=== PATIENT | male | born 1955 | race Two or more races ===

== ENCOUNTER 2023-03-26 04:24 | Emergency (ER) | payer MEDICARE, OTHER, BC, SELFPAY ==
[2023-03-26] VITALS (10 sets, daily range): BP systolic 120–180; BP diastolic 68–100; PULSE 63–99; RESP 18–20; TEMP 36.7; O2SAT 97–100; BMI 29.1
--- NOTE | 2023-03-26 04:52 | ED_ITS ---
HPI - Epistaxis General Chief Complaint: Epistaxis Stated Complaint: nose bleed Time Seen by Provider: 03/26/23 04:51 Source: patient Mode of arrival: walk-in Limitations: no limitations History of Present Illness HPI Narrative: states bleeding right nostril since yesterday. Denies injury. No associated headache. Not short of breath. Did not tolerate nasal pincher. States it made the blood run down the back of his throat Location: Yes right nares Related Data Home Medications Medication Instructions Recorded Confirmed amlodipine 10 mg tablet 10 mg PO DAILY 03/26/23 03/26/23 hydralazine 100 mg tablet 100 mg PO TID 03/26/23 03/26/23 labetalol 200 mg tablet 200 mg PO Q12H 03/26/23 03/26/23 Previous Rx's Medication Instructions Recorded amoxicillin 500 mg capsule 500 mg PO TID #12 caps 03/26/23 Allergies Allergy/AdvReac Type Severity Reaction Status Date / Time No Known Drug Allergies Allergy Verified 03/26/23 04:32 Review of Systems ROS Status of ROS 10 or more systems reviewed and unremarkable except as noted in history and below PFSH PFS Social History Smoking status: Never smoker Exam Constitutional Vital Signs, click to edit/add: Last Vital Signs Temp 98.0 F 03/26/23 04:27 Pulse 63 03/26/23 12:54 Resp 18 03/26/23 12:54 BP 140/86 03/26/23 12:54 Pulse Ox 99 03/26/23 12:54 O2 Del Method Room Air 03/26/23 04:27 Common normals: no apparent distress, average body habitus, oriented x3, no limitations, healthy appearing, alert and well nourished [facility] [place] Common normals: normocephalic and head/scalp atraumatic Other: bleeding right nostril Eye Common normals: EOMs intact bilaterally and conjunctivae normal Respiratory Common normals: normal respiratory effort, no retractions and no use of accessory muscles Cardio Common normals: regular rate, regular rhythm, S1 normal heart sound and S2 normal heart sound Extremity Common normals: normal to inspection and full ROM Neuro Common normals: CN's II-XII intact bilaterally, moves all extremities, no focal motor deficits and no sensory deficits noted Psych Appearance: grossly normal Course Vital Signs Vital signs: Vital Signs Temperature 98.0 F 03/26/23 04:27 Pulse Rate 99 H 03/26/23 04:27 Respiratory Rate 18 03/26/23 04:27 Blood Pressure 180/98 H 03/26/23 04:27 Pulse Oximetry 100 03/26/23 04:27 Oxygen Delivery Method Room Air 03/26/23 04:27 Temperature 98.0 F 03/26/23 04:27 Pulse Rate 63 03/26/23 12:54 Respiratory Rate 18 03/26/23 12:54 Blood Pressure 140/86 03/26/23 12:54 Pulse Oximetry 99 03/26/23 12:54 Oxygen Delivery Method Room Air 03/26/23 04:27 MDM - Epistaxis MDM Narrative Medical decision making narrative: presents bleeding right nostril that started yesterday. No injury. Hgb acceptalbe and Plt. count WNL. Bleeding controlled with rhino rocket. Patient observed in the department and started bleeding again. He had sneezed and the packing extruded some. I then deflated the packing and then re seated it. The bleeding was slowing down and his care was transferred to Dr Jules at change of shift Lab Data Labs: Lab Results 03/26/23 Range/Units 05:05 WBC 9.8 (4.0-11.0) 10^3/uL RBC 3.63 L (4.70-6.10) 10^6/uL Hgb 11.4 L (14.0-18.0) g/dL Hct 34.7 L (42.0-54.0) % MCV 95.6 H (80.0-94.0) fL MCH 31.4 (25.9-34.0) pg MCHC 32.9 (29.9-35.2) g/dL RDW 14.3 (11.0-15.0) % Plt Count 231 (150-450) 10^3/uL MPV 10.7 (9.5-13.5) fL Neut % (Auto) 77.6 H (43.0-75.0) % Lymph % (Auto) 13.7 L (20.5-60.0) % [place] % (Auto) 4.7 (1.7-12.0) % Eos % (Auto) 2.5 (0.9-7.0) % Baso % (Auto) 1.1 (0.2-2.0) % Neut # (Auto) 7.6 H (1.4-6.5) 10^3/uL Lymph # (Auto) 1.4 (1.2-3.8) 10^3/uL [place] # (Auto) 0.5 (0.3-0.8) 10^3/uL Eos # (Auto) 0.3 (0.0-0.7) 10^3/uL Baso # (Auto) 0.1 (0.0-0.1) 10^3/uL Abs Immat Gran (auto) 0.04 H (0.00-0.03) 10^3/uL Imm/Tot Granulo (auto) 0.4 (0.0-0.5) % Sodium 138 (136-145) mmol/L Potassium 4.2 (3.5-5.1) mmol/L Chloride 104 (98-107) mmol/L Carbon Dioxide 24.4 (21.0-32.0) mmol/L Anion Gap 13.8 BUN 30.0 H (7.0-18.0) mg/dL Creatinine 1.48 H (0.70-1.30) mg/dL Est GFR ( Amer) 57 L (>=60) Est GFR (Non-Af Amer) 47 L (>=60) BUN/Creatinine Ratio 20.3 Glucose 133 H (74-106) mg/dL Calcium 9.2 (8.5-10.1) mg/dL Discharge Plan Discharge Chief Complaint: Epistaxis Clinical Impression: Epistaxis Patient Disposition: Home, Self-Care Time of Disposition Decision: 13:15 Condition: Good Mode of Transportation: Private Vehicle Prescriptions / Home Meds: New amoxicillin 500 mg capsule 500 mg PO TID Qty: 12 0RF No Action labetalol 200 mg tablet 200 mg PO Q12H hydralazine 100 mg tablet 100 mg PO TID amlodipine 10 mg tablet 10 mg PO DAILY Instructions: Nosebleed (ED) Additional Instructions: packing to be removed in three days. Follow-up with Dr. Rodriguez Stand Alone Forms: Portal Instructions Referrals: Physician,Non-Staff, MD [Primary Care Provider] - 1 week Discharge Date/Time: 03/26/23 13:34 Procedures ED Procedure Instructions Procedures Procedures: right nostril bleed. rhino rocket placed without incident. Tolerated well and bleeding controlled. Oral pharynx clear. Patient observed in the department
[2023-03-26 05:11] LABS: Basophils Absolute Auto 0.1 10^3/uL (0.0-0.1); Basophils Percent Auto 1.1 % (0.2-2.0); Eosinophils Absolute Auto 0.3 10^3/uL (0.0-0.7); Eosinophils Percent Auto 2.5 % (0.9-7.0); Hematocrit 34.7 % (42.0-54.0); Hemoglobin 11.4 g/dL (14.0-18.0); Immature Granulocytes Abs Auto 0.04 10^3/uL (0.00-0.03); Immature Granulocytes Pct Auto 0.4 % (0.0-0.5); Lymphocytes Absolute Auto 1.4 10^3/uL (1.2-3.8); Lymphocytes Percent Auto 13.7 % (20.5-60.0); Mean Corpuscular HGB Conc 32.9 g/dL (29.9-35.2); Mean Corpuscular Hemoglobin 31.4 pg (25.9-34.0); Mean Corpuscular Volume 95.6 fL (80.0-94.0); Mean Platelet Volume 10.7 fL (9.5-13.5); Monocytes Absolute Auto 0.5 10^3/uL (0.3-0.8); Monocytes Percent Auto 4.7 % (1.7-12.0); Neutrophils Absolute Auto 7.6 10^3/uL (1.4-6.5); Neutrophils Percent Auto 77.6 % (43.0-75.0); Platelet Count 231 10^3/uL (150-450); Red Blood Count 3.63 10^6/uL (4.70-6.10); Red Cell Distribution Width 14.3 % (11.0-15.0); White Blood Count 9.8 10^3/uL (4.0-11.0)
[2023-03-26 05:19] LABS: Anion Gap 13.8; BUN Creatinine Ratio 20.3; Calcium 9.2 mg/dL (8.5-10.1); Carbon Dioxide 24.4 mmol/L (21.0-32.0); Chloride 104 mmol/L (98-107); Estimated GFR (African America 57 (>=60); Estimated GFR (Non-African Ame 47 (>=60); Glucose 133 mg/dL (74-106); Potassium 4.2 mmol/L (3.5-5.1); Sodium 138 mmol/L (136-145)
[2023-03-26] MEDS: AMOXICILLIN 500 MG CAPSULE 1000 MG PO (06:30)
[2023-03-26] MEDS: LORAZEPAM 2 MG/ML 1 ML VIAL 1 MG IV (09:26)
--- NOTE | 2023-03-26 13:17 | ED_ITS ---
HPI - Epistaxis General Chief Complaint: Epistaxis Stated Complaint: nose bleed Time Seen by Provider: 03/26/23 04:51 Source: patient Mode of arrival: walk-in Limitations: no limitations History of Present Illness HPI Narrative: the patient was initially seen by Dr. Rapp and signed out to me after discussing the case with him thoroughly. Please see his full history and physical exam. Related Data Home Medications Medication Instructions Recorded Confirmed amlodipine 10 mg tablet 10 mg PO DAILY 03/26/23 03/26/23 hydralazine 100 mg tablet 100 mg PO TID 03/26/23 03/26/23 labetalol 200 mg tablet 200 mg PO Q12H 03/26/23 03/26/23 Previous Rx's Medication Instructions Recorded amoxicillin 500 mg capsule 500 mg PO TID #12 caps 03/26/23 Allergies Allergy/AdvReac Type Severity Reaction Status Date / Time No Known Drug Allergies Allergy Verified 03/26/23 04:32 PFSH PFSH Social History Smoking status: Never smoker Exam Constitutional Vital Signs, click to edit/add: Last Vital Signs Temp 98.0 F 03/26/23 04:27 Pulse 63 03/26/23 12:54 Resp 18 03/26/23 12:54 BP 140/86 03/26/23 12:54 Pulse Ox 99 03/26/23 12:54 O2 Del Method Room Air 03/26/23 04:27 Course Vital Signs Vital signs: Vital Signs Temperature 98.0 F 03/26/23 04:27 Pulse Rate 99 H 03/26/23 04:27 Respiratory Rate 18 03/26/23 04:27 Blood Pressure 180/98 H 03/26/23 04:27 Pulse Oximetry 100 03/26/23 04:27 Oxygen Delivery Method Room Air 03/26/23 04:27 Temperature 98.0 F 03/26/23 04:27 Pulse Rate 63 03/26/23 12:54 Respiratory Rate 18 03/26/23 12:54 Blood Pressure 140/86 03/26/23 12:54 Pulse Oximetry 99 03/26/23 12:54 Oxygen Delivery Method Room Air 03/26/23 04:27 MDM - Epistaxis MDM Narrative Medical decision making narrative: the patient had already been packed in the right [place]. He had some subsequent bleeding and that packing self extruded. A new 5.5 cm anterior packing was applied by me and inflated with no further bleeding but this one also had self extruded partially so it was removed. A 7 cm anterior posterior packing was then applied and this one remained in place and he didn't have any subsequent significant bleeding. He was observed here and seemed to be anxious. He was given IV Ativan and then was able to rest and ultimately was discharged home. He'll have the packing removed in three days and was prescribed prophylactic amoxicillin. Findings are discussed with the patient and his family. Differential Diagnosis Differential diagnosis: Likely anterior epistaxis and posterior epistaxis Lab Data Attestation: I reviewed the patient's lab results. Labs: Lab Results 03/26/23 Range/Units 05:05 WBC 9.8 (4.0-11.0) 10^3/uL RBC 3.63 L (4.70-6.10) 10^6/uL Hgb 11.4 L (14.0-18.0) g/dL Hct 34.7 L (42.0-54.0) % MCV 95.6 H (80.0-94.0) fL MCH 31.4 (25.9-34.0) pg MCHC 32.9 (29.9-35.2) g/dL RDW 14.3 (11.0-15.0) % Plt Count 231 (150-450) 10^3/uL MPV 10.7 (9.5-13.5) fL Neut % (Auto) 77.6 H (43.0-75.0) % Lymph % (Auto) 13.7 L (20.5-60.0) % [place] % (Auto) 4.7 (1.7-12.0) % Eos % (Auto) 2.5 (0.9-7.0) % Baso % (Auto) 1.1 (0.2-2.0) % Neut # (Auto) 7.6 H (1.4-6.5) 10^3/uL Lymph # (Auto) 1.4 (1.2-3.8) 10^3/uL [place] # (Auto) 0.5 (0.3-0.8) 10^3/uL Eos # (Auto) 0.3 (0.0-0.7) 10^3/uL Baso # (Auto) 0.1 (0.0-0.1) 10^3/uL Abs Immat Gran (auto) 0.04 H (0.00-0.03) 10^3/uL Imm/Tot Granulo (auto) 0.4 (0.0-0.5) % Sodium 138 (136-145) mmol/L Potassium 4.2 (3.5-5.1) mmol/L Chloride 104 (98-107) mmol/L Carbon Dioxide 24.4 (21.0-32.0) mmol/L Anion Gap 13.8 BUN 30.0 H (7.0-18.0) mg/dL Creatinine 1.48 H (0.70-1.30) mg/dL Est GFR ( Amer) 57 L (>=60) Est GFR (Non-Af Amer) 47 L (>=60) BUN/Creatinine Ratio 20.3 Glucose 133 H (74-106) mg/dL Calcium 9.2 (8.5-10.1) mg/dL Discharge Plan Discharge Chief Complaint: Epistaxis Clinical Impression: Epistaxis Patient Disposition: Home, Self-Care Time of Disposition Decision: 13:15 Condition: Good Mode of Transportation: Private Vehicle Prescriptions / Home Meds: New amoxicillin 500 mg capsule 500 mg PO TID Qty: 12 0RF No Action labetalol 200 mg tablet 200 mg PO Q12H hydralazine 100 mg tablet 100 mg PO TID amlodipine 10 mg tablet 10 mg PO DAILY Instructions: Nosebleed (ED) Additional Instructions: packing to be removed in three days. Follow-up with Dr. Rodriguez Stand Alone Forms: Portal Instructions Referrals: Physician,Non-Staff, MD [Primary Care Provider] - 1 week
== END 2023-03-26 13:34 | disposition home or self-care (01) ==
PROVIDERS: Internal Medicine; Emergency Provider Emergency Medicine
DX: R04.0 Epistaxis (principal); Z79.899 Other long term (current) drug therapy
CPT/HCPCS: 30901; 36415; 80048; 85025; 96374; 99284

== ENCOUNTER 2023-03-29 12:48 | Emergency (ER) | payer MEDICARE, BC, OTHER, SELFPAY ==
[2023-03-29 13:12] VITALS: BP 160/125; PULSE 58; RESP 18; TEMP 36.8; O2SAT 100; BMI 29.1
--- NOTE | 2023-03-29 14:02 | ED.GENADUL1 ---
HPI - General Adult General Chief complaint: Recheck/Abnormal Lab/Rx Stated complaint: [employer] REMOVAL Time Seen by Provider: 03/29/23 13:16 Source: patient Mode of arrival: walk-in Limitations: no limitations History of Present Illness HPI narrative: 67-year-old male presented as instructed to have packing removed from his nose. He had his packing placed three days ago and hasn't had any troubles. Related Data Home Medications Medication Instructions Recorded Confirmed amlodipine 10 mg tablet 10 mg PO DAILY 03/26/23 03/26/23 hydralazine 100 mg tablet 100 mg PO TID 03/26/23 03/26/23 labetalol 200 mg tablet 200 mg PO Q12H 03/26/23 03/26/23 Previous Rx's Medication Instructions Recorded amoxicillin 500 mg capsule 500 mg PO TID #12 caps 03/26/23 Allergies Allergy/AdvReac Type Severity Reaction Status Date / Time No Known Drug Allergies Allergy Verified 03/26/23 04:32 Review of Systems ROS Narrative A ten point review of systems is negative except as noted above. PFSH PFSH Social History Smoking status: Never smoker Exam Narrative Exam Narrative: Nurses note and vital signs reviewed and patient is not hypoxic. General: The patient appears well and in no apparent distress. Patient is resting comfortably on cart. Skin: Warm, dry, no pallor noted. There is no rash noted. Head: Normocephalic, atraumatic Eye: Normal conjunctiva, no drainage, Ears, Nose, Mouth, and Throat: oral mucosa is moist. packing in place in the right nare Cardiovascular: not tachycardic Respiratory: Patient is in no distress, no accessory muscle use, lungs are clear to auscultation, no wheezing, rales or rhonchi Back: non-tender GI: nontender Musculoskeletal: The patient has no evidence of calf tenderness, no pitting edema, symmetrical pulses noted bilaterally Neurological: A&O, normal speech Psychiatric: Cooperative Constitutional Vital Signs, click to edit/add: Last Vital Signs Temp 98.3 F 03/29/23 13:12 Pulse 58 L 03/29/23 13:12 Resp 18 03/29/23 13:12 BP 160/125 H 03/29/23 13:12 Pulse Ox 100 03/29/23 13:12 O2 Del Method Room Air 03/29/23 13:12 Course Vital Signs Vital signs: Vital Signs Temperature 98.3 F 03/29/23 13:12 Pulse Rate 58 L 03/29/23 13:12 Respiratory Rate 18 03/29/23 13:12 Blood Pressure 160/125 H 03/29/23 13:12 Pulse Oximetry 100 03/29/23 13:12 Oxygen Delivery Method Room Air 03/29/23 13:12 Temperature 98.3 F 03/29/23 13:12 Pulse Rate 58 L 03/29/23 13:12 Respiratory Rate 18 03/29/23 13:12 Blood Pressure 160/125 H 03/29/23 13:12 Pulse Oximetry 100 03/29/23 13:12 Oxygen Delivery Method Room Air 03/29/23 13:12 Medical Decision Making MDM Narrative Medical decision making narrative: I have removed his packing. He was observed for and adequate amount of time and he had no further bleeding and he is able to be discharged. Discharge Plan Discharge Chief Complaint: Recheck/Abnormal Lab/Rx Clinical Impression: Encounter for removal of nasal packing Patient Disposition: Home, Self-Care Time of Disposition Decision: 14:01 Condition: Good Mode of Transportation: Private Vehicle Prescriptions / Home Meds: No Action labetalol 200 mg tablet 200 mg PO Q12H hydralazine 100 mg tablet 100 mg PO TID amlodipine 10 mg tablet 10 mg PO DAILY amoxicillin 500 mg capsule 500 mg PO TID Qty: 12 0RF Instructions: Nosebleed (ED) Additional Instructions: Follow-up with Dr. Rodriguez Stand Alone Forms: Portal Instructions Referrals: Physician,Non-Staff, MD [Primary Care Provider] - 1 week
== END 2023-03-29 14:13 | disposition home or self-care (01) ==
PROVIDERS: Emergency Provider Emergency Medicine
DX: Z48.00 Encounter for change or removal of nonsurgical wound dressing (principal)
CPT/HCPCS: 99281

== ENCOUNTER 2023-05-16 13:50 | Observation (INO) | payer MEDICARE, OTHER, BC, SELFPAY ==
[2023-05-16] VITALS (67 sets, daily range): BP systolic 127–194; BP diastolic 83–152; PULSE 69–147; RESP 3–24; TEMP 36.8–37; O2SAT 71–100; BMI 23.0; BMI 26.3
--- NOTE | 2023-05-16 14:23 | XR_ITS ---
The [address] [address] Patient Name: OXANA JOYA MRN: [id number] date: 1955 Sex: M Assigned Patient Location: ER Current Patient Location: ER Accession/Order Number: [id number] Exam Date: 05/16/2023 14:41 Report Date: 05/16/2023 14:58 At the request of: MEETA ALVARADO Procedure: XR chest 1V EXAM: XR chest 1V HISTORY: CHF COMPARISON: Chest study dated 09/16/2015 TECHNIQUE: AP view of the chest was obtained with portable technique at 2:38 PM. FINDINGS: Heart is mildly enlarged. No evidence of consolidated infiltrate. Mild blunting of the right costophrenic angle suggesting small pleural effusion. Slight prominence of interstitial markings may represent edema related to minimal congestive changes. Findings compatible with small scattered calcified granulomas. No obvious pneumothorax. Mild degenerative changes in the dorsal spine. XR/XR chest 1V IMPRESSION: Mild cardiomegaly. Consider possible minimal congestive changes. Likely small scattered calcified granulomas as noted. Electronically authenticated by: EVAN BROWNLEE Date: 05/16/2023 14:58
--- NOTE | 2023-05-16 14:23 | ECG_ITS ---
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
--- NOTE | 2023-05-16 14:23 | US_ITS ---
The [place] [id number] Patient Name: OXANA JOYA MRN: [id number] date: 1955 Sex: M Assigned Patient Location: ER Current Patient Location: ER Accession/Order Number: [id number] Exam Date: 05/16/2023 15:30 Report Date: 05/16/2023 16:30 At the request of: MEETA ALVARADO Procedure: US venous doppler LE BI EXAMINATION: US venous doppler LE BI HISTORY: DVT COMPARISON: None. TECHNIQUE: Venous duplex examination performed using B-mode, color flow and spectral analysis. FINDINGS: Bilateral external iliac, common femoral, femoral and popliteal veins are patent by color flow evaluation and lanier scale imaging with compressibility. Visualized portions of the bilateral posterior tibial and peroneal veins are compressible with color flow. Bilateral subcutaneous edema. US/US venous doppler LE BI IMPRESSION: Negative for bilateral lower extremity DVT. Electronically authenticated by: MATTHEW CARDOSO Date: 05/16/2023 16:30
--- NOTE | 2023-05-16 14:31 | ED_ITS ---
HPI - General Adult General Chief complaint: Arrhythmia/Palpitations Stated complaint: bilateral leg swelling Time Seen by Provider: 05/16/23 14:00 Source: patient Mode of arrival: walk-in History of Present Illness HPI narrative: Patient is a 67-year-old male with a history of A-fib and previous CVA who presents to the emergency department with his Family member for the evaluation of bilateral lower extremity swelling over the last several days. He reports significant fluid drainage from the legs. He reports shortness of breath on exertion. He denies fevers, chest pain, nausea, vomiting. He takes a baby aspirin daily, he is noted to be in rapid A-fib on arrival to the ER. His family member states that he had a cardioversion for A-fib approximately 3 years ago, he was on anticoagulation but can no longer afford it so he stopped taking it approximately 2 years ago. Related Data Home Medications Medication Instructions Recorded Confirmed amlodipine 10 mg tablet 10 mg PO DAILY 03/26/23 05/16/23 hydralazine 100 mg tablet 100 mg PO TID 03/26/23 05/16/23 labetalol 200 mg tablet 200 mg PO Q12H 03/26/23 05/16/23 aspirin 81 mg tablet,delayed 81 mg PO DAILY 05/16/23 05/16/23 release (Adult Low Dose Aspirin) Allergies Allergy/AdvReac Type Severity Reaction Status Date / Time No Known Drug Allergies Allergy Verified 03/26/23 04:32 Review of Systems ROS Constitutional Denies: fever or chills Ears, nose, mouth, and throat Denies: throat pain or nasal congestion Cardiovascular Denies: chest pain Respiratory Reports: shortness of breath; Denies: cough Gastrointestinal Denies: nausea or vomiting Genitourinary Denies: painful urination Musculoskeletal Reports: extremity swelling; Denies: back pain or neck pain Integumentary/Breast Denies: rash Neurological Denies: headache Endocrine Denies: excessive urination [facility] Medical History (Updated 05/16/23 @ 15:41 by KRYSTYNA Espinoza) Atrial fibrillation ?I48.91 - Unspecified atrial fibrillation (ICD-10) Hypertension ?I10 - Essential (primary) hypertension (ICD-10) Social History Smoking status: Never smoker Exam Narrative Exam Narrative: Gen.: Awake, alert, in no distress Head: Normocephalic, atraumatic ENT: Moist mucous membranes Respiratory: No respiratory distress, lungs clear bilaterally Cardio: Irregular, tachycardia Extremities: Moves extremities equally, Bilateral lower extremities are edematous, pitting edema noted with multiple small open wounds, no surrounding erythema or blanching erythema of the extremities. Psych: Normal mood and affect Neuro: No focal neuro deficit Skin: Warm, dry, intact Constitutional Vital Signs, click to edit/add: Last Vital Signs Temp 98.6 F 05/16/23 14:00 Pulse 84 05/16/23 15:30 Resp 14 05/16/23 15:30 BP 150/100 H 05/16/23 14:58 Pulse Ox 98 05/16/23 15:10 O2 Del Method Room Air 05/16/23 14:00 Course Vital Signs Vital signs: Vital Signs Temperature 98.6 F 05/16/23 14:00 Pulse Rate 70 05/16/23 14:00 Respiratory Rate 18 05/16/23 14:00 Blood Pressure 149/128 H 05/16/23 14:00 Pulse Oximetry 98 05/16/23 14:00 Oxygen Delivery Method Room Air 05/16/23 14:00 Temperature 98.6 F 05/16/23 14:00 Pulse Rate 84 05/16/23 15:30 Respiratory Rate 14 05/16/23 15:30 Blood Pressure 150/100 H 05/16/23 14:58 Pulse Oximetry 98 05/16/23 15:10 Oxygen Delivery Method Room Air 05/16/23 14:00 Medical Decision Making MDM Narrative Medical decision making narrative: Studies reviewed and noted showing the patient has significantly elevated BNP but normal troponin and stable chronic kidney disease. He was given IV Cardizem with significant improvement of his heart rate and some improvement of his blood pressure. He was given a shot of Lovenox with the Cardizem. Ultrasound performed for the lower extremities to rule out DVT and chest x-ray shows cardiomegaly with mild pulmonary vascular congestion. Patient will be admitted for diuresis, Areans catheter placed and he is admitted to the hospitalist. Bumex to be initiated by Dr. Nam. Medical Records Medical records reviewed: Yes I reviewed the patient's medical records Lab Data Lab results reviewed: Yes I reviewed the patient's lab results Labs: Lab Results 05/16/23 Range/Units 14:20 WBC 10.7 (4.0-11.0) 10^3/uL RBC 3.78 L (4.70-6.10) 10^6/uL Hgb 9.6 L (14.0-18.0) g/dL Hct 31.9 L (42.0-54.0) % MCV 84.4 (80.0-94.0) fL MCH 25.4 L (25.9-34.0) pg MCHC 30.1 (29.9-35.2) g/dL RDW 17.9 H (11.0-15.0) % Plt Count 293 (150-450) 10^3/uL MPV 10.4 (9.5-13.5) fL Neut % (Auto) 81.5 H (43.0-75.0) % Lymph % (Auto) 9.6 L (20.5-60.0) % [place] % (Auto) 7.1 (1.7-12.0) % Eos % (Auto) 0.6 L (0.9-7.0) % Baso % (Auto) 0.8 (0.2-2.0) % Neut # (Auto) 8.8 H (1.4-6.5) 10^3/uL Lymph # (Auto) 1.0 L (1.2-3.8) 10^3/uL [place] # (Auto) 0.8 (0.3-0.8) 10^3/uL Eos # (Auto) 0.1 (0.0-0.7) 10^3/uL Baso # (Auto) 0.1 (0.0-0.1) 10^3/uL Abs Immat Gran (auto) 0.04 H (0.00-0.03) 10^3/uL Imm/Tot Granulo (auto) 0.4 (0.0-0.5) % PT 11.3 (9.0-11.6) sec INR 1.07 Sodium 137 (136-145) mmol/L Potassium 3.7 (3.5-5.1) mmol/L Chloride 105 (98-107) mmol/L Carbon Dioxide 24.4 (21.0-32.0) mmol/L Anion Gap 11.3 BUN 23.0 H (7.0-18.0) mg/dL Creatinine 1.46 H (0.70-1.30) mg/dL Est GFR ( Amer) 58 L (>=60) Est GFR (Non-Af Amer) 48 L (>=60) BUN/Creatinine Ratio 15.8 Glucose 115 H (74-106) mg/dL Lactate 1.7 (0.4-2.0) mmol/L Calcium 8.2 L (8.5-10.1) mg/dL Total Bilirubin 0.5 (0.2-1.0) mg/dL AST 22 (15-37) U/L ALT 41 (16-63) U/L Alkaline Phosphatase 84 (46-116) U/L Troponin I High Sens 31.4 (4.0-76.1) pg/mL NT-Pro-B Natriuret Pep 9141.0 H* (<=900.0) pg/mL Total Protein 6.5 (6.4-8.2) g/dL Albumin 2.7 L (3.4-5.0) g/dL Globulin 3.8 g/dL Albumin/Globulin Ratio 0.7 Imaging Data Chest x-ray: Attestation: I have reviewed the pertinent imaging results. Radiologist's impression: ITS Impressions Chest X-Ray 05/16/23 14:23 IMPRESSION: Mild cardiomegaly. Consider possible minimal congestive changes. Likely small scattered calcified granulomas as noted. Electronically authenticated by: EVAN BROWNLEE Date: 05/16/2023 14:58 ECG Data Attestation: I personally reviewed and interpreted this ECG as follows: (Atrial fibrillation with rapid ventricular response at a rate of [address] depression and no acute ST elevation or ectopy. EKG reviewed by attending physician) Discharge Plan Discharge Chief Complaint: Arrhythmia/Palpitations Clinical Impression: CHF (congestive heart failure), Edema, peripheral, Atrial fibrillation with rapid ventricular response Patient Disposition: Admitted as Observation Time of Disposition Decision: 15:41
[2023-05-16 14:40] LABS: Basophils Absolute Auto 0.1 10^3/uL (0.0-0.1); Basophils Percent Auto 0.8 % (0.2-2.0); Eosinophils Absolute Auto 0.1 10^3/uL (0.0-0.7); Eosinophils Percent Auto 0.6 % (0.9-7.0); Hematocrit 31.9 % (42.0-54.0); Hemoglobin 9.6 g/dL (14.0-18.0); Immature Granulocytes Abs Auto 0.04 10^3/uL (0.00-0.03); Immature Granulocytes Pct Auto 0.4 % (0.0-0.5); Lymphocytes Percent Auto 9.6 % (20.5-60.0); Mean Corpuscular HGB Conc 30.1 g/dL (29.9-35.2); Mean Corpuscular Hemoglobin 25.4 pg (25.9-34.0); Mean Corpuscular Volume 84.4 fL (80.0-94.0); Mean Platelet Volume 10.4 fL (9.5-13.5); Monocytes Absolute Auto 0.8 10^3/uL (0.3-0.8); Monocytes Percent Auto 7.1 % (1.7-12.0); Neutrophils Absolute Auto 8.8 10^3/uL (1.4-6.5); Neutrophils Percent Auto 81.5 % (43.0-75.0); Platelet Count 293 10^3/uL (150-450); Red Blood Count 3.78 10^6/uL (4.70-6.10); Red Cell Distribution Width 17.9 % (11.0-15.0); White Blood Count 10.7 10^3/uL (4.0-11.0)
[2023-05-16] MEDS: DILTIAZEM HCL 25 MG/5 ML VIAL 10 MG IV ×2 (14:43→18:41)
[2023-05-16] MEDS: ENOXAPARIN SODIUM 80 MG/0.8 ML SYRINGE SUBQ (14:44)
[2023-05-16 14:54] LABS: INR 1.07; Prothrombin Time 11.3 sec (9.0-11.6)
[2023-05-16 14:56] LABS: Alanine Aminotransferase 41 U/L (16-63); Albumin Globulin Ratio 0.7; Albumin Level 2.7 g/dL (3.4-5.0); Alkaline Phosphatase 84 U/L (46-116); Anion Gap 11.3; Aspartate Amino Transferase 22 U/L (15-37); BUN Creatinine Ratio 15.8; Bilirubin Total 0.5 mg/dL (0.2-1.0); Calcium 8.2 mg/dL (8.5-10.1); Carbon Dioxide 24.4 mmol/L (21.0-32.0); Chloride 105 mmol/L (98-107); Estimated GFR (African America 58 (>=60); Estimated GFR (Non-African Ame 48 (>=60); Globulin 3.8 g/dL; Glucose 115 mg/dL (74-106); Potassium 3.7 mmol/L (3.5-5.1); Sodium 137 mmol/L (136-145); Total Protein 6.5 g/dL (6.4-8.2)
[2023-05-16 14:58] LABS: Lactate/Lactic Acid 1.7 mmol/L (0.4-2.0)
[2023-05-16 14:59] LABS: Troponin I High Sensitivity 31.4 pg/mL (4.0-76.1)
--- NOTE | 2023-05-16 16:38 | CA_ITS ---
Patient Name: OXANA JOYA MR#: [id number] : 1955 Exam Date: 05/17/2023 Ordering Doctor: DR RAMON SUTHERLAND . ECHOCARDIOGRAM REPORT PROCEDURE: CA ECHO DOPPLER COMPLETE INDICATIONS: Dyspnea, atrial fibrillation, congestive heart failure, hypertension, chronic kidney disease COMPARISON: None. DESCRIPTION: COMPLETE ECHOCARDIOGRAM Real-time transthoracic echocardiography with 2D, M-mode, spectral and color flow Doppler performed. QUALITY: Technical quality was good. 72 , 169#, BSA 1.98 m2 LEFT VENTRICLE: Normal chamber size. Moderate concentric left ventricular hypertrophy. LV EF: Global left ventricular systolic function is mildly reduced; visually estimated ejection fraction is 40-45%. Diffuse hypokinesis. DIASTOLIC: Not adequately assessed due to heart rhythm. ATRIAL SEPTUM: Visually appears intact. LEFT ATRIUM: Severe dilatation. RIGHT ATRIUM: Severe dilatation. RIGHT VENTRICLE: Moderate dilatation. Systolic function appears reduced. TRICUSPID VALVE: Normal mobility and thickness. Mild regurgitation. Doppler studies reveal mildly (35-45) elevated right sided pressures. RVSP 36 mmHg MITRAL VALVE: Normal mobility and thickness. Mild mitral annular calcification. Trivial mitral regurgitation. AORTIC VALVE: Normal trileaflet appearance. Thickened aortic valve. Normal leaflet mobility. No evidence of aortic valve stenosis. Trivial aortic regurgitation. AORTIC ROOT: Poorly seen; appears mildly enlarged. PULMONIC VALVE: Normal thickness and mobility. No stenosis. No regurgitation. PERICARDIUM: No evidence of pericardial effusion. IVC: IVC is normal in size with no collapse. CONCLUSION: 1. Global left ventricular systolic function is mildly reduced; visually estimated ejection fraction is 40 to 45% 2. The right ventricle is moderately dilated with reduced systolic function 3. Severe biatrial enlargement 4. Moderately increased left ventricular wall thickness 5. Mild tricuspid regurgitation 6. Mild elevated right ventricular systolic pressure; RVSP 36 mmHg Adult Echocardiography Procedure Report Left Ventricle LVEDD (3.7 - 5.6 cm): 4.65 cm LVESD (2.2 - 4.0 cm): 3.36 cm LVIVS thickness (0.6 - 1.2 cm): 1.28 cm LVPW thickness (0.5 - 1.0 cm): 1.46 cm LVOT Max Gradient: 2.02 mm[Hg], 2.75 mm[Hg] LVOT Area (cm2): 0.77 m/s Peak Velocity (LVOT): 0.71 m/s, 0.83 m/s LVOT Diameter 2.43 cm Left Ventricular Ejection Fraction: 38.61 % Left Atrium LA Volume Index (2D A2C): 74.83 ml/m2 Left Atrium Systolic Dimension: 4.10 cm Mitral Valve Mitral Valve E-Wave Peak Velocity: 0.71 m/s Right Ventricle Aorta AO Root Diam: 4.08 cm Aortic Valve AoV Area (Peak [place]in): 2.89 cm2, 3.00 cm2, 2.80 cm2 Peak Velocity(Antegrade Flow): 1.09 m/s, 1.37 m/s Peak Gradient(Antegrade Flow): 4.79 mm[Hg], 7.49 mm[Hg] Tricuspid Valve Peak Velocity (Regurgitant Flow): 2.62 m/s Pulmonic Valve Mean Gradient: 1.47 mm[Hg], 1.60 mm[Hg] Mean Velocity: 0.59 m/s, 0.61 m/s Peak Velocity: 0.77 m/s, 0.83 m/s Peak Gradient: 2.78 mm[Hg], 2.16 mm[Hg], 2.66 mm[Hg] Right Atrium Right Atrium Systolic Pressure: 85.03 ml, 85.03 ml Dictated by: Tameka Contreras M.D. on 05/18/2023 at 08:56 Approved by: Tameka Contreras M.D. on 05/18/2023 at 09:00
--- NOTE | 2023-05-16 16:44 | P.HP_ITS ---
H&P: HPI History of Present Illness Chief complaint: bilateral leg swelling CHF Peripheral Edema A Fib Narrative: Asked to see patient in ER secondary to increasing shortness of breath and patient found to have acute combined congestive heart failure. Patient denies chest pain, just the shortness of breath. So far troponins in ER negative. Patient will be admitted for workup and treatment of same Review of Systems ROS Status of ROS 10 or more systems reviewed and unremark able except as noted in history and below [facility] Medical History (Updated 05/16/23 @ 15:41 by KRYSTYNA Espinoza) Atrial fibrillation ?I48.91 - Unspecified atrial fibrillation (ICD-10) Hypertension ?I10 - Essential (primary) hypertension (ICD-10) Social History Smoking status: Never smoker Meds Home Medications and Allergies Home Medications Medication Instructions Recorded Confirmed Type amlodipine 10 mg tablet 10 mg PO DAILY 03/26/23 05/16/23 History hydralazine 100 mg tablet 100 mg PO TID 03/26/23 05/16/23 History labetalol 200 mg tablet 200 mg PO Q12H 03/26/23 05/16/23 History aspirin 81 mg tablet,delayed 81 mg PO DAILY 05/16/23 05/16/23 History release (Adult Low Dose Aspirin) Allergies Allergy/AdvReac Type Severity Reaction Status Date / Time No Known Drug Allergies Allergy Verified 03/26/23 04:32 Exam Constitutional Vital Signs, click to edit/add: Last Vital Signs Temp 98.6 F 05/16/23 14:00 Pulse 84 05/16/23 15:30 Resp 14 05/16/23 15:30 BP 150/100 H 05/16/23 14:58 Pulse Ox 98 05/16/23 15:10 O2 Del Method Room Air 05/16/23 14:00 Documenting provider has reviewed patient's vital signs: yes Common normals: no apparent distress Chest Common normals: inspection of chest normal Respiratory Common normals: normal respiratory effort Effort & inspection: able to speak in complete sentences Auscultation: rales (lower 1/3) Cardio Common normals: irregular rate and irregular rhythm Rate: tachycardic Rhythm: abnormal rhythm GI Common normals: Normal to inspection, nondistended, normoactive bowel sounds present Extremity Other: 3+ edema with possible early cellulitis open wound Left leg Results Labs Labs: Short CBC 05/16/23 Range/Units 14:20 WBC 10.7 (4.0-11.0) 10^3/uL Hgb 9.6 L (14.0-18.0) g/dL Hct 31.9 L (42.0-54.0) % Plt Count 293 (150-450) 10^3/uL BMP 05/16/23 14:20 Sodium 137 Potassium 3.7 Chloride 105 Carbon Dioxide 24.4 BUN 23.0 H Creatinine 1.46 H Glucose 115 H Calcium 8.2 L Liver Function 05/16/23 Range/Units 14:20 Total Bilirubin 0.5 (0.2-1.0) mg/dL AST 22 (15-37) U/L ALT 41 (16-63) U/L Alkaline Phosphatase 84 (46-116) U/L Albumin 2.7 L (3.4-5.0) g/dL Assessment and Plan Assessment and Plan (1) Atrial fibrillation with rapid ventricular response: (2) Edema, peripheral: (3) CHF (congestive heart failure): Plan Tachycardia with atrial fibrillation with rapid ventricular response with uncontrolled hypertension resulting in acute combined congestive heart failure with significantly elevated BNP. So far troponins are negative, will trend troponins, check echocardiogram, Bumex drip for diuresis. If patient improves quickly possible discharge as quickly as tomorrow. Start patient on Eliquis. Need to see about getting him a prescription for this as an outpatient if getting it covered through his insurance Uncontrolled hypertension-start with home medications, not sure he has been taking them consistently Cellulitis possibly left lower extremity. Will start IV antibiotics and consult to wound therapy Chronic kidney disease stage II-monitor daily, likely complicated with the above treatment for his atrial fibrillation and acute combined congestive heart failure Will start patient off as observation, 50-50 chance of being discharged tomorrow.
--- OUTSIDE RECORDS SUMMARY | 2023-05-16 16:59 | XMS_ITS | CCD ---
Author Name Unknown Address [address] [place] [address] Organization [facility] Care Team Providers Care Brand Marketing Coordinator Name Role Phone MARIBEL, DOCTOR Primary Care Unavailable PAY, PETR Admitting Unavailable PAY, PETR Attending Unavailable PAY, PETR Consulting Unavailable Problems Problem Classification Problem Date Documented Date Episodic/Chronic Cardiac dysrhythmias (1 source) Unspecified atrial fibrillation; Translations: [UNSPECIFIED ATRIAL FIBRILLATION] Onset: 9 Chronic Disorders of lipid metabolism (1 source) Pure hypercholesterolemia, unspecified; Translations: [PURE HYPERCHOLESTEROLEMIA UNSPEC] Onset: 9 Essential hypertension (1 source) Essential (primary) hypertension; Translations: [ESSENTIAL PRIMARY HYPERTENSION] Onset: 9 Chronic Fluid and electrolyte disorders (2 sources) Dehydration; Translations: [Hypokalemia] Onset: Episodic Genitourinary symptoms and ill-defined conditions (3 sources) Hematuria, unspecified; Translations: [HEMATURIA UNSPECIFIED] Onset: 9 Episodic Malaise and fatigue (1 source) Other fatigue; Translations: [OTHER FATIGUE] Onset: 9 Episodic Other aftercare (1 source) 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; Translations: [ASSISTED CURRNT USE ANTICOAGULANTS] Onset: 9 Episodic Other aftercare (1 source) detention (current) use of aspirin; Translations: [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 CURRENT USE OF ASPIRIN] Onset: 9 Episodic Other aftercare (1 source) Other longterm (current) drug therapy; Translations: [OTH ASSISTED CURRENT DRUG THERAPY] Onset: 9 Episodic Urinary tract infections (1 source) Acute cystitis with hematuria; Translations: [ACUTE CYSTITIS WITH HEMATURIA] Onset: 9 Episodic Results Test Name Value Interpretation Reference Range Facil ity CULTURE URINEon 12-16-2018 CULTURE URINE Isolate 1 Escherichia coli >100,000 cfu/ml of ORGANISM 1 Escherichia coli ANTIBIOTIC M.I.C RX STATUS Ampicillin 8 S F Ampicillin/Sulbactam 4 S F Piperacillin/Tazobac bedolla <=4 S F Cefazolin <=4 S F Ceftazidime <=1 S F Ceftriaxone <=1 S F Ertapenem <=0.5 S F Imipenem <=0.25 S F Amikacin <=2 S F Gentamicin <=1 S F Tobramycin <=1 S F Ciprofloxacin <=0.25 S F Levofloxacin <=0.12 S F Nitrofurantoin <=16 S F Trimethoprim/Sulfame thoxazole <=20 S F Normal [facility] Comment on above: Performed By: #### U RCX #### [facility] [address] [place] [address] Rahul Nolan CARDIAC LEONOR ADMITon 019 CK [Catalytic activity/Vol] 116 U/L Normal 55-170 [facility] Comment on above: Performed By: #### L IVER, BMP, CMADM, LIPA #### [facility] [address] [place], [place] [address] Rahul Nolan CK.MB [Mass/Vol] 1.36 ng/mL Normal <=2.37 [facility] Comment on above: Performed By: #### L IVER, BMP, CMADM, LIPA #### [facility] [address] [place], [place] [address] Rahulkeya Doveen INR Coag (Bld) [Relative time] SEE BELOW Normal [facility] Comment on above: Result Comment: <0.0 34 ng/ml NEGATIVE 0.034-0.119 INDETERMINATE 0.120 AMI CUT OFF Performed By: #### L IVER, BMP, CMADM, LIPA #### [facility] [address] [place] [address] Rahul An PHAM 112.0 ng/mL Normal <=121.0 [facility] Comment on above: Performed By: #### L IVER, BMP, CMADM, LIPA #### [facility] [address] [place], [place] [address] Rahul An TROP <0.017 Normal <=0.034 [facility] Comment on above: Performed By: #### L IVER, BMP, CMADM, LIPA #### [facility] [address] [place], [place] [address] Rahul An CBC AUTO DIFFon 12-14-2018 Basophils (Bld) [#/Vol] 0.1 103/ul Normal 0.0-0.1 [facility] Comment on above: Performed By: #### C BC #### [facility] [address] [place] [address] Rahul An Basophils/100 WBC (Bld) 0.7 % Normal 0.2-2.0 [facility] Comment on above: Performed By: #### C BC #### [facility] [address] [place] [address] Rahul An Eosinophils (Bld) [#/Vol] 0.0 103/ul Normal 0.0-0.7 [facility] Comment on above: Performed By: #### C BC #### [facility] [address] [place] [address] Rahul An Eosinophils/100 WBC (Bld) 0.2 % Critically low 0.9-7.0 [facility] Comment on above: Performed By: #### C BC #### [facility] [address] [place] [address] Rahul An Erythrocyte distribution width (RBC) [Ratio] 14.8 % Normal 11.0-15.0 [facility] Comment on above: Performed By: #### C BC #### [facility] [address] [place] [address] Rahul An Hematocrit (Bld) [Volume fraction] 52.1 % Normal 42.0-54.0 [facility] Comment on above: Performed By: #### C BC #### [facility] [address] [place], [place] [address] Rahul An Hemoglobin (Bld) [Mass/Vol] 17.3 g/dL Normal 14.0-18.0 [facility] Comment on above: Performed By: #### C BC #### [facility] [address] [address] Rahul An IG # 0.10 10e3/ul Critically high 0.00-0.03 [facility] Comment on above: Performed By: #### C BC #### [facility] [address] [place], [place] [address] Rahul An IG % 0.6 % Critically high 0.0-0.5 [facility] Comment on above: Performed By: #### C BC #### [facility] [address] [place], [place] [address] Rahul An Lymphocytes (Bld) [#/Vol] 1.9 103/ul Normal 1.2-3.8 [facility] Comment on above: Performed By: #### C BC #### [facility] [address] [place], [place] [address] Rahul An Lymphocytes/100 WBC (Bld) 11.5 % Critically low 20.5-60.0 [facility] Comment on above: Performed By: #### C BC #### [facility] [address] [place], [place] [address] Rahul An MANUAL DIFF REQ NO Normal [facility] Comment on above: Performed By: #### C BC #### [facility] [address] [place], [place] [address] Rahul An MCH (RBC) [Entitic mass] 30.0 pg Normal 25.9-34.0 [facility] Comment on above: Performed By: #### C BC #### [facility] [address] [place], [place] [address] Rahul An MCHC (RBC) [Mass/Vol] 33.2 g/dL Normal 29.9-35.2 [facility] Comment on above: Performed By: #### C BC #### [facility] [address] [place], [place] [address] Rahul An MCV (RBC) [Entitic vol] 90.5 fL Normal 80.0-94.0 [facility] Comment on above: Performed By: #### C BC #### [facility] [address] [place], [place] [address] Rahul Na Monocytes (Bld) [#/Vol] 1.2 103/ul Critically high 0.3-0.8 [facility] Comment on above: Performed By: #### C BC #### [facility] [address] [place], [place] [address] Rahul An Monocytes/100 WBC (Bld) 7.0 % Normal 1.7-12.0 [facility] Comment on above: Performed By: #### C BC #### [facility] [address] [place], [place] [address] Rahul An Neutrophils (Bld) [#/Vol] 13.3 103/ul Critically high 1.4-6.5 [facility] Comment on above: Performed By: #### C BC #### [facility] [address] [place], [place] [address] Rahul An Neutrophils/100 WBC (Bld) 80.0 % Critically high 43.0-75.0 [facility] Comment on above: Performed By: #### C BC #### [facility] [address] [place], [place] [address] Rahul An Platelet mean volume (Bld) [Entitic vol] 9.9 fL Normal 9.5-13.5 [facility] Comment on above: Performed By: #### C BC #### [facility] [address] [place] [address] Rahul An Platelets (Bld) [#/Vol] 366 103/ul Normal 150-450 [facility] Comment on above: Performed By: #### C BC #### [facility] [address] [place] [address] Rahul An RBC (Bld) [#/Vol] 5.76 106/ul Normal 4.70-6.[address] [facility] Comment on above: Performed By: #### C BC #### [facility] [address] [place], [place] [address] Rahul An WBC (Bld) [#/Vol] 16.6 103/ul Critically high 4.0-11.0 [facility] Comment on above: Performed By: #### C BC #### [facility] [address] [place], [place] [address] Rahul An ER URINE PROFILEon 9 Bilirubin [Mass/Vol] MODERATE Normal NEGATIVE [facility] Comment on above: Performed By: #### JANNY CLOUD #### [facility] [address] [place] [address] Rahul An BLOOD LARGE Normal NEGATIVE [facility] Comment on above: Performed By: #### JANNY CLOUD #### [facility] [address] [place] [address] Rahul An Clarity (U) CLEAR Normal [facility] Comment on above: Performed By: #### JANNY CLOUD #### [facility] [address] [place] [address] Rahul An Color (U) DK. ORANGE Normal YELLOW [facility] Comment on above: Performed By: #### JANNY CLOUD #### [facility] [address] [place] [address] Rahul An ERUAHD A micrscopic examination will be performed if indicated. Normal [facility] Comment on above: Performed By: #### JANNY CLOUD #### [facility] [address] [place] [address] Rahul An Glucose [Mass/Vol] Negative Normal NEGATIVE [facility] Comment on above: Performed By: #### JANNY CLOUD #### [facility] [address] [place] [address] Rahul An Ketones Ql (U) TRACE Normal NEGATIVE [facility] [place] Comment on above: Performed By: #### JANNY CLOUD #### [facility] [address] [place] [address] Rahul An Nitrite Ql (U) Positive Normal NEGATIVE [facility] [place] Comment on above: Performed By: #### JANNY CLOUD #### [facility] [address] [place] [address] Rahul An pH (Bld) 6.0 Normal 5-9 [facility] Comment on above: Performed By: #### JANNY CLOUD #### [facility] [address] [place], [place] [address] Rahul An Protein (U) [Mass/Vol] mg/dL Normal [facility] Comment on above: Performed By: #### JANNY CLOUD #### [facility] [address] [place], [place] [address] Rahul An SPEC GRAVITY 1.025 Normal 1.005-<=1.025 [facility] Comment on above: Performed By: #### JANNY CLOUD #### [facility] [address] [place], [place] [address] Rahul An UR MICRO IND INDICATED Normal [facility] Comment on above: Performed By: #### JANNY CLOUD #### [facility] [address] [place], [place] [address] Rahulkeya Nolan Urobilinogen Qn (U) 2.0 EU/dl Normal [facility] Comment on above: Performed By: #### JANNY CLOUD #### [facility] [address] [place], [place] [address] Rahul An WBC (Bld) [#/Vol] SMALL Normal NEGATIVE [facility] Comment on above: Performed By: #### JANNY CLOUD #### [facility] [address] [place], [place] [address] Rahul An LIPASEon 12-14-2018 Lipase [Catalytic activity/Vol] 160.0 U/L Normal 23.0-300.0 [facility] Comment on above: Performed By: #### L IVER, BMP, CMADM, LIPA #### [facility] [address] [place] [address] Rahul An LIVER PROFILEon 12-14-2018 Albumin [Mass/Vol] 3.8 g/dL Normal 3.5-5.0 [facility] Comment on above: Performed By: #### L IVER, BMP, CMADM, LIPA #### [facility] [address] [place], [place] [address] Rahul An Albumin/Globulin [Mass ratio] 0.7 {ratio} Normal [facility] Comment on above: Performed By: #### L IVER, BMP, CMADM, LIPA #### [facility] [address] [place] [address] Rahul An ALP [Catalytic activity/Vol] 84 U/L Normal 38-126 [facility] Comment on above: Performed By: #### L IVER, BMP, CMADM, LIPA #### [facility] [address] [place] [address] Rahul An ALT [Catalytic activity/Vol] 51 U/L Normal 21-72 [facility] Comment on above: Performed By: #### L IVRISA, BMP, CMADM, LIPA #### [facility] [address] [place] [address] Rahul An AST [Catalytic activity/Vol] 22 U/L Normal 17-59 [facility] Comment on above: Performed By: #### L IVER, BMP, CMADM, LIPA #### [facility] [address] [place] [address] Rahul An BILI, CONJUGATED 0.3 mg/dL Normal 0.0-0.3 [facility] Comment on above: Performed By: #### L IVER, BMP, CMADM, LIPA #### [facility] [address] [place] [address] Rahul An Bilirubin Ql (U) 1.2 mg/dL Normal 0.2-1.3 [facility] Comment on above: Performed By: #### L IVER, BMP, CMADM, LIPA #### [facility] [address] [place] [address] Rahul An Globulin (S) [Mass/Vol] 5.3 g/dL Normal [facility] Comment on above: Performed By: #### L IVER, BMP, CMADM, LIPA #### [facility] [address] [place] [address] Rahul An Protein [Mass/Vol] 9.1 g/dL Critically high 6.1-8.2 T [facility] Comment on above: Performed By: #### L IVER, BMP, CMADM, LIPA #### [facility] [address] [place] [address] Rahul An PROF CHEM 8 (BAS METB)on Anion gap [Moles/Vol] 13.0 mmol/L Normal [facility] Comment on above: Performed By: #### L IVER, BMP, CMADM, LIPA #### [facility] [address] [place] [address] Rahul An Calcium [Mass/Vol] 8.5 mg/dL Normal 8.4-10.2 [facility] Comment on above: Performed By: #### L IVER, BMP, CMADM, LIPA #### [facility] [address] [place] [address] Rahul An Chloride [Moles/Vol] 96 mmol/L Critically low 98-107 [facility] Comment on above: Performed By: #### L IVER, BMP, CMADM, LIPA #### [facility] [address] [place] [address] Rahul An CO2 [Moles/Vol] 31.0 mmol/L Critically high 22.0-30.0 [facility] Comment on above: Performed By: #### L IVER, BMP, CMADM, LIPA #### [facility] [address] [place] [address] Rahul An Creatinine [Mass/Vol] 1.53 mg/dL Critically high 0.66-1.25 [facility] Comment on above: Performed By: #### L IVER, BMP, CMADM, LIPA #### [facility] [address] [place] [address] Rahul An EGFR-AF [place] 56 mL/min/1.73m2 Critically low >=60 [facility] Comment on above: Performed By: #### L IVER, BMP, CMADM, LIPA #### [facility] [address] [place] [address] Rahul An EGFR-NON AF [place] 46 mL/min/1.73m2 Critically low >=60 [facility] Comment on above: Performed By: #### L IVER, BMP, CMADM, LIPA #### [facility] [address] [place] [address] Rahul An Glucose [Mass/Vol] 135 mg/dL Critically high 74-106 T [facility] Comment on above: Performed By: #### L IVER, BMP, CMADM, LIPA #### [facility] [address] [place] [address] Rahul An Potassium [Moles/Vol] 3.0 mmol/L Critically low 3.4-5.0 [facility] Comment on above: Performed By: #### L IVER, BMP, CMADM, LIPA #### [facility] [address] [place] [address] Rahul An Sodium [Moles/Vol] 137 mmol/L Normal 137-145 [facility] Comment on above: Performed By: #### L IVER, BMP, CMADM, LIPA #### [facility] [address] [place] [address] Rahul An Urea nitrogen [Mass/Vol] 14.0 mg/dL Normal 9.0-20.0 [facility] Comment on above: Performed By: #### L IVER, BMP, CMADM, LIPA #### [facility] [address] [place] [address] Rahul An Urea nitrogen/Creatinine [Mass ratio] 9.2 mg/mg Normal [facility] Comment on above: Performed By: #### L IVER, BMP, CMADM, LIPA #### [facility] [address] [place] [address] Rahul An PROTIMEon 12-14-2018 INR Coag (PPP) [Relative time] 1.14 {INR} Normal [facility] Comment on above: Performed By: #### P T, PTT #### [facility] [address] [place] [address] Rahul An PT Coag (PPP) [Time] PLEASE NOTE: NORMAL RANGE CHANGE 01-23-2014 DUE TO REAGENT LOT CHANGE Normal [facility] Comment on above: Performed By: #### P T, PTT #### [facility] [address] [place], [place] [address] Rahul An PT Coag (PPP) [Time] 11.8 s Critically high 9.0-11.6 [facility] Comment on above: Performed By: #### P T, PTT #### [facility] [address] [place], [place] [address] Rahul An PT Coag (PPP) [Time] SEE BELOW Normal [facility] Comment on above: Result Comment: FRANK RED INR: 2.0 - 3.0 CONDITIONS NOT LISTED BELOW 2.5 - 3.5 FOR PROSTHETIC HEART VALVE REPLACEMENT 2.5 - 3.5 RECURRENT THROMBOSIS Performed By: #### P T, PTT #### [facility] [address] [place], [place] [address] Rahul An PTTon 12-14-2018 aPTT Coag (Bld) [Time] 35.0 s Normal 22.3-36.2 [facility] Comment on above: Performed By: #### P T, PTT #### [facility] [address] [place] [address] Rahul An aPTT Coag (Bld) [Time] PLEASE NOTE: NORMAL RANGE CHANGE 04-01-2015 DUE TO REAGENT LOT CHANGE Normal [facility] Comment on above: Performed By: #### P T, PTT #### [facility] [address] [place], [place] [address] Rahul An URINE MICROSCOPIC ONLYon Bacteria LM.HPF (Urine sed) [#/Area] MODERATE Normal NONE SEEN [facility] Comment on above: Performed By: #### JANNY CLOUD #### [facility] [address] [place], [place] [address] Rahul An CAST NONE SEEN Normal NONE SEEN [facility] Comment on above: Performed By: #### JANNY CLOUD #### [facility] [address] [place], [place] [address] Rahul An Crystals LM Nom (Urine sed) NONE SEEN Normal NONE SEEN [facility] Comment on above: Performed By: #### JANNY CLOUD #### [facility] [address] [address] Rahulkeya Nolan CULTURE INDICATED Normal [facility] Comment on above: Performed By: #### JANNY CLOUD #### [facility] [address] [place], [place] [address] Rahulkeya Nolan Epithelial cells LM.HPF (Urine sed) [#/Area] RARE Normal [facility] Comment on above: Performed By: #### JANNY CLOUD #### [facility] [address] [place], [place] [address] Rahul An MUCOUS NONE SEEN Normal NONE SEEN [facility] Comment on above: Performed By: #### JANNY CLOUD #### [facility] [address] [address] Rahulkeya Nolan RBC (U) [#/Vol] 20-50 Normal 0-2 [facility] Comment on above: Performed By: #### JANNY CLOUD #### [facility] [address] [place], [place] [address] Rahul Nolan WBC (Bld) [#/Vol] >100 Normal NONE SEEN [facility] Comment on above: Performed By: #### JANNY CLOUD #### [facility] [address] [place], [place] [address] Rahulkeya Nolan Encounters Encounter Date Encounter Type Care Provider Facility Start: 12-14-2018 End: 12-14-2018 Patient encounter procedure DOCTOR MISC Facility: Payers Date Payer Category Payer Unknown [id number] 1955 Unknown [id number] Summary Purpose Family History No Family History Records Found Advance Directives No Advanced Directives Records Found Additional Source Comments (unrecognized sect ion and content) No Status Records Found INFORMATION SOURCE (unrecogn ized section and content) DATE CREATED AUTHOR 12/19/2018 [facility] FOR RECORDS PERTAINING TO PATIENTS WHO ARE OR HAVE BEEN ENROLLED IN A CHEMICAL DEPENDENCY/SUBSTANCEABUSE PROGRAM, SOME INFORMATION MAY BE OMITTED. This clinical summary was aggregated from multiple sources. Caution should be exercised in using it in the provision of clinical care. This summary normalizes information from multiple sources, and as a consequence, information in this document may materially change the coding, format and clinical context of patient data. In addition, data may be omitted in some cases. CLINICAL DECISIONS SHOULD BE BASED ON THE PRIMARY CLINICAL RECORDS. [facility]. provides no warranty or guarantee of the accuracy or completeness of information in this document.
[2023-05-16] MEDS: HYDRALAZINE HCL 20 MG/ML VIAL 10 MG IVP (17:11)
[2023-05-16 17:18] LABS: Troponin I High Sensitivity 34.5 pg/mL (4.0-76.1)
[2023-05-16 17:20] LABS: Bilirubin Urine NEGATIVE (NEGATIVE); Blood Urine NEGATIVE (NEGATIVE); Clarity Urine CLEAR (CLEAR); Color Urine LT. YELLOW (YELLOW); Glucose Urine UA NEGATIVE (NEGATIVE); Ketones Urine NEGATIVE (NEGATIVE); Leukocyte Esterase Urine NEGATIVE (NEGATIVE); Nitrite Urine NEGATIVE (NEGATIVE); Protein Urine NEGATIVE (NEG/TRACE); Urobilinogen Urine 0.2 EU/dL (0.2-1.0)
[2023-05-16 17:22] LABS: Urine Microscopic Indicated NO
[2023-05-16 17:23] LABS: Thyroid Stimulating Hormone 2.691 uIU/mL (0.358-3.740)
[2023-05-16] MEDS: LABETALOL HCL 200 MG TABLET PO (18:04)
[2023-05-16] MEDS: CEFTRIAXONE 1,000 MG in 0.9 % SODIUM CHLORIDE 50 ML 100 MG IV (18:41)
[2023-05-16] MEDS: BUMETANIDE 10 MG in 0.9 % SODIUM CHLORIDE 160 ML 20 MG IV (18:42)
[2023-05-16] MEDS: dilTIAZem HCL 125 MG in 0.9 % SODIUM CHLORIDE 100 ML 10 MG IV (18:54)
[2023-05-16 20:20] LABS: Troponin I High Sensitivity 31.8 pg/mL (4.0-76.1)
[2023-05-16] MEDS: POTASSIUM CHLORIDE 10 MEQ ER TABLET 20 MEQ PO (21:28)
[2023-05-16] MEDS: APIXABAN 5 MG TABLET PO (21:28)
[2023-05-16] MEDS: CLONIDINE HCL 0.1 MG TABLET PO (21:28)
[2023-05-16] MEDS: HYDRALAZINE HCL 50 MG TABLET 100 MG PO (22:41)
[2023-05-17] VITALS (61 sets, daily range): BP systolic 96–153; BP diastolic 68–100; PULSE 69–102; RESP 11–32; TEMP 36.4; O2SAT 97; BMI 26.3
[2023-05-17] MEDS: LABETALOL HCL 200 MG TABLET PO (05:06)
[2023-05-17] MEDS: HYDRALAZINE HCL 50 MG TABLET 100 MG PO ×2 (05:06→14:43)
[2023-05-17] MEDS: CLONIDINE HCL 0.1 MG TABLET PO ×2 (05:06→14:43)
[2023-05-17] MEDS: dilTIAZem HCL 125 MG in 0.9 % SODIUM CHLORIDE 100 ML 10 MG IV (05:24)
[2023-05-17 05:27] LABS: Basophils Absolute Auto 0.1 10^3/uL (0.0-0.1); Basophils Percent Auto 0.7 % (0.2-2.0); Eosinophils Absolute Auto 0.1 10^3/uL (0.0-0.7); Eosinophils Percent Auto 0.7 % (0.9-7.0); Hematocrit 33.6 % (42.0-54.0); Hemoglobin 10.2 g/dL (14.0-18.0); Immature Granulocytes Abs Auto 0.05 10^3/uL (0.00-0.03); Immature Granulocytes Pct Auto 0.4 % (0.0-0.5); Lymphocytes Absolute Auto 0.9 10^3/uL (1.2-3.8); Lymphocytes Percent Auto 7.7 % (20.5-60.0); Mean Corpuscular HGB Conc 30.4 g/dL (29.9-35.2); Mean Corpuscular Volume 82.4 fL (80.0-94.0); Mean Platelet Volume 9.7 fL (9.5-13.5); Monocytes Percent Auto 8.7 % (1.7-12.0); Neutrophils Absolute Auto 9.5 10^3/uL (1.4-6.5); Neutrophils Percent Auto 81.8 % (43.0-75.0); Platelet Count 296 10^3/uL (150-450); Red Blood Count 4.08 10^6/uL (4.70-6.10); White Blood Count 11.6 10^3/uL (4.0-11.0)
[2023-05-17 05:54] LABS: Alanine Aminotransferase 44 U/L (16-63); Albumin Globulin Ratio 0.7; Albumin Level 2.9 g/dL (3.4-5.0); Alkaline Phosphatase 76 U/L (46-116); Aspartate Amino Transferase 22 U/L (15-37); Bilirubin Total 0.7 mg/dL (0.2-1.0); Calcium 8.8 mg/dL (8.5-10.1); Chloride 104 mmol/L (98-107); Estimated GFR (African America 54 (>=60); Estimated GFR (Non-African Ame 44 (>=60); Glucose 122 mg/dL (74-106); Magnesium 1.8 mg/dL (1.8-2.4); Sodium 144 mmol/L (136-145); Total Protein 6.9 g/dL (6.4-8.2)
--- NOTE | 2023-05-17 08:04 | CM.NOTE ---
Rounds made with Dr. Nam, wean off cardizem drip and start P.O medications for rate control. Possible D/C this afternoon.
--- NOTE | 2023-05-17 08:20 | P.DS_ITS ---
DS: Providers Provider Date of admission: 05/16/23 16:39 Primary care physician: Non-Staff Physician, Consults: 05/16/23 16:40 Consult to Wound Care Routine Consulting Provider: Job Kenny Reason for consultation: cellulitis Has provider been notified: No DS: Diagnosis Discharge Diagnosis (1) Atrial fibrillation with rapid ventricular response: (2) Edema, peripheral: (3) CHF (congestive heart failure): Plan Tachycardia with atrial fibrillation with rapid ventricular response with uncontrolled hypertension resulting in acute combined congestive heart failure with significantly elevated BNP. Uncontrolled hypertension Cellulitis possibly left lower extremity. Chronic kidney disease stage II ? DS: Summary Hospital Course Hospital Course: Patient was seen and evaluated in the emergency room with increasing shortness of breath. Palpitations. Found to have atrial fibrillation with rapid ventricular response with acute combined congestive heart failure. He was placed on Cardizem drip and that was weaned off to oral medications. Given Bumex drip which she had diuresis of 10 L. 1 dose of Lasix orally was given this morning. His echocardiogram was unremarkable. At this point he will be discharged home in improving condition. Medications see list. Follow-up with PCP within the next week. He is atrial fibrillation is persisting and he must take anticoagulation Time Spent with Patient Time attestation: Total time spent providing and/or coordinating discharge services: Exam Constitutional Vital Signs, click to edit/add: Last Vital Signs Temp 97.6 F 05/17/23 06:02 Pulse 81 05/17/23 06:02 Resp 18 05/17/23 06:02 BP 138/94 H 05/17/23 06:02 Pulse Ox 97 05/17/23 06:02 O2 Del Method Room Air 05/17/23 06:02 Documenting provider has reviewed patient's vital signs: yes Common normals: no apparent distress Chest Common normals: inspection of chest normal Respiratory Common normals: normal respiratory effort Effort & inspection: able to speak in complete sentences Auscultation: rales (lower 1/3) Cardio Common normals: irregular rate and irregular rhythm Rate: tachycardic Rhythm: abnormal rhythm GI Common normals: Normal to inspection, nondistended, normoactive bowel sounds present Extremity Other: 3+ edema with possible early cellulitis open wound Left leg DS: Data Data Completed and Pending Labs on day of discharge: Labs from last 24 hours 05/17/23 05/16/23 05/16/23 04:54 19:55 16:55 WBC 11.6 H RBC 4.08 L Hgb 10.2 L Hct 33.6 L MCV 82.4 MCH 25.0 L MCHC 30.4 RDW 18.0 H Plt Count 296 MPV 9.7 Neut % (Auto) 81.8 H Lymph % (Auto) 7.7 L [place] % (Auto) 8.7 Eos % (Auto) 0.7 L Baso % (Auto) 0.7 Neut # (Auto) 9.5 H Lymph # (Auto) 0.9 L [place] # (Auto) 1.0 H Eos # (Auto) 0.1 Baso # (Auto) 0.1 Abs Immat Gran (auto) 0.05 H Imm/Tot Granulo (auto) 0.4 PT INR Sodium 144 Potassium 3.0 L Chloride 104 Carbon Dioxide 31.0 Anion Gap 12.0 BUN 22.0 H Creatinine 1.57 H Est GFR ( Amer) 54 L Est GFR (Non-Af Amer) 44 L BUN/Creatinine Ratio 14.0 Glucose 122 H Lactate Calcium 8.8 Magnesium 1.8 Total Bilirubin 0.7 AST 22 ALT 44 Alkaline Phosphatase 76 Troponin I High Sens 31.8 NT-Pro-B Natriuret Pep 8704.0 H* Total Protein 6.9 Albumin 2.9 L Globulin 4.0 Albumin/Globulin Ratio 0.7 TSH Thyroxine (T4) Urine Color Lt. yellow Urine Clarity Clear Urine pH 6.0 Ur Specific [place] 1.010 Urine Protein Negative Urine Glucose (UA) Negative Urine Ketones Negative Urine Occult Blood Negative Urine Nitrite Negative Urine Bilirubin Negative Urine Urobilinogen 0.2 Ur Leukocyte Esterase Negative 05/16/23 05/16/23 16:53 14:20 WBC 10.7 RBC 3.78 L Hgb 9.6 L Hct 31.9 L MCV 84.4 MCH 25.4 L MCHC 30.1 RDW 17.9 H Plt Count 293 MPV 10.4 Neut % (Auto) 81.5 H Lymph % (Auto) 9.6 L [place] % (Auto) 7.1 Eos % (Auto) 0.6 L Baso % (Auto) 0.8 Neut # (Auto) 8.8 H Lymph # (Auto) 1.0 L [place] # (Auto) 0.8 Eos # (Auto) 0.1 Baso # (Auto) 0.1 Abs Immat Gran (auto) 0.04 H Imm/Tot Granulo (auto) 0.4 PT 11.3 INR 1.07 Sodium 137 Potassium 3.7 Chloride 105 Carbon Dioxide 24.4 Anion Gap 11.3 BUN 23.0 H Creatinine 1.46 H Est GFR ( Amer) 58 L Est GFR (Non-Af Amer) 48 L BUN/Creatinine Ratio 15.8 Glucose 115 H Lactate 1.7 Calcium 8.2 L Magnesium Total Bilirubin 0.5 AST 22 ALT 41 Alkaline Phosphatase 84 Troponin I High Sens 34.5 31.4 NT-Pro-B Natriuret Pep 9141.0 H* Total Protein 6.5 Albumin 2.7 L Globulin 3.8 Albumin/Globulin Ratio 0.7 TSH 2.691 Thyroxine (T4) 4.30 L Urine Color Urine Clarity Urine pH Ur Specific [place] Urine Protein Urine Glucose (UA) Urine Ketones Urine Occult Blood Urine Nitrite Urine Bilirubin Urine Urobilinogen Ur Leukocyte Esterase Discharge Plan Discharge Disposition: Home, Self-Care Condition: Good Discharge Medications: New Eliquis 5 mg Tablet 5 mg PO BID Qty: 60 11RF furosemide 40 mg Tablet 40 mg PO QD Qty: 30 11RF diltiazem HCl 180 mg Capsule,Extended Release 24hr 180 mg PO QD Qty: 30 11RF potassium chloride 10 mEq Tablet,Er Particles/Crystals 20 meq PO AC Qty: 90 11RF Continued labetalol 200 mg tablet 200 mg PO Q12H hydralazine 100 mg tablet 100 mg PO TID Discontinued amlodipine 10 mg tablet 10 mg PO DAILY aspirin [Adult Low Dose Aspirin] 81 mg tablet,delayed release (DR/EC) 81 mg PO DAILY Activity: increase activity as tolerated Diet: advance to your usual diet Patient Instructions: A-fib (Atrial Fibrillation) (DC), Heart Healthy Diet (DC), Blood Thinners (DC) Forms: Portal Instructions Follow Up Appointments: Dr Juarez May @ [id number] Discharge Date/Time: 05/17/23 17:15
[2023-05-17] MEDS: DILTIAZEM HCL 180 MG CAP.ER.24H PO (08:36)
[2023-05-17] MEDS: POTASSIUM CHLORIDE 10 MEQ ER TABLET 20 MEQ PO (08:36)
[2023-05-17] MEDS: FUROSEMIDE 40 MG TABLET PO (08:37)
[2023-05-17] MEDS: AMLODIPINE BESYLATE 5 MG TABLET 10 MG PO (08:37)
[2023-05-17] MEDS: APIXABAN 5 MG TABLET PO (08:37)
[2023-05-17] MEDS: POTASSIUM CHLORIDE 40 MEQ in 0.9 % SODIUM CHLORIDE 250 ML 67.5 MEQ IV (09:50)
--- NOTE | 2023-05-17 10:09 | CM.NOTE ---
Medicare Outpatient Observation Notice discussed with pt, pt verbalizes understanding and signs paper. Original given to pt and copy placed on pt's chart.
[2023-05-17 12:07] LABS: Glucometer 442 mg/dL (74-106)
--- NOTE | 2023-05-18 10:21 | CM.DCFOLLOWU ---
1st attempt discharge follow up call made by Yasmeen King on 05/18/23, no answer, number was disconnected. No other number listed in chart.
--- NOTE | 2023-05-19 13:40 | CM.DCFOLLOWU ---
2nd attempt discharge follow up call made by Yasmeen King on 05/19/23, no answer, phone number was disconnected. No other attempts will be made due to phone line being disconnected.
== END 2023-05-17 17:15 | disposition home or self-care (01) ==
LOC: ER 15:41 → MS 16:50 → ICU 18:31
PROVIDERS: Physician Assistant; Admitting Provider Family Medicine; Emergency Provider Emergency Medicine; Visit Provider Family Medicine
DX: I13.0 Hypertensive heart and chronic kidney disease with heart failure and stage 1 through stage 4 chronic kidney disease, or unspecified chronic kidney disease (principal); I50.41 Acute combined systolic (congestive) and diastolic (congestive) heart failure; N18.2 Chronic kidney disease, stage 2 (mild); I48.91 Unspecified atrial fibrillation; R00.0 Tachycardia, unspecified; S81.802A Unspecified open wound, left lower leg, initial encounter; R60.9 Edema, unspecified; Z86.73 Personal history of transient ischemic attack (TIA), and cerebral infarction without residual deficits; Z79.82 Long term (current) use of aspirin; Z79.899 Other long term (current) drug therapy; Z23 Encounter for immunization
CPT/HCPCS: 36415; 71045; 80053; 81003; 83605; 83735; 83880; 84436; 84443; 84484; 85025; 85610; 87040; 87070; 87086; 90662; 93005; 93306; 93970; 94761; 96365; 96366; 96367; 96368; 96372; 96375; 96376; 99285; G0008; G0378; J0360; J0696; J1650; J3480

== ENCOUNTER 2023-06-12 15:30 | Outpatient (OUT) | payer MEDICARE, OTHER, BC, SELFPAY ==
--- OUTSIDE RECORDS SUMMARY | 2023-06-12 15:41 | XMS_ITS | CCD ---
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 Name Role Phone MARIBEL, DOCTOR Primary Care Unavailable PAY, PETR Admitting Unavailable PAY, PETR Attending Unavailable PAY, PETR Consulting Unavailable SHAIKH LEVIN Attending Unavailable Problems Problem Classification Problem Date Documented Date Episodic/Chronic Cardiac dysrhythmias (1 source) Unspecified atrial fibrillation; Translations: [UNSPECIFIED ATRIAL FIBRILLATION] Onset: 9 Chronic Disorders of lipid metabolism (1 source) Pure hypercholesterolemia, unspecified; Translations: [PURE HYPERCHOLESTEROLEMIA UNSPEC] Onset: 9 Essential hypertension (1 source) Essential (primary) hypertension; Translations: [ESSENTIAL PRIMARY HYPERTENSION] Onset: 9 Chronic Fluid and electrolyte disorders (2 sources) Dehydration; Translations: [Hypokalemia] Onset: 9 Episodic Genitourinary symptoms and ill-defined conditions (3 sources) Hematuria, unspecified; Translations: [HEMATURIA UNSPECIFIED] Onset: 9 Episodic Malaise and fatigue (1 source) Other fatigue; Translations: [OTHER FATIGUE] Onset: 9 Episodic Other aftercare (1 source) terminal clerk (current) use of anticoagulants; Translations: [RETIREMENT CURRNT USE ANTICOAGULANTS] Onset: 9 Episodic Other aftercare (1 source) terminal clerk (current) use of aspirin; Translations: [SEALER OPERATOR CURRENT USE OF ASPIRIN] Onset: 9 Episodic Other aftercare (1 source) Other custodial (current) drug therapy; Translations: [OTH SEALER OPERATOR CURRENT DRUG THERAPY] Onset: 9 Episodic Urinary [...] F Trimethoprim/Sulfame thoxazole <=20 S F Normal [facility] Comment on above: Performed By: #### U RCX #### [facility] [address] [place] [address] Rahul Nolan CARDIAC LEONOR ADMITon 019 CK [Catalytic activity/Vol] 116 U/L Normal 55-170 [facility] Comment on above: Performed By: #### L IVER, BMP, CMADM, LIPA #### [facility] [address] [place], [place] [address] Rahul Nolan CK.MB [Mass/Vol] 1.36 ng/mL Normal <=2.37 [facility] Comment on above: Performed By: #### L IVER, BMP, CMADM, LIPA #### [facility] [address] [place], [place] [id number] Rahul Nolan INR Coag (Bld) [Relative time] SEE BELOW Normal [facility] Comment on above: Result Comment: <0.0 34 ng/ml NEGATIVE 0.034-0.119 INDETERMINATE 0.120 AMI CUT OFF Performed By: #### L IVER, BMP, CMADM, LIPA #### [facility] [address] [place], [place] [address] Rahul Nolan PHAM 112.0 ng/mL Normal <=121.0 [facility] Comment on above: Performed By: #### L IVER, BMP, CMADM, LIPA #### [facility] [address] [place] [address] Rahul An TROP <0.017 Normal <=0.034 [facility] Comment on above: Performed By: #### L FAUSTO, MAURISIO, CMADM, LIPA #### [facility] [address] [place], [place] [address] Rahul An CBC AUTO DIFFon 12-14-2018 Basophils (Bld) [#/Vol] 0.1 103/ul Normal 0.0-0.1 [facility] Comment on above: Performed By: #### C BC #### [facility] [address] [place], [place] [address] Rahul An Basophils/100 WBC (Bld) 0.7 % Normal 0.2-2.0 [facility] Comment on above: Performed By: #### C BC #### [facility] [address] [place] [address] Rahul An Eosinophils (Bld) [#/Vol] 0.0 103/ul Normal 0.0-0.7 [facility] Comment on above: Performed By: #### C BC #### [facility] [address] [place], [place] [address] Rahul An Eosinophils/100 WBC (Bld) 0.2 % Critically low 0.9-7.0 [facility] Comment on above: Performed By: #### C BC #### [facility] [address] [place], [place] [address] Rahul An Erythrocyte distribution width (RBC) [Ratio] 14.8 % Normal 11.0-15.0 [facility] Comment on above: Performed By: #### C BC #### [facility] [address] [place], [place] [address] Rahul An Hematocrit (Bld) [Volume fraction] 52.1 % Normal 42.0-54.0 [facility] Comment on above: Performed By: #### C BC #### [facility] [address] [place], [place] [address] Rahul An Hemoglobin (Bld) [Mass/Vol] 17.3 g/dL Normal 14.0-18.0 [facility] Comment on above: Performed By: #### C BC #### [facility] [address] [id number] Rahul An IG # 0.10 10e3/ul Critically high 0.00-0.03 [facility] Comment on above: Performed By: #### C BC #### [facility] [address] [id number] Rahul An IG % 0.6 % Critically high 0.0-0.5 [facility] Comment on above: Performed By: #### C BC #### [facility] [address] [place], [place] [address] Rahul An Lymphocytes (Bld) [#/Vol] 1.9 103/ul Normal 1.2-3.8 [facility] Comment on above: Performed By: #### C BC #### [facility] [address] [place], [place] [address] Rahul An Lymphocytes/100 WBC (Bld) 11.5 % Critically low 20.5-60.0 [facility] Comment on above: Performed By: #### C BC #### [facility] [address] [place], [place] [address] Rahul An MANUAL DIFF REQ NO Normal [facility] Comment on above: Performed By: #### C BC #### [facility] [address] [place], [place] [address] Rahul An MCH (RBC) [Entitic mass] 30.0 pg Normal 25.9-34.0 [facility] Comment on above: Performed By: #### C BC #### [facility] [address] [place], [place] [address] Rahul An MCHC (RBC) [Mass/Vol] 33.2 g/dL Normal 29.9-35.2 [facility] Comment on above: Performed By: #### C BC #### [facility] [address] [place], [place] [address] Rahul An MCV (RBC) [Entitic vol] 90.5 fL Normal 80.0-94.0 [facility] Comment on above: Performed By: #### C BC #### [facility] [address] [place], [place] [address] Rahul An Monocytes (Bld) [#/Vol] 1.2 103/ul Critically high 0.3-0.8 [facility] Comment on above: Performed By: #### C BC #### [facility] [address] [place], [place] [address] Rahul An Monocytes/100 WBC (Bld) 7.0 % Normal 1.7-12.0 [facility] Comment on above: Performed By: #### C BC #### [facility] [address] [place] [address] Rahul An Neutrophils (Bld) [#/Vol] 13.3 103/ul Critically high 1.4-6.5 [facility] Comment on above: Performed By: #### C BC #### [facility] [address] [place], [place] [address] Rahul An Neutrophils/100 WBC (Bld) 80.0 % Critically high 43.0-75.0 [facility] Comment on above: Performed By: #### C BC #### [facility] [address] [place] [address] Rahul An Platelet mean volume (Bld) [Entitic vol] 9.9 fL Normal 9.5-13.5 [facility] Comment on above: Performed By: #### C BC #### [facility] [address] [place] [address] Rahul An Platelets (Bld) [#/Vol] 366 103/ul Normal 150-450 [facility] Comment on above: Performed By: #### C BC #### [facility] [address] [place] [address] Rahul An RBC (Bld) [#/Vol] 5.76 106/ul Normal 4.70-6.10 [facility] Comment on above: Performed By: #### C BC #### [facility] [address] [place] [address] Rahul An WBC (Bld) [#/Vol] 16.6 103/ul Critically high 4.0-11.0 [facility] Comment on above: Performed By: #### C BC #### [facility] [address] [place], [place] [address] Rahul An ER URINE PROFILEon 9 Bilirubin [Mass/Vol] MODERATE Normal NEGATIVE [facility] Comment on above: Performed By: #### JAMES CLOUDRO #### [facility] [address] [place] [address] Rahul An BLOOD LARGE Normal NEGATIVE [facility] Comment on above: Performed By: #### JAMES CLOUDRO #### [facility] [address] [place] [address] Rahul An Clarity (U) CLEAR Normal [facility] Comment on above: Performed By: #### JAMES CLOUDRO #### [facility] [address] [place] [address] Rahul An Color (U) DK. ORANGE Normal YELLOW [facility] Comment on above: Performed By: #### JAMES CLOUDRO #### [facility] [address] [place] [address] Rahul An ERUAHD A micrscopic examination will be performed if indicated. Normal [facility] Comment on above: Performed By: #### JANNY CLOUD #### [facility] [address] [place] [address] Rahul An Glucose [Mass/Vol] Negative Normal NEGATIVE [facility] Comment on above: Performed By: #### JANNY CLOUD #### [facility] [address] [place] [address] Rahul An Ketones Ql (U) TRACE Normal NEGATIVE [facility] Comment on above: Performed By: #### JANNY CLOUD #### [facility] [address] [place] [address] Rahul An Nitrite Ql (U) Positive Normal NEGATIVE [facility] Comment on above: Performed By: #### JANNY CLOUD #### [facility] [address] [place] [address] Rahul An pH (Bld) 6.0 Normal 5-9 [facility] Comment on above: Performed By: #### JAMES CLOUDRO #### [facility] [address] [place] [address] Rahul Nolan Protein (U) [Mass/Vol] mg/dL Normal [facility] Comment on above: Performed By: #### JAMES CLOUDRO #### [facility] [address] [place] [address] Rahul Nolan SPEC GRAVITY 1.025 Normal 1.005-<=1.025 [facility] Comment on above: Performed By: #### JAMES CLOUDRO #### [facility] [address] [place] [address] Rahul Nolan UR MICRO IND INDICATED Normal [facility] Comment on above: Performed By: #### JAMES CLOUDRO #### [facility] [address] [place] [address] Rahul Nolan Urobilinogen Qn (U) 2.0 EU/dl Normal [facility] Comment on above: Performed By: #### JAMES CLOUDRO #### [facility] [address] [place] [address] Rahul Nolan WBC (Bld) [#/Vol] SMALL Normal NEGATIVE [facility] Comment on above: Performed By: #### JAMES CLOUDRO #### [facility] [address] [place], [place] [address] Rahul Nolan LIPASEon 12-14-2018 Lipase [Catalytic activity/Vol] 160.0 U/L Normal 23.0-300.0 [facility] Comment on above: Performed By: #### L IVMAURISIO LORD, CMADM, LIPA #### [facility] [address] [place], [place] [address] Rahul Nolan LIVER PROFILEon 12-14-2018 Albumin [Mass/Vol] 3.8 g/dL Normal 3.5-5.0 [facility] Comment on above: Performed By: #### L IVER, BMP, CMADM, LIPA #### [facility] [address] [address] Rahul An Albumin/Globulin [Mass ratio] 0.7 {ratio} Normal [facility] Comment on above: Performed By: #### L IVER, BMP, CMADM, LIPA #### [facility] [address] [address] Rahul An ALP [Catalytic activity/Vol] 84 U/L Normal 38-126 [facility] Comment on above: Performed By: #### L IVER, BMP, CMADM, LIPA #### [facility] [address] [address] Rahul An ALT [Catalytic activity/Vol] 51 U/L Normal 21-72 [facility] Comment on above: Performed By: #### L IVER, BMP, CMADM, LIPA #### [facility] [address] [place] [address] Rahul An AST [Catalytic activity/Vol] 22 U/L Normal 17-59 [facility] Comment on above: Performed By: #### L IVER, BMP, CMADM, LIPA #### [facility] [address] [address] Rahul An BILI, CONJUGATED 0.3 mg/dL Normal 0.0-0.3 [facility] [place] Comment on above: Performed By: #### L IVER, BMP, CMADM, LIPA #### [facility] [address] [id number] Rahul An Bilirubin Ql (U) 1.2 mg/dL Normal 0.2-1.3 [facility] [place] Comment on above: Performed By: #### L IVER, BMP, CMADM, LIPA #### [facility] [address] [phone] Rahul An Globulin (S) [Mass/Vol] 5.3 g/dL Normal [facility] Comment on above: Performed By: #### L IVER, BMP, CMADM, LIPA #### [facility] [address] [phone] Rahul An Protein [Mass/Vol] 9.1 g/dL Critically high 6.1-8.2 [facility] Comment on above: Performed By: #### L IVER, BMP, CMADM, LIPA #### [facility] [address] [place] [address] Rahul An PROF CHEM 8 (BAS METB)on Anion gap [Moles/Vol] 13.0 mmol/L Normal [facility] Comment on above: Performed By: #### L IVER, BMP, CMADM, LIPA #### [facility] [address] [place] [address] Rahul An Calcium [Mass/Vol] 8.5 mg/dL Normal 8.4-10.2 [facility] Comment on above: Performed By: #### L IVER, BMP, CMADM, LIPA #### [facility] [address] [place] [address] Rahul An Chloride [Moles/Vol] 96 mmol/L Critically low 98-107 [facility] Comment on above: Performed By: #### L IVER, BMP, CMADM, LIPA #### [facility] [address] [place] [address] Rahul An CO2 [Moles/Vol] 31.0 mmol/L Critically high 22.0-30.0 [facility] Comment on above: Performed By: #### L IVER, BMP, CMADM, LIPA #### [facility] [address] [place] [address] Rahul An Creatinine [Mass/Vol] 1.53 mg/dL Critically high 0.66-1.25 [facility] Comment on above: Performed By: #### L IVER, BMP, CMADM, LIPA #### [facility] [address] [address] Rahul An EGFR-AF NIUEAN 56 mL/min/1.73m2 Critically low >=60 [facility] Comment on above: Performed By: #### L IVER, BMP, CMADM, LIPA #### [facility] [address] [place] [address] Rahul An EGFR-NON AF NIUEAN 46 mL/min/1.73m2 Critically low >=60 [facility] Comment on above: Performed By: #### L IVER, BMP, CMADM, LIPA #### [facility] [address] [place] [address] Rahul An Glucose [Mass/Vol] 135 mg/dL Critically high 74-106 [facility] Comment on above: Performed By: #### L IVER, BMP, CMADM, LIPA #### [facility] [address] [place] [address] Rahul An Potassium [Moles/Vol] 3.0 mmol/L Critically low 3.4-5.0 [facility] Comment on above: Performed By: #### L IVER, BMP, CMADM, LIPA #### [facility] [address] [place] [address] Rahul An Sodium [Moles/Vol] 137 mmol/L Normal 137-[address] [facility] Comment on above: Performed By: #### L IVER, BMP, CMADM, LIPA #### [facility] [address] [place] [address] Rahul An Urea nitrogen [Mass/Vol] 14.0 mg/dL Normal 9.0-20.0 [facility] Comment on above: Performed By: #### L IVER, BMP, CMADM, LIPA #### [facility] [address] [place] [address] Rahul An Urea nitrogen/Creatinine [Mass ratio] 9.2 mg/mg Normal [facility] Comment on above: Performed By: #### L IVER, BMP, CMADM, LIPA #### [facility] [address] [place] [address] Rahul An PROTIMEon 12-14-2018 INR Coag (PPP) [Relative time] 1.14 {INR} Normal [facility] Comment on above: Performed By: #### P T, PTT #### [facility] [address] [place] [address] Rahul An PT Coag (PPP) [Time] PLEASE NOTE: NORMAL RANGE CHANGE 01-23-2014 DUE TO REAGENT LOT CHANGE Normal [facility] Comment on above: Performed By: #### P T, PTT #### [facility] [address] [place] [address] Rahul An PT Coag (PPP) [Time] 11.8 s Critically high 9.0-11.6 [facility] Comment on above: Performed By: #### P T, PTT #### [facility] [address] [place] [address] Rahul An PT Coag (PPP) [Time] SEE BELOW Normal [facility] Comment on above: Result Comment: FRANK RED INR: 2.0 - 3.0 CONDITIONS NOT LISTED BELOW 2.5 - 3.5 FOR PROSTHETIC HEART VALVE REPLACEMENT 2.5 - 3.5 RECURRENT THROMBOSIS Performed By: #### P T, PTT #### [facility] [address] [place] [address] Rahul An PTTon 12-14-2018 aPTT Coag (Bld) [Time] 35.0 s Normal 22.3-36.2 [facility] Comment on above: Performed By: #### P T, PTT #### [facility] [address] [place] [address] Rahul An aPTT Coag (Bld) [Time] PLEASE NOTE: NORMAL RANGE CHANGE 04-01-2015 DUE TO REAGENT LOT CHANGE Normal [facility] Comment on above: Performed By: #### P T, PTT #### [facility] [address] [place], [place] [address] Rahul An URINE MICROSCOPIC ONLYon Bacteria LM.HPF (Urine sed) [#/Area] MODERATE Normal NONE SEEN [facility] Comment on above: Performed By: #### JANNY CLOUD #### [facility] [address] [place] [address] Rahul An CAST NONE SEEN Normal NONE SEEN [facility] Comment on above: Performed By: #### JANNY CLOUD #### [facility] [address] [place] [address] Rahul An Crystals LM Nom (Urine sed) NONE SEEN Normal NONE SEEN [facility] Comment on above: Performed By: #### JANNY CLOUD #### [facility] [address] [place], [place] [address] Rahul An CULTURE INDICATED Normal [facility] Comment on above: Performed By: #### Bigg KATZ, JAMESRO #### [facility] [address] [place], [place] [address] Rahul An Epithelial cells LM.HPF (Urine sed) [#/Area] RARE Normal [facility] Comment on above: Performed By: #### JAMES CLOUDRO #### [facility] [address] [place], [place] [address] Rahul An MUCOUS NONE SEEN Normal NONE SEEN [facility] Comment on above: Performed By: #### JANNY CLOUD #### [facility] [address] [place], [place] [address] Rahul An RBC (U) [#/Vol] 20-50 Normal 0-2 [facility] Comment on above: Performed By: #### JANNY CLOUD #### [facility] [address] [place], [place] [address] Rahul An WBC (Bld) [#/Vol] >100 Normal NONE SEEN [facility] Comment on above: Performed By: #### Bigg KATZ, JANNY #### [facility] [address] [place], [place] [address] Rahul An Encounters Encounter Date Encounter Type Care Provider Facility Start: 05-24-2023 End: 05-24-2023 ambulatory SHAIKH POONAM Not Available Start: 12-14-2018 End: 12-14-2018 Patient encounter procedure DOCTOR MISC Facility:[facility] Payers Date Payer Category Payer Medicare [id number] 2019 Unknown [id number] 1960 Unknown [id number] 1955 Unknown [id number] 1955 Unknown [id number] Summary Purpose Family History No Family History Records FoundNo Family History Records Found Advance Directives No Advanced Directives Records FoundNo Advanced Directives Records Found Additional Source Comments (unrecognized sect ion and content) No Status Records FoundNo Status Records Found INFORMATION SOURCE (unrecogn ized section and content) DATE CREATED AUTHOR 12/19/2018 [facility] DATE CREATED AUTHOR AUTHOR'S ARACELI ATNIK 05/25/2023 [facility] [place] [facility] FOR RECORDS PERTAINING TO PATIENTS WHO ARE [...] BE BASED ON THE PRIMARY CLINICAL RECORDS. [facility] [employer] [facility]. provides no warranty or guarantee of the accuracy or completeness of information in this document.
== END 2023-06-12 15:31 | disposition home or self-care (01) ==
LOC: WC 15:30
PROVIDERS: Visit Provider Physician Assistant
DX: R60.1 Generalized edema (principal)
CPT/HCPCS: G0463

== ENCOUNTER 2023-06-22 13:13 | Outpatient (OUT) | payer MEDICARE, OTHER, BC, SELFPAY ==
[2023-06-22 13:40] LABS: Basophils Absolute Auto 0.1 10^3/uL (0.0-0.1); Basophils Percent Auto 1.4 % (0.2-2.0); Eosinophils Absolute Auto 0.1 10^3/uL (0.0-0.7); Eosinophils Percent Auto 1.6 % (0.9-7.0); Hematocrit 39.1 % (42.0-54.0); Hemoglobin 11.6 g/dL (14.0-18.0); Immature Granulocytes Abs Auto 0.02 10^3/uL (0.00-0.03); Immature Granulocytes Pct Auto 0.2 % (0.0-0.5); Lymphocytes Absolute Auto 1.5 10^3/uL (1.2-3.8); Lymphocytes Percent Auto 16.6 % (20.5-60.0); Mean Corpuscular HGB Conc 29.7 g/dL (29.9-35.2); Mean Corpuscular Hemoglobin 23.7 pg (25.9-34.0); Mean Corpuscular Volume 79.8 fL (80.0-94.0); Mean Platelet Volume 9.2 fL (9.5-13.5); Monocytes Absolute Auto 0.6 10^3/uL (0.3-0.8); Monocytes Percent Auto 6.6 % (1.7-12.0); Neutrophils Absolute Auto 6.5 10^3/uL (1.4-6.5); Neutrophils Percent Auto 73.6 % (43.0-75.0); Platelet Count 360 10^3/uL (150-450); Red Cell Distribution Width 19.9 % (11.0-15.0); White Blood Count 8.8 10^3/uL (4.0-11.0)
[2023-06-22 14:01] LABS: Creatinine Urine Random 26.07 mg/dL (20.00-300.00); Total Protein Urine Random <6.0 mg/dL (<=11.9)
[2023-06-22 14:10] LABS: Alanine Aminotransferase 18 U/L (16-63); Albumin Globulin Ratio 0.8; Albumin Level 3.4 g/dL (3.4-5.0); Alkaline Phosphatase 70 U/L (46-116); Anion Gap 13.3; Aspartate Amino Transferase 14 U/L (15-37); BUN Creatinine Ratio 17.1; Bilirubin Total 0.8 mg/dL (0.2-1.0); Calcium 8.9 mg/dL (8.5-10.1); Carbon Dioxide 29.1 mmol/L (21.0-32.0); Chloride 104 mmol/L (98-107); Estimated GFR (African America 47 (>=60); Estimated GFR (Non-African Ame 39 (>=60); Globulin 4.2 g/dL; Glucose 136 mg/dL (74-106); Potassium 3.4 mmol/L (3.5-5.1); Sodium 143 mmol/L (136-145); Total Protein 7.6 g/dL (6.4-8.2)
[2023-06-22 14:33] LABS: Percent Iron Saturation 14.5 %
[2023-06-23 05:07] LABS: Transferrin 368 mg/dL (177-329)
== END 2023-06-22 13:14 | disposition home or self-care (01) ==
LOC: LAB 13:14
PROVIDERS: Visit Provider Internal Medicine
DX: I50.22 Chronic systolic (congestive) heart failure (principal); N18.31 Chronic kidney disease, stage 3a; D64.9 Anemia, unspecified
CPT/HCPCS: 36415; 80053; 82570; 82607; 82728; 83540; 83550; 84156; 84466; 85025

== ENCOUNTER 2023-07-13 13:20 | Outpatient (OUT) | payer MEDICARE, OTHER, BC, SELFPAY ==
--- NOTE | 2023-07-13 13:21 | VEIN_ITS ---
Patient Name: OXANA JOYA MR#: [id number] : 1955 Exam Date: 07/13/2023 Ordering Doctor: SHAIKH Ember LEVIN . RADIOLOGY REPORT PROCEDURE: [facility] - OFFICE VISIT INITIAL COMPARISON: None. PROGRESS NOTES: [age] year old male who presents with a 1 year history of leg swelling and pain, cramping, and slow healing wounds. The patient's leg symptoms are symmetric bilaterally. There has been a progression of symptoms over time. This increased with prolonged leg dependency. The patient describes an improvement with compression stockings, leg elevation, and diuretics. The patient denies any signs and symptoms to suggest arterial ischemia. The patient describes a family history of varicose veins on maternal side. The patient has drinking and smoking history of occasional alcohol consumption; no tobacco use. Patient has a past medical history significant for lower extremity edema, congestive heart failure, atrial fibrillation, stage 3 kidney disease. The patient denies a history of deep venous thrombus or pulmonary embolus. See separate history and physical for medication list. No prior treatment for varicose or spider veins. Current use of compression stockings. After review of nurse notes, history and physical exam I discussed at length the pathophysiology of venous hypertension and possible treatments, therapies and strategies available. We discussed at length the importance of elevating the lower extremities above the level of the heart, increased physical activity and compression stocking use. Ultrasound venous reflux study performed today was discussed at length with the patient. The report demonstrates no abnormal vein dilation or reflux within the lower extremities. PHYSICAL EXAM: The right leg demonstrates no visible varicosities, no significant spider veins, healed ulceration, no edema at this time, mild skin discoloration. The left leg demonstrates no visible varicosities, no significant spider veins, healed ulceration, no edema at this time, mild skin discoloration. Both thighs, legs and feet were symmetrically warm to the touch. Good posterior tibial and dorsalis pedis pulses were present bilaterally. VEIN/VC Facility EST Comprehensive IMPRESSION: 1. No venous insufficiency 2. No significant lower extremity varicose veins 3. No lower extremity subcutaneous edema at this time 4. Atherosclerotic plaque noted within lower extremity arteries. 5. CEAP: C0, AP, AN, PN PLAN: 1. Continued use of compression stockings 2. Elevated legs and increased physical activity symptomatic relief 3. No abnormally dilated veins or venous reflux within the lower extremities in need of treatment. Nurse notes, history and physical were reviewed and confirmed, see attached forms. The nurse was present throughout the physical exam and consultation Dictated by: Brett Grier M.D. on 07/13/2023 at 14:29 Approved by: Brett Grier M.D. on 07/13/2023 at 14:36
--- NOTE | 2023-07-13 13:21 | VEIN_ITS ---
Patient Name: OXANA JOYA MR#: [id number] : 1955 Exam Date: 07/13/2023 Ordering Doctor: SHAIKH Ember LEVIN . RADIOLOGY REPORT PROCEDURE: VC EXT VENOUS REFLUX MAUDE LMTD COMPARISON: None. INDICATIONS: I87.2 Chronic insufficiency of lower extremity TECHNIQUE: Duplex imaging of the lower extremity to assess the deep and superficial venous system for the presence of deep or superficial venous incompetence and to document the location and severity of disease. The study includes evaluation of the great saphenous vein (GSV), anterior accessory saphenous vein (AASV) and small saphenous vein (SSV). Patient scanned in reverse Trendelenburg and standing. FINDINGS: RIGHT LOWER EXTREMITY: Saphenofemoral Junction Reflux: Yes 7.3mm 0.5 sec GSV: Diam (mm) Reflux/ Time (sec) Proximal Thigh 2.9 No Mid Thigh 1.7 No Distal Thigh 1.7 No Prox Calf 1.9 No Mid Calf 1.1 No Saphenopopliteal Junction Reflux: 1.6mm No SSV: Proximal Calf 1.5 No Mid Calf 1.2 No AASV: Not present Proximal Thigh Mid Thigh Distal Thigh Thrombi: No acute or chronic thrombus Compressibility: Normal Flow: Normal Preforator: Mid/med calf 2.1mm with 0.4s reflux. Tech Note: Significant plaque visualized in PTV. No varicose veins visualized. LEFT LOWER EXTREMITY: Saphenofemoral Junction Reflux: No 3.7 mm sec GSV: Diam (mm) Reflux/Time (sec) Proximal Thigh 1.9 No Mid Thigh 1.7 No Distal Thigh 2.0 No Prox Calf 2.0 No Mid Calf 1.6 No Saphenopopliteal Junction Relux: 2.1 mm No SSV: Proximal Calf N/A Mid Calf N/A AASV: Not present Proximal Thigh Mid Thigh Distal Thigh Thrombi: Thrombus visualized throughout SSV. Compressibility: Normal Flow: Normal Stevedoring Superintendent: No perforators visualized. Tech Note: Thrombus visualized in SSV. No patent varicose veins visualized. CONCLUSION: 1. No appreciable abnormal vein dilation or reflux within the lower extremities. Dictated by: Brett Grier M.D. on 07/13/2023 at 14:12 Approved by: Brett Grier M.D. on 07/13/2023 at 14:28
--- OUTSIDE RECORDS SUMMARY | 2023-07-13 13:31 | XMS_ITS | CCD ---
Author Name Unknown Address [address] [place] [address] Organization [facility] Care Team Providers Care Community Development Aide Name Role Phone SHALOMC, DOCTOR Primary Care Unavailable PAY, PETR Admitting Unavailable PAY, PETR Attending Unavailable PAY, PETR Consulting Unavailable Shaikh Levin MD Primary Care Provider [phone] SHAIKH LEVIN Attending Unavailable SHAIKH LEVIN Attending Unavailable Medications Current Medications Medication Drug Class(es) Dates Sig (Normalized) Sig (Original) apixaban 5 mg oral tablet (1 source) Factor Xa Inhibitor Start: 05-17-2023 take 1 tablet by mouth in the morning Eliquis 5 MG tablet Take 5 mg by mouth in the morning and 5 mg before bedtime. 0 05/17/2023 Active furosemide 40 mg oral tablet (1 source) Loop Diuretic Start: 05-24-2023 End: 07-23-2023 take 1 tablet by mouth in the morning furosemide (Lasix) 40 MG tablet Indications: Chronic systolic heart failure (CMS/HCC) Take 1 tablet (40 mg) by mouth in the morning and 1 tablet (40 mg) before bedtime. 60 tablet 1 05/24/2023 07/23/2023 Active losartan potassium 100 mg oral tablet (1 source) Angiotensin 2 Receptor Manisha Start: 05-25-2023 End: 07-24-2023 take 1 tablet by mouth in the morning losartan (Cozaar) 100 MG tablet Indications: Chronic systolic heart failure (CMS/HCC) , Primary hypertension (CMS/HCC) Take 1 tablet (100 mg) by mouth in the morning. 30 tablet 1 05/25/2023 07/24/2023 Active 24 hr metoprolol succinate 100 mg extended release oral tablet (1 source) beta-Adrenergic Manisha Start: 05-24-2023 End: 07-23-2023 take 1 tablet by mouth every twenty-four hours in the morning metoprolol succinate XL (Toprol XL) 100 MG 24 hr tablet Indications: Chronic systolic heart failure (CMS/HCC) Take 1 tablet (100 mg) by mouth in the morning. Do not crush or chew.. 30 tablet 1 05/24/2023 07/23/2023 Active spironolactone 50 mg oral tablet (1 source) Aldosterone Antagonist Start: 05-24-2023 End: 07-23-2023 take 1 tablet by mouth in the morning spironolactone (Aldactone) 50 MG tablet Indications: Chronic systolic heart failure (CMS/HCC) Take 1 tablet (50 mg) by mouth in the morning. 30 tablet 1 05/24/2023 07/23/2023 Active Problems Problem Classification Problem Date Documented Date Episodic/Chronic Administrative/socia l admission (1 source) Patient encounter status; Translations: [Persons encountering health services in other specified circumstances] Onset: 4 05-24-2023 Episodic Cardiac dysrhythmias (2 sources) Unspecified atrial fibrillation; Translations: [Paroxysmal atrial fibrillation] Onset: 9 05-24-2023 Chronic Chronic kidney disease (1 source) Chronic kidney disease stage 3A ; Translations: [Stage 3a chronic kidney disease (HCC)] Onset: 4 05-24-2023 Chronic Congestive heart failure; nonhypertensive (1 source) Chronic systolic heart failure; Translations: [Chronic systolic (congestive) heart failure] Onset: 4 05-24-2023 Chronic Deficiency and other anemia (1 source) Normocytic anemia; Translations: [Anemia, unspecified] Onset: 4 05-24-2023 Episodic Disorders of lipid metabolism (1 source) Pure hypercholesterolemia, unspecified; Translations: [PURE HYPERCHOLESTEROLEMIA UNSPEC] Onset: Essential hypertension (2 sources) Essential (primary) hypertension; Translations: [Essential hypertension] Onset: 9 05-24-2023 Chronic Fluid and electrolyte disorders (2 sources) Dehydration; Translations: [Hypokalemia] Onset: 9 Episodic Genitourinary symptoms and ill-defined conditions (3 sources) Hematuria, unspecified; Translations: [HEMATURIA UNSPECIFIED] Onset: 9 Episodic Malaise and fatigue (1 source) Other fatigue; Translations: [OTHER FATIGUE] Onset: 9 Episodic Other aftercare (1 source) intermediate (current) use of anticoagulants; Translations: [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 CURRNT USE ANTICOAGULANTS] Onset: 9 Episodic Other aftercare (1 source) intermediate (current) use of aspirin; Translations: [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 CURRENT USE OF ASPIRIN] Onset: 9 Episodic Other aftercare (1 source) Other assisted (current) drug therapy; Translations: [OTH DETENTION CURRENT DRUG THERAPY] Onset: 9 Episodic Other diseases of veins and lymphatics (1 source) Venous insufficiency of leg; Translations: [Venous insufficiency (chronic) (peripheral)] Onset: 4 05-24-2023 Episodic Urinary tract infections (1 source) Acute cystitis with hematuria; Translations: [ACUTE CYSTITIS WITH HEMATURIA] Onset: 9 Episodic Results Test Name Value Interpretation Reference Range Facil ity ALL CBC WITH AUTO DIFFon BASOPHILS ABSOLUTE AUTO 0.1 [facility] Basophils/100 WBC (Bld) 1.4 % 0.2 - 2.0 % [facility] Eosinophils/100 WBC (Bld) 1.6 % 0.9 - 7.0 % [facility] Erythrocyte distribution width (RBC) [Ratio] 19.9 % High 11.0 - 15.0 % [facility] Hematocrit (Bld) [Volume fraction] 39.1 % Low 42.0 - 54.0 % [facility] [Mass/Vol] 11.6 g/dL Low 14.0 - 18.0 g/dL [facility] IMMATURE GRANULOCYTES ABS AUTO 0.02 [facility] Immature granulocytes/100 WBC (Bld) 0.2 % 0.0 - 0.5 % [facility] Interpretation and review of laboratory results Abnormal [facility] LYMPHOCYTES ABSOLUTE AUTO 1.5 [facility] Lymphocytes/100 WBC (Bld) 16.6 % Low 20.5 - 60.0 % [facility] MCH (RBC) [Entitic mass] 23.7 pg Low 25.9 - 34.0 pg [facility] MCHC (RBC) [Mass/Vol] 29.7 g/dL Low 29.9 - 35.2 g/dL [facility] MCV (RBC) [Entitic vol] 79.8 fL Low 80.0 - 94.0 fL [facility] MONOCYTES ABSOLUTE AUTO 0.6 [facility] Monocytes/100 WBC (Bld) 6.6 % 1.7 - 12.0 % [facility] NEUTROPHILS ABSOLUTE [facility]O 6.5 [facility] Neutrophils/100 WBC (Bld) 73.6 % 43.0 - 75.0 % [facility] Platelet mean volume (Bld) [Entitic vol] 9.2 fL Low 9.5 - 13.5 fL [facility] # 0.1 [facility] PLT 360 [facility] RBC 4.90 [facility] WBC 8.8 [facility] CULTURE URINEon 12-16-2018 CULTURE URINE Isolate 1 Escherichia coli >100,000 cfu/ml of ORGANISM 1 Escherichia coli ANTIBIOTIC M.I.C RX STATUS Ampicillin 8 S F Ampicillin/Sulbacta m 4 S F Piperacillin/Tazoba ctam <=4 S F Cefazolin <=4 S F Ceftazidime <=1 S F Ceftriaxone <=1 S F Ertapenem <=0.5 S F Imipenem <=0.25 S F Amikacin <=2 S F Gentamicin <=1 S F Tobramycin <=1 S F Ciprofloxacin <=0.25 S F Levofloxacin <=0.12 S F Nitrofurantoin <=16 S F Trimethoprim/Sulfam ethoxazole <=20 S F Normal [facility] Comment on above: Performed By: #### U RCX #### [facility] [address] [place] [address] Rahul Nolan CARDIAC LEONOR ADMITon 019 CK [Catalytic activity/Vol] 116 U/L Normal 55-170 [facility] Comment on above: Performed By: #### L IVER, BMP, CMADM, LIPA #### [facility] [address] [place], [place] [address] Rahul Nolan CK.MB [Mass/Vol] 1.36 ng/mL Normal <=2.37 [facility] Comment on above: Performed By: #### L IVER, BMP, CMADM, LIPA #### [facility] [address] [place] [address] Rahul An INR Coag (Bld) [Relative time] SEE BELOW Normal [facility] Comment on above: Result Comment: <0.0 34 ng/ml NEGATIVE 0.034-0.119 INDETERMINATE 0.120 AMI CUT OFF Performed By: #### L IVER, BMP, CMADM, LIPA #### [facility] [address] [place] [address] Rahul An PHAM 112.0 ng/mL Normal <=121.0 [facility] Comment on above: Performed By: #### L IVER, BMP, CMADM, LIPA #### [facility] [address] [place] [address] Rahul An TROP <0.017 Normal <=0.034 [facility] Comment on above: Performed By: #### L IVER, BMP, CMADM, LIPA #### [facility] [address] [place] [address] Rahul An CBC AUTO DIFFon 12-14-2018 Basophils (Bld) [#/Vol] 0.1 103/ul Normal 0.0-0.1 [facility] Comment on above: Performed By: #### C BC #### [facility] [address] [place] [address] Rahul An Basophils/100 WBC (Bld) 0.7 % Normal 0.2-2.0 [facility] Comment on above: Performed By: #### C BC #### [facility] [address] [place] [address] Rahul An Eosinophils (Bld) [#/Vol] 0.0 103/ul Normal 0.0-0.7 [facility] Comment on above: Performed By: #### C BC #### [facility] [address] [place] [address] Rahul An Eosinophils/100 WBC (Bld) 0.2 % Critically low 0.9-7.0 [facility] Comment on above: Performed By: #### C BC #### [facility] [address] [place] [id number] Rahul An Erythrocyte distribution width (RBC) [Ratio] 14.8 % Normal 11.0-15.0 [facility] Comment on above: Performed By: #### C BC #### [facility] [address] [place] [id number] Rahul An Hematocrit (Bld) [Volume fraction] 52.1 % Normal 42.0-54.0 [facility] Comment on above: Performed By: #### C BC #### [facility] [address] [place] [phone] Rahul An Hemoglobin (Bld) [Mass/Vol] 17.3 g/dL Normal 14.0-18.0 [facility] Comment on above: Performed By: #### C BC #### [facility] [address] [place] [address] Rahul An IG # 0.10 10e3/ul Critically high 0.00-0.03 [facility] Comment on above: Performed By: #### C BC #### [facility] [address] [place] [phone] Rahul An IG % 0.6 % Critically high 0.0-0.5 [facility] Comment on above: Performed By: #### C BC #### [facility] [address] [place] [phone] Rahul An Lymphocytes (Bld) [#/Vol] 1.9 103/ul Normal 1.2-3.8 [facility] Comment on above: Performed By: #### C BC #### [facility] [address] [place] [phone] Rahul An Lymphocytes/100 WBC (Bld) 11.5 % Critically low 20.5-60.0 [facility] Comment on above: Performed By: #### C BC #### [facility] [address] [place] [phone] Rahul An MANUAL DIFF REQ NO Normal [facility] Comment on above: Performed By: #### C BC #### [facility] [address] [place], [place] [address] Rahulkeya Doveen MCH (RBC) [Entitic mass] 30.0 pg Normal 25.9-34.0 [facility] Comment on above: Performed By: #### C BC #### [facility] [address] [place] [address] Rahulkeya Nolan MCHC (RBC) [Mass/Vol] 33.2 g/dL Normal 29.9-35.2 [facility] Comment on above: Performed By: #### C BC #### [facility] [address] [place] [address] Rahul An MCV (RBC) [Entitic vol] 90.5 fL Normal 80.0-94.0 [facility] Comment on above: Performed By: #### C BC #### [facility] [address] [place] [address] Rahul An Monocytes (Bld) [#/Vol] 1.2 103/ul Critically high 0.3-0.8 [facility] Comment on above: Performed By: #### C BC #### [facility] [address] [place] [address] Rahul An Monocytes/100 WBC (Bld) 7.0 % Normal 1.7-12.0 [facility] Comment on above: Performed By: #### C BC #### [facility] [address] [place] [address] Rahul An Neutrophils (Bld) [#/Vol] 13.3 103/ul Critically high 1.4-6.5 [facility] Comment on above: Performed By: #### C BC #### [facility] [address] [place] [address] Rahul An Neutrophils/100 WBC (Bld) 80.0 % Critically high 43.0-75.0 [facility] Comment on above: Performed By: #### C BC #### [facility] [address] [place] [address] Rahul An Platelet mean volume (Bld) [Entitic vol] 9.9 fL Normal 9.5-13.5 [facility] Comment on above: Performed By: #### C BC #### [facility] [address] [place] [address] Rahul An Platelets (Bld) [#/Vol] 366 103/ul Normal 150-450 [facility] Comment on above: Performed By: #### C BC #### [facility] [address] [place], [place] [phone] Rahul An RBC (Bld) [#/Vol] 5.76 106/ul Normal 4.70-6.10 [facility] Comment on above: Performed By: #### C BC #### [facility] [address] [place], [place] [phone] Rahul An WBC (Bld) [#/Vol] 16.6 103/ul Critically high 4.0-11.0 [facility] Comment on above: Performed By: #### C BC #### [facility] [address] [place], [place] [phone] Rahul An ER URINE PROFILEon 9 Bilirubin [Mass/Vol] MODERATE Normal NEGATIVE [facility] Comment on above: Performed By: #### JANNY CLOUD #### [facility] [address] [place], [place] [phone] Rahul An BLOOD LARGE Normal NEGATIVE [facility] Comment on above: Performed By: #### JANNY CLOUD #### [facility] [address] [place], [place] [phone] Rahul An Clarity (U) CLEAR Normal [facility] Comment on above: Performed By: #### JANNY CLOUD #### [facility] [address] [place], [place] [phone] Rahul An Color (U) DK. ORANGE Normal YELLOW [facility] Comment on above: Performed By: #### JANNY CLOUD #### [facility] [address] [place], [place] [phone] Rahul An ERUAHD A micrscopic examination will be performed if indicated. Normal [facility] Comment on above: Performed By: #### JANNY CLOUD #### [facility] [address] [place] [address] Rahul An Glucose [Mass/Vol] Negative Normal NEGATIVE [facility] Comment on above: Performed By: #### JANNY CLOUD #### [facility] [address] [place] [address] Rahul An Ketones Ql (U) TRACE Normal NEGATIVE [facility] Comment on above: Performed By: #### JAMES CLOUDRO #### [facility] [address] [place] [address] Rahul An Nitrite Ql (U) Positive Normal NEGATIVE [facility] Comment on above: Performed By: #### JAMES CLOUDRO #### [facility] [address] [place] [address] Rahul An pH (Bld) 6.0 Normal 5-9 [facility] Comment on above: Performed By: #### JANNY CLOUD #### [facility] [address] [place] [address] Rahul An Protein (U) [Mass/Vol] mg/dL Normal [facility] Comment on above: Performed By: #### JAMES CLOUDRO #### [facility] [address] [place] [address] Rahul An SPEC GRAVITY 1.025 Normal 1.005-<=1.025 [facility] Comment on above: Performed By: #### JAMES CLOUDRO #### [facility] [address] [place], [place] [phone] Rahul An UR MICRO IND INDICATED Normal [facility] Comment on above: Performed By: #### JAMES CLOUDRO #### [facility] [address] [place], [place] [phone] Rahul An Urobilinogen Qn (U) 2.0 EU/dl Normal [facility] Comment on above: Performed By: #### JAMES CLOUDRO #### [facility] [address] [place], [place] [phone] Rahul An WBC (Bld) [#/Vol] SMALL Normal NEGATIVE [facility] Comment on above: Performed By: #### JANNY CLOUD #### [facility] [address] [place], [place] [address] Rahul An LIPASEon 12-14-2018 Lipase [Catalytic activity/Vol] 160.0 U/L Normal 23.0-300.0 [facility] Comment on above: Performed By: #### L IVER, BMP, CMADM, LIPA #### [facility] [address] [place], [place] [phone] Rahul An LIVER PROFILEon 12-14-2018 Albumin [Mass/Vol] 3.8 g/dL Normal 3.5-5.0 [facility] Comment on above: Performed By: #### L IVER, BMP, CMADM, LIPA #### [facility] [address] [place] [address] Rahul An Albumin/Globulin [Mass ratio] 0.7 {ratio} Normal [facility] Comment on above: Performed By: #### L IVER, BMP, CMADM, LIPA #### [facility] [address] [place] [address] Rahul An ALP [Catalytic activity/Vol] 84 U/L Normal 38-126 [facility] Comment on above: Performed By: #### L IVER, BMP, CMADM, LIPA #### [facility] [address] [place] [address] Rahul An ALT [Catalytic activity/Vol] 51 U/L Normal 21-72 [facility] Comment on above: Performed By: #### L IVER, BMP, CMADM, LIPA #### [facility] [address] [place] [address] Rahul An AST [Catalytic activity/Vol] 22 U/L Normal 17-59 [facility] Comment on above: Performed By: #### L IVER, BMP, CMADM, LIPA #### [facility] [address] [place], [place] [phone] Rahul An BILI, CONJUGATED 0.3 mg/dL Normal 0.0-0.3 [facility] Comment on above: Performed By: #### L IVER, BMP, CMADM, LIPA #### [facility] [address] [place] [address] Rahul An Bilirubin Ql (U) 1.2 mg/dL Normal 0.2-1.3 [facility] Comment on above: Performed By: #### L IVER, BMP, CMADM, LIPA #### [facility] [address] [place] [address] Rahul An Globulin (S) [Mass/Vol] 5.3 g/dL Normal [facility] Comment on above: Performed By: #### L IVER, BMP, CMADM, LIPA #### [facility] [address] [place] [address] Rahul An Protein [Mass/Vol] 9.1 g/dL Critically high 6.1-8.2 [facility] Comment on above: Performed By: #### L IVER, BMP, CMADM, LIPA #### [facility] [address] [place] [address] Rahul An PROF CHEM 8 (BAS METB)on Anion gap [Moles/Vol] 13.0 mmol/L Normal [facility] Comment on above: Performed By: #### L IVER, BMP, CMADM, LIPA #### [facility] [address] [place] [address] Rahul An Calcium [Mass/Vol] 8.5 mg/dL Normal 8.4-10.2 [facility] Comment on above: Performed By: #### L IVER, BMP, CMADM, LIPA #### [facility] [address] [place] [address] Rahul An Chloride [Moles/Vol] 96 mmol/L Critically low 98-107 [facility] Comment on above: Performed By: #### L IVER, BMP, CMADM, LIPA #### [facility] [address] [place] [address] Rahul An CO2 [Moles/Vol] 31.0 mmol/L Critically high 22.0-30.0 [facility] Comment on above: Performed By: #### L IVER, BMP, CMADM, LIPA #### [facility] [address] [place] [address] Rahul An Creatinine [Mass/Vol] 1.53 mg/dL Critically high 0.66-1.25 [facility] Comment on above: Performed By: #### L IVER, BMP, CMADM, LIPA #### [facility] [address] [place] [address] Rahul An EGFR-AF [place] 56 mL/min/1.73m2 Critically low >=60 [facility] Comment on above: Performed By: #### L IVER, BMP, CMADM, LIPA #### [facility] [address] [place] [address] Rahul An EGFR-NON AF [place]ESE 46 mL/min/1.73m2 Critically low >=60 [facility] Comment on above: Performed By: #### L IVER, BMP, CMADM, LIPA #### [facility] [address] [place] [address] Rahul An Glucose [Mass/Vol] 135 mg/dL Critically high 74-106 [facility] Comment on above: Performed By: #### L IVER, BMP, CMADM, LIPA #### [facility] [address] [place] [address] Rahul An Potassium [Moles/Vol] 3.0 mmol/L Critically low 3.4-5.0 [facility] Comment on above: Performed By: #### L IVER, BMP, CMADM, LIPA #### [facility] [address] [place] [address] Rahul An Sodium [Moles/Vol] 137 mmol/L Normal 137-145 [facility] Comment on above: Performed By: #### L IVER, BMP, CMADM, LIPA #### [facility] [address] [place] [address] Rahul An Urea nitrogen [Mass/Vol] 14.0 mg/dL Normal 9.0-20.0 [facility] Comment on above: Performed By: #### L IVER, BMP, CMADM, LIPA #### [facility] [address] [place], [place] [phone] Rahul An Urea nitrogen/Creatinine [Mass ratio] 9.2 mg/mg Normal [facility] Comment on above: Performed By: #### L FAUSTO, MAURISIO, CMADM, LIPA #### [facility] [address] [place] [address] Rahul An PROTIMEon 12-14-2018 INR Coag (PPP) [Relative time] 1.14 {INR} Normal [facility] Comment on above: Performed By: #### P T, PTT #### [facility] [address] [place], [place] [phone] Rahul An PT Coag (PPP) [Time] PLEASE NOTE: NORMAL RANGE CHANGE 01-23-2014 DUE TO REAGENT LOT CHANGE [facility] Comment on above: Performed By: #### P T, PTT #### [facility] [address] [place] [address] Rahul An PT Coag (PPP) [Time] 11.8 s Critically high 9.0-11.6 [facility] Comment on above: Performed By: #### P T, PTT #### [facility] [address] [place], [place] [phone] Rahul An PT Coag (PPP) [Time] SEE BELOW Normal [facility] Comment on above: Result Comment: FRANK RED INR: 2.0 - 3.0 CONDITIONS NOT LISTED BELOW 2.5 - 3.5 FOR PROSTHETIC HEART VALVE REPLACEMENT 2.5 - 3.5 RECURRENT THROMBOSIS Performed By: #### P T, PTT #### [facility] [address] [place], [place] [phone] Rahul An PTTon 12-14-2018 aPTT Coag (Bld) [Time] 35.0 s Normal 22.3-36.2 [facility] Comment on above: Performed By: #### P T, PTT #### [facility] [address] [place], [place] [phone] Rahul An aPTT Coag (Bld) [Time] PLEASE NOTE: NORMAL RANGE CHANGE 04-01-2015 DUE TO REAGENT LOT CHANGE Normal [facility] Comment on above: Performed By: #### P T, PTT #### [facility] [address] [place], [place] [phone] Rahul An URINE MICROSCOPIC ONLYon Bacteria LM.HPF (Urine sed) [#/Area] MODERATE Normal NONE SEEN [facility] Comment on above: Performed By: #### E STERLING, UMICRO #### [facility] [address] [place] [address] Rahul An CAST NONE SEEN Normal NONE SEEN The [facility] Comment on above: Performed By: #### Bigg KATZ UMICRO #### [facility] [address] [place], [place] [id number] Rahul An Crystals LM Nom (Urine sed) NONE SEEN Normal NONE SEEN [facility] Comment on above: Performed By: #### Bigg KATZ UMICRO #### [facility] [address] [place] [address] Rahul An CULTURE INDICATED Normal [facility] Comment on above: Performed By: #### Bigg KATZ UMICRO #### [facility] [address] [place] [address] Rahul An Epithelial cells LM.HPF (Urine sed) [#/Area] RARE Normal [facility] Comment on above: Performed By: #### Bigg KATZ UMICRO #### [facility] [address] [place] [address] Rahul An MUCOUS NONE SEEN Normal NONE SEEN [facility] Comment on above: Performed By: #### Bigg KATZ UMICRO #### [facility] [address] [place] [address] Rahul An RBC (U) [#/Vol] 20-50 Normal 0-2 [facility] Comment on above: Performed By: #### Bigg KATZ UMICRO #### [facility] [address] [place] [address] Rhaul An WBC (Bld) [#/Vol] >100 Normal NONE SEEN [facility] Comment on above: Performed By: #### Bigg KATZ UMICRO #### [facility] [address], [place] [address] Rahul Nolan Encounters Encounter Date Encounter Type Care Provider Facility Start: 06-28-2023 End: 06-28-2023 ambulatory SHAIKH LARRY Not Available Start: 06-22-2023 Clinisync Result Encounter Shaikh Larry MCCALL Work Phone: [facility] Unsolicited Start: 06-22-2023 Clinisync Result Encounter Shaikh Larry MCCALL Work Phone: [facility] Unsolicited Start: 05-24-2023 End: 05-24-2023 ambulatory SHAIKH LARRY Not Available Start: 12-14-2018 End: 12-14-2018 Patient encounter procedure DOCTOR MISC Facility: Procedures Date Procedure Procedure Detail Performing Clinician Start: 06-22-2023 ALL CBC WITH AUTO DIFF Shaikh Larry MCCALL Work Phone: Plan of Treatment Date Care Activity Detail Author Start: 06-28-2023 End: 06-28-2023 Patient encounter procedure 06/28/2023 1:30 PM EST Office Visit [facility] [address] [place] [id number] Shaikh Levin MD [address] [place] [address] [facility] Start: 01-06-2023 Influenza vaccination Influenza Vacc ine (#1) [facility] Start: 1961 Pneumococcal Vaccine : 65+ Years (1 - PCV) Pneumococcal Vaccine: 65+ Years (1 - PCV) [facility] Start: 1955 Screening for malign ant neoplasm of colon [facility] Immunizations Immunization Date Immunization Notes Care Provider Fa cility 04-21-2021 influenza virus vacc ine, unspecified formulation Shaikh Larry MCCALL Work Phone: [facility] Payers Date Payer Category Payer Medicare MEDICARE MEDICAR E PART B [id number] 2019-[place] [address] [place] [address] Medicare [id number] 2019 Medicare [id number] 2019 Unknown BCBS BCBS xxxxxx [id number] 2019-Present [phone] [address] [place] [address] [id number] 2019 Unknown [id number] 1959 Unknown [id number] 1954 Unknown [id number] 1954 Unknown [id number] 1954 Unknown [id number] Social History Date Type Detail Facility Start: 05-24-2023 Tobacco smoking stat [facility] Never smoked tobacco [facility] Start: 05-24-2023 Tobacco use and exposure Smokeless t obacco non-user [facility] Start: 05-24-2023 Alcohol intake Lifetime non-d xochitl (finding) [facility] Start: 05-24-2023 History of Social function [facility] Start: 05-24-2023 Tobacco use panel [facility] Start: 1955 Sex Assigned At Not on file [facility] Summary Purpose Family History No Family History Records FoundNo Family History Records Found Advance Directives No Advanced Directives Records FoundNo Advanced Directives Records Found Additional Source Comments (unrecognized sect ion and content) No Status Records FoundNo Status Records Found INFORMATION SOURCE (unrecogn ized section and content) DATE CREATED AUTHOR 12/19/2018 [facility] DATE CREATED AUTHOR AUTHOR'S ORGANIZ ATION 07/06/2023 [facility] [employer] Care Teams (unrecognized sec tion and content) Community Development Aide Relationship Specialty Start Date End Date Shaikh Levin MD PCP - General Internal Medicine 05/24/23 FOR RECORDS PERTAINING TO PATIENTS WHO ARE [...] BE BASED ON THE PRIMARY CLINICAL RECORDS. [facility]. provides no warranty or guarantee of the accuracy or completeness of information in this document.
== END 2023-07-13 13:21 | disposition home or self-care (01) ==
PROVIDERS: PCP Internal Medicine; Visit Provider Internal Medicine
DX: I87.2 Venous insufficiency (chronic) (peripheral) (principal); R60.0 Localized edema
CPT/HCPCS: 93970; G0463

== ENCOUNTER 2024-06-05 16:39 | Inpatient (IN) | payer MEDICARE, OTHER, BC, SELFPAY ==
[2024-06-05] VITALS (52 sets, daily range): BP systolic 132–184; BP diastolic 93–143; PULSE 71–150; TEMP 36.6; O2SAT 95–100; BMI 22.2
--- OUTSIDE RECORDS SUMMARY | 2024-06-05 16:46 | XMS_ITS | CCD ---
Author Organization [facility] Care Team Providers Care Salesforce Specialist Name Role Phone MARIBEL, DOCTOR Primary Care Unavailable PAY, PETR Admitting Unavailable PAY, PETR Attending Unavailable PAY, PETR Consulting Unavailable Shaikh Levin MD Primary Care Provider SHAIKH LEVIN Attending Unavailable SHAIKH LEVIN Attending Unavailable SHAIKH LEVIN Attending [...] sources) Hematuria, unspecified; Translations: [HEMATURIA UNSPECIFIED] Onset: 08-09-201 9 Episodic Malaise and fatigue (1 source) Other fatigue; Translations: [OTHER FATIGUE] Onset: 9 Episodic Other aftercare (1 source) alf (current) use of anticoagulants; Translations: [LONGTERM CURRNT USE ANTICOAGULANTS] Onset: 9 Episodic Other aftercare (1 source) alf (current) use of aspirin; Translations: [LONGTERM CURRENT USE OF ASPIRIN] Onset: 9 Episodic Other aftercare (1 source) 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; Translations: [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] Onset: 9 Episodic Other diseases of veins and lymphatics (1 source) Venous insufficiency of leg; Translations: [Venous insufficiency (chronic) (peripheral)] Onset: 4 05-24-2023 Episodic Urinary tract infections (1 source) Acute cystitis with hematuria; Translations: [ACUTE CYSTITIS WITH HEMATURIA] Onset: 9 Episodic Results Test Name Value Interpretation Reference Range Facil ity ALL CBC WITH AUTO DIFFon BASOPHILS ABSOLUTE AUTO 0.1 [facility] Basophils/100 WBC (Bld) 1.4 % 0.2 - 2.0 % [facility] Eosinophils/100 WBC (Bld) 1.6 % 0.9 - 7.0 % [facility] Erythrocyte distribution width (RBC) [Ratio] 19.9 % High 11.0 - 15.0 % [facility] Hematocrit (Bld) [Volume fraction] 39.1 % Low 42.0 - 54.0 % [facility] [Mass/Vol] 11.6 g/dL Low 14.0 - 18.0 g/dL [facility] IMMATURE GRANULOCYTES ABS AUTO 0.02 [facility] Immature granulocytes/100 WBC (Bld) 0.2 % 0.0 - 0.5 % [facility] Interpretation and review of laboratory results Abnormal [facility] LYMPHOCYTES ABSOLUTE AUTO 1.5 [facility] Lymphocytes/100 WBC (Bld) 16.6 % Low 20.5 - 60.0 % [facility] MCH (RBC) [Entitic mass] 23.7 pg Low 25.9 - 34.0 pg [facility] MCHC (RBC) [Mass/Vol] 29.7 g/dL Low 29.9 - 35.2 g/dL [facility] MCV (RBC) [Entitic vol] 79.8 fL Low 80.0 - 94.0 fL [facility] MONOCYTES ABSOLUTE AUTO 0.6 [facility] Monocytes/100 WBC (Bld) 6.6 % 1.7 - 12.0 % [facility] NEUTROPHILS ABSOLUTE AUTO 6.5 [facility] Neutrophils/100 WBC (Bld) 73.6 % 43.0 - 75.0 % [facility] Platelet mean volume (Bld) [Entitic vol] 9.2 fL Low 9.5 - 13.5 fL [facility] EO # 0.1 [facility] PLT 360 [facility] RBC 4.90 [facility] WBC 8.8 [facility] CULTURE URINEon 12-16-2018 CULTURE URINE [...] Trimethoprim/Sulfam ethoxazole <=20 S F Normal The [facility] Comment on above: Performed By: #### U RCX #### [facility] [address] [place] [address] Rahul Nolan CARDIAC LEONOR ADMITon 019 CK [Catalytic activity/Vol] 116 U/L Normal 55-170 [facility] Comment on above: Performed By: #### L MAURISIO LAMBERT CMADM, LIPA #### [facility] [address] [place] [address] Rahul Nolan CK.MB [Mass/Vol] 1.36 ng/mL Normal <=2.37 The [facility] Comment on above: Performed By: #### L MAURISIO LAMBERT, SILVIA, LIPA #### [facility] [address] [place] [address] Rahul Na INR Coag (Bld) [Relative time] SEE BELOW Normal The [facility] Comment on above: Result Comment: <0.0 34 ng/ml NEGATIVE 0.034-0.119 INDETERMINATE 0.120 AMI CUT OFF Performed By: #### L IVER, BMP, CMADM, LIPA #### [facility] [address] [place] [address] Rahul An PHAM 112.0 ng/mL Normal <=121.0 The [facility] Comment on above: Performed By: #### L IVER, BMP, CMADM, LIPA #### [facility] [address] [place] [address] Rahul An TROP <0.017 Normal <=0.034 [facility] Comment on above: Performed By: #### L IVER, BMP, CMADM, LIPA #### [facility] [address] [place] [address] Rahul An CBC AUTO DIFFon 12-14-2018 Basophils (Bld) [#/Vol] 0.1 103/ul Normal 0.0-0.1 [facility] Comment on above: Performed By: #### C BC #### [facility] [address] [place] [address] Rahul An Basophils/100 WBC (Bld) 0.7 % Normal 0.2-2.0 [facility] Comment on above: Performed By: #### C BC #### [facility] [address] [place] [address] Rahul An Eosinophils (Bld) [#/Vol] 0.0 103/ul Normal 0.0-0.7 [facility] Comment on above: Performed By: #### C BC #### [facility] [address] [place] [address] Rahul An Eosinophils/100 WBC (Bld) 0.2 % Critically low 0.9-7.0 [facility] Comment on above: Performed By: #### C BC #### [facility] [address] [place] [address] Rahul An Erythrocyte distribution width (RBC) [Ratio] 14.8 % Normal 11.0-15.0 [facility] Comment on above: Performed By: #### C BC #### [facility] [address] [place] [address] Rahul Nolan Hematocrit (Bld) [Volume fraction] 52.1 % Normal 42.0-54.0 [facility] Comment on above: Performed By: #### C BC #### [facility] [address] [place] [address] Rahul Nolan Hemoglobin (Bld) [Mass/Vol] 17.3 g/dL Normal 14.0-18.0 [facility] Comment on above: Performed By: #### C BC #### [facility] [address] [place] [address] Rahulkeya Nolan IG # 0.10 10e3/ul Critically high 0.00-0.[address] [facility] Comment on above: Performed By: #### C BC #### [facility] [address] [place] [address] Rahul Nolan IG % 0.6 % Critically high 0.0-0.5 The [facility] Comment on above: Performed By: #### C BC #### [facility] [address] [place] [address] Rahul Nolan Lymphocytes (Bld) [#/Vol] 1.9 103/ul Normal 1.2-3.8 [facility] Comment on above: Performed By: #### C BC #### [facility] [address] [place] [address] Rahul Nolan Lymphocytes/100 WBC (Bld) 11.5 % Critically low 20.5-60.0 [facility] Comment on above: Performed By: #### C BC #### [facility] [address] [place], [place] [id number] Rahul Nolan MANUAL DIFF REQ NO Normal The [facility] Comment on above: Performed By: #### C BC #### [facility] [address] [place], [place] [id number] Rahul Nolan MCH (RBC) [Entitic mass] 30.0 pg Normal 25.9-34.0 [facility] Comment on above: Performed By: #### C BC #### [facility] [address] [place], [place] [id number] Rahulkeya Nolan MCHC (RBC) [Mass/Vol] 33.2 g/dL Normal 29.9-35.2 [facility] Comment on above: Performed By: #### C BC #### [facility] [address] [place], [place] [id number] Rahulkeya Doveen MCV (RBC) [Entitic vol] 90.5 fL Normal 80.0-94.0 [facility] Comment on above: Performed By: #### C BC #### [facility] [address] [place] [address] Rahul An Monocytes (Bld) [#/Vol] 1.2 103/ul Critically high 0.3-0.8 [facility] Comment on above: Performed By: #### C BC #### [facility] [address] [place] [address] Rahul An Monocytes/100 WBC (Bld) 7.0 % Normal 1.7-12.0 [facility] Comment on above: Performed By: #### C BC #### [facility] [address] [place] [address] Rahul An Neutrophils (Bld) [#/Vol] 13.3 103/ul Critically high 1.4-6.5 The [facility] Comment on above: Performed By: #### C BC #### [facility] [address] [place] [address] Rahul An Neutrophils/100 WBC (Bld) 80.0 % Critically high 43.0-75.0 [facility] Comment on above: Performed By: #### C BC #### [facility] [address] [place], [place] [phone] Rahul An Platelet mean volume (Bld) [Entitic vol] 9.9 fL Normal 9.5-13.5 The [facility] Comment on above: Performed By: #### C BC #### [facility] [address] [place], [place] [phone] Rahul An Platelets (Bld) [#/Vol] 366 103/ul Normal 150-450 [facility] Comment on above: Performed By: #### C BC #### [facility] [address] [place], [place] [phone] Rahul An RBC (Bld) [#/Vol] 5.76 106/ul Normal 4.70-6.10 The [facility] Comment on above: Performed By: #### C BC #### [facility] [address] [place], [place] [phone] Rahul An WBC (Bld) [#/Vol] 16.6 103/ul Critically high 4.0-11.0 [facility] Comment on above: Performed By: #### C BC #### [facility] [address] [place], [place] [phone] Rahul An ER URINE PROFILEon 9 Bilirubin [Mass/Vol] MODERATE Normal NEGATIVE [facility] Comment on above: Performed By: #### JANNY CLOUD #### [facility] [address] [place], [place] [phone] Rahul An BLOOD LARGE Normal NEGATIVE [facility] Comment on above: Performed By: #### JANNY CLOUD #### [facility] [address] [place], [place] [phone] Rahul An Clarity (U) CLEAR Normal [facility] Comment on above: Performed By: #### JANNY CLOUD #### [facility] [address] [place], [place] [phone] Rahul An Color (U) DK. ORANGE Normal YELLOW The [facility] Comment on above: Performed By: #### JANNY CLOUD #### [facility] [address] [place], [place] [phone] Rahul An ERUAHD A micrscopic examination will be performed if indicated. Normal The [facility] Comment on above: Performed By: #### JANNY CLOUD #### [facility] [address] [place], [place] [phone] Rahul An Glucose [Mass/Vol] Negative Normal NEGATIVE The [facility] Comment on above: Performed By: #### Bigg KATZ UMICRO #### [facility] [address] [place], [place] [phone] Rahul An Ketones Ql (U) TRACE Normal NEGATIVE [facility] Comment on above: Performed By: #### Bigg KATZ UMICRO #### [facility] [address] [place], [place] [phone] Rahul An Nitrite Ql (U) Positive Normal NEGATIVE [facility] Comment on above: Performed By: #### Bigg KATZ UMICRO #### [facility] [address] [place], [place] [phone] Rahul An pH (Bld) 6.0 Normal 5-9 [facility] Comment on above: Performed By: #### Bigg KATZ UMICRO #### [facility] [address] [place], [place] [phone] Rahul An Protein (U) [Mass/Vol] mg/dL Normal [facility] Comment on above: Performed By: #### Bigg KATZ UMICRO #### [facility] [address] [place], [place] [phone] Rahul An SPEC GRAVITY 1.025 Normal 1.005-<=1.025 [facility] Comment on above: Performed By: #### Bigg KATZ UMICRO #### [facility] [address] [place], [place] [phone] Rahul An UR MICRO IND INDICATED Normal [facility] Comment on above: Performed By: #### Bigg KATZ UMICRO #### [facility] [address] [place], [place] [phone] Rahul An Urobilinogen Qn (U) 2.0 EU/dl Normal [facility] Comment on above: Performed By: #### JAMES CLOUDRO #### [facility] [address] [place], [place] [phone] Rahul An WBC (Bld) [#/Vol] SMALL Normal NEGATIVE [facility] Comment on above: Performed By: #### JAMES CLOUDRO #### [facility] [address] [place], [place] [phone] Rahul An LIPASEon 12-14-2018 Lipase [Catalytic activity/Vol] 160.0 U/L Normal 23.0-300.0 [facility] Comment on above: Performed By: #### L IVER, BMP, CMADM, LIPA #### [facility] [address] [place] [address] Rahul An LIVER PROFILEon 12-14-2018 Albumin [Mass/Vol] 3.8 g/dL Normal 3.5-5.0 [facility] Comment on above: Performed By: #### L IVER, BMP, CMADM, LIPA #### [facility] [address] [place] [address] Rahul An Albumin/Globulin [Mass ratio] 0.7 {ratio} Normal [facility] Comment on above: Performed By: #### L IVER, BMP, CMADM, LIPA #### [facility] [address] [place] [address] Rahul An ALP [Catalytic activity/Vol] 84 U/L Normal 38-126 The [facility] Comment on above: Performed By: #### L IVER, BMP, CMADM, LIPA #### [facility] [address] [place] [address] Rahul An ALT [Catalytic activity/Vol] 51 U/L Normal 21-72 [facility] Comment on above: Performed By: #### L IVER, BMP, CMADM, LIPA #### [facility] [address] [place] [address] Rahul An AST [Catalytic activity/Vol] 22 U/L Normal 17-59 The [facility] Comment on above: Performed By: #### L IVER, BMP, CMADM, LIPA #### [facility] [address] [place] [address] Rahul An BILI, CONJUGATED 0.3 mg/dL Normal 0.0-0.3 [facility] Comment on above: Performed By: #### L IVER, BMP, CMADM, LIPA #### [facility] [address] [place] [address] Rahul An Bilirubin Ql (U) 1.2 mg/dL Normal 0.2-1.3 [facility] Comment on above: Performed By: #### L IVER, BMP, CMADM, LIPA #### [facility] [address] [place] [address] Rahul An Globulin (S) [Mass/Vol] 5.3 g/dL Normal [facility] Comment on above: Performed By: #### L IVER, BMP, CMADM, LIPA #### [facility] [address] [place] [address] Rahul An Protein [Mass/Vol] 9.1 g/dL Critically high 6.1-8.2 [facility] Comment on above: Performed By: #### L IVER, BMP, CMADM, LIPA #### [facility] [address] [place] [address] Rahul An PROF CHEM 8 (BAS METB)on Anion gap [Moles/Vol] 13.0 mmol/L Normal [facility] Comment on above: Performed By: #### L IVER, BMP, CMADM, LIPA #### [facility] [address] [place] [address] Rahul An Calcium [Mass/Vol] 8.5 mg/dL Normal 8.4-10.2 [facility] Comment on above: Performed By: #### L IVER, BMP, CMADM, LIPA #### [facility] [address] [place] [address] Rahul An Chloride [Moles/Vol] 96 mmol/L Critically low 98-107 The [facility] Comment on above: Performed By: #### L IVER, BMP, CMADM, LIPA #### [facility] [address] [place] [address] Rahul An CO2 [Moles/Vol] 31.0 mmol/L Critically high 22.0-30.0 [facility] Comment on above: Performed By: #### L IVER, BMP, CMADM, LIPA #### [facility] [address] [address] Rahul An Creatinine [Mass/Vol] 1.53 mg/dL Critically high 0.66-1.25 [facility] Comment on above: Performed By: #### L IVER, BMP, CMADM, LIPA #### [facility] [address] [place] [address] Rahul An EGFR-AF GUYANESE 56 mL/min/1.73m2 Critically low >=60 The [facility] Comment on above: Performed By: #### L IVER, BMP, CMADM, LIPA #### [facility] [address] [place] [address] Rahul An EGFR-NON AF GUYANESE 46 mL/min/1.73m2 Critically low >=60 [facility] Comment on above: Performed By: #### L IVER, BMP, CMADM, LIPA #### [facility] [address] [place] [address] Rahul An Glucose [Mass/Vol] 135 mg/dL Critically high 74-106 [facility] Comment on above: Performed By: #### L IVER, BMP, CMADM, LIPA #### [facility] [address] [place] [address] Rauhl An Potassium [Moles/Vol] 3.0 mmol/L Critically low 3.4-5.0 [facility] Comment on above: Performed By: #### L IVER, BMP, CMADM, LIPA #### [facility] [address] [place] [address] Rahul An Sodium [Moles/Vol] 137 mmol/L Normal 137-145 [facility] Comment on above: Performed By: #### L IVER, BMP, CMADM, LIPA #### [facility] [address] [place] [address] Rahul An Urea nitrogen [Mass/Vol] 14.0 mg/dL Normal 9.0-20.0 [facility] Comment on above: Performed By: #### L IVER, BMP, CMADM, LIPA #### [facility] [address] [place] [address] Rahul An Urea nitrogen/Creatinine [Mass ratio] 9.2 mg/mg Normal The [facility] Comment on above: Performed By: #### L FAUSTO, MAURISIO, CMADM, LIPA #### [facility] [address] [place], [place] [phone] Rahul An PROTIMEon 12-14-2018 INR Coag (PPP) [Relative time] 1.14 {INR} Normal The [facility] Comment on above: Performed By: #### P T, PTT #### [facility] [address] [place] [address] Rahul An PT Coag (PPP) [Time] PLEASE NOTE: NORMAL RANGE CHANGE 01-23-2014 DUE TO REAGENT LOT CHANGE Normal The [facility] Comment on above: Performed By: #### P T, PTT #### [facility] [address] [place] [address] Rahul An PT Coag (PPP) [Time] 11.8 s Critically high 9.0-11.6 The [facility] Comment on above: Performed By: #### P T, PTT #### [facility] [address] [place] [address] Rahul An PT Coag (PPP) [Time] SEE BELOW Normal The [facility] Comment on above: Result Comment: FRANK RED INR: 2.0 - 3.0 CONDITIONS NOT LISTED BELOW 2.5 - 3.5 FOR PROSTHETIC HEART VALVE REPLACEMENT 2.5 - 3.5 RECURRENT THROMBOSIS Performed By: #### P T, PTT #### [facility] [address] [place] [address] Rahul An PTTon 12-14-2018 aPTT Coag (Bld) [Time] 35.0 s Normal 22.3-36.2 The [facility] Comment on above: Performed By: #### P T, PTT #### [facility] [address] [place] [address] Rahul An aPTT Coag (Bld) [Time] PLEASE NOTE: NORMAL RANGE CHANGE 04-01-2015 DUE TO REAGENT LOT CHANGE Normal The [facility] Comment on above: Performed By: #### P T, PTT #### [facility] [address] [place], [place] [phone] Rahul An URINE MICROSCOPIC ONLYon Bacteria LM.HPF (Urine sed) [#/Area] MODERATE Normal NONE SEEN The [facility] Comment on above: Performed By: #### JAMES CLOUDRO #### [facility] [address] [place], [place] [phone] Rahul An CAST NONE SEEN Normal NONE SEEN The [facility] Comment on above: Performed By: #### JAMES CLOUDRO #### [facility] [address] [place] [address] Rahul An Crystals LM Nom (Urine sed) NONE SEEN Normal NONE SEEN The [facility] Comment on above: Performed By: #### JANNY CLOUD #### [facility] [address] [place] [address] Rahul An CULTURE INDICATED Normal The [facility] Comment on above: Performed By: #### JAMES CLOUDRO #### [facility] [address] [place] [address] Rahul An Epithelial cells LM.HPF (Urine sed) [#/Area] RARE Normal The [facility] Comment on above: Performed By: #### JANNY CLOUD #### [facility] [address] [place] [address] Rahul An MUCOUS NONE SEEN Normal NONE SEEN The [facility] Comment on above: Performed By: #### JAMES CLOUDRO #### [facility] [address] [place], [place] [phone] Rahul An RBC (U) [#/Vol] 20-50 Normal 0-2 [facility] Comment on above: Performed By: #### JAMES CLOUDRO #### [facility] [address] [place], [place] [phone] Rahul An WBC (Bld) [#/Vol] >100 Normal NONE SEEN The [facility] Comment on above: Performed By: #### JAMES CLOUDRO #### [facility] [address] [place], [place] [id number] Rahul An Encounters Encounter Date Encounter Type Care Provider Facility Start: 12-05-2023 End: 12-05-2023 ambulatory SHAIKH LARRY Not Available Start: 06-28-2023 End: 06-28-2023 ambulatory SHAIKH LARRY Not Available Start: 06-22-2023 Clinisync Result Encounter Shaikh Larry MCCALL Work Phone: [facility] Unsolicited Start: 06-22-2023 Clinisync Result Encounter Shaikh Larry MCCALL Work Phone: [facility] Unsolicited Start: 05-24-2023 End: 05-24-2023 ambulatory SHAIKH LARRY Not Available Start: 12-14-2018 End: 12-14-2018 Patient encounter procedure DOCTOR MIS Facility: Procedures Date Procedure Procedure Detail Performing Clinician Start: 06-22-2023 ALL CBC WITH AUTO DIFF Shaikh Larry MCCALL Work Phone: Plan of Treatment Date Care Activity Detail Author Start: 06-28-2023 End: 06-28-2023 Patient encounter procedure 06/28/2023 1:30 PM EST Office Visit [facility] [address] [place] [id number] Shaikh Levin MD [address] [place] [address] [facility] Start: 01-06-2023 Influenza vaccination [...] Payer Medicare MEDICARE MEDICAR E PART B [id number] 2019-[place] [address] [place] [address] Medicare [id number] 2019 Unknown BCBS BCBS xxxxxx [id number] 2019-Present [phone] [address] [place] [address] [id number] 2019 Medicare [id number] 2019 Unknown [id number] 1959 Unknown [id number] 1955 Unknown [id number] 1955 Unknown [id number] 1955 Unknown [id number] 1955 Unknown [id number] Social History Date Type Detail Facility Start: 05-24-2023 Tobacco smoking stat [facility] Never smoked tobacco [facility] Start: 05-24-2023 [...] content) DATE CREATED AUTHOR 12/19/2018 [facility] DATE CREATED AUTHOR AUTHOR'S ORGANIZ ATION 12/07/2023 [facility] Care Teams (unrecognized sec tion and content) [employer] Specialist Relationship Specialty Start Date End Date Shaikh [...] BE BASED ON THE PRIMARY CLINICAL RECORDS. [employer] [facility]. provides no warranty or guarantee of the accuracy or completeness of information in this document.
--- NOTE | 2024-06-05 17:03 | ECG_ITS ---
[facility] Test Date: 2024-06-05 Pat Name: OXANA JOYA Department: Room: - Gender: Male Manager Packaging: : 1955 Requested By: Order Number: [id number] Reading MD: ESTELA MOORE Measurements Intervals [place] Rate: 122 P: -26572 [place]: -49072 QRS: -26 QRSD: 98 T: 229 QT: 336 QTc: 409 Interpretive Statements 20201 Atrial fibrillation with rapid ventricular response [address] depression, probably digitalis effect 48673 Twave abnormality, possible inferolateral ischemia or digitalis effect 7202 Moderate left axis deviation 9150 abnormal ECG Electronically Signed On 06-10-2024 20:37:08 EST by ESTELA MOORE
--- NOTE | 2024-06-05 17:03 | XR_ITS ---
[address] [address] Patient Name: OXANA JOYA MRN: [id number] date: 1955 Sex: M Assigned Patient Location: ER Current Patient Location: ER Accession/Order Number: [id number] Exam Date: 06/05/2024 17:10 Report Date: 06/05/2024 18:13 At the request of: OBED REY Procedure: XR chest 1V EXAMINATION: XR chest 1V, , 06/05/2024 2:10 PM PST INDICATION: sob HISTORY: Ordering Provider Reason for Exam: sob Technologist Note: Additional: COMPARISON: XR chest 1V Study Date: 05/16/2023 TECHNIQUE: Chest x-ray: One view. FINDINGS: No pneumothorax, pleural effusion or focal airspace consolidation. Stable enlarged cardiomediastinal silhouette. Bony thorax is unremarkable. XR/XR chest 1V IMPRESSION: Stable enlarged cardiomediastinal silhouette. Electronically authenticated by: JULIANNA CARNEY Date: 06/05/2024 18:13
--- NOTE | 2024-06-05 17:08 | ED_ITS ---
HPI HPI - General Adult General Chief complaint: Shortness of Breath/Dyspnea Stated complaint: Shortness of Breath Time Seen by Provider: 06/05/24 16:40 Mode of arrival: walk-in History of Present Illness HPI narrative: Patient presents to ED for confusion and not feeling well. Patient's dates that he is feeling cold and weak and not well. Daughter who is with him said that he has been very confused and more confused than normal. She said ever since his for 5 years ago he kind of fell apart. He has not been taking care of himself and he does not really take his medications as he should. He was living with the daughter about a month ago and she made sure he took his medication for about a week but then he went back to his own house and she is not sure if he takes any of his medication. He has a history of A-fib and he is on Eliquis but she is not sure if he is taking it. He does also have a history of hypertension and he supposed to be on labetalol. She states his potassium has been low in the past asked and she is not not sure if that is what is going on. She is also concerned about possible drug use. She said he was hallucinating and seeing people in the living room and in the yard he was talking about his as if she made him come into the emergency room today but she has been for 4 to 5 years. The patient just complains of his feet feeling cold some mild abdominal pain but no chest pain. His heart rate is in the 150s and he is hypertensive on arrival. He is not hypoxic. Patient also states his stool is changing colors but he was unable to elaborate much on that. Related Data Home Medications ?Medication ?Instructions ?Recorded ?Confirmed hydralazine 100 mg tablet 100 mg PO TID 03/26/23 06/05/24 labetalol 200 mg tablet 200 mg PO Q12H 03/26/23 06/05/24 Allergies Allergy/AdvReac Type Severity Reaction Status Date / Time No Known Drug Allergies Allergy Verified 03/26/23 04:32 Opioid HPI Opioid Management Most Recent Opioid Data: Last Pain Assessment 06/07/24 03:16 Last ORT Total Score 7 06/06/24 02:08 06/06/24 Last ORT Risk Category Moderate Risk 06/06/24 02:08 06/06/24 Ur Phencyclidine Scrn Negative (NEGATIVE) 06/05/24 17:40 05/09 01/30 Review of Systems ROS Status of ROS unobtainable due to mental status PFSH [facility] Medical History (Updated 06/05/24 @ 20:29 by Ashish Jules MD) Atrial fibrillation with rapid ventricular response ?I48.91 - Unspecified atrial fibrillation (ICD-10) Edema, peripheral ?R60.0 - Localized edema (ICD-10) CHF (congestive heart failure) ?I50.9 - Heart failure, unspecified (ICD-10) Atrial fibrillation ?I48.91 - Unspecified atrial fibrillation (ICD-10) Hypertension ?I10 - Essential (primary) hypertension (ICD-10) Family History (Updated 05/16/23 @ 17:14 by Yoana Rapp) Father Family history of stroke Social History Smoking status: Never smoker Highest level of school completed/degree received: 9th grade Do you think of yourself as: straight/heterosexual Gender Identity: male Exam Narrative Exam Narrative: Time Seen: [] Vital Signs: [Per nurse's notes.] General: [Alert] Skin: [Warm, dry, no rash.] Pale Head: [Normocephalic, atraumatic.] Neck: [Supple, trachea midline.] Eye: [Pupils are equal, round and reactive to light, extraocular movements are intact, normal conjunctiva.] Ears, nose, mouth and throat: oral mucosa dry Cardiovascular: [Irregularly irregular tachycardia Respiratory: [Diminished breath sounds bilateral bases, respirations are non- labored, breath sounds are equal.] Gastrointestinal: [Soft, nontender, non distended, normal bowel sounds.] MSK: 4 out of 5 muscle strength x 4 extremities no calf pain patient has 3+ pitting edema bilateral lower extremities. We were able to Doppler pulses on both lower extremities Psychiatric: [Cooperative, appropriate mood & affect.] Neurological: [Alert and oriented to person, but not really situation time or place., no acute focal neurological deficit observed on physical exam.] Constitutional Vital Signs, click to edit/add: Last Vital Signs Temp 98.1 F 06/06/24 19:00 Pulse 107 H 06/07/24 02:35 Resp 19 06/07/24 00:31 BP 139/81 01/31/25 02:33 Pulse Ox 99 06/07/24 02:33 O2 Del Method Room Air 06/07/24 02:33 Course Vital Signs Vital signs: Vital Signs Temperature 97.9 F 06/05/24 16:43 Pulse Rate 150 H 06/05/24 16:43 Respiratory Rate 18 06/05/24 16:43 Blood Pressure 153/120 H 06/05/24 16:43 Pulse Oximetry 96 06/05/24 16:43 Oxygen Delivery Method Room Air 06/05/24 16:43 Temperature 98.1 F 06/06/24 19:00 Pulse Rate 107 H 06/07/24 02:35 Respiratory Rate 19 06/07/24 00:31 Blood Pressure 139/81 06/07/24 02:33 Pulse Oximetry 99 06/07/24 02:33 Oxygen Delivery Method Room Air 06/07/24 02:33 Medical Decision Making MDM Narrative Medical decision making narrative: Patient will be signed out to Dr. Caryl Miller pending final results and final disposition planning Lab Data Labs: Lab Results 06/05/24 06/05/24 06/05/24 Range/Units 17:00 17:20 17:40 WBC 6.6 (4.0-11.0) 10^3/uL RBC 5.14 (4.70-6.10) 10^6/uL Hgb 11.7 L (14.0-18.0) g/dL Hct 39.3 L (42.0-54.0) % MCV 76.5 L (80.0-94.0) fL MCH 22.8 L (25.9-34.0) pg MCHC 29.8 L (29.9-35.2) g/dL RDW 23.5 H (11.0-15.0) % Plt Count 298 (150-450) 10^3/uL MPV 10.3 (9.5-13.5) fL Seg Neuts % (Manual) 84.0 H (43.0-75.0) Lymphocytes % (Manual) 12.0 L (20.5-60.0) % Monocytes % (Manual) 2.0 (1.7-12.0) % Eosinophils % (Manual) 0.0 L (0.9-7.0) % Basophils % (Manual) 2.0 (0.2-2.0) % Neutrophils # (Manual) 5.54 (1.4-6.5) 10^3/uL Lymphocytes # (Manual) 0.79 L (1.20-3.80) 10^3/uL Monocytes # (Manual) 0.13 L (0.30-0.80) 10^3/uL Eosinophils # (Manual) 0.00 (0.00-0.70) 10^3/uL Basophils # (Manual) 0.13 H (0.00-0.10) 10^3/uL Anisocytosis 2+ Ovalocytes 3+ PT 16.0 H (9.0-11.6) sec INR 1.58 Sodium 138 (136-145) mmol/L Potassium 3.8 (3.5-5.1) mmol/L Chloride 104 (98-107) mmol/L Carbon Dioxide 21.5 (21.0-32.0) mmol/L Anion Gap 16.3 BUN 48.0 H (7.0-18.0) mg/dL Creatinine 2.11 H (0.70-1.30) mg/dL Est GFR ( Amer) 38 L (>=60 mL/min/1.73m^2) Est GFR (Non-Af Amer) 31 L (>=60 mL/min/1.73m^2) BUN/Creatinine Ratio 22.7 Glucose 97 (74-106) mg/dL Lactate 3.0 H* (0.4-2.0) mmol/L Calcium 9.2 (8.5-10.1) mg/dL Total Bilirubin 2.8 H (0.2-1.0) mg/dL AST 44 H (15-37) U/L ALT 36 (16-63) U/L Alkaline Phosphatase 87 (46-116) U/L Troponin I High Sens 65.0 (4.0-76.1) pg/mL Total Protein 7.2 (6.4-8.2) g/dL Albumin 3.2 L (3.4-5.0) g/dL Globulin 4.0 g/dL Albumin/Globulin Ratio 0.8 Urine Color Yellow (YELLOW) Urine Clarity Clear (CLEAR) Urine pH 5.5 (5.0-9.0) Ur Specific [place] 1.025 (1.005-1.025) Urine Protein Trace (NEG/TRACE) mg/dL Urine Glucose (UA) Negative (NEGATIVE) mg/dL Urine Ketones Trace A (NEGATIVE) mg/dL Urine Occult Blood Trace-i (NEGATIVE) Urine Nitrite Negative (NEGATIVE) Urine Bilirubin Negative (NEGATIVE) Urine Urobilinogen 1.0 (0.2-1.0) EU/dL Ur Leukocyte Esterase Negative (NEGATIVE) Urine RBC 0-2 (0-2) #/HPF Urine WBC 0-2 A (NONE SEEN) #/HPF Ur Squamous Epith Cells Few A (NONE/RARE) #/LPF Ur Transition Epith Cell Rare A (NONE SEEN) #/LPF Urine Crystals Seen A (None Seen) #/HPF Amorphous Sediment Few Urine Bacteria Trace A (NONE SEEN) #/HPF Urine Casts Seen A (NONE SEEN) #/LPF Hyaline Casts Rare Urine Mucus Small A (NONE SEEN) Ur Culture Indicated? No Urine Opiates Screen Negative (NEGATIVE) Ur Buprenorphine Scrn Negative (NEGATIVE) Ur Oxycodone Screen Negative (NEGATIVE) Urine Methadone Screen Negative (NEGATIVE) Ur Barbiturates Screen Negative (NEGATIVE) U Tricyclic Antidepress Negative (NEGATIVE) Ur Phencyclidine Scrn Negative (NEGATIVE) Ur Amphetamines Screen Negative (NEGATIVE) U Methamphetamines Scrn Negative (NEGATIVE) U Benzodiazepines Scrn Negative (NEGATIVE) Urine Cocaine Screen Negative (NEGATIVE) U Cannabinoids Screen Positive A (NEGATIVE) Ethanol Quant <3 mg/dL Influenza Type A Ag Negative Influenza Type B Ag Negative SARS-CoV-2 Ag (CV2AG) Negative (NEGATIVE) 06/05/24 Range/Units 22:10 WBC (4.0-11.0) 10^3/uL RBC (4.70-6.10) 10^6/uL Hgb (14.0-18.0) g/dL Hct (42.0-54.0) % MCV (80.0-94.0) fL MCH (25.9-34.0) pg MCHC (29.9-35.2) g/dL RDW (11.0-15.0) % Plt Count (150-450) 10^3/uL MPV (9.5-13.5) fL Seg Neuts % (Manual) (43.0-75.0) Lymphocytes % (Manual) (20.5-60.0) % Monocytes % (Manual) (1.7-12.0) % Eosinophils % (Manual) (0.9-7.0) % Basophils % (Manual) (0.2-2.0) % Neutrophils # (Manual) (1.4-6.5) 10^3/uL Lymphocytes # (Manual) (1.20-3.80) 10^3/uL Monocytes # (Manual) (0.30-0.80) 10^3/uL Eosinophils # (Manual) (0.00-0.70) 10^3/uL Basophils # (Manual) (0.00-0.10) 10^3/uL Anisocytosis Ovalocytes PT (9.0-11.6) sec INR Sodium (136-145) mmol/L Potassium (3.5-5.1) mmol/L Chloride (98-107) mmol/L Carbon Dioxide (21.0-32.0) mmol/L Anion Gap BUN (7.0-18.0) mg/dL Creatinine (0.70-1.30) mg/dL Est GFR ( Amer) (>=60 mL/min/1.73m^2) Est GFR (Non-Af Amer) (>=60 mL/min/1.73m^2) BUN/Creatinine Ratio Glucose (74-106) mg/dL Lactate 1.5 (0.4-2.0) mmol/L Calcium (8.5-10.1) mg/dL Total Bilirubin (0.2-1.0) mg/dL AST (15-37) U/L ALT (16-63) U/L Alkaline Phosphatase (46-116) U/L Troponin I High Sens (4.0-76.1) pg/mL Total Protein (6.4-8.2) g/dL Albumin (3.4-5.0) g/dL Globulin g/dL Albumin/Globulin Ratio Urine Color (YELLOW) Urine Clarity (CLEAR) Urine pH (5.0-9.0) Ur Specific [place] (1.005-1.025) Urine Protein (NEG/TRACE) mg/dL Urine Glucose (UA) (NEGATIVE) mg/dL Urine Ketones (NEGATIVE) mg/dL Urine Occult Blood (NEGATIVE) Urine Nitrite (NEGATIVE) Urine Bilirubin (NEGATIVE) Urine Urobilinogen (0.2-1.0) EU/dL Ur Leukocyte Esterase (NEGATIVE) Urine RBC (0-2) #/HPF Urine WBC (NONE SEEN) #/HPF Ur Squamous Epith Cells (NONE/RARE) #/LPF Ur Transition Epith Cell (NONE SEEN) #/LPF Urine Crystals (None Seen) #/HPF Amorphous Sediment Urine Bacteria (NONE SEEN) #/HPF Urine Casts (NONE SEEN) #/LPF Hyaline Casts Urine Mucus (NONE SEEN) Ur Culture Indicated? Urine Opiates Screen (NEGATIVE) Ur Buprenorphine Scrn (NEGATIVE) Ur Oxycodone Screen (NEGATIVE) Urine Methadone Screen (NEGATIVE) Ur Barbiturates Screen (NEGATIVE) U Tricyclic Antidepress (NEGATIVE) Ur Phencyclidine Scrn (NEGATIVE) Ur Amphetamines Screen (NEGATIVE) U Methamphetamines Scrn (NEGATIVE) U Benzodiazepines Scrn (NEGATIVE) Urine Cocaine Screen (NEGATIVE) U Cannabinoids Screen (NEGATIVE) Ethanol Quant mg/dL Influenza Type A Ag Influenza Type B Ag SARS-CoV-2 Ag (CV2AG) (NEGATIVE) ECG Data Attestation: I personally reviewed and interpreted this ECG as follows: Interpretation: EKG INTERPRETATION Time: [] 171 Rate: [] 122 Rhythm: _ [] A-fib RVR ST segments: _ [] Mild ST depression 2 3 aVF V5 V6 with T wave inversion T waves: _ [] Ectopy: _ [] P wave/CO interval: _ [] QRS interval: _ [] QT interval: _ [] Comparison: _ [] Comparison EKG date: [] Performed by: [self] Discharge Plan Discharge Chief Complaint: Shortness of Breath/Dyspnea Clinical Impression: Atrial fibrillation with RVR, Confusion Patient Disposition: Admitted As Inpatient Time of Disposition Decision: 20:29 Condition: Fair Discharge Date/Time: 06/06/24 02:00
[2024-06-05] MEDS: 0.9 % SODIUM CHLORIDE 1,000 ML 1000 ML IV (17:19)
[2024-06-05] MEDS: DILTIAZEM HCL 25 MG/5 ML VIAL 20 MG IV (17:20)
[2024-06-05] MEDS: dilTIAZem HCL 125 MG in 0.9 % SODIUM CHLORIDE 100 ML 10 MG IV (17:24)
[2024-06-05 17:45] LABS: Hematocrit 39.3 % (42.0-54.0); Hemoglobin 11.7 g/dL (14.0-18.0); Mean Corpuscular HGB Conc 29.8 g/dL (29.9-35.2); Mean Corpuscular Hemoglobin 22.8 pg (25.9-34.0); Mean Corpuscular Volume 76.5 fL (80.0-94.0); Mean Platelet Volume 10.3 fL (9.5-13.5); Platelet Count 298 10^3/uL (150-450); Red Blood Count 5.14 10^6/uL (4.70-6.10); Red Cell Distribution Width 23.5 % (11.0-15.0); White Blood Count 6.6 10^3/uL (4.0-11.0)
--- NOTE | 2024-06-05 18:02 | CT_ITS ---
[address] [address] Patient Name: OXANA JOYA MRN: [id number] date: 1955 Sex: M Assigned Patient Location: ER Current Patient Location: ED.MAIN Accession/Order Number: [id number] Exam Date: 06/05/2024 17:55 Report Date: 06/05/2024 19:15 At the request of: OBED REY Procedure: CT head/brain wo con EXAMINATION: CT head/brain wo con HISTORY: confusion COMPARISON: None. TECHNIQUE: CT head without intravenous contrast. Dose reduction techniques were achieved by using: automated exposure control and/or adjustment of mA and /or kV according to patient size and/or use of iterative reconstruction technique. FINDINGS: Old infarct right occipital lobe and posterior right frontal lobe. Negative for acute hemorrhage. No hydrocephalus, midline shift, mass effect, pathologic extra-axial fluid collections. CT/CT head/brain wo con IMPRESSION: Negative for acute intracranial hemorrhage or acute intracranial process. 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 Electronically authenticated by: SOCORRO MANLEY Date: 06/05/2024 19:15
[2024-06-05 18:03] LABS: Influenza Virus A Antigen Negative; Influenza Virus B Antigen Negative; Internal Control Within Normal Limits; SARS-CoV-2 Ag NEGATIVE (NEGATIVE)
[2024-06-05 18:03] LABS: INR 1.58
[2024-06-05 18:16] LABS: Alanine Aminotransferase 36 U/L (16-63); Albumin Globulin Ratio 0.8; Albumin Level 3.2 g/dL (3.4-5.0); Alkaline Phosphatase 87 U/L (46-116); Anion Gap 16.3; Aspartate Amino Transferase 44 U/L (15-37); BUN Creatinine Ratio 22.7; Bilirubin Total 2.8 mg/dL (0.2-1.0); Calcium 9.2 mg/dL (8.5-10.1); Carbon Dioxide 21.5 mmol/L (21.0-32.0); Chloride 104 mmol/L (98-107); Estimated GFR (African America 38 (>=60 mL/min/1.73m^2); Estimated GFR (Non-African Ame 31 (>=60 mL/min/1.73m^2); Glucose 97 mg/dL (74-106); Potassium 3.8 mmol/L (3.5-5.1); Sodium 138 mmol/L (136-145); Total Protein 7.2 g/dL (6.4-8.2)
[2024-06-05 18:46] LABS: Lymphocytes Absolute Manual 0.79 10^3/uL (1.20-3.80); Monocytes Absolute Manual 0.13 10^3/uL (0.30-0.80); Segmented Neut Absolute Manual 5.54 10^3/uL (1.4-6.5)
[2024-06-05 18:47] LABS: Basophils Abs Manual 0.13 10^3/uL (0.00-0.10); Ovalocytes 3+
[2024-06-05 18:48] LABS: Anisocytosis 2+
[2024-06-05 18:54] LABS: Bilirubin Urine NEGATIVE (NEGATIVE); Blood Urine TRACE-I (NEGATIVE); Clarity Urine CLEAR (CLEAR); Color Urine YELLOW (YELLOW); Glucose Urine UA NEGATIVE (NEGATIVE); Ketones Urine TRACE mg/dL (NEGATIVE); Leukocyte Esterase Urine NEGATIVE (NEGATIVE); Nitrite Urine NEGATIVE (NEGATIVE); Protein Urine TRACE mg/dL (NEG/TRACE); Specific Gravity Urine 1.025 (1.005-1.025); pH Urine 5.5 (5.0-9.0)
--- NOTE | 2024-06-05 19:00 | ECG_ITS ---
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
[2024-06-05 19:01] LABS: Urine Microscopic Indicated YES
[2024-06-05 19:04] LABS: Mucus Urine SMALL (NONE SEEN); RBC Urine 0-2 #/HPF (0-2); Squamous Epithelial Cell Urine FEW #/LPF (NONE/RARE); Transitional Epi Cells Urine RARE #/LPF (NONE SEEN); Urine Culture Indicated NO; WBC Urine 0-2 #/HPF (NONE SEEN)
[2024-06-05 19:05] LABS: Amorphous Sediment Urine FEW; Bacteria Urine TRACE #/HPF (NONE SEEN); Cast Seen? SEEN #/LPF (NONE SEEN); Crystals Seen? Seen #/HPF (None Seen); Hyaline Casts Urine RARE
[2024-06-05 19:09] LABS: Cannabinoid Screen Urine POSITIVE (NEGATIVE); Cocaine Screen Urine NEGATIVE (NEGATIVE); Methamphetamines Screen Urine NEGATIVE (NEGATIVE); Opiate Screen Urine NEGATIVE (NEGATIVE); Phencyclidine Screen Urine NEGATIVE (NEGATIVE)
[2024-06-05 19:10] LABS: Amphetamine Screen Urine NEGATIVE (NEGATIVE); Barbiturates Screen Urine NEGATIVE (NEGATIVE); Benzodiazepines Screen Urine NEGATIVE (NEGATIVE); Buprenorphine Screen Urine NEGATIVE (NEGATIVE); Methadone Screen Urine NEGATIVE (NEGATIVE); Oxycodone Screen Urine NEGATIVE (NEGATIVE); Tricyclic Antidepressant Urine NEGATIVE (NEGATIVE)
[2024-06-05 19:10] LABS: Ethanol <3 mg/dL
--- NOTE | 2024-06-05 20:51 | ED_ITS ---
HPI HPI - General Adult General Chief complaint: Shortness of Breath/Dyspnea Stated complaint: Shortness of Breath Time Seen by Provider: 06/05/24 16:40 Mode of arrival: walk-in History of Present Illness HPI narrative: 68-year-old male presented to the emergency department and was initially seen by Dr. Shaw and signed out to me after discussing the case with her thoroughly. Please see her full history and physical exam Related Data Home Medications ?Medication ?Instructions ?Recorded ?Confirmed hydralazine 100 mg tablet 100 mg PO TID 03/26/23 06/05/24 labetalol 200 mg tablet 200 mg PO Q12H 03/26/23 06/05/24 Allergies Allergy/AdvReac Type Severity Reaction Status Date / Time No Known Drug Allergies Allergy Verified 03/26/23 04:32 Opioid HPI Opioid Management Most Recent Opioid Data: Ur Phencyclidine Scrn Negative (NEGATIVE) 06/05/24 17:40 05/09 01/30 [facility] Medical History (Updated 06/05/24 @ 20:29 by Ashish Jules MD) Atrial fibrillation with rapid ventricular response ?I48.91 - Unspecified atrial fibrillation (ICD-10) Edema, peripheral ?R60.0 - Localized edema (ICD-10) CHF (congestive heart failure) ?I50.9 - Heart failure, unspecified (ICD-10) Atrial fibrillation ?I48.91 - Unspecified atrial fibrillation (ICD-10) Hypertension ?I10 - Essential (primary) hypertension (ICD-10) Family History (Updated 05/16/23 @ 17:14 by Yoana Rapp) Father Family history of stroke Social History Smoking status: Never smoker Highest level of school completed/degree received: 9th grade Do you think of yourself as: straight/heterosexual Gender Identity: male Exam Constitutional Vital Signs, click to edit/add: Last Vital Signs Temp 97.9 F 06/05/24 16:43 Pulse 89 06/05/24 19:00 Resp 19 06/05/24 19:00 BP 155/110 H 06/05/24 18:59 Pulse Ox 95 06/05/24 19:00 O2 Del Method Room Air 06/05/24 16:43 Course Vital Signs Vital signs: Vital Signs Temperature 97.9 F 06/05/24 16:43 Pulse Rate 150 H 06/05/24 16:43 Respiratory Rate 18 06/05/24 16:43 Blood Pressure 153/120 H 06/05/24 16:43 Pulse Oximetry 96 06/05/24 16:43 Oxygen Delivery Method Room Air 06/05/24 16:43 Temperature 97.9 F 06/05/24 16:43 Pulse Rate 89 06/05/24 19:00 Respiratory Rate 19 06/05/24 19:00 Blood Pressure 155/110 H 06/05/24 18:59 Pulse Oximetry 95 06/05/24 19:00 Oxygen Delivery Method Room Air 06/05/24 16:43 Medical Decision Making MDM Narrative Medical decision making narrative: The patient presented with atrial fibrillation and RVR. He was given a Cardizem bolus and placed on drip. His workup is otherwise negative. Drug screen is positive for cannabinoids and alcohol level is negative. No evidence of pneumonia or UTI and his COVID and influenza test are negative. His daughter is concerned about this confusion and the source of it not certain. Blood cultures are pending. Treatment diagnosis and disposition were discussed with the patient and his daughter. Differential Diagnosis Differential Diagnosis: Atrial fibrillation with RVR, pneumonia, UTI, influenza, COVID Lab Data Lab results reviewed: Yes I reviewed the patient's lab results Labs: Lab Results 06/05/24 06/05/24 06/05/24 Range/Units 17:00 17:20 17:40 WBC 6.6 (4.0-11.0) 10^3/uL RBC 5.14 (4.70-6.10) 10^6/uL Hgb 11.7 L (14.0-18.0) g/dL Hct 39.3 L (42.0-54.0) % MCV 76.5 L (80.0-94.0) fL MCH 22.8 L (25.9-34.0) pg MCHC 29.8 L (29.9-35.2) g/dL RDW 23.5 H (11.0-15.0) % Plt Count 298 (150-450) 10^3/uL MPV 10.3 (9.5-13.5) fL Seg Neuts % (Manual) 84.0 H (43.0-75.0) Lymphocytes % (Manual) 12.0 L (20.5-60.0) % Monocytes % (Manual) 2.0 (1.7-12.0) % Eosinophils % (Manual) 0.0 L (0.9-7.0) % Basophils % (Manual) 2.0 (0.2-2.0) % Neutrophils # (Manual) 5.54 (1.4-6.5) 10^3/uL Lymphocytes # (Manual) 0.79 L (1.20-3.80) 10^3/uL Monocytes # (Manual) 0.13 L (0.30-0.80) 10^3/uL Eosinophils # (Manual) 0.00 (0.00-0.70) 10^3/uL Basophils # (Manual) 0.13 H (0.00-0.10) 10^3/uL Anisocytosis 2+ Ovalocytes 3+ PT 16.0 H (9.0-11.6) sec INR 1.58 Sodium 138 (136-145) mmol/L Potassium 3.8 (3.5-5.1) mmol/L Chloride 104 (98-107) mmol/L Carbon Dioxide 21.5 (21.0-32.0) mmol/L Anion Gap 16.3 BUN 48.0 H (7.0-18.0) mg/dL Creatinine 2.11 H (0.70-1.30) mg/dL Est GFR ( Amer) 38 L (>=60 mL/min/1.73m^2) Est GFR (Non-Af Amer) 31 L (>=60 mL/min/1.73m^2) BUN/Creatinine Ratio 22.7 Glucose 97 (74-106) mg/dL Lactate 3.0 H* (0.4-2.0) mmol/L Calcium 9.2 (8.5-10.1) mg/dL Total Bilirubin 2.8 H (0.2-1.0) mg/dL AST 44 H (15-37) U/L ALT 36 (16-63) U/L Alkaline Phosphatase 87 (46-116) U/L Troponin I High Sens 65.0 (4.0-76.1) pg/mL Total Protein 7.2 (6.4-8.2) g/dL Albumin 3.2 L (3.4-5.0) g/dL Globulin 4.0 g/dL Albumin/Globulin Ratio 0.8 Urine Color Yellow (YELLOW) Urine Clarity Clear (CLEAR) Urine pH 5.5 (5.0-9.0) Ur Specific [place] 1.025 (1.005-1.025) Urine Protein Trace (NEG/TRACE) mg/dL Urine Glucose (UA) Negative (NEGATIVE) mg/dL Urine Ketones Trace A (NEGATIVE) mg/dL Urine Occult Blood Trace-i (NEGATIVE) Urine Nitrite Negative (NEGATIVE) Urine Bilirubin Negative (NEGATIVE) Urine Urobilinogen 1.0 (0.2-1.0) EU/dL Ur Leukocyte Esterase Negative (NEGATIVE) Urine RBC 0-2 (0-2) #/HPF Urine WBC 0-2 A (NONE SEEN) #/HPF Ur Squamous Epith Cells Few A (NONE/RARE) #/LPF Ur Transition Epith Cell Rare A (NONE SEEN) #/LPF Urine Crystals Seen A (None Seen) #/HPF Amorphous Sediment Few Urine Bacteria Trace A (NONE SEEN) #/HPF Urine Casts Seen A (NONE SEEN) #/LPF Hyaline Casts Rare Urine Mucus Small A (NONE SEEN) Ur Culture Indicated? No Urine Opiates Screen Negative (NEGATIVE) Ur Buprenorphine Scrn Negative (NEGATIVE) Ur Oxycodone Screen Negative (NEGATIVE) Urine Methadone Screen Negative (NEGATIVE) Ur Barbiturates Screen Negative (NEGATIVE) U Tricyclic Antidepress Negative (NEGATIVE) Ur Phencyclidine Scrn Negative (NEGATIVE) Ur Amphetamines Screen Negative (NEGATIVE) U Methamphetamines Scrn Negative (NEGATIVE) U Benzodiazepines Scrn Negative (NEGATIVE) Urine Cocaine Screen Negative (NEGATIVE) U Cannabinoids Screen Positive A (NEGATIVE) Ethanol Quant <3 mg/dL Influenza Type A Ag Negative Influenza Type B Ag Negative SARS-CoV-2 Ag (CV2AG) Negative (NEGATIVE) Imaging Data Chest x-ray: Radiologist's impression: ITS Impressions Chest X-Ray 06/05/24 17:03 IMPRESSION: Stable enlarged cardiomediastinal silhouette. Electronically authenticated by: JULIANNA CARNEY Date: 06/05/2024 18:[address] 06/05/24 18:02 IMPRESSION: Negative for acute intracranial hemorrhage or acute intracranial process. 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 Electronically authenticated by: SOCORRO MANLEY Date: 06/05/2024 19:15 Critical Care Time Critical Care Time Critical Care Time: Yes Total Critical Care Time: 35 Attestation: Due to the high probability of sudden and clinically significant deterioration in the patient's condition he/she required the highest level of my preparedness to intervene urgently I provided critical care time including documentation time, medication orders and management, reevaluation, vital sign assessment, ordering and reviewing of lab tests, ordering and reviewing of x-ray studies, and admission orders. Aggregate critical care time is 35 minutes including only time during which I was engaged in work directly related to his/her care and did not include time spent treating other patients simultaneously. Discharge Plan Discharge Chief Complaint: Shortness of Breath/Dyspnea Clinical Impression: Atrial fibrillation with RVR, Confusion Patient Disposition: Admitted As Inpatient Time of Disposition Decision: 20:29 Condition: Fair
[2024-06-05] MEDS: HYDRALAZINE HCL 25 MG TABLET 100 MG PO (21:20)
[2024-06-05] MEDS: FAMOTIDINE/PF 20 MG/2 ML VIAL IV (21:42)
[2024-06-05 22:36] LABS: Lactate/Lactic Acid 1.5 mmol/L (0.4-2.0)
[2024-06-05] MEDS: LORAZEPAM 2 MG/ML VIAL 1 MG IV (23:01)
[2024-06-06] VITALS (49 sets, daily range): BP systolic 121–193; BP diastolic 78–133; PULSE 61–99; TEMP 36.1–36.7; O2SAT 85–100; BMI 24.5
[2024-06-06] MEDS: LORAZEPAM 2 MG/ML VIAL 1 MG IV (01:30)
--- OUTSIDE RECORDS SUMMARY | 2024-06-06 02:02 | XMS_ITS | CCD ---
Author Organization [facility] Care Team Providers Care Assistant Case Manager Name Role Phone MARIBEL, DOCTOR Primary Care Unavailable PAY, PETR Admitting Unavailable PAY, PETR Attending Unavailable PAY, PETR Consulting Unavailable Shaikh Levin MD Primary Care Provider [phone] SHAIKH LEVIN Attending Unavailable SHAIKH LEVIN Attending [...] Onset: 9 Episodic Other aftercare (1 source) skilled nursing (current) use of anticoagulants; Translations: [PRISON CURRNT USE ANTICOAGULANTS] Onset: 9 Episodic Other aftercare (1 source) skilled nursing (current) use of aspirin; Translations: [PRISON CURRENT USE OF ASPIRIN] Onset: 9 Episodic Other aftercare (1 source) Other terminal operator (current) drug therapy; Translations: [OTH DIRECTOR COST CURRENT DRUG THERAPY] Onset: 9 Episodic Other diseases of veins and lymphatics (1 source) Venous insufficiency of leg; Translations: [Venous insufficiency (chronic) (peripheral)] Onset: 4 05-24-2023 Episodic Urinary tract infections (1 source) Acute cystitis with hematuria; Translations: [ACUTE CYSTITIS WITH HEMATURIA] Onset: 9 Episodic Results Test Name Value Interpretation Reference Range Facil ity ALL CBC WITH AUTO DIFFon BASOPHILS ABSOLUTE AUTO 0.1 [facility] Basophils/100 WBC (Bld) 1.4 % 0.2 - 2.0 % [facility] Eosinophils/100 WBC (Bld) 1.6 % 0.9 - 7.0 % [facility] Erythrocyte distribution width (RBC) [Ratio] 19.9 % High 11.0 - 15.0 % [facility] Hematocrit (Bld) [Volume fraction] 39.1 % Low 42.0 - 54.0 % [facility] Hem[facility] (Bld) [Mass/Vol] 11.6 g/dL Low 14.0 - 18.0 g/dL [facility] IMMATURE GRANULOCYTES ABS AUTO 0.02 [facility] Immature granulocytes/100 WBC (Bld) 0.2 % 0.0 - 0.5 % [facility] Interpretation and review of laboratory results Abnormal [facility] LYMPHOCYTES ABSOLUTE AUTO 1.5 [facility] Lymphocytes/100 WBC (Bld) 16.6 % Low 20.5 - 60.0 % [facility] MCH (RBC) [Entitic mass] 23.7 pg Low 25.9 - 34.[address] [facility] MCHC (RBC) [Mass/Vol] 29.7 g/dL Low 29.9 - 35.2 g/dL [facility] MCV (RBC) [Entitic vol] 79.8 fL Low 80.0 - 94.0 fL [facility] MONOC[facility] ABSOLUTE [facility]O 0.6 [facility] Monocytes/100 WBC (Bld) 6.6 % 1.7 - 12.0 % [facility] NEUTROPHILS ABSOLUTE AUTO 6.5 [facility] Neutrophils/100 WBC (Bld) 73.6 % 43.0 - 75.0 % [facility] Platelet mean volume (Bld) [Entitic vol] 9.2 fL Low 9.5 - 13.5 fL [facility] EO # 0.1 [facility] PLT 360 [facility] RBC 4.90 [facility] WBC 8.8 [facility] CULTURE URINEon 12-16-2018 CULTURE URINE [...] Trimethoprim/Sulfam ethoxazole <=20 S F Normal [facility] Comment on above: Performed By: #### U RCX #### [facility] [address] [place] [address] Rahul Nolan CARDIAC LEONOR ADMITon 019 CK [Catalytic activity/Vol] 116 U/L Normal 55-170 [facility] Comment on above: Performed By: #### L MAURISIO LAMBERT CMADM, LIPA #### [facility] [address] [place] [address] Rahul Nolan CK.MB [Mass/Vol] 1.36 ng/mL Normal <=2.37 [facility] Comment on above: Performed By: #### L MAURISIO LAMBERT, SILVIA, LIPA #### [facility] [address] [place] [address] Rahul An INR Coag (Bld) [Relative time] SEE BELOW Normal [facility] Comment on above: Result Comment: <0.0 34 ng/ml NEGATIVE 0.034-0.119 INDETERMINATE 0.120 AMI CUT OFF Performed By: #### L IVER, BMP, CMADM, LIPA #### [facility] [address] [place] [address] Rahul An PHAM 112.0 ng/mL Normal <=121.0 [facility] Comment on above: Performed By: #### L IVER, BMP, CMADM, LIPA #### [facility] [address] [place] [address] Rahul An TROP <0.017 Normal <=0.034 [facility] Comment on above: Performed By: #### L IVER, BMP, CMADM, LIPA #### [facility] [address] [place] [address] Rahul An CBC AUTO DIFFon 12-14-2018 Basophils (Bld) [#/Vol] 0.1 103/ul Normal 0.0-0.1 [facility] Comment on above: Performed By: #### C BC #### [facility] [address] [place] [address] Rahul An Basophils/100 WBC (Bld) 0.7 % Normal 0.2-2.0 [facility] Comment on above: Performed By: #### C BC #### [facility] [address] [place] [address] Rahul An Eosinophils (Bld) [#/Vol] 0.0 103/ul Normal 0.0-0.7 [facility] Comment on above: Performed By: #### C BC #### [facility] [address] [place] [address] Rahul An Eosinophils/100 WBC (Bld) 0.2 % Critically low 0.9-7.0 [facility] Comment on above: Performed By: #### C BC #### [facility] [address] [place] [address] Rahul An Erythrocyte distribution width (RBC) [Ratio] 14.8 % Normal 11.0-15.0 [facility] Comment on above: Performed By: #### C BC #### [facility] [address] [place] [address] Rahul Nolan Hematocrit (Bld) [Volume fraction] 52.1 % Normal 42.0-54.0 [facility] Comment on above: Performed By: #### C BC #### [facility] [address] [place] [address] Rahul Nolan Hemoglobin (Bld) [Mass/Vol] 17.3 g/dL Normal 14.0-18.0 [facility] Comment on above: Performed By: #### C BC #### [facility] [address] [place] [address] Rahulkeya Nolan IG # 0.10 10e3/ul Critically high 0.00-0.03 [facility] Comment on above: Performed By: #### C BC #### [facility] [address] [place] [address] Rahul Nolan IG % 0.6 % Critically high 0.0-0.5 [facility] Comment on above: Performed By: #### C BC #### [facility] [address] [place] [address] Rahul Nolan Lymphocytes (Bld) [#/Vol] 1.9 103/ul Normal 1.2-3.8 [facility] Comment on above: Performed By: #### C BC #### [facility] [address] [place] [address] Rahul Nolan Lymphocytes/100 WBC (Bld) 11.5 % Critically low 20.5-60.0 [facility] Comment on above: Performed By: #### C BC #### [facility] [address] [place], [place] [id number] Rahul Nolan MANUAL DIFF REQ NO Normal [facility] Comment on above: Performed By: #### C BC #### [facility] [address] [place], [place] [phone] Rahul Nolan MCH (RBC) [Entitic mass] 30.0 pg Normal 25.9-34.0 [facility] Comment on above: Performed By: #### C BC #### [facility] [address] [place], [place] [phone] Rahulkeya Nolan MCHC (RBC) [Mass/Vol] 33.2 g/dL Normal 29.9-35.2 [facility] Comment on above: Performed By: #### C BC #### [facility] [address] [place], [place] [id number] Rahulkeya Doveen MCV (RBC) [Entitic vol] 90.5 fL Normal 80.0-94.0 [facility] Comment on above: Performed By: #### C BC #### [facility] [address] [place] [address] Rahul An Monocytes (Bld) [#/Vol] 1.2 103/ul Critically high 0.3-0.8 [facility] Comment on above: Performed By: #### C BC #### [facility] [address] [place] [address] Rahul An Monocytes/100 WBC (Bld) 7.0 % Normal 1.7-12.0 [facility] Comment on above: Performed By: #### C BC #### [facility] [address] [place] [address] Rahul An Neutrophils (Bld) [#/Vol] 13.3 103/ul Critically high 1.4-6.5 [facility] Comment on above: Performed By: #### C BC #### [facility] [address] [place] [address] Rahul An Neutrophils/100 WBC (Bld) 80.0 % Critically high 43.0-75.0 [facility] Comment on above: Performed By: #### C BC #### [facility] [address] [place], [place] [phone] Rahul An Platelet mean volume (Bld) [Entitic vol] 9.9 fL Normal 9.5-13.5 [facility] Comment on above: Performed By: #### C BC #### [facility] [address] [place], [place] [phone] Rahul An Platelets (Bld) [#/Vol] 366 103/ul Normal 150-450 [facility] Comment on above: Performed By: #### C BC #### [facility] [address] [place], [place] [phone] Rahul An RBC (Bld) [#/Vol] 5.76 106/ul Normal 4.70-6.10 [facility] [place] Comment on above: Performed By: #### C BC #### [facility] [address] [place], [place] [phone] Rahul An WBC (Bld) [#/Vol] 16.6 103/ul Critically high 4.0-11.0 [facility] Comment on above: Performed By: #### C BC #### [facility] [address] [place], [place] [phone] Rahul An ER URINE PROFILEon 9 Bilirubin [Mass/Vol] MODERATE Normal NEGATIVE [facility] Comment on above: Performed By: #### JANNY CLOUD #### [facility] [address] [place], [place] [phone] Rahul An BLOOD LARGE Normal NEGATIVE [facility] Comment on above: Performed By: #### JANNY CLOUD #### [facility] [address] [place], [place] [phone] Rahul An Clarity (U) CLEAR Normal [facility] Comment on above: Performed By: #### JANNY CLOUD #### [facility] [address] [place], [place] [phone] Rahul An Color (U) DK. ORANGE Normal YELLOW [facility] Comment on above: Performed By: #### JANNY CLOUD #### [facility] [address] [place], [place] [phone] Rahul An ERUAHD A micrscopic examination will be performed if indicated. Normal [facility] Comment on above: Performed By: #### JANNY CLOUD #### [facility] [address] [place], [place] [phone] Rahul An Glucose [Mass/Vol] Negative Normal NEGATIVE [facility] [place] Comment on above: Performed By: #### Bigg KATZ UMICRO #### [facility] [address] [place], [place] [phone] Rahul An Ketones Ql (U) TRACE Normal NEGATIVE [facility] Comment on above: Performed By: #### Bigg KATZ UMICRO #### [facility] [address] [place], [place] [phone] Rahul An Nitrite Ql (U) Positive Normal NEGATIVE [facility] Comment on above: Performed By: #### Bigg KATZ UMICRO #### [facility] [address] [place], [place] [phone] Rahul An pH (Bld) 6.0 Normal 5-9 [facility] Comment on above: Performed By: #### Bigg KATZ UMICRO #### [facility] [address] [place], [place] [phone] Rahul An Protein (U) [Mass/Vol] mg/dL Normal [facility] Comment on above: Performed By: #### Bigg KATZ UMICRO #### [facility] [address] [place], [place] [phone] Rahul An SPEC GRAVITY 1.025 Normal 1.005-<=1.025 [facility] Comment on above: Performed By: #### Bigg KATZ UMICRO #### [facility] [address] [place], [place] [phone] Rahul An UR MICRO IND INDICATED Normal [facility] Comment on above: Performed By: #### Bigg KATZ UMICRO #### [facility] [address] [place], [place] [phone] Rahul An Urobilinogen Qn (U) 2.0 EU/dl Normal [facility] Comment on above: Performed By: #### JAMES CLOUDRO #### [facility] [address] [place], [place] [phone] Rahul An WBC (Bld) [#/Vol] SMALL Normal NEGATIVE [facility] Comment on above: Performed By: #### JAMES CLOUDRO #### [facility] [address] [place], [place] [phone] Rahul An LIPASEon 12-14-2018 Lipase [Catalytic activity/Vol] 160.0 U/L Normal 23.0-300.0 [facility] Comment on above: Performed By: #### L IVER, BMP, CMADM, LIPA #### [facility] [address] [place] [address] Rahul An LIVER PROFILEon 12-14-2018 Albumin [Mass/Vol] 3.8 g/dL Normal 3.5-5.0 [facility] Comment on above: Performed By: #### L IVER, BMP, CMADM, LIPA #### [facility] [address] [place] [address] Rahul An Albumin/Globulin [Mass ratio] 0.7 {ratio} Normal [facility] Comment on above: Performed By: #### L IVER, BMP, CMADM, LIPA #### [facility] [address] [place] [address] Rahul An ALP [Catalytic activity/Vol] 84 U/L Normal 38-126 [facility] Comment on above: Performed By: #### L IVER, BMP, CMADM, LIPA #### [facility] [address] [place] [address] Rahul An ALT [Catalytic activity/Vol] 51 U/L Normal 21-72 [facility] Comment on above: Performed By: #### L IVER, BMP, CMADM, LIPA #### [facility] [address] [place] [address] Rahul An AST [Catalytic activity/Vol] 22 U/L Normal 17-59 [facility] Comment on above: Performed By: #### L IVER, BMP, CMADM, LIPA #### [facility] [address] [place] [address] Rahul An BILI, CONJUGATED 0.3 mg/dL Normal 0.0-0.[address] [facility] Comment on above: Performed By: #### L IVER, BMP, CMADM, LIPA #### [facility] [address] [place] [address] Rahul An Bilirubin Ql (U) 1.2 mg/dL Normal 0.2-1.[address] [facility] Comment on above: Performed By: #### L IVER, BMP, CMADM, LIPA #### [facility] [address] [place] [address] Rahul An Globulin (S) [Mass/Vol] 5.3 g/dL Normal [facility] Comment on above: Performed By: #### L IVER, BMP, CMADM, LIPA #### [facility] [address] [place] [address] Rahul An Protein [Mass/Vol] 9.1 g/dL Critically high 6.1-8.2 [facility] Comment on above: Performed By: #### L IVER, BMP, CMADM, LIPA #### [facility] [address] [place] [address] Rahul An PROF CHEM 8 (BAS METB)on Anion gap [Moles/Vol] 13.0 mmol/L Normal [facility] Comment on above: Performed By: #### L IVER, BMP, CMADM, LIPA #### [facility] [address] [place] [address] Rahul An Calcium [Mass/Vol] 8.5 mg/dL Normal 8.4-10.2 [facility] Comment on above: Performed By: #### L IVER, BMP, CMADM, LIPA #### [facility] [address] [place] [address] Rahul An Chloride [Moles/Vol] 96 mmol/L Critically low 98-107 [facility] Comment on above: Performed By: #### L IVER, BMP, CMADM, LIPA #### [facility] [address] [place] [address] Rahul An CO2 [Moles/Vol] 31.0 mmol/L Critically high 22.0-30.0 [facility] Comment on above: Performed By: #### L IVER, BMP, CMADM, LIPA #### [facility] [address] [address] Rahul An Creatinine [Mass/Vol] 1.53 mg/dL Critically high 0.66-1.25 [facility] Comment on above: Performed By: #### L IVER, BMP, CMADM, LIPA #### [facility] [address] [place] [address] Rahul An EGFR-AF TURKMEN 56 mL/min/1.73m2 Critically low >=60 [facility] Comment on above: Performed By: #### L IVER, BMP, CMADM, LIPA #### [facility] [address] [place] [address] Rahul An EGFR-NON AF TURKMEN 46 mL/min/1.73m2 Critically low >=60 [facility] Comment on above: Performed By: #### L IVER, BMP, CMADM, LIPA #### [facility] [address] [place] [address] Rahul An Glucose [Mass/Vol] 135 mg/dL Critically high 74-106 [facility] Comment on above: Performed By: #### L IVER, BMP, CMADM, LIPA #### [facility] [address] [place] [address] Rahul An Potassium [Moles/Vol] 3.0 mmol/L Critically low 3.4-5.0 [facility] Comment on above: Performed By: #### L IVER, BMP, CMADM, LIPA #### [facility] [address] [place] [address] Rahul An Sodium [Moles/Vol] 137 mmol/L Normal 137-145 [facility] Comment on above: Performed By: #### L IVER, BMP, CMADM, LIPA #### [facility] [address] [place] [address] Rahul An Urea nitrogen [Mass/Vol] 14.0 mg/dL Normal 9.0-20.0 [facility] Comment on above: Performed By: #### L IVER, BMP, CMADM, LIPA #### [facility] [address] [place] [address] Rahul An Urea nitrogen/Creatinine [Mass ratio] 9.2 mg/mg Normal [facility] Comment on above: Performed By: #### L FAUSTO, MAURISIO, CMADM, LIPA #### [facility] [address] [place], [place] [phone] Rahul An PROTIMEon 12-14-2018 INR Coag (PPP) [Relative time] 1.14 {INR} Normal [facility] Comment on above: Performed By: #### P T, PTT #### [facility] [address] [place] [address] Rahul An PT Coag (PPP) [Time] PLEASE NOTE: NORMAL RANGE CHANGE 01-23-2014 DUE TO REAGENT LOT CHANGE Normal [facility] Comment on above: Performed By: #### P T, PTT #### [facility] [address] [place] [address] Rahul An PT Coag (PPP) [Time] 11.8 s Critically high 9.0-11.6 [facility] Comment on above: Performed By: #### P T, PTT #### [facility] [address] [place] [address] Rahul An PT Coag (PPP) [Time] SEE BELOW Normal [facility] Comment on above: Result Comment: FRANK RED INR: 2.0 - 3.0 CONDITIONS NOT LISTED BELOW 2.5 - 3.5 FOR PROSTHETIC HEART VALVE REPLACEMENT 2.5 - 3.5 RECURRENT THROMBOSIS Performed By: #### P T, PTT #### [facility] [address] [place] [address] Rahul An PTTon 12-14-2018 aPTT Coag (Bld) [Time] 35.0 s Normal 22.3-36.2 [facility] Comment on above: Performed By: #### P T, PTT #### [facility] [address] [place] [address] Rahul An aPTT Coag (Bld) [Time] PLEASE NOTE: NORMAL RANGE CHANGE 04-01-2015 DUE TO REAGENT LOT CHANGE Normal [facility] Comment on above: Performed By: #### P T, PTT #### [facility] [address] [place], [place] [phone] Rahul An URINE MICROSCOPIC ONLYon Bacteria LM.HPF (Urine sed) [#/Area] MODERATE Normal NONE SEEN The [facility] Comment on above: Performed By: #### JAMES CLOUDRO #### [facility] [address] [place], [place] [phone] Rahul An CAST NONE SEEN Normal NONE SEEN [facility] Comment on above: Performed By: #### JAMES CLOUDRO #### [facility] [address] [place] [address] Rahul An Crystals LM Nom (Urine sed) NONE SEEN Normal NONE SEEN [facility] Comment on above: Performed By: #### JANNY CLOUD #### [facility] [address] [place] [address] Rahul An CULTURE INDICATED Normal [facility] Comment on above: Performed By: #### JAMES CLOUDRO #### [facility] [address] [place] [address] Rahul An Epithelial cells LM.HPF (Urine sed) [#/Area] RARE Normal [facility] Comment on above: Performed By: #### JANNY CLOUD #### [facility] [address] [place] [address] Rahul An MUCOUS NONE SEEN Normal NONE SEEN [facility] Comment on above: Performed By: #### JAMES CLOUDRO #### [facility] [address] [place], [place] [address] Rahul An RBC (U) [#/Vol] 20-50 Normal 0-2 [facility] Comment on above: Performed By: #### JAMES CLOUDRO #### [facility] [address] [place], [place] [address] Rahul An WBC (Bld) [#/Vol] >100 Normal NONE SEEN The [facility] Comment on above: Performed By: #### JAMES CLOUDRO #### [facility] [address] [place], [place] [phone] Rahul An Encounters Encounter Date Encounter Type [...] Visit [facility] [address] [place] [id number] Shaikh Levin MD [address] [place] [address] [facility] Start: 01-06-2023 Influenza vaccination [...] Payer Medicare MEDICARE MEDICAR E PART B [id number] 2019-[place] [address] Medicare [id number] 2019 Unknown BCBS BCBS xxxxxx [id number] 2019-Present [phone] [address] [place] [address] [id number] 2019 Medicare [id number] 2019 Unknown [id number] 1959 Unknown [id number] 1954 Unknown [id number] 1954 Unknown [id number] 9 1954 Unknown [id number] 1954 Unknown [id number] 9 Social History Date Type Detail Facility Start: 05-24-2023 Tobacco smoking stat [facility] Never smoked tobacco [facility] Start: [...] DATE CREATED AUTHOR AUTHOR'S ORGANIZ ATION 12/07/2023 [facility] Care Teams (unrecognized sec tion and content) Assistant Case Manager Relationship Specialty Start Date End Date Shaikh [...] BE BASED ON THE PRIMARY CLINICAL RECORDS. [employer] [facility]. provides no warranty or guarantee of the accuracy or completeness of information in this document.
[2024-06-06] MEDS: dilTIAZem HCL 125 MG in 0.9 % SODIUM CHLORIDE 100 ML 10 MG IV (04:00)
[2024-06-06] MEDS: FUROSEMIDE 40 MG/4 ML VIAL IVP (05:16)
[2024-06-06 05:50] LABS: Hematocrit 39.2 % (42.0-54.0); Hemoglobin 11.6 g/dL (14.0-18.0); Mean Corpuscular HGB Conc 29.6 g/dL (29.9-35.2); Mean Corpuscular Hemoglobin 22.1 pg (25.9-34.0); Mean Corpuscular Volume 74.8 fL (80.0-94.0); Mean Platelet Volume 10.6 fL (9.5-13.5); Platelet Count 302 10^3/uL (150-450); Red Blood Count 5.24 10^6/uL (4.70-6.10); Red Cell Distribution Width 23.5 % (11.0-15.0); White Blood Count 6.2 10^3/uL (4.0-11.0)
--- NOTE | 2024-06-06 05:52 | P.HP_ITS ---
HPI H&P: HPI History of Present Illness Chief complaint: CONFUSION, AFIB WITH RVR Narrative: Patient presented to emergency room with alteration in mental status, found to have atrial fibrillation with rapid ventricular response, placed on Cardizem drip and he converted into normal sinus rhythm while up in the ICU and the Cardizem was discontinued, discussion with family actually presented to the emergency room due to altered mental status, just hard to keep awake, no focal neurological deficits from the family's perspective either, when I saw patient up in the intensive care unit noted the same Opioid HPI Opioid Management Most Recent Pain and Opioid Data: Last Pain Assessment 06/06/24 20:16 Last ORT Total Score 7 06/06/24 02:08 06/06/24 Last ORT Risk Category Moderate Risk 06/06/24 02:08 06/06/24 Ur Phencyclidine Scrn Negative (NEGATIVE) 06/05/24 17:40 05/09 01/30 Review of Systems ROS Status of ROS 10 or more systems reviewed and unremark able except as noted in history and below PFSH PFSH Medical History (Updated 06/05/24 @ 20:29 by Ashish Jules MD) Atrial fibrillation with rapid ventricular response ?I48.91 - Unspecified atrial fibrillation (ICD-10) Edema, peripheral ?R60.0 - Localized edema (ICD-10) CHF (congestive heart failure) ?I50.9 - Heart failure, unspecified (ICD-10) Atrial fibrillation ?I48.91 - Unspecified atrial fibrillation (ICD-10) Hypertension ?I10 - Essential (primary) hypertension (ICD-10) Family History (Updated 05/16/23 @ 17:14 by Yoana Rapp) Father Family history of stroke Social History Smoking status: Never smoker Highest level of school completed/degree received: 9th grade Do you think of yourself as: straight/heterosexual Gender Identity: male Meds Home Medications and Allergies Home Medications ?Medication ?Instructions ?Recorded ?Confirmed ?Type hydralazine 100 mg tablet 100 mg PO TID 03/26/23 06/05/24 History labetalol 200 mg tablet 200 mg PO Q12H 03/26/23 06/05/24 History Allergies Allergy/AdvReac Type Severity Reaction Status Date / Time No Known Drug Allergies Allergy Verified 03/26/23 04:32 Exam Narrative Exam Narrative: Jaundiced Constitutional Vital Signs, click to edit/add: Last Vital Signs Temp 97.0 F L 06/06/24 02:00 Pulse 88 06/06/24 03:30 Resp 15 06/06/24 03:30 BP 193/133 H 06/06/24 05:16 Pulse Ox 96 06/06/24 05:12 O2 Del Method Room Air 06/06/24 05:12 Documenting provider has reviewed patient's vital signs: yes Common normals: apparent distress (Restless) Chest Common normals: inspection of chest normal Respiratory Common normals: normal respiratory effort and no retractions Cardio Common normals: regular rate and regular rhythm GI Common normals: Normal to inspection, nondistended, normoactive bowel sounds present, soft to palpation and non-tender Neuro Common normals: CN's II-XII intact bilaterally and moves all extremities Results Labs Labs: Short CBC 06/05/24 Range/Units 17:00 WBC 6.6 (4.0-11.0) 10^3/uL Hgb 11.7 L (14.0-18.0) g/dL Hct 39.3 L (42.0-54.0) % Plt Count 298 (150-450) 10^3/uL BMP 06/05/24 17:00 Sodium 138 Potassium 3.8 Chloride 104 Carbon Dioxide 21.5 BUN 48.0 H Creatinine 2.11 H Glucose 97 Calcium 9.2 Liver Function 06/05/24 Range/Units 17:00 Total Bilirubin 2.8 H (0.2-1.0) mg/dL AST 44 H (15-37) U/L ALT 36 (16-63) U/L Alkaline Phosphatase 87 (46-116) U/L Albumin 3.2 L (3.4-5.0) g/dL Urine 06/05/24 Range/Units 17:40 Urine Color Yellow (YELLOW) Urine Clarity Clear (CLEAR) Urine pH 5.5 (5.0-9.0) Ur Specific [place] 1.025 (1.005-1.025) Urine Protein Trace (NEG/TRACE) mg/dL Urine Glucose (UA) Negative (NEGATIVE) mg/dL Assessment and Plan Assessment and Plan (1) Confusion: (2) Atrial fibrillation with RVR: (3) Hypertension: Plan Admission findings: Sinus tachycardia, respiratory distress, elevated blood pressure, altered mental status, hyperbilirubinemia, lactic acidosis resulting in atrial fibrillation with rapid ventricular response Atrial fibrillation with rapid ventricular spots-rate controlled, holding off on anticoagulation until dealing with the above altered mental status Hypertension -so far stable Jaundice-check ultrasound of abdomen, check direct bili, ammonia levels negative Altered mental status-this is is a bigger issue, consult teleneurology Elevated BUN/creatinine likely related to dehydration-monitor daily, patient looks dry Elevated BNP-check echocardiogram no significant peripheral edema Hypokalemia-supplement Admission status: Significant altered mental status, patient not responding to initial therapy would be from dehydration, medically necessary treatment will span 2 midnights Treating his altered mental status is atrial fibrillation with rapid ventricular response and his hyperbilirubinemia Urinary Catheter Management Urinary Catheter Management Straight: Cath placed during this visit: yes Urethral indwelling: Yes Reason for continuing: acute urinary retention Insertion date: 06/05/24
--- NOTE | 2024-06-06 05:55 | CA_ITS ---
Patient Name: OXANA JOYA MR#: [id number] : 1955 Exam Date: 06/06/2024 Ordering Doctor: DR Rajesh Nam . ECHOCARDIOGRAM REPORT PROCEDURE: CA ECHO DOPPLER COMPLETE INDICATIONS: Dyspnea COMPARISON: None. DESCRIPTION: COMPLETE ECHOCARDIOGRAM Real-time transthoracic echocardiography with 2D, M-mode, spectral and color flow Doppler performed. QUALITY: Technical quality was good. LEFT VENTRICLE: Normal chamber size. Moderate to severe concentric left ventricular hypertrophy. Systolic function appears to be at the lower limits of normal. LV EF: Visual estimation of left ventricular ejection fraction is at the lower limits of normal at 50%. DIASTOLIC: Not adequately assessed due to heart rhythm. ATRIAL SEPTUM: LEFT ATRIUM: Severe dilatation. RIGHT ATRIUM: Severe dilatation. RIGHT VENTRICLE: Mild dilatation. Normal right ventricular systolic function. TRICUSPID VALVE: Normal mobility and thickness. No stenosis with mild to moderate regurgitation. Moderate pulmonary hypertension. RVSP 51 mmHg MITRAL VALVE: Normal mobility and thickness. No evidence of mitral valve stenosis. Mild mitral annular calcification. Mild mitral regurgitation. AORTIC VALVE: Normal trileaflet appearance. Mildly calcified aortic valve. Normal leaflet mobility. No evidence of aortic valve stenosis. Mild aortic regurgitation. AORTIC ROOT: Mildly, measuring 3.8 cm. Mild dilatation of the ascending aorta measuring 3.8 cm. PULMONIC VALVE: Normal thickness and mobility. No stenosis. Trivial regurgitation. PERICARDIUM: No evidence of pericardial effusion. IVC: Normal size with partial collapse. PLEURA: CONCLUSION: 1. Moderate to severe concentric left ventricular hypertrophy with low normal systolic function. Estimated LVEF is 50%. 2. Mildly dilated right ventricle with normal systolic function. 3. Severe biatrial dilatation. 4. Mild mitral and aortic regurgitation. 5. Mild to moderate tricuspid regurgitation. 6. Moderately elevated right-sided pressures. RVSP is estimated at 51 mmHg. 7. Mildly dilated ascending aorta. Adult Echocardiography Procedure Report Left Ventricle LVEDD (3.7 - 5.6 cm): 4.69 cm LVESD (2.2 - 4.0 cm): 3.76 cm LVIVS thickness (0.6 - 1.2 cm): 1.51 cm LVPW thickness (0.5 - 1.0 cm): 1.71 cm e': 0.11 m/s E - e': 7.57 LVOT Max Gradient: 3.50 mm[Hg] LVOT Area (cm2): 0.94 m/s Peak Velocity (LVOT): 0.94 m/s Mean Velocity (LVOT): 0.57 m/s LVOT Diameter 2.02 cm Left Ventricular Ejection Fraction: 50 % Left Atrium LA Volume Index (2D A2C): 105.29 ml/m2 Left Atrium Systolic Dimension: 4.57 cm Mitral Valve MV E to A Ratio: 139.47 Mitral Valve A-Wave Peak Velocity: 0.01 m/s Mitral Valve E-Wave Peak Velocity: 0.82 m/s Right Ventricle RV Internal Diastolic Dimension: 4.41 cm Aorta AO Root Diam: 3.80 cm Ascending Ao Diam: 3.77 cm Aortic Valve AoV Area ([place]): 2.18 cm2, 2.18 cm2 AoV Area (VTI): 2.00 cm2, 2.00 cm2 Deceleration [place]: 1.36 m/s2 Pressure Half-Time: 802.80 ms Peak Velocity(Antegrade Flow): 1.37 m/s Peak Gradient(Antegrade Flow): 7.50 mm[Hg] Mean Velocity(Antegrade Flow): 0.94 m/s Mean Gradient(Antegrade Flow): 4.06 mm[Hg] Velocity Time Integral: 25.27 cm Tricuspid Valve Peak Velocity (Regurgitant Flow): 2.58 m/s, 2.60 m/s, 3.27 m/s Pulmonic Valve Mean Gradient: 3.35 mm[Hg], 2.28 mm[Hg] Mean Velocity: 0.82 m/s, 0.68 m/s Peak Velocity: 1.37 m/s, 0.99 m/s Peak Gradient: 3.95 mm[Hg], 8.73 mm[Hg], 6.29 mm[Hg] Right Atrium Right Atrium Systolic Pressure: 165.71 ml, 165.71 ml Dictated by: Mikel Camarillo M.D. on 06/06/2024 at 16:56 Approved by: Mikel Camarillo M.D. on 06/06/2024 at 17:00
[2024-06-06 06:15] LABS: Alanine Aminotransferase 33 U/L (16-63); Albumin Globulin Ratio 0.8; Albumin Level 3.1 g/dL (3.4-5.0); Alkaline Phosphatase 78 U/L (46-116); Anion Gap 14.4; Aspartate Amino Transferase 45 U/L (15-37); BUN Creatinine Ratio 24.7; Bilirubin Total 2.9 mg/dL (0.2-1.0); Calcium 8.7 mg/dL (8.5-10.1); Chloride 105 mmol/L (98-107); Estimated GFR (African America 52 (>=60 mL/min/1.73m^2); Estimated GFR (Non-African Ame 42 (>=60 mL/min/1.73m^2); Globulin 3.7 g/dL; Glucose 74 mg/dL (74-106); Magnesium 1.9 mg/dL (1.8-2.4); Potassium 3.4 mmol/L (3.5-5.1); Sodium 140 mmol/L (136-145); Total Protein 6.8 g/dL (6.4-8.2); Troponin I High Sensitivity 62.6 pg/mL (4.0-76.1)
[2024-06-06] MEDS: 0.9 % SODIUM CHLORIDE 500 ML IV (06:28)
[2024-06-06 06:32] LABS: Segmented Neut Absolute Manual 5.27 10^3/uL (1.4-6.5)
[2024-06-06 06:33] LABS: Anisocytosis 1+; Basophils Abs Manual 0.06 10^3/uL (0.00-0.10); Eosinophils Absolute Manual 0.06 10^3/uL (0.00-0.70); Lymphocytes Absolute Manual 0.43 10^3/uL (1.20-3.80); Monocytes Absolute Manual 0.37 10^3/uL (0.30-0.80)
[2024-06-06 06:34] LABS: Schistocytes 1+; Target Cells 1+
[2024-06-06] MEDS: HYDRALAZINE HCL 20 MG/ML VIAL 10 MG IVP (06:39)
[2024-06-06 07:05] LABS: Thyroid Stimulating Hormone 3.355 uIU/mL (0.358-3.740)
[2024-06-06] MEDS: NITROGLYCERIN 2% 1 GRAM PACKET 1 GM TD ×2 (07:13→15:15)
[2024-06-06] MEDS: 0.9 % SODIUM CHLORIDE 1,000 ML 100 ML IV ×2 (07:51→20:51)
--- NOTE | 2024-06-06 09:17 | CM.NOTE ---
Rounds made with Dr. Nam, pt very lethargic and does not respond to questions or follow commands at this time. Dr. Nam will have teleneuro consult with pt.
[2024-06-06] MEDS: FAMOTIDINE/PF 20 MG/2 ML VIAL IV ×2 (09:33→20:51)
[2024-06-06 09:37] LABS: Basophils Percent Auto 0.6 % (0.2-2.0); Eosinophils Percent Auto 0.6 % (0.9-7.0); Hematocrit 37.3 % (42.0-54.0); Hemoglobin 11.2 g/dL (14.0-18.0); Immature Granulocytes Abs Auto 0.02 10^3/uL (0.00-0.03); Immature Granulocytes Pct Auto 0.3 % (0.0-0.5); Lymphocytes Absolute Auto 0.4 10^3/uL (1.2-3.8); Lymphocytes Percent Auto 5.6 % (20.5-60.0); Mean Corpuscular Hemoglobin 22.4 pg (25.9-34.0); Mean Corpuscular Volume 74.7 fL (80.0-94.0); Monocytes Absolute Auto 0.4 10^3/uL (0.3-0.8); Monocytes Percent Auto 6.2 % (1.7-12.0); Neutrophils Absolute Auto 6.2 10^3/uL (1.4-6.5); Neutrophils Percent Auto 86.7 % (43.0-75.0); Platelet Count 298 10^3/uL (150-450); Red Blood Count 4.99 10^6/uL (4.70-6.10); Red Cell Distribution Width 23.2 % (11.0-15.0); White Blood Count 7.1 10^3/uL (4.0-11.0)
[2024-06-06 10:03] LABS: Lactate/Lactic Acid 1.1 mmol/L (0.4-2.0)
[2024-06-06 10:05] LABS: Alanine Aminotransferase 31 U/L (16-63); Albumin Globulin Ratio 0.9; Albumin Level 3.1 g/dL (3.4-5.0); Alkaline Phosphatase 80 U/L (46-116); Anion Gap 17.8; Aspartate Amino Transferase 46 U/L (15-37); BUN Creatinine Ratio 23.4; Bilirubin Total 2.8 mg/dL (0.2-1.0); Calcium 8.7 mg/dL (8.5-10.1); Carbon Dioxide 20.4 mmol/L (21.0-32.0); Chloride 107 mmol/L (98-107); Estimated GFR (African America 50 (>=60 mL/min/1.73m^2); Estimated GFR (Non-African Ame 41 (>=60 mL/min/1.73m^2); Globulin 3.5 g/dL; Glucose 81 mg/dL (74-106); Potassium 3.2 mmol/L (3.5-5.1); Sodium 142 mmol/L (136-145); Total Protein 6.6 g/dL (6.4-8.2)
[2024-06-06 10:08] LABS: Troponin I High Sensitivity 73.5 pg/mL (4.0-76.1)
[2024-06-06 10:09] LABS: Ammonia 29 umol/L (11-32)
[2024-06-06 12:31] LABS: Glucometer 73 mg/dL (74-106)
--- NOTE | 2024-06-06 13:18 | SWNOTE1 ---
Medicare Outpatient Observation Notice reviewed and discussed with patient's daughter, Maame, on the phone. Maame verbalized understanding and SW signed the form that it was reviewed. Original placed on pt's room and copy placed in patient?s chart.
--- NOTE | 2024-06-06 13:20 | SWNOTE1 ---
Correction from previous note, patient is not in observation, he is an inpatient. Important Message from Medicare reviewed and discussed with patient's daughter, Maame, on the phone. Maame verbalized understanding and signed the form that it was reviewed. Original placed in patient's room and copy placed in patient?s chart.
--- NOTE | 2024-06-06 13:21 | SWNOTE1 ---
SW spoke with pt's daughter on the phone. She voiced he was independent at home and he has declined since losing his . She stated they were for a long time so hard for him to function since losing her. She stated her and her brother live about 15-20 mins away. Daughter did ask about completing HCPOA without going to a filing clerk. JEN advised that at this time pt has the confusion and SW is not able to complete. SW let her know we can re-evuate tomorrow. She voiced understanding. SW to follow as needed.
--- NOTE | 2024-06-06 14:01 | US_ITS ---
The [address] [address] Patient Name: OXANA JOYA MRN: [id number] date: 1955 Sex: M Assigned Patient Location: ICU Current Patient Location: ICU Accession/Order Number: [id number] Exam Date: 06/06/2024 14:02 Report Date: 06/06/2024 15:05 At the request of: RAMON SUTHERLAND Procedure: US abdomen complete EXAMINATION: US abdomen complete HISTORY: Jaundice COMPARISON: No relevant comparison available. TECHNIQUE: High resolution sonographic examination of the abdomen was performed. FINDINGS: LIVER: Normal size and echotexture. No significant masses. PORTAL VEIN: Duplex Doppler demonstrates normal hepatopetal flow pattern with flow velocity averaging 35 cm/s. BILIARY: Abnormal wall thickening of gallbladder, 5 mm. Trace amount of free fluid. No stones or abnormal duct dilation. PANCREAS: Not well seen. No visible mass, abnormal atrophy, or ductal dilatation. SPLEEN: Normal size and echotexture. KIDNEYS: Dilated right renal pelvis and calyces. Unremarkable left kidney. AORTA/VASCULAR: No aneurysm. OTHER: Small amount free fluid within left lung base. US/US abdomen complete IMPRESSION: 1. Acute versus chronic cholecystitis. 2. Dilated right renal pelvis representing hydronephrosis and possible ureteral obstruction versus prominent parapelvic cyst. No prior studies for comparison. 3. Small left pleural effusion. Electronically authenticated by: TASHIA ROSE Date: 06/06/2024 15:05
[2024-06-06 14:39] LABS: Ammonia 18 umol/L (11-32)
[2024-06-06 14:59] LABS: Bilirubin Direct 1.1 mg/dL (0.0-0.2)
--- NOTE | 2024-06-06 15:01 | MR_ITS ---
The [address] [address] Patient Name: OXANA JOYA MRN: [id number] date: 1955 Sex: M Assigned Patient Location: ICU Current Patient Location: ICU Accession/Order Number: [id number] Exam Date: 06/06/2024 17:15 Report Date: 06/06/2024 18:11 At the request of: RAMON SUTHERLAND Procedure: MR head/brain wo con EXAM: MRI of the brain without IV contrast. REASON FOR EXAM: Altered mental status COMPARISON: CT scan from yesterday FINDINGS: Motion artifact substantially degrades image quality and severely impairs sensitivity of the exam. No abnormal restricted diffusion or evidence of evolving infarct. No hydrocephalus. No mass effect or midline shift. Mild generalized cerebral and cerebellar volume loss. Remainder unremarkable. MR/MR head/brain wo con IMPRESSION: No evidence of acute ischemic infarct. Exam is otherwise limited by the motion artifact. Electronically authenticated by: MATTHEW CARDOSO Date: 06/06/2024 18:11
[2024-06-06 15:08] LABS: Alanine Aminotransferase 36 U/L (16-63); Albumin Globulin Ratio 0.8; Albumin Level 3.1 g/dL (3.4-5.0); Alkaline Phosphatase 81 U/L (46-116); Anion Gap 21.4; Aspartate Amino Transferase 54 U/L (15-37); BUN Creatinine Ratio 23.4; Bilirubin Total 2.8 mg/dL (0.2-1.0); Calcium 8.9 mg/dL (8.5-10.1); Carbon Dioxide 18.3 mmol/L (21.0-32.0); Chloride 106 mmol/L (98-107); Estimated GFR (African America 50 (>=60 mL/min/1.73m^2); Estimated GFR (Non-African Ame 41 (>=60 mL/min/1.73m^2); Globulin 3.8 g/dL; Glucose 74 mg/dL (74-106); Potassium 3.7 mmol/L (3.5-5.1); Sodium 142 mmol/L (136-145); Total Protein 6.9 g/dL (6.4-8.2)
[2024-06-06] MEDS: HYDRALAZINE HCL 25 MG TABLET 100 MG PO (15:15)
[2024-06-06 18:40] LABS: Glucometer 70 mg/dL (74-106)
[2024-06-06] MEDS: LABETALOL HCL 100 MG TABLET 200 MG PO (20:51)
--- NOTE | 2024-06-06 21:03 | RESP.RT ---
Patient unable to do PEP at this time
[2024-06-06] MEDS: CEFTRIAXONE 2,000 MG in 0.9 % SODIUM CHLORIDE 100 ML 200 MG IV (21:45)
[2024-06-06] MEDS: METRONIDAZOLE/SODIUM CHLORIDE 500 MG/100 ML PREMIX 100 MG IV (22:22)
[2024-06-06 22:29] LABS: Glucometer 86 mg/dL (74-106)
[2024-06-07 00:30] VITALS: PULSE 86
[2024-06-07 02:33] VITALS: BP 139/81; PULSE 113; O2SAT 99
[2024-06-07 02:35] VITALS: PULSE 107
[2024-06-07 04:07] LABS: Vitamin B12 >2000 pg/mL (232-1245)
[2024-06-07 05:08] LABS: HBsAg Screen Negative (Negative); HCV Ab Non Reactive (Non Reactive); Hep A Ab, IgM Negative (Negative); Hep B Core Ab, IgM Negative (Negative)
--- NOTE | 2024-06-07 07:57 | P.DS_ITS ---
DS: Providers Provider Date of admission: 06/06/24 01:48 Primary care physician: Non-Staff Physician, Consults: 06/06/24 Consult to Dietitian Routine Reason for consultation: weight loss Has provider been notified: No 06/06/24 05:53 Occupational Therapy Eval and Treat Routine Reason for consultation: Only if needed for Rehab Has provider been notified: No Physical Therapy Eval and Treat Routine Reason for consultation: Eval and Treat Has provider been notified: No 06/06/24 08:56 Consult to TeleNeurology Routine Reason for consultation: AMS Has provider been notified: No 06/06/24 09:16 Speech Therapy Eval and Treat Routine Reason for consultation: dysarthria Has provider been notified: No DS: Diagnosis Discharge Diagnosis (1) Confusion: (2) Atrial fibrillation with RVR: (3) Hypertension: Plan Admission findings: Sinus tachycardia, respiratory distress, elevated blood pressure, altered mental status, hyperbilirubinemia, lactic acidosis resulting in atrial fibrillation with rapid ventricular response Atrial fibrillation with rapid ventricular spots-rate controlled, holding off on anticoagulation until dealing with the above altered mental status Hypertension -so far stable Jaundice-check ultrasound of abdomen, check direct bili, ammonia levels negative Altered mental status-this is is a bigger issue, consult teleneurology Elevated BUN/creatinine likely related to dehydration-monitor daily, patient looks dry Elevated BNP-check echocardiogram no significant peripheral edema Hypokalemia-supplement Admission status: Significant altered mental status, patient not responding to initial therapy would be from dehydration, medically necessary treatment will span 2 midnights Treating his altered mental status is atrial fibrillation with rapid ventricular response and his hyperbilirubinemia DS: Summary Hospital Course Hospital Course: Admitted with Sinus tachycardia, respiratory distress, elevated blood pressure, altered mental status, hyperbilirubinemia, lactic acidosis resulting in atrial fibrillation with rapid ventricular response. Labs were overall improving but patient's altered mental status was persisting, consultation with teleneurologist recommended transfer to tertiary care facility, patient was transferred for continued care. Follow-up with his PCP postdischarge Time Spent with Patient Time attestation: Total time spent providing and/or coordinating discharge services: Exam Narrative Exam Narrative: Jaundiced Constitutional Vital Signs, click to edit/add: Last Vital Signs Temp 98.1 F 06/06/24 19:00 Pulse 107 H 06/07/24 02:35 Resp 19 06/07/24 00:31 BP 139/81 06/07/24 02:33 Pulse Ox 99 06/07/24 02:33 O2 Del Method Room Air 06/07/24 02:33 Documenting provider has reviewed patient's vital signs: yes Common normals: apparent distress (Restless) Chest Common normals: inspection of chest normal Respiratory Common normals: normal respiratory effort and no retractions Cardio Common normals: regular rate and regular rhythm GI Common normals: Normal to inspection, nondistended, normoactive bowel sounds present, soft to palpation and non-tender Neuro Common normals: CN's II-XII intact bilaterally and moves all extremities Discharge Plan Discharge Disposition: [facility] Condition: Fair Discharge Date/Time: 06/07/24 03:55 Discharge Location: [facility] Discharge location: Bed A-919
== END 2024-06-07 03:55 | disposition short-term general hospital (02) | DRG 309 ==
LOC: ER 20:29 → ICU 06-06 01:58
PROVIDERS: Emergency Medicine; Registered Nurse; Admitting Provider Family Medicine; Emergency Provider Emergency Medicine; Visit Provider Family Medicine
DX: I48.91 Unspecified atrial fibrillation (principal); E87.20 Acidosis, unspecified; N17.9 Acute kidney failure, unspecified; Z79.01 Long term (current) use of anticoagulants; Z79.899 Other long term (current) drug therapy; I11.0 Hypertensive heart disease with heart failure; I50.9 Heart failure, unspecified; R06.03 Acute respiratory distress; E80.6 Other disorders of bilirubin metabolism; R79.89 Other specified abnormal findings of blood chemistry; E87.6 Hypokalemia; E86.0 Dehydration; F10.11 Alcohol abuse, in remission; R44.1 Visual hallucinations; F32.A Depression, unspecified; E78.00 Pure hypercholesterolemia, unspecified; Z87.440 Personal history of urinary (tract) infections; Z87.891 Personal history of nicotine dependence; T50.906A Underdosing of unspecified drugs, medicaments and biological substances, initial encounter; Z91.148 Patient's other noncompliance with medication regimen for other reason; R41.82 Altered mental status, unspecified
CPT/HCPCS: 36415; 51702; 51798; 70450; 70551; 71045; 76700; 80053; 80074; 80307; 80320; 81001; 82140; 82248; 82607; 82746; 82948; 83605; 83735; 83880; 84436; 84443; 84484; 85007; 85025; 85027; 85610; 87040; 87804; 87811; 93005; 93306; 94761; 96365; 96366; 96375; 96376; 99285; J0360; J0696; J1836; J1940; J2060; J3490

== ENCOUNTER 2024-07-27 09:15 | Outpatient (OUT) | payer MEDICARE, OTHER, BC, SELFPAY ==
--- OUTSIDE RECORDS SUMMARY | 2024-07-27 09:18 | XMS_ITS | CCD ---
Author Organization [facility] Care Team Providers Care Registered Midwife Name Role Phone MISC, DOCTOR Primary Care Unavailable PAY, PETR Admitting Unavailable PAY, PETR Attending Unavailable PAY, PETR Consulting Unavailable Shaikh Juarez MD Primary Care Provider SHAIKH JUAREZ Attending Unavailable LARRY, Attending Unavailable SHAIKH JUAREZ Attending Unavailable Services, [facility] Primary Care Provider SERVICES, [facility] Primary Care Unava ilable ANTIONE OZUNA Consulting Unavailable SERVICES, [facility] Primary Care Unava ilable SERVICES, [facility] Unava ilable SERVICES, [facility] Unava ilable SERVICES, [facility] Unava ilable SERVICES, [facility] Primary Care Unava ilable MATTHEW PHILIPPE Admitting Unavailable RAMON SUTHERLAND Referring Unavailable SERVICES, [facility] Unava ilable CATRINA MARIE Consulting Unavailable TABATHA LEÓN Attending Unavailable LIZBETH SWANSON Consulting Unavailable NICOLAS WELLS Consulting Unavailable RICHARDSON BRANDT Consulting Unavailable FREDERICK LUONG Consulting Unavailable [facility] Primary Care Physician DONAL MCGARRY Attending Unavail able DONAL MCGARRY Attending Unavail able KIKI OLIVIER Attending Unavailable Allergies Allergy Classification Reported Allergen(s) Allergy Type Date of Onset Reaction(s) Facility (1 source) No Known Medication Allergies; Translations: [No Known Medication Allergies] Propensity to adverse reactions (disorder) [facility] Medications Current Medications Medication Drug Class(es) Dates Sig (Normalized) Sig (Original) acetaminophen 325 mg oral tablet (2 sources) Start: 06-25-2024 take 1 mg by mouth every four hours acetaminophen 325 mg Tab mg tab(s), Oral, q4hr, Refills(s) 0 Start Date: 06/25/24 Status: Ordered Start: 06-07-2024 take 1 tablet by robby th every four hours as needed 650 mg, oral, Every 4 hours PRN, Temperature greater than 38.3 C, Starting on Mon06/07/24 at 0531, [Warning: Total Acetaminophen not to exceed more than 4 grams (4000 mg) in 24 hours] apixaban 5 mg oral tablet (6 sources) Factor Xa Inhibitor Start: 06-25-2024 take 1 mg by mouth twice daily apixaban 5 mg oral tablet mg tab(s), Oral, BID, Refills(s) 0 Start Date: 06/25/24 Status: Ordered Start: 06-11-2024 take 5 mg by mouth twice daily 5 mg, oral, 2 times daily, First dose on Mon06/11/24 at 2100, Indication: Nonvalvular Atrial Fibrillation (NVAF) Start: 05-17-2023 take 1 tablet by robby th in the morning Eliquis 5 MG tablet Take 5 mg by mouth in the morning and 5 mg before bedtime. 0 05/17/2023 Active Start: 01-04-2021 take 1 tablet by robby th every twelve hours apixaban (ELIQUIS) 5 mg tablet Take 1 tablet (5 mg total) by mouth every 12 (twelve) hours. 180 tablet 3 01/04/2021 Active atorvastatin 40 mg oral tablet (4 sources) HMG-CoA Reductase Inhibitor Start: 06-25-2024 atorvastatin 40 mg T ab 40 mg = 1 tab(s), Refills(s) 0 Start Date: 06/25/24 Status: Ordered Start: 06-07-2024 take 1 tablet by robby th once daily atorvastatin (LIPITOR) 40 mg tablet Take 1 tablet (40 mg total) by mouth nightly. 30 tablet 06/12/2024 Active carvedilol 12.5 mg oral tablet (4 sources) alpha-Adrenergic Manisha, beta-Adrenergic Manisha Start: 06-25-2024 carvedilol 12.5 mg Tab 12.5 mg = 1 tab(s), Refills(s) 0 Start Date: 06/25/24 Status: Ordered Start: 06-08-2024 take 1 tablet by robby th in the morning, then take 1 tablet by mouth at bedtime carvediloL (COREG) 12.5 mg tablet Take 1 tablet (12.5 mg total) by mouth in the morning and 1 tablet (12.5 mg total) before bedtime. 60 tablet 06/12/2024 Active cefTRIAXone 1000 mg injection (2 sources) Cephalosporin Antibacterial Start: 06-07-2024 End: 06-13-2024 take 1000 mg intravenously every twenty-four hours 1,000 mg, intravenous, at 100 mL/hr, Administer over 30 Minutes, Every 24 hours, First dose (after last modification) on Mon06/12/24 at 1030, For 1 day, Look-alike/sound-alike medication - verify indication for use. Do not co-administer with calcium-containing solutions such as Lactated Ringers., Indication: Intra-abdominal docusate sodium 50 mg / sennosides, mcfp 8.6 mg oral tablet (1 source) Start: 06-11-2024 take 2 tablets by mouth once daily 2 tablet, oral, Nightly, First dose on Mon06/11/24 at 2200 folic acid 1 mg oral tablet (4 sources) Start: 06-25-2024 folic acid 1 mg Tab 1 mg = 1 tab(s), Refills(s) 0 Start Date: 06/25/24 Status: Ordered Start: 06-13-2024 take 1 tablet by robby th in the morning folic acid (FOLVITE) 1 mg tablet Take 1 tablet (1 mg total) by mouth in the morning. 30 tablet 06/13/2024 Active Start: 06-13-2024 take 1 tablet by robby th in the morning folic acid (FOLVITE) 1 mg tablet Take 1 tablet (1 mg total) by mouth in the morning. 30 tablet 06/13/2024 Start: 06-07-2024 take 1 mg by mouth once daily 1 mg, oral, Daily, First dose on Mon06/07/24 at 0900, Look-alike/sound-alike medication - verify indication for use. furosemide 40 mg oral tablet (6 sources) Loop Diuretic Start: 06-25-2024 furosemide 40 mg Tab 40 mg = 1 tab(s), Refills(s) 0 Start Date: 06/25/24 Status: Ordered Start: 02-06-2025 take 1 tablet by mouth once da brandie furosemide (LASIX) 40 mg tablet Take 1 tablet (40 mg total) by mouth daily. 30 tablet 06/13/2024 Active Start: 06-13-2024 take 1 tablet by mouth once da brandie furosemide (LASIX) 40 mg tablet Take 1 tablet (40 mg total) by mouth daily. 30 tablet 06/13/2024 Start: 06-11-2024 40 mg, oral, D aily, First dose on Mon06/11/24 at 0900, HOLD FOR BLOOD PRESSURE LESS THAN 100 MMHG Look-alike/sound-alike medication - verify indication for use. Start: 06-08-2024 End: 06-10-2024 take 40 mg intravenously every twelve hours 40 mg, intravenous, Every 12 hours, First dose on Mon06/08/24 at 1100, For 6 doses, Look-alike/sound-alike medication - verify indication for use. IVP rate = 20 mg/min Start: 05-24-2023 End: 07-23-2023 take 1 tablet by mouth in the morning furosemide (Lasix) 40 MG tablet Indications: Chronic systolic heart failure (CMS/HCC) Take 1 tablet (40 mg) by mouth in the morning and 1 tablet (40 mg) before bedtime. 60 tablet 1 05/24/2023 07/23/2023 Active glucagon (rdna) 1 mg injection (1 source) Antihypoglycemic Agent Start: 06-07-2024 1 mg, intramuscular, As needed, low blood sugar, blood glucose less than 70 mg/dL and unconscious or NPO without IV access., Starting on Mon06/07/24 at 0530, If conscious and not NPO, immediately follow with meal tray or high protein (7Grams) snack if tray not available. If NPO, initiate IV 5% Dextrose/Water at 100 mL/hr and contact prescriber for additional orders. If blood glucose is not greater than 70 mg/dL after initial treatment, repeat treatment. 150 ml glucose 50 mg/ml injection (3 sources) Start: 06-07-2024 take 70 mg intravenously every hour 100 mL/hr, intravenous, Continuous PRN, blood glucose less than 70 mg/dL, Starting on Mon06/07/24 at 0530, Use immediately following dextrose 50% or glucagon treatment for patients who are unconscious or NPO. Contact prescriber for additional orders. If blood glucose is not greater than 70 mg/dL after initial treatment, repeat treatment. Start: 06-07-2024 15 g, oral, As needed, low blood sugar, blood glucose less than 70 mg/dL, Starting on Mon06/07/24 at 0530, If patient conscious and taking PO. If blood glucose is not greater than 70 mg/dL after initial treatment, repeat treatment. Start: 06-07-2024 25 mL, intrave nous, As needed, low blood sugar, blood glucose less than 70 mg/dL and unconscious or NPO with IV access, Starting on Mon06/07/24 at 0530, Push over 1-3 minutes STAT. If conscious and not NPO, immediately follow with meal tray or high protein (7 grams) snack if tray not available. If NPO, initiate 5% dextrose in water at 100 mL/hr and contact prescriber for additional orders. If blood glucose is not greater than 70 mg/dL after initial treatment, repeat treatment. VESICANT (RED) Warning: HYPERTONIC solution. LORazepam (3 sources) Benzodiazepine Start: 06-08-2024 take 1 tablet by mouth every four hours as needed LORazepam (ATIVAN) tablet 2 mg Start: 06-08-2024 take 1 tablet by robby th every four hours as needed LORazepam (ATIVAN) tablet 3 mg Start: 06-08-2024 take 1 tablet by robby th every four hours as needed LORazepam (ATIVAN) tablet 1 mg losartan potassium 100 mg oral tablet (1 source) Angiotensin 2 Receptor Manisha Start: 05-25-2023 End: 07-24-2023 take 1 tablet by mouth in the morning losartan (Cozaar) 100 MG tablet Indications: Chronic systolic heart failure (CMS/HCC) , Primary hypertension (CMS/HCC) Take 1 tablet (100 mg) by mouth in the morning. 30 tablet 1 05/25/2023 07/24/2023 Active 50 ml magnesium sulfate 40 mg/ml injection (2 sources) Start: 06-07-2024 2,000 mg, intravenous, at 25 mL/hr, Administer over 120 Minutes, As needed, Magnesium level 1.7 to 1.9 mg/dL, or Ionized Magnesium level 0.45 to 0.5 mmol/L., Starting on Mon06/07/24 at 0612, Recheck magnesium level 4 hours after infusion complete. With each magnesium result continue the replacement orders as needed. Start: 06-07-2024 4,000 mg, intr avenous, at 25 mL/hr, Administer over 240 Minutes, As needed, Magnesium level 1.6 mg/dL or less, or Ionized Magnesium level 0.44 mmol/L or less, Starting on Mon06/07/24 at 0612, Recheck magnesium level 4 hours after infusion complete. With each magnesium result continue the replacement orders as needed. melatonin 5 mg oral tablet (1 source) Start: 06-07-2024 take 5 mg by mouth once daily 5 mg, oral, Nightly, First dose on Mon06/07/24 at 2200 5 ml metoprolol tartrate 1 mg/ml injection (2 sources) beta-Adrenergi c Manisha Start: 06-08-2024 take 5 mg intravenously every six hours as needed 5 mg, intravenous, Every 6 hours PRN, For heart rate greater than 120, Starting on 06/08/24 at 1711, Look-alike/sound- alike medication - verify indication for use. Start: 05-24-2023 End: 07-23-2023 take 1 tablet by mouth every twenty-four hours in the morning metoprolol succinate XL (Toprol XL) 100 MG 24 hr tablet Indications: Chronic systolic heart failure (CMS/HCC) Take 1 tablet (100 mg) by mouth in the morning. Do not crush or chew.. 30 tablet 1 05/24/2023 07/23/2023 Active midodrine hydrochloride 5 mg oral tablet (2 sources) alpha-Adrenergic Agonist Start: 06-09-2024 take 5 mg by mouth three times daily 5 mg, oral, 3 times daily, First dose on 06/09/24 at 1400, Hold if blood pressure is greater than 100 mmHg Look-alike/sound-alike medication - verify indication for use. Start: 06-09-2024 End: 06-09-2024 take 5 mg by mouth once 5 mg, oral, Once, On Sun 06/09 at 1330, For 1 dose, Look-alike/sound-alike medication - verify indication for use. [id number]-[id number]-XV-calcium &mi ns (THERAGRAN-M) 9 mg iron-400 mcg tablet 1 tablet (1 source) Start: 06-07-2024 take 1 tablet by mouth once daily as needed 1 tablet, oral, Daily PRN, administer instead of IV MVI when patient tolerating oral diet, Starting on Mon06/07/24 at 0620 polyethylene glycol 3350 170 00 mg powder for oral solution (1 source) Osmotic Laxative Start: 06-11-2024 17 g, oral, Daily PRN, constipation, Starting on Mon06/11/24 at 0753, Look-alike/soun d-alike medication - verify indication for use. Dissolve 1 packet (17 gm) in 8 ounces of water, juice, soda, coffee or tea. Potassium Chloride (5 sources) Start: 06-25-2024 Potassium Chloride (Zpk-Bxer-Gwk 10) mEq, Oral, BID, Refills(s) 0 Start Date: 06/25/24 Status: Ordered Start: 06-07-2024 potassium chlo ride (K-TAB,KLOR-CON) CR tablet 20-40 mEq Start: 09-16-2021 potassium chlo ride (K-TAB,KLOR-CON) 10 MEQ CR tablet TAKE 2 TABLETS BY MOUTH EVERY DAY 180 tablet 1 09/16/2021 Active QUEtiapine 25 mg oral tablet (3 sources) Atypical Antipsychotic Start: 06-07-2024 take 1 tablet by mouth once daily QUEtiapine (SEROquel) 25 mg tablet Take 1 tablet (25 mg total) by mouth nightly. 30 tablet 06/12/2024 Active spironolactone 50 mg oral tablet (1 source) Aldosterone Antagonist Start: 05-24-2023 End: 07-23-2023 take 1 tablet by mouth in the morning spironolactone (Aldactone) 50 MG tablet Indications: Chronic systolic heart failure (CMS/HCC) Take 1 tablet (50 mg) by mouth in the morning. 30 tablet 1 05/24/2023 07/23/2023 Active tamsulosin hydrochloride 0.4 mg oral capsule (4 sources) alpha-Adrenergic Manisha Start: 06-25-2024 tamsulosin 0.4 mg Cap 0.4 mg = 1 cap(s), Refills(s) 0 Start Date: 06/25/24 Status: Ordered Start: 06-08-2024 take 1 capsule by mo uth once daily tamsulosin (FLOMAX) 0.4 mg capsule Take 1 capsule (0.4 mg total) by mouth nightly. 30 capsule 06/12/2024 Active thiamine 100 mg oral tablet (4 sources) Start: 06-25-2024 take 1 mg by mouth once daily thiamine 100 mg Tab mg tab(s), Oral, Daily, Refills(s) 0 Start Date: 06/25/24 Status: Ordered Start: 06-13-2024 take 1 tablet by robby th in the morning thiamine HCl (VITAMIN B-1) 100 mg tablet Take 1 tablet (100 mg total) by mouth in the morning. 30 tablet 06/13/2024 Active Start: 06-13-2024 take 1 tablet by robby th in the morning thiamine HCl (VITAMIN B-1) 100 mg tablet Take 1 tablet (100 mg total) by mouth in the morning. 30 tablet 06/13/2024 Start: 06-07-2024 take 100 mg by mouth once ray y 100 mg, oral, Daily, First dose on Mon06/07/24 at 0630, Look-alike/sound-alike medication - verify indication for use. Completed/Discontinued Medications Medication Drug Class(es) Dates Sig (Normalized) Sig (Original) 20 ml albumin human, mcfp 250 mg/ml injection (2 sources) Human Serum Albumin Start: 06-09-2024 End: 06-10-2024 25 g, intravenous, Once, On 06/10/24 at 0615, For 1 dose, Do not exceed 1 mL/minute in patients with normal plasma volume; 2 to 3 mL/minute in patients with hypoproteinemia For BUMINATE, administer using a 15 micron or smaller filter. A filter is NOT required for administration by other brands., Indication: Other, Indication: Hypotension, volume overload amLODIPine 10 mg oral tablet (3 sources) Dihydropyridine Calcium Channel Manisha Start: 12-30-2021 End: 06-12-2024 take 10 mg by mouth once daily 10 mg, oral, Daily, First dose on Mon06/08/24 at 1100, HOLD FOR SYSTOLIC BLOOD PRESSURE LESS THAN 100 MMHG Look-alike/sound-ali ke medication - verify indication for use. Avoid grapefruit juice. aspirin 81 mg delayed release oral tablet (2 sources) Platelet Aggregation Inhibitor, Nonsteroidal Anti-inflammatory Drug End: 06-12-2024 take 1 tablet by mouth in the morning aspirin 81 mg Take 1 tablet (81 mg total) by mouth in the morning. 06/12/2024 Discontinued (Stop Taking at Discharge) 0.4 ml enoxaparin sodium 100 mg/ml prefilled syringe (1 source) Low Molecular Weight Heparin Start: 06-10-2024 End: 06-11-2024 inject 40 mg by subcutaneous injection once daily 40 mg, subcutaneous, Daily, First dose on Mon06/10/24 at 0900, Look-alike/sound-ali ke medication - verify indication for use. gadoteridoL (PROHANCE) injection 6.22 mmol 12.44 mL (1 source) Start: 06-10-2024 End: 06-10-2024 6.22 mmol (0.1 mmol/kg 62.2 kg), intravenous, Once in imaging, contrast, MRI, Starting on Mon06/10/24 at 0211, For 1 dose, VESICANT (RED), Indications: magnetic resonance imaging 500 ml heparin sodium, porcine 50 unt/ml injection (1 source) Unfractionated Heparin, Anti-coagulant Start: 06-07-2024 End: 06-08-2024 300-3,500 Units/hr (6-70 mL/hr), intravenous, Continuous, Starting on Mon06/07/24 at 1030, Maximum initial infusion: 1000 units/hr Heparin Low Intensity Infusion (Cardiology) Heparin Adjustment Table: aPTT Therapeutic Goal: 50-70 Seconds If aPTT results: -less than 40 seconds: bolus with 2000 units, increase rate by 150 units/hr (3 mL/hr), next aPTT in 6 hrs. -40 - 49 seconds: increase rate by 100 units/hr (2 mL/hr), next aPTT in 6 hours. -50 - 70 seconds: next aPTT in 6 hours then every AM. -71 - 90 seconds: decrease rate by 50 units/hr (1 mL/hr), next aPTT in 6 hours. -91 - 120 seconds: stop infusion for 30 minutes, decrease rate by 100 units/hr (2 mL/hr), next aPTT in 6 hours. -121 - 150 seconds: stop infusion for 60 minutes, decrease rate by 150 units/hr (3 mL/hr), next aPTT in 6 hours. - Greater than 150 seconds: stop infusion for 60 minutes, decrease rate by 250 units/hr (5 mL/hr), next aPTT in 6 hours. Monitor for signs of bleeding. Look-alike/sound-ali ke medication - verify indication for use., Indication: Afib or Mechanical Valve, INITIAL Infusion Dose (Units/hr): 750 units/h hydrALAZINE hydrochloride 100 mg oral tablet (3 sources) Arteriolar Vasodilator Start: 02-04-2021 End: 06-12-2024 100 mg, oral, 3 times daily, First dose on Mon06/08/24 at 1400, HOLD IF SYSTOLIC BLOOD PRESSURE IS LESS THAN 100 MMHG OR HEART RATE GREATER THAN 90 Look-alike/sound-ali ke medication - verify indication for use. 4 ml labetalol hydrochloride 5 mg/ml cartridge (3 sources) beta-Adrenergic Manisha Start: 06-07-2024 End: 06-07-2024 20 mg, intravenous, Once, On Mon06/07/24 at 2315, For 1 dose, Look-alike/sound-ali ke medication - verify indication for use. Start: 02-23-2022 End: 06-12-2024 take 2 tablets by mouth in the morning, then take 2 tablets by mouth at bedtime labetaloL (NORMODYNE) 200 mg tablet Take 2 tablets (400 mg total) by mouth in the morning and 2 tablets (400 mg total) before bedtime. 120 tablet 5 02/23/2022 06/12/2024 Discontinued (Stop Taking at Discharge) lactulose 667 mg/ml oral solution (1 source) Osmotic Laxative Start: 06-07-2024 End: 06-09-2024 20 g, oral, 2 times daily, First dose on Mon06/07/24 at 1300, HOLD IF PATIENT HAS HAD 2 BOWEL MOVEMENTS IN A DAY Titrate for 2-3 BM per day 100 ml metroNIDAZOLE 5 mg/ml injection (2 sources) Nitroimidazole Antimicrobial Start: 06-07-2024 End: 06-12-2024 take 500 mg intravenously every twelve hours 500 mg, intravenous, at 100 mL/hr, Administer over 60 Minutes, Every 12 hours, First dose (after last modification) on Mon06/11/24 at 2100, For 1 day, Look-alike/sound -alike medication - verify indication for use., Indication: Intra-abdominal olmesartan medoxomil 40 mg oral tablet (2 sources) Angiotensin 2 Receptor Manisha Start: 08-18-2020 End: 06-12-2024 take 1 tablet by mouth once daily olmesartan (BENICAR) 40 mg tablet Take 1 tablet (40 mg total) by mouth daily. 30 tablet 5 08/18/2020 06/12/2024 Discontinued (Stop Taking at Discharge) 1000 ml sodium chloride 9 mg/ml injection (6 sources) Start: 06-10-2024 End: 06-10-2024 50 mL, intravenous, Once in imaging, pre/post contrast, MRI, Starting on Mon06/10/24 at 0211, For 1 dose Start: 06-10-2024 End: 06-10-2024 10 mL, intravenous, Once in imaging, line care, MRI, Starting on Mon06/10/24 at 0211, For 1 dose Start: 06-07-2024 3 mL, intraven ous, Every 12 hours scheduled, First dose on Mon06/07/24 at 0900 Start: 06-07-2024 3 mL, intraven ous, As needed, line care, before and after each intermittent use, Starting on Mon06/07/24 at 0530 Start: 06-07-2024 take 20 mL intraveno usly every hour as needed 20 mL/hr, intravenous, Continuous PRN, to maintain patency of lines, Starting on Mon06/07/24 at 0530 Start: 06-07-2024 take 25 mL intraveno usly every hour as needed 25 mL, intravenous, at 100 mL/hr, Administer over 15 Minutes, As needed, line care, line care after IVPB administration, Starting on Mon06/07/24 at 0530 Problems Active Problems Problem Classification Problem Date Documented Date Episodic/Chronic Acute cerebrovascular disease (1 source) Cerebrovascular accident 06-25-2024 Chronic Administrative/socia l admission (1 source) Patient encounter status; Translations: [Persons encountering health services in other specified circumstances] Onset: 4 05-24-2023 Episodic Cardiac dysrhythmias (5 sources) Unspecified atrial fibrillation; Translations: [Paroxysmal atrial fibrillation] Onset: 9 05-24-2023 Chronic Cardiac dysrhythmias (3 sources) Bradycardia; Translations: [Bradycardia, unspecified] Onset: 5 09-14-2017 Episodic Chronic kidney disease (1 source) Chronic kidney disease stage 3A ; Translations: [Stage 3a chronic kidney disease (HCC)] Onset: 4 05-24-2023 Chronic Congestive heart failure; nonhypertensive (1 source) Chronic systolic heart failure; Translations: [Chronic systolic (congestive) heart failure] Onset: 4 05-24-2023 Chronic Deficiency and other anemia (1 source) Normocytic anemia; Translations: [Anemia, unspecified] Onset: 4 05-24-2023 Episodic Disorders of lipid metabolism (2 sources) Pure hypercholesterolemia; Translations: [Pure hypercholesterolemia, unspecified] 09-14-2017 Chronic Disorders of lipid metabolism (1 source) Pure hypercholesterolemia, unspecified; Translations: [PURE HYPERCHOLESTEROLEMIA UNSPEC] Onset: 9 Essential hypertension (5 sources) Essential (primary) hypertension; Translations: [Essential hypertension] Onset: 9 Resolved: 1 05-24-2023 Chronic Fluid and electrolyte disorders (4 sources) Dehydration; Translations: [Hypokalemia] Onset: 9 09-14-2017 Episodic Genitourinary symptoms and ill-defined conditions (3 sources) Hematuria, unspecified; Translations: [HEMATURIA UNSPECIFIED] Onset: 9 Episodic Hypertension with complications and secondary hypertension (2 sources) Hypertensive heart disease; Translations: [Hypertensive heart disease without heart failure] 09-14-2017 Chronic Malaise and fatigue (1 source) Other fatigue; Translations: [OTHER FATIGUE] Onset: 9 Episodic Mood disorders (1 source) Depressive disorder 06-25-2024 Chronic Osteoarthritis (1 source) Arthritis 06-25-2024 Chronic Other aftercare (1 source) [facility] (current) use of anticoagulants; Translations: [ALF CURRNT USE ANTICOAGULANTS] Onset: 9 Episodic Other aftercare (1 source) [facility] (current) use of aspirin; Translations: [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 ASPIRIN] Onset: 9 Episodic Other aftercare (1 source) Other detention (current) drug therapy; Translations: [OTH ALF CURRENT DRUG THERAPY] Onset: 9 Episodic Other and ill-defined heart disease (1 source) Heart disease 06-25-2024 Chronic Other diseases of veins and lymphatics (1 source) Venous insufficiency of leg; Translations: [Venous insufficiency (chronic) (peripheral)] Onset: 4 05-24-2023 Episodic Other liver diseases (1 source) Disease of liver 06-25-2024 Chronic Other nervous system disorders (3 sources) Disorder of brain; Translations: [Encephalopathy, unspecified] Onset: 5 06-07-2024 Chronic Other nervous system disorders (1 source) Encephalopathy, unspecified; Translations: [Encephalopathy, unspecified] Onset: 5 Chronic Other screening for suspected conditions (not mental disorders or infectious disease) (2 sources) Electrocardiogram abnormal; Translations: [Abnormal electrocardiogram [ECG] [EKG]] 09-14-2017 Episodic Residual codes; unclassified (1 source) Pain, unspecified; Translations: [Pain, unspecified] Onset: 5 Episodic Unclassified (1 source) Nadia AMS Onset: 5 Unclassified (1 source) Acute Encephalopathy Onset: 5 Urinary tract infections (1 source) Acute cystitis with hematuria; Translations: [ACUTE CYSTITIS WITH HEMATURIA] Onset: 9 Episodic Past or Other Problems Problem Classification Problem Date Documented Da te Episodic/Chronic Syncope (2 sources) Syncope; Translations: [Syncope and collapse] Onset: 09-15-2017 09-15-2017 Episodic Results Test Name Value Interpretation Reference Range Facility Urology Office/Clinic Noteon 07-19-2024 Urology Office/Clinic Note Urology Office/Clinic Note Chief Complaint f/u HPI Staff 68 year old male patient here to discuss his BPH with obstruction/lower urinary tract symptoms. 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 Previous Dx: urinary retention, Other obstructive and reflux uropathy *flomax 0.4 mg qd IPSS: `16 based on symptoms before cath Pt has catheter would like the bag changed today History of Present Illness Tests reviewed: UA I have reviewed the previous health record information and history for this patient from Dr. Donal Mcgarry. I have reviewed and verified the staff HPI to be accurate for this encounter. Review of Systems PHQ Score Initial Depression Screen Score: 0 SCORE ROS - Provider Constitutional: denies weight loss, denies hot flashes. Eyes: denies eye problems. Gastrointestinal: denies nausea, denies vomiting. Cardiovascular: denies chest pain or angina. Integumentary: no dryness Musculoskeletal: denies musculoskeletal symptoms. ENMT: denies otolaryngeal symptoms. Respiratory: no shortness of breath. Heme/Lymph: denies easy bleeding tendency, denies easy bruising tendency. Psychiatric: no confusion, no anxiety. Genitourinary: See HPI. Physical Exam Vitals & Measurements HR: 80(Peripheral) BP: 133/91 HT: 71 in HT: 180 cm WT: 80 kg WT: 176.37 lb BMI: 24.69 General Appearance: alert, no distress, well nourished, well developed male. Assessment/Plan Johnathan 68 year old male patient here to discuss his BPH with obstruction/lower urinary tract symptoms. 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 Patient is accompanied by daughter today. 1. Urinary retention (R33.9: Retention of urine, unspecified) Patient has had Arenas in since he has been int the hospital. Maintain Arenas until scope (see #2). 2. BPH with obstruction/lower urinary tract symptoms (N40.1: Benign prostatic hyperplasia with lower urinary tract symptoms) IPSS 35 - pt has arenas. No UA provided today. Denies any gross hematuria or dysuria at this time. Currently taking Flomax 0.4mg. Denies any bothersome SEs. We discussed UroLift vs TURP, the risks and benefits associated with both procedures. SEs were also discussed. Patient states he did not want to have a procedure done at this time, informed the patient that if he did not have the procedure he would have the arenas in lifetime. At this time patient understands and would like to move forward with Cysto. Then revisit Urolift after finding of the cysto. The risks and benefits for cystoscopy have been discussed. The risks include bleeding, infection, and irritation of the bladder and urinary channel, among others. The patient, after being informed of procedural details and after questions have been answered, wishes to proceed. Full informed consent has been obtained. Will order Local anesthesia. Daughter and patient wishes to have cath changed. Patient had cath changed today IO without complications. Follow up Schedule Cysto or sooner if needed. Pt understands and agrees with plan. 3. Prostate cancer screening (Z12.5: Encounter for screening for malignant neoplasm of prostate) None on Clinisync. Will check w PCP office. If they don't have any, will need to update (perhaps after arenas removed?) Patient is a 68-year-old male who has had multiple failed voiding trials and currently has a Arenas catheter in. Arenas catheter was exchanged today. I discussed with the patient that with the multiple failed voiding trial we will proceed with a cystoscopy, transrectal ultrasound for prostate sizing and based on findings determine if he would benefit from bladder outlet reduction procedure. Risk, benefits, alternatives were discussed in extensive detail with him and he will follow-up with such for the procedure. Follow-up With When Contact Information RUSTY MCCALL, DONAL, LANNY Additional Instructions: Follow up Schedule Cysto or sooner if needed Patient Education Acute Urinary Retention, Male I, Brennan Fish, personally scribed for Dr. Donal Mcgarry on 07/19/2024 13:57:33. . Portions of this record may have been created with voice recognition artificial intelligence software, specifically [employer], [employer] and or [employer]. Substitutions may have occurred due to the inherent limitations of voice recognition and artificial intelligence software. Documentation recorded by the nedraibBrennan fernandez, accurately reflects the services(s) I performed and decisions made by me. Authenticated by Dr. Mcgarry on 07/19/2024 14:24:47. Problem List/Past Medical History Ongoing Afib Arthritis BPH with obstruction/lower urinary tract symptoms Depression Heart disease Hypertension Liver disease Prostate cancer screening Stroke Urinary retention Historical No qualifying data Procedure/Surgical History None. Medications acetaminophen 325 mg Tab, Oral, q4hr apixaban 5 mg oral tablet, O (more content not included)... [facility] Comment on above: Result Comment: Elec tronically Signed By: DONAL MCGARRY MD\.br\Date and Time Signed: 07/19/24 14:25 EDT\.br\Electronically Co-Signed By: Brennan Fish\.br\Date and Time Co-Signed: 07/19/24 13:57 EDT Urology Office/Clinic Noteon 06-26-2024 Urology Office/Clinic Note Urology Office/Clinic Note Chief Complaint F/u to [facility] and [facility] HPI Staff New pt here for hospital f/u due to urinary retention. Never seen in our office before (verified on [employer]). [facility] ER 06/05/24 due to confusion/AMS and not feeling well. No evidence of UTI. Drug screen was positive for cannabinoids. 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 Found to have lactic acidosis causing a-fib and RVR. Was admitted to ICU. Then transferred to [facility]. -Catheter was placed 06/05/24 but I cannot find documentation of PVR prior or output when they put the cath in. -Cardiology Physician on admission 2.11 (typical looks in the mid 1s). Improved during hospital stay. -Abd US 06/05/24 showed dilated right renal pelvis and calyces. L side nl. -CT 06/07/24 showed simple 1.6cm LIP cyst. Extensive bilat perinephric edema. No collecting system dilation or evidence of ureteral calc. -Urine cx 06/07/24 neg. Blood cx neg x 2. Currently at [facility] but plan is for dc this Monday. Will be going home with his daughter. Pt on Flomax per ECF med list. Daughter not sure if this is a new med or he's been on it. Pt reports longstanding BPH sx including frequency, weak stream, nocturia (upwards of q1h at night), post-void dribbling. Daughter reports this is his second time having retention in the past year. Review of Systems PHQ Score Initial Depression Screen Score: 1 SCORE no fever, chills, malaise, myalgia. no rash/lesions. no chest pain, palpitations, or SOB. no abdominal pain, nausea, vomiting. Physical Exam Vitals & Measurements T: 37 ???C(Temporal Artery) HR: 70(Peripheral) RR: 16 BP: 131/90 HT: 71 in HT: 180 cm WT: 80 kg WT: 176.37 lb BMI: 24.69 General: nontoxic, NAD Mouth: moist mucosa Lungs: normal respiratory effort Cardio: regular rate, good distal perfusion Abdomen: nondistended, no suprapubic distention or tenderness, no CVA tenderness. Arenas draining clear yellow urine. No tension. Neurologic: Grossly normal Skin: No rashes or suspicious lesions Assessment/Plan 1. Urinary retention (R33.9: Retention of urine, unspecified) Second time in 1 yr. Discussed options: Void trial today. Maintain Arenas until scope (see #2). Risks/benefits of each option discussed at length. Since pt is being dc'd from ECF in a couple days, pt and daughter prefer safer option as they don't want him going back into retention. He would like to keep Arenas for now. Ordered: E&M of New Patient Moderate 45-59 Min 16790 2. BPH with obstruction/lower urinary tract symptoms (N40.1: Benign prostatic hyperplasia with lower urinary tract symptoms) Chronic. Unclear if has been on Flomax for a while or it's new. I would not increase his Flomax to 2 caps daily since he already has some unsteady gait/weakness. Discussed tx options for BPH. Will proceed w cysto to assess degree of obstruction. If significant, pt may require WARD procedure such as Rezum, Urolift, or TURP. Brochures provided. If no significant obstruction noted could proceed w void trial +/- Uros. The risks and benefits for cystoscopy have been discussed. The risks include bleeding, infection, and irritation of the bladder and urinary channel, among others. The patient, after being informed of procedural details and after questions have been answered, wishes to proceed. Full informed consent has been obtained. Will order Local anesthesia. Ordered: E&M of New Patient Moderate 45-59 Min 38804 3. Prostate cancer screening (Z12.5: Encounter for screening for malignant neoplasm of prostate) None on Clinisync. Will check w PCP office. If they don't have any, will need to update (perhaps after arenas removed?) Ordered: E&M of New Patient Moderate 45-59 Min 45748 Other obstructive and reflux uropathy (N13.8: Other obstructive and reflux uropathy) Follow-up With When Contact Information [facility] [place] [address] Business (1) Additional Instructions: our personnel scheduler will be contacting you for follow-up Patient Education Benign Prostatic Hyperplasia Problem List/Past Medical History Ongoing Afib Arthritis BPH with obstruction/lower urinary tract symptoms Depression Heart disease Hypertension Liver disease Prostate cancer screening Stroke Urinary retention Historical No qualifying data Procedure/Surgical History None. Medications acetaminophen 325 mg Tab, Oral, q4hr apixaban 5 mg oral tablet, Oral, BID atorvastatin 40 mg Tab, 40 mg= 1 tab(s) carvedilol 12.5 mg Tab, 12.5 mg= 1 tab(s) folic acid 1 mg Tab, 1 mg= 1 tab(s) furosemide 40 mg Tab, 40 mg= 1 tab(s) Potassium Chloride (Hrr-Cfeg-Ayz 10), Oral, BID tamsulosin 0.4 mg Cap, 0.4 mg= 1 cap(s) thiamine 100 mg Tab, Oral, Daily Allergies No Known Medication Allergies Social History Tobacco Never (less than 100 in lifetime) Tobacco Use:. Never Smokeless Tobacco Use:. Household to (more content not included)... [facility] Comment on above: Result Comment: Elec tronically Signed By: KIKI OLIVIER PA-C\.br\Date and Time Signed: 06/26/24 12:05 EST Ambulatory Visit Summaryon 0 06-25-2024 Ambulatory Visit Summary Ambulatory Visi t Summary JOHNATHAN RODNEY :1955 Visit Date:06/25/2024 Ambulatory Visit Instructions Your Care Team Attending Physician - KIKI OLIVIER PA-C Primary Care Physician - Ramon Sutherland MD This Is Your Medications List acetaminophen (acetaminophen 325 mg Tab) apixaban (apixaban 5 mg oral tablet) atorvastatin (atorvastatin 40 mg Tab) carvedilol (carvedilol 12.5 mg Tab) folic acid (folic acid 1 mg Tab) furosemide (furosemide 40 mg Tab) potassium chloride (Potassium Chloride (Llt-Ejyl-Mbx 10)) tamsulosin (tamsulosin 0.4 mg Cap) thiamine (thiamine 100 mg Tab) Procedures Performed None. Discharge Vitals Temperature (Temporal Artery) 37 ???C Heart Rate (Peripheral) 70 Respiratory Rate 16 Blood Pressure 131/90 Height 180 cm Height 71 in Weight 80 kg Weight 176.37 lb BMI 24.69 Medications What How Much When Instructions Unchanged acetaminophen (acetaminophen 325 mg Tab) By Mouth Every 4 hours Unchanged apixaban (apixaban 5 mg oral tablet) By Mouth 2 times a day Unchanged atorvastatin (atorvastatin 40 mg Tab) 1 Tablets Unchanged carvedilol (carvedilol 12.5 mg Tab) 1 Tablets Unchanged folic acid (folic acid 1 mg Tab) 1 Tablets Unchanged furosemide (furosemide 40 mg Tab) 1 Tablets Unchanged potassium chloride (Potassium Chloride (Jzp-Mhyk-Wei 10)) By Mouth 2 times a day Unchanged tamsulosin (tamsulosin 0.4 mg Cap) 1 Capsules Unchanged thiamine (thiamine 100 mg Tab) By Mouth Every day Allergies No Known Medication Allergies Problems Ongoing - Any problem that you are currently receiving treatment for. Afib Arthritis Depression Heart disease Hypertension Liver disease Stroke Patient Survey You may receive a survey via text or e-mail asking about your office visit. Please share your experience with us by completing your survey. We appreciate your feedback and thank you for choosing us for your care. [facility] CBC AND AUTO DIFFon 06-12-19 25 ABSOLUTE BASOPHIL 0.1 X10E9/L Normal 0.0-0.2 [facility] Comment on above: Performed By: #### 7 5241-0, 2-9, PINR, 36424-1, AHP, CMP, THYR, FEPR, CBCA, 63388-1, 78322-7, 1967-, 2283-8, 2275- #### [facility] ([id number]) [address], [address] [place] [address] ABSOLUTE NEUTROPHIL 3.4 X10E9/L Normal 1.5-6.6 [facility] Comment on above: Performed By: #### 7 5241-0, 2-9, PINR, 05619-5, AHP, CMP, THYR, FEPR, CBCA, 79273-1, 05909-2, 1967-, 2283-8, 2275- #### [facility] ([id number]) [address], [address] [place] [address] Basophils/100 WBC (Bld) 2.5 % Normal P [facility] Comment on above: Performed By: #### 7 5241-0, 2131-9, PINR, 76329-7, AHP, CMP, THYR, FEPR, CBCA, 34910-0, 23593-9, 1967-11, 2283-12, 2275-4 #### [facility] ([id number]) [address], [address] [place] [address] Eosinophils (Bld) [#/Vol] 0.2 10*3/uL Normal 0.0-0.4 [facility] Comment on above: Performed By: #### 7 5241-0, 9, PINR, 51842-5, AHP, CMP, THYR, FEPR, CBCA, , 91414-1, 1967-11, 2283-12, 2275- #### [facility] ([id number]) [address], [address] [place] [address] Eosinophils/100 WBC (Bld) 4.1 % Normal [facility] Comment on above: Performed By: #### 7 5241-0, 9, PINR, 03212-7, AHP, CMP, THYR, FEPR, CBCA, , 48646-7, 1967-11, 2283-12, 2275-4 #### [facility] ([id number]) [address], [address] [place] [address] Erythrocyte distribution width (RBC) [Ratio] 22.9 % High 11.5-15.0 [facility] Comment on above: Performed By: #### 7 5241-0, 2131-9, PINR, 46593-8, AHP, CMP, THYR, FEPR, CBCA, , 41240-2, 1967-11, 2283-12, 2275-4 #### [facility] ([id number]) [address], [address] [place] [address] FRAGMENT 1+ Abnormal NONE [facility] Comment on above: Performed By: #### 7 5241-0, 2131-9, PINR, 61207-2, AHP, CMP, THYR, FEPR, CBCA, 83653-9, 05995-4, 1967-11, 2283-12, 2275- #### [facility] ([id number]) [address], [address] [place] [address] Hematocrit (Bld) [Volume fraction] 31.1 % Low 39-49 [facility] Comment on above: Performed By: #### 7 5241-0, 9, PINR, 40515-2, AHP, CMP, THYR, FEPR, CBCA, 41370-3, 43646-3, 1967-11, 2283-12, 2275- #### [facility] ([id number]) [address], [address] [place] [address] Hemoglobin (Bld) [Mass/Vol] 9.9 g/dL Low 13.0-17. 0 [facility] Comment on above: Performed By: #### 7 5241-0, 9, PINR, 40219-8, AHP, CMP, THYR, FEPR, CBCA, 70412-2, 18527-8, 1967-11, 2283-12, 2275- #### [facility] ([id number]) [address], [address] [place] [address] Lymphocytes (Bld) [#/Vol] 0.6 10*3/uL Low 1.0-3.5 [facility] Comment on above: Performed By: #### 7 5241-0, 2131-9, PINR, 11624-3, AHP, CMP, THYR, FEPR, CBCA, 52819-8, 05568-7, 1967-11, 2283-12, 2275- #### [facility] ([id number]) [address], [address] [place] [address] Lymphocytes/100 WBC (Bld) 13.2 % Normal [facility] Comment on above: Performed By: #### 7 5241-0, 2131-9, PINR, 56572-8, AHP, CMP, THYR, FEPR, CBCA, 30600-7, 85793-8, 1967-11, 2283-12, 2275-08 #### [facility] ([id number]) [address], [address] [place] [address] MCH (RBC) [Entitic mass] 23.1 pg Low 27-34 [facility] Comment on above: Performed By: #### 7 5241-0, 9, PINR, 18319-2, AHP, CMP, THYR, FEPR, CBCA, 13137-4, 77328-0, 1967-11, 2283-12, 2275-08 #### [facility] ([id number]) [address], [address] [place] [address] MCHC (RBC) [Mass/Vol] 31.8 g/dL Low 32-36 [facility] Comment on above: Performed By: #### 7 5241-0, 9, PINR, 80572-5, AHP, CMP, THYR, FEPR, CBCA, , 77465-7, 1967-11, 2283-12, 2275-08 #### [facility] ([id number]) [address], [address] [place] [address] MCV (RBC) [Entitic vol] 73 fL Low 80-100 P [facility] Comment on above: Performed By: #### 7 5241-0, 9, PINR, 75195-8, AHP, CMP, THYR, FEPR, CBCA, 24671-0, 68467-5, 1967-11, 2283-12, 2275-08 #### [facility] ([id number]) [address], [address] [place] [address] Monocytes (Bld) [#/Vol] 0.4 10*3/uL Normal 0-0.9 [facility] Comment on above: Performed By: #### 7 5241-0, 2131-9, PINR, 13701-4, AHP, CMP, THYR, FEPR, CBCA, 08168-9, 61085-4, 1967-11, 2283-12, 2275-4 #### [facility] ([id number]) [address], [address] [place] [address] Monocytes/100 WBC (Bld) 8.5 % Normal [facility] Comment on above: Performed By: #### 7 5241-0, 2131-9, PINR, 33516-4, AHP, CMP, THYR, FEPR, CBCA, 40241-3, 67997-5, 1967-11, 2283-12, 2275- #### [facility] ([id number]) [address], [address] [place] [address] Neutrophils/100 WBC (Bld) 71.7 % Normal [facility] Comment on above: Performed By: #### 7 5241-0, 2131-9, PINR, 03108-8, AHP, CMP, THYR, FEPR, CBCA, 79657-9, 51300-4, 1967-11, 2283-12, 2275- #### [facility] ([id number]) [address], [address] [place] [address] OVALOCYTE 1+ Abnormal NONE [facility] Comment on above: Performed By: #### 7 5241-0, 2131-9, PINR, 17722-3, AHP, CMP, THYR, FEPR, CBCA, 38844-0, 65912-5, 1967-11, 2283-12, 2275- #### [facility] ([id number]) [address], [address] [place] [address] Platelet mean volume (Bld) [Entitic vol] 8.0 fL Normal 7-12 [facility] Comment on above: Performed By: #### 7 5241-0, 2131-9, PINR, 45857-1, AHP, CMP, THYR, FEPR, CBCA, 91574-4, 71277-7, 1967-11, 2283-12, 2275- #### [facility] ([id number]) [address], [address] [place] [address] Platelets (Bld) [#/Vol] 226 10*3/uL Normal 150-450 [facility] Comment on above: Performed By: #### 7 5241-0, 2131-9, PINR, 78043-7, AHP, CMP, THYR, FEPR, CBCA, 65403-0, 95380-6, 1967-11, 2283-12, 2275- #### [facility] ([id number]) [address], [address] [place] [address] POLYCHROMASIA 1+ Abnormal NONE [facility] Comment on above: Performed By: #### 7 5241-0, 2131-9, PINR, 14014-8, AHP, CMP, THYR, FEPR, CBCA, 48933-0, 09033-2, 1967-11, 2283-12, 2275- #### [facility] ([id number]) [address], [address] [place] [address] RBC COUNT 4.27 X10E12/L Normal 4.10-5.70 [facility] Comment on above: Performed By: #### 7 5241-0, 2131-9, PINR, 81980-4, AHP, CMP, THYR, FEPR, CBCA, 16387-7, 09078-5, 1967-11, 2283-12, 2275- #### [facility] ([id number]) [address], [address] [place] [address] TEARDROP 1+ Abnormal NONE [facility] Comment on above: Performed By: #### 7 5241-0, 9, PINR, 00592-5, AHP, CMP, THYR, FEPR, CBCA, 14233-0, 63948-3, 1967-11, 2283-12, 2275- #### [facility] ([id number]) [address], [address] [place] [address] WBC (Bld) [#/Vol] 4.7 10*3/uL Normal 4.0-11.0 [facility] Comment on above: Performed By: #### 7 5241-0, 9, PINR, 99625-7, AHP, CMP, THYR, FEPR, CBCA, , 15132-0, 1967-11, 2283-12, 2275-08 #### [facility] ([id number]) [address], [address] [place] [address] CBC auto differentialon Basophils (Bld) [#/Vol] 0.1 10*3/uL [facility] Basophils/100 WBC (Bld) 2.5 % [facility] Dacrocytes LM Ql (Bld) 1+ Abnormal NONE^NONE [facility] Eosinophils (Bld) [#/Vol] 0.2 10*3/uL [facility] Eosinophils/100 WBC (Bld) 4.1 % [facility] Erythrocyte distribution width (RBC) [Ratio] 22.9 % High 11.5 - 15.0 % [facility] Fragments LM Ql (Bld) 1+ Abnormal NONE^NONE [facility] Hematocrit (Bld) [Volume fraction] 31.1 % Low 39 - 49 % [facility] Hemoglobin (Bld) [Mass/Vol] 9.9 g/dL Low 13.0 - 17.0 g/dL [facility] Interpretation and review of laboratory results Abnormal [facility] Lymphocytes (Bld) [#/Vol] 0.6 10*3/uL Low [facility] Lymphocytes/100 WBC (Bld) 13.2 % [facility] MCH (RBC) [Entitic mass] 23.1 pg Low 27 - 34 pg [facility] MCHC (RBC) [Mass/Vol] 31.8 g/dL Low 32 - 3 6 g/dL [facility] MCV (RBC) [Entitic vol] 73 fL Low 80 - 100 fL [facility] Monocytes (Bld) [#/Vol] 0.4 10*3/uL [facility] Monocytes/100 WBC (Bld) 8.5 % P [facility] Neutrophils (Bld) [#/Vol] 3.4 10*3/uL [facility] Neutrophils/100 WBC (Bld) 71.7 % [facility] Ovalocytes LM Ql (Bld) 1+ Abnormal NONE^NONE [facility] Platelet mean volume (Bld) [Entitic vol] 8 fL 7 - 12 fL [facility] Platelets (Bld) [#/Vol] 226 10*3/uL [facility] Polychromasia LM Ql (Bld) 1+ Abnormal NONE^NONE [facility] RBC (Bld) [#/Vol] 4.27 10*6/uL [facility] WBC corrected for nucl RBC Auto (Bld) [#/Vol] 4.7 [facility] CBC AND AUTO DIFFon 06-11-19 25 ABSOLUTE BASOPHIL 0.1 X10E9/L Normal 0.0-0.2 [facility] Comment on above: Performed By: #### 7 5241-0, 2132-01, PINR, 88587-0, AHP, CMP, THYR, FEPR, CBCA, 09474-7, 10228-8, 1967-11, 2283-12, 2275- #### [facility] ([id number]) [address], [address] [place] [address] Basophils/100 WBC (Bld) 1.0 % Normal [facility] Comment on above: Performed By: #### 7 5241-0, 9, PINR, 89835-7, AHP, CMP, THYR, FEPR, CBCA, , 01309-8, 1967-11, 2283-12, 2275-08 #### [facility] ([id number]) [address], [address] [place] [address] Eosinophils (Bld) [#/Vol] 0.3 10*3/uL Normal 0.0-0.4 [facility] Comment on above: Performed By: #### 7 5241-0, 9, PINR, 79036-3, AHP, CMP, THYR, FEPR, CBCA, 91147-8, 20211-7, 1967-11, 2283-12, 2275-08 #### [facility] ([id number]) [address], [address] [place] [address] Eosinophils/100 WBC (Bld) 4.9 % Normal [facility] Comment on above: Performed By: #### 7 5241-0, 9, PINR, 69866-4, AHP, CMP, THYR, FEPR, CBCA, 91579-2, 66898-3, 1967-11, 2283-12, 2275-08 #### [facility] ([id number]) [address], [address] [place] [address] Erythrocyte distribution width (RBC) [Ratio] 23.5 % High 11.5-15.0 [facility] Comment on above: Performed By: #### 7 5241-0, 9, PINR, 75728-4, AHP, CMP, THYR, FEPR, CBCA, 37533-5, 11408-5, 1967-11, 2283-12, 2275-08 #### [facility] ([id number]) [address], [address] [place] [address] FRAGMENT 1+ Abnormal NONE [facility] Comment on above: Performed By: #### 7 5241-0, 9, PINR, 00819-9, AHP, CMP, THYR, FEPR, CBCA, 27807-7, 96889-7, 1967-11, 2283-12, 2275-08 #### [facility] ([id number]) [address], [address] [place] [address] Hematocrit (Bld) [Volume fraction] 32.3 % Low 39-49 [facility] Comment on above: Performed By: #### 7 5241-0, 2-9, PINR, 52553-4, AHP, CMP, THYR, FEPR, CBCA, 60067-7, 74716-7, 1967-11, 2283-12, 2275-08 #### [facility] ([id number]) [address], [address] [place] [address] Hemoglobin (Bld) [Mass/Vol] 10.0 g/dL Low 13.0-17. 0 [facility] Comment on above: Performed By: #### 7 5241-0, 2131-9, PINR, 68760-8, AHP, CMP, THYR, FEPR, CBCA, 01499-3, 41136-4, 1967-11, 2283-12, 2275-08 #### [facility] ([id number]) [address], [address] [place] [address] HYPOCHROMIA 1+ Abnormal NONE [facility] Comment on above: Performed By: #### 7 5241-0, 2-9, PINR, 43458-2, AHP, CMP, THYR, FEPR, CBCA, 68269-3, 32659-5, 1967-11, 2283-12, 2275-08 #### [facility] ([id number]) [address], [address] [place] [address] Lymphocytes (Bld) [#/Vol] 0.4 10*3/uL Low 1.0-3.5 [facility] Comment on above: Performed By: #### 7 5241-0, 2-9, PINR, 42725-3, AHP, CMP, THYR, FEPR, CBCA, 29029-0, 73502-3, 1967-11, 2283-12, 2275-08 #### [facility] ([id number]) [address] [facility], [address] [place] [address] Lymphocytes/100 WBC (Bld) 6.9 % Normal [facility] Comment on above: Performed By: #### 7 5241-0, 2131-9, PINR, 50855-6, AHP, CMP, THYR, FEPR, CBCA, 77642-3, 09661-3, 1967-11, 2283-12, 2275-08 #### [facility] ([id number]) [address] [facility], [address] [place] [address] MCH (RBC) [Entitic mass] 22.7 pg Low 27-34 [facility] Comment on above: Performed By: #### 7 5241-0, 9, PINR, 05488-3, AHP, CMP, THYR, FEPR, CBCA, 61377-4, 88421-9, 1967-11, 2283-12, 2275-08 #### [facility] ([id number]) [address] [facility], [address] [place] [address] MCHC (RBC) [Mass/Vol] 31.1 g/dL Low 32-36 [facility] Comment on above: Performed By: #### 7 5241-0, 9, PINR, 09144-7, AHP, CMP, THYR, FEPR, CBCA, 26078-4, 49497-3, 1967-11, 2283-12, 2275-08 #### [facility] ([id number]) [address] [facility], [address] [place] [address] MCV (RBC) [Entitic vol] 73 fL Low 80-100 P [facility] Comment on above: Performed By: #### 7 5241-0, 9, PINR, 19945-8, AHP, CMP, THYR, FEPR, CBCA, 32154-6, 39575-2, 1967-11, 2283-12, 2275-08 #### [facility] ([id number]) [address] [facility], [address] [place] [address] Monocytes (Bld) [#/Vol] 0.4 10*3/uL Normal 0-0.9 [facility] Comment on above: Performed By: #### 7 5241-0, 9, PINR, 28812-3, AHP, CMP, THYR, FEPR, CBCA, 51726-3, 22817-3, 1967-11, 2283-12, 2275-08 #### [facility] ([id number]) [address] [facility], [address] [place] [address] Monocytes/100 WBC (Bld) 7.8 % Normal P [facility] Comment on above: Performed By: #### 7 5241-0, 9, PINR, 39713-2, AHP, CMP, THYR, FEPR, CBCA, 74780-0, 07061-9, 1967-11, 2283-12, 2275-08 #### [facility] ([id number]) [address] [facility], [address] [place] [address] Neutrophils (Bld) [#/Vol] 4.5 10*3/uL Normal 1.5-6.6 [facility] Comment on above: Performed By: #### 7 5241-0, 9, PINR, 91977-4, AHP, CMP, THYR, FEPR, CBCA, 19611-5, 82114-6, 1967-11, 2283-12, 2275-08 #### [facility] ([id number]) [address] [facility], [address] [place] [address] OVALOCYTE 2+ Abnormal NONE [facility] Comment on above: Performed By: #### 7 5241-0, 2131-9, PINR, 87222-1, AHP, CMP, THYR, FEPR, CBCA, 28229-2, 45932-9, 1967-11, 2283-12, 2275-08 #### [facility] ([id number]) [address], [address] [place] [address] Platelet mean volume (Bld) [Entitic vol] 8.7 fL Normal 7-12 [facility] Comment on above: Performed By: #### 7 5241-0, 2131-9, PINR, 13015-5, AHP, CMP, THYR, FEPR, CBCA, 60986-6, 72056-0, 1967-11, 2283-12, 2275- #### [facility] ([id number]) [address], [address] [place] [address] Platelets (Bld) [#/Vol] 226 10*3/uL Normal 150-450 [facility] Comment on above: Performed By: #### 7 5241-0, 9, PINR, 37824-0, AHP, CMP, THYR, FEPR, CBCA, 25464-2, , 1967-11, 2283-12, 2275-08 #### [facility] ([id number]) [address], [address] [place] [address] POLYCHROMASIA 1+ Abnormal NONE [facility] Comment on above: Performed By: #### 7 5241-0, 9, PINR, 03396-1, AHP, CMP, THYR, FEPR, CBCA, 52885-6, 84975-1, 1967-11, 2283-12, 2275- #### [facility] ([id number]) [address], [address] [place] [address] RBC COUNT 4.42 X10E12/L Normal 4.10-5.70 [facility] Comment on above: Performed By: #### 7 5241-0, 9, PINR, 29400-1, AHP, CMP, THYR, FEPR, CBCA, 55288-7, 68402-5, 1967-11, 2283-12, 2275-08 #### [facility] ([id number]) [address] [facility], [address] [place] [address] SEG NEUTROPHIL 79.4 % Normal [facility] Comment on above: Performed By: #### 7 5241-0, 9, PINR, 08042-2, AHP, CMP, THYR, FEPR, CBCA, 41239-0, 23544-6, 1967-11, 2283-12, 2275-08 #### [facility] ([id number]) [address], [address] [place] [address] WBC (Bld) [#/Vol] 5.7 10*3/uL Normal 4.0-11.0 [facility] Comment on above: Performed By: #### 7 5241-0, 9, PINR, 01863-9, AHP, CMP, THYR, FEPR, CBCA, 44149-1, 78013-1, 1967-11, 2283-12, 2275-08 #### [facility] ([id number]) [address] [facility], [address] [place] [address] CBC auto differentialon Basophils (Bld) [#/Vol] 0.1 10*3/uL [facility] Basophils/100 WBC (Bld) 1 % [facility] Eosinophils (Bld) [#/Vol] 0.3 10*3/uL [facility] Eosinophils/100 WBC (Bld) 4.9 % [facility] Erythrocyte distribution width (RBC) [Ratio] 23.5 % High 11.5 - 15.0 % [facility] Fragments LM Ql (Bld) 1+ Abnormal NONE^NONE [facility] Hematocrit (Bld) [Volume fraction] 32.3 % Low 39 - 49 % [facility] Hemoglobin (Bld) [Mass/Vol] 10 g/dL Low 13.0 - 17.0 g/dL [facility] Hypochromia Ql (Bld) 1+ Abnormal NONE^NONE [facility] Interpretation and review of laboratory results Abnormal [facility] Lymphocytes (Bld) [#/Vol] 0.4 10*3/uL Low [facility] Lymphocytes/100 WBC (Bld) 6.9 % [facility] MCH (RBC) [Entitic mass] 22.7 pg Low 27 - 34 pg [facility] MCHC (RBC) [Mass/Vol] 31.1 g/dL Low 32 - 3 6 g/dL [facility] MCV (RBC) [Entitic vol] 73 fL Low 80 - 100 fL [facility] Monocytes (Bld) [#/Vol] 0.4 10*3/uL [facility] Monocytes/100 WBC (Bld) 7.8 % [facility] Neutrophils (Bld) [#/Vol] 4.5 10*3/uL [facility] Ovalocytes LM Ql (Bld) 2+ Abnormal NONE^NONE [facility] Platelet mean volume (Bld) [Entitic vol] 8.7 fL 7 - 12 fL [facility] Platelets (Bld) [#/Vol] 226 10*3/uL [facility] Polychromasia LM Ql (Bld) 1+ Abnormal NONE^NONE [facility] RBC (Bld) [#/Vol] 4.42 10*6/uL [facility] Segmented neutrophils/100 WBC (Bld) 79.4 % [facility] WBC corrected for nucl RBC Auto (Bld) [#/Vol] 5.7 [facility] COMPREHENSIVE METABOLIC PANE Erwin 06-11-2024 Albumin [Mass/Vol] 3.4 g/dL Normal 3.2-5.3 [facility] Comment on above: Performed By: #### 7 5241-0, 2132-9, PINR, 90104-2, AHP, CMP, THYR, FEPR, CBCA, 29004-3, 09654-0, 1968-7, 2284-8, 2276-4 #### [facility] ([id number]) [address] [facility], [address] [place] [address] ALP [Catalytic activity/Vol] 67 U/L Normal 39-130 [facility] Comment on above: Performed By: #### 7 5241-0, 2132-9, PINR, 97953-5, AHP, CMP, THYR, FEPR, CBCA, 86006-3, 74096-2, 1967-11, 2283-12, 2275- #### [facility] ([id number]) [address] [facility], [address] [place] [address] ALT [Catalytic activity/Vol] 21 U/L Normal 0-40 [facility] Comment on above: Performed By: #### 7 5241-0, 2-9, PINR, 81187-1, AHP, CMP, THYR, FEPR, CBCA, 33941-8, 10034-6, 1967-11, 2283-12, 2275- #### [facility] ([id number]) [address] [facility], [address] [place] [address] Anion gap [Moles/Vol] 10 mmol/L Normal 5-15 [facility] Comment on above: Performed By: #### 7 5241-0, 2131-9, PINR, 20531-0, AHP, CMP, THYR, FEPR, CBCA, 33786-2, 76924-6, 1967-11, 2283-12, 2275- #### [facility] ([id number]) [address] [facility], [address] [place] [address] AST [Catalytic activity/Vol] 28 U/L Normal 0-41 [facility] Comment on above: Performed By: #### 7 5241-0, 2131-9, PINR, 16095-8, AHP, CMP, THYR, FEPR, CBCA, 12008-6, 84465-3, 1967-11, 2283-12, 2275- #### [facility] ([id number]) [address], [address] [place] [address] Bilirubin [Mass/Vol] 0.7 mg/dL Normal 0.3-1.2 [facility] Comment on above: Performed By: #### 7 5241-0, 2131-9, PINR, 00073-3, AHP, CMP, THYR, FEPR, CBCA, 89013-1, 40702-7, 1967-11, 2283-12, 2275- #### [facility] ([id number]) [address], [address] [place] [address] Calcium [Mass/Vol] 8.3 mg/dL Low 8.5-10.5 [facility] Comment on above: Performed By: #### 7 5241-0, 2131-9, PINR, 56225-0, AHP, CMP, THYR, FEPR, CBCA, , 99647-0, 1967-11, 2283-12, 2275-08 #### [facility] ([id number]) [address], [address] [place] [address] Chloride [Moles/Vol] 105 mmol/L Normal 98-109 [facility] Comment on above: Performed By: #### 7 5241-0, 2131-9, PINR, 57228-2, AHP, CMP, THYR, FEPR, CBCA, 34515-6, 93541-8, 1967-11, 2283-12, 2275- #### [facility] ([id number]) [address], [address] [place] [address] CO2 [Moles/Vol] 26 mmol/L Normal 22-32 [facility] Comment on above: Performed By: #### 7 5241-0, 2131-9, PINR, 75973-4, AHP, CMP, THYR, FEPR, CBCA, 85087-7, 99237-4, 1967-11, 2283-12, 2275- #### [facility] ([id number]) [address], [address] [place] [address] Creatinine [Mass/Vol] 1.23 mg/dL Normal 0.60-1.30 [facility] Comment on above: Result Comment: METH OD TRACEABLE TO IDMS STANDARD Performed By: #### 7 5241-0, 2131-9, PINR, 85183-0, AHP, CMP, THYR, FEPR, CBCA, 40384-2, 27528-0, 1967-11, 2283-12, 2275- #### [facility] ([id number]) [address], [address] [place] [address] GFR/1.73 sq M.predicted among non-blacks MDRD (S/P/Bld) [Vol rate/Area] 64 mL/min/{1.73_m2} Normal >59 [facility] Comment on above: Result Comment: Reported eGFR is based on the CKD-EPI 2020 equation that does not use a race coefficient. Performed By: #### 7 5241-0, 9, PINR, 10824-3, AHP, CMP, THYR, FEPR, CBCA, 57571-0, 72829-0, 1967-11, 2283-12, 2275-08 #### [facility] ([id number]) [address], [address] [place] [address] Glucose [Mass/Vol] 100 mg/dL High 65-99 [facility] Comment on above: Performed By: #### 7 5241-0, 9, PINR, 98346-6, AHP, CMP, THYR, FEPR, CBCA, 69632-5, 10947-4, 1967-11, 2283-12, 2275- #### [facility] ([id number]) [address], [address] [place] [address] Potassium [Moles/Vol] 3.7 mmol/L Normal 3.5-5.0 [facility] Comment on above: Performed By: #### 7 5241-0, 2131-9, PINR, 62354-8, AHP, CMP, THYR, FEPR, CBCA, 58952-7, , 1967-11, 2283-12, 2275-4 #### [facility] ([id number]) [address] [place] [address], [address] [place] [address] Protein [Mass/Vol] 6.0 g/dL Normal 6.0-8.0 [facility] Comment on above: Performed By: #### 7 5241-0, 2131-9, PINR, 06441-1, AHP, CMP, THYR, FEPR, CBCA, 89489-1, 27192-3, 1967-11, 2283-12, 2275- #### [facility] ([id number]) [address] [place] [address], [address] [place] [address] Sodium [Moles/Vol] 141 mmol/L Normal 134-146 [facility] Comment on above: Performed By: #### 7 5241-0, 2131-9, PINR, 43752-0, AHP, CMP, THYR, FEPR, CBCA, 17889-2, 23443-5, 1967-11, 2283-12, 2275- #### [facility] ([id number]) [address] [place] [address], [address] [place] [address] Urea nitrogen [Mass/Vol] 27 mg/dL Normal 5-27 [facility] Comment on above: Performed By: #### 7 5241-0, 2131-9, PINR, 56778-8, AHP, CMP, THYR, FEPR, CBCA, 71914-0, 18880-1, 1967-11, 2283-12, 2275- #### [facility] ([id number]) [address] [place] [address], [address] [place] [address] Comprehensive metabolic pane erwin 06-11-2024 Albumin [Mass/Vol] 3.4 g/dL 3.2 - 5.3 g/dL [facility] ALP [Catalytic activity/Vol] 67 U/L 39 - 130 U/L [facility] ALT No additional P-5'-P [Catalytic activity/Vol] 21 U/L 0 - 40 U/L [facility] Anion gap [Moles/Vol] 10 mmol/L 5 - 15 mmol/L [facility] AST [Catalytic activity/Vol] 28 U/L 0 - 41 U/L [facility] Bilirubin [Mass/Vol] 0.7 mg/dL 0.3 - 1 .2 mg/dL [facility] Calcium [Mass/Vol] 8.3 mg/dL Low 8.5 - 10. 5 mg/dL [facility] Chloride [Moles/Vol] 105 mmol/L 98 - 10 9 mmol/L [facility] CO2 [Moles/Vol] 26 mmol/L 22 - 32 mmol/L [facility] Creatinine [Mass/Vol] 1.23 mg/dL 0.60 - 1.30 mg/dL [facility] Comment on above: METHOD TRACEABLE TO [facility] STANDARD eGFR (CKD-EPI)non-race dependent 64 - PINF [facility] Comment on above: Reported eGFR is based on the CKD-EPI 2020 equation that does not use a race coefficient. Glucose [Mass/Vol] 100 mg/dL High 65 - 99 mg/dL [facility] Interpretation and review of laboratory results Abnormal [facility] Potassium [Moles/Vol] 3.7 mmol/L 3.5 - 5.0 mmol/L [facility] Protein [Mass/Vol] 6 g/dL 6.0 - 8.0 g/dL [facility] Sodium [Moles/Vol] 141 mmol/L 134 - 146 mmol/L [facility] Urea nitrogen [Mass/Vol] 27 mg/dL 5 - 27 mg/dL [facility] HEMOGLOBINon 06-11-2024 Hemoglobin (Bld) [Mass/Vol] 10.4 g/dL Low 13.0-17. 0 [facility] Comment on above: Performed By: #### 7 5241-0, 6962-9, PINR, 03843-2, AHP, CMP, THYR, FEPR, CBCA, 81134-1, 25602-8, 1967-7, 2284-8, 2276-4 #### [facility] ([id number]) [address], [address] [place] [address] Hemoglobinon 06-11-2024 Hemoglobin (Bld) [Mass/Vol] 10.4 g/dL Low 13.0 - 17.0 g/dL [facility] Hemoglobin (Bld) [Mass/Vol]o n 06-11-2024 Interpretation and review of laboratory results Abnormal [facility] POTASSIUMon 06-11-2024 Potassium [Moles/Vol] 4.0 mmol/L Normal 3.5-5.0 [facility] Comment on above: Performed By: #### 7 5241-0, 9, PINR, 46581-8, AHP, CMP, THYR, FEPR, CBCA, 84839-5, 04530-1, 1967-, 2283-, 2275- #### [facility] ([id number]) [address], [address] [place] [address] Potassiumon 06-11-2024 Potassium [Moles/Vol] 4 mmol/L 3.5 - 5.0 mmol/L [facility] Potassium [Moles/Vol]on [facility] BASIC METABOLIC PANLon 06-10 Anion gap [Moles/Vol] 9 mmol/L Normal 5-15 [facility] Comment on above: Performed By: #### 7 5241-0, 9, PINR, 76327-3, AHP, CMP, THYR, FEPR, CBCA, 23180-5, 81035-7, 1967-11, 2283-, 2275-4 #### [facility] ([id number]) [address] [facility], [address] [place] [address] Calcium [Mass/Vol] 8.3 mg/dL Low 8.5-10.5 [facility] Comment on above: Performed By: #### 7 5241-0, 9, PINR, 39262-1, AHP, CMP, THYR, FEPR, CBCA, 41022-0, 49359-3, 1967-11, 2283-12, 2275-08 #### [facility] ([id number]) [address] [facility], [address] [place] [address] Chloride [Moles/Vol] 103 mmol/L Normal 98-109 [facility] Comment on above: Performed By: #### 7 5241-0, 2131-9, PINR, 28624-3, AHP, CMP, THYR, FEPR, CBCA, 68517-9, 15001-5, 1967-11, 2283-12, 2275-08 #### [facility] ([id number]) [address] [facility], [address] [place] [address] CO2 [Moles/Vol] 28 mmol/L Normal 22-32 [facility] Comment on above: Performed By: #### 7 5241-0, 2131-9, PINR, 04190-8, AHP, CMP, THYR, FEPR, CBCA, 96654-5, 11158-7, 1967-11, 2283-12, 2275-08 #### [facility] ([id number]) [address] [facility], [address] [place] [address] Creatinine [Mass/Vol] 1.28 mg/dL Normal 0.60-1.30 [facility] Comment on above: Result Comment: METH OD TRACEABLE TO IDMS STANDARD Performed By: #### 7 5241-0, 9, PINR, 06319-5, AHP, CMP, THYR, FEPR, CBCA, 52310-6, , 1967-11, 2283-12, 2275-08 #### [facility] ([id number]) [address] [facility], [address] [place] [address] GFR/1.73 sq M.predicted among non-blacks MDRD (S/P/Bld) [Vol rate/Area] 61 mL/min/{1.73_m2} Normal >59 [facility] Comment on above: Result Comment: Reported eGFR is based on the CKD-EPI 2020 equation that does not use a race coefficient. Performed By: #### 7 5241-0, 2131-9, PINR, 34250-4, AHP, CMP, THYR, FEPR, CBCA, 10106-1, 49439-5, 1967-11, 2283-12, 2275-08 #### [facility] ([id number]) [address], [address] [place] [address] Glucose [Mass/Vol] 103 mg/dL High 65-99 [facility] Comment on above: Performed By: #### 7 5241-0, 2131-9, PINR, 12537-3, AHP, CMP, THYR, FEPR, CBCA, 29050-5, 74551-2, 1967-11, 2283-12, 2275-08 #### [facility] ([id number]) [address], [address] [place] [address] Potassium [Moles/Vol] 3.4 mmol/L Low 3.5-5.0 [facility] Comment on above: Performed By: #### 7 5241-0, 2131-9, PINR, 61573-8, AHP, CMP, THYR, FEPR, CBCA, 82478-3, 11078-1, 1967-11, 2283-12, 2275-08 #### [facility] ([id number]) [address], [address] [place] [address] Sodium [Moles/Vol] 140 mmol/L Normal 134-146 [facility] Comment on above: Performed By: #### 7 5241-0, 2131-9, PINR, 84352-3, AHP, CMP, THYR, FEPR, CBCA, 40357-9, 84195-5, 1967-11, 2283-12, 2275-08 #### [facility] ([id number]) [address], [address] [place] [address] Urea nitrogen [Mass/Vol] 22 mg/dL Normal 5-27 [facility] Comment on above: Performed By: #### 7 5241-0, 9, PINR, 65601-2, AHP, CMP, THYR, FEPR, CBCA, 50821-1, 85610-3, 1967-11, 2283-12, 2275- #### [facility] ([id number]) [address] [facility], [address] [place] [address] Basic Metabolic Panelon Anion gap [Moles/Vol] 9 mmol/L 5 - 15 mmol/L [facility] Calcium [Mass/Vol] 8.3 mg/dL Low 8.5 - 10. 5 mg/dL [facility] Chloride [Moles/Vol] 103 mmol/L 98 - 10 9 mmol/L [facility] CO2 [Moles/Vol] 28 mmol/L 22 - 32 mmol/L [facility] Creatinine [Mass/Vol] 1.28 mg/dL 0.60 - 1.30 mg/dL [facility] Comment on above: METHOD TRACEABLE TO [employer] STANDARD eGFR (CKD-EPI)non-race dependent 61 - PINF [facility] Comment on above: Reported eGFR is based on the CKD-EPI 2020 equation that does not use a race coefficient. Glucose [Mass/Vol] 103 mg/dL High 65 - 99 mg/dL [facility] Interpretation and review of laboratory results Abnormal [facility] Potassium [Moles/Vol] 3.4 mmol/L Low 3.5 - 5.0 mmol/L [facility] Sodium [Moles/Vol] 140 mmol/L 134 - 146 mmol/L [facility] Urea nitrogen [Mass/Vol] 22 mg/dL 5 - 27 mg/dL [facility] CBC AND AUTO DIFFon 06-10-19 25 ACANTHOCYTE 2+ Abnormal NONE [facility] Comment on above: Performed By: #### 7 5241-0, 9, PINR, 03545-3, AHP, CMP, THYR, FEPR, CBCA, 63657-2, 68377-2, 1967-11, 2283-12, 2275-08 #### [facility] ([id number]) [address], [address] [place] [address] Anisocytosis Ql (Bld) 2+ Abnormal NONE [facility] Comment on above: Performed By: #### 7 5241-0, 9, PINR, 06570-7, AHP, CMP, THYR, FEPR, CBCA, 48619-3, 93021-2, 1967-11, 2283-12, 2275- #### [facility] ([id number]) [address] [facility], [address] [place] [address] [place] 1+ Abnormal NONE [facility] Comment on above: Performed By: #### 7 5241-0, 9, PINR, 52593-4, AHP, CMP, THYR, FEPR, CBCA, 98606-5, 98189-6, 1967-11, 2283-12, 2275- #### [facility] ([id number]) [address], [address] [place] [address] Eosinophils (Bld) [#/Vol] 0.2 10*3/uL Normal 0.0-0.4 [facility] Comment on above: Performed By: #### 7 5241-0, 9, PINR, 95289-8, AHP, CMP, THYR, FEPR, CBCA, 91828-3, 69848-4, 1967-11, 2283-12, 2275- #### [facility] ([id number]) [address], [address] [place] [address] Eosinophils/100 WBC (Bld) 3.0 % Normal [facility] Comment on above: Performed By: #### 7 5241-0, 9, PINR, 06207-5, AHP, CMP, THYR, FEPR, CBCA, 62762-0, 05874-6, 1967-11, 2283-12, 2275-4 #### [facility] ([id number]) [address], [address] [place] [address] Erythrocyte distribution width (RBC) [Ratio] 23.3 % High 11.5-15.0 [facility] Comment on above: Performed By: #### 7 5241-0, 9, PINR, 92226-2, AHP, CMP, THYR, FEPR, CBCA, 48020-2, 95231-3, 1967-11, 2283-12, 2275- #### [facility] ([id number]) [address], [address] [place] [address] FRAGMENT 1+ Abnormal NONE [facility] Comment on above: Performed By: #### 7 5241-0, 9, PINR, 36006-8, AHP, CMP, THYR, FEPR, CBCA, 55667-8, 78653-6, 1967-11, 2283-12, 2275- #### [facility] ([id number]) [address], [address] [place] [address] Hematocrit (Bld) [Volume fraction] 31.8 % Low 39-49 [facility] Comment on above: Performed By: #### 7 5241-0, 9, PINR, 63054-9, AHP, CMP, THYR, FEPR, CBCA, 12230-1, 63702-0, 1967-11, 2283-12, 2275- #### [facility] ([id number]) [address], [address] [place] [address] Hemoglobin (Bld) [Mass/Vol] 9.9 g/dL Low 13.0-17. 0 [facility] Comment on above: Performed By: #### 7 5241-0, 9, PINR, 74185-8, AHP, CMP, THYR, FEPR, CBCA, 52197-1, 61054-1, 1967-11, 2283-12, 2275- #### [facility] ([id number]) [address], [address] [place] [address] HYPOCHROMIA 1+ Abnormal NONE [facility] Comment on above: Performed By: #### 7 5241-0, 9, PINR, 82159-2, AHP, CMP, THYR, FEPR, CBCA, 52888-8, 09922-0, 1967-11, 2283-12, 2275- #### [facility] ([id number]) [address], [address] [place] [address] Lymphocytes (Bld) [#/Vol] 0.6 10*3/uL Low 1.0-3.5 [facility] Comment on above: Performed By: #### 7 5241-0, 2132-01, PINR, 74934-0, AHP, CMP, THYR, FEPR, CBCA, 55952-9, 60439-6, 1967-11, 2283-12, 2275- #### [facility] ([id number]) [address], [address] [place] [address] Lymphocytes/100 WBC (Bld) 9.0 % Normal [facility] Comment on above: Performed By: #### 7 5241-0, 2132-01, PINR, 04133-3, AHP, CMP, THYR, FEPR, CBCA, 52174-2, 65161-2, 1967-11, 2283-12, 2275- #### [facility] ([id number]) [address], [address] [place] [address] MCH (RBC) [Entitic mass] 22.6 pg Low 27-34 [facility] Comment on above: Performed By: #### 7 5241-0, 9, PINR, 13986-1, AHP, CMP, THYR, FEPR, CBCA, 15898-4, 18590-2, 1967-11, 2283-12, 2275- #### [facility] ([id number]) [address], [address] [place] [address] MCHC (RBC) [Mass/Vol] 31.1 g/dL Low 32-36 Pro [facility] Comment on above: Performed By: #### 7 5241-0, 2131-9, PINR, 49400-4, AHP, CMP, THYR, FEPR, CBCA, 59209-6, 34232-7, 1967-11, 2283-12, 2275- #### [facility] ([id number]) [address], [address] [place] [address] MCV (RBC) [Entitic vol] 73 fL Low 80-100 P [facility] Comment on above: Performed By: #### 7 5241-0, 9, PINR, 50823-6, AHP, CMP, THYR, FEPR, CBCA, 15830-2, 35283-6, 1967-11, 2283-12, 2275- #### [facility] ([id number]) [address], [address] [place] [address] Monocytes (Bld) [#/Vol] 0.5 10*3/uL Normal 0-0.9 [facility] Comment on above: Performed By: #### 7 5241-0, 9, PINR, 28568-6, AHP, CMP, THYR, FEPR, CBCA, 15263-2, 68294-3, 1967-11, 2283-12, 2275- #### [facility] ([id number]) [address], [address] [place] [address] Monocytes/100 WBC (Bld) 8.0 % Normal P [facility] Comment on above: Performed By: #### 7 5241-0, 9, PINR, 92885-5, AHP, CMP, THYR, FEPR, CBCA, 97050-5, 18745-9, 1967-11, 2283-12, 2275- #### [facility] ([id number]) [address] [facility], [address] [place] [address] Neutrophils (Bld) [#/Vol] 5.4 10*3/uL Normal 1.5-6.6 [facility] Comment on above: Performed By: #### 7 5241-0, 9, PINR, 43499-2, AHP, CMP, THYR, FEPR, CBCA, 78993-1, 54122-0, 1967-11, 2283-12, 2275- #### [facility] ([id number]) [address] [facility], [address] [place] [address] OVALOCYTE 2+ Abnormal NONE [facility] Comment on above: Performed By: #### 7 5241-0, 9, PINR, 01905-9, AHP, CMP, THYR, FEPR, CBCA, 79812-4, 41633-8, 1967-11, 2283-12, 2275- #### [facility] ([id number]) [address] [facility], [address] [place] [address] Platelet mean volume (Bld) [Entitic vol] 8.7 fL Normal 7-12 [facility] Comment on above: Performed By: #### 7 5241-0, 9, PINR, 55683-2, AHP, CMP, THYR, FEPR, CBCA, 05152-7, 70478-6, 1967-11, 2283-12, 2275- #### [facility] ([id number]) [address] [facility], [address] [place] [address] Platelets (Bld) [#/Vol] 243 10*3/uL Normal 150-450 [facility] Comment on above: Performed By: #### 7 5241-0, 9, PINR, 10671-0, AHP, CMP, THYR, FEPR, CBCA, 44270-3, 06155-6, 1967-11, 2283-12, 2275- #### [facility] ([id number]) [address] [facility], [address] [place] [address] RBC COUNT 4.37 X10E12/L Normal 4.10-5.70 [facility] Comment on above: Performed By: #### 7 5241-0, 9, PINR, 83908-6, AHP, CMP, THYR, FEPR, CBCA, 94914-2, 72907-4, 1967-11, 2283-12, 2275-4 #### [facility] ([id number]) [address] [place] [address], [address] [place] [address] SEG NEUTROPHIL 80.0 % Normal [facility] Comment on above: Performed By: #### 7 5241-0, 9, PINR, 84128-0, AHP, CMP, THYR, FEPR, CBCA, 09619-4, 23635-6, 1967-11, 2283-12, 2275-4 #### [facility] ([id number]) [address] [place] [address], [address] [place] [address] WBC (Bld) [#/Vol] 6.7 10*3/uL Normal 4.0-11.0 [facility] Comment on above: Performed By: #### 7 5241-0, 9, PINR, 42755-3, AHP, CMP, THYR, FEPR, CBCA, 69458-1, 06615-8, 1967-11, 2283-12, 2275-4 #### [facility] ([id number]) [address] [facility], [address] [place] [address] CBC auto differentialon 02-0 Acanthocytes LM Ql (Bld) 2+ Abnormal NONE^NONE [facility] Anisocytosis Ql (Bld) 2+ Abnormal NONE^NONE [facility] Saleem cells LM Ql (Bld) 1+ Abnormal NONE^NONE [facility] Eosinophils (Bld) [#/Vol] 0.2 10*3/uL [facility] Eosinophils/100 WBC (Bld) 3 % [facility] Erythrocyte distribution width (RBC) [Ratio] 23.3 % High 11.5 - 15.0 % [facility] Fragments LM Ql (Bld) 1+ Abnormal NONE^NONE [facility] Hematocrit (Bld) [Volume fraction] 31.8 % Low 39 - 49 % [facility] Hemoglobin (Bld) [Mass/Vol] 9.9 g/dL Low 13.0 - 17.0 g/dL [facility] Hypochromia Ql (Bld) 1+ Abnormal NONE^NONE [facility] Interpretation and review of laboratory results Abnormal [facility] Lymphocytes (Bld) [#/Vol] 0.6 10*3/uL Low [facility] Lymphocytes/100 WBC (Bld) 9 % [facility] MCH (RBC) [Entitic mass] 22.6 pg Low 27 - 34 pg [facility] MCHC (RBC) [Mass/Vol] 31.1 g/dL Low 32 - 3 6 g/dL [facility] MCV (RBC) [Entitic vol] 73 fL Low 80 - 100 fL [facility] Monocytes (Bld) [#/Vol] 0.5 10*3/uL [facility] Monocytes/100 WBC (Bld) 8 % [facility] Neutrophils (Bld) [#/Vol] 5.4 10*3/uL [facility] Ovalocytes LM Ql (Bld) 2+ Abnormal NONE^NONE [facility] Platelet mean volume (Bld) [Entitic vol] 8.7 fL 7 - 12 fL [facility] Platelets (Bld) [#/Vol] 243 10*3/uL [facility] RBC (Bld) [#/Vol] 4.37 10*6/uL [facility] Segmented neutrophils/100 WBC (Bld) 80 % [facility] WBC corrected for nucl RBC Auto (Bld) [#/Vol] 6.7 [facility] LIVER PANELon 06-10-2024 Albumin [Mass/Vol] 3.5 g/dL Normal 3.2-5.3 [facility] Comment on above: Performed By: #### 7 5241-0, 2132-9, PINR, 21112-7, AHP, CMP, THYR, FEPR, CBCA, 37110-1, 89723-3, 1967-11, 2283-12, 2275- #### [facility] ([id number]) [facility] [facility], [address] [place] [address] ALP [Catalytic activity/Vol] 64 U/L Normal 39-130 [facility] Comment on above: Performed By: #### 7 5241-0, 9, PINR, 62636-8, AHP, CMP, THYR, FEPR, CBCA, 72396-2, 07693-1, 1967-11, 2283-12, 2275- #### [facility] ([id number]) [address] [place] [address], [address] [place] [address] ALT [Catalytic activity/Vol] 19 U/L Normal 0-40 [facility] Comment on above: Performed By: #### 7 5241-0, 9, PINR, 98313-7, AHP, CMP, THYR, FEPR, CBCA, 32109-5, 41639-9, 1967-11, 2283-12, 2275- #### [facility] ([id number]) [address] [place] [address], [address] [place] [address] AST [Catalytic activity/Vol] 25 U/L Normal 0-41 [facility] Comment on above: Performed By: #### 7 5241-0, 9, PINR, 94922-8, AHP, CMP, THYR, FEPR, CBCA, 48376-3, 98660-6, 1967-11, 2283-12, 2275- #### [facility] ([id number]) [address] [place] [address], [address] [place] [address] Bilirubin [Mass/Vol] 0.8 mg/dL Normal 0.3-1.2 [facility] Comment on above: Performed By: #### 7 5241-0, 2132-9, PINR, 93517-2, AHP, CMP, THYR, FEPR, CBCA, 76357-8, 52736-8, 1967-11, 2283-12, 2275- #### [facility] ([id number]) [address] [place] [address], [address] [place] [address] Bilirubin.direct [Mass/Vol] 0.4 mg/dL Normal 0.0-0.4 [facility] Comment on above: Performed By: #### 7 5241-0, 2131-9, PINR, 27761-2, AHP, CMP, THYR, FEPR, CBCA, 30801-8, 12612-7, 1967-11, 2283-12, 2275- #### [facility] ([id number]) [facility], [address] [place] [address] Protein [Mass/Vol] 5.8 g/dL Low 6.0-8.0 [facility] Comment on above: Performed By: #### 7 5241-0, 9, PINR, 15991-3, AHP, CMP, THYR, FEPR, CBCA, 19205-4, 54990-6, 1967-11, 2283-12, 2275- #### [facility] ([id number]) [facility], [address] [place] [address] Liver panelon 06-10-2024 Albumin [Mass/Vol] 3.5 g/dL 3.2 - 5.3 g/dL [facility] ALP [Catalytic activity/Vol] 64 U/L 39 - 130 U/L [facility] ALT No additional P-5'-P [Catalytic activity/Vol] 19 U/L 0 - 40 U/L [facility] AST [Catalytic activity/Vol] 25 U/L 0 - 41 U/L [facility] Bilirubin [Mass/Vol] 0.8 mg/dL 0.3 - 1 .2 mg/dL [facility] Bilirubin.direct [Mass/Vol] 0.4 mg/dL 0.0 - 0.4 mg/dL [facility] Interpretation and review of laboratory results Abnormal [facility] Protein [Mass/Vol] 5.8 g/dL Low 6.0 - 8.0 g/dL [facility] MR BRAIN W WO CONTon 025 MR BRAIN W WO CONT MR BRAIN W WO CONT EXAM:MR BRAIN W WO CONT INDICATION: Mental status change, unknown cause COMPARISON: None TECHNIQUE: Multiplanar multisequence pre and post contrast MR sequences through the head/brain. 12.5 mL ProHance BRAIN FINDINGS: Motion degraded study, most notably postcontrast T1 sequences Brain Parenchyma: Questionable punctate focus of diffusion hyperintense signal within the ventral dexter best appreciated on 8:37, this is favored to be artifactual as a correlate is not identified on additional sequences. No acute hemorrhage, cerebral edema, or acute infarction. No mass, mass effect, or midline shift. Encephalomalacia right medial occipital lobe. Small volume encephalomalacia right medial perirolandic region. Periventricular subcortical T2/FLAIR signal hyperintensities likely related to chronic microangiopathic change. Ventricles and Sulci: Generalized parenchymal atrophy. Extra-Axial Spaces: No extra-axial fluid collection. Intracranial Flow-Voids: Arterial and venous sinus flow voids appear normal. Orbits: Normal Paranasal Sinuses: Mild mucosal thickening Mastoid Air Cells: Clear Cranium: Normal Extracranial Soft Tissues: Normal IMPRESSION: No definite evidence of acute or subacute intracranial abnormalities within the resolution of the motion degraded study. There is a questionable punctate focus of diffusion signal within the ventral dexter which is favored to be artifactual as a correlate is not identified on additional sequences. 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 Correlate with symptoms. Sequelae of prior right DRYWALL TAPER territory ischemia 27 Finalized by Zac Lucia on 06/10/2024 7:38 AM Normal [facility] MR Brain WO and W contrast I Von 06-10-2024 EXAM:MR BRAIN W WO CONT INDICATION: Mental status change, unknown cause COMPARISON: None TECHNIQUE: Multiplanar multisequence pre and post contrast MR sequences through the head/brain. 12.5 mL ProHance BRAIN FINDINGS: Motion degraded study, most notably postcontrast T1 sequences Brain Parenchyma: Questionable punctate focus of diffusion hyperintense signal within the ventral dexter best appreciated on 8:37, this is favored to be artifactual as a correlate is not identified on additional sequences. No acute hemorrhage, cerebral edema, or acute infarction. No mass, mass effect, or midline shift. Encephalomalacia right medial occipital lobe. Small volume encephalomalacia right medial perirolandic region. Periventricular subcortical T2/FLAIR signal hyperintensities likely related to chronic microangiopathic change. Ventricles and Sulci: Generalized parenchymal atrophy. Extra-Axial Spaces: No extra-axial fluid collection. Intracranial Flow-Voids: Arterial and venous sinus flow voids appear normal. Orbits: Normal Paranasal Sinuses: Mild mucosal thickening Mastoid Air Cells: Clear Cranium: Normal Extracranial Soft Tissues: Normal IMPRESSION: No definite evidence of acute or subacute intracranial abnormalities within the resolution of the motion degraded study. There is a questionable punctate focus of diffusion signal within the ventral dexter which is favored to be artifactual as a correlate is not identified on additional sequences. 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 Correlate with symptoms. Sequelae of prior right DRYWALL TAPER territory ischemia 27 Finalized by Zac Lucia on 06/10/2024 7:38 AM [facility] Zac Lucia MD - 06/10/2024 EXAM:MR BRAIN W WO CONT INDICATION: Mental status change, unknown cause COMPARISON: None TECHNIQUE: Multiplanar multisequence pre and post contrast MR sequences through the head/brain. 12.5 mL ProHance BRAIN FINDINGS: Motion degraded study, most notably postcontrast T1 sequences Brain Parenchyma: Questionable punctate focus of diffusion hyperintense signal within the ventral dexter best appreciated on 8:37, this is favored to be artifactual as a correlate is not identified on additional sequences. No acute hemorrhage, cerebral edema, or acute infarction. No mass, mass effect, or midline shift. Encephalomalacia right medial occipital lobe. Small volume encephalomalacia right medial perirolandic region. Periventricular subcortical T2/FLAIR signal hyperintensities likely related to chronic microangiopathic change. Ventricles and Sulci: Generalized parenchymal atrophy. Extra-Axial Spaces: No extra-axial fluid collection. Intracranial Flow-Voids: Arterial and venous sinus flow voids appear normal. Orbits: Normal Paranasal Sinuses: Mild mucosal thickening Mastoid Air Cells: Clear Cranium: Normal Extracranial Soft Tissues: Normal IMPRESSION: No definite evidence of acute or subacute intracranial abnormalities within the resolution of the motion degraded study. There is a questionable punctate focus of diffusion signal within the ventral dexter which is favored to be artifactual as a correlate is not identified on additional sequences. 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 Correlate with symptoms. 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 3D reconstructions were performed to evaluate vascular anatomy. FINDINGS: VASCULATURE FINDINGS: Intracranial Intracranial ICAs: Mild atherosclerosis of the bilateral carotids. No significant stenosis. Mild asymmetric caliber of the carotids in which the right is mildly larger than the left. MCAs: Mild stenosis proximal to mid right M1 segment. Symmetric distal arborization of the bilateral MCA distributions ACAs: Normal bilaterally. AComm: Normal P-Comms: Visualized bilaterally. Vertebral arteries: Left side dominant. Diminutive right vertebral artery. No appreciable flow related enhancement within the proximal V4 segment possibly due to flow dynamics and dldb-sg-bujfuk technique as there appears to be normal contrast enhancement within the V4 segment on the MRA of the neck Basilar artery: Normal. senior adults director: The left DRYWALL TAPER is normal. Diminished flow related enhancement within the distal right DRYWALL TAPER distribution likely sequelae of prior right DRYWALL TAPER infarct. IMPRESSION: 1. Diminished flow related signal within the right DRYWALL TAPER is likely chronic and related to known right chronic occipital infarct/encephalom alacia. 2. Diminished flow related enhancement within the proximal right vertebral artery is likely due to flow dynamics and xrxt-eg-gumdhd technique is there is normal-appearing enhancement on the postcontrast MRA of the neck. 3. Otherwise, no high-grade stenosis, occlusion, or evidence of sizable aneurysm. 27 Finalized by Zac Lucia on 06/10/2024 9:32 AM Normal [facility] MR MRA NECK W WO CONTon MR MRA NECK W WO CONT MR MRA NECK W WO CONT EXAM: MR MRA NECK W WO CONT INDICATION: Stroke, follow up COMPARISONS: None TECHNIQUE/PROTOCOL : Dynamic contrast enhanced neck MRA performed. 3D reconstructions were performed to evaluate vascular anatomy. All internal carotid measurements were made according to the NASCET criteria. CONTRAST: 12.5mL ProHance IV. FINDINGS: Normal triple vessel takeoff of the aorta. No significant narrowing of the origins of the great vessels. Common carotids are patent bilaterally. Moderate irregularity of the bilateral carotid bulbs contributes to approximately 25% stenosis of the proximal bilateral ICAs. The remainder of the ICAs are patent bilaterally. Left side dominant vertebral artery. Diminutive right vertebral artery. No high-grade stenosis. No significant soft tissue abnormalities of the neck IMPRESSION: Mild atherosclerosis of the bilateral carotid bulbs 2 views to no more than mild stenosis of the origins of the ICAs. Otherwise, no high-grade stenosis, occlusion, or evidence of acute vascular injury. 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 3D reconstructions were performed to evaluate vascular anatomy. FINDINGS: VASCULATURE FINDINGS: Intracranial Intracranial ICAs: Mild atherosclerosis of the bilateral carotids. No significant stenosis. Mild asymmetric caliber of the carotids in which the right is mildly larger than the left. MCAs: Mild stenosis proximal to mid right M1 segment. Symmetric distal arborization of the bilateral MCA distributions ACAs: Normal bilaterally. AComm: Normal P-Comms: Visualized bilaterally. Vertebral arteries: Left side dominant. Diminutive right vertebral artery. No appreciable flow related enhancement within the proximal V4 segment possibly due to flow dynamics and pscv-uz-xztzhv technique as there appears to be normal contrast enhancement within the V4 segment on the MRA of the neck Basilar artery: Normal. senior adults director: The left DRYWALL TAPER is normal. Diminished flow related enhancement within the distal right DRYWALL TAPER distribution likely sequelae of prior right DRYWALL TAPER infarct. IMPRESSION: 1. Diminished flow related signal within the right DRYWALL TAPER is likely chronic and related to known right chronic occipital infarct/encephalom alacia. 2. Diminished flow related enhancement within the proximal right vertebral artery is likely due to flow dynamics and xmnp-is-wfzlba technique is there is normal-appearing enhancement on the postcontrast MRA of the neck. 3. Otherwise, no high-grade stenosis, occlusion, or evidence of sizable aneurysm. 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 3D reconstructions were performed to evaluate vascular anatomy. FINDINGS: VASCULATURE FINDINGS: Intracranial Intracranial ICAs: Mild atherosclerosis of the bilateral carotids. No significant stenosis. Mild asymmetric caliber of the carotids in which the right is mildly larger than the left. MCAs: Mild stenosis proximal to mid right M1 segment. Symmetric distal arborization of the bilateral MCA distributions ACAs: Normal bilaterally. AComm: Normal P-Comms: Visualized bilaterally. Vertebral arteries: Left side dominant. Diminutive right vertebral artery. No appreciable flow related enhancement within the proximal V4 segment possibly due to flow dynamics and gkgr-jh-zidbnu technique as there appears to be normal contrast enhancement within the V4 segment on the MRA of the neck Basilar artery: Normal. senior adults director: The left DRYWALL TAPER is normal. Diminished flow related enhancement within the distal right DRYWALL TAPER distribution likely sequelae of prior right DRYWALL TAPER infarct. IMPRESSION: 1. Diminished flow related signal within the right DRYWALL TAPER is likely chronic and related to known right chronic occipital infarct/encephalom alacia. 2. Diminished flow related enhancement within the proximal right vertebral artery is likely due to flow dynamics and saog-vh-eircgi technique is there is normal-appearing enhancement on the postcontrast MRA of the neck. 3. Otherwise, no high-grade stenosis, occlusion, or evidence of sizable aneurysm. 27 Finalized by Zac Lucia on 06/10/2024 9:[address] [email or web address] [employer] [facility] Radiology Study observation (narrative) [facility] MRA Neck vessels WO and W co ntrast Dionisio 06-10-2024 EXAM: MR MRA NECK W WO CONT INDICATION: Stroke, follow up COMPARISONS: None TECHNIQUE/PROTOCOL : Dynamic contrast enhanced neck MRA performed. 3D reconstructions were performed to evaluate vascular anatomy. All internal carotid measurements were made according to the NASCET criteria. CONTRAST: 12.5mL ProHance IV. FINDINGS: Normal triple vessel takeoff of the aorta. No significant narrowing of the origins of the great vessels. Common carotids are patent bilaterally. Moderate irregularity of the bilateral carotid bulbs contributes to approximately 25% stenosis of the proximal bilateral ICAs. The remainder of the ICAs are patent bilaterally. Left side dominant vertebral artery. Diminutive right vertebral artery. No high-grade stenosis. No significant soft tissue abnormalities of the neck IMPRESSION: Mild atherosclerosis of the bilateral carotid bulbs 2 views to no more than mild stenosis of the origins of the ICAs. Otherwise, no high-grade stenosis, occlusion, or evidence of acute vascular injury. 27 Finalized by Zac Lucia on 06/10/2024 10:36 AM [facility] Zac Lucia MD - 06/10/2024 EXAM: MR MRA NECK W WO CONT INDICATION: Stroke, follow up COMPARISONS: None TECHNIQUE/PROTOCOL : Dynamic contrast enhanced neck MRA performed. 3D reconstructions were performed to evaluate vascular anatomy. All internal carotid measurements were made according to the NASCET criteria. CONTRAST: 12.5mL ProHance IV. FINDINGS: Normal triple vessel takeoff of the aorta. No significant narrowing of the origins of the great vessels. Common carotids are patent bilaterally. Moderate irregularity of the bilateral carotid bulbs contributes to approximately 25% stenosis of the proximal bilateral ICAs. The remainder of the ICAs are patent bilaterally. Left side dominant vertebral artery. Diminutive right vertebral artery. No high-grade stenosis. No significant soft tissue abnormalities of the neck IMPRESSION: Mild atherosclerosis of the bilateral carotid bulbs 2 views to no more than mild stenosis of the origins of the ICAs. Otherwise, no high-grade stenosis, occlusion, or evidence of acute vascular injury. 27 Finalized by Zac Lucia on 06/10/2024 10:[address] [email or web address] [employer] [facility] No Panel Informationon 06-10 Radiology Study observation (narrative) [facility] BASIC METABOLIC PANLon 06-09 Anion gap [Moles/Vol] 12 mmol/L Normal 5-15 [facility] Comment on above: Performed By: #### 7 5241-0, 2131-9, PINR, 03965-5, AHP, CMP, THYR, FEPR, CBCA, 41782-6, 17661-4, 1967-11, 2283-12, 2275-4 #### [facility] ([id number]) [address], [address] [place] [address] Calcium [Mass/Vol] 8.7 mg/dL Normal 8.5-10.5 [facility] Comment on above: Performed By: #### 7 5241-0, 9, PINR, 68213-1, AHP, CMP, THYR, FEPR, CBCA, 23239-0, 05977-5, 1967-11, 2283-12, 2275- #### [facility] ([id number]) [address], [address] [place] [address] Chloride [Moles/Vol] 102 mmol/L Normal 98-109 [facility] Comment on above: Performed By: #### 7 5241-0, 9, PINR, 56914-4, AHP, CMP, THYR, FEPR, CBCA, 03690-6, 07613-6, 1967-11, 2283-12, 2275-4 #### [facility] ([id number]) [address], [address] [place] [address] CO2 [Moles/Vol] 30 mmol/L Normal 22-32 [facility] Comment on above: Performed By: #### 7 5241-0, 9, PINR, 36260-5, AHP, CMP, THYR, FEPR, CBCA, 70986-3, 29520-6, 1967-11, 2283-12, 2275-4 #### [facility] ([id number]) [address], [address] [place] [address] Creatinine [Mass/Vol] 1.32 mg/dL High 0.60-1.30 [facility] Comment on above: Result Comment: METH OD TRACEABLE TO IDMS STANDARD Performed By: #### 7 5241-0, 9, PINR, 38321-8, AHP, CMP, THYR, FEPR, CBCA, 81065-5, 34704-0, 1967-7, 2283-8, 6-4 #### [facility] ([id number]) [address], [address] [place] [address] GFR/1.73 sq M.predicted among non-blacks MDRD (S/P/Bld) [Vol rate/Area] 58 mL/min/{1.73_m2} Low >59 [facility] Comment on above: Result Comment: Reported eGFR is based on the CKD-EPI 2020 equation that does not use a race coefficient. Performed By: #### 7 5241-0, 9, PINR, 23126-0, AHP, CMP, THYR, FEPR, CBCA, 29385-5, 63477-5, 1967-, 2283-8, 2275-4 #### [facility] ([id number]) [address], [address] [place] [address] Glucose [Mass/Vol] 99 mg/dL Normal 65-99 [facility] Comment on above: Performed By: #### 7 5241-0, 9, PINR, 38873-4, AHP, CMP, THYR, FEPR, CBCA, 00134-1, 64945-3, 1967-, 2283-, 2275-4 #### [facility] ([id number]) [address], [address] [place] [address] Potassium [Moles/Vol] 3.5 mmol/L Normal 3.5-5.0 [facility] Comment on above: Performed By: #### 7 5241-0, 9, PINR, 19376-2, AHP, CMP, THYR, FEPR, CBCA, 01035-3, 14575-2, 1967-, 2283-8, 6-4 #### [facility] ([id number]) [address], [address] [place] [address] Sodium [Moles/Vol] 144 mmol/L Normal 134-146 [facility] Comment on above: Performed By: #### 7 5241-0, 2131-9, PINR, 85474-0, AHP, CMP, THYR, FEPR, CBCA, 92736-6, 61036-5, 1967-, 2283-8, 6-4 #### [facility] ([id number]) [address], [address] [place] [address] Urea nitrogen [Mass/Vol] 18 mg/dL Normal 5-27 [facility] Comment on above: Performed By: #### 7 5241-0, 9, PINR, 58449-6, AHP, CMP, THYR, FEPR, CBCA, 42930-2, 80816-1, 1967-, 2283-8, 2275-4 #### [facility] ([id number]) [address], [address] [place] [address] Basic Metabolic Panelon - Anion gap [Moles/Vol] 12 mmol/L 5 - 15 mmol/L [facility] Calcium [Mass/Vol] 8.7 mg/dL 8.5 - 10. 5 mg/dL [facility] Chloride [Moles/Vol] 102 mmol/L 98 - 10 9 mmol/L [facility] CO2 [Moles/Vol] 30 mmol/L 22 - 32 mmol/L [facility] Creatinine [Mass/Vol] 1.32 mg/dL High 0.60 - 1.30 mg/dL [facility] Comment on above: METHOD TRACEABLE TO IDMS STANDARD eGFR (CKD-EPI)non-race dependent 58 Low - PINF [facility] Comment on above: Reported eGFR is based on the CKD-EPI 2020 equation that does not use a race coefficient. Glucose [Mass/Vol] 99 mg/dL 65 - 99 mg/dL [facility] Interpretation and review of laboratory results Abnormal [facility] Potassium [Moles/Vol] 3.5 mmol/L 3.5 - 5.0 mmol/L [facility] Sodium [Moles/Vol] 144 mmol/L 134 - 146 mmol/L [facility] Urea nitrogen [Mass/Vol] 18 mg/dL 5 - 27 mg/dL [facility] CBC AND AUTO DIFFon 06-09-19 25 ABSOLUTE BASOPHIL 0.1 X10E9/L Normal 0.0-0.2 [facility] Comment on above: Performed By: #### 7 5241-0, 2131-9, PINR, 09172-0, AHP, CMP, THYR, FEPR, CBCA, 43763-8, 59118-9, 1967-11, 2283-12, 2275- #### [facility] ([id number]) [address], [address] [place] [address] ABSOLUTE NEUTROPHIL 5.0 X10E9/L Normal 1.5-6.6 [facility] Comment on above: Performed By: #### 7 5241-0, 9, PINR, 49527-3, AHP, CMP, THYR, FEPR, CBCA, 26626-9, 24921-4, 1967-11, 2283-12, 2275- #### [facility] ([id number]) [address], [address] [place] [address] Anisocytosis Ql (Bld) 2+ Abnormal NONE [facility] Comment on above: Performed By: #### 7 5241-0, 2131-9, PINR, 24048-7, AHP, CMP, THYR, FEPR, CBCA, 44050-6, 17568-2, 1967-11, 2283-12, 2275-4 #### [facility] ([id number]) [address], [address] [place] [address] Basophils/100 WBC (Bld) 0.9 % Normal [facility] Comment on above: Performed By: #### 7 5241-0, 2131-9, PINR, 32454-1, AHP, CMP, THYR, FEPR, CBCA, 33521-8, 69630-1, 1967-11, 2283-8, 6-4 #### [facility] ([id number]) [address], [address] [place] [address] Eosinophils (Bld) [#/Vol] 0.1 10*3/uL Normal 0.0-0.4 [facility] Comment on above: Performed By: #### 7 5241-0, 9, PINR, 22357-2, AHP, CMP, THYR, FEPR, CBCA, , 64403-3, 1967-11, 2283-12, 2275- #### [facility] ([id number]) [address], [address] [place] [address] Eosinophils/100 WBC (Bld) 1.3 % Normal [facility] Comment on above: Performed By: #### 7 5241-0, 2131-9, PINR, 15792-3, AHP, CMP, THYR, FEPR, CBCA, 14086-0, 69819-1, 1967-11, 2283-12, 2275-4 #### [facility] ([id number]) [address], [address] [place] [address] Erythrocyte distribution width (RBC) [Ratio] 24.1 % High 11.5-15.0 [facility] Comment on above: Performed By: #### 7 5241-0, 2131-9, PINR, 01629-3, AHP, CMP, THYR, FEPR, CBCA, 63313-9, 30592-2, 1967-11, 2283-12, 2275-4 #### [facility] ([id number]) [address], [address] [place] [address] FRAGMENT 1+ Abnormal NONE [facility] Comment on above: Performed By: #### 7 5241-0, 2131-9, PINR, 14376-8, AHP, CMP, THYR, FEPR, CBCA, 98320-9, 60822-0, 1967-11, 2283-12, 2275-08 #### [facility] ([id number]) [address], [address] [place] [address] Hematocrit (Bld) [Volume fraction] 40.9 % Normal 39-49 [facility] Comment on above: Performed By: #### 7 5241-0, 2131-9, PINR, 67781-7, AHP, CMP, THYR, FEPR, CBCA, 37556-8, 95290-0, 1967-11, 2283-12, 2275-08 #### [facility] ([id number]) [address], [address] [place] [address] Hemoglobin (Bld) [Mass/Vol] 12.6 g/dL Low 13.0-17. 0 [facility] Comment on above: Performed By: #### 7 5241-0, 9, PINR, 41453-1, AHP, CMP, THYR, FEPR, CBCA, , 05258-6, 1967-11, 2283-12, 2275-08 #### [facility] ([id number]) [address], [address] [place] [address] HYPOCHROMIA 2+ Abnormal NONE [facility] Comment on above: Performed By: #### 7 5241-0, 2131-9, PINR, 74094-4, AHP, CMP, THYR, FEPR, CBCA, 34477-8, 40219-4, 1967-11, 2283-12, 2275-08 #### [facility] ([id number]) [address], [address] [place] [address] Lymphocytes (Bld) [#/Vol] 0.5 10*3/uL Low 1.0-3.5 [facility] Comment on above: Performed By: #### 7 5241-0, 2131-9, PINR, 63871-0, AHP, CMP, THYR, FEPR, CBCA, 94337-6, 86547-1, 1967-11, 2283-12, 2275-08 #### [facility] ([id number]) [address], [address] [place] [address] Lymphocytes/100 WBC (Bld) 8.4 % Normal [facility] Comment on above: Performed By: #### 7 5241-0, 2131-9, PINR, 00688-0, AHP, CMP, THYR, FEPR, CBCA, 30633-1, 06747-7, 1967-11, 2283-12, 2275- #### [facility] ([id number]) [address], [address] [place] [address] MCH (RBC) [Entitic mass] 22.5 pg Low 27-34 [facility] Comment on above: Performed By: #### 7 5241-0, 9, PINR, 38366-9, AHP, CMP, THYR, FEPR, CBCA, , 49038-3, 1967-11, 2283-12, 2275-08 #### [facility] ([id number]) [address], [address] [place] [address] MCHC (RBC) [Mass/Vol] 30.7 g/dL Low 32-36 [facility] Comment on above: Performed By: #### 7 5241-0, 2131-9, PINR, 96414-6, AHP, CMP, THYR, FEPR, CBCA, 73506-6, 51843-6, 1967-11, 2283-12, 2275- #### [facility] ([id number]) [address], [address] [place] [address] MCV (RBC) [Entitic vol] 73 fL Low 80-100 [facility] Comment on above: Performed By: #### 7 5241-0, 2131-9, PINR, 60040-5, AHP, CMP, THYR, FEPR, CBCA, 16420-0, 21771-3, 1967-11, 2283-12, 2275-4 #### [facility] ([id number]) [address], [address] [place] [address] Monocytes (Bld) [#/Vol] 0.4 10*3/uL Normal 0-0.9 [facility] Comment on above: Performed By: #### 7 5241-0, 9, PINR, 07250-1, AHP, CMP, THYR, FEPR, CBCA, 56664-0, 59930-4, 1967-11, 2283-12, 2275-08 #### [facility] ([id number]) [address], [address] [place] [address] Monocytes/100 WBC (Bld) 6.3 % Normal [facility] Comment on above: Performed By: #### 7 5241-0, 9, PINR, 61071-3, AHP, CMP, THYR, FEPR, CBCA, 64969-4, 10509-4, 1967-11, 2283-12, 2275- #### [facility] ([id number]) [address], [address] [place] [address] Neutrophils/100 WBC (Bld) 83.1 % Normal [facility] Comment on above: Performed By: #### 7 5241-0, 9, PINR, 68555-3, AHP, CMP, THYR, FEPR, CBCA, 20309-4, 00295-5, 1967-11, 2283-12, 2275-4 #### [facility] ([id number]) [address], [address] [place] [address] OVALOCYTE 2+ Abnormal NONE [facility] Comment on above: Performed By: #### 7 5241-0, 2131-9, PINR, 85495-3, AHP, CMP, THYR, FEPR, CBCA, 61732-5, 51099-1, 1967-11, 2283-12, 2275- #### [facility] ([id number]) [address], [address] [place] [address] Platelet mean volume (Bld) [Entitic vol] 8.8 fL Normal 7-12 [facility] Comment on above: Performed By: #### 7 5241-0, 2131-9, PINR, 77443-2, AHP, CMP, THYR, FEPR, CBCA, , 40614-6, 1967-11, 2283-12, 2275- #### [facility] ([id number]) [address], [address] [place] [address] Platelets (Bld) [#/Vol] 271 10*3/uL Normal 150-450 [facility] Comment on above: Performed By: #### 7 5241-0, 9, PINR, 60548-4, AHP, CMP, THYR, FEPR, CBCA, , 04322-4, 1967-11, 2283-12, 2275- #### [facility] ([id number]) [address], [address] [place] [address] RBC COUNT 5.59 X10E12/L Normal 4.10-5.70 [facility] Comment on above: Performed By: #### 7 5241-0, 2131-9, PINR, 76306-0, AHP, CMP, THYR, FEPR, CBCA, 90004-9, 11456-0, 1967-11, 2283-12, 2275- #### [facility] ([id number]) [address], [address] [place] [address] WBC (Bld) [#/Vol] 6.0 10*3/uL Normal 4.0-11.0 [facility] Comment on above: Performed By: #### 7 5241-0, 2132-9, PINR, 51797-4, AHP, CMP, THYR, FEPR, CBCA, 29519-9, 17207-3, 1968-7, 2284-8, 2276-4 #### [facility] ([id number]) [address], [address] [place] [address] CBC auto differentialon Anisocytosis Ql (Bld) 2+ Abnormal NONE^NONE [facility] Basophils (Bld) [#/Vol] 0.1 10*3/uL [facility] Basophils/100 WBC (Bld) 0.9 % [facility] Eosinophils (Bld) [#/Vol] 0.1 10*3/uL [facility] Eosinophils/100 WBC (Bld) 1.3 % [facility] Erythrocyte distribution width (RBC) [Ratio] 24.1 % High 11.5 - 15.0 % [facility] Fragments LM Ql (Bld) 1+ Abnormal NONE^NONE [facility] Hematocrit (Bld) [Volume fraction] 40.9 % 39 - 49 % [facility] Hemoglobin (Bld) [Mass/Vol] 12.6 g/dL Low 13.0 - 17.0 g/dL [facility] Hypochromia Ql (Bld) 2+ Abnormal NONE^NONE [facility] Interpretation and review of laboratory results Abnormal [facility] Lymphocytes (Bld) [#/Vol] 0.5 10*3/uL Low [facility] Lymphocytes/100 WBC (Bld) 8.4 % [facility] MCH (RBC) [Entitic mass] 22.5 pg Low 27 - 34 pg [facility] MCHC (RBC) [Mass/Vol] 30.7 g/dL Low 32 - 3 6 g/dL [facility] MCV (RBC) [Entitic vol] 73 fL Low 80 - 100 fL [facility] Monocytes (Bld) [#/Vol] 0.4 10*3/uL [facility] Monocytes/100 WBC (Bld) 6.3 % [facility] Neutrophils (Bld) [#/Vol] 5 10*3/uL [facility] Neutrophils/100 WBC (Bld) 83.1 % [facility] Ovalocytes LM Ql (Bld) 2+ Abnormal NONE^NONE [facility] Platelet mean volume (Bld) [Entitic vol] 8.8 fL 7 - 12 fL [facility] Platelets (Bld) [#/Vol] 271 10*3/uL [facility] RBC (Bld) [#/Vol] 5.59 10*6/uL [facility] WBC corrected for nucl RBC Auto (Bld) [#/Vol] 6 [facility] ECG 12 leadon 06-09-2024 TRACEMASTERVUE [facility] POTASSIUMon 06-09-2024 Potassium [Moles/Vol] 3.8 mmol/L Normal 3.5-5.0 [facility] Comment on above: Performed By: #### 7 5241-0, 2132-01, PINR, 96409-0, AHP, CMP, THYR, FEPR, CBCA, 38420-1, 32891-0, 1968-7, 2284-8, 2276-4 #### [facility] ([id number]) [address], [address] [place] [address] Potassiumon 06-09-2024 Potassium [Moles/Vol] 3.8 mmol/L 3.5 - 5.0 mmol/L [facility] Potassium [Moles/Vol]on [facility] APTTon 06-08-2024 aPTT Coag (PPP) [Time] 38 s High [facility] aPTT Coag (PPP) [Time] 80 s High [facility] BASIC METABOLIC PANLon 06-08 Anion gap [Moles/Vol] 13 mmol/L Normal 5-15 [facility] Comment on above: Performed By: #### 7 5241-0, 9, PINR, 76024-6, AHP, CMP, THYR, FEPR, CBCA, 04182-9, 71273-5, 1967-, 2283-8, 6-4 #### [facility] ([id number]) [address], [address] [place] [address] Calcium [Mass/Vol] 8.3 mg/dL Low 8.5-10.5 [facility] Comment on above: Performed By: #### 7 5241-0, 9, PINR, 44484-9, AHP, CMP, THYR, FEPR, CBCA, 64590-4, 41059-9, 1967-, 2283-12, 2275-4 #### [facility] ([id number]) [address], [address] [place] [address] Chloride [Moles/Vol] 107 mmol/L Normal 98-109 [facility] Comment on above: Performed By: #### 7 5241-0, 2132-01, PINR, 00159-8, AHP, CMP, THYR, FEPR, CBCA, 32942-5, 40504-3, 1967-11, 2283-12, 2275-4 #### [facility] ([id number]) [address] [address], [address] [place] [address] CO2 [Moles/Vol] 26 mmol/L Normal 22-32 [facility] Comment on above: Performed By: #### 7 5241-0, 9, PINR, 27072-8, AHP, CMP, THYR, FEPR, CBCA, 12473-3, 40831-0, 1967-11, 2283-12, 2275-4 #### [facility] ([id number]) [address] [address], [address] [place] [address] Creatinine [Mass/Vol] 1.58 mg/dL High 0.60-1.30 [facility] Comment on above: Result Comment: METH OD TRACEABLE TO IDMS STANDARD Performed By: #### 7 5241-0, 2132-9, PINR, 06180-0, AHP, CMP, THYR, FEPR, CBCA, 65204-6, 51601-6, 1967-11, 2283-12, 2275- #### [facility] ([id number]) [address], [address] [place] [address] GFR/1.73 sq M.predicted among non-blacks MDRD (S/P/Bld) [Vol rate/Area] 47 mL/min/{1.73_m2} Low >59 [facility] Comment on above: Result Comment: Reported eGFR is based on the CKD-EPI 2020 equation that does not use a race coefficient. Performed By: #### 7 5241-0, 2132-01, PINR, 01343-8, AHP, CMP, THYR, FEPR, CBCA, 44308-6, 99892-3, 1967-11, 2283-12, 2275-08 #### [facility] ([id number]) [address] [address], [address] [place] [address] Glucose [Mass/Vol] 117 mg/dL High 65-99 [facility] Comment on above: Performed By: #### 7 5241-0, 9, PINR, 52421-1, AHP, CMP, THYR, FEPR, CBCA, 95119-6, 12753-9, 1967-11, 2283-12, 2275- #### [facility] ([id number]) [address] [address], [address] [place] [address] Potassium [Moles/Vol] 3.4 mmol/L Low 3.5-5.0 [facility] Comment on above: Performed By: #### 7 5241-0, 9, PINR, 79883-4, AHP, CMP, THYR, FEPR, CBCA, 59167-6, 46469-9, 1967-11, 2283-12, 2275- #### [facility] ([id number]) [address] [address], [address] [place] [address] Sodium [Moles/Vol] 146 mmol/L Normal 134-146 [facility] Comment on above: Performed By: #### 7 5241-0, 2-9, PINR, 75769-1, AHP, CMP, THYR, FEPR, CBCA, 63123-7, 05094-8, 1967-7, 2283-8, 6-4 #### [facility] ([id number]) [address] [address], [address] [place] [address] Urea nitrogen [Mass/Vol] 24 mg/dL Normal 5-27 [facility] Comment on above: Performed By: #### 7 5241-0, 2131-9, PINR, 31237-6, AHP, CMP, THYR, FEPR, CBCA, 48000-8, 95976-7, 1967-, 2283-8, 2275-4 #### [facility] ([id number]) [address] [address], [address] [place] [address] Bacteria identified Cx Nom ( U)on 06-08-2024 Service comment (Unsp spec) [Interp] NO GROWTH AT <1000 CFU/mL [facility] Basic Metabolic Panelon Anion gap [Moles/Vol] 13 mmol/L 5 - 15 mmol/L [facility] Calcium [Mass/Vol] 8.3 mg/dL Low 8.5 - 10. 5 mg/dL [facility] Chloride [Moles/Vol] 107 mmol/L 98 - 10 9 mmol/L [facility] CO2 [Moles/Vol] 26 mmol/L 22 - 32 mmol/L [facility] Creatinine [Mass/Vol] 1.58 mg/dL High 0.60 - 1.30 mg/dL [facility] Comment on above: METHOD TRACEABLE TO IDMS STANDARD eGFR (CKD-EPI)non-race dependent 47 Low - PINF [facility] Comment on above: Reported eGFR is based on the CKD-EPI 2020 equation that does not use a race coefficient. Glucose [Mass/Vol] 117 mg/dL High 65 - 99 mg/dL [facility] Interpretation and review of laboratory results Abnormal [facility] Potassium [Moles/Vol] 3.4 mmol/L Low 3.5 - 5.0 mmol/L [facility] Sodium [Moles/Vol] 146 mmol/L 134 - 146 mmol/L [facility] Urea nitrogen [Mass/Vol] 24 mg/dL 5 - 27 mg/dL [facility] CT BRAIN WO CONTon CT BRAIN WO CONT CT BRAIN WO CONT Nonenhanced CT of the brain dated dated 06/08/2024 at 7:56 PM INDICATION: Bilateral subdural fluid collections PROCEDURE: Automatic radiation exposure lowering techniques were utilized. All CT scans at this facility use dose modulation, iterative reconstruction, and/or weight based dosing when appropriate to reduce radiation dose to as low as reasonably achievable.. A nonenhanced CT of the brain and sagittal and coronal reformats obtained. FINDINGS: Comparison is to 2024 and 06/07/2024. Redemonstration of calcifications in the basal ganglia, and encephalomalacia in the right frontal and occipital lobes not significantly changed. No intracranial bleed. No mass, mass effect, or midline shift shift. No significant change from the comparison examination. Tiny subdural hygromas of unknown clinical significance. IMPRESSION: 1. No intracranial bleed. 2. No significant change from the comparison examination. 27 Finalized by Uriel Smith MD on 06/08/2024 8:36 PM Normal [facility] CT BRAIN WO CONT CT BRAIN WO CONT CT OF THE HEAD WITHOUT CONTRAST INDICATION: Pain. Head trauma, moderate-severe COMPARISON: 06/07/2024 TECHNIQUE: CT was obtained of the head without contrast. FINDINGS: INTRACRANIAL: Stable configuration of the ventricles and sulci with mild to moderate volume loss. No mass effect or midline shift. Right occipital encephalomalacia/g liosis. Basal ganglial mineralization. Maintained lanier-white differentiation. Potential small lentiform fluid collections over the bifrontal regions somewhat less conspicuous than on prior; consider MRI follow-up. No convincing intracranial hemorrhage.. SOFT TISSUES and ORBITS: Orbits are unremarkable. Soft tissues within normal limits. CALVARIUM: No depressed calvarial fracture or suspicious lesion. SINUSES AND MASTOID AIR CELLS: Well aerated. IMPRESSION: No significant change from 06/07/2024.. See above. Consider MRI follow-up . All CT scans at this facility use dose modulation, iterative reconstruction, and/or weight based dosing when appropriate to reduce radiation dose to as low as reasonably achievable. 27 Finalized by Zac Lewis MD on 06/08/2024 11:06 AM [facility] CT Head WO contraston [address] of the brain dated dated 06/08/2024 at 7:56 PM INDICATION: Bilateral subdural fluid collections PROCEDURE: Automatic radiation exposure lowering techniques were utilized. All CT scans at this facility use dose modulation, iterative reconstruction, and/or weight based dosing when appropriate to reduce radiation dose to as low as reasonably achievable.. A nonenhanced CT of the brain and sagittal and coronal reformats obtained. FINDINGS: Comparison is to 2024 and 06/07/2024. Redemonstration of calcifications in the basal ganglia, and encephalomalacia in the right frontal and occipital lobes not significantly changed. No intracranial bleed. No mass, mass effect, or midline shift shift. No significant change from the comparison examination. Tiny subdural hygromas of unknown clinical significance. IMPRESSION: 1. No intracranial bleed. 2. No significant change from the comparison examination. 27 Finalized by Uriel Smith MD on 06/08/2024 8:36 PM [facility] Uriel Smith MD - 06/08/[address] of the brain dated dated 06/08/2024 at 7:56 PM INDICATION: Bilateral subdural fluid collections PROCEDURE: Automatic radiation exposure lowering techniques were utilized. All CT scans at this facility use dose modulation, iterative reconstruction, and/or weight based dosing when appropriate to reduce radiation dose to as low as reasonably achievable.. A nonenhanced CT of the brain and sagittal and coronal reformats obtained. FINDINGS: Comparison is to 2024 and 06/07/2024. Redemonstration of calcifications in the basal ganglia, and encephalomalacia in the right frontal and occipital lobes not significantly changed. No intracranial bleed. No mass, mass effect, or midline shift shift. No significant change from the comparison examination. Tiny subdural hygromas of unknown clinical significance. IMPRESSION: 1. No intracranial bleed. 2. No significant change from the comparison examination. 27 Finalized by Uriel Smith MD on 06/08/2024 8:36 PM [facility] Radiology Study observation (narrative) [facility] CT OF THE HEAD WITHOUT CONTRAST INDICATION: Pain. Head trauma, moderate-severe COMPARISON: 06/07/2024 TECHNIQUE: CT was obtained of the head without contrast. FINDINGS: INTRACRANIAL: Stable configuration of the ventricles and sulci with mild to moderate volume loss. No mass effect or midline shift. Right occipital encephalomalacia/g liosis. Basal ganglial mineralization. Maintained lanier-white differentiation. Potential small lentiform fluid collections over the bifrontal regions somewhat less conspicuous than on prior; consider MRI follow-up. No convincing intracranial hemorrhage.. SOFT TISSUES and ORBITS: Orbits are unremarkable. Soft tissues within normal limits. CALVARIUM: No depressed calvarial fracture or suspicious lesion. SINUSES AND MASTOID AIR CELLS: Well aerated. IMPRESSION: No significant change from 06/07/2024.. See above. Consider MRI follow-up . All CT scans at this facility use dose modulation, iterative reconstruction, and/or weight based dosing when appropriate to reduce radiation dose to as low as reasonably achievable. 27 Finalized by Zac Lewis MD on 06/08/2024 11:06 AM [facility] Zac Lewis MD - 06/08/2024 CT OF THE HEAD WITHOUT CONTRAST INDICATION: Pain. Head trauma, moderate-severe COMPARISON: 06/07/2024 TECHNIQUE: CT was obtained of the head without contrast. FINDINGS: INTRACRANIAL: Stable configuration of the ventricles and sulci with mild to moderate volume loss. No mass effect or midline shift. Right occipital encephalomalacia/g liosis. Basal ganglial mineralization. Maintained lanier-white differentiation. Potential small lentiform fluid collections over the bifrontal regions somewhat less conspicuous than on prior; consider MRI follow-up. No convincing intracranial hemorrhage.. SOFT TISSUES and ORBITS: Orbits are unremarkable. Soft tissues within normal limits. CALVARIUM: No depressed calvarial fracture or suspicious lesion. SINUSES AND MASTOID AIR CELLS: Well aerated. IMPRESSION: No significant change from 06/07/2024.. See above. Consider MRI follow-up . All CT scans at this facility use dose modulation, iterative reconstruction, and/or weight based dosing when appropriate to reduce radiation dose to as low as reasonably achievable. 27 Finalized by Zac Lewis MD on 06/08/2024 11:06 AM [facility] Radiology Study observation (narrative) [facility] CT Head WO contrastOrdered B y: Uriel Smith on 06-08-2024 [facility] Work Phone: CT Head WO contrastOrdered B y: Zac Lewis on 06-08-2024 [facility] Work Phone: HEMOGLOBINon 06-08-2024 Hemoglobin (Bld) [Mass/Vol] 11.3 g/dL Low 13.0-17. 0 [facility] Comment on above: Performed By: #### 7 5241-0, 2131-9, PINR, 93806-0, AHP, CMP, THYR, FEPR, CBCA, 50643-0, 22035-6, 1967-7, 4-8, 2276-4 #### [facility] ([id number]) [address], [address] [place] [address] HGB A1C (GLYCO-HGB)on 2024 Glucose [Mass/Vol] 123 mg/dL Normal [facility] Comment on above: Performed By: #### 7 5241-0, 2131-9, PINR, 69146-5, AHP, CMP, THYR, FEPR, CBCA, 96202-1, 84463-7, 1967-7, 4-8, 2276-4 #### [facility] ([id number]) [address] [place] [address], [address] [place] [address] HbA1c (Bld) [Mass fraction] 5.9 % High 4.4-5.6 [facility] Comment on above: Result Comment: NOTE ADA Guidelines Result HgbA1c Normal : less than 5.7 % Prediabetes : 5.7 % to 6.4 % Diabetes : > 6.4 % Use with caution in patients with abnormal hemoglobin variants as the half-life of red blood cells and in vivo glycation rates are affected. Performed By: #### 7 5241-0, 2131-9, PINR, 60806-7, AHP, CMP, THYR, FEPR, CBCA, 24309-5, 39962-8, 1967-11, 2283-12, 2275- #### [facility] ([id number]) [address], [address] [place] [address] Hemoglobinon 06-08-2024 Hemoglobin (Bld) [Mass/Vol] 11.3 g/dL Low 13.0 - 17.0 g/dL [facility] Hemoglobin (Bld) [Mass/Vol]o n 06-08-2024 Interpretation and review of laboratory results Abnormal [facility] Hemoglobin A1con 06-08-2024 Average glucose Estimated from glycated hemoglobin (Bld) [Mass/Vol] 123 mg/dL [facility] HbA1c (Bld) [Mass fraction] 5.9 % High 4.4 - 5.6 % [facility] Comment on above: NOTE ADA Guidelines Result HgbA1c Normal : less than 5.7 % Prediabetes : 5.7 % to 6.4 % Diabetes : > 6.4 % Use with caution in patients with abnormal hemoglobin variants as the half-life of red blood cells and in vivo glycation rates are affected. Interpretation and review of laboratory results Abnormal [facility] LIVER PANELon 06-08-2024 Albumin [Mass/Vol] 2.9 g/dL Low 3.2-5.3 [facility] Comment on above: Performed By: #### 7 5241-0, 9, PINR, 53372-1, AHP, CMP, THYR, FEPR, CBCA, 76543-1, 16301-7, 1967-11, 2283-12, 2275- #### [facility] ([id number]) [address], [address] [place] [address] ALP [Catalytic activity/Vol] 65 U/L Normal 39-130 [facility] Comment on above: Performed By: #### 7 5241-0, 2131-9, PINR, 31490-0, AHP, CMP, THYR, FEPR, CBCA, 16701-7, 62997-5, 1967-11, 2283-12, 2275-08 #### [facility] ([id number]) [address], [address] [place] [address] ALT [Catalytic activity/Vol] 20 U/L Normal 0-40 [facility] Comment on above: Performed By: #### 7 5241-0, 2131-9, PINR, 95793-1, AHP, CMP, THYR, FEPR, CBCA, 29490-4, 09356-1, 1967-11, 2283-12, 2275-08 #### [facility] ([id number]) [address], [address] [place] [address] AST [Catalytic activity/Vol] 31 U/L Normal 0-41 [facility] Comment on above: Performed By: #### 7 5241-0, 2131-9, PINR, 89356-0, AHP, CMP, THYR, FEPR, CBCA, 62221-9, 77075-7, 1967-11, 2283-12, 2275- #### [facility] ([id number]) [address], [address] [place] [address] Bilirubin [Mass/Vol] 1.3 mg/dL High 0.3-1.2 [facility] Comment on above: Performed By: #### 7 5241-0, 2131-9, PINR, 27902-3, AHP, CMP, THYR, FEPR, CBCA, 05222-5, 21920-3, 1967-11, 2283-12, 2275- #### [facility] ([id number]) [address], [address] [place] [address] Bilirubin.direct [Mass/Vol] 0.5 mg/dL High 0.0-0.4 [facility] Comment on above: Performed By: #### 7 5241-0, 2-9, PINR, 97663-6, AHP, CMP, THYR, FEPR, CBCA, 66759-1, 24721-4, 1967-11, 2283-12, 2275-4 #### [facility] ([id number]) [address], [address] [place] [address] Protein [Mass/Vol] 5.7 g/dL Low 6.0-8.0 [facility] Comment on above: Performed By: #### 7 5241-0, 2131-9, PINR, 65312-2, AHP, CMP, THYR, FEPR, CBCA, 14532-5, 87308-7, 1967-11, 2283-12, 2275-08 #### [facility] ([id number]) [address], [address] [place] [address] Lipid 1996 panelon 5 Cholesterol [Mass/Vol] 135 mg/dL Low 150 - 200 mg/dL [facility] Cholesterol in HDL [Mass/Vol] 25 mg/dL Low 39 - PINF mg/dL [facility] Comment on above: HDL <40 mg/dL - High Risk HDL > or = 40mg/dL- Desirable HDL >60 mg/dL - Negative Risk Cholesterol in LDL [Mass/Vol] 96 mg/dL NINF - 130 mg/dL [facility] Comment on above: LDL <100 mg/dL - Desirable LDL >160 mg/dL - High Risk Cholesterol in VLDL [Mass/Vol] 14 mg/dL 0 - 30 mg/dL [facility] Cholesterol.total/Cholester ol in HDL [Mass ratio] 5.4 {ratio} High 1.0 - 5.0 [facility] Interpretation and review of laboratory results Abnormal [facility] Triglyceride [Mass/Vol] 70 mg/dL 27 - 150 mg/dL [facility] Cholesterol [Mass/Vol] 135 mg/dL Low 150-200 Pr [facility] Comment on above: Performed By: #### 7 5241-0, 2-9, PINR, 10550-3, AHP, CMP, THYR, FEPR, CBCA, 70551-1, 91447-6, 1967-11, 2283-12, 2275-08 #### [facility] ([id number]) [address], [address] [place] [address] Cholesterol in HDL [Mass/Vol] 25 mg/dL Low >39 [facility] Comment on above: Result Comment: HDL <40 mg/dL - High Risk HDL > or = 40mg/dL- Desirable HDL >60 mg/dL - Negative Risk Performed By: #### 7 5241-0, 2-9, PINR, 50415-9, AHP, CMP, THYR, FEPR, CBCA, 67930-9, 95411-4, 1967-11, 2283-12, 2275-08 #### [facility] ([id number]) [address], [address] [place] [address] Cholesterol in LDL [Mass/Vol] 96 mg/dL Normal <130 [facility] Comment on above: Result Comment: LDL <100 mg/dL - Desirable LDL >160 mg/dL - High Risk Performed By: #### 7 5241-0, 2-9, PINR, 59922-0, AHP, CMP, THYR, FEPR, CBCA, 62234-2, 99115-2, 1967-11, 2283-12, 2275-08 #### [facility] ([id number]) [address], [address] [place] [address] Cholesterol in VLDL [Mass/Vol] 14 mg/dL Normal 0-30 [facility] Comment on above: Performed By: #### 7 5241-0, 2131-9, PINR, 38538-0, AHP, CMP, THYR, FEPR, CBCA, 03345-1, 78243-9, 1967-11, 2283-12, 2275- #### [facility] ([id number]) [address], [address] [place] [address] CHOLESTEROL:HDL 5.4 High 1.0-5.0 [facility] Comment on above: Performed By: #### 7 5241-0, 2131-9, PINR, 10014-9, AHP, CMP, THYR, FEPR, CBCA, 83043-9, 43882-4, 1967-11, 2283-12, 2275- #### [facility] ([id number]) [address], [address] [place] [address] Triglyceride [Mass/Vol] 70 mg/dL Normal 27-150 [facility] Comment on above: Performed By: #### 7 5241-0, 2131-9, PINR, 78579-9, AHP, CMP, THYR, FEPR, CBCA, 28723-0, 84761-5, 1967-11, 2283-12, 2275- #### [facility] ([id number]) [address], [address] [place] [address] Liver panelon 06-08-2024 Albumin [Mass/Vol] 2.9 g/dL Low 3.2 - 5.3 g/dL [facility] ALP [Catalytic activity/Vol] 65 U/L 39 - 130 U/L [facility] ALT No additional P-5'-P [Catalytic activity/Vol] 20 U/L 0 - 40 U/L [facility] AST [Catalytic activity/Vol] 31 U/L 0 - 41 U/L [facility] Bilirubin [Mass/Vol] 1.3 mg/dL High 0.3 - 1 .2 mg/dL [facility] Bilirubin.direct [Mass/Vol] 0.5 mg/dL High 0.0 - 0.4 mg/dL [facility] Interpretation and review of laboratory results Abnormal [facility] Protein [Mass/Vol] 5.7 g/dL Low 6.0 - 8.0 g/dL [facility] MAGNESIUMon 06-08-2024 Magnesium [Mass/Vol] 2.5 mg/dL Normal 1.8-2.6 [facility] Comment on above: Performed By: #### 7 5241-0, 2132-01, PINR, 16112-1, AHP, CMP, THYR, FEPR, CBCA, 06589-6, 24124-8, 1967-11, 2283-12, 2275- #### [facility] ([id number]) [address] [place] [address], [address] [place] [address] Magnesiumon 06-08-2024 Magnesium [Mass/Vol] 2.5 mg/dL 1.8 - 2 .6 mg/dL [facility] No Panel Informationon 06-08 [facility] PLATELET COUNT AND MPVon Platelet mean volume (Bld) [Entitic vol] 8.7 fL Normal 7-12 [facility] Comment on above: Performed By: #### 7 5241-0, 9, PINR, 97644-0, AHP, CMP, THYR, FEPR, CBCA, 49953-7, 50803-8, 1967-11, 2283-12, 2275- #### [facility] ([id number]) [address], [address] [place] [address] Platelets (Bld) [#/Vol] 277 10*3/uL Normal 150-450 [facility] Comment on above: Performed By: #### 7 5241-0, 9, PINR, 40431-8, AHP, CMP, THYR, FEPR, CBCA, 95497-0, 43768-8, 1967-11, 2283-12, 2275-08 #### [facility] ([id number]) [address], [address] [place] [address] POTASSIUMon 06-08-2024 Potassium [Moles/Vol] 3.3 mmol/L Low 3.5-5.0 [facility] Comment on above: Performed By: #### 7 5241-0, 9, PINR, 08324-6, AHP, CMP, THYR, FEPR, CBCA, , 57387-4, 1967-11, 2283-12, 2275-08 #### [facility] ([id number]) [address], [address] [place] [address] PROTIME AND INRon 06-08-2024 INR Coag (PPP) [Relative time] 1.2 {INR} High 0.8-1.1 [facility] Comment on above: Performed By: #### 7 5241-0, 9, PINR, 06312-8, AHP, CMP, THYR, FEPR, CBCA, 41407-2, 23240-3, 1967-11, 2283-12, 2275-08 #### [facility] ([id number]) [address], [address] [place] [address] PT Coag (PPP) [Time] 13.9 s High 9.8-13.2 [facility] Comment on above: Performed By: #### 7 5241-0, 9, PINR, 83554-6, AHP, CMP, THYR, FEPR, CBCA, 59209-6, 49922-4, 1967-, 2283-8, 2275-4 #### [facility] ([id number]) [address], [address] [place] [address] Platelet counton 06-08-2024 Platelet mean volume (Bld) [Entitic vol] 8.7 fL 7 - 12 fL [facility] Platelets (Bld) [#/Vol] 277 10*3/uL [facility] Potassiumon 06-08-2024 Potassium [Moles/Vol] 3.3 mmol/L Low 3.5 - 5.0 mmol/L [facility] Potassium [Moles/Vol]on Interpretation and review of laboratory results Abnormal [facility] Protime & INRon 06-08-2024 INR Coag (PPP) [Relative time] 1.2 {INR} High [facility] Interpretation and review of laboratory results Abnormal [facility] PT Coag (PPP) [Time] 13.9 s High [facility] aPTT Coag (PPP) [Time]on Interpretation and review of laboratory results Abnormal [facility] aPTT Coag (Bld) [Time] 38 s High 26-37 Pr [facility] Comment on above: Performed By: #### 7 5241-0, 2132-01, PINR, 47345-2, AHP, CMP, THYR, FEPR, CBCA, 21231-9, 71272-6, 1967-, 2283-8, 2275-4 #### [facility] ([id number]) [address], [address] [place] [address] Interpretation and review of laboratory results Abnormal [facility] aPTT Coag (Bld) [Time] 80 s High 26-37 Pr [facility] Comment on above: Performed By: #### 7 5241-0, 9, PINR, 68719-2, AHP, CMP, THYR, FEPR, CBCA, 15370-5, 85139-5, 1967-11, 2283-12, 2275- #### [facility] ([id number]) [address], [address] [place] [address] ACUTE HEPATITIS PANELon - ANTI HCV W/PCR REFLX Non-Reactive Normal NRCT Pr [facility] Comment on above: Result Comment: NEW TEST METHOD NOTE If recent infection suspected, recommend repeat testing (>2 months). Jqeksm-le-xtwrzb ratio is <1.00. Performed By: #### 7 5241-0, 2131-9, PINR, 05010-9, AHP, CMP, THYR, FEPR, CBCA, 37588-1, 14256-2, 1967-11, 2283-12, 2275- #### [facility] ([id number]) [address], [address] [place] [address] HEPATITIS A IGM Non-Reactive Normal [facility] Comment on above: Result Comment: NEW TEST METHOD Performed By: #### 7 5241-0, 2131-9, PINR, 74501-8, AHP, CMP, THYR, FEPR, CBCA, 68650-5, 38787-9, 1967-11, 2283-12, 2275- #### [facility] ([id number]) [address], [address] [place] [address] HEPATITIS B CORE IGM Non-Reactive Normal NRCT Pr [facility] Comment on above: Result Comment: NEW TEST METHOD Performed By: #### 7 5241-0, 9, PINR, 24029-7, AHP, CMP, THYR, FEPR, CBCA, 18339-3, 55272-5, 1967-11, 2283-12, 2275- #### [facility] ([id number]) [address], [address] [place] [address] HEPATITIS B SURF AG Non-Reactive Normal NRCT [facility] Comment on above: Result Comment: NEW TEST METHOD Performed By: #### 7 5241-0, 2131-9, PINR, 99783-1, AHP, CMP, THYR, FEPR, CBCA, 54505-9, 74079-3, 1967-11, 8, 2275- #### [facility] ([id number]) [address], [address] [place] [address] AMMONIAon 06-07-2024 Ammonia (P) [Moles/Vol] 32 umol/L Normal 18-72 P [facility] Comment on above: Result Comment: NEW REFERENCE RANGE Performed By: #### 7 5241-0, 9, PINR, 41791-8, AHP, CMP, THYR, FEPR, CBCA, , 13053-1, 1967-11, 2283-12, 2275-08 #### [facility] ([id number]) [address] [place] [address] APTTon 06-07-2024 aPTT Coag (PPP) [Time] 52 s High Pr [facility] aPTT Coag (PPP) [Time] 37 s Pr [facility] Ammoniaon 06-07-2024 Ammonia (P) [Moles/Vol] 32 umol/L 18 - 72 umol/L [facility] Comment on above: NEW REFERENCE RANGE Ammonia (P) [Moles/Vol]on [facility] Anti XA unfractionated hepar inon 06-07-2024 Heparin unfractionated Chromogenic method Qn (PPP) 0.14 Low [facility] Comment on above: Optimal time for macarena ting is 6 hrs post dosage This test is specific for monitoring patients on UFH, and is not recommended for use with other Anti-Xa medications. BILIRUBIN,DIRECTon Bilirubin.direct [Mass/Vol] 0.6 mg/dL High 0.0-0.4 [facility] Comment on above: Performed By: #### 7 5241-0, 2131-9, PINR, 15199-3, AHP, CMP, THYR, FEPR, CBCA, 12611-9, 99504-4, 1967-11, 2283-8, 6-4 #### [facility] ([id number]) [address], [address] [place] [address] Bilirubin, directon 06-07-19 25 Bilirubin.direct [Mass/Vol] 0.6 mg/dL High 0.0 - 0.4 mg/dL [facility] Bilirubin.direct [Mass/Vol]o n 06-07-2024 Interpretation and review of laboratory results Abnormal [facility] CBC AND AUTO DIFFon 06-07-19 25 ABSOLUTE BASOPHIL 0.1 X10E9/L Normal 0.0-0.2 [facility] Comment on above: Performed By: #### 7 5241-0, 9, PINR, 79128-4, AHP, CMP, THYR, FEPR, CBCA, 77696-1, 04192-7, 1967-11, 2283-12, 2275-4 #### [facility] ([id number]) [address], [address] [place] [address] ABSOLUTE NEUTROPHIL 5.7 X10E9/L Normal 1.5-6.6 [facility] Comment on above: Performed By: #### 7 5241-0, 9, PINR, 96333-2, AHP, CMP, THYR, FEPR, CBCA, 02416-6, 58806-4, 1967-11, 2283-12, 2275-4 #### [facility] ([id number]) [address], [address] [place] [address] Anisocytosis Ql (Bld) 2+ Abnormal [facility] Comment on above: Performed By: #### 7 5241-0, 9, PINR, 92469-0, AHP, CMP, THYR, FEPR, CBCA, 23257-9, 59121-0, 1967-11, 2283-12, 6-4 #### [facility] ([id number]) [address], [address] [place] [address] Basophils/100 WBC (Bld) 1.8 % Normal [facility] Comment on above: Performed By: #### 7 5241-0, 2131-9, PINR, 08333-9, AHP, CMP, THYR, FEPR, CBCA, 83284-6, 83722-4, 1967-11, 2283-12, 2275-4 #### [facility] ([id number]) [address], [address] [place] [address] Eosinophils (Bld) [#/Vol] 0.1 10*3/uL Normal 0.0-0.4 [facility] Comment on above: Performed By: #### 7 5241-0, 9, PINR, 66417-4, AHP, CMP, THYR, FEPR, CBCA, 75218-3, 21574-2, 1967-11, 2283-12, 2275- #### [facility] ([id number]) [address], [address] [place] [address] Eosinophils/100 WBC (Bld) 1.0 % Normal [facility] Comment on above: Performed By: #### 7 5241-0, 9, PINR, 45426-1, AHP, CMP, THYR, FEPR, CBCA, 55995-3, 60003-3, 1967-11, 2283-12, 2275- #### [facility] ([id number]) [address], [address] [place] [address] Erythrocyte distribution width (RBC) [Ratio] 23.8 % High 11.5-15.0 [facility] Comment on above: Performed By: #### 7 5241-0, 9, PINR, 21102-5, AHP, CMP, THYR, FEPR, CBCA, 88943-3, 81835-1, 1967-11, 2283-12, 2275- #### [facility] ([id number]) [address], [address] [place] [address] Hematocrit (Bld) [Volume fraction] 35.2 % Low 39-49 [facility] Comment on above: Performed By: #### 7 5241-0, 2131-9, PINR, 01967-0, AHP, CMP, THYR, FEPR, CBCA, 98471-8, 92286-4, 1967-11, 2283-12, 2275- #### [facility] ([id number]) [address], [address] [place] [address] Hemoglobin (Bld) [Mass/Vol] 10.9 g/dL Low 13.0-17. 0 [facility] Comment on above: Performed By: #### 7 5241-0, 9, PINR, 26881-5, AHP, CMP, THYR, FEPR, CBCA, 74801-4, 47325-7, 1967-11, 2283-12, 2275-08 #### [facility] ([id number]) [address], [address] [place] [address] HYPOCHROMIA 1+ Abnormal NONE [facility] Comment on above: Performed By: #### 7 5241-0, 9, PINR, 49624-9, AHP, CMP, THYR, FEPR, CBCA, 06817-2, 60480-4, 1967-11, 2283-12, 2275- #### [facility] ([id number]) [address], [address] [place] [address] Lymphocytes (Bld) [#/Vol] 0.2 10*3/uL Low 1.0-3.5 [facility] Comment on above: Performed By: #### 7 5241-0, 2131-9, PINR, 12222-3, AHP, CMP, THYR, FEPR, CBCA, 33277-3, 58701-2, 1967-11, 2283-12, 2275- #### [facility] ([id number]) [address], [address] [place] [address] Lymphocytes/100 WBC (Bld) 3.0 % Normal [facility] Comment on above: Performed By: #### 7 5241-0, 2131-9, PINR, 57858-1, AHP, CMP, THYR, FEPR, CBCA, 83282-2, 52969-1, 1967-11, 2283-12, 2275-08 #### [facility] ([id number]) [address], [address] [place] [address] MCH (RBC) [Entitic mass] 22.6 pg Low 27-34 [facility] Comment on above: Performed By: #### 7 5241-0, 9, PINR, 94656-7, AHP, CMP, THYR, FEPR, CBCA, 95437-8, 18462-0, 1967-11, 2283-12, 2275-08 #### [facility] ([id number]) [address], [address] [place] [address] MCHC (RBC) [Mass/Vol] 31.1 g/dL Low 32-36 Pro [facility] Comment on above: Performed By: #### 7 5241-0, 9, PINR, 56379-2, AHP, CMP, THYR, FEPR, CBCA, 94943-8, 74132-6, 1967-11, 2283-12, 2275- #### [facility] ([id number]) [address], [address] [place] [address] MCV (RBC) [Entitic vol] 73 fL Low 80-100 P [facility] Comment on above: Performed By: #### 7 5241-0, 9, PINR, 95100-9, AHP, CMP, THYR, FEPR, CBCA, 77469-1, 06034-1, 1967-11, 2283-12, 2275-08 #### [facility] ([id number]) [address], [address] [place] [address] Monocytes (Bld) [#/Vol] 0.3 10*3/uL Normal 0-0.9 [facility] Comment on above: Performed By: #### 7 5241-0, 2131-9, PINR, 97253-3, AHP, CMP, THYR, FEPR, CBCA, 96461-5, 90467-3, 1967-11, 2283-12, 2275- #### [facility] ([id number]) [address], [address] [place] [address] Monocytes/100 WBC (Bld) 5.2 % Normal P [facility] Comment on above: Performed By: #### 7 5241-0, 2131-9, PINR, 19568-8, AHP, CMP, THYR, FEPR, CBCA, 06389-2, 85860-0, 1967-11, 2283-12, 2275- #### [facility] ([id number]) [address], [address] [place] [address] Neutrophils/100 WBC (Bld) 89.0 % Normal [facility] Comment on above: Performed By: #### 7 5241-0, 2131-9, PINR, 55949-2, AHP, CMP, THYR, FEPR, CBCA, 20710-4, 02932-7, 1967-11, 2283-12, 2275- #### [facility] ([id number]) [address], [address] [place] [address] OVALOCYTE 2+ Abnormal NONE [facility] Comment on above: Performed By: #### 7 5241-0, 2131-9, PINR, 54937-9, AHP, CMP, THYR, FEPR, CBCA, 86660-6, 07040-1, 1967-11, 2283-12, 2275- #### [facility] ([id number]) [address], [address] [place] [address] Platelet mean volume (Bld) [Entitic vol] 8.7 fL Normal 7-12 [facility] Comment on above: Performed By: #### 7 5241-0, 2131-9, PINR, 36815-2, AHP, CMP, THYR, FEPR, CBCA, 28029-5, 81921-0, 1967-11, 2283-12, 2275- #### [facility] ([id number]) [address] [facility], [address] [place] [address] Platelets (Bld) [#/Vol] 259 10*3/uL Normal 150-450 [facility] Comment on above: Performed By: #### 7 5241-0, 9, PINR, 95202-1, AHP, CMP, THYR, FEPR, CBCA, 89233-7, 44197-7, 1967-11, 2283-12, 2275- #### [facility] ([id number]) [address] [facility], [address] [place] [address] RBC COUNT 4.84 X10E12/L Normal 4.10-5.70 [facility] Comment on above: Performed By: #### 7 5241-0, 9, PINR, 89047-5, AHP, CMP, THYR, FEPR, CBCA, 17734-2, 88493-4, 1967-11, 2283-12, 2275- #### [facility] ([id number]) [address], [address] [place] [address] WBC (Bld) [#/Vol] 6.4 10*3/uL Normal 4.0-11.0 [facility] Comment on above: Performed By: #### 7 5241-0, 9, PINR, 85605-6, AHP, CMP, THYR, FEPR, CBCA, 80668-9, 97897-3, 1967-11, 2283-12, 2275- #### [facility] ([id number]) [address] [facility], [address] [place] [address] CBC auto differentialon 05-10 Anisocytosis Ql (Bld) 2+ Abnormal NONE^NONE [facility] Basophils (Bld) [#/Vol] 0.1 10*3/uL [facility] Basophils/100 WBC (Bld) 1.8 % [facility] Eosinophils (Bld) [#/Vol] 0.1 10*3/uL [facility] Eosinophils/100 WBC (Bld) 1 % [facility] Erythrocyte distribution width (RBC) [Ratio] 23.8 % High 11.5 - 15.0 % [facility] Hematocrit (Bld) [Volume fraction] 35.2 % Low 39 - 49 % [facility] Hemoglobin (Bld) [Mass/Vol] 10.9 g/dL Low 13.0 - 17.0 g/dL [facility] Hypochromia Ql (Bld) 1+ Abnormal NONE^NONE [facility] Interpretation and review of laboratory results Abnormal [facility] Lymphocytes (Bld) [#/Vol] 0.2 10*3/uL Low [facility] Lymphocytes/100 WBC (Bld) 3 % [facility] MCH (RBC) [Entitic mass] 22.6 pg Low 27 - 34 pg [facility] MCHC (RBC) [Mass/Vol] 31.1 g/dL Low 32 - 3 6 g/dL [facility] MCV (RBC) [Entitic vol] 73 fL Low 80 - 100 fL [facility] Monocytes (Bld) [#/Vol] 0.3 10*3/uL [facility] Monocytes/100 WBC (Bld) 5.2 % [facility] Neutrophils (Bld) [#/Vol] 5.7 10*3/uL [facility] Neutrophils/100 WBC (Bld) 89 % [facility] Ovalocytes LM Ql (Bld) 2+ Abnormal NONE^NONE [facility] Platelet mean volume (Bld) [Entitic vol] 8.7 fL 7 - 12 fL [facility] Platelets (Bld) [#/Vol] 259 10*3/uL [facility] RBC (Bld) [#/Vol] 4.84 10*6/uL [facility] WBC corrected for nucl RBC Auto (Bld) [#/Vol] 6.4 [facility] COMPREHENSIVE METABOLIC PANE Erwin 06-07-2024 Albumin [Mass/Vol] 2.9 g/dL Low 3.2-5.3 [facility] Comment on above: Performed By: #### 7 5241-0, 2131-9, PINR, 46863-1, AHP, CMP, THYR, FEPR, CBCA, 81779-2, 77305-4, 1967-, 2283-, 2275- #### [facility] ([id number]) [address] [facility], [address] [place] [address] ALP [Catalytic activity/Vol] 60 U/L Normal 39-130 [facility] Comment on above: Performed By: #### 7 5241-0, 9, PINR, 67407-0, AHP, CMP, THYR, FEPR, CBCA, 05586-6, 89289-3, 1967-, 2283-12, 2275- #### [facility] ([id number]) [address] [facility], [address] [place] [address] ALT [Catalytic activity/Vol] 21 U/L Normal 0-40 [facility] Comment on above: Performed By: #### 7 5241-0, 9, PINR, 48550-2, AHP, CMP, THYR, FEPR, CBCA, 36210-7, 45163-6, 1967-, 2283-12, 2275-4 #### [facility] ([id number]) [address], [address] [place] [address] Anion gap [Moles/Vol] 11 mmol/L Normal 5-15 [facility] Comment on above: Performed By: #### 7 5241-0, 9, PINR, 24704-3, AHP, CMP, THYR, FEPR, CBCA, 91103-0, 10297-3, 1967-11, 8, 6-4 #### [facility] ([id number]) [facility] [facility], [address] [place] [address] AST [Catalytic activity/Vol] 29 U/L Normal 0-41 [facility] Comment on above: Performed By: #### 7 5241-0, 9, PINR, 35867-3, AHP, CMP, THYR, FEPR, CBCA, 51373-0, 34661-7, 1967-, 2283-12, 2275- #### [facility] ([id number]) [address] [place] [address], [address] [place] [address] Bilirubin [Mass/Vol] 1.6 mg/dL High 0.3-1.2 [facility] Comment on above: Performed By: #### 7 5241-0, 9, PINR, 60398-8, AHP, CMP, THYR, FEPR, CBCA, 96544-0, 95409-4, 1967-11, 2283-12, 2275- #### [facility] ([id number]) [address] [place] [address], [address] [place] [address] Calcium [Mass/Vol] 8.6 mg/dL Normal 8.5-10.5 [facility] Comment on above: Performed By: #### 7 5241-0, 9, PINR, 28268-2, AHP, CMP, THYR, FEPR, CBCA, 18252-5, 42183-4, 1967-11, 2283-12, 2275- #### [facility] ([id number]) [address] [facility], [address] [place] [address] Chloride [Moles/Vol] 106 mmol/L Normal 98-109 [facility] Comment on above: Performed By: #### 7 5241-0, 9, PINR, 61473-2, AHP, CMP, THYR, FEPR, CBCA, 72478-9, 11069-9, 1967-11, 2283-12, 2275- #### [facility] ([id number]) [address] [facility], [address] [place] [address] CO2 [Moles/Vol] 27 mmol/L Normal 22-32 [facility] Comment on above: Performed By: #### 7 5241-0, 9, PINR, 30426-5, AHP, CMP, THYR, FEPR, CBCA, 70365-6, 16797-3, 1967-11, 2283-12, 2275- #### [facility] ([id number]) [address] [facility], [address] [address] Creatinine [Mass/Vol] 1.44 mg/dL High 0.60-1.30 [facility] Comment on above: Result Comment: METH OD TRACEABLE TO IDMS STANDARD Performed By: #### 7 5241-0, 9, PINR, 28656-9, AHP, CMP, THYR, FEPR, CBCA, 13507-4, 64077-5, 1967-11, 2283-12, 2275-08 #### [facility] ([id number]) [address] [facility], [address] [address] GFR/1.73 sq M.predicted among non-blacks MDRD (S/P/Bld) [Vol rate/Area] 53 mL/min/{1.73_m2} Low >59 [facility] Comment on above: Result Comment: Reported eGFR is based on the CKD-EPI 2020 equation that does not use a race coefficient. Performed By: #### 7 5241-0, 2131-9, PINR, 17718-1, AHP, CMP, THYR, FEPR, CBCA, 74793-9, 47082-5, 1967-11, 2283-12, 2275- #### [facility] ([id number]) [address] [facility] [address] [place] [address] Glucose [Mass/Vol] 91 mg/dL Normal 65-99 [facility] Comment on above: Performed By: #### 7 5241-0, 9, PINR, 29800-9, AHP, CMP, THYR, FEPR, CBCA, 08619-0, 04094-1, 1967-11, 2283-12, 2275-4 #### [facility] ([id number]) [address] [facility], [address] [place] [address] Potassium [Moles/Vol] 3.3 mmol/L Low 3.5-5.0 [facility] Comment on above: Performed By: #### 7 5241-0, 9, PINR, 06719-3, AHP, CMP, THYR, FEPR, CBCA, 56096-9, 98897-0, 1967-11, 2283-12, 2275- #### [facility] ([id number]) [address] [facility], [address] [place] [address] Protein [Mass/Vol] 5.4 g/dL Low 6.0-8.0 [facility] Comment on above: Performed By: #### 7 5241-0, 9, PINR, 38001-0, AHP, CMP, THYR, FEPR, CBCA, 46953-8, 84933-1, 1967-11, 2283-12, 2275-4 #### [facility] ([id number]) [address] [facility], [address] [place] [address] Sodium [Moles/Vol] 144 mmol/L Normal 134-146 [facility] Comment on above: Performed By: #### 7 5241-0, 9, PINR, 11718-8, AHP, CMP, THYR, FEPR, CBCA, 30710-7, 20931-3, 1967-11, 2283-12, 2275-4 #### [facility] ([id number]) [address], [address] [place] [address] Urea nitrogen [Mass/Vol] 30 mg/dL High 5-[address] [facility] Comment on above: Performed By: #### 7 5241-0, 2132-9, PINR, 17069-4, AHP, CMP, THYR, FEPR, CBCA, 71313-2, 84257-1, 1968-7, 2284-8, 2276-4 #### [facility] ([id number]) [address], [address] [place] [address] CT ABDOMEN AND PELVIS WO CON Ton 06-07-2024 CT ABDOMEN AND PELVIS WO CONT CT ABDOMEN AND PELVIS WO CONT CLINICAL INFORMATION: Abdominal pain radiating to the back, kidney stone suspected. TECHNIQUE: Abdominopelvic CT without contrast. All CT scans at this facility use dose modulation, iterative reconstruction, and/or weight based dosing when appropriate to reduce radiation dose to as low as reasonably achievable. COMPARISON: 07/19/2015. FINDINGS LOWER CHEST: Moderate bilateral pleural effusions with compressive atelectasis. Minor interstitial edema in the lung bases. Coronary artery calcifications. Cardiomegaly. HEPATOBILIARY: Unenhanced liver and gallbladder unremarkable. No biliary dilation. PANCREAS: Unenhanced pancreas unremarkable. No pancreatic ductal dilation. SPLEEN: The unenhanced spleen is within normal limits. ADRENAL GLANDS: The unenhanced adrenal glands are within normal limits. KIDNEYS, URETERS, AND BLADDER: Simple right interpolar renal cyst requires no follow-up. Hyperattenuating 1.6 cm left inferior pole renal cyst appears unchanged from prior. Extensive bilateral perinephric edema. No collecting system dilation or evidence of ureteral calculus. Urinary bladder decompressed by Arenas catheter. GI TRACT AND PERITONEUM: Small and large bowel are normal in caliber. Normal appendix. VASCULATURE: Abdominal aorta is nonaneurysmal. Aortoiliac calcifications are present. LYMPH NODES: Not enlarged. REPRODUCTIVE ORGANS: Prostate calcifications present. MSK: Degenerative changes throughout the spine. Partial osseous fusion across the sacroiliac joints. Mild diffuse edema in the body wall. IMPRESSION: * Moderate bilateral pleural effusions and mild interstitial edema in the lung bases. Additional findings of volume overload including mild body wall edema, retroperitoneal and presacral edema along with trace ascites. Approved by Resident Frederick Crump DO on 06/07/2024 9:47 AM Baldev Christina MD have personally reviewed the image(s) and agree with and/or edited the report 63 Finalized by Baldev Hyde MD on 06/07/2024 10:07 AM [facility] CT Abdomen and Pelvis WO con traston 06-07-2024 CLINICAL INFORMATION: Abdominal pain radiating to the back, kidney stone suspected. TECHNIQUE: Abdominopelvic CT without contrast. All CT scans at this facility use dose modulation, iterative reconstruction, and/or weight based dosing when appropriate to reduce radiation dose to as low as reasonably achievable. COMPARISON: 07/19/2015. FINDINGS LOWER CHEST: Moderate bilateral pleural effusions with compressive atelectasis. Minor interstitial edema in the lung bases. Coronary artery calcifications. Cardiomegaly. HEPATOBILIARY: Unenhanced liver and gallbladder unremarkable. No biliary dilation. PANCREAS: Unenhanced pancreas unremarkable. No pancreatic ductal dilation. SPLEEN: The unenhanced spleen is within normal limits. ADRENAL GLANDS: The unenhanced adrenal glands are within normal limits. KIDNEYS, URETERS, AND BLADDER: Simple right interpolar renal cyst requires no follow-up. Hyperattenuating 1.6 cm left inferior pole renal cyst appears unchanged from prior. Extensive bilateral perinephric edema. No collecting system dilation or evidence of ureteral calculus. Urinary bladder decompressed by Arenas catheter. GI TRACT AND PERITONEUM: Small and large bowel are normal in caliber. Normal appendix. VASCULATURE: Abdominal aorta is nonaneurysmal. Aortoiliac calcifications are present. LYMPH NODES: Not enlarged. REPRODUCTIVE ORGANS: Prostate calcifications present. MSK: Degenerative changes throughout the spine. Partial osseous fusion across the sacroiliac joints. Mild diffuse edema in the body wall. IMPRESSION: * Moderate bilateral pleural effusions and mild interstitial edema in the lung bases. Additional findings of volume overload including mild body wall edema, retroperitoneal and presacral edema along with trace ascites. Approved by Resident Frederick Crump DO on 06/07/2024 9:47 AM Baldev Christina MD have personally reviewed the image(s) and agree with and/or edited the report 63 Finalized by Baldev Hyde MD on 06/07/2024 10:07 AM [facility] Baldev Hyde MD - 06/07/2024 CLINICAL INFORMATION: Abdominal pain radiating to the back, kidney stone suspected. TECHNIQUE: Abdominopelvic CT without contrast. All CT scans at this facility use dose modulation, iterative reconstruction, and/or weight based dosing when appropriate to reduce radiation dose to as low as reasonably achievable. COMPARISON: 07/19/2015. FINDINGS LOWER CHEST: Moderate bilateral pleural effusions with compressive atelectasis. Minor interstitial edema in the lung bases. Coronary artery calcifications. Cardiomegaly. HEPATOBILIARY: Unenhanced liver and gallbladder unremarkable. No biliary dilation. PANCREAS: Unenhanced pancreas unremarkable. No pancreatic ductal dilation. SPLEEN: The unenhanced spleen is within normal limits. ADRENAL GLANDS: The unenhanced adrenal glands are within normal limits. KIDNEYS, URETERS, AND BLADDER: Simple right interpolar renal cyst requires no follow-up. Hyperattenuating 1.6 cm left inferior pole renal cyst appears unchanged from prior. Extensive bilateral perinephric edema. No collecting system dilation or evidence of ureteral calculus. Urinary bladder decompressed by Arenas catheter. GI TRACT AND PERITONEUM: Small and large bowel are normal in caliber. Normal appendix. VASCULATURE: Abdominal aorta is nonaneurysmal. Aortoiliac calcifications are present. LYMPH NODES: Not enlarged. REPRODUCTIVE ORGANS: Prostate calcifications present. MSK: Degenerative changes throughout the spine. Partial osseous fusion across the sacroiliac joints. Mild diffuse edema in the body wall. IMPRESSION: * Moderate bilateral pleural effusions and mild interstitial edema in the lung bases. Additional findings of volume overload including mild body wall edema, retroperitoneal and presacral edema along with trace ascites. Approved by Resident Frederick Crump DO on 06/07/2024 9:47 AM Baldev Christina MD have personally reviewed the image(s) and agree with and/or edited the report 63 Finalized by Baldev Hyde MD on 06/07/2024 10:07 AM [facility] Study observation (narrative) [facility] CT Abdomen and Pelvis WO con trastOrdered By: Baldev Hyde on 06-07-2024 [facility] Work Phone: CT BRAIN WO CONTon CT BRAIN WO CONT CT BRAIN WO CONT CT HEAD WITHOUT IV CONTRAST CLINICAL STATEMENT:Patient demonstrates some possible altered consciousness. Head trauma, minor (Age >= 65y); Fall in hospital, on heparin infusion Comparison study: 06/05/2024 TECHNIQUE: Axial views were obtained at 2.5 mm interval through the head without IV contrast. Automatic dose exposure reduction technique utilized. FINDINGS: The midline structures are not deviated. The ventricular system is prominent.. The lanier and white matter show periventricular white matter disease of a chronic nature with basal ganglia calcification noted. There is gliosis in the right posterior temporal region consistent with an old infarct. This extends to the occipital region. There are extra-axial fluid collections overlying the cerebral hemispheres that was not seen on the study from 2 days previous. These measure approximately 4 to 5 mm in maximum width without significant mass effect. The posterior fossa is unremarkable. No features of raised intracranial pressure.No acute intracranial bleed. The IACs are unremarkable. The cerebellopontine angles are unremarkable. The temporomandibular joints show no abnormality. The osseous structures in the skull base and in the calvarium show no definite abnormality. The orbits are normal. The paranasal sinuses are clear. The mastoid air cells are clear. IMPRESSION: Chronic small vessel white matter disease. 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 Bilateral subdural fluid collections/hygrom as without significant mass effect. These could be part of idiopathic intracranial hypotension. All CT scans at this facility use dose modulation, iterative reconstruction, and/or weight based dosing when appropriate to reduce radiation dose to as low as reasonably achievable. 67 Finalized by Gab Clay MD on 06/07/2024 10:01 PM Normal [facility] CT Head WO contraston 2024 CT HEAD WITHOUT IV CONTRAST CLINICAL STATEMENT:Patient demonstrates some possible altered consciousness. Head trauma, minor (Age >= 65y); Fall in hospital, on heparin infusion Comparison study: 06/05/2024 TECHNIQUE: Axial views were obtained at 2.5 mm interval through the head without IV contrast. Automatic dose exposure reduction technique utilized. FINDINGS: The midline structures are not deviated. The ventricular system is prominent.. The lanier and white matter show periventricular white matter disease of a chronic nature with basal ganglia calcification noted. There is gliosis in the right posterior temporal region consistent with an old infarct. This extends to the occipital region. There are extra-axial fluid collections overlying the cerebral hemispheres that was not seen on the study from 2 days previous. These measure approximately 4 to 5 mm in maximum width without significant mass effect. The posterior fossa is unremarkable. No features of raised intracranial pressure.No acute intracranial bleed. The IACs are unremarkable. The cerebellopontine angles are unremarkable. The temporomandibular joints show no abnormality. The osseous structures in the skull base and in the calvarium show no definite abnormality. The orbits are normal. The paranasal sinuses are clear. The mastoid air cells are clear. IMPRESSION: Chronic small vessel white matter disease. 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 Bilateral subdural fluid collections/hygrom as without significant mass effect. These could be part of idiopathic intracranial hypotension. All CT scans at this facility use dose modulation, iterative reconstruction, and/or weight based dosing when appropriate to reduce radiation dose to as low as reasonably achievable. 67 Finalized by Gab Clay MD on 06/07/2024 10:01 PM [facility] Gab Clay MD - 06/07/2024 CT HEAD WITHOUT IV CONTRAST CLINICAL STATEMENT:Patient demonstrates some possible altered consciousness. Head trauma, minor (Age >= 65y); Fall in hospital, on heparin infusion Comparison study: 06/05/2024 TECHNIQUE: Axial views were obtained at 2.5 mm interval through the head without IV contrast. Automatic dose exposure reduction technique utilized. FINDINGS: The midline structures are not deviated. The ventricular system is prominent.. The lanier and white matter show periventricular white matter disease of a chronic nature with basal ganglia calcification noted. There is gliosis in the right posterior temporal region consistent with an old infarct. This extends to the occipital region. There are extra-axial fluid collections overlying the cerebral hemispheres that was not seen on the study from 2 days previous. These measure approximately 4 to 5 mm in maximum width without significant mass effect. The posterior fossa is unremarkable. No features of raised intracranial pressure.No acute intracranial bleed. The IACs are unremarkable. The cerebellopontine angles are unremarkable. The temporomandibular joints show no abnormality. The osseous structures in the skull base and in the calvarium show no definite abnormality. The orbits are normal. The paranasal sinuses are clear. The mastoid air cells are clear. IMPRESSION: Chronic small vessel white matter disease. 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 Bilateral subdural fluid collections/hygrom as without significant mass effect. These could be part of idiopathic intracranial hypotension. All CT scans at this facility use dose modulation, iterative reconstruction, and/or weight based dosing when appropriate to reduce radiation dose to as low as reasonably achievable. 67 Finalized by Gab Clay MD on 06/07/2024 10:01 PM [facility] Radiology Study observation (narrative) [facility] Cobalamin (Vitamin B12) [Mas s/Vol]on 06-07-2024 Interpretation and review of laboratory results Abnormal [facility] Comprehensive metabolic pane erwin 06-07-2024 Albumin [Mass/Vol] 2.9 g/dL Low 3.2 - 5.3 g/dL [facility] ALP [Catalytic activity/Vol] 60 U/L 39 - 130 U/L [facility] ALT No additional P-5'-P [Catalytic activity/Vol] 21 U/L 0 - 40 U/L [facility] Anion gap [Moles/Vol] 11 mmol/L 5 - 15 mmol/L [facility] AST [Catalytic activity/Vol] 29 U/L 0 - 41 U/L [facility] Bilirubin [Mass/Vol] 1.6 mg/dL High 0.3 - 1 .2 mg/dL [facility] Calcium [Mass/Vol] 8.6 mg/dL 8.5 - 10. 5 mg/dL [facility] Chloride [Moles/Vol] 106 mmol/L 98 - 10 9 mmol/L [facility] CO2 [Moles/Vol] 27 mmol/L 22 - 32 mmol/L [facility] Creatinine [Mass/Vol] 1.44 mg/dL High 0.60 - 1.30 mg/dL [facility] Comment on above: METHOD TRACEABLE TO IDDC STANDARD eGFR (CKD-EPI)non-race dependent 53 Low - PINF [facility] Comment on above: Reported eGFR is based on the CKD-EPI 2020 equation that does not use a race coefficient. Glucose [Mass/Vol] 91 mg/dL 65 - 99 mg/dL [facility] Potassium [Moles/Vol] 3.3 mmol/L Low 3.5 - 5.0 mmol/L [facility] Protein [Mass/Vol] 5.4 g/dL Low 6.0 - 8.0 g/dL [facility] Sodium [Moles/Vol] 144 mmol/L 134 - 146 mmol/L [facility] Urea nitrogen [Mass/Vol] 30 mg/dL High 5 - 27 mg/dL [facility] DRUG SCREEN, URINEon 025 AMPHETAMINE/METHAMP Negative Normal NEG [facility] Comment on above: Result Comment: AMPH /METH screening cut off = 1000 ng/mL Performed By: #### 7 5241-0, 2131-9, PINR, 04344-5, AHP, CMP, THYR, FEPR, CBCA, 78599-7, 33279-7, 1967-11, 2283-12, 2275-08 #### [facility] ([id number]) [address] [facility], [address] [place] [address] BARBITURATES Negative Normal NEG [facility] Comment on above: Result Comment: Mimi iturates screening cut off value = 200 ng/mL Performed By: #### 7 5241-0, 2131-9, PINR, 68204-3, AHP, CMP, THYR, FEPR, CBCA, 13776-4, 04613-7, 1967-11, 2283-12, 2275-08 #### [facility] ([id number]) [address] [facility], [address] [place] [address] BENZODIAZEPINES Negative Normal NEG [facility] Comment on above: Result Comment: Emmanuel odiazepines screening cut off value = 200 ng/mL Performed By: #### 7 5241-0, 2131-9, PINR, 41557-9, AHP, CMP, THYR, FEPR, CBCA, 42991-2, 56065-5, 1967-11, 2283-12, 2275-08 #### [facility] ([id number]) [address], [address] [place] [address] CANNABINOIDS Positive Abnormal NEG [facility] Comment on above: Result Comment: Conf irmation available upon request. Cannabinoids/THC screening cut off value = 50 ng/mL Performed By: #### 7 5241-0, 9, PINR, 39937-4, AHP, CMP, THYR, FEPR, CBCA, 56151-6, 82035-3, 1967-11, 2283-12, 2275-08 #### [facility] ([id number]) [address] [facility], [address] [place] [address] COCAINE METABOLITE Negative Normal NEG [facility] Comment on above: Result Comment: Coca ine screening cut off value = 300 ng/mL Performed By: #### 7 5241-0, 9, PINR, 23058-3, AHP, CMP, THYR, FEPR, CBCA, 75995-2, 09598-3, 1967-11, 2283-12, 2275-08 #### [facility] ([id number]) [address] [facility], [address] [place] [address] ECSTASY Negative Normal NEG [facility] Comment on above: Result Comment: Ecst asy screening cut off value = 500 ng/mL This report is intended for use in clinical monitoring or management of patients. Performed By: #### 7 5241-0, 9, PINR, 68980-5, AHP, CMP, THYR, FEPR, CBCA, 06767-4, 01358-1, 1967-11, 2283-12, 2275-08 #### [facility] ([id number]) [address], [address] [place] [address] METHADONE Negative Normal NEG [facility] Comment on above: Result Comment: Meth adone screening cut off value = 300 ng/mL. Performed By: #### 7 5241-0, 2132-9, PINR, 01323-4, AHP, CMP, THYR, FEPR, CBCA, 39670-6, 22248-1, 1967-11, 2283-12, 2275- #### [facility] ([id number]) [address] [facility], [address] [place] [address] OPIATES Negative Normal NEG [facility] Comment on above: Result Comment: Opia macarena screening cut off value = 300 ng/mL NOTE: This test is used for the detection of codeine, hydrocodone (>1000 ng/mL), morphine and hydromorphone (>900 ng/mL) in urine. Performed By: #### 7 5241-0, 2131-9, PINR, 37449-1, AHP, CMP, THYR, FEPR, CBCA, 06319-5, 71636-1, 1967-11, 2283-12, 2275-08 #### [facility] ([id number]) [facility], [address] [place] [address] OXYCODONE Negative Normal NEG [facility] Comment on above: Result Comment: Oxyc odone screening cut off value = 300 ng/mL NOTE: This test is used for the detection of oxycodone and oxymorphone in urine. Performed By: #### 7 5241-0, 2131-9, PINR, 92460-6, AHP, CMP, THYR, FEPR, CBCA, 14428-4, 69061-5, 1967-11, 2283-12, 2275- #### [facility] ([id number]) [address] [facility], [address] [place] [address] PHENCYCLIDINE Negative Normal NEG [facility] Comment on above: Result Comment: Phen cyclidine screening cut off value = 25 ng/mL Performed By: #### 7 5241-0, 2131-9, PINR, 26149-6, AHP, CMP, THYR, FEPR, CBCA, 68748-5, 26893-5, 1967-11, 2283-12, 2275- #### [facility] ([id number]) [address] [facility], [address] [place] [address] Drug Screen, Urineon 025 Amphetamines Screen method >1000 ng/mL Ql (U) Negative Negative^N [facility] Comment on above: AMPH/METH screening cut off = 1000 ng/mL Barbiturates Screen Ql (U) Negative N egative^N [facility] Comment on above: Barbiturates screeni ng cut off value = 200 ng/mL Benzodiazepines Ql (U) Negative Negat sole^N [facility] Comment on above: Benzodiazepines scre ening cut off value = 200 ng/mL Cocaine Ql (U) Negative Negative^N [facility] Comment on above: Cocaine screening cu t off value = 300 ng/mL Interpretation and review of laboratory results Abnormal [facility] Methadone Screen Ql (U) Negative Nega tive^N [facility] Comment on above: Methadone screening cut off value = 300 ng/mL. Methylenedioxymethamphetami ne Screen Ql (U) Negative Negative^N [facility] Comment on above: Ecstasy screening cu t off value = 500 ng/mL This report is intended for use in clinical monitoring or management of patients. Opiates Screen Ql (U) Negative Negati ve^N [facility] Comment on above: Opiates screening cu t off value = 300 ng/mL NOTE: This test is used for the detection of codeine, hydrocodone (>1000 ng/mL), morphine and hydromorphone (>900 ng/mL) in urine. oxyCODONE Ql (U) Negative Negative^N [facility] Comment on above: Oxycodone screening cut off value = 300 ng/mL NOTE: This test is used for the detection of oxycodone and oxymorphone in urine. Phencyclidine Screen method >25 ng/mL Ql (U) Negative Negative^N [facility] Comment on above: Phencyclidine screen ing cut off value = 25 ng/mL Tetrahydrocannabinol Screen method >50 ng/mL Ql (U) Positive Abnormal Negative^N [facility] Comment on above: Confirmation availab le upon request. Cannabinoids/THC screening cut off value = 50 ng/mL [facility] EEGon 06-07-2024 Images from the original result were not included. History This is a routine EEG in a patient with altered mental status. Procedure This is a standard digital EEG performed in the 10-20 International system and was reviewed with multiple reformattable montages Technical Description There is no well defined posterior dominant rhythm noted. The background is primarily composed of semirhythmical 20-40 uv delta and theta range frequencies. Semi rhythmical theta and delta range activity is intermixed with occasional beta activity noted over the frontal and central region. There is intermittent attenuation of the background frequencies but no clear state related changes are noted. Hyperventilation is deferred. Photic stimulation fails to elicit a sustained driving response. There is no evidence of definite epileptiform activity during this study Clinical Interpretation This EEG in the awake state is abnormal due to the presence of moderate to severe generalized background slowing suggestive of moderate to severe bi-hemispheric cerebral dysfunction that can be seen in post ictal states, metabolic, hypoxic or toxic encephalopathies, sedative medication use or primary neurological disorders. Bertha Oakley MD Educational Consultant Neurology/Neurophy siology [facility] MANUALLY TRANSCRIBED RESULTS EEGOrdered By: Bertha Oakley on 06-07-2024 [facility] Work Phone: FERRITINon 06-07-2024 Ferritin [Mass/Vol] 41 ng/mL Normal 24-336 [facility] Comment on above: Performed By: #### 7 5241-0, 2132-9, PINR, 09107-4, AHP, CMP, THYR, FEPR, CBCA, 53085-2, 19649-6, 1968-7, 2284-8, 2276-4 #### [facility] ([id number]) [address] [facility], [address] [place] [address] Ferritinon 06-07-2024 Ferritin [Mass/Vol] 41 ng/mL 24 - 336 ng/mL [facility] Ferritin [Mass/Vol]on 2024 [facility] Folateon 06-07-2024 Folate [Mass/Vol] 22.7 ng/mL 5.8 - PINF ng/mL [facility] Comment on above: NEW REFERENCE RANGE Folate [Mass/Vol]on 06-07-19 25 [facility] FOLIC ACID 22.7 ng/mL Normal >5.8 [facility] Comment on above: Result Comment: NEW REFERENCE RANGE Performed By: #### 7 5241-0, 2-9, PINR, 64412-5, AHP, CMP, THYR, FEPR, CBCA, 80275-5, 19788-1, 1967-11, 2283-12, 2275-08 #### [facility] ([id number]) [address] [facility], [address] [place] [address] Glucose Glucometer (BldC) [M ass/Vol]on 06-07-2024 Glucose [Mass/Vol] 86 mg/dL 65 - 99 mg/dL [facility] Glucose [Mass/Vol] 86 mg/dL Normal 65-99 [facility] Heparin unfractionated Chrom ogenic method Qn (PPP)on 06-07-2024 Interpretation and review of laboratory results Abnormal [facility] ANTI XA UFH 0.14 IU/mL Low 0.30-0.70 [facility] Comment on above: Result Comment: Opti mal time for testing is 6 hrs post dosage This test is specific for monitoring patients on UFH, and is not recommended for use with other Anti-Xa medications. Performed By: #### 7 5241-0, 2131-9, PINR, 09688-0, AHP, CMP, THYR, FEPR, CBCA, 43196-8, 99527-1, 1967-11, 2283-12, 2275- #### [facility] ([id number]) [address] [facility], [address] [place] [address] Hepatitis panel, acuteon HAV IgM IA Ql Non-Reactive Non-Reacti ve^Non-Maxwell ctive [facility] Comment on above: NEW TEST METHOD HBV core IgM IA Ql Non-Reactive Non-React i ve^Non-Maxwell ctive [facility] Comment on above: NEW TEST METHOD HBV surface Ag IA Ql Non-Reactive Non-Maxwell cti ve^Non-Umm ctive [facility] Comment on above: NEW TEST METHOD HCV Ab IA Ql Non-Reactive Non-Reacti ve^Non-Maxwell ctive [facility] Comment on above: NEW TEST METHOD NOTE If recent infection suspected, recommend repeat testing (>2 months). Rptmaf-kj-jrqqhr ratio is <1.00. [facility] IRON PROFILEon 06-07-2024 Iron [Mass/Vol] 16 ug/dL Low 50-212 [facility] Comment on above: Performed By: #### 7 5241-0, 2131-9, PINR, 85794-7, AHP, CMP, THYR, FEPR, CBCA, 98316-6, 08454-4, 1967-, 2283-8, 2275- #### [facility] ([id number]) [address], [address] [place] [address] IRON BINDING 336 ug/dL Normal 250-425 [facility] Comment on above: Performed By: #### 7 5241-0, 2131-9, PINR, 72633-9, AHP, CMP, THYR, FEPR, CBCA, 88468-3, 70936-2, 1967-, 2283-, 2275- #### [facility] ([id number]) [address], [address] [place] [address] IRON SATURATION 5 % SATURATION Low 20-50 [facility] Comment on above: Performed By: #### 7 5241-0, 2131-9, PINR, 60429-8, AHP, CMP, THYR, FEPR, CBCA, 45175-6, 11586-4, 1967-, 2283-, 2275- #### [facility] ([id number]) [address], [address] [place] [address] Iron and TIBCon 06-07-2024 Interpretation and review of laboratory results Abnormal [facility] Iron [Mass/Vol] 16 ug/dL Low 50 - 212 ug/dL [facility] Iron binding capacity [Mass/Vol] 336 ug/dL 250 - 425 ug/dL [facility] Iron saturation [Mass fraction] 5 Low [facility] MAGNESIUMon 06-07-2024 Magnesium [Mass/Vol] 2.7 mg/dL High 1.8-2.6 [facility] Comment on above: Performed By: #### 7 5241-0, 2131-9, PINR, 08089-5, AHP, CMP, THYR, FEPR, CBCA, 82996-3, 09411-7, 1968-7, 2284-8, 2276-4 #### [facility] ([id number]) [address] [facility], [address] [place] [address] Magnesium [Mass/Vol] 1.5 mg/dL Low 1.8-2.6 [facility] Comment on above: Performed By: #### 7 5241-0, 2131-9, PINR, 00258-3, AHP, CMP, THYR, FEPR, CBCA, 17436-4, 92771-2, 1967-, 2283-8, 2276-4 #### [facility] ([id number]) [address] [facility], [address] [place] [address] MR MRCP WITH MRI ABD WO CONT on 06-07-2024 MR MRCP WITH MRI ABD WO CONT MR MRCP WITH MRI ABD WO CONT History: Recent with history of jaundice. Exam/Technique: Multiplanar, multisequence MR imaging is obtained of the MRCP and MRI abdomen without intravenous contrast. Routine multiplanar multisequence MR imaging of the abdomen was performed prior to and following uneventful administration of intravenous gadolinium contrast. M.R.C.P. was performed with 3-D volume rendered reformatted and maximum intesntiy projection rotational images for the evaluation of the pancreatic and biliary ductal system at the MR console. Comparison: CT abdomen pelvis dated 06/07/2024. Ultrasound abdomen dated 06/06/2024. Findings: Lack of IV contrast compromises detail. Motion artifact compromises detail. No evidence of fatty infiltration of the liver. No focal liver lesions. CBD not dilated and measures Bibasal pleural effusions. Body wall edema. Mesenteric edema noted. Generalized bone marrow signal is appropriate with degenerative changes. The gallbladder is distended and demonstrates a fluid sludge level. There is no clear evidence of biliary dilatation. There is no evidence of dilatation of the pancreatic duct. No obvious pancreatic mass. Cyst formation in the right kidneys. IMPRESSION: The examination is limited due to motion artifact and lack of contrast. There is significant edema of the mesenteric fat planes as well as significant pleural effusions. There is a no biliary duct dilatation but there is sludge in the gallbladder. No biliary duct dilatation. 67 Finalized by Gab Clay MD on 06/07/2024 8:32 PM [facility] MRCP Abdomen WO contraston 0 06-07-2024 History: Recent with history of jaundice. Exam/Technique: Multiplanar, multisequence MR imaging is obtained of the MRCP and MRI abdomen without intravenous contrast. Routine multiplanar multisequence MR imaging of the abdomen was performed prior to and following uneventful administration of intravenous gadolinium contrast. M.R.C.P. was performed with 3-D volume rendered reformatted and maximum intesntiy projection rotational images for the evaluation of the pancreatic and biliary ductal system at the MR console. Comparison: CT abdomen pelvis dated 06/07/2024. Ultrasound abdomen dated 06/06/2024. Findings: Lack of IV contrast compromises detail. Motion artifact compromises detail. No evidence of fatty infiltration of the liver. No focal liver lesions. CBD not dilated and measures Bibasal pleural effusions. Body wall edema. Mesenteric edema noted. Generalized bone marrow signal is appropriate with degenerative changes. The gallbladder is distended and demonstrates a fluid sludge level. There is no clear evidence of biliary dilatation. There is no evidence of dilatation of the pancreatic duct. No obvious pancreatic mass. Cyst formation in the right kidneys. IMPRESSION: The examination is limited due to motion artifact and lack of contrast. There is significant edema of the mesenteric fat planes as well as significant pleural effusions. There is a no biliary duct dilatation but there is sludge in the gallbladder. No biliary duct dilatation. 67 Finalized by Gab Caly MD on 06/07/2024 8:32 PM SECTRAGab Pérez MD - 06/07/2024 History: Recent with history of jaundice. Exam/Technique: Multiplanar, multisequence MR imaging is obtained of the MRCP and MRI abdomen without intravenous contrast. Routine multiplanar multisequence MR imaging of the abdomen was performed prior to and following uneventful administration of intravenous gadolinium contrast. M.R.C.P. was performed with 3-D volume rendered reformatted and maximum intesntiy projection rotational images for the evaluation of the pancreatic and biliary ductal system at the MR console. Comparison: CT abdomen pelvis dated 06/07/2024. Ultrasound abdomen dated 06/06/2024. Findings: Lack of IV contrast compromises detail. Motion artifact compromises detail. No evidence of fatty infiltration of the liver. No focal liver lesions. CBD not dilated and measures Bibasal pleural effusions. Body wall edema. Mesenteric edema noted. Generalized bone marrow signal is appropriate with degenerative changes. The gallbladder is distended and demonstrates a fluid sludge level. There is no clear evidence of biliary dilatation. There is no evidence of dilatation of the pancreatic duct. No obvious pancreatic mass. Cyst formation in the right kidneys. IMPRESSION: The examination is limited due to motion artifact and lack of contrast. There is significant edema of the mesenteric fat planes as well as significant pleural effusions. There is a no biliary duct dilatation but there is sludge in the gallbladder. No biliary duct dilatation. 67 Finalized by Gab Clay MD on 06/07/2024 8:32 PM [facility] Radiology Study observation (narrative) [facility] MRCP Abdomen WO contrastOrde red By: Gab Clay on 06-07-2024 [facility] Work Phone: Magnesiumon 06-07-2024 Magnesium [Mass/Vol] 2.7 mg/dL High 1.8 - 2 .6 mg/dL [facility] Magnesium [Mass/Vol] 1.5 mg/dL Low 1.8 - 2 .6 mg/dL [facility] No Panel Informationon 06-07 Interpretation and review of laboratory results Abnormal [facility] Interpretation and review of laboratory results Abnormal [facility] POTASSIUMon 06-07-2024 Potassium [Moles/Vol] 3.2 mmol/L Low 3.5-5.0 [facility] Comment on above: Performed By: #### 7 5241-0, 2131-9, PINR, 39564-5, AHP, CMP, THYR, FEPR, CBCA, 29558-0, 95143-0, 1967-11, 2283-12, 2275- #### [facility] ([id number]) [address] [facility], [address] [place] [address] PROTIME AND INRon 06-07-2024 INR Coag (PPP) [Relative time] 1.3 {INR} High 0.8-1.1 [facility] Comment on above: Performed By: #### 7 5241-0, 9, PINR, 84078-2, AHP, CMP, THYR, FEPR, CBCA, 09639-8, 25721-8, 1967-11, 2283-12, 2275-08 #### [facility] ([id number]) [address] [facility], [address] [place] [address] PT Coag (PPP) [Time] 15.5 s High 9.8-13.2 [facility] Comment on above: Performed By: #### 7 5241-0, 9, PINR, 71545-1, AHP, CMP, THYR, FEPR, CBCA, 22905-2, 59280-9, 1967-11, 2283-12, 2275- #### [facility] ([id number]) [address] [facility], [address] [place] [address] Potassiumon 06-07-2024 Potassium [Moles/Vol] 3.2 mmol/L Low 3.5 - 5.0 mmol/L [facility] Procalcitoninon 06-07-2024 Procalcitonin IA [Mass/Vol] 0.27 ng/mL High NINF - 0.05 ng/mL [facility] Comment on above: NOTE <0.50 ng/mL - Low risk of severe sepsis and/or septic shock. <2.00 ng/mL - Recommend retesting within 6-24 hours. >2.00 ng/mL - High risk of sepsis and/or septic shock. Procalcitonin IA [Mass/Vol]o n 06-07-2024 Interpretation and review of laboratory results Abnormal [facility] PROCALCITONIN 0.27 ng/mL High <0.05 [facility] Comment on above: Result Comment: NOTE <0.50 ng/mL - Low risk of severe sepsis and/or septic shock. <2.00 ng/mL - Recommend retesting within 6-24 hours. >2.00 ng/mL - High risk of sepsis and/or septic shock. Performed By: #### 7 5241-0, 2131-9, PINR, 80826-7, AHP, CMP, THYR, FEPR, CBCA, 04031-2, 16706-4, 1967-, 2283-, 2275-08 #### [facility] ([id number]) [address] [facility], [address] [place] [address] Protime & INRon 06-07-2024 INR Coag (PPP) [Relative time] 1.3 {INR} High [facility] Interpretation and review of laboratory results Abnormal [facility] PT Coag (PPP) [Time] 15.5 s High [facility] THYROID PROFILEon 06-07-2024 Free T4 [Mass/Vol] 1.08 ng/dL Normal 0.61-1.60 [facility] Comment on above: Performed By: #### 7 5241-0, 2-9, PINR, 67571-6, AHP, CMP, THYR, FEPR, CBCA, 90365-4, 20763-6, 1967-11, 2283-12, 2275- #### [facility] ([id number]) [address], [address] [place] [address] TSH 2.40 uIU/mL Normal 0.49-4.67 [facility] Comment on above: Performed By: #### 7 5241-0, 2131-9, PINR, 25727-9, AHP, CMP, THYR, FEPR, CBCA, 21045-1, 41574-1, 1967-, 2283-, 6-4 #### [facility] ([id number]) [address], [address] [place] [address] Thyroid profile includes TSH FT4on 06-07-2024 Free T4 [Mass/Vol] 1.08 ng/dL 0.61 - 1.60 ng/dL [facility] TSH Qn 2.4 m[IU]/L [facility] URINALYSISon 06-07-2024 Bilirubin Ql (U) Negative Normal NEG [facility] Comment on above: Performed By: #### 7 5241-0, 9, PINR, 55960-5, AHP, CMP, THYR, FEPR, CBCA, 12667-2, 43299-8, 1967-11, 2283-12, 2275- #### [facility] ([id number]) [address], [address] [place] [address] BLOOD/HGB Large Abnormal NEG [facility] Comment on above: Performed By: #### 7 5241-0, 9, PINR, 13949-5, AHP, CMP, THYR, FEPR, CBCA, 13532-7, 49364-1, 1967-11, 2283-12, 2275-4 #### [facility] ([id number]) [address], [address] [place] [address] Color (U) YELLOW Normal YELLOW [facility] Comment on above: Performed By: #### 7 5241-0, 2131-9, PINR, 35876-8, AHP, CMP, THYR, FEPR, CBCA, 91739-9, 23479-1, 1967-11, 2283-12, 6-4 #### [facility] ([id number]) [address], [address] [place] [address] Glucose Ql (U) Negative Normal NEG [facility] Comment on above: Performed By: #### 7 5241-0, 2131-9, PINR, 13953-7, AHP, CMP, THYR, FEPR, CBCA, 54079-5, 19222-3, 1967-7, 2283-8, 6-4 #### [facility] ([id number]) [address], [address] [place] [address] Ketones Ql (U) Trace Abnormal NEG [facility] Comment on above: Performed By: #### 7 5241-0, 2131-9, PINR, 52548-7, AHP, CMP, THYR, FEPR, CBCA, 14487-7, 95587-7, 1967-, 2283-8, 6-4 #### [facility] ([id number]) [address], [address] [place] [address] Leukocyte esterase Test strip Ql (U) Negative Normal NEG [facility] Comment on above: Performed By: #### 7 5241-0, 2131-9, PINR, 72941-7, AHP, CMP, THYR, FEPR, CBCA, 09281-1, 51327-5, 1967-, 2283-8, 6-4 #### [facility] ([id number]) [address], [address] [place] [address] MUCOUS PRESENT Abnormal NONE [facility] Comment on above: Performed By: #### 7 5241-0, 2131-9, PINR, 12969-4, AHP, CMP, THYR, FEPR, CBCA, 85940-9, 79518-4, 1967-, 2283-, 6-4 #### [facility] ([id number]) [address], [address] [place] [address] Nitrite Ql (U) Negative Normal NEG [facility] Comment on above: Performed By: #### 7 5241-0, 2132-9, PINR, 27417-1, AHP, CMP, THYR, FEPR, CBCA, 77507-1, 10430-9, 1967-11, 2283-12, 2275- #### [facility] ([id number]) [address], [address] [place] [address] pH (U) 6.5 [pH] Normal 5.0-8.5 [facility] Comment on above: Performed By: #### 7 5241-0, 9, PINR, 68868-1, AHP, CMP, THYR, FEPR, CBCA, 71007-3, 68853-2, 1967-11, 2283-12, 2275- #### [facility] ([id number]) [address] [facility], [address] [place] [address] Protein Ql (U) 30 mg/dL Abnormal NEG [facility] Comment on above: Performed By: #### 7 5241-0, 9, PINR, 01044-0, AHP, CMP, THYR, FEPR, CBCA, 71230-0, 89787-3, 1967-11, 2283-12, 2275- #### [facility] ([id number]) [address] [facility], [address] [place] [address] R.B.CELLS 158 /hpf High 0-5 [facility] Comment on above: Performed By: #### 7 5241-0, 9, PINR, 47555-9, AHP, CMP, THYR, FEPR, CBCA, 57534-2, 38408-0, 1967-11, 2283-12, 2275- #### [facility] ([id number]) [address], [address] [place] [address] Specific gravity (U) [Rel density] 1.011 Normal 1.003-1.03 5 [facility] Comment on above: Performed By: #### 7 5241-0, 9, PINR, 97992-5, AHP, CMP, THYR, FEPR, CBCA, 89353-7, 91612-1, 1967-, 2283-12, 2275- #### [facility] ([id number]) [address], [address] [place] [address] TURBIDITY CLEAR Normal CLEAR [facility] Comment on above: Performed By: #### 7 5241-0, 9, PINR, 80286-7, AHP, CMP, THYR, FEPR, CBCA, 80708-6, 36144-3, 1967-, 2283-, 2275- #### [facility] ([id number]) [address] [facility], [address] [place] [address] Urobilinogen (U) [Mass/Vol] mg/dL Normal <1.1 [facility] Comment on above: Performed By: #### 7 5241-0, 2132-01, PINR, 14939-4, AHP, CMP, THYR, FEPR, CBCA, 75320-2, 91407-9, 1967-11, 2283-12, 2275- #### [facility] ([id number]) [address] [facility], [address] [place] [address] W.B.CELLS 2 /hpf Normal 0-5 [facility] Comment on above: Performed By: #### 7 5241-0, 9, PINR, 86498-1, AHP, CMP, THYR, FEPR, CBCA, 15546-0, 29801-6, 1967-11, 2283-12, 2275- #### [facility] ([id number]) [address], [address] [place] [address] URINE CULTUREon 06-07-2024 Bacteria identified Cx Nom (U) CULTURE RESULTS NO GROWTH AT <1000 CFU/mL Normal [facility] Comment on above: Performed By: #### 7 5241-0, 2132-9, PINR, 92579-7, AHP, CMP, THYR, FEPR, CBCA, 23493-0, 31839-9, 1967-11, 2283-12, 2275- #### [facility] ([id number]) [address] [facility], [address] [place] [address] Urinalysison 06-07-2024 Bilirubin Ql (U) Negative Negative^N egative [facility] [facility] Color (U) YELLOW YELLOW^YEL LOW [facility] Glucose (U) [Mass/Vol] Negative Negat sole^N egative mg/dL [facility] Hemoglobin Auto test strip Ql (U) Large Abnormal Negative^N egative [facility] Interpretation and review of laboratory results Abnormal [facility] Ketones (U) [Mass/Vol] Trace Abnormal Negat sole^N egative mg/dL [facility] Leukocyte esterase Auto test strip Ql (U) Negative Negative^N egative [facility] Mucus Ql (Urine sed) PRESENT Abnormal NONE^NONE [facility] Nitrite Auto test strip Ql (U) Negative Negative^N egative [facility] pH (U) 6.5 [pH] 5.0 - 8.5 [facility] Protein (U) [Mass/Vol] 30 mg/dL Abnormal Negat sole^N egative [facility] RBC Auto (Urine sed) [#/Area] 158 High [facility] Specific gravity Refractometry automated (U) [Rel density] 1.011 1.003 - 1.035 [facility] Turbidity Ql (U) CLEAR CLEAR^HERLINDA R [facility] Urobilinogen Qn (U) NINF [facility] WBC Auto (Urine sed) [#/Area] 2 [facility] VITAMIN B12on 06-07-2024 Cobalamin (Vitamin B12) [Mass/Vol] pg/mL High 180-914 [facility] Comment on above: Performed By: #### 7 5241-0, 9, PINR, 42361-2, AHP, CMP, THYR, FEPR, CBCA, , 61669-7, 1967-11, 2283-12, 2275-08 #### [facility] ([id number]) [address], [address] [place] [address] Vitamin B12on 06-07-2024 Cobalamin (Vitamin B12) [Mass/Vol] pg/mL High 180 - 914 pg/mL [facility] aPTT Coag (PPP) [Time]on Interpretation and review of laboratory results Abnormal [facility] aPTT Coag (Bld) [Time] 52 s High 26-37 Pr [facility] Comment on above: Performed By: #### 7 5241-0, 9, PINR, 51946-6, AHP, CMP, THYR, FEPR, CBCA, 62564-9, 80151-0, 1967-11, 2283-12, 2275- #### [facility] ([id number]) [address], [address] [place] [address] aPTT Coag (Bld) [Time] 37 s Normal 26-37 Pr [facility] Comment on above: Performed By: #### 7 5241-0, 9, PINR, 24078-0, AHP, CMP, THYR, FEPR, CBCA, 93670-2, 71786-0, 1967-11, 2283-12, 2275- #### [facility] ([id number]) [address], [address] [place] [address] ALL CBC WITH AUTO DIFFon BASOPHILS ABSOLUTE AUTO 0.1 N [facility] Basophils/100 WBC (Bld) 1.4 % 0.2 - 2.0 % [facility] Eosinophils/100 WBC (Bld) 1.6 % 0. 9 - 7.0 % [facility] Erythrocyte distribution width (RBC) [Ratio] 19.9 % High 11.0 - 15.0 % [facility] Hematocrit (Bld) [Volume fraction] 39.1 % Low 42.0 - 54.0 % [facility] Hemoglobin (Bld) [Mass/Vol] 11.6 g/dL Low 14.0 - 18.0 g/dL [facility] IMMATURE GRANULOCYTES ABS AUTO 0.02 [facility] Immature granulocytes/100 WBC (Bld) 0.2 % 0.0 - 0.5 % [facility] Interpretation and review of laboratory results Abnormal [facility] LYMPHOCYTES ABSOLUTE AUTO 1.5 [facility] Lymphocytes/100 WBC (Bld) 16.6 % Low 20 .5 - 60.0 % [facility] MCH (RBC) [Entitic mass] 23.7 pg Low 25. 9 - 34.0 pg [facility] MCHC (RBC) [Mass/Vol] 29.7 g/dL Low 29.9 - 35.2 g/dL [facility] MCV (RBC) [Entitic vol] 79.8 fL Low 80.0 - 94.0 fL [facility] MONOCYTES ABSOLUTE AUTO 0.6 N [facility] Monocytes/100 WBC (Bld) 6.6 % 1.7 - 12.0 % [facility] NEUTROPHILS ABSOLUTE AUTO 6.5 [facility] Neutrophils/100 WBC (Bld) 73.6 % 43 .0 - 75.0 % [facility] Platelet mean volume (Bld) [Entitic vol] 9.2 fL Low 9.5 - 13.5 fL [facility] TBH EO # 0.1 [facility] TB PLT 360 [facility] TB RBC 4.90 [facility] TBH WBC 8.8 [facility] CULTURE URINEon 12-16-2018 CULTURE URINE Isolate 1 Escherichia coli >100,000 cfu/ml of ORGANISM 1 Escherichia coli ANTIBIOTIC M.I.C RX STATUS Ampicillin 8 S F Ampicillin/Sulbact am 4 S F Piperacillin/Tazob actam <=4 S F Cefazolin <=4 S F Ceftazidime <=1 S F Ceftriaxone <=1 S F Ertapenem <=0.5 S F Imipenem <=0.25 S F Amikacin <=2 S F Gentamicin <=1 S F Tobramycin <=1 S F Ciprofloxacin <=0.25 S F Levofloxacin <=0.12 S F Nitrofurantoin <=16 S F Trimethoprim/Sulfa methoxazole <=20 S F Normal [facility] Comment on above: Performed By: #### U RCX #### [facility] [address] [place], [place] [id number] Rahul Nolan CARDIAC LEONOR ADMITon 019 CK [Catalytic activity/Vol] 116 U/L Normal 55-170 [facility] Comment on above: Performed By: #### L IVER, BMP, CMADM, LIPA #### [facility] [address] [place] [address] Rahul Nolan CK.MB [Mass/Vol] 1.36 ng/mL Normal <=2.37 [facility] Comment on above: Performed By: #### L IVER, BMP, CMADM, LIPA #### [facility] [address] [place] [address] Rahul Nolan INR Coag (Bld) [Relative time] SEE BELOW Normal [facility] Comment on above: Result Comment: <0.0 34 ng/ml NEGATIVE 0.034-0.119 INDETERMINATE 0.120 AMI CUT OFF Performed By: #### L IVER, BMP, CMADM, LIPA #### [facility] [address] [place] [address] Rahul Nolan PHAM 112.0 ng/mL Normal <=121.0 [facility] Comment on above: Performed By: #### L IVER, BMP, CMADM, LIPA #### [facility] [address] [place] [address] Rahul An TROP <0.017 Normal <=0.034 [facility] Comment on above: Performed By: #### L IVER, BMP, CMADM, LIPA #### [facility] [address] [place] [address] Rahul An CBC AUTO DIFFon 12-14-2018 Basophils (Bld) [#/Vol] 0.1 103/ul Normal 0.0-0.1 [facility] Comment on above: Performed By: #### C BC #### [facility] [address] [place] [address] Rahul Nolan Basophils/100 WBC (Bld) 0.7 % Normal 0.2-2.0 [facility] Comment on above: Performed By: #### C BC #### [facility] [address] [id number] Rahul An Eosinophils (Bld) [#/Vol] 0.0 103/ul Normal 0.0-0.7 [facility] Comment on above: Performed By: #### C BC #### [facility] [address] [id number] Rahul An Eosinophils/100 WBC (Bld) 0.2 % Critically low 0.9-7. 0 [facility] Comment on above: Performed By: #### C BC #### [facility] [address] [place], [place] [address] Rahul An Erythrocyte distribution width (RBC) [Ratio] 14.8 % Normal 11.0-15.0 [facility] Comment on above: Performed By: #### C BC #### [facility] [address] [place] [address] Rahul An Hematocrit (Bld) [Volume fraction] 52.1 % Normal 42.0-54.0 [facility] Comment on above: Performed By: #### C BC #### [facility] [address] [place], [place] [address] Rahul An Hemoglobin (Bld) [Mass/Vol] 17.3 g/dL Normal 14.0-18. 0 [facility] Comment on above: Performed By: #### C BC #### [facility] [address] [place], [place] [address] Rahul An IG # 0.10 10e3/ul Critically high 0.00-0.03 [facility] Comment on above: Performed By: #### C BC #### [facility] [address] [place], [place] [address] Rahul An IG % 0.6 % Critically high 0.0-0.5 [facility] Comment on above: Performed By: #### C BC #### [facility] [address] [place], [place] [address] Rahul An Lymphocytes (Bld) [#/Vol] 1.9 103/ul Normal 1.2-3.8 [facility] Comment on above: Performed By: #### C BC #### [facility] [address] [place], [place] [address] Rahul An Lymphocytes/100 WBC (Bld) 11.5 % Critically low 20.5-6 0.0 [facility] Comment on above: Performed By: #### C BC #### [facility] [address] [place], [place] [address] Rahul An MANUAL DIFF REQ NO Normal [facility] Comment on above: Performed By: #### C BC #### [facility] [address] [place], [place] [address] Rahul An MCH (RBC) [Entitic mass] 30.0 pg Normal 25.9-34.0 [facility] Comment on above: Performed By: #### C BC #### [facility] [address] [place] [address] Rahul An MCHC (RBC) [Mass/Vol] 33.2 g/dL Normal 29.9-35.2 [facility] Comment on above: Performed By: #### C BC #### [facility] [address] [place] [address] Rahul An MCV (RBC) [Entitic vol] 90.5 fL Normal 80.0-94.0 [facility] Comment on above: Performed By: #### C BC #### [facility] [address] [place] [address] Rahul An Monocytes (Bld) [#/Vol] 1.2 103/ul Critically high 0.3-0.8 [facility] Comment on above: Performed By: #### C BC #### [facility] [address] [place] [address] Rahul An Monocytes/100 WBC (Bld) 7.0 % Normal 1.7-12.0 [facility] Comment on above: Performed By: #### C BC #### [facility] [address] [place], [place] [address] Rahul An Neutrophils (Bld) [#/Vol] 13.3 103/ul Critically high 1.4- 6.5 [facility] Comment on above: Performed By: #### C BC #### [facility] [address] [place] [address] Rahul An Neutrophils/100 WBC (Bld) 80.0 % Critically high 43.0- 75.0 [facility] Comment on above: Performed By: #### C BC #### [facility] [address] [place] [phone] Rahul An Platelet mean volume (Bld) [Entitic vol] 9.9 fL Normal 9.5-13.5 [facility] Comment on above: Performed By: #### C BC #### [facility] [address] [place] [address] Rahul An Platelets (Bld) [#/Vol] 366 103/ul Normal 150-450 [facility] Comment on above: Performed By: #### C BC #### [facility] [address] [place], [place] [address] Rahul An RBC (Bld) [#/Vol] 5.76 106/ul Normal 4.70-6.10 [facility] Comment on above: Performed By: #### C BC #### [facility] [address] [place] [id number] Rahul An WBC (Bld) [#/Vol] 16.6 103/ul Critically high 4.0-11.0 [facility] Comment on above: Performed By: #### C BC #### [facility] [address] [place] [phone] Rahul An ER URINE PROFILEon 9 Bilirubin [Mass/Vol] MODERATE Normal NEGATIVE [facility] Comment on above: Performed By: #### JANNY CLOUD #### [facility] [address] [place] [id number] Rahul An BLOOD LARGE Normal NEGATIVE [facility] Comment on above: Performed By: #### JANNY CLOUD #### [facility] [address] [place] [phone] Rahul An Clarity (U) CLEAR Normal [facility] Comment on above: Performed By: #### JANNY CLOUD #### [facility] [address] [place] [address] Rahul An Color (U) DK. ORANGE Normal YELLOW [facility] Comment on above: Performed By: #### JANNY CLOUD #### [facility] [address] [place], [place] [phone] Rahul An ERUAHD A micrscopic examination will be performed if indicated. Normal [facility] Comment on above: Performed By: #### JANNY CLOUD #### [facility] [address] [place] [address] Rahul An Glucose [Mass/Vol] Negative Normal NEGATIVE [facility] Comment on above: Performed By: #### JANNY CLOUD #### [facility] [address] [place] [address] Rahul An Ketones Ql (U) TRACE Normal NEGATIVE [facility] Comment on above: Performed By: #### JANNY CLOUD #### [facility] [address] [place] [address] Rahul An Nitrite Ql (U) Positive Normal NEGATIVE [facility] Comment on above: Performed By: #### JANNY CLOUD #### [facility] [address] [place] [address] Rahul An pH (Bld) 6.0 Normal 5-9 [facility] Comment on above: Performed By: #### JANNY CLOUD #### [facility] [address] [place] [address] Rahul An Protein (U) [Mass/Vol] mg/dL Normal Th [facility] Comment on above: Performed By: #### JANNY CLOUD #### [facility] [address] [place] [address] Rahul An SPEC GRAVITY 1.025 Normal 1.005-<=1. 025 [facility] Comment on above: Performed By: #### JANNY CLOUD #### [facility] [address] [place] [address] Rahul An UR MICRO IND INDICATED Normal [facility] Comment on above: Performed By: #### Bigg KATZ, JAMESRO #### [facility] [address] [phone] Rahul Nolan Urobilinogen Qn (U) 2.0 EU/dl Normal [facility] Comment on above: Performed By: #### Bigg KATZ, JAMESRO #### [facility] [address] [place], [place] [address] Rahul Nolan WBC (Bld) [#/Vol] SMALL Normal NEGATIVE [facility] Comment on above: Performed By: #### JAMES CLOUDRO #### [facility] [address] [place], [place] [address] Rahul Nolan LIPASEon 12-14-2018 Lipase [Catalytic activity/Vol] 160.0 U/L Normal 23.0-300.0 [facility] Comment on above: Performed By: #### L IVER, BMP, CMADM, LIPA #### [facility] [address] [place] [address] Rahul Nolan LIVER PROFILEon 12-14-2018 Albumin [Mass/Vol] 3.8 g/dL Normal 3.5-5.0 [facility] Comment on above: Performed By: #### L IVER, BMP, CMADM, LIPA #### [facility] [address] [place], [place] [address] Rahul Nolan Albumin/Globulin [Mass ratio] 0.7 {ratio} Normal [facility] Comment on above: Performed By: #### L IVER, BMP, CMADM, LIPA #### [facility] [address] [place] [address] Rahul Nolan ALP [Catalytic activity/Vol] 84 U/L Normal 38-126 [facility] Comment on above: Performed By: #### L IVER, BMP, CMADM, LIPA #### [facility] [address] [place] [address] Rahul Nolan ALT [Catalytic activity/Vol] 51 U/L Normal 21-72 [facility] Comment on above: Performed By: #### L IVER, BMP, CMADM, LIPA #### [facility] [address] [place] [address] Rahul An AST [Catalytic activity/Vol] 22 U/L Normal 17-59 [facility] Comment on above: Performed By: #### L IVER, BMP, CMADM, LIPA #### [facility] [address] [place] [address] Rahul An BILI, CONJUGATED 0.3 mg/dL Normal 0.0-0.3 [facility] Comment on above: Performed By: #### L IVER, BMP, CMADM, LIPA #### [facility] [address] [place] [address] Rahul An Bilirubin Ql (U) 1.2 mg/dL Normal 0.2-1.3 [facility] Comment on above: Performed By: #### L IVER, BMP, CMADM, LIPA #### [facility] [address] [place] [address] Rahul An Globulin (S) [Mass/Vol] 5.3 g/dL Normal [facility] Comment on above: Performed By: #### L IVER, BMP, CMADM, LIPA #### [facility] [address] [place] [address] Rahul An Protein [Mass/Vol] 9.1 g/dL Critically high 6.1-8.2 [facility] Comment on above: Performed By: #### L IVER, BMP, CMADM, LIPA #### [facility] [address] [place] [address] Rahul An PROF CHEM 8 (BAS METB)on Anion gap [Moles/Vol] 13.0 mmol/L Normal [facility] Comment on above: Performed By: #### L IVER, BMP, CMADM, LIPA #### [facility] [address] [place] [address] Rahul An Calcium [Mass/Vol] 8.5 mg/dL Normal 8.4-10.2 [facility] Comment on above: Performed By: #### L IVER, BMP, CMADM, LIPA #### [facility] [address] [address] Rahul An Chloride [Moles/Vol] 96 mmol/L Critically low 98-107 [facility] Comment on above: Performed By: #### L IVER, BMP, CMADM, LIPA #### [facility] [address] [address] Rahul An CO2 [Moles/Vol] 31.0 mmol/L Critically high 22.0-30.0 [facility] Comment on above: Performed By: #### L IVER, BMP, CMADM, LIPA #### [facility] [address] [place] [address] Rahul An Creatinine [Mass/Vol] 1.53 mg/dL Critically high 0.66-1.25 [facility] Comment on above: Performed By: #### L IVER, BMP, CMADM, LIPA #### [facility] [address] [place] [address] Rahul An EGFR-AF [place]ORE[place] 56 mL/min/1.73m2 Critically low >=60 [facility] Comment on above: Performed By: #### L IVER, BMP, CMADM, LIPA #### [facility] [address] [place] [address] Rahul An EGFR-NON AF [place] 46 mL/min/1.73m2 Critically low >=60 [facility] Comment on above: Performed By: #### L IVER, BMP, CMADM, LIPA #### [facility] [address] [address] Rahul An Glucose [Mass/Vol] 135 mg/dL Critically high 74-106 T [facility] Comment on above: Performed By: #### L IVER, BMP, CMADM, LIPA #### [facility] [address] [place] [address] Rahul An Potassium [Moles/Vol] 3.0 mmol/L Critically low 3.4-5.0 [facility] Comment on above: Performed By: #### L IVER, BMP, CMADM, LIPA #### [facility] [address] [address] Rahul An Sodium [Moles/Vol] 137 mmol/L Normal 137-145 [facility] Comment on above: Performed By: #### L IVRISA, MAURISIO, CMADM, LIPA #### [facility] [address] [place] [address] Rahul An Urea nitrogen [Mass/Vol] 14.0 mg/dL Normal 9.0-20.0 [facility] Comment on above: Performed By: #### L IVRISA, MAURISIO, CMADM, LIPA #### [facility] [address] [place] [address] Rahul An Urea nitrogen/Creatinine [Mass ratio] 9.2 mg/mg Normal [facility] Comment on above: Performed By: #### L MAURISIO LAMBERT, CMADM, LIPA #### [facility] [address] [place], [place] [phone] Rahul An PROTIMEon 12-14-2018 INR Coag (PPP) [Relative time] 1.14 {INR} Normal [facility] Comment on above: Performed By: #### P T, PTT #### [facility] [address] [place] [address] Rahul An PT Coag (PPP) [Time] PLEASE NOTE: NORMAL RANGE CHANGE 01-23-2014 DUE TO REAGENT LOT CHANGE Normal [facility] Comment on above: Performed By: #### P T, PTT #### [facility] [address] [place] [address] Rahul An PT Coag (PPP) [Time] 11.8 s Critically high 9.0-11.6 [facility] Comment on above: Performed By: #### P T, PTT #### [facility] [address] [place] [address] Rahul An PT Coag (PPP) [Time] SEE BELOW Normal [facility] Comment on above: Result Comment: FRANK RED INR: 2.0 - 3.0 CONDITIONS NOT LISTED BELOW 2.5 - 3.5 FOR PROSTHETIC HEART VALVE REPLACEMENT 2.5 - 3.5 RECURRENT THROMBOSIS Performed By: #### P T, PTT #### [facility] [address] [place], [place] [phone] Rahul An PTTon 12-14-2018 aPTT Coag (Bld) [Time] 35.0 s Normal 22.3-36.2 Th [facility] Comment on above: Performed By: #### P T, PTT #### [facility] [address] [place] [address] Rahul An aPTT Coag (Bld) [Time] PLEASE NOTE: NORMAL RANGE CHANGE 04-01-2015 DUE TO REAGENT LOT CHANGE Normal [facility] Comment on above: Performed By: #### P T, PTT #### [facility] [address] [place] [address] Rahul An URINE MICROSCOPIC ONLYon Bacteria LM.HPF (Urine sed) [#/Area] MODERATE Normal NONE SEEN [facility] Comment on above: Performed By: #### Bigg KATZ UMICRO #### [facility] [address] [place] [address] Rahul An CAST NONE SEEN Normal NONE SEEN [facility] Comment on above: Performed By: #### Bigg KATZ UMICRO #### [facility] [address] [place] [address] Rahul An Crystals LM Nom (Urine sed) NONE SEEN Normal NONE SEE N [facility] Comment on above: Performed By: #### Bigg KATZ UMICRO #### [facility] [address] [place] [address] Rahul An CULTURE INDICATED Normal [facility] Comment on above: Performed By: #### E RUR UMICRO #### [facility] [address] [place] [address] Rahul An Epithelial cells LM.HPF (Urine sed) [#/Area] RARE Normal [facility] Comment on above: Performed By: #### E RUR UMICRO #### [facility] [address] [place] [address] Rahul An MUCOUS NONE SEEN Normal NONE SEEN [facility] Comment on above: Performed By: #### Bigg JANNY KATZ #### [facility] [address], [place] [address] Rahulkeya Nolan RBC (U) [#/Vol] 20-50 Normal 0-2 [facility] Comment on above: Performed By: #### JANNY CLOUD #### [facility] [address], [place] [address] Rahul An WBC (Bld) [#/Vol] >100 Normal NONE SEEN [facility] Comment on above: Performed By: #### JANNY CLOUD #### [facility] [address], [place] [address] Rahul An Vital Signs Date Time Vital Sign Value Performing Clinician Facility 06-25-2024 09:15-0500 Blood Pressure Location KIKI OLIVIER [facility] 06-25-2024 09:15-0500 Body temperature 98.6 [degF] KIKI OLIVIER [facility] 06-25-2024 09:15-0500 Diastolic blood pressure 90 mm[Hg] KIKI OLIVIER [facility] 06-25-2024 09:15-0500 Heart rate 70 /min KIKI OLIVIER [facility] 06-25-2024 09:15-0500 Respiratory rate 16 /min KIKI OLIVIER [facility] 06-25-2024 09:15-0500 Systolic blood pressure 131 mm[Hg] KIKI CHARLINE [facility] 06-12-2024 11:46-0500 Body temperature 98.49 [degF] Tabatha León MD Work Phone: [facility] 06-12-2024 11:46-0500 Diastolic blood pressure 97 mm[Hg] Tabatha León MD Work Phone: [facility] 06-12-2024 11:46-0500 Heart rate 82 /min Tabatha León MD Work Phone: [facility] 06-12-2024 11:46-0500 Respiratory rate 16 /min Tabatha León MD Work Phone: [facility] 06-12-2024 11:46-0500 SaO2% (BldA) [Mass fraction] 100 % Tabatha León MD Work Phone: [facility] 06-12-2024 11:46-0500 Systolic blood pressure 122 mm[Hg] Tabatha León MD Work Phone: [facility] 06-10-2024 04:40-0500 Body mass index (BMI) [Ratio] 18.81 kg/m2 Tabatha León MD Work Phone: [facility] 06-10-2024 04:40-0500 Body weight 62.9 kg Tabatha León MD Work Phone: [facility] 06-07-2024 09:25-0500 Body height 182.9 cm Tabatha León MD Work Phone: [facility] Encounters Encounter Date Encounter Type Care Provider Facility Start: 09-06-2024 ambulatory DONAL URIARTE-AMCLOVISRA Facility:[facility] Start: 07-19-2024 End: 07-19-2024 ambulatory DONAL NKANSAH-AMANKRA Facility:[facility] Start: 06-25-2024 End: 06-25-2024 ambulatory KIKI OLIVIER Facility:[facility] Start: 06-25-2024 End: 06-25-2024 Patient encounter procedure KIKI OLIVIER [facility] Start: 06-08-2024 End: 06-10-2024 Telephone encounter Essence Shelton MOLDER SETTER-INFORMATION SYSTEMS SPECIALIST Work Phone: [facility] Start: 06-07-2024 End: 06-12-2024 Evaluation and management of inpatient Matthew Philippe MD Work Phone: [facility] 9 Acute Start: 06-07-2024 ambulatory [facility] Start: 06-06-2024 End: 06-07-2024 Emergency department patient visit [facility] Start: 12-05-2023 End: 12-05-2023 ambulatory SHAIKH LARRY Not Available Start: 06-28-2023 End: 06-28-2023 ambulatory SHAIKH LARRY Not Available Start: 06-22-2023 Clinisync Result Encounter Shaikh Larry MCCALL Work Phone: [facility] Unsolicited Start: 06-22-2023 Clinisync Result Encounter Shaikh Larry MCCALL Work Phone: [facility] Unsolicited Start: 05-24-2023 End: 05-24-2023 ambulatory SHAIKH LARRY Not Available Start: 12-14-2018 End: 12-14-[address] [facility] Facility: Procedures Date Procedure Procedure Detail Performing Clinician Start: 06-12-2024 Blood count complete auto&auto difrntl wbc Demetria Domingow DO Work Phone: Start: 06-11-2024 Potassium serum plasma/whole blood Tabatha León MD Work Phone: Start: 06-11-2024 RESPIRATORY CARE CONSULT Aureliano Garduno DO Work Phone: Start: 06-11-2024 Comprehensive metabo lic panel Roseline Reyez MD Work Phone: Start: 06-10-2024 Basic metabolic pane l calcium total Demetria Cuevasmew DO Work Phone: Start: 06-10-2024 Hepatic function panel Demetria Keller DO Work Phone: Start: 06-10-2024 Mri brain brain stem w/o w/contrast material Rochelle Llamas MD Work Phone: Start: 06-09-2024 Potassium serum plasma/whole blood Roseline Reyez MD Work Phone: Start: 06-09-2024 Ecg routine ecg w/le ast 12 lds trcg only w/o i&r Roseline Reyez MD Work Phone: Start: 06-09-2024 Basic metabolic pane l calcium total Roseline Reyez MD Work Phone: Start: 06-08-2024 Potassium serum plasma/whole blood Roseline Reyez MD Work Phone: Start: 06-08-2024 RESPIRATORY CARE CONSULT Aureliano Garduno DO Work Phone: Start: 06-08-2024 Ct head/brain w/o co ntrast material Will Renee MOLDER SETTER-INFORMATION SYSTEMS SPECIALIST Work Phone: Start: 06-08-2024 3d rendering w/inter p & postprocess supervision Roseline Reyez MD Work Phone: Start: 06-08-2024 Thromboplastin time partial plasma/whole blood Roseline Reyez MD Work Phone: Start: 06-08-2024 Basic metabolic pane l calcium total Roseline Reyez MD Work Phone: Start: 06-08-2024 Lipid panel Roseline Reyez MD Work Phone: Start: 06-07-2024 3d rendering w/inter p & postprocess supervision Vito Kurtz PA-C Work Phone: Start: 06-07-2024 Assay of magnesium Robbin Reyez MD Work Phone: Start: 06-07-2024 Gluc bld gluc mntr d ev cleared fda spec home use Matthew Philippe MD Work Phone: Start: 06-07-2024 Mri abdomen w/o cont rast material Demetria Cuevasmew DO Work Phone: Start: 06-07-2024 Ct abdomen & pelvis w/o contrast material Magalis A Duarte KRYSTYNA Work Phone: Start: 06-07-2024 EEG Marii west MD Work Phone: Start: 06-07-2024 Culture bacterial quanttative colony count urine Aureliano Garduno DO Work Phone: Start: 06-07-2024 Drug tst prsmv instr mnt chem analyzers pr date Aureliano Garduno DO Work Phone: Start: 06-07-2024 Urnls dip stick/tabl et rgnt auto w/o microscopy Aureliano Garduno DO Work Phone: Start: 06-07-2024 Acute hepatitis panel Bigg Salazar DO Work Phone: Start: 06-07-2024 Comprehensive metabo lic panel Aureliano Garduno DO Work Phone: Start: 06-07-2024 RESPIRATORY CARE CONSULT Aureliano Garduno DO Work Phone: Start: 06-22-2023 ALL CBC WITH AUTO DIFF Shaikh Larry MCCALL Work Phone: None (qualifier value) GT OLIVIER Plan of Treatment Date Care Activity Detail Author Start: 06-09-2025 Adult BMI Screening [facility] Start: 01-07-2024 Influenza vaccination Influenza Vacc ine [facility] Start: 06-28-2023 End: 06-28-2023 Patient encounter procedure 06/28/2023 1:30 PM EST Office Visit [facility] [address] [place] [id number] Shaikh Juarez MD [address] [place] [id number] [facility] Start: 01-06-2023 Influenza vaccination Influenza Vacc ine (#1) [facility] Start: 08-01-2019 Abdominal aortic ane urysm screening Abdominal Aortic Aneurysm (AAA) Screen [facility] Start: 08-01-2019 Fall Risk Screening Fall Risk Screen ing [facility] Start: 2004 Administration of varicella zoster vaccine Zoster (Shingles) Vaccine (1 of 2) [facility] Start: 1973 DTaP,Tdap and Td Vac cines (1 - Tdap) DTaP,Tdap and Td Vaccines (1 - Tdap) [facility] Start: 1966 Depression Screening Depression Scre ening [facility] Start: 1966 Tobacco Screening Tobacco Screening [facility] Start: 1960 Pneumococcal Vaccine : 65+ Years (1 - PCV) Pneumococcal Vaccine: 65+ Years (1 - PCV) [facility] Start: 1954 Screening for malign ant neoplasm of colon [facility] End: 06-14-2024 Blood count hemoglobin Hemoglobin Lab Routine Every Other Day for 3 Days starting 06/12/2024 until 06/14/2024, 1 completed [email or web address] Work Phone: Comment on above: Every Other Day for 3 Days starting 06/12/2024 until 06/14/2024, 1 completed CBC W Auto Different ial panel - Blood CBC auto differential Lab Routine Lab max of 3 days, Daily, for lab use only until discontinued starting 06/10/2024, 3 completed [email or web address] Work Phone: Comment on above: Lab max of 3 days, D aily, for lab use only until discontinued starting 06/10/2024, 3 completed Oxygen Therapy - Alayna ntain SpO2: 90%; *CAN CARRIER Guidelines for O2: Yes; Document: \[employer]Science\epic \EPIC_Reference\Orders\Re spiratory Care Guidelines\CPG Oxygen 2022.pdf Oxygen Therapy - Maintain SpO2: 90%; *CAN CARRIER Guidelines for O2: Yes; Document: \[employer] Group\e pic\EPIC_Reference\Ord ers\Respiratory Care Guidelines\CPG Oxygen 2022.pdf Respiratory Care Routine As Needed until discontinued starting 06/07/2024 [employer] Comment on above: As Needed until disc ontinued starting 06/07/2024 End: 06-13-2024 Platelets [#/volume] in Blood Platelet count Lab Routine Every Third Day for 3 Days starting 06/13/2024 until 06/13/[address] [facility] Comment on above: Every Third Day for 3 Days starting 06/13/2024 until 06/13/2024 End: 06-07-2024 Pulse oximetry, spot On current oxygen flow Pulse oximetry, spot On current oxygen flow Respiratory Care Routine Once for 1 Occurrences starting 06/07/2024 until 06/07/2024 [email or web address] Work Phone: Comment on above: Once for 1 Occurrenc es starting 06/07/2024 until 06/07/2024 Respiratory Care con sult *CAN CARRIER Guidelines for Resp Care Consult: Yes; Document: \[employer].org\epic \EPIC_Reference\Orders\Re spiratory Care Guidelines\CPG Consult 2020.pdf Respiratory Care consult *CAN CARRIER Guidelines for Resp Care Consult: Yes; Document: \[employer].org\e pic\EPIC_Reference\Ord ers\Respiratory Care Guidelines\CPG Consult 2020.pdf Respiratory Care Routine Every 12 hour check until discontinued starting 06/07/2024, [address] [facility] Comment on above: Every 12 hour check until discontinued starting 06/07/2024, 4 completed Immunizations Immunization Date Immunization Notes Care Provider [facility] 04-21-2021 Influenza Vaccine, Quadrivalent, Adjuvanted Essence Shelton APRN-INFORMATION SYSTEMS SPECIALIST [facility] 04-21-2021 influenza virus vaccine, unspecified formulation Shaikh Larry MCCALL Work Phone: [facility] Payers Date Payer Category Payer Managed Care Other (unspecified) [employer] BERYL SHABAZZ [id number] 2019 Unknown [id number] 2019 Blue Cross Blue Shie ld Managed Care - Other ANTHEM Member Subscriber Plan / Payer (Effective 2019-Present) Name: TOANKARMEN IBARRA Relation to Subscriber: Spouse Name: TOANPB Date of : 1952 (Home) Address: [address] [place] [address] Payer ID: [id number] (NAIC) Type: Not on file Address: [address] [place] [id number] 2019 Medicare [id number] 2019 Unknown BCBS BCBS xxxxxx [id number] 2019-Present [phone] [address] [place] [id number] 2019 Medicare [id number] 2019 Unknown [id number] 1959 Unknown [id number] 1954 Unknown [id number] [id number]. 2.593 1954 Unknown [id number] 2.16.840.1.076682.3.579. 2.1259 1954 Unknown [id number] 2.16.840.1.933513.3.579. 2.1259 1954 Unknown [id number] 2.16.840.1.512490.3.579. 2.1259 1954 Unknown [id number] 2.16.840.1.211314.3.579. 2.1286 1954 Unknown [id number] 2.16.840.1.493297.3.579. 2.1286 1954 Unknown [id number] 2.16.840.1.976954.3.579. 2.1286 1954 Unknown [id number] 2.16.840.1.540148.3.579. 2.1286 1954 Unknown [id number] 2.16.840.1.386821.3.579. 2.1286 1954 Unknown [id number] 2.16.840.1.211172.3.579. 2.1286 1954 Unknown [id number] 2.16.840.1.595991.3.579. 2.1286 1954 Unknown [id number] 2.16.840.1.098293.3.579. 2.727 1954 Unknown [id number] 2.16.840.1.639347.3.579. 2.727 1954 Unknown [id number] [id number]. 2.727 Social History Date Type Detail Facility Start: 05-24-2023 End: 06-25-2024 Tobacco smoking status NEIS Never smoked tobacco [facility] Start: 02-23-2022 End: 05-24-2023 Tobacco use and exposure Smokeless tobacco non-user [facility] Start: 05-24-2023 Alcohol intake Lifetime non-d xochitl (finding) [facility] Start: 05-22-2020 End: 05-24-2023 History of Social function [facility] Start: 05-22-2020 End: 05-24-2023 Tobacco use panel [facility] Start: 1955 Sex Assigned At Not on file [facility] Start: 02-23-2022 Tobacco smoking stat us NHIS Ex-smoker [facility] History of tobacco use Current smoker [employer] [facility] Start: 06-07-2024 Alcoholic beverage intake Current drinker of alcohol (finding) [facility] [employer] [facility] Has the [employer], [employer], oil, or water company threatened to shut off services in your home in past 12Mo Patient unable to answer [facility] Start: 12-11-2014 Sex Male (finding) [facility] Goals Date Patient Goal Desired Activity /State Personal health goal Comment on above: Formatting of this n ote might be different from the original. Evaluation of progress towards goal: Functional Status Date Assessment Result Facility 06-25-2024 Functional Status N/A [facility] [employer] [facility] Mental Status Date Assessment Result Facility [facility] Clinical Notes 06-07-2024 to 07-19-2024 Shazia Haynes RN - 06/12/2024 1:50 PM Robert Haynes RN - 06/12/2024 1:50 PM Robert Haynes RN - 06/11/2024 2:31 PM Jasmin Burrell RN - 06/10/2024 6:34 AM EST Note Date & Type Note Facility 07-19-2024 Note Patient Education Urology Acute Urinary Retention, Male Acute urinary retention is a condition in which a person is unable to pass urine or can only pass a little urine. This condition can happen suddenly and last for a short time. If left untreated, it can become long-term (chronic) and result in kidney damage or other serious complications. What are the causes? This condition may be caused by: ??? Obstruction or narrowing of the tube that drains the bladder (urethra). This may be caused by surgery, problems with nearby organs, or injury to the bladder or urethra. ??? Problems with the nerves in the bladder. ??? Tumors in the area of the pelvis, bladder, or urethra. ??? Certain medicines. ??? Bladder or urinary tract infection. ??? Constipation. What increases the risk? This condition is more likely to develop in older men. As men age, their prostate may become larger and may start to press or squeeze on the bladder or the urethra. Other chronic health conditions can increase the risk of acute urinary retention. These include: ??? Diseases such as multiple sclerosis. ??? Spinal cord injuries. ??? Diabetes. ??? Degenerative cognitive conditions, such as delirium or dementia. ??? Psychological conditions. A man may hold his urine due to trauma or because he does not want to use the bathroom. What are the signs or symptoms? Symptoms of this condition include: ??? Trouble urinating. ??? Pain in the lower abdomen. How is this diagnosed? This condition is diagnosed based on a physical exam and your medical history. You may also have other tests, including: ??? An ultrasound of the bladder or kidneys or both. ??? Blood tests. ??? A urine analysis. ??? Additional tests may be needed, such as a CT scan, MRI, and kidney or bladder function tests. How is this treated? Treatment for this condition may include: ??? Medicines. ??? Placing a thin, sterile tube (catheter) into the bladder to drain urine out of the body. This is called an indwelling urinary catheter. After it is inserted, the catheter is held in place with a small balloon that is filled with sterile water. Urine drains from the catheter into a collection bag outside of the body. ??? Behavioral therapy. ??? Treatment for other conditions. If needed, you may be treated in the hospital for kidney function problems or to manage other complications. Follow these instructions at home: Medicines ??? Take gpgq-uwo-vywjvnr and prescription medicines only as told by your health care provider. Avoid certain medicines, such as decongestants, antihistamines, and some prescription medicines. Do not take any medicine unless your health care provider approves. ??? If you were prescribed an antibiotic medicine, take it as told by your health care provider. Do not stop using the antibiotic even if you start to feel better. General instructions ??? Do not use any products that contain nicotine or tobacco. These products include cigarettes, chewing tobacco, and vaping devices, such as e-cigarettes. If you need help quitting, ask your health care provider. ??? Drink enough fluid to keep your urine pale yellow. ??? If you have an indwelling urinary catheter, follow the instructions from your health care provider. ??? Monitor any changes in your symptoms. Tell your health care provider about any changes. ??? If instructed, monitor your blood pressure at home. Report changes as told by your health care provider. ??? Keep all follow-up visits. This is important. Contact a health care provider if: ??? You have uncomfortable bladder contractions that you cannot control (spasms). ??? You leak urine with the spasms. Get help right away if: ??? You have chills or a fever. ??? You have blood in your urine. ??? You have a catheter and the following happens: ? Your catheter stops draining urine. ? Your catheter falls out. Summary ??? Acute urinary retention is a condition in which a person is unable to pass urine or can only pass a little urine. If left untreated, this condition can result in kidney damage or other serious complications. ??? An enlarged prostate may cause this condition. As men age, their prostate gland may become larger and may press or squeeze on the bladder or the urethra. ??? Treatment for this condition may include medicines and placement of an indwelling urinary catheter. ??? Monitor any changes in your symptoms. Tell your health care provider about any changes. This information is not intended to replace advice given to you by your health care provider. Make sure you discuss any questions you have with your health care provider. Document Revised: 01/13/2021 Document Reviewed: 01/13/2021 [employer] Patient Education ? 2023 [employer]. [facility] 06-26-2024 Note Patient Education Urology Benign Prostatic Hyperplasia Benign prostatic hyperplasia (BPH) is an enlarged prostate gland that is caused by the normal aging process. The prostate may get bigger as a man gets older. The condition is not caused by cancer. The prostate is a walnut-sized gland that is involved in the production of semen. It is located in front of the rectum and below the bladder. The bladder stores urine. The urethra carries stored urine out of the body. An enlarged prostate can press on the urethra. This can make it harder to pass urine. The buildup of urine in the bladder can cause infection. Back pressure and infection may progress to bladder damage and kidney (renal) failure. What are the causes? This condition is part of the normal aging process. However, not all men develop problems from this condition. If the prostate enlarges away from the urethra, urine flow will not be blocked. If it enlarges toward the urethra and compresses it, there will be problems passing urine. What increases the risk? This condition is more likely to develop in men older than 50 years. What are the signs or symptoms? Symptoms of this condition include: ??? Getting up often during the night to urinate. ??? Needing to urinate frequently during the day. ??? Difficulty starting urine flow. ??? Decrease in size and strength of your urine stream. ??? Leaking (dribbling) after urinating. ??? Inability to pass urine. This needs immediate treatment. ??? Inability to completely empty your bladder. ??? Pain when you pass urine. This is more common if there is also an infection. ??? Urinary tract infection (UTI). How is this diagnosed? This condition is diagnosed based on your medical history, a physical exam, and your symptoms. Tests will also be done, such as: ??? A post-void bladder scan. This measures any amount of urine that may remain in your bladder after you finish urinating. ??? A digital rectal exam. In a rectal exam, your health care provider checks your prostate by putting a lubricated, gloved finger into your rectum to feel the back of your prostate gland. This exam detects the size of your gland and any abnormal lumps or growths. ??? An exam of your urine (urinalysis). ??? A prostate specific antigen (PSA) screening. This is a blood test used to screen for prostate cancer. ??? An ultrasound. This test uses sound waves to electronically produce a picture of your prostate gland. Your health care provider may refer you to a specialist in kidney and prostate diseases (urologist). How is this treated? Once symptoms begin, your health care provider will monitor your condition (active surveillance or watchful waiting). Treatment for this condition will depend on the severity of your condition. Treatment may include: ??? Observation and yearly exams. This may be the only treatment needed if your condition and symptoms are mild. ??? Medicines to relieve your symptoms, including: ? Medicines to shrink the prostate. ? Medicines to relax the muscle of the prostate. ??? Surgery in severe cases. Surgery may include: ? Prostatectomy. In this procedure, the prostate tissue is removed completely through an open incision or with a laparoscope or robotics. ? Transurethral resection of the prostate (TURP). In this procedure, a tool is inserted through the opening at the tip of the penis (urethra). It is used to cut away tissue of the inner core of the prostate. The pieces are removed through the same opening of the penis. This removes the blockage. ? Transurethral incision (TUIP). In this procedure, small cuts are made in the prostate. This lessens the prostate's pressure on the urethra. ? Transurethral microwave thermotherapy (TUMT). This procedure uses microwaves to create heat. The heat destroys and removes a small amount of prostate tissue. ? Transurethral needle ablation (TUNA). This procedure uses radio frequencies to destroy and remove a small amount of prostate tissue. ? Interstitial laser coagulation (ILC). This procedure uses a laser to destroy and remove a small amount of prostate tissue. ? Transurethral electrovaporization (TUVP). This procedure uses electrodes to destroy and remove a small amount of prostate tissue. ? Prostatic urethral lift. This procedure inserts an implant to push the lobes of the prostate away from the urethra. Follow these instructions at home: ??? Take wfcl-tdv-auqajdz and prescription medicines only as told by your health care provider. ??? Monitor your symptoms for any changes. Contact your health care provider with any changes. ??? Avoid drinking large amounts of liquid before going to bed or out in public. ??? Avoid or reduce how much caffeine or alcohol you drink. ??? Give yourself time when you urinate. ??? Keep all follow-up visits. This is important. Contact a health care provider if: ??? You have unexplained back pain. ??? Your symptoms do not get (more content not included)... [facility] 06-12-2024 Nurse Note Summary: discharge Patient transported to facility by daughter, patient VSS. IV and tele removed. Pt wheeled down to daughters car. [facility] 06-12-2024 Nurse Note Summary: discharge Patient transported to facility by daughter, patient VSS. IV and tele removed. Pt wheeled down to daughters car. Summary: patient behavior Patient declined walking with RN and NA multiple times. Patient declined having food warmed up, RN provided box lunch for patient. Patient continues to talk down to staff. Summary: [facility] Patients arenas was pulled on 06/09/24 at 1600. Voided a small amount but was still retaining 212 @2330. Orders from primary team (Maria Guadalupe Graham) to see if he would be able to void again and re bladder scan at 0300. Patient felt no urges to pee and was retaining 363. Orders from primary to put arenas catheter back in. However, myself and another nurse tried to place/advance the catheter, was meeting resistance and it kept coiling and would not advance. [employer] messaged person precision inspector for urology at 0521. Was not read, no response. Then paged urology at 0630. Waiting for response - Rola Burrell RN 06/10/24 6:37 AM At 2114 patient bed alarm went off. RN ran toward patient room. RN saw PCT Monalisa at arms length away from patient holding onto patient hands while patient was standing. RN entered room to find patient on floor. RN asked patient if he hit his head. Patient and PCT replied with yes . Patient was laying on right side of body with head near the wheel cover of the top of the bed. PCT stated he hit that thing pointing to the wheel cover. Patient was able to get on hands and knees and raise self to bed with RN and Rola MANCUSO assistance. At 2119 RN called Vito Kurtz APPRN with [facility] Team G as primary care team. Stat head CT ordered. Neuro assessment and vitals completed per RN. No neuro changes. Patient still A&O X 4, just slow to say the complete year correctly. Primary updated on assessment and Kiki RN took patient to CT. - Meaghan Lam RN 06/07/24 9:49 PM documented in this encounter [facility] [employer] 06-12-2024 Plan of care note Problem: Safety Goal: Patient will be injury free during hospitalization Description: INTERVENTIONS: 1. Assess patient's risk for falls and implement fall prevention plan of care per policy 2. Provide and maintain a safe environment 3. Proper use of double Identifiers 4. Medication administration using the 5 rights 5. Hand hygiene 6. Specimens are labeled at the bedside 7. Instruct patient/ patient arborist representative about use of safety devices 8. Include patient/ patient arborist representative in decisions related to safety Outcome: Progressing Note: Evaluation of progress towards goal: Patient free from injury, will continue to provide a clean environment, personal objects in reach, and a well light room Problem: Knowledge Deficit Goal: Patient/patient arborist representative demonstrates understanding of disease process, treatment plan, medications, and discharge instructions Description: INTERVENTIONS 1. Complete learning assessment and assess knowledge base 2. Provide teaching at level of understanding 3. Provide teaching via preferred learning method(s) Outcome: Progressing Note: Evaluation of progress towards goal: Patient kept updated on plan of care, will continue to keep updated as new information arises Problem: Moderate - High Risk Fall Score Description: Bustamante Fall Score of =/> 25 or indicated by [facility] Assessment Goal: Patient should be free from fall Description: Interventions: 1. [place] to environment 2. Hourly rounds addressing the 4 P's (Pain, Positioning, Possessions, Potty) 3. Clear area of hazards (spills, clutter, electrical cords, unnecessary equipment) 4. Place equipment (bed & TV controls, call light, phone, urinal) within reach 5. Encourage patient to wear glasses and hearing aides as appropriate 6. Maintain bed in lowest position 7. Lock wheels on bed/wheelchair 8. Provide adequate lighting, including night light 9. Assess need for additional bedding, food/fluids, pain med's prior to sleep/routinely 10. Provide gripper slippers or personal non-skid footwear 11. Teach patient and patient arborist representative to maintain environment for safety and engage in all aspects of fall prevention program 12. Remind patient to call for help before getting out of bed 13. Initiate bed/chair/exit alarms supportive devices as appropriate, (chair wedge, no-skid floor mat, raised edge mattress, hip protectors) 14. Locate patient bed assignment for optimal visualization 15. Evaluate and identify Safe Patient Handling Equipment needs 16. Provide supervision when out of bed or chair 17. Utilize gait belt as needed to assist with ambulation 18. Place adaptive equipment (cane, walker) within reach 19. Request patient arborist representative bring adaptive equipment/mobility aids from home or obtain and provide as needed 20. Consult pharmacy regarding effects of med's affecting mobility, cognition, and alternatives 21. Obtain physician order for PT if risk factors associated with mobility are present 22. Obtain physician order for OT as appropriate 23. Utilize diversional activities 24. Educate patient and patient arborist representative how to maintain a safe environment during visitation times (notify nurse prior to leaving bedside) 25. Consider appropriateness of medical or non-medical front desk specialist 26. Set up voiding schedule as appropriate (every 2 hours) Outcome: Progressing Note: Evaluation of progress towards goal: Patient free from injury, will continue to provide a clean environment, personal objects in reach, and a well light room [facility] Suja Juice [facility] 06-12-2024 Miscellaneous Notes Problem: Safety Goal: Patient will be injury free during hospitalization Description: INTERVENTIONS: 1. Assess patient's risk for falls and implement fall prevention plan of care per policy 2. Provide and maintain a safe environment 3. Proper use of double Identifiers 4. Medication administration using the 5 rights 5. Hand hygiene 6. Specimens are labeled at the bedside 7. Instruct patient/ patient arborist representative about use of safety devices 8. Include patient/ patient arborist representative in decisions related to safety Outcome: Progressing Note: Evaluation of progress towards goal: Patient free from injury, will continue to provide a clean environment, personal objects in reach, and a well light room Problem: Knowledge Deficit Goal: Patient/patient arborist representative demonstrates understanding of disease process, treatment plan, medications, and discharge instructions Description: INTERVENTIONS 1. Complete learning assessment and assess knowledge base 2. Provide teaching at level of understanding 3. Provide teaching via preferred learning method(s) Outcome: Progressing Note: Evaluation of progress towards goal: Patient kept updated on plan of care, will continue to keep updated as new information arises Problem: Moderate - High Risk Fall Score Description: Bustamante Fall Score of =/> 25 or indicated by [facility] Assessment Goal: Patient should be free from fall Description: Interventions: 1. [place] to environment 2. Hourly rounds addressing the 4 P's (Pain, Positioning, Possessions, Potty) 3. Clear area of hazards (spills, clutter, electrical cords, unnecessary equipment) 4. Place equipment (bed & TV controls, call light, phone, urinal) within reach 5. Encourage patient to wear glasses and hearing aides as appropriate 6. Maintain bed in lowest position 7. Lock wheels on bed/wheelchair 8. Provide adequate lighting, including night light 9. Assess need for additional bedding, food/fluids, pain med's prior to sleep/routinely 10. Provide gripper slippers or personal non-skid footwear 11. Teach patient and patient arborist representative to maintain environment for safety and engage in all aspects of fall prevention program 12. Remind patient to call for help before getting out of bed 13. Initiate bed/chair/exit alarms supportive devices as appropriate, (chair wedge, no-skid floor mat, raised edge mattress, hip protectors) 14. Locate patient bed assignment for optimal visualization 15. Evaluate and identify Safe Patient Handling Equipment needs 16. Provide supervision when out of bed or chair 17. Utilize gait belt as needed to assist with ambulation 18. Place adaptive equipment (cane, walker) within reach 19. Request patient arborist representative bring adaptive equipment/mobility aids from home or obtain and provide as needed 20. Consult pharmacy regarding effects of med's affecting mobility, cognition, and alternatives 21. Obtain physician order for PT if risk factors associated with mobility are present 22. Obtain physician order for OT as appropriate 23. Utilize diversional activities 24. Educate patient and patient arborist representative how to maintain a safe environment during visitation times (notify nurse prior to leaving bedside) 25. Consider appropriateness of medical or non-medical front desk specialist 26. Set up voiding schedule as appropriate (every 2 hours) Outcome: Progressing Note: Evaluation of progress towards goal: Patient free from injury, will continue to provide a clean environment, personal objects in reach, and a well light room DISCHARGE PLANNING NOTE [facility] accepted referral and [facility] will not have a bed available. Social work contacted daughter to inform of above and daughter requested referral to [facility] and [facility]. Social work sent referral and [facility] is accepting referral. Social work contacted daughter to inquire about NSF preference and she is interested in [place]. Discharge written, CRF complete. [facility] notified of discharge and CRF sent. Daughter will transport patient this afternoon to SNF. RN updated. HENS submitted. - MILLIE CALL 06/12/24 11:23 AM Problem: Pain Goal: Patient goal is pain score less than 4, able to rest, and participant in treatment plan as appropriate Description: INTERVENTIONS: 1. Encourage patient or legal arborist representative to report early pain and ask for pain medicine when needed 2. Assess pain using appropriate pain scale and include the scale used when documenting 3. Administer analgesics based on type and severity of pain and evaluate response within appropriate time frame 4. Implement non-pharmacological measures as appropriate and evaluate response 5. Consider cultural and social influences on pain and pain management 6. Notify LIP if interventions ineffective or patient reports new pain 7. Monitor vital signs including pulse ox, end-tidal CO2 based on pain intervention 8. Reassess pain per policy 9. Teach patient or legal arborist representative interventions for comforting Outcome: Progressing Note: Evaluation of progress towards goal: Patient encouraged to report pain on a scale from 1-10. PRN pain medications available Problem: Safety Goal: Patient will be injury free during hospitalization Description: INTERVENTIONS: 1. Assess patient's risk for falls and implement fall prevention plan of care per policy 2. Provide and maintain a safe environment 3. Proper use of double Identifiers 4. Medication administration using the 5 rights 5. Hand hygiene 6. Specimens are labeled at the bedside 7. Instruct patient/ patient arborist representative about use of safety devices 8. Include patient/ patient arborist representative in decisions related to safety Outcome: Progressing Note: Evaluation of progress towards goal: Pt. Safety precautions maintained. Call light within reach, side rails up x2, bed alarm on Problem: Infection Goal: Absence of infection during hospitalization Description: INTERVENTIONS 1. Assess and monitor for signs and symptoms of infection. 2. Monitor lab/diagnostic results. 3. Monitor all insertion sites i.e., indwelling lines, tubes and drains. 4. Monitor endotracheal (as able) and nasal secretions for changes in amount and color. 5. Administer medications as ordered. 6. Instruct and encourage patient and family to use good hand hygiene technique. 7. Identify and instruct patient/patient arborist representative in use of appropriate isolation precautions for identified infection/symptoms. 8. Provide and discuss with patient/patient arborist representative on educational MDRO sheet. 9. Encourage and monitor nutritional status daily and consult senior oracle dba if indicated. 10. Implement neutropenic guidelines as needed. Outcome: Progressing Note: Evaluation of progress towards goal: Patient currently on IV antibiotics Problem: Knowledge Deficit Goal: Patient/patient arborist representative demonstrates understanding of disease process, treatment plan, medications, and discharge instructions Description: INTERVENTIONS 1. Complete learning assessment and assess knowledge base 2. Provide teaching at level of understanding 3. Provide teaching via preferred learning method(s) Outcome: Progressing Note: Evaluation of progress towards goal: Pt. Education on disease process, plan of care and medications. Pt. Verbalized understanding and all questions were answered. Problem: Discharge Planning Goal: Discharge to post-acute care, other facility, or home with appropriate resources Description: Patient's goal is: INTERVENTIONS 1. Conduct assessment to determine patient/family and health care team treatment goals, and need for post-acute services based on payer coverage, community resources, and patient preferences, and barriers to discharge 2. Coordinate with Social work, Care Navigation, and Utilization Review to arrange appropriate level of services according to patient's needs based on patient preference and payer coverage in collaboration with the physician and health care team 3. Address psychosocial, clinical, and financial barriers to discharge as identified in assessment in conjunction with the patient/family and health care team 4. Consult appropriate ancillary services (i.e.. PT/OT/ST, etc) as needed 5. Communicate with and update the patient/family, physician, and health care team regarding progress on the discharge plan 6. Identify discharge learning needs (meds, wound care, etc). 7. Arrange for needed discharge transportation as appropriate Outcome: Progressing Note: Evaluation of progress towards goal: Discharge plan progressing. PT/OT recommend SNF Problem: Potential for Compromised Skin Integrity Goal: Skin integrity is maintained or improved Description: Patient's goal is: INTERVENTIONS 1. Perform initial skin assessment on admission and as needed 2. Turn patient every 2 hours and PRN 3. Relieve pressure to bony prominences 4. Avoid shearing 5. Keep skin clean and dry 6. Alternate a full bath with partial baths for elderly 7. Apply lotion/moisturizer on skin 8. Monitor patient's hygiene practices 9. Float heels 10. Collaborate with interdisciplinary team and initiate plans and interventions as needed Outcome: Progressing Note: Evaluation of progress towards goal: Patient educated on repositioning to help prevent breakdown. Problem: Urinary Incontinence Goal: Perineal skin integrity is maintained or improved Description: INTERVENTIONS 1. Assess genitourinary system, perineal skin, labs (urinalysis), and history of incontinence to include past management, aggravating, and alleviating factors 2. Keep skin clean and dry 3. Apply skin protectant 4. Develop skin care regimen 5. Provide privacy when changing patients incontinence device to maintain their dignity 6. Consider placing an indwelling catheter 7. Collaborate with interdisciplinary team and initiate plans and interventions as needed Outcome: Progressing Note: Evaluation of progress towards goal: Perineal skin integrity is being maintained. Arenas catheter in place Problem: Moderate - High Risk Fall Score Description: Bustamante Fall Score of =/> 25 or indicated by [facility] Assessment Goal: Patient should be free from fall Description: Interventions: 1. [place] to environment 2. Hourly rounds addressing the 4 P's (Pain, Positioning, Possessions, Potty) 3. Clear area of hazards (spills, clutter, electrical cords, unnecessary equipment) 4. Place equipment (bed & TV controls, call light, phone, urinal) within reach 5. Encourage patient to wear glasses and hearing aides as appropriate 6. Maintain bed in lowest position 7. Lock wheels on bed/wheelchair 8. Provide adequate lighting, including night light 9. Assess need for additional bedding, food/fluids, pain med's prior to sleep/routinely 10. Provide gripper slippers or personal non-skid footwear 11. Teach patient and patient arborist representative to maintain environment for safety and engage in all aspects of fall prevention program 12. Remind patient to call for help before getting out of bed 13. Initiate bed/chair/exit alarms supportive devices as appropriate, (chair wedge, no-skid floor mat, raised edge mattress, hip protectors) 14. Locate patient bed assignment for optimal visualization 15. Evaluate and identify Safe Patient Handling Equipment needs 16. Provide supervision when out of bed or chair 17. Utilize gait belt as needed to assist with ambulation 18. Place adaptive equipment (cane, walker) within reach 19. Request patient arborist representative bring adaptive equipment/mobility aids from home or obtain and provide as needed 20. Consult pharmacy regarding effects of med's affecting mobility, cognition, and alternatives 21. Obtain physician order for PT if risk factors associated with mobility are present 22. Obtain physician order for OT as appropriate 23. Utilize diversional activities 24. Educate patient and patient arborist representative how to maintain a safe environment during visitation times (notify nurse prior to leaving bedside) 25. Consider appropriateness of medical or non-medical front desk specialist 26. Set up voiding schedule as appropriate (every 2 hours) Outcome: Progressing Note: Evaluation of progress towards goal: Pt. Safety precautions maintained. Call light within reach, side rails up x2, bed alarm on Problem: Neurological Deficit Goal: Neurological status is stable or improving Description: Patient's goal is: INTERVENTIONS 1. Complete Neurological assessment as indicated/ordered 2. Initiate measures to prevent increased intracranial pressure 3. Monitor and assess patient's level of consciousness, motor function, sensory function, and level of assistance needed for ADLs 4. Monitor and report changes from baseline 5. Maintain blood pressure and fluid volume within ordered parameters to optimize cerebral perfusion and minimize risk of hemorrhage 6. Monitor labs and diagnostic tests 7. Administer anti-seizure medications as ordered 8. Maintain airway, patient safety and administer oxygen as ordered 9. Monitor patient for seizure activity, document and report duration and description of seizure to LIP 10. If seizure occurs, turn patient to side and suction secretions as needed 11. Reorient patient post seizure 12. Seizure pads on all 4 side rails 13. Instruct patient/family to notify RN of any seizure activity 14. Instruct patient/family to call for assistance with activity based on assessment 15. Utilize bleeding precautions if thrombolytic given Outcome: Progressing Note: Evaluation of progress towards goal: Neuro status improving. Problem: Safety Goal: Patient will be injury free during hospitalization Description: INTERVENTIONS: 1. Assess patient's risk for falls and implement fall prevention plan of care per policy 2. Provide and maintain a safe environment 3. Proper use of double Identifiers 4. Medication administration using the 5 rights 5. Hand hygiene 6. Specimens are labeled at the bedside 7. Instruct patient/ patient arborist representative about use of safety devices 8. Include patient/ patient arborist representative in decisions related to safety Outcome: Progressing Note: Evaluation of progress towards goal: Patient free from injury, will continue to provide a clean environment, personal objects in reach, and a well light room Problem: Infection Goal: Absence of infection during hospitalization Description: INTERVENTIONS 1. Assess and monitor for signs and symptoms of infection. 2. Monitor lab/diagnostic results. 3. Monitor all insertion sites i.e., indwelling lines, tubes and drains. 4. Monitor endotracheal (as able) and nasal secretions for changes in amount and color. 5. Administer medications as ordered. 6. Instruct and encourage patient and family to use good hand hygiene technique. 7. Identify and instruct patient/patient arborist representative in use of appropriate isolation precautions for identified infection/symptoms. 8. Provide and discuss with patient/patient arborist representative on educational MDRO sheet. 9. Encourage and monitor nutritional status daily and consult senior oracle dba if indicated. 10. Implement neutropenic guidelines as needed. Outcome: Progressing Note: Evaluation of progress towards goal: patient is being treated with IV ATB. Problem: Knowledge Deficit Goal: Patient/patient arborist representative demonstrates understanding of disease process, treatment plan, medications, and discharge instructions Description: INTERVENTIONS 1. Complete learning assessment and assess knowledge base 2. Provide teaching at level of understanding 3. Provide teaching via preferred learning method(s) Outcome: Progressing Note: Evaluation of progress towards goal: Patient kept updated on plan of care, will continue to keep updated as new information arises Problem: Moderate - High Risk Fall Score Description: Bustamante Fall Score of =/> 25 or indicated by [facility] Assessment Goal: Patient should be free from fall Description: Interventions: 1. [place] to environment 2. Hourly rounds addressing the 4 P's (Pain, Positioning, Possessions, Potty) 3. Clear area of hazards (spills, clutter, electrical cords, unnecessary equipment) 4. Place equipment (bed & TV controls, call light, phone, urinal) within reach 5. Encourage patient to wear glasses and hearing aides as appropriate 6. Maintain bed in lowest position 7. Lock wheels on bed/wheelchair 8. Provide adequate lighting, including night light 9. Assess need for additional bedding, food/fluids, pain med's prior to sleep/routinely 10. Provide gripper slippers or personal non-skid footwear 11. Teach patient and patient arborist representative to maintain environment for safety and engage in all aspects of fall prevention program 12. Remind patient to call for help before getting out of bed 13. Initiate bed/chair/exit alarms supportive devices as appropriate, (chair wedge, no-skid floor mat, raised edge mattress, hip protectors) 14. Locate patient bed assignment for optimal visualization 15. Evaluate and identify Safe Patient Handling Equipment needs 16. Provide supervision when out of bed or chair 17. Utilize gait belt as needed to assist with ambulation 18. Place adaptive equipment (cane, walker) within reach 19. Request patient arborist representative bring adaptive equipment/mobility aids from home or obtain and provide as needed 20. Consult pharmacy regarding effects of med's affecting mobility, cognition, and alternatives 21. Obtain physician order for PT if risk factors associated with mobility are present 22. Obtain physician order for OT as appropriate 23. Utilize diversional activities 24. Educate patient and patient arborist representative how to maintain a safe environment during visitation times (notify nurse prior to leaving bedside) 25. Consider appropriateness of medical or non-medical front desk specialist 26. Set up voiding schedule as appropriate (every 2 hours) Outcome: Progressing Note: Evaluation of progress towards goal: Patient free from injury, will continue to provide a clean environment, personal objects in reach, and a well light room Problem: Neurological Deficit Goal: Neurological status is stable or improving Description: Patient's goal is: INTERVENTIONS 1. Complete Neurological assessment as indicated/ordered 2. Initiate measures to prevent increased intracranial pressure 3. Monitor and assess patient's level of consciousness, motor function, sensory function, and level of assistance needed for ADLs 4. Monitor and report changes from baseline 5. Maintain blood pressure and fluid volume within ordered parameters to optimize cerebral perfusion and minimize risk of hemorrhage 6. Monitor labs and diagnostic tests 7. Administer anti-seizure medications as ordered 8. Maintain airway, patient safety and administer oxygen as ordered 9. Monitor patient for seizure activity, document and report duration and description of seizure to LIP 10. If seizure occurs, turn patient to side and suction secretions as needed 11. Reorient patient post seizure 12. Seizure pads on all 4 side rails 13. Instruct patient/family to notify RN of any seizure activity 14. Instruct patient/family to call for assistance with activity based on assessment 15. Utilize bleeding precautions if thrombolytic given Outcome: Progressing Note: Evaluation of progress towards goal: patients neurological status is improving- patient is alert and oriented DISCHARGE PLANNING NOTE Referrals sent to [facility]/ [place], [place] (P# ; F# ) and to [facility] in [employer] (P#: [phone]; F#: ) DISCHARGE PLANNING NOTE Case discussed in daily transition rounds and chart reviewed by CN. Barriers to discharge include SNF arrangements, arenas Discharge Plan remains: SNF. Social work met with patient and daughter to finalize transition arrangements. Patient is now agreeable to SNF placement and patient and daughter are requesting referral to [facility] and [facility]. Social work task [facility] to send referral to above facilities- wait acceptance. Patient will not require precert for placement. CN will continue to follow and is available should any further needs arise. - MILLIE CALL 06/11/24 4:11 PM Physical Therapy Treatment Discharge Recommendations PT Recommendations: [facility] SNF[facility]ECF Comments: due to decreased functional independence from prior to hospitalization, inability to care for self, high fall risk 6 Clicks: Basic Mobility Turning from your back to your side while in a flat bed without using bed rails?: A little Moving from lying on your back to sitting on side of flat bed without using bed rails?: A little Moving to and from bed to a chair (including w/c)?: A little Standing up from a chair using your arms (e.g. w/c or bedside chair)?: A little To walk in hospital room?: A little Climbing 3-5 steps with a railing?: A little Scoring 6 Clicks: Basic Mobility Raw Score: 18 CMS G Code Modifier: CK Therapy Plan Need for skilled Physical Therapy to address deficits in functional mobility due to a status decline resulting from deconditioning and acute encephalopathy PT Treatment/Interventions: Functional transfer training, Endurance training, Patient/family training, Balance, Bed mobility, Stair training, Gait training, Functional activities, Neuromuscular reeducation PT Frequency: 2-3days/week PT Duration: LOS Patient Response to Treatment: Progressing toward goals Assessment Patient Assessment Therapy Problem List: Decreased balance, Decreased endurance, Decreased mobility, Decreased self-care trans, Decreased LE strength Patient Response to Treatment: Progressing toward goals Mood/Affect: Labile Rehab Prognosis: Fair, With continued PT status post acute discharge Visit RN Communication: Yes Medical Record Reviewed: Yes PT Type of Visit: Treatment Precautions Activity: early mobility, pass Equipment: gait belt, RW, arenas Telemetry/Furnace Keeper: Yes Oxygen Used: room air Other: High fall risk, impulsive, h/o ETOH abuse, non-receptive to education on safety, bed/chair alarm Pain Assessment Pain Assessment: No/denies pain Hearing / Speech / Vision Hearing: Within Functional Limits Speech: Within Functional Limits Current Vision: Wears glasses all the time Cognition Overall Cognitive Status: Exceptions to Within Functional Limits Arousal/Alertness: Appropriate responses to stimuli Attention Span: Difficulty attending to directions, Difficulty dividing attention Orientation Level: Oriented to person, Oriented to situation Following Commands: Follows one step commands with increased time, Follows one step commands with repetition Safety Judgment: Decreased awareness of need for assistance, Decreased awareness of need for safety Awareness of Errors: Decreased awareness of errors Insight of Deficits: Decreased awareness of deficits Problem Solving: Reduced Other: pt irritable and frustrated with not getting care he needs. pt requires max encouragement to partitipcate. daughter present and able to convince pt to amb with therapy. pt states he is weak but then refuses to amb Bed Mobility Other: not tested, pt up in chair with call light in reach before and after treatment Transfers Sit to Stand: Standby assist Stand to Sit: Standby assist Other: verbal cues to keep from aborting walker as arenas attatched to it Gait Base of Support: Narrow Pattern: Decreased nj, Forward trunk Gait Assistance: Contact guard assist Assistive Device: Rolling walker Gait Distance: 60' x 4 2 Turns: Yes Other: standing rest breaks due to fatigue as pt states i'm not tired, i'm fatigued Balance Balance Evaluation: Exceptions to Functional Limits Sitting Balance: Static: Good Sitting Balance: Dynamic: Good Standing Balance: Static: Good Standing Balance: Dynamic: Fair Other: with UE support Activity Tolerance Endurance: Tolerates <30 minutes activity WITHOUT vital sign changes Other: pt able to stand x 6 minutes at sink for ADL with good tolerance and balance Plan Physical Therapy Care Plan Physical Therapy Care Plan (Active) Template: PT - Physical Therapy Problem: Activity Tolerance Dates: Start: 06/09/24 Disciplines: PT Goal: Tolerate > 30 minutes of activity WITH rest breaks Dates: Start: 06/09/24 Expected End: 06/23/24 Description: Goal Description: Disciplines: PT Outcomes Date/Time User Outcome 06/11/241511 Horacio Erickson, PT Progressing Goal Note filed on 06/11/241511 by Horacio Erickson, PT Evaluation of progress towards goal: Problem: Bed Mobility Dates: Start: 06/09/24 Disciplines: PT Goal: Patient will perform bed mobility with Modified [place] Dates: Start: 06/09/24 Expected End: 06/23/24 Description: Goal Description: Disciplines: PT Problem: Gait Dates: Start: 06/09/24 Disciplines: PT Goal: Patient will perform gait with Modified [place] Dates: Start: 06/09/24 Expected End: 06/23/24 Description: With__RW__,__150__feet Goal Description: Disciplines: PT Outcomes Date/Time User Outcome 06/11/241511 Horacio Erickson PT Progressing Goal Note filed on 06/11/241511 by Horacio Erickson PT Evaluation of progress towards goal: Problem: Stairs/Curb Dates: Start: 06/09/24 Disciplines: PT Goal: Patient will perform stairs/curb with Stand By Assist Dates: Start: 06/09/24 Expected End: 06/23/24 Description: __4___steps,___SBA Goal Description: Disciplines: PT Problem: Standing Balance Dates: Start: 06/09/24 Disciplines: PT Goal: Improve balance to good Dates: Start: 06/09/24 Expected End: 06/23/24 Description: Static Dynamic Disciplines: PT Outcomes Date/Time User Outcome 06/11/241511 Horacio Erickson PT Progressing Goal Note filed on 06/11/241511 by Horacio Erickson PT Evaluation of progress towards goal: Problem: Transfers Dates: Start: 06/09/24 Disciplines: PT Goal: Patient will perform transfers with Modified [place] Dates: Start: 06/09/24 Expected End: 06/23/24 Description: Goal Description: Disciplines: PT Outcomes Date/Time User Outcome 06/11/24 151 Horacio Erickson PT Progressing Goal Note filed on 06/11/241511 by Horacio Erickson PT Evaluation of progress towards goal: Physical Therapy Care Plan (Resolved) There are no resolved problems. Principal Problem: Acute encephalopathy Occupational Therapy Treatment Discharge Recommendations OT Recommendations : [facility] SNF[facility]ECF Comments: Recommend SNF for continued therapy to reach PLOF. Pt at a high risk of falls and unsafe to return home alone. 6 Clicks: Daily Activity Putting on and taking off regular lower body clothing?: A lot Bathing (including washing, rinsing, drying)?: A little Toileting, which includes using toilet, bedpan or urinal?: A little Putting on and taking off regular upper body clothing?: A little Taking care of personal grooming such as brushing teeth?: A little Eating meals?: None Scoring Daily Activity Raw Score: 18 CMS G Code Modifier: CK Assessment Patient Assessment Patient Response to Treatment: Progressing toward goals Mood/Affect: Impulsive Visit RN Communication: Yes Medical Record Reviewed: Yes OT Type of Visit: Treatment Precautions Activity: Early mobility-pass, okay per JAMEE Mccray Equipment: Gait belt, RW, arenas Telemetry/Furnace Keeper: Yes Oxygen Used: Room air Other: High fall risk, impulsive, h/o ETOH abuse, non-receptive to education on safety, bed/chair alarm Pain Assessment Pain Assessment: No/denies pain ADL / IADL Where Assessed: Standing at sink, Chair Grooming Assistance: Contact guard assist LE Dressing Assistance: Mod assist Other: Pt required mod A to don pants at chair with increased time/cues and assist to thread arenas. Pt able to complete fastener on pants with increased time to complete. Pt stood at sink to brush teeth and wash face with CGA and verbal cues for safety. Home Management - IADL Other: Pt required mod A to don pants at chair with increased time/cues and assist to thread arenas. Pt able to complete fastener on pants with increased time to complete. Pt stood at sink to brush teeth and wash face with CGA and verbal cues for safety. Cognition Overall Cognitive Status: Exceptions to Within Functional Limits Attention Span: Difficulty attending to directions, Difficulty dividing attention Following Commands: Follows one step commands with increased time, Follows one step commands with repetition Safety Judgment: Decreased awareness of need for assistance, Decreased awareness of need for safety Awareness of Errors: Decreased awareness of errors Insight of Deficits: Decreased awareness of deficits Problem Solving: Reduced Bed Mobility Other: Pt in chair upon entrance and exit, chair alarm on, call light within reach, and all needs met. Transfers Sit to Stand: Standby assist Stand to Sit: Standby assist Other: Cues for safety Gait Gait Assistance: Contact guard assist Assistive Device: Rolling walker Gait Distance: 60' x4 Limiting Factors to Gait: Fatigue, Weakness, Decreased safety, Cognition/difficulty following directions Other: Standing rest breaks throughout, pt reports I'm not tired, I'm fatigued. Balance Sitting Balance: Static: Good Sitting Balance: Dynamic: Good Standing Balance: Static: Good Standing Balance: Dynamic: Fair Other: Pt sat unsupported in chair during LB dressing task without LOB. Pt completed static stand at sink with unilateral UE support and CGA. Activity Tolerance Endurance: Tolerates <30 minutes activity WITHOUT vital sign changes Other: Limited by fatigue, weakness, and cognition. Pt is impulsive and demo poor safety awareness throughout, required max cues. Plan Occupational Therapy Care Plan Occupational Therapy Care Plan (Active) Template: OT - Occupational Therapy Problem: Activity Tolerance Dates: Start: 06/09/24 Disciplines: OT Goal: Tolerate > 30 minutes of activity WITH rest breaks Dates: Start: 06/09/24 Expected End: 07/07/24 Description: Goal Description: Disciplines: OT Outcomes Date/Time User Outcome 06/11/24 1518 JERMAN Orr/Bartolome Progressing Goal Note filed on 06/11/24 1518 by JERMAN Orr/Bartolome Evaluation of progress towards goal: Problem: Bed Mobility Dates: Start: 06/09/24 Disciplines: OT Goal: Patient will perform bed mobility with Modified [place] Dates: Start: 06/09/24 Expected End: 07/07/24 Description: Goal Description: Disciplines: OT Problem: Cognition Dates: Start: 06/09/24 Disciplines: OT Goal: Patient's goal is: (specify details) Dates: Start: 06/09/24 Expected End: 07/07/24 Description: Pt will demonstrate good safety awareness 100% of the time Disciplines: OT Problem: Functional Mobility Dates: Start: 06/09/24 Disciplines: OT Goal: Patient will perform functional mobility with Modified [place] Dates: Start: 06/09/24 Expected End: 07/07/24 Description: Functional household distances Disciplines: OT Outcomes Date/Time User Outcome 06/11/24 1518 JERMAN Orr/Bartolome Progressing Goal Note filed on 06/11/241517 by JERMAN Orr/Bartolome Evaluation of progress towards goal: Problem: Other (Customize) Dates: Start: 06/09/24 Disciplines: OT Goal: Improve Dates: Start: 06/09/24 Expected End: 07/07/24 Description: Perform ADL's with mod I Disciplines: OT Outcomes Date/Time User Outcome 06/11/24 151 JERMAN Orr/Bartolome Progressing Goal Note filed on 06/11/24 151 by CY Orr Evaluation of progress towards goal: Problem: Standing Balance Dates: Start: 06/09/24 Disciplines: OT Goal: Improve balance to good Dates: Start: 06/09/24 Expected End: 07/07/24 Description: 10 mins standing activity to increase tolerance for grooming at the sink Disciplines: OT Outcomes Date/Time User Outcome 06/11/241517 JERMAN Orr/Bartolome Progressing Goal Note filed on 06/11/24 151 by JERMAN Orr/Bartolome Evaluation of progress towards goal: Problem: Strength Dates: Start: 06/09/24 Disciplines: OT Goal: Improve strength Dates: Start: 06/09/24 Expected End: 07/07/24 Description: Tolerate BUE HEP to increase strength to 5/5 Disciplines: OT Problem: Transfers Dates: Start: 06/09/24 Disciplines: OT Goal: Patient will perform transfers with Modified [place] Dates: Start: 06/09/24 Expected End: 07/07/24 Description: Goal Description: Disciplines: OT Outcomes Date/Time User Outcome 06/11/24 1518 JERMAN Orr/Bartolome Progressing Goal Note filed on 06/11/24 151 by CY Orr Evaluation of progress towards goal: Occupational Therapy Care Plan (Resolved) There are no resolved problems. Principal Problem: Acute encephalopathy Problem: Pain Goal: Patient goal is pain score less than 4, able to rest, and participant in treatment plan as appropriate Description: INTERVENTIONS: 1. Encourage patient or legal arborist representative to report early pain and ask for pain medicine when needed 2. Assess pain using appropriate pain scale and include the scale used when documenting 3. Administer analgesics based on type and severity of pain and evaluate response within appropriate time frame 4. Implement non-pharmacological measures as appropriate and evaluate response 5. Consider cultural and social influences on pain and pain management 6. Notify LIP if interventions ineffective or patient reports new pain 7. Monitor vital signs including pulse ox, end-tidal CO2 based on pain intervention 8. Reassess pain per policy 9. Teach patient or legal arborist representative interventions for comforting Outcome: Progressing Note: Evaluation of progress towards goal: Patient encouraged to report pain on a scale from 1-10. PRN pain medications available Problem: Safety Goal: Patient will be injury free during hospitalization Description: INTERVENTIONS: 1. Assess patient's risk for falls and implement fall prevention plan of care per policy 2. Provide and maintain a safe environment 3. Proper use of double Identifiers 4. Medication administration using the 5 rights 5. Hand hygiene 6. Specimens are labeled at the bedside 7. Instruct patient/ patient arborist representative about use of safety devices 8. Include patient/ patient arborist representative in decisions related to safety Outcome: Progressing Note: Evaluation of progress towards goal: Safety precautions maintained. Bed alarm on, side rails up x2, call light within reach. Problem: Infection Goal: Absence of infection during hospitalization Description: INTERVENTIONS 1. Assess and monitor for signs and symptoms of infection. 2. Monitor lab/diagnostic results. 3. Monitor all insertion sites i.e., indwelling lines, tubes and drains. 4. Monitor endotracheal (as able) and nasal secretions for changes in amount and color. 5. Administer medications as ordered. 6. Instruct and encourage patient and family to use good hand hygiene technique. 7. Identify and instruct patient/patient arborist representative in use of appropriate isolation precautions for identified infection/symptoms. 8. Provide and discuss with patient/patient arborist representative on educational MDRO sheet. 9. Encourage and monitor nutritional status daily and consult senior oracle dba if indicated. 10. Implement neutropenic guidelines as needed. Outcome: Progressing Note: Evaluation of progress towards goal: Patient currently on IV antibiotics Problem: Knowledge Deficit Goal: Patient/patient arborist representative demonstrates understanding of disease process, treatment plan, medications, and discharge instructions Description: INTERVENTIONS 1. Complete learning assessment and assess knowledge base 2. Provide teaching at level of understanding 3. Provide teaching via preferred learning method(s) Outcome: Progressing Note: Evaluation of progress towards goal: Patient and daughter (Maame) educated on medications and plan of care. All question answered Problem: Discharge Planning Goal: Discharge to post-acute care, other facility, or home with appropriate resources Description: Patient's goal is: INTERVENTIONS 1. Conduct assessment to determine patient/family and health care team treatment goals, and need for post-acute services based on payer coverage, community resources, and patient preferences, and barriers to discharge 2. Coordinate with Social work, Care Navigation, and Utilization Review to arrange appropriate level of services according to patient's needs based on patient preference and payer coverage in collaboration with the physician and health care team 3. Address psychosocial, clinical, and financial barriers to discharge as identified in assessment in conjunction with the patient/family and health care team 4. Consult appropriate ancillary services (i.e.. PT/OT/ST, etc) as needed 5. Communicate with and update the patient/family, physician, and health care team regarding progress on the discharge plan 6. Identify discharge learning needs (meds, wound care, etc). 7. Arrange for needed discharge transportation as appropriate Outcome: Progressing Note: Evaluation of progress towards goal: Discharge plan is progressing. PT/OT recommend SNF. Problem: Potential for Compromised Skin Integrity Goal: Skin integrity is maintained or improved Description: Patient's goal is: INTERVENTIONS 1. Perform initial skin assessment on admission and as needed 2. Turn patient every 2 hours and PRN 3. Relieve pressure to bony prominences 4. Avoid shearing 5. Keep skin clean and dry 6. Alternate a full bath with partial baths for elderly 7. Apply lotion/moisturizer on skin 8. Monitor patient's hygiene practices 9. Float heels 10. Collaborate with interdisciplinary team and initiate plans and interventions as needed Outcome: Progressing Note: Evaluation of progress towards goal: Skin integrity is being maintained. Patient able to turn self Problem: Urinary Incontinence Goal: Perineal skin integrity is maintained or improved Description: INTERVENTIONS 1. Assess genitourinary system, perineal skin, labs (urinalysis), and history of incontinence to include past management, aggravating, and alleviating factors 2. Keep skin clean and dry 3. Apply skin protectant 4. Develop skin care regimen 5. Provide privacy when changing patients incontinence device to maintain their dignity 6. Consider placing an indwelling catheter 7. Collaborate with interdisciplinary team and initiate plans and interventions as needed Outcome: Progressing Note: Evaluation of progress towards goal: Patient perineal skin integrity is being maintained. Arenas in place. Problem: Moderate - High Risk Fall Score Description: Bustamante Fall Score of =/> 25 or indicated by [facility] Assessment Goal: Patient should be free from fall Description: Interventions: 1. [place] to environment 2. Hourly rounds addressing the 4 P's (Pain, Positioning, Possessions, Potty) 3. Clear area of hazards (spills, clutter, electrical cords, unnecessary equipment) 4. Place equipment (bed & TV controls, call light, phone, urinal) within reach 5. Encourage patient to wear glasses and hearing aides as appropriate 6. Maintain bed in lowest position 7. Lock wheels on bed/wheelchair 8. Provide adequate lighting, including night light 9. Assess need for additional bedding, food/fluids, pain med's prior to sleep/routinely 10. Provide gripper slippers or personal non-skid footwear 11. Teach patient and patient arborist representative to maintain environment for safety and engage in all aspects of fall prevention program 12. Remind patient to call for help before getting out of bed 13. Initiate bed/chair/exit alarms supportive devices as appropriate, (chair wedge, no-skid floor mat, raised edge mattress, hip protectors) 14. Locate patient bed assignment for optimal visualization 15. Evaluate and identify Safe Patient Handling Equipment needs 16. Provide supervision when out of bed or chair 17. Utilize gait belt as needed to assist with ambulation 18. Place adaptive equipment (cane, walker) within reach 19. Request patient arborist representative bring adaptive equipment/mobility aids from home or obtain and provide as needed 20. Consult pharmacy regarding effects of med's affecting mobility, cognition, and alternatives 21. Obtain physician order for PT if risk factors associated with mobility are present 22. Obtain physician order for OT as appropriate 23. Utilize diversional activities 24. Educate patient and patient arborist representative how to maintain a safe environment during visitation times (notify nurse prior to leaving bedside) 25. Consider appropriateness of medical or non-medical front desk specialist 26. Set up voiding schedule as appropriate (every 2 hours) Outcome: Progressing Note: Evaluation of progress towards goal: Safety precautions in place. Bed alarm on, side rails up x2, call light within reach Problem: Neurological Deficit Goal: Neurological status is stable or improving Description: Patient's goal is: INTERVENTIONS 1. Complete Neurological assessment as indicated/ordered 2. Initiate measures to prevent increased intracranial pressure 3. Monitor and assess patient's level of consciousness, motor function, sensory function, and level of assistance needed for ADLs 4. Monitor and report changes from baseline 5. Maintain blood pressure and fluid volume within ordered parameters to optimize cerebral perfusion and minimize risk of hemorrhage 6. Monitor labs and diagnostic tests 7. Administer anti-seizure medications as ordered 8. Maintain airway, patient safety and administer oxygen as ordered 9. Monitor patient for seizure activity, document and report duration and description of seizure to LIP 10. If seizure occurs, turn patient to side and suction secretions as needed 11. Reorient patient post seizure 12. Seizure pads on all 4 side rails 13. Instruct patient/family to notify RN of any seizure activity 14. Instruct patient/family to call for assistance with activity based on assessment 15. Utilize bleeding precautions if thrombolytic given Outcome: Progressing Note: Evaluation of progress towards goal: neurological status is progressing. Neuro checks q4 Problem: Potential for Compromised Skin Integrity Goal: Patient's nutritional intake is adequate Description: Patient's goal is: INTERVENTIONS 1. Assess and monitor food intake and supplements, patient food preferences, nausea, vomiting, labs, oral cavity (gums, teeth, tongue, mucosa), proper denture fit, and cultural beliefs 2. Monitor for signs of hypoglycemia and hyperglycemia 3. Collaborate with interdisciplinary team and initiate plan and interventions as ordered 4. Monitor patient's weight 5. Assist patient with meals/food selection 6. Assist patient with eating 7. Allow adequate time for meals 8. Provide pleasant environment during mealtime 9. Increase social contact during mealtimes 10. Plan activities to conserve energy 11. Encourage/perform oral hygiene as appropriate 12. Encourage patient to take dietary supplement as ordered 13. Collaborate with clinical senior oracle dba 14. Include patient/ patient's arborist representative in decisions related to nutrition Outcome: Completed Note: Evaluation of progress towards goal: Nutritional intake is adequate DISCHARGE PLANNING NOTE Case discussed in daily transition rounds and chart reviewed by CN. Barriers to discharge include urinary retention Discharge Plan remains: TBD. PT./OT recommending SNF. Social work met with patient to inform of therapy recommendations and SNF list provided. Patient stating that he will need to discuss this with his daughter but does not see why he cannot return home at discharge. Social work offering to contact daughter to inform of therapy recommendations but patient would not give permission. Wait patient decision regarding transition plan. Patient will not require precert for placement. CN will continue to follow and is available should any further needs arise. - MILLIE CALL 06/10/24 11:43 AM Problem: Pain Goal: Patient goal is pain score less than 4, able to rest, and participant in treatment plan as appropriate Description: INTERVENTIONS: 1. Encourage patient or legal arborist representative to report early pain and ask for pain medicine when needed 2. Assess pain using appropriate pain scale and include the scale used when documenting 3. Administer analgesics based on type and severity of pain and evaluate response within appropriate time frame 4. Implement non-pharmacological measures as appropriate and evaluate response 5. Consider cultural and social influences on pain and pain management 6. Notify LIP if interventions ineffective or patient reports new pain 7. Monitor vital signs including pulse ox, end-tidal CO2 based on pain intervention 8. Reassess pain per policy 9. Teach patient or legal arborist representative interventions for comforting Outcome: Progressing Note: Evaluation of progress towards goal: Patient denies pain when prompted. Will continue to monitor. Problem: Safety Goal: Patient will be injury free during hospitalization Description: INTERVENTIONS: 1. Assess patient's risk for falls and implement fall prevention plan of care per policy 2. Provide and maintain a safe environment 3. Proper use of double Identifiers 4. Medication administration using the 5 rights 5. Hand hygiene 6. Specimens are labeled at the bedside 7. Instruct patient/ patient arborist representative about use of safety devices 8. Include patient/ patient arborist representative in decisions related to safety Outcome: Progressing Note: Evaluation of progress towards goal: Patient has remained free from injury during their hospital stay. Skin integrity remains intact. Fall precautions are in place. Will continue to monitor. Problem: Infection Goal: Absence of infection during hospitalization Description: INTERVENTIONS 1. Assess and monitor for signs and symptoms of infection. 2. Monitor lab/diagnostic results. 3. Monitor all insertion sites i.e., indwelling lines, tubes and drains. 4. Monitor endotracheal (as able) and nasal secretions for changes in amount and color. 5. Administer medications as ordered. 6. Instruct and encourage patient and family to use good hand hygiene technique. 7. Identify and instruct patient/patient arborist representative in use of appropriate isolation precautions for identified infection/symptoms. 8. Provide and discuss with patient/patient arborist representative on educational MDRO sheet. 9. Encourage and monitor nutritional status daily and consult senior oracle dba if indicated. 10. Implement neutropenic guidelines as needed. Outcome: Progressing Note: Evaluation of progress towards goal: Patient has remained free from infection during hospital stay. Patient is afebrile and last WBC was 6.7. Will continue using standard precautions and monitoring for signs and symptoms of infection. Problem: Knowledge Deficit Goal: Patient/patient arborist representative demonstrates understanding of disease process, treatment plan, medications, and discharge instructions Description: INTERVENTIONS 1. Complete learning assessment and assess knowledge base 2. Provide teaching at level of understanding 3. Provide teaching via preferred learning method(s) Outcome: Progressing Note: Evaluation of progress towards goal: Patient and/or family has demonstrated appropriate knowledge regarding care plan, disease process, medications, and discharge planning. Will continue to engage and encourage questions. Problem: Discharge Planning Goal: Discharge to post-acute care, other facility, or home with appropriate resources Description: Patient's goal is: INTERVENTIONS 1. Conduct assessment to determine patient/family and health care team treatment goals, and need for post-acute services based on payer coverage, community resources, and patient preferences, and barriers to discharge 2. Coordinate with Social work, Care Navigation, and Utilization Review to arrange appropriate level of services according to patient's needs based on patient preference and payer coverage in collaboration with the physician and health care team 3. Address psychosocial, clinical, and financial barriers to discharge as identified in assessment in conjunction with the patient/family and health care team 4. Consult appropriate ancillary services (i.e.. PT/OT/ST, etc) as needed 5. Communicate with and update the patient/family, physician, and health care team regarding progress on the discharge plan 6. Identify discharge learning needs (meds, wound care, etc). 7. Arrange for needed discharge transportation as appropriate Outcome: Progressing Note: Evaluation of progress towards goal: Appropriate coordination with ancillary departments in place for acute care transition according to patient preference. Problem: Potential for Compromised Skin Integrity Goal: Skin integrity is maintained or improved Description: Patient's goal is: INTERVENTIONS 1. Perform initial skin assessment on admission and as needed 2. Turn patient every 2 hours and PRN 3. Relieve pressure to bony prominences 4. Avoid shearing 5. Keep skin clean and dry 6. Alternate a full bath with partial baths for elderly 7. Apply lotion/moisturizer on skin 8. Monitor patient's hygiene practices 9. Float heels 10. Collaborate with interdisciplinary team and initiate plans and interventions as needed Outcome: Progressing Note: Evaluation of progress towards goal: Patient's skin integrity has remained the same throughout this hospital stay. No new abnormalities have been reported. Will continue to assess bony prominences as well as other skin surfaces for potential shearing issues. Goal: Patient's nutritional intake is adequate Description: Patient's goal is: INTERVENTIONS 1. Assess and monitor food intake and supplements, patient food preferences, nausea, vomiting, labs, oral cavity (gums, teeth, tongue, mucosa), proper denture fit, and cultural beliefs 2. Monitor for signs of hypoglycemia and hyperglycemia 3. Collaborate with interdisciplinary team and initiate plan and interventions as ordered 4. Monitor patient's weight 5. Assist patient with meals/food selection 6. Assist patient with eating 7. Allow adequate time for meals 8. Provide pleasant environment during mealtime 9. Increase social contact during mealtimes 10. Plan activities to conserve energy 11. Encourage/perform oral hygiene as appropriate 12. Encourage patient to take dietary supplement as ordered 13. Collaborate with clinical senior oracle dba 14. Include patient/ patient's arborist representative in decisions related to nutrition Outcome: Progressing Note: Evaluation of progress towards goal: Patient appears to have adequate nutritional intake. Problem: Moderate - High Risk Fall Score Description: Bustamante Fall Score of =/> 25 or indicated by [facility] Assessment Goal: Patient should be free from fall Description: Interventions: 1. [place] to environment 2. Hourly rounds addressing the 4 P's (Pain, Positioning, Possessions, Potty) 3. Clear area of hazards (spills, clutter, electrical cords, unnecessary equipment) 4. Place equipment (bed & TV controls, call light, phone, urinal) within reach 5. Encourage patient to wear glasses and hearing aides as appropriate 6. Maintain bed in lowest position 7. Lock wheels on bed/wheelchair 8. Provide adequate lighting, including night light 9. Assess need for additional bedding, food/fluids, pain med's prior to sleep/routinely 10. Provide gripper slippers or personal non-skid footwear 11. Teach patient and patient arborist representative to maintain environment for safety and engage in all aspects of fall prevention program 12. Remind patient to call for help before getting out of bed 13. Initiate bed/chair/exit alarms supportive devices as appropriate, (chair wedge, no-skid floor mat, raised edge mattress, hip protectors) 14. Locate patient bed assignment for optimal visualization 15. Evaluate and identify Safe Patient Handling Equipment needs 16. Provide supervision when out of bed or chair 17. Utilize gait belt as needed to assist with ambulation 18. Place adaptive equipment (cane, walker) within reach 19. Request patient arborist representative bring adaptive equipment/mobility aids from home or obtain and provide as needed 20. Consult pharmacy regarding effects of med's affecting mobility, cognition, and alternatives 21. Obtain physician order for PT if risk factors associated with mobility are present 22. Obtain physician order for OT as appropriate 23. Utilize diversional activities 24. Educate patient and patient arborist representative how to maintain a safe environment during visitation times (notify nurse prior to leaving bedside) 25. Consider appropriateness of medical or non-medical front desk specialist 26. Set up voiding schedule as appropriate (every 2 hours) Outcome: Progressing Note: Evaluation of progress towards goal: Fall precautions are in place. Call light is within reach. Table and belonging are within reach at the bedside. Adequate lighting has been provided. Hourly rounding has been performed. Will continue to monitor. Problem: Neurological Deficit Goal: Neurological status is stable or improving Description: Patient's goal is: INTERVENTIONS 1. Complete Neurological assessment as indicated/ordered 2. Initiate measures to prevent increased intracranial pressure 3. Monitor and assess patient's level of consciousness, motor function, sensory function, and level of assistance needed for ADLs 4. Monitor and report changes from baseline 5. Maintain blood pressure and fluid volume within ordered parameters to optimize cerebral perfusion and minimize risk of hemorrhage 6. Monitor labs and diagnostic tests 7. Administer anti-seizure medications as ordered 8. Maintain airway, patient safety and administer oxygen as ordered 9. Monitor patient for seizure activity, document and report duration and description of seizure to LIP 10. If seizure occurs, turn patient to side and suction secretions as needed 11. Reorient patient post seizure 12. Seizure pads on all 4 side rails 13. Instruct patient/family to notify RN of any seizure activity 14. Instruct patient/family to call for assistance with activity based on assessment 15. Utilize bleeding precautions if thrombolytic given Outcome: Progressing Note: Evaluation of progress towards goal: Neurologic status remains stable. Monitoring and assessments are being performed as ordered by the prescriber. Fluid balance is being maintained to promote optimum cerebral perfusion. Cosigned by Rebecca Arredondo RN at 06/10/2024 11:38 AM EST Associated attestation - Rebecca Arredondo RN - 06/10/2024 11:38 AM EST RN agrees with care plans - Rebecca Arredondo RN 06/10/24 11:38 AM Problem: Pain Goal: Patient goal is pain score less than 4, able to rest, and participant in treatment plan as appropriate Description: INTERVENTIONS: 1. Encourage patient or legal arborist representative to report early pain and ask for pain medicine when needed 2. Assess pain using appropriate pain scale and include the scale used when documenting 3. Administer analgesics based on type and severity of pain and evaluate response within appropriate time frame 4. Implement non-pharmacological measures as appropriate and evaluate response 5. Consider cultural and social influences on pain and pain management 6. Notify LIP if interventions ineffective or patient reports new pain 7. Monitor vital signs including pulse ox, end-tidal CO2 based on pain intervention 8. Reassess pain per policy 9. Teach patient or legal arborist representative interventions for comforting Outcome: Progressing Note: Evaluation of progress towards goal: Patient encouraged to report pain occurrence. Pain to be assessed using 0-10 scale. Pain control with scheduled & PRN pain medication. Pain to be reassessed with in an hour of intervention. Problem: Safety Goal: Patient will be injury free during hospitalization Description: INTERVENTIONS: 1. Assess patient's risk for falls and implement fall prevention plan of care per policy 2. Provide and maintain a safe environment 3. Proper use of double Identifiers 4. Medication administration using the 5 rights 5. Hand hygiene 6. Specimens are labeled at the bedside 7. Instruct patient/ patient arborist representative about use of safety devices 8. Include patient/ patient arborist representative in decisions related to safety Outcome: Progressing Note: Evaluation of progress towards goal: patient remains free from injury at this time. Safety precautions in place. Problem: Infection Goal: Absence of infection during hospitalization Description: INTERVENTIONS 1. Assess and monitor for signs and symptoms of infection. 2. Monitor lab/diagnostic results. 3. Monitor all insertion sites i.e., indwelling lines, tubes and drains. 4. Monitor endotracheal (as able) and nasal secretions for changes in amount and color. 5. Administer medications as ordered. 6. Instruct and encourage patient and family to use good hand hygiene technique. 7. Identify and instruct patient/patient arborist representative in use of appropriate isolation precautions for identified infection/symptoms. 8. Provide and discuss with patient/patient arborist representative on educational MDRO sheet. 9. Encourage and monitor nutritional status daily and consult senior oracle dba if indicated. 10. Implement neutropenic guidelines as needed. Outcome: Progressing Note: Evaluation of progress towards goal: Hospice Home Care Coordinator assessed pt risk for infection in the beginning and throughout shift. Pt remains afebrile. Will continue to monitor. Problem: Knowledge Deficit Goal: Patient/patient arborist representative demonstrates understanding of disease process, treatment plan, medications, and discharge instructions Description: INTERVENTIONS 1. Complete learning assessment and assess knowledge base 2. Provide teaching at level of understanding 3. Provide teaching via preferred learning method(s) Outcome: Progressing Note: Evaluation of progress towards goal: Hospice Home Care Coordinator educated pt on admission disease, medications, treatment, and discharge planning. Will continue to monitor. Problem: Discharge Planning Goal: Discharge to post-acute care, other facility, or home with appropriate resources Description: Patient's goal is: INTERVENTIONS 1. Conduct assessment to determine patient/family and health care team treatment goals, and need for post-acute services based on payer coverage, community resources, and patient preferences, and barriers to discharge 2. Coordinate with Social work, Care Navigation, and Utilization Review to arrange appropriate level of services according to patient's needs based on patient preference and payer coverage in collaboration with the physician and health care team 3. Address psychosocial, clinical, and financial barriers to discharge as identified in assessment in conjunction with the patient/family and health care team 4. Consult appropriate ancillary services (i.e.. PT/OT/ST, etc) as needed 5. Communicate with and update the patient/family, physician, and health care team regarding progress on the discharge plan 6. Identify discharge learning needs (meds, wound care, etc). 7. Arrange for needed discharge transportation as appropriate Outcome: Progressing Note: Evaluation of progress towards goal: daughter and patient informed of care and progression of stay, included in plan of care and discharge Problem: Potential for Compromised Skin Integrity Goal: Skin integrity is maintained or improved Description: Patient's goal is: INTERVENTIONS 1. Perform initial skin assessment on admission and as needed 2. Turn patient every 2 hours and PRN 3. Relieve pressure to bony prominences 4. Avoid shearing 5. Keep skin clean and dry 6. Alternate a full bath with partial baths for elderly 7. Apply lotion/moisturizer on skin 8. Monitor patient's hygiene practices 9. Float heels 10. Collaborate with interdisciplinary team and initiate plans and interventions as needed Outcome: Progressing Note: Evaluation of progress towards goal: patient is encouraged to reposition self, pillow support is provided Goal: Patient's nutritional intake is adequate Description: Patient's goal is: INTERVENTIONS 1. Assess and monitor food intake and supplements, patient food preferences, nausea, vomiting, labs, oral cavity (gums, teeth, tongue, mucosa), proper denture fit, and cultural beliefs 2. Monitor for signs of hypoglycemia and hyperglycemia 3. Collaborate with interdisciplinary team and initiate plan and interventions as ordered 4. Monitor patient's weight 5. Assist patient with meals/food selection 6. Assist patient with eating 7. Allow adequate time for meals 8. Provide pleasant environment during mealtime 9. Increase social contact during mealtimes 10. Plan activities to conserve energy 11. Encourage/perform oral hygiene as appropriate 12. Encourage patient to take dietary supplement as ordered 13. Collaborate with clinical senior oracle dba 14. Include patient/ patient's arborist representative in decisions related to nutrition Outcome: Progressing Note: Evaluation of progress towards goal: patient has adequate nutritional intake Problem: Urinary Incontinence Goal: Perineal skin integrity is maintained or improved Description: INTERVENTIONS 1. Assess genitourinary system, perineal skin, labs (urinalysis), and history of incontinence to include past management, aggravating, and alleviating factors 2. Keep skin clean and dry 3. Apply skin protectant 4. Develop skin care regimen 5. Provide privacy when changing patients incontinence device to maintain their dignity 6. Consider placing an indwelling catheter 7. Collaborate with interdisciplinary team and initiate plans and interventions as needed Outcome: Progressing Note: Evaluation of progress towards goal: patient arenas was removed today, bladder scanned per orders Problem: Moderate - High Risk Fall Score Description: Bustamante Fall Score of =/> 25 or indicated by [facility] Assessment Goal: Patient should be free from fall Description: Interventions: 1. [place] to environment 2. Hourly rounds addressing the 4 P's (Pain, Positioning, Possessions, Potty) 3. Clear area of hazards (spills, clutter, electrical cords, unnecessary equipment) 4. Place equipment (bed & TV controls, call light, phone, urinal) within reach 5. Encourage patient to wear glasses and hearing aides as appropriate 6. Maintain bed in lowest position 7. Lock wheels on bed/wheelchair 8. Provide adequate lighting, including night light 9. Assess need for additional bedding, food/fluids, pain med's prior to sleep/routinely 10. Provide gripper slippers or personal non-skid footwear 11. Teach patient and patient arborist representative to maintain environment for safety and engage in all aspects of fall prevention program 12. Remind patient to call for help before getting out of bed 13. Initiate bed/chair/exit alarms supportive devices as appropriate, (chair wedge, no-skid floor mat, raised edge mattress, hip protectors) 14. Locate patient bed assignment for optimal visualization 15. Evaluate and identify Safe Patient Handling Equipment needs 16. Provide supervision when out of bed or chair 17. Utilize gait belt as needed to assist with ambulation 18. Place adaptive equipment (cane, walker) within reach 19. Request patient arborist representative bring adaptive equipment/mobility aids from home or obtain and provide as needed 20. Consult pharmacy regarding effects of med's affecting mobility, cognition, and alternatives 21. Obtain physician order for PT if risk factors associated with mobility are present 22. Obtain physician order for OT as appropriate 23. Utilize diversional activities 24. Educate patient and patient arborist representative how to maintain a safe environment during visitation times (notify nurse prior to leaving bedside) 25. Consider appropriateness of medical or non-medical front desk specialist 26. Set up voiding schedule as appropriate (every 2 hours) Outcome: Progressing Note: Evaluation of progress towards goal: Hospice Home Care Coordinator assessed pt fall precautions in the beginning and throughout shift. Pt room left free of clutter, pt has all belongings and call light within reach. Will continue to monitor. Problem: Neurological Deficit Goal: Neurological status is stable or improving Description: Patient's goal is: INTERVENTIONS 1. Complete Neurological assessment as indicated/ordered 2. Initiate measures to prevent increased intracranial pressure 3. Monitor and assess patient's level of consciousness, motor function, sensory function, and level of assistance needed for ADLs 4. Monitor and report changes from baseline 5. Maintain blood pressure and fluid volume within ordered parameters to optimize cerebral perfusion and minimize risk of hemorrhage 6. Monitor labs and diagnostic tests 7. Administer anti-seizure medications as ordered 8. Maintain airway, patient safety and administer oxygen as ordered 9. Monitor patient for seizure activity, document and report duration and description of seizure to LIP 10. If seizure occurs, turn patient to side and suction secretions as needed 11. Reorient patient post seizure 12. Seizure pads on all 4 side rails 13. Instruct patient/family to notify RN of any seizure activity 14. Instruct patient/family to call for assistance with activity based on assessment 15. Utilize bleeding precautions if thrombolytic given Outcome: Progressing Note: Evaluation of progress towards goal: patients mentation waxes and wanes. Neuro assessments Q4 hrs. Problem: Pain Goal: Patient goal is pain score less than 4, able to rest, and participant in treatment plan as appropriate Description: INTERVENTIONS: 1. Encourage patient or legal arborist representative to report early pain and ask for pain medicine when needed 2. Assess pain using appropriate pain scale and include the scale used when documenting 3. Administer analgesics based on type and severity of pain and evaluate response within appropriate time frame 4. Implement non-pharmacological measures as appropriate and evaluate response 5. Consider cultural and social influences on pain and pain management 6. Notify LIP if interventions ineffective or patient reports new pain 7. Monitor vital signs including pulse ox, end-tidal CO2 based on pain intervention 8. Reassess pain per policy 9. Teach patient or legal arborist representative interventions for comforting Outcome: Progressing Note: Evaluation of progress towards goal: pt denied any pain Problem: Safety Goal: Patient will be injury free during hospitalization Description: INTERVENTIONS: 1. Assess patient's risk for falls and implement fall prevention plan of care per policy 2. Provide and maintain a safe environment 3. Proper use of double Identifiers 4. Medication administration using the 5 rights 5. Hand hygiene 6. Specimens are labeled at the bedside 7. Instruct patient/ patient arborist representative about use of safety devices 8. Include patient/ patient arborist representative in decisions related to safety Outcome: Progressing Note: Evaluation of progress towards goal: pt remained free of injury Problem: Infection Goal: Absence of infection during hospitalization Description: INTERVENTIONS 1. Assess and monitor for signs and symptoms of infection. 2. Monitor lab/diagnostic results. 3. Monitor all insertion sites i.e., indwelling lines, tubes and drains. 4. Monitor endotracheal (as able) and nasal secretions for changes in amount and color. 5. Administer medications as ordered. 6. Instruct and encourage patient and family to use good hand hygiene technique. 7. Identify and instruct patient/patient arborist representative in use of appropriate isolation precautions for identified infection/symptoms. 8. Provide and discuss with patient/patient arborist representative on educational MDRO sheet. 9. Encourage and monitor nutritional status daily and consult senior oracle dba if indicated. 10. Implement neutropenic guidelines as needed. Outcome: Progressing Note: Evaluation of progress towards goal: pt afebrile. Continued IV antibx Problem: Potential for Compromised Skin Integrity Goal: Skin integrity is maintained or improved Description: Patient's goal is: INTERVENTIONS 1. Perform initial skin assessment on admission and as needed 2. Turn patient every 2 hours and PRN 3. Relieve pressure to bony prominences 4. Avoid shearing 5. Keep skin clean and dry 6. Alternate a full bath with partial baths for elderly 7. Apply lotion/moisturizer on skin 8. Monitor patient's hygiene practices 9. Float heels 10. Collaborate with interdisciplinary team and initiate plans and interventions as needed Outcome: Progressing Note: Evaluation of progress towards goal: pillow support, turned self. Problem: Moderate - High Risk Fall Score Description: Bustamante Fall Score of =/> 25 or indicated by [facility] Assessment Goal: Patient should be free from fall Description: Interventions: 1. [place] to environment 2. Hourly rounds addressing the 4 P's (Pain, Positioning, Possessions, Potty) 3. Clear area of hazards (spills, clutter, electrical cords, unnecessary equipment) 4. Place equipment (bed & TV controls, call light, phone, urinal) within reach 5. Encourage patient to wear glasses and hearing aides as appropriate 6. Maintain bed in lowest position 7. Lock wheels on bed/wheelchair 8. Provide adequate lighting, including night light 9. Assess need for additional bedding, food/fluids, pain med's prior to sleep/routinely 10. Provide gripper slippers or personal non-skid footwear 11. Teach patient and patient arborist representative to maintain environment for safety and engage in all aspects of fall prevention program 12. Remind patient to call for help before getting out of bed 13. Initiate bed/chair/exit alarms supportive devices as appropriate, (chair wedge, no-skid floor mat, raised edge mattress, hip protectors) 14. Locate patient bed assignment for optimal visualization 15. Evaluate and identify Safe Patient Handling Equipment needs 16. Provide supervision when out of bed or chair 17. Utilize gait belt as needed to assist with ambulation 18. Place adaptive equipment (cane, walker) within reach 19. Request patient arborist representative bring adaptive equipment/mobility aids from home or obtain and provide as needed 20. Consult pharmacy regarding effects of med's affecting mobility, cognition, and alternatives 21. Obtain physician order for PT if risk factors associated with mobility are present 22. Obtain physician order for OT as appropriate 23. Utilize diversional activities 24. Educate patient and patient arborist representative how to maintain a safe environment during visitation times (notify nurse prior to leaving bedside) 25. Consider appropriateness of medical or non-medical front desk specialist 26. Set up voiding schedule as appropriate (every 2 hours) Outcome: Progressing Note: Evaluation of progress towards goal: fall precautions maintaind Problem: Neurological Deficit Goal: Neurological status is stable or improving Description: Patient's goal is: INTERVENTIONS 1. Complete Neurological assessment as indicated/ordered 2. Initiate measures to prevent increased intracranial pressure 3. Monitor and assess patient's level of consciousness, motor function, sensory function, and level of assistance needed for ADLs 4. Monitor and report changes from baseline 5. Maintain blood pressure and fluid volume within ordered parameters to optimize cerebral perfusion and minimize risk of hemorrhage 6. Monitor labs and diagnostic tests 7. Administer anti-seizure medications as ordered 8. Maintain airway, patient safety and administer oxygen as ordered 9. Monitor patient for seizure activity, document and report duration and description of seizure to LIP 10. If seizure occurs, turn patient to side and suction secretions as needed 11. Reorient patient post seizure 12. Seizure pads on all 4 side rails 13. Instruct patient/family to notify RN of any seizure activity 14. Instruct patient/family to call for assistance with activity based on assessment 15. Utilize bleeding precautions if thrombolytic given Outcome: Progressing Note: Evaluation of progress towards goal: wax/wane with mentation. Q4 neuros checked Occupational Therapy Evaluation Discharge Recommendations OT Recommendations : [facility] SN[facility]ECF Comments: Recommend SNF for continued therapy to reach PLOF. Pt at a high risk of falls and unsafe to return home alone. 6 Clicks: Daily Activity Putting on and taking off regular lower body clothing?: A lot Bathing (including washing, rinsing, drying)?: A little Toileting, which includes using toilet, bedpan or urinal?: A little Putting on and taking off regular upper body clothing?: A little Taking care of personal grooming such as brushing teeth?: A little Eating meals?: None Scoring Daily Activity Raw Score: 18 [facility] G Code Modifier: CK Therapy Plan Need for skilled Occupational Therapy to address deficits in ADL independence and functional mobility due to a status decline resulting from encephalopathy. Pt is a 68 yo male admitted to an outside hospital 06/06/2024 with confusion and hallucinations. MRI brain: (-) acute infarct Abd US: concerns for acute vs chronic cholecystitis Pt experienced fall 06/07/2024. CT head showed B subdural fluid collection/hygromas without significant mass effect. Repeat MRI brain pending. Past Medical History: Diagnosis Date Abnormal EKG Atrial fibrillation ([facility]) Back pain Bradycardia Chronic atrial fibrillation ([facility]) Hypertension Hypertensive heart disease without heart failure Hypokalemia Pure hypercholesterolemia Urinary tract infection 01/2019 seen by [facility] No past surgical history on file. OT Treatment/Interventions: ADL retraining, Functional transfer training, UE strengthening/ROM, Endurance training, Cognitive reorientation, Patient/family training, Equipment eval/education, Home management, Balance, Bed mobility, Compensatory technique education, Functional activities OT Frequency: 2-3days/week (Increase frequency as patient if patient becomes more participatory) OT Duration: LOS Assessment Patient Assessment Therapy Problem List: Decreased ADL status, Decreased balance, Decreased cognition, Decreased endurance, Decreased high-level ADLs, Decreased mobility, Decreased safe judgement during ADL, Decreased self-care trans, Decreased UE strength Patient Response to Treatment: Tolerated evaluation without adverse reaction Mood/Affect: Blunted Rehab Prognosis: Fair, With continued OT status post acute discharge Visit RN Communication: Yes Medical Record Reviewed: Yes OT Type of Visit: Evaluation Precautions Activity: Activity as tolerated per early mobility guidelines Equipment: Gait belt, RW, aernas Telemetry/Furnace Keeper: Yes Oxygen Used: Room air Other: High fall risk, impulsive, h/o ETOH abuse, non-receptive to education on safety Pain Assessment Pain Assessment: No/denies pain Home Living Type of Home: Mobile home Home Layout: One level Stairs to Enter: 4 Hand Rails: None Stairs in Home: 0 Bathroom Shower/Tub: Tub/shower unit Bathroom Toilet: Standard Other : Pt not forthcoming with home information. Pt irritated with therapist's questions. Prior Function Lives With: Alone Receives Help From: Family Level of Mobility: Independent with ADLs and functional transfers or gait Homemaking Assistance: Independent ADL / IADL Hand Dominance: Right Eating Assistance: Independent Grooming Assistance: Min assist (standing) Bathing/Showering Assistance: Min assist Toilet/Commode Assistance: Mod assist UE Dressing Assistance: Min assist LE Dressing Assistance: Mod assist Footwear Assistance: Total assist Other: Pt donne gown at bedside with assistance to tie in back. Total assistance to don socks while supine. Home Management - IADL Other: Pt donne gown at bedside with assistance to tie in back. Total assistance to don socks while supine. Hearing / Speech / Vision Hearing: Within Functional Limits Speech: Within Functional Limits Current Vision: Wears glasses all the time Cognition Overall Cognitive Status: Exceptions to Within Functional Limits Attention Span: Difficulty attending to directions, Difficulty dividing attention Memory: Decreased recall of precautions Orientation Level: Oriented to person Following Commands: (Pt selectively following therapist's directions) Safety Judgment: Decreased awareness of need for safety, Decreased awareness of need for assistance Awareness of Errors: Assistance required to correct errors made, Assistance required to identify errors made Insight of Deficits: Not aware of deficits Problem Solving: Reduced Other: Pt cantankerous throughout evaluation. Frequently stating you're keeping secrets from me . Pt very irritable, not receptive to any education. Bed Mobility Supine to Sit: Stand by assist Other: Pt in chair following evaluation. Call light in reach and encouraged to call for assist. Chair alarm on. Transfers Sit to Stand: Standby assist Stand to Sit: Standby assist Other: Pt impulsively standing at bedside despite being attached to IV line, arenas, and telemetry. Gait Gait Assistance: Contact guard assist Assistive Device: Rolling walker Gait Distance: 50 ft Limiting Factors to Gait: Decreased safety, Cognition/difficulty following directions Other: Pt ambulated short distance in hallway. HR increased to 150-160 and pt unable to be redirected back to his room. RN brought chair to patient for safety. No major LOB. Balance Balance Evaluation: Exceptions to Functional Limits Sitting Balance: Static: Good Sitting Balance: Dynamic: Good Standing Balance: Static: Good Standing Balance: Dynamic: Fair RUE Assessment: (4/5 grossly) LUE Assessment: (4/5 grossly) Activity Tolerance Endurance: Tolerates <30 minutes activity WITHOUT vital sign changes Other: HR increased to 150-160 with ambulation Plan Occupational Therapy Care Plan Occupational Therapy Care Plan (Active) Template: OT - Occupational Therapy Problem: Activity Tolerance Dates: Start: 06/09/24 Disciplines: OT Goal: Tolerate > 30 minutes of activity WITH rest breaks Dates: Start: 06/09/24 Expected End: 07/07/24 Description: Goal Description: Disciplines: OT Problem: Bed Mobility Dates: Start: 06/09/24 Disciplines: OT Goal: Patient will perform bed mobility with Modified [place] Dates: Start: 06/09/24 Expected End: 07/07/24 Description: Goal Description: Disciplines: OT Problem: Cognition Dates: Start: 06/09/24 Disciplines: OT Goal: Patient's goal is: (specify details) Dates: Start: 06/09/24 Expected End: 07/07/24 Description: Pt will demonstrate good safety awareness 100% of the time Disciplines: OT Problem: Functional Mobility Dates: Start: 06/09/24 Disciplines: OT Goal: Patient will perform functional mobility with Modified [place] Dates: Start: 06/09/24 Expected End: 07/07/24 Description: Functional household distances Disciplines: OT Problem: Other (Customize) Dates: Start: 06/09/24 Disciplines: OT Goal: Improve Dates: Start: 06/09/24 Expected End: 07/07/24 Description: Perform ADL's with mod I Disciplines: OT Problem: Standing Balance Dates: Start: 06/09/24 Disciplines: OT Goal: Improve balance to good Dates: Start: 06/09/24 Expected End: 07/07/24 Description: 10 mins standing activity to increase tolerance for grooming at the sink Disciplines: OT Problem: Strength Dates: Start: 06/09/24 Disciplines: OT Goal: Improve strength Dates: Start: 06/09/24 Expected End: 07/07/24 Description: Tolerate BUE HEP to increase strength to 5/5 Disciplines: OT Problem: Transfers Dates: Start: 06/09/24 Disciplines: OT Goal: Patient will perform transfers with Modified [place] Dates: Start: 06/09/24 Expected End: 07/07/24 Description: Goal Description: Disciplines: OT Occupational Therapy Care Plan (Resolved) There are no resolved problems. Principal Problem: Acute encephalopathy Physical Therapy Evaluation Discharge Recommendations PT Recommendations: [facility] SN[facility]ECF Comments: pt will need SNF to maximize function and return pt to baseline level of independence 6 Clicks: Basic Mobility Turning from your back to your side while in a flat bed without using bed rails?: None Moving from lying on your back to sitting on side of flat bed without using bed rails?: None Moving to and from bed to a chair (including w/c)?: None Standing up from a chair using your arms (e.g. w/c or bedside chair)?: None To walk in hospital room?: A little Climbing 3-5 steps with a railing?: A little Scoring 6 Clicks: Basic Mobility Raw Score: 22 [facility] G Code Modifier: CJ Therapy Plan Need for skilled Physical Therapy to address deficits in functional mobility due to a status decline resulting from admission 06/07/24 from [place] where he went with afib with RVR and altered mental status. MRI brain without acute findings but chronic infarct post R frontal lobe. Neuro stroke consulted and recommended transfer to [facility]. Diagnosed with acute encphalopathy, afib with RVR (resolved), alcohol use disorder with CIWA protocol, hyperbilirubinemia with consult to general surgery (no surgery indicated). Consult GI for cirrhosis and to f/u as outpatient. Urology consult for urinary retention. Fell in the night, hit head; CT with B subdural fluid collection/hygromas and neurosurgery consulted with no surgery indicated. No chief complaint on file. Past Medical History: Diagnosis Date Abnormal EKG Atrial fibrillation ([facility]) Back pain Bradycardia Chronic atrial fibrillation ([facility]) Hypertension Hypertensive heart disease without heart failure Hypokalemia Pure hypercholesterolemia Urinary tract infection 01/2019 seen by [facility] No past surgical history on file. PT Treatment/Interventions: Functional transfer training, Endurance training, Patient/family training, Balance, Bed mobility, Stair training, Gait training, Functional activities PT Frequency: 2-3days/week (increase as pt becomes more able to participate) PT Duration: LOS Patient Response to Treatment: Slow progress, medical status limitations Assessment Patient Assessment Therapy Problem List: Decreased balance, Decreased cognition, Decreased endurance, Decreased mobility Patient Response to Treatment: Slow progress, medical status limitations Mood/Affect: Impulsive (resistive) Rehab Prognosis: Fair, With continued PT status post acute discharge Visit RN Communication: Yes Medical Record Reviewed: Yes PT Type of Visit: Evaluation Precautions Activity: early mobility pass, OK per RN to see Equipment: RW, gait belt, catheter Telemetry/Furnace Keeper: Yes Oxygen Used: room air Other: pt is impulsive, does not follow therapist directions Pain Assessment Pain Assessment: No/denies pain Home Living Type of Home: Mobile home Home Layout: One level Stairs to Enter: 4 Hand Rails: None Bathroom Shower/Tub: Tub/shower unit Bathroom Toilet: Standard Other : unsure of home set up as pt did not answer many questions Prior Function Lives With: Alone Receives Help From: Family (supportive daughter) Level of Mobility: Independent with ADLs and functional transfers or gait Homemaking Assistance: Independent Other: pt reports no longer driving Hearing / Speech / Vision Hearing: Within Functional Limits Speech: Within Functional Limits Current Vision: Wears glasses all the time Cognition Overall Cognitive Status: Exceptions to Within Functional Limits Following Commands: Other (Comment) (inconsistent with following commands) Safety Judgment: Decreased awareness of need for assistance, Decreased awareness of need for safety Awareness of Errors: Decreased awareness of errors Insight of Deficits: Decreased awareness of deficits Problem Solving: Assistance required to identify errors made, Assistance required to generate solutions, Assistance required to implement solutions Interfering Components: Other (comment) (alcohol and drug use) Other: impulsive, pt's responses are inconsistent as he will say opposite things Bed Mobility Supine to Sit: Stand by assist Other: remains up in recliner with seat alarm, call light and items within reach, nurse aware Transfers Sit to Stand: Standby assist Stand to Sit: Standby assist Bed to Chair: Standby assist Other: pt was resistent with most activity; while standing, he performed back stretches into flex and ext, marched and flexed knees Gait Pattern: Decreased nj Gait Assistance: Contact guard assist Assistive Device: Rolling walker Gait Distance: 50ft Limiting Factors to Gait: Other (comment) (HR in 150's with ambulation; returned to room via recliner) Balance Sitting Balance: Static: Good Sitting Balance: Dynamic: Good Standing Balance: Static: Good (minus) Standing Balance: Dynamic: Fair (plus) RUE Assessment: (per OT) LUE Assessment: (per OT) RLE Assessment: Within Functional Limits LLE Assessment: Within Functional Limits Activity Tolerance Endurance: Tolerates <30 minutes activity with vital sign changes Other: HR increased to 150's with ambulation and pt returned to room via recliner; HR decreased with rest Plan Physical Therapy Care Plan Physical Therapy Care Plan (Active) Template: PT - Physical Therapy Problem: Activity Tolerance Dates: Start: 06/09/24 Disciplines: PT Goal: Tolerate > 30 minutes of activity WITH rest breaks Dates: Start: 06/09/24 Expected End: 06/23/24 Description: Goal Description: Disciplines: PT Problem: Bed Mobility Dates: Start: 06/09/24 Disciplines: PT Goal: Patient will perform bed mobility with Modified [place] Dates: Start: 06/09/24 Expected End: 06/23/24 Description: Goal Description: Disciplines: PT Problem: Gait Dates: Start: 06/09/24 Disciplines: PT Goal: Patient will perform gait with Modified [place] Dates: Start: 06/09/24 Expected End: 06/23/24 Description: With__RW__,__150__feet Goal Description: Disciplines: PT Problem: Stairs/Curb Dates: Start: 06/09/24 Disciplines: PT Goal: Patient will perform stairs/curb with Stand By Assist Dates: Start: 06/09/24 Expected End: 06/23/24 Description: __4___steps,___SBA Goal Description: Disciplines: PT Problem: Standing Balance Dates: Start: 06/09/24 Disciplines: PT Goal: Improve balance to good Dates: Start: 06/09/24 Expected End: 06/23/24 Description: Static Dynamic Disciplines: PT Problem: Transfers Dates: Start: 06/09/24 Disciplines: PT Goal: Patient will perform transfers with Modified [place] Dates: Start: 06/09/24 Expected End: 06/23/24 Description: Goal Description: Disciplines: PT Physical Therapy Care Plan (Resolved) There are no resolved problems. Principal Problem: Acute encephalopathy Query Response Note AUTOMATED QUERY TEXT: Stage of Chronic Kidney Disease: This query seeks further clarification of documentation to reflect all conditions that you are monitoring, evaluating, treating or that extend hospitalization or utilize additional resources. Please utilize your independent clinical judgment when addressing the question(s) below. Please provide further specificity, if known. Clinical indicators include: ckd, cr, bun, creatinine Options provided: -- Chronic kidney disease stage 1 -- Chronic kidney disease stage 2 -- Chronic kidney disease stage 3 -- Chronic kidney disease stage 3a -- Chronic kidney disease stage 3b -- Chronic kidney disease stage 4 -- Chronic kidney disease stage 5 -- Chronic kidney disease stage 5, requiring dialysis -- End stage renal disease -- Other - I will add my own diagnosis -- Dismiss - Not applicable / Not valid AUTOMATED QUERY RESPONSE TEXT: Provider dismissed this query because it was not applicable to the patient or not a valid query. defer to primary, not r/t GI Electronically signed by: Vira SILVESTRE 06/09/2024 9:07 AM Problem: Safety Goal: Patient will be injury free during hospitalization Description: INTERVENTIONS: 1. Assess patient's risk for falls and implement fall prevention plan of care per policy 2. Provide and maintain a safe environment 3. Proper use of double Identifiers 4. Medication administration using the 5 rights 5. Hand hygiene 6. Specimens are labeled at the bedside 7. Instruct patient/ patient arborist representative about use of safety devices 8. Include patient/ patient arborist representative in decisions related to safety Outcome: Progressing Note: Evaluation of progress towards goal: Patient free from injury, will continue to provide a clean environment, personal objects in reach, and a well light room Problem: Knowledge Deficit Goal: Patient/patient arborist representative demonstrates understanding of disease process, treatment plan, medications, and discharge instructions Description: INTERVENTIONS 1. Complete learning assessment and assess knowledge base 2. Provide teaching at level of understanding 3. Provide teaching via preferred learning method(s) Outcome: Progressing Note: Evaluation of progress towards goal: patient kept up to date on plan of care Problem: Moderate - High Risk Fall Score Description: Bustamante Fall Score of =/> 25 or indicated by [facility] Assessment Goal: Patient should be free from fall Description: Interventions: 1. [place] to environment 2. Hourly rounds addressing the 4 P's (Pain, Positioning, Possessions, Potty) 3. Clear area of hazards (spills, clutter, electrical cords, unnecessary equipment) 4. Place equipment (bed & TV controls, call light, phone, urinal) within reach 5. Encourage patient to wear glasses and hearing aides as appropriate 6. Maintain bed in lowest position 7. Lock wheels on bed/wheelchair 8. Provide adequate lighting, including night light 9. Assess need for additional bedding, food/fluids, pain med's prior to sleep/routinely 10. Provide gripper slippers or personal non-skid footwear 11. Teach patient and patient arborist representative to maintain environment for safety and engage in all aspects of fall prevention program 12. Remind patient to call for help before getting out of bed 13. Initiate bed/chair/exit alarms supportive devices as appropriate, (chair wedge, no-skid floor mat, raised edge mattress, hip protectors) 14. Locate patient bed assignment for optimal visualization 15. Evaluate and identify Safe Patient Handling Equipment needs 16. Provide supervision when out of bed or chair 17. Utilize gait belt as needed to assist with ambulation 18. Place adaptive equipment (cane, walker) within reach 19. Request patient arborist representative bring adaptive equipment/mobility aids from home or obtain and provide as needed 20. Consult pharmacy regarding effects of med's affecting mobility, cognition, and alternatives 21. Obtain physician order for PT if risk factors associated with mobility are present 22. Obtain physician order for OT as appropriate 23. Utilize diversional activities 24. Educate patient and patient arborist representative how to maintain a safe environment during visitation times (notify nurse prior to leaving bedside) 25. Consider appropriateness of medical or non-medical front desk specialist 26. Set up voiding schedule as appropriate (every 2 hours) Outcome: Progressing Note: Evaluation of progress towards goal: Patient free from injury, will continue to provide a clean environment, personal objects in reach, and a well light room Physical Therapy PT Type of Visit: Medical deferral Reason For Medical Deferral: Medical procedure ongoing, RN deems inappropriate, Imaging results pending (pt had fall last night and is leaving for stat CT on attempt at eval. will hold at this time) Problem: Pain Goal: Patient goal is pain score less than 4, able to rest, and participant in treatment plan as appropriate Description: INTERVENTIONS: 1. Encourage patient or legal arborist representative to report early pain and ask for pain medicine when needed 2. Assess pain using appropriate pain scale and include the scale used when documenting 3. Administer analgesics based on type and severity of pain and evaluate response within appropriate time frame 4. Implement non-pharmacological measures as appropriate and evaluate response 5. Consider cultural and social influences on pain and pain management 6. Notify LIP if interventions ineffective or patient reports new pain 7. Monitor vital signs including pulse ox, end-tidal CO2 based on pain intervention 8. Reassess pain per policy 9. Teach patient or legal arborist representative interventions for comforting Outcome: Progressing Note: Evaluation of progress towards goal: Patient encouraged to report pain occurrence. Pain to be assessed using 0-10 pain scale. Pain controled with PRN pain medication, vital signs monitored, pain to be reassessed within an hour of intervention. Problem: Safety Goal: Patient will be injury free during hospitalization Description: INTERVENTIONS: 1. Assess patient's risk for falls and implement fall prevention plan of care per policy 2. Provide and maintain a safe environment 3. Proper use of double Identifiers 4. Medication administration using the 5 rights 5. Hand hygiene 6. Specimens are labeled at the bedside 7. Instruct patient/ patient arborist representative about use of safety devices 8. Include patient/ patient arborist representative in decisions related to safety Outcome: Progressing Note: Evaluation of progress towards goal: Patient has remained free of falls throughout this shift. Patient uses call light appropriately, non-slip socks are on, bed locked and in lowest position, two side rails up, and bedside table within reach. Fall risk wristband on. Bed alarm on and working. Problem: Infection Goal: Absence of infection during hospitalization Description: INTERVENTIONS 1. Assess and monitor for signs and symptoms of infection. 2. Monitor lab/diagnostic results. 3. Monitor all insertion sites i.e., indwelling lines, tubes and drains. 4. Monitor endotracheal (as able) and nasal secretions for changes in amount and color. 5. Administer medications as ordered. 6. Instruct and encourage patient and family to use good hand hygiene technique. 7. Identify and instruct patient/patient arborist representative in use of appropriate isolation precautions for identified infection/symptoms. 8. Provide and discuss with patient/patient arborist representative on educational MDRO sheet. 9. Encourage and monitor nutritional status daily and consult senior oracle dba if indicated. 10. Implement neutropenic guidelines as needed. Outcome: Progressing Note: Evaluation of progress towards goal: Patient has remained afebrile. WBC and vital signs monitored. Patient has not shown any additional signs of infection at this time. Problem: Knowledge Deficit Goal: Patient/patient arborist representative demonstrates understanding of disease process, treatment plan, medications, and discharge instructions Description: INTERVENTIONS 1. Complete learning assessment and assess knowledge base 2. Provide teaching at level of understanding 3. Provide teaching via preferred learning method(s) Outcome: Progressing Note: Evaluation of progress towards goal: Patient's family is involved and informed of the patient's care and condition. Family and patient educated about current medications and treatment plan. Problem: Potential for Compromised Skin Integrity Goal: Skin integrity is maintained or improved Description: Patient's goal is: INTERVENTIONS 1. Perform initial skin assessment on admission and as needed 2. Turn patient every 2 hours and PRN 3. Relieve pressure to bony prominences 4. Avoid shearing 5. Keep skin clean and dry 6. Alternate a full bath with partial baths for elderly 7. Apply lotion/moisturizer on skin 8. Monitor patient's hygiene practices 9. Float heels 10. Collaborate with interdisciplinary team and initiate plans and interventions as needed Outcome: Progressing Note: Evaluation of progress towards goal: Skin assessment Qshift and prn. Patient able to move around in bed. Will need to see PT/OT. Problem: Urinary Incontinence Goal: Perineal skin integrity is maintained or improved Description: INTERVENTIONS 1. Assess genitourinary system, perineal skin, labs (urinalysis), and history of incontinence to include past management, aggravating, and alleviating factors 2. Keep skin clean and dry 3. Apply skin protectant 4. Develop skin care regimen 5. Provide privacy when changing patients incontinence device to maintain their dignity 6. Consider placing an indwelling catheter 7. Collaborate with interdisciplinary team and initiate plans and interventions as needed Outcome: Progressing Note: Evaluation of progress towards goal: Arenas maintained for urinary retention. Problem: Moderate - High Risk Fall Score Description: Bustamante Fall Score of =/> 25 or indicated by [facility] Assessment Goal: Patient should be free from fall Description: Interventions: 1. [place] to environment 2. Hourly rounds addressing the 4 P's (Pain, Positioning, Possessions, Potty) 3. Clear area of hazards (spills, clutter, electrical cords, unnecessary equipment) 4. Place equipment (bed & TV controls, call light, phone, urinal) within reach 5. Encourage patient to wear glasses and hearing aides as appropriate 6. Maintain bed in lowest position 7. Lock wheels on bed/wheelchair 8. Provide adequate lighting, including night light 9. Assess need for additional bedding, food/fluids, pain med's prior to sleep/routinely 10. Provide gripper slippers or personal non-skid footwear 11. Teach patient and patient arborist representative to maintain environment for safety and engage in all aspects of fall prevention program 12. Remind patient to call for help before getting out of bed 13. Initiate bed/chair/exit alarms supportive devices as appropriate, (chair wedge, no-skid floor mat, raised edge mattress, hip protectors) 14. Locate patient bed assignment for optimal visualization 15. Evaluate and identify Safe Patient Handling Equipment needs 16. Provide supervision when out of bed or chair 17. Utilize gait belt as needed to assist with ambulation 18. Place adaptive equipment (cane, walker) within reach 19. Request patient arborist representative bring adaptive equipment/mobility aids from home or obtain and provide as needed 20. Consult pharmacy regarding effects of med's affecting mobility, cognition, and alternatives 21. Obtain physician order for PT if risk factors associated with mobility are present 22. Obtain physician order for OT as appropriate 23. Utilize diversional activities 24. Educate patient and patient arborist representative how to maintain a safe environment during visitation times (notify nurse prior to leaving bedside) 25. Consider appropriateness of medical or non-medical front desk specialist 26. Set up voiding schedule as appropriate (every 2 hours) Outcome: Progressing Note: Evaluation of progress towards goal: Patient has remained free of falls throughout this shift. Patient uses call light appropriately, non-slip socks are on, bed locked and in lowest position, two side rails up, and bedside table within reach. Fall risk wristband on. Bed alarm on and working. Problem: Neurological Deficit Goal: Neurological status is stable or improving Description: Patient's goal is: INTERVENTIONS 1. Complete Neurological assessment as indicated/ordered 2. Initiate measures to prevent increased intracranial pressure 3. Monitor and assess patient's level of consciousness, motor function, sensory function, and level of assistance needed for ADLs 4. Monitor and report changes from baseline 5. Maintain blood pressure and fluid volume within ordered parameters to optimize cerebral perfusion and minimize risk of hemorrhage 6. Monitor labs and diagnostic tests 7. Administer anti-seizure medications as ordered 8. Maintain airway, patient safety and administer oxygen as ordered 9. Monitor patient for seizure activity, document and report duration and description of seizure to LIP 10. If seizure occurs, turn patient to side and suction secretions as needed 11. Reorient patient post seizure 12. Seizure pads on all 4 side rails 13. Instruct patient/family to notify RN of any seizure activity 14. Instruct patient/family to call for assistance with activity based on assessment 15. Utilize bleeding precautions if thrombolytic given Outcome: Progressing Note: Evaluation of progress towards goal: Neuro assessment Q4 and prn. Problem: Discharge Planning Goal: Discharge to post-acute care, other facility, or home with appropriate resources Description: Patient's goal is: INTERVENTIONS 1. Conduct assessment to determine patient/family and health care team treatment goals, and need for post-acute services based on payer coverage, community resources, and patient preferences, and barriers to discharge 2. Coordinate with Social work, Care Navigation, and Utilization Review to arrange appropriate level of services according to patient's needs based on patient preference and payer coverage in collaboration with the physician and health care team 3. Address psychosocial, clinical, and financial barriers to discharge as identified in assessment in conjunction with the patient/family and health care team 4. Consult appropriate ancillary services (i.e.. PT/OT/ST, etc) as needed 5. Communicate with and update the patient/family, physician, and health care team regarding progress on the discharge plan 6. Identify discharge learning needs (meds, wound care, etc). 7. Arrange for needed discharge transportation as appropriate Note: Evaluation of progress towards goal: Patient involved and informed about disease process, medications, and treatment plan. Hospice Home Care Coordinator to update patient throughout the shift regarding plan of care. Problem: Safety Goal: Patient will be injury free during hospitalization Description: INTERVENTIONS: 1. Assess patient's risk for falls and implement fall prevention plan of care per policy 2. Provide and maintain a safe environment 3. Proper use of double Identifiers 4. Medication administration using the 5 rights 5. Hand hygiene 6. Specimens are labeled at the bedside 7. Instruct patient/ patient arborist representative about use of safety devices 8. Include patient/ patient arborist representative in decisions related to safety Outcome: Progressing Note: Evaluation of progress towards goal: Patient free from injury, will continue to provide a clean environment, personal objects in reach, and a well light room Problem: Knowledge Deficit Goal: Patient/patient arborist representative demonstrates understanding of disease process, treatment plan, medications, and discharge instructions Description: INTERVENTIONS 1. Complete learning assessment and assess knowledge base 2. Provide teaching at level of understanding 3. Provide teaching via preferred learning method(s) Outcome: Not Progressing Note: Evaluation of progress towards goal: patient and patients family kept updated on plan of care Problem: Moderate - High Risk Fall Score Description: Bustamante Fall Score of =/> 25 or indicated by [facility] Assessment Goal: Patient should be free from fall Description: Interventions: 1. [place] to environment 2. Hourly rounds addressing the 4 P's (Pain, Positioning, Possessions, Potty) 3. Clear area of hazards (spills, clutter, electrical cords, unnecessary equipment) 4. Place equipment (bed & TV controls, call light, phone, urinal) within reach 5. Encourage patient to wear glasses and hearing aides as appropriate 6. Maintain bed in lowest position 7. Lock wheels on bed/wheelchair 8. Provide adequate lighting, including night light 9. Assess need for additional bedding, food/fluids, pain med's prior to sleep/routinely 10. Provide gripper slippers or personal non-skid footwear 11. Teach patient and patient arborist representative to maintain environment for safety and engage in all aspects of fall prevention program 12. Remind patient to call for help before getting out of bed 13. Initiate bed/chair/exit alarms supportive devices as appropriate, (chair wedge, no-skid floor mat, raised edge mattress, hip protectors) 14. Locate patient bed assignment for optimal visualization 15. Evaluate and identify Safe Patient Handling Equipment needs 16. Provide supervision when out of bed or chair 17. Utilize gait belt as needed to assist with ambulation 18. Place adaptive equipment (cane, walker) within reach 19. Request patient arborist representative bring adaptive equipment/mobility aids from home or obtain and provide as needed 20. Consult pharmacy regarding effects of med's affecting mobility, cognition, and alternatives 21. Obtain physician order for PT if risk factors associated with mobility are present 22. Obtain physician order for OT as appropriate 23. Utilize diversional activities 24. Educate patient and patient arborist representative how to maintain a safe environment during visitation times (notify nurse prior to leaving bedside) 25. Consider appropriateness of medical or non-medical front desk specialist 26. Set up voiding schedule as appropriate (every 2 hours) Outcome: Progressing Note: Evaluation of progress towards goal: Patient free from injury, will continue to provide a clean environment, personal objects in reach, and a well light room Problem: Neurological Deficit Goal: Neurological status is stable or improving Description: Patient's goal is: INTERVENTIONS 1. Complete Neurological assessment as indicated/ordered 2. Initiate measures to prevent increased intracranial pressure 3. Monitor and assess patient's level of consciousness, motor function, sensory function, and level of assistance needed for ADLs 4. Monitor and report changes from baseline 5. Maintain blood pressure and fluid volume within ordered parameters to optimize cerebral perfusion and minimize risk of hemorrhage 6. Monitor labs and diagnostic tests 7. Administer anti-seizure medications as ordered 8. Maintain airway, patient safety and administer oxygen as ordered 9. Monitor patient for seizure activity, document and report duration and description of seizure to LIP 10. If seizure occurs, turn patient to side and suction secretions as needed 11. Reorient patient post seizure 12. Seizure pads on all 4 side rails 13. Instruct patient/family to notify RN of any seizure activity 14. Instruct patient/family to call for assistance with activity based on assessment 15. Utilize bleeding precautions if thrombolytic given Outcome: Progressing Note: Evaluation of progress towards goal: patient is alert to self and location. Images from the original note were not included. DISCHARGE PLANNING NOTE Attempted to meet with patient and he is leaving floor for imaging. Will check back as able. 12:19 Chart reviewed. Met with patient, explained role, verbalized understanding. Patient lives by himself he has lost his of 30 years which has caused him much sadness. 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 He is unable to quantify the amount of beer he drinks when asked, CIWA continues. He denies that ETOH is a problem for him. He states that he does goes to the food pantry sometimes. When asked which one he did not know and sounds like his friend takes him there. List of pantries in this area provided to him. Will need a food box at discharge. His daughter is involved in is life and checks on him. Denies using any assistive devices or services in the home. Therapy consults are not ordered at this time. Denies any unmet needs at home currently. Discharge plan is to home at this time. Care Navigation to follow. /Services Requested: Services Requested Patient expects to be discharged to:: Home Does the patient need discharge transportation arranged?: No DC Planning Complete Discharge Milestones: Yes Patient Goals: Patient/Caregiver Goals Patient/Caregiver Goals: Home No Needs Goals: Goals Return to home (pt-stated) Evaluation of progress towards goal: Will need food box at discharge. documented in this encounter [facility] 06-12-2024 Progress note Formatting of t his note might be different from the original. DISCHARGE PLANNING NOTE [facility] accepted referral and [facility] will not have a bed available. Social work contacted daughter to inform of above and daughter requested referral to [facility] and [facility]. Social work sent referral and [facility] is accepting referral. Social work contacted daughter to inquire about [facility] preference and she is interested in [facility]. Discharge written, CRF complete. [facility] notified of discharge and CRF sent. Daughter will transport patient this afternoon to SNF. RN updated. HENS submitted. - MILLIE CALL 06/12/24 11:23 AM [facility] 06-12-2024 Hospital course Narrative Images from the original note were not included. [facility] Hospital[facility] Discharge Summary CONFIDENTIAL INFORMATION Patient's Name: Johnathan Rodney Date of : 1955 Age: 68 yrs Gender: male Date of service: 06/12/2024 PCP: Patient Care Team: [facility] PCP - General (Family Medicine) DATE OF ADMISSION: 06/07/2024 DATE OF DISCHARGE: 06/12/2024 DISCHARGE DIAGNOSES: Principal Problem: Acute encephalopathy CONSULTANTS: Consulting Providers Provider Service Specialty Nicolas Wells MD Surgery General Surgery Catrina Marie MD -- Neurology Richardson Brandt DO -- Gastroenterology PCP: Patient Care Team: [facility] as PCP - General (Family Medicine) Hospital Course HPI Johnathan Rodney is a 68 y.o. male medical history significant for atrial fibrillation, hypertension, chronic systolic heart failure, history of alcohol use disorder, who presented to [facility] for evaluation of altered mentation. Patient history provided by chart provided on transfer as he was confused. His family brought him to the emergency room for general lethargy and confusion. He was found to be in atrial fibrillation with rapid ventricular response and was started on Cardizem infusion which he later converted to normal sinus rhythm he has been Cardizem since. He remained altered and described hallucinations. Laboratory data revealed elevated total bilirubin at 2.8 creatinine elevated at 2.11 with a BUN of 48, white blood cell count negative blood pressure was severely elevated. Patient admits to alcohol and marijuana use. Creatinine improved with IV hydration as the patient appeared clinically dehydrated. Abdominal ultrasound was obtained due to total bilirubin being elevated as well as a AST of 54 and it revealed acute versus chronic cholecystitis and a dilated right renal pelvis representing hydronephrosis and possible ureteral obstruction versus prominent per pelvic cyst. CT imaging of the brain was obtained which was negative for acute intracranial hemorrhage or acute intracranial process but did reveal chronic infarcts in the posterior right frontal lobe right occipital lobe. Due to continued confusion and MRI of the brain was obtained on 06/06/2024 which revealed no evidence of acute ischemic infarct but limited by motion artifact. Patient was treated with IV antibiotics with Rocephin and Flagyl a Arenas catheter was placed due to acute urinary retention. Neuro stroke was consulted and they recommended transfer to [facility] for evaluation with potential lumbar puncture. Per chart family was concerned about abdominal discomfort the patient was complaining about prior to hospitalization ASSESSMENT/PLAN Acute on chronic diastolic heart failure, volume overload- Moderate bilateral pleural effusion, body wall edema, presacral edema trace ascites noted on CT abdomen and pelvis on 06/07/2024 S/p IV Lasix. Continue to monitor Daily weights, intake and output. Acute abdominal pain-with elevated LFTs, hyperbilirubinemia. Currently abdominal pain is resolved. Received Rocephin and Flagyl x5days. GI and General surgery signed off. No acute intervention planned MRCP showing significant edema of the mesenteric fat planes as well as significant pleural effusion. Ductal dilatation, sludge in the gallbladder. 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 MRI brain currently negative for any acute infarcts. Maintain delirium precautions. No indication for LP. EEG showing severe background slowing S/p fall during hospital stay while the pt was on heparin drip, paroxysmal AFib. At home he was on Eliquis.- CT head showing bilateral subdural fluid collection/hygromas without significant mass effect. Heparin drip discontinued. Images reviewed by Neurosurgery. No surgical intervention planned. Ok to resume eliquis per neurosurg on 06/11/24 Acute urinary retention, right-sided hydronephrosis-s/p Arenas catheter placement. Continue Flomax. Maintain arenas for at least a week and f/u outpt for void trial per urology. Alcohol use disorder- on CIWA protocol. Thiamine and folic acid. Marijuana and tobacco use disorder Paroxysmal atrial fibrillation- Started on Coreg for rate control. Resume Eliquis 06/11/24 Echo from outlying facility showed biatrial enlargement, normal systolic function EF 50%, concentric hypertrophy, elevated RVSP 51 mmHg, Primary hypertension- stable Dispo: pt agrees to go to SNF. Await acceptance. DVT prophylaxis - eliquis Physical Exam BP 105/80 Pulse 87 Temp 37 C (98.6 F) (Oral) Resp 16 Ht 182.9 cm (6') Wt 62.9 kg (138 lb 10.7 oz) SpO2 100% BMI 18.81 kg/m General appearance: alert, in no acute distress Skin: warm, dry Lungs: Nonlabored respiration, no wheezing Heart: RRR, No ectopy Abdomen: Abdomen soft, non-tender. Extremities: No edema, no swelling or erythema. Neuro: AAOx3, non-focal Labs: Recent Results (from the past 48 hours) CBC auto differential Collection Time: 06/11/24 6:32 AM Result Value Ref Range White Blood Cells 5.7 4.0 - 11.0 X10E9/L RBC count 4.42 4.10 - 5.70 X10E12/L Hemoglobin 10.0 (L) 13.0 - 17.0 g/dL Hematocrit 32.3 (L) 39 - 49 % MCV 73 (L) 80 - 100 fL MCH 22.7 (L) 27 - 34 pg MCHC 31.1 (L) 32 - 36 g/dL RDW 23.5 (H) 11.5 - 15.0 % Platelets 226 150 - 450 X10E9/L MPV 8.7 7 - 12 fL Seg neutrophil 79.4 % Lymphocyte 6.9 % Monocytes 7.8 % Eosinophil 4.9 % Basophil 1.0 % Neutrophils Absolute (M) 4.5 1.5 - 6.6 X10E9/L Lymphocytes Absolute 0.4 (L) 1.0 - 3.5 X10E9/L Monocytes Absolute 0.4 0 - 0.9 X10E9/L Eosinophils Absolute 0.3 0.0 - 0.4 X10E9/L Basophils Absolute 0.1 0.0 - 0.2 X10E9/L Hypochromia 1+ (A) NONE^NONE Polychromasia 1+ (A) NONE^NONE Fragment 1+ (A) NONE^NONE Ovalocytes 2+ (A) NONE^NONE Comprehensive metabolic panel Collection Time: 06/11/24 6:32 AM Result Value Ref Range Sodium 141 134 - 146 mmol/L Potassium, Bld 3.7 3.5 - 5.0 mmol/L Chloride 105 98 - 109 mmol/L CO2 26 22 - 32 mmol/L Anion gap 10 5 - 15 mmol/L BUN 27 5 - 27 mg/dL Creatinine 1.23 0.60 - 1.30 mg/dL Glucose 100 (H) 65 - 99 mg/dL Calcium 8.3 (L) 8.5 - 10.5 mg/dL Total Protein 6.0 6.0 - 8.0 g/dL Albumin 3.4 3.2 - 5.3 g/dL Alkaline Phosphatase 67 39 - 130 U/L AST 28 0 - 41 U/L ALT 21 0 - 40 U/L Total bilirubin 0.7 0.3 - 1.2 mg/dL eGFR (CKD-EPI)non-race dependent 64 >59 ml/min/1.73sq.m Hemoglobin Collection Time: 06/11/24 10:43 PM Result Value Ref Range Hemoglobin 10.4 (L) 13.0 - 17.0 g/dL Potassium Collection Time: 06/11/24 10:43 PM Result Value Ref Range Potassium, Bld 4.0 3.5 - 5.0 mmol/L CBC auto differential Collection Time: 06/12/24 5:52 AM Result Value Ref Range White Blood Cells 4.7 4.0 - 11.0 X10E9/L RBC count 4.27 4.10 - 5.70 X10E12/L Hemoglobin 9.9 (L) 13.0 - 17.0 g/dL Hematocrit 31.1 (L) 39 - 49 % MCV 73 (L) 80 - 100 fL MCH 23.1 (L) 27 - 34 pg MCHC 31.8 (L) 32 - 36 g/dL RDW 22.9 (H) 11.5 - 15.0 % Platelets 226 150 - 450 X10E9/L MPV 8.0 7 - 12 fL % neutrophils 71.7 % % lymphocytes 13.2 % % monocytes 8.5 % % eosinophils 4.1 % % Basophils 2.5 % Neutrophils Absolute (A) 3.4 1.5 - 6.6 X10E9/L Lymphocytes Absolute 0.6 (L) 1.0 - 3.5 X10E9/L Monocytes Absolute 0.4 0 - 0.9 X10E9/L Eosinophils Absolute 0.2 0.0 - 0.4 X10E9/L Basophils Absolute 0.1 0.0 - 0.2 X10E9/L Polychromasia 1+ (A) NONE^NONE Fragment 1+ (A) NONE^NONE Teardrop 1+ (A) NONE^NONE Ovalocytes 1+ (A) NONE^NONE Radiology: No results found. Discharge Medications: Medication List START taking these medications Instructions Last Dose Given Next Dose Due atorvastatin 40 mg tablet Commonly known as: LIPITOR Take 1 tablet (40 mg total) by mouth nightly. carvediloL 12.5 mg tablet Commonly known as: COREG Take 1 tablet (12.5 mg total) by mouth in the morning and 1 tablet (12.5 mg total) before bedtime. folic acid 1 mg tablet Commonly known as: FOLVITE Start taking on: June 13, 2024 Take 1 tablet (1 mg total) by mouth in the morning. furosemide 40 mg tablet Commonly known as: LASIX Start taking on: June 13, 2024 Take 1 tablet (40 mg total) by mouth daily. QUEtiapine 25 mg tablet Commonly known as: SEROquel Take 1 tablet (25 mg total) by mouth nightly. tamsulosin 0.4 mg capsule Commonly known as: FLOMAX Take 1 capsule (0.4 mg total) by mouth nightly. thiamine HCl 100 mg tablet Commonly known as: VITAMIN B-1 Start taking on: June 13, 2024 Take 1 tablet (100 mg total) by mouth in the morning. CONTINUE taking these medications Instructions Last Dose Given Next Dose Due apixaban 5 mg tablet Commonly known as: ELIQUIS Take 1 tablet (5 mg total) by mouth every 12 (twelve) hours. potassium chloride 10 MEQ CR tablet Commonly known as: K-TAB,KLOR-CON TAKE 2 TABLETS BY MOUTH EVERY DAY STOP taking these medications amLODIPine 10 mg tablet Commonly known as: NORVASC aspirin 81 mg hydrALAZINE 100 mg tablet Commonly known as: APRESOLINE labetaloL 200 mg tablet Commonly known as: NORMODYNE olmesartan 40 mg tablet Commonly known as: BENICAR Where to Get Your Medications These medications were sent to [facility]/pharmacy #[id number] - [place], [place] - [address] [address] atorvastatin 40 mg tablet carvediloL 12.5 mg tablet folic acid 1 mg tablet furosemide 40 mg tablet QUEtiapine 25 mg tablet tamsulosin 0.4 mg capsule thiamine HCl 100 mg tablet For most accurate medication list, please review the discharge medication summary. Discharge Instructions Disposition: Discharge to [facility] Condition: Good Activity: activity as tolerated Diet: Adult diet Regular Texture Adult diet Information Provided to the Patient: Patient given copy of Discharge Instructions, patient hospital stay was discussed. No special instructions. Follow up: Lizbeth Horne MD [address] [place] [address] Schedule an appointment as soon as possible for a visit in 2 week(s) to discuss urinary issues [facility] [place] [phone] Greater than 35 minutes were spent on discharging this patient. Electronically SIGNED by Licensed Independent Practitioner: Tabatha León MD [facility], Department of Internal Medicine 06/12/24 11:06 AM Please call with any questions or concerns This note was partially dictated with the use of M*Modal.Please note that this dictation was completed with computer voice recognition software. Quite often unanticipated grammatical, syntax, homophones, and other interpretive errors are inadvertently transcribed by the computer software. Please disregard these errors. Please excuse any errors that have escaped final proofreading documented in this encounter [facility] 06-12-2024 Plan of care note Problem: Pain Goal: Patient goal is pain score less than 4, able to rest, and participant in treatment plan as appropriate Description: INTERVENTIONS: 1. Encourage patient or legal arborist representative to report early pain and ask for pain medicine when needed 2. Assess pain using appropriate pain scale and include the scale used when documenting 3. Administer analgesics based on type and severity of pain and evaluate response within appropriate time frame 4. Implement non-pharmacological measures as appropriate and evaluate response 5. Consider cultural and social influences on pain and pain management 6. Notify LIP if interventions ineffective or patient reports new pain 7. Monitor vital signs including pulse ox, end-tidal CO2 based on pain intervention 8. Reassess pain per policy 9. Teach patient or legal arborist representative interventions for comforting Outcome: Progressing Note: Evaluation of progress towards goal: Patient encouraged to report pain on a scale from 1-10. PRN pain medications available Problem: Safety Goal: Patient will be injury free during hospitalization Description: INTERVENTIONS: 1. Assess patient's risk for falls and implement fall prevention plan of care per policy 2. Provide and maintain a safe environment 3. Proper use of double Identifiers 4. Medication administration using the 5 rights 5. Hand hygiene 6. Specimens are labeled at the bedside 7. Instruct patient/ patient arborist representative about use of safety devices 8. Include patient/ patient arborist representative in decisions related to safety Outcome: Progressing Note: Evaluation of progress towards goal: Pt. Safety precautions maintained. Call light within reach, side rails up x2, bed alarm on Problem: Infection Goal: Absence of infection during hospitalization Description: INTERVENTIONS 1. Assess and monitor for signs and symptoms of infection. 2. Monitor lab/diagnostic results. 3. Monitor all insertion sites i.e., indwelling lines, tubes and drains. 4. Monitor endotracheal (as able) and nasal secretions for changes in amount and color. 5. Administer medications as ordered. 6. Instruct and encourage patient and family to use good hand hygiene technique. 7. Identify and instruct patient/patient arborist representative in use of appropriate isolation precautions for identified infection/symptoms. 8. Provide and discuss with patient/patient arborist representative on educational MDRO sheet. 9. Encourage and monitor nutritional status daily and consult senior oracle dba if indicated. 10. Implement neutropenic guidelines as needed. Outcome: Progressing Note: Evaluation of progress towards goal: Patient currently on IV antibiotics Problem: Knowledge Deficit Goal: Patient/patient arborist representative demonstrates understanding of disease process, treatment plan, medications, and discharge instructions Description: INTERVENTIONS 1. Complete learning assessment and assess knowledge base 2. Provide teaching at level of understanding 3. Provide teaching via preferred learning method(s) Outcome: Progressing Note: Evaluation of progress towards goal: Pt. Education on disease process, plan of care and medications. Pt. Verbalized understanding and all questions were answered. Problem: Discharge Planning Goal: Discharge to post-acute care, other facility, or home with appropriate resources Description: Patient's goal is: INTERVENTIONS 1. Conduct assessment to determine patient/family and health care team treatment goals, and need for post-acute services based on payer coverage, community resources, and patient preferences, and barriers to discharge 2. Coordinate with Social work, Care Navigation, and Utilization Review to arrange appropriate level of services according to patient's needs based on patient preference and payer coverage in collaboration with the physician and health care team 3. Address psychosocial, clinical, and financial barriers to discharge as identified in assessment in conjunction with the patient/family and health care team 4. Consult appropriate ancillary services (i.e.. PT/OT/ST, etc) as needed 5. Communicate with and update the patient/family, physician, and health care team regarding progress on the discharge plan 6. Identify discharge learning needs (meds, wound care, etc). 7. Arrange for needed discharge transportation as appropriate Outcome: Progressing Note: Evaluation of progress towards goal: Discharge plan progressing. PT/OT recommend SNF Problem: Potential for Compromised Skin Integrity Goal: Skin integrity is maintained or improved Description: Patient's goal is: INTERVENTIONS 1. Perform initial skin assessment on admission and as needed 2. Turn patient every 2 hours and PRN 3. Relieve pressure to bony prominences 4. Avoid shearing 5. Keep skin clean and dry 6. Alternate a full bath with partial baths for elderly 7. Apply lotion/moisturizer on skin 8. Monitor patient's hygiene practices 9. Float heels 10. Collaborate with interdisciplinary team and initiate plans and interventions as needed Outcome: Progressing Note: Evaluation of progress towards goal: Patient educated on repositioning to help prevent breakdown. Problem: Urinary Incontinence Goal: Perineal skin integrity is maintained or improved Description: INTERVENTIONS 1. Assess genitourinary system, perineal skin, labs (urinalysis), and history of incontinence to include past management, aggravating, and alleviating factors 2. Keep skin clean and dry 3. Apply skin protectant 4. Develop skin care regimen 5. Provide privacy when changing patients incontinence device to maintain their dignity 6. Consider placing an indwelling catheter 7. Collaborate with interdisciplinary team and initiate plans and interventions as needed Outcome: Progressing Note: Evaluation of progress towards goal: Perineal skin integrity is being maintained. Arenas catheter in place Problem: Moderate - High Risk Fall Score Description: Bustamante Fall Score of =/> 25 or indicated by [facility] Assessment Goal: Patient should be free from fall Description: Interventions: 1. [place] to environment 2. Hourly rounds addressing the 4 P's (Pain, Positioning, Possessions, Potty) 3. Clear area of hazards (spills, clutter, electrical cords, unnecessary equipment) 4. Place equipment (bed & TV controls, call light, phone, urinal) within reach 5. Encourage patient to wear glasses and hearing aides as appropriate 6. Maintain bed in lowest position 7. Lock wheels on bed/wheelchair 8. Provide adequate lighting, including night light 9. Assess need for additional bedding, food/fluids, pain med's prior to sleep/routinely 10. Provide gripper slippers or personal non-skid footwear 11. Teach patient and patient arborist representative to maintain environment for safety and engage in all aspects of fall prevention program 12. Remind patient to call for help before getting out of bed 13. Initiate bed/chair/exit alarms supportive devices as appropriate, (chair wedge, no-skid floor mat, raised edge mattress, hip protectors) 14. Locate patient bed assignment for optimal visualization 15. Evaluate and identify Safe Patient Handling Equipment needs 16. Provide supervision when out of bed or chair 17. Utilize gait belt as needed to assist with ambulation 18. Place adaptive equipment (cane, walker) within reach 19. Request patient arborist representative bring adaptive equipment/mobility aids from home or obtain and provide as needed 20. Consult pharmacy regarding effects of med's affecting mobility, cognition, and alternatives 21. Obtain physician order for PT if risk factors associated with mobility are present 22. Obtain physician order for OT as appropriate 23. Utilize diversional activities 24. Educate patient and patient arborist representative how to maintain a safe environment during visitation times (notify nurse prior to leaving bedside) 25. Consider appropriateness of medical or non-medical front desk specialist 26. Set up voiding schedule as appropriate (every 2 hours) Outcome: Progressing Note: Evaluation of progress towards goal: Pt. Safety precautions maintained. Call light within reach, side rails up x2, bed alarm on Problem: Neurological Deficit Goal: Neurological status is stable or improving Description: Patient's goal is: INTERVENTIONS 1. Complete Neurological assessment as indicated/ordered 2. Initiate measures to prevent increased intracranial pressure 3. Monitor and assess patient's level of consciousness, motor function, sensory function, and level of assistance needed for ADLs 4. Monitor and report changes from baseline 5. Maintain blood pressure and fluid volume within ordered parameters to optimize cerebral perfusion and minimize risk of hemorrhage 6. Monitor labs and diagnostic tests 7. Administer anti-seizure medications as ordered 8. Maintain airway, patient safety and administer oxygen as ordered 9. Monitor patient for seizure activity, document and report duration and description of seizure to LIP 10. If seizure occurs, turn patient to side and suction secretions as needed 11. Reorient patient post seizure 12. Seizure pads on all 4 side rails 13. Instruct patient/family to notify RN of any seizure activity 14. Instruct patient/family to call for assistance with activity based on assessment 15. Utilize bleeding precautions if thrombolytic given Outcome: Progressing Note: Evaluation of progress towards goal: Neuro status improving. [facility] 06-11-2024 Plan of care note Problem: Safety Goal: Patient will be injury free during hospitalization Description: INTERVENTIONS: 1. Assess patient's risk for falls and implement fall prevention plan of care per policy 2. Provide and maintain a safe environment 3. Proper use of double Identifiers 4. Medication administration using the 5 rights 5. Hand hygiene 6. Specimens are labeled at the bedside 7. Instruct patient/ patient arborist representative about use of safety devices 8. Include patient/ patient arborist representative in decisions related to safety Outcome: Progressing Note: Evaluation of progress towards goal: Patient free from injury, will continue to provide a clean environment, personal objects in reach, and a well light room Problem: Infection Goal: Absence of infection during hospitalization Description: INTERVENTIONS 1. Assess and monitor for signs and symptoms of infection. 2. Monitor lab/diagnostic results. 3. Monitor all insertion sites i.e., indwelling lines, tubes and drains. 4. Monitor endotracheal (as able) and nasal secretions for changes in amount and color. 5. Administer medications as ordered. 6. Instruct and encourage patient and family to use good hand hygiene technique. 7. Identify and instruct patient/patient arborist representative in use of appropriate isolation precautions for identified infection/symptoms. 8. Provide and discuss with patient/patient arborist representative on educational MDRO sheet. 9. Encourage and monitor nutritional status daily and consult senior oracle dba if indicated. 10. Implement neutropenic guidelines as needed. Outcome: Progressing Note: Evaluation of progress towards goal: patient is being treated with IV ATB. Problem: Knowledge Deficit Goal: Patient/patient arborist representative demonstrates understanding of disease process, treatment plan, medications, and discharge instructions Description: INTERVENTIONS 1. Complete learning assessment and assess knowledge base 2. Provide teaching at level of understanding 3. Provide teaching via preferred learning method(s) Outcome: Progressing Note: Evaluation of progress towards goal: Patient kept updated on plan of care, will continue to keep updated as new information arises Problem: Moderate - High Risk Fall Score Description: Bustamante Fall Score of =/> 25 or indicated by [facility] Assessment Goal: Patient should be free from fall Description: Interventions: 1. [place] to environment 2. Hourly rounds addressing the 4 P's (Pain, Positioning, Possessions, Potty) 3. Clear area of hazards (spills, clutter, electrical cords, unnecessary equipment) 4. Place equipment (bed & TV controls, call light, phone, urinal) within reach 5. Encourage patient to wear glasses and hearing aides as appropriate 6. Maintain bed in lowest position 7. Lock wheels on bed/wheelchair 8. Provide adequate lighting, including night light 9. Assess need for additional bedding, food/fluids, pain med's prior to sleep/routinely 10. Provide gripper slippers or personal non-skid footwear 11. Teach patient and patient arborist representative to maintain environment for safety and engage in all aspects of fall prevention program 12. Remind patient to call for help before getting out of bed 13. Initiate bed/chair/exit alarms supportive devices as appropriate, (chair wedge, no-skid floor mat, raised edge mattress, hip protectors) 14. Locate patient bed assignment for optimal visualization 15. Evaluate and identify Safe Patient Handling Equipment needs 16. Provide supervision when out of bed or chair 17. Utilize gait belt as needed to assist with ambulation 18. Place adaptive equipment (cane, walker) within reach 19. Request patient arborist representative bring adaptive equipment/mobility aids from home or obtain and provide as needed 20. Consult pharmacy regarding effects of med's affecting mobility, cognition, and alternatives 21. Obtain physician order for PT if risk factors associated with mobility are present 22. Obtain physician order for OT as appropriate 23. Utilize diversional activities 24. Educate patient and patient arborist representative how to maintain a safe environment during visitation times (notify nurse prior to leaving bedside) 25. Consider appropriateness of medical or non-medical front desk specialist 26. Set up voiding schedule as appropriate (every 2 hours) Outcome: Progressing Note: Evaluation of progress towards goal: Patient free from injury, will continue to provide a clean environment, personal objects in reach, and a well light room Problem: Neurological Deficit Goal: Neurological status is stable or improving Description: Patient's goal is: INTERVENTIONS 1. Complete Neurological assessment as indicated/ordered 2. Initiate measures to prevent increased intracranial pressure 3. Monitor and assess patient's level of consciousness, motor function, sensory function, and level of assistance needed for ADLs 4. Monitor and report changes from baseline 5. Maintain blood pressure and fluid volume within ordered parameters to optimize cerebral perfusion and minimize risk of hemorrhage 6. Monitor labs and diagnostic tests 7. Administer anti-seizure medications as ordered 8. Maintain airway, patient safety and administer oxygen as ordered 9. Monitor patient for seizure activity, document and report duration and description of seizure to LIP 10. If seizure occurs, turn patient to side and suction secretions as needed 11. Reorient patient post seizure 12. Seizure pads on all 4 side rails 13. Instruct patient/family to notify RN of any seizure activity 14. Instruct patient/family to call for assistance with activity based on assessment 15. Utilize bleeding precautions if thrombolytic given Outcome: Progressing Note: Evaluation of progress towards goal: patients neurological status is improving- patient is alert and oriented [employer] 06-11-2024 Progress note Formatting of t his note might be different from the original. DISCHARGE PLANNING NOTE Referrals sent to [facility]/ [facility], [place], [place] (P# ; F# ) and to [facility] in [employer] (P#: [phone]; F#: ) [facility] [employer] 06-11-2024 Progress note Formatting of t his note might be different from the original. DISCHARGE PLANNING NOTE Case discussed in daily transition rounds and chart reviewed by CN. Barriers to discharge include SNF arrangements, arenas Discharge Plan remains: SNF. Social work met with patient and daughter to finalize transition arrangements. Patient is now agreeable to SNF placement and patient and daughter are requesting referral to [facility] and [facility]. Social work task [facility] to send referral to above facilities- wait acceptance. Patient will not require precert for placement. CN will continue to follow and is available should any further needs arise. - MILLIE CALL 06/11/24 4:11 PM [facility] [employer] 06-11-2024 Progress note Formatting of t his note is different from the original. Physical Therapy Treatment Discharge Recommendations PT Recommendations: [facility]F Comments: due to decreased functional independence from prior to hospitalization, inability to care for self, high fall risk 6 Clicks: Basic Mobility Turning from your back to your side while in a flat bed without using bed rails?: A little Moving from lying on your back to sitting on side of flat bed without using bed rails?: A little Moving to and from bed to a chair (including w/c)?: A little Standing up from a chair using your arms (e.g. w/c or bedside chair)?: A little To walk in hospital room?: A little Climbing 3-5 steps with a railing?: A little Scoring 6 Clicks: Basic Mobility Raw Score: 18 CMS G Code Modifier: CK Therapy Plan Need for skilled Physical Therapy to address deficits in functional mobility due to a status decline resulting from deconditioning and acute encephalopathy PT Treatment/Interventions: Functional transfer training, Endurance training, Patient/family training, Balance, Bed mobility, Stair training, Gait training, Functional activities, Neuromuscular reeducation PT Frequency: 2-3days/week PT Duration: LOS Patient Response to Treatment: Progressing toward goals Assessment Patient Assessment Therapy Problem List: Decreased balance, Decreased endurance, Decreased mobility, Decreased self-care trans, Decreased LE strength Patient Response to Treatment: Progressing toward goals Mood/Affect: Labile Rehab Prognosis: Fair, With continued PT status post acute discharge Visit RN Communication: Yes Medical Record Reviewed: Yes PT Type of Visit: Treatment Precautions Activity: early mobility, pass Equipment: gait belt, RW, arenas Telemetry/Furnace Keeper: Yes Oxygen Used: room air Other: High fall risk, impulsive, h/o ETOH abuse, non-receptive to education on safety, bed/chair alarm Pain Assessment Pain Assessment: No/denies pain Hearing / Speech / Vision Hearing: Within Functional Limits Speech: Within Functional Limits Current Vision: Wears glasses all the time Cognition Overall Cognitive Status: Exceptions to Within Functional Limits Arousal/Alertness: Appropriate responses to stimuli Attention Span: Difficulty attending to directions, Difficulty dividing attention Orientation Level: Oriented to person, Oriented to situation Following Commands: Follows one step commands with increased time, Follows one step commands with repetition Safety Judgment: Decreased awareness of need for assistance, Decreased awareness of need for safety Awareness of Errors: Decreased awareness of errors Insight of Deficits: Decreased awareness of deficits Problem Solving: Reduced Other: pt irritable and frustrated with not getting care he needs. pt requires max encouragement to partitipcate. daughter present and able to convince pt to amb with therapy. pt states he is weak but then refuses to amb Bed Mobility Other: not tested, pt up in chair with call light in reach before and after treatment Transfers Sit to Stand: Standby assist Stand to Sit: Standby assist Other: verbal cues to keep from aborting walker as arenas attatched to it Gait Base of Support: Narrow Pattern: Decreased nj, Forward trunk Gait Assistance: Contact guard assist Assistive Device: Rolling walker Gait Distance: 60' x 4 2 Turns: Yes Other: standing rest breaks due to fatigue as pt states i'm not tired, i'm fatigued Balance Balance Evaluation: Exceptions to Functional Limits Sitting Balance: Static: Good Sitting Balance: Dynamic: Good Standing Balance: Static: Good Standing Balance: Dynamic: Fair Other: with UE support Activity Tolerance Endurance: Tolerates <30 minutes activity WITHOUT vital sign changes Other: pt able to stand x 6 minutes at sink for ADL with good tolerance and balance Plan Physical Therapy Care Plan Physical Therapy Care Plan (Active) Template: PT - Physical Therapy Problem: Activity Tolerance Dates: Start: 06/09/24 Disciplines: PT Goal: Tolerate > 30 minutes of activity WITH rest breaks Dates: Start: 06/09/24 Expected End: 06/23/24 Description: Goal Description: Disciplines: PT Outcomes Date/Time User Outcome 06/11/241511 Horacio Erickson, PT Progressing Goal Note filed on 06/11/241511 by Horacio Erickson PT Evaluation of progress towards goal: Problem: Bed Mobility Dates: Start: 06/09/24 Disciplines: PT Goal: Patient will perform bed mobility with Modified [place] Dates: Start: 06/09/24 Expected End: 06/23/24 Description: Goal Description: Disciplines: PT Problem: Gait Dates: Start: 06/09/24 Disciplines: PT Goal: Patient will perform gait with Modified [place] Dates: Start: 06/09/24 Expected End: 06/23/24 Description: With__RW__,__150__feet Goal Description: Disciplines: PT Outcomes Date/Time User Outcome 06/11/241511 Horacio Erickson PT Progressing Goal Note filed on 06/11/241511 by Horacio Erickson PT Evaluation of progress towards goal: Problem: Stairs/Curb Dates: Start: 06/09/24 Disciplines: PT Goal: Patient will perform stairs/curb with Stand By Assist Dates: Start: 06/09/24 Expected End: 06/23/24 Description: __4___steps,___SBA Goal Description: Disciplines: PT Problem: Standing Balance Dates: Start: 06/09/24 Disciplines: PT Goal: Improve balance to good Dates: Start: 06/09/24 Expected End: 06/23/24 Description: Static Dynamic Disciplines: PT Outcomes Date/Time User Outcome 06/11/241511 Horacio Erickson PT Progressing Goal Note filed on 06/11/241511 by Horacio Erickson PT Evaluation of progress towards goal: Problem: Transfers Dates: Start: 06/09/24 Disciplines: PT Goal: Patient will perform transfers with Modified [place] Dates: Start: 06/09/24 Expected End: 06/23/24 Description: Goal Description: Disciplines: PT Outcomes Date/Time User Outcome 06/11/241511 Horacio Erickson PT Progressing Goal Note filed on 06/11/241511 by Horacio Erickson PT Evaluation of progress towards goal: Physical Therapy Care Plan (Resolved) There are no resolved problems. Principal Problem: Acute encephalopathy [facility] [facility] 06-11-2024 Progress note Formatting of t his note is different from the original. Occupational Therapy Treatment Discharge Recommendations OT Recommendations : [facility]F Comments: Recommend SNF for continued therapy to reach PLOF. Pt at a high risk of falls and unsafe to return home alone. 6 Clicks: Daily Activity Putting on and taking off regular lower body clothing?: A lot Bathing (including washing, rinsing, drying)?: A little Toileting, which includes using toilet, bedpan or urinal?: A little Putting on and taking off regular upper body clothing?: A little Taking care of personal grooming such as brushing teeth?: A little Eating meals?: None Scoring Daily Activity Raw Score: 18 CMS G Code Modifier: CK Assessment Patient Assessment Patient Response to Treatment: Progressing toward goals Mood/Affect: Impulsive Visit RN Communication: Yes Medical Record Reviewed: Yes OT Type of Visit: Treatment Precautions Activity: Early mobility-pass, okay per JAMEE Mccray Equipment: Gait belt, RW, arenas Telemetry/Furnace Keeper: Yes Oxygen Used: Room air Other: High fall risk, impulsive, h/o ETOH abuse, non-receptive to education on safety, bed/chair alarm Pain Assessment Pain Assessment: No/denies pain ADL / IADL Where Assessed: Standing at sink, Chair Grooming Assistance: Contact guard assist LE Dressing Assistance: Mod assist Other: Pt required mod A to don pants at chair with increased time/cues and assist to thread arenas. Pt able to complete fastener on pants with increased time to complete. Pt stood at sink to brush teeth and wash face with CGA and verbal cues for safety. Home Management - IADL Other: Pt required mod A to don pants at chair with increased time/cues and assist to thread arenas. Pt able to complete fastener on pants with increased time to complete. Pt stood at sink to brush teeth and wash face with CGA and verbal cues for safety. Cognition Overall Cognitive Status: Exceptions to Within Functional Limits Attention Span: Difficulty attending to directions, Difficulty dividing attention Following Commands: Follows one step commands with increased time, Follows one step commands with repetition Safety Judgment: Decreased awareness of need for assistance, Decreased awareness of need for safety Awareness of Errors: Decreased awareness of errors Insight of Deficits: Decreased awareness of deficits Problem Solving: Reduced Bed Mobility Other: Pt in chair upon entrance and exit, chair alarm on, call light within reach, and all needs met. Transfers Sit to Stand: Standby assist Stand to Sit: Standby assist Other: Cues for safety Gait Gait Assistance: Contact guard assist Assistive Device: Rolling walker Gait Distance: 60' x4 Limiting Factors to Gait: Fatigue, Weakness, Decreased safety, Cognition/difficulty following directions Other: Standing rest breaks throughout, pt reports I'm not tired, I'm fatigued. Balance Sitting Balance: Static: Good Sitting Balance: Dynamic: Good Standing Balance: Static: Good Standing Balance: Dynamic: Fair Other: Pt sat unsupported in chair during LB dressing task without LOB. Pt completed static stand at sink with unilateral UE support and CGA. Activity Tolerance Endurance: Tolerates <30 minutes activity WITHOUT vital sign changes Other: Limited by fatigue, weakness, and cognition. Pt is impulsive and demo poor safety awareness throughout, required max cues. Plan Occupational Therapy Care Plan Occupational Therapy Care Plan (Active) Template: OT - Occupational Therapy Problem: Activity Tolerance Dates: Start: 06/09/24 Disciplines: OT Goal: Tolerate > 30 minutes of activity WITH rest breaks Dates: Start: 06/09/24 Expected End: 07/07/24 Description: Goal Description: Disciplines: OT Outcomes Date/Time User Outcome 06/11/241517 JERMAN Orr/Bartolome Progressing Goal Note filed on 06/11/241517 by JERMAN Orr/Bartolome Evaluation of progress towards goal: Problem: Bed Mobility Dates: Start: 06/09/24 Disciplines: OT Goal: Patient will perform bed mobility with Modified [place] Dates: Start: 06/09/24 Expected End: 07/07/24 Description: Goal Description: Disciplines: OT Problem: Cognition Dates: Start: 06/09/24 Disciplines: OT Goal: Patient's goal is: (specify details) Dates: Start: 06/09/24 Expected End: 07/07/24 Description: Pt will demonstrate good safety awareness 100% of the time Disciplines: OT Problem: Functional Mobility Dates: Start: 06/09/24 Disciplines: OT Goal: Patient will perform functional mobility with Modified [place] Dates: Start: 06/09/24 Expected End: 07/07/24 Description: Functional household distances Disciplines: OT Outcomes Date/Time User Outcome 06/11/24 151 JERMAN Orr/Bartolome Progressing Goal Note filed on 06/11/24 151 by JERMAN Orr/Bartolome Evaluation of progress towards goal: Problem: Other (Customize) Dates: Start: 06/09/24 Disciplines: OT Goal: Improve Dates: Start: 06/09/24 Expected End: 07/07/24 Description: Perform ADL's with mod I Disciplines: OT Outcomes Date/Time User Outcome 06/11/24 1518 JERMAN Orr/Bartolome Progressing Goal Note filed on 06/11/24 151 by JERMAN Orr/Bartolome Evaluation of progress towards goal: Problem: Standing Balance Dates: Start: 06/09/24 Disciplines: OT Goal: Improve balance to good Dates: Start: 06/09/24 Expected End: 07/07/24 Description: 10 mins standing activity to increase tolerance for grooming at the sink Disciplines: OT Outcomes Date/Time User Outcome 06/11/24 151 JERMAN Orr/Bartolome Progressing Goal Note filed on 06/11/241517 by CY Orr Evaluation of progress towards goal: Problem: Strength Dates: Start: 06/09/24 Disciplines: OT Goal: Improve strength Dates: Start: 06/09/24 Expected End: 07/07/24 Description: Tolerate BUE HEP to increase strength to 5/5 Disciplines: OT Problem: Transfers Dates: Start: 06/09/24 Disciplines: OT Goal: Patient will perform transfers with Modified [place] Dates: Start: 06/09/24 Expected End: 07/07/24 Description: Goal Description: Disciplines: OT Outcomes Date/Time User Outcome 06/11/241517 JERMAN Orr/Bartolome Progressing Goal Note filed on 06/11/241517 by JERMAN Orr/Bartolome Evaluation of progress towards goal: Occupational Therapy Care Plan (Resolved) There are no resolved problems. Principal Problem: Acute encephalopathy [facility] 06-11-2024 Nurse Note Summary: patient b ehavior Patient declined walking with RN and NA multiple times. Patient declined having food warmed up, RN provided box lunch for patient. Patient continues to talk down to staff. [facility] History of Present illness Narrative Daily Progress Note Principal Problem: Acute encephalopathy LOS: 4 days Subjective Pt seen and examined at bedside. Overnight issues noted. Plan of care discussed with RN. Pt wants to go home Objective Vital signs in last 24 hours: Temp: [36.6 C (97.9 F)-37.7 C (99.8 F)] 36.7 C (98.1 F) Pulse: [86-144] 144 Resp: [14-18] 18 BP: (110-152)/(70-120) 111/88 SpO2: [89 %-100 %] 96 % O2 Device: None (Room air) O2 Flow Rate (L/min): [0 L/min] 0 L/min Recent Results (from the past 24 hours) CBC auto differential Collection Time: 06/11/24 6:32 AM Result Value Ref Range White Blood Cells 5.7 4.0 - 11.0 X10E9/L RBC count 4.42 4.10 - 5.70 X10E12/L Hemoglobin 10.0 (L) 13.0 - 17.0 g/dL Hematocrit 32.3 (L) 39 - 49 % MCV 73 (L) 80 - 100 fL MCH 22.7 (L) 27 - 34 pg MCHC 31.1 (L) 32 - 36 g/dL RDW 23.5 (H) 11.5 - 15.0 % Platelets 226 150 - 450 X10E9/L MPV 8.7 7 - 12 fL Seg neutrophil 79.4 % Lymphocyte 6.9 % Monocytes 7.8 % Eosinophil 4.9 % Basophil 1.0 % Neutrophils Absolute (M) 4.5 1.5 - 6.6 X10E9/L Lymphocytes Absolute 0.4 (L) 1.0 - 3.5 X10E9/L Monocytes Absolute 0.4 0 - 0.9 X10E9/L Eosinophils Absolute 0.3 0.0 - 0.4 X10E9/L Basophils Absolute 0.1 0.0 - 0.2 X10E9/L Hypochromia 1+ (A) NONE^NONE Polychromasia 1+ (A) NONE^NONE Fragment 1+ (A) NONE^NONE Ovalocytes 2+ (A) NONE^NONE Comprehensive metabolic panel Collection Time: 06/11/24 6:32 AM Result Value Ref Range Sodium 141 134 - 146 mmol/L Potassium, Bld 3.7 3.5 - 5.0 mmol/L Chloride 105 98 - 109 mmol/L CO2 26 22 - 32 mmol/L Anion gap 10 5 - 15 mmol/L BUN 27 5 - 27 mg/dL Creatinine 1.23 0.60 - 1.30 mg/dL Glucose 100 (H) 65 - 99 mg/dL Calcium 8.3 (L) 8.5 - 10.5 mg/dL Total Protein 6.0 6.0 - 8.0 g/dL Albumin 3.4 3.2 - 5.3 g/dL Alkaline Phosphatase 67 39 - 130 U/L AST 28 0 - 41 U/L ALT 21 0 - 40 U/L Total bilirubin 0.7 0.3 - 1.2 mg/dL eGFR (CKD-EPI)non-race dependent 64 >59 ml/min/1.73sq.m Physical Exam: General Appearance: in no acute distress Neck: neck- supple, no mass, non-tender Lungs: Normal expansion. Clear to auscultation. Heart: Heart sounds are normal. Regular rate and rhythm Abdomen: Soft, non-tender, normal bowel sounds Extremities: Extremities warm to touch, pink, with no edema. Neurologic: Alert and oriented x 3, reflexes normal and symmetric, strength and sensation grossly normal Psych exam:alert,oriented, in NAD with a full range of affect, normal behavior and no psychotic features CT brain without contrast Result Date: 06/08/[address] of the brain dated dated 06/08/2024 at 7:56 PM INDICATION: Bilateral subdural fluid collections PROCEDURE: Automatic radiation exposure lowering techniques were utilized. All CT scans at this facility use dose modulation, iterative reconstruction, and/or weight based dosing when appropriate to reduce radiation dose to as low as reasonably achievable.. A nonenhanced CT of the brain and sagittal and coronal reformats obtained. FINDINGS: Comparison is to 2024 and 06/07/2024. Redemonstration of calcifications in the basal ganglia, and encephalomalacia in the right frontal and occipital lobes not significantly changed. No intracranial bleed. No mass, mass effect, or midline shift shift. No significant change from the comparison examination. Tiny subdural hygromas of unknown clinical significance. IMPRESSION: 1. No intracranial bleed. 2. No significant change from the comparison examination. Finalized by Uriel Smith MD on 06/08/2024 8:[address] brain without contrast Result Date: 06/08/2024 CT OF THE HEAD WITHOUT CONTRAST INDICATION: Pain. Head trauma, moderate-severe COMPARISON: 06/07/2024 TECHNIQUE: CT was obtained of the head without contrast. FINDINGS: INTRACRANIAL: Stable configuration of the ventricles and sulci with mild to moderate volume loss. No mass effect or midline shift. Right occipital encephalomalacia/gliosis. Basal ganglial mineralization. Maintained lanier-white differentiation. Potential small lentiform fluid collections over the bifrontal regions somewhat less conspicuous than on prior; consider MRI follow-up. No convincing intracranial hemorrhage.. SOFT TISSUES and ORBITS: Orbits are unremarkable. Soft tissues within normal limits. CALVARIUM: No depressed calvarial fracture or suspicious lesion. SINUSES AND MASTOID AIR CELLS: Well aerated. IMPRESSION: No significant change from 06/07/2024.. See above. Consider MRI follow-up . All CT scans at this facility use dose modulation, iterative reconstruction, and/or weight based dosing when appropriate to reduce radiation dose to as low as reasonably achievable. Finalized by Zac Lewis MD on 06/08/2024 11:06 AM EEG Result Date: 06/07/2024 Images from the original result were not included. History This is a routine EEG in a patient with altered mental status. Procedure This is a standard digital EEG performed in the 10-[employer] system and was reviewed with multiple reformattable montages Technical Description There is no well defined posterior dominant rhythm noted. The background is primarily composed of semirhythmical 20-40 uv delta and theta range frequencies. Semi rhythmical theta and delta range activity is intermixed with occasional beta activity noted over the frontal and central region. There is intermittent attenuation of the background frequencies but no clear state related changes are noted. Hyperventilation is deferred. Photic stimulation fails to elicit a sustained driving response. There is no evidence of definite epileptiform activity during this study Clinical Interpretation This EEG in the awake state is abnormal due to the presence of moderate to severe generalized background slowing suggestive of moderate to severe bi-hemispheric cerebral dysfunction that can be seen in post ictal states, metabolic, hypoxic or toxic encephalopathies, sedative medication use or primary neurological disorders. Bertha Oakley MD Educational Consultant Neurology/Neurophysiology [facility] CT brain without contrast Result Date: 06/07/2024 CT HEAD WITHOUT IV CONTRAST CLINICAL STATEMENT:Patient demonstrates some possible altered consciousness. Head trauma, minor (Age >= 65y); Fall in hospital, on heparin infusion Comparison study: 06/05/2024 TECHNIQUE: Axial views were obtained at 2.5 mm interval through the head without IV contrast. Automatic dose exposure reduction technique utilized. FINDINGS: The midline structures are not deviated. The ventricular system is prominent.. The lanier and white matter show periventricular white matter disease of a chronic nature with basal ganglia calcification noted. There is gliosis in the right posterior temporal region consistent with an old infarct. This extends to the occipital region. There are extra-axial fluid collections overlying the cerebral hemispheres that was not seen on the study from 2 days previous. These measure approximately 4 to 5 mm in maximum width without significant mass effect. The posterior fossa is unremarkable. No features of raised intracranial pressure.No acute intracranial bleed. The IACs are unremarkable. The cerebellopontine angles are unremarkable. The temporomandibular joints show no abnormality. The osseous structures in the skull base and in the calvarium show no definite abnormality. The orbits are normal. The paranasal sinuses are clear. The mastoid air cells are clear. IMPRESSION: Chronic small vessel white matter disease. 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 Bilateral subdural fluid collections/hygromas without significant mass effect. These could be part of idiopathic intracranial hypotension. All CT scans at this facility use dose modulation, iterative reconstruction, and/or weight based dosing when appropriate to reduce radiation dose to as low as reasonably achievable. Finalized by Gab Clay MD on 06/07/2024 10:01 PM MRCP with MRI abdomen without contrast Result Date: 06/07/2024 History: Recent with history of jaundice. Exam/Technique: Multiplanar, multisequence MR imaging is obtained of the MRCP and MRI abdomen without intravenous contrast. Routine multiplanar multisequence MR imaging of the abdomen was performed prior to and following uneventful administration of intravenous gadolinium contrast. M.R.C.P. was performed with 3-D volume rendered reformatted and maximum intesntiy projection rotational images for the evaluation of the pancreatic and biliary ductal system at the MR console. Comparison: CT abdomen pelvis dated 06/07/2024. Ultrasound abdomen dated 06/06/2024. Findings: Lack of IV contrast compromises detail. Motion artifact compromises detail. No evidence of fatty infiltration of the liver. No focal liver lesions. CBD not dilated and measures Bibasal pleural effusions. Body wall edema. Mesenteric edema noted. Generalized bone marrow signal is appropriate with degenerative changes. The gallbladder is distended and demonstrates a fluid sludge level. There is no clear evidence of biliary dilatation. There is no evidence of dilatation of the pancreatic duct. No obvious pancreatic mass. Cyst formation in the right kidneys. IMPRESSION: The examination is limited due to motion artifact and lack of contrast. There is significant edema of the mesenteric fat planes as well as significant pleural effusions. There is a no biliary duct dilatation but there is sludge in the gallbladder. No biliary duct dilatation. Finalized by Gab Clay MD on 06/07/2024 8:[address] abdomen and pelvis without contrast Result Date: 06/07/2024 CLINICAL INFORMATION: Abdominal pain radiating to the back, kidney stone suspected. TECHNIQUE: Abdominopelvic CT without contrast. All CT scans at this facility use dose modulation, iterative reconstruction, and/or weight based dosing when appropriate to reduce radiation dose to as low as reasonably achievable. COMPARISON: 07/19/2015. FINDINGS LOWER CHEST: Moderate bilateral pleural effusions with compressive atelectasis. Minor interstitial edema in the lung bases. Coronary artery calcifications. Cardiomegaly. HEPATOBILIARY: Unenhanced liver and gallbladder unremarkable. No biliary dilation. PANCREAS: Unenhanced pancreas unremarkable. No pancreatic ductal dilation. SPLEEN: The unenhanced spleen is within normal limits. ADRENAL GLANDS: The unenhanced adrenal glands are within normal limits. KIDNEYS, URETERS, AND BLADDER: Simple right interpolar renal cyst requires no follow-up. Hyperattenuating 1.6 cm left inferior pole renal cyst appears unchanged from prior. Extensive bilateral perinephric edema. No collecting system dilation or evidence of ureteral calculus. Urinary bladder decompressed by Arenas catheter. GI TRACT AND PERITONEUM: Small and large bowel are normal in caliber. Normal appendix. VASCULATURE: Abdominal aorta is nonaneurysmal. Aortoiliac calcifications are present. LYMPH NODES: Not enlarged. REPRODUCTIVE ORGANS: Prostate calcifications present. MSK: Degenerative changes throughout the spine. Partial osseous fusion across the sacroiliac joints. Mild diffuse edema in the body wall. IMPRESSION: * Moderate bilateral pleural effusions and mild interstitial edema in the lung bases. Additional findings of volume overload including mild body wall edema, retroperitoneal and presacral edema along with trace ascites. Approved by Resident Frederick Crump DO on 06/07/2024 9:47 AM Baldev Christina MD have personally reviewed the image(s) and agree with and/or edited the report Finalized by Baldev Hyde MD on 06/07/2024 10:07 AM MRA neck with and without contrast Result Date: 06/10/2024 EXAM: MR MRA NECK W WO CONT INDICATION: Stroke, follow up COMPARISONS: None TECHNIQUE/PROTOCOL: Dynamic contrast enhanced neck MRA performed. 3D reconstructions were performed to evaluate vascular anatomy. All internal carotid measurements were made according to the NASCET criteria. CONTRAST: 12.5mL ProHance IV. FINDINGS: Normal triple vessel takeoff of the aorta. No significant narrowing of the origins of the great vessels. Common carotids are patent bilaterally. Moderate irregularity of the bilateral carotid bulbs contributes to approximately 25% stenosis of the proximal bilateral ICAs. The remainder of the ICAs are patent bilaterally. Left side dominant vertebral artery. Diminutive right vertebral artery. No high-grade stenosis. No significant soft tissue abnormalities of the neck IMPRESSION: Mild atherosclerosis of the bilateral carotid bulbs 2 views to no more than mild stenosis of the origins of the ICAs. Otherwise, no high-grade stenosis, occlusion, or evidence of acute vascular injury. Finalized by Zac Lucia on 06/10/2024 10:36 AM MRA head without contrast Result Date: 06/10/2024 EXAM: MR MRA HEAD WO CONT INDICATION: Stroke suspected, sickle cell disease (Ped 0-17y) COMPARISONS: None TECHNIQUE/PROTOCOL: 3D time of flight non contrast brain MRA performed. 3D reconstructions were performed to evaluate vascular anatomy. FINDINGS: VASCULATURE FINDINGS: Intracranial Intracranial ICAs: Mild atherosclerosis of the bilateral carotids. No significant stenosis. Mild asymmetric caliber of the carotids in which the right is mildly larger than the left. MCAs: Mild stenosis proximal to mid right M1 segment. Symmetric distal arborization of the bilateral MCA distributions ACAs: Normal bilaterally. AComm: Normal P-Comms: Visualized bilaterally. Vertebral arteries: Left side dominant. Diminutive right vertebral artery. No appreciable flow related enhancement within the proximal V4 segment possibly due to flow dynamics and [id number] technique as there appears to be normal contrast enhancement within the V4 segment on the MRA of the neck Basilar artery: Normal. senior adults director: The left DRYWALL TAPER is normal. Diminished flow related enhancement within the distal right DRYWALL TAPER distribution likely sequelae of prior right DRYWALL TAPER infarct. IMPRESSION: 1. Diminished flow related signal within the right DRYWALL TAPER is likely chronic and related to known right chronic occipital infarct/encephalomalacia. 2. Diminished flow related enhancement within the proximal right vertebral artery is likely due to flow dynamics and [id number] technique is there is normal-appearing enhancement on the postcontrast MRA of the neck. 3. Otherwise, no high-grade stenosis, occlusion, or evidence of sizable aneurysm. Finalized by Zac Lucia on 06/10/2024 9:32 AM MR brain with and without contrast Result Date: 06/10/2024 EXAM:MR BRAIN W WO CONT INDICATION: Mental status change, unknown cause COMPARISON: None TECHNIQUE: Multiplanar multisequence pre and post contrast MR sequences through the head/brain. 12.5 mL ProHance BRAIN FINDINGS: Motion degraded study, most notably postcontrast T1 sequences Brain Parenchyma: Questionable punctate focus of diffusion hyperintense signal within the ventral dexter best appreciated on 8:37, this is favored to be artifactual as a correlate is not identified on additional sequences. No acute hemorrhage, cerebral edema, or acute infarction. No mass, mass effect, or midline shift. Encephalomalacia right medial occipital lobe. Small volume encephalomalacia right medial perirolandic region. Periventricular subcortical T2/FLAIR signal hyperintensities likely related to chronic microangiopathic change. Ventricles and Sulci: Generalized parenchymal atrophy. Extra-Axial Spaces: No extra-axial fluid collection. Intracranial Flow-Voids: Arterial and venous sinus flow voids appear normal. Orbits: Normal Paranasal Sinuses: Mild mucosal thickening Mastoid Air Cells: Clear Cranium: Normal Extracranial Soft Tissues: Normal IMPRESSION: No definite evidence of acute or subacute intracranial abnormalities within the resolution of the motion degraded study. There is a questionable punctate focus of diffusion signal within the ventral dexter which is favored to be artifactual as a correlate is not identified on additional sequences. 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 Correlate with symptoms. Sequelae of prior right DRYWALL TAPER territory ischemia Finalized by Zac Lucia on 06/10/2024 7:[address] brain without contrast Result Date: 06/08/[address] of the brain dated dated 06/08/2024 at 7:56 PM INDICATION: Bilateral subdural fluid collections PROCEDURE: Automatic radiation exposure lowering techniques were utilized. All CT scans at this facility use dose modulation, iterative reconstruction, and/or weight based dosing when appropriate to reduce radiation dose to as low as reasonably achievable.. A nonenhanced CT of the brain and sagittal and coronal reformats obtained. FINDINGS: Comparison is to 2024 and 06/07/2024. Redemonstration of calcifications in the basal ganglia, and encephalomalacia in the right frontal and occipital lobes not significantly changed. No intracranial bleed. No mass, mass effect, or midline shift shift. No significant change from the comparison examination. Tiny subdural hygromas of unknown clinical significance. IMPRESSION: 1. No intracranial bleed. 2. No significant change from the comparison examination. Finalized by Uriel Smith MD on 06/08/2024 8:36 PM Assessment/Plan Acute on chronic diastolic heart failure, volume overload- Moderate bilateral pleural effusion, body wall edema, presacral edema trace ascites noted on CT abdomen and pelvis on 06/07/2024 S/p IV Lasix. Continue to monitor Daily weights, intake and output. Acute abdominal pain-with elevated LFTs, hyperbilirubinemia. Currently abdominal pain is resolved. Received Rocephin and Flagyl x5days. GI and General surgery signed off. No acute intervention planned MRCP showing significant edema of the mesenteric fat planes as well as significant pleural effusion. Ductal dilatation, sludge in the gallbladder. 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 MRI brain currently negative for any acute infarcts. Maintain delirium precautions. No indication for LP. EEG showing severe background slowing S/p fall during hospital stay while the pt was on heparin drip, paroxysmal AFib. At home he was on Eliquis.- CT head showing bilateral subdural fluid collection/hygromas without significant mass effect. Heparin drip discontinued. Images reviewed by Neurosurgery. No surgical intervention planned. Ok to resume eliquis per neurosurg on 06/11/24 Acute urinary retention, right-sided hydronephrosis-s/p Arenas catheter placement. Continue Flomax. Maintain arenas for at least a week and f/u outpt for void trial per urology. Alcohol use disorder- on CIWA protocol. Thiamine and folic acid. Marijuana and tobacco use disorder Paroxysmal atrial fibrillation- Started on Coreg for rate control. Resume Eliquis 06/11/24 Echo from outlying facility showed biatrial enlargement, normal systolic function EF 50%, concentric hypertrophy, elevated RVSP 51 mmHg, Primary hypertension- stable Dispo: pt agrees to go to SNF. Await acceptance. DVT prophylaxis - azaleaquis Tabatha León MD:58 PM This note was created with the assistance of a speech-recognition program. Every effort was made to ensure accuracy; however, inadvertent computerized terminal supervisor errors may be present. Images from the original note were not included. Jr. Romero Gregor, M.D., Zac Jin M.D., Wilfred Lang M.D., Lizbeth Rader M.D., Melina Burks M.D., Tesfaye Bruno M.D., Sachin Cao M.D., Orlando Mora M.D, Florentino Ervin M.D. Hospital day: 4 Chief Complaint: Possible hydronephrosis, urinary retention Subjective: Patient presented to the hospital due to mental status changes. He was found to have elevated bilirubin. Ultrasound of the time showed possible right hydronephrosis. Urology was consulted for these findings. Patient underwent a CT scan at this hospital did not find any hydronephrosis. Arenas catheter placed on admission, removed 06/09. Patient had initially passed trial of void. However on 06/10 afternoon, patient had worsening suprapubic discomfort with elevated bladder scan volumes greater than 500 cc and inability to urinate. Urology reconsulted for Arenas catheter placement. Eighteen [place] tip catheter placed without resistance with return of greater than 1 L of urine. Weight: 62.9 kg (138 lb 10.7 oz) Patient Vitals for the past 24 hrs: BP Temp Temp src Pulse Resp SpO2 06/11/24 0446 (!) 121/92 36.8 C (98.2 F) Oral 91 14 100 % 06/11/24 0019 113/88 -- -- 97 -- 97 % 06/10/24 2250 131/80 36.6 C (97.9 F) Oral 95 18 99 % 06/10/242028 (!) 144/97 -- -- 106 -- 100 % 06/10/24 1634 124/81 36.6 C (97.8 F) Oral 109 18 97 % 06/10/24 1207 (!) 133/95 36.3 C (97.4 F) Oral 102 20 96 % 06/10/24 0841 (!) 125/98 36.6 C (97.8 F) Oral 94 -- 98 % Intake/Output Summary (Last 24 hours) at 06/11/2024 0747 Last data filed at 06/10/20242011 Gross per 24 hour Intake -- Output 700 ml Net -700 ml Results from last 7 days Lab Units 06/10/24 0706/09/24195106/09/24 0544 06/08/24210906/08/24405 POTASSIUM mmol/L 3.4* 3.8 3.5 < > 3.4* CHLORIDE mmol/L 103 -- 102 -- 107 CO2 mmol/L 28 -- 30 -- 26 BUN mg/dL 22 -- 18 -- 24 CREATININE mg/dL 1.28 -- 1.32* -- 1.58* GLUCOSE mg/dL 103* -- 99 -- 117* CALCIUM mg/dL 8.3* -- 8.7 -- 8.3* < > = values in this interval not displayed. Results from last 7 days Lab Units 06/10/24 0706/09/24 0506/08/2440506/07/24 0542 WBC X10E9/L 6.7 6.0 -- 6.4 HEMOGLOBIN g/dL 9.9* 12.6* 11.3* 10.9* HEMATOCRIT % 31.8* 40.9 -- 35.2* PLATELETS X10E9/L 243 271 277 259 Lab Results Component Value Date SPECIFICGRA 1.011 06/07/2024 LEUKOCYTE Negative 06/07/2024 GLU 103 (H) 06/10/2024 UROBILINOGEN <1.1 06/07/2024 Additional Lab/culture results: Physical Exam: General: Altered Heart: Regular rate and rythym Lungs: Symmetric chest rise, normal work of breathing Abdomen: Soft, non tender, non distended, : Arenas in place draining clear, light yellow urine Interval Imaging Findings: Impression: Patient is a 68-year-old male who presented to the hospital and altered mental status. He was found to have possible cholecystitis. Urology consulted for urinary retention 2 possible right-sided hydronephrosis. Patient's CT scan was negative for hydro. Arenas catheter in place for retention. Patient is currently altered and Arenas catheter remain in place until he was more alert and oriented. Plan: Maintain Arenas catheter, we will need to stay in place for at least a week due to high-volume retention. Patient cleared for discharge from Urology standpoint. And follow-up clinic for outpatient trial of void. Start Flomax Encourage ambulation Decrease opioids Recommend avoiding anticholinergic this can worsen urinary retention Charted frequency of bowel movements appear sporadic, added bowel regimen. Please titrate to 1-2 soft bowel movements per day. Eric Dejesus MD PGY1 Urology 7:47 AM 06/11/2024 Cosigned by Lizbeth Horne MD at 06/11/2024 6:48 PM EST Associated attestation - Lizbeth Rader MD - 06/11/2024 6:48 PM EST I saw the patient. I participated and was physically present during the critical/leonardo portions of the service. I was directly involved in the management and treatment plan of the patient. I reviewed the resident s note. Additional Notes/ Findings: Patient was started on Flomax today. Continue Arenas for one week. May have void trial as outpatient. Images from the original note were not included. [facility] Neurology General Neurology Consultation Progress Note Consult Neurology Service: [phone] Primary Team: Howie Hospitalist Chief Concern and Reason for Consultation: Altered mental status Interval History: Johnathan Rodney is a 68 y.o. year old male for whom Neurology was consulted for chief concern of altered mental status. Patient has history of paroxysmal atrial fibrillation on Eliquis, hypertension, chronic HFrEF (EF of 40% in 04/2023), alcohol use disorder, hyperlipidemia, and medication noncompliance. Patient was initially evaluated at outside hospital by tele Neurology for concerns of altered mental status and hallucinations. Per chart review, patient was brought in by family due to concerns of confusion as well as 2 week history of hallucinations. It was reported that patient lived alone and it was unclear if patient was compliant with his medications. Per patient's daughter, the patient had visual hallucinations of spiders and the hallucinations were getting more severe. Patient was becoming more paranoid as well. Additionally, it was noted that patient would use alcohol daily as well as marijuana and cigarettes. Outside hospital CT head showed remote infarcts in the right frontal and right occipital lobe. MRI brain showed no acute infarcts. Patient was noted to be in AFib with RVR at the outside hospital. Additionally, abdominal ultrasound showed concerns for acute versus chronic cholecystitis. Patient was started on IV Rocephin and Flagyl. Tele neurology recommended that the patient be further evaluated by Neurology and consider LP for occult infection. Patient was transferred to [facility] for further evaluation. Interval history: Patient seen and evaluated at the bedside, afebrile and hemodynamically stable. Patient was awake, alert, oriented x4 today, he is back to baseline. Patient was talking coherently, making jokes and was answering questions about his condition, he was asking about timing of discharge. Pertinent past Medical History/Family/Social History reviewed as per initial HPI. Pertinent Systems reviewed as per initial HPI, and negative as below except for mentioned above. Medications: None Physical Exam Vital Signs: Vitals: 06/10/24 1207 BP: (!) 133/95 Pulse: 102 Resp: 20 Temp: 36.3 C (97.4 F) SpO2: 96% General: Normotensive, in no acute distress. Cardiac Examination: Heart: RRR, no murmurs, no rubs, no gallops. Carotids: No bruit Peripheral Vascular System: Peripheral pulses intact Neurological Examination: Higher Mental Function: Patient awake, alert, oriented x4. Intact attention span and concentration, intact short-term memory. Ophthalmological Examination: Clear conjunctiva, no cataracts. Cranial Nerve Examination: II: Normal tracking, no evidence of hemianopia or other visual field defect. III, IV, & : EOM intact, no ptosis, no nystagmus seen. Pupils are equal and reactive to light. V: Facial sensation is intact. VII: no facial asymmetry, facial movement intact. VIII: hearing is normal. IX-X: Palate elevates in the midline. XI: Normal trapezius strength and/or movement. XII: Tongue movement is normal, position is midline and no fasciculations are observed. Tongue strength intact. Motor: Patient moving bilateral upper and lower limbs equally antigravity. No significant muscle atrophy, no tremors, no fasciculations. Deep Tendon Reflexes: Right, Left: Biceps 2, 2 Brachioradialis 2, 2 Patellae 2, 2 Plantar response was flexor bilaterally. No clonus or other pathological reflexes elicited. Sensory examination: Intact to light touch throughout. Cerebellar: Finger-nose testing normal without dysmetria Gait and station: Deferred. Pertinent Labs: Results from last 7 days Lab Units 06/10/2470406/09/2454306/08/2440506/07/24 0542 WBC X10E9/L 6.7 6.0 -- 6.4 HEMOGLOBIN g/dL 9.9* 12.6* 11.3* 10.9* HEMATOCRIT % 31.8* 40.9 -- 35.2* PLATELETS X10E9/L 243 271 277 259 Results from last 7 days Lab Units 06/08/24101906/08/2440506/07/24212906/07/24 0542 APTT sec 38* 80* 52* 37 INR -- 1.2* -- 1.3* Results from last 7 days Lab Units 06/10/2470406/09/24195106/09/2454306/08/24210906/08/2440506/07/24212906/07/24 0542 SODIUM mmol/L 140 -- 144 -- 146 -- 144 POTASSIUM mmol/L 3.4* 3.8 3.5 < > 3.4* 3.2* 3.3* CHLORIDE mmol/L 103 -- 102 -- 107 -- 106 CO2 mmol/L 28 -- 30 -- 26 -- 27 BUN mg/dL 22 -- 18 -- 24 -- 30* CREATININE mg/dL 1.28 -- 1.32* -- 1.58* -- 1.44* CALCIUM mg/dL 8.3* -- 8.7 -- 8.3* -- 8.6 MAGNESIUM mg/dL -- -- -- -- 2.5 2.7* 1.5* < > = values in this interval not displayed. Results from last 7 days Lab Units 06/10/2470406/08/246 06/07/24 0542 ALBUMIN g/dL 3.5 2.9* 2.9* TOTAL PROTEIN g/dL 5.8* 5.7* 5.4* ALT U/L 19 20 21 AST U/L 25 31 29 ALK PHOS U/L -- -- 60 AMMONIA umol/L -- -- 32 Results from last 7 days Lab Units 06/10/24 0705 06/09/24 0544 06/08/24 0406 GLUCOSE mg/dL 103* 99 117* Lab Results Component Value Date HGBA1C 5.9 (H) 06/08/2024 Results from last 7 days Lab Units 06/07/24 0542 VITAMIN B 12 pg/mL >1,500* FOLATE ng/mL 22.7 FERRITIN ng/mL 41 IRON ug/dL 16* TIBC-CALC ONLY DO NOT ORDER ug/dL 336 IRON SATURATION % SATURATION 5* Results from last 7 days Lab Units 06/08/24 0406 CHOLESTEROL mg/dL 135* HDL mg/dL 25* LDL (CALC) mg/dL 96 TRIGLYCERIDES mg/dL 70 Ammonia: 32 Imaging: CT brain without contrast (06/05/2024): remote infarcts in the right frontal and right occipital lobe. No acute findings. MRI brain without contrast (06/06/2024): No acute findings, however very limited study due to poor quality. Other Testing: Routine EEG: Severe background slowing. . Assessment: Johnathan Rodney is a 68 y.o. year old male who is admitted due to altered mental status and hallucinations. Patient has history of paroxysmal atrial fibrillation on Eliquis, primary hypertension, chronic HFrEF (EF of 40% in 04/2023), alcohol use disorder, hyperlipidemia, and medication noncompliance. CT head at outside hospital showed remote infarcts in the right frontal and right occipital lobe, but no acute intracranial findings. MRI brain from outside hospital showed no acute intracranial findings. Initial examination, patient was A&O x3 oriented to person, place, time but disoriented to situation as well as has some lapses and retrograde memory, patient was also somnolent and slowly responsive. Impression: Altered mental status highly likely metabolic in the setting of underlying RADHA, concern for cholecystitis. 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 Plan: Patient is significantly improving, suspicion for meningitis is extremely low. Will recommend full anticoagulation due to AFib for stroke prevention, we are okay with switching the patient to Eliquis 5 mg p.o. b.i.d.. Would recommend thiamine replacement 100 mg p.o. once daily for 30 days given his history of alcohol use. PT OT, delinquency prevention social worker. Delirium precautions. No further inpatient neurology workup needed at this time, our service will sign off Marco A Reddy MD PGY-4, Neurology Resident [facility] 06/10/24 3:05 PM Staffed with: Dr. Bethea This patient is being followed by the Neurology Resident service. Contact attending directly during these hours: Monday to 7:30-8:30 A.M. to Monday 12-1:00 p.m. Primary Neurology service: [phone] Consult neurology service: [phone] Resident Stroke Service: [phone] If the patient belongs to the Stroke JAK service please contact the Stroke JAK directly. Cosigned by Guilherme Bethea MD at 06/10/2024 3:34 PM EST Associated attestation - Guilherme Bethea MD - 06/10/2024 3:34 PM EST Attending Attestation: I saw the patient. I participated and was physically present during the critical/leonardo portions of the service. I was directly involved in the management and treatment plan of the patient. I reviewed the resident's note. Additional Notes/Findings: Exam today with LLQ VF defect; otherwise agree with resident note. Guilherme Bethea MD Educational Consultant of Neurology [facility] 06/10/24 Images from the original note were not included. [facility] 06/10/2024 Patient Name: Johnathan Rodney : 1955 Code status: Problem List: Principal Problem: Acute encephalopathy Consulting Providers Provider Service Specialty Nicolas Wells MD Surgery General Surgery MD [facility] U[facility] Catrina Marie MD -- Neurology Richardson Brandt DO -- Gastroenterology Chief complaint- altered mental status Assessment and Plan: Acute on chronic diastolic heart failure, volume overload- Moderate bilateral pleural effusion, body wall edema, presacral edema trace ascites noted on CT abdomen and pelvis on 06/07/2024 S/p IV Lasix. Continue to monitor Daily weights, intake and output. Acute abdominal pain-with elevated LFTs, hyperbilirubinemia. Currently abdominal pain is resolved. Day 3/5 of Rocephin and Flagyl. GI and General surgery signed off. No acute intervention planned MRCP showing significant edema of the mesenteric fat planes as well as significant pleural effusion. Ductal dilatation, sludge in the gallbladder. 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 MRI brain currently negative for any acute infarcts. Maintain delirium precautions. No indication for LP. EEG showing severe background slowing S/p fall during hospital stay while the pt was on heparin drip, paroxysmal AFib. At home he was on Eliquis.- CT head showing bilateral subdural fluid collection/hygromas without significant mass effect. Heparin drip discontinued. Hold all anticoagulation. Images reviewed by Neurosurgery. No surgical intervention planned. Agreeable for chemical prophylaxis. Acute urinary retention, right-sided hydronephrosis-s/p Arenas catheter placement. Continue Flomax. Reconsult Urology on the day of discharge for plans for Arenas catheter. Alcohol use disorder- on CIWA protocol. Thiamine and folic acid. Marijuana and tobacco use disorder Paroxysmal atrial fibrillation- Started on Coreg for rate control. Was on Eliquis for anticoagulation. Echo from outlying facility showed biatrial enlargement, normal systolic function EF 50%, concentric hypertrophy, elevated RVSP 51 mmHg, Primary hypertension- he became hypotensive after resuming his BP medications and IV diuresis. Needed albumin and midodrine to keep his blood pressure in acceptable range. Continue to monitor blood pressure and readjust medication accordingly. Discharge Planning: Monitor blood pressure, readjust medications, final Neurology recommendations. PT OT recommendations DVT prophylaxis - started on Lovenox after Neurosurgery clearance. Resume Eliquis upon discharge SUBJECTIVE: Review of Systems - General ROS: negative for - chills or fever Respiratory ROS: no cough, shortness of breath, or wheezing Cardiovascular ROS: no chest pain or dyspnea on exertion OBJECTIVE: Exam: BP (!) 133/95 Pulse 102 Temp 36.3 C (97.4 F) (Oral) Resp 20 Ht 182.9 cm (6') Wt 62.9 kg (138 lb 10.7 oz) SpO2 96% BMI 18.81 kg/m Intake/Output Summary (Last 24 hours) at 06/10/2024 1429 Last data filed at 06/09/2024 1830 Gross per 24 hour Intake 367.81 ml Output 300 ml Net 67.81 ml Wt Readings from Last 3 Encounters: 06/10/24 62.9 kg (138 lb 10.7 oz) 02/23/22 74.8 kg (165 lb) 01/20/21 80.6 kg (177 lb 9.6 oz) Physical Exam Constitutional: General: He is not in acute distress. Appearance: Normal appearance. He is well-developed. He is not diaphoretic. HENT: Head: Normocephalic and atraumatic. Mouth/Throat: Pharynx: No oropharyngeal exudate. Eyes: Pupils: Pupils are equal, round, and reactive to light. Neck: Thyroid: No thyromegaly. Cardiovascular: Rate and Rhythm: Normal rate and regular rhythm. Heart sounds: No murmur heard. Pulmonary: Effort: Pulmonary effort is normal. No respiratory distress. Breath sounds: Normal breath sounds. No wheezing or rales. Abdominal: General: Bowel sounds are normal. There is no distension. Palpations: Abdomen is soft. Tenderness: There is no abdominal tenderness. Musculoskeletal: General: No tenderness. Normal range of motion. Cervical back: Normal range of motion and neck supple. Skin: General: Skin is warm and dry. Findings: No erythema. Neurological: Mental Status: He is alert. He is disoriented. Cranial Nerves: No cranial nerve deficit. Medications: Scheduled Medications: atorvastatin, 40 mg, oral, Nightly carvediloL, 12.5 mg, oral, BID cefTRIAXone (ROCEPHIN) IV, 1,000 mg, intravenous, Q24H enoxaparin (LOVENOX) injection, 40 mg, subcutaneous, Daily folic acid, 1 mg, oral, Daily furosemide, 40 mg, intravenous, Q12H lidocaine, 1 Application, urethral, Once lidocaine, 1 Application, urethral, Once melatonin, 5 mg, oral, Nightly metroNIDAZOLE, 500 mg, intravenous, Q12H midodrine, 5 mg, oral, TID QUEtiapine, 25 mg, oral, Nightly sodium chloride, 3 mL, intravenous, Q12H TONY tamsulosin, 0.4 mg, oral, Nightly thiamine HCl, 100 mg, oral, Daily Infusions: dextrose 5 % in water, 100 mL/hr sodium chloride 0.9 %, 20 mL/hr PRN medications acetaminophen, 650 mg, Q4H PRN dextrose, 15 g, PRN dextrose 5 % in water, 100 mL/hr, Continuous PRN dextrose 50 % in water (D50W), 25 mL, PRN glucagon (human recombinant), 1 mg, PRN LORazepam, 1 mg, Q4H PRN Or LORazepam, 1 mg, Q4H PRN Or LORazepam, 1 mg, Q4H PRN LORazepam, 2 mg, Q4H PRN Or LORazepam, 2 mg, Q4H PRN Or LORazepam, 2 mg, Q4H PRN LORazepam, 3 mg, Q4H PRN Or LORazepam, 3 mg, Q4H PRN Or LORazepam, 3 mg, Q4H PRN magnesium sulfate, 2,000 mg, PRN magnesium sulfate, 4,000 mg, PRN metoprolol (LOPRESSOR) IV, 5 mg, Q6H PRN tnsargdd-zvji-DD-calcium &mins, 1 tablet, Daily PRN potassium chloride, 20-40 mEq, PRN Or potassium chloride, 20-40 mEq, PRN Or potassium chloride IV (Adult), 10 mEq, PRN sodium chloride, 3 mL, PRN sodium chloride, 25 mL, PRN sodium chloride 0.9 %, 20 mL/hr, Continuous PRN Recent Results (from the past 48 hours) Potassium Collection Time: 06/08/24 9:10 PM Result Value Ref Range Potassium, Bld 3.3 (L) 3.5 - 5.0 mmol/L CBC auto differential Collection Time: 06/09/24 5:44 AM Result Value Ref Range White Blood Cells 6.0 4.0 - 11.0 X10E9/L RBC count 5.59 4.10 - 5.70 X10E12/L Hemoglobin 12.6 (L) 13.0 - 17.0 g/dL Hematocrit 40.9 39 - 49 % MCV 73 (L) 80 - 100 fL MCH 22.5 (L) 27 - 34 pg MCHC 30.7 (L) 32 - 36 g/dL RDW 24.1 (H) 11.5 - 15.0 % Platelets 271 150 - 450 X10E9/L MPV 8.8 7 - 12 fL % neutrophils 83.1 % % lymphocytes 8.4 % % monocytes 6.3 % % eosinophils 1.3 % % Basophils 0.9 % Neutrophils Absolute (A) 5.0 1.5 - 6.6 X10E9/L Lymphocytes Absolute 0.5 (L) 1.0 - 3.5 X10E9/L Monocytes Absolute 0.4 0 - 0.9 X10E9/L Eosinophils Absolute 0.1 0.0 - 0.4 X10E9/L Basophils Absolute 0.1 0.0 - 0.2 X10E9/L Anisocytosis 2+ (A) NONE^NONE Hypochromia 2+ (A) NONE^NONE Fragment 1+ (A) NONE^NONE Ovalocytes 2+ (A) NONE^NONE Basic Metabolic Panel Collection Time: 06/09/24 5:44 AM Result Value Ref Range Sodium 144 134 - 146 mmol/L Potassium, Bld 3.5 3.5 - 5.0 mmol/L Chloride 102 98 - 109 mmol/L CO2 30 22 - 32 mmol/L Anion gap 12 5 - 15 mmol/L BUN 18 5 - 27 mg/dL Creatinine 1.32 (H) 0.60 - 1.30 mg/dL Glucose 99 65 - 99 mg/dL Calcium 8.7 8.5 - 10.5 mg/dL eGFR (CKD-EPI)non-race dependent 58 (L) >59 ml/min/1.73sq.m Potassium Collection Time: 06/09/24 7:52 PM Result Value Ref Range Potassium, Bld 3.8 3.5 - 5.0 mmol/L CBC auto differential Collection Time: 06/10/24 7:05 AM Result Value Ref Range White Blood Cells 6.7 4.0 - 11.0 X10E9/L RBC count 4.37 4.10 - 5.70 X10E12/L Hemoglobin 9.9 (L) 13.0 - 17.0 g/dL Hematocrit 31.8 (L) 39 - 49 % MCV 73 (L) 80 - 100 fL MCH 22.6 (L) 27 - 34 pg MCHC 31.1 (L) 32 - 36 g/dL RDW 23.3 (H) 11.5 - 15.0 % Platelets 243 150 - 450 X10E9/L MPV 8.7 7 - 12 fL Seg neutrophil 80.0 % Lymphocyte 9.0 % Monocytes 8.0 % Eosinophil 3.0 % Neutrophils Absolute (M) 5.4 1.5 - 6.6 X10E9/L Lymphocytes Absolute 0.6 (L) 1.0 - 3.5 X10E9/L Monocytes Absolute 0.5 0 - 0.9 X10E9/L Eosinophils Absolute 0.2 0.0 - 0.4 X10E9/L Anisocytosis 2+ (A) NONE^NONE Hypochromia 1+ (A) NONE^NONE Saleem Cells 1+ (A) NONE^NONE Fragment 1+ (A) NONE^NONE Ovalocytes 2+ (A) NONE^NONE Acanthocytes 2+ (A) NONE^NONE Basic Metabolic Panel Collection Time: 06/10/24 7:05 AM Result Value Ref Range Sodium 140 134 - 146 mmol/L Potassium, Bld 3.4 (L) 3.5 - 5.0 mmol/L Chloride 103 98 - 109 mmol/L CO2 28 22 - 32 mmol/L Anion gap 9 5 - 15 mmol/L BUN 22 5 - 27 mg/dL Creatinine 1.28 0.60 - 1.30 mg/dL Glucose 103 (H) 65 - 99 mg/dL Calcium 8.3 (L) 8.5 - 10.5 mg/dL eGFR (CKD-EPI)non-race dependent 61 >59 ml/min/1.73sq.m Liver panel Collection Time: 06/10/24 7:05 AM Result Value Ref Range Alkaline phosphatase 64 39 - 130 U/L AST 25 0 - 41 U/L ALT 19 0 - 40 U/L Total Bilirubin 0.8 0.3 - 1.2 mg/dL Bilirubin, direct 0.4 0.0 - 0.4 mg/dL Albumin 3.5 3.2 - 5.3 g/dL Total Protein 5.8 (L) 6.0 - 8.0 g/dL Lab Review Results from last 7 days Lab Units 06/10/24 0706/09/2454306/08/2440506/07/24 0542 WBC X10E9/L 6.7 6.0 -- 6.4 HEMOGLOBIN g/dL 9.9* 12.6* 11.3* 10.9* HEMATOCRIT % 31.8* 40.9 -- 35.2* PLATELETS X10E9/L 243 271 277 259 MCV fL 73* 73* -- 73* Results from last 7 days Lab Units 06/10/2470406/09/24195106/09/2454306/08/24210906/08/2440506/07/24212906/07/24 0542 SODIUM mmol/L 140 -- 144 -- 146 -- 144 POTASSIUM mmol/L 3.4* 3.8 3.5 3.3* 3.4* < > 3.3* CHLORIDE mmol/L 103 -- 102 -- 107 -- 106 CO2 mmol/L 28 -- 30 -- 26 -- 27 BUN mg/dL 22 -- 18 -- 24 -- 30* CREATININE mg/dL 1.28 -- 1.32* -- 1.58* -- 1.44* CALCIUM mg/dL 8.3* -- 8.7 -- 8.3* -- 8.6 ANION GAP mmol/L 9 -- 12 -- 13 -- 11 < > = values in this interval not displayed. Results from last 7 days Lab Units 06/10/24 0706/09/2454306/08/2440506/07/24194506/07/24 0542 BEDSIDE GLUCOSE mg/dL -- -- -- 86 -- GLUCOSE mg/dL 103* 99 117* -- 91 Results from last 7 days Lab Units 06/10/24 0706/09/2454306/08/2440506/07/24212906/07/24 0542 MAGNESIUM mg/dL -- -- 2.5 2.7* 1.5* CALCIUM mg/dL 8.3* 8.7 8.3* -- 8.6 Results from last 7 days Lab Units 06/07/24 0542 IRON ug/dL 16* TIBC-CALC ONLY DO NOT ORDER ug/dL 336 FERRITIN ng/mL 41 Results from last 7 days Lab Units 06/10/24 0705 06/08/24 0406 06/07/24 0542 ALK PHOS U/L -- -- 60 AST U/L 25 31 29 ALT U/L 19 20 21 ALBUMIN g/dL 3.5 2.9* 2.9* Results from last 7 days Lab Units 06/07/24 0542 AMMONIA umol/L 32 Results from last 7 days Lab Units 06/08/24 0406 06/07/24 0542 PROTIME sec 13.9* 15.5* INR 1.2* 1.3* Microbiology Results Procedure Component Value Units Date/Time Urine culture [[id number]] Collected: 06/07/24 0751 Specimen: Urine Updated: 06/08/24812 Culture NO GROWTH AT <1000 CFU/mL MRA neck with and without contrast Result Date: 06/10/2024 EXAM: MR MRA NECK W WO CONT INDICATION: Stroke, follow up COMPARISONS: None TECHNIQUE/PROTOCOL: Dynamic contrast enhanced neck MRA performed. 3D reconstructions were performed to evaluate vascular anatomy. All internal carotid measurements were made according to the NASCET criteria. CONTRAST: 12.5mL ProHance IV. FINDINGS: Normal triple vessel takeoff of the aorta. No significant narrowing of the origins of the great vessels. Common carotids are patent bilaterally. Moderate irregularity of the bilateral carotid bulbs contributes to approximately 25% stenosis of the proximal bilateral ICAs. The remainder of the ICAs are patent bilaterally. Left side dominant vertebral artery. Diminutive right vertebral artery. No high-grade stenosis. No significant soft tissue abnormalities of the neck IMPRESSION: Mild atherosclerosis of the bilateral carotid bulbs 2 views to no more than mild stenosis of the origins of the ICAs. Otherwise, no high-grade stenosis, occlusion, or evidence of acute vascular injury. Finalized by Zac Lucia on 06/10/2024 10:36 AM MRA head without contrast Result Date: 06/10/2024 EXAM: MR MRA HEAD WO CONT INDICATION: Stroke suspected, sickle cell disease (Ped 0-17y) COMPARISONS: None TECHNIQUE/PROTOCOL: 3D time of flight non contrast brain MRA performed. 3D reconstructions were performed to evaluate vascular anatomy. FINDINGS: VASCULATURE FINDINGS: Intracranial Intracranial ICAs: Mild atherosclerosis of the bilateral carotids. No significant stenosis. Mild asymmetric caliber of the carotids in which the right is mildly larger than the left. MCAs: Mild stenosis proximal to mid right M1 segment. Symmetric distal arborization of the bilateral MCA distributions ACAs: Normal bilaterally. AComm: Normal P-Comms: Visualized bilaterally. Vertebral arteries: Left side dominant. Diminutive right vertebral artery. No appreciable flow related enhancement within the proximal V4 segment possibly due to flow dynamics and gieu-ev-mfnvgs technique as there appears to be normal contrast enhancement within the V4 segment on the MRA of the neck Basilar artery: Normal. senior adults director: The left DRYWALL TAPER is normal. Diminished flow related enhancement within the distal right DRYWALL TAPER distribution likely sequelae of prior right DRYWALL TAPER infarct. IMPRESSION: 1. Diminished flow related signal within the right DRYWALL TAPER is likely chronic and related to known right chronic occipital infarct/encephalomalacia. 2. Diminished flow related enhancement within the proximal right vertebral artery is likely due to flow dynamics and vgac-qf-jvrxuy technique is there is normal-appearing enhancement on the postcontrast MRA of the neck. 3. Otherwise, no high-grade stenosis, occlusion, or evidence of sizable aneurysm. Finalized by Zac Lucia on 06/10/2024 9:32 AM MR brain with and without contrast Result Date: 06/10/2024 EXAM:MR BRAIN W WO CONT INDICATION: Mental status change, unknown cause COMPARISON: None TECHNIQUE: Multiplanar multisequence pre and post contrast MR sequences through the head/brain. 12.5 mL ProHance BRAIN FINDINGS: Motion degraded study, most notably postcontrast T1 sequences Brain Parenchyma: Questionable punctate focus of diffusion hyperintense signal within the ventral dexter best appreciated on 8:37, this is favored to be artifactual as a correlate is not identified on additional sequences. No acute hemorrhage, cerebral edema, or acute infarction. No mass, mass effect, or midline shift. Encephalomalacia right medial occipital lobe. Small volume encephalomalacia right medial perirolandic region. Periventricular subcortical T2/FLAIR signal hyperintensities likely related to chronic microangiopathic change. Ventricles and Sulci: Generalized parenchymal atrophy. Extra-Axial Spaces: No extra-axial fluid collection. Intracranial Flow-Voids: Arterial and venous sinus flow voids appear normal. Orbits: Normal Paranasal Sinuses: Mild mucosal thickening Mastoid Air Cells: Clear Cranium: Normal Extracranial Soft Tissues: Normal IMPRESSION: No definite evidence of acute or subacute intracranial abnormalities within the resolution of the motion degraded study. There is a questionable punctate focus of diffusion signal within the ventral dexter which is favored to be artifactual as a correlate is not identified on additional sequences. 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 Correlate with symptoms. Sequelae of prior right DRYWALL TAPER territory ischemia Finalized by Zac Lucia on 06/10/2024 7:[address] brain without contrast Result Date: 06/08/[address] of the brain dated dated 06/08/2024 at 7:56 PM INDICATION: Bilateral subdural fluid collections PROCEDURE: Automatic radiation exposure lowering techniques were utilized. All CT scans at this facility use dose modulation, iterative reconstruction, and/or weight based dosing when appropriate to reduce radiation dose to as low as reasonably achievable.. A nonenhanced CT of the brain and sagittal and coronal reformats obtained. FINDINGS: Comparison is to 2024 and 06/07/2024. Redemonstration of calcifications in the basal ganglia, and encephalomalacia in the right frontal and occipital lobes not significantly changed. No intracranial bleed. No mass, mass effect, or midline shift shift. No significant change from the comparison examination. Tiny subdural hygromas of unknown clinical significance. IMPRESSION: 1. No intracranial bleed. 2. No significant change from the comparison examination. Finalized by Uriel Smith MD on 06/08/2024 8:[address] brain without contrast Result Date: 06/08/2024 CT OF THE HEAD WITHOUT CONTRAST INDICATION: Pain. Head trauma, moderate-severe COMPARISON: 06/07/2024 TECHNIQUE: CT was obtained of the head without contrast. FINDINGS: INTRACRANIAL: Stable configuration of the ventricles and sulci with mild to moderate volume loss. No mass effect or midline shift. Right occipital encephalomalacia/gliosis. Basal ganglial mineralization. Maintained lanier-white differentiation. Potential small lentiform fluid collections over the bifrontal regions somewhat less conspicuous than on prior; consider MRI follow-up. No convincing intracranial hemorrhage.. SOFT TISSUES and ORBITS: Orbits are unremarkable. Soft tissues within normal limits. CALVARIUM: No depressed calvarial fracture or suspicious lesion. SINUSES AND MASTOID AIR CELLS: Well aerated. IMPRESSION: No significant change from 06/07/2024.. See above. Consider MRI follow-up . All CT scans at this facility use dose modulation, iterative reconstruction, and/or weight based dosing when appropriate to reduce radiation dose to as low as reasonably achievable. Finalized by Zac Lewis MD on 06/08/2024 11:[address] brain without contrast Result Date: 06/07/2024 CT HEAD WITHOUT IV CONTRAST CLINICAL STATEMENT:Patient demonstrates some possible altered consciousness. Head trauma, minor (Age >= 65y); Fall in hospital, on heparin infusion Comparison study: 06/05/2024 TECHNIQUE: Axial views were obtained at 2.5 mm interval through the head without IV contrast. Automatic dose exposure reduction technique utilized. FINDINGS: The midline structures are not deviated. The ventricular system is prominent.. The lanier and white matter show periventricular white matter disease of a chronic nature with basal ganglia calcification noted. There is gliosis in the right posterior temporal region consistent with an old infarct. This extends to the occipital region. There are extra-axial fluid collections overlying the cerebral hemispheres that was not seen on the study from 2 days previous. These measure approximately 4 to 5 mm in maximum width without significant mass effect. The posterior fossa is unremarkable. No features of raised intracranial pressure.No acute intracranial bleed. The IACs are unremarkable. The cerebellopontine angles are unremarkable. The temporomandibular joints show no abnormality. The osseous structures in the skull base and in the calvarium show no definite abnormality. The orbits are normal. The paranasal sinuses are clear. The mastoid air cells are clear. IMPRESSION: Chronic small vessel white matter disease. 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 Bilateral subdural fluid collections/hygromas without significant mass effect. These could be part of idiopathic intracranial hypotension. All CT scans at this facility use dose modulation, iterative reconstruction, and/or weight based dosing when appropriate to reduce radiation dose to as low as reasonably achievable. Finalized by Gab Clay MD on 06/07/2024 10:01 PM MRCP with MRI abdomen without contrast Result Date: 06/07/2024 History: Recent with history of jaundice. Exam/Technique: Multiplanar, multisequence MR imaging is obtained of the MRCP and MRI abdomen without intravenous contrast. Routine multiplanar multisequence MR imaging of the abdomen was performed prior to and following uneventful administration of intravenous gadolinium contrast. M.R.C.P. was performed with 3-D volume rendered reformatted and maximum intesntiy projection rotational images for the evaluation of the pancreatic and biliary ductal system at the MR console. Comparison: CT abdomen pelvis dated 06/07/2024. Ultrasound abdomen dated 06/06/2024. Findings: Lack of IV contrast compromises detail. Motion artifact compromises detail. No evidence of fatty infiltration of the liver. No focal liver lesions. CBD not dilated and measures Bibasal pleural effusions. Body wall edema. Mesenteric edema noted. Generalized bone marrow signal is appropriate with degenerative changes. The gallbladder is distended and demonstrates a fluid sludge level. There is no clear evidence of biliary dilatation. There is no evidence of dilatation of the pancreatic duct. No obvious pancreatic mass. Cyst formation in the right kidneys. IMPRESSION: The examination is limited due to motion artifact and lack of contrast. There is significant edema of the mesenteric fat planes as well as significant pleural effusions. There is a no biliary duct dilatation but there is sludge in the gallbladder. No biliary duct dilatation. Finalized by Gab Clay MD on 06/07/2024 8:32 PM This note was created with the assistance of a speech-recognition program. Although the intention is to generate a document that actually reflects the content of the visit, no guarantees can be provided that every mistake has been identified and corrected by editing. Electronically signed by: ROSELINE REYEZ MD, KRISTAL, FACP 06/10/2024 2:29 PM Preferred contact method: #1. Epic chat #2. [facility] team pager Available from 7 am to 7 pm Images from the original note were not included. [facility] [address] [place] [address], [address] [place] [address] * NEUROSURGERY DAILY PROGRESS NOTE DATE:06/09/2024 PATIENT'S NAME: Johnathan Rodney PATIENT'S PATIENT'S : 1955 PROCEDURE None EVENTS LAST 24 HOURS / SUBJECTIVE No acute events overnight. Reports wanting to go home. Was able to state the year, wrong month. Knew he was in the hospital. Very irritated when asked ROS questions. PHYSICAL EXAM Temp: [36.3 C (97.4 F)-36.7 C (98.1 F)] 36.7 C (98 F) Pulse: [75-144] 88 Resp: [16-20] 19 BP: (72-138)/(46-100) 90/64 SpO2: [94 %-99 %] 97 % O2 Device: None (Room air) O2 Flow Rate (L/min): [0 L/min] 0 L/min The patient is in no acute distress. The patient is alert and oriented to person, place, time. The patient exhibits unlabored breathing and normal respirations . The patient's abdomen is distended and non-tender. Sclera white , atraumatic Oral mucous membranes pink/moist; no drainage from BL ears or nares. PERRL, EOMI, face symmetric, tongue midline, hears to finger rub bilaterally, symmetric shoulder shrug, facial sensation intact to light touch (V1, V2, V3). Motor examination is notable for 5/5 strength in all extremities throughout Sensory examination is intact to light touch and intact to pinprick. Proprioception is intact No pronator drift, no facial asymmetry. LABORATORY DATA Results from last 7 days Lab Units 06/09/24 0544 06/08/24 2110 06/08/24 1020 06/08/24 0406 06/07/24 2130 06/07/24 1946 06/07/24 0542 SODIUM mmol/L 144 -- -- 146 -- -- 144 POTASSIUM mmol/L 3.5 3.3* -- 3.4* 3.2* -- 3.3* CREATININE mg/dL 1.32* -- -- 1.58* -- -- 1.44* BEDSIDE GLUCOSE mg/dL -- -- -- -- -- 86 -- GLUCOSE mg/dL 99 -- -- 117* -- -- 91 CALCIUM mg/dL 8.7 -- -- 8.3* -- -- 8.6 APTT sec -- -- 38* 80* 52* -- 37 INR -- -- -- 1.2* -- -- 1.3* WBC X10E9/L 6.0 -- -- -- -- -- 6.4 HEMATOCRIT % 40.9 -- -- -- -- -- 35.2* HEMOGLOBIN g/dL 12.6* -- -- 11.3* -- -- 10.9* PLATELETS X10E9/L 271 -- -- 277 -- -- [address] of the brain dated dated 06/08/2024 at 7:56 PM INDICATION: Bilateral subdural fluid collections PROCEDURE: Automatic radiation exposure lowering techniques were utilized. All CT scans at this facility use dose modulation, iterative reconstruction, and/or weight based dosing when appropriate to reduce radiation dose to as low as reasonably achievable.. A nonenhanced CT of the brain and sagittal and coronal reformats obtained. FINDINGS: Comparison is to 2024 and 06/07/2024. Redemonstration of calcifications in the basal ganglia, and encephalomalacia in the right frontal and occipital lobes not significantly changed. No intracranial bleed. No mass, mass effect, or midline shift shift. No significant change from the comparison examination. Tiny subdural hygromas of unknown clinical significance. IMPRESSION: 1. No intracranial bleed. 2. No significant change from the comparison examination. ASSESSMENT Small subdural fluid collections s/p fall on heparin drip, not visible on repeat CT Hx of Afib Altered mental status Right frontal and occipital infarcts PLAN - Repeat imaging independently reviewed by Dr. Luong. No neurosurgical intervention warranted. - repeat CT brain - Serial neuro checks - Maintain fall and delirium precautions - Recommend SBP goal < 140 - Recommend continued treatment of underlying metabolic conditions contributing to AMS by primary team and additional consultants - OK for chemical DVT prophylaxis - Neurosurgery will sign off. Please reach out with any additional questions. NABILA Julio- [facility] Please contact via [employer] first then can utilize Patient touch/VoceraEdge if needed 06/09/24 5:34 PM To find out which JAK is on for the day please go to [employer] and use log in [employer] and search for [facility] (JAK and Phone Number is listed) NIRMALA Beebe 06/09/24 8490 Images from the original note were not included. [facility] PROGRESS NOTE 06/09/2024 Patient Name: Johnathan Rodney : 1955 Code status: Problem List: Principal Problem: Acute encephalopathy Consulting Providers Provider Service Specialty MD [facility] General Surgery MD [facility] Catrina Marie MD -- Neurology Richardson Brandt DO -- Gastroenterology Chief complaint- altered mental status Assessment and Plan: Acute on chronic systolic heart failure with EF 40% in 04/2023- continue IV Lasix. Daily weights, intake and output. Acute abdominal pain-suspected colitis versus cholecystitis. On Rocephin and Flagyl. GI and General surgery signed off. No acute intervention planned Hyperbilirubinemia- trending down, LFTs within normal limits now. hepatitis panel within normal limits. MRCP showing significant edema of the mesenteric fat planes as well as significant pleural effusion. 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 MRI brain currently negative for any acute infarcts.-neurology consulted. Follow up EEG. Continue Lipitor. Maintain delirium precautions S/p fall yesterday- CT head showing bilateral subdural fluid collection/hygromas without significant mass effect. Continue neuro checks. Heparin drip discontinued. Hold all anticoagulation. Neurology planning for repeat MRI brain Acute urinary retention, right-sided hydronephrosis-s/p Arenas catheter placement. Continue Flomax. Reconsult Urology on the day of discharge for plans for Arenas catheter. Alcohol use disorder- on CIWA protocol. Thiamine and folic acid. Marijuana and tobacco use disorder Paroxysmal atrial fibrillation- Started on Coreg for rate control. Was on Eliquis for anticoagulation. Echo from outlying facility showed biatrial enlargement, normal systolic function EF 50%, concentric hypertrophy, elevated RVSP 51 mmHg, Primary hypertension- resumed Norvasc. Noted patient was on hydralazine at home but given history of paroxysmal AFib, and with elevated heart rate started on Coreg Discharge Planning: MRI brain, PT OT recommendations DVT prophylaxis EPC cuff SUBJECTIVE: Patient was able to tell the president, told that he was in hospital could not get the month and year right. He wants to go home, reports that he is feeling better than when he came in. Not at all happy being in the hospital Review of Systems - General ROS: negative for - chills or fever Respiratory ROS: no cough, shortness of breath, or wheezing Cardiovascular ROS: no chest pain or dyspnea on exertion OBJECTIVE: Exam: BP 117/90 Pulse 89 Temp 36.6 C (97.8 F) (Oral) Resp 20 Ht 182.9 cm (6') Wt 62.2 kg (137 lb 2 oz) SpO2 99% BMI 18.60 kg/m Intake/Output Summary (Last 24 hours) at 06/09/2024 1115 Last data filed at 06/09/2024 0732 Gross per 24 hour Intake 633.29 ml Output 5175 ml Net -4541.71 ml Wt Readings from Last 3 Encounters: 06/09/24 62.2 kg (137 lb 2 oz) 02/23/22 74.8 kg (165 lb) 01/20/21 80.6 kg (177 lb 9.6 oz) Physical Exam Constitutional: General: He is not in acute distress. Appearance: Normal appearance. He is well-developed. He is not diaphoretic. HENT: Head: Normocephalic and atraumatic. Mouth/Throat: Pharynx: No oropharyngeal exudate. Eyes: Pupils: Pupils are equal, round, and reactive to light. Neck: Thyroid: No thyromegaly. Cardiovascular: Rate and Rhythm: Normal rate and regular rhythm. Heart sounds: No murmur heard. Pulmonary: Effort: Pulmonary effort is normal. No respiratory distress. Breath sounds: Normal breath sounds. No wheezing or rales. Abdominal: General: Bowel sounds are normal. There is no distension. Palpations: Abdomen is soft. Tenderness: There is no abdominal tenderness. Musculoskeletal: General: No tenderness. Normal range of motion. Cervical back: Normal range of motion and neck supple. Skin: General: Skin is warm and dry. Findings: No erythema. Neurological: Mental Status: He is alert. He is disoriented. Cranial Nerves: No cranial nerve deficit. Medications: Scheduled Medications: amLODIPine, 10 mg, oral, Daily atorvastatin, 40 mg, oral, Nightly carvediloL, 12.5 mg, oral, BID cefTRIAXone (ROCEPHIN) IV, 1,000 mg, intravenous, Q24H folic acid, 1 mg, oral, Daily furosemide, 40 mg, intravenous, Q12H lactulose, 20 g, oral, BID melatonin, 5 mg, oral, Nightly metroNIDAZOLE, 500 mg, intravenous, Q12H QUEtiapine, 25 mg, oral, Nightly sodium chloride, 3 mL, intravenous, Q12H TONY tamsulosin, 0.4 mg, oral, Nightly thiamine HCl, 100 mg, oral, Daily Infusions: dextrose 5 % in water, 100 mL/hr sodium chloride 0.9 %, 20 mL/hr PRN medications acetaminophen, 650 mg, Q4H PRN dextrose, 15 g, PRN dextrose 5 % in water, 100 mL/hr, Continuous PRN dextrose 50 % in water (D50W), 25 mL, PRN glucagon (human recombinant), 1 mg, PRN LORazepam, 1 mg, Q4H PRN Or LORazepam, 1 mg, Q4H PRN Or LORazepam, 1 mg, Q4H PRN LORazepam, 2 mg, Q4H PRN Or LORazepam, 2 mg, Q4H PRN Or LORazepam, 2 mg, Q4H PRN LORazepam, 3 mg, Q4H PRN Or LORazepam, 3 mg, Q4H PRN Or LORazepam, 3 mg, Q4H PRN magnesium sulfate, 2,000 mg, PRN magnesium sulfate, 4,000 mg, PRN metoprolol (LOPRESSOR) IV, 5 mg, Q6H PRN odvnpzha-babd-LO-calcium &mins, 1 tablet, Daily PRN potassium chloride, 20-40 mEq, PRN Or potassium chloride, 20-40 mEq, PRN Or potassium chloride IV (Adult), 10 mEq, PRN sodium chloride, 3 mL, PRN sodium chloride, 25 mL, PRN sodium chloride 0.9 %, 20 mL/hr, Continuous PRN Recent Results (from the past 48 hours) Bedside Glucose *Place/Obtain serum glucose if >500(>600 MRH) per glucometer. Collection Time: 06/07/24 7:46 PM Result Value Ref Range Bedside glucose 86 65 - 99 mg/dL APTT Collection Time: 06/07/24 9:30 PM Result Value Ref Range aPTT 52 (H) 26 - 37 sec Magnesium Collection Time: 06/07/24 9:30 PM Result Value Ref Range Magnesium 2.7 (H) 1.8 - 2.6 mg/dL Potassium Collection Time: 06/07/24 9:30 PM Result Value Ref Range Potassium, Bld 3.2 (L) 3.5 - 5.0 mmol/L Anti XA unfractionated heparin Collection Time: 06/07/24 9:30 PM Result Value Ref Range Heparin anti-xa, unfractionated 0.14 (L) 0.30 - 0.70 IU/mL Hemoglobin Collection Time: 06/08/24 4:06 AM Result Value Ref Range Hemoglobin 11.3 (L) 13.0 - 17.0 g/dL Platelet count Collection Time: 06/08/24 4:06 AM Result Value Ref Range Platelets 277 150 - 450 X10E9/L MPV 8.7 7 - 12 fL Liver panel Collection Time: 06/08/24 4:06 AM Result Value Ref Range Alkaline phosphatase 65 39 - 130 U/L AST 31 0 - 41 U/L ALT 20 0 - 40 U/L Total Bilirubin 1.3 (H) 0.3 - 1.2 mg/dL Bilirubin, direct 0.5 (H) 0.0 - 0.4 mg/dL Albumin 2.9 (L) 3.2 - 5.3 g/dL Total Protein 5.7 (L) 6.0 - 8.0 g/dL Protime & INR Collection Time: 06/08/24 4:06 AM Result Value Ref Range Protime 13.9 (H) 9.8 - 13.2 sec Inr 1.2 (H) 0.8 - 1.1 APTT Collection Time: 06/08/24 4:06 AM Result Value Ref Range aPTT 80 (H) 26 - 37 sec Basic Metabolic Panel Collection Time: 06/08/24 4:06 AM Result Value Ref Range Sodium 146 134 - 146 mmol/L Potassium, Bld 3.4 (L) 3.5 - 5.0 mmol/L Chloride 107 98 - 109 mmol/L CO2 26 22 - 32 mmol/L Anion gap 13 5 - 15 mmol/L BUN 24 5 - 27 mg/dL Creatinine 1.58 (H) 0.60 - 1.30 mg/dL Glucose 117 (H) 65 - 99 mg/dL Calcium 8.3 (L) 8.5 - 10.5 mg/dL eGFR (CKD-EPI)non-race dependent 47 (L) >59 ml/min/1.73sq.m Magnesium Collection Time: 06/08/24 4:06 AM Result Value Ref Range Magnesium 2.5 1.8 - 2.6 mg/dL Hemoglobin A1c Collection Time: 06/08/24 4:06 AM Result Value Ref Range Hemoglobin A1C 5.9 (H) 4.4 - 5.6 % Average glucose 123 mg/dL Lipid profile Collection Time: 06/08/24 4:06 AM Result Value Ref Range Cholesterol 135 (L) 150 - 200 mg/dL Triglycerides 70 27 - 150 mg/dL HDL Cholesterol 25 (L) >39 mg/dL VLDL 14 0 - 30 mg/dL LDL (calc) 96 <130 mg/dL Cholesterol:HDL Ratio 5.4 (H) 1.0 - 5.0 APTT Collection Time: 06/08/24 10:20 AM Result Value Ref Range aPTT 38 (H) 26 - 37 sec Potassium Collection Time: 06/08/24 9:10 PM Result Value Ref Range Potassium, Bld 3.3 (L) 3.5 - 5.0 mmol/L CBC auto differential Collection Time: 06/09/24 5:44 AM Result Value Ref Range White Blood Cells 6.0 4.0 - 11.0 X10E9/L RBC count 5.59 4.10 - 5.70 X10E12/L Hemoglobin 12.6 (L) 13.0 - 17.0 g/dL Hematocrit 40.9 39 - 49 % MCV 73 (L) 80 - 100 fL MCH 22.5 (L) 27 - 34 pg MCHC 30.7 (L) 32 - 36 g/dL RDW 24.1 (H) 11.5 - 15.0 % Platelets 271 150 - 450 X10E9/L MPV 8.8 7 - 12 fL % neutrophils 83.1 % % lymphocytes 8.4 % % monocytes 6.3 % % eosinophils 1.3 % % Basophils 0.9 % Neutrophils Absolute (A) 5.0 1.5 - 6.6 X10E9/L Lymphocytes Absolute 0.5 (L) 1.0 - 3.5 X10E9/L Monocytes Absolute 0.4 0 - 0.9 X10E9/L Eosinophils Absolute 0.1 0.0 - 0.4 X10E9/L Basophils Absolute 0.1 0.0 - 0.2 X10E9/L Anisocytosis 2+ (A) NONE^NONE Hypochromia 2+ (A) NONE^NONE Fragment 1+ (A) NONE^NONE Ovalocytes 2+ (A) NONE^NONE Basic Metabolic Panel Collection Time: 06/09/24 5:44 AM Result Value Ref Range Sodium 144 134 - 146 mmol/L Potassium, Bld 3.5 3.5 - 5.0 mmol/L Chloride 102 98 - 109 mmol/L CO2 30 22 - 32 mmol/L Anion gap 12 5 - 15 mmol/L BUN 18 5 - 27 mg/dL Creatinine 1.32 (H) 0.60 - 1.30 mg/dL Glucose 99 65 - 99 mg/dL Calcium 8.7 8.5 - 10.5 mg/dL eGFR (CKD-EPI)non-race dependent 58 (L) >59 ml/min/1.73sq.m Lab Review Results from last 7 days Lab Units 06/09/2454306/08/2440506/07/24 0542 WBC X10E9/L 6.0 -- 6.4 HEMOGLOBIN g/dL 12.6* 11.3* 10.9* HEMATOCRIT % 40.9 -- 35.2* PLATELETS X10E9/L 271 277 259 MCV fL 73* -- 73* Results from last 7 days Lab Units 06/09/2454306/08/24210906/08/2440506/07/24212906/07/24 0542 SODIUM mmol/L 144 -- 146 -- 144 POTASSIUM mmol/L 3.5 3.3* 3.4* 3.2* 3.3* CHLORIDE mmol/L 102 -- 107 -- 106 CO2 mmol/L 30 -- 26 -- 27 BUN mg/dL 18 -- 24 -- 30* CREATININE mg/dL 1.32* -- 1.58* -- 1.44* CALCIUM mg/dL 8.7 -- 8.3* -- 8.6 ANION GAP mmol/L 12 -- 13 -- 11 Results from last 7 days Lab Units 06/09/2454306/08/2440506/07/24 19406/07/24 0542 BEDSIDE GLUCOSE mg/dL -- -- 86 -- GLUCOSE mg/dL 99 117* -- 91 Results from last 7 days Lab Units 06/09/24 0544 06/08/24 0406 06/07/24 2130 06/07/24 0542 MAGNESIUM mg/dL -- 2.5 2.7* 1.5* CALCIUM mg/dL 8.7 8.3* -- 8.6 Results from last 7 days Lab Units 06/07/24 0542 IRON ug/dL 16* TIBC-CALC ONLY DO NOT ORDER ug/dL 336 FERRITIN ng/mL 41 Results from last 7 days Lab Units 06/08/24 0406 06/07/24 0542 ALK PHOS U/L -- 60 AST U/L 31 29 ALT U/L 20 21 ALBUMIN g/dL 2.9* 2.9* Results from last 7 days Lab Units 06/07/24 0542 AMMONIA umol/L 32 Results from last 7 days Lab Units 06/08/24 0406 06/07/24 0542 PROTIME sec 13.9* 15.5* INR 1.2* 1.3* Microbiology Results Procedure Component Value Units Date/Time Urine culture [[id number]] Collected: 06/07/24 0751 Specimen: Urine Updated: 06/08/24 0813 Culture NO GROWTH AT <1000 CFU/mL CT brain without contrast Result Date: 06/08/[address] of the brain dated dated 06/08/2024 at 7:56 PM INDICATION: Bilateral subdural fluid collections PROCEDURE: Automatic radiation exposure lowering techniques were utilized. All CT scans at this facility use dose modulation, iterative reconstruction, and/or weight based dosing when appropriate to reduce radiation dose to as low as reasonably achievable.. A nonenhanced CT of the brain and sagittal and coronal reformats obtained. FINDINGS: Comparison is to 2024 and 06/07/2024. Redemonstration of calcifications in the basal ganglia, and encephalomalacia in the right frontal and occipital lobes not significantly changed. No intracranial bleed. No mass, mass effect, or midline shift shift. No significant change from the comparison examination. Tiny subdural hygromas of unknown clinical significance. IMPRESSION: 1. No intracranial bleed. 2. No significant change from the comparison examination. Finalized by Uriel Smith MD on 06/08/2024 8:[address] brain without contrast Result Date: 06/08/2024 CT OF THE HEAD WITHOUT CONTRAST INDICATION: Pain. Head trauma, moderate-severe COMPARISON: 06/07/2024 TECHNIQUE: CT was obtained of the head without contrast. FINDINGS: INTRACRANIAL: Stable configuration of the ventricles and sulci with mild to moderate volume loss. No mass effect or midline shift. Right occipital encephalomalacia/gliosis. Basal ganglial mineralization. Maintained lanier-white differentiation. Potential small lentiform fluid collections over the bifrontal regions somewhat less conspicuous than on prior; consider MRI follow-up. No convincing intracranial hemorrhage.. SOFT TISSUES and ORBITS: Orbits are unremarkable. Soft tissues within normal limits. CALVARIUM: No depressed calvarial fracture or suspicious lesion. SINUSES AND MASTOID AIR CELLS: Well aerated. IMPRESSION: No significant change from 06/07/2024.. See above. Consider MRI follow-up . All CT scans at this facility use dose modulation, iterative reconstruction, and/or weight based dosing when appropriate to reduce radiation dose to as low as reasonably achievable. Finalized by Zac Lewis MD on 06/08/2024 11:06 AM EEG Result Date: 06/07/2024 Images from the original result were not included. History This is a routine EEG in a patient with altered mental status. Procedure This is a standard digital EEG performed in the 10-[employer] International system and was reviewed with multiple reformattable montages Technical Description There is no well defined posterior dominant rhythm noted. The background is primarily composed of semirhythmical 20-40 uv delta and theta range frequencies. Semi rhythmical theta and delta range activity is intermixed with occasional beta activity noted over the frontal and central region. There is intermittent attenuation of the background frequencies but no clear state related changes are noted. Hyperventilation is deferred. Photic stimulation fails to elicit a sustained driving response. There is no evidence of definite epileptiform activity during this study Clinical Interpretation This EEG in the awake state is abnormal due to the presence of moderate to severe generalized background slowing suggestive of moderate to severe bi-hemispheric cerebral dysfunction that can be seen in post ictal states, metabolic, hypoxic or toxic encephalopathies, sedative medication use or primary neurological disorders. Bertha Oakley MD Educational Consultant Neurology/Neurophysiology [facility] CT brain without contrast Result Date: 06/07/2024 CT HEAD WITHOUT IV CONTRAST CLINICAL STATEMENT:Patient demonstrates some possible altered consciousness. Head trauma, minor (Age >= 65y); Fall in hospital, on heparin infusion Comparison study: 06/05/2024 TECHNIQUE: Axial views were obtained at 2.5 mm interval through the head without IV contrast. Automatic dose exposure reduction technique utilized. FINDINGS: The midline structures are not deviated. The ventricular system is prominent.. The lanier and white matter show periventricular white matter disease of a chronic nature with basal ganglia calcification noted. There is gliosis in the right posterior temporal region consistent with an old infarct. This extends to the occipital region. There are extra-axial fluid collections overlying the cerebral hemispheres that was not seen on the study from 2 days previous. These measure approximately 4 to 5 mm in maximum width without significant mass effect. The posterior fossa is unremarkable. No features of raised intracranial pressure.No acute intracranial bleed. The IACs are unremarkable. The cerebellopontine angles are unremarkable. The temporomandibular joints show no abnormality. The osseous structures in the skull base and in the calvarium show no definite abnormality. The orbits are normal. The paranasal sinuses are clear. The mastoid air cells are clear. IMPRESSION: Chronic small vessel white matter disease. 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 Bilateral subdural fluid collections/hygromas without significant mass effect. These could be part of idiopathic intracranial hypotension. All CT scans at this facility use dose modulation, iterative reconstruction, and/or weight based dosing when appropriate to reduce radiation dose to as low as reasonably achievable. Finalized by Gab Clay MD on 06/07/2024 10:01 PM MRCP with MRI abdomen without contrast Result Date: 06/07/2024 History: Recent with history of jaundice. Exam/Technique: Multiplanar, multisequence MR imaging is obtained of the MRCP and MRI abdomen without intravenous contrast. Routine multiplanar multisequence MR imaging of the abdomen was performed prior to and following uneventful administration of intravenous gadolinium contrast. M.R.C.P. was performed with 3-D volume rendered reformatted and maximum intesntiy projection rotational images for the evaluation of the pancreatic and biliary ductal system at the MR console. Comparison: CT abdomen pelvis dated 06/07/2024. Ultrasound abdomen dated 06/06/2024. Findings: Lack of IV contrast compromises detail. Motion artifact compromises detail. No evidence of fatty infiltration of the liver. No focal liver lesions. CBD not dilated and measures Bibasal pleural effusions. Body wall edema. Mesenteric edema noted. Generalized bone marrow signal is appropriate with degenerative changes. The gallbladder is distended and demonstrates a fluid sludge level. There is no clear evidence of biliary dilatation. There is no evidence of dilatation of the pancreatic duct. No obvious pancreatic mass. Cyst formation in the right kidneys. IMPRESSION: The examination is limited due to motion artifact and lack of contrast. There is significant edema of the mesenteric fat planes as well as significant pleural effusions. There is a no biliary duct dilatation but there is sludge in the gallbladder. No biliary duct dilatation. Finalized by Gab Clay MD on 06/07/2024 8:[address] abdomen and pelvis without contrast Result Date: 06/07/2024 CLINICAL INFORMATION: Abdominal pain radiating to the back, kidney stone suspected. TECHNIQUE: Abdominopelvic CT without contrast. All CT scans at this facility use dose modulation, iterative reconstruction, and/or weight based dosing when appropriate to reduce radiation dose to as low as reasonably achievable. COMPARISON: 07/19/2015. FINDINGS LOWER CHEST: Moderate bilateral pleural effusions with compressive atelectasis. Minor interstitial edema in the lung bases. Coronary artery calcifications. Cardiomegaly. HEPATOBILIARY: Unenhanced liver and gallbladder unremarkable. No biliary dilation. PANCREAS: Unenhanced pancreas unremarkable. No pancreatic ductal dilation. SPLEEN: The unenhanced spleen is within normal limits. ADRENAL GLANDS: The unenhanced adrenal glands are within normal limits. KIDNEYS, URETERS, AND BLADDER: Simple right interpolar renal cyst requires no follow-up. Hyperattenuating 1.6 cm left inferior pole renal cyst appears unchanged from prior. Extensive bilateral perinephric edema. No collecting system dilation or evidence of ureteral calculus. Urinary bladder decompressed by Arenas catheter. GI TRACT AND PERITONEUM: Small and large bowel are normal in caliber. Normal appendix. VASCULATURE: Abdominal aorta is nonaneurysmal. Aortoiliac calcifications are present. LYMPH NODES: Not enlarged. REPRODUCTIVE ORGANS: Prostate calcifications present. MSK: Degenerative changes throughout the spine. Partial osseous fusion across the sacroiliac joints. Mild diffuse edema in the body wall. IMPRESSION: * Moderate bilateral pleural effusions and mild interstitial edema in the lung bases. Additional findings of volume overload including mild body wall edema, retroperitoneal and presacral edema along with trace ascites. Approved by Resident Frederick Crump DO on 06/07/2024 9:47 AM IBaldev MD have personally reviewed the image(s) and agree with and/or edited the report Finalized by Baldev Hyde MD on 06/07/2024 10:07 AM This note was created with the assistance of a speech-recognition program. Although the intention is to generate a document that actually reflects the content of the visit, no guarantees can be provided that every mistake has been identified and corrected by editing. Electronically signed by: ROSELINE REYEZ MD, KRISTAL, [facility] 06/09/2024 11:15 AM Preferred contact method: #1. Epic chat #2. [facility] team pager Available from 7 am to 7 pm Images from the original note were not included. General Surgery C Daily Progress Note Patient Name: Johnathan Rodney Admit Date: 06/07/2024 Length of Stay: 2 Days Admitting Physician: Matthew Philippe MD Subjective: Pt met resting in bed this morning. NAEO. Continues to deny abdominal pain, nausea, vomiting, fever, or chills. No tenderness to palpation. Patient will like to go home if possible. Objective: Vitals: 06/09/24 0732 BP: 100/67 Pulse: 93 Resp: 18 Temp: 36.6 C (97.8 F) SpO2: 99% Temp: [36.4 C (97.5 F)-36.7 C (98.1 F)] 36.6 C (97.8 F) Pulse: [80-133] 93 Resp: [16-18] 18 BP: (82-176)/(67-124) 100/67 SpO2: [97 %-99 %] 99 % O2 Device: None (Room air) O2 Flow Rate (L/min): [0 L/min] 0 L/min No Known Allergies Intake/Output last 3 shifts: I/O last 3 completed shifts: In: - Out: 5925 [Urine:5925] Intake/Output this shift: I/O this shift: In: 633.3 [IV Piggyback:633.3] Out: - Dietary Orders (From admission, onward) Start Ordered 06/08/24 1524 Adult diet Regular Texture Diet effective now Question: Diet Type: Answer: Regular Texture 06/08/24 1523 Physical Exam General: Awake, alert and oriented x2, in no acute distress HENT: Head normocephalic, external ears and nose are normal. Scleral icterus present Pulmonary: Regular, non-labored respirations, without use of accessory muscles, no stridor Cardiovascular: Regular rate and rhythm, non-edematous x4 extremities Abdomen: Soft, non-tender, non-distended Musculoskeletal: Range of motion grossly normal x4 extremities, no deformity x4 extremities Neurological: Motor and sensation grossly intact Skin: Warm, dry, jaundiced Laboratory Data: Lab Results Component Value Date WBC 6.0 06/09/2024 HGB 12.6 (L) 06/09/2024 HCT 40.9 06/09/2024 MCV 73 (L) 06/09/2024 PLT 271 06/09/2024 Lab Results Component Value Date GLU 99 06/09/2024 CALCIUM 8.7 06/09/2024 K 3.5 06/09/2024 CO2 30 06/09/2024 CL 102 06/09/2024 BUN 18 06/09/2024 CREATININE 1.32 (H) 06/09/2024 No results found for: AMYLASE Lab Results Component Value Date LIPASE 76 (H) 01/01/2017 Lab Results Component Value Date ALT 20 06/08/2024 AST 31 06/08/2024 ALKPHOS 60 06/07/2024 Lab Results Component Value Date INR 1.2 (H) 06/08/2024 INR 1.3 (H) 06/07/2024 PROTIME 13.9 (H) 06/08/2024 PROTIME 15.5 (H) 06/07/2024 amLODIPine, 10 mg, oral, Daily atorvastatin, 40 mg, oral, Nightly carvediloL, 12.5 mg, oral, BID cefTRIAXone (ROCEPHIN) IV, 1,000 mg, intravenous, Q24H folic acid, 1 mg, oral, Daily furosemide, 40 mg, intravenous, Q12H lactulose, 20 g, oral, BID melatonin, 5 mg, oral, Nightly metroNIDAZOLE, 500 mg, intravenous, Q12H QUEtiapine, 25 mg, oral, Nightly sodium chloride, 3 mL, intravenous, Q12H TONY tamsulosin, 0.4 mg, oral, Nightly thiamine HCl, 100 mg, oral, Daily acetaminophen dextrose dextrose 5 % in water dextrose 50 % in water (D50W) glucagon (human recombinant) LORazepam OR LORazepam OR LORazepam LORazepam OR LORazepam OR LORazepam LORazepam OR LORazepam OR LORazepam magnesium sulfate magnesium sulfate metoprolol (LOPRESSOR) IV [id number]-calcium &mins potassium chloride OR potassium chloride OR potassium chloride IV (Adult) sodium chloride sodium chloride sodium chloride 0.9 % Imaging: CT brain without contrast Nonenhanced CT of the brain dated dated 06/08/2024 at 7:56 PM INDICATION: Bilateral subdural fluid collections PROCEDURE: Automatic radiation exposure lowering techniques were utilized. All CT scans at this facility use dose modulation, iterative reconstruction, and/or weight based dosing when appropriate to reduce radiation dose to as low as reasonably achievable.. A nonenhanced CT of the brain and sagittal and coronal reformats obtained. FINDINGS: Comparison is to 2024 and 06/07/2024. Redemonstration of calcifications in the basal ganglia, and encephalomalacia in the right frontal and occipital lobes not significantly changed. No intracranial bleed. No mass, mass effect, or midline shift shift. No significant change from the comparison examination. Tiny subdural hygromas of unknown clinical significance. IMPRESSION: 1. No intracranial bleed. 2. No significant change from the comparison examination. Finalized by Uriel Smith MD on 06/08/2024 8:[address] brain without contrast CT OF THE HEAD WITHOUT CONTRAST INDICATION: Pain. Head trauma, moderate-severe COMPARISON: 06/07/2024 TECHNIQUE: CT was obtained of the head without contrast. FINDINGS: INTRACRANIAL: Stable configuration of the ventricles and sulci with mild to moderate volume loss. No mass effect or midline shift. Right occipital encephalomalacia/gliosis. Basal ganglial mineralization. Maintained lanier-white differentiation. Potential small lentiform fluid collections over the bifrontal regions somewhat less conspicuous than on prior; consider MRI follow-up. No convincing intracranial hemorrhage.. SOFT TISSUES and ORBITS: Orbits are unremarkable. Soft tissues within normal limits. CALVARIUM: No depressed calvarial fracture or suspicious lesion. SINUSES AND MASTOID AIR CELLS: Well aerated. IMPRESSION: No significant change from 06/07/2024.. See above. Consider MRI follow-up . All CT scans at this facility use dose modulation, iterative reconstruction, and/or weight based dosing when appropriate to reduce radiation dose to as low as reasonably achievable. Finalized by Zac Lewis MD on 06/08/2024 11:06 AM Assessment: Johnathan Rodney is a 68 y.o.male with a PMH of CHF 50%, Afib on Eliquis, and daily alcohol and marijuana use who was transferred to [facility] from OSH with AMS and hyperbilirubinemia. MRCP findings without any significant biliary ductal dilation and some sludge within the gallbladder. Etiology of his LFTs is unclear, unlikely to be secondary to gallbladder. Plan: No acute surgical intervention at this time. Pain and nausea control PRN Electrolyte repletion PRN Rest of care per primary Demetria Keller DO General Surgery, PGY-1 06/09/24 9:02 AM General Surgery C 6a - 6p Pager: [phone] 6p - 6a Pager: [phone] Cosigned by Nicolas Wells MD at 06/09/2024 9:18 AM EST Associated attestation - Nicolas Wells MD - 06/09/2024 9:18 AM EST Attending Attestation: I saw the patient. I performed the critical/leonardo portions of the service. I was directly involved in the management and treatment plan of the patient. I reviewed the resident's note. Additional Notes/Findings: Doing ok. No complaints of pain. Diet as tolerated. Will sign-off. Please call if needed. Nicolas Wells MD, FACS General Surgery and Minimally Invasive Surgery [address], [address] [place] [address] Office: Images from the original note were not included. [facility] Neurology General Neurology Consultation Progress Note Consult Neurology Service: [phone] Primary Team: [facility] Hospitalist Chief Concern and Reason for Consultation: Altered mental status Interval History: Johnathan Rodney is a 68 y.o. year old male for whom Neurology was consulted for chief concern of altered mental status. Patient has history of paroxysmal atrial fibrillation on Eliquis, hypertension, chronic HFrEF (EF of 40% in 04/2023), alcohol use disorder, hyperlipidemia, and medication noncompliance. Patient was initially evaluated at outside hospital by tele Neurology for concerns of altered mental status and hallucinations. Per chart review, patient was brought in by family due to concerns of confusion as well as 2 week history of hallucinations. It was reported that patient lived alone and it was unclear if patient was compliant with his medications. Per patient's daughter, the patient had visual hallucinations of spiders and the hallucinations were getting more severe. Patient was becoming more paranoid as well. Additionally, it was noted that patient would use alcohol daily as well as marijuana and cigarettes. Outside hospital CT head showed remote infarcts in the right frontal and right occipital lobe. MRI brain showed no acute infarcts. Patient was noted to be in AFib with RVR at the outside hospital. Additionally, abdominal ultrasound showed concerns for acute versus chronic cholecystitis. Patient was started on IV Rocephin and Flagyl. Tele neurology recommended that the patient be further evaluated by Neurology and consider LP for occult infection. Patient was transferred to [facility] for further evaluation. Interval history: Patient seen and evaluated at the bedside, patient was somnolent, however arousable with repetitive stimulation, patient was oriented to self, person and time. Visual field examination intact. Patient was able to move bilateral upper and lower limbs antigravity, intact reflexes. There is no clear meningeal signs. According to nursing staff, patient is slowly improving, however family said that he has slightly worse than before, it looks like his course has been fluctuating Pertinent past Medical History/Family/Social History reviewed as per initial HPI. Pertinent Systems reviewed as per initial HPI, and negative as below except for mentioned above. Medications: None Physical Exam Vital Signs: Vitals: 06/08/24 1750 BP: Pulse: (!) 131 Resp: Temp: SpO2: General: Normotensive, in no acute distress. Cardiac Examination: Heart: RRR, no murmurs, no rubs, no gallops. Carotids: No bruit Peripheral Vascular System: Peripheral pulses intact Neurological Examination: Higher Mental Function: Somnolent, waking up with repetitive verbal stimulation, oriented x3. Patient was following commands consistently, answering some questions appropriately. Slowly responsive and evidence of psychomotor retardation. Impaired attention span and concentration Ophthalmological Examination: Clear conjunctiva, no cataracts. Cranial Nerve Examination: II: Normal tracking, no evidence of hemianopia or other visual field defect. III, IV, & : EOM intact, no ptosis, no nystagmus seen. Pupils are equal and reactive to light. V: Facial sensation is intact. VII: no facial asymmetry, facial movement intact. VIII: hearing is normal. IX-X: Palate elevates in the midline. XI: Normal trapezius strength and/or movement. XII: Tongue movement is normal, position is midline and no fasciculations are observed. Tongue strength intact. Motor: Patient moving bilateral upper and lower limbs equally antigravity. No significant muscle atrophy, no tremors, no fasciculations. Deep Tendon Reflexes: Right, Left: Biceps 2, 2 Brachioradialis 2, 2 Patellae 2, 2 Plantar response was flexor bilaterally. No clonus or other pathological reflexes elicited. Sensory examination: Intact to light touch throughout. Cerebellar: Finger-nose testing normal without dysmetria Gait and station: Deferred. Pertinent Labs: Results from last 7 days Lab Units 06/08/24 0406 06/07/24 0542 WBC X10E9/L -- 6.4 HEMOGLOBIN g/dL 11.3* 10.9* HEMATOCRIT % -- 35.2* PLATELETS X10E9/L 277 259 Results from last 7 days Lab Units 06/08/24 1020 06/08/24 0406 06/07/24212906/07/24 0542 APTT sec 38* 80* 52* 37 INR -- 1.2* -- 1.3* Results from last 7 days Lab Units 06/08/24 0406 06/07/24212906/07/24 0542 SODIUM mmol/L 146 -- 144 POTASSIUM mmol/L 3.4* 3.2* 3.3* CHLORIDE mmol/L 107 -- 106 CO2 mmol/L 26 -- 27 BUN mg/dL 24 -- 30* CREATININE mg/dL 1.58* -- 1.44* CALCIUM mg/dL 8.3* -- 8.6 MAGNESIUM mg/dL 2.5 2.7* 1.5* Results from last 7 days Lab Units 06/08/24 0406 06/07/24 0542 ALBUMIN g/dL 2.9* 2.9* TOTAL PROTEIN g/dL 5.7* 5.4* ALT U/L 20 21 AST U/L 31 29 ALK PHOS U/L -- 60 AMMONIA umol/L -- 32 Results from last 7 days Lab Units 06/08/24 04006/07/24 19406/07/24 0542 BEDSIDE GLUCOSE mg/dL -- 86 -- GLUCOSE mg/dL 117* -- 91 Lab Results Component Value Date HGBA1C 5.9 (H) 06/08/2024 Results from last 7 days Lab Units 06/07/24 0542 VITAMIN B 12 pg/mL >1,500* FOLATE ng/mL 22.7 FERRITIN ng/mL 41 IRON ug/dL 16* TIBC-CALC ONLY DO NOT ORDER ug/dL 336 IRON SATURATION % SATURATION 5* Results from last 7 days Lab Units 06/08/24 0406 CHOLESTEROL mg/dL 135* HDL mg/dL 25* LDL (CALC) mg/dL 96 TRIGLYCERIDES mg/dL 70 Ammonia: 32 Imaging: CT brain without contrast (06/05/2024): remote infarcts in the right frontal and right occipital lobe. No acute findings. MRI brain without contrast (06/06/2024): No acute findings, however very limited study due to poor quality. Other Testing: Routine EEG: Severe background slowing. . Assessment: Johnathan Rondey is a 68 y.o. year old male who is admitted due to altered mental status and hallucinations. Patient has history of paroxysmal atrial fibrillation on Eliquis, primary hypertension, chronic HFrEF (EF of 40% in 04/2023), alcohol use disorder, hyperlipidemia, and medication noncompliance. CT head at outside hospital showed remote infarcts in the right frontal and right occipital lobe, but no acute intracranial findings. MRI brain from outside hospital showed no acute intracranial findings. Initial examination, patient was A&O x3 oriented to person, place, time but disoriented to situation as well as has some lapses and retrograde memory, patient was also somnolent and slowly responsive. Impression: Altered mental status highly likely metabolic in the setting of underlying RADHA, concern for cholecystitis. 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 Plan: No indication to proceed with lumbar puncture at this time, patient is not encephalopathic, he is improving, no meningeal signs. Will repeat brain MRI with and without contrast due to poor quality previous MRI. Will reassess the patient clinically and will review MRI findings, if we continued to have suspicion for meningitis/encephalitis will proceed with LP, however no indication for LP at this time. Delirium precautions. Treatment of underlying metabolic and infectious derangements per primary team and other consulting services. Our service will continue to follow Marco A Reddy MD PGY-4, Neurology Resident [facility] 06/08/24 5:51 PM Staffed with: Dr. Bethea This patient is being followed by the Neurology Resident service. Contact attending directly during these hours: Monday to 7:30-8:30 A.M. to Monday 12-1:00 p.m. Primary Neurology service: [phone] Consult neurology service: [phone] Resident Stroke Service: [phone] If the patient belongs to the Stroke JAK service please contact the Stroke JAK directly. Cosigned by Guilherme Bethea MD at 06/08/2024 6:03 PM EST Associated attestation - Guilherme Bethea MD - 06/08/2024 6:03 PM EST Attending Attestation: I saw the patient. I participated and was physically present during the critical/leonardo portions of the service. I was directly involved in the management and treatment plan of the patient. I reviewed the resident's note. Additional Notes/Findings: None Images from the original note were not included. General Surgery C Daily Progress Note Patient Name: Johnathan Rodney Admit Date: 06/07/2024 Length of Stay: 1 Days Admitting Physician: Matthew Philippe MD Subjective: Pt met resting in bed this morning. Overnight, pt did have a fall, otherwise, NAEO. Continues to deny abdominal pain, nausea, vomiting, fever, or chills. MRCP: edema of the mesenteric fat planes as well as significant pleural effusions. There is a no biliary duct dilatation but there is sludge in the gallbladder. No biliary duct dilatation Objective: Vitals: 06/08/24 0735 BP: (!) 160/120 Pulse: 95 Resp: 15 Temp: 37.1 C (98.8 F) SpO2: Temp: [36.3 C (97.3 F)-37.1 C (98.8 F)] 37.1 C (98.8 F) Pulse: [73-105] 95 Resp: [15-18] 15 BP: (107-160)/(78-120) 160/120 SpO2: [95 %-99 %] 98 % O2 Device: None (Room air) O2 Flow Rate (L/min): [0 L/min] 0 L/min No Known Allergies Intake/Output last 3 shifts: I/O last 3 completed shifts: In: - Out: 1550 [Urine:1550] Intake/Output this shift: I/O this shift: In: - Out: 750 [Urine:750] Dietary Orders (From admission, onward) Start Ordered 06/08/24 0001 Adult diet NPO; Except medications Diet effective midnight Question Answer Comment Diet Type: NPO NPO Except: Except medications 06/07/24 1802 Physical Exam General: Awake, alert and oriented x2, in no acute distress HENT: Head normocephalic, external ears and nose are normal. Scleral icterus present Pulmonary: Regular, non-labored respirations, without use of accessory muscles, no stridor Cardiovascular: Regular rate and rhythm, non-edematous x4 extremities Abdomen: Soft, non-tender, non-distended Musculoskeletal: Range of motion grossly normal x4 extremities, no deformity x4 extremities Neurological: Motor and sensation grossly intact Skin: Warm, dry, jaundiced Laboratory Data: Lab Results Component Value Date WBC 6.4 06/07/2024 HGB 11.3 (L) 06/08/2024 HCT 35.2 (L) 06/07/2024 MCV 73 (L) 06/07/2024 PLT 277 06/08/2024 Lab Results Component Value Date GLU 86 06/07/2024 CALCIUM 8.6 06/07/2024 K 3.2 (L) 06/07/2024 CO2 27 06/07/2024 CL 106 06/07/2024 BUN 30 (H) 06/07/2024 CREATININE 1.44 (H) 06/07/2024 No results found for: AMYLASE Lab Results Component Value Date LIPASE 76 (H) 01/01/2017 Lab Results Component Value Date ALT 20 06/08/2024 AST 31 06/08/2024 ALKPHOS 60 06/07/2024 Lab Results Component Value Date INR 1.2 (H) 06/08/2024 INR 1.3 (H) 06/07/2024 PROTIME 13.9 (H) 06/08/2024 PROTIME 15.5 (H) 06/07/2024 amLODIPine, 10 mg, oral, Daily atorvastatin, 40 mg, oral, Nightly cefTRIAXone (ROCEPHIN) IV, 1,000 mg, intravenous, Q24H folic acid, 1 mg, oral, Daily furosemide, 40 mg, intravenous, Q12H hydrALAZINE, 100 mg, oral, TID lactulose, 20 g, oral, BID melatonin, 5 mg, oral, Nightly metroNIDAZOLE, 500 mg, intravenous, Q12H QUEtiapine, 25 mg, oral, Nightly sodium chloride, 3 mL, intravenous, Q12H TONY tamsulosin, 0.4 mg, oral, Nightly thiamine HCl, 100 mg, oral, Daily acetaminophen dextrose dextrose 5 % in water dextrose 50 % in water (D50W) glucagon (human recombinant) LORazepam OR LORazepam OR LORazepam LORazepam OR LORazepam OR LORazepam LORazepam OR LORazepam OR LORazepam LORazepam OR LORazepam OR LORazepam magnesium sulfate magnesium sulfate [id number]-OP-calcium &mins potassium chloride OR potassium chloride OR potassium chloride IV (Adult) sodium chloride sodium chloride sodium chloride 0.9 % Imaging: EEG Images from the original result were not included. History This is a routine EEG in a patient with altered mental status. Procedure This is a standard digital EEG performed in the 10-20 International system and was reviewed with multiple reformattable montages Technical Description There is no well defined posterior dominant rhythm noted. The background is primarily composed of semirhythmical 20-40 uv delta and theta range frequencies. Semi rhythmical theta and delta range activity is intermixed with occasional beta activity noted over the frontal and central region. There is intermittent attenuation of the background frequencies but no clear state related changes are noted. Hyperventilation is deferred. Photic stimulation fails to elicit a sustained driving response. There is no evidence of definite epileptiform activity during this study Clinical Interpretation This EEG in the awake state is abnormal due to the presence of moderate to severe generalized background slowing suggestive of moderate to severe bi-hemispheric cerebral dysfunction that can be seen in post ictal states, metabolic, hypoxic or toxic encephalopathies, sedative medication use or primary neurological disorders. Bertha Oakley MD Educational Consultant Neurology/Neurophysiology [facility] CT brain without contrast CT HEAD WITHOUT IV CONTRAST CLINICAL STATEMENT:Patient demonstrates some possible altered consciousness. Head trauma, minor (Age >= 65y); Fall in hospital, on heparin infusion Comparison study: 06/05/2024 TECHNIQUE: Axial views were obtained at 2.5 mm interval through the head without IV contrast. Automatic dose exposure reduction technique utilized. FINDINGS: The midline structures are not deviated. The ventricular system is prominent.. The lanier and white matter show periventricular white matter disease of a chronic nature with basal ganglia calcification noted. There is gliosis in the right posterior temporal region consistent with an old infarct. This extends to the occipital region. There are extra-axial fluid collections overlying the cerebral hemispheres that was not seen on the study from 2 days previous. These measure approximately 4 to 5 mm in maximum width without significant mass effect. The posterior fossa is unremarkable. No features of raised intracranial pressure.No acute intracranial bleed. The IACs are unremarkable. The cerebellopontine angles are unremarkable. The temporomandibular joints show no abnormality. The osseous structures in the skull base and in the calvarium show no definite abnormality. The orbits are normal. The paranasal sinuses are clear. The mastoid air cells are clear. IMPRESSION: Chronic small vessel white matter disease. 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 Bilateral subdural fluid collections/hygromas without significant mass effect. These could be part of idiopathic intracranial hypotension. All CT scans at this facility use dose modulation, iterative reconstruction, and/or weight based dosing when appropriate to reduce radiation dose to as low as reasonably achievable. Finalized by Gab Clay MD on 06/07/2024 10:01 PM MRCP with MRI abdomen without contrast History: Recent with history of jaundice. Exam/Technique: Multiplanar, multisequence MR imaging is obtained of the MRCP and MRI abdomen without intravenous contrast. Routine multiplanar multisequence MR imaging of the abdomen was performed prior to and following uneventful administration of intravenous gadolinium contrast. M.R.C.P. was performed with 3-D volume rendered reformatted and maximum intesntiy projection rotational images for the evaluation of the pancreatic and biliary ductal system at the MR console. Comparison: CT abdomen pelvis dated 06/07/2024. Ultrasound abdomen dated 06/06/2024. Findings: Lack of IV contrast compromises detail. Motion artifact compromises detail. No evidence of fatty infiltration of the liver. No focal liver lesions. CBD not dilated and measures Bibasal pleural effusions. Body wall edema. Mesenteric edema noted. Generalized bone marrow signal is appropriate with degenerative changes. The gallbladder is distended and demonstrates a fluid sludge level. There is no clear evidence of biliary dilatation. There is no evidence of dilatation of the pancreatic duct. No obvious pancreatic mass. Cyst formation in the right kidneys. IMPRESSION: The examination is limited due to motion artifact and lack of contrast. There is significant edema of the mesenteric fat planes as well as significant pleural effusions. There is a no biliary duct dilatation but there is sludge in the gallbladder. No biliary duct dilatation. Finalized by Gab Clay MD on 06/07/2024 8:[address] abdomen and pelvis without contrast CLINICAL INFORMATION: Abdominal pain radiating to the back, kidney stone suspected. TECHNIQUE: Abdominopelvic CT without contrast. All CT scans at this facility use dose modulation, iterative reconstruction, and/or weight based dosing when appropriate to reduce radiation dose to as low as reasonably achievable. COMPARISON: 07/19/2015. FINDINGS LOWER CHEST: Moderate bilateral pleural effusions with compressive atelectasis. Minor interstitial edema in the lung bases. Coronary artery calcifications. Cardiomegaly. HEPATOBILIARY: Unenhanced liver and gallbladder unremarkable. No biliary dilation. PANCREAS: Unenhanced pancreas unremarkable. No pancreatic ductal dilation. SPLEEN: The unenhanced spleen is within normal limits. ADRENAL GLANDS: The unenhanced adrenal glands are within normal limits. KIDNEYS, URETERS, AND BLADDER: Simple right interpolar renal cyst requires no follow-up. Hyperattenuating 1.6 cm left inferior pole renal cyst appears unchanged from prior. Extensive bilateral perinephric edema. No collecting system dilation or evidence of ureteral calculus. Urinary bladder decompressed by Arenas catheter. GI TRACT AND PERITONEUM: Small and large bowel are normal in caliber. Normal appendix. VASCULATURE: Abdominal aorta is nonaneurysmal. Aortoiliac calcifications are present. LYMPH NODES: Not enlarged. REPRODUCTIVE ORGANS: Prostate calcifications present. MSK: Degenerative changes throughout the spine. Partial osseous fusion across the sacroiliac joints. Mild diffuse edema in the body wall. IMPRESSION: * Moderate bilateral pleural effusions and mild interstitial edema in the lung bases. Additional findings of volume overload including mild body wall edema, retroperitoneal and presacral edema along with trace ascites. Approved by Resident Frederick Crump DO on 06/07/2024 9:47 AM IBaldev MD have personally reviewed the image(s) and agree with and/or edited the report Finalized by Baldev Hyde MD on 06/07/2024 10:07 AM Assessment: Johnathan Rodney is a 68 y.o.male with a PMH of CHF 50%, Afib on Eliquis, and daily alcohol and marijuana use who was transferred to [facility] from OSH with AMS and hyperbilirubinemia. MRCP findings without any significant biliary ductal dilation and some sludge within the gallbladder. Etiology of his LFTs is unclear, unlikely to be secondary to gallbladder. Currently, LFTs normal. tBili downtrending and at 1.3. Plan: Continue to monitor LFTs Appreciate recommendations from GI Pain and nausea control PRN Electrolyte repletion PRN Rest of care per primary Demetria Keller DO General Surgery, PGY-1 06/08/24 11:00 AM General Surgery C 6a - 6p Pager: [phone] 6p - 6a Pager: [phone] Cosigned by Nicolas Wells MD at 06/08/2024 3:36 PM EST Associated attestation - Nicolas Wells MD - 06/08/2024 3:36 PM EST Attending Attestation: I saw the patient. I performed the critical/leonardo portions of the service. I was directly involved in the management and treatment plan of the patient. I reviewed the resident's note. Additional Notes/Findings: Unclear etiology of elevated liver enzymes. No surgical intervention at this point. Nicolas Wells MD, [facility] General Surgery and Minimally Invasive Surgery [address] [place] [address], [address] [place] [address] Office: [facility] Gastroenterology/Hepatology Progress Note IDENTIFYING DATA PATIENT: Johnathan Rodney ADMIT DATE: 06/07/2024 TIME OF EVALUATION: 06/08/2024 10:31 AM HOSPITAL STAY: LOS: 1 day REASON FOR HOSPITALIZATION: acute encephalopathy SUBJECTIVE/INTERVAL HISTORY Johnathan Rodney's events from the last 12-24 hours were reviewed. Ivan Sebastian is resting in bed with his family at his side. He is alert and oriented today. He had an episode of diarrhea overnight but has not had any stools this morning. OBJECTIVE MEDICATIONS SCHEDULED: amLODIPine, 10 mg, oral, Daily atorvastatin, 40 mg, oral, Nightly cefTRIAXone (ROCEPHIN) IV, 1,000 mg, intravenous, Q24H folic acid, 1 mg, oral, Daily furosemide, 40 mg, intravenous, Q12H hydrALAZINE, 100 mg, oral, TID lactulose, 20 g, oral, BID melatonin, 5 mg, oral, Nightly metroNIDAZOLE, 500 mg, intravenous, Q12H QUEtiapine, 25 mg, oral, Nightly sodium chloride, 3 mL, intravenous, Q12H TONY tamsulosin, 0.4 mg, oral, Nightly thiamine HCl, 100 mg, oral, Daily PRNs: acetaminophen, 650 mg, Q4H PRN dextrose, 15 g, PRN dextrose 5 % in water, 100 mL/hr, Continuous PRN dextrose 50 % in water (D50W), 25 mL, PRN glucagon (human recombinant), 1 mg, PRN LORazepam, 1 mg, Q1H PRN Or LORazepam, 1 mg, Q1H PRN Or LORazepam, 1 mg, Q1H PRN LORazepam, 2 mg, Q1H PRN Or LORazepam, 2 mg, Q1H PRN Or LORazepam, 2 mg, Q1H PRN LORazepam, 3 mg, Q1H PRN Or LORazepam, 3 mg, Q1H PRN Or LORazepam, 3 mg, Q1H PRN LORazepam, 4 mg, Q1H PRN Or LORazepam, 4 mg, Q1H PRN Or LORazepam, 4 mg, Q1H PRN magnesium sulfate, 2,000 mg, PRN magnesium sulfate, 4,000 mg, PRN pjezeqak-[id number]-TJ-calcium &mins, 1 tablet, Daily PRN potassium chloride, 20-40 mEq, PRN Or potassium chloride, 20-40 mEq, PRN Or potassium chloride IV (Adult), 10 mEq, PRN sodium chloride, 3 mL, PRN sodium chloride, 25 mL, PRN sodium chloride 0.9 %, 20 mL/hr, Continuous PRN ALLERGIES: No Known Allergies Physical VITALS: BP (!) 160/120 Pulse 95 Temp 37.1 C (98.8 F) (Oral) Resp 15 Ht 182.9 cm (6') Wt 62.4 kg (137 lb 9.1 oz) SpO2 98% BMI 18.66 kg/m GEN: alert and oriented x3, NAD CV: RRR, no murmur, rub, gallop PULM: Clear anteriorly ABD: BS+, soft, non-tender, non-distended LABS AND IMAGING CBC: Lab Results Component Value Date WBC 6.4 06/07/2024 HGB 11.3 (L) 06/08/2024 HCT 35.2 (L) 06/07/2024 MCV 73 (L) 06/07/2024 PLT 277 06/08/2024 BMP: Lab Results Component Value Date GLU 86 06/07/2024 CALCIUM 8.6 06/07/2024 SODIUM 144 06/07/2024 K 3.2 (L) 06/07/2024 CO2 27 06/07/2024 BUN 30 (H) 06/07/2024 CREATININE 1.44 (H) 06/07/2024 Latest Reference Range & Units 06/07/24 05:42 Hep A IgM Ab Non-Reactive^Non-Reactive Non-Reactive Hepatitis B Surface Ag Non-Reactive^Non-Reactive Non-Reactive Hep B Core IgM Ab Non-Reactive^Non-Reactive Non-Reactive Anti HCV w/ PCR reflex Non-Reactive^Non-Reactive Non-Reactive IMAGING: MRI/MRCP 06/07/2024: Findings: Lack of IV contrast compromises detail. Motion artifact compromises detail. No evidence of fatty infiltration of the liver. No focal liver lesions. CBD not dilated and measures Bibasal pleural effusions. Body wall edema. Mesenteric edema noted. Generalized bone marrow signal is appropriate with degenerative changes. The gallbladder is distended and demonstrates a fluid sludge level. There is no clear evidence of biliary dilatation. There is no evidence of dilatation of the pancreatic duct. No obvious pancreatic mass. Cyst formation in the right kidneys. IMPRESSION: The examination is limited due to motion artifact and lack of contrast. There is significant edema of the mesenteric fat planes as well as significant pleural effusions. There is a no biliary duct dilatation but there is sludge in the gallbladder. No biliary duct dilatation. ASSESSMENT AND PLAN Johnathan Rodney is a 68 y.o. male with history of AFib on Eliquis, HTN, CKD, chronic systolic HF, heavy alcohol use, marijuana use admitted with encephalopathy after presenting to [facility] with altered mental status and hallucinations. 1. Alcohol use disorder, concern for liver cirrhosis -MRI/MRCP 06/07/2024: Compromised exam secondary to motion artifact and lack of contrast. No evidence of fatty infiltration of the liver. No focal liver lesions. No biliary dilatation. -total bilirubin 1.3, downtrending from 1.6 -AST, ALT and alk-phos within normal limits - acute hepatitis panel negative -tox screen positive for marijuana -liver appeared normal on ultrasound from outside hospital - platelet count is normal - INR elevated which may be related to poor nutrition - albumin low which may be related to poor nutrition, acute illness - overall picture vague in regards to cirrhosis evaluation 2. Encephalopathy and hallucinations -thought to be secondary to metabolic/infectious etiologies -neurology following -on lactulose 3. Elevated bilirubin -downtrending -total bilirubin 1.3, downtrending from 1.6 -MRI/MRCP 06/07/2024: No biliary ductal dilatation. Sludge in the gallbladder. PLAN: Recommend alcohol cessation Follow-up in the office for FibroScan-message sent office Nothing further from an inpatient GI standpoint. GI will sign off. NIRMALA Kennedy [facility] [address] [place] [id number] PH: [phone] NIRMALA Kuhn 06/08/24 1530 Images from the original note were not included. [facility] HOSPITALIST PROGRESS NOTE 06/08/2024 Patient Name: Johnathan Rodney : 1955 Code status: Problem List: Principal Problem: Acute encephalopathy Consulting Providers Provider Service Specialty MD [facility] Surgery General Surgery MD [facility] Urology Catrina Marie MD -- Neurology Richardson Brandt DO -- Gastroenterology Chief complaint- altered mental status Assessment and Plan: Acute on chronic systolic heart failure with EF 40% in 04/2023- IV Lasix. Daily weights, intake and output. Acute abdominal pain-suspected colitis versus cholecystitis. On Rocephin and Flagyl. Follow up GI and General surgery recommendations Hyperbilirubinemia- trending down, LFTs within normal limits now. hepatitis panel within normal limits. MRCP showing significant edema of the mesenteric fat planes as well as significant pleural effusion. 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 MRI brain currently negative for any acute infarcts.-neurology consulted. Follow up EEG. Continue Lipitor. Maintain delirium precautions S/p fall yesterday- CT head showing bilateral subdural fluid collection/hygromas without significant mass effect. Patient continues to be on heparin drip. Neurosurgery consulted. Acute urinary retention, right-sided hydronephrosis-s/p Arenas catheter placement. Continue Flomax. Reconsult Urology on the day of discharge for plans for Arenas catheter. Alcohol use disorder- on [facility] protocol. Thiamine and folic acid. Marijuana and tobacco use disorder Paroxysmal atrial fibrillation-rate controlled on Eliquis Discharge Planning: Not ready for discharge DVT prophylaxis EPC cuff SUBJECTIVE: On my evaluation patient is able to follow commands, sleepy but easily arousable. Not oriented to month or year. Tells me that he could not sleep yesterday night . Review of Systems - General ROS: negative for - chills or fever Respiratory ROS: no cough, shortness of breath, or wheezing Cardiovascular ROS: no chest pain or dyspnea on exertion OBJECTIVE: Exam: BP (!) 176/124 Comment: rn notified Pulse 81 Temp 36.4 C (97.5 F) (Oral) Resp 16 Ht 182.9 cm (6') Wt 62.4 kg (137 lb 9.1 oz) SpO2 93% BMI 18.66 kg/m Intake/Output Summary (Last 24 hours) at 06/08/2024 1529 Last data filed at 06/08/2024 0735 Gross per 24 hour Intake -- Output 1300 ml Net -1300 ml Wt Readings from Last 3 Encounters: 06/07/24 62.4 kg (137 lb 9.1 oz) 02/23/22 74.8 kg (165 lb) 01/20/21 80.6 kg (177 lb 9.6 oz) Physical Exam Constitutional: General: He is not in acute distress. Appearance: Normal appearance. He is well-developed. He is not diaphoretic. HENT: Head: Normocephalic and atraumatic. Mouth/Throat: Pharynx: No oropharyngeal exudate. Eyes: Pupils: Pupils are equal, round, and reactive to light. Neck: Thyroid: No thyromegaly. Cardiovascular: Rate and Rhythm: Normal rate and regular rhythm. Heart sounds: No murmur heard. Pulmonary: Effort: Pulmonary effort is normal. No respiratory distress. Breath sounds: Normal breath sounds. No wheezing or rales. Abdominal: General: Bowel sounds are normal. There is no distension. Palpations: Abdomen is soft. Tenderness: There is no abdominal tenderness. Musculoskeletal: General: No tenderness. Normal range of motion. Cervical back: Normal range of motion and neck supple. Skin: General: Skin is warm and dry. Findings: No erythema. Neurological: Mental Status: He is alert. He is disoriented. Cranial Nerves: No cranial nerve deficit. Medications: Scheduled Medications: amLODIPine, 10 mg, oral, Daily atorvastatin, 40 mg, oral, Nightly cefTRIAXone (ROCEPHIN) IV, 1,000 mg, intravenous, Q24H folic acid, 1 mg, oral, Daily furosemide, 40 mg, intravenous, Q12H hydrALAZINE, 100 mg, oral, TID lactulose, 20 g, oral, BID melatonin, 5 mg, oral, Nightly metroNIDAZOLE, 500 mg, intravenous, Q12H QUEtiapine, 25 mg, oral, Nightly sodium chloride, 3 mL, intravenous, Q12H TONY tamsulosin, 0.4 mg, oral, Nightly thiamine HCl, 100 mg, oral, Daily Infusions: dextrose 5 % in water, 100 mL/hr sodium chloride 0.9 %, 20 mL/hr PRN medications acetaminophen, 650 mg, Q4H PRN dextrose, 15 g, PRN dextrose 5 % in water, 100 mL/hr, Continuous PRN dextrose 50 % in water (D50W), 25 mL, PRN glucagon (human recombinant), 1 mg, PRN LORazepam, 1 mg, Q4H PRN Or LORazepam, 1 mg, Q4H PRN Or LORazepam, 1 mg, Q4H PRN LORazepam, 2 mg, Q4H PRN Or LORazepam, 2 mg, Q4H PRN Or LORazepam, 2 mg, Q4H PRN LORazepam, 3 mg, Q4H PRN Or LORazepam, 3 mg, Q4H PRN Or LORazepam, 3 mg, Q4H PRN magnesium sulfate, 2,000 mg, PRN magnesium sulfate, 4,000 mg, PRN orxskiia-quye-UJ-calcium &mins, 1 tablet, Daily PRN potassium chloride, 20-40 mEq, PRN Or potassium chloride, 20-40 mEq, PRN Or potassium chloride IV (Adult), 10 mEq, PRN sodium chloride, 3 mL, PRN sodium chloride, 25 mL, PRN sodium chloride 0.9 %, 20 mL/hr, Continuous PRN Recent Results (from the past 48 hours) CBC auto differential Collection Time: 06/07/24 5:42 AM Result Value Ref Range White Blood Cells 6.4 4.0 - 11.0 X10E9/L RBC count 4.84 4.10 - 5.70 X10E12/L Hemoglobin 10.9 (L) 13.0 - 17.0 g/dL Hematocrit 35.2 (L) 39 - 49 % MCV 73 (L) 80 - 100 fL MCH 22.6 (L) 27 - 34 pg MCHC 31.1 (L) 32 - 36 g/dL RDW 23.8 (H) 11.5 - 15.0 % Platelets 259 150 - 450 X10E9/L MPV 8.7 7 - 12 fL % neutrophils 89.0 % % lymphocytes 3.0 % % monocytes 5.2 % % eosinophils 1.0 % % Basophils 1.8 % Neutrophils Absolute (A) 5.7 1.5 - 6.6 X10E9/L Lymphocytes Absolute 0.2 (L) 1.0 - 3.5 X10E9/L Monocytes Absolute 0.3 0 - 0.9 X10E9/L Eosinophils Absolute 0.1 0.0 - 0.4 X10E9/L Basophils Absolute 0.1 0.0 - 0.2 X10E9/L Anisocytosis 2+ (A) NONE^NONE Hypochromia 1+ (A) NONE^NONE Ovalocytes 2+ (A) NONE^NONE Comprehensive metabolic panel Collection Time: 06/07/24 5:42 AM Result Value Ref Range Sodium 144 134 - 146 mmol/L Potassium, Bld 3.3 (L) 3.5 - 5.0 mmol/L Chloride 106 98 - 109 mmol/L CO2 27 22 - 32 mmol/L Anion gap 11 5 - 15 mmol/L BUN 30 (H) 5 - 27 mg/dL Creatinine 1.44 (H) 0.60 - 1.30 mg/dL Glucose 91 65 - 99 mg/dL Calcium 8.6 8.5 - 10.5 mg/dL Total Protein 5.4 (L) 6.0 - 8.0 g/dL Albumin 2.9 (L) 3.2 - 5.3 g/dL Alkaline Phosphatase 60 39 - 130 U/L AST 29 0 - 41 U/L ALT 21 0 - 40 U/L Total bilirubin 1.6 (H) 0.3 - 1.2 mg/dL eGFR (CKD-EPI)non-race dependent 53 (L) >59 ml/min/1.73sq.m Magnesium Collection Time: 06/07/24 5:42 AM Result Value Ref Range Magnesium 1.5 (L) 1.8 - 2.6 mg/dL Thyroid profile includes TSH FT4 Collection Time: 06/07/24 5:42 AM Result Value Ref Range TSH 2.40 0.49 - 4.67 uIU/mL T4, free 1.08 0.61 - 1.60 ng/dL Protime & INR Collection Time: 06/07/24 5:42 AM Result Value Ref Range Protime 15.5 (H) 9.8 - 13.2 sec Inr 1.3 (H) 0.8 - 1.1 APTT Collection Time: 06/07/24 5:42 AM Result Value Ref Range aPTT 37 26 - 37 sec Ammonia Collection Time: 06/07/24 5:42 AM Result Value Ref Range Ammonia 32 18 - 72 umol/L Hepatitis panel, acute Collection Time: 06/07/24 5:42 AM Result Value Ref Range Hepatitis B Surface Ag Non-Reactive Non-Reactive^Non-Reactive Hep B Core IgM Ab Non-Reactive Non-Reactive^Non-Reactive Hep A IgM Ab Non-Reactive Non-Reactive^Non-Reactive Anti HCV w/ PCR reflex Non-Reactive Non-Reactive^Non-Reactive Procalcitonin Collection Time: 06/07/24 5:42 AM Result Value Ref Range Procalcitonin 0.27 (H) <0.05 ng/mL Vitamin B12 Collection Time: 06/07/24 5:42 AM Result Value Ref Range Vitamin B-12 >1,500 (H) 180 - 914 pg/mL Iron and TIBC Collection Time: 06/07/24 5:42 AM Result Value Ref Range Iron 16 (L) 50 - 212 ug/dL Tibc-calc only do not order 336 250 - 425 ug/dL Iron Saturation 5 (L) 20 - 50 % SATURATION Ferritin Collection Time: 06/07/24 5:42 AM Result Value Ref Range Ferritin 41 24 - 336 ng/mL Folate Collection Time: 06/07/24 5:42 AM Result Value Ref Range Folate 22.7 >5.8 ng/mL Bilirubin, direct Collection Time: 06/07/24 5:42 AM Result Value Ref Range Bilirubin, direct 0.6 (H) 0.0 - 0.4 mg/dL Urinalysis Collection Time: 06/07/24 7:51 AM Result Value Ref Range Color YELLOW YELLOW^YELLOW Turbidity CLEAR CLEAR^CLEAR Specific gravity 1.011 1.003 - 1.035 Nitrite Negative Negative^Negative Ph urine 6.5 5.0 - 8.5 Leukocyte esterase Negative Negative^Negative Protein 30 (A) Negative^Negative mg/dL Glucose, Ur Negative Negative^Negative mg/dL Ketones urine Trace (A) Negative^Negative mg/dL Urobilinogen <1.1 <1.1 eu/dL Bilirubin, urine Negative Negative^Negative Hemoglobin Large (A) Negative^Negative Mucus, UA PRESENT (A) NONE^NONE RBC 158 (H) 0 - 5 /hpf WBC 2 0 - 5 /hpf Urine culture Collection Time: 06/07/24 7:51 AM Specimen: Urine Result Value Ref Range Culture NO GROWTH AT <1000 CFU/mL Drug Screen, Urine Collection Time: 06/07/24 7:51 AM Result Value Ref Range Amphetamine/methamphetamine Negative Negative^Negative Barbiturate Screen, Ur Negative Negative^Negative Benzodiazepine Screen, Urine Negative Negative^Negative THC, urine Positive (A) Negative^Negative Cocaine (metabolite) Negative Negative^Negative Opiate Quant, Ur Negative Negative^Negative Phencyclidine Negative Negative^Negative Oxycodone Negative Negative^Negative Methadone Negative Negative^Negative Ecstasy Negative Negative^Negative Bedside Glucose *Place/Obtain serum glucose if >500(>600 [facility]) per glucometer. Collection Time: 06/07/24 7:46 PM Result Value Ref Range Bedside glucose 86 65 - 99 mg/dL APTT Collection Time: 06/07/24 9:30 PM Result Value Ref Range aPTT 52 (H) 26 - 37 sec Magnesium Collection Time: 06/07/24 9:30 PM Result Value Ref Range Magnesium 2.7 (H) 1.8 - 2.6 mg/dL Potassium Collection Time: 06/07/24 9:30 PM Result Value Ref Range Potassium, Bld 3.2 (L) 3.5 - 5.0 mmol/L Anti XA unfractionated heparin Collection Time: 06/07/24 9:30 PM Result Value Ref Range Heparin anti-xa, unfractionated 0.14 (L) 0.30 - 0.70 IU/mL Hemoglobin Collection Time: 06/08/24 4:06 AM Result Value Ref Range Hemoglobin 11.3 (L) 13.0 - 17.0 g/dL Platelet count Collection Time: 06/08/24 4:06 AM Result Value Ref Range Platelets 277 150 - 450 X10E9/L MPV 8.7 7 - 12 fL Liver panel Collection Time: 06/08/24 4:06 AM Result Value Ref Range Alkaline phosphatase 65 39 - 130 U/L AST 31 0 - 41 U/L ALT 20 0 - 40 U/L Total Bilirubin 1.3 (H) 0.3 - 1.2 mg/dL Bilirubin, direct 0.5 (H) 0.0 - 0.4 mg/dL Albumin 2.9 (L) 3.2 - 5.3 g/dL Total Protein 5.7 (L) 6.0 - 8.0 g/dL Protime & INR Collection Time: 06/08/24 4:06 AM Result Value Ref Range Protime 13.9 (H) 9.8 - 13.2 sec Inr 1.2 (H) 0.8 - 1.1 APTT Collection Time: 06/08/24 4:06 AM Result Value Ref Range aPTT 80 (H) 26 - 37 sec Basic Metabolic Panel Collection Time: 06/08/24 4:06 AM Result Value Ref Range Sodium 146 134 - 146 mmol/L Potassium, Bld 3.4 (L) 3.5 - 5.0 mmol/L Chloride 107 98 - 109 mmol/L CO2 26 22 - 32 mmol/L Anion gap 13 5 - 15 mmol/L BUN 24 5 - 27 mg/dL Creatinine 1.58 (H) 0.60 - 1.30 mg/dL Glucose 117 (H) 65 - 99 mg/dL Calcium 8.3 (L) 8.5 - 10.5 mg/dL eGFR (CKD-EPI)non-race dependent 47 (L) >59 ml/min/1.73sq.m Magnesium Collection Time: 06/08/24 4:06 AM Result Value Ref Range Magnesium 2.5 1.8 - 2.6 mg/dL Hemoglobin A1c Collection Time: 06/08/24 4:06 AM Result Value Ref Range Hemoglobin A1C 5.9 (H) 4.4 - 5.6 % Average glucose 123 mg/dL Lipid profile Collection Time: 06/08/24 4:06 AM Result Value Ref Range Cholesterol 135 (L) 150 - 200 mg/dL Triglycerides 70 27 - 150 mg/dL HDL Cholesterol 25 (L) >39 mg/dL VLDL 14 0 - 30 mg/dL LDL (calc) 96 <130 mg/dL Cholesterol:HDL Ratio 5.4 (H) 1.0 - 5.0 APTT Collection Time: 06/08/24 10:20 AM Result Value Ref Range aPTT 38 (H) 26 - 37 sec Lab Review Results from last 7 days Lab Units 06/08/2440506/07/24 0542 WBC X10E9/L -- 6.4 HEMOGLOBIN g/dL 11.3* 10.9* HEMATOCRIT % -- 35.2* PLATELETS X10E9/L 277 259 MCV fL -- 73* Results from last 7 days Lab Units 06/08/2440506/07/24212906/07/24 0542 SODIUM mmol/L 146 -- 144 POTASSIUM mmol/L 3.4* 3.2* 3.3* CHLORIDE mmol/L 107 -- 106 CO2 mmol/L 26 -- 27 BUN mg/dL 24 -- 30* CREATININE mg/dL 1.58* -- 1.44* CALCIUM mg/dL 8.3* -- 8.6 ANION GAP mmol/L 13 -- 11 Results from last 7 days Lab Units 06/08/2440506/07/24194506/07/24 0542 BEDSIDE GLUCOSE mg/dL -- 86 -- GLUCOSE mg/dL 117* -- 91 Results from last 7 days Lab Units 06/08/2440506/07/24212906/07/24 0542 MAGNESIUM mg/dL 2.5 2.7* 1.5* CALCIUM mg/dL 8.3* -- 8.6 Results from last 7 days Lab Units 06/07/24 0542 IRON ug/dL 16* TIBC-CALC ONLY DO NOT ORDER ug/dL 336 FERRITIN ng/mL 41 Results from last 7 days Lab Units 06/08/2440506/07/24 0542 ALK PHOS U/L -- 60 AST U/L 31 29 ALT U/L 20 21 ALBUMIN g/dL 2.9* 2.9* Results from last 7 days Lab Units 06/07/24 0542 AMMONIA umol/L 32 Results from last 7 days Lab Units 06/08/2440506/07/24 0542 PROTIME sec 13.9* 15.5* INR 1.2* 1.3* Microbiology Results Procedure Component Value Units Date/Time Urine culture [[id number]] Collected: 06/07/24 0751 Specimen: Urine Updated: 06/08/24 0813 Culture NO GROWTH AT <1000 CFU/mL CT brain without contrast Result Date: 06/08/2024 CT OF THE HEAD WITHOUT CONTRAST INDICATION: Pain. Head trauma, moderate-severe COMPARISON: 06/07/2024 TECHNIQUE: CT was obtained of the head without contrast. FINDINGS: INTRACRANIAL: Stable configuration of the ventricles and sulci with mild to moderate volume loss. No mass effect or midline shift. Right occipital encephalomalacia/gliosis. Basal ganglial mineralization. Maintained lanier-white differentiation. Potential small lentiform fluid collections over the bifrontal regions somewhat less conspicuous than on prior; consider MRI follow-up. No convincing intracranial hemorrhage.. SOFT TISSUES and ORBITS: Orbits are unremarkable. Soft tissues within normal limits. CALVARIUM: No depressed calvarial fracture or suspicious lesion. SINUSES AND MASTOID AIR CELLS: Well aerated. IMPRESSION: No significant change from 06/07/2024.. See above. Consider MRI follow-up . All CT scans at this facility use dose modulation, iterative reconstruction, and/or weight based dosing when appropriate to reduce radiation dose to as low as reasonably achievable. Finalized by Zac Lewis MD on 06/08/2024 11:06 AM EEG Result Date: 06/07/2024 Images from the original result were not included. History This is a routine EEG in a patient with altered mental status. Procedure This is a standard digital EEG performed in the [employer] system and was reviewed with multiple reformattable montages Technical Description There is no well defined posterior dominant rhythm noted. The background is primarily composed of semirhythmical 20-40 uv delta and theta range frequencies. Semi rhythmical theta and delta range activity is intermixed with occasional beta activity noted over the frontal and central region. There is intermittent attenuation of the background frequencies but no clear state related changes are noted. Hyperventilation is deferred. Photic stimulation fails to elicit a sustained driving response. There is no evidence of definite epileptiform activity during this study Clinical Interpretation This EEG in the awake state is abnormal due to the presence of moderate to severe generalized background slowing suggestive of moderate to severe bi-hemispheric cerebral dysfunction that can be seen in post ictal states, metabolic, hypoxic or toxic encephalopathies, sedative medication use or primary neurological disorders. Bertha Oakley MD Educational Consultant Neurology/Neurophysiology [facility] CT brain without contrast Result Date: 06/07/2024 CT HEAD WITHOUT IV CONTRAST CLINICAL STATEMENT:Patient demonstrates some possible altered consciousness. Head trauma, minor (Age >= 65y); Fall in hospital, on heparin infusion Comparison study: 06/05/2024 TECHNIQUE: Axial views were obtained at 2.5 mm interval through the head without IV contrast. Automatic dose exposure reduction technique utilized. FINDINGS: The midline structures are not deviated. The ventricular system is prominent.. The lanier and white matter show periventricular white matter disease of a chronic nature with basal ganglia calcification noted. There is gliosis in the right posterior temporal region consistent with an old infarct. This extends to the occipital region. There are extra-axial fluid collections overlying the cerebral hemispheres that was not seen on the study from 2 days previous. These measure approximately 4 to 5 mm in maximum width without significant mass effect. The posterior fossa is unremarkable. No features of raised intracranial pressure.No acute intracranial bleed. The IACs are unremarkable. The cerebellopontine angles are unremarkable. The temporomandibular joints show no abnormality. The osseous structures in the skull base and in the calvarium show no definite abnormality. The orbits are normal. The paranasal sinuses are clear. The mastoid air cells are clear. IMPRESSION: Chronic small vessel white matter disease. 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 Bilateral subdural fluid collections/hygromas without significant mass effect. These could be part of idiopathic intracranial hypotension. All CT scans at this facility use dose modulation, iterative reconstruction, and/or weight based dosing when appropriate to reduce radiation dose to as low as reasonably achievable. Finalized by Gab Clay MD on 06/07/2024 10:01 PM MRCP with MRI abdomen without contrast Result Date: 06/07/2024 History: Recent with history of jaundice. Exam/Technique: Multiplanar, multisequence MR imaging is obtained of the MRCP and MRI abdomen without intravenous contrast. Routine multiplanar multisequence MR imaging of the abdomen was performed prior to and following uneventful administration of intravenous gadolinium contrast. M.R.C.P. was performed with 3-D volume rendered reformatted and maximum intesntiy projection rotational images for the evaluation of the pancreatic and biliary ductal system at the MR console. Comparison: CT abdomen pelvis dated 06/07/2024. Ultrasound abdomen dated 06/06/2024. Findings: Lack of IV contrast compromises detail. Motion artifact compromises detail. No evidence of fatty infiltration of the liver. No focal liver lesions. CBD not dilated and measures Bibasal pleural effusions. Body wall edema. Mesenteric edema noted. Generalized bone marrow signal is appropriate with degenerative changes. The gallbladder is distended and demonstrates a fluid sludge level. There is no clear evidence of biliary dilatation. There is no evidence of dilatation of the pancreatic duct. No obvious pancreatic mass. Cyst formation in the right kidneys. IMPRESSION: The examination is limited due to motion artifact and lack of contrast. There is significant edema of the mesenteric fat planes as well as significant pleural effusions. There is a no biliary duct dilatation but there is sludge in the gallbladder. No biliary duct dilatation. Finalized by Gab Clay MD on 06/07/2024 8:[address] abdomen and pelvis without contrast Result Date: 06/07/2024 CLINICAL INFORMATION: Abdominal pain radiating to the back, kidney stone suspected. TECHNIQUE: Abdominopelvic CT without contrast. All CT scans at this facility use dose modulation, iterative reconstruction, and/or weight based dosing when appropriate to reduce radiation dose to as low as reasonably achievable. COMPARISON: 07/19/2015. FINDINGS LOWER CHEST: Moderate bilateral pleural effusions with compressive atelectasis. Minor interstitial edema in the lung bases. Coronary artery calcifications. Cardiomegaly. HEPATOBILIARY: Unenhanced liver and gallbladder unremarkable. No biliary dilation. PANCREAS: Unenhanced pancreas unremarkable. No pancreatic ductal dilation. SPLEEN: The unenhanced spleen is within normal limits. ADRENAL GLANDS: The unenhanced adrenal glands are within normal limits. KIDNEYS, URETERS, AND BLADDER: Simple right interpolar renal cyst requires no follow-up. Hyperattenuating 1.6 cm left inferior pole renal cyst appears unchanged from prior. Extensive bilateral perinephric edema. No collecting system dilation or evidence of ureteral calculus. Urinary bladder decompressed by Arenas catheter. GI TRACT AND PERITONEUM: Small and large bowel are normal in caliber. Normal appendix. VASCULATURE: Abdominal aorta is nonaneurysmal. Aortoiliac calcifications are present. LYMPH NODES: Not enlarged. REPRODUCTIVE ORGANS: Prostate calcifications present. MSK: Degenerative changes throughout the spine. Partial osseous fusion across the sacroiliac joints. Mild diffuse edema in the body wall. IMPRESSION: * Moderate bilateral pleural effusions and mild interstitial edema in the lung bases. Additional findings of volume overload including mild body wall edema, retroperitoneal and presacral edema along with trace ascites. Approved by Resident Frederick Crump DO on 06/07/2024 9:47 AM Baldev Christina MD have personally reviewed the image(s) and agree with and/or edited the report Finalized by Baldev Hyde MD on 06/07/2024 10:07 AM This note was created with the assistance of a speech-recognition program. Although the intention is to generate a document that actually reflects the content of the visit, no guarantees can be provided that every mistake has been identified and corrected by editing. Electronically signed by: ROSELINE REYEZ MD, KRISTAL, FACP 06/08/2024 3:29 PM Preferred contact method: #1. Epic chat #2. [facility] team pager Available from 7 am to 7 pm Images from the original note were not included. Jr. Romero Gregor, M.D., Zac Jin M.D., Wilfred Lang M.D., Lizbeth Rader M.D., Melina Burks M.D., Tesfaye Bruno M.D., Sachin Cao M.D., Orlando Mora M.D, Florentino Ervin M.D. Hospital day: 1 Chief Complaint: Possible hydronephrosis, urinary retention Subjective: Patient presented to the hospital due to mental status changes. He was found to have elevated bilirubin. Ultrasound of the time showed possible right hydronephrosis. Urology was consulted for these findings. Patient underwent a CT scan at this hospital did not find any hydronephrosis. Arenas catheter is currently in place for an unknown volume. Patient was having little bit gross hematuria this morning likely secondary to pulling on catheter. He was slightly altered. Weight: 62.4 kg (137 lb 9.1 oz) Patient Vitals for the past 24 hrs: BP Temp Temp src Pulse Resp SpO2 06/08/24 0735 (!) 160/120 37.1 C (98.8 F) Oral 95 15 -- 06/08/24 0338 (!) 141/99 36.4 C (97.5 F) Oral 78 18 98 % 06/08/24 0335 (!) 141/98 -- -- 82 -- -- 06/07/24 2300 107/78 -- -- 105 -- -- 06/07/24 1935 (!) 135/94 -- -- 91 -- -- 06/07/24 1645 (!) 147/95 36.3 C (97.3 F) Oral 73 18 95 % 06/07/24 1132 (!) 153/115 36.5 C (97.7 F) Oral 81 17 99 % Intake/Output Summary (Last 24 hours) at 06/08/2024 0941 Last data filed at 06/08/2024 0735 Gross per 24 hour Intake -- Output 1450 ml Net -1450 ml Results from last 7 days Lab Units 06/07/24 21306/07/24 1946 06/07/24 0542 POTASSIUM mmol/L 3.2* -- 3.3* CHLORIDE mmol/L -- -- 106 CO2 mmol/L -- -- 27 BUN mg/dL -- -- 30* CREATININE mg/dL -- -- 1.44* BEDSIDE GLUCOSE mg/dL -- 86 -- GLUCOSE mg/dL -- -- 91 CALCIUM mg/dL -- -- 8.6 Results from last 7 days Lab Units 06/08/24 0406 06/07/24 0542 WBC X10E9/L -- 6.4 HEMOGLOBIN g/dL 11.3* 10.9* HEMATOCRIT % -- 35.2* PLATELETS X10E9/L 277 259 Lab Results Component Value Date SPECIFICGRA 1.011 06/07/2024 LEUKOCYTE Negative 06/07/2024 GLU 86 06/07/2024 UROBILINOGEN <1.1 06/07/2024 Additional Lab/culture results: Physical Exam: General: Altered Heart: Regular rate and rythym Lungs: Symmetric chest rise, normal work of breathing Abdomen: Soft, non tender, non distended, : Arenas in place Interval Imaging Findings: Impression: Patient is a 68-year-old male who presented to the hospital and altered mental status. He was found to have possible cholecystitis. Urology consulted for urinary retention 2 possible right-sided hydronephrosis. Patient's CT scan was negative for hydro. Arenas catheter in place for retention. Patient is currently altered and Arenas catheter remain in place until he was more alert and oriented. Plan: Maintain Arenas catheter Start Flomax Encourage ambulation Decrease opioids Recommend avoiding anticholinergic this can worsen urinary retention Would recommend continuing Arenas catheter until patient is more conversational in not altered. Please consult Urology on day of discharge for plans for Arenas catheter. COREY WADE MD Urology Resident, PGY-2 9:41 AM 06/08/2024 Cosigned by Lizbeth Horne MD at 06/09/2024 2:22 PM EST Associated attestation - Lizbeth Rader MD - 06/09/2024 2:22 PM EST I saw the patient. I participated and was physically present during the critical/leonardo portions of the service. I was directly involved in the management and treatment plan of the patient. I reviewed the resident s note. Additional Notes/ Findings: Continue Flomax, Arenas catheter. May have void trial prior to discharge. Images from the original note were not included. [facility] Neurology General Neurology Consultation Progress Note Consult Neurology Service: [phone] Primary Team: Howie Hospitalist Chief Concern and Reason for Consultation: Altered mental status Interval History: Johnathan Rodney is a 68 y.o. year old male for whom Neurology was consulted for chief concern of altered mental status. Patient has history of paroxysmal atrial fibrillation on Eliquis, hypertension, chronic HFrEF (EF of 40% in 04/2023), alcohol use disorder, hyperlipidemia, and medication noncompliance. Patient was initially evaluated at outside hospital by tele Neurology for concerns of altered mental status and hallucinations. Per chart review, patient was brought in by family due to concerns of confusion as well as 2 week history of hallucinations. It was reported that patient lived alone and it was unclear if patient was compliant with his medications. Per patient's daughter, the patient had visual hallucinations of spiders and the hallucinations were getting more severe. Patient was becoming more paranoid as well. Additionally, it was noted that patient would use alcohol daily as well as marijuana and cigarettes. Outside hospital CT head showed remote infarcts in the right frontal and right occipital lobe. MRI brain showed no acute infarcts. Patient was noted to be in AFib with RVR at the outside hospital. Additionally, abdominal ultrasound showed concerns for acute versus chronic cholecystitis. Patient was started on IV Rocephin and Flagyl. Tele neurology recommended that the patient be further evaluated by Neurology and consider LP for occult infection. Patient was transferred to [facility] for further evaluation. Overnight, no significant events happened. Patient received Rocephin and Flagyl. CIWA protocol was initiated concerning alcohol withdrawal. General surgery was consulted for cholecystitis, who recommended MRCP and GI consult. Urology was also consulted for urinary retention and hydronephrosis. Today, the patient is alert and awake. He is oriented to place and person, but not time. He doesn't have any visual hallucinations at this time. No new focal weakness, numbing, or tingling noted. Patient was not completely cooperative during the encounter. Pertinent past Medical History/Family/Social History reviewed as per initial HPI. Pertinent Systems reviewed as per initial HPI, and negative as below except for mentioned above. Medications: None Physical Exam Vital Signs: Vitals: 06/07/24 1132 BP: (!) 153/115 Pulse: 81 Resp: 17 Temp: 36.5 C (97.7 F) SpO2: 99% General: Normotensive, in no acute distress. Cardiac Examination: Heart: RRR, no murmurs, no rubs, no gallops. Carotids: No bruit Peripheral Vascular System: Peripheral pulses intact Neurological Examination: Higher Mental Function: Awake and alert. Oriented to person and place, but not time time. Patient appears to have lapses in retrograde memory. Speech is normal. Language is fluent with no aphasia. Attention and concentration are normal. Fund of knowledge is appropriate for level of education. Ophthalmological Examination: Clear conjunctiva, no cataracts. Cranial Nerve Examination: II: Normal tracking, no evidence of hemianopia or other visual field defect. III, IV, & : EOM intact, no ptosis, no nystagmus seen. Pupils are equal and reactive to light. V: Facial sensation is intact. VII: no facial asymmetry, facial movement intact. VIII: hearing is normal. IX-X: Palate elevates in the midline. XI: Normal trapezius strength and/or movement. XII: Tongue movement is normal, position is midline and no fasciculations are observed. Tongue strength intact. Motor: Power -- No focal motor weakness noted in BL upper or lower extremities. Bulk and muscle tone are intact in BL upper and lower extremities. No rigidity or spasticity. No atrophy or abnormal movements noted. No dystonia, or motor tics. No bradykinesia, postural or kinetic tremor noted. No fasciculation or myotonia noted. No abnormal movements noticed. No evidence of pseudo bulbar paralysis; no sialorrhea, difficulties swallowing. There were no tremors noted Deep Tendon Reflexes: Right, Left: Biceps 2, 2 Brachioradialis 2, 2 Patellae 2, 2 Achilles 2, 2 Plantar response was flexor bilaterally. No clonus or other pathological reflexes elicited. Sensory examination: Intact to light touch throughout. Cerebellar: Able to do [id number] bilaterally; normal coordination Gait and station: Deferred. Pertinent Labs: Results from last 7 days [facility] 06/07/24 0542 WBC X10E9/L 6.4 HEMOGLOBIN g/dL 10.9* HEMATOCRIT % 35.2* PLATELETS X10E9/L 259 Results from last 7 days Lab Units 06/07/24 0542 APTT sec 37 INR 1.3* Results from last 7 days Lab Units 06/07/24 0542 SODIUM mmol/L 144 POTASSIUM mmol/L 3.3* CHLORIDE mmol/L 106 CO2 mmol/L 27 BUN mg/dL 30* CREATININE mg/dL 1.44* CALCIUM mg/dL 8.6 MAGNESIUM mg/dL 1.5* Results from last 7 days Lab Units 06/07/24 0542 ALBUMIN g/dL 2.9* TOTAL PROTEIN g/dL 5.4* ALT U/L 21 AST U/L 29 ALK PHOS U/L 60 AMMONIA umol/L 32 Results from last 7 days Lab Units 06/07/24 0542 GLUCOSE mg/dL 91 No results found for: HGBA1C Results from last 7 days Lab Units 06/07/24 0542 VITAMIN B 12 pg/mL >1,500* FOLATE ng/mL 22.7 FERRITIN ng/mL 41 IRON ug/dL 16* TIBC-CALC ONLY DO NOT ORDER ug/dL 336 IRON SATURATION % SATURATION 5* Ammonia: 32 Imaging: CT brain without contrast (06/05/2024): remote infarcts in the right frontal and right occipital lobe. No acute findings. MRI brain without contrast (06/06/2024): No acute findings. Other Testing: None. Assessment: Johnathan Rodney is a 68 y.o. year old male who is admitted due to altered mental status and hallucinations. Patient has history of paroxysmal atrial fibrillation on Eliquis, primary hypertension, chronic HFrEF (EF of 40% in 04/2023), alcohol use disorder, hyperlipidemia, and medication noncompliance. CT head at outside hospital showed remote infarcts in the right frontal and right occipital lobe, but no acute intracranial findings. MRI brain from outside hospital showed no acute intracranial findings. Initial examination, patient was A&O x3 oriented to person, place, time but disoriented to situation as well as has some lapses and retrograde memory. Impression: Altered mental status secondary to metabolic encephalopathy versus delirium versus SYSTEM SPECIALIST infection versus seizure. 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 Plan: - Follow-up the EEG report. - We would observe the patient today and decide on a need for an LP tomorrow. - Start heparin infusion due to possible LP - Patient has been on aspirin. Would recommend resuming it tomorrow after the final decision on LP. -Start Lipitor 40 mg daily due to the previous stroke on the imaging. - Continue thiamine and CIWA protocol for possible alcohol withdrawal. - Start melatonin 5 mg nightly and Seroquel 25 mg nightly. -Recommend frequent orientation, avoiding narcotics and sedating medications, patient should try to stay awake during daytime, open blinds during the day time, and minimize sleep interruption at night. Keep the room quiet and restful. If patient wears prescription glasses, wear glasses when applicable. It may help to play soft, relaxing music. Get lots of rest, at least 8 hours each night. Use a nightlight to help get around safely at night. - Neurology will continue to follow. Shavonne Holbrook MD PGY-2 Internal Medicine Resident [facility] 06/07/24 12:21 PM Staffed with: Dr. Marie This patient is being followed by the Neurology Resident service. Contact attending directly during these hours: Monday to 7:30-8:30 A.M. to Monday 12-1:00 p.m. Primary Neurology service: [phone] Consult neurology service: [phone] Resident Stroke Service: [phone] If the patient belongs to the Stroke JAK service please contact the Stroke JAK directly. Cosigned by Catrina Marie MD at 06/07/2024 4:30 PM EST Associated attestation - Catrina Marie MD - 06/07/2024 4:30 PM EST I have discussed the case of Johnathan Rodney, including pertinent history and exam findings with the resident. I have seen and examined the patient and the leonardo elements of the encounter have been performed by me. I agree with the assessment, plan and orders as documented by the resident with changes made to the note as needed. Please refer to my attested note. Catrina Marie MD Neurology This note is created with the assistance of a speech-recognition program. While intending to generate a document that actually reflects the content of the visit, the document can still have some errors including those of syntax and sound a- like substitutions which may escape proofreading. In such instances, actual meaning can be extrapolated by contextual derivation. [facility] Department of Pharmacy Pharmacist to Physician Communication The dose of metronidazole has been changed per the [facility] approved temporary dosing guidelines, due to the drug continued drug shortage (adjusted from 500 mg IV every 8 hours to 500 mg IV every 12 hours). If you need additional information, please reach out to a pharmacist at [phone]. Thank you, Tatiana Garza [facility] documented in this encounter [facility] 06-11-2024 Plan of care note Problem: Pain Goal: Patient goal is pain score less than 4, able to rest, and participant in treatment plan as appropriate Description: INTERVENTIONS: 1. Encourage patient or legal arborist representative to report early pain and ask for pain medicine when needed 2. Assess pain using appropriate pain scale and include the scale used when documenting 3. Administer analgesics based on type and severity of pain and evaluate response within appropriate time frame 4. Implement non-pharmacological measures as appropriate and evaluate response 5. Consider cultural and social influences on pain and pain management 6. Notify LIP if interventions ineffective or patient reports new pain 7. Monitor vital signs including pulse ox, end-tidal CO2 based on pain intervention 8. Reassess pain per policy 9. Teach patient or legal arborist representative interventions for comforting Outcome: Progressing Note: Evaluation of progress towards goal: Patient encouraged to report pain on a scale from 1-10. PRN pain medications available Problem: Safety Goal: Patient will be injury free during hospitalization Description: INTERVENTIONS: 1. Assess patient's risk for falls and implement fall prevention plan of care per policy 2. Provide and maintain a safe environment 3. Proper use of double Identifiers 4. Medication administration using the 5 rights 5. Hand hygiene 6. Specimens are labeled at the bedside 7. Instruct patient/ patient arborist representative about use of safety devices 8. Include patient/ patient arborist representative in decisions related to safety Outcome: Progressing Note: Evaluation of progress towards goal: Safety precautions maintained. Bed alarm on, side rails up x2, call light within reach. Problem: Infection Goal: Absence of infection during hospitalization Description: INTERVENTIONS 1. Assess and monitor for signs and symptoms of infection. 2. Monitor lab/diagnostic results. 3. Monitor all insertion sites i.e., indwelling lines, tubes and drains. 4. Monitor endotracheal (as able) and nasal secretions for changes in amount and color. 5. Administer medications as ordered. 6. Instruct and encourage patient and family to use good hand hygiene technique. 7. Identify and instruct patient/patient arborist representative in use of appropriate isolation precautions for identified infection/symptoms. 8. Provide and discuss with patient/patient arborist representative on educational MDRO sheet. 9. Encourage and monitor nutritional status daily and consult senior oracle dba if indicated. 10. Implement neutropenic guidelines as needed. Outcome: Progressing Note: Evaluation of progress towards goal: Patient currently on IV antibiotics Problem: Knowledge Deficit Goal: Patient/patient arborist representative demonstrates understanding of disease process, treatment plan, medications, and discharge instructions Description: INTERVENTIONS 1. Complete learning assessment and assess knowledge base 2. Provide teaching at level of understanding 3. Provide teaching via preferred learning method(s) Outcome: Progressing Note: Evaluation of progress towards goal: Patient and daughter (Maame) educated on medications and plan of care. All question answered Problem: Discharge Planning Goal: Discharge to post-acute care, other facility, or home with appropriate resources Description: Patient's goal is: INTERVENTIONS 1. Conduct assessment to determine patient/family and health care team treatment goals, and need for post-acute services based on payer coverage, community resources, and patient preferences, and barriers to discharge 2. Coordinate with Social work, Care Navigation, and Utilization Review to arrange appropriate level of services according to patient's needs based on patient preference and payer coverage in collaboration with the physician and health care team 3. Address psychosocial, clinical, and financial barriers to discharge as identified in assessment in conjunction with the patient/family and health care team 4. Consult appropriate ancillary services (i.e.. PT/OT/ST, etc) as needed 5. Communicate with and update the patient/family, physician, and health care team regarding progress on the discharge plan 6. Identify discharge learning needs (meds, wound care, etc). 7. Arrange for needed discharge transportation as appropriate Outcome: Progressing Note: Evaluation of progress towards goal: Discharge plan is progressing. PT/OT recommend SNF. Problem: Potential for Compromised Skin Integrity Goal: Skin integrity is maintained or improved Description: Patient's goal is: INTERVENTIONS 1. Perform initial skin assessment on admission and as needed 2. Turn patient every 2 hours and PRN 3. Relieve pressure to bony prominences 4. Avoid shearing 5. Keep skin clean and dry 6. Alternate a full bath with partial baths for elderly 7. Apply lotion/moisturizer on skin 8. Monitor patient's hygiene practices 9. Float heels 10. Collaborate with interdisciplinary team and initiate plans and interventions as needed Outcome: Progressing Note: Evaluation of progress towards goal: Skin integrity is being maintained. Patient able to turn self Problem: Urinary Incontinence Goal: Perineal skin integrity is maintained or improved Description: INTERVENTIONS 1. Assess genitourinary system, perineal skin, labs (urinalysis), and history of incontinence to include past management, aggravating, and alleviating factors 2. Keep skin clean and dry 3. Apply skin protectant 4. Develop skin care regimen 5. Provide privacy when changing patients incontinence device to maintain their dignity 6. Consider placing an indwelling catheter 7. Collaborate with interdisciplinary team and initiate plans and interventions as needed Outcome: Progressing Note: Evaluation of progress towards goal: Patient perineal skin integrity is being maintained. [place] in place. Problem: Moderate - High Risk Fall Score Description: [place] Fall Score of =/> 25 or indicated by [facility] Assessment Goal: Patient should be free from fall Description: Interventions: 1. [place] to environment 2. Hourly rounds addressing the 4 P's (Pain, Positioning, Possessions, Potty) 3. Clear area of hazards (spills, clutter, electrical cords, unnecessary equipment) 4. Place equipment (bed & TV controls, call light, phone, urinal) within reach 5. Encourage patient to wear glasses and hearing aides as appropriate 6. Maintain bed in lowest position 7. Lock wheels on bed/wheelchair 8. Provide adequate lighting, including night light 9. Assess need for additional bedding, food/fluids, pain med's prior to sleep/routinely 10. Provide gripper slippers or personal non-skid footwear 11. Teach patient and patient arborist representative to maintain environment for safety and engage in all aspects of fall prevention program 12. Remind patient to call for help before getting out of bed 13. Initiate bed/chair/exit alarms supportive devices as appropriate, (chair wedge, no-skid floor mat, raised edge mattress, hip protectors) 14. Locate patient bed assignment for optimal visualization 15. Evaluate and identify Safe Patient Handling Equipment needs 16. Provide supervision when out of bed or chair 17. Utilize gait belt as needed to assist with ambulation 18. Place adaptive equipment (cane, walker) within reach 19. Request patient arborist representative bring adaptive equipment/mobility aids from home or obtain and provide as needed 20. Consult pharmacy regarding effects of med's affecting mobility, cognition, and alternatives 21. Obtain physician order for PT if risk factors associated with mobility are present 22. Obtain physician order for OT as appropriate 23. Utilize diversional activities 24. Educate patient and patient arborist representative how to maintain a safe environment during visitation times (notify nurse prior to leaving bedside) 25. Consider appropriateness of medical or non-medical front desk specialist 26. Set up voiding schedule as appropriate (every 2 hours) Outcome: Progressing Note: Evaluation of progress towards goal: Safety precautions in place. Bed alarm on, side rails up x2, call light within reach Problem: Neurological Deficit Goal: Neurological status is stable or improving Description: Patient's goal is: INTERVENTIONS 1. Complete Neurological assessment as indicated/ordered 2. Initiate measures to prevent increased intracranial pressure 3. Monitor and assess patient's level of consciousness, motor function, sensory function, and level of assistance needed for ADLs 4. Monitor and report changes from baseline 5. Maintain blood pressure and fluid volume within ordered parameters to optimize cerebral perfusion and minimize risk of hemorrhage 6. Monitor labs and diagnostic tests 7. Administer anti-seizure medications as ordered 8. Maintain airway, patient safety and administer oxygen as ordered 9. Monitor patient for seizure activity, document and report duration and description of seizure to LIP 10. If seizure occurs, turn patient to side and suction secretions as needed 11. Reorient patient post seizure 12. Seizure pads on all 4 side rails 13. Instruct patient/family to notify RN of any seizure activity 14. Instruct patient/family to call for assistance with activity based on assessment 15. Utilize bleeding precautions if thrombolytic given Outcome: Progressing Note: Evaluation of progress towards goal: neurological status is progressing. Neuro checks q4 Problem: Potential for Compromised Skin Integrity Goal: Patient's nutritional intake is adequate Description: Patient's goal is: INTERVENTIONS 1. Assess and monitor food intake and supplements, patient food preferences, nausea, vomiting, labs, oral cavity (gums, teeth, tongue, mucosa), proper denture fit, and cultural beliefs 2. Monitor for signs of hypoglycemia and hyperglycemia 3. Collaborate with interdisciplinary team and initiate plan and interventions as ordered 4. Monitor patient's weight 5. Assist patient with meals/food selection 6. Assist patient with eating 7. Allow adequate time for meals 8. Provide pleasant environment during mealtime 9. Increase social contact during mealtimes 10. Plan activities to conserve energy 11. Encourage/perform oral hygiene as appropriate 12. Encourage patient to take dietary supplement as ordered 13. Collaborate with clinical senior oracle dba 14. Include patient/ patient's arborist representative in decisions related to nutrition Outcome: Completed Note: Evaluation of progress towards goal: Nutritional intake is adequate [facility] 06-10-2024 Progress note Formatting of t his note might be different from the original. DISCHARGE PLANNING NOTE Case discussed in daily transition rounds and chart reviewed by CN. Barriers to discharge include urinary retention Discharge Plan remains: TBD. PT./OT recommending SNF. Social work met with patient to inform of therapy recommendations and SNF list provided. Patient stating that he will need to discuss this with his daughter but does not see why he cannot return home at discharge. Social work offering to contact daughter to inform of therapy recommendations but patient would not give permission. Wait patient decision regarding transition plan. Patient will not require precert for placement. CN will continue to follow and is available should any further needs arise. - MILLIE CALL 06/10/24 11:43 AM [facility] 06-10-2024 Plan of care note Problem: Pain Goal: Patient goal is pain score less than 4, able to rest, and participant in treatment plan as appropriate Description: INTERVENTIONS: 1. Encourage patient or legal arborist representative to report early pain and ask for pain medicine when needed 2. Assess pain using appropriate pain scale and include the scale used when documenting 3. Administer analgesics based on type and severity of pain and evaluate response within appropriate time frame 4. Implement non-pharmacological measures as appropriate and evaluate response 5. Consider cultural and social influences on pain and pain management 6. Notify LIP if interventions ineffective or patient reports new pain 7. Monitor vital signs including pulse ox, end-tidal CO2 based on pain intervention 8. Reassess pain per policy 9. Teach patient or legal arborist representative interventions for comforting Outcome: Progressing Note: Evaluation of progress towards goal: Patient denies pain when prompted. Will continue to monitor. Problem: Safety Goal: Patient will be injury free during hospitalization Description: INTERVENTIONS: 1. Assess patient's risk for falls and implement fall prevention plan of care per policy 2. Provide and maintain a safe environment 3. Proper use of double Identifiers 4. Medication administration using the 5 rights 5. Hand hygiene 6. Specimens are labeled at the bedside 7. Instruct patient/ patient arborist representative about use of safety devices 8. Include patient/ patient arborist representative in decisions related to safety Outcome: Progressing Note: Evaluation of progress towards goal: Patient has remained free from injury during their hospital stay. Skin integrity remains intact. Fall precautions are in place. Will continue to monitor. Problem: Infection Goal: Absence of infection during hospitalization Description: INTERVENTIONS 1. Assess and monitor for signs and symptoms of infection. 2. Monitor lab/diagnostic results. 3. Monitor all insertion sites i.e., indwelling lines, tubes and drains. 4. Monitor endotracheal (as able) and nasal secretions for changes in amount and color. 5. Administer medications as ordered. 6. Instruct and encourage patient and family to use good hand hygiene technique. 7. Identify and instruct patient/patient arborist representative in use of appropriate isolation precautions for identified infection/symptoms. 8. Provide and discuss with patient/patient arborist representative on educational MDRO sheet. 9. Encourage and monitor nutritional status daily and consult senior oracle dba if indicated. 10. Implement neutropenic guidelines as needed. Outcome: Progressing Note: Evaluation of progress towards goal: Patient has remained free from infection during hospital stay. Patient is afebrile and last WBC was 6.7. Will continue using standard precautions and monitoring for signs and symptoms of infection. Problem: Knowledge Deficit Goal: Patient/patient arborist representative demonstrates understanding of disease process, treatment plan, medications, and discharge instructions Description: INTERVENTIONS 1. Complete learning assessment and assess knowledge base 2. Provide teaching at level of understanding 3. Provide teaching via preferred learning method(s) Outcome: Progressing Note: Evaluation of progress towards goal: Patient and/or family has demonstrated appropriate knowledge regarding care plan, disease process, medications, and discharge planning. Will continue to engage and encourage questions. Problem: Discharge Planning Goal: Discharge to post-acute care, other facility, or home with appropriate resources Description: Patient's goal is: INTERVENTIONS 1. Conduct assessment to determine patient/family and health care team treatment goals, and need for post-acute services based on payer coverage, community resources, and patient preferences, and barriers to discharge 2. Coordinate with Social work, Care Navigation, and Utilization Review to arrange appropriate level of services according to patient's needs based on patient preference and payer coverage in collaboration with the physician and health care team 3. Address psychosocial, clinical, and financial barriers to discharge as identified in assessment in conjunction with the patient/family and health care team 4. Consult appropriate ancillary services (i.e.. PT/OT/ST, etc) as needed 5. Communicate with and update the patient/family, physician, and health care team regarding progress on the discharge plan 6. Identify discharge learning needs (meds, wound care, etc). 7. Arrange for needed discharge transportation as appropriate Outcome: Progressing Note: Evaluation of progress towards goal: Appropriate coordination with ancillary departments in place for acute care transition according to patient preference. Problem: Potential for Compromised Skin Integrity Goal: Skin integrity is maintained or improved Description: Patient's goal is: INTERVENTIONS 1. Perform initial skin assessment on admission and as needed 2. Turn patient every 2 hours and PRN 3. Relieve pressure to bony prominences 4. Avoid shearing 5. Keep skin clean and dry 6. Alternate a full bath with partial baths for elderly 7. Apply lotion/moisturizer on skin 8. Monitor patient's hygiene practices 9. Float heels 10. Collaborate with interdisciplinary team and initiate plans and interventions as needed Outcome: Progressing Note: Evaluation of progress towards goal: Patient's skin integrity has remained the same throughout this hospital stay. No new abnormalities have been reported. Will continue to assess bony prominences as well as other skin surfaces for potential shearing issues. Goal: Patient's nutritional intake is adequate Description: Patient's goal is: INTERVENTIONS 1. Assess and monitor food intake and supplements, patient food preferences, nausea, vomiting, labs, oral cavity (gums, teeth, tongue, mucosa), proper denture fit, and cultural beliefs 2. Monitor for signs of hypoglycemia and hyperglycemia 3. Collaborate with interdisciplinary team and initiate plan and interventions as ordered 4. Monitor patient's weight 5. Assist patient with meals/food selection 6. Assist patient with eating 7. Allow adequate time for meals 8. Provide pleasant environment during mealtime 9. Increase social contact during mealtimes 10. Plan activities to conserve energy 11. Encourage/perform oral hygiene as appropriate 12. Encourage patient to take dietary supplement as ordered 13. Collaborate with clinical senior oracle dba 14. Include patient/ patient's arborist representative in decisions related to nutrition Outcome: Progressing Note: Evaluation of progress towards goal: Patient appears to have adequate nutritional intake. Problem: Moderate - High Risk Fall Score Description: [place] Fall Score of =/> 25 or indicated by [facility] Assessment Goal: Patient should be free from fall Description: Interventions: 1. [place] to environment 2. Hourly rounds addressing the 4 P's (Pain, Positioning, Possessions, Potty) 3. Clear area of hazards (spills, clutter, electrical cords, unnecessary equipment) 4. Place equipment (bed & TV controls, call light, phone, urinal) within reach 5. Encourage patient to wear glasses and hearing aides as appropriate 6. Maintain bed in lowest position 7. Lock wheels on bed/wheelchair 8. Provide adequate lighting, including night light 9. Assess need for additional bedding, food/fluids, pain med's prior to sleep/routinely 10. Provide gripper slippers or personal non-skid footwear 11. Teach patient and patient arborist representative to maintain environment for safety and engage in all aspects of fall prevention program 12. Remind patient to call for help before getting out of bed 13. Initiate bed/chair/exit alarms supportive devices as appropriate, (chair wedge, no-skid floor mat, raised edge mattress, hip protectors) 14. Locate patient bed assignment for optimal visualization 15. Evaluate and identify Safe Patient Handling Equipment needs 16. Provide supervision when out of bed or chair 17. Utilize gait belt as needed to assist with ambulation 18. Place adaptive equipment (cane, walker) within reach 19. Request patient arborist representative bring adaptive equipment/mobility aids from home or obtain and provide as needed 20. Consult pharmacy regarding effects of med's affecting mobility, cognition, and alternatives 21. Obtain physician order for PT if risk factors associated with mobility are present 22. Obtain physician order for OT as appropriate 23. Utilize diversional activities 24. Educate patient and patient arborist representative how to maintain a safe environment during visitation times (notify nurse prior to leaving bedside) 25. Consider appropriateness of medical or non-medical front desk specialist 26. Set up voiding schedule as appropriate (every 2 hours) Outcome: Progressing Note: Evaluation of progress towards goal: Fall precautions are in place. Call light is within reach. Table and belonging are within reach at the bedside. Adequate lighting has been provided. Hourly rounding has been performed. Will continue to monitor. Problem: Neurological Deficit Goal: Neurological status is stable or improving Description: Patient's goal is: INTERVENTIONS 1. Complete Neurological assessment as indicated/ordered 2. Initiate measures to prevent increased intracranial pressure 3. Monitor and assess patient's level of consciousness, motor function, sensory function, and level of assistance needed for ADLs 4. Monitor and report changes from baseline 5. Maintain blood pressure and fluid volume within ordered parameters to optimize cerebral perfusion and minimize risk of hemorrhage 6. Monitor labs and diagnostic tests 7. Administer anti-seizure medications as ordered 8. Maintain airway, patient safety and administer oxygen as ordered 9. Monitor patient for seizure activity, document and report duration and description of seizure to LIP 10. If seizure occurs, turn patient to side and suction secretions as needed 11. Reorient patient post seizure 12. Seizure pads on all 4 side rails 13. Instruct patient/family to notify RN of any seizure activity 14. Instruct patient/family to call for assistance with activity based on assessment 15. Utilize bleeding precautions if thrombolytic given Outcome: Progressing Note: Evaluation of progress towards goal: Neurologic status remains stable. Monitoring and assessments are being performed as ordered by the prescriber. Fluid balance is being maintained to promote optimum cerebral perfusion. Cosigned by Rebecca Arredondo RN at 06/10/2024 11:38 AM EST Associated attestation - Rebecca Arredondo RN - 06/10/2024 11:38 AM EST RN agrees with care plans - Rebecca Arredondo RN 06/10/24 11:38 AM [facility] 06-10-2024 Nurse Note Summary: [place] Patients arenas was pulled on 06/09/24 at 1600. Voided a small amount but was still retaining 212 @2330. Orders from primary team (Maria Guadalupe Graham) to see if he would be able to void again and re bladder scan at 0300. Patient felt no urges to pee and was retaining 363. Orders from primary to put arenas catheter back in. However, myself and another nurse tried to place/advance the catheter, was meeting resistance and it kept coiling and would not advance. [employer] messaged person precision inspector for urology at 0521. Was not read, no response. Then paged urology at 0630. Waiting for response - Rola Burrell RN 06/10/24 6:37 AM [facility] 06-10-2024 Plan of care note Problem: Pain Goal: Patient goal is pain score less than 4, able to rest, and participant in treatment plan as appropriate Description: INTERVENTIONS: 1. Encourage patient or legal arborist representative to report early pain and ask for pain medicine when needed 2. Assess pain using appropriate pain scale and include the scale used when documenting 3. Administer analgesics based on type and severity of pain and evaluate response within appropriate time frame 4. Implement non-pharmacological measures as appropriate and evaluate response 5. Consider cultural and social influences on pain and pain management 6. Notify LIP if interventions ineffective or patient reports new pain 7. Monitor vital signs including pulse ox, end-tidal CO2 based on pain intervention 8. Reassess pain per policy 9. Teach patient or legal arborist representative interventions for comforting Outcome: Progressing Note: Evaluation of progress towards goal: Patient encouraged to report pain occurrence. Pain to be assessed using 0-10 scale. Pain control with scheduled & PRN pain medication. Pain to be reassessed with in an hour of intervention. Problem: Safety Goal: Patient will be injury free during hospitalization Description: INTERVENTIONS: 1. Assess patient's risk for falls and implement fall prevention plan of care per policy 2. Provide and maintain a safe environment 3. Proper use of double Identifiers 4. Medication administration using the 5 rights 5. Hand hygiene 6. Specimens are labeled at the bedside 7. Instruct patient/ patient arborist representative about use of safety devices 8. Include patient/ patient arborist representative in decisions related to safety Outcome: Progressing Note: Evaluation of progress towards goal: patient remains free from injury at this time. Safety precautions in place. Problem: Infection Goal: Absence of infection during hospitalization Description: INTERVENTIONS 1. Assess and monitor for signs and symptoms of infection. 2. Monitor lab/diagnostic results. 3. Monitor all insertion sites i.e., indwelling lines, tubes and drains. 4. Monitor endotracheal (as able) and nasal secretions for changes in amount and color. 5. Administer medications as ordered. 6. Instruct and encourage patient and family to use good hand hygiene technique. 7. Identify and instruct patient/patient arborist representative in use of appropriate isolation precautions for identified infection/symptoms. 8. Provide and discuss with patient/patient arborist representative on educational MDRO sheet. 9. Encourage and monitor nutritional status daily and consult senior oracle dba if indicated. 10. Implement neutropenic guidelines as needed. Outcome: Progressing Note: Evaluation of progress towards goal: Hospice Home Care Coordinator assessed pt risk for infection in the beginning and throughout shift. Pt remains afebrile. Will continue to monitor. Problem: Knowledge Deficit Goal: Patient/patient arborist representative demonstrates understanding of disease process, treatment plan, medications, and discharge instructions Description: INTERVENTIONS 1. Complete learning assessment and assess knowledge base 2. Provide teaching at level of understanding 3. Provide teaching via preferred learning method(s) Outcome: Progressing Note: Evaluation of progress towards goal: Hospice Home Care Coordinator educated pt on admission disease, medications, treatment, and discharge planning. Will continue to monitor. Problem: Discharge Planning Goal: Discharge to post-acute care, other facility, or home with appropriate resources Description: Patient's goal is: INTERVENTIONS 1. Conduct assessment to determine patient/family and health care team treatment goals, and need for post-acute services based on payer coverage, community resources, and patient preferences, and barriers to discharge 2. Coordinate with Social work, Care Navigation, and Utilization Review to arrange appropriate level of services according to patient's needs based on patient preference and payer coverage in collaboration with the physician and health care team 3. Address psychosocial, clinical, and financial barriers to discharge as identified in assessment in conjunction with the patient/family and health care team 4. Consult appropriate ancillary services (i.e.. PT/OT/ST, etc) as needed 5. Communicate with and update the patient/family, physician, and health care team regarding progress on the discharge plan 6. Identify discharge learning needs (meds, wound care, etc). 7. Arrange for needed discharge transportation as appropriate Outcome: Progressing Note: Evaluation of progress towards goal: daughter and patient informed of care and progression of stay, included in plan of care and discharge Problem: Potential for Compromised Skin Integrity Goal: Skin integrity is maintained or improved Description: Patient's goal is: INTERVENTIONS 1. Perform initial skin assessment on admission and as needed 2. Turn patient every 2 hours and PRN 3. Relieve pressure to bony prominences 4. Avoid shearing 5. Keep skin clean and dry 6. Alternate a full bath with partial baths for elderly 7. Apply lotion/moisturizer on skin 8. Monitor patient's hygiene practices 9. Float heels 10. Collaborate with interdisciplinary team and initiate plans and interventions as needed Outcome: Progressing Note: Evaluation of progress towards goal: patient is encouraged to reposition self, pillow support is provided Goal: Patient's nutritional intake is adequate Description: Patient's goal is: INTERVENTIONS 1. Assess and monitor food intake and supplements, patient food preferences, nausea, vomiting, labs, oral cavity (gums, teeth, tongue, mucosa), proper denture fit, and cultural beliefs 2. Monitor for signs of hypoglycemia and hyperglycemia 3. Collaborate with interdisciplinary team and initiate plan and interventions as ordered 4. Monitor patient's weight 5. Assist patient with meals/food selection 6. Assist patient with eating 7. Allow adequate time for meals 8. Provide pleasant environment during mealtime 9. Increase social contact during mealtimes 10. Plan activities to conserve energy 11. Encourage/perform oral hygiene as appropriate 12. Encourage patient to take dietary supplement as ordered 13. Collaborate with clinical senior oracle dba 14. Include patient/ patient's arborist representative in decisions related to nutrition Outcome: Progressing Note: Evaluation of progress towards goal: patient has adequate nutritional intake Problem: Urinary Incontinence Goal: Perineal skin integrity is maintained or improved Description: INTERVENTIONS 1. Assess genitourinary system, perineal skin, labs (urinalysis), and history of incontinence to include past management, aggravating, and alleviating factors 2. Keep skin clean and dry 3. Apply skin protectant 4. Develop skin care regimen 5. Provide privacy when changing patients incontinence device to maintain their dignity 6. Consider placing an indwelling catheter 7. Collaborate with interdisciplinary team and initiate plans and interventions as needed Outcome: Progressing Note: Evaluation of progress towards goal: patient arenas was removed today, bladder scanned per orders Problem: Moderate - High Risk Fall Score Description: Bustamante Fall Score of =/> 25 or indicated by [facility] Assessment Goal: Patient should be free from fall Description: Interventions: 1. [place] to environment 2. Hourly rounds addressing the 4 P's (Pain, Positioning, Possessions, Potty) 3. Clear area of hazards (spills, clutter, electrical cords, unnecessary equipment) 4. Place equipment (bed & TV controls, call light, phone, urinal) within reach 5. Encourage patient to wear glasses and hearing aides as appropriate 6. Maintain bed in lowest position 7. Lock wheels on bed/wheelchair 8. Provide adequate lighting, including night light 9. Assess need for additional bedding, food/fluids, pain med's prior to sleep/routinely 10. Provide gripper slippers or personal non-skid footwear 11. Teach patient and patient arborist representative to maintain environment for safety and engage in all aspects of fall prevention program 12. Remind patient to call for help before getting out of bed 13. Initiate bed/chair/exit alarms supportive devices as appropriate, (chair wedge, no-skid floor mat, raised edge mattress, hip protectors) 14. Locate patient bed assignment for optimal visualization 15. Evaluate and identify Safe Patient Handling Equipment needs 16. Provide supervision when out of bed or chair 17. Utilize gait belt as needed to assist with ambulation 18. Place adaptive equipment (cane, walker) within reach 19. Request patient arborist representative bring adaptive equipment/mobility aids from home or obtain and provide as needed 20. Consult pharmacy regarding effects of med's affecting mobility, cognition, and alternatives 21. Obtain physician order for PT if risk factors associated with mobility are present 22. Obtain physician order for OT as appropriate 23. Utilize diversional activities 24. Educate patient and patient arborist representative how to maintain a safe environment during visitation times (notify nurse prior to leaving bedside) 25. Consider appropriateness of medical or non-medical front desk specialist 26. Set up voiding schedule as appropriate (every 2 hours) Outcome: Progressing Note: Evaluation of progress towards goal: Hospice Home Care Coordinator assessed pt fall precautions in the beginning and throughout shift. Pt room left free of clutter, pt has all belongings and call light within reach. Will continue to monitor. Problem: Neurological Deficit Goal: Neurological status is stable or improving Description: Patient's goal is: INTERVENTIONS 1. Complete Neurological assessment as indicated/ordered 2. Initiate measures to prevent increased intracranial pressure 3. Monitor and assess patient's level of consciousness, motor function, sensory function, and level of assistance needed for ADLs 4. Monitor and report changes from baseline 5. Maintain blood pressure and fluid volume within ordered parameters to optimize cerebral perfusion and minimize risk of hemorrhage 6. Monitor labs and diagnostic tests 7. Administer anti-seizure medications as ordered 8. Maintain airway, patient safety and administer oxygen as ordered 9. Monitor patient for seizure activity, document and report duration and description of seizure to LIP 10. If seizure occurs, turn patient to side and suction secretions as needed 11. Reorient patient post seizure 12. Seizure pads on all 4 side rails 13. Instruct patient/family to notify RN of any seizure activity 14. Instruct patient/family to call for assistance with activity based on assessment 15. Utilize bleeding precautions if thrombolytic given Outcome: Progressing Note: Evaluation of progress towards goal: patients mentation waxes and wanes. Neuro assessments Q4 hrs. [facility] 06-09-2024 Plan of care note Problem: Pain Goal: Patient goal is pain score less than 4, able to rest, and participant in treatment plan as appropriate Description: INTERVENTIONS: 1. Encourage patient or legal arborist representative to report early pain and ask for pain medicine when needed 2. Assess pain using appropriate pain scale and include the scale used when documenting 3. Administer analgesics based on type and severity of pain and evaluate response within appropriate time frame 4. Implement non-pharmacological measures as appropriate and evaluate response 5. Consider cultural and social influences on pain and pain management 6. Notify LIP if interventions ineffective or patient reports new pain 7. Monitor vital signs including pulse ox, end-tidal CO2 based on pain intervention 8. Reassess pain per policy 9. Teach patient or legal arborist representative interventions for comforting Outcome: Progressing Note: Evaluation of progress towards goal: pt denied any pain Problem: Safety Goal: Patient will be injury free during hospitalization Description: INTERVENTIONS: 1. Assess patient's risk for falls and implement fall prevention plan of care per policy 2. Provide and maintain a safe environment 3. Proper use of double Identifiers 4. Medication administration using the 5 rights 5. Hand hygiene 6. Specimens are labeled at the bedside 7. Instruct patient/ patient arborist representative about use of safety devices 8. Include patient/ patient arborist representative in decisions related to safety Outcome: Progressing Note: Evaluation of progress towards goal: pt remained free of injury Problem: Infection Goal: Absence of infection during hospitalization Description: INTERVENTIONS 1. Assess and monitor for signs and symptoms of infection. 2. Monitor lab/diagnostic results. 3. Monitor all insertion sites i.e., indwelling lines, tubes and drains. 4. Monitor endotracheal (as able) and nasal secretions for changes in amount and color. 5. Administer medications as ordered. 6. Instruct and encourage patient and family to use good hand hygiene technique. 7. Identify and instruct patient/patient arborist representative in use of appropriate isolation precautions for identified infection/symptoms. 8. Provide and discuss with patient/patient arborist representative on educational MDRO sheet. 9. Encourage and monitor nutritional status daily and consult senior oracle dba if indicated. 10. Implement neutropenic guidelines as needed. Outcome: Progressing Note: Evaluation of progress towards goal: pt afebrile. Continued IV antibx Problem: Potential for Compromised Skin Integrity Goal: Skin integrity is maintained or improved Description: Patient's goal is: INTERVENTIONS 1. Perform initial skin assessment on admission and as needed 2. Turn patient every 2 hours and PRN 3. Relieve pressure to bony prominences 4. Avoid shearing 5. Keep skin clean and dry 6. Alternate a full bath with partial baths for elderly 7. Apply lotion/moisturizer on skin 8. Monitor patient's hygiene practices 9. Float heels 10. Collaborate with interdisciplinary team and initiate plans and interventions as needed Outcome: Progressing Note: Evaluation of progress towards goal: pillow support, turned self. Problem: Moderate - High Risk Fall Score Description: Bustamante Fall Score of =/> 25 or indicated by [facility] Assessment Goal: Patient should be free from fall Description: Interventions: 1. [place] to environment 2. Hourly rounds addressing the 4 P's (Pain, Positioning, Possessions, Potty) 3. Clear area of hazards (spills, clutter, electrical cords, unnecessary equipment) 4. Place equipment (bed & TV controls, call light, phone, urinal) within reach 5. Encourage patient to wear glasses and hearing aides as appropriate 6. Maintain bed in lowest position 7. Lock wheels on bed/wheelchair 8. Provide adequate lighting, including night light 9. Assess need for additional bedding, food/fluids, pain med's prior to sleep/routinely 10. Provide gripper slippers or personal non-skid footwear 11. Teach patient and patient arborist representative to maintain environment for safety and engage in all aspects of fall prevention program 12. Remind patient to call for help before getting out of bed 13. Initiate bed/chair/exit alarms supportive devices as appropriate, (chair wedge, no-skid floor mat, raised edge mattress, hip protectors) 14. Locate patient bed assignment for optimal visualization 15. Evaluate and identify Safe Patient Handling Equipment needs 16. Provide supervision when out of bed or chair 17. Utilize gait belt as needed to assist with ambulation 18. Place adaptive equipment (cane, walker) within reach 19. Request patient arborist representative bring adaptive equipment/mobility aids from home or obtain and provide as needed 20. Consult pharmacy regarding effects of med's affecting mobility, cognition, and alternatives 21. Obtain physician order for PT if risk factors associated with mobility are present 22. Obtain physician order for OT as appropriate 23. Utilize diversional activities 24. Educate patient and patient arborist representative how to maintain a safe environment during visitation times (notify nurse prior to leaving bedside) 25. Consider appropriateness of medical or non-medical front desk specialist 26. Set up voiding schedule as appropriate (every 2 hours) Outcome: Progressing Note: Evaluation of progress towards goal: fall precautions maintaind Problem: Neurological Deficit Goal: Neurological status is stable or improving Description: Patient's goal is: INTERVENTIONS 1. Complete Neurological assessment as indicated/ordered 2. Initiate measures to prevent increased intracranial pressure 3. Monitor and assess patient's level of consciousness, motor function, sensory function, and level of assistance needed for ADLs 4. Monitor and report changes from baseline 5. Maintain blood pressure and fluid volume within ordered parameters to optimize cerebral perfusion and minimize risk of hemorrhage 6. Monitor labs and diagnostic tests 7. Administer anti-seizure medications as ordered 8. Maintain airway, patient safety and administer oxygen as ordered 9. Monitor patient for seizure activity, document and report duration and description of seizure to LIP 10. If seizure occurs, turn patient to side and suction secretions as needed 11. Reorient patient post seizure 12. Seizure pads on all 4 side rails 13. Instruct patient/family to notify RN of any seizure activity 14. Instruct patient/family to call for assistance with activity based on assessment 15. Utilize bleeding precautions if thrombolytic given Outcome: Progressing Note: Evaluation of progress towards goal: wax/wane with mentation. Q4 neuros checked [facility] 06-09-2024 Progress note Formatting of t his note is different from the original. Occupational Therapy Evaluation Discharge Recommendations OT Recommendations : [facility]F Comments: Recommend SNF for continued therapy to reach PLOF. Pt at a high risk of falls and unsafe to return home alone. 6 Clicks: Daily Activity Putting on and taking off regular lower body clothing?: A lot Bathing (including washing, rinsing, drying)?: A little Toileting, which includes using toilet, bedpan or urinal?: A little Putting on and taking off regular upper body clothing?: A little Taking care of personal grooming such as brushing teeth?: A little Eating meals?: None Scoring Daily Activity Raw Score: 18 CMS G Code Modifier: CK Therapy Plan Need for skilled Occupational Therapy to address deficits in ADL independence and functional mobility due to a status decline resulting from encephalopathy. Pt is a 68 yo male admitted to an outside hospital 06/06/2024 with confusion and hallucinations. MRI brain: (-) acute infarct Abd US: concerns for acute vs chronic cholecystitis Pt experienced fall 06/07/2024. CT head showed B subdural fluid collection/hygromas without significant mass effect. Repeat MRI brain pending. Past Medical History: Diagnosis Date Abnormal EKG Atrial fibrillation ([facility]) Back pain Bradycardia Chronic atrial fibrillation ([facility]) Hypertension Hypertensive heart disease without heart failure Hypokalemia Pure hypercholesterolemia Urinary tract infection 01/2019 seen by [facility] No past surgical history on file. OT Treatment/Interventions: ADL retraining, Functional transfer training, UE strengthening/ROM, Endurance training, Cognitive reorientation, Patient/family training, Equipment eval/education, Home management, Balance, Bed mobility, Compensatory technique education, Functional activities OT Frequency: 2-3days/week (Increase frequency as patient if patient becomes more participatory) OT Duration: LOS Assessment Patient Assessment Therapy Problem List: Decreased ADL status, Decreased balance, Decreased cognition, Decreased endurance, Decreased high-level ADLs, Decreased mobility, Decreased safe judgement during ADL, Decreased self-care trans, Decreased UE strength Patient Response to Treatment: Tolerated evaluation without adverse reaction Mood/Affect: Blunted Rehab Prognosis: Fair, With continued OT status post acute discharge Visit RN Communication: Yes Medical Record Reviewed: Yes OT Type of Visit: Evaluation Precautions Activity: Activity as tolerated per early mobility guidelines Equipment: Gait belt, RW, arenas Telemetry/Furnace Keeper: Yes Oxygen Used: Room air Other: High fall risk, impulsive, h/o ETOH abuse, non-receptive to education on safety Pain Assessment Pain Assessment: No/denies pain Home Living Type of Home: Mobile home Home Layout: One level Stairs to Enter: 4 Hand Rails: None Stairs in Home: 0 Bathroom Shower/Tub: Tub/shower unit Bathroom Toilet: Standard Other : Pt not forthcoming with home information. Pt irritated with therapist's questions. Prior Function Lives With: Alone Receives Help From: Family Level of Mobility: Independent with ADLs and functional transfers or gait Homemaking Assistance: Independent ADL / IADL Hand Dominance: Right Eating Assistance: Independent Grooming Assistance: Min assist (standing) Bathing/Showering Assistance: Min assist Toilet/Commode Assistance: Mod assist UE Dressing Assistance: Min assist LE Dressing Assistance: Mod assist Footwear Assistance: Total assist Other: Pt donne gown at bedside with assistance to tie in back. Total assistance to don socks while supine. Home Management - IADL Other: Pt donne gown at bedside with assistance to tie in back. Total assistance to don socks while supine. Hearing / Speech / Vision Hearing: Within Functional Limits Speech: Within Functional Limits Current Vision: Wears glasses all the time Cognition Overall Cognitive Status: Exceptions to Within Functional Limits Attention Span: Difficulty attending to directions, Difficulty dividing attention Memory: Decreased recall of precautions Orientation Level: Oriented to person Following Commands: (Pt selectively following therapist's directions) Safety Judgment: Decreased awareness of need for safety, Decreased awareness of need for assistance Awareness of Errors: Assistance required to correct errors made, Assistance required to identify errors made Insight of Deficits: Not aware of deficits Problem Solving: Reduced Other: Pt cantankerous throughout evaluation. Frequently stating you're keeping secrets from me . Pt very irritable, not receptive to any education. Bed Mobility Supine to Sit: Stand by assist Other: Pt in chair following evaluation. Call light in reach and encouraged to call for assist. Chair alarm on. Transfers Sit to Stand: Standby assist Stand to Sit: Standby assist Other: Pt impulsively standing at bedside despite being attached to IV line, arenas, and telemetry. Gait Gait Assistance: Contact guard assist Assistive Device: Rolling walker Gait Distance: 50 ft Limiting Factors to Gait: Decreased safety, Cognition/difficulty following directions Other: Pt ambulated short distance in hallway. HR increased to 150-160 and pt unable to be redirected back to his room. RN brought chair to patient for safety. No major LOB. Balance Balance Evaluation: Exceptions to Functional Limits Sitting Balance: Static: Good Sitting Balance: Dynamic: Good Standing Balance: Static: Good Standing Balance: Dynamic: Fair RUE Assessment: (4/5 grossly) LUE Assessment: (4/5 grossly) Activity Tolerance Endurance: Tolerates <30 minutes activity WITHOUT vital sign changes Other: HR increased to 150-160 with ambulation Plan Occupational Therapy Care Plan Occupational Therapy Care Plan (Active) Template: OT - Occupational Therapy Problem: Activity Tolerance Dates: Start: 06/09/24 Disciplines: OT Goal: Tolerate > 30 minutes of activity WITH rest breaks Dates: Start: 06/09/24 Expected End: 07/07/24 Description: Goal Description: Disciplines: OT Problem: Bed Mobility Dates: Start: 06/09/24 Disciplines: OT Goal: Patient will perform bed mobility with Modified [place] Dates: Start: 06/09/24 Expected End: 07/07/24 Description: Goal Description: Disciplines: OT Problem: Cognition Dates: Start: 06/09/24 Disciplines: OT Goal: Patient's goal is: (specify details) Dates: Start: 06/09/24 Expected End: 07/07/24 Description: Pt will demonstrate good safety awareness 100% of the time Disciplines: OT Problem: Functional Mobility Dates: Start: 06/09/24 Disciplines: OT Goal: Patient will perform functional mobility with Modified [place] Dates: Start: 06/09/24 Expected End: 07/07/24 Description: Functional household distances Disciplines: OT Problem: Other (Customize) Dates: Start: 06/09/24 Disciplines: OT Goal: Improve Dates: Start: 06/09/24 Expected End: 07/07/24 Description: Perform ADL's with mod I Disciplines: OT Problem: Standing Balance Dates: Start: 06/09/24 Disciplines: OT Goal: Improve balance to good Dates: Start: 06/09/24 Expected End: 07/07/24 Description: 10 mins standing activity to increase tolerance for grooming at the sink Disciplines: OT Problem: Strength Dates: Start: 06/09/24 Disciplines: OT Goal: Improve strength Dates: Start: 06/09/24 Expected End: 07/07/24 Description: Tolerate BUE HEP to increase strength to 5/5 Disciplines: OT Problem: Transfers Dates: Start: 06/09/24 Disciplines: OT Goal: Patient will perform transfers with Modified [place] Dates: Start: 06/09/24 Expected End: 07/07/24 Description: Goal Description: Disciplines: OT Occupational Therapy Care Plan (Resolved) There are no resolved problems. Principal Problem: Acute encephalopathy [facility] 06-09-2024 Progress note Formatting of t his note is different from the original. Physical Therapy Evaluation Discharge Recommendations PT Recommendations: [facility]F Comments: pt will need SNF to maximize function and return pt to baseline level of independence 6 Clicks: Basic Mobility Turning from your back to your side while in a flat bed without using bed rails?: None Moving from lying on your back to sitting on side of flat bed without using bed rails?: None Moving to and from bed to a chair (including w/c)?: None Standing up from a chair using your arms (e.g. w/c or bedside chair)?: None To walk in hospital room?: A little Climbing 3-5 steps with a railing?: A little Scoring 6 Clicks: Basic Mobility Raw Score: 22 CMS G Code Modifier: CJ Therapy Plan Need for skilled Physical Therapy to address deficits in functional mobility due to a status decline resulting from admission 06/07/24 from [place] where he went with afib with RVR and altered mental status. MRI brain without acute findings but chronic infarct post R frontal lobe. Neuro stroke consulted and recommended transfer to [facility]. Diagnosed with acute encphalopathy, afib with RVR (resolved), alcohol use disorder with CIWA protocol, hyperbilirubinemia with consult to general surgery (no surgery indicated). Consult GI for cirrhosis and to f/u as outpatient. Urology consult for urinary retention. Fell in the night, hit head; CT with B subdural fluid collection/hygromas and neurosurgery consulted with no surgery indicated. No chief complaint on file. Past Medical History: Diagnosis Date Abnormal EKG Atrial fibrillation ([facility]) Back pain Bradycardia Chronic atrial fibrillation ([facility]) Hypertension Hypertensive heart disease without heart failure Hypokalemia Pure hypercholesterolemia Urinary tract infection 01/2019 seen by [facility] No past surgical history on file. PT Treatment/Interventions: Functional transfer training, Endurance training, Patient/family training, Balance, Bed mobility, Stair training, Gait training, Functional activities PT Frequency: 2-3days/week (increase as pt becomes more able to participate) PT Duration: LOS Patient Response to Treatment: Slow progress, medical status limitations Assessment Patient Assessment Therapy Problem List: Decreased balance, Decreased cognition, Decreased endurance, Decreased mobility Patient Response to Treatment: Slow progress, medical status limitations Mood/Affect: Impulsive (resistive) Rehab Prognosis: Fair, With continued PT status post acute discharge Visit RN Communication: Yes Medical Record Reviewed: Yes PT Type of Visit: Evaluation Precautions Activity: early mobility pass, OK per RN to see Equipment: RW, gait belt, catheter Telemetry/Furnace Keeper: Yes Oxygen Used: room air Other: pt is impulsive, does not follow therapist directions Pain Assessment Pain Assessment: No/denies pain Home Living Type of Home: Mobile home Home Layout: One level Stairs to Enter: 4 Hand Rails: None Bathroom Shower/Tub: Tub/shower unit Bathroom Toilet: Standard Other : unsure of home set up as pt did not answer many questions Prior Function Lives With: Alone Receives Help From: Family (supportive daughter) Level of Mobility: Independent with ADLs and functional transfers or gait Homemaking Assistance: Independent Other: pt reports no longer driving Hearing / Speech / Vision Hearing: Within Functional Limits Speech: Within Functional Limits Current Vision: Wears glasses all the time Cognition Overall Cognitive Status: Exceptions to Within Functional Limits Following Commands: Other (Comment) (inconsistent with following commands) Safety Judgment: Decreased awareness of need for assistance, Decreased awareness of need for safety Awareness of Errors: Decreased awareness of errors Insight of Deficits: Decreased awareness of deficits Problem Solving: Assistance required to identify errors made, Assistance required to generate solutions, Assistance required to implement solutions Interfering Components: Other (comment) (alcohol and drug use) Other: impulsive, pt's responses are inconsistent as he will say opposite things Bed Mobility Supine to Sit: Stand by assist Other: remains up in recliner with seat alarm, call light and items within reach, nurse aware Transfers Sit to Stand: Standby assist Stand to Sit: Standby assist Bed to Chair: Standby assist Other: pt was resistent with most activity; while standing, he performed back stretches into flex and ext, marched and flexed knees Gait Pattern: Decreased nj Gait Assistance: Contact guard assist Assistive Device: Rolling walker Gait Distance: 50ft Limiting Factors to Gait: Other (comment) (HR in 150's with ambulation; returned to room via recliner) Balance Sitting Balance: Static: Good Sitting Balance: Dynamic: Good Standing Balance: Static: Good (minus) Standing Balance: Dynamic: Fair (plus) RUE Assessment: (per OT) LUE Assessment: (per OT) RLE Assessment: Within Functional Limits LLE Assessment: Within Functional Limits Activity Tolerance Endurance: Tolerates <30 minutes activity with vital sign changes Other: HR increased to 150's with ambulation and pt returned to room via recliner; HR decreased with rest Plan Physical Therapy Care Plan Physical Therapy Care Plan (Active) Template: PT - Physical Therapy Problem: Activity Tolerance Dates: Start: 06/09/24 Disciplines: PT Goal: Tolerate > 30 minutes of activity WITH rest breaks Dates: Start: 06/09/24 Expected End: 06/23/24 Description: Goal Description: Disciplines: PT Problem: Bed Mobility Dates: Start: 06/09/24 Disciplines: PT Goal: Patient will perform bed mobility with Modified [place] Dates: Start: 06/09/24 Expected End: 06/23/24 Description: Goal Description: Disciplines: PT Problem: Gait Dates: Start: 06/09/24 Disciplines: PT Goal: Patient will perform gait with Modified [place] Dates: Start: 06/09/24 Expected End: 06/23/24 Description: With__RW__,__150__feet Goal Description: Disciplines: PT Problem: Stairs/Curb Dates: Start: 06/09/24 Disciplines: PT Goal: Patient will perform stairs/curb with Stand By Assist Dates: Start: 06/09/24 Expected End: 06/23/24 Description: __4___steps,___SBA Goal Description: Disciplines: PT Problem: Standing Balance Dates: Start: 06/09/24 Disciplines: PT Goal: Improve balance to good Dates: Start: 06/09/24 Expected End: 06/23/24 Description: Static Dynamic Disciplines: PT Problem: Transfers Dates: Start: 06/09/24 Disciplines: PT Goal: Patient will perform transfers with Modified [place] Dates: Start: 06/09/24 Expected End: 06/23/24 Description: Goal Description: Disciplines: PT Physical Therapy Care Plan (Resolved) There are no resolved problems. Principal Problem: Acute encephalopathy [facility] [employer] 06-09-2024 Progress note Formatting of t his note is different from the original. Query Response Note AUTOMATED QUERY TEXT: Stage of Chronic Kidney Disease: This query seeks further clarification of documentation to reflect all conditions that you are monitoring, evaluating, treating or that extend hospitalization or utilize additional resources. Please utilize your independent clinical judgment when addressing the question(s) below. Please provide further specificity, if known. Clinical indicators include: ckd, cr, bun, creatinine Options provided: -- Chronic kidney disease stage 1 -- Chronic kidney disease stage 2 -- Chronic kidney disease stage 3 -- Chronic kidney disease stage 3a -- Chronic kidney disease stage 3b -- Chronic kidney disease stage 4 -- Chronic kidney disease stage 5 -- Chronic kidney disease stage 5, requiring dialysis -- End stage renal disease -- Other - I will add my own diagnosis -- Dismiss - Not applicable / Not valid AUTOMATED QUERY RESPONSE TEXT: Provider dismissed this query because it was not applicable to the patient or not a valid query. defer to primary, not r/t GI Electronically signed by: Vira SILVESTRE 06/09/2024 9:07 AM [employer] Work Phone: 06-08-2024 Consult note Associated Order (s): IP CONSULT TO NEUROSURGERY Images from the original note were not included. [facility] [address] [place] [address], [address] [place] [address] * NEUROSURGERY CONSULT NOTE DATE:06/08/2024 PATIENT'S NAME: Johnathan Rodney PATIENT'S PATIENT'S : 1955 NEUROSURGERY ATTENDING: Cherise REASON FOR CONSULT Bilateral subdural fluid collections HISTORY OF PRESENT ILLNESS Johnathan Rodney is a 68 y.o. male who presented originally to [facility] on 06/07 for altered mental status and acute encephalopathy. He has a hx of Afib on eliquis, alcohol use disorder (daughter reports his drinking has decreased significantly and he averages about 2 cans of beer daily), and hyperbilirubinemia. Per daughter, he was found at home yesterday crawling on the floor with garbled speech. She also reports a 2 week history of hallucinations. His CT brain on arrival was negative for acute processes but did reveal possible old infarcts. Overnight, the patient attempted to get out of bed and struck his head. He was on a heparin drip at that time. No LOC reported. Neurosurgery was consulted due to CT findings demonstrating bilateral frontal subdural fluid collections. Upon exam, patient is awake and alert. He is oriented to person, place, and time. Would not answer why he was in the hospital. He is following commands appropriately and denies neck pain, PERDOMO, nausea, vomiting, numbness, tingling. ALLERGIES No Known Allergies MEDICATIONS Current Facility-Administered Medications: acetaminophen (TYLENOL) tablet 650 mg, 650 mg, oral, Q4H PRN, Aureliano Garduno DO amLODIPine (NORVASC) tablet 10 mg, 10 mg, oral, Daily, Roseline Reyez MD, 10 mg at 06/08/24 1216 atorvastatin (LIPITOR) tablet 40 mg, 40 mg, oral, Nightly, Shavonne Holbrook MD, 40 mg at 06/07/242012 carvediloL (COREG) tablet 12.5 mg, 12.5 mg, oral, BID, Roseline Reyez MD cefTRIAXone (ROCEPHIN) IVPB 1000 mg/50 mL in iso-osmotic dextrose (20 mg/mL premix), 1,000 mg, intravenous, Q24H, Aureliano Garduno DO, Stopped at 06/08/24 1202 dextrose (GLUTOSE) 40 % gel 15 g, 15 g, oral, PRN, Aureliano Garduno DO dextrose 5 % (D5W) infusion, 100 mL/hr, intravenous, Continuous PRN, Aureliano Garduno DO dextrose 50 % in water (D50W) 50% solution 25 mL, 25 mL, intravenous, PRN, Aureliano Garduno DO folic acid (FOLVITE) tablet 1 mg, 1 mg, oral, Daily, Aureliano Garduno DO, 1 mg at 06/08/24 0919 furosemide (LASIX) injection 40 mg, 40 mg, intravenous, Q12H, Roseline Reyez MD, 40 mg at 06/08/24 1032 glucagon HCL injection 1 mg, 1 mg, intramuscular, PRN, Aureliano Garduno DO lactulose (CHRONULAC) 20 gram/30 mL solution 20 g, 20 g, oral, BID, Roseline Reyez MD, 20 g at 06/07/242012 LORazepam (ATIVAN) tablet 1 mg, 1 mg, oral, Q4H PRN OR LORazepam (ATIVAN) injection 1 mg, 1 mg, intravenous, Q4H PRN OR LORazepam (ATIVAN) injection 1 mg, 1 mg, intramuscular, Q4H PRN, Roseline Reyez MD LORazepam (ATIVAN) tablet 2 mg, 2 mg, oral, Q4H PRN OR LORazepam (ATIVAN) injection 2 mg, 2 mg, intravenous, Q4H PRN OR LORazepam (ATIVAN) injection 2 mg, 2 mg, intramuscular, Q4H PRN, Roseline Reyez MD LORazepam (ATIVAN) tablet 3 mg, 3 mg, oral, Q4H PRN OR LORazepam (ATIVAN) injection 3 mg, 3 mg, intravenous, Q4H PRN OR LORazepam (ATIVAN) injection 3 mg, 3 mg, intramuscular, Q4H PRN, Roseline Reyez MD magnesium sulfate IVPB 2000 mg/50 mL in iso-osmotic water (40 mg/mL premix), 2,000 mg, intravenous, PRN, Aureliano Garduno DO, Stopped at 06/07/24 1411 magnesium sulfate IVPB 4000 mg/100 mL in iso-osmotic water (40 mg/mL premix), 4,000 mg, intravenous, PRN, Aureliano Garduno DO, Stopped at 06/07/24 1805 melatonin (CIRCADIN) tablet 5 mg, 5 mg, oral, Nightly, Shavonne Holbrook MD, 5 mg at 06/07/24 2013 metoprolol (LOPRESSOR) injection 5 mg, 5 mg, intravenous, Q6H PRN, Roseline Reyez MD, 5 mg at 06/08/24 1750 metroNIDAZOLE (FLAGYL) IVPB 500 mg/100 mL in iso-osmotic sodium chloride (5 mg/mL premix), 500 mg, intravenous, Q12H, Aureliano Garduno DO, Stopped at 06/08/24 1017 miuojewy-fpzm-QC-calcium &mins (THERAGRAN-M) 9 mg iron-400 mcg tablet 1 tablet, 1 tablet, oral, Daily PRN, Aureliano M Laureen, DO potassium chloride (K-TAB,KLOR-CON) CR tablet 20-40 mEq, 20-40 mEq, oral, PRN, 20 mEq at 06/08/24 1216 OR potassium chloride (KAYCIEL) 20 mEq/15 mL solution 20-40 mEq, 20-40 mEq, oral, PRN OR potassium chloride IVPB 10 mEq/100 mL in water (0.1 mEq/mL premix), 10 mEq, intravenous, PRN, Aureliano M Laureen, DO QUEtiapine (SEROquel) tablet 25 mg, 25 mg, oral, Nightly, Shavonne Holbrook MD, 25 mg at 06/07/242012 sodium chloride 0.9 % flush 3 mL, 3 mL, intravenous, PRN, Aureliano M Laureen, DO sodium chloride 0.9 % flush 3 mL, 3 mL, intravenous, Q12H TONY, Aureliano M Laureen, DO, 3 mL at 06/07/242020 sodium chloride 0.9 % flush bag, 25 mL, intravenous, PRN, Aureliano M Laureen, DO sodium chloride 0.9 % infusion, 20 mL/hr, intravenous, Continuous PRN, Aureliano M Laureen, DO tamsulosin (FLOMAX) 24 hr capsule 0.4 mg, 0.4 mg, oral, Nightly, Corey Wade MD thiamine HCl (VITAMIN B-1) tablet 100 mg, 100 mg, oral, Daily, Aureliano M Laureen, DO, 100 mg at 06/08/24 0918 PAST MEDICAL AND SURGICAL HISTORY Past Medical History: Diagnosis Date Abnormal EKG Atrial fibrillation (CMS-HCC) Back pain Bradycardia Chronic atrial fibrillation (CMS-HCC) Hypertension Hypertensive heart disease without heart failure Hypokalemia Pure hypercholesterolemia Urinary tract infection 01/2019 seen by [facility] No past surgical history on file. FAMILY HISTORY Family History Problem Relation Age of Onset No Known Problems Mother No Known Problems Father SOCIAL HISTORY Tobacco Use: denies Alcohol Use: daily- 2-3 beers Drug Use: THC Children: daughter REVIEW OF SYSTEMS A 14 point review of systems was negative other than that documented in the HPI. PHYSICAL EXAMINATION Temp: [36.4 C (97.5 F)-37.1 C (98.8 F)] 36.4 C (97.5 F) Pulse: [78-133] 131 Resp: [15-18] 18 BP: (107-176)/(78-124) 143/86 SpO2: [93 %-98 %] 98 % O2 Device: None (Room air) O2 Flow Rate (L/min): [0 L/min] 0 L/min The patient is in no acute distress. The patient is alert and oriented to person, place, time. The patient exhibits unlabored breathing and normal respirations . The patient's abdomen is distended and non-tender. Sclera white , atraumatic Oral mucous membranes pink/moist; no drainage from BL ears or nares. PERRL, EOMI, face symmetric, tongue midline, hears to finger rub bilaterally, symmetric shoulder shrug, facial sensation intact to light touch (V1, V2, V3). Motor examination is notable for 5/5 strength in all extremities throughout Sensory examination is intact to light touch and intact to pinprick. Proprioception is intact No pronator drift, no facial asymmetry. LABORATORY DATA Results from last 7 days Lab Units 06/08/24 1020 06/08/24 0406 06/07/24 2130 06/07/24 1946 06/07/24 0542 SODIUM mmol/L -- 146 -- -- 144 POTASSIUM mmol/L -- 3.4* 3.2* -- 3.3* CREATININE mg/dL -- 1.58* -- -- 1.44* BEDSIDE GLUCOSE mg/dL -- -- -- 86 -- GLUCOSE mg/dL -- 117* -- -- 91 CALCIUM mg/dL -- 8.3* -- -- 8.6 APTT sec 38* 80* 52* -- 37 INR -- 1.2* -- -- 1.3* WBC X10E9/L -- -- -- -- 6.4 HEMATOCRIT % -- -- -- -- 35.2* HEMOGLOBIN g/dL -- 11.3* -- -- 10.9* PLATELETS X10E9/L -- 277 -- -- [address] OF THE HEAD WITHOUT CONTRAST INDICATION: Pain. Head trauma, moderate-severe COMPARISON: 06/07/2024 TECHNIQUE: CT was obtained of the head without contrast. FINDINGS: INTRACRANIAL: Stable configuration of the ventricles and sulci with mild to moderate volume loss. No mass effect or midline shift. Right occipital encephalomalacia/gliosis. Basal ganglial mineralization. Maintained lanier-white differentiation. Potential small lentiform fluid collections over the bifrontal regions somewhat less conspicuous than on prior; consider MRI follow-up. No convincing intracranial hemorrhage.. SOFT TISSUES and ORBITS: Orbits are unremarkable. Soft tissues within normal limits. CALVARIUM: No depressed calvarial fracture or suspicious lesion. SINUSES AND MASTOID AIR CELLS: Well aerated. IMPRESSION: No significant change from 06/07/2024.. See above. Consider MRI follow-up . ASSESSMENT Small subdural fluid collections s/p fall on heparin drip Hx of Afib Altered mental status Right frontal and occipital infarcts PLAN - Imaging independently reviewed by Dr. Luong. No acute neurosurgical intervention warranted. - Heparin gtt stopped. Hold blood thinners. - repeat CT brain - Serial neuro checks - Maintain fall and delirium precautions - Recommend SBP goal < 140 - Recommend continued treatment of underlying metabolic conditions contributing to AMS by primary team and additional consultants - Neurosurgery will continue to follow [facility] Please contact via [employer] first then can utilize Patient touch/VoceraEdge if needed 06/08/24 8:03 PM To find out which JAK is on for the day please go to [employer] and use log in [employer] and search for [facility] (JAK and Phone Number is listed) - NIRMALA BEEBE 06/08/24 7:44 PM NIRMALA Beebe 06/08/242003 [email or web address] 06-08-2024 Consult note Associated Order (s): IP CONSULT TO NEUROSURGERY Images from the original note were not included. [facility] [address] [place] [address], [address] [place] [address] * NEUROSURGERY CONSULT NOTE DATE:06/08/2024 PATIENT'S NAME: Johnathan Rodney PATIENT'S PATIENT'S : 1955 NEUROSURGERY ATTENDING: Cherise REASON FOR CONSULT Bilateral subdural fluid collections HISTORY OF PRESENT ILLNESS Johnathan Rodney is a 68 y.o. male who presented originally to [facility] on 06/07 for altered mental status and acute encephalopathy. He has a hx of Afib on eliquis, alcohol use disorder (daughter reports his drinking has decreased significantly and he averages about 2 cans of beer daily), and hyperbilirubinemia. Per daughter, he was found at home yesterday crawling on the floor with garbled speech. She also reports a 2 week history of hallucinations. His CT brain on arrival was negative for acute processes but did reveal possible old infarcts. Overnight, the patient attempted to get out of bed and struck his head. He was on a heparin drip at that time. No LOC reported. Neurosurgery was consulted due to CT findings demonstrating bilateral frontal subdural fluid collections. Upon exam, patient is awake and alert. He is oriented to person, place, and time. Would not answer why he was in the hospital. He is following commands appropriately and denies neck pain, PERDOMO, nausea, vomiting, numbness, tingling. ALLERGIES No Known Allergies MEDICATIONS Current Facility-Administered Medications: acetaminophen (TYLENOL) tablet 650 mg, 650 mg, oral, Q4H PRN, Aureliano Garduno DO amLODIPine (NORVASC) tablet 10 mg, 10 mg, oral, Daily, Roseline Reyez MD, 10 mg at 06/08/241215 atorvastatin (LIPITOR) tablet 40 mg, 40 mg, oral, Nightly, Shavonne Holbrook MD, 40 mg at 06/07/242012 carvediloL (COREG) tablet 12.5 mg, 12.5 mg, oral, BID, Roseline Reyez MD cefTRIAXone (ROCEPHIN) IVPB 1000 mg/50 mL in iso-osmotic dextrose (20 mg/mL premix), 1,000 mg, intravenous, Q24H, Aureliano Garduno DO, Stopped at 06/08/24 1202 dextrose (GLUTOSE) 40 % gel 15 g, 15 g, oral, PRN, Aureliano Garduno DO dextrose 5 % (D5W) infusion, 100 mL/hr, intravenous, Continuous PRN, Aureliano Martinezs, DO dextrose 50 % in water (D50W) 50% solution 25 mL, 25 mL, intravenous, PRN, Aureliano Garduno DO folic acid (FOLVITE) tablet 1 mg, 1 mg, oral, Daily, Aureliano Garduno DO, 1 mg at 06/08/24 0919 furosemide (LASIX) injection 40 mg, 40 mg, intravenous, Q12H, Roseline Reyez MD, 40 mg at 06/08/24 1032 glucagon HCL injection 1 mg, 1 mg, intramuscular, PRN, Aureliano Martinezs, lactulose (CHRONULAC) 20 gram/30 mL solution 20 g, 20 g, oral, BID, Roseline Reyez MD, 20 g at 06/07/242012 LORazepam (ATIVAN) tablet 1 mg, 1 mg, oral, Q4H PRN OR LORazepam (ATIVAN) injection 1 mg, 1 mg, intravenous, Q4H PRN OR LORazepam (ATIVAN) injection 1 mg, 1 mg, intramuscular, Q4H PRN, Roseline Reyez MD LORazepam (ATIVAN) tablet 2 mg, 2 mg, oral, Q4H PRN OR LORazepam (ATIVAN) injection 2 mg, 2 mg, intravenous, Q4H PRN OR LORazepam (ATIVAN) injection 2 mg, 2 mg, intramuscular, Q4H PRN, Roseline Reyez MD LORazepam (ATIVAN) tablet 3 mg, 3 mg, oral, Q4H PRN OR LORazepam (ATIVAN) injection 3 mg, 3 mg, intravenous, Q4H PRN OR LORazepam (ATIVAN) injection 3 mg, 3 mg, intramuscular, Q4H PRN, Roseline Reyez MD magnesium sulfate IVPB 2000 mg/50 mL in iso-osmotic water (40 mg/mL premix), 2,000 mg, intravenous, PRN, Aureliano Martinezs, DO, Stopped at 06/07/24 1411 magnesium sulfate IVPB 4000 mg/100 mL in iso-osmotic water (40 mg/mL premix), 4,000 mg, intravenous, PRN, Aureliano M Laureen, DO, Stopped at 06/07/24 180 melatonin (CIRCADIN) tablet 5 mg, 5 mg, oral, Nightly, Shavonne Holbrook MD, 5 mg at 06/07/242012 metoprolol (LOPRESSOR) injection 5 mg, 5 mg, intravenous, Q6H PRN, Roseline Reyez MD, 5 mg at 06/08/24 1750 metroNIDAZOLE (FLAGYL) IVPB 500 mg/100 mL in iso-osmotic sodium chloride (5 mg/mL premix), 500 mg, intravenous, Q12H, Aureliano Wilson Abalos, DO, Stopped at 06/08/24 1017 bhbjkljl-gfdh-UZ-calcium &mins (THERAGRAN-M) 9 mg iron-400 mcg tablet 1 tablet, 1 tablet, oral, Daily PRN, Aureliano Wilson Abalos, DO potassium chloride (K-TAB,KLOR-CON) CR tablet 20-40 mEq, 20-40 mEq, oral, PRN, 20 mEq at 06/08/24 1216 OR potassium chloride (KAYCIEL) 20 mEq/15 mL solution 20-40 mEq, 20-40 mEq, oral, PRN OR potassium chloride IVPB 10 mEq/100 mL in water (0.1 mEq/mL premix), 10 mEq, intravenous, PRN, Aureliano Katie Laureen, DO QUEtiapine (SEROquel) tablet 25 mg, 25 mg, oral, Nightly, Shavonne Holbrook MD, 25 mg at 06/07/242012 sodium chloride 0.9 % flush 3 mL, 3 mL, intravenous, PRN, Aureliano Wilson Laureen, DO sodium chloride 0.9 % flush 3 mL, 3 mL, intravenous, Q12H TONY, Aureliano Wilson Abalos, DO, 3 mL at 06/07/242020 sodium chloride 0.9 % flush bag, 25 mL, intravenous, PRN, Aureliano Wilson Laureen, DO sodium chloride 0.9 % infusion, 20 mL/hr, intravenous, Continuous PRN, Aureliano Wilson Laureen, DO tamsulosin (FLOMAX) 24 hr capsule 0.4 mg, 0.4 mg, oral, Nightly, Corey Wade MD thiamine HCl (VITAMIN B-1) tablet 100 mg, 100 mg, oral, Daily, Aureliano Garduno , 100 mg at 06/08/24 0918 PAST MEDICAL AND SURGICAL HISTORY Past Medical History: Diagnosis Date Abnormal EKG Atrial fibrillation (CMS-HCC) Back pain Bradycardia Chronic atrial fibrillation (CMS-HCC) Hypertension Hypertensive heart disease without heart failure Hypokalemia Pure hypercholesterolemia Urinary tract infection 01/2019 seen by [facility] No past surgical history on file. FAMILY HISTORY Family History Problem Relation Age of Onset No Known Problems Mother No Known Problems Father SOCIAL HISTORY Tobacco Use: denies Alcohol Use: daily- 2-3 beers Drug Use: THC Children: daughter REVIEW OF SYSTEMS A 14 point review of systems was negative other than that documented in the HPI. PHYSICAL EXAMINATION Temp: [36.4 C (97.5 F)-37.1 C (98.8 F)] 36.4 C (97.5 F) Pulse: [78-133] 131 Resp: [15-18] 18 BP: (107-176)/(78-124) 143/86 SpO2: [93 %-98 %] 98 % O2 Device: None (Room air) O2 Flow Rate (L/min): [0 L/min] 0 L/min The patient is in no acute distress. The patient is alert and oriented to person, place, time. The patient exhibits unlabored breathing and normal respirations . The patient's abdomen is distended and non-tender. Sclera white , atraumatic Oral mucous membranes pink/moist; no drainage from BL ears or nares. PERRL, EOMI, face symmetric, tongue midline, hears to finger rub bilaterally, symmetric shoulder shrug, facial sensation intact to light touch (V1, V2, V3). Motor examination is notable for 5/5 strength in all extremities throughout Sensory examination is intact to light touch and intact to pinprick. Proprioception is intact No pronator drift, no facial asymmetry. LABORATORY DATA Results from last 7 days Lab Units 06/08/24 1020 06/08/24 0406 06/07/24 2130 06/07/24 1946 06/07/24 0542 SODIUM mmol/L -- 146 -- -- 144 POTASSIUM mmol/L -- 3.4* 3.2* -- 3.3* CREATININE mg/dL -- 1.58* -- -- 1.44* BEDSIDE GLUCOSE mg/dL -- -- -- 86 -- GLUCOSE mg/dL -- 117* -- -- 91 CALCIUM mg/dL -- 8.3* -- -- 8.6 APTT sec 38* 80* 52* -- 37 INR -- 1.2* -- -- 1.3* WBC X10E9/L -- -- -- -- 6.4 HEMATOCRIT % -- -- -- -- 35.2* HEMOGLOBIN g/dL -- 11.3* -- -- 10.9* PLATELETS X10E9/L -- 277 -- -- [address] OF THE HEAD WITHOUT CONTRAST INDICATION: Pain. Head trauma, moderate-severe COMPARISON: 06/07/2024 TECHNIQUE: CT was obtained of the head without contrast. FINDINGS: INTRACRANIAL: Stable configuration of the ventricles and sulci with mild to moderate volume loss. No mass effect or midline shift. Right occipital encephalomalacia/gliosis. Basal ganglial mineralization. Maintained lanier-white differentiation. Potential small lentiform fluid collections over the bifrontal regions somewhat less conspicuous than on prior; consider MRI follow-up. No convincing intracranial hemorrhage.. SOFT TISSUES and ORBITS: Orbits are unremarkable. Soft tissues within normal limits. CALVARIUM: No depressed calvarial fracture or suspicious lesion. SINUSES AND MASTOID AIR CELLS: Well aerated. IMPRESSION: No significant change from 06/07/2024.. See above. Consider MRI follow-up . ASSESSMENT Small subdural fluid collections s/p fall on heparin drip Hx of Afib Altered mental status Right frontal and occipital infarcts PLAN - Imaging independently reviewed by Dr. Luong. No acute neurosurgical intervention warranted. - Heparin gtt stopped. Hold blood thinners. - repeat CT brain - Serial neuro checks - Maintain fall and delirium precautions - Recommend SBP goal < 140 - Recommend continued treatment of underlying metabolic conditions contributing to AMS by primary team and additional consultants - Neurosurgery will continue to follow NABILA Julio- [facility] Please contact via [employer] first then can utilize Patient touch/[employer]oc[employer]Edge if needed 06/08/24 8:03 PM To find out which JAK is on for the day please go to [employer] and use log in [employer] and search for [facility] (JAK and Phone Number is listed) - NIRMALA BEEBE 06/08/24 7:44 PM NIRMALA Beebe 06/08/242003 Associated Order(s): IP CONSULT TO UROLOGY Images from the original note were not included. Urology Consultation Patient: Johnathan Rodney Date of : 1955 CHIEF COMPLAINT: right hydronephrosis HISTORY OF PRESENT ILLNESS: The patient is a 68 y.o. male who presents as a transfer in from [facility]. Paper records available in hard chart. Here for continued MS changes. Also a.fib with RVR, RADHA (cr 2.1), elevated bili and AST and abdominal u/s showing right hydronephrosis and possible acute vs chronic cholecystitis. From a urology standpoint arenas catheter is in place for reported urinary retention. No documented bladder scan or output when arenas was placed to confirm retention. Patient says he believes very little drained when arenas was placed. Was not having any obstructive voiding symptoms at home. Says he did have gross hematuria with a UTI that was treated about a month ago. He is on Eliquis at home. Denies any abdominal pain, no LUTS. According to [place] records, the family says he reportedly had some abdominal pain when he came in. Denies ever seeing a urologist, no hx of nephrolithiasis in the past. Patient's old records, notes and chart reviewed and summarized above. Past Medical History: Past Medical History: Diagnosis Date Abnormal EKG Atrial fibrillation ([facility]-HCC) Back pain Bradycardia Chronic atrial fibrillation ([facility]-HCC) Hypertension Hypertensive heart disease without heart failure Hypokalemia Pure hypercholesterolemia Urinary tract infection 01/2019 seen by [facility] Past Surgical History: No past surgical history on file. Medications: Scheduled Meds: cefTRIAXone (ROCEPHIN) IV, 1,000 mg, intravenous, Q24H folic acid, 1 mg, oral, Daily metroNIDAZOLE, 500 mg, intravenous, Q12H sodium chloride, 3 mL, intravenous, Q12H TONY thiamine HCl, 100 mg, oral, Daily Continuous Infusions: dextrose 5 % in water, 100 mL/hr sodium chloride 0.9 %, 20 mL/hr PRN Meds:. acetaminophen dextrose dextrose 5 % in water dextrose 50 % in water (D50W) glucagon (human recombinant) LORazepam OR LORazepam OR LORazepam LORazepam OR LORazepam OR LORazepam LORazepam OR LORazepam OR LORazepam LORazepam OR LORazepam OR LORazepam magnesium sulfate magnesium sulfate ypaxqjvt-qkgy-HS-calcium &mins potassium chloride OR potassium chloride OR potassium chloride IV (Adult) sodium chloride sodium chloride sodium chloride 0.9 % Allergies: Patient has no known allergies. Social History: Social History Socioeconomic History Marital status: Spouse name: Not on file Number of children: Not on file Years of education: Not on file Highest education level: Not on file Occupational History Not on file Tobacco Use Smoking status: Former Smokeless tobacco: Never Substance and Sexual Activity Alcohol use: Yes Alcohol/week: 7.0 standard drinks of alcohol Types: 7 Cans of beer per week Drug use: No Sexual activity: Not on file Other Topics Concern Caffeine Use Yes Social History Narrative Not on file Social Drivers of Health Financial Resource Strain: Not on file Food Insecurity: Patient Unable To Answer (06/07/2024) Hunger Screening Food Insecurity - Worry: Patient unable to answer Food Insecurity - Inability: Patient unable to answer Transportation Needs: Patient Unable To Answer (06/07/2024) PRAPARE - Transportation Lack of Transportation (Medical): Patient unable to answer Lack of Transportation (Non-Medical): Patient unable to answer Physical Activity: Not on file Stress: Not on file Social Connections: Not on file Interpersonal Safety: Patient Unable To Answer (06/07/2024) Humiliation, Afraid, Rape, and Kick questionnaire Fear of Current or Ex-Partner: Patient unable to answer Emotionally Abused: Patient unable to answer Physically Abused: Patient unable to answer Sexually Abused: Patient unable to answer Housing Instability: Patient Unable To Answer (06/07/2024) Housing Instability Housing Instability: Patient unable to answer Family History: Family History Problem Relation Age of Onset No Known Problems Mother No Known Problems Father REVIEW OF SYSTEMS: Review of Systems All other systems are reviewed and are negative except as noted. Physical Exam: This a 68 y.o. male Patient Vitals for the past 24 hrs: BP Temp Temp src Pulse Resp SpO2 Height Weight 06/07/24 0925 -- -- -- -- -- -- 182.9 cm (6') -- 06/07/24 0804 (!) 155/107 -- Oral 75 19 97 % -- -- 06/07/24 0728 (!) 155/107 -- Oral 81 19 96 % -- -- 06/07/24 0533 -- -- -- -- -- -- -- 62.4 kg (137 lb 9.1 oz) 06/07/24524 122/86 36.6 C (97.9 F) Oral 73 19 97 % -- -- Constitutional: Patient in no acute distress. Neuro: Alert and oriented to person and place. Psych: mood and affect agitated HEENT negative Lungs: Respiratory effort is normal, non labored Cardiovascular: Normal rate Abdomen: Soft, non-tender, non-distended with no CVAT or flank pain Lymphatics: No palpable lymphadenopathy. Bladder non-tender and not distended. : circumcised phallus, [address] draining clear yellow urine. Rectal exam not indicated LABS: Results from last 7 days Lab Units 06/07/24 0542 POTASSIUM mmol/L 3.3* CHLORIDE mmol/L 106 CO2 mmol/L 27 BUN mg/dL 30* CREATININE mg/dL 1.44* CALCIUM mg/dL 8.6 Results from last 7 days Lab Units 06/07/24 0542 WBC X10E9/L 6.4 HEMOGLOBIN g/dL 10.9* HEMATOCRIT % 35.2* PLATELETS X10E9/L 259 Additional Lab/culture results: Urinalysis: Component Latest Ref Rng 06/07/2024 Color YELLOW^YELLOW YELLOW Turbidity CLEAR^CLEAR CLEAR Specific gravity 1.003 - 1.035 1.011 Nitrite Negative^Negative Negative Ph urine 5.0 - 8.5 6.5 Leukocyte esterase Negative^Negative Negative Protein Negative^Negative mg/dL 30 ! Glucose, urine Negative^Negative mg/dL Negative Ketones urine Negative^Negative mg/dL Trace ! Urobilinogen <1.1 eu/dL <1.1 Bilirubin, urine Negative^Negative Negative Hemoglobin Negative^Negative Large ! Mucus, UA NONE^NONE PRESENT ! RBC 0 - 5 /hpf 158 (H) WBC 0 - 5 /hpf 2 Legend: ! Abnormal (H) High Imaging Results: Media Information Document Information Photos/Images Abd U/s report impression from Nadia 06/07/2024 08:12 Attached To: Hospital Encounter on 06/07/24 Source Information [facility] Acute Document History Assessment and Plan Impression: 68 yom -Reported urinary retention -Right hydronephrosis -Hx of uti with gross hematuria -Anticoagulated at home, on hold for now Follow up Plan: -Start Flomax -Ct a/p stone protocal to further evaluate right hydronephrosis -Monitor for gross hematuria -f/u on urine cx -Discuss with Dr. Jin covering days KRYSTYNA Mendoza 06/07/2442 Cosigned by Zac Jin MD at 06/10/2024 2:41 PM EST Associated Order(s): IP CONSULT TO GASTROENTEROLOGY [facility] Initial Gastroenterology/Hepatology Consultation Note IDENTIFYING DATA PATIENT: Johnathan Rodney ADMIT DATE: 06/07/2024 TIME OF EVALUATION: 06/07/2024 8:45 AM Reason for Consult: eval for cirrhosis Requesting Physician: Shawanda Yañez HISTORY OF PRESENT ILLNESS Johnathan Rodney is a 68 y.o. male with a PMH of AFib on Eliquis, HTN, CKD, chronic systolic HF, heavy alcohol use, marijuana use admitted with encephalopathy after presenting to [facility] with altered mental status and hallucinations. Patient denies abdominal pain, nausea, vomiting, diarrhea, constipation or overt GI bleeding. Gets occasional heartburn. Denies any dysphagia. States he drinks 1-2 cans of beer but not every day. Uses marijuana and smokes tobacco. Denies ever being told that he had liver problems. No prior EGD or colonoscopy. No family at bedside, patient is a poor historian GI HISTORY SUMMARY TABLE Last EGD none Last colonoscopy none Primary GI physician PAST MEDICAL, SURGICAL, FAMILY, and SOCIAL HISTORY Past Medical History: Diagnosis Date Abnormal EKG Atrial fibrillation (CMS-HCC) Back pain Bradycardia Chronic atrial fibrillation (CMS-HCC) Hypertension Hypertensive heart disease without heart failure Hypokalemia Pure hypercholesterolemia Urinary tract infection 01/2019 seen by [facility] No past surgical history on file. Family History Problem Relation Age of Onset No Known Problems Mother No Known Problems Father Social History: Social History Tobacco Use Smoking status: Former Smokeless tobacco: Never Substance Use Topics Alcohol use: Yes Alcohol/week: 7.0 standard drinks of alcohol Types: 7 Cans of beer per week Drug use: No MEDICATIONS Allergies: No Known Allergies Medications Prior to Admission Medication Sig Dispense Refill Last Dose/Taking amLODIPine (NORVASC) 10 mg tablet TAKE 1 TABLET BY MOUTH EVERY DAY 90 tablet 1 Past Week apixaban (ELIQUIS) 5 mg tablet Take 1 tablet (5 mg total) by mouth every 12 (twelve) hours. 180 tablet 3 Past Week aspirin 81 mg Take 1 tablet (81 mg total) by mouth in the morning. Past Week hydrALAZINE (APRESOLINE) 100 mg tablet TAKE 1 TABLET (100 MG TOTAL) BY MOUTH 3 (THREE) TIMES A DAY. 270 tablet 3 Past Week labetaloL (NORMODYNE) 200 mg tablet Take 2 tablets (400 mg total) by mouth in the morning and 2 tablets (400 mg total) before bedtime. 120 tablet 5 Past Week olmesartan (BENICAR) 40 mg tablet Take 1 tablet (40 mg total) by mouth daily. 30 tablet 5 Past Week potassium chloride (K-TAB,KLOR-CON) 10 MEQ CR tablet TAKE 2 TABLETS BY MOUTH EVERY DAY 180 tablet 1 Past Week Current Medications: Current Facility-Administered Medications: acetaminophen (TYLENOL) tablet 650 mg, 650 mg, oral, Q4H PRN, Aureliano Garduno DO cefTRIAXone (ROCEPHIN) IVPB 1000 mg/50 mL in iso-osmotic dextrose (20 mg/mL premix), 1,000 mg, intravenous, Q24H, Aureliano M Laureen, DO dextrose (GLUTOSE) 40 % gel 15 g, 15 g, oral, PRN, Aureliano Martinezs, DO dextrose 5 % (D5W) infusion, 100 mL/hr, intravenous, Continuous PRN, Aureliano Garduno, DO dextrose 50 % in water (D50W) 50% solution 25 mL, 25 mL, intravenous, PRN, Aureliano Martinezs, DO folic acid (FOLVITE) tablet 1 mg, 1 mg, oral, Daily, Aureliano Martinezs, DO glucagon HCL injection 1 mg, 1 mg, intramuscular, PRN, Aureliano Martinezs, DO LORazepam (ATIVAN) tablet 1 mg, 1 mg, oral, Q1H PRN OR LORazepam (ATIVAN) injection 1 mg, 1 mg, intravenous, Q1H PRN OR LORazepam (ATIVAN) injection 1 mg, 1 mg, intramuscular, Q1H PRN, Aureliano Garduno, DO LORazepam (ATIVAN) tablet 2 mg, 2 mg, oral, Q1H PRN OR LORazepam (ATIVAN) injection 2 mg, 2 mg, intravenous, Q1H PRN OR LORazepam (ATIVAN) injection 2 mg, 2 mg, intramuscular, Q1H PRN, Aureliano Martinezs, DO LORazepam (ATIVAN) tablet 3 mg, 3 mg, oral, Q1H PRN OR LORazepam (ATIVAN) injection 3 mg, 3 mg, intravenous, Q1H PRN OR LORazepam (ATIVAN) injection 3 mg, 3 mg, intramuscular, Q1H PRNAureliano, DO LORazepam (ATIVAN) tablet 4 mg, 4 mg, oral, Q1H PRN OR LORazepam (ATIVAN) injection 4 mg, 4 mg, intravenous, Q1H PRN OR LORazepam (ATIVAN) injection 4 mg, 4 mg, intramuscular, Q1H PRNAurelianos, DO magnesium sulfate IVPB 2000 mg/50 mL in iso-osmotic water (40 mg/mL premix), 2,000 mg, intravenous, PRN, Aureliano Martinezs, DO magnesium sulfate IVPB 4000 mg/100 mL in iso-osmotic water (40 mg/mL premix), 4,000 mg, intravenous, PRN, Aureliano M Laureen, DO metroNIDAZOLE (FLAGYL) IVPB 500 mg/100 mL in iso-osmotic sodium chloride (5 mg/mL premix), 500 mg, intravenous, Q12H, Aureliano M Laureen, DO, Stopped at 06/07/24 0733 ggrlkolv-lwsk-WF-calcium &mins (THERAGRAN-M) 9 mg iron-400 mcg tablet 1 tablet, 1 tablet, oral, Daily PRN, Aureliano M Laureen, DO potassium chloride (K-TAB,KLOR-CON) CR tablet 20-40 mEq, 20-40 mEq, oral, PRN OR potassium chloride (KAYCIEL) 20 mEq/15 mL solution 20-40 mEq, 20-40 mEq, oral, PRN OR potassium chloride IVPB 10 mEq/100 mL in water (0.1 mEq/mL premix), 10 mEq, intravenous, PRN, Aureliano M Laureen, DO sodium chloride 0.9 % flush 3 mL, 3 mL, intravenous, PRN, Aureliano M Laureen, DO sodium chloride 0.9 % flush 3 mL, 3 mL, intravenous, Q12H TONY, Aureliano M Laureen, DO sodium chloride 0.9 % flush bag, 25 mL, intravenous, PRN, Aureliano M Laureen, DO sodium chloride 0.9 % infusion, 20 mL/hr, intravenous, Continuous PRN, Aureliano M Laureen, DO thiamine HCl (VITAMIN B-1) tablet 100 mg, 100 mg, oral, Daily, Aureliano M Laureen, DO, 100 mg at 06/07/24 0634 PRNs: acetaminophen, 650 mg, Q4H PRN dextrose, 15 g, PRN dextrose 5 % in water, 100 mL/hr, Continuous PRN dextrose 50 % in water (D50W), 25 mL, PRN glucagon (human recombinant), 1 mg, PRN LORazepam, 1 mg, Q1H PRN Or LORazepam, 1 mg, Q1H PRN Or LORazepam, 1 mg, Q1H PRN LORazepam, 2 mg, Q1H PRN Or LORazepam, 2 mg, Q1H PRN Or LORazepam, 2 mg, Q1H PRN LORazepam, 3 mg, Q1H PRN Or LORazepam, 3 mg, Q1H PRN Or LORazepam, 3 mg, Q1H PRN LORazepam, 4 mg, Q1H PRN Or LORazepam, 4 mg, Q1H PRN Or LORazepam, 4 mg, Q1H PRN magnesium sulfate, 2,000 mg, PRN magnesium sulfate, 4,000 mg, PRN ncyhrakd-vrkh-UG-calcium &mins, 1 tablet, Daily PRN potassium chloride, 20-40 mEq, PRN Or potassium chloride, 20-40 mEq, PRN Or potassium chloride IV (Adult), 10 mEq, PRN sodium chloride, 3 mL, PRN sodium chloride, 25 mL, PRN sodium chloride 0.9 %, 20 mL/hr, Continuous PRN REVIEW OF SYSTEMS See HPI, otherwise ROS negative as below CONSTITUTIONAL: negative HEENT: negative RESPIRATORY: negative CARDIOVASCULAR: negative GASTROINTESTINAL: as in HPI GENITOURINARY: negative INTEGUMENT/BREAST: negative HEMATOLOGIC/LYMPHATIC: negative ALLERGIC/IMMUNOLOGIC: negative ENDOCRINE: negative MUSCULOSKELETAL: negative NEUROLOGICAL: negative BEHAVIOR/PSYCH: negative OBJECTIVE DATA Vitals: BP (!) 155/107 Pulse 75 Temp 36.6 C (97.9 F) (Oral) Resp 19 Wt 62.4 kg (137 lb 9.1 oz) SpO2 97% BMI 18.66 kg/m GEN: alert and oriented to self, does not know year, knows he is at hospital but thinks he is still in [facility] HEENT: Normocephlic, Atraumatic, No sclera icterus CV: RRR, no murmur, rub, gallop, no edema PULM: clear anteriorly ABD: +Bowel sounds, soft, non-tender, non-distended, no palpable masses SKIN: Warm, dry, no jaundice appreciated LABS AND IMAGING Recent Results (from the past 48 hours) CBC auto differential Collection Time: 06/07/24 5:42 AM Result Value Ref Range White Blood Cells 6.4 4.0 - 11.0 X10E9/L RBC count 4.84 4.10 - 5.70 X10E12/L Hemoglobin 10.9 (L) 13.0 - 17.0 g/dL Hematocrit 35.2 (L) 39 - 49 % MCV 73 (L) 80 - 100 fL MCH 22.6 (L) 27 - 34 pg MCHC 31.1 (L) 32 - 36 g/dL RDW 23.8 (H) 11.5 - 15.0 % Platelets 259 150 - 450 X10E9/L MPV 8.7 7 - 12 fL % neutrophils 89.0 % % lymphocytes 3.0 % % monocytes 5.2 % % eosinophils 1.0 % % Basophils 1.8 % Neutrophils Absolute (A) 5.7 1.5 - 6.6 X10E9/L Lymphocytes Absolute 0.2 (L) 1.0 - 3.5 X10E9/L Monocytes Absolute 0.3 0 - 0.9 X10E9/L Eosinophils Absolute 0.1 0.0 - 0.4 X10E9/L Basophils Absolute 0.1 0.0 - 0.2 X10E9/L Anisocytosis 2+ (A) NONE^NONE Hypochromia 1+ (A) NONE^NONE Ovalocytes 2+ (A) NONE^NONE Comprehensive metabolic panel Collection Time: 06/07/24 5:42 AM Result Value Ref Range Sodium 144 134 - 146 mmol/L Potassium, Bld 3.3 (L) 3.5 - 5.0 mmol/L Chloride 106 98 - 109 mmol/L CO2 27 22 - 32 mmol/L Anion gap 11 5 - 15 mmol/L BUN 30 (H) 5 - 27 mg/dL Creatinine 1.44 (H) 0.60 - 1.30 mg/dL Glucose 91 65 - 99 mg/dL Calcium 8.6 8.5 - 10.5 mg/dL Total Protein 5.4 (L) 6.0 - 8.0 g/dL Albumin 2.9 (L) 3.2 - 5.3 g/dL Alkaline Phosphatase 60 39 - 130 U/L AST 29 0 - 41 U/L ALT 21 0 - 40 U/L Total bilirubin 1.6 (H) 0.3 - 1.2 mg/dL eGFR (CKD-EPI)non-race dependent 53 (L) >59 ml/min/1.73sq.m Magnesium Collection Time: 06/07/24 5:42 AM Result Value Ref Range Magnesium 1.5 (L) 1.8 - 2.6 mg/dL Thyroid profile includes TSH FT4 Collection Time: 06/07/24 5:42 AM Result Value Ref Range TSH 2.40 0.49 - 4.67 uIU/mL T4, free 1.08 0.61 - 1.60 ng/dL Protime & INR Collection Time: 06/07/24 5:42 AM Result Value Ref Range Protime 15.5 (H) 9.8 - 13.2 sec Inr 1.3 (H) 0.8 - 1.1 APTT Collection Time: 06/07/24 5:42 AM Result Value Ref Range aPTT 37 26 - 37 sec Ammonia Collection Time: 06/07/24 5:42 AM Result Value Ref Range Ammonia 32 18 - 72 umol/L Urinalysis Collection Time: 06/07/24 7:51 AM Result Value Ref Range Color YELLOW YELLOW^YELLOW Turbidity CLEAR CLEAR^CLEAR Specific gravity 1.011 1.003 - 1.035 Nitrite Negative Negative^Negative Ph urine 6.5 5.0 - 8.5 Leukocyte esterase Negative Negative^Negative Protein 30 (A) Negative^Negative mg/dL Glucose, Ur Negative Negative^Negative mg/dL Ketones urine Trace (A) Negative^Negative mg/dL Urobilinogen <1.1 <1.1 eu/dL Bilirubin, urine Negative Negative^Negative Hemoglobin Large (A) Negative^Negative Mucus, UA PRESENT (A) NONE^NONE RBC 158 (H) 0 - 5 /hpf WBC 2 0 - 5 /hpf IMAGING: Abdominal US at [place] on 06/06/2024- showed normal liver ASSESSMENT AND PLAN Johnathan Rodney is a 68 y.o. male with a PMH of AFib on Eliquis, HTN, CKD, chronic systolic HF, heavy alcohol use, marijuana use admitted with encephalopathy after presenting to [facility] with altered mental status and hallucinations. Reported hx heavy alcohol use, concern for possible cirrhosis - liver appeared normal on ultrasound from outside hospital - platelet count is normal - INR elevated which may be related to poor nutrition - albumin low which may be related to poor nutrition, acute illness - overall picture vague in regards to cirrhosis evaluation Elevated bilirubin - general surgery following for concern of acute versus chronic cholecystitis on outside hospital imaging, CBD was 2.9 mm Microcytic anemia Encephalopathy with mild asterixis, neurology following PLAN Follow-up acute hepatitis panel Fractionate bilirubin Follow liver panel/INR Follow up MRCP that was ordered by surgery Alcohol cessation recommended Check anemia labs Start lactulose Consider outpatient endoscopy pending anemia workup This consult was discussed with the attending physician. If you have any questions or need any further information, please feel free to contact the GI Consult Service. Thank you for allowing us to participate in the care of Johnathan Rodney. NIRMALA Smith [facility] [place] [id number] PH: [phone] NIRMALA Jara 06/07/24 1316 NIRMALA Jara 06/07/24 1316 Attending Attestation: Level of Participation Examined and discussed the patient with JAK Agreement I agree with the JAK's management. Attending Note I reviewed the JAK'sdocumentation and agree with the findings, assessment and plan Richardson Brandt D.O. [facility] [address] [address] PH: [phone] Associated Order(s): IP CONSULT TO GENERAL SURGERY Images from the original note were not included. General Surgery C CONSULTATION NOTE Patient Name: Johnathan Rodney Admit Date: 06/07/2024 Length of Stay: 0 Days Admitting Physician: Matthew Philippe MD Consult: Acute v Chronic Cholecystitis, Hyperbilirubinemia History of Present Illness: Johnathan Rodney is a 68 y.o.male with a PMH of CHF 50%, Afib on Eliquis, daily alcohol and marijuana use who was transferred to [facility] from [facility] for encephalopathy with questionable hallucination, and hyperbilirubinemia. General surgery consulted for GBUS findings of acute vs. chronic cholecystitis. Pt notes that he does not go to the doctor whenever possible, and admits to not adhering to his medication regimen except for the Eliquis. He is confused as to why he is here, and is A&O to person and place, but not time. Per RN, pt was sent to OSH by his daughter who noted that his words were jumbled a few days prior. He notes that he drinks 2 tall boys a day, but later says that he gets 6-packs of beer and goes fishing often. He also admits to daily use of marijuana for his arthritis. There is no family at bedside and HPI is limited given that the patient is a poor historian. Upon questioning about any postprandial or abdominal pain, pt denies ever experiencing these symptoms. He does note occasional right-sided back pain when he goes to urinate. Denies nausea, vomiting, fever, and chills. He is notably jaundiced and with scleral icterus. Denies any prior surgeries or current tobacco use. Review of Systems Constitutional: Negative for fever, chills, diaphoresis, appetite change and fatigue. Respiratory: Negative for cough, chest tightness and shortness of breath. Cardiovascular: Positive for leg swelling. Negative for chest pain. Gastrointestinal: Negative for nausea, vomiting, abdominal pain, diarrhea and constipation. Genitourinary: Negative for dysuria, frequency and difficulty urinating. Musculoskeletal: Positive for back pain. Negative for myalgias and arthralgias. Skin: Positive for color change. Negative for rash and wound. Neurological: Negative for dizziness, light-headedness, numbness and headaches. Past Medical History: Diagnosis Date Abnormal EKG Atrial fibrillation ([facility]) Back pain Bradycardia Chronic atrial fibrillation ([facility]) Hypertension Hypertensive heart disease without heart failure Hypokalemia Pure hypercholesterolemia Urinary tract infection 01/2019 seen by [facility] No past surgical history on file. No Known Allergies Current Facility-Administered Medications: acetaminophen (TYLENOL) tablet 650 mg, 650 mg, oral, Q4H PRN, Aureliano Garduno, DO cefTRIAXone (ROCEPHIN) IVPB 1000 mg/50 mL in iso-osmotic dextrose (20 mg/mL premix), 1,000 mg, intravenous, Q24H, Aureliano Garduno, DO dextrose (GLUTOSE) 40 % gel 15 g, 15 g, oral, PRN, Aureliano Martinezs, DO dextrose 5 % (D5W) infusion, 100 mL/hr, intravenous, Continuous PRN, Aureliano Garduno, DO dextrose 50 % in water (D50W) 50% solution 25 mL, 25 mL, intravenous, PRN, Aureliano Katie Laureen, DO folic acid (FOLVITE) tablet 1 mg, 1 mg, oral, Daily, Aureliano Katie Laureen, DO glucagon HCL injection 1 mg, 1 mg, intramuscular, PRN, Aureliano M Laureen, DO LORazepam (ATIVAN) tablet 1 mg, 1 mg, oral, Q1H PRN OR LORazepam (ATIVAN) injection 1 mg, 1 mg, intravenous, Q1H PRN OR LORazepam (ATIVAN) injection 1 mg, 1 mg, intramuscular, Q1H PRN, Aureliano M Laureen, DO LORazepam (ATIVAN) tablet 2 mg, 2 mg, oral, Q1H PRN OR LORazepam (ATIVAN) injection 2 mg, 2 mg, intravenous, Q1H PRN OR LORazepam (ATIVAN) injection 2 mg, 2 mg, intramuscular, Q1H PRN, Aureliano Katie NgLaureen, DO LORazepam (ATIVAN) tablet 3 mg, 3 mg, oral, Q1H PRN OR LORazepam (ATIVAN) injection 3 mg, 3 mg, intravenous, Q1H PRN OR LORazepam (ATIVAN) injection 3 mg, 3 mg, intramuscular, Q1H PRN, Aureliano Katie Laureen, DO LORazepam (ATIVAN) tablet 4 mg, 4 mg, oral, Q1H PRN OR LORazepam (ATIVAN) injection 4 mg, 4 mg, intravenous, Q1H PRN OR LORazepam (ATIVAN) injection 4 mg, 4 mg, intramuscular, Q1H PRN, Aureliano Wilson Laureen, DO magnesium sulfate IVPB 2000 mg/50 mL in iso-osmotic water (40 mg/mL premix), 2,000 mg, intravenous, PRN, Aureliano M Laureen, DO magnesium sulfate IVPB 4000 mg/100 mL in iso-osmotic water (40 mg/mL premix), 4,000 mg, intravenous, PRN, Aureliano M Laureen, DO metroNIDAZOLE (FLAGYL) IVPB 500 mg/100 mL in iso-osmotic sodium chloride (5 mg/mL premix), 500 mg, intravenous, Q12H, Aureliano M Laureen, DO, Stopped at 06/07/24 0733 xohnaaky-rahz-HC-calcium &mins (THERAGRAN-M) 9 mg iron-400 mcg tablet 1 tablet, 1 tablet, oral, Daily PRN, Aureliano M Laureen, DO potassium chloride (K-TAB,KLOR-CON) CR tablet 20-40 mEq, 20-40 mEq, oral, PRN OR potassium chloride (KAYCIEL) 20 mEq/15 mL solution 20-40 mEq, 20-40 mEq, oral, PRN OR potassium chloride IVPB 10 mEq/100 mL in water (0.1 mEq/mL premix), 10 mEq, intravenous, PRN, Aureliano M Laureen, DO sodium chloride 0.9 % flush 3 mL, 3 mL, intravenous, PRN, Aureliano M Laureen, DO sodium chloride 0.9 % flush 3 mL, 3 mL, intravenous, Q12H TONY, Aureliano M Laureen, DO sodium chloride 0.9 % flush bag, 25 mL, intravenous, PRN, Aureliano M Laureen, DO sodium chloride 0.9 % infusion, 20 mL/hr, intravenous, Continuous PRN, Aureliano M Laureen, DO thiamine HCl (VITAMIN B-1) tablet 100 mg, 100 mg, oral, Daily, Aureliano M Laureen, DO, 100 mg at 06/07/24 0634 Social History Socioeconomic History Marital status: Spouse name: Not on file Number of children: Not on file Years of education: Not on file Highest education level: Not on file Occupational History Not on file Tobacco Use Smoking status: Former Smokeless tobacco: Never Substance and Sexual Activity Alcohol use: Yes Alcohol/week: 7.0 standard drinks of alcohol Types: 7 Cans of beer per week Drug use: No Sexual activity: Not on file Other Topics Concern Caffeine Use Yes Social History Narrative Not on file Social Drivers of Health Financial Resource Strain: Not on file Food Insecurity: Not on file Transportation Needs: Not on file Physical Activity: Not on file Stress: Not on file Social Connections: Not on file Interpersonal Safety: Not on file Housing Instability: Not on file Family History Problem Relation Age of Onset No Known Problems Mother No Known Problems Father Physical Exam Vitals reviewed. Constitutional: General: He is not in acute distress. Appearance: Normal appearance. He is normal weight. HENT: Head: Normocephalic and atraumatic. Right Ear: External ear normal. Left Ear: External ear normal. Nose: Nose normal. Mouth/Throat: Mouth: Mucous membranes are moist. Pharynx: Oropharynx is clear. Eyes: General: Scleral icterus present. Cardiovascular: Rate and Rhythm: Normal rate. Pulses: Normal pulses. Pulmonary: Effort: Pulmonary effort is normal. No respiratory distress. Breath sounds: Normal breath sounds. Abdominal: General: Abdomen is flat. There is no distension. Palpations: Abdomen is soft. There is no mass. Tenderness: There is no abdominal tenderness. There is no guarding or rebound. Hernia: No hernia is present. Musculoskeletal: General: Normal range of motion. Cervical back: Normal range of motion and neck supple. No tenderness. Right lower leg: Edema present. Left lower leg: Edema present. Skin: General: Skin is warm and dry. Capillary Refill: Capillary refill takes less than 2 seconds. Coloration: Skin is jaundiced. Neurological: General: No focal deficit present. Mental Status: He is alert. He is confused. Cranial Nerves: No cranial nerve deficit. Psychiatric: Mood and Affect: Mood normal. Behavior: Behavior normal. Thought Content: Thought content normal. Vital Signs: Blood pressure (!) 155/107, pulse 75, temperature 36.6 C (97.9 F), temperature source Oral, resp. rate 19, weight 62.4 kg (137 lb 9.1 oz), SpO2 97%. Respiratory Source: O2 Device: None (Room air) Admission Weight: Weight: 62.4 kg (137 lb 9.1 oz) Labs: Lab Results Component Value Date WBC 6.4 06/07/2024 HGB 10.9 (L) 06/07/2024 HCT 35.2 (L) 06/07/2024 MCV 73 (L) 06/07/2024 PLT 259 06/07/2024 Lab Results Component Value Date GLU 91 06/07/2024 CALCIUM 8.6 06/07/2024 K 3.3 (L) 06/07/2024 CO2 27 06/07/2024 CL 106 06/07/2024 BUN 30 (H) 06/07/2024 CREATININE 1.44 (H) 06/07/2024 No results found for: AMYLASE Lab Results Component Value Date LIPASE 76 (H) 01/01/2017 Lab Results Component Value Date ALT 21 06/07/2024 AST 29 06/07/2024 ALKPHOS 60 06/07/2024 Lab Results Component Value Date INR 1.3 (H) 06/07/2024 PROTIME 15.5 (H) 06/07/2024 Imaging: No results found. Assessment: Johnathan Rodney is a 68 y.o.male with a PMH of CHF 50%, Afib on Eliquis, daily alcohol and marijuana use who was transferred to [facility] from OSH with AMS and hyperbilirubinemia. General surgery consulted for GBUS findings of acute vs. chronic cholecystitis, however the pt denies any abdominal pain, hx of postprandial pain, and has no TTP. Given the pts history and physical exam, unfortunately, it is more likely that the patients findings could be secondary to cirrhosis rather than cholecystitis. Will obtain an MRCP to further evaluate the GB as well as the liver for any cirrhotic morphology, along with a GI consult. Plan: No acute indications for surgical intervention at this time Consult GI for cirrhosis eval Follow up MRCP results Pain and nausea control PRN Electrolyte repletion PRN DVT ppx: SCD's Demetria Keller DO General Surgery, PGY-1 06/07/24 8:12 AM General Surgery C 6a-6p pager #[phone] 6p-6a pager #[phone] Cosigned by Nicolas Wells MD at 06/07/2024 9:30 PM EST Associated attestation - Nicolas Wells MD - 06/07/2024 9:30 PM EST Attending Attestation: I saw the patient. I performed the critical/leonardo portions of the service. I was directly involved in the management and treatment plan of the patient. I reviewed the resident's note. Additional Notes/Findings: Patient with history of EtOH use. He presents with elevated liver enzymes. MRCP without any signficant biliary ductal dilation. There is sludge within the gallbladder. Elevated liver enzymes - unclear etiology. Doubt gallbladder etiology. Nicolas Wells MD, FACS General Surgery and Minimally Invasive Surgery [address], [address] [place], [place] [address] Office: Associated Order(s): IP CONSULT TO NEUROLOGY Images from the original note were not included. [facility] Neu[facility] General Neurology Consultation Note Consult Neurology Service: [phone] Primary Team: [facility] Chief Complaint and Reason for Consultation: Altered mental status and hallucinations History: Johnathan Rodney is a 68 y.o. year old male for whom Neurology was consulted for chief complaint of altered mental status and hallucinations. Patient has a past medical history notable for atrial fibrillation (unknown compliance with anticoagulation), hypertension, chronic systolic heart failure, history of alcohol use disorder, hyperlipidemia, and medication noncompliance. Patient was initially evaluated at outside hospital by tele Neurology for concerns of altered mental status and hallucinations. Per chart review, patient was brought in by family due to concerns of confusion as well as 2 week history of hallucinations. It was reported that patient lived alone and it was unclear if patient was compliant with his medications. Per report patient's daughter stated that she noted that the patient was having hallucinations of spiders that were not actually present and they hallucinations were progressively getting more severe. Patient was becoming more paranoid. Additionally, it was noted that patient would use alcohol daily as viral marijuana and cigarettes. 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 MRI brain was obtained which showed no acute infarcts. Patient was noted to be in AFib with RVR at outside hospital. Additionally abdominal ultrasound showed concerns for acute versus chronic cholecystitis. Patient was started on IV Rocephin and Flagyl. Tele neurology recommended that the patient be further evaluated by Neurology and consider LP for any concerns for occult infection. Patient was then transferred to [facility] for further evaluation. On initial examination, patient was A&O x3 oriented person, place, and time. Patient was disoriented situation he believes he was brought in by the police for drunk driving to the hospital. Patient appears to have some problems with retrograde memory including believing that his 7 months ago when in fact it was reported that she 4 years ago. Patient denies any visual or auditory hallucinations however states that he does start at his 's picture a lot. Patient was able to tell me current events and how he was currently feeling however seems to have difficulty with past memories. No focal deficits on examination. Past Medical History/Surgical History: Active Ambulatory Problems Diagnosis Date Noted Pure hypercholesterolemia Hypokalemia Hypertensive heart disease without heart failure Chronic atrial fibrillation ([facility]) Abnormal EKG Bradycardia Syncope 09/15/2017 Resolved Ambulatory Problems Diagnosis Date Noted Hypertension Past Medical History: Diagnosis Date Atrial fibrillation ([facility]) Back pain Urinary tract infection 01/2019 Family History: Family History Problem Relation Age of Onset No Known Problems Mother No Known Problems Father Social History: Social History Socioeconomic History Marital status: Spouse name: Not on file Number of children: Not on file Years of education: Not on file Highest education level: Not on file Occupational History Not on file Tobacco Use Smoking status: Former Smokeless tobacco: Never Substance and Sexual Activity Alcohol use: Yes Alcohol/week: 7.0 standard drinks of alcohol Types: 7 Cans of beer per week Drug use: No Sexual activity: Not on file Other Topics Concern Caffeine Use Yes Social History Narrative Not on file Social Drivers of Health Financial Resource Strain: Not on file Food Insecurity: Not on file Transportation Needs: Not on file Physical Activity: Not on file Stress: Not on file Social Connections: Not on file Interpersonal Safety: Not on file Housing Instability: Not on file Medications: Current Facility-Administered Medications: acetaminophen (TYLENOL) tablet 650 mg, 650 mg, oral, Q4H PRN, Aureliano Martinezs, DO dextrose (GLUTOSE) 40 % gel 15 g, 15 g, oral, PRN, Aureliano Martinezs, DO dextrose 5 % (D5W) infusion, 100 mL/hr, intravenous, Continuous PRN, Aureliano Martinezs, DO dextrose 50 % in water (D50W) 50% solution 25 mL, 25 mL, intravenous, PRN, Aureliano Martinezs, DO glucagon HCL injection 1 mg, 1 mg, intramuscular, PRN, Aureliano Martinezs, DO sodium chloride 0.9 % flush 3 mL, 3 mL, intravenous, PRN, Aureliano Katie NgLaureen, DO sodium chloride 0.9 % flush 3 mL, 3 mL, intravenous, Q12H TONY, Aureliano Martinezs, DO sodium chloride 0.9 % flush bag, 25 mL, intravenous, PRN, Aureliano Katie Laureen, DO sodium chloride 0.9 % infusion, 20 mL/hr, intravenous, Continuous PRN, Aureliano M Laureen, DO Allergies: No Known Allergies Complete Review of Systems: Review of Systems Constitutional: Negative for chills and fever. Eyes: Negative for visual disturbance. Cardiovascular: Negative for chest pain. Respiratory: Negative for shortness of breath. Gastrointestinal: Negative for abdominal pain, nausea and vomiting. Genitourinary: Negative for bladder incontinence. Neurological: Negative for headaches, numbness and weakness. Psychiatric/Behavioral: Positive for altered mental status and hallucinations. Physical Exam Vital Signs: Vitals: 06/07/24 0525 BP: 122/86 Pulse: 73 Resp: 19 Temp: 36.6 C (97.9 F) SpO2: 97% Neurological Exam Mental Status Awake and alert. Oriented only to person, place and time. Memory: Patient appears to have lapses in retrograde memory.. Speech is normal. Language is fluent with no aphasia. Attention and concentration are normal. Fund of knowledge is appropriate for level of education. Cranial Nerves CN II: Visual acuity is normal. Visual sena full to confrontation. CN III, IV, : Extraocular movements intact bilaterally. Normal lids and orbits bilaterally. Pupils equal round and reactive to light bilaterally. CN V: Facial sensation is normal. CN VII: Full and symmetric facial movement. CN VIII: Hearing is normal. CN IX, X: Palate elevates symmetrically. Normal gag reflex. CN XI: Shoulder shrug strength is normal. CN XII: Tongue midline without atrophy or fasciculations. Motor Normal muscle bulk throughout. Normal muscle tone. No abnormal involuntary movements. Strength is 5/5 throughout all four extremities. Sensory Light touch is normal in upper and lower extremities. Reflexes Right Left Brachioradialis 2+ 2+ Biceps 2+ 2+ Patellar 2+ 2+ Achilles 2+ 2+ Right Plantar: mute Left Plantar: mute Right pathological reflexes: Ankle clonus absent. Left pathological reflexes: Ankle clonus absent. Coordination Right: Gemizi-uy-uawt normal.Left: Oslyue-jk-zyir normal. Gait Deferred. Objective Pertinent Labs: No results found for this or any previous visit (from the past 72 hours). Imaging: No results found. Other Testing: PROBLEM LIST: Patient Active Problem List Diagnosis Pure hypercholesterolemia Hypokalemia Hypertensive heart disease without heart failure Chronic atrial fibrillation ([facility]) Abnormal EKG Bradycardia Syncope Acute encephalopathy Assessment: Johnathan Rodney is a 68 y.o. year old male for whom Neurology was consulted for chief complaint of altered mental status and hallucinations. Patient has a past medical history notable for atrial fibrillation (unknown compliance with anticoagulation), hypertension, chronic systolic heart failure, history of alcohol use disorder, hyperlipidemia, and medication noncompliance. CT head at outside hospital showed no acute intracranial findings. MRI brain from outside hospital showed no acute intracranial findings. Initial examination, patient was A&O x3 oriented to person, place, time but disoriented to situation as well as has some lapses and retrograde memory. Impression: Encephalopathy and hallucinations most likely secondary to metabolic/infectious etiologies versus less likely seizure activity versus cerebrovascular lesion Plan: Follow up on routine EEG Neurology consult Service will continue to follow Recommend continued medical management per primary team Discussed with Dr. Marie Signed by Marii Potter MD Neurology Resident, [facility] Please contact via secure chat Staffed with: Dr. Marie This patient is being followed by the Neurology Resident service. Contact attending directly during these hours: Monday to 7:30-8:30 A.M. to Monday 12-1:00 p.m. Primary Neurology service: [phone] Consult neurology service: [phone] Resident Stroke Service: [phone] If the patient belongs to the Stroke JAK service please contact the Stroke JAK directly. Cosigned by Catrina Marie MD at 06/07/2024 4:29 PM EST Associated attestation - Catrina Marie MD - 06/07/2024 4:29 PM EST I have discussed the case of Johnathan Rodney, including pertinent history and exam findings with the resident. I have seen and examined the patient and the leonardo elements of the encounter have been performed by me. I agree with the assessment, plan and orders as documented by the resident with changes made to the note as needed. Lab Results Component Value Date LDLCALC 113 04/20/2020 No results found for: CHLPL Lab Results Component Value Date TRIG 114 04/20/2020 Lab Results Component Value Date HDL 62 04/20/2020 HDL 52 11/17/2014 Lab Results Component Value Date LDLCALC 113 04/20/2020 No results found for: LABVLDL No components found for: LABA1C No components found for: EAG Lab Results Component Value Date [id number] >1,500 (H) 06/07/2024 Neurological work up: CT head CTA head and neck MRI brain 2 D echo Assessment and recommendations Delirium Hypertension RADHA AFib with RVR Electrolytes imbalance Acute urinary retention Alcoholism Upon examination patient is awake, oriented to self, following commands in his almost close to back to baseline. No focal neurological deficits were noted upon examination. The patient's neurological workup, including a CT of the brain, has shown basal ganglia hyperdensities, along with a right occipital hypodensity. The previous MRI of the brain was significantly limited by motion artifact, restricting its diagnostic utility. Given these limitations, I recommend obtaining a repeat MRI of the brain with contrast for a more detailed evaluation. Additionally, an EEG is currently pending to assess for possible seizure activity. Thank you for the consult. Neurology will follow. Catrina Marie MD Neurology This note is created with the assistance of a speech-recognition program. While intending to generate a document that actually reflects the content of the visit, the document can still have some errors including those of syntax and sound a- like substitutions which may escape proofreading. In such instances, actual meaning can be extrapolated by contextual derivation. [facility] Miscellaneous Notes Please arrange for outpatient follow-up for a FibroScan. We are asked to see the patient in the hospital for evaluation of possible cirrhosis. Patient currently admitted. [facility] [facility] 06-08-2024 Telephone encounter Note Please arrange for outpatient follow-up for a FibroScan. We are asked to see the patient in the hospital for evaluation of possible cirrhosis. [employer] Phone: 06-08-2024 Telephone encounter Note Patient currently admitted. [employer] 06-08-2024 Plan of care note Problem: Safety Goal: Patient will be injury free during hospitalization Description: INTERVENTIONS: 1. Assess patient's risk for falls and implement fall prevention plan of care per policy 2. Provide and maintain a safe environment 3. Proper use of double Identifiers 4. Medication administration using the 5 rights 5. Hand hygiene 6. Specimens are labeled at the bedside 7. Instruct patient/ patient arborist representative about use of safety devices 8. Include patient/ patient arborist representative in decisions related to safety Outcome: Progressing Note: Evaluation of progress towards goal: Patient free from injury, will continue to provide a clean environment, personal objects in reach, and a well light room Problem: Knowledge Deficit Goal: Patient/patient arborist representative demonstrates understanding of disease process, treatment plan, medications, and discharge instructions Description: INTERVENTIONS 1. Complete learning assessment and assess knowledge base 2. Provide teaching at level of understanding 3. Provide teaching via preferred learning method(s) Outcome: Progressing Note: Evaluation of progress towards goal: patient kept up to date on plan of care Problem: Moderate - High Risk Fall Score Description: [place] Fall Score of =/> 25 or indicated by [facility] Assessment Goal: Patient should be free from fall Description: Interventions: 1. [place] to environment 2. Hourly rounds addressing the 4 P's (Pain, Positioning, Possessions, Potty) 3. Clear area of hazards (spills, clutter, electrical cords, unnecessary equipment) 4. Place equipment (bed & TV controls, call light, phone, urinal) within reach 5. Encourage patient to wear glasses and hearing aides as appropriate 6. Maintain bed in lowest position 7. Lock wheels on bed/wheelchair 8. Provide adequate lighting, including night light 9. Assess need for additional bedding, food/fluids, pain med's prior to sleep/routinely 10. Provide gripper slippers or personal non-skid footwear 11. Teach patient and patient arborist representative to maintain environment for safety and engage in all aspects of fall prevention program 12. Remind patient to call for help before getting out of bed 13. Initiate bed/chair/exit alarms supportive devices as appropriate, (chair wedge, no-skid floor mat, raised edge mattress, hip protectors) 14. Locate patient bed assignment for optimal visualization 15. Evaluate and identify Safe Patient Handling Equipment needs 16. Provide supervision when out of bed or chair 17. Utilize gait belt as needed to assist with ambulation 18. Place adaptive equipment (cane, walker) within reach 19. Request patient arborist representative bring adaptive equipment/mobility aids from home or obtain and provide as needed 20. Consult pharmacy regarding effects of med's affecting mobility, cognition, and alternatives 21. Obtain physician order for PT if risk factors associated with mobility are present 22. Obtain physician order for OT as appropriate 23. Utilize diversional activities 24. Educate patient and patient arborist representative how to maintain a safe environment during visitation times (notify nurse prior to leaving bedside) 25. Consider appropriateness of medical or non-medical front desk specialist 26. Set up voiding schedule as appropriate (every 2 hours) Outcome: Progressing Note: Evaluation of progress towards goal: Patient free from injury, will continue to provide a clean environment, personal objects in reach, and a well light room [facility] [employer] 06-08-2024 Progress note Formatting of t his note is different from the original. Physical Therapy PT Type of Visit: Medical deferral Reason For Medical Deferral: Medical procedure ongoing, RN deems inappropriate, Imaging results pending (pt had fall last night and is leaving for stat CT on attempt at eval. will hold at this time) [facility] [employer] 06-07-2024 Nurse Note At 2114 patient bed alarm went off. RN ran toward patient room. RN saw PCT Monalisa at arms length away from patient holding onto patient hands while patient was standing. RN entered room to find patient on floor. RN asked patient if he hit his head. Patient and PCT replied with yes . Patient was laying on right side of body with head near the wheel cover of the top of the bed. PCT stated he hit that thing pointing to the wheel cover. Patient was able to get on hands and knees and raise self to bed with RN and Rola RN assistance. At 2119 RN called Vito Kurtz ELEANOR with [facility] Team G as primary care team. Stat head CT ordered. Neuro assessment and vitals completed per RN. No neuro changes. Patient still A&O X 4, just slow to say the complete year correctly. Primary updated on assessment and Kiki MANCUSO took patient to CT. - Meaghan Lam RN 06/07/24 9:49 PM [facility] [employer] 06-07-2024 Plan of care note Problem: Pain Goal: Patient goal is pain score less than 4, able to rest, and participant in treatment plan as appropriate Description: INTERVENTIONS: 1. Encourage patient or legal arborist representative to report early pain and ask for pain medicine when needed 2. Assess pain using appropriate pain scale and include the scale used when documenting 3. Administer analgesics based on type and severity of pain and evaluate response within appropriate time frame 4. Implement non-pharmacological measures as appropriate and evaluate response 5. Consider cultural and social influences on pain and pain management 6. Notify LIP if interventions ineffective or patient reports new pain 7. Monitor vital signs including pulse ox, end-tidal CO2 based on pain intervention 8. Reassess pain per policy 9. Teach patient or legal arborist representative interventions for comforting Outcome: Progressing Note: Evaluation of progress towards goal: Patient encouraged to report pain occurrence. Pain to be assessed using 0-10 pain scale. Pain controled with PRN pain medication, vital signs monitored, pain to be reassessed within an hour of intervention. Problem: Safety Goal: Patient will be injury free during hospitalization Description: INTERVENTIONS: 1. Assess patient's risk for falls and implement fall prevention plan of care per policy 2. Provide and maintain a safe environment 3. Proper use of double Identifiers 4. Medication administration using the 5 rights 5. Hand hygiene 6. Specimens are labeled at the bedside 7. Instruct patient/ patient arborist representative about use of safety devices 8. Include patient/ patient arborist representative in decisions related to safety Outcome: Progressing Note: Evaluation of progress towards goal: Patient has remained free of falls throughout this shift. Patient uses call light appropriately, non-slip socks are on, bed locked and in lowest position, two side rails up, and bedside table within reach. Fall risk wristband on. Bed alarm on and working. Problem: Infection Goal: Absence of infection during hospitalization Description: INTERVENTIONS 1. Assess and monitor for signs and symptoms of infection. 2. Monitor lab/diagnostic results. 3. Monitor all insertion sites i.e., indwelling lines, tubes and drains. 4. Monitor endotracheal (as able) and nasal secretions for changes in amount and color. 5. Administer medications as ordered. 6. Instruct and encourage patient and family to use good hand hygiene technique. 7. Identify and instruct patient/patient arborist representative in use of appropriate isolation precautions for identified infection/symptoms. 8. Provide and discuss with patient/patient arborist representative on educational MDRO sheet. 9. Encourage and monitor nutritional status daily and consult senior oracle dba if indicated. 10. Implement neutropenic guidelines as needed. Outcome: Progressing Note: Evaluation of progress towards goal: Patient has remained afebrile. WBC and vital signs monitored. Patient has not shown any additional signs of infection at this time. Problem: Knowledge Deficit Goal: Patient/patient arborist representative demonstrates understanding of disease process, treatment plan, medications, and discharge instructions Description: INTERVENTIONS 1. Complete learning assessment and assess knowledge base 2. Provide teaching at level of understanding 3. Provide teaching via preferred learning method(s) Outcome: Progressing Note: Evaluation of progress towards goal: Patient's family is involved and informed of the patient's care and condition. Family and patient educated about current medications and treatment plan. Problem: Potential for Compromised Skin Integrity Goal: Skin integrity is maintained or improved Description: Patient's goal is: INTERVENTIONS 1. Perform initial skin assessment on admission and as needed 2. Turn patient every 2 hours and PRN 3. Relieve pressure to bony prominences 4. Avoid shearing 5. Keep skin clean and dry 6. Alternate a full bath with partial baths for elderly 7. Apply lotion/moisturizer on skin 8. Monitor patient's hygiene practices 9. Float heels 10. Collaborate with interdisciplinary team and initiate plans and interventions as needed Outcome: Progressing Note: Evaluation of progress towards goal: Skin assessment Qshift and prn. Patient able to move around in bed. Will need to see PT/OT. Problem: Urinary Incontinence Goal: Perineal skin integrity is maintained or improved Description: INTERVENTIONS 1. Assess genitourinary system, perineal skin, labs (urinalysis), and history of incontinence to include past management, aggravating, and alleviating factors 2. Keep skin clean and dry 3. Apply skin protectant 4. Develop skin care regimen 5. Provide privacy when changing patients incontinence device to maintain their dignity 6. Consider placing an indwelling catheter 7. Collaborate with interdisciplinary team and initiate plans and interventions as needed Outcome: Progressing Note: Evaluation of progress towards goal: Arenas maintained for urinary retention. Problem: Moderate - High Risk Fall Score Description: [place] Fall Score of =/> 25 or indicated by [facility] Assessment Goal: Patient should be free from fall Description: Interventions: 1. [place] to environment 2. Hourly rounds addressing the 4 P's (Pain, Positioning, Possessions, Potty) 3. Clear area of hazards (spills, clutter, electrical cords, unnecessary equipment) 4. Place equipment (bed & TV controls, call light, phone, urinal) within reach 5. Encourage patient to wear glasses and hearing aides as appropriate 6. Maintain bed in lowest position 7. Lock wheels on bed/wheelchair 8. Provide adequate lighting, including night light 9. Assess need for additional bedding, food/fluids, pain med's prior to sleep/routinely 10. Provide gripper slippers or personal non-skid footwear 11. Teach patient and patient arborist representative to maintain environment for safety and engage in all aspects of fall prevention program 12. Remind patient to call for help before getting out of bed 13. Initiate bed/chair/exit alarms supportive devices as appropriate, (chair wedge, no-skid floor mat, raised edge mattress, hip protectors) 14. Locate patient bed assignment for optimal visualization 15. Evaluate and identify Safe Patient Handling Equipment needs 16. Provide supervision when out of bed or chair 17. Utilize gait belt as needed to assist with ambulation 18. Place adaptive equipment (cane, walker) within reach 19. Request patient arborist representative bring adaptive equipment/mobility aids from home or obtain and provide as needed 20. Consult pharmacy regarding effects of med's affecting mobility, cognition, and alternatives 21. Obtain physician order for PT if risk factors associated with mobility are present 22. Obtain physician order for OT as appropriate 23. Utilize diversional activities 24. Educate patient and patient arborist representative how to maintain a safe environment during visitation times (notify nurse prior to leaving bedside) 25. Consider appropriateness of medical or non-medical front desk specialist 26. Set up voiding schedule as appropriate (every 2 hours) Outcome: Progressing Note: Evaluation of progress towards goal: Patient has remained free of falls throughout this shift. Patient uses call light appropriately, non-slip socks are on, bed locked and in lowest position, two side rails up, and bedside table within reach. Fall risk wristband on. Bed alarm on and working. Problem: Neurological Deficit Goal: Neurological status is stable or improving Description: Patient's goal is: INTERVENTIONS 1. Complete Neurological assessment as indicated/ordered 2. Initiate measures to prevent increased intracranial pressure 3. Monitor and assess patient's level of consciousness, motor function, sensory function, and level of assistance needed for ADLs 4. Monitor and report changes from baseline 5. Maintain blood pressure and fluid volume within ordered parameters to optimize cerebral perfusion and minimize risk of hemorrhage 6. Monitor labs and diagnostic tests 7. Administer anti-seizure medications as ordered 8. Maintain airway, patient safety and administer oxygen as ordered 9. Monitor patient for seizure activity, document and report duration and description of seizure to LIP 10. If seizure occurs, turn patient to side and suction secretions as needed 11. Reorient patient post seizure 12. Seizure pads on all 4 side rails 13. Instruct patient/family to notify RN of any seizure activity 14. Instruct patient/family to call for assistance with activity based on assessment 15. Utilize bleeding precautions if thrombolytic given Outcome: Progressing Note: Evaluation of progress towards goal: Neuro assessment Q4 and prn. Problem: Discharge Planning Goal: Discharge to post-acute care, other facility, or home with appropriate resources Description: Patient's goal is: INTERVENTIONS 1. Conduct assessment to determine patient/family and health care team treatment goals, and need for post-acute services based on payer coverage, community resources, and patient preferences, and barriers to discharge 2. Coordinate with Social work, Care Navigation, and Utilization Review to arrange appropriate level of services according to patient's needs based on patient preference and payer coverage in collaboration with the physician and health care team 3. Address psychosocial, clinical, and financial barriers to discharge as identified in assessment in conjunction with the patient/family and health care team 4. Consult appropriate ancillary services (i.e.. PT/OT/ST, etc) as needed 5. Communicate with and update the patient/family, physician, and health care team regarding progress on the discharge plan 6. Identify discharge learning needs (meds, wound care, etc). 7. Arrange for needed discharge transportation as appropriate Note: Evaluation of progress towards goal: Patient involved and informed about disease process, medications, and treatment plan. Hospice Home Care Coordinator to update patient throughout the shift regarding plan of care. [facility] 06-07-2024 Plan of care note Problem: Safety Goal: Patient will be injury free during hospitalization Description: INTERVENTIONS: 1. Assess patient's risk for falls and implement fall prevention plan of care per policy 2. Provide and maintain a safe environment 3. Proper use of double Identifiers 4. Medication administration using the 5 rights 5. Hand hygiene 6. Specimens are labeled at the bedside 7. Instruct patient/ patient arborist representative about use of safety devices 8. Include patient/ patient arborist representative in decisions related to safety Outcome: Progressing Note: Evaluation of progress towards goal: Patient free from injury, will continue to provide a clean environment, personal objects in reach, and a well light room Problem: Knowledge Deficit Goal: Patient/patient arborist representative demonstrates understanding of disease process, treatment plan, medications, and discharge instructions Description: INTERVENTIONS 1. Complete learning assessment and assess knowledge base 2. Provide teaching at level of understanding 3. Provide teaching via preferred learning method(s) Outcome: Not Progressing Note: Evaluation of progress towards goal: patient and patients family kept updated on plan of care Problem: Moderate - High Risk Fall Score Description: [place] Fall Score of =/> 25 or indicated by [facility] Assessment Goal: Patient should be free from fall Description: Interventions: 1. [place] to environment 2. Hourly rounds addressing the 4 P's (Pain, Positioning, Possessions, Potty) 3. Clear area of hazards (spills, clutter, electrical cords, unnecessary equipment) 4. Place equipment (bed & TV controls, call light, phone, urinal) within reach 5. Encourage patient to wear glasses and hearing aides as appropriate 6. Maintain bed in lowest position 7. Lock wheels on bed/wheelchair 8. Provide adequate lighting, including night light 9. Assess need for additional bedding, food/fluids, pain med's prior to sleep/routinely 10. Provide gripper slippers or personal non-skid footwear 11. Teach patient and patient arborist representative to maintain environment for safety and engage in all aspects of fall prevention program 12. Remind patient to call for help before getting out of bed 13. Initiate bed/chair/exit alarms supportive devices as appropriate, (chair wedge, no-skid floor mat, raised edge mattress, hip protectors) 14. Locate patient bed assignment for optimal visualization 15. Evaluate and identify Safe Patient Handling Equipment needs 16. Provide supervision when out of bed or chair 17. Utilize gait belt as needed to assist with ambulation 18. Place adaptive equipment (cane, walker) within reach 19. Request patient arborist representative bring adaptive equipment/mobility aids from home or obtain and provide as needed 20. Consult pharmacy regarding effects of med's affecting mobility, cognition, and alternatives 21. Obtain physician order for PT if risk factors associated with mobility are present 22. Obtain physician order for OT as appropriate 23. Utilize diversional activities 24. Educate patient and patient arborist representative how to maintain a safe environment during visitation times (notify nurse prior to leaving bedside) 25. Consider appropriateness of medical or non-medical front desk specialist 26. Set up voiding schedule as appropriate (every 2 hours) Outcome: Progressing Note: Evaluation of progress towards goal: Patient free from injury, will continue to provide a clean environment, personal objects in reach, and a well light room Problem: Neurological Deficit Goal: Neurological status is stable or improving Description: Patient's goal is: INTERVENTIONS 1. Complete Neurological assessment as indicated/ordered 2. Initiate measures to prevent increased intracranial pressure 3. Monitor and assess patient's level of consciousness, motor function, sensory function, and level of assistance needed for ADLs 4. Monitor and report changes from baseline 5. Maintain blood pressure and fluid volume within ordered parameters to optimize cerebral perfusion and minimize risk of hemorrhage 6. Monitor labs and diagnostic tests 7. Administer anti-seizure medications as ordered 8. Maintain airway, patient safety and administer oxygen as ordered 9. Monitor patient for seizure activity, document and report duration and description of seizure to LIP 10. If seizure occurs, turn patient to side and suction secretions as needed 11. Reorient patient post seizure 12. Seizure pads on all 4 side rails 13. Instruct patient/family to notify RN of any seizure activity 14. Instruct patient/family to call for assistance with activity based on assessment 15. Utilize bleeding precautions if thrombolytic given Outcome: Progressing Note: Evaluation of progress towards goal: patient is alert to self and location. [employer] 06-07-2024 Progress note Formatting of t his note is different from the original. Images from the original note were not included. DISCHARGE PLANNING NOTE Attempted to meet with patient and he is leaving floor for imaging. Will check back as able. 12:19 Chart reviewed. Met with patient, explained role, verbalized understanding. Patient lives by himself he has lost his of 30 years which has caused him much sadness. 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 He is unable to quantify the amount of beer he drinks when asked, CIWA continues. He denies that ETOH is a problem for him. He states that he does goes to the food pantry sometimes. When asked which one he did not know and sounds like his friend takes him there. List of pantries in this area provided to him. Will need a food box at discharge. His daughter is involved in is life and checks on him. Denies using any assistive devices or services in the home. Therapy consults are not ordered at this time. Denies any unmet needs at home currently. Discharge plan is to home at this time. Care Navigation to follow. /Services Requested: Services Requested Patient expects to be discharged to:: Home Does the patient need discharge transportation arranged?: No DC Planning Complete Discharge Milestones: Yes Patient Goals: Patient/Caregiver Goals Patient/Caregiver Goals: Home No Needs Goals: Goals Return to home (pt-stated) Evaluation of progress towards goal: Will need food box at discharge. [employer] 06-07-2024 Consult note Associated Order (s): IP CONSULT TO UROLOGY Images from the original note were not included. Urology Consultation Patient: Johnathan Rodney Date of : 1955 CHIEF COMPLAINT: right hydronephrosis HISTORY OF PRESENT ILLNESS: The patient is a 68 y.o. male who presents as a transfer in from [facility]. Paper records available in hard chart. Here for continued MS changes. Also a.fib with RVR, RADHA (cr 2.1), elevated bili and AST and abdominal u/s showing right hydronephrosis and possible acute vs chronic cholecystitis. From a urology standpoint arenas catheter is in place for reported urinary retention. No documented bladder scan or output when arenas was placed to confirm retention. Patient says he believes very little drained when arenas was placed. Was not having any obstructive voiding symptoms at home. Says he did have gross hematuria with a UTI that was treated about a month ago. He is on Eliquis at home. Denies any abdominal pain, no LUTS. According to [place] records, the family says he reportedly had some abdominal pain when he came in. Denies ever seeing a urologist, no hx of nephrolithiasis in the past. Patient's old records, notes and chart reviewed and summarized above. Past Medical History: Past Medical History: Diagnosis Date Abnormal EKG Atrial fibrillation ([facility]) Back pain Bradycardia Chronic atrial fibrillation ([facility]) Hypertension Hypertensive heart disease without heart failure Hypokalemia Pure hypercholesterolemia Urinary tract infection 01/2019 seen by [facility] Past Surgical History: No past surgical history on file. Medications: Scheduled Meds: cefTRIAXone (ROCEPHIN) IV, 1,000 mg, intravenous, Q24H folic acid, 1 mg, oral, Daily metroNIDAZOLE, 500 mg, intravenous, Q12H sodium chloride, 3 mL, intravenous, Q12H TONY thiamine HCl, 100 mg, oral, Daily Continuous Infusions: dextrose 5 % in water, 100 mL/hr sodium chloride 0.9 %, 20 mL/hr PRN Meds:. acetaminophen dextrose dextrose 5 % in water dextrose 50 % in water (D50W) glucagon (human recombinant) LORazepam OR LORazepam OR LORazepam LORazepam OR LORazepam OR LORazepam LORazepam OR LORazepam OR LORazepam LORazepam OR LORazepam OR LORazepam magnesium sulfate magnesium sulfate crbbzcxq-ymwa-CO-calcium &mins potassium chloride OR potassium chloride OR potassium chloride IV (Adult) sodium chloride sodium chloride sodium chloride 0.9 % Allergies: Patient has no known allergies. Social History: Social History Socioeconomic History Marital status: Spouse name: Not on file Number of children: Not on file Years of education: Not on file Highest education level: Not on file Occupational History Not on file Tobacco Use Smoking status: Former Smokeless tobacco: Never Substance and Sexual Activity Alcohol use: Yes Alcohol/week: 7.0 standard drinks of alcohol Types: 7 Cans of beer per week Drug use: No Sexual activity: Not on file Other Topics Concern Caffeine Use Yes Social History Narrative Not on file Social Drivers of Health Financial Resource Strain: Not on file Food Insecurity: Patient Unable To Answer (06/07/2024) Hunger Screening Food Insecurity - Worry: Patient unable to answer Food Insecurity - Inability: Patient unable to answer Transportation Needs: Patient Unable To Answer (06/07/2024) PRAPARE - Transportation Lack of Transportation (Medical): Patient unable to answer Lack of Transportation (Non-Medical): Patient unable to answer Physical Activity: Not on file Stress: Not on file Social Connections: Not on file Interpersonal Safety: Patient Unable To Answer (06/07/2024) Humiliation, Afraid, Rape, and Kick questionnaire Fear of Current or Ex-Partner: Patient unable to answer Emotionally Abused: Patient unable to answer Physically Abused: Patient unable to answer Sexually Abused: Patient unable to answer Housing Instability: Patient Unable To Answer (06/07/2024) Housing Instability Housing Instability: Patient unable to answer Family History: Family History Problem Relation Age of Onset No Known Problems Mother No Known Problems Father REVIEW OF SYSTEMS: Review of Systems All other systems are reviewed and are negative except as noted. Physical Exam: This a 68 y.o. male Patient Vitals for the past 24 hrs: BP Temp Temp src Pulse Resp SpO2 Height Weight 06/07/24 0925 -- -- -- -- -- -- 182.9 cm (6') -- 06/07/24 0804 (!) 155/107 -- Oral 75 19 97 % -- -- 06/07/24 0728 (!) 155/107 -- Oral 81 19 96 % -- -- 06/07/24 0533 -- -- -- -- -- -- -- 62.4 kg (137 lb 9.1 oz) 06/07/24 0525 122/86 36.6 C (97.9 F) Oral 73 19 97 % -- -- Constitutional: Patient in no acute distress. Neuro: Alert and oriented to person and place. Psych: mood and affect agitated HEENT negative Lungs: Respiratory effort is normal, non labored Cardiovascular: Normal rate Abdomen: Soft, non-tender, non-distended with no CVAT or flank pain Lymphatics: No palpable lymphadenopathy. Bladder non-tender and not distended. : circumcised phallus, [address] draining clear yellow urine. Rectal exam not indicated LABS: Results from last 7 days Lab Units 06/07/24 0542 POTASSIUM mmol/L 3.3* CHLORIDE mmol/L 106 CO2 mmol/L 27 BUN mg/dL 30* CREATININE mg/dL 1.44* CALCIUM mg/dL 8.6 Results from last 7 days Lab Units 06/07/24 0542 WBC X10E9/L 6.4 HEMOGLOBIN g/dL 10.9* HEMATOCRIT % 35.2* PLATELETS X10E9/L 259 Additional Lab/culture results: Urinalysis: Component Latest Ref Rng 06/07/2024 Color YELLOW^YELLOW YELLOW Turbidity CLEAR^CLEAR CLEAR Specific gravity 1.003 - 1.035 1.011 Nitrite Negative^Negative Negative Ph urine 5.0 - 8.5 6.5 Leukocyte esterase Negative^Negative Negative Protein Negative^Negative mg/dL 30 ! Glucose, urine Negative^Negative mg/dL Negative Ketones urine Negative^Negative mg/dL Trace ! Urobilinogen <1.1 eu/dL <1.1 Bilirubin, urine Negative^Negative Negative Hemoglobin Negative^Negative Large ! Mucus, UA NONE^NONE PRESENT ! RBC 0 - 5 /hpf 158 (H) WBC 0 - 5 /hpf 2 Legend: ! Abnormal (H) High Imaging Results: Media Information Document Information Photos/Images Abd U/s report impression from Nadia 06/07/2024 08:12 Attached To: Hospital Encounter on 06/07/24 Source Information [facility] Acute Document History Assessment and Plan Impression: 68 yom -Reported urinary retention -Right hydronephrosis -Hx of uti with gross hematuria -Anticoagulated at home, on hold for now Follow up Plan: -Start Flomax -Ct a/p stone protocal to further evaluate right hydronephrosis -Monitor for gross hematuria -f/u on urine cx -Discuss with Dr. Jin covering days KRYSTYNA Mendoza 06/07/24 0942 Cosigned by Zac Jin MD at 06/10/2024 2:41 PM EST [employer] Work Phone: 06-07-2024 Consult note Associated Order (s): IP CONSULT TO GASTROENTEROLOGY [facility] Initial Gastroenterology/Hepatology Consultation Note IDENTIFYING DATA PATIENT: Johnathan Rodney ADMIT DATE: 06/07/2024 TIME OF EVALUATION: 06/07/2024 8:45 AM Reason for Consult: eval for cirrhosis Requesting Physician: Shawanda Yañez HISTORY OF PRESENT ILLNESS Johnathan Rodney is a 68 y.o. male with a PMH of AFib on Eliquis, HTN, CKD, chronic systolic HF, heavy alcohol use, marijuana use admitted with encephalopathy after presenting to [facility] with altered mental status and hallucinations. Patient denies abdominal pain, nausea, vomiting, diarrhea, constipation or overt GI bleeding. Gets occasional heartburn. Denies any dysphagia. States he drinks 1-2 cans of beer but not every day. Uses marijuana and smokes tobacco. Denies ever being told that he had liver problems. No prior EGD or colonoscopy. No family at bedside, patient is a poor historian GI HISTORY SUMMARY TABLE Last EGD none Last colonoscopy none Primary GI physician PAST MEDICAL, SURGICAL, FAMILY, and SOCIAL HISTORY Past Medical History: Diagnosis Date Abnormal EKG Atrial fibrillation ([facility]) Back pain Bradycardia Chronic atrial fibrillation ([facility]) Hypertension Hypertensive heart disease without heart failure Hypokalemia Pure hypercholesterolemia Urinary tract infection 01/2019 seen by [facility] No past surgical history on file. Family History Problem Relation Age of Onset No Known Problems Mother No Known Problems Father Social History: Social History Tobacco Use Smoking status: Former Smokeless tobacco: Never Substance Use Topics Alcohol use: Yes Alcohol/week: 7.0 standard drinks of alcohol Types: 7 Cans of beer per week Drug use: No MEDICATIONS Allergies: No Known Allergies Medications Prior to Admission Medication Sig Dispense Refill Last Dose/Taking amLODIPine (NORVASC) 10 mg tablet TAKE 1 TABLET BY MOUTH EVERY DAY 90 tablet 1 Past Week apixaban (ELIQUIS) 5 mg tablet Take 1 tablet (5 mg total) by mouth every 12 (twelve) hours. 180 tablet 3 Past Week aspirin 81 mg Take 1 tablet (81 mg total) by mouth in the morning. Past Week hydrALAZINE (APRESOLINE) 100 mg tablet TAKE 1 TABLET (100 MG TOTAL) BY MOUTH 3 (THREE) TIMES A DAY. 270 tablet 3 Past Week labetaloL (NORMODYNE) 200 mg tablet Take 2 tablets (400 mg total) by mouth in the morning and 2 tablets (400 mg total) before bedtime. 120 tablet 5 Past Week olmesartan (BENICAR) 40 mg tablet Take 1 tablet (40 mg total) by mouth daily. 30 tablet 5 Past Week potassium chloride (K-TAB,KLOR-CON) 10 MEQ CR tablet TAKE 2 TABLETS BY MOUTH EVERY DAY 180 tablet 1 Past Week Current Medications: Current Facility-Administered Medications: acetaminophen (TYLENOL) tablet 650 mg, 650 mg, oral, Q4H PRN, Aureliano Garduno DO cefTRIAXone (ROCEPHIN) IVPB 1000 mg/50 mL in iso-osmotic dextrose (20 mg/mL premix), 1,000 mg, intravenous, Q24H, Aureliano Garduno DO dextrose (GLUTOSE) 40 % gel 15 g, 15 g, oral, PRN, Aureliano Garduno, dextrose 5 % (D5W) infusion, 100 mL/hr, intravenous, Continuous PRN, Aureliano Garduno DO dextrose 50 % in water (D50W) 50% solution 25 mL, 25 mL, intravenous, PRN, Aureliano M Laureen, DO folic acid (FOLVITE) tablet 1 mg, 1 mg, oral, Daily, Aureliano M Laureen, DO glucagon HCL injection 1 mg, 1 mg, intramuscular, PRN, Aureliano M Laureen, DO LORazepam (ATIVAN) tablet 1 mg, 1 mg, oral, Q1H PRN OR LORazepam (ATIVAN) injection 1 mg, 1 mg, intravenous, Q1H PRN OR LORazepam (ATIVAN) injection 1 mg, 1 mg, intramuscular, Q1H PRN, Aureliano M Laureen, DO LORazepam (ATIVAN) tablet 2 mg, 2 mg, oral, Q1H PRN OR LORazepam (ATIVAN) injection 2 mg, 2 mg, intravenous, Q1H PRN OR LORazepam (ATIVAN) injection 2 mg, 2 mg, intramuscular, Q1H PRN, Aureliano M Laureen, DO LORazepam (ATIVAN) tablet 3 mg, 3 mg, oral, Q1H PRN OR LORazepam (ATIVAN) injection 3 mg, 3 mg, intravenous, Q1H PRN OR LORazepam (ATIVAN) injection 3 mg, 3 mg, intramuscular, Q1H PRN, Aureliano M Laureen, DO LORazepam (ATIVAN) tablet 4 mg, 4 mg, oral, Q1H PRN OR LORazepam (ATIVAN) injection 4 mg, 4 mg, intravenous, Q1H PRN OR LORazepam (ATIVAN) injection 4 mg, 4 mg, intramuscular, Q1H PRN, Aureliano M Laureen, DO magnesium sulfate IVPB 2000 mg/50 mL in iso-osmotic water (40 mg/mL premix), 2,000 mg, intravenous, PRN, Aureliano M Laureen, DO magnesium sulfate IVPB 4000 mg/100 mL in iso-osmotic water (40 mg/mL premix), 4,000 mg, intravenous, PRN, Aureliano M Laureen, DO metroNIDAZOLE (FLAGYL) IVPB 500 mg/100 mL in iso-osmotic sodium chloride (5 mg/mL premix), 500 mg, intravenous, Q12H, Aureliano Katie Laureen, DO, Stopped at 06/07/24 0733 dqsinsqm-tmmg-GC-calcium &mins (THERAGRAN-M) 9 mg iron-400 mcg tablet 1 tablet, 1 tablet, oral, Daily PRN, Aureliano M Laureen, DO potassium chloride (K-TAB,KLOR-CON) CR tablet 20-40 mEq, 20-40 mEq, oral, PRN OR potassium chloride (KAYCIEL) 20 mEq/15 mL solution 20-40 mEq, 20-40 mEq, oral, PRN OR potassium chloride IVPB 10 mEq/100 mL in water (0.1 mEq/mL premix), 10 mEq, intravenous, PRN, Aureliano M Laureen, DO sodium chloride 0.9 % flush 3 mL, 3 mL, intravenous, PRN, Aureliano M Laureen, DO sodium chloride 0.9 % flush 3 mL, 3 mL, intravenous, Q12H TONY, Aureliano M Laureen, DO sodium chloride 0.9 % flush bag, 25 mL, intravenous, PRN, Aureliano Laureen, DO sodium chloride 0.9 % infusion, 20 mL/hr, intravenous, Continuous PRN, Aureliano M Laureen, DO thiamine HCl (VITAMIN B-1) tablet 100 mg, 100 mg, oral, Daily, Aureliano M Laureen, DO, 100 mg at 06/07/24 0634 PRNs: acetaminophen, 650 mg, Q4H PRN dextrose, 15 g, PRN dextrose 5 % in water, 100 mL/hr, Continuous PRN dextrose 50 % in water (D50W), 25 mL, PRN glucagon (human recombinant), 1 mg, PRN LORazepam, 1 mg, Q1H PRN Or LORazepam, 1 mg, Q1H PRN Or LORazepam, 1 mg, Q1H PRN LORazepam, 2 mg, Q1H PRN Or LORazepam, 2 mg, Q1H PRN Or LORazepam, 2 mg, Q1H PRN LORazepam, 3 mg, Q1H PRN Or LORazepam, 3 mg, Q1H PRN Or LORazepam, 3 mg, Q1H PRN LORazepam, 4 mg, Q1H PRN Or LORazepam, 4 mg, Q1H PRN Or LORazepam, 4 mg, Q1H PRN magnesium sulfate, 2,000 mg, PRN magnesium sulfate, 4,000 mg, PRN zsxupzsu-dslt-DH-calcium &mins, 1 tablet, Daily PRN potassium chloride, 20-40 mEq, PRN Or potassium chloride, 20-40 mEq, PRN Or potassium chloride IV (Adult), 10 mEq, PRN sodium chloride, 3 mL, PRN sodium chloride, 25 mL, PRN sodium chloride 0.9 %, 20 mL/hr, Continuous PRN REVIEW OF SYSTEMS See HPI, otherwise ROS negative as below CONSTITUTIONAL: negative HEENT: negative RESPIRATORY: negative CARDIOVASCULAR: negative GASTROINTESTINAL: as in HPI GENITOURINARY: negative INTEGUMENT/BREAST: negative HEMATOLOGIC/LYMPHATIC: negative ALLERGIC/IMMUNOLOGIC: negative ENDOCRINE: negative MUSCULOSKELETAL: negative NEUROLOGICAL: negative BEHAVIOR/PSYCH: negative OBJECTIVE DATA Vitals: BP (!) 155/107 Pulse 75 Temp 36.6 C (97.9 F) (Oral) Resp 19 Wt 62.4 kg (137 lb 9.1 oz) SpO2 97% BMI 18.66 kg/m GEN: alert and oriented to self, does not know year, knows he is at hospital but thinks he is still in [facility] HEENT: Normocephlic, Atraumatic, No sclera icterus CV: RRR, no murmur, rub, gallop, no edema PULM: clear anteriorly ABD: +Bowel sounds, soft, non-tender, non-distended, no palpable masses SKIN: Warm, dry, no jaundice appreciated LABS AND IMAGING Recent Results (from the past 48 hours) CBC auto differential Collection Time: 06/07/24 5:42 AM Result Value Ref Range White Blood Cells 6.4 4.0 - 11.0 X10E9/L RBC count 4.84 4.10 - 5.70 X10E12/L Hemoglobin 10.9 (L) 13.0 - 17.0 g/dL Hematocrit 35.2 (L) 39 - 49 % MCV 73 (L) 80 - 100 fL MCH 22.6 (L) 27 - 34 pg MCHC 31.1 (L) 32 - 36 g/dL RDW 23.8 (H) 11.5 - 15.0 % Platelets 259 150 - 450 X10E9/L MPV 8.7 7 - 12 fL % neutrophils 89.0 % % lymphocytes 3.0 % % monocytes 5.2 % % eosinophils 1.0 % % Basophils 1.8 % Neutrophils Absolute (A) 5.7 1.5 - 6.6 X10E9/L Lymphocytes Absolute 0.2 (L) 1.0 - 3.5 X10E9/L Monocytes Absolute 0.3 0 - 0.9 X10E9/L Eosinophils Absolute 0.1 0.0 - 0.4 X10E9/L Basophils Absolute 0.1 0.0 - 0.2 X10E9/L Anisocytosis 2+ (A) NONE^NONE Hypochromia 1+ (A) NONE^NONE Ovalocytes 2+ (A) NONE^NONE Comprehensive metabolic panel Collection Time: 06/07/24 5:42 AM Result Value Ref Range Sodium 144 134 - 146 mmol/L Potassium, Bld 3.3 (L) 3.5 - 5.0 mmol/L Chloride 106 98 - 109 mmol/L CO2 27 22 - 32 mmol/L Anion gap 11 5 - 15 mmol/L BUN 30 (H) 5 - 27 mg/dL Creatinine 1.44 (H) 0.60 - 1.30 mg/dL Glucose 91 65 - 99 mg/dL Calcium 8.6 8.5 - 10.5 mg/dL Total Protein 5.4 (L) 6.0 - 8.0 g/dL Albumin 2.9 (L) 3.2 - 5.3 g/dL Alkaline Phosphatase 60 39 - 130 U/L AST 29 0 - 41 U/L ALT 21 0 - 40 U/L Total bilirubin 1.6 (H) 0.3 - 1.2 mg/dL eGFR (CKD-EPI)non-race dependent 53 (L) >59 ml/min/1.73sq.m Magnesium Collection Time: 06/07/24 5:42 AM Result Value Ref Range Magnesium 1.5 (L) 1.8 - 2.6 mg/dL Thyroid profile includes TSH FT4 Collection Time: 06/07/24 5:42 AM Result Value Ref Range TSH 2.40 0.49 - 4.67 uIU/mL T4, free 1.08 0.61 - 1.60 ng/dL Protime & INR Collection Time: 06/07/24 5:42 AM Result Value Ref Range Protime 15.5 (H) 9.8 - 13.2 sec Inr 1.3 (H) 0.8 - 1.1 APTT Collection Time: 06/07/24 5:42 AM Result Value Ref Range aPTT 37 26 - 37 sec Ammonia Collection Time: 06/07/24 5:42 AM Result Value Ref Range Ammonia 32 18 - 72 umol/L Urinalysis Collection Time: 06/07/24 7:51 AM Result Value Ref Range Color YELLOW YELLOW^YELLOW Turbidity CLEAR CLEAR^CLEAR Specific gravity 1.011 1.003 - 1.035 Nitrite Negative Negative^Negative Ph urine 6.5 5.0 - 8.5 Leukocyte esterase Negative Negative^Negative Protein 30 (A) Negative^Negative mg/dL Glucose, Ur Negative Negative^Negative mg/dL Ketones urine Trace (A) Negative^Negative mg/dL Urobilinogen <1.1 <1.1 eu/dL Bilirubin, urine Negative Negative^Negative Hemoglobin Large (A) Negative^Negative Mucus, UA PRESENT (A) NONE^NONE RBC 158 (H) 0 - 5 /hpf WBC 2 0 - 5 /hpf IMAGING: Abdominal US at [place] on 06/06/2024- showed normal liver ASSESSMENT AND PLAN Johnathan Rodney is a 68 y.o. male with a PMH of AFib on Eliquis, HTN, CKD, chronic systolic HF, heavy alcohol use, marijuana use admitted with encephalopathy after presenting to [facility] with altered mental status and hallucinations. Reported hx heavy alcohol use, concern for possible cirrhosis - liver appeared normal on ultrasound from outside hospital - platelet count is normal - INR elevated which may be related to poor nutrition - albumin low which may be related to poor nutrition, acute illness - overall picture vague in regards to cirrhosis evaluation Elevated bilirubin - general surgery following for concern of acute versus chronic cholecystitis on outside hospital imaging, CBD was 2.9 mm Microcytic anemia Encephalopathy with mild asterixis, neurology following PLAN Follow-up acute hepatitis panel Fractionate bilirubin Follow liver panel/INR Follow up MRCP that was ordered by surgery Alcohol cessation recommended Check anemia labs Start lactulose Consider outpatient endoscopy pending anemia workup This consult was discussed with the attending physician. If you have any questions or need any further information, please feel free to contact the GI Consult Service. Thank you for allowing us to participate in the care of Johnathan Rodney. NIRMALA Smith [address] [address] PH: [phone] NIRMALA Jara 06/07/24 1316 Vira Abreu APRN-MARILIN 06/07/24 1316 Attending Attestation: Level of Participation Examined and discussed the patient with JAK Agreement I agree with the JAK's management. Attending Note I reviewed the JAK'sdocumentation and agree with the findings, assessment and plan Richardson Brandt D.O. [facility] [address] [place] [address] PH: [phone] [employer] Work Phone: 06-07-2024 Consult note Associated Order (s): IP CONSULT TO GENERAL SURGERY Images from the original note were not included. General Surgery C CONSULTATION NOTE Patient Name: Johnathan Rodney Admit Date: 06/07/2024 Length of Stay: 0 Days Admitting Physician: Matthew Philippe MD Consult: Acute v Chronic Cholecystitis, Hyperbilirubinemia History of Present Illness: Johnathan Rodney is a 68 y.o.male with a PMH of CHF 50%, Afib on Eliquis, daily alcohol and marijuana use who was transferred to [facility] from [facility] for encephalopathy with questionable hallucination, and hyperbilirubinemia. General surgery consulted for GBUS findings of acute vs. chronic cholecystitis. Pt notes that he does not go to the doctor whenever possible, and admits to not adhering to his medication regimen except for the Eliquis. He is confused as to why he is here, and is A&O to person and place, but not time. Per RN, pt was sent to OSH by his daughter who noted that his words were jumbled a few days prior. He notes that he drinks 2 tall boys a day, but later says that he gets 6-packs of beer and goes fishing often. He also admits to daily use of marijuana for his arthritis. There is no family at bedside and HPI is limited given that the patient is a poor historian. Upon questioning about any postprandial or abdominal pain, pt denies ever experiencing these symptoms. He does note occasional right-sided back pain when he goes to urinate. Denies nausea, vomiting, fever, and chills. He is notably jaundiced and with scleral icterus. Denies any prior surgeries or current tobacco use. Review of Systems Constitutional: Negative for fever, chills, diaphoresis, appetite change and fatigue. Respiratory: Negative for cough, chest tightness and shortness of breath. Cardiovascular: Positive for leg swelling. Negative for chest pain. Gastrointestinal: Negative for nausea, vomiting, abdominal pain, diarrhea and constipation. Genitourinary: Negative for dysuria, frequency and difficulty urinating. Musculoskeletal: Positive for back pain. Negative for myalgias and arthralgias. Skin: Positive for color change. Negative for rash and wound. Neurological: Negative for dizziness, light-headedness, numbness and headaches. Past Medical History: Diagnosis Date Abnormal EKG Atrial fibrillation ([facility]) Back pain Bradycardia Chronic atrial fibrillation ([facility]) Hypertension Hypertensive heart disease without heart failure Hypokalemia Pure hypercholesterolemia Urinary tract infection 01/2019 seen by [facility] No past surgical history on file. No Known Allergies Current Facility-Administered Medications: acetaminophen (TYLENOL) tablet 650 mg, 650 mg, oral, Q4H PRN, Aureliano Garduno, DO cefTRIAXone (ROCEPHIN) IVPB 1000 mg/50 mL in iso-osmotic dextrose (20 mg/mL premix), 1,000 mg, intravenous, Q24H, Aureliano Garduno, DO dextrose (GLUTOSE) 40 % gel 15 g, 15 g, oral, PRN, Aureliano Garduno, DO dextrose 5 % (D5W) infusion, 100 mL/hr, intravenous, Continuous PRN, Aureliano Garduno, DO dextrose 50 % in water (D50W) 50% solution 25 mL, 25 mL, intravenous, PRN, Aureliano Martinezs, DO folic acid (FOLVITE) tablet 1 mg, 1 mg, oral, Daily, Aureliano Garduno, DO glucagon HCL injection 1 mg, 1 mg, intramuscular, PRN, Aureliano M Laureen, DO LORazepam (ATIVAN) tablet 1 mg, 1 mg, oral, Q1H PRN OR LORazepam (ATIVAN) injection 1 mg, 1 mg, intravenous, Q1H PRN OR LORazepam (ATIVAN) injection 1 mg, 1 mg, intramuscular, Q1H PRN, Aureliano Wilson Abalos, DO LORazepam (ATIVAN) tablet 2 mg, 2 mg, oral, Q1H PRN OR LORazepam (ATIVAN) injection 2 mg, 2 mg, intravenous, Q1H PRN OR LORazepam (ATIVAN) injection 2 mg, 2 mg, intramuscular, Q1H PRN, Aureliano Wilson Abalos, DO LORazepam (ATIVAN) tablet 3 mg, 3 mg, oral, Q1H PRN OR LORazepam (ATIVAN) injection 3 mg, 3 mg, intravenous, Q1H PRN OR LORazepam (ATIVAN) injection 3 mg, 3 mg, intramuscular, Q1H PRN, Aureliano Martinezs, DO LORazepam (ATIVAN) tablet 4 mg, 4 mg, oral, Q1H PRN OR LORazepam (ATIVAN) injection 4 mg, 4 mg, intravenous, Q1H PRN OR LORazepam (ATIVAN) injection 4 mg, 4 mg, intramuscular, Q1H PRN, Aureliano Wilson Abalos, DO magnesium sulfate IVPB 2000 mg/50 mL in iso-osmotic water (40 mg/mL premix), 2,000 mg, intravenous, PRN, Aureliano Katie Laureen, DO magnesium sulfate IVPB 4000 mg/100 mL in iso-osmotic water (40 mg/mL premix), 4,000 mg, intravenous, PRN, Aureliano Katie Laureen, DO metroNIDAZOLE (FLAGYL) IVPB 500 mg/100 mL in iso-osmotic sodium chloride (5 mg/mL premix), 500 mg, intravenous, Q12H, Aureliano Garduno DO, Stopped at 06/07/24 0733 ozndxodc-itea-MR-calcium &mins (THERAGRAN-M) 9 mg iron-400 mcg tablet 1 tablet, 1 tablet, oral, Daily PRN, Aureliano Martinezs, DO potassium chloride (K-TAB,KLOR-CON) CR tablet 20-40 mEq, 20-40 mEq, oral, PRN OR potassium chloride (KAYCIEL) 20 mEq/15 mL solution 20-40 mEq, 20-40 mEq, oral, PRN OR potassium chloride IVPB 10 mEq/100 mL in water (0.1 mEq/mL premix), 10 mEq, intravenous, PRN, Aureliano M Laureen, DO sodium chloride 0.9 % flush 3 mL, 3 mL, intravenous, PRN, Aureliano M Laureen, DO sodium chloride 0.9 % flush 3 mL, 3 mL, intravenous, Q12H TONY, Aureliano M Laureen, DO sodium chloride 0.9 % flush bag, 25 mL, intravenous, PRN, Aureliano M Laureen, DO sodium chloride 0.9 % infusion, 20 mL/hr, intravenous, Continuous PRN, Aureliano M Laureen, DO thiamine HCl (VITAMIN B-1) tablet 100 mg, 100 mg, oral, Daily, Aureliano M Laureen, DO, 100 mg at 06/07/24 0634 Social History Socioeconomic History Marital status: Spouse name: Not on file Number of children: Not on file Years of education: Not on file Highest education level: Not on file Occupational History Not on file Tobacco Use Smoking status: Former Smokeless tobacco: Never Substance and Sexual Activity Alcohol use: Yes Alcohol/week: 7.0 standard drinks of alcohol Types: 7 Cans of beer per week Drug use: No Sexual activity: Not on file Other Topics Concern Caffeine Use Yes Social History Narrative Not on file Social Drivers of Health Financial Resource Strain: Not on file Food Insecurity: Not on file Transportation Needs: Not on file Physical Activity: Not on file Stress: Not on file Social Connections: Not on file Interpersonal Safety: Not on file Housing Instability: Not on file Family History Problem Relation Age of Onset No Known Problems Mother No Known Problems Father Physical Exam Vitals reviewed. Constitutional: General: He is not in acute distress. Appearance: Normal appearance. He is normal weight. HENT: Head: Normocephalic and atraumatic. Right Ear: External ear normal. Left Ear: External ear normal. Nose: Nose normal. Mouth/Throat: Mouth: Mucous membranes are moist. Pharynx: Oropharynx is clear. Eyes: General: Scleral icterus present. Cardiovascular: Rate and Rhythm: Normal rate. Pulses: Normal pulses. Pulmonary: Effort: Pulmonary effort is normal. No respiratory distress. Breath sounds: Normal breath sounds. Abdominal: General: Abdomen is flat. There is no distension. Palpations: Abdomen is soft. There is no mass. Tenderness: There is no abdominal tenderness. There is no guarding or rebound. Hernia: No hernia is present. Musculoskeletal: General: Normal range of motion. Cervical back: Normal range of motion and neck supple. No tenderness. Right lower leg: Edema present. Left lower leg: Edema present. Skin: General: Skin is warm and dry. Capillary Refill: Capillary refill takes less than 2 seconds. Coloration: Skin is jaundiced. Neurological: General: No focal deficit present. Mental Status: He is alert. He is confused. Cranial Nerves: No cranial nerve deficit. Psychiatric: Mood and Affect: Mood normal. Behavior: Behavior normal. Thought Content: Thought content normal. Vital Signs: Blood pressure (!) 155/107, pulse 75, temperature 36.6 C (97.9 F), temperature source Oral, resp. rate 19, weight 62.4 kg (137 lb 9.1 oz), SpO2 97%. Respiratory Source: O2 Device: None (Room air) Admission Weight: Weight: 62.4 kg (137 lb 9.1 oz) Labs: Lab Results Component Value Date WBC 6.4 06/07/2024 HGB 10.9 (L) 06/07/2024 HCT 35.2 (L) 06/07/2024 MCV 73 (L) 06/07/2024 PLT 259 06/07/2024 Lab Results Component Value Date GLU 91 06/07/2024 CALCIUM 8.6 06/07/2024 K 3.3 (L) 06/07/2024 CO2 27 06/07/2024 CL 106 06/07/2024 BUN 30 (H) 06/07/2024 CREATININE 1.44 (H) 06/07/2024 No results found for: AMYLASE Lab Results Component Value Date LIPASE 76 (H) 01/01/2017 Lab Results Component Value Date ALT 21 06/07/2024 AST 29 06/07/2024 ALKPHOS 60 06/07/2024 Lab Results Component Value Date INR 1.3 (H) 06/07/2024 PROTIME 15.5 (H) 06/07/2024 Imaging: No results found. Assessment: Johnathan Rodney is a 68 y.o.male with a PMH of CHF 50%, Afib on Eliquis, daily alcohol and marijuana use who was transferred to [facility] from OSH with AMS and hyperbilirubinemia. General surgery consulted for GBUS findings of acute vs. chronic cholecystitis, however the pt denies any abdominal pain, hx of postprandial pain, and has no TTP. Given the pts history and physical exam, unfortunately, it is more likely that the patients findings could be secondary to cirrhosis rather than cholecystitis. Will obtain an MRCP to further evaluate the GB as well as the liver for any cirrhotic morphology, along with a GI consult. Plan: No acute indications for surgical intervention at this time Consult GI for cirrhosis eval Follow up MRCP results Pain and nausea control PRN Electrolyte repletion PRN DVT ppx: SCD's Demetria Keller DO General Surgery, PGY-1 06/07/24 8:12 AM General Surgery C 6a-6p pager #[phone] 6p-6a pager #[phone] Cosigned by Nicolas Wells MD at 06/07/2024 9:30 PM EST Associated attestation - Nicolas Wells MD - 06/07/2024 9:30 PM EST Attending Attestation: I saw the patient. I performed the critical/leonardo portions of the service. I was directly involved in the management and treatment plan of the patient. I reviewed the resident's note. Additional Notes/Findings: Patient with history of EtOH use. He presents with elevated liver enzymes. MRCP without any signficant biliary ductal dilation. There is sludge within the gallbladder. Elevated liver enzymes - unclear etiology. Doubt gallbladder etiology. Nicolas Wells MD, FACS General Surgery and Minimally Invasive Surgery [address], [address] [place] [address] Office: [facility] 06-07-2024 History and physical note Images from the original note were not included. [facility] Hospital[facility] History & Physical Examination H&P Department of Internal Medicine 06/07/2024 Patient Name: Johnathan Rodney : 1955 No chief complaint on file. HPI Johnathan Rodney is a 68 y.o. male medical history significant for atrial fibrillation, hypertension, chronic systolic heart failure, history of alcohol use disorder, who presented to [facility] for evaluation of altered mentation. Patient history provided by chart provided on transfer as he was confused. His family brought him to the emergency room for general lethargy and confusion. He was found to be in atrial fibrillation with rapid ventricular response and was started on Cardizem infusion which he later converted to normal sinus rhythm he has been Cardizem since. He remained altered and described hallucinations. Laboratory data revealed elevated total bilirubin at 2.8 creatinine elevated at 2.11 with a BUN of 48, white blood cell count negative blood pressure was severely elevated. Patient admits to alcohol and marijuana use. Creatinine improved with IV hydration as the patient appeared clinically dehydrated. Abdominal ultrasound was obtained due to total bilirubin being elevated as well as a AST of 54 and it revealed acute versus chronic cholecystitis and a dilated right renal pelvis representing hydronephrosis and possible ureteral obstruction versus prominent per pelvic cyst. CT imaging of the brain was obtained which was negative for acute intracranial hemorrhage or acute intracranial process but did reveal chronic infarcts in the posterior right frontal lobe right occipital lobe. Due to continued confusion and MRI of the brain was obtained on 06/06/2024 which revealed no evidence of acute ischemic infarct but limited by motion artifact. Patient was treated with IV antibiotics with Rocephin and Flagyl a Arenas catheter was placed due to acute urinary retention. Neuro stroke was consulted and they recommended transfer to [facility] for evaluation with potential lumbar puncture. Per chart family was concerned about abdominal discomfort the patient was complaining about prior to hospitalization. Past Medical History: Diagnosis Date Abnormal EKG Atrial fibrillation (CMS-HCC) Back pain Bradycardia Chronic atrial fibrillation (CMS-HCC) Hypertension Hypertensive heart disease without heart failure Hypokalemia Pure hypercholesterolemia Urinary tract infection 01/2019 seen by [facility] No past surgical history on file. Allergy: Patient has no known allergies. Prior to Admission medications Medication Sig Start Date End Date Taking? Authorizing Provider amLODIPine (NORVASC) 10 mg tablet TAKE 1 TABLET BY MOUTH EVERY DAY 12/30/21 Yes Manish Ibarra PA-C apixaban (ELIQUIS) 5 mg tablet Take 1 tablet (5 mg total) by mouth every 12 (twelve) hours. 01/04/21 Yes Baldev Orozco PA-C aspirin 81 mg Take 1 tablet (81 mg total) by mouth in the morning. Yes Not In System Ref Prov hydrALAZINE (APRESOLINE) 100 mg tablet TAKE 1 TABLET (100 MG TOTAL) BY MOUTH 3 (THREE) TIMES A DAY. 02/04/21 Yes Crow Andino APRN-INFORMATION SYSTEMS SPECIALIST labetaloL (NORMODYNE) 200 mg tablet Take 2 tablets (400 mg total) by mouth in the morning and 2 tablets (400 mg total) before bedtime. 02/23/22 Yes Isaac Guillermo MD olmesartan (BENICAR) 40 mg tablet Take 1 tablet (40 mg total) by mouth daily. 08/18/20 Yes Justin Jones MD potassium chloride (K-TAB,KLOR-CON) 10 MEQ CR tablet TAKE 2 TABLETS BY MOUTH EVERY DAY 09/16/21 Yes Vanessa Louie APRN-INFORMATION SYSTEMS SPECIALIST reports that he has quit smoking. He has never used smokeless tobacco. He reports current alcohol use of about 7.0 standard drinks of alcohol per week. He reports that he does not use drugs. Family History Problem Relation Age of Onset No Known Problems Mother No Known Problems Father Review of Systems Limited due to altered mentation Constitutional: Positive for fatigue. Respiratory: Negative for cough, shortness of breath and wheezing. Cardiovascular: Negative for chest pain and leg swelling. Gastrointestinal: Negative for nausea, vomiting, abdominal pain. Genitourinary: Negative for dysuria, frequency, flank pain and difficulty urinating. Skin: Negative for pallor, rash and wound. Neurological: Positive for confusion. Psychiatric/Behavioral: Positive for hallucinations; negative for behavioral problems and agitation. Exam BP 122/86 Pulse 73 Temp 36.6 C (97.9 F) (Oral) Resp 19 SpO2 97% Constitutional: Oriented to person and time. Appears well-developed and well-nourished. No distress. Confusion noted. HENT: Normocephalic and atraumatic. Nose normal. Eyes: Conjunctivae and EOM are normal. Pupils are equal, round, and reactive to light. No scleral icterus. Neck: Neck supple. No stridor and no tracheal deviation present. Cardiovascular: Normal rate, regular rhythm, normal heart sounds and intact distal pulses. No murmur heard. No JVD. Pulmonary/Chest: Effort normal and breath sounds normal. No respiratory distress. No wheezes. No rales. No tenderness. Abdominal: Soft. Bowel sounds are normal. No distension and no mass. There is no tenderness. Musculoskeletal: Normal range of motion. No edema or tenderness. Neurological: Alert and oriented to person and time. No cranial nerve deficit. Normal muscle tone. Coordination normal. Strength 5/5 in all extremities. Conversational confusion noted. Skin: Skin is warm and dry. No rash noted. Non diaphoretic. No erythema. No pallor. Psychiatric: Normal mood and affect. Behavior is normal. Judgment and thought content currently impaired. No intake or output data in the 24 hours ending 06/07/24 0600 Labs No results found for this or any previous visit (from the past 48 hours). Imaging No results found. Principal Problem: Acute encephalopathy Assessment and Plan 1. Acute encephalopathy Possible multifactorial, negative CT brain and MRI of the brain, abdominal ultrasound imaging revealed acute versus chronic cholecystitis well as possible ureteral obstruction, also has a history of daily alcohol use per the chart Discussed with neurology team and appreciate recommendations, need to rule out infection and alcohol withdrawal 2. Hyperbilirubinemia Abdominal ultrasound with acute versus chronic cholecystitis Consult general surgery Continue IV Rocephin and Flagyl Acute hepatitis panel pending 3. RADHA Resolving with fluids and Arenas catheter Obtain stat labs Consult urology Obtain urine studies and urine culture 4. AFib with RVR Resolved prior to transfer 5. Chronic systolic heart failure Currently euvolemic EF 50% 6. Hypokalemia Replace per sliding scale 7. Acute urinary retention 8. Alcohol use disorder [facility] protocol with p.r.n. Ativan, daily multivitamin thiamine and folic acid 9. Marijuana use disorder 10. HTN DVT prophylaxis with SCD's; pharmacologic DVT prophylaxis to be addressed after neurology workup and LP recommendations Full code Electronically signed by: Aureliano Garduno DO This note was created with the assistance of a speech-recognition program. Although the intention is to generate a document that actually reflects the content of the visit, no guarantees can be provided that every mistake has been identified and corrected by editing. [employer] Work Phone: 06-07-2024 History and physical note Images from the original note were not included. [facility] Hospitalists History & Physical Examination H&P Department of Internal Medicine 06/07/2024 Patient Name: Johnathan Rodney : 1955 No chief complaint on file. HPI Johnathan Rodney is a 68 y.o. male medical history significant for atrial fibrillation, hypertension, chronic systolic heart failure, history of alcohol use disorder, who presented to [facility] for evaluation of altered mentation. Patient history provided by chart provided on transfer as he was confused. His family brought him to the emergency room for general lethargy and confusion. He was found to be in atrial fibrillation with rapid ventricular response and was started on Cardizem infusion which he later converted to normal sinus rhythm he has been Cardizem since. He remained altered and described hallucinations. Laboratory data revealed elevated total bilirubin at 2.8 creatinine elevated at 2.11 with a BUN of 48, white blood cell count negative blood pressure was severely elevated. Patient admits to alcohol and marijuana use. Creatinine improved with IV hydration as the patient appeared clinically dehydrated. Abdominal ultrasound was obtained due to total bilirubin being elevated as well as a AST of 54 and it revealed acute versus chronic cholecystitis and a dilated right renal pelvis representing hydronephrosis and possible ureteral obstruction versus prominent per pelvic cyst. CT imaging of the brain was obtained which was negative for acute intracranial hemorrhage or acute intracranial process but did reveal chronic infarcts in the posterior right frontal lobe right occipital lobe. Due to continued confusion and MRI of the brain was obtained on 06/06/2024 which revealed no evidence of acute ischemic infarct but limited by motion artifact. Patient was treated with IV antibiotics with Rocephin and Flagyl a Arenas catheter was placed due to acute urinary retention. Neuro stroke was consulted and they recommended transfer to [facility] for evaluation with potential lumbar puncture. Per chart family was concerned about abdominal discomfort the patient was complaining about prior to hospitalization. Past Medical History: Diagnosis Date Abnormal EKG Atrial fibrillation (CMS-HCC) Back pain Bradycardia Chronic atrial fibrillation ([facility]) Hypertension Hypertensive heart disease without heart failure Hypokalemia Pure hypercholesterolemia Urinary tract infection 01/2019 seen by [facility] No past surgical history on file. Allergy: Patient has no known allergies. Prior to Admission medications Medication Sig Start Date End Date Taking? Authorizing Provider amLODIPine (NORVASC) 10 mg tablet TAKE 1 TABLET BY MOUTH EVERY DAY 12/30/21 Yes Manish Ibarra PA-C apixaban (ELIQUIS) 5 mg tablet Take 1 tablet (5 mg total) by mouth every 12 (twelve) hours. 01/04/21 Yes Baldev Orozco PA-C aspirin 81 mg Take 1 tablet (81 mg total) by mouth in the morning. Yes Not In System Ref Prov hydrALAZINE (APRESOLINE) 100 mg tablet TAKE 1 TABLET (100 MG TOTAL) BY MOUTH 3 (THREE) TIMES A DAY. 02/04/21 Yes Crow Andino APRN-INFORMATION SYSTEMS SPECIALIST labetaloL (NORMODYNE) 200 mg tablet Take 2 tablets (400 mg total) by mouth in the morning and 2 tablets (400 mg total) before bedtime. 02/23/22 Yes Isaac Guillermo MD olmesartan (BENICAR) 40 mg tablet Take 1 tablet (40 mg total) by mouth daily. 08/18/20 Yes Justin Jones MD potassium chloride (K-TAB,KLOR-CON) 10 MEQ CR tablet TAKE 2 TABLETS BY MOUTH EVERY DAY 09/16/21 Yes Vanessa Louie APRN-INFORMATION SYSTEMS SPECIALIST reports that he has quit smoking. He has never used smokeless tobacco. He reports current alcohol use of about 7.0 standard drinks of alcohol per week. He reports that he does not use drugs. Family History Problem Relation Age of Onset No Known Problems Mother No Known Problems Father Review of Systems Limited due to altered mentation Constitutional: Positive for fatigue. Respiratory: Negative for cough, shortness of breath and wheezing. Cardiovascular: Negative for chest pain and leg swelling. Gastrointestinal: Negative for nausea, vomiting, abdominal pain. Genitourinary: Negative for dysuria, frequency, flank pain and difficulty urinating. Skin: Negative for pallor, rash and wound. Neurological: Positive for confusion. Psychiatric/Behavioral: Positive for hallucinations; negative for behavioral problems and agitation. Exam BP 122/86 Pulse 73 Temp 36.6 C (97.9 F) (Oral) Resp 19 SpO2 97% Constitutional: Oriented to person and time. Appears well-developed and well-nourished. No distress. Confusion noted. HENT: Normocephalic and atraumatic. Nose normal. Eyes: Conjunctivae and EOM are normal. Pupils are equal, round, and reactive to light. No scleral icterus. Neck: Neck supple. No stridor and no tracheal deviation present. Cardiovascular: Normal rate, regular rhythm, normal heart sounds and intact distal pulses. No murmur heard. No JVD. Pulmonary/Chest: Effort normal and breath sounds normal. No respiratory distress. No wheezes. No rales. No tenderness. Abdominal: Soft. Bowel sounds are normal. No distension and no mass. There is no tenderness. Musculoskeletal: Normal range of motion. No edema or tenderness. Neurological: Alert and oriented to person and time. No cranial nerve deficit. Normal muscle tone. Coordination normal. Strength 5/5 in all extremities. Conversational confusion noted. Skin: Skin is warm and dry. No rash noted. Non diaphoretic. No erythema. No pallor. Psychiatric: Normal mood and affect. Behavior is normal. Judgment and thought content currently impaired. No intake or output data in the 24 hours ending 06/07/24 0600 Labs No results found for this or any previous visit (from the past 48 hours). Imaging No results found. Principal Problem: Acute encephalopathy Assessment and Plan 1. Acute encephalopathy Possible multifactorial, negative CT brain and MRI of the brain, abdominal ultrasound imaging revealed acute versus chronic cholecystitis well as possible ureteral obstruction, also has a history of daily alcohol use per the chart Discussed with neurology team and appreciate recommendations, need to rule out infection and alcohol withdrawal 2. Hyperbilirubinemia Abdominal ultrasound with acute versus chronic cholecystitis Consult general surgery Continue IV Rocephin and Flagyl Acute hepatitis panel pending 3. RADHA Resolving with fluids and Arenas catheter Obtain stat labs Consult urology Obtain urine studies and urine culture 4. AFib with RVR Resolved prior to transfer 5. Chronic systolic heart failure Currently euvolemic EF 50% 6. Hypokalemia Replace per sliding scale 7. Acute urinary retention 8. Alcohol use disorder [facility] protocol with p.r.n. Ativan, daily multivitamin thiamine and folic acid 9. Marijuana use disorder 10. HTN DVT prophylaxis with SCD's; pharmacologic DVT prophylaxis to be addressed after neurology workup and LP recommendations Full code Electronically signed by: Aureliano Garduno DO This note was created with the assistance of a speech-recognition program. Although the intention is to generate a document that actually reflects the content of the visit, no guarantees can be provided that every mistake has been identified and corrected by editing. documented in this encounter [facility] 06-07-2024 Consult note Associated Order (s): IP CONSULT TO NEUROLOGY Images from the original note were not included. [facility] Neurology General Neurology Consultation Note Consult Neurology Service: [phone] Primary Team: NORMA Chief Complaint and Reason for Consultation: Altered mental status and hallucinations History: Johnathan Rodney is a 68 y.o. year old male for whom Neurology was consulted for chief complaint of altered mental status and hallucinations. Patient has a past medical history notable for atrial fibrillation (unknown compliance with anticoagulation), hypertension, chronic systolic heart failure, history of alcohol use disorder, hyperlipidemia, and medication noncompliance. Patient was initially evaluated at outside hospital by tele Neurology for concerns of altered mental status and hallucinations. Per chart review, patient was brought in by family due to concerns of confusion as well as 2 week history of hallucinations. It was reported that patient lived alone and it was unclear if patient was compliant with his medications. Per report patient's daughter stated that she noted that the patient was having hallucinations of spiders that were not actually present and they hallucinations were progressively getting more severe. Patient was becoming more paranoid. Additionally, it was noted that patient would use alcohol daily as viral marijuana and cigarettes. 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 MRI brain was obtained which showed no acute infarcts. Patient was noted to be in AFib with RVR at outside hospital. Additionally abdominal ultrasound showed concerns for acute versus chronic cholecystitis. Patient was started on IV Rocephin and Flagyl. Tele neurology recommended that the patient be further evaluated by Neurology and consider LP for any concerns for occult infection. Patient was then transferred to [facility] for further evaluation. On initial examination, patient was A&O x3 oriented person, place, and time. Patient was disoriented situation he believes he was brought in by the police for drunk driving to the hospital. Patient appears to have some problems with retrograde memory including believing that his 7 months ago when in fact it was reported that she 4 years ago. Patient denies any visual or auditory hallucinations however states that he does start at his 's picture a lot. Patient was able to tell me current events and how he was currently feeling however seems to have difficulty with past memories. No focal deficits on examination. Past Medical History/Surgical History: Active Ambulatory Problems Diagnosis Date Noted Pure hypercholesterolemia Hypokalemia Hypertensive heart disease without heart failure Chronic atrial fibrillation ([facility]) Abnormal EKG Bradycardia Syncope 09/15/2017 Resolved Ambulatory Problems Diagnosis Date Noted Hypertension Past Medical History: Diagnosis Date Atrial fibrillation ([facility]) Back pain Urinary tract infection 01/2019 Family History: Family History Problem Relation Age of Onset No Known Problems Mother No Known Problems Father Social History: Social History Socioeconomic History Marital status: Spouse name: Not on file Number of children: Not on file Years of education: Not on file Highest education level: Not on file Occupational History Not on file Tobacco Use Smoking status: Former Smokeless tobacco: Never Substance and Sexual Activity Alcohol use: Yes Alcohol/week: 7.0 standard drinks of alcohol Types: 7 Cans of beer per week Drug use: No Sexual activity: Not on file Other Topics Concern Caffeine Use Yes Social History Narrative Not on file Social Drivers of Health Financial Resource Strain: Not on file Food Insecurity: Not on file Transportation Needs: Not on file Physical Activity: Not on file Stress: Not on file Social Connections: Not on file Interpersonal Safety: Not on file Housing Instability: Not on file Medications: Current Facility-Administered Medications: acetaminophen (TYLENOL) tablet 650 mg, 650 mg, oral, Q4H PRN, Aureliano M Laureen, DO dextrose (GLUTOSE) 40 % gel 15 g, 15 g, oral, PRN, Aureliano Wilson Laureen, DO dextrose 5 % (D5W) infusion, 100 mL/hr, intravenous, Continuous PRN, Aureliano Katie Laureen, DO dextrose 50 % in water (D50W) 50% solution 25 mL, 25 mL, intravenous, PRN, Aureliano Wilson Laureen, DO glucagon HCL injection 1 mg, 1 mg, intramuscular, PRN, Aureliano M Laureen, DO sodium chloride 0.9 % flush 3 mL, 3 mL, intravenous, PRN, Aureliano M Laureen, DO sodium chloride 0.9 % flush 3 mL, 3 mL, intravenous, Q12H TONY, Aureliano M Laureen, DO sodium chloride 0.9 % flush bag, 25 mL, intravenous, PRN, Aureliano M Laureen, DO sodium chloride 0.9 % infusion, 20 mL/hr, intravenous, Continuous PRN, Aureliano M Laureen, DO Allergies: No Known Allergies Complete Review of Systems: Review of Systems Constitutional: Negative for chills and fever. Eyes: Negative for visual disturbance. Cardiovascular: Negative for chest pain. Respiratory: Negative for shortness of breath. Gastrointestinal: Negative for abdominal pain, nausea and vomiting. Genitourinary: Negative for bladder incontinence. Neurological: Negative for headaches, numbness and weakness. Psychiatric/Behavioral: Positive for altered mental status and hallucinations. Physical Exam Vital Signs: Vitals: 06/07/24 0525 BP: 122/86 Pulse: 73 Resp: 19 Temp: 36.6 C (97.9 F) SpO2: 97% Neurological Exam Mental Status Awake and alert. Oriented only to person, place and time. Memory: Patient appears to have lapses in retrograde memory.. Speech is normal. Language is fluent with no aphasia. Attention and concentration are normal. Fund of knowledge is appropriate for level of education. Cranial Nerves CN II: Visual acuity is normal. Visual sena full to confrontation. CN III, IV, : Extraocular movements intact bilaterally. Normal lids and orbits bilaterally. Pupils equal round and reactive to light bilaterally. CN V: Facial sensation is normal. CN VII: Full and symmetric facial movement. CN VIII: Hearing is normal. CN IX, X: Palate elevates symmetrically. Normal gag reflex. CN XI: Shoulder shrug strength is normal. CN XII: Tongue midline without atrophy or fasciculations. Motor Normal muscle bulk throughout. Normal muscle tone. No abnormal involuntary movements. Strength is 5/5 throughout all four extremities. Sensory Light touch is normal in upper and lower extremities. Reflexes Right Left Brachioradialis 2+ 2+ Biceps 2+ 2+ Patellar 2+ 2+ Achilles 2+ 2+ Right Plantar: mute Left Plantar: mute Right pathological reflexes: Ankle clonus absent. Left pathological reflexes: Ankle clonus absent. Coordination Right: Pwtlma-[id number] normal.Left: Pbxnip-[id number]-hcvs normal. Gait Deferred. Objective Pertinent Labs: No results found for this or any previous visit (from the past 72 hours). Imaging: No results found. Other Testing: PROBLEM LIST: Patient Active Problem List Diagnosis Pure hypercholesterolemia Hypokalemia Hypertensive heart disease without heart failure Chronic atrial fibrillation (CMS-HCC) Abnormal EKG Bradycardia Syncope Acute encephalopathy Assessment: Johnathan Rodney is a 68 y.o. year old male for whom Neurology was consulted for chief complaint of altered mental status and hallucinations. Patient has a past medical history notable for atrial fibrillation (unknown compliance with anticoagulation), hypertension, chronic systolic heart failure, history of alcohol use disorder, hyperlipidemia, and medication noncompliance. CT head at outside hospital showed no acute intracranial findings. MRI brain from outside hospital showed no acute intracranial findings. Initial examination, patient was A&O x3 oriented to person, place, time but disoriented to situation as well as has some lapses and retrograde memory. Impression: Encephalopathy and hallucinations most likely secondary to metabolic/infectious etiologies versus less likely seizure activity versus cerebrovascular lesion Plan: Follow up on routine EEG Neurology consult Service will continue to follow Recommend continued medical management per primary team Discussed with Dr. Marie Signed by Marii Potter MD Neurology Resident, [facility] Please contact via secure chat Staffed with: Dr. Marie This patient is being followed by the Neurology Resident service. Contact attending directly during these hours: Monday to 7:30-8:30 A.M. to Monday 12-1:00 p.m. Primary Neurology service: [phone] Consult neurology service: [phone] Resident Stroke Service: [phone] If the patient belongs to the Stroke JAK service please contact the Stroke JAK directly. Cosigned by Catrina Marie MD at 06/07/2024 4:29 PM EST Associated attestation - Catrina Marie MD - 06/07/2024 4:29 PM EST I have discussed the case of Johnathan Rodney, including pertinent history and exam findings with the resident. I have seen and examined the patient and the leonardo elements of the encounter have been performed by me. I agree with the assessment, plan and orders as documented by the resident with changes made to the note as needed. Lab Results Component Value Date LDLCALC 113 04/20/2020 No results found for: CHLPL Lab Results Component Value Date TRIG 114 04/20/2020 Lab Results Component Value Date HDL 62 04/20/2020 HDL 52 11/17/2014 Lab Results Component Value Date LDLCALC 113 04/20/2020 No results found for: LABVLDL No components found for: LABA1C No components found for: EAG Lab Results Component Value Date [id number] >1,500 (H) 06/07/2024 Neurological work up: CT head CTA head and neck MRI brain 2 D echo Assessment and recommendations Delirium Hypertension RADHA AFib with RVR Electrolytes imbalance Acute urinary retention Alcoholism Upon examination patient is awake, oriented to self, following commands in his almost close to back to baseline. No focal neurological deficits were noted upon examination. The patient's neurological workup, including a CT of the brain, has shown basal ganglia hyperdensities, along with a right occipital hypodensity. The previous MRI of the brain was significantly limited by motion artifact, restricting its diagnostic utility. Given these limitations, I recommend obtaining a repeat MRI of the brain with contrast for a more detailed evaluation. Additionally, an EEG is currently pending to assess for possible seizure activity. Thank you for the consult. Neurology will follow. Catrina Marie MD Neurology This note is created with the assistance of a speech-recognition program. While intending to generate a document that actually reflects the content of the visit, the document can still have some errors including those of syntax and sound a- like substitutions which may escape proofreading. In such instances, actual meaning can be extrapolated by contextual derivation. [employer] Work Phone: Evaluation + Plan note No data available for this section [facility] Evaluation note Diagnosis Acute encephalopathy- Primary documented [facility] instructionsNot on filedocumented in this [facility] Dis[facility] instructions No data available for this section [facility] InstructionsNot on filedocumented in this encounter [facility] No data available for this section [facility] reason for referral (narrative)* Misc (Routine) - Pending Review Specialty Diagnoses / Procedures Referred By Kelley foss Referred To Contact Procedures Adult diet Tabatha León MD [address] [place] [address] Phone: tel: fax: Referral ID Status Reason Start Date Expiration Date V isits Requested Visits Authorized [id number] Pending Review 06/12/2024 06/12/2025 [facility] N[facility] Auth/Cert Specialty Diagnoses / Procedures Referred By Kelley foss Referred To Contact Diagnoses Acute Encephalopathy [address] [address] Referral ID Status Reason Start Date Expiration Date Visits Re quested Visits Authorized [id number] 1 1 [facility] Summary Purpose Family History No Family History Records FoundNo Family History Records FoundNo Family History Records FoundNo Family History Records Found No data available for this section No Family History Records Found Advance Directives No Advanced Directives Records Found Date Activated Date Inactivated Comments 06/07/2024 5:32 AM Date Activated Date Inactivated Comments 06/07/2024 5:32 AM Additional Source Comments (unrecognized sect ion and content) No Status Records FoundNo Status Records FoundNo Status Records FoundNo Status Records FoundNo Status Records Found INFORMATION SOURCE (unrecogn ized section and content) DATE CREATED AUTHOR 12/19/2018 [facility] DATE CREATED AUTHOR AUTHOR'S ORGANIZ ATION 12/07/2023 [facility] DATE CREATED AUTHOR AUTHOR'S ORGANIZ ATION 06/12/2024 [facility] DATE CREATED AUTHOR AUTHOR'S ORGANIZ ATION 06/14/2024 [facility] DATE CREATED AUTHOR AUTHOR'S ORGANIZ ATION 07/22/2024 [facility] Care Teams (unrecognized sec tion and content) Registered Midwife Relationship Specialty Start Date End Date Shaikh Juarez MD PCP - General Internal Medicine 05/24/23 Registered Midwife Relationship Specialty Start Date End Date [facility] [address], [place] PCP - General Family Medicine 01/01/17 Registered Midwife Relationship Specialty Start Date End Date [facility] [address], [place] PCP - General Family Medicine 01/01/17 Scheduled Active and Recently Administ ered Medications (unrecognized section and content) Medication Order 06/10/2024 06/11/2024 06/12/2024 albumin human 25 % IVPB Premix 25 g (COMPLETED) 25 g, intravenous, Once, On Mon06/10/24 at 0615, For 1 dose, Do not exceed 1 mL/minute in patients with normal plasma volume; 2 to 3 mL/minute in patients with hypoproteinemia For BUMINATE, administer using a 15 micron or smaller filter. A filter is NOT required for administration by other brands., Indication: Other, Indication: Hypotension, volume overload 0626 (New Bag - Provider: Rola Burrell RN) apixaban (ELIQUIS) tablet 5 mg 5 mg, oral, 2 times daily, First dose on Mon06/11/24 at 2100, Indication: Nonvalvular Atrial Fibrillation (NVAF) 2057 (Given - Provider: Kate Benson RN) 917 (Given - Provider: Shazia Haynes RN)2099 (Due) atorvastatin (LIPITOR) tablet 40 mg 40 mg, oral, Nightly, First dose on Mon06/07/24 at 2200, Look-alike/sound-alike medication - verify indication for use. 2028 (Given - Provider: Kate Benson RN) 2058 (Given - Provider: Kate Benson RN) 2199 (Due) carvediloL (COREG) tablet 12.5 mg 12.5 mg, oral, 2 times daily, First dose on Mon06/08/24 at 2100, HOLD FOR SYSTOLIC BLOOD PRESSURE LESS THAN 100 MMHG OR HEART RATE LESS THAN 50 Give with meal or snack. Look-alike/sound-alike medication - verify indication for use. 0837 (Given - Provider: Rebecca Arredondo RN)2028 (Given - Provider: Kate Benson RN) 0857 (Given - Provider: Shazia Haynes RN)2058 (Given - Provider: Kate Benson RN) 0918 (Given - Provider: Shazia Haynes, RN)2100 (Due) cefTRIAXone (ROCEPHIN) IVPB 1000 mg/50 mL in iso-osmotic dextrose (20 mg/mL premix) (CANCELED) 1,000 mg, intravenous, at 100 mL/hr, Administer over 30 Minutes, Every 24 hours, First dose on Mon06/07/24 at 0630, Look-alike/sound-alike medication - verify indication for use. Do not co-administer with calcium-containing solutions such as Lactated Ringers., Indication: Intra-abdominal 1004 (New Bag - Provider: Rebecca Arredondo RN)1034 (Stop Bag - Provider: Rebecca Arredondo RN) 1254 (New Bag - Provider: Shazia Haynes, JAMEE)1324 (Stop Bag - Provider: Shazia Haynes, RN) cefTRIAXone (ROCEPHIN) IVPB 1000 mg/50 mL in iso-osmotic dextrose (20 mg/mL premix) 1,000 mg, intravenous, at 100 mL/hr, Administer over 30 Minutes, Every 24 hours, First dose (after last modification) on Mon06/12/24 at 1030, For 1 day, Look-alike/sound-alike medication - verify indication for use. Do not co-administer with calcium-containing solutions such as Lactated Ringers., Indication: Intra-abdominal 1215 (New Bag - Provider: Shazia Haynes RN)1245 (Stop Bag - Provider: Shazia Haynes, RN) enoxaparin (LOVENOX) syringe 40 mg (CANCELED) 40 mg, subcutaneous, Daily, First dose on Mon06/10/24 at 0900, Look-alike/sound-alike medication - verify indication for use. 0904 (Given - Provider: Rebecca Arredondo RN) 0857 (Given - Provider: Shazia Haynes, JAMEE) folic acid (FOLVITE) tablet 1 mg 1 mg, oral, Daily, First dose on Mon06/07/24 at 0900, Look-alike/sound-alike medication - verify indication for use. 0837 (Given - Provider: Rebecca Arredondo RN) 0857 (Given - Provider: Shazia Haynes RN) 0918 (Given - Provider: Shazia Haynes, RN) furosemide (LASIX) tablet 40 mg 40 mg, oral, Daily, First dose on Mon06/11/24 at 0900, HOLD FOR BLOOD PRESSURE LESS THAN 100 MMHG Look-alike/sound-alike medication - verify indication for use. 0857 (Given - Provider: Shazia Haynes RN) 0918 (Given - Provider: Shazia Haynes, RN) lidocaine (URO-JET) 2 % jelly 1 Application 1 Application, urethral, Once, On Mon06/10/24 at 1300, For 1 dose 1300 (Due) melatonin (CIRCADIN) tablet 5 mg 5 mg, oral, Nightly, First dose on Mon06/07/24 at 2200 2028 (Given - Provider: Kate Benson RN) 2058 (Given - Provider: Kate Benson RN) 2199 (Due) metroNIDAZOLE (FLAGYL) IVPB 500 mg/100 mL in iso-osmotic sodium chloride (5 mg/mL premix) (CANCELED) 500 mg, intravenous, at 100 mL/hr, Administer over 60 Minutes, Every 12 hours, First dose (after last reorder) on Mon06/07/24 at 0630, Look-alike/sound-alike medication - verify indication for use., Indication: Intra-abdominal 0844 (New Bag - Provider: Rebecca Arredondo RN)0944 (Stop Bag - Provider: Rebecca Arredondo RN)2036 (New Bag - Provider: Kate Benson, JAMEE)2136 (Stop Bag - Provider: Kate Benson, RN) 0903 (New Bag - Provider: Shazia Haynes RN)1003 (Stop Bag - Provider: Shazia Haynes RN) metroNIDAZOLE (FLAGYL) IVPB 500 mg/100 mL in iso-osmotic sodium chloride (5 mg/mL premix) (COMPLETED) 500 mg, intravenous, at 100 mL/hr, Administer over 60 Minutes, Every 12 hours, First dose (after last modification) on Mon06/11/24 at 2100, For 1 day, Look-alike/sound-alike medication - verify indication for use., Indication: Intra-abdominal 2103 (New Bag - Provider: Kate Benson RN)2203 (Stop Bag - Provider: Kate Benson RN) 09 (New Bag - Provider: Shazia Haynes RN)1023 (Stop Bag - Provider: Shazia Haynes RN) midodrine (PROAMATINE) tablet 5 mg 5 mg, oral, 3 times daily, First dose on Mon06/09/24 at 1400, Hold if blood pressure is greater than 100 mmHg Look-alike/sound-alike medication - verify indication for use. 0600 (Hold - Provider: Rola Burrell RN - Reason: Order parameters not met - Comment: bp- 116/98)1400 (Hold - Provider: Rebecca Arredondo RN - Reason: Order parameters not met)2100 (Not Given - Provider: Kate Benson RN - Reason: Order parameters not met - Comment: bp 144/97) 0600 (Hold - Provider: Kaet Benson RN - Reason: Order parameters not met - Comment: bp 121/92)1400 (Not Given - Provider: Shazia Haynes RN - Reason: Order parameters not met)2100 (Not Given - Provider: Kate Benson RN - Reason: Order parameters not met) 0600 (Hold - Provider: Kate Benson RN - Reason: Order parameters not met)1400 (Not Given - Provider: Shazia Haynes RN - Reason: Patient not available)2200 (Due) QUEtiapine (SEROquel) tablet 25 mg 25 mg, oral, Nightly, First dose on Mon06/07/24 at 2200, Look-alike/sound-alike medication - verify indication for use. 2028 (Given - Provider: Kate Benson RN) 2058 (Given - Provider: Kate Benson RN) 2199 (Due) sennosides-docusate sodium (SENOKOT-S) 8.6-50 mg 2 tablet 2 tablet, oral, Nightly, First dose on Mon06/11/24 at 2200 2100 (Not Given - Provider: Kate Benson RN - Reason: Patient/family refused) 2199 (Due) sodium chloride 0.9 % flush 3 mL 3 mL, intravenous, Every 12 hours scheduled, First dose on Mon06/07/24 at 0900 0837 (Given - Provider: Rebecca Arredondo RN)2028 (Given - Provider: Kate Benson RN) 0858 (Given - Provider: Shazia Haynes, JAMEE)2058 (Given - Provider: Kate Benson RN) 0918 (Given - Provider: Shazia Haynes, JAMEE)2099 (Due) tamsulosin (FLOMAX) 24 hr capsule 0.4 mg 0.4 mg, oral, Nightly, First dose on Mon06/08/24 at 2200, Do not crush or chew. 2028 (Given - Provider: Kate Benson RN) 2057 (Given - Provider: Kate Benson RN) 2199 (Due) thiamine HCl (VITAMIN B-1) tablet 100 mg 100 mg, oral, Daily, First dose on Mon06/07/24 at 0630, Look-alike/sound-alike medication - verify indication for use. 0837 (Given - Provider: Rebecca Arredondo RN) 0858 (Given - Provider: Shazia Haynes, JAMEE) 0918 (Given - Provider: Shazia Haynes, RN) PRN Medication Order 06/10/2024 06/11/2024 06/12/2024 acetaminophen (TYLENOL) tablet 650 mg 650 mg, oral, Every 4 hours PRN, Temperature greater than 38.3 C, Starting on Mon06/07/24 at 0531, [Warning: Total Acetaminophen not to exceed more than 4 grams (4000 mg) in 24 hours] dextrose (GLUTOSE) 40 % gel 15 g 15 g, oral, As needed, low blood sugar, blood glucose less than 70 mg/dL, Starting on Mon06/07/24 at 0530, If patient conscious and taking PO. If blood glucose is not greater than 70 mg/dL after initial treatment, repeat treatment. dextrose 5 % (D5W) infusion 100 mL/hr, intravenous, Continuous PRN, blood glucose less than 70 mg/dL, Starting on Mon06/07/24 at 0530, Use immediately following dextrose 50% or glucagon treatment for patients who are unconscious or NPO. Contact prescriber for additional orders. If blood glucose is not greater than 70 mg/dL after initial treatment, repeat treatment. dextrose 50 % in water (D50W) 50% solution 25 mL 25 mL, intravenous, As needed, low blood sugar, blood glucose less than 70 mg/dL and unconscious or NPO with IV access, Starting on Mon06/07/24 at 0530, Push over 1-3 minutes STAT. If conscious and not NPO, immediately follow with meal tray or high protein (7 grams) snack if tray not available. If NPO, initiate 5% dextrose in water at 100 mL/hr and contact prescriber for additional orders. If blood glucose is not greater than 70 mg/dL after initial treatment, repeat treatment. VESICANT (RED) Warning: HYPERTONIC solution. gadoteridoL (PROHANCE) injection 6.22 mmol 12.44 mL (COMPLETED) 6.22 mmol (0.1 mmol/kg 62.2 kg), intravenous, Once in imaging, contrast, MRI, Starting on 06/10/24 at 0211, For 1 dose, VESICANT (RED), Indications: magnetic resonance imaging 0224 (Given - Provider: LISSY Stevens) glucagon HCL injection 1 mg 1 mg, intramuscular, As needed, low blood sugar, blood glucose less than 70 mg/dL and unconscious or NPO without IV access., Starting on Mon06/07/24 at 0530, If conscious and not NPO, immediately follow with meal tray or high protein (7Grams) snack if tray not available. If NPO, initiate IV 5% Dextrose/Water at 100 mL/hr and contact prescriber for additional orders. If blood glucose is not greater than 70 mg/dL after initial treatment, repeat treatment. LORazepam (ATIVAN) injection 1 mg(Linked Group 1) 1 mg, intravenous, Every 4 hours PRN, withdrawal, Score 8-10, Starting on 06/08/24 at 1526, for CIWA-AR score 8-10 if NPO / not tolerating PO If NPO or not tolerating PO Look-alike/sound-alike medication - verify indication for use;IV use requires increased monitoring of HR,BP,Respirations and Pulse Oximetry;For IV-dilute with equal volume PF sod chloride, Indication: Alcohol Withdrawal LORazepam (ATIVAN) injection 1 mg(Linked Group 1) 1 mg, intramuscular, Every 4 hours PRN, withdrawal, Score 8-10, Starting on 06/08/24 at 1526, for CIWA-AR score 8-10 if NPO / not tolerating PO and no IV access If NPO or not tolerating PO and no IV access Look-alike/sound-alike medication - verify indication for use;IV use requires increased monitoring of HR,BP,Respirations and Pulse Oximetry;For IV-dilute with equal volume PF sod chloride, Indication: Alcohol Withdrawal LORazepam (ATIVAN) injection 2 mg(Linked Group 2) 2 mg, intravenous, Every 4 hours PRN, withdrawal, Score 11-15, Starting on 06/08/24 at 1528, for CIWA-AR score 11-15 if NPO / not tolerating PO If NPO or not tolerating PO Look-alike/sound-alike medication - verify indication for use;IV use requires increased monitoring of HR,BP,Respirations and Pulse Oximetry;For IV-dilute with equal volume PF sod chloride, Indication: Alcohol Withdrawal LORazepam (ATIVAN) injection 2 mg(Linked Group 2) 2 mg, intramuscular, Every 4 hours PRN, withdrawal, Score 11-15, Starting on 06/08/24 at 1528, for CIWA-AR score 11-15 if NPO / not tolerating PO and no IV access If NPO or not tolerating PO and no IV access Look-alike/sound-alike medication - verify indication for use;IV use requires increased monitoring of HR,BP,Respirations and Pulse Oximetry;For IV-dilute with equal volume PF sod chloride, Indication: Alcohol Withdrawal LORazepam (ATIVAN) injection 3 mg(Linked Group 3) 3 mg, intravenous, Every 4 hours PRN, withdrawal, Score 16-19, Starting on 06/08/24 at 1527, for CIWA-AR score 16-19 if NPO / not tolerating PO If NPO or not tolerating PO Look-alike/sound-alike medication - verify indication for use;IV use requires increased monitoring of HR,BP,Respirations and Pulse Oximetry;For IV-dilute with equal volume PF sod chloride, Indication: Alcohol Withdrawal LORazepam (ATIVAN) injection 3 mg(Linked Group 3) 3 mg, intramuscular, Every 4 hours PRN, withdrawal, Score 16-19, Starting on 06/08/24 at 1527, for CIWA-AR score 16-19 if NPO / not tolerating PO and no IV access If NPO or not tolerating PO and no IV access Look-alike/sound-alike medication - verify indication for use;IV use requires increased monitoring of HR,BP,Respirations and Pulse Oximetry;For IV-dilute with equal volume PF sod chloride, Indication: Alcohol Withdrawal LORazepam (ATIVAN) tablet 1 mg(Linked Group 1) 1 mg, oral, Every 4 hours PRN, withdrawal, Score 8-10, Starting on 06/08/24 at 1526, for CIWA-AR score 8-10 Administer orally if tolerating PO Look-alike/sound-alike medication - verify indication for use. LORazepam (ATIVAN) tablet 2 mg(Linked Group 2) 2 mg, oral, Every 4 hours PRN, withdrawal, Score 11-15, Starting on 06/08/24 at 1528, for CIWA-AR score 11-15 Administer orally if tolerating PO Look-alike/sound-alike medication - verify indication for use. LORazepam (ATIVAN) tablet 3 mg(Linked Group 3) 3 mg, oral, Every 4 hours PRN, withdrawal, Score 16-19, Starting on 06/08/24 at 1527, for CIWA-AR score 16-19 Administer orally if tolerating PO Look-alike/sound-alike medication - verify indication for use. magnesium sulfate IVPB 2000 mg/50 mL in iso-osmotic water (40 mg/mL premix) 2,000 mg, intravenous, at 25 mL/hr, Administer over 120 Minutes, As needed, Magnesium level 1.7 to 1.9 mg/dL, or Ionized Magnesium level 0.45 to 0.5 mmol/L., Starting on Mon06/07/24 at 0612, Recheck magnesium level 4 hours after infusion complete. With each magnesium result continue the replacement orders as needed. magnesium sulfate IVPB 4000 mg/100 mL in iso-osmotic water (40 mg/mL premix) 4,000 mg, intravenous, at 25 mL/hr, Administer over 240 Minutes, As needed, Magnesium level 1.6 mg/dL or less, or Ionized Magnesium level 0.44 mmol/L or less, Starting on Mon06/07/24 at 0612, Recheck magnesium level 4 hours after infusion complete. With each magnesium result continue the replacement orders as needed. metoprolol (LOPRESSOR) injection 5 mg 5 mg, intravenous, Every 6 hours PRN, For heart rate greater than 120, Starting on Mon06/08/24 at 1711, Look-alike/sound-alike medication - verify indication for use. 1642 (Given - Provider: Shazia Haynes, RN) jrnuvtqs-wfgx-LI-calcium &mins (THERAGRAN-M) 9 mg iron-400 mcg tablet 1 tablet 1 tablet, oral, Daily PRN, administer instead of IV MVI when patient tolerating oral diet, Starting on Mon06/07/24 at 0620 polyethylene glycol (GLYCOLAX) packet 17 g 17 g, oral, Daily PRN, constipation, Starting on Mon06/11/24 at 0753, Look-alike/sound-alike medication - verify indication for use. Dissolve 1 packet (17 gm) in 8 ounces of water, juice, soda, coffee or tea. potassium chloride (K-TAB,KLOR-CON) CR tablet 20-40 mEq(Linked Group 4) 20-40 mEq, oral, As needed, Potassium Supplementation, Starting on Mon06/07/24 at 0612, Progress to oral potassium replacement when patient tolerating oral intake. If dose administered, recheck potassium level 4 hours after last dose. For potassium level 3.4 to 3.8 mmol/L and GFR less than 30 mL/min or dialysis=20 mEq. For potassium level 3.1 to 3.3 mmol/L and GFR less than 30 mL/min or dialysis=30 mEq. For potassium level 3 mmol/L or less and GFR less than 30 mL/min or dialysis=40 mEq. Do not crush or chew. 1838 (Given - Provider: Shazia Haynes, JAMEE) potassium chloride (KAYCIEL) 20 mEq/15 mL solution 20-40 mEq(Linked Group 4) 20-40 mEq, oral, As needed, Potassium Supplementation, Starting on Mon06/07/24 at 0612, Progress to oral potassium replacement when patient tolerating oral intake. If dose administered, recheck potassium level 4 hours after last dose. For potassium level 3.4 to 3.8 mmol/L and GFR less than 30 mL/min or dialysis=20 mEq. For potassium level 3.1 to 3.3 mmol/L and GFR less than 30 mL/min or dialysis=30 mEq. For potassium level 3 mmol/L or less and GFR less than 30 mL/min or dialysis=40 mEq. Must dilute before use - Mix in 3-8 ounces of water or juice before administration When administering in feeding tube, flush before and after per policy and monitor potassium levels 1837 (See Alternative - Provider: Shazia Haynes RN) potassium chloride IVPB 10 mEq/100 mL in water (0.1 mEq/mL premix)(Linked Group 4) 10 mEq, intravenous, at 100 mL/hr, Administer over 60 Minutes, As needed, POTASSIUM REPLACEMENT, Starting on Mon06/07/24 at 0612, IV if unable to use oral/enteral with the current dosing strategies Potassium level 3 mmol/L or less administer Potassium Chloride 40 mEq Potassium level 3.1 to 3.3 mmol/L administer Potassium Chloride 30 mEq Potassium level 3.4 to 3.8 mmol/L administer Potassium Chloride 20 mEq Use central line when applicable. Recheck potassium level 1 hour after total IVPB infusion complete, With each potassium result continue the replacement orders as needed VESICANT (YELLOW) Infuse each 10 mEq over a minimum of 1 hour. 1838 (See Alternative - Provider: Shazia Haynes RN) sodium chloride 0.9 % flush 10 mL (COMPLETED) 10 mL, intravenous, Once in imaging, line care, MRI, Starting on Mon06/10/24 at 0211, For 1 dose 0224 (Given - Provider: Rakesh Cohen ARRT) sodium chloride 0.9 % flush 3 mL 3 mL, intravenous, As needed, line care, before and after each intermittent use, Starting on Mon06/07/24 at 0530 sodium chloride 0.9 % flush bag 25 mL, intravenous, at 100 mL/hr, Administer over 15 Minutes, As needed, line care, line care after IVPB administration, Starting on Mon06/07/24 at 0530 sodium chloride 0.9 % infusion 20 mL/hr, intravenous, Continuous PRN, to maintain patency of lines, Starting on Mon06/07/24 at 0530 sodium chloride 0.9 % radiology injection (COMPLETED) 50 mL, intravenous, Once in imaging, pre/post contrast, MRI, Starting on Mon06/10/24 at 0211, For 1 dose 0237 (Given - Provider: LISSY Stevens) Linked Groups Order Group 1: LORazepam (ATIVAN) tablet 1 mgJump to med 1 mg, oral, Every 4 hours PRN, withdrawal, Score 8-10, Starting on 06/08/24 at 1526, for CIWA-AR score 8-10 Administer orally if tolerating PO Look-alike/sound-alike medication - verify indication for use. Or LORazepam (ATIVAN) injection 1 mgJump to med 1 mg, intravenous, Every 4 hours PRN, withdrawal, Score 8-10, Starting on 06/08/24 at 1526, for CIWA-AR score 8-10 if NPO / not tolerating PO If NPO or not tolerating PO Look-alike/sound-alike medication - verify indication for use;IV use requires increased monitoring of HR,BP,Respirations and Pulse Oximetry;For IV-dilute with equal volume PF sod chloride, Indication: Alcohol Withdrawal Or LORazepam (ATIVAN) injection 1 mgJump to med 1 mg, intramuscular, Every 4 hours PRN, withdrawal, Score 8-10, Starting on 06/08/24 at 1526, for CIWA-AR score 8-10 if NPO / not tolerating PO and no IV access If NPO or not tolerating PO and no IV access Look-alike/sound-alike medication - verify indication for use;IV use requires increased monitoring of HR,BP,Respirations and Pulse Oximetry;For IV-dilute with equal volume PF sod chloride, Indication: Alcohol Withdrawal Group 2: LORazepam (ATIVAN) tablet 2 mgJump to med 2 mg, oral, Every 4 hours PRN, withdrawal, Score 11-15, Starting on 06/08/24 at 1528, for CIWA-AR score 11-15 Administer orally if tolerating PO Look-alike/sound-alike medication - verify indication for use. Or LORazepam (ATIVAN) injection 2 mgJump to med 2 mg, intravenous, Every 4 hours PRN, withdrawal, Score 11-15, Starting on 06/08/24 at 1528, for CIWA-AR score 11-15 if NPO / not tolerating PO If NPO or not tolerating PO Look-alike/sound-alike medication - verify indication for use;IV use requires increased monitoring of HR,BP,Respirations and Pulse Oximetry;For IV-dilute with equal volume PF sod chloride, Indication: Alcohol Withdrawal Or LORazepam (ATIVAN) injection 2 mgJump to med 2 mg, intramuscular, Every 4 hours PRN, withdrawal, Score 11-15, Starting on 06/08/24 at 1528, for CIWA-AR score 11-15 if NPO / not tolerating PO and no IV access If NPO or not tolerating PO and no IV access Look-alike/sound-alike medication - verify indication for use;IV use requires increased monitoring of HR,BP,Respirations and Pulse Oximetry;For IV-dilute with equal volume PF sod chloride, Indication: Alcohol Withdrawal Group 3: LORazepam (ATIVAN) tablet 3 mgJump to med 3 mg, oral, Every 4 hours PRN, withdrawal, Score 16-19, Starting on 06/08/24 at 1527, for CIWA-AR score 16-19 Administer orally if tolerating PO Look-alike/sound-alike medication - verify indication for use. Or LORazepam (ATIVAN) injection 3 mgJump to med 3 mg, intravenous, Every 4 hours PRN, withdrawal, Score 16-19, Starting on 06/08/24 at 1527, for CIWA-AR score 16-19 if NPO / not tolerating PO If NPO or not tolerating PO Look-alike/sound-alike medication - verify indication for use;IV use requires increased monitoring of HR,BP,Respirations and Pulse Oximetry;For IV-dilute with equal volume PF sod chloride, Indication: Alcohol Withdrawal Or LORazepam (ATIVAN) injection 3 mgJump to med 3 mg, intramuscular, Every 4 hours PRN, withdrawal, Score 16-19, Starting on 06/08/24 at 1527, for CIWA-AR score 16-19 if NPO / not tolerating PO and no IV access If NPO or not tolerating PO and no IV access Look-alike/sound-alike medication - verify indication for use;IV use requires increased monitoring of HR,BP,Respirations and Pulse Oximetry;For IV-dilute with equal volume PF sod chloride, Indication: Alcohol Withdrawal Group 4: potassium chloride (K-TAB,KLOR-CON) CR tablet 20-40 mEqJump to med 20-40 mEq, oral, As needed, Potassium Supplementation, Starting on Mon06/07/24 at 0612, Progress to oral potassium replacement when patient tolerating oral intake. If dose administered, recheck potassium level 4 hours after last dose. For potassium level 3.4 to 3.8 mmol/L and GFR less than 30 mL/min or dialysis=20 mEq. For potassium level 3.1 to 3.3 mmol/L and GFR less than 30 mL/min or dialysis=30 mEq. For potassium level 3 mmol/L or less and GFR less than 30 mL/min or dialysis=40 mEq. Do not crush or chew. Or potassium chloride (KAYCIEL) 20 mEq/15 mL solution 20-40 mEqJump to med 20-40 mEq, oral, As needed, Potassium Supplementation, Starting on Mon06/07/24 at 0612, Progress to oral potassium replacement when patient tolerating oral intake. If dose administered, recheck potassium level 4 hours after last dose. For potassium level 3.4 to 3.8 mmol/L and GFR less than 30 mL/min or dialysis=20 mEq. For potassium level 3.1 to 3.3 mmol/L and GFR less than 30 mL/min or dialysis=30 mEq. For potassium level 3 mmol/L or less and GFR less than 30 mL/min or dialysis=40 mEq. Must dilute before use - Mix in 3-8 ounces of water or juice before administration When administering in feeding tube, flush before and after per policy and monitor potassium levels Or potassium chloride IVPB 10 mEq/100 mL in water (0.1 mEq/mL premix)Jump to med 10 mEq, intravenous, at 100 mL/hr, Administer over 60 Minutes, As needed, POTASSIUM REPLACEMENT, Starting on Mon06/07/24 at 0612, IV if unable to use oral/enteral with the current dosing strategies Potassium level 3 mmol/L or less administer Potassium Chloride 40 mEq Potassium level 3.1 to 3.3 mmol/L administer Potassium Chloride 30 mEq Potassium level 3.4 to 3.8 mmol/L administer Potassium Chloride 20 mEq Use central line when applicable. Recheck potassium level 1 hour after total IVPB infusion complete, With each potassium result continue the replacement orders as needed VESICANT (YELLOW) Infuse each 10 mEq over a minimum of 1 hour. FOR RECORDS PERTAINING TO PATIENTS WHO ARE [...] BE BASED ON THE PRIMARY CLINICAL RECORDS. [employer] [facility]. provides no warranty or guarantee of the accuracy or completeness of information in this document.
[2024-07-27 09:46] LABS: Basophils Absolute Auto 0.1 10^3/uL (0.0-0.1); Basophils Percent Auto 1.7 % (0.2-2.0); Eosinophils Absolute Auto 0.2 10^3/uL (0.0-0.7); Eosinophils Percent Auto 3.3 % (0.9-7.0); Hematocrit 33.6 % (42.0-54.0); Hemoglobin 10.1 g/dL (14.0-18.0); Immature Granulocytes Abs Auto 0.01 10^3/uL (0.00-0.03); Immature Granulocytes Pct Auto 0.2 % (0.0-0.5); Lymphocytes Percent Auto 14.4 % (20.5-60.0); Mean Corpuscular HGB Conc 30.1 g/dL (29.9-35.2); Mean Corpuscular Hemoglobin 23.7 pg (25.9-34.0); Mean Corpuscular Volume 78.7 fL (80.0-94.0); Mean Platelet Volume 9.9 fL (9.5-13.5); Monocytes Absolute Auto 0.5 10^3/uL (0.3-0.8); Neutrophils Absolute Auto 4.8 10^3/uL (1.4-6.5); Neutrophils Percent Auto 73.4 % (43.0-75.0); Platelet Count 282 10^3/uL (150-450); Red Blood Count 4.27 10^6/uL (4.70-6.10); White Blood Count 6.6 10^3/uL (4.0-11.0)
[2024-07-27 09:49] LABS: Ammonia <10 umol/L (11-32)
[2024-07-27 09:52] LABS: Estimated Average Glucose 128 mg/dL; Glycohemoglobin A1C 6.1 % (4.5-6.2)
[2024-07-27 10:07] LABS: INR 1.21; Partial Thromboplastin Time 35.4 sec (22.3-36.2); Prothrombin Time 12.6 sec (9.0-11.6)
[2024-07-27 10:32] LABS: Prostate Specific Antigen Scrn 0.96 ng/mL (<=4.00)
[2024-07-27 12:25] LABS: Alanine Aminotransferase 17 U/L (16-63); Albumin Globulin Ratio 0.9; Albumin Level 3.8 g/dL (3.4-5.0); Alkaline Phosphatase 87 U/L (46-116); Anion Gap 13.5; Aspartate Amino Transferase 18 U/L (15-37); Bilirubin Total 0.8 mg/dL (0.2-1.0); Calcium 9.3 mg/dL (8.5-10.1); Carbon Dioxide 26.3 mmol/L (21.0-32.0); Chloride 106 mmol/L (98-107); Chol HDL Ratio 1.6; Cholesterol 120 mg/dL (<=200); Estimated GFR (African America 48 (>=60 mL/min/1.73m^2); Estimated GFR (Non-African Ame 39 (>=60 mL/min/1.73m^2); Free T3 2.62 pg/mL (2.18-3.98); Glucose 113 mg/dL (74-106); HDL Cholesterol 77 mg/dL (40-60); Potassium 3.8 mmol/L (3.5-5.1); Sodium 142 mmol/L (136-145); Thyroid Stimulating Hormone 2.547 uIU/mL (0.358-3.740); Total Protein 7.8 g/dL (6.4-8.2); Triglycerides 52 mg/dL (<=150); Troponin I High Sensitivity 21.4 pg/mL (4.0-76.1); VLDL CHOLESTEROL 10.4 mg/dL
== END 2024-07-27 09:16 | disposition home or self-care (01) ==
LOC: LAB 09:15
PROVIDERS: PCP Family Medicine; Visit Provider Family Medicine
DX: I48.91 Unspecified atrial fibrillation (principal); K74.60 Unspecified cirrhosis of liver; R41.82 Altered mental status, unspecified; I50.9 Heart failure, unspecified; E78.5 Hyperlipidemia, unspecified; R73.09 Other abnormal glucose; Z12.5 Encounter for screening for malignant neoplasm of prostate; I50.30 Unspecified diastolic (congestive) heart failure; I11.0 Hypertensive heart disease with heart failure
CPT/HCPCS: 36415; 80053; 80061; 82140; 83036; 83880; 84436; 84443; 84481; 84484; 85025; 85610; 85730; G0103

== ENCOUNTER 2024-11-20 15:04 | Outpatient (OUT) | payer MEDICARE, OTHER, BC, SELFPAY ==
[2024-11-20 15:25] LABS: Glucose Urine UA NEGATIVE (NEGATIVE)
[2024-11-20 16:38] LABS: Cast Seen? NONE SEEN #/LPF (NONE SEEN); Crystals Seen? None Seen #/HPF (None Seen)
== END 2024-11-20 15:05 | disposition home or self-care (01) ==
LOC: LAB 15:08
PROVIDERS: PCP Family Medicine; Visit Provider Family Medicine
DX: N32.89 Other specified disorders of bladder (principal); R82.998 Other abnormal findings in urine
CPT/HCPCS: 81001; 87086; 87088; 87186

== ENCOUNTER 2025-04-06 12:46 | Inpatient (IN) | payer MEDICARE, OTHER, BC, SELFPAY ==
--- OUTSIDE RECORDS SUMMARY | 2024-11-01 10:00 | XMS_ITS ---
Author Organization [facility] in [place] Address [address] [place] [address] Care Team Providers Care Community Outreach Coordinator Name Role Phone Zac Nam Primary Care Provider REASON FOR VISIT 3mon Encounters Encounter Location Date Provider Diagnosis [address] [id number] 11/01/2024 Zac Nam Plan Of Treatment No Information Progress Notes * Vineet JOYAoDOB: [birth year] (69 yo M)Acc No.[id number]:11/01/2024 UNLOCKED PROGRESS NOTE Progress Note Patient: Johnathan BYRD :?Rajesh Nam (TTC), MDDOB:1955???Age: 69 Y???Sex:MaleDate:11/01/2024Phone:[phone]:[address] [place], [place] [id number] Subjective: * Chief Complaints: * 1 . 3mon. * Medical History: Objective: * Vitals: Assessment: Plan: * Treatment: * * Electronic signature of Zac Nam MD, [id number] on 04/06/2025 at 01:34 PM EST Sign off status: PendingVisit Status:?N/S N/C (No Show/No Charge) * Provider: Shawanda Nam MD (TTC) Date: 0 11/01/2024 Generated for Printing/Faxing/eTransmitting on:?04/06/2025 01:34 PM EST
[2025-04-06] VITALS (64 sets, daily range): BP systolic 103–148; BP diastolic 78–121; PULSE 66–153; TEMP 36.6–37.4; O2SAT 86–100; BMI 20.2; BMI 25.6
--- NOTE | 2025-04-06 13:30 | XR_ITS ---
The [address] [address] Patient Name: OXANA JOYA MRN: [id number] date: 1955 Sex: M Assigned Patient Location: ED.MAIN Current Patient Location: ED.MAIN Accession/Order Number: [id number] Exam Date: 04/06/2025 13:55 Report Date: 04/06/2025 14:19 At the request of: ISAIAH VALENCIA MD Procedure: XR chest 1V XR chest 1V 04/06/2025 2:07 PM SIGNS AND SYMPTOMS: Tachycardia, weakness PROTOCOL: Frontal radiograph of the chest COMPARISON: 06/05/2024 FINDINGS: The trachea is midline. There is cardiomegaly. Calcified plaque is noted in the thoracic aorta. Calcified granulomas are redemonstrated. There is mild vascular prominence with a small amount of fluid along the right minor fissure. The lung parenchyma is clear, otherwise. The bony thorax is intact. XR/XR chest 1V IMPRESSION: Similar cardiomegaly. A small amount of fluid is noted along the minor fissure on the right with mild vascular prominence suspicious for congestive heart failure. No focal consolidation. Impression dictated by: Damien Mane M.D. 04/06/2025 2:19 PM Dictation Location: [place] [address] Electronically authenticated by: [id number] Y Date: 04/06/2025 14:19
--- NOTE | 2025-04-06 13:30 | ECG_ITS ---
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 Measurements Intervals [place] Rate: 140 P: -[id number] SD: -99610 QRS: 7 QRSD: 110 T: -50 QT: 334 QTc: 415 Interpretive Statements 29433 Atrial fibrillation with rapid ventricular response 2450 Right bundle branch block [address] depression, possible subendocardial injury or digitalis effect 74358 Twave abnormality, possible anterolateral ischemia or digitalis effect 52283 Twave abnormality, possible inferior ischemia or digitalis effect 9150 abnormal ECG Compared to ECG 06/05/2024 18:59:40 Right bundle-branch block now present ST (T wave) deviation now present Left anterior fascicular block no longer present Possible ischemia still present Electronically Signed On 04-06-2025 14:22:23 EST by NENITA BRAN M.D.
--- NOTE | 2025-04-06 13:34 | ED.GENADUL1 ---
HPI HPI - General Adult General Chief complaint: Weakness Stated complaint: WEAKNESS - NOT EATING/DRINKING Time Seen by Provider: 04/06/25 13:23 Source: patient Mode of arrival: walk-in History of Present Illness HPI narrative: 69-year-old male presents for feeling weak. His daughter gives most of the history. She reports that he has not taken any of his medications for 2 weeks. He lives by himself and his daughter is concerned about him living on his own. She states that at 1 point he was in a correction and he was doing a lot better and was more happy at that time. He has not had a fever or vomiting. He has been fatigued. Related Data Home Medications ?Medication ?Instructions ?Recorded ?Confirmed apixaban 5 mg tablet (Eliquis) 5 mg PO BID 04/06/25 04/06/25 atorvastatin 40 mg tablet 40 mg PO DAILY 04/06/25 04/06/25 carvedilol 12.5 mg tablet 12.5 mg PO BID 04/06/25 04/06/25 folic acid 1 mg tablet 1 mg PO DAILY 04/06/25 04/06/25 furosemide 40 mg tablet 40 mg PO DAILY 04/06/25 04/06/25 lactulose 10 gram/15 mL oral 15 ml PO DAILY 04/06/25 04/06/25 solution potassium chloride 10 mEq 20 meq PO DAILY 04/06/25 04/06/25 capsule,extended release tamsulosin 0.4 mg capsule 0.4 mg PO DAILY 04/06/25 04/06/25 thiamine HCl (vitamin B1) 100 mg 100 mg PO DAILY 04/06/25 04/06/25 tablet (Vitamin B-1) Allergies Allergy/AdvReac Type Severity Reaction Status Date / Time No Known Drug Allergies Allergy Verified 03/26/23 04:32 Opioid HPI Opioid Management Most Recent Opioid Data: Last ORT Total Score 7 06/06/24, 02:08 Last ORT Risk Category Moderate Risk 06/06/24, 02:08 Ur Phencyclidine Scrn, (NEGATIVE) Negative 06/05/24, 17:40 Review of Systems ROS Narrative A ten point review of systems is negative except as noted above. [facility] Medical History (Updated 04/06/25 @ 15:00 by Ashish Jules MD) Confusion ?R41.0 - Disorientation, unspecified (ICD-10) Atrial fibrillation with RVR ?I48.91 - Unspecified atrial fibrillation (ICD-10) Atrial fibrillation with rapid ventricular response ?I48.91 - Unspecified atrial fibrillation (ICD-10) Edema, peripheral ?R60.0 - Localized edema (ICD-10) CHF (congestive heart failure) ?I50.9 - Heart failure, unspecified (ICD-10) Atrial fibrillation ?I48.91 - Unspecified atrial fibrillation (ICD-10) Hypertension ?I10 - Essential (primary) hypertension (ICD-10) Family History (Updated 05/16/23 @ 17:14 by Yoana Rapp) Father Family history of stroke Social History Smoking status: Never smoker Highest level of school completed/degree received: 9th grade Do you think of yourself as: straight/heterosexual Gender Identity: male Exam Narrative Exam Narrative: Nurses note and vital signs reviewed General:The patient appears well and in no apparent distress.Patient is resting comfortably on cart. Skin:Warm, dry, no pallor noted.There is no rash noted. Head:Normocephalic, atraumatic Eye: Normal conjunctiva, no drainage Ears, Nose, Mouth, and Throat: oral mucosa is moist. Nares patent. Cardiovascular: Irregularly irregular and tachycardic Respiratory:Patient is in no distress, no accessory muscle use, lungs are clear to auscultation, no wheezing, rales or rhonchi Back:non-tender GI: Soft and nontender Musculoskeletal: The patient has no evidence of calf tenderness, no pitting edema, symmetrical pulses noted bilaterally Neurological: Awake and alert Psychiatric:Cooperative Constitutional Vital Signs, click to edit/add: Last Vital Signs Temp 99.4 F 04/06/25 12:57 Pulse 153 H 04/06/25 12:57 Resp 18 04/06/25 12:57 BP 135/108 H 04/06/25 14:25 Pulse Ox 97 04/06/25 12:57 O2 Del Method Room Air 04/06/25 12:57 Course Vital Signs Vital signs: Vital Signs Temperature 99.4 F 04/06/25 12:57 Pulse Rate 153 H 04/06/25 12:57 Respiratory Rate 18 04/06/25 12:57 Blood Pressure 138/97 H 04/06/25 12:57 Pulse Oximetry 97 04/06/25 12:57 Oxygen Delivery Method Room Air 04/06/25 12:57 Temperature 99.4 F 04/06/25 12:57 Pulse Rate 153 H 04/06/25 12:57 Respiratory Rate 18 04/06/25 12:57 Blood Pressure 135/108 H 04/06/25 14:25 Pulse Oximetry 97 04/06/25 12:57 Oxygen Delivery Method Room Air 04/06/25 12:57 Medical Decision Making MDM Narrative Medical decision making narrative: The patient presented to the emergency department with complaints of weakness and was found to have A-fib with RVR. He has a history of A-fib and had been on medications until he stopped taking them about 2 weeks ago. He was given IV Cardizem bolus and then placed on a drip which resulted in his heart rate coming down appropriately. He is maintained on the Cardizem drip and will be admitted. His daughter also has concerns about him regarding being at home and she thinks he may need to go to a correction permanently. She reports that he was agreeable to that plan if it were needed to be implemented. Treatment diagnosis and disposition were discussed with the patient and his daughter. Differential Diagnosis Differential Diagnosis: Atrial fibrillation, UTI, pneumonia, anemia, acute kidney injury Lab Data Lab results reviewed: Yes I reviewed the patient's lab results Labs: Lab Results 04/06/25 Range/Units 13:20 WBC 6.8 (4.0-11.0) 10^3/uL RBC 4.39 L (4.70-6.10) 10^6/uL Hgb 8.6 L (14.0-18.0) g/dL Hct 30.5 L (42.0-54.0) % MCV 69.5 L (80.0-94.0) fL MCH 19.6 L (25.9-34.0) pg MCHC 28.2 L (29.9-35.2) g/dL RDW 23.5 H (11.0-15.0) % Plt Count 484 H (150-450) 10^3/uL MPV 9.9 (9.5-13.5) fL Seg Neuts % (Manual) 86.0 H (43.0-75.0) Lymphocytes % (Manual) 8.0 L (20.5-60.0) % Monocytes % (Manual) 6.0 (1.7-12.0) % Eosinophils % (Manual) 0.0 L (0.9-7.0) % Basophils % (Manual) 0.0 L (0.2-2.0) % Neutrophils # (Manual) 5.84 (1.4-6.5) 10^3/uL Lymphocytes # (Manual) 0.54 L (1.20-3.80) 10^3/uL Monocytes # (Manual) 0.40 (0.30-0.80) 10^3/uL Eosinophils # (Manual) 0.00 (0.00-0.70) 10^3/uL Basophils # (Manual) 0.00 (0.00-0.10) 10^3/uL Hypochromasia 1+ Sodium 142 (136-145) mmol/L Potassium 3.9 (3.5-5.1) mmol/L Chloride 105 (98-107) mmol/L Carbon Dioxide 25.3 (21.0-32.0) mmol/L Anion Gap 15.6 BUN 31.0 H (7.0-18.0) mg/dL Creatinine 1.93 H (0.70-1.30) mg/dL Est GFR ( Amer) 42 L (>=60 mL/min/1.73m^2) Est GFR (Non-Af Amer) 35 L (>=60 mL/min/1.73m^2) BUN/Creatinine Ratio 16.1 Glucose 118 H (74-106) mg/dL Calcium 8.8 (8.5-10.1) mg/dL Troponin I High Sens 31.5 (4.0-76.1) pg/mL Imaging Data Chest x-ray: Radiologist's impression: ITS Impressions Chest X-Ray 04/06/25 13:30 IMPRESSION: Similar cardiomegaly. A small amount of fluid is noted along the minor fissure on the right with mild vascular prominence suspicious for congestive heart failure. No focal consolidation. Impression dictated by: Damien Mane M.D. 04/06/2025 2:19 PM Dictation Location: [place] [id number] Electronically authenticated by: [id number] Y Date: 04/06/2025 14:19 ECG Data Attestation: I personally reviewed and interpreted this ECG as follows: (EKG on my interpretation shows A-fib with RVR, rate 140) Critical Care Time Critical Care Time Critical Care Time: Yes Total Critical Care Time: 35 Attestation: Due to the high probability of sudden and clinically significant deterioration in the patient's condition he/she required the highest level of my preparedness to intervene urgently I provided critical care time including documentation time, medication orders and management, reevaluation, vital sign assessment, ordering and reviewing of lab tests, ordering and reviewing of x-ray studies, and admission orders. Aggregate critical care time is 35 minutes including only time during which I was engaged in work directly related to his/her care and did not include time spent treating other patients simultaneously. Discharge Plan Discharge Chief Complaint: Weakness Clinical Impression: Atrial fibrillation with RVR Patient Disposition: Admitted As Inpatient Time of Disposition Decision: 15:00 Condition: Fair
--- OUTSIDE RECORDS SUMMARY | 2025-04-06 13:34 | XMS_ITS | CCD ---
Author Organization [facility] CliniSyne Care Team Providers Care Research Worker Encyclopedia Name Role Phone MISC, DOCTOR Primary Care Unavailable PAY, PETR Admitting Unavailable PAY, PETR Attending Unavailable PAY, PETR Consulting Unavailable Shaikh Juarez MD Primary Care Provider [phone] SHAIKH JUAREZ Attending Unavailable SHAIKH JUAREZ Attending Unavailable SHAIKH JUAREZ Attending Unavailable Services, [facility] Primary Care Provider SERVICES, [facility] Primary Care Unava ilable ANTIONE OZUNA Consulting Unavailable SERVICES, [facility] Primary Care Unava ilable SERVICES, [facility] Care Unava ilable SERVICES, [facility] Care Unava ilable SERVICES, [facility] Care Unava ilable SERVICES, [facility] Care Unava ilable MATTHEW PHILIPPE Admitting Unavailable RAMON SUTHERLAND Referring Unavailable SERVICES, [facility] Care Unava ilable CATRINA MARIE Consulting Unavailable TABATHA LEÓN Attending Unavailable HOPPS VLIZBETH Consulting Unavailable NICOLAS WELLS Consulting Unavailable RICHARDSON BRANDT Consulting Unavailable FREDERICK LUONG Consulting Unavailable Ramon Sutherland Primary Care Physician [phone] Ramon Sutherland MD Attending Provider [phone] Ramon Sutherland Attending Unavailable Ramon Sutherland Admitting Unavailable Shaikh Juarez MD Primary Care Provider Jaleel Chacon MD Primary Care Provider Skylar Gustafson NP Unavailable [phone] MD DONAL MCGARRY Attending Unav MD DONAL Gilliam Attending Unav MD DONAL Gilliam Attending Shanthi Morrissey Attending Unavailable MD DONAL MCGARRY Attending KIKI Holder Attending Unavailable KIKI OLIVIER Attending Unavailable KIKI OLIVIER Attending Unavailable Allergies Allergy ClassificationReported Allergen(s)Allergy TypeDate of OnsetReaction(s) Facility (1 source)No Known Medication Allergies; Translations: [No Known Medication Allergies]Propensity to adverse reactions (disorder)[facility] Repository Medications Current Medications MedicationDrug Class(es)DatesSig (Normalized)Sig (Original)acetaminophen 325 mg oral tablet (5 sources)Start: 12-56-0747vgja 1 mg by mouth every four hoursacetaminophen 325 mg Tab mg tab(s), Oral, q4hr, Refills(s) 0 Start Date: 06/25/24 Status: Ordered Medication Dispense Status: Completed Total Allowed Fills: 1 Fills Dispensed: 0 Start: 99-60-6885rvgb 1 tablet by mouth every four hours as ymrplc925 mg, oral, Every 4 hours PRN, Temperature greater than 38.3 C, Starting on Mon06/07/24 at 0531, [Warning: Total Acetaminophen not to exceed more than 4 grams (4000 mg) in 24 hours]apixaban 5 mg oral tablet (11 sources)Factor Xa InhibitorStart: 57-56-9909tkbw 1 mg by mouth twice daily apixaban 5 mg oral tablet mg tab(s), Oral, BID, Refills(s) 0 Start Date: 06/25/24 Status: Ordered Medication Dispense Status: Completed Total Allowed Fills: 1 Fills Dispensed: 0Start: 73-27-2555ouks 1 tablet by mouth in the morningEliquis 5 MG tablet Take 5 mg by mouth in the morning and 5 mg before bedtime. 0 05/17/2023 ActiveStart: 08-90-7066dvqe 1 tablet by mouth every twelve hours apixaban (ELIQUIS) 5 mg tablet Take 1 tablet (5 mg total) by mouth every 12 (twelve) hours. 180 tablet 3 01/04/2021 Activeatorvastatin 40 mg oral tablet (7 sources)HMG-CoA Reductase InhibitorStart: 86-05-7925izmgwquqhikz 40 mg Tab 40 mg = 1 tab(s), Refills(s) 0 Start Date: 06/25/24 Status: Ordered Medication Dispense Status: Completed Total Allowed Fills: 1 Fills Dispensed: 0Start: 17-67-8534ezxk 1 tablet by mouth once dailyatorvastatin (LIPITOR) 40 mg tablet Take 1 tablet (40 mg total) by mouth nightly. 30 tablet 06/12/2024 Active carvedilol 12.5 mg oral tablet (7 sources)alpha-Adrenergic Manisha, beta-Adrenergic BlockerStart: 06-25-2024 carvedilol 12.5 mg Tab 12.5 mg = 1 tab(s), Refills(s) 0 Start Date: 06/25/24 Status: Ordered Medication Dispense Status: Completed Total Allowed Fills: 1 Fills Dispensed: 0Start: 90-03-3356jftb 1 tablet by mouth in the morning, then take 1 tablet by mouth at bedtimecarvediloL (COREG) 12.5 mg tablet Take 1 tablet (12.5 mg total) by mouth in the morning and 1 tablet (12.5 mg total) before bedtime. 60 tablet 06/12/2024 ActivecefTRIAXone 1000 mg injection (2 sources)Cephalosporin AntibacterialStart: 06-07-2024 End: 41-22-4197hfcg 1000 mg intravenously every twenty-four hours1,000 mg, intravenous, at 100 mL/hr, Administer over 30 Minutes, Every 24 hours, First dose (after last modification) on Mon06/12/24 at 1030, For 1 day, Look-alike/sound-alike medication - verify indication for use. Do not co- administer with calcium-containing solutions such as Lactated Ringers., Ind ication: Intra-abdominaldiazePAM 10 mg oral tablet (3 sources)BenzodiazepineStart: 82-50-3372Dhwuyn 10 mg Tab 10 mg = 1 tab(s), Oral, Once, PRN for anxiety, take one hour prior to procedure, #1 tab(s), Refills(s) 0, Pharmacy: [facility] [id number], 180, cm, 07/19/24 13:40:00 EDT, Height/Length Dosing, 80, kg, 07/19/24 13:40:00 EDT, Weight Dosing Start Date: 10/15/24 Status: Ordered Medication Dispense Status: Completed Quantity: 1.0 Unit: tab(s) Total Allowed Fills: 1 Fills Dispensed:0docusate sodium 50 mg / sennosides, senior care 8.6 mg oral tablet (1 source)Start: 04-85-2427pirl 2 tablets by mouth once daily2 tablet, oral, Nightly, First dose on Mon06/11/24 at 2200folic acid 1 mg oral tablet (7 sources)Start: 14-06-0614dwvws acid 1 mg Tab 1 mg = 1 tab(s), Refills(s) 0 Start Date: 06/25/24 Status: Ordered Medication Dispense Status: Completed Total Allowed Fills: 1 Fills Dispensed: 0Start: 76-93-3423qddm 1 tablet by mouth in the morningfolic acid (FOLVITE) 1 mg tablet Take 1 tablet (1 mg total) by mouth in the morning. 30 tablet 06/13/2024 ActiveStart: 38-97-1292arsf 1 tablet by mouth in the morningfolic acid (FOLVITE) 1 mg tablet Take 1 tablet (1 mg total) by mouth in the morning. 30 tablet 06/13/2024Start: 87-82-4741mnyk 1 mg by mouth once daily1 mg, oral, Daily, First dose on Mon06/07/24 at 0900, Look-alike/sound-alike medication - verify indication for use.furosemide 40 mg oral tablet (9 sources)Loop DiureticStart: 61-14-3662exwonswzby 40 mg Tab 40 mg = 1 tab(s), Refills(s) 0 Start Date: 06/25/24 Status: Ordered Medication Dispense Status: Completed Total Allowed Fills: 1 Fills Dispensed: 0Start: 65-19-6287quby 1 tablet by mouth once dailyfurosemide (LASIX) 40 mg tablet Take 1 tablet (40 mg total) by mouth daily. 30 tablet 06/13/2024 ActiveStart: 73-97-1111wykz 1 tablet by mouth once dailyfurosemide (LASIX) 40 mg tablet Take 1 tablet (40 mg total) by mouth daily. 30 tablet 06/13/2024Start: 01-35-080759 mg, oral, Daily, First dose on Mon06/11/24 at 0900, HOLD FOR BLOOD PRESSURE LESS THAN 100 MMHG Loo k-alike/sound-alike medication - verify indication for use.Start: 06-08-2024 End: 02-23-7566beuf 40 mg intravenously every twelve hours40 mg, intravenous, Every 12 hours, First dose on Mon06/08/24 at 1100, For 6 doses, Look-alike/sound- alike medication - verify indication for use. IVP rate = 20 mg/minStart: 05-24-2023 End: 42-61-0570gzzy 1 tablet by mouth in the morningfurosemide (Lasix) 40 MG tablet Indications: Chronic systolic heart failure (CMS/HCC) Take 1 tablet(40 mg) by mouth in the morning and 1 tablet (40 mg) before bedtime. 60 tablet 1 05/24/2023 07/23/2023 Activeglucagon (rdna) 1 mg injection (1 source)Antihypoglycemic AgentStart: mg, intramuscular, As needed, low blood sugar, [...] than 70 mg/dL after initial treatment, repeat treatment.150 ml glucose 50 mg/ml injection (3 sources)Start: 59-31-4602qdlo 70 mg intravenously every ytvw293 mL/hr, intravenous, Continuous PRN, blood glucose less than 70 mg/dL, Starting on Mon06/07/24 at 0530, Use immediately following dextrose 50% or glucagon treatment for patients who are unconscious or NPO. Contact prescriber for additional orders. If blood glucose is not greater than 70 mg/dL after initial treatment, repeat treatment.Start: g, oral, As needed, low blood sugar, blood glucose less than 70 mg/dL, Starting on Mon06/07/24 at 0530, If patient conscious and taking PO. If blood glucose is not greater than 70 mg/dL after initial treatment, repeat treatment.Start: mL, intravenous, As needed, low blood sugar, blood glucose less than 70 mg/dL and unconscious orNPO with IV access, Starting on Mon06/07/24 at [...] treatment, repeat treatment. VESICANT (RED) Warning: HYPERTONIC solution.LORazepam (3 sources)BenzodiazepineStart: 49-50-6650mwwn 1 tablet by mouth every four hours as neededLORazepam (ATIVAN) tablet 2 mgStart: 58-87-6587rczh 1 tablet by mouth every four hours as neededLORazepam (ATIVAN) tablet 3 mgStart: 06-08-2024 take 1 tablet by mouth every four hours as neededLORazepam (ATIVAN) tablet 1 mg losartan potassium 100 mg oral tablet (3 sources)Angiotensin 2 Receptor BlockerStart: 05-25-2023 End: 00-61-3634hfrj 1 tablet by mouth in the morninglosartan (Cozaar) 100 MG tablet Indications: Chronic systolic heart failure (HCC) , Primary hypertension Take 1 tablet (100 mg) by mouth in the morning. 90 tablet 06/28/2023 Mricba71 ml magnesium sulfate 40 mg/ml injection (2 sources)Start: ,000 mg, intravenous, at 25 mL/hr, Administer over 120 Minutes, As needed, Magnesium level 1.7 to 1.9 mg/dL, or Ionized Magnesium level 0.45 to 0.5 mmol/L., Starting on Mon06/07/24 at 0612, Recheck magnesium level 4 hours after infusion complete. With each magnesium result continue the replacementorders as needed.Start: ,000 mg, intravenous, at 25 mL/hr, Administer over 240 Minutes, As needed, Magnesium level 1.6 mg/dL or less, or Ionized Magnesium level 0.44 mmol/L or less, Starting on Mon06/07/24 at 0612, Recheckmagnesium level 4 hours after infusion complete. With each magnesium result continue the replacement orders as needed.melatonin 5 mg oral tablet (1 source)Start: 51-19-1529cwxh 5 mg by mouth once daily5 mg, oral, Nightly, First dose [place] Mon06/[place]24 [place] [address] ml metoprolol tartrate 1 mg/ml injection (4 sources)beta-Adrenergic BlockerStart: 15-71-0254yewo 5 mg intravenously every six hours as needed5 mg, intravenous, Every 6 hours PRN, For heart rate greater than 120, Starting on 06/08/24 at 1711, Look-alike/sound-alike medication - verify indication for use.Start: 05-24-2023 End: 46-66-4847ezel 1 tablet by mouth every twenty-four hours in the morning metoprolol succinate XL (Toprol XL) 100 MG 24 hr tablet Indications: Chronic systolic heart failure(HCC) Take 1 tablet (100 mg) by mouth in the morning. Do not crush or chew.. 90 tablet 06/28/2023 Activemidodrine hydrochloride 5 mg oral tablet (2 sources)alpha-Adrenergic AgonistStart: 03-07-5401cyjn 5 mg by mouth three times daily5 mg, oral, 3 times daily, First dose on 06/09/24 at 1400, Hold if blood pressure is greater enum434 mmHg Look-alike/sound-alike medication - verify indication for use.Start: 06-09-2024 End: 36-29-2705gocm 5 mg by mouth once5 mg, oral, Once, On 06/09/24 at 1330, For 1 dose, Look-alike/sound-alike medication - verify indication for use. xuirflsf-gslj-EW-calcium &mins (THERAGRAN-M) 9 mg iron-400 mcg tablet 1 tablet (1 source)Start: 94-23-9936dwmg 1 tablet by mouth once daily as needed1 tablet, oral, Daily PRN, administer instead of IV MVI when patient tolerating oral diet, Startingon Mon06/07/24 at 0620polyethylene glycol 3350 42382 mg powder for oral solution (1 source)Osmotic LaxativeStart: g, oral, Daily PRN, constipation, Starting on Mon06/11/24 at 0753, Look-alike/sound-alike medication - verify indication for use. Dissolve 1 packet (17 gm) in 8 ounces of water, juice, soda, coffeeor tea.Potassium Chloride (8 sources)Start: 28-16-2972ihmp 1 dose by mouth twice dailyPotassium Chloride (Qpd-Vyau-Spu 10) mEq, Oral, BID, Refills(s) 0 Start Date: 06/25/24 Status: Ordered Medication Dispense Status: Completed Total Allowed Fills: 1 Fills Dispensed: 0Start: 34-17-6434Edmnzaxim Chloride (Saz-Nnla-Mab 10) mEq, Oral, BID, Refills(s) 0 Start Date: 06/25/24 Status: Ordered Repeat number: 1Start: 76-87-1562Rkxzjtvkf Chloride (Vbb-Rird-Aec 10) mEq, Oral, BID, Refills(s) 0 Start Date: 06/25/24 Status: OrderedStart: 19-09-2654ibrpbifgu chloride (K-TAB,KLOR-CON) CR tablet 20-40 mEqStart: 12-24-6911bjmibdjww chloride (K-TAB,KLOR-CON) 10 MEQ CR tablet TAKE 2 TABLETS BY MOUTH EVERY DAY 180 tablet 1 09/16/2021 ActiveQUEtiapine 25 mg oral tablet (3 sources)Atypical AntipsychoticStart: 87-33-2293hkdy 1 tablet by mouth once dailyQUEtiapine (SEROquel) 25 mg tablet Take 1 tablet (25 mg total) by mouth nightly. 30 tablet 06/12/2024 Activesacubitril 24 mg / valsartan 26 mg oral tablet (3 sources)Angiotensin 2 Receptor BlockerStart: 07-82-8771ryou 1 tablet by mouth twice dailyEntresto 24 mg-26 mg oral tablet tab(s), Oral, BID, Refill(s) 0 Start Date: 07/19/24 Status: OrderedMedication Dispense Status: Completed Total Allowed Fills: 1 Fills Dispensed: 0spironolactone 50 mg oral tablet (3 sources)Aldosterone AntagonistStart: 05-24-2023 End: 35-67-6445cgky 1 tablet by mouth in the morningspironolactone (Aldactone) 50 MG tablet Indications: Chronic systolic heart failure (HCC) Take 1 tablet (50 mg) by mouth in the morning. 90 tablet 06/28/2023 Activesulfamethoxazole 800 mg / trimethoprim 160 mg oral tablet (1 source)Dihydrofolate Reductase Inhibitor Antibacterial, Sulfonamide AntimicrobialStart: 10-21-2024 End: 36-11-0458fvbx 1 tablet by mouth twice dailyBactrim D.S. 800 mg-160 mg Tab 1 tab(s), Oral, BID for 3 day(s), 6 tab(s), Refill(s) 0, [facility] [id number], 180, cm, 07/19/24 13:40:00 EDT, Height/Length Dosing, 80, kg, 07/19/24 13:40:00 EDT, Weight Dosing Start Date: 10/21/24 Stop Date: 10/24/24 Status: Ordered Quantity: 6.0 Unit: tab(s) Repeat number: 1tamsulosin hydrochloride 0.4 mg oral capsule (7 sources)alpha-Adrenergic BlockerStart: 09-11-0421afubmoeggy 0.4 mg Cap 0.4 mg = 1 cap(s), Refills(s) 0 Start Date: 06/25/24 Status: Ordered Medication Dispense Status: Completed Total Allowed Fills: 1 Fills Dispensed: 0Start: 64-30-0743lnvc 1 capsule by mouth once dailytamsulosin (FLOMAX) 0.4 mg capsule Take 1 capsule (0.4 mg total) by mouth nightly. 30 capsule 06/12/2024 Activethiamine 100 mg oral tablet (7 sources)Start: 79-36-3960wqbf 1 mg by mouth once dailythiamine 100 mg Tab mg tab(s), Oral, Daily, Refills(s) 0 Start Date: 06/25/24 Status: Ordered Medication Dispense Status: Completed Total Allowed Fills: 1 Fills Dispensed: 0Start: 64-34-7561ljbp 1 tablet by mouth in the morningthiamine HCl (VITAMIN B-1) 100 mg tablet Take 1 tablet (100 mg total) by mouth in the morning. 30 tablet 06/13/2024 ActiveStart: 80-47-1373nmsg 1 tablet by mouth in the morningthiamine HCl (VITAMIN B-1) 100 mg tablet Take 1 tablet (100 mg total) by mouth in the morning. 30 tablet 06/13/2024Start: 44-72-6049ukkq 100 mg by mouth once bqjup600 mg, oral, Daily, First dose on Mon06/07/24 at 0630, Look-alike/sound-alike medication - verify indication for use. Completed/Discontinued Medications MedicationDrug Class(es)DatesSig (Normalized)Sig (Original)20 ml albumin human, senior care 250 mg/ml injection (2 sources)Human Serum AlbuminStart: 06-09-2024 End: g, intravenous, Once, On Mon06/10/24 at 0615, For 1 dose, Do not exceed 1 mL/minute in patients with normal plasma volume; 2 to 3 mL/minute in patients with hypoproteinemia For BUMINATE, administerusing a 15 micron or smaller filter. A filter is NOT required for administration by other brands., I ndication: Other, Indication: Hypotension, volume overloadamLODIPine 10 mg oral tablet (3 sources)Dihydropyridine Calcium Channel BlockerStart: 12-30-2021 End: 31-33-5541wzzz 10 mg by mouth once daily10 mg, oral, Daily, First dose on Mon06/08/24 at 1100, HOLD FOR SYSTOLIC BLOOD PRESSURE LESS THAN 100 MMHG Look-alike/sound-alike medication - verify indication for use. Avoid grapefruit juice.aspirin 81 mg delayed release oral tablet (2 sources)Platelet Aggregation Inhibitor, Nonsteroidal Anti-inflammatory Drug End: 02-41-6336rktk 1 tablet by mouth in the morningaspirin 81 mg Take 1 tablet (81 mg total) by mouth in the morning. 06/12/2024 Discontinued (Stop Taking at Discharge)0.4 ml enoxaparin sodium 100 mg/ml prefilled syringe (1 source)Low Molecular Weight HeparinStart: 06-10-2024 End: 40-07-8142saqznz 40 mg by subcutaneous injection once daily40 mg, subcutaneous, Daily, First dose on Mon06/10/24 at 0900, Look-alike/sound-alike medication - verify indication for use.gadoteridoL (PROHANCE) injection 6.22 mmol 12.44 mL (1 source)Start: 06-10-2024 End: .22 mmol (0.1 mmol/kg 62.2 kg), intravenous, Once in imaging, contrast, MRI, Starting on Mon06/10/24 at 0211, For 1 dose, VESICANT (RED), Indications: magnetic resonance ugvwejn157 ml heparin sodium, porcine 50 unt/ml injection (1 source)Unfractionated Heparin, Anti-coagulantStart: 06-07-2024 End: -3,500 Units/hr (6-70 mL/hr), intravenous, Continuous, Starting on [...] (2 mL/hr), next aPTT in 6 hours. - 121 - 150seconds: stop infusion for 60 minutes, decrease rate by 150 units/hr (3 mL/hr), next aPTT in 6 hours. - Greater than 150 seconds: stop infusion for 60 minutes, decrease rate by 250 units/hr (5 mL/hr), next aPTT in 6 hours. Monitor for signs of bleeding. Look-alike/sound-alike medication - verify indication for use., Indication: Afib or Mechanical Valve, INITIAL Infusion Dose (Units/hr): 750 units/hhydrALAZINE hydrochloride 100 mg oral tablet (3 sources)Arteriolar VasodilatorStart: 02-04-2021 End: mg, oral, 3 times daily, First dose on Mon06/08/24 at 1400, HOLD IF SYSTOLIC BLOOD PRESSURE IS LESS THAN 100 MMHG OR HEART RATE GREATER THAN 90 Look-alike/sound-alike medication - verify indication for use.4 ml labetalol hydrochloride 5 mg/ml cartridge (3 sources)beta-Adrenergic BlockerStart: 06-07-2024 End: 01-73-212941 mg, intravenous, Once, On Mon06/07/24 at 2315, For 1 dose, Look-alike/sound-alike medication - verify indication for use.Start: 02-23-2022 End: 47-54-4622ttml 2 tablets by mouth in the morning, then take 2 tablets by mouth at bedtimelabetaloL (NORMODYNE) 200 mg tablet Take 2 tablets (400 mg total) by mouth in the morning and 2 tablets (400 mg total) before bedtime. 120 tablet 5 02/23/2022 06/12/2024 Discontinued (Stop Taking at Discharge)lactulose 667 mg/ml oral solution (1 source)Osmotic LaxativeStart: 06-07-2024 End: 58-33-309600 g, oral, 2 times daily, First dose on Mon06/07/24 at 1300, HOLD IF PATIENT HAS HAD 2 BOWEL MOVEMENTS IN A DAY Titrate for 2-3 BM per tnv140 ml metroNIDAZOLE 5 mg/ml injection (2 sources)Nitroimidazole AntimicrobialStart: 06-07-2024 End: 76-24-0292onac 500 mg intravenously every twelve mg, intravenous, at 100 mL/hr, Administer over 60 Minutes, Every 12 hours, First dose (after last modification) on Mon06/11/24 at 2100, For 1 day, Look-alike/sound-alike medication - verify indication for use., Indication: Intra-abdominalolmesartan medoxomil 40 mg oral tablet (2 sources)Angiotensin 2 Receptor BlockerStart: 08-18-2020 End: 73-90-3615wzmb 1 tablet by mouth once dailyolmesartan (BENICAR) 40 mg tablet Take 1 tablet (40 mg total) by mouth daily. 30 tablet 5 08/18/2020 06/12/2024 Discontinued (Stop Taking at Discharge)1000 ml sodium chloride 9 mg/ml injection (6 sources)Start: 06-10-2024 End: mL, intravenous, Once in imaging, pre/post contrast, MRI, Starting on Mon06/10/24 at 0211, For 1 doseStart: 06-10-2024 End: 08-23-707917 mL, intravenous, Once in imaging, line care, MRI, Starting on Mon06/10/24 at 0211, For 1 doseStart: mL, intravenous, Every 12 hours scheduled, First dose on Mon06/07/24 at 0900Start: mL, intravenous, As needed, line care, before and after each intermittent use, Starting on Mon06/07/24 at 0530Start: 24-09-3554znos 20 mL intravenously every hour as dsynss25 mL/hr, intravenous, Continuous PRN, to maintain patency of lines, Starting on Mon06/07/24 at 0530Start: 75-32-3946taty 25 mL intravenously every hour as nwebgv74 mL, intravenous, at 100 mL/hr, Administer over 15 Minutes, As needed, line care, line care afterIVPB administration, Starting on Mon06/07/24 at 0530 Problems Active Problems Problem ClassificationProblemDateDocumented DateEpisodic/ChronicAcute cerebrovascular disease (4 sources)Cerebrovascular yqplrgpy12-68-5704PqowhqxAvanwxs dysrhythmias (12 sources)Unspecified atrial fibrillation; Translations: [Paroxysmal atrial fibrillation]Onset: 090632-47-4853XbhfefgWwkjjia dysrhythmias (3 sources)Bradycardia; Translations: [Bradycardia, unspecified]Onset: 714914-69-1270UetwjxqfHhdcnta kidney disease (4 sources)Chronic kidney disease stage 3A ; Translations: [Stage 3a chronic kidney disease (HCC)]Onset: 850399-87-2276TcamxilMmmftwrtcm heart failure; nonhypertensive (6 sources)Chronic systolic heart failure; Translations: [Chronic systolic (congestive) heart failure]Onset: 173582-68-6597BncancbSvfuwdgtk of lipid metabolism (3 sources)Pure hypercholesterolemia; Translations: [Pure hypercholesterolemia, unspecified]83-80-4502YqcgmisBqeppqunn of lipid metabolism (1 source)Pure hypercholesterolemia, unspecified; Translations: [PURE HYPERCHOLESTEROLEMIA UNSPEC]Onset: 12-23-7717Rzlgwgifl hypertension (10 sources)Essential (primary) hypertension; Translations: [Essential hypertension]Onset: 12-19-2018 Resolved: 697070-79-8839CmlamqjOtjgbzqwnpqbf symptoms and ill-defined conditions (8 sources)Hematuria, unspecified; Translations: [Retention of urine]Onset: 550112-46-2812MpufwauqPhdojqwkgof of prostate (4 sources)Benign prostatic hypertrophy with outflow obstruction; Translations: [Benign prostatic hyperplasia with lower urinary tract symptoms]Onset: 922803-88-4184BbbpowiGeldyovoytss with complications and secondary hypertension (3 sources)Hypertensive heart disease; Translations: [Hypertensive heart disease without heart failure]78-91-7194KbzycurKtlgpdq and fatigue (1 source)Other fatigue; Translations: [OTHER FATIGUE]Onset: 49-33-4574Edxtrqoi Mood disorders (4 sources)Depressive jjfcqycj44-75-2178RozkfzbZjxghowjgidiyf (4 sources)Hztiixgio00-91-1512MepzyfqNwrbt aftercare (1 source)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; Translations: [SHELTER CURRNT USE ANTICOAGULANTS]Onset: 19-82-8446WzdfcwciNfizj aftercare (1 source)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; Translations: [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]Onset: 65-93-1580VcthjumgOfsww aftercare (1 source)Other chcf (current) drug therapy; Translations: [OTH SHELTER CURRENT DRUG THERAPY]Onset: 13-98-1601VwkuyavvZynzt and ill-defined heart disease (4 sources)Heart edurwcj43-36-1965TezvqesPyrio diseases of kidney and ureters (1 source)Secondary hyperparathyroidism; Translations: [Secondary hyperparathyroidism of renal origin]22-32-2782MueemitBvpdh liver diseases (4 sources)Disease of eukmc62-29-9345FwbxgpfQppkg nervous system disorders (3 sources)Disorder of brain; Translations: [Encephalopathy, unspecified]Onset: 316059-04-1016RhkbyxhOppmz nervous system disorders (1 source)Encephalopathy, unspecified; Translations: [Encephalopathy, unspecified]Onset: 82-89-5159PddtknaXvnhr screening for suspected conditions (not mental disorders or infectious disease) (3 sources)Electrocardiogram abnormal; Translations: [Abnormal electrocardiogram [ECG] [EKG]]Onset: 336625-71-1600CbdruizkShjgjkiz codes; unclassified (1 source)Pain, unspecified; Translations: [Pain, unspecified]Onset: 06-07-2024 EpisodicUnclassified (1 source)Nadia AMSOnset: 03-42-3771Wlzuxwwkkbdq (1 source)Acute EncephalopathyOnset: 63-83-0344Vbkdvuguklgo (3 sources)Patient encounter igambm54-19-1058Fqhgicz tract infections (1 source)Acute cystitis with hematuria; Translations: [ACUTE CYSTITIS WITH HEMATURIA]Onset: 91-21-5178Suaaaxjh Past or Other Problems Problem ClassificationProblemDateDocumented DateEpisodic/Chronic Administrative/social admission (3 sources)Patient encounter status; Translations: [Persons encountering health services in other specified circumstances]Onset: 688090-56-7978Zdllpdqp Deficiency and other anemia (3 sources)Normocytic anemia; Translations: [Anemia, unspecified]Onset: 282712-52-0782PcclzcfmHvjnqwlotp and other anemia (3 sources)Iron deficiency anemia; Translations: [Iron deficiency anemia, unspecified]Onset: [id number] and electrolyte disorders (6 sources)Dehydration; Translations: [Hypokalemia]Onset: EpisodicOther diseases of veins and lymphatics (3 sources)Venous insufficiency of leg; Translations: [Venous insufficiency (chronic) (peripheral)]Onset: [id number] (2 sources)Syncope; Translations: [Syncope and collapse]Onset: 09-15-2017 [id number] Results Test NameValueInterpretationReference RangeFacilityUrine Cultureon 11-20-2024 Bacteria identified Cx Nom (U)ORGANISM: Gram Negative Bacilli (O:GNB) [place] Count 50,000 Organism Comments . Send Test to Ref. Lab Sent to Reference Lab for Sensitivity Testing ORGANISM: Staphylococcus aureus (O:STAAUR) [place] Count >100,000 Organism #1 - Pantoea species The organism isolated most closely resembles the identity indicated above. Antibiotic Amoxicillin/Clavulanic Acid S Cefepime S Cefoxitin I Cefpodoxime S Ertapenem S Levofloxacin S Tetracycline S S = Susceptible; I = Intermediate; R = Resistant Performed at: [place] [id number] Pest Locator: Yohan Gonzalez PhD, Phone: [phone] Aerobic KANWAL Charge (PCMIC38) SUSCEPTIBILITY ORGANISM: O:STAAUR ANTIBIOTIC INTERPRETATION KANWAL Ceftaroline S <0.5 Ciprofloxacin S <1 Daptomycin S <0.5 Levofloxacin S <1 Linezolid S 2 Nitrofurantoin S <32 Oxacillin S <0.25 Penicillin R >2 Tetracycline S <4 Trimethoprim/Sulfamethoxazole S <0.5 Vancomycin S 1 S = SUSCEPTIBLE I = INTERMEDIATE R = RESISTANT BLANK = DATA NOT AVAILABLE, OR DRUG NOT ADVISABLE OR TESTED R* = RESISTANCE DUE TO EXTENDED SPECTRUM BETA-LACTAMASES ESBL = EXTENDED SPECTRUM BETA-LACTAMASE TFG = THYMIDINE-DEPENDENT STRAIN KARON = BETA-LACTAMASE POSITIVE IB = INDUCIBLE BETA-LACTAMASE. APPEARS IN PLACE OF 'S' WITH SPECIES KNOWN TO POSSESS INDUCIBLE BETA-LACTAMASES. POTENTIALLY THEY MAY BECOME RESISTANT TO ALL B-LACTAM DRUGS. PERFORMED BY: [place] [address] PATHOLOGIST OVERHAULER [employer] RITU DALEY M.D.[facility] Physician GroupComment on above: Performed By: #### CUU #### [place] [address] USAAmbulatory Visit Summaryon [id number] Visit SummaryAmbulatory Visit Summary JOHNATHAN RODNEY :1955 Visit Date:10/21/2024 Ambulatory Visit Instructions Your Diagnosis Urine retention Your Care Team Attending Physician - CHARLINE CHARLTON, KIKI Pride Primary Care Physician - Ramon Sutherland MD This Is Your Medications List acetaminophen (acetaminophen 325 mg Tab) apixaban (apixaban 5 mg oral tablet) atorvastatin (atorvastatin 40 mg Tab) carvedilol (carvedilol 12.5 mg Tab) diazepam (Valium 10 mg Tab) folic acid (folic acid 1 mg Tab) furosemide (furosemide 40 mg Tab) potassium chloride (Potassium Chloride (Bga-Kqpp-Sdw 10)) sacubitril-valsartan (Entresto 24 mg-26 mg oral tablet) sulfamethoxazole-trimethoprim (Bactrim D.S. 800 mg-160 mg Tab) tamsulosin (tamsulosin 0.4 mg Cap) thiamine (thiamine 100 mg Tab) Procedures Performed None. What to do next Scheduled Follow-Up Appointments Monday 10:30 AM EDT Where: [facility] Monday 2:45 PM EDT Where: [facility] Medications What How Much When Instructions New sulfamethoxazole-trimethoprim (Bactrim D.S. 800 mg-160 mg Tab) 1 Tablets By Mouth 2 times a dayDuration: 3 Days Pickup at [facility] [phone] Unchanged acetaminophen (acetaminophen 325 mg Tab) By Mouth Every 4 hours Unchanged apixaban (apixaban 5 mg oral tablet) By Mouth 2 times a day Unchanged atorvastatin (atorvastatin 40 mg Tab) 1 Tablets Unchanged carvedilol (carvedilol 12.5 mg Tab) 1 Tablets Unchanged diazepam (Valium 10 mg Tab) 1 Tablets By Mouth Once as needed for for anxiety take one hour prior to procedure Pickup at [facility] [id number] Unchanged folic acid (folic acid 1 mg Tab) 1 Tablets Unchanged furosemide (furosemide 40 mg Tab) 1 Tablets Unchanged potassium chloride (Potassium Chloride (Ucc-Vfsl-Hnw 10)) By Mouth 2 times a day Unchanged sacubitril-valsartan (Entresto 24 mg-26 mg oral tablet) By Mouth 2 times a day Unchanged tamsulosin (tamsulosin 0.4 mg Cap) 1 Capsules Unchanged thiamine (thiamine 100 mg Tab) By Mouth Every day Pharmacy Information [facility] [id number]: [address] [place], [place] [id number] [phone] Allergies No Known Medication Allergies Problems Ongoing - Any problem that you are currently receiving treatment for. Afib Arthritis BPH with obstruction/lower urinary tract symptoms Depression Heart disease Hypertension Liver disease Prostate cancer screening Stroke Urinary retention Patient Survey You may receive a survey via text or e-mail asking about your office visit. Please share your experience with us by completing your survey. We appreciate your feedback and thank you for choosing us for your care. [facility] HospitalAmbulatory Visit Summaryon [id number] Visit SummaryAmbulatory Visit Summary JOHNATHAN RODNEY :1955 Visit Date:08/30/2024 Ambulatory Visit Instructions Your Diagnosis Urine retention Your Care Team Attending Physician - CHARLINE CHARLTON, KIKI Pride Primary Care Physician - Ramon Sutherland MD This Is Your Medications List acetaminophen (acetaminophen 325 mg Tab) apixaban (apixaban 5 mg oral tablet) atorvastatin (atorvastatin 40 mg Tab) carvedilol (carvedilol 12.5 mg Tab) folic acid (folic acid 1 mg Tab) furosemide (furosemide 40 mg Tab) potassium chloride (Potassium Chloride (Zai-Tisj-Pwv 10)) sacubitril-valsartan (Entresto 24 mg-26 mg oral tablet) tamsulosin (tamsulosin 0.4 mg Cap) thiamine (thiamine 100 mg Tab) Procedures Performed None. What to do next Scheduled Follow-Up Appointments Monday. 2024 8:30 AM EDT With: DONAL MCGARRY MD Where: [facility] [address] [place] [address]- Medications What How Much When Instructions Unchanged [...] 1 Tablets Unchanged potassium chloride (Potassium Chloride (Xjk-Medt-Jfj 10)) By Mouth 2 times a day Unchanged sacubitril-valsartan (Entresto 24 mg-26 mg oral tablet) By Mouth 2 times a day Unchanged tamsulosin (tamsulosin 0.4 mg Cap) 1 Capsules Unchanged thiamine (thiamine 100 mg Tab) By Mouth Every day Allergies No Known Medication Allergies Problems Ongoing - Any problem that you are currently receiving treatment for. Afib Arthritis BPH with obstruction/lower urinary tract symptoms Depression Heart disease Hypertension Liver disease Prostate cancer screening Stroke Urinary retention Patient Survey You may receive a survey via text or e-mail asking about your office visit. Please share your experience with us by completing your survey. We appreciate your feedback and thank you for choosing us for your care. SkipOhiohealth Riverside Methodist HospitalUrology Office/Clinic Noteon 12-03-7477Kwanxmm Office/Clinic NoteUrology Office/Clinic Note Chief Complaint f/u HPI Staff 68 year old male patient here to discuss his BPH with obstruction/lower urinary tract symptoms. Pt saw 06/25/24 for [employer] appt. Previous Dx: urinary retention, Other obstructive [...] with obstruction/lower urinary tract symptoms. Pt saw 06/25/24 for [employer]OR appt. Patient is accompanied by daughter today. [...] also discussed. Patient states he did not wantto have a procedure done at this time, [...] among others. The patient, after being informed ofprocedural details and after questions have been answered, wishes to proceed. Full informed consenthas been obtained. Will order Local anesthesia. Daughter [...] discussed with the patient that with the multiplefailed voiding trial we will proceed with a cystoscopy, transrectal ultrasound for prostate sizing and based on findings determine if he would benefit from bladder outlet reduction procedure. Risk, benefits, alternatives were discussed in extensive detail with him and he will follow-up with such for the procedure. Follow-up With When Contact Information RUSTY MCCALL, DONAL, KEERTHIL Additional Instructions: Follow up Schedule Cysto or sooner if needed Patient Education Acute Urinary Retention, Male I, Brennan Fish, personally scribed for Dr. Donal Mcgarry on 07/19/2024 13:57:33. . Portions of this record may have been created with voice recognition artificial intelligence software, specifically E[employer]by, Split and or RIVS. Substitutions may have occurred due to the inherent limitations of voice recognition and artificial intelligence software. Documentation recorded by the scribe, Brennan Fish, accurately reflects the services(s) I performedand decisions made by me. Authenticated by Dr. Tabitha Love on 07/19/2024 14:24:47. Problem List/Past Medical History Ongoing Afib Arthritis BPH with obstruction/lower urinary tract symptoms Depression Heart disease Hypertension Liver disease Prostate cancer screening Stroke Urinary retention Historical No qualifying data Procedure/Surgical History None. Medications acetaminophen 325 mg Tab, Oral, q4hr apixaban 5 mg oral tablet, O (more content not included)...[facility] HospitalComment on above:Result Comment: Electronically Signed By: DONAL MCGARRY MD\.br\Date and Time Signed: 07/19/24 14:25 EDT\.br\Electronically Co-Signed By: Brennan Fish\.br\Date and Time Co- Signed: 07/19/24 13:57 EDTUrology Office/Clinic Noteon [id number] Office/Clinic NoteUrology Office/Clinic Note Chief Complaint F/u to [facility] and [facility] HPI Staff New pt here for hospital f/u due to urinary retention. Never seen in our office before (verified onDataArk). [facility] ER 06/05/24 due to confusion/AMS and not feeling well. No evidence of UTI. Drug screen was positive for cannabinoids. 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 Found to have lactic acidosis causing a-fib and RVR. Was admitted to ICU. Then transferred to [place]. -Catheter was placed 06/05/24 but I cannot find documentation of PVR prior or output when they put the cath in. -Hogshead Packer on admission 2.11 (typical looks in the mid 1s). Improved during hospital stay. -Abd US 06/05/24 showed dilated right renal pelvis and calyces. L side nl. -CT 06/07/24 showed simple 1.6cm LIP cyst. Extensive bilat perinephric edema. No collecting system dilation or evidence of ureteral calc. -Urine cx 1/31/25 neg. Blood cx neg x 2. Currently at [facility] but plan is for dc this Monday. [...] and daughter prefer safer option as they don'twant him going back into retention. He would like to keep [place] for now. Ordered: E&M of New Patient Moderate 45-59 Min 47406 2. BPH with obstruction/lower urinary tract symptoms (N40.1: Benign prostatic hyperplasia with lower urinary tract symptoms) Chronic. Unclear if has been on Flomax for a while or it's new. I would not increase his Flomax to 2 caps daily since he already has some unsteady gait/weakness. Discussed tx options for BPH. Will proceed w cysto to assess degree of obstruction. If significant,pt may require WARD procedure such as Rezum, Urolift, or TURP. Brochures provided. If no significantobstruction noted could proceed w void trial +/- Uros. The risks and benefits for cystoscopy have been discussed. The risks include bleeding, infection, and irritation of the bladder and urinary channel, among others. The patient, after being informed ofprocedural details and after questions have been answered, wishes to proceed. Full informed consenthas been obtained. Will order Local anesthesia. Ordered: E&M of New Patient Moderate 45-59 Min 32958 3. Prostate cancer screening (Z12.5: Encounter for screening for malignant neoplasm of prostate) None on Clinisync. Will check w PCP office. If they don't have any, will need to update (perhaps after arenas removed?) Ordered: E&M of New Patient Moderate 45-59 Min 40755 Other obstructive and reflux uropathy (N13.8: Other obstructive and reflux uropathy) Follow-up With When Contact Information [facility] [address] [place] [address] Business (1) Additional Instructions: our ham trimmer will be contacting you for follow-up Patient [...] Tab, 40 mg= 1 tab(s) Potassium Chloride (Pzb-Ylyf-Vtj 10), Oral, BID tamsulosin 0.4 mg Cap, 0.4 mg= 1 cap(s) thiamine 100 mg Tab, Oral, Daily Allergies No Known Medication Allergies Social History Tobacco Never (less than 100 in lifetime) Tobacco Use:. Never Smokeless Tobacco Use:. Household to (more content not included)...[facility] Comment on above:Result Comment: Electronically Signed By: KIKI OLIVIER PA-C\Date and Time Signed: 06/26/2511:05 ESTAmbulatory Visit Summaryon 70-33-5218Uwhtglxcrk Visit SummaryAmbulatory Visit Summary JOHNATHAN RODNEY :1955 Visit Date:06/25/2024 Ambulatory Visit Instructions Your Care Team Attending Physician - CHARLINE CHARLTON, KKII Pride Primary Care Physician - Ramon Sutherland MD This Is Your Medications List acetaminophen (acetaminophen 325 mg Tab) apixaban (apixaban 5 mg oral tablet) atorvastatin (atorvastatin 40 mg Tab) carvedilol (carvedilol 12.5 mg Tab) folic acid (folic acid 1 mg Tab) furosemide (furosemide 40 mg Tab) potassium chloride (Potassium Chloride (Grd-Vdxv-Uey 10)) tamsulosin (tamsulosin 0.4 mg Cap) thiamine [...] 1 Tablets Unchanged potassium chloride (Potassium Chloride (Dkg-Thwb-Icc 10)) By Mouth 2 times a day [...] you for choosing us for your care. [facility] HospitalCBC AND AUTO DIFFon 06-12-2024 ABSOLUTE BASOPHIL0.1 X10E9/LNormal0.0-0.2PChillicothe VA Medical CenterComment on above:Performed By: #### 87457-8, 2131-9, PINR, 65440-9, AHP, CMP, THYR, FEPR, CBCA, 48276-6, 70666-6, 1967-11, 2283-12, 2275- #### [facility] ([id number]) [address], [address] [place], [place] [address]XCGOKVIS NEUTROPHIL3.4 X10E9/LNormal1.5-6.6ProOhiohealth Grove City Methodist HospitalComment on above:Performed By: #### 62457-1, 9, PINR, 95707-6, AHP, CMP, THYR, FEPR, CBCA, 43232-3, 08264-7, 1967-11, 2283-12, 2275-08 #### [facility] ([id number]) [address], [address] [place], [place] [address]Imuxgopiv/100 WBC (Bld)2.5 %NormalProOhiohealth Grove City Methodist Hospital Comment on above:Performed By: #### 22353-7, 9, PINR, 23909-4, AHP, CMP, THYR, FEPR, CBCA, 40000-2, 76525-7, 1967-11, 2283-12, 2275-08 #### [facility] ([id number]) [address], [address] [place], [place] [address]Soormnvjfar (Bld) [#/Vol]0.2 10*3/uLNormal0.0-0.4ProOhiohealth Grove City Methodist HospitalComment on above:Performed By: #### 25655-1, 9, PINR, 21063- 9, AHP, CMP, THYR, FEPR, CBCA, 71196-7, 79971-2, 1967-11, 2283-12, 2275-08 #### [facility] ([id number]) [address], [address] [place], [place] [address]Cpvmzsfcwlj/100 WBC (Bld)4.1 %NormalProMedica [facility] Comment on above:Performed By: #### 83549-8, 2131-9, PINR, 01568-4, AHP, CMP, THYR, FEPR, CBCA, 64426-0, 92810-7, 1967-11, 8, 2275-4 #### [facility] ([id number]) [address], [address] [place], [place] [address]Mdmpcklmueo distribution width (RBC) [Ratio]22.9 %High11.5-15.0 Pro[facility]ica [facility] Methodist HospitalComment on above:Performed By: #### 48041-3, 2132-01, PINR, 30589-7, AHP, CMP, THYR, FEPR, CBCA, 00818-6, 90224-0, 1967-11, 2283-12, 2275- #### [facility] ([id number]) [address], [address] [place], [place] [address]HOKKZJRU8+AbnormalNONEProMedica [facility] City Methodist HospitalComment on above: Performed By: #### 87543-9, 9, PINR, 33339-9, AHP, CMP, THYR, FEPR, CBCA, 35753-0, 96746-0, 1967-11, 2283-12, 2275-4 #### [facility] ([id number]) [address], [address] [place], [place] [address]Dnopkyjpdl (Bld) [Volume fraction]31.1 %Djx73-14SixSqijet [facility] HospitalComment on above:Performed By: #### 73695-2, 9, PINR, 94491-6, AHP, CMP, THYR, FEPR, CBCA, 82353-7, 26724-4, 1967-11, 2283-12, 2275-4 #### [facility] ([id number]) [address], [address] [place], [place] [address]Rhpajurmyr (Bld) [Mass/Vol]9.9 g/dLLow13.0-17.0ProOhiohealth Grove City Methodist HospitalComment on above:Performed By: #### 63756-0, 9, PINR, 46161-1, AHP, CMP, THYR, FEPR, CBCA, 03574-7, 93152-1, 1967-7, 2283-8, 6-4 #### [facility] ([id number]) [address], [address] [place], [place] [address]Ucsvxtdfklx (Bld) [#/Vol]0.6 10*3/uLLow1.0-3.5ProMedMercy Health Defiance HospitalComment on above:Performed By: #### 91482-6, 2132-01, PINR, 66964-0, AHP, CMP, THYR, FEPR, CBCA, 85914-9, 46092-4, 1967-11, 2283-12, 2275-4 #### [facility] ([id number]) [address], [address] [place], [place] [address]Idluhpihqlm/100 WBC (Bld)13.2 %NormalCincinnati Shriners Hospital Comment on above:Performed By: #### 13451-3, 2132-01, PINR, 43580-4, AHP, CMP, THYR, FEPR, CBCA, 68076-6, 80016-5, 1967-11, 2283-12, 2275-4 #### [facility] ([id number]) [address], [address] [place], [place] [address]KQX (RBC) [Entitic mass]23.1 zkGhf12-88RpoOmmouxCincinnati Shriners Hospital Comment on above:Performed By: #### 28789-7, 2132-01, PINR, 72357-6, AHP, CMP, THYR, FEPR, CBCA, 30396-1, 39345-9, 1967-11, 2283-12, 6-4 #### [facility] ([id number]) [address], [address] [place], [place] [address]GCJD (RBC) [Mass/Vol]31.8 g/dTEpq23-49UysFmdpfdCincinnati Shriners Hospital Comment on above:Performed By: #### 85687-3, 9, PINR, 83350-2, AHP, CMP, THYR, FEPR, CBCA, 49860-2, 08656-5, 1967-, 2283-, 2275- #### [facility] ([id number]) [address], [address] [place], [place] [address]VAA (RBC) [Entitic vol]73 yBOqb88-441ZjeYumytjCincinnati Shriners Hospital Comment on above:Performed By: #### 78581-4, 9, PINR, 03006-8, AHP, CMP, THYR, FEPR, CBCA, 79006-1, 96883-7, 1967-, 2283-12, 2275- #### [facility] ([id number]) [address], [address] [place], [place] [address]Ybrqjwyat (Bld) [#/Vol]0.4 10*3/uLNormal0-0.9Cincinnati Shriners HospitalComment on above:Performed By: #### 15380-2, 9, PINR, 35403-1, AHP, CMP, THYR, FEPR, CBCA, 66918-5, 59228-6, 1967-11, 2283-12, 2275- #### [facility] ([id number]) [address], [address] [place], [place] [address]Jxntpyecz/100 WBC (Bld)8.5 %NormalCincinnati Shriners Hospital Comment on above:Performed By: #### 02943-7, 9, PINR, 31561-2, AHP, CMP, THYR, FEPR, CBCA, 06107-1, 92069-6, 1967-11, 2283-12, 2275- #### [facility] ([id number]) [address], [address] [place], [place] [address]Eitohpzhmqz/100 WBC (Bld)71.7 %NormalProSelect Medical Trihealth Rehabilitation Hospitalca [facility] Comment on above:Performed By: #### 35297-0, 9, PINR, 71740-0, AHP, CMP, THYR, FEPR, CBCA, 77532-0, 58199-2, 1967-11, 2283-12, 2275- #### [facility] ([id number]) [address], [address] [place], [place] [address]LRHNAPXRF0+AbnormalNONEProMedica [facility] Methodist HospitalComment on above:Performed By: #### 88105-7, 2132-01, PINR, 16931-1, AHP, CMP, THYR, FEPR, CBCA, 79355-3, 17168-1, 1967-11, 2283-12, 2275- #### [facility] ([id number]) [address], [address] [place], [place] [address]Kaxepvck mean volume (Bld) [Entitic vol]8.0 fLNormal7-12 [facility] HospitalComment on above:Performed By: #### 62175-2, 2132-01, PINR, 42151-9, AHP, CMP, THYR, FEPR, CBCA, 71160-6, 23287-4, 1967-11, 2283-12, 2275- #### [facility] ([id number]) [address], [address] [place], [place] [address]Sjqytqoww (Bld) [#/Vol]226 10*3/hFZioocc029-924ZtpUchovw [facility] HospitalComment on above:Performed By: #### 14536-2, 9, PINR, 35554-3, AHP, CMP, THYR, FEPR, CBCA, 65576-8, 65007-4, 1967-11, 2283-12, 2275- #### [facility] ([id number]) [address], [address] [place], [place] [address]TMGUSMVNCYACI9+AbnormalNONEProMedica [facility] Methodist HospitalComment on above:Performed By: #### 90406-6, 2131-9, PINR, 81673-4, AHP, CMP, THYR, FEPR, CBCA, 65083-2, 48712-6, 1967-11, 2283-12, 2275-4 #### [facility] ([id number]) [address], [address] [place], [place] [address]EIQ COUNT4.27 X10E12/LNormal4.10-5.70ProOhiohealth Grove City Methodist Hospital Comment on above:Performed By: #### 50011-4, 9, PINR, 31407-9, AHP, CMP, THYR, FEPR, CBCA, 92096-5, 98736-8, 1967-11, 2283-12, 2275- #### [facility] ([id number]) [address], [address] [place], [place] [address]ZZGQSYWG4+AbnormalNONEProMedica [facility] HospitalComment on above: Performed By: #### 92159-6, 9, PINR, 90117-7, AHP, CMP, THYR, FEPR, CBCA, 07613-2, 73999-0, 1967-11, 2283-12, 2275-4 #### [facility] ([id number]) [address], [address] [place], [place] [address]TQU (Bld) [#/Vol]4.7 10*3/uLNormal4.0-11.0ProOhiohealth Grove City Methodist HospitalComment on above:Performed By: #### 29551-5, 9, PINR, 95232-0, AHP, CMP, THYR, FEPR, CBCA, 11288-4, 44957-5, 1967-11, 2283-12, 2275-4 #### [facility] ([id number]) [address], [address] [place], [place] [address]TXH auto differentialon 03-86-0352Ckdjsptuv (Bld) [#/Vol]0.1 10*3/uLProMedica Health SystemBasophils/100 WBC (Bld)2.5 %ProMedica Health SystemDacrocytes LM Ql (Bld)1+AbnormalNONE^NONEProMedica Health System Eosinophils (Bld) [#/Vol]0.2 10*3/uLProMedica Health SystemEosinophils/100 WBC (Bld)4.1 %ProMedica Health SystemErythrocyte distribution width (RBC) [Ratio] 22.9 %High11.5 - 15.0 %ProMedica Health SystemFragments LM Ql (Bld)1+Abnormal NONE^NONEProMedica Health SystemHematocrit (Bld) [Volume fraction]31.1 %Low39 - 49 %ProMedica Health SystemHemoglobin (Bld) [Mass/Vol]9.9 g/dLLow13.0 - 17.0 g/dLMorrow County Hospital Health SystemInterpretation and review of laboratory results AbnormalCincinnati Shriners Hospitalca Health SystemLymphocytes (Bld) [#/Vol]0.6 10*3/uLLowProNorth Baldwin Infirmary Health SystemLymphocytes/100 WBC (Bld)13.2 %City HospitalMCH (RBC) [Entitic mass]23.1 pgLow27 - 34 [facility] HospitalMCHC (RBC) [Mass/Vol] 31.8 g/dLLow32 - 36 g/dLCity HospitalMCV (RBC) [Entitic vol]73 fLLow80 - 100 [facility] SystemMonocytes (Bld) [#/Vol]0.4 10*3/uLProMedica Health SystemMonocytes/100 WBC (Bld)8.5 %[facility] Health SystemNeutrophils (Bld) [#/Vol]3.4 10*3/uLProMedica Health SystemNeutrophils/100 WBC (Bld)71.7 % ProMedica Health SystemOvalocytes LM Ql (Bld)1+AbnormalNONE^NONEProMedica Health SystemPlatelet mean volume (Bld) [Entitic vol]8 fL7 - 12 fLPParkview Health Montpelier HospitalPlatelets (Bld) [#/Vol]226 10*3/uLCity HospitalPolychromasia LM Ql (Bld)1+AbnormalNONE^NONECity HospitalRBC (Bld) [#/Vol]4.27 10*6/uL City HospitalWBC corrected for nucl RBC Auto (Bld) [#/Vol]4.7ProACMH HospitalCBC AND AUTO DIFFon 75-80-2626VADFIFZO BASOPHIL0.1 X10E9/LNormal0.0-0.2PChillicothe VA Medical CenterComment on above: Performed By: #### 57610-7, 9, PINR, 15855-0, AHP, CMP, THYR, FEPR, CBCA, 66271-3, 49443-4, 1967-, 2283-12, 2275- #### [facility] ([id number]) [address] [place] [address], [address] [place], [place] [address]Kzbxnyite/100 WBC (Bld)1.0 %NormalCincinnati Shriners Hospital Comment on above:Performed By: #### 29698-4, 2132-01, PINR, 41689-7, AHP, CMP, THYR, FEPR, CBCA, 84965-3, 80139-5, 1967-, 2283-, 2275-4 #### [facility] ([id number]) [address] [facility], [address] [place], [place] [address]Iqxuuujusih (Bld) [#/Vol]0.3 10*3/uLNormal0.0-0.4Cincinnati Shriners HospitalComment on above:Performed By: #### 70010-3, 9, PINR, 96603- 9, AHP, CMP, THYR, FEPR, CBCA, 18423-8, 59586-4, 1967-11, 2283-12, 2275- #### [facility] ([id number]) [address], [address] [place], [place] [address]Rwsuawywypp/100 WBC (Bld)4.9 %NormalProSelect Medical Trihealth Rehabilitation Hospitalca [facility] Comment on above:Performed By: #### 71823-0, 2131-9, PINR, 11700-5, AHP, CMP, THYR, FEPR, CBCA, 67340-3, 96166-7, 1967-11, 2283-12, 2275- #### [facility] ([id number]) [address], [address] [place], [place] [address]Vlyvfuvvhfn distribution width (RBC) [Ratio]23.5 %High11.5-15.0 [facility] HospitalComment on above:Performed By: #### 99691-8, 2132-01, PINR, 26094-5, AHP, CMP, THYR, FEPR, CBCA, 75236-3, 24457-4, 1967-11, 2283-12, 2275- #### [facility] ([id number]) [address], [address] [place], [place] [address]DHPUHHVK2+AbnormalNONEProMedica Rockford HospitalComment on above: Performed By: #### 30044-4, 9, PINR, 18630-0, AHP, CMP, THYR, FEPR, CBCA, 07102-6, 03331-3, 1967-11, 2283-12, 2275- #### [facility] ([id number]) [address], [address] [place], [place] [address]Qauiumcwsh (Bld) [Volume fraction]32.3 %Qng80-91VrmSjrcynOhiohealth Grove City Methodist HospitalComment on above:Performed By: #### 09034-8, 9, PINR, 37053-9, AHP, CMP, THYR, FEPR, CBCA, 22518-3, 92320-0, 1967-11, 2283-12, 2275- #### [facility] ([id number]) [address], [address] [place], [place] [address]Dqbnagouwv (Bld) [Mass/Vol]10.0 g/dLLow13.0-17.0ProOhiohealth Grove City Methodist HospitalComment on above:Performed By: #### 28658-7, 9, PINR, 17997-1, AHP, CMP, THYR, FEPR, CBCA, 10613-5, 98095-1, 1967-11, 2283-12, 2275-4 #### [facility] ([id number]) [address], [address] [place], [place] [address]QIKFWLBUPUB7+AbnormalNONEPChillicothe VA Medical CenterComment on above:Performed By: #### 16878-4, 2132-01, PINR, 10262-0, AHP, CMP, THYR, FEPR, CBCA, 05503-6, 32409-9, 1967-11, 2283-12, 2275- #### [facility] ([id number]) [address], [address] [place], [place] [address]Hnzaxminrno (Bld) [#/Vol]0.4 10*3/uLLow1.0-3.5PChillicothe VA Medical CenterComment on above:Performed By: #### 73546-8, 9, PINR, 99123-5, AHP, CMP, THYR, FEPR, CBCA, 64074-9, 99520-6, 1967-11, 2283-12, 2275- #### [facility] ([id number]) [address], [address] [place], [place] [address]Hlqwhgpvjbf/100 WBC (Bld)6.9 %NormalProOhiohealth Grove City Methodist Hospital Comment on above:Performed By: #### 56018-5, 9, PINR, 02096-4, AHP, CMP, THYR, FEPR, CBCA, 32990-0, 44717-4, 1967-11, 2283-12, 2275- #### [facility] ([id number]) [address], [address] [place], [place] [address]QWX (RBC) [Entitic mass]22.7 ywVjf24-41KqoFmsmzvCincinnati Shriners Hospital Comment on above:Performed By: #### 01109-7, 2-9, PINR, 94062-4, AHP, CMP, THYR, FEPR, CBCA, 09956-7, 19678-5, 1967-11, 2283-12, 2275- #### [facility] ([id number]) [address], [address] [place], [place] [address]RHJW (RBC) [Mass/Vol]31.1 g/mIMch03-93ZbvNequgvCincinnati Shriners Hospital Comment on above:Performed By: #### 37378-4, 2131-9, PINR, 37390-3, AHP, CMP, THYR, FEPR, CBCA, 26021-2, 91377-3, 1967-11, 2283-12, 2275-08 #### [facility] ([id number]) [address], [address] [place], [place] [address]QOL (RBC) [Entitic vol]73 vYBhm79-156HjgHktxrkCincinnati Shriners Hospital Comment on above:Performed By: #### 99017-4, 2-9, PINR, 39770-7, AHP, CMP, THYR, FEPR, CBCA, 28503-3, 60762-1, 1967-11, 2283-12, 2275- #### [facility] ([id number]) [address], [address] [place], [place] [address]Qqtkkkmvf (Bld) [#/Vol]0.4 10*3/uLNormal0-0.9C[facility] Shriners HospitalComment on above:Performed By: #### 71734-8, 2131-9, PINR, 85245-1, AHP, CMP, THYR, FEPR, CBCA, 28305-0, 04528-8, 1967-11, 2283-12, 2275-08 #### [facility] ([id number]) [address], [address] [place], [place] [address]Bimlixvvf/100 WBC (Bld)7.8 %NormalProOhiohealth Grove City Methodist Hospital Comment on above:Performed By: #### 29035-6, 2131-9, PINR, 99355-0, AHP, CMP, THYR, FEPR, CBCA, 80135-5, 10056-0, 1967-11, 2283-12, 2275- #### [facility] ([id number]) [address] [facility], [address] [place], [place] [address]Ywtkzmbrigg (Bld) [#/Vol]4.5 10*3/uLNormal1.5-6.6[facility] HospitalComment on above:Performed By: #### 90461-8, 9, PINR, 93152- 9, AHP, CMP, THYR, FEPR, CBCA, 02887-8, 17969-8, 1967-11, 2283-12, 2275-08 #### [facility] ([id number]) [address] [facility], [address] [place], [place] [address]BMYTQDGUB3+AbnormalNONEProMedica [facility] HospitalComment on above:Performed By: #### 92652-5, 9, PINR, 67433-9, AHP, CMP, THYR, FEPR, CBCA, 20746-9, 34279-6, 1967-11, 2283-12, 2275-08 #### [facility] ([id number]) [address] [facility], [address] [place], [place] [address]Ifzyfueu mean volume (Bld) [Entitic vol]8.7 fLNormal7-12 [facility] HospitalComment on above:Performed By: #### 13367-6, 2131-9, PINR, 28196-9, AHP, CMP, THYR, FEPR, CBCA, 59850-2, 36301-8, 1967-11, 2283-, 2275- #### [facility] ([id number]) [address] [place] [address], [address] [place], [place] [address]Iddxqawcx (Bld) [#/Vol]226 10*3/tDHkyias733-047ExrDbawub Rockford HospitalComment on above:Performed By: #### 69607-5, 9, PINR, 25580-6, AHP, CMP, THYR, FEPR, CBCA, 75798-9, 85696-1, 1967-11, 2283-12, 2275- #### [facility] ([id number]) [address] [place] [address], [address] [place], [place] [address]GSDZFQXNXPAAI4+AbnormalNONEProMedica Rockford HospitalComment on above:Performed By: #### 15248-5, 9, PINR, 52633-7, AHP, CMP, THYR, FEPR, CBCA, 07031-5, 33473-7, 1967-11, 2283-12, 2275- #### [facility] ([id number]) [address] [place] [address], [address] [place], [place] [address]KSH COUNT4.42 X10E12/LNormal4.10-5.70ProSelect Medical [facility] Rehabilitation Hospitalca [facility] Comment on above:Performed By: #### 28788-3, 9, PINR, 32588-6, AHP, CMP, THYR, FEPR, CBCA, 19922-3, 41776-5, 1967-11, 2283-12, 2275- #### [facility] ([id number]) [address] [place] [address], [address] [place], [place] [address]VKE RMTELZOLGL64.4 %NormalProMedica Rockford HospitalComment on above:Performed By: #### 77536-3, 9, PINR, 34997-9, AHP, CMP, THYR, FEPR, CBCA, 23389-4, 93407-4, 1967-11, 2283-8, 2275-4 #### [facility] ([id number]) [address] [facility], [address] [place], [place] [address]DEE (Bld) [#/Vol]5.7 10*3/uLNormal4.0-11.0[facility]ers HospitalComment on above:Performed By: #### 62574-4, 9, PINR, 74100-7, AHP, CMP, THYR, FEPR, CBCA, 48186-9, 59169-6, 1967-11, 2283-8, 2275- #### [facility] ([id number]) [address] [facility], [address] [place], [place] [address]TBI auto differentialon 89-13-9204Kyopfpbrv (Bld) [#/Vol]0.1 10*3/uLCity HospitalBasophils/100 WBC (Bld)1 %[facility] Eosinophils (Bld) [#/Vol]0.3 10*3/uLCity HospitalEosinophils/100 WBC (Bld)4.9 %City HospitalErythrocyte distribution width (RBC) [Ratio] 23.5 %High11.5 - 15.0 %City HospitalFragments LM Ql (Bld)1+Abnormal NONE^[facility] CenterHematocrit (Bld) [Volume fraction]32.3 %Low39 - 49 %City HospitalHemoglobin (Bld) [Mass/Vol]10 g/dLLow13.0 - 17.0 g/dL City HospitalHypochromia Ql (Bld)1+AbnormalNONE^[facility] SystemInterpretation and review of laboratory resultsAbnormalCity HospitalLymphocytes (Bld) [#/Vol]0.4 10*3/uLLowTwin City Hospital System Lymphocytes/100 WBC (Bld)6.9 %City HospitalMCH (RBC) [Entitic mass] 22.7 pgLow27 - 34 [facility] HospitalMCHC (RBC) [Mass/Vol]31.1 g/dLLow32 - 36 g/dLCity HospitalMCV (RBC) [Entitic vol]73 fLLow80 - 100 fL City HospitalMonocytes (Bld) [#/Vol]0.4 10*3/[facility] Monocytes/100 WBC (Bld)7.8 %City HospitalNeutrophils (Bld) [#/Vol]4.5 10*3/[facility] HospitalOvalocytes LM Ql (Bld)2+AbnormalNONE^[facility] CenterPlatelet mean volume (Bld) [Entitic vol]8.7 fL7 - 12 [facility] SystemPlatelets (Bld) [#/Vol]226 10*3/[facility] Polychromasia LM Ql (Bld)1+AbnormalNONE^[facility] CenterRBC (Bld) [#/Vol]4.42 10*6/[facility] Hospitalegmented neutrophils/100 WBC (Bld) 79.4 %City HospitalWBC corrected for nucl RBC Auto (Bld) [#/Vol]5.7 [facility] Community HospitalCOMPREHENSIVE METABOLIC PANELon 48-15-5393Xihefaa [Mass/Vol]3.4 g/dLNormal3.2-5.3PChillicothe VA [facility] Center Comment on above:Performed By: #### 30160-7, 2132-01, PINR, 50011-5, AHP, CMP, THYR, FEPR, CBCA, 65401-4, 17016-9, 1967-11, 2283-12, 2275- #### [facility] ([id number]) [address] [facility], [address] [place], [place] [address]ZOI [Catalytic activity/Vol]67 U/MUsnrhw89-399XraXzxmwvCincinnati Shriners HospitalComment on above:Performed By: #### 16394-3, 2132-01, PINR, 63799-2, AHP, CMP, THYR, FEPR, CBCA, 61485-2, 16954-9, 1967-11, 2283-12, 2275-08 #### [facility] ([id number]) [address] [facility], [address] [place], [place] [address]JIG [Catalytic activity/Vol]21 U/LNormal0-40ProOhiohealth Grove City Methodist HospitalComment on above:Performed By: #### 72664-9, 9, PINR, 93074-2, AHP, CMP, THYR, FEPR, CBCA, 76674-7, 00093-1, 1967-11, 2283-12, 2275- #### [facility] ([id number]) [address] [facility], [address] [place], [place] [address]Giirx gap [Moles/Vol]10 mmol/LNormal5-15ProOhiohealth Grove City Methodist HospitalComment on above:Performed By: #### 50114-7, 9, PINR, 43656-0, AHP, CMP, THYR, FEPR, CBCA, 93813-1, 95461-8, 1967-11, 2283-12, 2275-08 #### [facility] ([id number]) [address] [facility], [address] [place], [place] [address]INL [Catalytic activity/Vol]28 U/LNormal0-41ProOhiohealth Grove City Methodist HospitalComment on above:Performed By: #### 54066-7, 9, PINR, 54505-1, AHP, CMP, THYR, FEPR, CBCA, 19911-7, 32321-7, 1967-11, 2283-12, 2275- #### [facility] ([id number]) [address] [facility], [address] [place], [place] [address]Vdrzgnfwy [Mass/Vol]0.7 mg/dLNormal0.3-1.2[facility] HospitalComment on above:Performed By: #### 17831-8, 9, PINR, 18202-6, AHP, CMP, THYR, FEPR, CBCA, 38870-2, , 1967-11, 2283-12, 2275-08 #### [facility] ([id number]) [address] [facility], [address] [place], [place] [address]Lowoiqz [Mass/Vol]8.3 mg/dLLow8.5-10.5PChillicothe VA Medical Center Comment on above:Performed By: #### 72003-1, 9, PINR, 94579-6, AHP, CMP, THYR, FEPR, CBCA, 20845-8, 52543-0, 1967-11, 2283-12, 2275-08 #### [facility] ([id number]) [address] [facility], [address] [place], [place] [address]Xtdkvicb [Moles/Vol]105 mmol/DZofeyu67-634BhwHoyeoe Toledo HospitalComment on above:Performed By: #### 38696-5, 2132-01, PINR, 76985-2, AHP, CMP, THYR, FEPR, CBCA, 23740-9, 97764-4, 1967-11, 2283-12, 2275-08 #### [facility] ([id number]) [address] [facility], [address] [place], [place] [address]RT8 [Moles/Vol]26 mmol/OWgzlrs83-52UnzDcfkqiChillicothe VA Medical Center Comment on above:Performed By: #### 25810-6, 9, PINR, 94410-2, AHP, CMP, THYR, FEPR, CBCA, 35774-3, 31470-1, 1967-11, 2283-12, 2275-08 #### [facility] ([id number]) [address] [facility], [address] [place], [place] [address]Bvrvdmeofi [Mass/Vol]1.23 mg/dLNormal0.60-1.30ProOhiohealth Grove City Methodist HospitalComment on above:Result Comment: METHOD TRACEABLE TO IDMS STANDARD Performed By: #### 86261-1, 2132-01, PINR, 63572-3, AHP, CMP, THYR, FEPR, CBCA, 33405-3, 42976-5, 1967-11, 2283-12, 2275-08 #### [facility] ([id number]) [address] [address] [place], [place] [address]LQT/1.73 sq M.predicted among non-blacks MDRD (S/P/Bld) [Vol rate/Area]64 mL/min/{1.73_m2}Normal>59ProOhiohealth Grove City Methodist HospitalComment on above: Result Comment: Reported eGFR is based on the CKD-EPI 2020 equation that does not use a race coefficient.Performed By: #### 46798-1, 2132-01, PINR, 73310-8, AHP, CMP, THYR, FEPR, CBCA, , , 1967-11, 2283-12, 2275-08 #### [facility] ([id number]) [address] [address]Gdnmwuq [Mass/Vol]100 mg/kLYyro65-90BfpZtijgaOhiohealth Grove City Methodist Hospital Comment on above:Performed By: #### 76555-3, 2132-01, PINR, 65880-9, AHP, CMP, THYR, FEPR, CBCA, , 99194-5, 1967-11, 2283-12, 2275-08 #### [facility] ([id number]) [address] [address] [place], [place] [address]Evwdaptzn [Moles/Vol]3.7 mmol/LNormal3.5-5.0ProOhiohealth Grove City Methodist HospitalComment on above:Performed By: #### 61116-8, 2132-01, PINR, 19433-5, AHP, CMP, THYR, FEPR, CBCA, , , 1967-11, 2283-12, 2275- #### [facility] ([id number]) [address] [facility], [facility] [place], [place] [address]Sgybvku [Mass/Vol]6.0 g/dLNormal6.0-8.0[facility] Comment on above:Performed By: #### 40965-7, 2131-9, PINR, 54486-0, AHP, CMP, THYR, FEPR, CBCA, 65989-5, 69247-3, 1967-, 2283-8, 2275-4 #### [facility] ([id number]) [address] [place] [address], [address] [place], [place] [address]Tcamhx [Moles/Vol]141 mmol/YTvslnb058-850MgqGzqjrt Toledo HospitalComment on above:Performed By: #### 39568-8, 2132-01, PINR, 34526-0, AHP, CMP, THYR, FEPR, CBCA, 49763-1, 48747-3, 1967-11, 2283-12, 2275-4 #### [facility] ([id number]) [address] [place] [address], [address] [place], [place] [address]Ohaw nitrogen [Mass/Vol]27 mg/dLNormal5-27ProOhiohealth Grove City Methodist HospitalComment on above:Performed By: #### 86981-0, 2132-01, PINR, 39879-1, AHP, CMP, THYR, FEPR, CBCA, 00331-8, 05829-5, 1967-11, 2283-12, 2275- #### [facility] ([id number]) [address] [facility], [address] [place], [place] [address]Pdjgghaqvmhep metabolic panelon 19-52-1510Bdnxdzs [Mass/Vol]3.4 g/dL3.2 - 5.3 g/dLProMedica Health SystemALP [Catalytic activity/Vol]67 U/L39 - 130 U/LProMedica Health SystemALT No additional P-5'-P [Catalytic activity/Vol] 21 U/L0 - 40 U/LProMedica Health SystemAnion gap [Moles/Vol]10 mmol/L5 - 15 mmol/LProMedica Health SystemAST [Catalytic activity/Vol]28 U/L0 - 41 U/L City HospitalBilirubin [Mass/Vol]0.7 mg/dL0.3 - 1.2 mg/dLTwin City Hospital SystemCalcium [Mass/Vol]8.3 mg/dLLow8.5 - 10.5 mg/dLCity HospitalChloride [Moles/Vol]105 mmol/L98 - 109 mmol/[facility] Health SystemCO2 [Moles/Vol]26 mmol/L22 - 32 mmol/[facility] SystemCreatinine [Mass/Vol] 1.23 mg/dL0.60 - 1.30 mg/dLCity HospitalComment on above:METHOD TRACEABLE TO IDIL STANDARDeGFR (CKD-EPI)non-race lsygxjijd35- [facility] Center PortsmouthComment on above: Reported eGFR is based on the CKD-EPI 2020 equation that does not use a race coefficient. Glucose [Mass/Vol]100 mg/nWIgic35 - 99 mg/dLCity Hospital Interpretation and review of laboratory resultsAbnormalCity Hospital Potassium [Moles/Vol]3.7 mmol/L3.5 - 5.0 mmol/[facility] SystemProtein [Mass/Vol]6 g/dL6.0 - 8.0 g/dLFormerly Southeastern Regional Medical Centerodium [Moles/Vol]141 mmol/L134 - 146 mmol/[facility] SystemUrea nitrogen [Mass/Vol]27 mg/dL5 - 27 mg/dLGeisinger-Shamokin Area Community HospitalHEMOGLOBINon 06-11-2024 Hemoglobin (Bld) [Mass/Vol]10.4 g/dLLow13.0-17.0[facility]riners HospitalComment on above:Performed By: #### 54148-1, 2132-9, PINR, 55310-4, AHP, CMP, THYR, FEPR, CBCA, 00196-3, 05721-5, 1968-7, 2284-8, 2276-4 #### [facility] ([id number]) [address] [facility], [address] [place], [place] [address]Lftwwmpcxzwt 43-76-5133Thrqifvpmg (Bld) [Mass/Vol]10.4 g/dLLow 13.0 - 17.0 g/dLCity HospitalHemoglobin (Bld) [Mass/Vol]on 06-11-2024 Interpretation and review of laboratory resultsAbnormalAllegheny Valley HospitalPOTASSIUMon 18-45-2592Gizimzihu [Moles/Vol]4.0 mmol/L Normal3.5-5.0[facility]riners HospitalComment on above:Performed By: #### 29473- 0, 2132-01, PINR, 29509-7, AHP, CMP, THYR, FEPR, CBCA, 57570-9, 98880-8, 1967-, 2283-, 2275- #### [facility] ([id number]) [address] [place] [address], [address] [place], [place] [address]Rqnuzyvpqmm 51-04-8477Lsivfgzsu [Moles/Vol]4 mmol/L3.5 - 5.0 mmol/LPrProMedica Fostoria Community HospitalPotassium [Moles/Vol]on 81-12-8769DyoImqqysCity HospitalBASIC METABOLIC PANLon 73-36-8091Yhpzg gap [Moles/Vol]9 mmol/LNormal5-15 [facility]riners HospitalComment on above:Performed By: #### 37401-7, 2132-01, PINR, 45545-4, AHP, CMP, THYR, FEPR, CBCA, 33319-7, 28380-2, 1967-11, 2283-12, 2275-4 #### [facility] ([id number]) [address] [facility], [address] [place], [place] [address]Lblxxyz [Mass/Vol]8.3 mg/dLLow8.5-10.5PChillicothe VA [facility] Center Comment on above:Performed By: #### 80770-3, 2132-01, PINR, 90553-6, AHP, CMP, THYR, FEPR, CBCA, 82968-9, 45035-3, 1967-, 2283-12, 2275-4 #### [facility] ([id number]) [address], [address] [place], [place] [address]Cuhvovmy [Moles/Vol]103 mmol/LAhogke01-467TwnSigbyv Toledo HospitalComment on above:Performed By: #### 51031-2, 2132-01, PINR, 91529-5, AHP, CMP, THYR, FEPR, CBCA, 21156-0, 84424-9, 1967-11, 2283-12, 2275-08 #### [facility] ([id number]) [address], [address] [place], [place] [address]FE9 [Moles/Vol]28 mmol/GImwujc80-27KtbJrdmilChillicothe VA Medical Center Comment on above:Performed By: #### 44481-6, 2132-01, PINR, 14793-5, AHP, CMP, THYR, FEPR, CBCA, 32103-6, 44454-5, 1967-11, 2283-12, 2275-08 #### [facility] ([id number]) [address], [address] [place], [place] [address]Limcwjuaix [Mass/Vol]1.28 mg/dLNormal0.60-1.30ProOhiohealth Grove City Methodist HospitalComment on above:Result Comment: METHOD TRACEABLE TO IDMS STANDARD Performed By: #### 96364-0, 2132-01, PINR, 28739-8, AHP, CMP, THYR, FEPR, CBCA, 45823-6, 62797-5, 1967-11, 2283-12, 2275-08 #### [facility] ([id number]) [address], [address] [place], [place] [address]XFW/1.73 sq M.predicted among non-blacks MDRD (S/P/Bld) [Vol rate/Area]61 mL/min/{1.73_m2}Normal>59ProOhiohealth Grove City Methodist HospitalComment on above: Result Comment: Reported eGFR is based on the CKD-EPI 2020 equation that does not use a race coefficient.Performed By: #### 71581-1, 9, PINR, 52231-3, AHP, CMP, THYR, FEPR, CBCA, 60582-5, 02983-8, 1967-11, 2283-12, 2275-08 #### [facility] ([id number]) [address], [address] [place], [place] [address]Jocdsia [Mass/Vol]103 mg/eNHlfb20-87DmfYjqtihOhiohealth Grove City Methodist Hospital Comment on above:Performed By: #### 87021-0, 2132-01, PINR, 81840-8, AHP, CMP, THYR, FEPR, CBCA, 88769-9, 60587-6, 1967-11, 2283-12, 2275- #### [facility] ([id number]) [address], [address] [place], [place] [address]Stsnogxdh [Moles/Vol]3.4 mmol/LLow3.5-5.0ProOhiohealth Grove City Methodist HospitalComment on above:Performed By: #### 10331-0, 2132-01, PINR, 76589-6, AHP, CMP, THYR, FEPR, CBCA, , , 1967-11, 2283-12, 2275-08 #### [facility] ([id number]) [address], [address] [place], [place] [address]Adifip [Moles/Vol]140 mmol/TApprfc812-156QceDvekwv Toledo HospitalComment on above:Performed By: #### 24892-4, 2132-01, PINR, 95961-0, AHP, CMP, THYR, FEPR, CBCA, 29146-9, 77746-4, 1967-11, 2283-12, 2275-08 #### [facility] ([id number]) [address], [address] [place], [place] [address]Bnzn nitrogen [Mass/Vol]22 mg/dLNormal5-27ProOhiohealth Grove City Methodist HospitalComment on above:Performed By: #### 21713-1, 2132-01, PINR, 68319-4, AHP, CMP, THYR, FEPR, CBCA, 24314-7, 23419-1, 1967-, 2283-, 2275- #### [facility] ([id number]) [address] [place], [place] [address]Gzjxr Metabolic Panelon 10-29-3817Rhapf gap [Moles/Vol]9 mmol/L5 - 15 mmol/LPrDelta County Memorial Hospital Health SystemCalcium [Mass/Vol]8.3 mg/dLLow8.5 - 10.5 mg/dLTwin City Hospital SystemChloride [Moles/Vol]103 mmol/L98 - 109 mmol/L [facility] SystemCO2 [Moles/Vol]28 mmol/L22 - 32 mmol/LPrDelta County Memorial Hospital Health SystemCreatinine [Mass/Vol]1.28 mg/dL0.60 - 1.30 mg/dLCity Hospital Comment on above:METHOD TRACEABLE TO IDMS STANDARDeGFR (CKD-EPI)non-race xyyoyffhb25- [facility] PortsmouthComment on above: Reported eGFR is based on the CKD-EPI 2020 equation that does not use a race coefficient. Glucose [Mass/Vol]103 mg/iDNnnw38 - 99 mg/dLCity Hospital Interpretation and review of laboratory resultsAbnormalTwin City Hospital System Potassium [Moles/Vol]3.4 mmol/LLow3.5 - 5.0 mmol/LProMedica Health SystemSodium [Moles/Vol]140 mmol/L134 - 146 mmol/[facility] SystemUrea nitrogen [Mass/Vol]22 mg/dL5 - 27 mg/dLTwin City Hospital SystemCity HospitalCBC AND AUTO DIFFon 80-86-0064JPXQZDXDZFS6+AbnormalNONEPChillicothe VA Medical Center Comment on above:Performed By: #### 40745-6, 2132-01, PINR, 27657-7, AHP, CMP, THYR, FEPR, CBCA, 98470-3, 37148-2, 1967-, 2283-, 2275- #### [facility] ([id number]) [address], [address] [place], [place] [address]Ceiefxtbuhuu Ql (Bld)2+AbnormalLancaster Municipal Hospital Comment on above:Performed By: #### 90835-4, 2131-9, PINR, 49073-6, AHP, CMP, THYR, FEPR, CBCA, 94622-4, 17773-1, 1967-11, 2283-12, 2275- #### [facility] ([id number]) [address], [address] [place], [place] [address]OLJP5+AbnormalNONEPChillicothe VA Medical CenterComment on above: Performed By: #### 09101-5, 9, PINR, 75525-4, AHP, CMP, THYR, FEPR, CBCA, 69717-9, 49670-9, 1967-11, 2283-12, 2275- #### [facility] ([id number]) [address], [address] [place], [place] [address]Udawfktgsbp (Bld) [#/Vol]0.2 10*3/uLNormal0.0-0.4ProOhiohealth Grove City Methodist HospitalComment on above:Performed By: #### 16208-2, 9, PINR, 26766- 9, AHP, CMP, THYR, FEPR, CBCA, 78451-8, 99983-9, 1967-11, 2283-12, 2275- #### [facility] ([id number]) [address], [address] [place], [place] [address]Lppolwdedbi/100 WBC (Bld)3.0 %NormalCincinnati Shriners Hospital Comment on above:Performed By: #### 65068-3, 9, PINR, 66279-4, AHP, CMP, THYR, FEPR, CBCA, 64327-6, 24149-0, 1967-11, 2283-12, 2275- #### [facility] ([id number]) [address], [address] [place], [place] [address]Uuazsirasiv distribution width (RBC) [Ratio]23.3 %High11.5-15.0 [facility] City Methodist HospitalComment on above:Performed By: #### 78090-2, 9, PINR, 38262-9, AHP, CMP, THYR, FEPR, CBCA, 78973-2, 42286-8, 1967-11, 2283-12, 2275-08 #### [facility] ([id number]) [address], [address] [place], [place] [address]TFXEXIWT0+AbnormalNONEProMedica Ohiohealth Grove City Methodist HospitalComment on above: Performed By: #### 66718-3, 2132-01, PINR, 97701-8, AHP, CMP, THYR, FEPR, CBCA, 99039-7, 46964-6, 1967-11, 2283-12, 2275- #### [facility] ([id number]) [address], [address] [place], [place] [address]Ieeusxkkvg (Bld) [Volume fraction]31.8 %Xtb76-81BotOmmqqhOhiohealth Grove City Methodist HospitalComment on above:Performed By: #### 01506-4, 2132-01, PINR, 24236-0, AHP, CMP, THYR, FEPR, CBCA, 50230-3, 62389-0, 1967-11, 2283-12, 2275- #### [facility] ([id number]) [address], [address] [place], [place] [address]Rumdtvnrvl (Bld) [Mass/Vol]9.9 g/dLLow13.0-17.0ProOhiohealth Grove City Methodist HospitalComment on above:Performed By: #### 43853-8, 9, PINR, 58005-3, AHP, CMP, THYR, FEPR, CBCA, 56744-0, 30042-0, 1967-11, 2283-12, 2275-4 #### [facility] ([id number]) [address], [address] [place], [place] [address]FPPUXBRWGEK3+AbnormalNONEPChillicothe VA Medical CenterComment on above:Performed By: #### 85024-0, 2131-9, PINR, 24596-6, AHP, CMP, THYR, FEPR, CBCA, 96842-7, 11050-9, 1967-11, 2283-12, 2275- #### [facility] ([id number]) [address], [address] [place], [place] [address]Bgyqzmzpgmw (Bld) [#/Vol]0.6 10*3/uLLow1.0-3.5ProMedMercy Health Defiance HospitalComment on above:Performed By: #### 06714-9, 9, PINR, 00494-2, AHP, CMP, THYR, FEPR, CBCA, 69739-8, 55364-2, 1967-11, 2283-12, 2275- #### [facility] ([id number]) [address], [address] [place], [place] [address]Ylwxsttzjnr/100 WBC (Bld)9.0 %NormalCincinnati Shriners Hospital Comment on above:Performed By: #### 55071-2, 9, PINR, 89663-8, AHP, CMP, THYR, FEPR, CBCA, 98266-4, 07192-8, 1967-11, 2283-12, 2275- #### [facility] ([id number]) [address], [address] [place], [place] [address]XLA (RBC) [Entitic mass]22.6 vrAau83-84EbfIehapoCincinnati Shriners Hospital Comment on above:Performed By: #### 05612-6, 2131-9, PINR, 04376-3, AHP, CMP, THYR, FEPR, CBCA, 95116-5, 16470-6, 1967-11, 2283-12, 2275-08 #### [facility] ([id number]) [address], [address] [place], [place] [address]LPEU (RBC) [Mass/Vol]31.1 g/cJQys91-56QidHtnjiaCincinnati Shriners Hospital Comment on above:Performed By: #### 42356-9, 2131-9, PINR, 89180-5, AHP, CMP, THYR, FEPR, CBCA, 26565-0, 62071-0, 1967-11, 2283-12, 2275-08 #### [facility] ([id number]) [address], [address] [place], [place] [address]BMF (RBC) [Entitic vol]73 vLOwa25-753ZicCglxatCincinnati Shriners Hospital Comment on above:Performed By: #### 90030-8, 2131-9, PINR, 42436-7, AHP, CMP, THYR, FEPR, CBCA, 71687-2, 68455-7, 1967-11, 2283-12, 2275-08 #### [facility] ([id number]) [address], [address] [place], [place] [address]Shwhwbypd (Bld) [#/Vol]0.5 10*3/uLNormal0-0.9Cincinnati Shriners HospitalComment on above:Performed By: #### 70531-4, 9, PINR, 50636-5, AHP, CMP, THYR, FEPR, CBCA, 14864-2, 53819-0, 1967-11, 2283-12, 2275-08 #### [facility] ([id number]) [address], [address] [place], [place] [address]Gtfycsujw/100 WBC (Bld)8.0 %NormalCincinnati Shriners Hospital Comment on above:Performed By: #### 78883-7, 2131-9, PINR, 88454-9, AHP, CMP, THYR, FEPR, CBCA, 02415-8, 77521-9, 1967-11, 2283-12, 2275- #### [facility] ([id number]) [address], [address] [place], [place] [address]Vdvzdnnxxjy (Bld) [#/Vol]5.4 10*3/uLNormal1.5-6.6ProMedica Rockford HospitalComment on above:Performed By: #### 65029-4, 9, PINR, 29684- 9, AHP, CMP, THYR, FEPR, CBCA, 52441-2, 76067-8, 1967-11, 2283-12, 2275-08 #### [facility] ([id number]) [address] [facility], [address] [place], [place] [address]AXOYAZHNP5+AbnormalNONEProMedica Rockford HospitalComment on above:Performed By: #### 24753-6, 9, PINR, 76286-7, AHP, CMP, THYR, FEPR, CBCA, 65837-2, 86754-4, 1967-11, 2283-12, 2275- #### [facility] ([id number]) [address] [facility], [address] [place], [place] [address]Ldbikmdz mean volume (Bld) [Entitic vol]8.7 fLNormal7-12 Pro[facility]ica Rockford HospitalComment on above:Performed By: #### 16098-9, 9, PINR, 24348-2, AHP, CMP, THYR, FEPR, CBCA, 84316-6, 99992-3, 1967-11, 2283-12, 2275- #### [facility] ([id number]) [address] [place] [address], [address] [place], [place] [address]Xcrgkdhct (Bld) [#/Vol]243 10*3/bHJlljmh389-896EkaSskgpe Rockford HospitalComment on above:Performed By: #### 47361-3, 9, PINR, 88238-4, AHP, CMP, THYR, FEPR, CBCA, 54851-8, 45498-9, 1967-7, 2283-8, 6-4 #### [facility] ([id number]) [address] [place] [address], [address] [place], [place] [address]VTY COUNT4.37 X10E12/LNormal4.10-5.70[facility] Comment on above:Performed By: #### 16518-2, 2132-01, PINR, 02486-7, AHP, CMP, THYR, FEPR, CBCA, 29957-1, 10439-9, 1967-, 8, 2275- #### [facility] ([id number]) [address] [place] [address], [address] [place] [address]EYQ UZAVUJSRFG91.0 %NormalProOhiohealth Grove City Methodist HospitalComment on above:Performed By: #### 36158-0, 2132-01, PINR, 06768-8, AHP, CMP, THYR, FEPR, CBCA, 24518-1, 00079-7, 1967-, 2283-12, 2275- #### [facility] ([id number]) [address] [place] [address], [address] [place] [address]ZZT (Bld) [#/Vol]6.7 10*3/uLNormal4.0-11.0ProOhiohealth Grove City Methodist HospitalComment on above:Performed By: #### 57941-0, 2132-01, PINR, 48621-6, AHP, CMP, THYR, FEPR, CBCA, 98690-9, 18656-7, 1967-11, 2283-12, 2275- #### [facility] ([id number]) [address] [place] [address], [address] [place] [address]JUD auto differentialon 66-62-4827Yddefxfmcnsn LM Ql (Bld)2+ AbnormalNONE^NONEProMedica Health SystemAnisocytosis Ql (Bld)2+AbnormalNONE^NONE [facility]ica Health SystemBurr cells LM Ql (Bld)1+AbnormalNONE^NONECity HospitalEosinophils (Bld) [#/Vol]0.2 10*3/[facility] Eosinophils/100 WBC (Bld)3 %City HospitalErythrocyte distribution width (RBC) [Ratio]23.3 %High11.5 - 15.0 %[facility] SystemFragments LM Ql (Bld)1+AbnormalNONE^NONECity HospitalHematocrit (Bld) [Volume fraction]31.8 %Low39 - 49 %City HospitalHemoglobin (Bld) [Mass/Vol]9.9 g/dLLow13.0 - 17.0 g/dLCity HospitalHypochromia Ql (Bld)1+Abnormal NONE^[facility] CenterInterpretation and review of laboratory results AbnormalCity HospitalLymphocytes (Bld) [#/Vol]0.6 10*3/uLLowCity HospitalLymphocytes/100 WBC (Bld)9 %City HospitalMCH (RBC) [Entitic mass]22.6 pgLow27 - 34 [facility] HospitalMCHC (RBC) [Mass/Vol] 31.1 g/dLLow32 - 36 g/dLCity HospitalMCV (RBC) [Entitic vol]73 fLLow80 - 100 [facility] CenterMonocytes (Bld) [#/Vol]0.5 10*3/uLCity HospitalMonocytes/100 WBC (Bld)8 %City HospitalNeutrophils (Bld) [#/Vol]5.4 10*3/uLCity HospitalOvalocytes LM Ql (Bld)2+Abnormal NONE^[facility] CenterPlatelet mean volume (Bld) [Entitic vol]8.7 fL7 - 12 [facility] SystemPlatelets (Bld) [#/Vol]243 10*3/uLCity HospitalRBC (Bld) [#/Vol]4.37 10*6/uLFormerly [facility] Centeregmented neutrophils/100 WBC (Bld)80 %City HospitalWBC corrected for nucl RBC Auto (Bld) [#/Vol]6.7Theda[facility] SystemLIVER PANELon 53-34-0751Wibdikj [Mass/Vol]3.5 g/dLNormal3.2-5.3PChillicothe VA Medical Center Comment on above:Performed By: #### 99088-3, 2131-9, PINR, 37816-3, AHP, CMP, THYR, FEPR, CBCA, 56190-9, 45784-0, 1967-11, 2283-12, 6-4 #### [facility] ([id number]) [address], [address] [place], [place] [address]TLE [Catalytic activity/Vol]64 U/GCylqlo73-115PrtPyqkoc Toledo HospitalComment on above:Performed By: #### 00706-4, 9, PINR, 88643-8, AHP, CMP, THYR, FEPR, CBCA, 77321-3, 66199-0, 1967-11, 2283-12, 2275-4 #### [facility] ([id number]) [address] [facility], [address] [place], [place] [address]NTR [Catalytic activity/Vol]19 U/LNormal0-40Cincinnati Shriners HospitalComment on above:Performed By: #### 04825-9, 9, PINR, 65301-5, AHP, CMP, THYR, FEPR, CBCA, 85547-8, 80891-7, 1967-11, 2283-12, 6-4 #### [facility] ([id number]) [address], [address] [place], [place] [address]PEF [Catalytic activity/Vol]25 U/LNormal0-41ProOhiohealth Grove City Methodist HospitalComment on above:Performed By: #### 86612-4, 9, PINR, 79051-9, AHP, CMP, THYR, FEPR, CBCA, 69676-7, 56587-4, 1967-11, 2283-12, 2275-08 #### [facility] ([id number]) [address] [facility], [address] [place], [place] [address]Lfjekveje [Mass/Vol]0.8 mg/dLNormal0.3-1.2PChillicothe VA Medical CenterComment on above:Performed By: #### 04926-9, 2131-9, PINR, 83346-6, AHP, CMP, THYR, FEPR, CBCA, 88667-0, 53331-7, 1967-11, 2283-12, 2275- #### [facility] ([id number]) [facility], [address] [place], [place] [address]Qlhnpcfhj.direct [Mass/Vol]0.4 mg/dLNormal0.0-0.4ProOhiohealth Grove City Methodist HospitalComment on above:Performed By: #### 74262-5, 9, PINR, 68056- 9, AHP, CMP, THYR, FEPR, CBCA, 99323-4, 33550-2, 1967-11, 2283-12, 2275- #### [facility] ([id number]) [address] [place] [address], [address] [place], [place] [address]Bygmbhu [Mass/Vol]5.8 g/dLLow6.0-8.0[facility] Comment on above:Performed By: #### 21191-0, 9, PINR, 92818-8, AHP, CMP, THYR, FEPR, CBCA, 99072-9, 71249-0, 1967-11, 2283-12, 2275- #### [facility] ([id number]) [address] [place] [address], [address] [place], [place] [address]Uyrth panelon 04-20-9174Azasyvz [Mass/Vol]3.5 g/dL3.2 - 5.3 g/dL [facility] Health SystemALP [Catalytic activity/Vol]64 U/L39 - 130 U/LProMedica Mary Rutan Hospital SystemALT No additional P-5'-P [Catalytic activity/Vol]19 U/L0 - 40 U/L [facility] SystemAST [Catalytic activity/Vol]25 U/L0 - 41 U/LPrCleveland Clinic Lutheran Hospital SystemBilirubin [Mass/Vol]0.8 mg/dL0.3 - 1.2 mg/dLCity Hospital Bilirubin.direct [Mass/Vol]0.4 mg/dL0.0 - 0.4 mg/dLCity Hospital Interpretation and review of laboratory resultsAbnormalProAcmc Healthcare System Protein [Mass/Vol]5.8 g/dLLow6.0 - 8.0 g/dLGeisinger-Shamokin Area Community HospitalMR BRAIN W WO CONTon 23-63-8793PG BRAIN W WO CONTMR BRAIN W WO CONT EXAM:MR BRAIN W [...] signal within the ventral dexter which is favoredto be artifactual as a correlate is not identified on additional sequences. 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 Correlate with symptoms. Sequelae of prior right TRANSITION LEAD territory ischemia Finalized by Zac Lucia on 06/10/2024 7:38 AMNormalCincinnati Shriners HospitalMR Brain WO and W contrast Dionisio 34-28-6673JKQY:MR BRAIN W WO CONT INDICATION: Mental status [...] signal within the ventral dexter which is favoredto be artifactual as a correlate is not identified on additional sequences. 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 Correlate with symptoms. Sequelae of prior right TRANSITION LEAD territory ischemia Finalized by Zac Lucia on 06/10/2024 7:38 Zac Selby MD - 06/10/2024 EXAM:MR BRAIN W WO [...] signal within the ventral dexter which is favoredto be artifactual as a correlate is not identified on additional sequences. 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 Correlate with symptoms. Sequelae of prior right TRANSITION LEAD territory ischemia Finalized by Zac Lucia on 06/10/2024 7:38 AM SquareMR Brain WO and W contrast IVOrdered By: Zac Lucia on 94-17-2815QlcKnbtywSquare Work Phone: MR MRA HEAD WO CONTon 83-79-1835AG MRA HEAD WO CONTMR MRA HEAD WO CONT EXAM: MR MRA [...] segment possibly due to flow dynamics and sqqe-qy-uqdeds technique as there appears to be normal contrast enhancement within the V4 segment on the MRA of the neck Basilar artery: Normal. sample display preparer: The left TRANSITION LEAD is normal. Diminished flow related enhancement within the distal right TRANSITION LEAD distribution likely sequelae of prior right TRANSITION LEAD infarct. IMPRESSION: 1. Diminished flow related signal within the right TRANSITION LEAD is likely chronic and related to known rightchronic occipital infarct/encephalomalacia. 2. Diminished flow related enhancement within the proximal right vertebral artery is likely due to flow dynamics and viaw-wv-dcuvci technique is there is normal-appearing enhancement on the postcontrast MRA of the neck. 3. Otherwise, no high-grade stenosis, occlusion, or evidence of sizable aneurysm. Finalized by Zac Lucia on 06/10/2024 9:32 [facility] HospitalMR [facility] NECK W WO CONTon [id number] MRA NECK W WO CONTMR MRA NECK W WO CONT EXAM: MR [...] vertebral artery. Diminutive right vertebral artery. No high- grade stenosis. No significant soft tissue abnormalities of the neck IMPRESSION: Mild atherosclerosis of the bilateral carotid bulbs 2 views to no more than mild stenosis of the origins of the ICAs. Otherwise, no high-grade stenosis, occlusion, or evidence of acute vascular injury. Finalized by Zac Lucia on 06/10/2024 10:36 [facility] MRA Head vessels WO contraston 01-24-7050IEAU: MR MRA HEAD WO CONT INDICATION: Stroke [...] segment possibly due to flow dynamics and kpbg-oe-welrcu technique as there appears to be normal contrast enhancement within the V4 segment on the MRA of the neck Basilar artery: Normal. sample display preparer: The left TRANSITION LEAD is normal. Diminished flow related enhancement within the distal right TRANSITION LEAD distribution likely sequelae of prior right TRANSITION LEAD infarct. IMPRESSION: 1. Diminished flow related signal within the right TRANSITION LEAD is likely chronic and related to known rightchronic occipital infarct/encephalomalacia. 2. Diminished flow related enhancement within the proximal right vertebral artery is likely due to flow dynamics and xofr-kh-rqnxcl technique is there is normal-appearing enhancement on the postcontrast MRA of the neck. 3. Otherwise, no high-grade stenosis, occlusion, or evidence of sizable aneurysm. Finalized by Zac Lucia on 06/10/2024 9:32 Zac Selby MD - 06/10/2024 EXAM: MR MRA HEAD [...] segment possibly due to flow dynamics and cmfi-rt-zpyifm technique as there appears to be normal contrast enhancement within the V4 segment on the MRA of the neck Basilar artery: Normal. sample display preparer: The left TRANSITION LEAD is normal. Diminished flow related enhancement within the distal right TRANSITION LEAD distribution likely sequelae of prior right TRANSITION LEAD infarct. IMPRESSION: 1. Diminished flow related signal within the right TRANSITION LEAD is likely chronic and related to known rightchronic occipital infarct/encephalomalacia. 2. Diminished flow related enhancement within the proximal right vertebral artery is likely due to flow dynamics and ojef-gd-yvdnlr technique is there is normal-appearing enhancement on the postcontrast MRA of the neck. 3. Otherwise, no high-grade stenosis, occlusion, or evidence of sizable aneurysm. Finalized by Zac Lucia on 06/10/2024 9:32 AM [facility] SystemRadiology Study observation (narrative)City HospitalMR Neck vessels WO and W contrast Dionisio 75-24-2059PPED: MR MRA NECK W WO CONT INDICATION: [...] vertebral artery. Diminutive right vertebral artery. No high- grade stenosis. No significant soft tissue abnormalities of the neck IMPRESSION: Mild atherosclerosis of the bilateral carotid bulbs 2 views to no more than mild stenosis of the origins of the ICAs. Otherwise, no high-grade stenosis, occlusion, or evidence of acute vascular injury. Finalized by Zac Lucia on 06/10/2024 10:36 Zac Selby MD - 06/10/2024 EXAM: MR MRA NECK [...] vertebral artery. Diminutive right vertebral artery. No high- grade stenosis. No significant soft tissue abnormalities of the neck IMPRESSION: Mild atherosclerosis of the bilateral carotid bulbs 2 views to no more than mild stenosis of the origins of the ICAs. Otherwise, no high-grade stenosis, occlusion, or evidence of acute vascular injury. Finalized by Zac Lucia on 06/10/2024 10:36 AM [facility] Community HospitalNo Panel Informationon 06-10-2024 Radiology Study observation (narrative)City HospitalBASI METABOLIC PANLon 12-53-0564Crbka gap [Moles/Vol]12 mmol/LNormal5-15ProOhiohealth Grove City Methodist HospitalComment on above:Performed By: #### 86595-2, 2131-9, PINR, 33094-9, AHP, CMP, THYR, FEPR, CBCA, 66818-2, 45824-2, 1967-11, 2283-12, 2275- #### [facility] ([id number]) [address], [address] [place], [place] [address]Gloivhq [Mass/Vol]8.7 mg/dLNormal8.5-10.5PChillicothe VA Medical CenterComment on above:Performed By: #### 96416-3, 9, PINR, 23536-1, AHP, CMP, THYR, FEPR, CBCA, 67107-3, 91077-2, 1967-11, 2283-12, 2275- #### [facility] ([id number]) [address], [address] [place], [place] [address]Fufkifnl [Moles/Vol]102 mmol/DVauxbh77-807UhgQffjfj [facility]edo HospitalComment on above:Performed By: #### 84752-3, 2131-9, PINR, 96891-3, AHP, CMP, THYR, FEPR, CBCA, 50090-1, 15467-5, 1967-11, 2283-12, 2275-4 #### [facility] ([id number]) [address], [address] [place], [place] [address]ZG6 [Moles/Vol]30 mmol/WLcmqde43-53KqsUusoie [facility] Comment on above:Performed By: #### 95099-4, 2131-9, PINR, 97398-9, AHP, CMP, THYR, FEPR, CBCA, 44750-3, 62533-8, 1967-11, 2283-12, 2275- #### [facility] ([id number]) [address], [address] [place], [place] [address]Dstizfkhxi [Mass/Vol]1.32 mg/dLHigh0.60-1.30ProOhiohealth Grove City Methodist HospitalComment on above:Result Comment: METHOD TRACEABLE TO IDMS STANDARD Performed By: #### 34278-2, 9, PINR, 11684-7, AHP, CMP, THYR, FEPR, CBCA, 25821-9, 28492-2, 1967-11, 2283-12, 2275-08 #### [facility] ([id number]) [address], [address] [place], [place] [address]SAX/1.73 sq M.predicted among non-blacks MDRD (S/P/Bld) [Vol rate/Area]58 mL/min/{1.73_m2}Low>59ProOhiohealth Grove City Methodist HospitalComment on above: Result Comment: Reported eGFR is based on the CKD-EPI 2020 equation that does not use a race coefficient.Performed By: #### 80900-2, 2131-9, PINR, 13820-6, AHP, CMP, THYR, FEPR, CBCA, 10357-7, 78418-6, 1967-11, 2283-12, 2275-08 #### [facility] ([id number]) [address], [address] [place], [place] [address]Oygbetw [Mass/Vol]99 mg/xLYhmymi84-36RaeLsypvtCincinnati Shriners Hospital Comment on above:Performed By: #### 94406-2, 2131-9, PINR, 03171-4, AHP, CMP, THYR, FEPR, CBCA, 40801-8, 80851-8, 1967-11, 2283-12, 2275-08 #### [facility] ([id number]) [address] [facility], [address] [place], [place] [address]Vknuxiyzi [Moles/Vol]3.5 mmol/LNormal3.5-5.0ProOhiohealth Grove City Methodist HospitalComment on above:Performed By: #### 89805-6, 2132-01, PINR, 08715-7, AHP, CMP, THYR, FEPR, CBCA, 63633-2, 49558-4, 1967-11, 2283-12, 2275-08 #### [facility] ([id number]) [address] [facility], [address] [place], [place] [address]Tverwy [Moles/Vol]144 mmol/WXjufgc256-167WqkGqlpaw [facility]edo HospitalComment on above:Performed By: #### 98303-3, 2132-01, PINR, 19703-7, AHP, CMP, THYR, FEPR, CBCA, 24444-6, 34661-5, 1967-11, 2283-12, 2275-08 #### [facility] ([id number]) [address] [facility], [address] [place], [place] [address]Mxbu nitrogen [Mass/Vol]18 mg/dLNormal5-27ProOhiohealth Grove City Methodist HospitalComment on above:Performed By: #### 39728-5, 9, PINR, 72332-6, AHP, CMP, THYR, FEPR, CBCA, 40270-2, 71353-0, 1967-11, 2283-12, 2275-08 #### [facility] ([id number]) [address] [facility], [address] [place], [place] [address]Klpzx Metabolic Panelon 93-88-2880Rghnt gap [Moles/Vol]12 mmol/L 5 - 15 mmol/LProMedica Health SystemCalcium [Mass/Vol]8.7 mg/dL8.5 - 10.5 mg/dL ProMedica Health SystemChloride [Moles/Vol]102 mmol/L98 - 109 mmol/[facility] SystemCO2 [Moles/Vol]30 mmol/L22 - 32 mmol/[facility] System Creatinine [Mass/Vol]1.32 mg/dLHigh0.60 - 1.30 mg/dLCity Hospital Comment on above:METHOD TRACEABLE TO IDMS STANDARDeGFR (CKD-EPI)non-race jrqvyjeeh26Vek- PINUniversity of Missouri Children's HospitalComment on above: Reported eGFR is based on the CKD-EPI 2020 equation that does not use a race coefficient. Glucose [Mass/Vol]99 mg/dL65 - 99 mg/dLCity HospitalInterpretation and review of laboratory resultsAbnormalCity HospitalPotassium [Moles/Vol]3.5 mmol/L3.5 - 5.0 mmol/[facility] SystemSodium [Moles/Vol] 144 mmol/L134 - 146 mmol/[facility] SystemUrea nitrogen [Mass/Vol]18 mg/dL5 - 27 mg/dLGeisinger-Shamokin Area Community HospitalCBC AND AUTO DIFF on 21-87-1453XZUJMZNN BASOPHIL0.1 X10E9/LNormal0.0-0.2PChillicothe VA Medical Center Comment on above:Performed By: #### 65328-2, 2132-01, PINR, 10319-6, AHP, CMP, THYR, FEPR, CBCA, 80880-1, 36883-1, 1967-, 2283-, 2275- #### [facility] ([id number]) [address] [facility], [address] [place], [place] [address]FHTEFBFT NEUTROPHIL5.0 X10E9/LNormal1.5-6.6C[facility]innati Shriners HospitalComment on above:Performed By: #### 81687-7, 2132-01, PINR, 17595-7, AHP, CMP, THYR, FEPR, CBCA, 29769-1, 13447-7, 1967-, 2283-, 2275- #### [facility] ([id number]) [address] [facility], [address] [place], [place] [address]Wrlhnfpqyooc Ql (Bld)2+AbnormalNONEProMedica [facility] Comment on above:Performed By: #### 85841-0, 2131-9, PINR, 73331-4, AHP, CMP, THYR, FEPR, CBCA, 66893-2, 75116-0, 1967-7, 2283-8, 6-4 #### [facility] ([id number]) [address], [address] [place], [place] [address]Dukkcrbyt/100 WBC (Bld)0.9 %NormalCincinnati Shriners Hospital Comment on above:Performed By: #### 91619-4, 9, PINR, 51763-0, AHP, CMP, THYR, FEPR, CBCA, 64900-8, 45502-6, 1967-, 2283-, 6-4 #### [facility] ([id number]) [address], [address] [place], [place] [address]Mrrayewncpb (Bld) [#/Vol]0.1 10*3/uLNormal0.0-0.4ProOhiohealth Grove City Methodist HospitalComment on above:Performed By: #### 78443-9, 9, PINR, 71168- 9, AHP, CMP, THYR, FEPR, CBCA, 63701-9, 98132-5, 1967-11, 2283-12, 6-4 #### [facility] ([id number]) [address], [address] [place], [place] [address]Tampqiytrtr/100 WBC (Bld)1.3 %NormalCincinnati Shriners Hospital Comment on above:Performed By: #### 65107-4, 9, PINR, 43799-5, AHP, CMP, THYR, FEPR, CBCA, 70386-7, 00748-7, 1967-11, 2283-12, 6-4 #### [facility] ([id number]) [address], [address] [place], [place] [address]Eugztsfrqmb distribution width (RBC) [Ratio]24.1 %High11.5-15.0 [facility] HospitalComment on above:Performed By: #### 67360-2, 2132-01, PINR, 95986-8, AHP, CMP, THYR, FEPR, CBCA, 69950-6, 53314-8, 1967-11, 2283-12, 2275- #### [facility] ([id number]) [address], [address] [place], [place] [address]IMFQHPEX1+AbnormalNONEProMedica [facility] HospitalComment on above: Performed By: #### 29173-7, 2132-01, PINR, 31977-3, AHP, CMP, THYR, FEPR, CBCA, 90679-2, 11933-7, 1967-11, 2283-12, 2275- #### [facility] ([id number]) [address], [address] [place], [place] [address]Nojgzqznsn (Bld) [Volume fraction]40.9 %Gmzlcz79-21HhkJlvrvrOhiohealth Grove City Methodist HospitalComment on above:Performed By: #### 17061-1, 2132-01, PINR, 9, AHP, CMP, THYR, FEPR, CBCA, 12737-7, 45141-4, 1967-11, 2283-12, 2275- #### [facility] ([id number]) [address], [address] [place], [place] [address]Wxobcqdmbe (Bld) [Mass/Vol]12.6 g/dLLow13.0-17.0ProOhiohealth Grove City Methodist HospitalComment on above:Performed By: #### 89056-0, 2132-01, PINR, 38832-8, AHP, CMP, THYR, FEPR, CBCA, 56320-0, 67162-3, 1967-11, 2283-12, 2275- #### [facility] ([id number]) [address], [address] [place], [place] [address]PCKNIQNPZEF0+AbnormalNONEPChillicothe VA Medical CenterComment on above:Performed By: #### 17928-5, 9, PINR, 71069-7, AHP, CMP, THYR, FEPR, CBCA, 42980-3, 27319-2, 1967-11, 2283-12, 2275- #### [facility] ([id number]) [address], [address] [place], [place] [address]Ooqivqxztoa (Bld) [#/Vol]0.5 10*3/uLLow1.0-3.5ProMedMercy Health Defiance HospitalComment on above:Performed By: #### 89909-2, 2132-01, PINR, 65372-9, AHP, CMP, THYR, FEPR, CBCA, 80072-5, 05017-4, 1967-11, 2283-12, 2275- #### [facility] ([id number]) [address], [address] [place], [place] [address]Wbekdatnxvn/100 WBC (Bld)8.4 %NormalCincinnati Shriners Hospital Comment on above:Performed By: #### 62886-4, 2132-01, PINR, 74819-1, AHP, CMP, THYR, FEPR, CBCA, 87125-1, 52291-7, 1967-11, 2283-12, 2275- #### [facility] ([id number]) [address], [address] [place], [place] [address]WYY (RBC) [Entitic mass]22.5 tfHck88-22LuiYkynswCincinnati Shriners Hospital Comment on above:Performed By: #### 59064-2, 9, PINR, 35626-1, AHP, CMP, THYR, FEPR, CBCA, 71107-2, 32041-1, 1967-11, 2283-12, 2275- #### [facility] ([id number]) [address], [address] [place], [place] [address]MNTD (RBC) [Mass/Vol]30.7 g/pSTnj76-28HryBdvenvCincinnati Shriners Hospital Comment on above:Performed By: #### 20795-8, 2131-9, PINR, 09779-7, AHP, CMP, THYR, FEPR, CBCA, 45783-1, 76520-4, 1967-11, 2283-12, 2275- #### [facility] ([id number]) [address], [address] [place], [place] [address]FZQ (RBC) [Entitic vol]73 oSBlg67-171DxdGxquqsCincinnati Shriners Hospital Comment on above:Performed By: #### 24908-7, 2131-9, PINR, 88844-7, AHP, CMP, THYR, FEPR, CBCA, 53997-9, 60911-7, 1967-11, 2283-12, 2275- #### [facility] ([id number]) [address], [address] [place], [place] [address]Crboihwft (Bld) [#/Vol]0.4 10*3/uLNormal0-0.9Cincinnati Shriners HospitalComment on above:Performed By: #### 18390-2, 2131-9, PINR, 37503-5, AHP, CMP, THYR, FEPR, CBCA, 22436-0, 57203-6, 1967-11, 2283-12, 2275- #### [facility] ([id number]) [address], [address] [place], [place] [address]Dhnwewxeq/100 WBC (Bld)6.3 %NormalCincinnati Shriners Hospital Comment on above:Performed By: #### 64986-1, 2131-9, PINR, 82886-1, AHP, CMP, THYR, FEPR, CBCA, 05493-7, 22606-4, 1967-11, 2283-12, 2275-08 #### [facility] ([id number]) [address], [address] [place], [place] [address]Xkluoffgbsa/100 WBC (Bld)83.1 %NormalProOhiohealth Grove City Methodist Hospital Comment on above:Performed By: #### 27335-7, 2131-9, PINR, 39583-0, AHP, CMP, THYR, FEPR, CBCA, 82107-3, 95746-8, 1967-11, 2283-12, 2275-08 #### [facility] ([id number]) [address], [address] [place], [place] [address]KNZAJUDUS1+AbnormalNONEProMedica Ohiohealth Grove City Methodist HospitalComment on above:Performed By: #### 02014-7, 2131-9, PINR, 85724-9, AHP, CMP, THYR, FEPR, CBCA, 61499-7, 24844-2, 1967-11, 2283-12, 2275- #### [facility] ([id number]) [address], [address] [place], [place] [address]Fhtibqvm mean volume (Bld) [Entitic vol]8.8 fLNormal7-12 ProMedica [facility] Methodist HospitalComment on above:Performed By: #### 49668-3, 2131-9, PINR, 54154-5, AHP, CMP, THYR, FEPR, CBCA, 74236-3, 36341-5, 1967-11, 2283-12, 2275- #### [facility] ([id number]) [address], [address] [place], [place] [address]Rtdfwboya (Bld) [#/Vol]271 10*3/kZOpufgd713-147TmaZyadok [facility] Methodist HospitalComment on above:Performed By: #### 35181-6, 2131-9, PINR, 59795-6, AHP, CMP, THYR, FEPR, CBCA, 11241-2, 19723-3, 1967-11, 2283-12, 2275-08 #### [facility] ([id number]) [address] [facility], [address] [place], [place] [address]RAC COUNT5.59 X10E12/LNormal4.10-5.70[facility] Comment on above:Performed By: #### 95774-8, 2131-9, PINR, 96273-1, AHP, CMP, THYR, FEPR, CBCA, 92009-1, 17990-3, 1967-, 2283-12, 2275- #### [facility] ([id number]) [address] [facility], [address] [place], [place] [address]QXR (Bld) [#/Vol]6.0 10*3/uLNormal4.0-11.0Cincinnati Shriners HospitalComment on above:Performed By: #### 49152-1, 9, PINR, 53149-3, AHP, CMP, THYR, FEPR, CBCA, 19804-4, 79395-2, 1967-11, 2283-12, 2275-08 #### [facility] ([id number]) [address] [facility], [address] [place], [place] [address]XMR auto differentialon 28-01-5154Ltefydlakqux Ql (Bld)2+ AbnormalNONE^NONEProMedica Health SystemBasophils (Bld) [#/Vol]0.1 10*3/uL [facility] Health SystemBasophils/100 WBC (Bld)0.9 %[facility] Eosinophils (Bld) [#/Vol]0.1 10*3/uLProMedica Health SystemEosinophils/100 WBC (Bld)1.3 %ProMedica Health SystemErythrocyte distribution width (RBC) [Ratio] 24.1 %High11.5 - 15.0 %ProMedica Health SystemFragments LM Ql (Bld)1+Abnormal NONE^NONEProMedica Health SystemHematocrit (Bld) [Volume fraction]40.9 %39 - 49 %ProMedica Health SystemHemoglobin (Bld) [Mass/Vol]12.6 g/dLLow13.0 - 17.0 g/dL City HospitalHypochromia Ql (Bld)2+AbnormalNONE^[facility] CenterInterpretation and review of laboratory resultsAbnormUK HealthcareLymphocytes (Bld) [#/Vol]0.5 10*3/uLOhio State Health System Lymphocytes/100 WBC (Bld)8.4 %[facility]ruder HospitalH (RBC) [Entitic mass] 22.5 pgLow27 - 34 [facility] HospitalMCHC (RBC) [Mass/Vol]30.7 g/dLLow32 - 36 g/dLCity HospitalMCV (RBC) [Entitic vol]73 fLLow80 - 100 fL City HospitalMonocytes (Bld) [#/Vol]0.4 10*3/uLCity Hospital Monocytes/100 WBC (Bld)6.3 %City HospitalNeutrophils (Bld) [#/Vol]5 10*3/uLCity HospitalNeutrophils/100 WBC (Bld)83.1 %City HospitalOvalocytes LM Ql (Bld)2+AbnormalNONE^[facility] Hospital CenterPlatelet mean volume (Bld) [Entitic vol]8.8 fL7 - 12 [facility] CenterPlatelets (Bld) [#/Vol]271 10*3/uLCity HospitalRBC (Bld) [#/Vol]5.59 10*6/uL City HospitalWBC corrected for nucl RBC Auto (Bld) [#/Vol]6[facility] Community HospitalECG 12 leadon 31-61-3915YUAZTYZXJUVVLU City HospitalPOTASSIUMon 88-23-0923Krqevidhi [Moles/Vol]3.8 mmol/L Normal3.5-5.0C[facility] Shriners HospitalComment on above:Performed By: #### 54920- 0, 2132-9, PINR, 12257-5, AHP, CMP, THYR, FEPR, CBCA, 95608-4, 73830-2, 1967-11, 2283-12, 2275-4 #### [facility] ([id number]) [address] [facility], [address] [place], [place] [address]Wbsedjilmxp 31-82-4261Nxgyupbxt [Moles/Vol]3.8 mmol/L3.5 - 5.0 mmol/[facility] Hospital - AkronPotassium [Moles/Vol]on 68-86-3998ExuXmsmpuCity HospitalAPTHonorhealth [facility]er [facility] Center 60-61-5421jJXT Coag (PPP) [Time]38 [facility] HospitalaPTT Coag (PPP) [Time]80 [facility] HospitalBASIC METABOLIC PANLon 43-53-8721Coaic gap [Moles/Vol]13 mmol/LNormal5-15[facility] Comment on above:Performed By: #### 58597-3, 2132-01, PINR, 27939-3, AHP, CMP, THYR, FEPR, CBCA, 92653-5, 77632-5, 1967-11, 2283-12, 2275-4 #### [facility] ([id number]) [address] [facility], [address] [place], [place] [address]Cazeaza [Mass/Vol]8.3 mg/dLLow8.5-10.[address] [place] [address] Comment on above:Performed By: #### 45783-1, 2132-01, PINR, 40504-3, AHP, CMP, THYR, FEPR, CBCA, 12783-9, 80498-5, 1967-11, 2283-12, 2275-4 #### [facility] ([id number]) [address] [facility], [address] [place], [place] [address]Xoghqhin [Moles/Vol]107 mmol/DVmpflc59-936IxeHasivi Toledo HospitalComment on above:Performed By: #### 58348-4, 2132-01, PINR, 45398-3, AHP, CMP, THYR, FEPR, CBCA, 19830-5, 96603-7, 1967-11, 2283-12, 2275-08 #### [facility] ([id number]) [address], [address] [place], [place] [address]QF3 [Moles/Vol]26 mmol/KPbmzcd09-84PnjPgwmbaChillicothe VA Medical Center Comment on above:Performed By: #### 95316-0, 2131-9, PINR, 68529-9, AHP, CMP, THYR, FEPR, CBCA, 24590-6, 95982-9, 1967-11, 2283-12, 2275-08 #### [facility] ([id number]) [address], [address] [place], [place] [address]Honerlrdvm [Mass/Vol]1.58 mg/dLHigh0.60-1.30C[facility]riners HospitalComment on above:Result Comment: METHOD TRACEABLE TO IDMS STANDARD Performed By: #### 88879-4, 9, PINR, 74194-2, AHP, CMP, THYR, FEPR, CBCA, 76480-9, 26655-7, 1967-11, 2283-12, 2275-08 #### [facility] ([id number]) [address], [address] [place], [place] [address]KKG/1.73 sq M.predicted among non-blacks MDRD (S/P/Bld) [Vol rate/Area]47 mL/min/{1.73_m2}Low>59ProOhiohealth Grove City Methodist HospitalComment on above: Result Comment: Reported eGFR is based on the CKD-EPI 2020 equation that does not use a race coefficient.Performed By: #### 57920-7, 2131-9, PINR, 47631-1, AHP, CMP, THYR, FEPR, CBCA, 63155-4, 05438-5, 1967-11, 2283-12, 2275-08 #### [facility] ([id number]) [address], [address] [place], [place] [address]Mmythpg [Mass/Vol]117 mg/gCWlwi02-06CvsSrfiajOhiohealth Grove City Methodist Hospital Comment on above:Performed By: #### 64433-9, 2131-9, PINR, 92198-5, AHP, CMP, THYR, FEPR, CBCA, 79333-1, 43169-2, 1967-11, 2283-12, 2275- #### [facility] ([id number]) [address], [address] [place], [place] [address]Wkrxwhrcs [Moles/Vol]3.4 mmol/LLow3.5-5.0ProOhiohealth Grove City Methodist HospitalComment on above:Performed By: #### 23092-5, 9, PINR, 26645-1, AHP, CMP, THYR, FEPR, CBCA, , 83546-1, 1967-11, 2283-12, 2275-08 #### [facility] ([id number]) [address], [address] [place], [place] [address]Yyiajm [Moles/Vol]146 mmol/TYgcwms033-520LxyCmxapu Toledo HospitalComment on above:Performed By: #### 91865-2, 9, PINR, 70956-5, AHP, CMP, THYR, FEPR, CBCA, 60180-8, , 1967-11, 2283-12, 2275- #### [facility] ([id number]) [address], [address] [place], [place] [address]Thtm nitrogen [Mass/Vol]24 mg/dLNormal5-27ProOhiohealth Grove City Methodist HospitalComment on above:Performed By: #### 16698-3, 9, PINR, 79240-6, AHP, CMP, THYR, FEPR, CBCA, 90681-6, 19327-8, 1967-11, 2283-12, 2275- #### [facility] ([id number]) [address], [address] [place], [place] [address]Kiwyveen identified Cx Nom (U)on 60-26-3925Xjozyet comment (Unsp spec) [Interp]NO GROWTH AT <1000 CFU/mLGeisinger-Shamokin Area Community HospitalBasic Metabolic Panelon 30-21-7986Rxxjl gap [Moles/Vol]13 mmol/L5 - 15 mmol/[facility] SystemCalcium [Mass/Vol]8.3 mg/dLLow8.5 - 10.5 mg/dL ProMedicSandstone Critical Access Hospital SystemChloride [Moles/Vol]107 mmol/L98 - 109 mmol/[facility] SystemCO2 [Moles/Vol]26 mmol/L22 - 32 mmol/[facility] System Creatinine [Mass/Vol]1.58 mg/dLHigh0.60 - 1.30 mg/dLCity Hospital Comment on above:METHOD TRACEABLE TO IDIL STANDARDeGFR (CKD-EPI)non-race cpnkdkfxp17Cej[address] [place], [place] [address]Comment on above: Reported eGFR is based on the CKD-EPI 2020 equation that does not use a race coefficient. Glucose [Mass/Vol]117 mg/tNZguj72 - 99 mg/dLCity Hospital Interpretation and review of laboratory resultsAbnormalCity Hospital Potassium [Moles/Vol]3.4 mmol/LLow3.5 - 5.0 mmol/[facility] Health SystemSodium [Moles/Vol]146 mmol/L134 - 146 mmol/[facility] SystemUrea nitrogen [Mass/Vol]24 mg/dL5 - 27 mg/dLCity HospitalCT BRAIN WO CONTon 75-85-1678NS BRAIN WO CONTCT BRAIN WO CONT Nonenhanced CT of the [...] by Uriel Smith MD on 06/08/2024 8:[address] [facility] [address] BRAIN WO CONTCT BRAIN WO CONT CT OF THE HEAD WITHOUT CONTRAST INDICATION: Pain. Head trauma, moderate-severe COMPARISON: 06/07/2024 TECHNIQUE: CT was obtained of the head without contrast. FINDINGS: INTRACRANIAL: Stable configuration of the ventricles and sulci with mild to moderate volume loss. No mass effect or midline shift. Right occipital encephalomalacia/gliosis. Basal ganglial mineralization. Maintained lanier-white differentiation. Potential small lentiform fluid collections over the bifrontal regionssomewhat less conspicuous than on prior; consider MRI [...] by Zac Lewis MD on 06/08/2024 11:06 [facility] HospitalCT Head WO contraston 85-97-4258Dmnuvvzqfjf CT of the brain dated dated 06/08/2024 [...] by Uriel Smith MD on 06/08/2024 8:36 PMSECTRAUriel Dumas MD - 06/08/[address] of the [...] Uriel Smith MD on 06/08/2024 8:36 PM [facility] SystemRadiology Study observation (narrative)[facility] SystemCT OF THE HEAD WITHOUT CONTRAST INDICATION: Pain. [...] on prior; consider MRI follow-up. No convincing intracranialhemorrhage.. SOFT TISSUES and ORBITS: Orbits are unremarkable. [...] by Zac Lewis MD on 06/08/2024 11:06 Zac Rm MD - 06/08/2024 CT OF THE HEAD [...] on prior; consider MRI follow-up. No convincing intracranialhemorrhage.. SOFT TISSUES and ORBITS: Orbits are unremarkable. [...] Zac Lewis MD on 06/08/2024 11:06 AM [facility] HospitalRadiology Study observation (narrative)City HospitalCT Head WO contrastOrdered By: Uriel Smith on 55-49-4524XivLbllxpCity Hospital Work Phone: CT Head WO contrastOrdered By: Zac Lewis on 92-35-0051PlxLkkmwvCity Hospital Work Phone: HEMOGLOBINon 52-74-7017Osgztiavcf (Bld) [Mass/Vol]11.3 g/dLLow13.0-17.0C[facility]riners HospitalComment on above:Performed By: #### 84417-0, 2132-9, PINR, 95493-3, AHP, CMP, THYR, FEPR, CBCA, 80310-3, 47898-6, 1968-7, 2284-8, 2275-08 #### [facility] ([id number]) [address] [facility], [address] [place], [place] [address]ZKD A1C (GLYCO-HGB)on 49-03-9212Qgxhqfs [Mass/Vol]123 mg/dL NormalProOhiohealth Grove City Methodist HospitalComment on above:Performed By: #### 16799-2, 2132-01, PINR, 34294-8, AHP, CMP, THYR, FEPR, CBCA, , 68474-6, 1967-11, 2283-12, 2275-08 #### [facility] ([id number]) [address] [facility], [address] [place], [place] [address]NfI3c (Bld) [Mass fraction]5.9 %High4.4-5.6ProOhiohealth Grove City Methodist HospitalComment on above:Result Comment: NOTE ADA Guidelines Result HgbA1c Normal : less than 5.7 % Prediabetes : 5.7 % to 6.4 % Diabetes : > 6.4 % Use with caution in patients with abnormal hemoglobin variants as the half-life of red blood cells and in vivo glycation rates are affected.Performed By: #### 63482-2, 2132-01, PINR, 17566-7, AHP, CMP, THYR, FEPR, CBCA, 36912-4, 96892-2, 1967-11, 2283-12, 2275-08 #### [facility] ([id number]) [address] [facility], [address] [place], [place] [address]Yvaivsdvspxz 96-52-4667Ukrvcfmybc (Bld) [Mass/Vol]11.3 g/dLLow 13.0 - 17.0 g/dLCity HospitalHemoglobin (Bld) [Mass/Vol]on 06-08-2024 Interpretation and review of laboratory resultsAbnormalCity Hospital Hemoglobin A1con 23-81-9654Gzhgqkb glucose Estimated from glycated hemoglobin (Bld) [Mass/Vol]123 mg/dLCity HospitalHbA1c (Bld) [Mass fraction]5.9 % High4.4 - 5.6 %City HospitalComment on above:NOTE ADA Guidelines Result HgbA1c Normal : less than 5.7 % Prediabetes : 5.7 % to 6.4 % Diabetes : > 6.4 % Use with caution in patients with abnormal hemoglobin variants as the half-life of red blood cells and in vivo glycation rates are affected. Interpretation and review of laboratory resultsAbnormalAllegheny Valley HospitalLIVER PANELon 19-64-4850Yayvssd [Mass/Vol]2.9 g/dLLow 3.2-5.3ProMedica [facility] Methodist HospitalComment on above:Performed By: #### 20312-2, 9, PINR, 83892-9, AHP, CMP, THYR, FEPR, CBCA, 65143-0, 38234-3, 1967-11, 2283-12, 2275- #### [facility] ([id number]) [address] [place] [address], [address] [place], [place] [address]PRC [Catalytic activity/Vol]65 U/IGjhoan54-379DodZnkdmhCincinnati Shriners HospitalComment on above:Performed By: #### 00347-3, 2132-01, PINR, 54051-9, AHP, CMP, THYR, FEPR, CBCA, 17068-4, 58497-1, 1967-11, 2283-12, 2275-4 #### [facility] ([id number]) [address] [place] [address], [address] [place], [place] [address]BXM [Catalytic activity/Vol]20 U/LNormal0-40ProOhiohealth Grove City Methodist HospitalComment on above:Performed By: #### 73189-4, 9, PINR, 19717-4, AHP, CMP, THYR, FEPR, CBCA, 53009-4, 47964-4, 1967-11, 2283-12, 2275-08 #### [facility] ([id number]) [address] [facility], [address] [place], [place] [address]UKH [Catalytic activity/Vol]31 U/LNormal0-41ProOhiohealth Grove City Methodist HospitalComment on above:Performed By: #### 16402-6, 9, PINR, 37518-9, AHP, CMP, THYR, FEPR, CBCA, 33508-0, 38754-5, 1967-11, 2283-12, 2275-08 #### [facility] ([id number]) [address] [facility], [address] [place], [place] [address]Zstjbazjc [Mass/Vol]1.3 mg/dLHigh0.3-1.2ProMedMercy Health Defiance HospitalComment on above:Performed By: #### 49338-2, 9, PINR, 92507-8, AHP, CMP, THYR, FEPR, CBCA, 88886-5, 74771-2, 1967-11, 2283-12, 2275-08 #### [facility] ([id number]) [address] [facility], [address] [place], [place] [address]Xhoksijuy.direct [Mass/Vol]0.5 mg/dLHigh0.0-0.4ProOhiohealth Grove City Methodist HospitalComment on above:Performed By: #### 81258-6, 9, PINR, 67855-0, AHP, CMP, THYR, FEPR, CBCA, 26571-2, 26777-8, 1967-11, 2283-12, 2275-08 #### [facility] ([id number]) [address] [facility], [address] [place], [place] [address]Arxtuvc [Mass/Vol]5.7 g/dLLow6.0-8.0ProOhiohealth [facility] City [facility] Hospital Comment on above:Performed By: #### 98276-7, 9, PINR, 03426-3, AHP, CMP, THYR, FEPR, CBCA, , 29887-0, 1967-11, 2283-12, 2275- #### [facility] ([id number]) [address] [facility], [address] [place], [place] [address]Iyvsq 1996 panelon 96-15-1508Rypfttdoobz [Mass/Vol]135 mg/dLLow 150 - 200 mg/dLTwin City Hospital SystemCholesterol in HDL [Mass/Vol]25 mg/dLLow39 - PINF mg/dLCity HospitalComment on above: HDL <40 mg/dL - High Risk HDL > or = 40mg/dL- Desirable HDL >60 mg/dL - Negative Risk Cholesterol in LDL [Mass/Vol]96 mg/dLNINF - 130 mg/dLTwin City Hospital System Comment on above: LDL <100 mg/dL - Desirable LDL >160 mg/dL - High Risk Cholesterol in VLDL [Mass/Vol]14 mg/dL0 - 30 mg/dLTwin City Hospital System Cholesterol.total/Cholesterol in HDL [Mass ratio]5.4 {ratio}High1.0 - 5.0 City HospitalInterpretation and review of laboratory resultsAbnormal City HospitalTriglyceride [Mass/Vol]70 mg/dL27 - 150 mg/dLTwin City Hospital SystemTwin City Hospital SystemCholesterol [Mass/Vol]135 mg/dXIqv452-288 [facility]riners HospitalComment on above:Performed By: #### 83020-7, 9, PINR, 26881-6, AHP, CMP, THYR, FEPR, CBCA, 91686-0, 02630-5, 1967-11, 8, 2275- #### [facility] ([id number]) [address] [facility], [address] [place], [place] [address]Thjelpowzdd in HDL [Mass/Vol]25 mg/dLLow>39ProOhiohealth Grove City Methodist HospitalComment on above:Result Comment: HDL <40 mg/dL - High Risk HDL > or = 40mg/dL- Desirable HDL >60 mg/dL - Negative Risk Performed By: #### 01701-0, 2132-01, PINR, 40320-1, AHP, CMP, THYR, FEPR, CBCA, , , 1967-11, 2283-12, 2275-08 #### [facility] ([id number]) [address] [facility] [place], [place] [address]Oflynzfnfnu in LDL [Mass/Vol]96 mg/dLNormal<130ProOhiohealth Grove City Methodist HospitalComment on above:Result Comment: LDL <100 mg/dL - Desirable LDL >160 mg/dL - High Risk Performed By: #### 22585-2, 9, PINR, 25339-9, AHP, CMP, THYR, FEPR, CBCA, , , 1967-11, 2283-12, 2275-08 #### [facility] ([id number]) [address] [facility], [address] [place], [place] [address]Fpetbfdwmzd in VLDL [Mass/Vol]14 mg/dLNormal0-30ProCrystal Clinic Orth[facility] on above:Performed By: #### 43560-3, 9, PINR, 41864-1, AHP, CMP, THYR, FEPR, CBCA, 16577-8, 22281-2, 1967-11, 2283-12, 2275-08 #### [facility] ([id number]) [address], [address] [place], [place] [address]ZTULPMMHTGL:HDL5.4High1.0-5.0ProOhiohealth Grove City Methodist HospitalComment on above:Performed By: #### 61375-7, 2131-9, PINR, 68772-8, AHP, CMP, THYR, FEPR, CBCA, 99426-2, 37219-5, 1967-11, 8, 2275-4 #### [facility] ([id number]) [address], [address] [place], [place] [address]Ufwkqscllnsf [Mass/Vol]70 mg/eWKpaoui69-977CtpOwgkkl Toledo HospitalComment on above:Performed By: #### 81133-4, 9, PINR, 54114-0, AHP, CMP, THYR, FEPR, CBCA, 08570-4, 98324-8, 1967-11, 2283-12, 2275-08 #### [facility] ([id number]) [address], [address] [place], [place] [address]Udazy panelon 18-97-5952Eolpqbn [Mass/Vol]2.9 g/dLLow3.2 - 5.3 g/dLProMedica Health SystemALP [Catalytic activity/Vol]65 U/L39 - 130 U/L [facility] SystemALT No additional P-5'-P [Catalytic activity/Vol]20 U/L0 - 40 U/LProMedica Health SystemAST [Catalytic activity/Vol]31 U/L0 - 41 U/L [facility] SystemBilirubin [Mass/Vol]1.3 mg/dLHigh0.3 - 1.2 mg/dLProMedica Health SystemBilirubin.direct [Mass/Vol]0.5 mg/dLHigh0.0 - 0.4 mg/dLProNorth Baldwin Infirmary Health SystemInterpretation and review of laboratory resultsAbnormalProNorth Baldwin Infirmary Health SystemProtein [Mass/Vol]5.7 g/dLLow6.0 - 8.0 g/dLProHolmes County Joel [facility]ome[facility] System [facility] SystemMAGNESIUMon 45-52-3010Blnfrxpyx [Mass/Vol]2.5 mg/dLNormal 1.8-2.6C[facility] Shriners HospitalComment on above:Performed By: #### 20882-0, 2131-9, PINR, 18390-0, AHP, CMP, THYR, FEPR, CBCA, 99322-8, 47751-0, 1967-, 8, 2275- #### [facility] ([id number]) [address], [address] [place], [place] [address]Uytrdopbysl 31-35-8888Equzmeukf [Mass/Vol]2.5 mg/dL1.8 - 2.6 mg/dLCity HospitalNo Panel Informationon 50-80-0825PkvSceqvkAcmc Healthcare SystemProHolmes County Joel [facility]ome[facility] Hospital SystemPLATELET COUNT AND MPVon 49-46-6119Qjeuwehc mean volume (Bld) [Entitic vol]8.7 fLNormal7-12ProMedMercy Health Defiance HospitalComment on above:Performed By: #### 38538-5, 2131-9, PINR, 47546-6, AHP, CMP, THYR, FEPR, CBCA, 05297-4, 97932-1, 1967-11, 2283-12, 2275- #### [facility] ([id number]) [address], [address] [place], [place] [address]Vewyycgby (Bld) [#/Vol]277 10*3/oYAfwapm463-533TeoMnkkciCincinnati Shriners HospitalComment on above:Performed By: #### 22823-3, 2131-9, PINR, 51926-8, AHP, CMP, THYR, FEPR, CBCA, 26593-4, 22175-2, 1967-11, 2283-12, 2275- #### [facility] ([id number]) [address], [address] [place], [place] [address]XJNWUPKVPgf 61-10-4820Wttnbilmv [Moles/Vol]3.3 mmol/LLow3.5-5.0 [place] Shriners HospitalComment on above:Performed By: #### 30654-4, 2131-9, PINR, 48427-8, AHP, CMP, THYR, FEPR, CBCA, 41012-4, 54907-9, 1967-7, 2283-8, 6-4 #### [facility] ([id number]) [address] [place], [place] [address]GAFRFRK AND INRon 03-32-6582XTZ Coag (PPP) [Relative time]1.2 {INR}High0.8-1.1PChillicothe VA Medical CenterComment on above:Performed By: #### 08420-8, 2131-9, PINR, 10649-4, AHP, CMP, THYR, FEPR, CBCA, 09444-2, 15011-5, 1967-, 2283-12, 6-4 #### [facility] ([id number]) [address], [address] [place], [place] [address]FC Coag (PPP) [Time]13.9 sHigh9.8-13.2PChillicothe VA Medical Center Comment on above:Performed By: #### 19938-0, 2131-9, PINR, 17173-4, AHP, CMP, THYR, FEPR, CBCA, 82698-4, 51297-0, 1967-11, 2283-12, 6-4 #### [facility] ([id number]) [address], [address] [place], [place] [address]Swvgworm counton 84-92-0837Unbvgjix mean volume (Bld) [Entitic vol]8.7 fL7 - 12 [facility] SystemPlatelets (Bld) [#/Vol]277 10*3/uL City HospitalPotassiumon 28-44-3835Qcmicgvfb [Moles/Vol]3.3 mmol/LLow 3.5 - 5.0 mmol/LProMedMarion Hospital SystemPotassium [Moles/Vol]on 06-08-2024 Interpretation and review of laboratory resultsAbHospital Sisters Health System St. Nicholas HospitalProtime & INRon 72-56-7324NQU Coag (PPP) [Relative time] 1.2 {INR}CJW Medical CenterInterpretation and review of laboratory resultsAbnoUNC Health LenoirPT Coag (PPP) [Time]13.9 [facility] CenteraPTT Coag (PPP) [Time]on 06-08-2024 Interpretation and review of laboratory resultsAbnoAurora Sinai Medical Center– MilwaukeeaPTT Coag (Bld) [Time]38 [address] StreetComhills & dales general hospital on above:Performed By: #### 66794-2, 2131-9, PINR, 58031-2, AHP, CMP, THYR, FEPR, CBCA, 58777-4, 74412-0, 1967-, 2283-8, 2276-4 #### [facility] ([id number]) [address] [facility], [address] [place], [place] [address]Dzmdbwbocbwmkb and review of laboratory resultsAbDepartment of Veterans Affairs Medical Center-ErieaPTT Coag (Bld) [Time]80 [address]aff[address] StreetComhills & dales general hospital on above:Performed By: #### 15007-7, 2131-9, PINR, 76721-8, AHP, CMP, THYR, FEPR, CBCA, 03741-1, 44246-5, 1967-, 2283-8, 2276-4 #### [facility] ([id number]) [address] [facility], [address] [place], [place] [address]ZWZFK HEPATITIS PANELon 72-67-0953KTXB HCV W/PCR REFLX Non-ReactiveNoAvita Health System Galion HospitalComhills & dales general hospital on above:Result Comment: NEW TEST METHOD NOTE If recent infection suspected, recommend repeat testing (>2 months). Wqehfp-qi-rxfdyr ratio is <1.00.Performed By: #### 26910-3, 2-9, PINR, 21926- 9, AHP, CMP, THYR, FEPR, CBCA, 55006-6, 23000-0, 1967-11, 2283-12, 2275- #### [facility] ([id number]) [address] [facility], [address] [place], [place] [address]ISXSZYPUI A IGMNon-ReactiveNormalNRCTCincinnati Shriners Hospital Comment on above:Result Comment: NEW TEST METHODPerformed By: #### 94294-1, 2131-9, PINR, 18914-5, AHP, CMP, THYR, FEPR, CBCA, 59914-2, 20657-3, 1967-11, 2283-12, 2275- #### [facility] ([id number]) [address] [facility], [address] [place], [place] [address]RKKNINYMN B CORE IGMNon-ReactiveNormalNRCTCincinnati Shriners HospitalComment on above:Result Comment: NEW TEST METHODPerformed By: #### 88308-0, 2131-9, PINR, 50409-3, AHP, CMP, THYR, FEPR, CBCA, 12308-0, 74881-8, 1967-11, 2283-12, 2275- #### [facility] ([id number]) [address] [facility], [address] [place], [place] [address]BKCKSLQMQ B SURF AGNon-ReactiveNormalNRCTCincinnati Shriners HospitalComment on above:Result Comment: NEW TEST METHODPerformed By: #### 81928-5, 2131-9, PINR, 17333-1, AHP, CMP, THYR, FEPR, CBCA, 45639-6, 56567-6, 1967-11, 2283-12, 2275-08 #### [facility] ([id number]) [address] [facility], [address] [place], [place] [address]DYSQSALqu 69-15-0289Kheakyd (P) [Moles/Vol]32 umol/WKhuqev10-06 [facility] Methodist HospitalComment on above:Result Comment: NEW REFERENCE RANGE Performed By: #### 10304-4, 2-9, PINR, 39889-7, AHP, CMP, THYR, FEPR, CBCA, 35374-5, 52793-3, 1967-7, 2284-8, 2276-4 #### [facility] ([id number]) [address] [facility], [address] [place], [place] [address]TWNIlz 05-26-2352jNTI Coag (PPP) [Time]52 [facility] SystemaPTT Coag (PPP) [Time]37 sPrCleveland Clinic Lutheran Hospital SystemAmmoniaon 06-07-2024 Ammonia (P) [Moles/Vol]32 umol/L18 - 72 umol/LProMedica Mary Rutan Hospital SystemComment on above:NEW REFERENCE RANGEAmmonia (P) [Moles/Vol]on 08-85-5889RxoNgrmcsCity HospitalAnti XA unfractionated heparinon 41-65-4757Rxhvmti unfractionated Chromogenic method Qn (PPP)0.14LowCity HospitalComment on above: Optimal time for testing is 6 hrs post dosage This test is specific for monitoring patients on UFH, and is not recommended for use with other Anti-Xa medications. BILIRUBIN,DIRECTon 98-05-2231Utyftxdvi.direct [Mass/Vol]0.6 mg/dLHigh0.0-0.4 [place] [facility]riners HospitalComment on above:Performed By: #### 47833-6, 2131-9, PINR, 57957-9, AHP, CMP, THYR, FEPR, CBCA, 28036-8, 76754-3, 1967-7, 2283-8, 2276-4 #### [facility] ([id number]) [address] [facility], [address] [place], [place] [address]Colnftwky, directon 98-07-4767Jrdlzfcuo.direct [Mass/Vol]0.6 mg/dLHigh0.0 - 0.4 mg/dLCity HospitalBilirubin.direct [Mass/Vol]on 03-83-9766Mraitijqlgeddg and review of laboratory resultsAbnormalProMedica Health SystemProMedica Health SystemCBC AND AUTO DIFFon 48-51-4840DDZTNTDL BASOPHIL0.1 X10E9/LNormal0.0-0.2PChillicothe VA Medical CenterComment on above: Performed By: #### 06149-4, 2131-9, PINR, 69567-2, AHP, CMP, THYR, FEPR, CBCA, 61648-9, 72764-3, 1967-11, 2283-12, 2275- #### [facility] ([id number]) [address], [address] [place], [place] [address]TQMUQLDO NEUTROPHIL5.7 X10E9/LNormal1.5-6.6ProOhiohealth Grove City Methodist HospitalComment on above:Performed By: #### 53426-2, 9, PINR, 51947-6, AHP, CMP, THYR, FEPR, CBCA, 76125-6, 16026-8, 1967-11, 2283-12, 2275- #### [facility] ([id number]) [address] [facility], [address] [place], [place] [address]Mcoqdrtkflcw Ql (Bld)2+AbnormalNONEPChillicothe VA Medical Center Comment on above:Performed By: #### 64301-9, 9, PINR, 98579-0, AHP, CMP, THYR, FEPR, CBCA, 67475-6, 78143-0, 1967-11, 2283-12, 2275- #### [facility] ([id number]) [address], [address] [place], [place] [address]Finmwpqmm/100 WBC (Bld)1.8 %NormalCincinnati Shriners Hospital Comment on above:Performed By: #### 06091-5, 9, PINR, 25479-1, AHP, CMP, THYR, FEPR, CBCA, 68944-1, 26096-2, 1967-11, 2283-12, 2275-4 #### [facility] ([id number]) [address] [facility], [address] [place], [place] [address]Vanewpshvkb (Bld) [#/Vol]0.1 10*3/uLNormal0.0-0.4ProOhiohealth Grove City Methodist HospitalComment on above:Performed By: #### 25729-4, 9, PINR, 20858- 9, AHP, CMP, THYR, FEPR, CBCA, 08324-2, 34568-1, 1967-, 2283-12, 2275-4 #### [facility] ([id number]) [address] [facility], [address] [place], [place] [address]Phfeqsjtmex/100 WBC (Bld)1.0 %NormalProOhiohealth Grove City Methodist Hospital Comment on above:Performed By: #### 38695-0, 9, PINR, 15569-0, AHP, CMP, THYR, FEPR, CBCA, 16014-0, 77229-5, 1967-11, 2283-12, 2275-4 #### [facility] ([id number]) [address] [facility], [address] [place], [place] [address]Rpzsfqkkfqd distribution width (RBC) [Ratio]23.8 %High11.5-15.0 [facility] Methodist HospitalComment on above:Performed By: #### 35275-8, 9, PINR, 57936-0, AHP, CMP, THYR, FEPR, CBCA, 16604-2, 17178-0, 1967-11, 2283-12, 2275- #### [facility] ([id number]) [address] [facility], [address] [place], [place] [address]Tawcltysjx (Bld) [Volume fraction]35.2 %Qde65-15MsjOtdzniOhiohealth Grove City Methodist HospitalComment on above:Performed By: #### 78231-7, 9, PINR, 10688-6, AHP, CMP, THYR, FEPR, CBCA, 83071-5, 83430-7, 1967-11, 8, 2275-4 #### [facility] ([id number]) [address] [facility], [address] [place], [place] [address]Bhlvxckygt (Bld) [Mass/Vol]10.9 g/dLLow13.0-17.0[facility] HospitalComment on above:Performed By: #### 85364-7, 9, PINR, 09918-8, AHP, CMP, THYR, FEPR, CBCA, 46684-2, 66683-2, 1967-11, 2283-12, 2275- #### [facility] ([id number]) [address] [facility], [address] [place], [place] [address]HIWMWOSTPWW1+AbnormalNONEProMedMercy Health Defiance HospitalComment on above:Performed By: #### 38893-6, 2132-01, PINR, 53029-2, AHP, CMP, THYR, FEPR, CBCA, 65325-4, 22229-3, 1967-11, 8, 2275- #### [facility] ([id number]) [address] [facility], [address] [place], [place] [address]Ckcoqgbddpp (Bld) [#/Vol]0.2 10*3/uLLow1.0-3.5[facility] HospitalComment on above:Performed By: #### 63473-8, 2132-01, PINR, 56964-4, AHP, CMP, THYR, FEPR, CBCA, 38810-1, 18923-8, 1967-11, 2283-12, 2275- #### [facility] ([id number]) [address] [facility], [address] [place], [place] [address]Jmvnesocrqf/100 WBC (Bld)3.0 %NormalProOhiohealth Grove City Methodist Hospital Comment on above:Performed By: #### 19623-2, 2132-01, PINR, 60278-1, AHP, CMP, THYR, FEPR, CBCA, 54094-3, 56017-1, 1967-, 2283-8, 2276-4 #### [facility] ([id number]) [address] [facility], [address] [place], [place] [address]AYU (RBC) [Entitic mass]22.6 rmHwt32-76IbdBglmdbCincinnati Shriners Hospital Comment on above:Performed By: #### 32505-5, 9, PINR, 55535-8, AHP, CMP, THYR, FEPR, CBCA, 46091-4, 96345-0, 1967-, 2283-8, 2275-4 #### [facility] ([id number]) [address] [place] [address], [address] [place], [place] [address]PEQL (RBC) [Mass/Vol]31.1 g/gPStq37-44OxlNpwwnyCincinnati Shriners Hospital Comment on above:Performed By: #### 07749-5, 2132-01, PINR, 39564-4, AHP, CMP, THYR, FEPR, CBCA, 46193-5, 53964-0, 1967-11, 2283-12, 2275- #### [facility] ([id number]) [address] [place] [address], [address] [place], [place] [address]ZIY (RBC) [Entitic vol]73 wKMmd07-726NoyRfajztCincinnati Shriners Hospital Comment on above:Performed By: #### 72387-8, 9, PINR, 17099-6, AHP, CMP, THYR, FEPR, CBCA, 50380-1, 81386-3, 1967-11, 2283-12, 2275-4 #### [facility] ([id number]) [address] [place] [address], [address] [place], [place] [address]Xyxylojzb (Bld) [#/Vol]0.3 10*3/uLNormal0-0.9C[facility] Shriners HospitalComment on above:Performed By: #### 29072-4, 2132-9, PINR, 44582-5, AHP, CMP, THYR, FEPR, CBCA, 95625-8, 48958-0, 1967-11, 2283-12, 2275- #### [facility] ([id number]) [address], [address] [place], [place] [address]Gbsxnruft/100 WBC (Bld)5.2 %NormalCincinnati Shriners Hospital Comment on above:Performed By: #### 82466-9, 9, PINR, 87417-7, AHP, CMP, THYR, FEPR, CBCA, 37196-7, 22449-1, 1967-, 2283-12, 2275- #### [facility] ([id number]) [address], [address] [place], [place] [address]Jbcmkthxhxb/100 WBC (Bld)89.0 %NormalCincinnati Shriners Hospital Comment on above:Performed By: #### 54647-1, 9, PINR, 65247-2, AHP, CMP, THYR, FEPR, CBCA, 73021-5, 52380-0, 1967-11, 2283-12, 2275- #### [facility] ([id number]) [address], [address] [place], [place] [address]XCYIGYGLX4+AbnormalNONEProMedica Ohiohealth Grove City Methodist HospitalComment on above:Performed By: #### 36670-4, 9, PINR, 94839-8, AHP, CMP, THYR, FEPR, CBCA, 27566-7, 62387-4, 1967-11, 2283-12, 2275- #### [facility] ([id number]) [address], [address] [place], [place] [address]Auncwpzb mean volume (Bld) [Entitic vol]8.7 fLNormal7-12 [facility] HospitalComment on above:Performed By: #### 29212-4, 9, PINR, 63200-6, AHP, CMP, THYR, FEPR, CBCA, 24784-7, 86526-8, 1967-, 2283-8, 2275-4 #### [facility] ([id number]) [address], [address] [place], [place] [address]Mckyusuge (Bld) [#/Vol]259 10*3/vZKyqtcv712-759AifQihrwh Toledo HospitalComment on above:Performed By: #### 07921-1, 2131-9, PINR, 64989-5, AHP, CMP, THYR, FEPR, CBCA, 95485-5, 92775-6, 1967-, 2283-12, 2275- #### [facility] ([id number]) [address], [address] [place] [address]JTZ COUNT4.84 X10E12/LNormal4.10-5.70ProOhiohealth Grove City Methodist Hospital Comment on above:Performed By: #### 97364-1, 2131-9, PINR, 96077-3, AHP, CMP, THYR, FEPR, CBCA, 28281-4, 36459-2, 1967-11, 2283-12, 2275- #### [facility] ([id number]) [address], [address] [place], [place] [address]KAN (Bld) [#/Vol]6.4 10*3/uLNormal4.0-11.0ProOhiohealth Grove City Methodist HospitalComment on above:Performed By: #### 90161-7, 2131-9, PINR, 58706-4, AHP, CMP, THYR, FEPR, CBCA, 80791-8, 17334-3, 1967-11, 2283-12, 2275-4 #### [facility] ([id number]) [address], [address] [place], [place] [address]BDN auto differentialon 83-22-0791Fswuiudnmmis Ql (Bld)2+ AbnormalNONE^NONEProMedica Health SystemBasophils (Bld) [#/Vol]0.1 10*3/uL City HospitalBasophils/100 WBC (Bld)1.8 %[facility] Eosinophils (Bld) [#/Vol]0.1 10*3/uLCity HospitalEosinophils/100 WBC (Bld)1 %City HospitalErythrocyte distribution width (RBC) [Ratio]23.8 %High11.5 - 15.0 %City HospitalHematocrit (Bld) [Volume fraction]35.2 %Low39 - 49 %City HospitalHemoglobin (Bld) [Mass/Vol]10.9 g/dLLow13.0 - 17.0 g/dLCity HospitalHypochromia Ql (Bld)1+AbnormalNONE^NONE City HospitalInterpretation and review of laboratory resultsAbnormal City HospitalLymphocytes (Bld) [#/Vol]0.2 10*3/uLLowCity HospitalLymphocytes/100 WBC (Bld)3 %City HospitalMCH (RBC) [Entitic mass]22.6 pgLow27 - 34 pgPParkview Health Montpelier HospitalMCHC (RBC) [Mass/Vol]31.1 g/dL Low32 - 36 g/dLCity HospitalMCV (RBC) [Entitic vol]73 fLLow80 - 100 fL City HospitalMonocytes (Bld) [#/Vol]0.3 10*3/uLCity Hospital Monocytes/100 WBC (Bld)5.2 %City HospitalNeutrophils (Bld) [#/Vol]5.7 10*3/uLCity HospitalNeutrophils/100 WBC (Bld)89 %City HospitalOvalocytes LM Ql (Bld)2+AbnormalNONE^NONECity HospitalPlatelet mean volume (Bld) [Entitic vol]8.7 fL7 - 12 fLPParkview Health Montpelier HospitalPlatelets (Bld) [#/Vol]259 10*3/uLTwin City Hospital SystemRBC (Bld) [#/Vol]4.84 10*6/uL City HospitalWBC corrected for nucl RBC Auto (Bld) [#/Vol]6.4[facility] Area Community HospitalCOMPREHENSIVE METABOLIC PANELon 06-07-2024 Albumin [Mass/Vol]2.9 g/dLLow3.2-5.3ProMedMercy Health Defiance HospitalComment on above: Performed By: #### 55711-9, 2132-01, PINR, 58520-6, AHP, CMP, THYR, FEPR, CBCA, 23973-1, 74268-9, 1967-7, 2283-8, 6-4 #### [facility] ([id number]) [address] [place] [address], [address] [place], [place] [address]URJ [Catalytic activity/Vol]60 U/BYkcirt44-278ThlRwvlwa Toledo HospitalComment on above:Performed By: #### 29435-0, 2132-01, PINR, 74875-1, AHP, CMP, THYR, FEPR, CBCA, 56886-1, 52650-9, 1967-, 8, 2275-4 #### [facility] ([id number]) [address] [place] [address], [address] [place], [place] [address]KFN [Catalytic activity/Vol]21 U/LNormal0-40ProOhiohealth Grove City Methodist HospitalComment on above:Performed By: #### 28151-0, 2132-01, PINR, 11464-8, AHP, CMP, THYR, FEPR, CBCA, 70269-2, 17434-0, 1967-, 8, 2275-4 #### [facility] ([id number]) [address] [place] [address], [address] [place], [place] [address]Waaod gap [Moles/Vol]11 mmol/LNormal5-15ProOhiohealth Grove City Methodist HospitalComment on above:Performed By: #### 36496-6, 2132-01, PINR, 47733-1, AHP, CMP, THYR, FEPR, CBCA, 32550-5, 28504-9, 1967-, 2283-8, 2275-4 #### [facility] ([id number]) [address] [facility], [address] [place], [place] [address]DJF [Catalytic activity/Vol]29 U/LNormal0-41ProMediTriHealth Good Samaritan Hospital HospitalComment on above:Performed By: #### 96083-7, 2132-01, PINR, 32126-0, AHP, CMP, THYR, FEPR, CBCA, 26230-9, 49894-1, 1967-, 2283-8, 2275-4 #### [facility] ([id number]) [address] [facility], [address] [place], [place] [address]Gcodogint [Mass/Vol]1.6 mg/dLHigh0.3-1.2ProMedSelect Medical Specialty Hospital - Columbus HospitalComment on above:Performed By: #### 18612-5, 2132-01, PINR, 62495-9, AHP, CMP, THYR, FEPR, CBCA, 82586-6, 65058-3, 1967-11, 2283-12, 2275-4 #### [facility] ([id number]) [address] [facility], [address] [place], [place] [address]Gvancsn [Mass/Vol]8.6 mg/dLNormal8.5-10.5ProMedSelect Medical Specialty Hospital - Columbus HospitalComment on above:Performed By: #### 24305-9, 9, PINR, 75705-2, AHP, CMP, THYR, FEPR, CBCA, 26117-3, 73831-2, 1967-11, 2283-12, 2275-4 #### [facility] ([id number]) [address] [facility], [address] [place], [place] [address]Jfchpwrt [Moles/Vol]106 mmol/VEssmxs01-633YttAewkuk Toledo HospitalComment on above:Performed By: #### 19505-1, 2132-01, PINR, 21875-9, AHP, CMP, THYR, FEPR, CBCA, 10900-2, 98178-8, 1967-11, 8, 2275-08 #### [facility] ([id number]) [address], [address] [place], [place] [address]NK1 [Moles/Vol]27 mmol/VPfdmir24-06HaiHhbdffChillicothe VA Medical Center Comment on above:Performed By: #### 36475-9, 9, PINR, 21921-4, AHP, CMP, THYR, FEPR, CBCA, 38409-6, 26795-9, 1967-11, 2283-12, 2275-08 #### [facility] ([id number]) [address] [facility], [address] [place] [address]Osokyzjjrx [Mass/Vol]1.44 mg/dLHigh0.60-1.30ProOhiohealth Grove City Methodist HospitalComment on above:Result Comment: METHOD TRACEABLE TO IDMS STANDARD Performed By: #### 91885-8, 9, PINR, 71531-9, AHP, CMP, THYR, FEPR, CBCA, 00372-2, 24924-5, 1967-11, 2283-12, 2275-08 #### [facility] ([id number]) [address] [facility], [address] [place] [address]MQS/1.73 sq M.predicted among non-blacks MDRD (S/P/Bld) [Vol rate/Area]53 mL/min/{1.73_m2}Low>59ProOhiohealth Grove City Methodist HospitalComment on above: Result Comment: Reported eGFR is based on the CKD-EPI 2020 equation that does not use a race coefficient.Performed By: #### 73036-5, 9, PINR, 52864-8, AHP, CMP, THYR, FEPR, CBCA, 80052-9, 93812-1, 1967-11, 2283-12, 2275- #### [facility] ([id number]) [address] [facility], [address] [place], [place] [address]Jaatbee [Mass/Vol]91 mg/sNSnylvi20-72KhhWegidpCincinnati Shriners Hospital Comment on above:Performed By: #### 57303-0, 2132-01, PINR, 88806-0, AHP, CMP, THYR, FEPR, CBCA, 09490-9, 10523-7, 1967-11, 2283-12, 2275-4 #### [facility] ([id number]) [address] [facility], [address] [place], [place] [address]Smtdfdmlp [Moles/Vol]3.3 mmol/LLow3.5-5.0ProOhiohealth Grove City Methodist HospitalComment on above:Performed By: #### 00821-8, 2132-01, PINR, 74252-1, AHP, CMP, THYR, FEPR, CBCA, 57043-6, , 1967-11, 2283-12, 2275- #### [facility] ([id number]) [address] [facility], [address] [place], [place] [address]Gvofqis [Mass/Vol]5.4 g/dLLow6.0-8.0[facility] Comment on above:Performed By: #### 60128-3, 2132-01, PINR, 70227-2, AHP, CMP, THYR, FEPR, CBCA, 95562-1, 33927-3, 1967-11, 2283-12, 2275-4 #### [facility] ([id number]) [address], [address] [place], [place] [address]Ungkdu [Moles/Vol]144 mmol/VJhegdx907-179FubObzcts Toledo HospitalComment on above:Performed By: #### 02597-9, 2132-01, PINR, 73043-6, AHP, CMP, THYR, FEPR, CBCA, 79796-8, 13720-3, 1967-11, 2283-12, 2275-4 #### [facility] ([id number]) [address], [address] [place], [place] [address]Bnow nitrogen [Mass/Vol]30 mg/dLHigh5-27[facility] Methodist HospitalComment on above:Performed By: #### 32109-6, 2132-9, PINR, 60062-0, AHP, CMP, THYR, FEPR, CBCA, 73169-8, 86059-7, 1968-7, 2284-8, 2276-4 #### [facility] ([id number]) [address], [address] [place], [place] [address]RZ ABDOMEN AND PELVIS WO CONTon [id number] ABDOMEN AND PELVIS WO CONTCT ABDOMEN AND PELVIS WO CONT CLINICAL INFORMATION: [...] Frederick Crump DO on 06/07/2024 9:47 AM I, Baldev Hyde MD have personally reviewed the image(s) and agree with and/or edited the report Finalized by Baldev Hyde MD on 06/07/2024 10:07 [facility] contraston [id number] INFORMATION: Abdominal pain radiating to the back, [...] by Baldev Hyde MD on 06/07/2024 10:07 [facility], Baldev Pride MD - 06/07/2024 CLINICAL INFORMATION: Abdominal pain [...] Baldev Hyde MD on 06/07/2024 10:07 AM [facility] Study observation (narrative)SquareCT Abdomen and Pelvis WO contrastOrdered By: Baldev Hyde on 06-07-2024 [employer] Work Phone: CT BRAIN WO CONTon [phone] BRAIN WO CONTCT BRAIN WO CONT CT HEAD WITHOUT IV [...] by Gab Clay MD on 06/07/2024 10:01 [facility]2024 CT HEAD WITHOUT IV CONTRAST CLINICAL STATEMENT:Patient [...] by Gab Clay MD on 06/07/2024 10:01 PMSECTRAPACSEbGab cortez MD - 06/07/2024 CT HEAD WITHOUT IV [...] Gab Clay MD on 06/07/2024 10:01 PM [facility] SystemRadiology Study observation (narrative)City HospitalCobalamin (Vitamin B12) [Mass/Vol]on [id number] and review of laboratory resultsAbnormalThedaCare [facility] SystemComprehensive metabolic panelon 06-07-2024 Albumin [Mass/Vol]2.9 g/dLLow3.2 - 5.3 g/dLProSelect Medical Trihealth Rehabilitation Hospitalca Health SystemALP [Catalytic activity/Vol]60 U/L39 - 130 U/LProMedica Health SystemALT No additional P-5'-P [Catalytic activity/Vol]21 U/L0 - 40 U/LProMedica Health SystemAnion gap [Moles/Vol]11 mmol/L5 - 15 mmol/LProMedica Health SystemAST [Catalytic activity/Vol]29 U/L0 - 41 U/LProMedica Health SystemBilirubin [Mass/Vol]1.6 mg/dLHigh0.3 - 1.2 mg/dLSt. Albans HospitalMedica Health SystemCalcium [Mass/Vol]8.6 mg/dL8.5 - 10.5 mg/dLMorrow County Hospital Health SystemChloride [Moles/Vol]106 mmol/L98 - 109 mmol/L [facility] HospitaledicSandstone Critical Access Hospital SystemCO2 [Moles/Vol]27 mmol/L22 - 32 mmol/LProMedica Health SystemCreatinine [Mass/Vol]1.44 mg/dLHigh0.60 - 1.30 mg/dLTwin City Hospital SystemComment on above:METHOD TRACEABLE TO IDMS STANDARDeGFR (CKD-EPI)non-race [id number]- PINFProMedica Health SystemComment on above: Reported eGFR is based on the CKD-EPI 2020 equation that does not use a race coefficient. Glucose [Mass/Vol]91 mg/dL65 - 99 mg/dLProHolmes County Joel Pomerene Memorial Hospital SystemPotassium [Moles/Vol]3.3 mmol/LLow3.5 - 5.0 mmol/LProMedica Health SystemProtein [Mass/Vol]5.4 g/dLLow6.0 - 8.0 g/dLProMedial Health SystemSodium [Moles/Vol]144 mmol/L134 - 146 mmol/LPrAlvin J. Siteman Cancer Centerica Health SystemUrea nitrogen [Mass/Vol]30 mg/dL High5 - 27 mg/dLCity HospitalDRUG SCREEN, URINEon 06-07-2024 AMPHETAMINE/METHAMPNegativeNormalNEGProOhiohealth Grove City Methodist HospitalComment on above: Result Comment: AMPH/METH screening cut off = 1000 ng/mLPerformed By: #### 80304-0, 9, PINR, 56205-6, AHP, CMP, THYR, FEPR, CBCA, 76081-5, 21523-3, 1967-7, 4-8, 2276-4 #### [facility] ([id number]) [address] [place] [address], [address] [place], [place] [address]CAZKXIHZTHMJCdfalhfdIjylyvDTNJboDgyvlb Toledo HospitalComment on above:Result Comment: Barbiturates screening cut off value = 200 ng/mLPerformed By: #### 73139-8, 9, PINR, 16159-6, AHP, CMP, THYR, FEPR, CBCA, 12953-4, 80469-3, 1967-, 2283-8, 2276-4 #### [facility] ([id number]) [address] [place] [address], [address] [place], [place] [address]DTBOFYAXJTXSWBSAvfuohhkVwoecrWFFCetHduodi Toledo HospitalComment on above:Result Comment: Benzodiazepines screening cut off value = 200 ng/mL Performed By: #### 54987-4, 9, PINR, 54748-9, AHP, CMP, THYR, FEPR, CBCA, 52744-3, 86066-2, 1967-11, 2283-8, 6-4 #### [facility] ([id number]) [address], [address] [place], [place] 19140VSJGXNQLLJCMZloldnaiXzksqowkBLJOcuCbyhzh Toledo HospitalComment on above:Result Comment: Confirmation available upon request. Cannabinoids/THC screening cut off value = 50 ng/mLPerformed By: #### 50494-3, 9, PINR, 75124-0, AHP, CMP, THYR, FEPR, CBCA, 83810-2, 59860-3, 1967-, 2283-12, 2275- #### [facility] ([id number]) [address], [address] [place], [place] [address]QXEZEKY METABOLITENegativeNormalNEGCincinnati Shriners Hospital Comment on above:Result Comment: Cocaine screening cut off value = 300 ng/mL Performed By: #### 96254-1, 9, PINR, 40091-8, AHP, CMP, THYR, FEPR, CBCA, 05878-8, 84259-8, 1967-11, 2283-12, 2275- #### [facility] ([id number]) [address], [address] [place], [place] [address]NZJWZRXRphlqwghToivyeRUCTyyGqqrcp Toledo HospitalComment on above:Result Comment: Ecstasy screening cut off value = 500 ng/mL This report is intended for use in clinical monitoring or management of patients.Performed By: #### 52206-6, 2131-9, PINR, 92897-6, AHP, CMP, THYR, FEPR, CBCA, 97430-6, 50578-5, 1967-11, 2283-12, 2275- #### [facility] ([id number]) [address], [address] [place], [place] [address]OHIGYEJHREbljhudeMcuuwzNPSXkfVvxirq Bañuelos HospitalComment on above:Result Comment: Methadone screening cut off value = 300 ng/mL.Performed By: #### 01002-4, 2132-01, PINR, 00313-5, AHP, CMP, THYR, FEPR, CBCA, 35699-4, 33103-3, 1967-7, 2283-8, 2276-4 #### [facility] ([id number]) [address] [place], [place] [address]IUVKOVNTwettqvqBdmjyuNQHFhjUntpct Toledo HospitalComhills & [facility] on above:Result Comment: Opiates screening cut off value = 300 ng/mL NOTE: This test is used for the detection of codeine, hydrocodone (>1000 ng/mL), morphine and hydromorphone (>900 ng/mL) in urine.Performed By: #### 09603-5, 2132-01, PINR, 05372-8, AHP, CMP, THYR, FEPR, CBCA, 58147-3, 16252-0, 1967-, 2283-8, 6-4 #### [facility] ([id number]) [address], [address] [place], [place] [address]IAFJPFKFZUcjnyifsJlgjbjLRALyfVmylbv [facility]edo HospitalComhills & dales general hospital on above:Result Comment: Oxycodone screening cut off value = 300 ng/mL NOTE: This test is used for the detection of oxycodone and oxymorphone in urine.Performed By: #### 20146-5, 2132-01, PINR, 19236-9, AHP, CMP, THYR, FEPR, CBCA, 96103-1, 68720-3, 1967-, 2283-8, 6-4 #### [facility] ([id number]) [address] [place], [place] [address]ZQFUGLPZMJNZISqbgqzerSlhktjJVPSgeLqwqwk [facility] HospitalComhills & dales [facility] hospital on above:Result Comment: Phencyclidine screening cut off value = 25 ng/mL Performed By: #### 30986-2, 2132-9, PINR, 48349-4, AHP, CMP, THYR, FEPR, CBCA, 23696-9, 89565-8, 1968-7, 2284-8, 2276-4 #### [facility] ([id number]) [address] [place] [address], [address] [place], [place] [address]Lmyk Screen, Urineon 67-42-7648Vhdcfnmafpjq Screen method >1000 ng/mL Ql (U)NegativeNegative^NegativeProMedica Health SystemComment on above: AMPH/METH screening cut off = 1000 ng/mLBarbiturates Screen Ql (U)Negative Negative^NegativeProMedica Health SystemComment on above:Barbiturates screening cut off value = 200 ng/mLBenzodiazepines Ql (U)NegativeNegative^Negative [facility] Health SystemComment on above:Benzodiazepines screening cut off value = 200 ng/mLCocaine Ql (U)NegativeNegative^NegativeProMedica Health SystemComment on above:Cocaine screening cut off value = 300 ng/mLInterpretation and review of laboratory resultsAbnormalProMedica Health SystemMethadone Screen Ql (U) NegativeNegative^NegativeProMedica Health SystemComment on above:Methadone screening cut off value = 300 ng/mL.Methylenedioxymethamphetamine Screen Ql (U) NegativeNegative^NegativeProMedica Health SystemComment on above:Ecstasy screening cut off value = 500 ng/mL This report is intended for use in clinical monitoring or management of patients. Opiates Screen Ql (U)NegativeNegative^NegativeProMedica Health SystemComment on above:Opiates screening cut off value = 300 ng/mL NOTE: This test is used for the detection of codeine, hydrocodone (>1000 ng/mL), morphine and hydromorphone (>900 ng/mL) in urine. oxyCODONE Ql (U)NegativeNegative^NegativeProMedica Health SystemComment on above:Oxycodone screening cut off value = 300 ng/mL NOTE: This test is used for the detection of oxycodone and oxymorphone in urine. Phencyclidine Screen method >25 ng/mL Ql (U)NegativeNegative^NegativeProMedica Health SystemComment on above:Phencyclidine screening cut off value = 25 ng/mL Tetrahydrocannabinol Screen method >50 ng/mL Ql (U)PositiveAbnormal Negative^NegativeCity HospitalComment on above:Confirmation available upon request. Cannabinoids/THC screening cut off value = 50 ng/mL City HospitalEEGon 89-19-9320Yvgwkz from the original result were not included. [...] or primary neurological disorders. Bertha Oakley MD Toll Ticket Clerk Neurology/Neurophysiology [place] [facility] MANUALLY TRANSCRIBED RESULTSEEGOrdered By: Bertha Oakley on 38-20-9338UpuAnzpwbCity Hospital Work Phone: FERRITINon 59-29-5459Awgtfpwo [Mass/Vol]41 ng/mLNormal 24-336ProOhiohealth Grove City Methodist HospitalComment on above:Performed By: #### 77969-7, 2132-9, PINR, 39960-6, AHP, CMP, THYR, FEPR, CBCA, 17308-1, 32640-0, 1968-7, 2284-8, 2276-4 #### [facility] ([id number]) [address], [address] [place], [place] [address]Lewcpbtjob 08-07-1303Hyrbyktq [Mass/Vol]41 ng/mL24 - 336 ng/mL City HospitalFerritin [Mass/Vol]on 12-90-4233TzxLkeehfCity Hospital Folateon 59-00-0076Bxjmgp [Mass/Vol]22.7 ng/mL5.8 - PINF ng/mLCity HospitalComment on above:NEW REFERENCE RANGEFolate [Mass/Vol]on 06-07-2024 City HospitalFOLIC ACID22.7 ng/mLNormal>5.8[facility] Comment on above:Result Comment: NEW REFERENCE RANGEPerformed By: #### 91820-3, 2131-9, PINR, 93092-8, AHP, CMP, THYR, FEPR, CBCA, 91438-6, 06333-2, 1967-, 2283-, 2275- #### [facility] ([id number]) [address] [place] [address], [address] [place], [place] [address]Lbsliec Glucometer (BldC) [Mass/Vol]on 02-65-5201Vzhaozi [Mass/Vol]86 mg/dL65 - 99 mg/dLGeisinger-Shamokin Area Community Hospital Glucose [Mass/Vol]86 mg/mURfxivt77-87SrkFvfymnCincinnati Shriners HospitalHeparin unfractionated Chromogenic method Qn (PPP)on 64-65-6938Apcjqtbjlrqjwg and review of laboratory resultsAbnormChester County HospitalANTI XA UFH0.14 IU/mLLow0.30-0.70C[facility]riners HospitalComment on above:Result Comment: Optimal time for testing is 6 hrs post dosage This test is specific for monitoring patients on UFH, and is not recommended for use with other Anti-Xa medications.Performed By: #### 13701-0, 2-9, PINR, 50280-7, AHP, CMP, THYR, FEPR, CBCA, 75111-0, 71911-2, 1967-11, 2283-12, 2275- #### [facility] ([id number]) [address] [place] [address], [address] [place], [place] [address]Acogrskuf panel, acuteon 13-50-7541GOF IgM IA QlNon-Reactive Non-Reactive^Non-ReactiveCity HospitalComment on above:NEW TEST METHOD HBV core IgM IA LuJmh-PgyfteogUaz-Lurljuck^Non-ReactiveCity Hospital Comment on above:NEW TEST METHODHBV surface Ag IA QlNon-Reactive Non-Reactive^Non-ReactiveCity HospitalComment on above:NEW TEST METHOD HCV Ab IA XxYkp-ZbigmegxWpr-Lhxryemp^Non-ReactiveCity HospitalComment on above:NEW TEST METHOD NOTE If recent infection suspected, recommend repeat testing (>2 months). Raolms-bz-shjvod ratio is <1.00. City HospitalIRON PROFILEon 04-48-3921Gyrc [Mass/Vol]16 ug/yWTfi98-514 [facility]riners HospitalComment on above:Performed By: #### 42740-8, 2132-01, PINR, 00178-2, AHP, CMP, THYR, FEPR, CBCA, 71438-9, 82590-6, 1967-11, 2283-12, 2275- #### [facility] ([id number]) [address], [address] [place], [place] [address]VAYE BKNEEXH961 ug/rPUzuefx640-348VbmPerupdCincinnati Shriners Hospital Comment on above:Performed By: #### 00277-6, 2132-01, PINR, 49842-8, AHP, CMP, THYR, FEPR, CBCA, 02673-2, 31384-6, 1967-11, 2283-12, 2275- #### [facility] ([id number]) [address], [address] [place], [place] [address]HSRV SATURATION5 % HDHKYBGWRAPmy48-97YkzYoahxy [facility] Comment on above:Performed By: #### 82530-6, 2132-01, PINR, 94310-9, AHP, CMP, THYR, FEPR, CBCA, 92662-6, 92760-0, 1967-11, 2283-12, 2275-4 #### [facility] ([id number]) [address], [address] [place], [place] [address]Liav and TIBCon 45-32-7400Jovlexqixatwnr and review of laboratory resultsAbnormalProHolmes County Joel Pomerene Memorial Hospital SystemIron [Mass/Vol]16 ug/dLLow50 - 212 ug/dLProHolmes County Joel Pomerene Memorial Hospital SystemIron binding capacity [Mass/Vol]336 ug/dL250 - 425 ug/dLProCleveland Clinic Mercy Hospitaln saturation [Mass fraction]5LowProAcmc Healthcare SystemProHolmes County Joel Pomerene Memorial Hospital SystemMAGNESIUMon 86-37-4839Vpnzmsrzg [Mass/Vol] 2.7 mg/dLHigh1.8-2.6[facility]riners HospitalComment on above:Performed By: #### 48846-0, 9, PINR, 81161-3, AHP, CMP, THYR, FEPR, CBCA, 88319-5, 34874-9, 1967-7, 4-8, 2276-4 #### [facility] ([id number]) [address], [address] [place], [place] [address]Kdevmcsqg [Mass/Vol]1.5 mg/dLLow1.8-2.6[facility] Comment on above:Performed By: #### 29014-6, 9, PINR, 09354-1, AHP, CMP, THYR, FEPR, CBCA, 84723-4, 58327-2, 1967-, 2283-8, 2276-4 #### [facility] ([id number]) [address], [address] [place], [place] [address]ZB MRCP WITH MRI ABD WO CONTon 41-45-2598AI MRCP WITH MRI ABD WO CONTMR MRCP WITH MRI ABD WO CONT History: [...] by Gab Clay MD on 06/07/2024 8:32 [facility] Abdomen WO contraston 06-07-2024 History: Recent with history of jaundice. [...] by Gab Clay MD on 06/07/2024 8:32 PMSECTRAPACSGab cortez MD - 06/07/2024 History: Recent with history [...] Gab Clay MD on 06/07/2024 8:32 PM [facility] CenterXCOR Aerospace Beaumont HospitalRadiology Study observation (narrative)City HospitalMRCP Abdomen WO contrastOrdered By: Gab Clay on 20-68-5221LaiYdsirs Health System Work Phone: Magnesiumon 53-73-2467Quzvqvmqs [Mass/Vol]2.7 mg/dL High1.8 - 2.6 mg/dLCincinnati Shriners HospitalYueqing [employer] Beaumont HospitalMagnesium [Mass/Vol]1.5 mg/dLLow1.8 - 2.6 mg/dLProAcmc Healthcare SystemNo Panel Informationon 23-10-6164Gpgfgqgiqpegsg and review of laboratory resultsAbnormalThedaCare Regional Medical Center–Appleton SystemInterpretation and review of laboratory resultsAbnormUK HealthcareProACMH HospitalPOTASSIUMon 06-07-2024 Potassium [Moles/Vol]3.2 mmol/LLow3.5-5.0[facility]riners HospitalComment on above:Performed By: #### 81933-7, 2131-9, PINR, 84408-5, AHP, CMP, THYR, FEPR, CBCA, 91817-1, 57118-0, 1967-11, 2283-12, 2275- #### [facility] ([id number]) [address] [place], [place] [address]KSABCPV AND INRon 61-62-6483GHR Coag (PPP) [Relative time]1.3 {INR}High0.8-1.1PChillicothe VA Medical CenterComment on above:Performed By: #### 98839-5, 2131-9, PINR, 43270-9, AHP, CMP, THYR, FEPR, CBCA, 74812-3, 55617-0, 1967-11, 2283-12, 2275- #### [facility] ([id number]) [address], [address] [place], [place] [address]ZD Coag (PPP) [Time]15.5 sHigh9.8-13.2PChillicothe VA Medical Center Comment on above:Performed By: #### 62231-2, 2131-9, PINR, 64475-3, AHP, CMP, THYR, FEPR, CBCA, 91181-7, 91126-0, 1967-11, 2283-12, 2275-4 #### [facility] ([id number]) [address], [address] [place], [place] [address]Apqfovlaerh 51-22-3522Uvsumivky [Moles/Vol]3.2 mmol/LLow3.5 - 5.0 mmol/LProMedica Beaumont HospitalProcalcitoninon 86-90-6209Svzisvgkaasmn IA [Mass/Vol]0.27 ng/mLHighNINF - 0.05 ng/mLCity HospitalComment on above:NOTE <0.50 ng/mL - Low risk of severe sepsis and/or septic shock. <2.00 ng/mL - Recommend retesting within 6-24 hours. >2.00 ng/mL - High risk of sepsis and/or septic shock. Procalcitonin IA [Mass/Vol]on 91-13-7682Ongztmzxrobccd and review of laboratory resultsAbnormalCity HospitalProAcmc Healthcare SystemPROCALCITONIN0.27 ng/mLHigh<0.05[facility] HospitalComment on above:Result Comment: NOTE <0.50 ng/mL - Low risk of severe sepsis and/or septic shock. <2.00 ng/mL - Recommend retesting within 6-24 hours. >2.00 ng/mL - High risk of sepsis and/or septic shock.Performed By: #### 96861- 0, 2132-9, PINR, 49431-0, AHP, CMP, THYR, FEPR, CBCA, 48250-3, 53926-4, 1968-7, 2284-8, 2276-4 #### [facility] ([id number]) [address], [address] [place], [place] [address]Gjjoehf & INRon 98-56-7187UXL Coag (PPP) [Relative time]1.3 {INR}HighCity HospitalInterpretation and review of laboratory results AbnormalCity HospitalPT Coag (PPP) [Time]15.5 [facility] HospitalTHYROID PROFILEon 87-53-7828Aiee T4 [Mass/Vol]1.08 ng/dLNormal0.61-1.60 Pomerene HospitaledicMary Rutan HospitalComment on above:Performed By: #### 35403-6, 2132-9, PINR, 68211-6, AHP, CMP, THYR, FEPR, CBCA, 03923-0, 26512-7, 1967-, 2283-8, 6-4 #### [facility] ([id number]) [address] [place] [address], [address] [place], [place] [address]VZA1.40 uIU/mLNormal0.49-4.67ProMedica Rockford HospitalComment on above:Performed By: #### 65855-8, 9, PINR, 93607-9, AHP, CMP, THYR, FEPR, CBCA, 20490-9, 48316-7, 1967-, 2283-, 6-4 #### [facility] ([id number]) [address] [place] [address], [address] [place], [place] [address]Ohwqofm profile includes TSH FT4on 36-52-2282Stzx T4 [Mass/Vol] 1.08 ng/dL0.61 - 1.60 ng/dLNovant Health, [facility] Qn2.4 m[IU]/LProMedGrand Lake Joint Township District Memorial HospitalProAcmc Healthcare SystemURINALYSISon 43-23-5124Ivwblrclo Ql (U) NegativeNormalNEGProMadison Health HospitalComment on above:Performed By: #### 19930-2, 9, PINR, 21439-6, AHP, CMP, THYR, FEPR, CBCA, 86952-4, 91669-3, 1967-, 2283-8, 6-4 #### [facility] ([id number]) [address] [place] [address], [address] [place], [place] [address]EROFR/HGBLargeAbnormalNEGProMadison Health HospitalComment on above:Performed By: #### 38321-3, 9, PINR, 76970-4, AHP, CMP, THYR, FEPR, CBCA, 36787-1, 44619-0, 1967-11, 2283-8, 2276-4 #### [facility] ([id number]) [address] [place] [address], [address] [place], [place] [address]Nwjvb (U)YELLOWNormalYELLOWProMedica Ohiohealth Grove City Methodist HospitalComment on above:Performed By: #### 16737-8, 2131-9, PINR, 54617-4, AHP, CMP, THYR, FEPR, CBCA, 00822-8, 95631-1, 1967-11, 8, 2275-4 #### [facility] ([id number]) [address], [address] [place], [place] [address]Hdlzltd Ql (U)NegativeNormalNEGProMedica Rockford HospitalComment on above:Performed By: #### 29123-3, 2131-9, PINR, 59616-3, AHP, CMP, THYR, FEPR, CBCA, 93547-3, 74948-1, 1967-11, 2283-12, 2275- #### [facility] ([id number]) [address] [address], [address] [place], [place] [address]Rwupgek Ql (U)TraceAbnormalNEGProMadison Health HospitalComment on above:Performed By: #### 83730-7, 2131-9, PINR, 92134-2, AHP, CMP, THYR, FEPR, CBCA, 76170-8, 99373-6, 1967-11, 2283-12, 2275- #### [facility] ([id number]) [address] [address], [address] [place], [place] [address]Kmudmutku esterase Test strip Ql (U)NegativeNormalNEGProSelect Medical Trihealth Rehabilitation Hospitalca Rockford HospitalComment on above:Performed By: #### 88617-7, 2131-9, PINR, 63269- 9, AHP, CMP, THYR, FEPR, CBCA, 44229-7, 01707-9, 1967-11, 2283-12, 2275-4 #### [facility] ([id number]) [address], [address] [place], [place] [address]IRHNMFANFQZMEEurbppxtVVDKTtlTehalm [facility] Methodist HospitalComment on above:Performed By: #### 09291-2, 9, PINR, 28317-7, AHP, CMP, THYR, FEPR, CBCA, 31062-0, 02196-9, 1967-11, 2283-12, 2275-08 #### [facility] ([id number]) [address], [address] [place], [place] [address]Bfljobo Ql (U)NegativeNormalNEGProOhiohealth Grove City Methodist HospitalComment on above:Performed By: #### 76343-4, 9, PINR, 54643-4, AHP, CMP, THYR, FEPR, CBCA, 44218-2, 30213-7, 1967-11, 2283-12, 2275- #### [facility] ([id number]) [address], [address] [place], [place] [address]wZ (U)6.5 [pH]Normal5.0-8.5PChillicothe VA Medical CenterComment on above:Performed By: #### 31719-7, 2132-01, PINR, 13265-0, AHP, CMP, THYR, FEPR, CBCA, 01166-6, 97806-7, 1967-11, 2283-12, 2275-08 #### [facility] ([id number]) [address], [address] [place], [place] [address]Ihynnri Ql (U)30 mg/dLAbnormalNEGProOhiohealth Grove City Methodist Hospital Comment on above:Performed By: #### 33116-4, 9, PINR, 04487-8, AHP, CMP, THYR, FEPR, CBCA, 54418-3, 85389-5, 1967-11, 2283-12, 2275-08 #### [facility] ([id number]) [address], [address] [place], [place] [address]X.B.TEOOE040 /hpfHigh0-5PChillicothe VA Medical CenterComment on above:Performed By: #### 26974-7, 2132-9, PINR, 63401-6, AHP, CMP, THYR, FEPR, CBCA, 50909-9, 64014-6, 1967-11, 2283-12, 2275- #### [facility] ([id number]) [address], [address] [place], [place] [address]Ffktdftc gravity (U) [Rel density]1.670Jbzkie6.003-1.035 [facility] Methodist HospitalComhills & dales general hospital on above:Performed By: #### 23870-6, 9, PINR, 34349-0, AHP, CMP, THYR, FEPR, CBCA, 23527-2, 84431-2, 1967-11, 2283-12, 2275-08 #### [facility] ([id number]) [address] [address], [address] [place], [place] [address]RDZJPWEEJCFZBLIqsngtIOINPVfzPtcmoe [facility] Methodist HospitalComment on above:Performed By: #### 03702-7, 2132-01, PINR, 36270-1, AHP, CMP, THYR, FEPR, CBCA, 94772-1, 96114-6, 1967-11, 2283-12, 2275-08 #### [facility] ([id number]) [address], [address] [place], [place] [address]Vjstiuqknjet (U) [Mass/Vol]mg/dLNormal<1.1PChillicothe VA Medical CenterComhills & dales general hospital on above:Performed By: #### 11785-9, 9, PINR, 62579-5, AHP, CMP, THYR, FEPR, CBCA, 72528-1, 59409-3, 1967-11, 2283-12, 2275-08 #### [facility] ([id number]) [address], [address] [place], [place] [address]Q.B.CELLS2 /hpfNormal0-5PChillicothe VA Medical CenterComhills & dales general hospital on above:Performed By: #### 71725-9, 2132-9, PINR, 80820-1, AHP, CMP, THYR, FEPR, CBCA, 67149-4, 90094-3, 1967-11, 8, 2275- #### [facility] ([id number]) [address], [address] [place], [place] [address]LFWRQ CULTUREon 25-63-8117Kvbhpwww identified Cx Nom (U)CULTURE RESULTS NO GROWTH AT <1000 CFU/mLNormalCincinnati Shriners HospitalComment on above: Performed By: #### 43536-0, 9, PINR, 08012-4, AHP, CMP, THYR, FEPR, CBCA, 62071-9, 49461-9, 1967-11, 2283-12, 2275-08 #### [facility] ([id number]) [address], [address] [place], [place] [address]Adgrwadchmen 94-54-2290Oieytiwyb Ql (U)NegativeNegative^Negative [facility] Hospitaledica Health SystemColor (U)YELLOWYELLOW^YELLOWMorrow County Hospital Health System Glucose (U) [Mass/Vol]NegativeNegative^Negative mg/dLTwin City Hospital System Hemoglobin Auto test strip Ql (U)LargeAbnormalNegative^NegativeCincinnati Shriners Hospitalca Health SystemInterpretation and review of laboratory resultsAbnormalMorrow County Hospital Health SystemKetones (U) [Mass/Vol]TraceAbnormalNegative^Negative mg/dLTwin City Hospital SystemLeukocyte esterase Auto test strip Ql (U)NegativeNegative^Negative [facility] Health SystemMucus Ql (Urine sed)PRESENTAbnormalNONE^NONEMorrow County Hospital Health SystemNitrite Auto test strip Ql (U)NegativeNegative^NegativeSt. Albans HospitalMedica Health SystempH (U)6.5 [pH]5.0 - 8.5PChristus Highland Medical Center Health SystemProtein (U) [Mass/Vol]30 mg/dLAbnormalNegative^NegativeTwin City Hospital SystemRBC Auto (Urine sed) [#/Area]158HighMorrow County Hospital Health SystemSpecific gravity Refractometry automated (U) [Rel density]1.0111.003 - 1.035City HospitalTurbidity Ql (U)CLEARCLEAR^CLEARCity HospitalUrobilinogen Qn (U)NINUniversity of Missouri Children's HospitalWBC Auto (Urine sed) [#/Area]2PChestnut Hill HospitalVITAMIN B12on 54-76-7858Sxklxvovt (Vitamin B12) [Mass/Vol]pg/mLHigh 180-914PChillicothe VA Medical CenterComment on above:Performed By: #### 41391-8, 2131-9, PINR, 22522-8, AHP, CMP, THYR, FEPR, CBCA, 81466-4, 16924-7, 1967-, 2283-12, 2275-08 #### [facility] ([id number]) [address] [facility], [address] [place], [place] [address]Nolfkki B12on 90-57-5993Ijthnhyez (Vitamin B12) [Mass/Vol]pg/mL Ebep592 - 914 pg/mLCity HospitalaPTT Coag (PPP) [Time]on 06-07-2024 Interpretation and review of laboratory resultsAbnormalCity Hospital ProMCleveland Clinic Ak[facility] General Lodi HospitalaPTT Coag (Bld) [Time]52 yEaeu29-40YpsEscgfuCincinnati Shriners HospitalComment on above:Performed By: #### 66017-4, 9, PINR, 99754-1, AHP, CMP, THYR, FEPR, CBCA, 17035-9, 11001-8, 1967-11, 2283-12, 2275-08 #### [facility] ([id number]) [address], [address] [place], [place] [address]vAFQ Coag (Bld) [Time]37 mAslapu77-53FbjNwcqofCincinnati Shriners Hospital Comment on above:Performed By: #### 31031-8, 2131-9, PINR, 96661-3, AHP, CMP, THYR, FEPR, CBCA, 57515-7, 27487-3, 1967-11, 2283-12, 2275- #### [facility] ([id number]) [address] [place], [place] [address]SY EXT VENOUS REFLUX MAUDE LMTDon [id number] [address] Vein Report Signed Patient: JOHNATHAN RODNEY MR#: [id number] : 1955 Acct:[id number] Age/Sex: 67 / M ADM Date: 07/13/23 Loc: [facility] Attending Dr: Shaikh Larry Thompson Ordering Physician: Shaikh Jay Juarez Date of Service: 07/13/23 Procedure(s): VC EXT Venous Reflux MAUDE LMTD Accession Number(s): [id number] cc: Shaikh Jay Juarez Patient Name: JOHNATHAN RODNEY MR#: [id number] : 1955 Exam Date: 07/13/2023 Ordering Doctor: SHAIKH Ember Trinidad RADIOLOGY REPORT PROCEDURE: VC EXT VENOUS REFLUX MAUDE LMTD COMPARISON: None. INDICATIONS: I87.2 Chronic insufficiency of lower extremity TECHNIQUE: Duplex imaging of the lower extremity to assess the deep and superficial venous system for the presence of deep or superficial venous incompetence and to document the location and severity of disease. The study includes evaluation of the great saphenous vein (GSV), anterior accessory saphenous vein (AASV) and small saphenous vein (SSV). Patient scanned in reverse Trendelenburg and standing. FINDINGS: RIGHT LOWER EXTREMITY: Saphenofemoral Junction Reflux: Yes 7.3mm 0.5 sec GSV: Diam (mm) Reflux/ Time (sec) Proximal Thigh 2.9 No Mid Thigh 1.7 No Distal Thigh 1.7 No Prox Calf 1.9 No Mid Calf 1.1 No Saphenopopliteal Junction Reflux: 1.6mm No SSV: Proximal Calf 1.5 No Mid Calf 1.2 No AASV: Not present Proximal Thigh Mid Thigh Distal Thigh Thrombi: No acute or chronic thrombus Compressibility: Normal Flow: Normal Preforator: Mid/med calf 2.1mm with 0.4s reflux. Tech Note: Significant plaque visualized in PTV. No varicose veins visualized. LEFT LOWER EXTREMITY: Saphenofemoral Junction Reflux: No 3.7 mm sec GSV: Diam (mm) Reflux/Time (sec) Proximal Thigh 1.9 No Mid Thigh 1.7 No Distal Thigh 2.0 No Prox Calf 2.0 No Mid Calf 1.6 No Saphenopopliteal Junction Relux: 2.1 mm No SSV: Proximal Calf N/A Mid Calf N/A AASV: Not present Proximal Thigh Mid Thigh Distal Thigh Thrombi: Thrombus visualized throughout SSV. Compressibility: Normal Flow: Normal Master Ship: No perforators visualized. Tech Note: Thrombus visualized in SSV. No patent varicose veins visualized. CONCLUSION: 1. No appreciable abnormal vein dilation or reflux within the lower extremities. Dictated by: Brett Grier M.D. on 07/13/2023 at 14:12 Approved by: Brett Grier M.D. on 07/13/2023 at 14:28 Dictated By: Brett Grier M.D. Signed By: 07/13/23 1430 DD/ 1429 TD/TT: Powder Hand:TBHRadiology, Radiologist, MD - 07/13/2023 [place] [address] Vein Report Signed Patient: JOHNATHAN RODNEY MR#: [id number] : 1955 Acct:[id number] Age/Sex: 67 / M ADM Date: 07/13/23 Loc: VC Attending Dr: Shaikh Larry Thompson Ordering Physician: Shaikh Jay Juarez Date of Service: 07/13/23 Procedure(s): VC EXT Venous Reflux MAUDE LMTD Accession Number(s): [id number] cc: Shaikh Jay Juarez Patient Name: JOHNATHAN RODNEY MR#: [id number] : 1955 Exam Date: 07/13/2023 Ordering Doctor: SHAIKH Ember Trinidad RADIOLOGY REPORT PROCEDURE: VC EXT VENOUS REFLUX MAUDE LMTD COMPARISON: None. INDICATIONS: I87.2 Chronic insufficiency of lower extremity TECHNIQUE: Duplex imaging of the lower extremity to assess the deep and superficial venous system for the presence of deep or superficial venous incompetence and to document the location and severity of disease. The study includes evaluation of the great saphenous vein (GSV), anterior accessory saphenous vein (AASV) and small saphenous vein (SSV). Patient scanned in reverse Trendelenburg and standing. FINDINGS: RIGHT LOWER EXTREMITY: Saphenofemoral Junction Reflux: Yes 7.3mm 0.5 sec GSV: Diam (mm) Reflux/ Time (sec) Proximal Thigh 2.9 No Mid Thigh 1.7 No Distal Thigh 1.7 No Prox Calf 1.9 No Mid Calf 1.1 No Saphenopopliteal Junction Reflux: 1.6mm No SSV: Proximal Calf 1.5 No Mid Calf 1.2 No AASV: Not present Proximal Thigh Mid Thigh Distal Thigh Thrombi: No acute or chronic thrombus Compressibility: Normal Flow: Normal Preforator: Mid/med calf 2.1mm with 0.4s reflux. Tech Note: Significant plaque visualized in PTV. No varicose veins visualized. LEFT LOWER EXTREMITY: Saphenofemoral Junction Reflux: No 3.7 mm sec GSV: Diam (mm) Reflux/Time (sec) Proximal Thigh 1.9 No Mid Thigh 1.7 No Distal Thigh 2.0 No Prox Calf 2.0 No Mid Calf 1.6 No Saphenopopliteal Junction Relux: 2.1 mm No SSV: Proximal Calf N/A Mid Calf N/A AASV: Not present Proximal Thigh Mid Thigh Distal Thigh Thrombi: Thrombus visualized throughout SSV. Compressibility: Normal Flow: Normal Master Ship: No perforators visualized. Tech Note: Thrombus visualized in SSV. No patent varicose veins visualized. CONCLUSION: 1. No appreciable abnormal vein dilation or reflux within the lower extremities. Dictated by: Brett Grier M.D. on 07/13/2023 at 14:12 Approved by: Brett Grier M.D. on 07/13/2023 at 14:28 Dictated By: Brett Grier M.D. Signed By: 07/13/23 1430 DD/ 1429 TD/TT: Powder Hand: [facility] observation (narrative)[facility]ansonVC EXT VENOUS REFLUX MAUDE LMTDOrdered By: Radiologist Radiology on [id number] Branson Work Phone: [facility] [phone] [address] Vein Report Signed Patient: JOHNATHAN RODNEY MR#: [id number] : 1955 Acct:[id number] Age/Sex: 67 / M ADM Date: 07/13/23 Loc: Attending Dr: Shaikh Larry Thompson Ordering Physician: Shaikh Jay Juarez Date of Service: 07/13/23 Procedure(s): [place] Accession Number(s): [id number] cc: Shaikh Jay Juarez Patient Name: JOHNATHAN RODNEY MR#: [id number] : 1955 Exam Date: 07/13/2023 Ordering Doctor: SHAIKH Ember JUAREZ . RADIOLOGY REPORT PROCEDURE: [facility] - OFFICE VISIT INITIAL COMPARISON: None. PROGRESS NOTES: [age] year old male who presents with a 1 year history of leg swelling and pain, cramping, and slow healing wounds. The patient's leg symptoms are symmetric bilaterally. There has been a progression of symptoms over time. This increased with prolonged leg dependency. The patient describes an improvement with compression stockings, leg elevation, and diuretics. The patient denies any signs and symptoms to suggest arterial ischemia. The patient describes a family history of varicose veins on maternal side. The patient has drinking and smoking history of occasional alcohol consumption; no tobacco use. Patient has a past medical history significant for lower extremity edema, congestive heart failure, atrial fibrillation, stage 3 kidney disease. The patient denies a history of deep venous thrombus or pulmonary embolus. See separate history and physical for medication list. No prior treatment for varicose or spider veins. Current use of compression stockings. After review of nurse notes, history and physical exam I discussed at length the pathophysiology of venous hypertension and possible treatments, therapies and strategies available. We discussed at length the importance of elevating the lower extremities above the level of the heart, increased physical activity and compression stocking use. Ultrasound venous reflux study performed today was discussed at length with the patient. The report demonstrates no abnormal vein dilation or reflux within the lower extremities. PHYSICAL EXAM: The right leg demonstrates no visible varicosities, no significant spider veins, healed ulceration, no edema at this time, mild skin discoloration. The left leg demonstrates no visible varicosities, no significant spider veins, healed ulceration, no edema at this time, mild skin discoloration. Both thighs, legs and feet were symmetrically warm to the touch. Good posterior tibial and dorsalis pedis pulses were present bilaterally. VEIN/VC Facility EST Comprehensive IMPRESSION: 1. No venous insufficiency 2. No significant lower extremity varicose veins 3. No lower extremity subcutaneous edema at this time 4. Atherosclerotic plaque noted within lower extremity arteries. 5. CEAP: C0, AP, AN, PN PLAN: 1. Continued use of compression stockings 2. Elevated legs and increased physical activity symptomatic relief 3. No abnormally dilated veins or venous reflux within the lower extremities in need of treatment. Nurse notes, history and physical were reviewed and confirmed, see attached forms. The nurse was present throughout the physical exam and consultation Dictated by: Brett Grier M.D. on 07/13/2023 at 14:29 Approved by: Brett Grier M.D. on 07/13/2023 at 14:36 Dictated By: Brett Grier M.D. Signed By: 07/13/23 1437 DD/ 1436 TD/TT: Powder Hand:TBHRadiology, Radiologist, - 07/13/2023 [place] [address] Vein Report Signed Patient: JOHNATHAN RODNEY MR#: [id number] : 1955 Acct:[id number] Age/Sex: 67 / M ADM Date: 07/13/23 Loc: VC Attending Dr: Shaikh Larry Thompson Ordering Physician: Shaikh Jay Juarez Date of Service: 07/13/23 Procedure(s): VC Facility EST Comprehensive Accession Number(s): [id number] cc: Shaikh Jay Juarez Patient Name: JOHNATHAN RODNEY MR#: [id number] : 1955 Exam Date: 07/13/2023 Ordering Doctor: SHAIKH Ember JUAREZ . RADIOLOGY REPORT PROCEDURE: [facility] FACILITY EST [facility] - OFFICE VISIT INITIAL COMPARISON: None. PROGRESS NOTES: [age] year old male who presents with a 1 year history of leg swelling and pain, cramping, and slow healing wounds. The patient's leg symptoms are symmetric bilaterally. There has been a progression of symptoms over time. This increased with prolonged leg dependency. The patient describes an improvement with compression stockings, leg elevation, and diuretics. The patient denies any signs and symptoms to suggest arterial ischemia. The patient describes a family history of varicose veins on maternal side. The patient has drinking and smoking history of occasional alcohol consumption; no tobacco use. Patient has a past medical history significant for lower extremity edema, congestive heart failure, atrial fibrillation, stage 3 kidney disease. The patient denies a history of deep venous thrombus or pulmonary embolus. See separate history and physical for medication list. No prior treatment for varicose or spider veins. Current use of compression stockings. After review of nurse notes, history and physical exam I discussed at length the pathophysiology of venous hypertension and possible treatments, therapies and strategies available. We discussed at length the importance of elevating the lower extremities above the level of the heart, increased physical activity and compression stocking use. Ultrasound venous reflux study performed today was discussed at length with the patient. The report demonstrates no abnormal vein dilation or reflux within the lower extremities. PHYSICAL EXAM: The right leg demonstrates no visible varicosities, no significant spider veins, healed ulceration, no edema at this time, mild skin discoloration. The left leg demonstrates no visible varicosities, no significant spider veins, healed ulceration, no edema at this time, mild skin discoloration. Both thighs, legs and feet were symmetrically warm to the touch. Good posterior tibial and dorsalis pedis pulses were present bilaterally. VEIN/VC Facility EST Comprehensive IMPRESSION: 1. No venous insufficiency 2. No significant lower extremity varicose veins 3. No lower extremity subcutaneous edema at this time 4. Atherosclerotic plaque noted within lower extremity arteries. 5. CEAP: C0, AP, AN, PN PLAN: 1. Continued use of compression stockings 2. Elevated legs and increased physical activity symptomatic relief 3. No abnormally dilated veins or venous reflux within the lower extremities in need of treatment. Nurse notes, history and physical were reviewed and confirmed, see attached forms. The nurse was present throughout the physical exam and consultation Dictated by: Brett Grier M.D. on 07/13/2023 at 14:29 Approved by: Brett Grier M.D. on 07/13/2023 at 14:36 Dictated By: Brett Grier M.D. Signed By: 07/13/23 1437 DD/ 35 TD/TT: Powder Hand: [facility]Rad[facility] Study observation (narrative)[facility] FACILITY EST COMPREHENSIVEOrdered By: Radiologist Radiology on 12-28-1983KEBLCox Branson Work Phone: aLL CBC WITH AUTO DIFFon [id number] ABSOLUTE AUTO0.1NOMS HealthcareBasophils/100 WBC (Bld)1.4 %0.2 - 2.0 %[facility] Eosinophils/100 WBC (Bld)1.6 %0.9 - 7.0 %[facility] BransonErythrocyte distribution width (RBC) [Ratio]19.9 %High11.0 - 15.0 %[facility] BransonHematocrit (Bld) [Volume fraction]39.1 %Low42.0 - 54.0 %[facility] BransonHemoglobin (Bld) [Mass/Vol]11.6 g/dLLow14.0 - 18.0 g/dLCox BransonIMMATURE GRANULOCYTES ABS AUTO0.02NORay County Memorial HospitalImmature granulocytes/100 WBC (Bld)0.2 %0.0 - 0.5 %[facility] BransonInterpretation and review of laboratory resultsAbnormalCox Branson LYMPHOCYTES ABSOLUTE AUTO1.5NORay County Memorial HospitalLymphocytes/100 WBC (Bld)16.6 %Low 20.5 - 60.0 %[facility] CenterH (RBC) [Entitic mass]23.7 pgLow25.9 - 34.0 pgNOHCA Midwest DivisionHC (RBC) [Mass/Vol]29.7 g/dLLow29.9 - 35.2 g/dLUniversity Health Truman Medical CenterV (RBC) [Entitic vol]79.8 fLLow80.0 - 94.0 fLCox BransonMONOCYTES ABSOLUTE AUTO0.6NOMS HealthcareMonocytes/100 WBC (Bld)6.6 %1.7 - 12.0 %[facility] Healthcare NEUTROPHILS ABSOLUTE AUTO6.5NOMS HealthcareNeutrophils/100 WBC (Bld)73.6 %43.0 - 75.0 %[facility] HealthcarePlatelet mean volume (Bld) [Entitic vol]9.2 fLLow9.5 - 13.5 fLNORay County Memorial HospitalTBH EO #0.1NOMS HealthcareTBH [id number] [facility] CincinnatiTBH RBC4.90 N[facility] CincinnatiTB WBC8.8NOIL HealthcareCLINISYNCNOMS HealthcareCULTURE URINEon [id number] URINEIsolate 1 Escherichia coli >100,000 cfu/ml of ORGANISM 1 Escherichia coli ANTIBIOTIC M.I.C RX STATUS Ampicillin 8 S F Ampicillin/Sulbactam 4 S F Piperacillin/Tazobactam <=4 S F Cefazolin <=4 S F Ceftazidime <=1 S F Ceftriaxone <=1 S F Ertapenem <=0.5 S F Imipenem <=0.25 S F Amikacin <=2 S F Gentamicin <=1 S F Tobramycin <=1 S F Ciprofloxacin <=0.25 S F Levofloxacin <=0.12 S F Nitrofurantoin <=16 S F Trimethoprim/Sulfamethoxazole <=20 S FNormalThe Cherrington HospitalComment on above:Performed By: #### URCX #### [facility] [address] [address] Rahul KarenCARDIAC LEONOR ADMITon [id number] [Catalytic activity/Vol]116 U/L Ssamps82-110Zpb [facility] HospitalComment on above:Performed By: #### LIVER, BMP, CMADM, LIPA #### [facility] [address] [place], [place] [address] Rahul KarenCK.MB [Mass/Vol]1.36 ng/mLNormal<=2.37The [facility]rington HospitalComment on above:Performed By: #### LIVER, BMP, CMADM, LIPA #### [facility] [address] [place], [place] [address] Rahul KarenINR Coag (Bld) [Relative time]SEE BELOWNormalThGalion Hospital Comment on above:Result Comment: <0.034 ng/ml NEGATIVE 0.034-0.119 INDETERMINATE 0.120 AMI CUT OFFPerformed By: #### LIVER, BMP, CMADM, LIPA #### [facility] [address] [place] [address] Rahul NwildHIC666.0 ng/mLNormal<=121.0The [facility]rington HospitalComment on above: Performed By: #### LIVER, BMP, CMADM, LIPA #### [facility] [address] [place] [address] Rahul KarenTROP<0.017Normal<=0.034The [facility]rington HospitalComment on above: Performed By: #### LIVER, BMP, CMADM, LIPA #### [facility] [address] [place] [address] Rahul KarenCBC AUTO DIFFon [id number] (Bld) [#/Vol]0.1 103/ulNormal 0.0-0.1The [facility]rington HospitalComment on above:Performed By: #### CBC #### [facility] [address] [place] [address] Rahul KarenBasophils/100 WBC (Bld)0.7 %Normal0.2-2.0The [facility] Comment on above:Performed By: #### CBC #### [facility] [address] [place] [address] Rahul KarenEosinophils (Bld) [#/Vol]0.0 103/ulNormal0.0-0.7The [facility]rington HospitalComment on above:Performed By: #### CBC #### [facility] [address] [place] [address] Rahul KarenEosinophils/100 WBC (Bld)0.2 %Critically low0.9-7.0The [facility]rington HospitalComment on above:Performed By: #### CBC #### [facility] [address] [place] [address] Rahul KarenErythrocyte distribution width (RBC) [Ratio]14.8 %Cqnzfo93.0-15.0The [facility]rington HospitalComment on above:Performed By: #### CBC #### [facility] [address] [place] [address] Rahul KarenHematocrit (Bld) [Volume fraction]52.1 %Afzici58.0-54.0The [facility]rington HospitalComment on above:Performed By: #### CBC #### [facility] [address] [place] [address] Rahul KarenHemoglobin (Bld) [Mass/Vol]17.3 g/bVYblvtt31.0-18.0The [facility]rington HospitalComment on above:Performed By: #### CBC #### [facility] [address] [place] [address] Rahul KarenIG #0.10 10e3/ulCritically high0.00-0.03The [facility]rington HospitalComment on above:Performed By: #### CBC #### [facility] [address] [place] [address] Rahul KarenIG %0.6 %Critically high0.0-0.5The [facility]rington HospitalComment on above:Performed By: #### CBC #### [facility] [address] [place] [address] Rahul KarenLymphocytes (Bld) [#/Vol]1.9 103/ulNormal1.2-3.8The [facility]rington HospitalComment on above:Performed By: #### CBC #### [facility] [address] [place] [address] Rahul KarenLymphocytes/100 WBC (Bld)11.5 %Critically low20.5-60.0The [facility]rington HospitalComment on above:Performed By: #### CBC #### [facility] [address] [place] [address] Rahul KarenMANUAL DIFF REQNONormalThe [facility]rington HospitalComment on above: Performed By: #### CBC #### [facility] [address] [place] [address] Rahul KarenMCH (RBC) [Entitic mass]30.0 liXkywor13.9-34.0The [facility] Comment on above:Performed By: #### CBC #### [facility] [address] [place] [address] Rahul KarenMCHC (RBC) [Mass/Vol]33.2 g/bNLpjktn26.9-35.2The [facility] Comment on above:Performed By: #### CBC #### [facility] [address] [place] [address] Rahul KarenMCV (RBC) [Entitic vol]90.5 aVTrfoya77.0-94.0The [facility] Comment on above:Performed By: #### CBC #### [facility] [address] [place] [address] Rahul KarenMonocytes (Bld) [#/Vol]1.2 103/ulCritically high0.3-0.8The [facility] HospitalComment on above:Performed By: #### CBC #### [facility] [address] [place] [address] Rahul KarenMonocytes/100 WBC (Bld)7.0 %Normal1.7-12.0The [facility] Comment on above:Performed By: #### CBC #### [facility] [address] [place] [address] Rahul KarenNeutrophils (Bld) [#/Vol]13.3 103/ulCritically high1.4-6.5The [facility] HospitalComment on above:Performed By: #### CBC #### [facility] [address] [place] [address] Rahul KarenNeutrophils/100 WBC (Bld)80.0 %Critically high43.0-75.0The [facility] HospitalComment on above:Performed By: #### CBC #### [facility] [address] [place] [address] Rahul KarenPlatelet mean volume (Bld) [Entitic vol]9.9 fLNormal9.5-13.5The [facility] HospitalComment on above:Performed By: #### CBC #### [facility] [address] [place] [address] Rahul KarenPlatelets (Bld) [#/Vol]366 103/yxNdbfws638-432Peb [facility] Comment on above:Performed By: #### CBC #### [facility] [address] [place] [address] Rahul KarenRBC (Bld) [#/Vol]5.76 106/ulNormal4.70-6.10The [facility] Comment on above:Performed By: #### CBC #### [facility] [address] [place] [address] Rahul KarenWBC (Bld) [#/Vol]16.6 103/ulCritically high4.0-11.0The [facility] HospitalComment on above:Performed By: #### CBC #### [facility] [address] [place] [address] Rahul KarenER URINE PROFILEon 61-15-3229Fvsbuagtq [Mass/Vol]MODERATENormal NEGATIVEThe [facility]rington HospitalComment on above:Performed By: #### JANNY SINGLETON #### [facility] [address] [place] [address] Rahul KarenBLOODLARGENormalNEGATIVEDayton Osteopathic HospitalComment on above: Performed By: #### JANNY SINGLETON #### [facility] [address] [place] [address] Rahul KarenClarity (U)CLEARNormalThe [facility] HospitalComment on above: Performed By: #### JANNY SINGLETON #### [facility] [address] [place] [address] Rahul KarenColor (U)DK. ORANGENormalYELLOWThe [facility]rington HospitalComment on above:Performed By: #### JANNY SINGLETON #### [facility] [address] [place] [address] Rahul KarenERUAHDA micrscopic examination will be performed if indicated.Normal The [facility]rington HospitalComment on above:Performed By: #### JANNY SINGLETON #### [facility] [address] [place] [address] Rahul KarenGlucose [Mass/Vol]NegativeNormalNEGATIVESelect Medical Specialty [facility] HospitalComment on above:Performed By: #### JANNY SINGLETON #### [facility] [address] [place] [address] Rahul KarenKetones Ql (U)TRACENormalNEGATIVESelect Medical [facility]ty [facility] HospitalComment on above:Performed By: #### JANNY SINGLETON #### [facility] [address] [place] [address] Rahul KarenNitrite Ql (U)PositiveNormalNEGATIVESelect Medical [facility]ty [facility] HospitalComment on above:Performed By: #### JANNY SINGLETON #### [facility] [address] [place] [address] Rahul KarenpH (Bld)6.9Arzpkd4-3UvlDayton Osteopathic HospitalComment on above:Performed By: #### JANNY SINGLETON #### [facility] [address] [place] [address] Rahul KarenProtein (U) [Mass/Vol]mg/dLNormHocking Valley Community Hospital HospitalComment on above:Performed By: #### JANNY SINGLETON #### [facility] [address] [place] [address] Rahul KarenSPEC GRAVITY1.007Xczbjo3.005-<=1.025Day[facility]opathic HospitalComment on above:Performed By: #### JANNY SINGLETON #### [facility] [address] [place] [address] Rahul KarenUR MICRO INDINDICATEDNoCorey HospitalComment on above: Performed By: #### JANNY SINGLETON #### [facility] [address] [place] [address] Rahul KarenUrobilinogen Qn (U)2.0 EU/dlNoCorey HospitalComment on above:Performed By: #### JANNY SINGLETON #### [facility] [address] [place] [address] Rahul KarenWBC (Bld) [#/Vol]SMALLNormalNEGATIVEThe [facility]rington HospitalComment on above:Performed By: #### ERURJAMESRO #### [facility] [address] [place] [address] Rahul KarenLIPASEon 31-02-4490Sgpauk [Catalytic activity/Vol]160.0 U/LNormal 23.0-300.0The [facility] HospitalComment on above:Performed By: #### LIVER, BMP, CMADM, LIPA #### [facility] [address] [place] [address] Rahul KarenLIVER PROFILEon 14-86-3786Bebgcuj [Mass/Vol]3.8 g/dLNormal3.5-5.0The [facility] HospitalComment on above:Performed By: #### LIVER, BMP, CMADM, LIPA #### [facility] [address] [place] [address] Rahul KarenAlbumin/Globulin [Mass ratio]0.7 {ratio}NormalDayton Osteopathic Hospital Comment on above:Performed By: #### LIVER, BMP, CMADM, LIPA #### [facility] [address] [place] [address] Rahul KarenALP [Catalytic activity/Vol]84 U/IWzkppv23-285Ngm [facility] Comment on above:Performed By: #### LIVER, BMP, CMADM, LIPA #### [facility] [address] [place] [address] Rahul KarenALT [Catalytic activity/Vol]51 U/KExytnz56-88Siy [facility] Comment on above:Performed By: #### LIVER, BMP, CMADM, LIPA #### [facility] [address] [place] [address] Rahul KarenAST [Catalytic activity/Vol]22 U/YFgdphx29-30Kqw [facility] Comment on above:Performed By: #### LIVER, BMP, CMADM, LIPA #### [facility] [address] [place] [address] Rahul KarenBILI, CONJUGATED0.3 mg/dLNormal0.0-0.3The [facility] HospitalComment on above:Performed By: #### LIVER, BMP, CMADM, LIPA #### [facility] [address] [address] Rahul KarenBilirubin Ql (U)1.2 mg/dLNormal0.2-1.3The [facility] HospitalComment on above:Performed By: #### LIVER, BMP, CMADM, LIPA #### [facility] [address] [address] Rahul KarenGlobulin (S) [Mass/Vol]5.3 g/dLNormalThe [facility] HospitalComment on above:Performed By: #### LIVER, BMP, CMADM, LIPA #### [facility] [address] [place] [address] Rahul KarenProtein [Mass/Vol]9.1 g/dLCritically high6.1-8.2The [facility] HospitalComment on above:Performed By: #### LIVER, BMP, CMADM, LIPA #### [facility] [address] [place] [address] Rahul KarenPROF CHEM 8 (BAS METB)on 42-21-7396Zdnir gap [Moles/Vol]13.0 mmol/L NormalThe Parkwood Hospitalment on above:Performed By: #### LIVER, BMP, CMADM, LIPA #### [facility] [address] [place] [address] Rahul KarenCalcium [Mass/Vol]8.5 mg/dLNormal8.4-10.2[facility] Comment on above:Performed By: #### LIVER, BMP, CMADM, LIPA #### [facility] [address] [place] [address] Rahul KarenChloride [Moles/Vol]96 mmol/LCritically dvy29-711Fap Parkwood Hospitalment on above:Performed By: #### LIVER, BMP, CMADM, LIPA #### [facility] [address] [place] [address] Rahul KarenCO2 [Moles/Vol]31.0 mmol/LCritically high22.0-30.0The Parkwood Hospitalment on above:Performed By: #### LIVER, BMP, CMADM, LIPA #### [facility] [address] [place] [address] Rahul KarenCreatinine [Mass/Vol]1.53 mg/dLCritically high0.66-1.25The [facility] HospitalComment on above:Performed By: #### LIVER, BMP, CMADM, LIPA #### [facility] [address] [place] [address] Rahul KarenEGFR-AF UTCLQMCC83 mL/min/1.35g6Nxjpjwnnhj low>=60The [facility] HospitalComment on above:Performed By: #### LIVER, BMP, CMADM, LIPA #### [facility] [address] [place] [address] Rahul KarenEGFR-NON AF JIHMGGMS03 mL/min/1.39f6Itqpkoirzp low>=60The [facility] HospitalComment on above:Performed By: #### LIVER, BMP, CMADM, LIPA #### [facility] [address] [place] [address] Rahul KarenGlucose [Mass/Vol]135 mg/dLCritically eebv14-276Coa [facility] HospitalComment on above:Performed By: #### LIVER, BMP, CMADM, LIPA #### [facility] [address] [place] [address] Rahul KarenPotassium [Moles/Vol]3.0 mmol/LCritically low3.4-5.0The [facility] Hospitalment on above:Performed By: #### LIVER, BMP, CMADM, LIPA #### [facility] [address] [place] [address] Rahul KarenSodium [Moles/Vol]137 mmol/OCroakp325-095Lmn [facility] Comment on above:Performed By: #### LIVER, BMP, CMADM, LIPA #### [facility] [address] [place] [address] Rahul KarenUrea nitrogen [Mass/Vol]14.0 mg/dLNormal9.0-20.0The [facility] HospitalComment on above:Performed By: #### LIVER, BMP, CMADM, LIPA #### [facility] [address] [address] Rahul KarenUrea nitrogen/Creatinine [Mass ratio]9.2 mg/mgNoThe [facility] on above:Performed By: #### LIVER, BMP, CMADM, LIPA #### [facility] [address] [address] Rahul KarenPROTIMEon 61-58-1875MAQ Coag (PPP) [Relative time]1.14 {INR}Normal The [facility] on above:Performed By: #### PT, PTT #### [facility] [address] [place] [address] Rahul KarenPT Coag (PPP) [Time]PLEASE NOTE: NORMAL RANGE CHANGE 01-23-2014 DUE TO REAGENT LOT CHANGENoThe [facility] on above:Performed By: #### PT, PTT #### [facility] [address] [place] [address] Rahul KarenPT Coag (PPP) [Time]11.8 sCritically high9.0-11.6The [facility] on above:Performed By: #### PT, PTT #### [facility] [address] [place] [address] Rahul KarenPT Coag (PPP) [Time]SEE BELOWNoThe [facility] on above:Result Comment: DESIRED INR: 2.0 - 3.0 CONDITIONS NOT LISTED BELOW 2.5 - 3.5 FOR PROSTHETIC HEART VALVE REPLACEMENT 2.5 - 3.5 RECURRENT THROMBOSIS Performed By: #### PT, PTT #### [facility] [address] [place] [address] Rahul KarenPTTon 44-09-5399sGHD Coag (Bld) [Time]35.0 tCugfci45.3-36.2The [facility] on above:Performed By: #### PT, PTT #### [facility] [address] [place] [address] Rahul KarenaPTT Coag (Bld) [Time]PLEASE NOTE: NORMAL RANGE CHANGE 04-01-2015 DUE TO REAGENT LOT CHANGESelect Medical Specialty Hospital - Board[facility], IncComment on above:Performed By: #### PT, PTT #### [facility] [address] [place] [address] Rahul KarenURINE MICROSCOPIC ONLYon 38-25-7118Zoqojcwk LM.HPF (Urine sed) [#/Area]MODERATENormalNONE SEENDayton Osteopathic HospitalComment on above:Performed By: #### JANNY SINGLETON #### [facility] [address] [place] [address] Rahul KarenCASTNONE SEENGraftonNONE [facility] SystemComhills & d[facility] on above: Performed By: #### JANNY SINGLETON #### [facility] [address] [place] [address] Rahul KarenCrystals LM Nom (Urine sed)NONE SEENrmalNONE SEENDayton Osteopathic HospitalComment on above:Performed By: #### JAMES SINGLETONRO #### [facility] [address] [place] [address] Rahul KarenCULTUREINDICATEDSelect Medical Specialty Hospital - Boardman, IncComment on above: Performed By: #### JANNY SINGLETON #### [facility] [address] [place] [address] Rahul KarenEpithelial cells LM.HPF (Urine sed) [#/Area]RARESelect Medical Specialty Hospital - Board[facility], IncComhills & dales general hospital on above:Performed By: #### JAMES SINGLETONRO #### [facility] [address] [place] [address] Rahul KarenMUCOUSNONE SEENNormalNONE [facility] SystemComhills & [facility] on above: Performed By: #### JAMES SINGLETONRO #### [facility] [address] [place] [address] Rahul KarenRBC (U) [#/Vol]53-13Weyafc6-0WnwDayton Osteopathic HospitalComment on above: Performed By: #### JAMES SINGLETONRO #### [facility] [address] [place] [address] Rahul NolanWBC (Bld) [#/Vol]>100NormalNONE SEENThe [facility] HospitalComment on above:Performed By: #### JANNY SINGLETON #### [facility] [address] [id number] Rahul Nolan Vital Signs Date TimeVital SignValuePerforming DxhwpqpgqHprliinq34-13-7663 09:15-0500Blood Pressure LocationJENNIFER CHARLINE [facility]02-18-2025 09:15-0500Body rgehivkzmok15.6 [degF]KIKIGERARDO OLIVIER [facility]02-18-2025 09:15-0500Diastolic blood mm[Hg]KIKI CHARLINE [facility]02-18-2025 09:15-0500Heart rate70 /minJENNIFER CHARLINE [facility]02-18-2025 09:15-0500Respiratory rate16 /minJENNIFER CHARLINE [facility]02-18-2025 09:15-0500Systolic blood ydyvgxjw825 mm[Hg]KIKI OLIVIER [facility]02-05-2025 11:46-0500Body hwlrldzusfj21.49 [degF]Tabatha León MD Work Phone: [facility]02-05-2025 11:46-0500Diastolic blood vowtiacj46 mm[Hg]Tabatha León MD Work Phone: [facility]02-05-2025 11:46-0500Heart rate 82 /minFrcha León MD Work Phone: [facility]02-05-2025 11:46-0500 Respiratory rate16 /minTabatha León MD [facility] Phone: [facility]02-05-2025 11:46-2050CbZ3% (BldA) [Mass fraction]100 %Tabatha León MD Work Phone: [facility]02-05-2025 11:46-0500Systolic blood zwbrykps233 mm[Hg]Tabatha León MD Work Phone: [facility]02-03-2025 04:40-0500Body mass index (BMI) [Ratio]18.81 kg/c5GeotqksTabatha León MD Work Phone: [facility]02-03-2025 04:40-0500Body ciqafu48.9 kgTabatha León MD Work Phone: [facility]01-31-2025 09:25-0500Body rutfwm393.9 cmTabatha León MD Work Phone: [facility] Encounters Encounter DateEncounter TypeCare ProviderFacilityStart: 87-36-9904xdzmpnbbjq Shanthi X OrzechFacility:EU [place]Start: 03-05-2025 End: 05-74-2085zxztlneplyMF DONAL URIARTE-AMANKRAFacility:EU [place]Start: 03-05-2025 End: 59-91-7927Thjcnfd encounter procedureKPETRA URIARTE-DAYANARARA [facility] Start: 02-21-2025 End: 38-19-1098lwkipdbgwxPY DONAL OAKLEYAH-AMANKRAFacility:[place]Start: 02-21-2025 End: 17-40-3343Llupvoe encounter procedureKPETRA URIARTE-AMANK [facility] Start: 11-20-2024 End: 75-28-4596ufbczhzddtCtjyokk M [facility] Work Phone: Start: 11-20-2024 End: 91-93-9142Vxfumgoo ReferredRamon Wilson MD-LAB [facility] Start: 10-21-2024 End: 10-75-2619xixvjizytaIMWSVVJA E PERRYFacility:EU [place]vueStart: 10-21-2024 End: 48-63-3342Jtepoow encounter procedureJENNIFER E CHARLINE [facility] start: 24-66-9075vklpixxbywWW DONAL OAKLEYAH-AMANKRA Facility:EU [place]Start: 09-06-2024 End: 02-41-6526kmovezjvesIU DONAL REARDONANSAH-AMANKRAFacility:EU [place]Start: 08-30-2024 End: 61-76-3093tabvtczwhyCGZMKEDH E PERRYFacility:EU [place]Start: 07-19-2024 End: 21-34-0724jvikkmbasqXD DONAL CARONANSAH-AMANKRAFacility:EU [place]Start: 06-25-2024 End: 53-64-9755rpjmclbzclLGYSBAZT E PERRYFacility:EU [place]ueStart: 06-25-2024 End: 86-71-9356Blxtmwk encounter procedureJENNIFER E CHARLINE [facility] start: 06-08-2024 End: 09-72-8348Qbwfckrhg encounterHeather Dima Shelton APRN-WATCHMAKER APPRENTICE Work Phone: [facility] HealthcareStart: 06-07-2024 End: 78-27-5726Vyhwydtxsa and management of inpatientMatthew Philippe MD Work Phone: [facility] - GEN 9 AcuteStart: 70-23-4074evfcgfkrpzUBVFURLFELandmann-[facility] Start: 06-06-2024 End: 11-37-8642Rdzowohiu department patient visitEureka Community [facility] Ambulatory PPGStart: 12-05-2023 End: 98-26-8004vcivmdfllaVWENQG FAWWAJULIANot AvailableStart: 07-13-2023 End: 16-39-6261Tjssoenwp Result EncounterSmira Juarez MD Work Phone: noms External Department UnsolicitedStart: 07-13-2023 End: 77-21-4659Gdtilfdla Result EncounterSmira Juarez MD Work Phone: [facility] External Department UnsolicitedStart: 06-28-2023 End: 52-07-0233cbfxewhkukPRHLWX FAWWAJULIANot AvailableStart: 35-78-3294Znzoypajc Result EncounterSmira Juarez MD Work Phone: [facility] External Department UnsolicitedStart: 06-22-2023 Clinisync Result EncounterSmira Juarez MD Work Phone: noms External Department UnsolicitedStart: 05-24-2023 End: 43-95-8548wgppsoilmjLWUQFR FAWWADNot AvailableStart: 12-14-2018 End: 88-03-0876Zgcbxkg encounter procedureDOCTOR MISCFacility:H1 Procedures DateProcedureProcedure DetailPerforming ClinicianStart: 23-47-9803Pcfgd count complete auto&auto difrntl wbcAnia Dougherty DO Work Phone: Start: 63-79-7712Rttvjrcqs serum plasma/whole blood Tabatha León MD Work Phone: Start: 15-06-2060EPIGZWTDRTL CARE CONSULTAureliano Garduno DO Work Phone: Start: 85-67-7249Yxqydyxsggsib metabolic panel Roseline Reyez MD Work Phone: Start: 43-07-1452Ycssj metabolic panel calcium total Demetriasarmad Keller DO Work Phone: Start: 97-30-4505Mgfmlsj function panelAnia Krishna DO Work Phone: [phone]: 11-98-5848Tso brain brain stem w/o w/contrast materialRochelle Llamas MD Work Phone: Start: 78-63-8418Veqwxdrfq serum plasma/whole blood Roseline Reyez MD Work Phone: Start: 92-93-8122Ksv routine ecg w/least 12 lds trcg only w/o i&rTeradha Reyez MD Work Phone: Start: 39-02-9956Dlwla metabolic panel calcium total Roseline Reyez MD Work Phone: [phone]: 00-07-6422Wxwfiytjk serum plasma/whole blood Roseline Reyez MD Work Phone: Start: 87-55-0237VDGWGQRNPJF CARE CONSULTAureliano Garduno DO Work Phone: Start: 27-21-7630Tm head/brain w/o contrast material Will Renee SUPERVISOR HISTOLOGY-WATCHMAKER APPRENTICE Work Phone: Start: 81-57-67759b rendering w/interp & postprocess supervisionTeradha Reyez MD Work Phone: [phone]: 49-90-5799Lfaynmtxwmqzjl time partial plasma/whole bloodRoseline Reyez MD Work Phone: Start: 65-01-9873Ulffq metabolic panel calcium total Roseline Reyez MD Work Phone: [phone]: 53-80-5079Nxvjq panelTeradha Reyez MD Work Phone: Start: 28-99-60973o rendering w/interp & postprocess supervisionVito Kurtz PA-C Work Phone: [phone]: 65-44-3031Iivoq of magnesiumTeradha Reyez MD Work Phone: [phone]: 29-55-8012Twey bld gluc mntr dev cleared fda spec home Margarita Philippe MD Work Phone: [phone]: 11-93-3109Nfj abdomen w/o contrast materialAnia Dougherty DO Work Phone: Start: 71-84-9740Jn abdomen & pelvis w/o contrast materialMisty Dima GREENWOOD Work Phone: [phone]: 68-00-7389VLVNatgt Patel MD Work Phone: Start: 90-74-1977Pyzkktn bacterial quanttative colony count urineEvleisa Garduno DO Work Phone: [phone]: 87-61-7863Thkk tst prsmv instrmnt chem analyzers pr dateAureliano Garduno DO Work Phone: [phone]: 91-77-5667Qodew dip stick/tablet rgnt auto w/o microscopyEvleisa Garduno DO Work Phone: [phone]: 07-72-5096Fxxnv hepatitis panelAureliano Garduno DO Work Phone: [phone]: 73-85-1969Euudfzmakygtc metabolic panelAureliano Garduno DO Work Phone: Start: 81-29-6935HUSMUZNIIUX CARE CONSULTEvleisa Garduno DO Work Phone: [phone]: 18-40-6241LU FACILITY EST Evelin Juarez MD Work Phone: Start: 39-00-1543PK EXT VENOUS REFLUX MAUDE LMTFer Juarez MD Work Phone: Start: 54-71-2713ZOO CBC WITH AUTO DIFFShaikh Larry MCCALL Work Phone: None (qualifier value)KIKI OLIVIER Plan of Treatment DateCare ActivityDetailAuthorStart: 87-42-6971Vhdef BMI ScreeningAdult BMI ScreeningProTogus VA Medical Centertart: 52-62-7581Uwhpc cultureMemorial Hospitaltart: 42-00-6399Oqksnxyq identified in Urine by CultureUrine [facility] Campustart: 41-31-9375Nuiizvmre vaccination Influenza VaccineFormerly [facility] Centertart: 06-28-2023 End: 73-69-8250Gzchpyz encounter qpzrlpehq29/21/2024 1:30 PM EST Office Visit [facility] [address] [place] [address] Shaikh Juarez MD [address] [place] [phone] [facility] IMStart: 92-45-6110Kfmqdazej vaccinationInfluenza Vaccine (#1)[facility] HealthcareStart: 45-41-5261Fkveuirtl aortic aneurysm screening Abdominal Aortic Aneurysm (AAA) ScreenProTogus VA Medical Centertart: 08-01-2019 Fall Risk ScreeningFall Risk ScreeningFormerly [facility] Regional Medical Centertart: 2004 Administration of varicella zoster vaccineZoster (Shingles) Vaccine (1 of 2) [facility] SystemStart: 45-43-3021BPcS,Tdap and Td Vaccines (1 - Tdap) DTaP,Tdap and Td Vaccines (1 - Tdap)[facility] SystemStart: 1966 Depression ScreeningDepression ScreeningTwin City Hospital SystemStart: 1966 Tobacco ScreeningTobacco ScreeningFormerly [facility] Centertart: 1960 Pneumococcal Vaccine: 65+ Years (1 - PCV)Pneumococcal Vaccine: 65+ Years (1 - PCV)[facility] HealthcareStart: 87-15-4417Xyvwtxwtv for malignant neoplasm of colon [facility] End: 43-21-4054Klvym count hemoglobinHemoglobin Lab Routine Every Other Day for 3 Days starting 06/12/2024 until 06/14/2024, 1 completed[employer] Work Phone: Comment on above:Every Other Day for 3 Days starting 06/12/2024 until 06/14/2024, 1 completedCBC W Auto Differential panel - BloodCBC auto differential Lab Routine Lab max of 3 days, Daily, for lab use only until discontinued starting 06/10/2024, 3 completed[employer] Work Phone: Comment on above:Lab max of 3 days, Daily, for lab use only until discontinued starting 06/10/2024, 3 completedOxygen Therapy - Maintain SpO2: 90%; *[employer] Guidelines for O2: Yes; Document: \[email or web address]\epic\EPIC_Reference\Orders\Respiratory Care Guidelines\CPG Oxygen 2022.pdfOxygen Therapy - Maintain SpO2: 90%; *[employer]ER Guidelines for O2: Yes; Document: \[email or web address].[email or web address]\epic\EPIC_Reference\Orders\Respiratory Care Guidelines\CPG Oxygen 2022.pdf Respiratory Care Routine AsNeeded until discontinued starting 06/07/2024[facility] CaseComment on above:As Needed until discontinued starting 06/07/2024 End: 00-32-9630Yojzqajgx [#/volume] in BloodPlatelet count Lab Routine Every Third Day for 3 Days starting 06/13/2024 until 06/13/2024[facility] Comment on above:Every Third Day for 3 Days starting 06/13/2024 until 06/13/2024 End: 04-37-9241Bkyhd oximetry, spot On current oxygen flowPulse oximetry, spot On current oxygen flow Respiratory Care Routine Once for 1 Occurrences starting 06/07/2024 until 06/07/20[employer] Work Phone: Comment on above:Once for 1 Occurrences starting 06/07/2024 until 06/07/2024Respiratory Care consult *[employer] Guidelines for Resp Care Consult: Yes; Document: \[email or web address].[email or web address]\ epic\EPIC_Reference\Orders\Respiratory Care Guidelines\CPG Consult 2020.pdf Respiratory Care consult *[employer] Guidelines for Resp Care Consult: Yes; Document: \[email or web address].org\epic\EPIC_Reference\Orders\Respiratory Care Guidelines\CPG Consult 2020.pdf Respiratory Care Routine Every 12 hour check until discontinued starting 06/07/2024, 4 completedProNorth Baldwin Infirmary Health SystemComment on above:Every 12 hour check until discontinued starting 06/07/2024, 4 completed Immunizations Immunization DateImmunizationNotesCare UyefmdrsIwdkbkmo01-73-8700Aqayguajb Vaccine, Quadrivalent, AdjuvantedHeather Nikita SUPERVISOR HISTOLOGY-WATCHMAKER APPRENTICE Work Phone: [facility] Fcykmc49-82-8490cltuvkhsg virus vaccine, unspecified formulationSmira Juarez MD Work Phone: [facility] Payers DatePayer CategoryPayerPolicy [id number]-[id number] Health [id number] Care Other (unspecified)[place] [id number] [id number] Cross Blue ShieldBCBS Member Subscriber Plan / Payer (Effective 2019-Present) Name: Johnathan Rodney Relation to Subscriber: Spouse Name: TOANPB Date of : 1952 Address: [address] [place] [id number] Payer ID: Not on file Type: Not on file Address: [address] [place] [id number] [facility] Care - OtherUNC HEALTH Member Subscriber Plan / Payer (Effective 2019-Present) Name: KARMEN RODNEY SR Relation to Subscriber: Spouse Name: PB RODNEY Date of : 1952 (Home) Address: [address] [place] [address] Payer ID: [id number] (NAIC) Type: Not on file Address: [address] [place] [id number] UnknownBCBS BCBS [id number] 2019-Present [phone] [address] [place] [id number] 2020Medicare [id number] [id number] 2020 CxywblxBRM22280224524068-37-5720QfhabmgQJQ37441[id number] 2.840.1.031892.3.579.2.93764-58-2054Phupceu3656167 2.840.1.156993.3.579.2.[id number] 2.840.1.085845.3.579.2.671387-28-2534Hcxsxly5320930 2.16.840.1.274639.3.579.[id number] 2.16840.1.868093.3.579.2.106451-34-0677Kdrcfab304642541 2.16840.1.829448.3.579.2.67[id number] 2.16840.1.140624.3.579.2.807030-40-2080Mlsmjiq467861686 2.160.1.371818.3.579.2.0[id number] 2.16840.1.016287.3.579.2.608972-91-3190Tchuluh514841883 2.0.1.498100.3.579.2.1[id number] 2.840.1.325170.3.579.2.269903-97-8666Vpittar95679741 2.840.1.982910.3.579.[id number] 2.0.1.843731.3.579.2.76439-50-1024Glbmasg27984619 2.0.1.571305.3.579.2.47725-04-1407Cfkukhr89531942 2.160.1.219034.3.579.2.28919-63-8295Hdstuob53697837 2.16840.1.861651.3.579.2.89205-02-3239Qeoatzz37003203 2.16840.1.044396.3.579.2.32139-78-6362Nqsezsl34210969 2.16840.1.588894.3.579.2.36630-63-8060Ciwwqyw28167153 2.16.840.1.747218.3.579.2.727UnknownRegular [id number] qqg1qy1y-1rdm-4564-[id number] 2.16.840.1.654476.3.579.2.531 Social History DateTypeDetailFacilityStart: 05-24-2023 End: 72-62-5526Stwltca smoking status NHISNever smoked tobaccoNOMS Healthcare Start: 05-24-2023 End: 80-62-7193Ctmkozz use and exposureSmokeless tobacco non-userNOMS Healthcare Start: 36-50-8086Tgkkyrw intakeLifetime non-drinker (finding)[facility] Start: 05-24-2023 End: 46-88-3089Wwmusbb of Social functionNOMS HealthcareStart: 05-24-2023 End: 59-16-2496Cmhnnhv use panelNOMS HealthcareStart: 67-27-1942Gzh Assigned At BirthNot on fileNOMS HealthcareStart: 02-23-2022 End: 13-14-4899Zcggbfl smoking status NHISEx-smokerProMedica Health System History of tobacco useCurrent smokerProMedica Health SystemStart: 06-07-2024 Alcoholic beverage intakeCurrent drinker of alcohol (finding)ProMedicXCOR Aerospace SystemStart: 42-38-7270Pas the Fieldoo, gas, oil, or water Selltag threatened to shut off services in your home in past 12MoPatient unable to answerProPureBrands Health SystemStart: 54-29-7062YxiCows (finding)[facility] Health SystemSexual OrientationExec[facility] of [facility] start: 65-43-2045Xfz Assigned At [facility]let[facility] Hospitaltart: 62-20-0053Hiqorrefx beverage intakeEx-drinker (finding)N[facility] HealthcareNEGATED: Highlighted rowStart: NINFHistory of tobacco usePassive smokerNOMS Healthcare Goals DatePatient GoalDesired Activity/StatePersonal health goalComment on above: Evaluation of progress towards goal: Functional Status JhmwItzcxhhtqgWtdbqtMqyrkpyb44-34-4597Hgehnnrgyg StatusN/AExecutive [facility] of [facility] Efsjnlqj38-74-2669Ubobssw Health Questionnaire 2 item (PHQ-2) [Reported][facility] Mental Status DateAssessmentResultFaAurora Medical Center-[facility] System Clinical Notes 06-07-2024 to 02-18-2025 Note Date & StvfGhmfTocrtxhg11-14-4463 Hospital Discharge instructions Follow Up Care 02/18/2025 13:29:19 With:RUSTY MCCALL, DONAL, KEERTHIL Address: When: Unknown [facility] [place] [id number] NotePatient Education Urology Acute Urinary Retention, Male Acute urinary retention is a condition in which a person is unable to pass urine or can only pass alittle urine. This condition can happen suddenly and [...] As men age, their prostate may become largerand may start to press or squeeze on [...] trauma or because he does not want touse the bathroom. What are the signs or [...] these instructions at home: Medicines ??? Take thxg-bia-latcsww and prescription medicines only as told by your health care provider. Avoid certain medicines, such as decongestants, antihistamines, and some prescription medicines. Do nottake any medicine unless your health care provider approves. ??? If you were prescribed an antibiotic medicine, take it as told by your health care provider. Donot stop using the antibiotic even if you [...] provider. Document Revised: 01/13/2021 Document Reviewed: 01/13/2021 DanceTrippin Patient Education ? 2023 Eyewitness Surveillance.[facility] 06-26-2024 NotePatient Education Urology Benign Prostatic Hyperplasia Benign prostatic hyperplasia (BPH) is an enlarged prostate gland that is caused by the normal agingprocess. The prostate may get bigger as a man gets older. The condition is not caused by cancer. The prostate is a walnut-sized gland that is involved in the production of semen. It is located in front of the rectum and below the bladder. The bladder stores urine. The urethra carries stored urine ou t of the body. An enlarged prostate can press on the urethra. This can make it harder to pass urine. The buildup of urine in the bladder can cause infection. Back pressure and infection may progress to bladder damage and kidney (renal) failure. What are the causes? This condition is part of the normal aging process. However, not all men develop problems from thiscondition. If the prostate enlarges away from the [...] this procedure, a tool is inserted through theopening at the tip of the penis (urethra). [...] procedure uses radio frequencies to destroy and removea small amount of prostate tissue. ? Interstitial laser coagulation (ILC). This procedure uses a laser to destroy and remove a small amount of prostate tissue. ? Transurethral electrovaporization (TUVP). This procedure uses electrodes to destroy and remove a small amount of prostate tissue. ? Prostatic urethral lift. This procedure inserts an implant to push the lobes of the prostate awayfrom the urethra. Follow these instructions at home: ??? Take mlrz-mro-iakjflk and prescription medicines only as told by [...] symptoms do not get (more content not included)...[facility]02-05-2025 Nurse Note* Shazia Haynes RN - 06/12/2024 1:50 PM EST Summary: discharge Patient transported to facility by daughter, patient VSS. IV and tele removed. Pt wheeled down to [employer] car. [facility]02-05-2025 Nurse Note* Shazia Haynes RN - 06/12/2024 1:50 PM ESTSummary: discharge Patient transported to facility by daughter, patient VSS. IV and tele removed. Pt wheeled down to [employer] car. * Shazia Haynes RN - 06/11/2024 2:31 PM ESTSummary: patient behavior Patient declined walking with RN and NA multiple times. Patient declined having food warmed up, RN provided box lunch for patient. Patient continues to talk down to staff. * Rola Burrell RN - 06/10/2024 6:34 AM ESTSummary: [facility] Patients arenas was pulled on 06/09/24 [...] it kept coiling and would not advance. [employer] messaged person insect control inspector for urology at 0521. Was not read, no response. Then paged urology at 0630. Waiting for response - Rola Burrell RN 06/10/24 6:37 AM * Meaghan Lam RN - 06/07/2024 9:41 PM EST At 2114 patient bed alarm went off. [...] top of the bed. PCT stated he hitthat thing pointing to the wheel cover. Patient was able to get on hands and knees and raise self to bed with RN and Rola MANCUSO assistance. At 2119 RN called Vito BENEDICTRLucas with [facility] Team G as primary care team. Stat head CT ordered. Neuro assessment and vitals completed per RN. No neuro changes. Patient still A&O X 4, just slow to say the complete year correctly. Primary updated on assessment and Kiki MANCUSO took patient to CT. - Meaghan Lam RN 06/07/24 9:49 PM [facility] Plan of care note * Plan of Care - Shazia Haynes RN - 06/12/2024 12:09 PM EST Problem: Safety Goal: Patient will be injury free during hospitalization Description: INTERVENTIONS: 1. Assess patient's risk for falls and implement fall prevention plan of care per policy 2. Provide and maintain a safe environment 3. Proper use of double Identifiers 4. Medication administration using the 5 rights 5. Hand hygiene 6. Specimens are labeled at the bedside 7. Instruct patient/ patient outside dealer sales representative about use of safety devices 8. Include patient/ patient outside dealer sales representative in decisions related to safety Outcome: Progressing Note: Evaluation of progress towards goal: Patient free from injury, will continue to provide a clean environment, personal objects in reach, and a well light room Problem: Knowledge Deficit Goal: Patient/patient outside dealer sales representative demonstrates understanding of disease process, treatment plan,medications, and discharge instructions Description: INTERVENTIONS 1. Complete [...] be free from fall Description: Interventions: 1. [place] to environment 2. Hourly rounds addressing the [...] non-skid footwear 11. Teach patient and patient outside dealer sales representative to maintain environment for safety and [...] (cane, walker) within reach 19. Request patient outside dealer sales representative bring adaptive equipment/mobility aids from home or obtain and provide as needed 20. Consult pharmacy regarding effects of med's affecting mobility, cognition, and alternatives 21. Obtain physician order for PT if risk factors associated with mobility are present 22. Obtain physician order for OT as appropriate 23. Utilize diversional activities 24. Educate patient and patient outside dealer sales representative how to maintain a safe environment during visitationtimes (notify nurse prior to leaving bedside) 25. Consider appropriateness of medical or non-medical records secretary 26. Set up voiding schedule as appropriate (every 2 hours) Outcome: Progressing Note: Evaluation of progress towards goal: Patient free from injury, will continue to provide a clean environment, personal objects in reach, and a well light room [facility] [employer] [id number] Miscellaneous Notes* Plan of Care - Shazia Haynes RN - 06/12/2024 12:09 PM EST Problem: Safety Goal: Patient will be injury free during hospitalization Description: INTERVENTIONS: 1. Assess patient's risk for falls and implement fall prevention plan of care per policy 2. Provide and maintain a safe environment 3. Proper use of double Identifiers 4. Medication administration using the 5 rights 5. Hand hygiene 6. Specimens are labeled at the bedside 7. Instruct patient/ patient outside dealer sales representative about use of safety devices 8. Include patient/ patient outside dealer sales representative in decisions related to safety Outcome: Progressing Note: Evaluation of progress towards goal: Patient free from injury, will continue to provide a clean environment, personal objects in reach, and a well light room Problem: Knowledge Deficit Goal: Patient/patient outside dealer sales representative demonstrates understanding of disease process, treatment plan,medications, and discharge instructions Description: INTERVENTIONS 1. Complete [...] Score of =/> 25 or indicated by [facility] Assessment Goal: Patient should be free from fall Description: Interventions: 1. [place] to environment 2. Hourly rounds addressing the [...] non-skid footwear 11. Teach patient and patient outside dealer sales representative to maintain environment for safety and [...] (cane, walker) within reach 19. Request patient outside dealer sales representative bring adaptive equipment/mobility aids from home or obtain and provide as needed 20. Consult pharmacy regarding effects of med's affecting mobility, cognition, and alternatives 21. Obtain physician order for PT if risk factors associated with mobility are present 22. Obtain physician order for OT as appropriate 23. Utilize diversional activities 24. Educate patient and patient outside dealer sales representative how to maintain a safe environment during visitationtimes (notify nurse prior to leaving bedside) 25. Consider appropriateness of medical or non-medical records secretary 26. Set up voiding schedule as appropriate (every 2 hours) Outcome: Progressing Note: Evaluation of progress towards goal: Patient free from injury, will continue to provide a clean environment, personal objects in reach, and a well light room * Discharge Planning Note - MILLIE Call - 06/12/2024 11:21 AM EST DISCHARGE PLANNING NOTE [facility] accepted referral and [facility] will not have a bed available. Social work contacted daughter to inform of above and daughter requested referral to [facility]. Social work sent referral and [facility] is accepting referral. Social work contacted daughter to inquire about NSF preference and she is interested in [facility]. Discharge written, CRF complete. [facility] notified of discharge and CRF sent. Daughter will transport patient this afternoon to SNF. RN updated. HENS submitted. - MILLIE CALL 06/12/24 11:23 AM * Plan of Care - Kate Benson RN - 06/12/2024 12:49 AM EST Problem: Pain Goal: Patient goal is pain score less than 4, able to rest, and participant in treatment plan as appropriate Description: INTERVENTIONS: 1. Encourage patient or legal outside dealer sales representative to report early pain and ask [...] per policy 9. Teach patient or legal outside dealer sales representative interventions for comforting Outcome: Progressing Note: [...] at the bedside 7. Instruct patient/ patient outside dealer sales representative about use of safety devices 8. Include patient/ patient outside dealer sales representative in decisions related to safety Outcome: [...] hygiene technique. 7. Identify and instruct patient/patient outside dealer sales representative in use of appropriate isolation precautionsfor identified infection/symptoms. 8. Provide and discuss with patient/patient outside dealer sales representative on educational MDRO sheet. 9. Encourage and monitor nutritional status daily and consult filterer if indicated. 10. Implement neutropenic guidelines as needed. Outcome: Progressing Note: Evaluation of progress towards goal: Patient currently on IV antibiotics Problem: Knowledge Deficit Goal: Patient/patient outside dealer sales representative demonstrates understanding of disease process, treatment plan,medications, and discharge instructions Description: INTERVENTIONS 1. Complete [...] Score of =/> 25 or indicated by [facility] Assessment Goal: Patient should be free from fall Description: Interventions: 1. [place] to environment 2. Hourly rounds addressing the [...] non-skid footwear 11. Teach patient and patient outside dealer sales representative to maintain environment for safety and [...] (cane, walker) within reach 19. Request patient outside dealer sales representative bring adaptive equipment/mobility aids from home or obtain and provide as needed 20. Consult pharmacy regarding effects of med's affecting mobility, cognition, and alternatives 21. Obtain physician order for PT if risk factors associated with mobility are present 22. Obtain physician order for OT as appropriate 23. Utilize diversional activities 24. Educate patient and patient outside dealer sales representative how to maintain a safe environment during visitationtimes (notify nurse prior to leaving bedside) 25. Consider appropriateness of medical or non-medical records secretary 26. Set up voiding schedule as appropriate [...] of consciousness, motor function, sensory function, and levelof assistance needed for ADLs 4. Monitor and [...] and report duration and description of seizure toLIP 10. If seizure occurs, turn patient to [...] of progress towards goal: Neuro status improving. * Plan of Care - Shazia Haynes RN - 06/11/2024 5:22 PM EST Problem: Safety Goal: Patient will be injury free during hospitalization Description: INTERVENTIONS: 1. Assess patient's risk for falls and implement fall prevention plan of care per policy 2. Provide and maintain a safe environment 3. Proper use of double Identifiers 4. Medication administration using the 5 rights 5. Hand hygiene 6. Specimens are labeled at the bedside 7. Instruct patient/ patient outside dealer sales representative about use of safety devices 8. Include patient/ patient outside dealer sales representative in decisions related to safety Outcome: [...] hygiene technique. 7. Identify and instruct patient/patient outside dealer sales representative in use of appropriate isolation precautionsfor identified infection/symptoms. 8. Provide and discuss with patient/patient outside dealer sales representative on educational MDRO sheet. 9. Encourage and monitor nutritional status daily and consult filterer if indicated. 10. Implement neutropenic guidelines as needed. Outcome: Progressing Note: Evaluation of progress towards goal: patient is being treated with IV ATB. Problem: Knowledge Deficit Goal: Patient/patient outside dealer sales representative demonstrates understanding of disease process, treatment plan,medications, and discharge instructions Description: INTERVENTIONS 1. Complete [...] be free from fall Description: Interventions: 1. [place] to environment 2. Hourly rounds addressing the [...] non-skid footwear 11. Teach patient and patient outside dealer sales representative to maintain environment for safety and [...] (cane, walker) within reach 19. Request patient outside dealer sales representative bring adaptive equipment/mobility aids from home or obtain and provide as needed 20. Consult pharmacy regarding effects of med's affecting mobility, cognition, and alternatives 21. Obtain physician order for PT if risk factors associated with mobility are present 22. Obtain physician order for OT as appropriate 23. Utilize diversional activities 24. Educate patient and patient outside dealer sales representative how to maintain a safe environment during visitationtimes (notify nurse prior to leaving bedside) 25. Consider appropriateness of medical or non-medical records secretary 26. Set up voiding schedule as appropriate [...] of consciousness, motor function, sensory function, and levelof assistance needed for ADLs 4. Monitor and [...] and report duration and description of seizure toLIP 10. If seizure occurs, turn patient to [...] is improving- patient is alert and oriented * Discharge Planning Note - Keri Madrid - 06/11/2024 4:29 PM EST DISCHARGE PLANNING NOTE Referrals sent to [facility]/ [place], [place] (P# ; F# ) and to [facility] in [place] (P#: [phone]; F#: ) * Discharge Planning Note - MILLIE Call - 06/11/2024 4:11 PM EST DISCHARGE PLANNING NOTE Case discussed in daily transition rounds and chart reviewed by CN. Barriers to discharge include SNF arrangements, arenas Discharge Plan remains: SNF. Social work met with patient and daughter to finalize transition arrangements. Patient is now agreeable to SNF placement and patient and daughter are requesting referral to [facility] and [facility]. Social work task [facility] to send referral to above facilities- wait acceptance. Patient will not require precert for placement. CN will continue to follow and is available should any further needs arise. - MILLIE CALL 06/11/24 4:11 PM * PT/OT/PRINT SHOP STENOGRAPHER - Horacio Erickson PT - 06/11/2024 3:23 PM EST Physical Therapy Treatment Discharge Recommendations PT Recommendations: [facility] SNF/ECF Comments: due to decreased functional independence from prior to hospitalization, inabilityto care for self, high fall risk 6 [...] mobility, pass Equipment: gait belt, RW, arenas Telemetry/Cardiovascular Lab Director: Yes Oxygen Used: room air Other: High [...] care he needs. pt requires max encouragement topartitipcate. daughter present and able to convince pt [...] Outcomes Date/Time User Outcome 06/11/24 151 Horacio Erickson, PT Progressing Goal Note filed on 06/11/241511 by Horacio Erickson PT Evaluation of progress towards goal: Problem: Bed Mobility Dates: Start: 06/09/24 Disciplines: PT Goal: Patient will perform bed mobility with Modified [place] Dates: Start: 06/09/24 Expected End: 06/23/24 Description: Goal Description: Disciplines: PT Problem: Gait Dates: Start: 06/09/24 Disciplines: PT Goal: Patient will perform gait with Modified [place] Dates: Start: 06/09/24 Expected End: 06/23/24 Description: With__RW__,__150__feet Goal Description: Disciplines: PT Outcomes Date/Time User Outcome 06/11/24 151 Horacio Erickson PT Progressing Goal Note filed on 06/11/24 1512 by Horacio Erickson PT Evaluation of progress [...] Dynamic Disciplines: PT Outcomes Date/Time User Outcome 06/11/24 151 Horacio Erickson PT Progressing Goal Note filed on 06/11/24 151 by Horacio Erickson PT Evaluation of progress towards goal: Problem: Transfers Dates: Start: 06/09/24 Disciplines: PT Goal: Patient will perform transfers with Modified [place] Dates: Start: 06/09/24 Expected End: 06/23/24 Description: Goal Description: Disciplines: PT Outcomes Date/Time User Outcome 06/11/24 151 Horacio Erickson PT Progressing Goal Note filed on 06/11/24 151 by Horacio Erickson PT Evaluation of progress towards goal: Physical Therapy Care Plan (Resolved) There are no resolved problems. Principal Problem: Acute encephalopathy * PT/OT/PRINT SHOP STENOGRAPHER - Ana Ventura OTR/Bartolome - 06/11/2024 2:41 PM EST Occupational Therapy Treatment Discharge Recommendations OT Recommendations : [facility] SNF/ECF Comments: Recommend SNF for continued therapy to reach PLOF. Pt at a high risk of falls andunsafe to return home alone. 6 Clicks: Daily [...] JAMEE Mccray Equipment: Gait belt, RW, arenas Telemetry/Cardiovascular Lab Director: Yes Oxygen Used: Room air Other: High fall risk, impulsive, h/o ETOH abuse, non-receptive to education on safety, bed/chair alarm Pain Assessment Pain Assessment: No/denies pain ADL / IADL Where Assessed: Standing at sink, Chair Grooming Assistance: Contact guard assist LE Dressing Assistance: Mod assist Other: Pt required mod A to don pants at chair with increased time/cues and assist to thread arenas.Pt able to complete fastener on pants with increased time to complete. Pt stood at sink to brush teeth and wash face with CGA and verbal cues for safety. Home Management - IADL Other: Pt required mod A to don pants at chair with increased time/cues and assist to thread arenas.Pt able to complete fastener on pants with [...] Patient will perform bed mobility with Modified [place] Dates: Start: 06/09/24 Expected End: 07/07/24 Description: Goal Description: Disciplines: OT Problem: Cognition Dates: Start: 06/09/24 Disciplines: OT Goal: Patient's goal is: (specify details) Dates: Start: 06/09/24 Expected End: 07/07/24 Description: Pt will demonstrate good safety awareness 100% of the time Disciplines: OT Problem: Functional Mobility Dates: Start: 06/09/24 Disciplines: OT Goal: Patient will perform functional mobility with Modified [place] Dates: Start: 06/09/24 Expected End: 07/07/24 Description: Functional household distances Disciplines: OT Outcomes Date/Time User Outcome 06/11/24 1518 JERMAN Orr/Bartolome Progressing Goal Note filed on 06/11/24 151 by CY Orr Evaluation of progress towards goal: Problem: Other [...] Disciplines: OT Outcomes Date/Time User Outcome 06/11/241517 CY Orr Progressing Goal Note filed on 06/11/241517 by CY Orr Evaluation of progress towards goal: Problem: Strength Dates: Start: 06/09/24 Disciplines: OT Goal: Improve strength Dates: Start: 06/09/24 Expected End: 07/07/24 Description: Tolerate BUE HEP to increase strength to 5/5 Disciplines: OT Problem: Transfers Dates: Start: 06/09/24 Disciplines: OT Goal: Patient will perform transfers with Modified [place] Dates: Start: 06/09/24 Expected End: 07/07/24 Description: Goal Description: Disciplines: OT Outcomes Date/Time User Outcome 06/11/241517 CY Orr Progressing Goal Note filed on 06/11/241517 by CY Orr Evaluation of progress towards goal: Occupational Therapy Care Plan (Resolved) There are no resolved problems. Principal Problem: Acute encephalopathy * Plan of Care - Kate Benson RN - 06/11/2024 2:52 AM EST Problem: Pain Goal: Patient goal is pain score less than 4, able to rest, and participant in treatment plan as appropriate Description: INTERVENTIONS: 1. Encourage patient or legal outside dealer sales representative to report early pain and ask [...] per policy 9. Teach patient or legal outside dealer sales representative interventions for comforting Outcome: Progressing Note: [...] at the bedside 7. Instruct patient/ patient outside dealer sales representative about use of safety devices 8. Include patient/ patient outside dealer sales representative in decisions related to safety Outcome: [...] hygiene technique. 7. Identify and instruct patient/patient outside dealer sales representative in use of appropriate isolation precautionsfor identified infection/symptoms. 8. Provide and discuss with patient/patient outside dealer sales representative on educational MDRO sheet. 9. Encourage and monitor nutritional status daily and consult filterer if indicated. 10. Implement neutropenic guidelines as needed. Outcome: Progressing Note: Evaluation of progress towards goal: Patient currently on IV antibiotics Problem: Knowledge Deficit Goal: Patient/patient outside dealer sales representative demonstrates understanding of disease process, treatment plan,medications, and discharge instructions Description: INTERVENTIONS 1. Complete [...] integrity is being maintained. Patient able to turnself Problem: Urinary Incontinence Goal: Perineal skin integrity [...] be free from fall Description: Interventions: 1. [place] to environment 2. Hourly rounds addressing the [...] non-skid footwear 11. Teach patient and patient outside dealer sales representative to maintain environment for safety and [...] (cane, walker) within reach 19. Request patient outside dealer sales representative bring adaptive equipment/mobility aids from home or obtain and provide as needed 20. Consult pharmacy regarding effects of med's affecting mobility, cognition, and alternatives 21. Obtain physician order for PT if risk factors associated with mobility are present 22. Obtain physician order for OT as appropriate 23. Utilize diversional activities 24. Educate patient and patient outside dealer sales representative how to maintain a safe environment during visitationtimes (notify nurse prior to leaving bedside) 25. Consider appropriateness of medical or non-medical records secretary 26. Set up voiding schedule as appropriate (every 2 hours) Outcome: Progressing Note: Evaluation of progress towards goal: Safety precautions in place. Bed alarm on, side rails upx2, call light within reach Problem: Neurological Deficit Goal: Neurological status is stable or improving Description: Patient's goal is: INTERVENTIONS 1. Complete Neurological assessment as indicated/ordered 2. Initiate measures to prevent increased intracranial pressure 3. Monitor and assess patient's level of consciousness, motor function, sensory function, and levelof assistance needed for ADLs 4. Monitor and [...] and report duration and description of seizure toLIP 10. If seizure occurs, turn patient to [...] supplement as ordered 13. Collaborate with clinical filterer 14. Include patient/ patient's outside dealer sales representative in decisions related to nutrition Outcome: Completed Note: Evaluation of progress towards goal: Nutritional intake is adequate * Discharge Planning Note - MILLIE Call - 06/10/2024 11:42 AM EST DISCHARGE PLANNING NOTE Case discussed in daily [...] home at discharge. Social work offering to contactdaughter to inform of therapy recommendations but patient would not give permission. Wait patient decision regarding transition plan. Patient will not require precert for placement. CN will continue to follow and is available should any further needs arise. - MILLIE CALL 06/10/24 11:43 AM * Plan of Care - Georgina Guillaume - 06/10/2024 9:55 AM EST Problem: Pain Goal: Patient goal is pain score less than 4, able to rest, and participant in treatment plan as appropriate Description: INTERVENTIONS: 1. Encourage patient or legal outside dealer sales representative to report early pain and ask [...] per policy 9. Teach patient or legal outside dealer sales representative interventions for comforting Outcome: Progressing Note: [...] at the bedside 7. Instruct patient/ patient outside dealer sales representative about use of safety devices 8. Include patient/ patient outside dealer sales representative in decisions related to safety Outcome: [...] hygiene technique. 7. Identify and instruct patient/patient outside dealer sales representative in use of appropriate isolation precautionsfor identified infection/symptoms. 8. Provide and discuss with patient/patient outside dealer sales representative on educational MDRO sheet. 9. Encourage and monitor nutritional status daily and consult filterer if indicated. 10. Implement neutropenic guidelines as needed. Outcome: Progressing Note: Evaluation of progress towards goal: Patient has remained free from infection during hospitalstay. Patient is afebrile and last WBC was 6.7. Will continue using standard precautions and monitoring for signs and symptoms of infection. Problem: Knowledge Deficit Goal: Patient/patient outside dealer sales representative demonstrates understanding of disease process, treatment plan,medications, and discharge instructions Description: INTERVENTIONS 1. Complete [...] supplement as ordered 13. Collaborate with clinical filterer 14. Include patient/ patient's outside dealer sales representative in decisions related to nutrition Outcome: Progressing Note: Evaluation of progress towards goal: Patient appears to have adequate nutritional intake. Problem: Moderate - High Risk Fall Score Description: [place] Fall Score of =/> 25 or indicated by [facility] Assessment Goal: Patient should be free from fall Description: Interventions: 1. [place] to environment 2. Hourly rounds addressing the [...] non-skid footwear 11. Teach patient and patient outside dealer sales representative to maintain environment for safety and [...] (cane, walker) within reach 19. Request patient outside dealer sales representative bring adaptive equipment/mobility aids from home or obtain and provide as needed 20. Consult pharmacy regarding effects of med's affecting mobility, cognition, and alternatives 21. Obtain physician order for PT if risk factors associated with mobility are present 22. Obtain physician order for OT as appropriate 23. Utilize diversional activities 24. Educate patient and patient outside dealer sales representative how to maintain a safe environment during visitationtimes (notify nurse prior to leaving bedside) 25. Consider appropriateness of medical or non-medical records secretary 26. Set up voiding schedule as appropriate [...] of consciousness, motor function, sensory function, and levelof assistance needed for ADLs 4. Monitor and [...] and report duration and description of seizure toLIP 10. If seizure occurs, turn patient to [...] - Rebecca Arredondo RN 06/10/24 11:38 AM * Plan of Care - Rola Burrell RN - 06/10/2024 1:53 AM EST Problem: Pain Goal: Patient goal is pain score less than 4, able to rest, and participant in treatment plan as appropriate Description: INTERVENTIONS: 1. Encourage patient or legal outside dealer sales representative to report early pain and ask [...] per policy 9. Teach patient or legal outside dealer sales representative interventions for comforting Outcome: Progressing Note: Evaluation of progress towards goal: Patient encouraged to report pain occurrence. Pain to beassessed using 0-10 scale. Pain control with scheduled [...] at the bedside 7. Instruct patient/ patient outside dealer sales representative about use of safety devices 8. Include patient/ patient outside dealer sales representative in decisions related to safety Outcome: [...] hygiene technique. 7. Identify and instruct patient/patient outside dealer sales representative in use of appropriate isolation precautionsfor identified infection/symptoms. 8. Provide and discuss with patient/patient outside dealer sales representative on educational MDRO sheet. 9. Encourage and monitor nutritional status daily and consult filterer if indicated. 10. Implement neutropenic guidelines as needed. Outcome: Progressing Note: Evaluation of progress towards goal: Merchandise Distributor assessed pt risk for infection in the beginning and throughout shift. Pt remains afebrile. Will continue to monitor. Problem: Knowledge Deficit Goal: Patient/patient outside dealer sales representative demonstrates understanding of disease process, treatment plan,medications, and discharge instructions Description: INTERVENTIONS 1. Complete learning assessment and assess knowledge base 2. Provide teaching at level of understanding 3. Provide teaching via preferred learning method(s) Outcome: Progressing Note: Evaluation of progress towards goal: Merchandise Distributor educated pt on admission disease, medications, treatment, [...] and patient informed of care and progression ofstay, included in plan of care and discharge [...] patient is encouraged to reposition self, pillow supportis provided Goal: Patient's nutritional intake is adequate [...] supplement as ordered 13. Collaborate with clinical filterer 14. Include patient/ patient's outside dealer sales representative in decisions related to nutrition Outcome: [...] Score of =/> 25 or indicated by [facility] Assessment Goal: Patient should be free from fall Description: Interventions: 1. [place] to environment 2. Hourly rounds addressing the [...] non-skid footwear 11. Teach patient and patient outside dealer sales representative to maintain environment for safety and [...] (cane, walker) within reach 19. Request patient outside dealer sales representative bring adaptive equipment/mobility aids from home or obtain and provide as needed 20. Consult pharmacy regarding effects of med's affecting mobility, cognition, and alternatives 21. Obtain physician order for PT if risk factors associated with mobility are present 22. Obtain physician order for OT as appropriate 23. Utilize diversional activities 24. Educate patient and patient outside dealer sales representative how to maintain a safe environment during visitationtimes (notify nurse prior to leaving bedside) 25. Consider appropriateness of medical or non-medical records secretary 26. Set up voiding schedule as appropriate (every 2 hours) Outcome: Progressing Note: Evaluation of progress towards goal: Merchandise Distributor assessed pt fall precautions in the beginning andthroughout shift. Pt room left free of clutter, pt has all belongings and call light within reach. Will continue to monitor. Problem: Neurological Deficit Goal: Neurological status is stable or improving Description: Patient's goal is: INTERVENTIONS 1. Complete Neurological assessment as indicated/ordered 2. Initiate measures to prevent increased intracranial pressure 3. Monitor and assess patient's level of consciousness, motor function, sensory function, and levelof assistance needed for ADLs 4. Monitor and [...] and report duration and description of seizure toLIP 10. If seizure occurs, turn patient to [...] patients mentation waxes and wanes. Neuro assessments Q4hrs. * Plan of Care - Galina Eaton RN - 06/09/2024 6:46 PM EST Problem: Pain Goal: Patient goal is pain score less than 4, able to rest, and participant in treatment plan as appropriate Description: INTERVENTIONS: 1. Encourage patient or legal outside dealer sales representative to report early pain and ask [...] per policy 9. Teach patient or legal outside dealer sales representative interventions for comforting Outcome: Progressing Note: [...] at the bedside 7. Instruct patient/ patient outside dealer sales representative about use of safety devices 8. Include patient/ patient outside dealer sales representative in decisions related to safety Outcome: [...] hygiene technique. 7. Identify and instruct patient/patient outside dealer sales representative in use of appropriate isolation precautionsfor identified infection/symptoms. 8. Provide and discuss with patient/patient outside dealer sales representative on educational MDRO sheet. 9. Encourage and monitor nutritional status daily and consult filterer if indicated. 10. Implement neutropenic guidelines as [...] be free from fall Description: Interventions: 1. [place] to environment 2. Hourly rounds addressing the [...] non-skid footwear 11. Teach patient and patient outside dealer sales representative to maintain environment for safety and [...] (cane, walker) within reach 19. Request patient outside dealer sales representative bring adaptive equipment/mobility aids from home or obtain and provide as needed 20. Consult pharmacy regarding effects of med's affecting mobility, cognition, and alternatives 21. Obtain physician order for PT if risk factors associated with mobility are present 22. Obtain physician order for OT as appropriate 23. Utilize diversional activities 24. Educate patient and patient outside dealer sales representative how to maintain a safe environment during visitationtimes (notify nurse prior to leaving bedside) 25. Consider appropriateness of medical or non-medical records secretary 26. Set up voiding schedule as appropriate (every 2 hours) Outcome: Progressing Note: Evaluation of progress towards goal: fall precautions maintaind Problem: Neurological Deficit Goal: Neurological status is stable or improving Description: Patient's goal is: INTERVENTIONS 1. Complete Neurological assessment as indicated/ordered 2. Initiate measures to prevent increased intracranial pressure 3. Monitor and assess patient's level of consciousness, motor function, sensory function, and levelof assistance needed for ADLs 4. Monitor and [...] and report duration and description of seizure toLIP 10. If seizure occurs, turn patient to [...] goal: wax/wane with mentation. Q4 neuros checked * PT/OT/PRINT SHOP STENOGRAPHER - Ree Hinson OTR/Bartolome - 06/09/2024 12:07 PM EST Occupational Therapy Evaluation Discharge Recommendations OT Recommendations : [facility] SNF/ECF Comments: Recommend SNF for continued therapy to reach PLOF. Pt at a high risk of falls andunsafe to return home alone. 6 Clicks: Daily [...] History: Diagnosis Date Abnormal EKG Atrial fibrillation ([facility]) Back pain Bradycardia Chronic atrial fibrillation ([facility]) Hypertension Hypertensive heart disease without heart failure Hypokalemia Pure hypercholesterolemia Urinary tract infection 01/2019 seen by [facility] No past surgical history on file. OT [...] mobility guidelines Equipment: Gait belt, RW, arenas Telemetry/Cardiovascular Lab Director: Yes Oxygen Used: Room air Other: High [...] in back. Total assistance to don socks whilesupine. Home Management - IADL Other: Pt donne gown at bedside with assistance to tie in back. Total assistance to don socks whilesupine. Hearing / Speech / Vision Hearing: Within [...] Patient will perform bed mobility with Modified [place] Dates: Start: 06/09/24 Expected End: 07/07/24 Description: Goal Description: Disciplines: OT Problem: Cognition Dates: Start: 06/09/24 Disciplines: OT Goal: Patient's goal is: (specify details) Dates: Start: 06/09/24 Expected End: 07/07/24 Description: Pt will demonstrate good safety awareness 100% of the time Disciplines: OT Problem: Functional Mobility Dates: Start: 06/09/24 Disciplines: OT Goal: Patient will perform functional mobility with Modified [place] Dates: Start: 06/09/24 Expected End: 07/07/24 Description: [...] Goal: Patient will perform transfers with Modified [place] Dates: Start: 06/09/24 Expected End: 07/07/24 Description: Goal Description: Disciplines: OT Occupational Therapy Care Plan (Resolved) There are no resolved problems. Principal Problem: Acute encephalopathy * PT/OT/PRINT SHOP STENOGRAPHER - Sadie Sim PT - 06/09/2024 11:21 AM EST Physical Therapy Evaluation Discharge Recommendations PT Recommendations: [facility] SNF/ECF Comments: pt will need SNF [...] status decline resulting from admission 06/07/24 from [facility] where he went with afib with RVR and altered mentalstatus. MRI brain without acute findings but chronic infarct post R frontal lobe. Neuro stroke consulted and recommended transfer to [facility]. Diagnosed with acute encphalopathy, afib with RVR (resolved),alcohol use disorder with CIWA protocol, hyperbilirubinemia with consult to general surgery (no surgery indicated). Consult GI for cirrhosis and to f/u as outpatient. Urology consult for urinary retention. Fell in the night, hit head; CT with B subdural fluid collection/hygromas and neurosurgery con sulted with no surgery indicated. No chief complaint on file. Past Medical History: Diagnosis Date Abnormal EKG Atrial fibrillation (CMS-HCC) Back pain Bradycardia Chronic atrial fibrillation (CMS-HCC) Hypertension Hypertensive heart disease without heart failure Hypokalemia Pure hypercholesterolemia Urinary tract infection 01/2019 seen by [facility] No past surgical history on file. PT [...] to see Equipment: RW, gait belt, catheter Telemetry/Cardiovascular Lab Director: Yes Oxygen Used: room air Other: pt [...] Patient will perform bed mobility with Modified [place] Dates: Start: 06/09/24 Expected End: 06/23/24 Description: Goal Description: Disciplines: PT Problem: Gait Dates: Start: 06/09/24 Disciplines: PT Goal: Patient will perform gait with Modified [place] Dates: Start: 06/09/24 Expected End: 06/23/24 Description: [...] Goal: Patient will perform transfers with Modified [place] Dates: Start: 06/09/24 Expected End: 06/23/24 Description: Goal Description: Disciplines: PT Physical Therapy Care Plan (Resolved) There are no resolved problems. Principal Problem: Acute encephalopathy * Query Response - NIRMALA Jara - 06/09/2024 9:09 AM EST Query Response Note AUTOMATED QUERY TEXT: Stage of Chronic Kidney Disease: This query seeks further clarification of documentation to reflectall conditions that you are monitoring, evaluating, treating [...] signed by: Vira SILVESTRE 06/09/2024 9:07 AM * Plan of Care - Shazia Haynes RN - 06/08/2024 11:49 AM EST Problem: Safety Goal: Patient will be injury free during hospitalization Description: INTERVENTIONS: 1. Assess patient's risk for falls and implement fall prevention plan of care per policy 2. Provide and maintain a safe environment 3. Proper use of double Identifiers 4. Medication administration using the 5 rights 5. Hand hygiene 6. Specimens are labeled at the bedside 7. Instruct patient/ patient outside dealer sales representative about use of safety devices 8. Include patient/ patient outside dealer sales representative in decisions related to safety Outcome: Progressing Note: Evaluation of progress towards goal: Patient free from injury, will continue to provide a clean environment, personal objects in reach, and a well light room Problem: Knowledge Deficit Goal: Patient/patient outside dealer sales representative demonstrates understanding of disease process, treatment plan,medications, and discharge instructions Description: INTERVENTIONS 1. Complete [...] be free from fall Description: Interventions: 1. [place] to environment 2. Hourly rounds addressing the [...] non-skid footwear 11. Teach patient and patient outside dealer sales representative to maintain environment for safety and [...] (cane, walker) within reach 19. Request patient outside dealer sales representative bring adaptive equipment/mobility aids from home or obtain and provide as needed 20. Consult pharmacy regarding effects of med's affecting mobility, cognition, and alternatives 21. Obtain physician order for PT if risk factors associated with mobility are present 22. Obtain physician order for OT as appropriate 23. Utilize diversional activities 24. Educate patient and patient outside dealer sales representative how to maintain a safe environment during visitationtimes (notify nurse prior to leaving bedside) 25. Consider appropriateness of medical or non-medical records secretary 26. Set up voiding schedule as appropriate (every 2 hours) Outcome: Progressing Note: Evaluation of progress towards goal: Patient free from injury, will continue to provide a clean environment, personal objects in reach, and a well light room * PT/OT/PRINT SHOP STENOGRAPHER - Will Doyle PT - 06/08/2024 11:04 AM EST Physical Therapy PT Type of Visit: Medical deferral Reason For Medical Deferral: Medical procedure ongoing, RN deems inappropriate, Imaging results pending (pt had fall last night and is leaving for stat CT on attempt at eval. will hold at this time) * Plan of Care - Meaghan Lam RN - 06/07/2024 9:00 PM EST Problem: Pain Goal: Patient goal is pain score less than 4, able to rest, and participant in treatment plan as appropriate Description: INTERVENTIONS: 1. Encourage patient or legal outside dealer sales representative to report early pain and ask [...] per policy 9. Teach patient or legal outside dealer sales representative interventions for comforting Outcome: Progressing Note: Evaluation of progress towards goal: Patient encouraged to report pain occurrence. Pain to beassessed using 0-10 pain scale. Pain controled with [...] at the bedside 7. Instruct patient/ patient outside dealer sales representative about use of safety devices 8. Include patient/ patient outside dealer sales representative in decisions related to safety Outcome: [...] hygiene technique. 7. Identify and instruct patient/patient outside dealer sales representative in use of appropriate isolation precautionsfor identified infection/symptoms. 8. Provide and discuss with patient/patient outside dealer sales representative on educational MDRO sheet. 9. Encourage and monitor nutritional status daily and consult filterer if indicated. 10. Implement neutropenic guidelines as needed. Outcome: Progressing Note: Evaluation of progress towards goal: Patient has remained afebrile. WBC and vital signs monitored. Patient has not shown any additional signs of infection at this time. Problem: Knowledge Deficit Goal: Patient/patient outside dealer sales representative demonstrates understanding of disease process, treatment plan,medications, and discharge instructions Description: INTERVENTIONS 1. Complete [...] Score of =/> 25 or indicated by [facility] Assessment Goal: Patient should be free from fall Description: Interventions: 1. [place] to environment 2. Hourly rounds addressing the [...] non-skid footwear 11. Teach patient and patient outside dealer sales representative to maintain environment for safety and [...] (cane, walker) within reach 19. Request patient outside dealer sales representative bring adaptive equipment/mobility aids from home or obtain and provide as needed 20. Consult pharmacy regarding effects of med's affecting mobility, cognition, and alternatives 21. Obtain physician order for PT if risk factors associated with mobility are present 22. Obtain physician order for OT as appropriate 23. Utilize diversional activities 24. Educate patient and patient outside dealer sales representative how to maintain a safe environment during visitationtimes (notify nurse prior to leaving bedside) 25. Consider appropriateness of medical or non-medical records secretary 26. Set up voiding schedule as appropriate [...] of consciousness, motor function, sensory function, and levelof assistance needed for ADLs 4. Monitor and [...] and report duration and description of seizure toLIP 10. If seizure occurs, turn patient to [...] about disease process, medications, and treatment plan. Merchandise Distributor to update patient throughout the shift regarding plan of care. * Plan of Care - Shazia Haynes RN - 06/07/2024 2:42 PM EST Problem: Safety Goal: Patient will be injury free during hospitalization Description: INTERVENTIONS: 1. Assess patient's risk for falls and implement fall prevention plan of care per policy 2. Provide and maintain a safe environment 3. Proper use of double Identifiers 4. Medication administration using the 5 rights 5. Hand hygiene 6. Specimens are labeled at the bedside 7. Instruct patient/ patient outside dealer sales representative about use of safety devices 8. Include patient/ patient outside dealer sales representative in decisions related to safety Outcome: Progressing Note: Evaluation of progress towards goal: Patient free from injury, will continue to provide a clean environment, personal objects in reach, and a well light room Problem: Knowledge Deficit Goal: Patient/patient outside dealer sales representative demonstrates understanding of disease process, treatment plan,medications, and discharge instructions Description: INTERVENTIONS 1. Complete [...] be free from fall Description: Interventions: 1. [place] to environment 2. Hourly rounds addressing the [...] non-skid footwear 11. Teach patient and patient outside dealer sales representative to maintain environment for safety and [...] (cane, walker) within reach 19. Request patient outside dealer sales representative bring adaptive equipment/mobility aids from home or obtain and provide as needed 20. Consult pharmacy regarding effects of med's affecting mobility, cognition, and alternatives 21. Obtain physician order for PT if risk factors associated with mobility are present 22. Obtain physician order for OT as appropriate 23. Utilize diversional activities 24. Educate patient and patient outside dealer sales representative how to maintain a safe environment during visitationtimes (notify nurse prior to leaving bedside) 25. Consider appropriateness of medical or non-medical records secretary 26. Set up voiding schedule as appropriate [...] of consciousness, motor function, sensory function, and levelof assistance needed for ADLs 4. Monitor and [...] and report duration and description of seizure toLIP 10. If seizure occurs, turn patient to [...] patient is alert to self and location. * Discharge Planning Note - Angelina Garcia RN - 06/07/2024 9:31 AM EST Images from the original note were not included. DISCHARGE PLANNING NOTE Attempted to meet with patient and he is leaving floor for imaging. Will check back as able. 12:19 Chart reviewed. Met with patient, explained role, verbalized understanding. Patient lives by himself he has lost his of 30 years which has caused him much sadness. 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 He is unable to quantify the amountof beer he drinks when asked, CIWA continues. [...] food box at discharge. documented in this encounterC[facility]innati [facility] Hospital[facility] [id number] Progress note* Discharge Planning Note - MILLIE Call - 06/12/2024 11:21 AM EST DISCHARGE PLANNING NOTE [facility] accepted referral and [facility] will not have a bed available. Social work contacted daughter to inform of above and daughter requested referral to [facility] and [facility]. [facility]. [facility] work contacted daughter to inquire about NSF preference and she is interested in [facility]. Discharge written, CRF complete. [place] notified of discharge and CRF sent. Daughter will transport patient this afternoon to SNF. RN updated. HENS submitted. - MILLIE CALL 06/12/24 11:23 AM [facility] Hospital course Narrative* Tabatha León MD - 06/12/2024 11:06 AM EST Images from the original note were not included. [facility] Hospitalists Discharge Summary CONFIDENTIAL INFORMATION Patient's Name: Johnathan Rodney Date of : 1955 Age: 68 yrs Gender: male Date of service: 06/12/2024 PCP: Patient Care Team: [facility] as PCP - General (Family Medicine) DATE OF ADMISSION: 06/07/2024 DATE OF DISCHARGE: 06/12/2024 DISCHARGE DIAGNOSES: Principal Problem: Acute encephalopathy CONSULTANTS: Consulting Providers Provider Service Specialty Nicolas Wells MD Z Surgery General Surgery Catrina Marie MD -- Neurology Richardson Brandt DO -- Gastroenterology PCP: Patient Care Team: [facility] as PCP - General (Family Medicine) Hospital Course HPI Johnathan Rodney is a 68 y.o. male medical history significant for atrial fibrillation, hypertension, chronic systolic heart failure, history of alcohol use disorder, who presented to [facility] for evaluation of altered mentation. Patient history provided by chart provided on transfer as hewas confused. His family brought him to the emergency room for general lethargy and confusion. He was found to be in atrial fibrillation with rapid ventricular response and was started on Cardizem infusion which he later converted to normal sinus rhythm he has been Cardizem since. He remained altered and described hallucinations. Laboratory data revealed elevated total bilirubin at 2.8 creatinineelevated at 2.11 with a BUN of 48, white blood cell count negative blood pressure was severely elevated. Patient admits to alcohol and marijuana use. Creatinine improved with IV hydration as the patient appeared clinically dehydrated. Abdominal ultrasound was obtained due to total bilirubin being el evated as well as a AST of 54 and it revealed acute versus chronic cholecystitis and a dilated right renal pelvis representing hydronephrosis and possible ureteral obstruction versus prominent per pelvic cyst. 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 Due to continued confusion and MRI of the brain was obtained on 06/06/2024 which revealed no evidence of acute ischemic infarct but limited by motion artifact. Patient was treatedwith IV antibiotics with Rocephin and Flagyl a [place] catheter was placed due to acute urinary retent ion. Neuro stroke was consulted and they recommended transfer to [facility] for evaluation with potential lumbar puncture. [...] Your Medications These medications were sent to [facility]/pharmacy #[id number] - [place], [place] - [address] [id number] atorvastatin 40 mg tablet carvediloL 12.5 mg tablet folic acid 1 mg tablet furosemide 40 mg tablet QUEtiapine 25 mg tablet tamsulosin 0.4 mg capsule thiamine HCl 100 mg tablet For most accurate medication list, please review the discharge medication summary. Discharge Instructions Disposition: Discharge to F Condition: Good Activity: activity as tolerated Diet: Adult diet Regular Texture Adult diet Information Provided to the Patient: Patient given copy of Discharge Instructions, patient hospital stay was discussed. No special instructions. Follow up: Lizbeth Horne MD [address] [place], [place] [id number] Schedule an appointment as soon as possible for a visit in 2 week(s) to discuss urinary issues [address] [phone] Greater than 35 minutes were spent on discharging this patient. Electronically SIGNED by Licensed Independent Practitioner: Tabatha León MD [facility]ician Hospitalists, Department of Internal Medicine 06/12/24 [...] have escaped final proofreading documented in [facility]City [facility] Plan of care note * Plan of Care - Kate Benson RN - 06/12/2024 12:49 AM EST Problem: Pain Goal: Patient goal is pain score less than 4, able to rest, and participant in treatment plan as appropriate Description: INTERVENTIONS: 1. Encourage patient or legal outside dealer sales representative to report early pain and ask [...] per policy 9. Teach patient or legal outside dealer sales representative interventions for comforting Outcome: Progressing Note: [...] at the bedside 7. Instruct patient/ patient outside dealer sales representative about use of safety devices 8. Include patient/ patient outside dealer sales representative in decisions related to safety Outcome: [...] hygiene technique. 7. Identify and instruct patient/patient outside dealer sales representative in use of appropriate isolation precautionsfor identified infection/symptoms. 8. Provide and discuss with patient/patient outside dealer sales representative on educational MDRO sheet. 9. Encourage and monitor nutritional status daily and consult filterer if indicated. 10. Implement neutropenic guidelines as needed. Outcome: Progressing Note: Evaluation of progress towards goal: Patient currently on IV antibiotics Problem: Knowledge Deficit Goal: Patient/patient outside dealer sales representative demonstrates understanding of disease process, treatment plan,medications, and discharge instructions Description: INTERVENTIONS 1. Complete [...] Score of =/> 25 or indicated by [facility] Assessment Goal: Patient should be free from fall Description: Interventions: 1. [place] to environment 2. Hourly rounds addressing the [...] non-skid footwear 11. Teach patient and patient outside dealer sales representative to maintain environment for safety and [...] (cane, walker) within reach 19. Request patient outside dealer sales representative bring adaptive equipment/mobility aids from home or obtain and provide as needed 20. Consult pharmacy regarding effects of med's affecting mobility, cognition, and alternatives 21. Obtain physician order for PT if risk factors associated with mobility are present 22. Obtain physician order for OT as appropriate 23. Utilize diversional activities 24. Educate patient and patient outside dealer sales representative how to maintain a safe environment during visitationtimes (notify nurse prior to leaving bedside) 25. Consider appropriateness of medical or non-medical records secretary 26. Set up voiding schedule as appropriate [...] of consciousness, motor function, sensory function, and levelof assistance needed for ADLs 4. Monitor and [...] and report duration and description of seizure toLIP 10. If seizure occurs, turn patient to [...] of progress towards goal: Neuro status improving. [facility] Plan of care note* Plan of Care - Shazia Haynes RN - 06/11/2024 5:22 PM EST Problem: Safety Goal: Patient will be injury free during hospitalization Description: INTERVENTIONS: 1. Assess patient's risk for falls and implement fall prevention plan of care per policy 2. Provide and maintain a safe environment 3. Proper use of double Identifiers 4. Medication administration using the 5 rights 5. Hand hygiene 6. Specimens are labeled at the bedside 7. Instruct patient/ patient outside dealer sales representative about use of safety devices 8. Include patient/ patient outside dealer sales representative in decisions related to safety Outcome: [...] hygiene technique. 7. Identify and instruct patient/patient outside dealer sales representative in use of appropriate isolation precautionsfor identified infection/symptoms. 8. Provide and discuss with patient/patient outside dealer sales representative on educational MDRO sheet. 9. Encourage and monitor nutritional status daily and consult filterer if indicated. 10. Implement neutropenic guidelines as needed. Outcome: Progressing Note: Evaluation of progress towards goal: patient is being treated with IV ATB. Problem: Knowledge Deficit Goal: Patient/patient outside dealer sales representative demonstrates understanding of disease process, treatment plan,medications, and discharge instructions Description: INTERVENTIONS 1. Complete [...] Score of =/> 25 or indicated by [facility] Assessment Goal: Patient should be free from fall Description: Interventions: 1. [place] to environment 2. Hourly rounds addressing the [...] non-skid footwear 11. Teach patient and patient outside dealer sales representative to maintain environment for safety and [...] (cane, walker) within reach 19. Request patient outside dealer sales representative bring adaptive equipment/mobility aids from home or obtain and provide as needed 20. Consult pharmacy regarding effects of med's affecting mobility, cognition, and alternatives 21. Obtain physician order for PT if risk factors associated with mobility are present 22. Obtain physician order for OT as appropriate 23. Utilize diversional activities 24. Educate patient and patient outside dealer sales representative how to maintain a safe environment during visitationtimes (notify nurse prior to leaving bedside) 25. Consider appropriateness of medical or non-medical records secretary 26. Set up voiding schedule as appropriate [...] of consciousness, motor function, sensory function, and levelof assistance needed for ADLs 4. Monitor and [...] and report duration and description of seizure toLIP 10. If seizure occurs, turn patient to [...] is improving- patient is alert and oriented [facility] [id number] Progress note* Discharge Planning Note - Keri Madrid - 06/11/2024 4:29 PM EST DISCHARGE PLANNING NOTE Referrals sent to [facility]/ [facility], [place], [place] (P# ; F# ) and to [facility] in [place] (P#: [phone]; F#: ) [facility] [id number] Progress note* Discharge Planning Note - MILLIE Call - 06/11/2024 4:11 PM EST DISCHARGE PLANNING NOTE Case discussed in daily transition rounds and chart reviewed by CN. Barriers to discharge include SNF arrangements, arenas Discharge Plan remains: SNF. Social work met with patient and daughter to finalize transition arrangements. Patient is now agreeable to SNF placement and patient and daughter are requesting referral to [facility]. Social work task RC to send referral to above facilities- wait acceptance. Patient will not require precert for placement. CN will continue to follow and is available should any further needs arise. - MILLIE CALL 06/11/24 4:11 PM [facility]02-04-2025 Progress note* PT/OT/PRINT SHOP STENOGRAPHER - Horacio Erickson, PT - 06/11/2024 3:23 PM EST Physical Therapy Treatment Discharge Recommendations PT Recommendations: [facility] SNF[facility]ECF Comments: due to decreased functional independence from prior to hospitalization, inabilityto care for self, high fall risk 6 [...] mobility, pass Equipment: gait belt, RW, arenas Telemetry/Cardiovascular Lab Director: Yes Oxygen Used: room air Other: High [...] care he needs. pt requires max encouragement topartitipcate. daughter present and able to convince pt to amb with therapy. pt states he is weak but then refuses to amb Bed Mobility Other: not tested, pt up in chair with call light in reach before and after treatment Transfers Sit to Stand: Standby assist Stand to Sit: Standby assist Other: verbal cues to keep from aborting walker as andrea attatched to it Gait Base of Support: [...] Patient will perform bed mobility with Modified [place] Dates: Start: 06/09/24 Expected End: 06/23/24 Description: Goal Description: Disciplines: PT Problem: Gait Dates: Start: 06/09/24 Disciplines: PT Goal: Patient will perform gait with Modified [place] Dates: Start: 06/09/24 Expected End: 06/23/24 Description: [...] Erickson PT Progressing Goal Note filed on 06/11/24 151 by Horacio Erickson PT Evaluation of progress towards goal: Problem: Transfers Dates: Start: 06/09/24 Disciplines: PT Goal: Patient will perform transfers with Modified [place] Dates: Start: 06/09/24 Expected End: 06/23/24 Description: Goal Description: Disciplines: PT Outcomes Date/Time User Outcome 06/11/241511 Horacio Erickson PT Progressing Goal Note filed on 06/11/24 151 by Horacio Erickson PT Evaluation of progress towards goal: Physical Therapy Care Plan (Resolved) There are no resolved problems. Principal Problem: Acute encephalopathy [facility]02-04-2025 Progress note* PT/OT/PRINT SHOP STENOGRAPHER - Ana Ventura OTR/L - 06/11/2024 2:41 PM EST Occupational Therapy Treatment Discharge Recommendations OT Recommendations : [facility] SNF[facility]ECF Comments: Recommend SNF for continued therapy to reach PLOF. Pt at a high risk of falls andunsafe to return home alone. 6 Clicks: Daily [...] JAMEE Mccray Equipment: Gait belt, RW, arenas Telemetry/Cardiovascular Lab Director: Yes Oxygen Used: Room air Other: High fall risk, impulsive, h/o ETOH abuse, non-receptive to education on safety, bed/chair alarm Pain Assessment Pain Assessment: No/denies pain ADL / IADL Where Assessed: Standing at sink, Chair Grooming Assistance: Contact guard assist LE Dressing Assistance: Mod assist Other: Pt required mod A to don pants at chair with increased time/cues and assist to thread arenas.Pt able to complete fastener on pants with increased time to complete. Pt stood at sink to brush teeth and wash face with CGA and verbal cues for safety. Home Management - IADL Other: Pt required mod A to don pants at chair with increased time/cues and assist to thread arenas.Pt able to complete fastener on pants with [...] Patient will perform bed mobility with Modified [place] Dates: Start: 06/09/24 Expected End: 07/07/24 Description: Goal Description: Disciplines: OT Problem: Cognition Dates: Start: 06/09/24 Disciplines: OT Goal: Patient's goal is: (specify details) Dates: Start: 06/09/24 Expected End: 07/07/24 Description: Pt will demonstrate good safety awareness 100% of the time Disciplines: OT Problem: Functional Mobility Dates: Start: 06/09/24 Disciplines: OT Goal: Patient will perform functional mobility with Modified [place] Dates: Start: 06/09/24 Expected End: 07/07/24 Description: Functional household distances Disciplines: OT Outcomes Date/Time User Outcome 06/11/241517 JERMAN Orr/Bartolome Progressing Goal Note filed on 06/11/241517 by JERMAN Orr/Bartolome Evaluation of progress towards goal: Problem: Other (Customize) Dates: Start: 06/09/24 Disciplines: OT Goal: Improve Dates: Start: 06/09/24 Expected End: 07/07/24 Description: Perform ADL's with mod I Disciplines: OT Outcomes Date/Time User Outcome 06/11/241517 CY Orr Progressing Goal Note filed on 06/11/241517 by [...] Goal: Patient will perform transfers with Modified [place] Dates: Start: 06/09/24 Expected End: 07/07/24 Description: Goal Description: Disciplines: OT Outcomes Date/Time User Outcome 06/11/241517 JERMAN Orr/Bartolome Progressing Goal Note filed on 06/11/241517 by CY Orr Evaluation of progress towards goal: Occupational Therapy Care Plan (Resolved) There are no resolved problems. Principal Problem: Acute encephalopathy [facility] Nurse Note* Shazia Haynes RN - 06/11/2024 2:31 PM ESTSummary: patient behavior Patient declined walking with RN and NA multiple times. Patient declined having food warmed up, RN provided box lunch for patient. Patient continues to talk down to staff. [facility] History of Present illness Narrative* Tabatha León MD - 06/11/2024 8:58 AM EST Daily Progress Note Principal Problem: Acute encephalopathy [...] lowering techniques were utilized. All CT scans atthis facility use dose modulation, iterative reconstruction, and/or weight based dosing when appropr iate to reduce radiation dose to as low [...] bleed. 2. No significant change from the comparisonexamination. Finalized by Uriel Smith MD on 06/08/2024 [...] MRI follow-up. No convincing intracranial hemorrhage.. SOFT TISSUESand ORBITS: Orbits are unremarkable. Soft tissues within normal limits. CALVARIUM: No depressed calv arial fracture or suspicious lesion. SINUSES AND MASTOID AIR CELLS: Well aerated. IMPRESSION: No significant change from 06/07/2024.. See above. Consider MRI follow-up . All CT scans at this facility use dose modulation, iterative reconstruction, and/or weight based dosing when appropriate to reduceradiation dose to as low as reasonably achievable. Finalized by Zac Lewis MD on 06/08/2024 11:06 AM EEG Result Date: 06/07/2024 Images from the original result were not included. History This is a routine EEG in a patient with altered mental status. Procedure This is a standard digital EEG performed in the 10-20 Internationalsystem and was reviewed with multiple reformattable montages Technical Description There is no welldefined posterior dominant rhythm noted. The background is [...] a sustained driving response. There is no evidenceof definite epileptiform activity during this study Clinical Interpretation This EEG in the awake state is abnormal due to the presence of moderate to severe generalized background slowing suggestiveof moderate to severe bi-hemispheric cerebral dysfunction that can be seen in post ictal states, metabolic, hypoxic or toxic encephalopathies, sedative medication use or primary neurological disorders. Bertha Oakley MD Toll Ticket Clerk Neurology/Neurophysiology [facility] CT brain without contrast Result Date: [...] MRI abdomen without intravenous contrast. Routine multiplanar multisequenceMR imaging of the abdomen was performed prior [...] is no evidence of dilatation of the pancreaticduct. No obvious pancreatic mass. Cyst formation in the right kidneys. IMPRESSION: The examination is limited due to motion artifact and lack of contrast. There is significant edema of the mesentericfat planes as well as significant pleural effusions. There is a no biliary duct dilatation but there is sludge in the gallbladder. No biliary duct dilatation. Finalized by MD Rhina on 06/07/2024 8:[address] abdomen and [...] FINDINGS LOWER CHEST: Moderate bilateral pleural effusions withcompressive atelectasis. Minor interstitial edema in the lung bases. Coronary artery calcifications. Cardiomegaly. HEPATOBILIARY: Unenhanced liver and gallbladder unremarkable. No biliary dilation. PANCREAS: Unenhanced pancreas unremarkable. No pancreatic ductal dilation. SPLEEN: The unenhanced spleen is within normal limits. ADRENAL GLANDS: The unenhanced adrenal glands are within normal limits.KIDNEYS, URETERS, AND BLADDER: Simple right interpolar renal [...] bilaterally. Left side dominant vertebral artery. Diminutive rightvertebral artery. No high-grade stenosis. No significant soft tissue abnormalities of the neck IMPRESSION: Mild atherosclerosis of the bilateral carotid bulbs 2 views to no more than mild stenosis ofthe origins of the ICAs. Otherwise, no high-grade [...] evaluate vascular anatomy. FINDINGS: VASCULATURE FINDINGS: Intracranial IntracranialICAs: Mild atherosclerosis of the bilateral carotids. No [...] appreciable flow related enhancement within the proximal K3njkgwrk possibly due to flow dynamics and bjhd-ck-cbtrfu technique as there appears to be normal contrast enhancement within the V4 segment on the MRA of the neck Basilar artery: Normal. sample display preparer: The left TRANSITION LEAD is normal. Diminished flow related enhancement within the distal right TRANSITION LEAD distribution likely sequelae of prior right TRANSITION LEAD infarct. IMPRESSION: 1. Diminished flow related signal within the right TRANSITION LEAD is likely chronic and related to known right chronic occipital infarct/encephalomalacia. 2. Diminished flow related enhancement within the proximal right vertebral artery is likely due to flow dynamics and hafs-gg-yhjncc technique is there is normal-appearing enhancement on the postcontrast MRA of the neck. 3. Otherwise, no high-grade stenosis, occlusion, or evidence of sizable aneurysm. Finalized by Zac Lucia on 06/10/2024 9:32 AM MR brain with and without contrast Result Date: 06/10/2024 EXAM:MR BRAIN W WO CONT INDICATION: Mental status change, unknown cause COMPARISON: None TECHNIQUE:Multiplanar multisequence pre and post contrast MR sequences through the head/brain. 12.5 mL ProHance BRAIN FINDINGS: Motion degraded study, most notably postcontrast T1 sequences Brain Parenchyma: Qu estionable punctate focus of diffusion hyperintense signal within the ventral detxer best appreciatedon 8:37, this is favored to be artifactual [...] Correlate with symptoms. Sequelae of prior right TRANSITION LEAD territory ischemia Finalized by Zac Lucia on 06/10/2024 7:[address] brain without contrast Result Date: 06/08/[address] of the brain dated dated 06/08/2024 at 7:56 PM INDICATION: Bilateral subdural fluid collections PROCEDURE: Automatic radiation exposure lowering techniques were utilized. All CT scans atthis facility use dose modulation, iterative reconstruction, and/or weight based dosing when appropr iate to reduce radiation dose to as low [...] bleed. 2. No significant change from the comparisonexamination. Finalized by Uriel Smith MD on 06/08/2024 [...] to SNF. Await acceptance. DVT prophylaxis - navid León MD54:58 PM This note was created with the assistance of a speech-recognition program. Every effort was made toensure accuracy; however, inadvertent computerized plastics seasoner operator errors may be present. * Eric Dejesus MD - 06/11/2024 7:47 AM EST Images from the original note were not [...] Urology reconsulted for [place] catheter placement. Eighteen [place] tip catheter placed without resistance with return [...] 7 days Lab Units 06/10/24 0705 06/09/24 1952 06/09/24 0544 06/08/24 2110 06/08/24 0406 POTASSIUM mmol/L 3.4* 3.8 3.5 < > [...] Units 06/10/24 0705 06/09/24 0544 06/08/24 0406 06/07/24 0542 WBC X10E9/L 6.7 6.0 -- 6.4 [...] week. May have void trial as outpatient. * Marco A Reddy MD - 06/10/2024 3:05 PM EST Images from the original note were not included. [facility] Neurology General Neurology Consultation Progress Note Consult Neurology Service: [phone] Primary Team: Howie Hospitalist Chief Concern and [...] noted that patient would use alcohol daily aswell as marijuana and cigarettes. Outside hospital CT [...] for occult infection. Patient was transferred to [facility] for further evaluation. Interval history: Patient seen [...] Results from last 7 days Lab Units 02/0370406/09/2454306/08/2440506/07/24 0542 WBC X10E9/L 6.7 6.0 -- 6.4 [...] Results from last 7 days Lab Units 06/10/2470406/08/2440506/07/24 0542 ALBUMIN g/dL 3.5 2.9* 2.9* TOTAL PROTEIN g/dL 5.8* 5.7* 5.4* ALT U/L 19 20 21 AST U/L 25 31 29 ALK PHOS U/L -- -- 60 AMMONIA umol/L -- -- 32 Results from last 7 days Lab Units 06/10/2470406/09/2454306/08/24405 GLUCOSE mg/dL 103* 99 117* Lab Results [...] x3 oriented to person, place, time but disorientedto situation as well as has some lapses [...] his history of alcohol use. 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 Delirium precautions. No further inpatient neurology workup needed at this time, our service will sign off Marco A Reddy MD PGY-4, Neurology Resident [facility] 06/10/24 3:05 PM Staffed with: Dr. Bethea This patient is being followed by the Neurology Resident service. Contact attending directly during these hours: Monday to 7:30-8:30 A.M. to Monday 12-1:00 p.m. Primary Neurology service: [phone] Consult neurology service: [phone] Resident Stroke Service: [phone] If the patient belongs to the Stroke [...] agree with resident note. Guilherme Bethea MD Toll Ticket Clerk of Neurology [facility] 06/10/24 * Roseline Reyez MD - 06/10/2024 8:33 AM EST Images from the original note were not included. [facility]ITAL[facility] PROGRESS NOTE 06/10/2024 Patient Name: Johnathan Rodney : 1955 Code status: Problem List: Principal Problem: Acute encephalopathy Consulting Providers Provider Service Specialty Nicolas Wells MD Z Surgery General Surgery MD [facility] [...] metoprolol (LOPRESSOR) IV, 5 mg, Q6H PRN iglpgpds-qkdp-QU-calcium &mins, 1 tablet, Daily PRN potassium chloride, [...] Units 06/10/24 0705 06/09/24 0544 06/08/24 0406 06/07/24 0542 WBC X10E9/L 6.7 6.0 -- 6.4 [...] Results from last 7 days Lab Units 06/10/2470406/09/2454306/08/2440506/07/24194506/07/24 0542 BEDSIDE GLUCOSE mg/dL -- -- -- 86 -- GLUCOSE mg/dL 103* 99 117* -- 91 Results from last 7 days Lab Units 06/10/2470406/09/2454306/08/2440506/07/24212906/07/24 0542 MAGNESIUM mg/dL -- -- 2.5 2.7* 1.5* CALCIUM mg/dL 8.3* 8.7 8.3* -- 8.6 Results from last 7 days Lab Units 06/07/24 0542 IRON ug/dL 16* TIBC-CALC ONLY DO NOT ORDER ug/dL 336 FERRITIN ng/mL 41 Results from last 7 days Lab Units 06/10/2470406/08/2440506/07/24 0542 ALK PHOS U/L -- -- 60 AST U/L 25 31 29 ALT U/L 19 20 21 ALBUMIN g/dL 3.5 2.9* 2.9* Results from last 7 days Lab Units 06/07/24 0542 AMMONIA umol/L 32 Results from last 7 days Lab Units 06/08/2440506/07/24 0542 PROTIME sec 13.9* 15.5* INR 1.2* 1.3* Microbiology Results Procedure Component Value Units Date/Time Urine culture [[id number]] Collected: 06/07/24 0751 Specimen: Urine Updated: 06/08/24 0813 Culture NO GROWTH AT <1000 CFU/mL MRA [...] bilaterally. Left side dominant vertebral artery. Diminutive rightvertebral artery. No high-grade stenosis. No significant soft tissue abnormalities of the neck IMPRESSION: Mild atherosclerosis of the bilateral carotid bulbs 2 views to no more than mild stenosis ofthe origins of the ICAs. Otherwise, no high-grade [...] evaluate vascular anatomy. FINDINGS: VASCULATURE FINDINGS: Intracranial IntracranialICAs: Mild atherosclerosis of the bilateral carotids. No [...] appreciable flow related enhancement within the proximal O0hklragt possibly due to flow dynamics and ayae-dj-fagzgl technique as there appears to be normal contrast enhancement within the V4 segment on the MRA of the neck Basilar artery: Normal. sample display preparer: The left TRANSITION LEAD is normal. Diminished flow related enhancement within the distal right TRANSITION LEAD distribution likely sequelae of prior right TRANSITION LEAD infarct. IMPRESSION: 1. Diminished flow related signal within the right TRANSITION LEAD is likely chronic and related to known right chronic occipital infarct/encephalomalacia. 2. Diminished flow related enhancement within the proximal right vertebral artery is likely due to flow dynamics and leaf-ur-whiayk technique is there is normal-appearing enhancement on the postcontrast MRA of the neck. 3. Otherwise, no high-grade stenosis, occlusion, or evidence of sizable aneurysm. Finalized by Zac Lucia on 06/10/2024 9:32 AM MR brain with and without contrast Result Date: 06/10/2024 EXAM:MR BRAIN W WO CONT INDICATION: Mental status change, unknown cause COMPARISON: None TECHNIQUE:Multiplanar multisequence pre and post contrast MR sequences through the head/brain. 12.5 mL ProHance BRAIN FINDINGS: Motion degraded study, most notably postcontrast T1 sequences Brain Parenchyma: Qu estionable punctate focus of diffusion hyperintense signal within the ventral dexter best appreciatedon 8:37, this is favored to be artifactual [...] Correlate with symptoms. Sequelae of prior right TRANSITION LEAD territory ischemia Finalized by Zac Lucia on 06/10/2024 7:[address] brain without contrast Result Date: 06/08/[address] of the brain dated dated 06/08/2024 at 7:56 PM INDICATION: Bilateral subdural fluid collections PROCEDURE: Automatic radiation exposure lowering techniques were utilized. All CT scans atthis facility use dose modulation, iterative reconstruction, and/or weight based dosing when appropr iate to reduce radiation dose to as low [...] bleed. 2. No significant change from the comparisonexamination. Finalized by Uriel Smith MD on 06/08/2024 [...] MRI follow-up. No convincing intracranial hemorrhage.. SOFT TISSUESand ORBITS: Orbits are unremarkable. Soft tissues within normal limits. CALVARIUM: No depressed calv arial fracture or suspicious lesion. SINUSES AND MASTOID AIR CELLS: Well aerated. IMPRESSION: No significant change from 06/07/2024.. See above. Consider MRI follow-up . All CT scans at this facility use dose modulation, iterative reconstruction, and/or weight based dosing when appropriate to reduceradiation dose to as low as reasonably achievable. [...] MRI abdomen without intravenous contrast. Routine multiplanar multisequenceMR imaging of the abdomen was performed prior [...] is no evidence of dilatation of the pancreaticduct. No obvious pancreatic mass. Cyst formation in the right kidneys. IMPRESSION: The examination is limited due to motion artifact and lack of contrast. There is significant edema of the mesentericfat planes as well as significant pleural effusions. There is a no biliary duct dilatation but there is sludge in the gallbladder. No biliary duct dilatation. Finalized by MD Rhina on 06/07/2024 8:32 PM This note was created with the assistance of a speech-recognition program. Although the intention is to generate a document that actually reflects the content of the visit, no guarantees can be provided that every mistake has been identified and corrected by editing. Electronically signed by: ROSELINE REYEZ MD, KRISTAL, [facility] 06/10/2024 2:29 PM Preferred contact method: #1. Epic chat #2. [facility] team pager Available from 7 am to 7 pm * Will Renee APRN-WATCHMAKER APPRENTICE - 06/09/2024 5:25 PM EST Images from the original note were not included. [facility] [address] [place] [address], [address] [place] [address] * NEUROSURGERY DAILY PROGRESS NOTE DATE:06/09/2024 PATIENT'S [...] Julio- [facility] Please contact via Orbiter first then can utilize Patient touch/VoceraEdge if needed 06/09/24 5:34 PM To find out which JAK is on for the day please go to [employer] and use log in [employer] and search for [facility] Neurosurgery (JAK and Phone Number is listed) NIRMALA Beebe 06/09/24 3046 * Roseline Reyez MD - 06/09/2024 9:45 AM EST Images from the original note were not included. [facility] 06/09/2024 Patient Name: [...] cholecystitis. On Rocephin and Flagyl. GI and Generalsurgery signed off. No acute intervention planned Hyperbilirubinemia- trending down, LFTs within normal limits now. hepatitis panel within normal limits. MRCP showing significant edema of the mesenteric fat planes as well as significant pleural effusion. 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 MRI brain currently negative for any acute infarcts.- neurology consulted. Follow up EEG. Continue Lipitor. Maintain [...] metoprolol (LOPRESSOR) IV, 5 mg, Q6H PRN tzqgdgkv-mxju-AZ-calcium &mins, 1 tablet, Daily PRN potassium chloride, [...] Results from last 7 days Lab Units 06/09/2454306/08/2440506/07/24194506/07/24 0542 BEDSIDE GLUCOSE mg/dL -- -- 86 -- GLUCOSE mg/dL 99 117* -- 91 Results from last 7 days Lab Units 06/09/2454306/08/2440506/07/24212906/07/24 0542 MAGNESIUM mg/dL -- 2.5 2.7* 1.5* [...] Procedure Component Value Units Date/Time Urine culture [[id number]] Collected: 06/07/24 0751 Specimen: Urine Updated: 06/08/24 08 Culture NO GROWTH AT <1000 CFU/mL CT brain without contrast Result Date: 06/08/[address] of the brain dated dated 06/08/2024 at 7:56 PM INDICATION: Bilateral subdural fluid collections PROCEDURE: Automatic radiation exposure lowering techniques were utilized. All CT scans atthis facility use dose modulation, iterative reconstruction, and/or weight based dosing when appropr iate to reduce radiation dose to as low [...] bleed. 2. No significant change from the comparisonexamination. Finalized by Uriel Smith MD on 06/08/2024 [...] MRI follow-up. No convincing intracranial hemorrhage.. SOFT TISSUESand ORBITS: Orbits are unremarkable. Soft tissues within normal limits. CALVARIUM: No depressed calv arial fracture or suspicious lesion. SINUSES AND MASTOID AIR CELLS: Well aerated. IMPRESSION: No significant change from 06/07/2024.. See above. Consider MRI follow-up . All CT scans at this facility use dose modulation, iterative reconstruction, and/or weight based dosing when appropriate to reduceradiation dose to as low as reasonably achievable. Finalized by Zac Lewis MD on 06/08/2024 11:06 AM EEG Result Date: 06/07/2024 Images from the original result were not included. History This is a routine EEG in a patient with altered mental status. Procedure This is a standard digital EEG performed in the 10-20 Internationalsystem and was reviewed with multiple reformattable montages Technical Description There is no welldefined posterior dominant rhythm noted. The background is [...] a sustained driving response. There is no evidenceof definite epileptiform activity during this study Clinical Interpretation This EEG in the awake state is abnormal due to the presence of moderate to severe generalized background slowing suggestiveof moderate to severe bi-hemispheric cerebral dysfunction that can be seen in post ictal states, metabolic, hypoxic or toxic encephalopathies, sedative medication use or primary neurological disorders. Bertha Oakley MD Toll Ticket Clerk Neurology/Neurophysiology [facility] CT brain without contrast Result Date: [...] MRI abdomen without intravenous contrast. Routine multiplanar multisequenceMR imaging of the abdomen was performed prior [...] is no evidence of dilatation of the pancreaticduct. No obvious pancreatic mass. Cyst formation in the right kidneys. IMPRESSION: The examination is limited due to motion artifact and lack of contrast. There is significant edema of the mesentericfat planes as well as significant pleural effusions. There is a no biliary duct dilatation but there is sludge in the gallbladder. No biliary duct dilatation. Finalized by MD Rhina on 06/07/2024 8:[address] abdomen and [...] FINDINGS LOWER CHEST: Moderate bilateral pleural effusions withcompressive atelectasis. Minor interstitial edema in the lung bases. Coronary artery calcifications. Cardiomegaly. HEPATOBILIARY: Unenhanced liver and gallbladder unremarkable. No biliary dilation. PANCREAS: Unenhanced pancreas unremarkable. No pancreatic ductal dilation. SPLEEN: The unenhanced spleen is within normal limits. ADRENAL GLANDS: The unenhanced adrenal glands are within normal limits.KIDNEYS, URETERS, AND BLADDER: Simple right interpolar renal [...] signed by: ROSELINE REYEZ MD, KRISTAL, FACP 06/09/2024 11:15 AM Preferred contact method: #1. Epic chat #2. PPH team pager Available from 7 am to 7 pm * Demetria Krishna, DO - 06/09/2024 9:02 AM EST Images from the original note were not [...] magnesium sulfate magnesium sulfate metoprolol (LOPRESSOR) IV qjmnabjr-hcxx-UT-calcium &mins potassium chloride OR potassium chloride OR [...] on prior; consider MRI follow-up. No convincing intracranialhemorrhage.. SOFT TISSUES and ORBITS: Orbits are unremarkable. [...] and marijuana use who was transferred to [facility] from OSH with AMS and hyperbilirubinemia. MRCP [...] General Surgery C 6a - 6p Pager: [phone] 6p - 6a Pager: [phone] Cosigned by Nicolas Wells MD at 06/09/2024 9:18 AM EST Associated attestation - Nicolas Wells MD - 06/09/2024 9:18 AM EST Attending Attestation: I saw the patient. I performed the critical/leonardo portions of the service. I was directly involved inthe management and treatment plan of the patient. I reviewed the resident's note. Additional Notes/Findings: Doing ok. No complaints of pain. Diet as tolerated. Will sign-off. Please call if needed. Nicolas Wells MD, FACS General Surgery and Minimally Invasive Surgery [address], [address] [place] [address] Office: * Marco A Reddy MD - 06/08/2024 5:51 PM EST Images from the original note were not included. [facility] Neurology General Neurology Consultation Progress Note Consult Neurology Service: [phone] Primary [facility]: [facility] Chief Concern and Reason for Consultation: Altered [...] noted that patient would use alcohol daily aswell as marijuana and cigarettes. Outside hospital CT [...] for occult infection. Patient was transferred to [facility] for further evaluation. Interval history: Patient seen and evaluated at the bedside, patient was somnolent, however arousable with repetitivestimulation, patient was oriented to self, person and [...] 06/08/24 1020 06/08/24 0406 06/07/24 2130 06/07/24 0542 APTT sec 38* 80* 52* 37 INR -- 1.2* -- 1.3* Results from last 7 days Lab Units 06/08/24 0406 06/07/24 2130 06/07/24 0542 SODIUM mmol/L 146 -- 144 POTASSIUM [...] 7 days Lab Units 06/08/24 0406 06/07/24 1946 06/07/24 0542 BEDSIDE GLUCOSE mg/dL -- 86 -- [...] x3 oriented to person, place, time but disorientedto situation as well as has some lapses [...] infectious derangements per primary team and other consultingservices. Our service will continue to follow Marco A Reddy MD PGY-4, Neurology Resident [facility] 06/08/24 5:51 PM Staffed with: Dr. Bethea This patient is being followed by the Neurology Resident service. Contact attending directly during these hours: Monday to 7:30-8:30 A.M. to Monday 12-1:00 p.m. Primary Neurology service: [phone] Consult neurology service: [phone] Resident Stroke Service: [phone] If the patient belongs to the Stroke JAK service please contact the Stroke AJK directly. Cosigned by Guilherme Bethea MD at 06/08/2024 6:03 PM EST Associated attestation - Guilherme Bethea MD - 06/08/2024 6:03 PM EST Attending Attestation: I saw the patient. I participated and was physically present during the critical/leonardo portions of the service. I was directly involved in the management and treatment plan of the patient. I reviewed the resident's note. Additional Notes/Findings: None * Demetria Keller, DO - 06/08/2024 11:00 AM EST Images from the original note were not [...] LORazepam OR LORazepam magnesium sulfate magnesium sulfate yefeuigi-yiab-RR-calcium &mins potassium chloride OR potassium chloride OR [...] or primary neurological disorders. Bertha Oakley MD Toll Ticket Clerk Neurology/Neurophysiology [facility] CT brain without contrast CT HEAD [...] No biliary duct dilatation. Finalized by Gab Caly MD on 06/07/2024 8:[address] abdomen [...] Frederick Crump DO on 06/07/2024 9:47 AM I, Baldev Hyde MD have personally reviewed the image(s) and agree with and/or edited the report Finalized by Baldev Hyde MD on 06/07/2024 10:07 AM Assessment: Johnathan Rodney is a 68 y.o.male with a PMH of CHF 50%, Afib on Eliquis, and daily alcohol and marijuana use who was transferred to [facility] from OSH with AMS and hyperbilirubinemia. MRCP [...] General Surgery C 6a - 6p Pager: [phone] 6p - 6a Pager: [phone] Cosigned by Nicolas Wells MD at 06/08/2024 3:36 PM EST Associated attestation - Nicolas Wells MD - 06/08/2024 3:36 PM EST Attending Attestation: I saw the patient. I performed the critical/leonardo portions of the service. I was directly involved inthe management and treatment plan of the patient. I reviewed the resident's note. Additional Notes/Findings: Unclear etiology of elevated liver enzymes. No surgical intervention at this point. Nicolas Wells MD, FACS General Surgery and Minimally Invasive Surgery [address] [place] [address], [address] [place] [address] Office: * Essence Shelton, SUPERVISOR HISTOLOGY-WATCHMAKER APPRENTICE - 06/08/2024 10:31 AM EST [facility] Gastroenterology/Hepatology Progress Note IDENTIFYING DATA PATIENT: Johnathan [...] mg, PRN magnesium sulfate, 4,000 mg, PRN xtjllwtc-fzlq-ZW-calcium &mins, 1 tablet, Daily PRN potassium chloride, [...] use admitted with encephalopathy after presenting to [facility] with altered mental status and hallucinations. 1. [...] standpoint. GI will sign off. NIRMALA Kennedy [facility] [address] [place], [place] [id number] PH: [phone] NIRMALA Kuhn 06/08/24 1530 * Roseline Reyez MD - 06/08/2024 10:15 AM EST Images from the original note were not included. [facility] 06/08/2024 Patient Name: [...] in 04/2023- IV Lasix. Daily weights, intake andoutput. Acute abdominal pain-suspected colitis versus cholecystitis. On [...] MRI brain currently negative for any acute infarcts.- neurology consulted. Follow up EEG. Continue Lipitor. Maintain delirium precautions S/p fall yesterday- CT head showing bilateral subdural fluid collection/hygromas without significant mass effect. Patient continues to be on heparin drip. Neurosurgery consulted. Acute urinary retention, right-sided hydronephrosis-s/p Arenas catheter placement. Continue Flomax. Reconsult Urology on the day of discharge for plans for Arenas catheter. Alcohol use disorder- on [facility] protocol. Thiamine and folic acid. Marijuana and [...] mg, PRN magnesium sulfate, 4,000 mg, PRN cbirpvoy-cdge-PZ-calcium &mins, 1 tablet, Daily PRN potassium chloride, [...] from last 7 days Lab Units 06/08/2440506/07/24 19406/07/24 0542 BEDSIDE GLUCOSE mg/dL -- 86 [...] Procedure Component Value Units Date/Time Urine culture [[id number]] Collected: 06/07/24 0751 Specimen: Urine Updated: 06/08/24812 Culture NO GROWTH AT <1000 CFU/mL CT [...] MRI follow-up. No convincing intracranial hemorrhage.. SOFT TISSUESand ORBITS: Orbits are unremarkable. Soft tissues within normal limits. CALVARIUM: No depressed calv arial fracture or suspicious lesion. SINUSES AND MASTOID AIR CELLS: Well aerated. IMPRESSION: No significant change from 06/07/2024.. See above. Consider MRI follow-up . All CT scans at this facility use dose modulation, iterative reconstruction, and/or weight based dosing when appropriate to reduceradiation dose to as low as reasonably achievable. Finalized by Zac Lewis MD on 06/08/2024 11:06 AM EEG Result Date: 06/07/2024 Images from the original result were not included. History This is a routine EEG in a patient with altered mental status. Procedure This is a standard digital EEG performed in the 10-20 Internationalsystem and was reviewed with multiple reformattable montages Technical Description There is no welldefined posterior dominant rhythm noted. The background is [...] a sustained driving response. There is no evidenceof definite epileptiform activity during this study Clinical Interpretation This EEG in the awake state is abnormal due to the presence of moderate to severe generalized background slowing suggestiveof moderate to severe bi-hemispheric cerebral dysfunction that can be seen in post ictal states, metabolic, hypoxic or toxic encephalopathies, sedative medication use or primary neurological disorders. Bertha Oakley MD Toll Ticket Clerk Neurology/Neurophysiology [facility] CT brain without contrast Result Date: [...] MRI abdomen without intravenous contrast. Routine multiplanar multisequenceMR imaging of the abdomen was performed prior [...] is no evidence of dilatation of the pancreaticduct. No obvious pancreatic mass. Cyst formation in the right kidneys. IMPRESSION: The examination is limited due to motion artifact and lack of contrast. There is significant edema of the mesentericfat planes as well as significant pleural effusions. There is a no biliary duct dilatation but there is sludge in the gallbladder. No biliary duct dilatation. Finalized by MD Rhina on 06/07/2024 8:[address] abdomen and [...] FINDINGS LOWER CHEST: Moderate bilateral pleural effusions withcompressive atelectasis. Minor interstitial edema in the lung bases. Coronary artery calcifications. Cardiomegaly. HEPATOBILIARY: Unenhanced liver and gallbladder unremarkable. No biliary dilation. PANCREAS: Unenhanced pancreas unremarkable. No pancreatic ductal dilation. SPLEEN: The unenhanced spleen is within normal limits. ADRENAL GLANDS: The unenhanced adrenal glands are within normal limits.KIDNEYS, URETERS, AND BLADDER: Simple right interpolar renal [...] Preferred contact method: #1. Epic chat #2. [facility] team pager Available from 7 am to 7 pm * Corey Wade MD - 06/08/2024 9:41 AM EST Images from the original note were not [...] this morning likely secondary to pulling on catheter.He was slightly altered. Weight: 62.4 kg (137 [...] from last 7 days Lab Units 06/07/24 2130 06/07/24 1946 06/07/24 0542 POTASSIUM mmol/L 3.2* -- [...] May have void trial prior to discharge. * Shavonne Holbrook MD - 06/07/2024 12:20 PM EST Images from the original note were not included. [facility] Neurology General Neurology Consultation Progress Note Consult Neurology Service: [phone] Primary Team: [facility] Chief Concern and Reason for Consultation: Altered [...] with his medications. Per patient's daughter, the patie nt had visual hallucinations of spiders and the hallucinations were getting more severe. Patient was becoming more paranoid as well. Additionally, it was noted that patient would use alcohol daily aswell as marijuana and cigarettes. Outside hospital CT [...] consider LP for occult infection. Patient was tra nsferred to [facility] for further evaluation. Overnight, no significant events happened. Patient received Rocephin and Flagyl. CIWA protocol was initiated concerning alcohol withdrawal. General surgery was consulted for cholecystitis, who recommended MRCP and GI consult. Urology was also consulted for urinary retention and hydronephrosis. Today, the patient is alert and awake. He is oriented to place and person, but not time. He doesn'thave any visual hallucinations at this time. No [...] light touch throughout. Cerebellar: Able to do vhgyqu-kr-cpuz bilaterally; normal coordination Gait and station: Deferred. [...] x3 oriented to person, place, time but disorientedto situation as well as has some lapses and retrograde memory. Impression: Altered mental status secondary to metabolic encephalopathy versus delirium versus HIRED HAND infection versus seizure. Remote right frontal and [...] narcotics and sedating medications, patient should try tostay awake during daytime, open blinds during the [...] Shavonne Holbrook MD PGY-2 Internal Medicine Resident [facility] 06/07/24 12:21 PM Staffed with: Dr. Marie This patient is being followed by the Neurology Resident service. Contact attending directly during these hours: Monday to 7:30-8:30 A.M. to Monday 12-1:00 p.m. Primary Neurology service: [phone] Consult neurology service: [phone] Resident Stroke Service: [phone] If the patient belongs to the Stroke [...] meaning can be extrapolated by contextual derivation. * Tatiana Garza RPH - 06/07/2024 6:12 AM EST [facility] Department of Pharmacy Pharmacist to Physician Communication The dose of metronidazole has been changed per the [facility] approved temporary dosing guidelines, due tothe drug continued drug shortage (adjusted from 500 mg IV every 8 hours to 500 mg IV every 12 hours). If you need additional information, please reach out to a pharmacist at [phone]. Thank you, Tatiana Garza ilya [facility] Plan of care note * Plan of Care - Kate Benson RN - 06/11/2024 2:52 AM EST Problem: Pain Goal: Patient goal is pain score less than 4, able to rest, and participant in treatment plan as appropriate Description: INTERVENTIONS: 1. Encourage patient or legal outside dealer sales representative to report early pain and ask [...] per policy 9. Teach patient or legal outside dealer sales representative interventions for comforting Outcome: Progressing Note: [...] at the bedside 7. Instruct patient/ patient outside dealer sales representative about use of safety devices 8. Include patient/ patient outside dealer sales representative in decisions related to safety Outcome: [...] hygiene technique. 7. Identify and instruct patient/patient outside dealer sales representative in use of appropriate isolation precautionsfor identified infection/symptoms. 8. Provide and discuss with patient/patient outside dealer sales representative on educational MDRO sheet. 9. Encourage and monitor nutritional status daily and consult filterer if indicated. 10. Implement neutropenic guidelines as needed. Outcome: Progressing Note: Evaluation of progress towards goal: Patient currently on IV antibiotics Problem: Knowledge Deficit Goal: Patient/patient outside dealer sales representative demonstrates understanding of disease process, treatment plan,medications, and discharge instructions Description: INTERVENTIONS 1. Complete [...] integrity is being maintained. Patient able to turnself Problem: Urinary Incontinence Goal: Perineal skin integrity [...] Score of =/> 25 or indicated by [facility] Assessment Goal: Patient should be free from fall Description: Interventions: 1. [place] to environment 2. Hourly rounds addressing the [...] non-skid footwear 11. Teach patient and patient outside dealer sales representative to maintain environment for safety and [...] (cane, walker) within reach 19. Request patient outside dealer sales representative bring adaptive equipment/mobility aids from home or obtain and provide as needed 20. Consult pharmacy regarding effects of med's affecting mobility, cognition, and alternatives 21. Obtain physician order for PT if risk factors associated with mobility are present 22. Obtain physician order for OT as appropriate 23. Utilize diversional activities 24. Educate patient and patient outside dealer sales representative how to maintain a safe environment during visitationtimes (notify nurse prior to leaving bedside) 25. Consider appropriateness of medical or non-medical records secretary 26. Set up voiding schedule as appropriate (every 2 hours) Outcome: Progressing Note: Evaluation of progress towards goal: Safety precautions in place. Bed alarm on, side rails upx2, call light within reach Problem: Neurological Deficit Goal: Neurological status is stable or improving Description: Patient's goal is: INTERVENTIONS 1. Complete Neurological assessment as indicated/ordered 2. Initiate measures to prevent increased intracranial pressure 3. Monitor and assess patient's level of consciousness, motor function, sensory function, and levelof assistance needed for ADLs 4. Monitor and [...] and report duration and description of seizure toLIP 10. If seizure occurs, turn patient to [...] supplement as ordered 13. Collaborate with clinical filterer 14. Include patient/ patient's outside dealer sales representative in decisions related to nutrition Outcome: Completed Note: Evaluation of progress towards goal: Nutritional intake is adequate [facility]02-03-[facility] Progress note* Discharge Planning Note - MILLIE Call - 06/10/2024 11:42 AM EST DISCHARGE PLANNING NOTE Case discussed in daily [...] home at discharge. Social work offering to contactdaughter to inform of therapy recommendations but patient would not give permission. Wait patient decision regarding transition plan. Patient will not require precert for placement. CN will continue to follow and is available should any further needs arise. - MILLIE CALL 06/10/24 11:43 AM [place]N [place] [facility] [employer] [id number] Plan of care note* Plan of Care - Georgina Guillaume - 06/10/2024 9:55 AM EST Problem: Pain Goal: Patient goal is pain score less than 4, able to rest, and participant in treatment plan as appropriate Description: INTERVENTIONS: 1. Encourage patient or legal outside dealer sales representative to report early pain and ask [...] per policy 9. Teach patient or legal outside dealer sales representative interventions for comforting Outcome: Progressing Note: [...] at the bedside 7. Instruct patient/ patient outside dealer sales representative about use of safety devices 8. Include patient/ patient outside dealer sales representative in decisions related to safety Outcome: [...] hygiene technique. 7. Identify and instruct patient/patient outside dealer sales representative in use of appropriate isolation precautionsfor identified infection/symptoms. 8. Provide and discuss with patient/patient outside dealer sales representative on educational MDRO sheet. 9. Encourage and monitor nutritional status daily and consult filterer if indicated. 10. Implement neutropenic guidelines as needed. Outcome: Progressing Note: Evaluation of progress towards goal: Patient has remained free from infection during hospitalstay. Patient is afebrile and last WBC was 6.7. Will continue using standard precautions and monitoring for signs and symptoms of infection. Problem: Knowledge Deficit Goal: Patient/patient outside dealer sales representative demonstrates understanding of disease process, treatment plan,medications, and discharge instructions Description: INTERVENTIONS 1. Complete [...] supplement as ordered 13. Collaborate with clinical filterer 14. Include patient/ patient's outside dealer sales representative in decisions related to nutrition Outcome: Progressing Note: Evaluation of progress towards goal: Patient appears to have adequate nutritional intake. Problem: Moderate - High Risk Fall Score Description: [place] Fall Score of =/> 25 or indicated by [facility] Assessment Goal: Patient should be free from fall Description: Interventions: 1. [place] to environment 2. Hourly rounds addressing the [...] non-skid footwear 11. Teach patient and patient outside dealer sales representative to maintain environment for safety and [...] (cane, walker) within reach 19. Request patient outside dealer sales representative bring adaptive equipment/mobility aids from home or obtain and provide as needed 20. Consult pharmacy regarding effects of med's affecting mobility, cognition, and alternatives 21. Obtain physician order for PT if risk factors associated with mobility are present 22. Obtain physician order for OT as appropriate 23. Utilize diversional activities 24. Educate patient and patient outside dealer sales representative how to maintain a safe environment during visitationtimes (notify nurse prior to leaving bedside) 25. Consider appropriateness of medical or non-medical records secretary 26. Set up voiding schedule as appropriate [...] of consciousness, motor function, sensory function, and levelof assistance needed for ADLs 4. Monitor and [...] and report duration and description of seizure toLIP 10. If seizure occurs, turn patient to [...] - Rebecca Arredondo RN 06/10/24 11:38 AM [facility] [employer] [id number] Nurse Note* Rola Burrell RN - 06/10/2024 6:34 AM ESTSummary: [place] Patients arenas was pulled on 06/09/24 [...] it kept coiling and would not advance. [employer] messaged person insect control inspector for urology at 0521. Was not read, no response. Then paged urology at 0630. Waiting for response - Rola Burrell RN 06/10/24 6:37 AM [facility] [employer] [id number] Plan of care note* Plan of Care - Rola Burrell RN - 06/10/2024 1:53 AM EST Problem: Pain Goal: Patient goal is pain score less than 4, able to rest, and participant in treatment plan as appropriate Description: INTERVENTIONS: 1. Encourage patient or legal outside dealer sales representative to report early pain and ask [...] per policy 9. Teach patient or legal outside dealer sales representative interventions for comforting Outcome: Progressing Note: Evaluation of progress towards goal: Patient encouraged to report pain occurrence. Pain to beassessed using 0-10 scale. Pain control with scheduled [...] at the bedside 7. Instruct patient/ patient outside dealer sales representative about use of safety devices 8. Include patient/ patient outside dealer sales representative in decisions related to safety Outcome: [...] hygiene technique. 7. Identify and instruct patient/patient outside dealer sales representative in use of appropriate isolation precautionsfor identified infection/symptoms. 8. Provide and discuss with patient/patient outside dealer sales representative on educational MDRO sheet. 9. Encourage and monitor nutritional status daily and consult filterer if indicated. 10. Implement neutropenic guidelines as needed. Outcome: Progressing Note: Evaluation of progress towards goal: Merchandise Distributor assessed pt risk for infection in the beginning and throughout shift. Pt remains afebrile. Will continue to monitor. Problem: Knowledge Deficit Goal: Patient/patient outside dealer sales representative demonstrates understanding of disease process, treatment plan,medications, and discharge instructions Description: INTERVENTIONS 1. Complete learning assessment and assess knowledge base 2. Provide teaching at level of understanding 3. Provide teaching via preferred learning method(s) Outcome: Progressing Note: Evaluation of progress towards goal: Merchandise Distributor educated pt on admission disease, medications, treatment, [...] and patient informed of care and progression ofstay, included in plan of care and discharge [...] patient is encouraged to reposition self, pillow supportis provided Goal: Patient's nutritional intake is adequate [...] supplement as ordered 13. Collaborate with clinical filterer 14. Include patient/ patient's outside dealer sales representative in decisions related to nutrition Outcome: [...] Moderate - High Risk Fall Score Description: [place] Fall Score of =/> 25 or indicated by [facility] Assessment Goal: Patient should be free from fall Description: Interventions: 1. [place] to environment 2. Hourly rounds addressing the [...] non-skid footwear 11. Teach patient and patient outside dealer sales representative to maintain environment for safety and [...] (cane, walker) within reach 19. Request patient outside dealer sales representative bring adaptive equipment/mobility aids from home or obtain and provide as needed 20. Consult pharmacy regarding effects of med's affecting mobility, cognition, and alternatives 21. Obtain physician order for PT if risk factors associated with mobility are present 22. Obtain physician order for OT as appropriate 23. Utilize diversional activities 24. Educate patient and patient outside dealer sales representative how to maintain a safe environment during visitationtimes (notify nurse prior to leaving bedside) 25. Consider appropriateness of medical or non-medical records secretary 26. Set up voiding schedule as appropriate (every 2 hours) Outcome: Progressing Note: Evaluation of progress towards goal: Merchandise Distributor assessed pt fall precautions in the beginning andthroughout shift. Pt room left free of clutter, pt has all belongings and call light within reach. Will continue to monitor. Problem: Neurological Deficit Goal: Neurological status is stable or improving Description: Patient's goal is: INTERVENTIONS 1. Complete Neurological assessment as indicated/ordered 2. Initiate measures to prevent increased intracranial pressure 3. Monitor and assess patient's level of consciousness, motor function, sensory function, and levelof assistance needed for ADLs 4. Monitor and [...] and report duration and description of seizure toLIP 10. If seizure occurs, turn patient to [...] patients mentation waxes and wanes. Neuro assessments Q4hrs. [facility]02-02-[facility]25 Plan of care note* Plan of Care - Galina Eaton RN - 06/09/2024 6:46 PM EST Problem: Pain Goal: Patient goal is pain score less than 4, able to rest, and participant in treatment plan as appropriate Description: INTERVENTIONS: 1. Encourage patient or legal outside dealer sales representative to report early pain and ask [...] per policy 9. Teach patient or legal outside dealer sales representative interventions for comforting Outcome: Progressing Note: [...] at the bedside 7. Instruct patient/ patient outside dealer sales representative about use of safety devices 8. Include patient/ patient outside dealer sales representative in decisions related to safety Outcome: [...] hygiene technique. 7. Identify and instruct patient/patient outside dealer sales representative in use of appropriate isolation precautionsfor identified infection/symptoms. 8. Provide and discuss with patient/patient outside dealer sales representative on educational MDRO sheet. 9. Encourage and monitor nutritional status daily and consult filterer if indicated. 10. Implement neutropenic guidelines as [...] Score of =/> 25 or indicated by [facility] Assessment Goal: Patient should be free from fall Description: Interventions: 1. [place] to environment 2. Hourly rounds addressing the [...] non-skid footwear 11. Teach patient and patient outside dealer sales representative to maintain environment for safety and [...] (cane, walker) within reach 19. Request patient outside dealer sales representative bring adaptive equipment/mobility aids from home or obtain and provide as needed 20. Consult pharmacy regarding effects of med's affecting mobility, cognition, and alternatives 21. Obtain physician order for PT if risk factors associated with mobility are present 22. Obtain physician order for OT as appropriate 23. Utilize diversional activities 24. Educate patient and patient outside dealer sales representative how to maintain a safe environment during visitationtimes (notify nurse prior to leaving bedside) 25. Consider appropriateness of medical or non-medical records secretary 26. Set up voiding schedule as appropriate (every 2 hours) Outcome: Progressing Note: Evaluation of progress towards goal: fall precautions maintaind Problem: Neurological Deficit Goal: Neurological status is stable or improving Description: Patient's goal is: INTERVENTIONS 1. Complete Neurological assessment as indicated/ordered 2. Initiate measures to prevent increased intracranial pressure 3. Monitor and assess patient's level of consciousness, motor function, sensory function, and levelof assistance needed for ADLs 4. Monitor and [...] and report duration and description of seizure toLIP 10. If seizure occurs, turn patient to [...] goal: wax/wane with mentation. Q4 neuros checked [facility]02-02-2025 Progress note* PT/OT/PRINT SHOP STENOGRAPHER - JERMAN Jay/Bartolome - 06/09/2024 12:07 PM EST Occupational Therapy Evaluation Discharge Recommendations OT Recommendations : [facility] SNF/ECF Comments: Recommend SNF for continued therapy to reach PLOF. Pt at a high risk of falls andunsafe to return home alone. 6 Clicks: Daily [...] History: Diagnosis Date Abnormal EKG Atrial fibrillation ([facility]) Back pain Bradycardia Chronic atrial fibrillation ([facility]) Hypertension Hypertensive heart disease without heart failure Hypokalemia Pure hypercholesterolemia Urinary tract infection 01/2019 seen by [facility] No past surgical history on file. OT [...] mobility guidelines Equipment: Gait belt, RW, arenas Telemetry/Cardiovascular Lab Director: Yes Oxygen Used: Room air Other: High [...] in back. Total assistance to don socks whilesupine. Home Management - IADL Other: Pt donne gown at bedside with assistance to tie in back. Total assistance to don socks whilesupine. Hearing / Speech / Vision Hearing: Within [...] Patient will perform bed mobility with Modified [place] Dates: Start: 06/09/24 Expected End: 07/07/24 Description: Goal Description: Disciplines: OT Problem: Cognition Dates: Start: 06/09/24 Disciplines: OT Goal: Patient's goal is: (specify details) Dates: Start: 06/09/24 Expected End: 07/07/24 Description: Pt will demonstrate good safety awareness 100% of the time Disciplines: OT Problem: Functional Mobility Dates: Start: 06/09/24 Disciplines: OT Goal: Patient will perform functional mobility with Modified [place] Dates: Start: 06/09/24 Expected End: 07/07/24 Description: [...] Goal: Patient will perform transfers with Modified [place] Dates: Start: 06/09/24 Expected End: 07/07/24 Description: Goal Description: Disciplines: OT Occupational Therapy Care Plan (Resolved) There are no resolved problems. Principal Problem: Acute encephalopathy [facility]02-02[facility] Progress note* PT/OT/PRINT SHOP STENOGRAPHER - Sadie Sim PT - 06/09/2024 11:21 AM EST Physical Therapy Evaluation Discharge Recommendations PT Recommendations: [facility] SNF/ECF Comments: pt will need SNF [...] status decline resulting from admission 06/07/24 from [facility] where he went with afib with RVR and altered mentalstatus. MRI brain without acute findings but chronic infarct post R frontal lobe. Neuro stroke consulted and recommended transfer to [facility]. Diagnosed with acute encphalopathy, afib with RVR (resolved),alcohol use disorder with CIWA protocol, hyperbilirubinemia with consult to general surgery (no surgery indicated). Consult GI for cirrhosis and to f/u as outpatient. Urology consult for urinary retention. Fell in the night, hit head; CT with B subdural fluid collection/hygromas and neurosurgery con sulted with no surgery indicated. No chief complaint on file. Past Medical History: Diagnosis Date Abnormal EKG Atrial fibrillation ([facility]) Back pain Bradycardia Chronic atrial fibrillation ([facility]) Hypertension Hypertensive heart disease without heart failure Hypokalemia Pure hypercholesterolemia Urinary tract infection 01/2019 seen by [facility] No past surgical history on file. PT [...] to see Equipment: RW, gait belt, catheter Telemetry/Cardiovascular Lab Director: Yes Oxygen Used: room air Other: pt [...] Patient will perform bed mobility with Modified [place] Dates: Start: 06/09/24 Expected End: 06/23/24 Description: Goal Description: Disciplines: PT Problem: Gait Dates: Start: 06/09/24 Disciplines: PT Goal: Patient will perform gait with Modified [place] Dates: Start: 06/09/24 Expected End: 06/23/24 Description: [...] Goal: Patient will perform transfers with Modified [place] Dates: Start: 06/09/24 Expected End: 06/23/24 Description: Goal Description: Disciplines: PT Physical Therapy Care Plan (Resolved) There are no resolved problems. Principal Problem: Acute encephalopathy [employer] [id number] Progress note* Query Response - Vira Abreu, SUPERVISOR HISTOLOGY-WATCHMAKER APPRENTICE - 06/09/2024 9:09 AM EST Query Response Note AUTOMATED QUERY TEXT: Stage of Chronic Kidney Disease: This query seeks further clarification of documentation to reflectall conditions that you are monitoring, evaluating, treating [...] signed by: Vira SILVESTRE 06/09/2024 9:07 AM [employer] [facility] Work Phone: [phone] 301-796902-01-2025 Consult note* Will Renee, NIRMALA - 06/08/2024 7:43 PM ESTAssociated Order(s): IP CONSULT TO NEUROSURGERY Images from the original note were not included. [facility] [address] [place] [address], [address] [place] [address] * NEUROSURGERY CONSULT NOTE DATE:06/08/2024 PATIENT'S NAME: Johnathan Rodney PATIENT'S PATIENT'S : 1955 NEUROSURGERY ATTENDING: Cherise REASON FOR CONSULT Bilateral subdural fluid collections HISTORY OF PRESENT ILLNESS Johnathan Rodney is a 68 y.o. male who presented originally to [facility] on 06/07 for altered mental status and acute encephalopathy. He has a hx of Afib on eliquis, alcohol use disorder (daughter reports his drinking has decreased significantly and he averages about 2 cans of beer daily), and hyp erbilirubinemia. Per daughter, he was found at home yesterday crawling on the floor with garbled speech. She also reports a 2 week history of hallucinations. His CT brain on arrival was negative for acute processes but did reveal possible old infarcts. Overnight, the patient attempted to get out of bed and struck his head. He was on a heparin drip atthat time. No LOC reported. Neurosurgery was consulted due to CT findings demonstrating bilateral frontal subdural fluid collections. Upon exam, patient is awake and alert. He is oriented to person, place, and time. Would not answer why he was in the hospital. He is following commands appropriately and denies neck pain, PERDOMO, nausea,vomiting, numbness, tingling. ALLERGIES No Known Allergies MEDICATIONS [...] OR LORazepam (ATIVAN) injection 1 mg, 1 mg,intravenous, Q4H PRN OR LORazepam (ATIVAN) injection 1 mg, 1 mg, intramuscular, Q4H PRN, Roseline Reyez MD LORazepam (ATIVAN) tablet 2 mg, 2 mg, oral, Q4H PRN OR LORazepam (ATIVAN) injection 2 mg, 2 mg,intravenous, Q4H PRN OR LORazepam (ATIVAN) injection 2 mg, 2 mg, intramuscular, Q4H PRN, Roseline Reyez MD LORazepam (ATIVAN) tablet 3 mg, 3 mg, oral, Q4H PRN OR LORazepam (ATIVAN) injection 3 mg, 3 mg,intravenous, Q4H PRN OR LORazepam (ATIVAN) injection 3 mg, 3 mg, intramuscular, Q4H PRN, Roseline Reyez MD magnesium sulfate IVPB 2000 mg/50 mL in iso-osmotic water (40 mg/mL premix), 2,000 mg, intravenous,PRN, Aureliano Garduno DO, Stopped at 06/07/24 1411 [...] Aureliano Garduno DO, Stopped at 06/08/24 1017 dmrwsbdo-amqp-LJ-calcium &mins (THERAGRAN-M) 9 mg iron-400 mcg tablet 1 tablet, 1 tablet, oral,Daily PRN, Aureliano Garduno, DO potassium chloride (K-TAB,KLOR-CON) CR tablet 20-40 mEq, 20-40 mEq, oral, PRN, 20 mEq at 06/08/24 1216 OR potassium chloride (KAYCIEL) 20 mEq/15 mL solution 20-40 mEq, 20-40 mEq, oral, PRN ORpotassium chloride IVPB 10 mEq/100 mL in water [...] hypercholesterolemia Urinary tract infection 01/2019 seen by [facility] No past surgical history on [...] on prior; consider MRI follow-up. No convincing intracranialhemorrhage.. SOFT TISSUES and ORBITS: Orbits are unremarkable. [...] - Neurosurgery will continue to follow NABILA [facility] Please contact via Orbiter first then can utilize Patient touch/[employer]oc[employer]Edge if needed 06/08/24 8:03 PM To find out which JAK is on for the day please go to [employer] and use log in [employer] and search for [facility] (JAK and Phone Number is listed) - NIRMALA BEEBE 06/08/24 7:44 PM NIRMALA Beebe 06/08/242003 [facility] [employer] [id number] Consult note* NIRMALA Beebe - 06/08/2024 7:43 PM ESTAssociated Order(s): IP CONSULT TO NEUROSURGERY Images from the original note were not included. [facility] [address] [place] [address], [address] [place] [address] * NEUROSURGERY CONSULT NOTE DATE:06/08/2024 PATIENT'S NAME: Johnathan Rodney PATIENT'S PATIENT'S : 1955 NEUROSURGERY ATTENDING: Cherise REASON FOR CONSULT Bilateral subdural fluid collections HISTORY OF PRESENT ILLNESS Johnathan Rodney is a 68 y.o. male who presented originally to [facility] on 06/07 for altered mental status and acute encephalopathy. He has a hx of Afib on eliquis, alcohol use disorder (daughter reports his drinking has decreased significantly and he averages about 2 cans of beer daily), and hyp erbilirubinemia. Per daughter, he was found at home yesterday crawling on the floor with garbled speech. She also reports a 2 week history of hallucinations. His CT brain on arrival was negative for acute processes but did reveal possible old infarcts. Overnight, the patient attempted to get out of bed and struck his head. He was on a heparin drip atthat time. No LOC reported. Neurosurgery was consulted due to CT findings demonstrating bilateral frontal subdural fluid collections. Upon exam, patient is awake and alert. He is oriented to person, place, and time. Would not answer why he was in the hospital. He is following commands appropriately and denies neck pain, PERDOMO, nausea,vomiting, numbness, tingling. ALLERGIES No Known Allergies MEDICATIONS [...] OR LORazepam (ATIVAN) injection 1 mg, 1 mg,intravenous, Q4H PRN OR LORazepam (ATIVAN) injection 1 mg, 1 mg, intramuscular, Q4H PRN, Roseline Reyez MD LORazepam (ATIVAN) tablet 2 mg, 2 mg, oral, Q4H PRN OR LORazepam (ATIVAN) injection 2 mg, 2 mg,intravenous, Q4H PRN OR LORazepam (ATIVAN) injection 2 mg, 2 mg, intramuscular, Q4H PRN, Roseline Reyez MD LORazepam (ATIVAN) tablet 3 mg, 3 mg, oral, Q4H PRN OR LORazepam (ATIVAN) injection 3 mg, 3 mg,intravenous, Q4H PRN OR LORazepam (ATIVAN) injection 3 mg, 3 mg, intramuscular, Q4H PRN, Roseline Reyez MD magnesium sulfate IVPB 2000 mg/50 mL in iso-osmotic water (40 mg/mL premix), 2,000 mg, intravenous,PRNAureliano DO, Stopped at 06/07/24 1411 magnesium sulfate IVPB 4000 mg/100 mL in iso-osmotic water (40 mg/mL premix), 4,000 mg, intravenous, PRN, Aureliano Garduno DO, Stopped at 06/07/24 1805 melatonin (CIRCADIN) tablet 5 mg, 5 mg, oral, Nightly, Alborz Sherafati, MD, 5 mg at 06/07/242012 metoprolol (LOPRESSOR) injection 5 mg, 5 mg, intravenous, Q6H PRN, Roseline Reyez MD, 5 mg at 06/08/241749 metroNIDAZOLE (FLAGYL) IVPB 500 mg/100 mL in iso-osmotic sodium chloride (5 mg/mL premix), 500 mg, intravenous, Q12H, Aureliano Garduno DO, Stopped at 06/08/24 1017 nmkbahqm-zjxt-CB-calcium &mins (THERAGRAN-M) 9 mg iron-400 mcg tablet 1 tablet, 1 tablet, oral,Daily PRN, Aureliano Garduno DO potassium chloride (K-TAB,KLOR-CON) CR tablet 20-40 mEq, 20-40 mEq, oral, PRN, 20 mEq at 06/08/24 1216 OR potassium chloride (KAYCIEL) 20 mEq/15 mL solution 20-40 mEq, 20-40 mEq, oral, PRN ORpotassium chloride IVPB 10 mEq/100 mL in water (0.1 mEq/mL premix), 10 mEq, intravenous, PRN, Aureliano Martinezs, DO QUEtiapine (SEROquel) tablet 25 mg, 25 mg, oral, Nightly, Shavonne Holbrook MD, 25 mg at 06/07/242012 sodium chloride 0.9 % flush 3 mL, 3 mL, intravenous, PRN, Aureliano Martinezs, DO sodium chloride 0.9 % flush 3 mL, 3 mL, intravenous, Q12H TONY, uAreliano Garduno DO, 3 mL at 06/07/242020 sodium chloride 0.9 % flush bag, 25 mL, intravenous, PRN, Aureliano Martinezs, DO sodium chloride 0.9 % infusion, 20 mL/hr, intravenous, Continuous PRN, Aureliano Garduno DO tamsulosin (FLOMAX) 24 hr capsule 0.4 mg, 0.4 mg, oral, Nightly, Corey Wade MD thiamine HCl (VITAMIN B-1) tablet 100 mg, 100 mg, oral, Daily, Aureliano Garduno DO, 100 mg at 06/08/24 0918 PAST MEDICAL AND SURGICAL HISTORY Past Medical History: Diagnosis Date Abnormal EKG Atrial fibrillation (CMS-HCC) Back pain Bradycardia Chronic atrial fibrillation (CMS-HCC) Hypertension Hypertensive heart disease without heart failure Hypokalemia Pure hypercholesterolemia Urinary tract infection 01/2019 seen by [facility] No past surgical history on file. FAMILY [...] on prior; consider MRI follow-up. No convincing intracranialhemorrhage.. SOFT TISSUES and ORBITS: Orbits are unremarkable. [...] [facility] Please contact via Orbiter first then can utilize Patient touch/[employer]oceraEdge if needed 06/08/24 8:03 PM To find out which JAK is on for the day please go to [employer] and use log in [employer] and search for [facility] Neuro[facility] (JAK and Phone Number is listed) - WILL RENEE APRN-WATCHMAKER APPRENTICE 06/08/24 7:44 PM NIRMALA Beebe 06/08/242003 * KRYSTYNA Mendoza - 06/07/2024 8:59 AM ESTAssociated Order(s): IP CONSULT TO UROLOGY Images from the original note were not included. Urology Consultation Patient: Johnathan Rodney Date of : 1955 CHIEF COMPLAINT: right hydronephrosis HISTORY OF PRESENT ILLNESS: The patient is a 68 y.o. male who presents as a transfer in from [facility]. Paper records available in hard chart. [...] month ago. He is on Eliquis at home.Denies any abdominal pain, no LUTS. According to [facility] records, the family says he reportedly had some abdominal pain when he came in. Denies ever seeing a urologist, no hx of nephrolithiasis in the past. Patient's old records, notes and chart reviewed and summarized above. Past Medical History: Past Medical History: Diagnosis Date Abnormal EKG Atrial fibrillation ([facility]) Back pain Bradycardia Chronic atrial fibrillation ([facility]) Hypertension Hypertensive heart disease without heart failure Hypokalemia Pure hypercholesterolemia Urinary tract infection 01/2019 seen by [facility] Past Surgical History: No past surgical history [...] LORazepam OR LORazepam magnesium sulfate magnesium sulfate ieaifviz-sveh-OH-calcium &mins potassium chloride OR potassium chloride OR [...] Jin MD at 06/10/2024 2:41 PM EST * iRchardson Brandt DO - 06/07/2024 8:44 AM ESTAssociated Order(s): IP CONSULT TO GASTROENTEROLOGY [facility] Initial Gastroenterology/Hepatology Consultation Note IDENTIFYING DATA PATIENT: Johnathan Rodney ADMIT DATE: 06/07/2024 TIME OF EVALUATION: 06/07/2024 8:45 AM Reason for Consult: eval for cirrhosis Requesting Physician: Shawanda Yañez HISTORY OF PRESENT ILLNESS Johnathan Rodney is a 68 y.o. male with a PMH of AFib on Eliquis, HTN, CKD, chronic systolic HF, heavy alcohol use, marijuana use admitted with encephalopathy after presenting to [facility] with altered mental status and hallucinations. Patient [...] hypercholesterolemia Urinary tract infection 01/2019 seen by [facility] No past surgical history on file. Family [...] TOTAL) BY MOUTH 3 (THREE) TIMES A DAY.270 tablet 3 Past Week labetaloL (NORMODYNE) 200 [...] TABLETS BY MOUTH EVERY DAY 180 tablet 1Past Week Current Medications: Current Facility-Administered Medications: acetaminophen (TYLENOL) tablet 650 mg, 650 mg, oral, Q4H PRN, Aureliano Garduno DO cefTRIAXone (ROCEPHIN) IVPB 1000 mg/50 mL in iso-osmotic dextrose (20 mg/mL premix), 1,000 mg, intravenous, Q24H, Aureliano Garduno, dextrose (GLUTOSE) 40 % gel 15 g, [...] OR LORazepam (ATIVAN) injection 1 mg, 1 mg,intravenous, Q1H PRN OR LORazepam (ATIVAN) injection 1 mg, 1 mg, intramuscular, Q1H PRN, Aureliano Patino, LORazepam (ATIVAN) tablet 2 mg, 2 mg, oral, Q1H PRN OR LORazepam (ATIVAN) injection 2 mg, 2 mg,intravenous, Q1H PRN OR LORazepam (ATIVAN) injection 2 mg, 2 mg, intramuscular, Q1H PRN, Aureliano Patino, DO LORazepam (ATIVAN) tablet 3 mg, 3 mg, oral, Q1H PRN OR LORazepam (ATIVAN) injection 3 mg, 3 mg,intravenous, Q1H PRN OR LORazepam (ATIVAN) injection 3 mg, 3 mg, intramuscular, Q1H PRN, Aureliano Zacariass, DO LORazepam (ATIVAN) tablet 4 mg, 4 mg, oral, Q1H PRN OR LORazepam (ATIVAN) injection 4 mg, 4 mg,intravenous, Q1H PRN OR LORazepam (ATIVAN) injection 4 mg, 4 mg, intramuscular, Q1H PRN, Aureliano Zacariass, DO magnesium sulfate IVPB 2000 mg/50 mL in iso-osmotic water (40 mg/mL premix), 2,000 mg, intravenous,PRN, Aureliano Martinezs, DO magnesium sulfate IVPB 4000 mg/100 mL in iso-osmotic water (40 mg/mL premix), 4,000 mg, intravenous, PRN, Aureliano M Laureen, DO metroNIDAZOLE (FLAGYL) IVPB 500 mg/100 mL in iso-osmotic sodium chloride (5 mg/mL premix), 500 mg, intravenous, Q12H, Aureliano Katie Laureen, DO, Stopped at 06/07/24 0733 phupfdpx-bkey-KI-calcium &mins (THERAGRAN-M) 9 mg iron-400 mcg tablet 1 tablet, 1 tablet, oral,Daily PRN, Aureliano M Laureen, DO potassium chloride (K-TAB,KLOR-CON) CR tablet 20-40 mEq, 20-40 mEq, oral, PRN OR potassium chloride (KAYCIEL) 20 mEq/15 mL solution 20-40 mEq, 20-40 mEq, oral, PRN OR potassium chloride IVPB 10 mEq/100 mL in water (0.1 mEq/mL premix), 10 mEq, intravenous, PRN, Aureliano Wilson Laureen, DO sodium chloride 0.9 % flush 3 mL, 3 mL, intravenous, PRN, Aureliano M Laureen, DO sodium chloride 0.9 % flush 3 mL, 3 mL, intravenous, Q12H TONY, Aureliano Katie Laureen, DO sodium chloride 0.9 % flush bag, 25 mL, intravenous, PRN, Aureliano M Laureen, DO sodium chloride 0.9 % infusion, 20 mL/hr, intravenous, Continuous PRN, Aureliano M Laureen, DO thiamine HCl (VITAMIN B-1) tablet 100 mg, 100 mg, oral, Daily, Aureliano Katie Laureen, DO, 100 mg at 06/07/24 0634 [...] mg, PRN magnesium sulfate, 4,000 mg, PRN kcfuyxvq-llsd-ZM-calcium &mins, 1 tablet, Daily PRN potassium chloride, [...] is at hospital but thinks he is stillin [facility], NAD HEENT: Normocephlic, Atraumatic, No sclera icterus CV: [...] - 5 /hpf IMAGING: Abdominal US at [facility] on 06/06/2024- showed normal liver ASSESSMENT AND PLAN Johnathan Rodney is a 68 y.o. male with a PMH of AFib on Eliquis, HTN, CKD, chronic systolic HF, heavy alcohol use, marijuana use admitted with encephalopathy after presenting to [facility] with altered mental status and hallucinations. Reported [...] the care of Johnathan Rodney. NIRMALA Smith [facility] [place] [id number] PH: [phone] NIRMALA Jara 06/07/24 1316 NIRMALA Jara 06/07/24 1316 Attending Attestation: Level of Participation Examined and discussed the patient with JAK Agreement I agree with the JAK's management. Attending Note I reviewed the JAK'sdocumentation and agree with the findings, assessment and plan Richardson Brandt D.O. [facility] [address] [address] PH: [phone] * Demetria Keller DO - 06/07/2024 8:12 AM ESTAssociated Order(s): IP CONSULT TO GENERAL SURGERY Images [...] and marijuana use who was transferred to [facility] from [facility] for encephalopathy with questionable hallucination, and hyperbilirubinemia. [...] History: Diagnosis Date Abnormal EKG Atrial fibrillation ([facility]) Back pain Bradycardia Chronic atrial fibrillation ([facility]) Hypertension Hypertensive heart disease without heart failure Hypokalemia Pure hypercholesterolemia Urinary tract infection 01/2019 seen by [facility] No past surgical history on file. No Known Allergies Current Facility-Administered Medications: acetaminophen (TYLENOL) tablet 650 mg, 650 mg, oral, Q4H PRN, Aureliano Wilson Abalos, DO cefTRIAXone (ROCEPHIN) IVPB 1000 mg/50 mL in iso-osmotic dextrose (20 mg/mL premix), 1,000 mg, intravenous, Q24H, Aureliano Wilson Abalos, DO dextrose (GLUTOSE) 40 % gel 15 g, 15 g, oral, PRN, Aureliano Wilson Abalos, DO dextrose 5 % (D5W) infusion, 100 mL/hr, intravenous, Continuous PRN, Aureliano M Laureen, DO dextrose 50 % in water [...] OR LORazepam (ATIVAN) injection 1 mg, 1 mg,intravenous, Q1H PRN OR LORazepam (ATIVAN) injection 1 mg, 1 mg, intramuscular, Q1H PRN, Aureliano MAbalos, DO LORazepam (ATIVAN) tablet 2 mg, 2 mg, oral, Q1H PRN OR LORazepam (ATIVAN) injection 2 mg, 2 mg,intravenous, Q1H PRN OR LORazepam (ATIVAN) injection 2 mg, 2 mg, intramuscular, Q1H PRN, Aureliano MAbalos, DO LORazepam (ATIVAN) tablet 3 mg, 3 mg, oral, Q1H PRN OR LORazepam (ATIVAN) injection 3 mg, 3 mg,intravenous, Q1H PRN OR LORazepam (ATIVAN) injection 3 mg, 3 mg, intramuscular, Q1H PRN, Aureliano MAbalos, DO LORazepam (ATIVAN) tablet 4 mg, 4 mg, oral, Q1H PRN OR LORazepam (ATIVAN) injection 4 mg, 4 mg,intravenous, Q1H PRN OR LORazepam (ATIVAN) injection 4 mg, 4 mg, intramuscular, Q1H PRN, Aureliano MAbalos, DO magnesium sulfate IVPB 2000 mg/50 mL in iso-osmotic water (40 mg/mL premix), 2,000 mg, intravenous,PRN, Aureliano M Laureen, DO magnesium sulfate IVPB 4000 mg/100 mL in iso-osmotic water (40 mg/mL premix), 4,000 mg, intravenous, PRN, Aureliano M Laureen, DO metroNIDAZOLE (FLAGYL) IVPB 500 mg/100 mL in iso-osmotic sodium chloride (5 mg/mL premix), 500 mg, intravenous, Q12H, Aureliano M Laureen, DO, Stopped at 06/07/24 0733 wbkdqgpa-blgw-LA-calcium &mins (THERAGRAN-M) 9 mg iron-400 mcg tablet 1 tablet, 1 tablet, oral,Daily PRN, Aureliano M Laureen, DO potassium chloride [...] and marijuana use who was transferred to [facility] from [facility] with AMS and hyperbilirubinemia. General surgery consulted for GBUS findings of acute vs. chronic cholecystitis, however the pt denies any abdominal pain, hxof postprandial pain, and has no TTP. Given the pts history and physical exam, unfortunately, it ismore likely that the patients findings could be [...] 8:12 AM General Surgery C 6a-6p pager #[phone] 6p-6a pager #[phone] Cosigned by Nicolas Wells MD at 06/07/2024 9:30 PM EST Associated attestation - Nicolas Wells MD - 06/07/2024 9:30 PM EST Attending Attestation: I saw the patient. I performed the critical/leonardo portions of the service. I was directly involved inthe management and treatment plan of the patient. I reviewed the resident's note. Additional Notes/Findings: Patient with history of EtOH use. He presents with elevated liver enzymes. MRCP without any signficant biliary ductal dilation. There is sludge within the gallbladder. Elevated liver enzymes - unclear etiology. Doubt gallbladder etiology. Nicolas Wells MD, FACS General Surgery and Minimally Invasive Surgery [address], [address] [place] [address] Office: * Marii Potter MD - 06/07/2024 5:36 AM ESTAssociated Order(s): IP CONSULT TO NEUROLOGY Images from the original note were not included. [facility] Neurology General Neurology Consultation Note Consult Neurology Service: [phone] Primary Team: [facility] Chief Complaint and Reason for Consultation: Altered mental status and hallucinations History: Johnathan Rodney is a 68 y.o. year old male for whom Neurology was consulted for chief complaint ofaltered mental status and hallucinations. Patient has a [...] occult infection. Patient was then transferred to [facility] for further evaluation. On initial examination, patient [...] disease without heart failure Chronic atrial fibrillation ([facility]) Abnormal EKG Bradycardia Syncope 09/15/2017 Resolved Ambulatory Problems Diagnosis Date Noted Hypertension Past Medical History: Diagnosis Date Atrial fibrillation ([facility]) Back pain Urinary tract infection 01/2019 Family [...] 15 g, 15 g, oral, PRN, Aureliano Martienzs, DO dextrose 5 % (D5W) infusion, 100 [...] time. Memory: Patient appears to have lapses inretrograde memory.. Speech is normal. Language is fluent [...] pathological reflexes: Ankle clonus absent. Coordination Right: Jhwasn-ts-hsej normal.Left: Yrdcmo-td-mwro normal. Gait Deferred. Objective Pertinent Labs: No results found for this or any previous visit (from the past 72 hours). Imaging: No results found. Other Testing: PROBLEM LIST: Patient Active Problem List Diagnosis Pure hypercholesterolemia Hypokalemia Hypertensive heart disease without heart failure Chronic atrial fibrillation ([facility]) Abnormal EKG Bradycardia Syncope Acute encephalopathy Assessment: Johnathan Rodney is a 68 y.o. year old male for whom Neurology was consulted for chief complaint ofaltered mental status and hallucinations. Patient has a [...] Signed by Marii Potter MD Neurology Resident, [facility] Please contact via secure chat Staffed with: Dr. Marie This patient is being followed by the Neurology Resident service. Contact attending directly during these hours: Monday to 7:30-8:30 A.M. to Monday 12-1:00 p.m. Primary Neurology service: [phone] Consult neurology service: [phone] Resident Stroke Service: [phone] If the patient belongs to the Stroke [...] for: EAG Lab Results Component Value Date [id number] >1,500 (H) 06/07/2024 Neurological work up: CT head CTA head and neck MRI brain 2 D echo Assessment and recommendations Delirium Hypertension RADHA AFib with RVR Electrolytes imbalance Acute urinary retention Alcoholism Upon examination patient is awake, oriented to self, following commands in his almost close to backto baseline. No focal neurological deficits were noted [...] extrapolated by contextual derivation. documented in [facility] Miscellaneous Notes* Telephone Encounter - NIRMALA Kuhn - 06/08/2024 3:31 PM EST Please arrange for outpatient follow-up for a FibroScan. We are asked to see the patient in the hospital for evaluation of possible cirrhosis. * Telephone Encounter - Sana Palmer RN - 06/08/2024 3:31 PM EST Patient currently admitted. documented in [facility]St[facility]25 Telephone encounter Note* Telephone Encounter - NIRMALA Kuhn - 06/08/2024 3:31 PM EST Please arrange for outpatient follow-up for a FibroScan. We are asked to see the patient in the hospital for evaluation of possible cirrhosis. [facility] [employer] Phone: [phone]) 670-892602-01-2025 Telephone encounter Note* Telephone Encounter - Sana Palmer RN - 06/08/2024 3:31 PM EST Patient currently admitted. [facility] Plan of care note* Plan of Care - Shazia Haynes RN - 06/08/2024 11:49 AM EST Problem: Safety Goal: Patient will be injury free during hospitalization Description: INTERVENTIONS: 1. Assess patient's risk for falls and implement fall prevention plan of care per policy 2. Provide and maintain a safe environment 3. Proper use of double Identifiers 4. Medication administration using the 5 rights 5. Hand hygiene 6. Specimens are labeled at the bedside 7. Instruct patient/ patient outside dealer sales representative about use of safety devices 8. Include patient/ patient outside dealer sales representative in decisions related to safety Outcome: Progressing Note: Evaluation of progress towards goal: Patient free from injury, will continue to provide a clean environment, personal objects in reach, and a well light room Problem: Knowledge Deficit Goal: Patient/patient outside dealer sales representative demonstrates understanding of disease process, treatment plan,medications, and discharge instructions Description: INTERVENTIONS 1. Complete learning assessment and assess knowledge base 2. Provide teaching at level of understanding 3. Provide teaching via preferred learning method(s) Outcome: Progressing Note: Evaluation of progress towards goal: patient kept up to date on plan of care Problem: Moderate - High Risk Fall Score Description: Bustamante Fall Score of =/> 25 or indicated by [facility] Assessment Goal: Patient should be free from fall Description: Interventions: 1. [place] to environment 2. Hourly rounds addressing the [...] non-skid footwear 11. Teach patient and patient outside dealer sales representative to maintain environment for safety and [...] (cane, walker) within reach 19. Request patient outside dealer sales representative bring adaptive equipment/mobility aids from home or obtain and provide as needed 20. Consult pharmacy regarding effects of med's affecting mobility, cognition, and alternatives 21. Obtain physician order for PT if risk factors associated with mobility are present 22. Obtain physician order for OT as appropriate 23. Utilize diversional activities 24. Educate patient and patient outside dealer sales representative how to maintain a safe environment during visitationtimes (notify nurse prior to leaving bedside) 25. Consider appropriateness of medical or non-medical records secretary 26. Set up voiding schedule as appropriate (every 2 hours) Outcome: Progressing Note: Evaluation of progress towards goal: Patient free from injury, will continue to provide a clean environment, personal objects in reach, and a well light room [facility]02-01-2025 Progress note* PT/OT/PRINT SHOP STENOGRAPHER - Will Doyle PT - 06/08/2024 11:04 AM EST Physical Therapy PT Type of Visit: Medical deferral Reason For Medical Deferral: Medical procedure ongoing, RN deems inappropriate, Imaging results pending (pt had fall last night and is leaving for stat CT on attempt at eval. will hold at this time) [facility]01-31-2025 Nurse Note* Meaghan Lam RN - 06/07/2024 9:41 PM EST At 2114 patient bed alarm went off. [...] top of the bed. PCT stated he hitthat thing pointing to the wheel cover. Patient was able to get on hands and knees and raise self to bed with RN and Rola MANCUSO assistance. At 2119 RN called Vito BENEDICTRLucas with [facility] Team G as primary care team. Stat head CT ordered. Neuro assessment and vitals completed per RN. No neuro changes. Patient still A&O X 4, just slow to say the complete year correctly. Primary updated on assessment and Kiki MANCUSO took patient to CT. - Meaghan Lam RN 06/07/24 9:49 PM [facility]01-31-2025 Plan of care note* Plan of Care - Meaghan Lam RN - 06/07/2024 9:00 PM EST Problem: Pain Goal: Patient goal is pain score less than 4, able to rest, and participant in treatment plan as appropriate Description: INTERVENTIONS: 1. Encourage patient or legal outside dealer sales representative to report early pain and ask [...] per policy 9. Teach patient or legal outside dealer sales representative interventions for comforting Outcome: Progressing Note: Evaluation of progress towards goal: Patient encouraged to report pain occurrence. Pain to beassessed using 0-10 pain scale. Pain controled with [...] at the bedside 7. Instruct patient/ patient outside dealer sales representative about use of safety devices 8. Include patient/ patient outside dealer sales representative in decisions related to safety Outcome: [...] hygiene technique. 7. Identify and instruct patient/patient outside dealer sales representative in use of appropriate isolation precautionsfor identified infection/symptoms. 8. Provide and discuss with patient/patient outside dealer sales representative on educational MDRO sheet. 9. Encourage and monitor nutritional status daily and consult filterer if indicated. 10. Implement neutropenic guidelines as needed. Outcome: Progressing Note: Evaluation of progress towards goal: Patient has remained afebrile. WBC and vital signs monitored. Patient has not shown any additional signs of infection at this time. Problem: Knowledge Deficit Goal: Patient/patient outside dealer sales representative demonstrates understanding of disease process, treatment plan,medications, and discharge instructions Description: INTERVENTIONS 1. Complete [...] be free from fall Description: Interventions: 1. [place] to environment 2. Hourly rounds addressing the [...] non-skid footwear 11. Teach patient and patient outside dealer sales representative to maintain environment for safety and [...] (cane, walker) within reach 19. Request patient outside dealer sales representative bring adaptive equipment/mobility aids from home or obtain and provide as needed 20. Consult pharmacy regarding effects of med's affecting mobility, cognition, and alternatives 21. Obtain physician order for PT if risk factors associated with mobility are present 22. Obtain physician order for OT as appropriate 23. Utilize diversional activities 24. Educate patient and patient outside dealer sales representative how to maintain a safe environment during visitationtimes (notify nurse prior to leaving bedside) 25. Consider appropriateness of medical or non-medical records secretary 26. Set up voiding schedule as appropriate [...] of consciousness, motor function, sensory function, and levelof assistance needed for ADLs 4. Monitor and [...] and report duration and description of seizure toLIP 10. If seizure occurs, turn patient to [...] about disease process, medications, and treatment plan. Merchandise Distributor to update patient throughout the shift regarding plan of care. [facility] [id number] Plan of care note* Plan of Care - Shazia Haynes RN - 06/07/2024 2:42 PM EST Problem: Safety Goal: Patient will be injury free during hospitalization Description: INTERVENTIONS: 1. Assess patient's risk for falls and implement fall prevention plan of care per policy 2. Provide and maintain a safe environment 3. Proper use of double Identifiers 4. Medication administration using the 5 rights 5. Hand hygiene 6. Specimens are labeled at the bedside 7. Instruct patient/ patient outside dealer sales representative about use of safety devices 8. Include patient/ patient outside dealer sales representative in decisions related to safety Outcome: Progressing Note: Evaluation of progress towards goal: Patient free from injury, will continue to provide a clean environment, personal objects in reach, and a well light room Problem: Knowledge Deficit Goal: Patient/patient outside dealer sales representative demonstrates understanding of disease process, treatment plan,medications, and discharge instructions Description: INTERVENTIONS 1. Complete learning assessment and assess knowledge base 2. Provide teaching at level of understanding 3. Provide teaching via preferred learning method(s) Outcome: Not Progressing Note: Evaluation of progress towards goal: patient and patients family kept updated on plan of care Problem: Moderate - High Risk Fall Score Description: Bustamante Fall Score of =/> 25 or indicated by [facility] Assessment Goal: Patient should be free from fall Description: Interventions: 1. [place] to environment 2. Hourly rounds addressing the [...] non-skid footwear 11. Teach patient and patient outside dealer sales representative to maintain environment for safety and [...] (cane, walker) within reach 19. Request patient outside dealer sales representative bring adaptive equipment/mobility aids from home or obtain and provide as needed 20. Consult pharmacy regarding effects of med's affecting mobility, cognition, and alternatives 21. Obtain physician order for PT if risk factors associated with mobility are present 22. Obtain physician order for OT as appropriate 23. Utilize diversional activities 24. Educate patient and patient outside dealer sales representative how to maintain a safe environment during visitationtimes (notify nurse prior to leaving bedside) 25. Consider appropriateness of medical or non-medical records secretary 26. Set up voiding schedule as appropriate [...] of consciousness, motor function, sensory function, and levelof assistance needed for ADLs 4. Monitor and [...] and report duration and description of seizure toLIP 10. If seizure occurs, turn patient to [...] patient is alert to self and location. [facility] Progress note* Discharge Planning Note - Angelina Garcia RN - 06/07/2024 9:31 AM EST Images from the original note were not included. DISCHARGE PLANNING NOTE Attempted to meet with patient and he is leaving floor for imaging. Will check back as able. 12:19 Chart reviewed. Met with patient, explained role, verbalized understanding. Patient lives by himself he has lost his of 30 years which has caused him much sadness. 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 He is unable to quantify the amountof beer he drinks when asked, CIWA continues. [...] goal: Will need food box at discharge. [facility] [employer] [id number] Consult note* KRYSTYNA Mendoza - 06/07/2024 8:59 AM ESTAssociated Order(s): IP CONSULT TO UROLOGY Images from the original note were not included. Urology Consultation Patient: Johnathan Rodney Date of : 1955 CHIEF COMPLAINT: right hydronephrosis HISTORY OF PRESENT ILLNESS: The patient is a 68 y.o. male who presents as a transfer in from [facility]. Paper records available in hard chart. [...] month ago. He is on Eliquis at home.Denies any abdominal pain, no LUTS. According to [facility] records, the family says he reportedly had [...] hypercholesterolemia Urinary tract infection 01/2019 seen by [facility] Past Surgical History: No past surgical history on file. Medications: Scheduled Meds: cefTRIAXone (ROCEPHIN) IV, 1,000 mg, intravenous, Q24H folic acid, 1 mg, oral, Daily metroNIDAZOLE, 500 mg, intravenous, Q12H sodium chloride, 3 mL, intravenous, Q12H OTNY thiamine HCl, 100 mg, oral, Daily Continuous Infusions: dextrose 5 % in water, 100 mL/hr sodium chloride 0.9 %, 20 mL/hr PRN Meds:. acetaminophen dextrose dextrose 5 % in water dextrose 50 % in water (D50W) glucagon (human recombinant) LORazepam OR LORazepam OR LORazepam LORazepam OR LORazepam OR LORazepam LORazepam OR LORazepam OR LORazepam LORazepam OR LORazepam OR LORazepam magnesium sulfate magnesium sulfate qzeihusu-rymh-ZG-calcium &mins potassium chloride OR potassium chloride OR [...] Information Photos/Images Abd U/s report impression from [facility] 06/07/2024 08:12 Attached To: Hospital Encounter on [...] Jin MD at 06/10/2024 2:41 PM EST [facility] [employer] [facility] Work Phone: [phone] Consult note* Richardson Brandt - 06/07/2024 8:44 AM ESTAssociated Order(s): IP CONSULT TO GASTROENTEROLOGY [facility] Initial Gastroenterology/Hepatology Consultation Note IDENTIFYING DATA PATIENT: Johnathan Rodney ADMIT DATE: 06/07/2024 TIME OF EVALUATION: 06/07/2024 8:45 AM Reason for Consult: eval for cirrhosis Requesting Physician: Shawanda Yañez HISTORY OF PRESENT ILLNESS Johnathan Rodney is a 68 y.o. male with a PMH of AFib on Eliquis, HTN, CKD, chronic systolic HF, heavy alcohol use, marijuana use admitted with encephalopathy after presenting to [facility] with altered mental status and hallucinations. Patient [...] hypercholesterolemia Urinary tract infection 01/2019 seen by [facility] No past surgical history on file. Family [...] TOTAL) BY MOUTH 3 (THREE) TIMES A DAY.270 tablet 3 Past Week labetaloL (NORMODYNE) 200 [...] TABLETS BY MOUTH EVERY DAY 180 tablet 1Past Week Current Medications: Current Facility-Administered Medications: acetaminophen (TYLENOL) tablet 650 mg, 650 mg, oral, Q4H PRN, Aureliano Martinezs, DO cefTRIAXone (ROCEPHIN) IVPB 1000 mg/50 mL in iso-osmotic dextrose (20 mg/mL premix), 1,000 mg, intravenous, Q24H, Aureliano Garduno, DO dextrose (GLUTOSE) 40 % gel 15 g, 15 g, oral, PRN, Aureliano Martinezs, DO dextrose 5 % (D5W) infusion, 100 mL/hr, intravenous, Continuous PRN, Aureliano Garduno, DO dextrose 50 % in water (D50W) 50% solution 25 mL, 25 mL, intravenous, PRN, Aureliano Wilson Abalos, DO folic acid (FOLVITE) tablet 1 mg, 1 mg, oral, Daily, Aureliano Martinezs, DO glucagon HCL injection 1 mg, 1 mg, intramuscular, PRN, Aureliano Martinezs, DO LORazepam (ATIVAN) tablet 1 mg, 1 mg, oral, Q1H PRN OR LORazepam (ATIVAN) injection 1 mg, 1 mg,intravenous, Q1H PRN OR LORazepam (ATIVAN) injection 1 mg, 1 mg, intramuscular, Q1H PRN, Aureliano Patino DO LORazepam (ATIVAN) tablet 2 mg, 2 mg, oral, Q1H PRN OR LORazepam (ATIVAN) injection 2 mg, 2 mg,intravenous, Q1H PRN OR LORazepam (ATIVAN) injection 2 mg, 2 mg, intramuscular, Q1H PRN, Aureliano MAbalos, DO LORazepam (ATIVAN) tablet 3 mg, 3 mg, oral, Q1H PRN OR LORazepam (ATIVAN) injection 3 mg, 3 mg,intravenous, Q1H PRN OR LORazepam (ATIVAN) injection 3 mg, 3 mg, intramuscular, Q1H PRN, Aureliano MAbalos, DO LORazepam (ATIVAN) tablet 4 mg, 4 mg, oral, Q1H PRN OR LORazepam (ATIVAN) injection 4 mg, 4 mg,intravenous, Q1H PRN OR LORazepam (ATIVAN) injection 4 mg, 4 mg, intramuscular, Q1H PRN, Aureliano MAbalos, DO magnesium sulfate IVPB 2000 mg/50 mL in iso-osmotic water (40 mg/mL premix), 2,000 mg, intravenous,PRN, Aureliano M Laureen, DO magnesium sulfate IVPB 4000 mg/100 mL in iso-osmotic water (40 mg/mL premix), 4,000 mg, intravenous, PRN, Aureliano M Laureen, DO metroNIDAZOLE (FLAGYL) IVPB 500 mg/100 mL in iso-osmotic sodium chloride (5 mg/mL premix), 500 mg, intravenous, Q12H, Aureliano M Laureen, DO, Stopped at 06/07/24 0733 ccyxvfzw-cajn-DE-calcium &mins (THERAGRAN-M) 9 mg iron-400 mcg tablet 1 tablet, 1 tablet, oral,Daily PRN, Aureliano M Laureen, DO potassium chloride [...] mL, intravenous, Q12H TONY, Aureliano Wilson Abalos, DO sodium chloride 0.9 % flush bag, 25 mL, intravenous, PRN, Aureliano Wilson Abalos, DO sodium chloride 0.9 % infusion, 20 mL/hr, intravenous, Continuous PRN, Aureliano Katie Laureen, DO thiamine HCl (VITAMIN B-1) tablet 100 mg, 100 mg, oral, Daily, Aureliano Wilson Abalos, DO, 100 mg at 06/07/24 0634 PRNs: [...] mg, PRN magnesium sulfate, 4,000 mg, PRN qqbhsath-xmmd-VX-calcium &mins, 1 tablet, Daily PRN potassium chloride, [...] is at hospital but thinks he is stillin Nadia, NAD HEENT: Normocephlic, Atraumatic, No sclera icterus CV: [...] - 5 /hpf IMAGING: Abdominal US at [facility] on 06/06/2024- showed normal liver ASSESSMENT AND PLAN Johnathan Rodney is a 68 y.o. male with a PMH of AFib on Eliquis, HTN, CKD, chronic systolic HF, heavy alcohol use, marijuana use admitted with encephalopathy after presenting to [facility] with altered mental status and hallucinations. Reported [...] the care of Johnathan Rodney. NIRMALA Smith [facility] [place] [id number] PH: [phone] NIRMALA Jara 06/07/24 1316 NIRMALA Jara 06/07/24 1316 Attending Attestation: Level of Participation Examined and discussed the patient with JAK Agreement I agree with the JAK's management. Attending Note I reviewed the JAK'sdocumentation and agree with the findings, assessment and plan Richardson Brandt D.O. [facility] [address] [address] PH: [phone] [employer] Work Phone: [phone] Consult note* Demetria Keller DO - 06/07/2024 8:12 AM ESTAssociated Order(s): IP CONSULT TO GENERAL SURGERY Images [...] and marijuana use who was transferred to [facility] from [facility] for encephalopathy with questionable hallucination, and hyperbilirubinemia. [...] History: Diagnosis Date Abnormal EKG Atrial fibrillation ([facility]) Back pain Bradycardia Chronic atrial fibrillation ([facility]) Hypertension Hypertensive heart disease without heart failure Hypokalemia Pure hypercholesterolemia Urinary tract infection 01/2019 seen by [facility] No past surgical history on file. No Known Allergies Current Facility-Administered Medications: acetaminophen (TYLENOL) tablet 650 mg, 650 mg, oral, Q4H PRN, Aureliano Garduno, cefTRIAXone (ROCEPHIN) IVPB 1000 mg/50 mL in [...] mg, 1 mg, oral, Daily, Aureliano Garduno, glucagon HCL injection 1 mg, 1 mg, intramuscular, PRN, Aureliano Garduno DO LORazepam (ATIVAN) tablet 1 mg, 1 mg, oral, Q1H PRN OR LORazepam (ATIVAN) injection 1 mg, 1 mg,intravenous, Q1H PRN OR LORazepam (ATIVAN) injection 1 mg, 1 mg, intramuscular, Q1H PRN, Aureliano Patino DO LORazepam (ATIVAN) tablet 2 mg, 2 mg, oral, Q1H PRN OR LORazepam (ATIVAN) injection 2 mg, 2 mg,intravenous, Q1H PRN OR LORazepam (ATIVAN) injection 2 mg, 2 mg, intramuscular, Q1H PRN, Aureliano MAbalos, DO LORazepam (ATIVAN) tablet 3 mg, 3 mg, oral, Q1H PRN OR LORazepam (ATIVAN) injection 3 mg, 3 mg,intravenous, Q1H PRN OR LORazepam (ATIVAN) injection 3 mg, 3 mg, intramuscular, Q1H PRN, Aureliano MAbalos, DO LORazepam (ATIVAN) tablet 4 mg, 4 mg, oral, Q1H PRN OR LORazepam (ATIVAN) injection 4 mg, 4 mg,intravenous, Q1H PRN OR LORazepam (ATIVAN) injection 4 mg, 4 mg, intramuscular, Q1H PRN, Aureliano MAbalos, DO magnesium sulfate IVPB 2000 mg/50 mL in iso-osmotic water (40 mg/mL premix), 2,000 mg, intravenous,PRN, Aureliano M Laureen, DO magnesium sulfate IVPB 4000 mg/100 mL in iso-osmotic water (40 mg/mL premix), 4,000 mg, intravenous, PRN, Aureliano M Laureen, DO metroNIDAZOLE (FLAGYL) IVPB 500 mg/100 mL in iso-osmotic sodium chloride (5 mg/mL premix), 500 mg, intravenous, Q12H, Aureliano M Laureen, DO, Stopped at 06/07/24 0733 khuuitwv-elqu-CU-calcium &mins (THERAGRAN-M) 9 mg iron-400 mcg tablet 1 tablet, 1 tablet, oral,Daily PRN, Aureliano M Laureen, DO potassium chloride (K-TAB,KLOR-CON) CR tablet 20-40 mEq, 20-40 mEq, oral, PRN OR potassium chloride (KAYCIEL) 20 mEq/15 mL solution 20-40 mEq, 20-40 mEq, oral, PRN OR potassium chloride IVPB 10 mEq/100 mL in water (0.1 mEq/mL premix), 10 mEq, intravenous, PRN, Aureliano M Laureen, DO sodium chloride 0.9 % flush 3 mL, 3 mL, intravenous, PRN, Aureliano M Laurene, DO sodium chloride 0.9 % flush 3 mL, 3 mL, intravenous, Q12H TONY, Aureliano M Laureen, DO sodium chloride 0.9 % flush bag, 25 mL, intravenous, PRN, Aureliano Martinezs, DO sodium chloride 0.9 % infusion, 20 mL/hr, intravenous, Continuous PRN, Aureliano Martinezs, DO thiamine HCl (VITAMIN B-1) tablet 100 mg, 100 mg, oral, Daily, Aureliano Wilson Laureen DO, 100 mg at 06/07/24 0634 Social [...] and marijuana use who was transferred to [facility] from [facility]SH with AMS and hyperbilirubinemia. General surgery consulted for GBUS findings of acute vs. chronic cholecystitis, however the pt denies any abdominal pain, hxof postprandial pain, and has no TTP. Given the pts history and physical exam, unfortunately, it ismore likely that the patients findings could be [...] 8:12 AM General Surgery C 6a-6p pager #[phone] 6p-6a pager #[phone] Cosigned by Nicolas Wells MD at 06/07/2024 9:30 PM EST Associated attestation - Nicolas Wells MD - 06/07/2024 9:30 PM EST Attending Attestation: I saw the patient. I performed the critical/leonardo portions of the service. I was directly involved inthe management and treatment plan of the patient. I reviewed the resident's note. Additional Notes/Findings: Patient with history of EtOH use. He presents with elevated liver enzymes. MRCP without any signficant biliary ductal dilation. There is sludge within the gallbladder. Elevated liver enzymes - unclear etiology. Doubt gallbladder etiology. Nicolas Wells MD, [facility] General Surgery and Minimally Invasive Surgery [address] [place] [address], [address] [place] [address] Office: [facility] History and physical note* Aureliano Garduno DO - 06/07/2024 6:00 AM EST Images from the original note were not included. [facility] History & Physical Examination H&P Department of Internal Medicine 06/07/2024 Patient Name: Johnathan Rodney : 1955 No chief complaint on file. HPI Johnathan Rodney is a 68 y.o. male medical history significant for atrial fibrillation, hypertension, chronic systolic heart failure, history of alcohol use disorder, who presented to [facility] for evaluation of altered mentation. Patient history provided by chart provided on transfer as hewas confused. His family brought him to the emergency room for general lethargy and confusion. He was found to be in atrial fibrillation with rapid ventricular response and was started on Cardizem infusion which he later converted to normal sinus rhythm he has been Cardizem since. He remained altered and described hallucinations. Laboratory data revealed elevated total bilirubin at 2.8 creatinineelevated at 2.11 with a BUN of 48, white blood cell count negative blood pressure was severely elevated. Patient admits to alcohol and marijuana use. Creatinine improved with IV hydration as the patient appeared clinically dehydrated. Abdominal ultrasound was obtained due to total bilirubin being el evated as well as a AST of 54 and it revealed acute versus chronic cholecystitis and a dilated right renal pelvis representing hydronephrosis and possible ureteral obstruction versus prominent per pelvic cyst. 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 Due to continued confusion and MRI of the brain was obtained on 06/06/2024 which revealed no evidence of acute ischemic infarct but limited by motion artifact. Patient was treatedwith IV antibiotics with Rocephin and Flagyl a Arenas catheter was placed due to acute urinary retent ion. Neuro stroke was consulted and they recommended transfer to [facility] for evaluation with potential lumbar puncture. Per chart family was concerned about abdominal discomfort the patient was complaining about prior to hospitalization. Past Medical History: Diagnosis Date Abnormal EKG Atrial fibrillation ([facility]) Back pain Bradycardia Chronic atrial fibrillation ([facility]) Hypertension Hypertensive heart disease without heart failure Hypokalemia Pure hypercholesterolemia Urinary tract infection 01/2019 seen by [facility] No past surgical history on file. Allergy: Patient has no known allergies. Prior to Admission medications Medication Sig Start Date End Date Taking? Authorizing Provider amLODIPine (NORVASC) 10 mg tablet TAKE 1 TABLET BY MOUTH EVERY DAY 12/30/21 Yes Manish Ibarra PA-C apixaban (ELIQUIS) 5 mg tablet Take 1 tablet (5 mg total) by mouth every 12 (twelve) hours. 01/04/21Yes Baldev Orozco PA-C aspirin 81 mg Take 1 tablet (81 mg total) by mouth in the morning. Yes Not In System Ref Prov hydrALAZINE (APRESOLINE) 100 mg tablet TAKE 1 TABLET (100 MG TOTAL) BY MOUTH 3 (THREE) TIMES A DAY.02/04/21 Yes Crow Andino APRN-WATCHMAKER APPRENTICE labetaloL (NORMODYNE) 200 mg tablet Take 2 [...] MOUTH EVERY DAY 09/16/21 Yes Vanessa Louie APRN-WATCHMAKER APPRENTICE reports that he has quit smoking. He [...] to person and time. Appears well-developed and well- nourished. No distress. Confusion noted. HENT: Normocephalic and [...] Acute urinary retention 8. Alcohol use disorder CIWA protocol with p.r.n. Ativan, daily multivitamin thiamine [...] has been identified and corrected by editing. [employer] Work Phone: [phone] 120-292401-31-2025 History and physical note* Aureliano Garduno DO - 06/07/2024 6:00 AM EST Images from the original note were not included. [facility] History & Physical Examination H&P Department of Internal Medicine 06/07/2024 Patient Name: Johnathan Rodney : 1955 No chief complaint on file. HPI Johnathan Rodney is a 68 y.o. male medical history significant for atrial fibrillation, hypertension, chronic systolic heart failure, history of alcohol use disorder, who presented to [facility] for evaluation of altered mentation. Patient history provided by chart provided on transfer as hewas confused. His family brought him to the emergency room for general lethargy and confusion. He was found to be in atrial fibrillation with rapid ventricular response and was started on Cardizem infusion which he later converted to normal sinus rhythm he has been Cardizem since. He remained altered and described hallucinations. Laboratory data revealed elevated total bilirubin at 2.8 creatinineelevated at 2.11 with a BUN of 48, white blood cell count negative blood pressure was severely elevated. Patient admits to alcohol and marijuana use. Creatinine improved with IV hydration as the patient appeared clinically dehydrated. Abdominal ultrasound was obtained due to total bilirubin being el evated as well as a AST of 54 and it revealed acute versus chronic cholecystitis and a dilated right renal pelvis representing hydronephrosis and possible ureteral obstruction versus prominent per pelvic cyst. 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 Due to continued confusion and MRI of the brain was obtained on 06/06/2024 which revealed no evidence of acute ischemic infarct but limited by motion artifact. Patient was treatedwith IV antibiotics with Rocephin and Flagyl a Arenas catheter was placed due to acute urinary retent ion. Neuro stroke was consulted and they recommended transfer to [facility] for evaluation with potential lumbar puncture. Per chart family was concerned about abdominal discomfort the patient was complaining about prior to hospitalization. Past Medical History: Diagnosis Date Abnormal EKG Atrial fibrillation ([facility]) Back pain Bradycardia Chronic atrial fibrillation ([facility]) Hypertension Hypertensive heart disease without heart failure Hypokalemia Pure hypercholesterolemia Urinary tract infection 01/2019 seen by [facility] No past surgical history on file. Allergy: Patient has no known allergies. Prior to Admission medications Medication Sig Start Date End Date Taking? Authorizing Provider amLODIPine (NORVASC) 10 mg tablet TAKE 1 TABLET BY MOUTH EVERY DAY 12/30/21 Yes Manish Ibarra PA-C apixaban (ELIQUIS) 5 mg tablet Take 1 tablet (5 mg total) by mouth every 12 (twelve) hours. 01/04/21Yes Baldev Orozco PA-C aspirin 81 mg Take 1 tablet (81 mg total) by mouth in the morning. Yes Not In System Ref Prov hydrALAZINE (APRESOLINE) 100 mg tablet TAKE 1 TABLET (100 MG TOTAL) BY MOUTH 3 (THREE) TIMES A DAY.02/04/21 Yes NIRMALA Sher labetaloL (NORMODYNE) 200 mg tablet Take 2 [...] MOUTH EVERY DAY 09/16/21 Yes Vanessa Louie APRN-WATCHMAKER APPRENTICE reports that he has quit smoking. He [...] to person and time. Appears well-developed and well- nourished. No distress. Confusion noted. HENT: Normocephalic and [...] Acute urinary retention 8. Alcohol use disorder [facility] protocol with p.r.n. Ativan, daily multivitamin thiamine [...] and corrected by editing. [facility] Consult note* Marii Potter MD - 06/07/2024 5:36 AM ESTAssociated Order(s): IP CONSULT TO NEUROLOGY Images from the original note were not included. [facility] Neurology General Neurology Consultation Note Consult Neurology Service: [phone] Primary Team: [facility] Chief Complaint and Reason for Consultation: Altered mental status and hallucinations History: Johnathan Rodney is a 68 y.o. year old male for whom Neurology was consulted for chief complaint ofaltered mental status and hallucinations. Patient has a [...] occult infection. Patient was then transferred to [facility] for further evaluation. On initial examination, patient [...] disease without heart failure Chronic atrial fibrillation ([facility]) Abnormal EKG Bradycardia Syncope 09/15/2017 Resolved Ambulatory Problems Diagnosis Date Noted Hypertension Past Medical History: Diagnosis Date Atrial fibrillation ([facility]) Back pain Urinary tract infection 01/2019 Family [...] mg, 650 mg, oral, Q4H PRN, Aureliano Wilson Laureen, DO dextrose (GLUTOSE) 40 % gel 15 g, 15 g, oral, PRN, Aureliano Wilson Abalos, DO dextrose 5 % (D5W) infusion, 100 mL/hr, intravenous, Continuous PRN, Aureliano Katie NgLaureen, DO dextrose 50 % in water (D50W) [...] infusion, 20 mL/hr, intravenous, Continuous PRN, Aureliano Katie Laureen, DO Allergies: No Known Allergies Complete [...] time. Memory: Patient appears to have lapses inretrograde memory.. Speech is normal. Language is fluent [...] pathological reflexes: Ankle clonus absent. Coordination Right: Dppwhr-ix-mxvw normal.Left: Xyyxjm-zm-ychv normal. Gait Deferred. Objective Pertinent Labs: No results found for this or any previous visit (from the past 72 hours). Imaging: No results found. Other Testing: PROBLEM LIST: Patient Active Problem List Diagnosis Pure hypercholesterolemia Hypokalemia Hypertensive heart disease without heart failure Chronic atrial fibrillation ([facility]) Abnormal EKG Bradycardia Syncope Acute encephalopathy Assessment: Johnathan Rodney is a 68 y.o. year old male for whom Neurology was consulted for chief complaint ofaltered mental status and hallucinations. Patient has a [...] Signed by Marii Potter MD Neurology Resident, [facility] Please contact via secure chat Staffed with: Dr. Marie This patient is being followed by the Neurology Resident service. Contact attending directly during these hours: Monday to 7:30-8:30 A.M. to Monday 12-1:00 p.m. Primary Neurology service: [phone] Consult neurology service: [phone] Resident Stroke Service: [phone] If the patient belongs to the Stroke [...] for: EAG Lab Results Component Value Date [id number] >1,500 (H) 06/07/2024 Neurological work up: CT head CTA head and neck MRI brain 2 D echo Assessment and recommendations Delirium Hypertension RADHA AFib with RVR Electrolytes imbalance Acute urinary retention Alcoholism Upon examination patient is awake, oriented to self, following commands in his almost close to backto baseline. No focal neurological deficits were noted [...] meaning can be extrapolated by contextual derivation. [employer] Work Phone: Evaluation + Plan note No data available for this section [facility] evaluation + Plan note Future Appointments Appointment Date:11/01/2024 10:30:00 AM Scheduled Provider: Location:[facility] Appointment Type:Urology CALL PAT FT Appointment Date:11/04/2024 02:45:00 PM Scheduled Provider: Location:[facility] Appointment Type:Urology FT [facility] evaluation + Plan note Future Appointments Appointment Date:03/05/2025 11:00:00 AM Scheduled Provider:DONAL MCGARRY MD Location:[facility] Appointment Type:URO Office Visit [facility] Evaluation note* Diagnosis Acute encephalopathy- Primary documented in this encounter [facility] noteNo assessment information available [facility] Work Phone: Hospital Discharge instructionsNot on filedocumented in this encounterCity HospitalHospital Discharge instructions No data available for this section [facility] InstructionsNot on filedocumented in this encounter [facility] [employer] note No data available for this section [facility] reason for referral (narrative)* Misc (Routine) - Pending ReviewSpecialtyDiagnoses / ProceduresReferred By ContactReferred To Contact Procedures Adult diet Tabatha León MD [address] [place] [phone] Phone: tel: fax: Referral IDStatusReasonStart DateExpiration DateVisits RequestedVisits [id number] Review/ [facility] HospitalReason for referral (narrative)No reason for referral information availableC[facility] Work Phone: Reason for visit Narrative* Auth/CertSpecialty Diagnoses / ProceduresReferred By ContactReferred To Contact Diagnoses Acute Encephalopathy [address] [address] Referral IDStatusReasonStart DateExpiration DateVisits RequestedVisits [id number] [facility] Summary Purpose Family History No Family History Records Found Relationship Condition Age at Onset Recorded Date/T rosalina father Hypertension Unknown DeceasedUnknownmotherDeceasedUnknownHypertensionUnknown Advance Directives No Advanced Directives Records Found Date ActivatedDate InactivatedComments06/07/2024 5:32 AMDate ActivatedDate InactivatedComments06/07/2024 5:32 AM Advance Directive Response Recorded Date/ Time Advance Directives No July 10 5:33pm Additional Source Comments (unrecognized sect ion and content) No Status Records FoundNo Status Records FoundNo Status Records FoundNo Status Records FoundNo Status Records FoundNo Status Records Found INFORMATION SOURCE (unrecogn ized section and content) DATE CREATED AUTHOR 12/19/2018 [facility] DATE CREATED AUTHOR AUTHOR'S ORGANIZ ATION 12/07/2023 [facility] EPIC DATE CREATED AUTHOR AUTHOR'S ORGANIZ ATION 06/12/2024 [facility] DATE CREATED AUTHOR AUTHOR'S ORGANIZ ATION 06/14/2024 [facility] DATE CREATED AUTHOR AUTHOR'S ORGANIZ ATION 12/01/2024 [facility] DATE CREATED AUTHOR AUTHOR'S ORGANIZ ATION 03/07/2025 [facility] Care Teams (unrecognized sec tion and content) Team MemberRelationshipSpecialtyStart DateEnd Date Shaikh Juarez MD PCP - GeneralInternal Medicine05/24/23Team MemberRelationshipSpecialtyStart Date End Date [facility] [address] [place], [place] PCP - Generalmily Medicine01/01/17Team MemberRelationshipSpecialtyStart DateEnd Date [facility] [address] [place], [place] [facility]17 Team Status: Inactive Member Role Status Dates Ramon Sutherland MD Attending Provider Active Sta rt: November 20, 2024 End: November 20, 2024Team MemberRelationshipSpecialtyStart DateEnd Date Shaikh Juarez MD PCP - GeneralInternal Medicine Jaleel Chacon MD PCP - GeneralFamily Medicine12/06/23 Skylar Gustafson NP Nurse PractitionerClarke County Hospitally Medicine12/06/23 Scheduled Active and Recently Administ ered Medications (unrecognized section and content) Medication Order//09/2024 albumin human 25 % IVPB Premix 25 g (COMPLETED) 25 g, intravenous, Once, On Mon06/10/24 at 0615, For 1 dose, Do not exceed 1 mL/minute in patients with normal plasma volume; 2 to 3 mL/minute in patients with hypoproteinemia For BUMINATE, administerusing a 15 micron or smaller filter. A filter is NOT required for administration by other brands., I ndication: Other, Indication: Hypotension, volume overload * 0626 (New Bag - Provider: Rola Burrell RN) apixaban (ELIQUIS) tablet 5 mg 5 mg, oral, 2 times daily, First dose on Mon06/11/24 at 2100, Indication: Nonvalvular Atrial Fibrillation (NVAF) * 2057 (Given - Provider: Kate Benson RN) * 917 (Given - Provider: Shazia Haynes RN) * 2099 (Due) atorvastatin (LIPITOR) tablet 40 mg 40 mg, oral, Nightly, First dose on Mon06/07/24 at 2200, Look-alike/sound-alike medication - verifyindication for use. * 2028 (Given - Provider: Kate Benson RN) * 2058 (Given - Provider: Kate Benson RN) * 2199 (Due) carvediloL (COREG) tablet 12.5 mg 12.5 mg, oral, 2 times daily, First dose on Mon06/08/24 at 2100, HOLD FOR SYSTOLIC BLOOD PRESSURE LESS THAN 100 MMHG OR HEART RATE LESS THAN 50 Give with meal or snack. Look-alike/sound-alike medication - verify indication for use. * 0837 (Given - Provider: Rebecca Arredondo RN) * 2028 (Given - Provider: Kate Benson, RN) * 0857 (Given - Provider: Shazia Haynes, RN) * 2058 (Given - Provider: Kate Benson, RN) * 0918 (Given - Provider: Shazia Haynes, JAMEE) * 2100 (Due) cefTRIAXone (ROCEPHIN) IVPB 1000 mg/50 mL in iso-osmotic dextrose (20 mg/mL premix) (CANCELED) 1,000 mg, intravenous, at 100 mL/hr, Administer over 30 Minutes, Every 24 hours, First dose on Mon06/07/24 at 0630, Look-alike/sound-alike medication - verify indication for use. Do not co-administerwith calcium-containing solutions such as Lactated Ringers., Indication: Intra-abdominal * 1004 (New Bag - Provider: Rebecca Arredondo RN) * 1034 (Stop Bag - Provider: Rebecca Arredondo RN) * 1254 (New Bag - Provider: Shazia Haynes, RN) * 1324 (Stop Bag - Provider: Shazia Haynes, JAMEE) cefTRIAXone (ROCEPHIN) IVPB 1000 mg/50 mL in iso-osmotic dextrose (20 mg/mL premix) 1,000 mg, intravenous, at 100 mL/hr, Administer over 30 Minutes, Every 24 hours, First dose (after last modification) on Mon06/12/24 at 1030, For 1 day, Look-alike/sound-alike medication - verify indication for use. Do not co- administer with calcium-containing solutions such as Lactated Ringers., Ind ication: Intra-abdominal * 1215 (New Bag - Provider: Shazia Haynes, JAMEE) * 1245 (Stop Bag - Provider: Shaiza Haynes, JAMEE) enoxaparin (LOVENOX) syringe 40 mg (CANCELED) 40 mg, subcutaneous, Daily, First dose on Mon06/10/24 at 0900, Look-alike/sound-alike medication - verify indication for use. * 0904 (Given - Provider: Rebecca Arredondo RN) * 0857 (Given - Provider: Shazia Haynes, JAMEE) folic acid (FOLVITE) tablet 1 mg 1 mg, oral, Daily, First dose on Mon06/07/24 at 0900, Look-alike/sound-alike medication - verify indication for use. * 0837 (Given - Provider: Rebecca Arredondo RN) * 0857 (Given - Provider: Shazia Haynes, RN) * 0918 (Given - Provider: Shazia Haynes, RN) furosemide (LASIX) tablet 40 mg 40 mg, oral, Daily, First dose on Mon06/11/24 at 0900, HOLD FOR BLOOD PRESSURE LESS THAN 100 MMHG Look-alike/sound-alike medication - verify indication for use. * 0857 (Given - Provider: Shazia Haynes, JAMEE) * 0918 (Given - Provider: Shazia Haynes, RN) lidocaine (URO-JET) 2 % jelly 1 Application 1 Application, urethral, Once, On Mon06/10/24 at 1300, For 1 dose * 1300 (Due) melatonin (CIRCADIN) tablet 5 mg 5 mg, oral, Nightly, First dose on Mon06/07/24 at 2200 * 2028 (Given - Provider: Kate Benson RN) * 2058 (Given - Provider: Kate Benson RN) * 2199 (Due) metroNIDAZOLE (FLAGYL) IVPB 500 mg/100 mL in iso-osmotic sodium chloride (5 mg/mL premix) (CANCELED) 500 mg, intravenous, at 100 mL/hr, Administer over 60 Minutes, Every 12 hours, First dose (after last reorder) on Mon06/07/24 at 0630, Look-alike/sound-alike medication - verify indication for use., Indication: Intra-abdominal * 0844 (New Bag - Provider: Rebecca Arredondo RN) * 0944 (Stop Bag - Provider: Rebecca Arredondo RN) * 2036 (New Bag - Provider: Kate Benson RN) * 2136 (Stop Bag - Provider: Kate Benson RN) * 0903 (New Bag - Provider: Shazia Haynes, JAMEE) * 1003 (Stop Bag - Provider: Shazia Haynes, JAMEE) metroNIDAZOLE (FLAGYL) IVPB 500 mg/100 mL in iso-osmotic sodium chloride (5 mg/mL premix) (COMPLETED) 500 mg, intravenous, at 100 mL/hr, Administer over 60 Minutes, Every 12 hours, First dose (after last modification) on Mon06/11/24 at 2100, For 1 day, Look-alike/sound-alike medication - verify indication for use., Indication: Intra-abdominal * 2103 (New Bag - Provider: Kate Benson RN) * 220 (Stop Bag - Provider: Kate Benson RN) * 0923 (New Bag - Provider: Shazia Haynes RN) * 1023 (Stop Bag - Provider: Shazia Haynes RN) midodrine (PROAMATINE) tablet 5 mg 5 mg, oral, 3 times daily, First dose on Mon06/09/24 at 1400, Hold if blood pressure is greater [id number] mmHg Look-alike/sound-alike medication - verify indication for use. * 0600 (Hold - Provider: Rola Burrell RN - Reason: Order parameters not met - Comment: bp- 116/98) * 1400 (Hold - Provider: Rebecca Arredondo RN - Reason: Order parameters not met) * 2100 (Not Given - Provider: Kate Benson RN - Reason: Order parameters not met - Comment: bp 144/97) * 0600 (Hold - Provider: Kate Benson RN - Reason: Order parameters not met - Comment: bp 121/92) * 1400 (Not Given - Provider: Shazia Haynes RN - Reason: Order parameters not met) * 2100 (Not Given - Provider: Kate Benson RN - Reason: Order parameters not met) * 0600 (Hold - Provider: Kate Benson RN - Reason: Order parameters not met) * 1400 (Not Given - Provider: Shazia Haynes RN - Reason: Patient not available) * 220 (Due) QUEtiapine (SEROquel) tablet 25 mg 25 mg, oral, Nightly, First dose on Mon06/07/24 at 2200, Look-alike/sound-alike medication - verifyindication for use. * 2028 (Given - Provider: Kate Benson RN) * 2058 (Given - Provider: Kate Benson RN) * 2199 (Due) sennosides-docusate sodium (SENOKOT-S) 8.6-50 mg 2 tablet 2 tablet, oral, Nightly, First dose on Mon06/11/24 at 2200 * 2100 (Not Given - Provider: Kate Benson RN - Reason: Patient/family refused) * 2199 (Due) sodium chloride 0.9 % flush 3 mL 3 mL, intravenous, Every 12 hours scheduled, First dose on Mon06/07/24 at 0900 * 0837 (Given - Provider: Rebecca Arredondo RN) * 2028 (Given - Provider: Kate Benson RN) * 0858 (Given - Provider: Shazia Haynes, JAMEE) * 2058 (Given - Provider: Kate Benson, JAMEE) * 0918 (Given - Provider: Shazia Haynes, JAMEE) * 2099 (Due) tamsulosin (FLOMAX) 24 hr capsule 0.4 mg 0.4 mg, oral, Nightly, First dose on Mon06/08/24 at 2200, Do not crush or chew. * 2028 (Given - Provider: Kate Benson RN) * 2057 (Given - Provider: Kate Benson RN) * 2199 (Due) thiamine HCl (VITAMIN B-1) tablet 100 mg 100 mg, oral, Daily, First dose on Mon06/07/24 at 0630, Look-alike/sound-alike medication - verify indication for use. * 0837 (Given - Provider: Rebecca Arredondo RN) * 0858 (Given - Provider: Shazia Haynes, RN) * 0918 (Given - Provider: Shazia Haynes, JAMEE) Medication Order//[id number]///09/2024 acetaminophen (TYLENOL) tablet 650 mg 650 mg, [...] glucose less than 70 mg/dL and unconscious orNPO with IV access, Starting on Mon06/07/24 at [...] dose, VESICANT (RED), Indications: magnetic resonance imaging * 0224 (Given - Provider: LISSY Stevens) glucagon HCL injection 1 mg 1 mg, intramuscular, As needed, low blood sugar, blood glucose less than 70 mg/dL and unconscious or NPO without IV access., Starting on Mon06/07/24 at 0530, If conscious and not NPO, immediately follow with meal tray or high protein (7Grams) snack if tray not available. If NPO, initiate IV 5% Dextr ose/Water at 100 mL/hr and contact prescriber for [...] Score 8-10, Starting on 06/08/24 at 1526, forCIWA-AR score 8-10 if NPO / not tolerating [...] If NPO or not tolerating PO and noIV access Look-alike/sound-alike medication - verify indication for [...] If NPO or not tolerating PO and noIV access Look-alike/sound-alike medication - verify indication for [...] 11-15, Starting on 06/08/24 at 1528, for CIWA-ARscore 11-15 Administer orally if tolerating PO Look-alike/sound-alike medication - verify indication for use. LORazepam (ATIVAN) tablet 3 mg(Linked Group 3) 3 mg, oral, Every 4 hours PRN, withdrawal, Score 16-19, Starting on 06/08/24 at 1527, for CIWA-ARscore 16-19 Administer orally if tolerating PO Look-alike/sound-alike [...] complete. With each magnesium result continue the replacementorders as needed. magnesium sulfate IVPB 4000 mg/100 mL in iso-osmotic water (40 mg/mL premix) 4,000 mg, intravenous, at 25 mL/hr, Administer over 240 Minutes, As needed, Magnesium level 1.6 mg/dL or less, or Ionized Magnesium level 0.44 mmol/L or less, Starting on Mon06/07/24 at 0612, Recheckmagnesium level 4 hours after infusion complete. With each magnesium result continue the replacement orders as needed. metoprolol (LOPRESSOR) injection 5 mg 5 mg, intravenous, Every 6 hours PRN, For heart rate greater than 120, Starting on Mon06/08/24 at 1711, Look-alike/sound-alike medication - verify indication for use. * 0942 (Given - Provider: Shazia Haynes RN) oxovxera-yfgx-YV-calcium &mins (THERAGRAN-M) 9 mg iron-400 mcg tablet 1 tablet 1 tablet, oral, Daily PRN, administer instead of IV MVI when patient tolerating oral diet, Startingon Mon06/07/24 at 0620 polyethylene glycol (GLYCOLAX) packet 17 g 17 g, oral, Daily PRN, constipation, Starting on Mon06/11/24 at 0753, Look-alike/sound-alike medication - verify indication for use. Dissolve 1 packet (17 gm) in 8 ounces of water, juice, soda, coffeeor tea. potassium chloride (K-TAB,KLOR-CON) CR tablet 20-40 mEq(Linked Group 4) 20-40 mEq, oral, As needed, Potassium Supplementation, Starting on Mon06/07/24 at 0612, Progress tooral potassium replacement when patient tolerating oral intake. [...] dialysis=40 mEq. Do not crush or chew. * 8562 (Given - Provider: Shazia Haynes RN) potassium chloride (KAYCIEL) 20 mEq/15 mL solution 20-40 mEq(Linked Group 4) 20-40 mEq, oral, As needed, Potassium Supplementation, Starting on Mon06/07/24 at 0612, Progress tooral potassium replacement when patient tolerating oral intake. [...] after per policy and monitor potassium levels * 1838 (See Alternative - Provider: Shazia Haynes [...] mEq over a minimum of 1 hour. * 1838 (See Alternative - Provider: Shazia Haynes RN) sodium chloride 0.9 % flush 10 mL (COMPLETED) 10 mL, intravenous, Once in imaging, line care, MRI, Starting on Mon06/10/24 at 0211, For 1 dose * 0224 (Given - Provider: LISSY Stevens) sodium chloride 0.9 % flush 3 mL 3 mL, intravenous, As needed, line care, before and after each intermittent use, Starting on Mon06/07/24 at 0530 sodium chloride 0.9 % flush bag 25 mL, intravenous, at 100 mL/hr, Administer over 15 Minutes, As needed, line care, line care afterIVPB administration, Starting on Mon06/07/24 at 0530 sodium chloride 0.9 % infusion 20 mL/hr, intravenous, Continuous PRN, to maintain patency of lines, Starting on Mon06/07/24 at 0530 sodium chloride 0.9 % radiology injection (COMPLETED) 50 mL, intravenous, Once in imaging, pre/post contrast, MRI, Starting on Mon06/10/24 at 0211, For 1 dose * 0237 (Given - Provider: LISSY Stevens) Order Group 1: LORazepam (ATIVAN) tablet 1 [...] Score 8-10, Starting on 06/08/24 at 1526, forCIWA-AR score 8-10 if NPO / not tolerating [...] 11-15, Starting on 06/08/24 at 1528, for CIWA-ARscore 11-15 Administer orally if tolerating PO Look-alike/sound-alike [...] If NPO or not tolerating PO and noIV access Look-alike/sound-alike medication - verify indication for use;IV use requires increased monitoring of HR,BP,Respirations and Pulse Oximetry;For IV-dilute with equal volume PF sod chloride, Indication: Alcohol Withdrawal Group 3: LORazepam (ATIVAN) tablet 3 mgJump to med 3 mg, oral, Every 4 hours PRN, withdrawal, Score 16-19, Starting on 06/08/24 at 1527, for CIWA-ARscore 16-19 Administer orally if tolerating PO Look-alike/sound-alike [...] If NPO or not tolerating PO and noIV access Look-alike/sound-alike medication - verify indication for use;IV use requires increased monitoring of HR,BP,Respirations and Pulse Oximetry;For IV-dilute with equal volume PF sod chloride, Indication: Alcohol Withdrawal Group 4: potassium chloride (K-TAB,KLOR-CON) CR tablet 20-40 mEqJump to med 20-40 mEq, oral, As needed, Potassium Supplementation, Starting on Mon06/07/24 at 0612, Progress tooral potassium replacement when patient tolerating oral intake. [...] Supplementation, Starting on Mon06/07/24 at 0612, Progress tooral potassium replacement when patient tolerating oral intake. [...] mEq over a minimum of 1 hour. Goals (unrecognized section and content) Goals may be documented in a n alternate section FOR RECORDS PERTAINING TO PATIENTS WHO ARE [...] BE BASED ON THE PRIMARY CLINICAL RECORDS. [facility]. provides no warranty or guarantee of the accuracy or completeness of information in this document.
--- OUTSIDE RECORDS SUMMARY | 2025-04-06 13:34 | XMS_ITS | Clinical Summary ---
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 90 tablet 06/28/2023ctive metoprolol succinate XL (Toprol XL) 100 MG 24 hr tablet Indications:Chronic systolic heart failure (HCC)Take 1 tablet (100 mg) by mouth in the morning. Do not crush or chew.. 90 tablet 06/28/2023ctive spironolactone (Aldactone) 50 MG tablet Indications:Chronic systolic heart failure (HCC)Take 1 tablet (50 mg) by mouth in the morning. 90 tablet 06/28/2023ctive apixaban (Eliquis) 5 MG tablet Indications:Paroxysmal A-fib (HCC)Take 1 tablet (5 mg) by mouth in the morning and 1 tablet (5 mg) before bedtime. 180 tablet 06/28/2023ctive furosemide (Lasix) 40 MG tablet Indications:Chronic systolic heart failure (HCC)Take 1 tablet (40 mg) by mouth Daily 90 tablet ctive hydrALAZINE (Apresoline) 25 MG tablet Indications:Chronic systolic heart failure (HCC),Primary hypertensionTake 1 tablet (25 mg) by mouth in the morning and 1 tablet (25 mg) in the evening and 1 tablet (25 mg) before bedtime. 270 tablet 11/30/2023ctive isosorbide mononitrate ER (Imdur) 30 MG 24 hr tablet Indications:Chronic systolic heart failure (HCC),Primary hypertensionTake 1 tablet (30 mg) by mouth Daily Do not crush or chew. 90 tablet 11/30/2023ctive ferrous gluconate (Fergon) 324 (38 Fe) MG tablet Take 324 mg by mouth in the morning. Take with meals.Active Active Problems ProblemNoted DateDiagnosed DateAcute on chronic systolic heart jxpwabr3812/05/2023 Assessment & Plan (12/05/2023 9:49 PM EDT): Acute on chronic systolic HF. Increase lasix to 40 q12 Ordered labs, CXR Will follow up in one week. Chronic atrial kkbaqbvevjmw81/21/6885Hzvukrmhtyi58/21/2024Iron deficiency anemia 06/28/2023 Assessment & Plan (12/05/2023 9:45 PM EDT): Work up for anemia revealed iron deficiency anemia. Started on PO iron. No prior hx of colon cancer screening. Was referred to general surgery - patient did not follow up. Denies melena, BRBPR Recheck CBC. Assessment & Plan (06/28/2023 2:22 PM EST): Work up for anemia revealed iron deficiency anemia. Started on PO iron. No prior hx of colon cancer screening. Referred to surgery for it. Denies melena, BRBPR Primary uubzyiogofii11/17/2024 Assessment & Plan (12/05/2023 9:51 PM EDT): Above goal but asymptomatic. He is currently on Toprol, Losartan, Aldactone, lasix. He is also on imdur/hydralazine. His compliance is questionable and I am not convinced that he is using his medications as prescribed. He could not use Entresto due to cost. Patient encouraged to continue with home BP monitoring and call office if he experiences orthostatic symptoms or persistently elevated BP. Follow up in one week Assessment & Plan (06/28/2023 2:19 PM EST): Above goal but asymptomatic. He is currently on Toprol, Losartan, Aldactone, lasix. He could not use Entresto due to cost. Start on Imdur 30 mg, hydralazine 25 TID. Patient encouraged to continue with home BP monitoring and call office if he experiences orthostatic symptoms or persistently elevated BP. Follow up in one month Assessment & Plan (05/24/2023 2:52 PM EST): Changing medications due to hx of chronic systolic HF as he is not any GDMT. Started on Toprol (labatalol discontinued), entresto, aldactone. Labs before next appt Patient encouraged to continue with home BP monitoring and call office if he experiences orthostatic symptoms or persistently elevated BP. Paroxysmal A-fib05/24/2023 Assessment & Plan (12/05/2023 9:53 PM EDT): Seems to be in afib today but rate is controlled. Check labs. Given [facility] cardiology office contact information. Patient will call and make an appt. Assessment & Plan (06/28/2023 2:19 PM EST): Parox Afib. In NSR now. Has low EF. Previously normal EF. Labs before next emiliano - CBC, CMP Referred to Cardiology - provided office contact information Assessment & Plan (05/24/2023 2:51 PM EST): Parox Afib. In NSR now. Has low EF. Previously normal EF. Started on Toprol, entresto, aldactone. Labs before next emiliano Referred to Cardiology. Chronic systolic heart cphsalr2005/24/2023 Assessment & Plan (12/05/2023 9:48 PM EDT): 2D ECHO 04/29 --> Borderline low EF 40%. 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 Patient on Toprol 100 mg, losartan, aldactone. He is also on Imdur and hydralazine. Patient's BP isabove goal but there is a significant lack of insight and understanding of her cardiac condition. He has not seen Cardiology still. He is volume overload on exam today. Check labs, CXR. Increase lasix to 40 q12. Follow up in one week. Patient instructed to have a low threshold to go to ED and seek emergency care if his symptoms worsen before he is seen next week in office. Assessment & Plan (06/28/2023 2:21 PM EST): 2D ECHO 04/29 --> Borderline low EF 40%. 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 Last appointment started on Toprol 100 mg, Entresto, aldactone. Entresto switched to losartan due to cost. BP above goal - added imdur and hydralazine. He is also on lasix 40 daily and 20 meq potassium Check labs 2-3 days before next appointment. Assessment & Plan (05/24/2023 2:49 PM EST): 2D ECHO 04/29 --> Borderline low EF 40%. 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 Was discharged on Cardizem for Atrial fibrillation. Stop Cardizem due to underlying systolic HF Start patient on Toprol 100 mg, Entresto, aldactone. Patient counseled and educated on adverse effects, drug interactions and to reach out to office/pharmacy if questions or concerns related to new medications. Check labs 2-3 days before next appointment. Stage 3a chronic kidney yliuxgv6905/24/2023 Assessment & Plan (12/05/2023 9:45 PM EDT): Previously unknown. Likely due to HTN, CHF. Referred to Nephrology. On Losartan. Did not follow up with Nephrology. Patient given their office contact information. Assessment & Plan (06/28/2023 2:21 PM EST): Previously unknown. Likely due to HTN, CHF. Referred to Nephrology. On Losartan. Assessment & Plan (05/24/2023 2:53 PM EST): Patient not aware of the diagnosis Check urine/protein Will address next appointment in detail Normocytic crirte6505/24/2023 Assessment & Plan (05/24/2023 2:54 PM EST): Normocytic anemia Hb 10 on recent hospital admission. Ordered anemia workup. Chronic venous insufficiency of lower frsopfpbj13/17/2024 Assessment & Plan (05/24/2023 2:51 PM EST): Chronic LE edema, worse at the end of the day. Improves with leg elevated. Likely has superimposed volume overload due to acute on chronic systolic HF. Has venous ulcer on left leg. Order venous ultrasound. Asked patient to keep legs elevated. Increased lasix to 40 q12,, added aldactone. Refer to wound clinic for venous ulcer Encounter to establish care with new fyuzse4105/24/2023 Assessment & Plan (05/24/2023 2:54 PM EST): New Patient, here to establish care. Reviewed medical, surgical and social hx. Reviewed available old records. Reviewed and updated medication list. Immunizations ImmunizationAdministration DatesNext DueInfluenza, Seasonal, Quadrivalent, Fhyzsgtrxj77/15/2021 Family History Medical HistoryRelationNameCommentsNo Known ProblemsFatherNo Known Problems MotherRelationNameStatusCommentsFatherDeceasedMotherDeceased Social History Tobacco UseTypesPacks/DayYears UsedDateSmoking Tobacco: NeverPassive Smoke Exposure: NeverSmokeless Tobacco: Never Tobacco Cessation:Counseling Given: No Alcohol UseStandard Drinks/WeekCommentsNot Currently0 (1 standard drink = 0.6 oz pure alcohol)PHQ-2AnswerDate RecordedPatient Health Questionnaire-2 Score0 06/28/2023Sex and Gender InformationValueDate RecordedSex Assigned at BirthNot on fileLegal RmqLvmf7207/20/2022 7:32 PM EDTGender IdentityNot on fileSexual OrientationNot on file Last Filed Vital Signs Vital SignReadingTime TakenCommentsBlood Dayxwmgv204/8007 2:59 PM EDT Xoejt6502 2:59 PM EDT95% G9Xommxzvuxgs91.1 ??C (96.9 ??F)12/05/2023 2:59 PM EDTRespiratory Rate--Oxygen Cupcqmkqka917%05/24/2023 1:37 PM ESTInhaled Oxygen Concentration--Cxbhkd28.1 kg (159 lb)12/05/2023 2:59 PM EGVEzbrco395.6 cm (5' 6 )12/05/2023 2:59 PM EDTBody Mass Index25.6607 2:59 PM EDT Plan of Treatment Not on file Insurance Care Teams Team MemberRelationshipSpecialtyStart DateEnd Date Jaleel Chacon MD PCP - GeneralFamily Medicine12/06/23 Skylar Gustafson NP Nurse PractitionerFamily Medicine12/06/23
--- OUTSIDE RECORDS SUMMARY | 2025-04-06 13:35 | XMS_ITS | Patient Health Record ---
Author Organization [facility] in [place] Address [address] [place] [address] Care Team Providers Care Sports Therapist Name Role Phone Zac Sutherland Primary Care Provider Allergies No Known Allergies Results Component Value Reference Range Notes UA (Urinalysis, Dipstix only - w/o micro) Reviewed date:11/21/2024 06:04:40 PM Interpretation: Performing Lab: Notes/Report: GLUCOSE - 0 - 133 MG/DL ALBUMIN-NEG - NEG MG/DLBILIRUBIN-NEG - NEG MG/DLSPECIFIC GRAVITY1.0101.001 - 1.035KETONES-NEG - NEG MG/DLBLOOD, URlgPH, UR75 - 9UROBILNOGEN-0.2 - 1 MG/DL NITRITE+NEG - NEGESTERASE (PAT)+NEG - NEG MG/DLLACTATE or LACTIC ACID Reviewed date:06/06/2024 07:57:43 PM Interpretation: Performing Lab: Notes/Report: [facility] ,Lactate/Lactic Acid1.10.4-2.0 mmol/LPerforming Lab:see noteML - [facility] LBPROF 14(COMP METB) Reviewed date:06/06/2024 07:57:43 PM Interpretation: Performing Lab: Notes/Report: [facility] ,Bydxfa657784-776 mmol/LPotassium3.23.5-5.1 mmol/MZybggwua37167-927 mmol/LCarbon Zefviyz52.421.0-32.0 mmol/LAnion Gap17.1Ujmbbkb4424-212 mg/dLBlood Urea Nitrogen 39.07.0-18.0 mg/dLCreatinine1.670.70-1.30 mg/dLEstimated GFR ( Fbghuip92 >=60 mL/min/1.73m 2Estimated GFR (Non- Ame41>=60 mL/min/1.73m 2BUN Creatinine Ratio23.0Clglpuj1.78.5-10.1 mg/dLBilirubin Total2.80.2-1.0 mg/dL Aspartate Amino Dabztkxpcoz3867-91 U/LAlanine Gzrhusdnjwhwbxsg8740-99 U/L Alkaline Yqiagxytddm6131-213 U/LTotal Protein6.66.4-8.2 g/dLAlbumin Level3.13.4- 5.0 g/dLGlobulin3.5Albumin Globulin Ratio0.9Performing Lab:see note - [facility] LBTroponin I High Sensitivity Reviewed date:06/06/2024 07:57:43 PM Interpretation: Performing Lab: Notes/Report: [facility] ,Troponin I High Hcodhjjnize98.54.0-76.1 pg/mL CUT-OFF POINTS HAVE BEEN ESTABLISHED BASED ON THE FOURTH UNIVERSAL DEFINITION OF MYOCARDIAL INFARCTION. THE UPPER REFERENCE LIMIT (URL) OF TROPONIN, DEFINED THE 99TH PERCENTILE OF cTnI DISTRIBUTION IN A REFERENCE POPULATION, HAS BEEN CONFIRMED THE DECISION THRESHOLD FOR [place] DIAGNOSIS. 99TH PERCENTILE = 76.2 PG/ML NOTE: HIGH-SENSITIVITY TROPONIN ASSAY IS NOT INTENDED TO BE USED IN ISOLATION BUT SHOULD BE INTERPRETED IN CONJUNCTION WITH OTHER DIAGNOSTIC AND CLINICAL INFORMATION. Performing Lab:see noteML - [facility] LBAcute Hepatitis Reviewed date:06/08/2024 04:33:14 PM Interpretation: Performing Lab: Notes/Report: [facility] ,Hep A Ab, IgMNegativeNegative A negative anti-HAV IgM result suggests no recent or current HAV infection. HBsAg ScreenNegativeNegativeHep B Core Ab, IgMNegativeNegativeHCV AbNon Reactive Non ReactiveInterpretation:Comment. Not infected with HCV unless early or acute infection is suspected (which may be delayed in an immunocompromised individual), or other evidence exists to indicate HCV infection. Performed at: [facility] [address] [id number] [employer]isher: Yohan Gonzalez PhD, Phone: [phone] Performing Lab:see [facility] LBVitamin B12 Reviewed date:06/08/2024 04:33:14 PM Interpretation: Performing Lab: Notes/Report: [facility] ,Vitamin B12>3564872-4402 pg/mL Performed at: [address] [id number] [employer]isher: Yohan Gonzalez PhD, Phone: [phone] Performing Lab:see [facility] LBCA echo doppler complete Reviewed date:06/06/2024 07:57:43 PM Interpretation: Performing Lab: Notes/Report: Source Facility: [place] [address] Cardiology Report Signed Patient: JOHNATHAN JOYA MR#: [id number] : 1955 Acct:[id number] Age/Sex: 68 / M ADM Date: 06/05/24 Loc: ICU 271-[address]: Ramon Sutherland M.D. Ordering Physician: Ramon Sutherland M.D. Date of Service: 06/06/24 Procedure(s): CA echo doppler complete Accession Number(s): [id number] cc: Ramon Sutherland M.D.; Physician,NonBlancaStaff Jay Patient Name: JOHNATHAN JOYA MR#: [id number] : 1955 Exam Date: 06/06/2024 Ordering Doctor: DR Ramon Sutherland . ECHOCARDIOGRAM REPORT PROCEDURE: CA ECHO DOPPLER COMPLETE INDICATIONS: Dyspnea COMPARISON: None. DESCRIPTION: COMPLETE ECHOCARDIOGRAM Real-time transthoracic echocardiography with 2D, M-mode, spectral and color flow Doppler performed. QUALITY: Technical quality was good. LEFT VENTRICLE: Normal chamber size. Moderate to severe concentric left ventricular hypertrophy. Systolic function appears to be at the lower limits of normal. LV EF: Visual estimation of left ventricular ejection fraction is at the lower limits of normal at 50%. DIASTOLIC: Not adequately assessed due to heart rhythm. ATRIAL SEPTUM: LEFT ATRIUM: Severe dilatation. RIGHT ATRIUM: Severe dilatation. RIGHT VENTRICLE: Mild dilatation. Normal right ventricular systolic function. TRICUSPID VALVE: Normal mobility and thickness. No stenosis with mild to moderate regurgitation. Moderate pulmonary hypertension. RVSP 51 mmHg MITRAL VALVE: Normal mobility and thickness. No evidence of mitral valve stenosis. Mild mitral annular calcification. Mild mitral regurgitation. AORTIC VALVE: Normal trileaflet appearance. Mildly calcified aortic valve. Normal leaflet mobility. No evidence of aortic valve stenosis. Mild aortic regurgitation. AORTIC ROOT: Mildly, measuring 3.8 cm. Mild dilatation of the ascending aorta measuring 3.8 cm. PULMONIC VALVE: Normal thickness and mobility. No stenosis. Trivial regurgitation. PERICARDIUM: No evidence of pericardial effusion. IVC: Normal size with partial collapse. PLEURA: CONCLUSION: 1. Moderate to severe concentric left ventricular hypertrophy with low normal systolic function. Estimated LVEF is 50%. 2. Mildly dilated right ventricle with normal systolic function. 3. Severe biatrial dilatation. 4. Mild mitral and aortic regurgitation. 5. Mild to moderate tricuspid regurgitation. 6. Moderately elevated right-sided pressures. RVSP is estimated at 51 mmHg. 7. Mildly dilated ascending aorta. Adult Echocardiography Procedure Report Left Ventricle LVEDD (3.7 - 5.6 cm): 4.69 cm LVESD (2.2 - 4.0 cm): 3.76 cm LVIVS thickness (0.6 - 1.2 cm): 1.51 cm LVPW thickness (0.5 - 1.0 cm): 1.71 cm e': 0.11 m/s E - e': 7.57 LVOT Max Gradient: 3.50 mm[Hg] LVOT Area (cm2): 0.94 m/s Peak Velocity (LVOT): 0.94 m/s Mean Velocity (LVOT): 0.57 m/s LVOT Diameter 2.02 cm Left Ventricular Ejection Fraction: 50 % Left Atrium LA Volume Index (2D A2C): 105.29 ml/m2 Left Atrium Systolic Dimension: 4.57 cm Mitral Valve MV E to A Ratio: 139.47 Mitral Valve A-Wave Peak Velocity: 0.01 m/s Mitral Valve E-Wave Peak Velocity: 0.82 m/s Right Ventricle RV Internal Diastolic Dimension: 4.41 cm Aorta AO Root Diam: 3.80 cm Ascending Ao Diam: 3.77 cm Aortic Valve AoV Area (Peak Mahin): 2.18 cm2, 2.18 cm2 AoV Area (VTI): 2.00 cm2, 2.00 cm2 Deceleration [place]: 1.36 m/s2 Pressure Half-Time: 802.80 ms Peak Velocity(Antegrade Flow): 1.37 m/s Peak Gradient(Antegrade Flow): 7.50 mm[Hg] Mean Velocity(Antegrade Flow): 0.94 m/s Mean Gradient(Antegrade Flow): 4.06 mm[Hg] Velocity Time Integral: 25.27 cm Tricuspid Valve Peak Velocity (Regurgitant Flow): 2.58 m/s, 2.60 m/s, 3.27 m/s Pulmonic Valve Mean Gradient: 3.35 mm[Hg], 2.28 mm[Hg] Mean Velocity: 0.82 m/s, 0.68 m/s Peak Velocity: 1.37 m/s, 0.99 m/s Peak Gradient: 3.95 mm[Hg], 8.73 mm[Hg], 6.29 mm[Hg] Right Atrium Right Atrium Systolic Pressure: 165.71 ml, 165.71 ml Dictated by: Nenita Camarillo M.D. on 06/06/2024 at 16:56 Approved by: Nenita Camarillo M.D. on 06/06/2024 at 17:00 Dictated By: NENITA CAMARILLO Signed By: 06/06/241700 DD/ 99 TD/TT: Rn Ante Partum:US abdomen complete Reviewed date:06/06/2024 07:57:43 PM Interpretation: Performing Lab: Notes/Report: Source Facility: [place] [address] Ultrasound Report Signed Patient: JOHNATHAN OJYA MR#: [id number] : 1955 Acct:[id number] Age/Sex: 68 / M ADM Date: 06/05/24 Loc: ICU 271-[address]: Ramon Sutherland M.D. Ordering Physician: Ramon Sutherland M.D. Date of Service: 06/06/24 Procedure(s): US abdomen complete Accession Number(s): [id number] cc: Ramon Sutherland M.D.; Physician,Non-Staff Jay [place] [address] Patient Name: JOHNATHAN JOYA MRN: [id number] date: 1955 Sex: M Assigned Patient Location: ICU Current Patient Location: ICU Accession/Order Number: [id number] Exam Date: 06/06/2024 14:02 Report Date: 06/06/2024 15:05 At the request of: RAMON SUTHERLAND Procedure: US abdomen complete EXAMINATION: US abdomen complete HISTORY: Jaundice COMPARISON: No relevant comparison available. TECHNIQUE: High resolution sonographic examination of the abdomen was performed. FINDINGS: LIVER: Normal size and echotexture. No significant masses. PORTAL VEIN: Duplex Doppler demonstrates normal hepatopetal flow pattern with flow velocity averaging 35 cm/s. BILIARY: Abnormal wall thickening of gallbladder, 5 mm. Trace amount of free fluid. No stones or abnormal duct dilation. PANCREAS: Not well seen. No visible mass, abnormal atrophy, or ductal dilatation. SPLEEN: Normal size and echotexture. KIDNEYS: Dilated right renal pelvis and calyces. Unremarkable left kidney. AORTA/VASCULAR: No aneurysm. OTHER: Small amount free fluid within left lung base. US/US abdomen complete IMPRESSION: 1. Acute versus chronic cholecystitis. 2. Dilated right renal pelvis representing hydronephrosis and possible ureteral obstruction versus prominent parapelvic cyst. No prior studies for comparison. 3. Small left pleural effusion. Electronically authenticated by: BRETT GRIER Date: 06/06/2024 15:05 Dictated By: Brett Grier M.D. Signed By: 06/06/24 1507 DD/ 1505 TD/TT: Rn Ante Partum:AMMONIA Reviewed date:06/06/2024 07:57:43 PM Interpretation: Performing Lab: Notes/Report: [facility] ,Bytsxth1230-17 umol/LPerforming Lab:see noteML - [facility] LBPROF 14(COMP METB) Reviewed date:06/06/2024 07:57:43 PM Interpretation: Performing Lab: Notes/Report: [facility] ,Zbbxsj982724-077 mmol/LPotassium3.73.5-5.1 mmol/TOdqsajkk24238-770 mmol/LCarbon Qjwipgo36.321.0-32.0 mmol/LAnion Gap21.0Zssksev8971-097 mg/dLBlood Urea Ogypsybv97.07.0-18.0 mg/dLCreatinine1.670.70-1.30 mg/dLEstimated GFR ( Lbomoeb72>=60 mL/min/1.73m 2Estimated GFR (Non- Ame41>=60 mL/min/1.73m 2 BUN Creatinine Ratio23.9Einsbeg3.98.5-10.1 mg/dLBilirubin Total2.80.2-1.0 mg/dL Aspartate Amino Eoznkgzpval3464-69 U/LAlanine Pxmsyhpfjiqnjszm0703-19 U/L Alkaline Wnrjlxnujhv5055-147 U/LTotal Protein6.96.4-8.2 g/dLAlbumin Level3.13.4- 5.0 g/dLGlobulin3.8Albumin Globulin Ratio0.8Performing Lab:see note - [facility] LBBNP Reviewed date:07/27/2024 12:41:58 PM Interpretation: Performing Lab: Notes/Report: [facility] ,NT Pro B Type Natriuretic Pmsj9557.0<=900.0 pg/mLRESULTS CALLED TO DR. SUTHERLAND Performing Lab:see [facility] LBFREE T3 Reviewed date:07/27/2024 12:41:58 PM Interpretation: Performing Lab: Notes/Report: [facility] ,Free T32.622.18-3.98 pg/mLPerforming Lab:see [facility] access [facility] LB LIPID PROFILE Reviewed date:07/27/2024 12:41:58 PM Interpretation: Performing Lab: Notes/Report: [facility] ,Nnjudozfxwqmg60<=150 mg/lDQleyyuajscv493<=200 mg/dLHDL Balkgesvddp6803-53 mg/dL > or =60 mg/dl - LOW CARDIOVASCULAR RISK <40 mg/dl - HIGH CARDIOVASCULAR RISK LDL Cholesterol Lnlpqtppma49.0 <100 mg/dl OPTIMAL 100-129 mg/dl NEAR OR ABOVE OPTIMAL 130-159 mg/dl BORDERLINE HIGH 160-189 mg/dl HIGH >190 mg/dl VERY HIGH VLDL TGGIGPRZUKG35.4Chol HDL Ratio1.6 3.3 - 4.4 LOW RISK 4.4 - 7.1 AVERAGE RISK 7.1 - 11.0 MODERATE RISK >11.0 HIGH RISK Performing Lab:see noteML - [facility] LBPROF 14(COMP METB) Reviewed date:07/27/2024 12:41:58 PM Interpretation: Performing Lab: Notes/Report: [facility] ,Tjgkko582523-086 mmol/LPotassium3.83.5-5.1 mmol/ROwaixrjk46257-360 mmol/LCarbon Qjxlzbk45.321.0-32.0 mmol/LAnion Gap13.9Donbwfk33080-098 mg/dLBlood Urea Nxybnkiz05.07.0-18.0 mg/dLCreatinine1.730.70-1.30 mg/dLEstimated GFR ( Ibnojto04>=60 mL/min/1.73m 2Estimated GFR (Non- Ame39>=60 mL/min/1.73m 2 BUN Creatinine Ratio22.2Cpgsnpp7.38.5-10.1 mg/dLBilirubin Total0.80.2-1.0 mg/dL Aspartate Amino Gltgywfknih2577-21 U/LAlanine Yklpzcathuidndyd6407-77 U/L Alkaline Bsqfsarwzrp4296-340 U/LTotal Protein7.86.4-8.2 g/dLAlbumin Level3.83.4- 5.0 g/dLGlobulin4.0Albumin Globulin Ratio0.9Performing Lab:see noteML - [facility] LBT4 Reviewed date:07/27/2024 12:41:58 PM Interpretation: Performing Lab: Notes/Report: [facility] ,T4 Thyroxine7.004.50-12.10 ug/dLPerforming Lab:see noteML - [facility] LBTSH Reviewed date:07/27/2024 12:41:58 PM Interpretation: Performing Lab: Notes/Report: [facility] ,Thyroid Stimulating Hormone2.5470.358-3.740 uIU/mLPerforming Lab:see note - [facility] LBTroponin I High Sensitivity Reviewed date:07/27/2024 12:41:58 PM Interpretation: Performing Lab: Notes/Report: [facility] ,Troponin I High Gqzwgzqqgkv31.44.0-76.1 pg/mL CUT-OFF POINTS HAVE BEEN ESTABLISHED BASED ON THE FOURTH UNIVERSAL DEFINITION OF MYOCARDIAL INFARCTION. THE UPPER REFERENCE LIMIT (URL) OF TROPONIN, DEFINED THE 99TH PERCENTILE OF cTnI DISTRIBUTION IN A REFERENCE POPULATION, HAS BEEN CONFIRMED THE DECISION THRESHOLD FOR [place] DIAGNOSIS. 99TH PERCENTILE = 76.2 PG/ML NOTE: HIGH-SENSITIVITY TROPONIN ASSAY IS NOT INTENDED TO BE USED IN ISOLATION BUT SHOULD BE INTERPRETED IN CONJUNCTION WITH OTHER DIAGNOSTIC AND CLINICAL INFORMATION. Performing Lab:see noteML - [facility] LBUA RANDOM W or MICROSCOPIC Reviewed date:11/20/2024 05:25:00 PM Interpretation: Performing Lab: Notes/Report: [facility] ,Color UrineLT. YELLOWYELLOWClarity UrineCLEARCLEARSpecific Whick Urine1.010 1.005-1.025pH Urine6.05.0-9.0Protein UrineNEGATIVENEG/TRACE mg/dLGlucose Urine UANEGATIVENEGATIVE mg/dLBilirubin UrineNEGATIVENEGATIVEKetones UrineNEGATIVE NEGATIVE mg/dLBlood UrineTRACE-INEGATIVENitrite UrinePOSITIVENEGATIVE Urobilinogen Urine0.20.2-1.0 EU/dLLeukocyte Esterase UrineMODERATENEGATIVEWBC Urine5-10NONE SEEN #/HPFRBC Urine0-20-2 #/HPFBacteria UrineSMALLNONE SEEN #/HPF Mucus UrineNONE SEENNONE SEENSquamous Epithelial Cell UrineRARENONE/RARE #/LPF Crystals Seen?None SeenNone Seen #/HPFCast Seen?NONE SEENNONE SEEN #/LPF Performing Lab:see note - [facility] LBProthrombin Time INR Reviewed date:07/27/2024 11:48:35 AM Interpretation: Performing Lab: Notes/Report: [facility] ,Prothrombin Time12.69.0-11.6 secINR1.21 DESIRED INR: 2.0-3.0 CONDITIONS NOT LISTED BELOW 2.5-3.5 FOR PROSTHETIC HEART VALVE REPLACEMENT 2.5-3.5 RECURRENT THROMBOSIS Performing Lab:see noteML - [facility] LBPTT Reviewed date:07/27/2024 11:48:35 AM Interpretation: Performing Lab: Notes/Report: [facility] ,Partial Thromboplastin Time35.422.3-36.2 secPerforming Lab:see note - [facility] LBPSA SCREENING Reviewed date:07/27/2024 11:48:35 AM Interpretation: Performing Lab: Notes/Report: [facility] ,Prostate Specific Antigen Scrn0.96<=4.00 ng/mLPerforming Lab:see note - [facility] LBGLYCOHEMOGLOBIN A1C Reviewed date:07/27/2024 11:48:35 AM Interpretation: Performing Lab: Notes/Report: [facility] ,Glycohemoglobin A1C6.14.5-6.2 % ADA RECOMMENDED LIMIT 4.0 - 6.0 ADA THERAPEUTIC TARGET < 7.0 ACTION SUGGESTED > 7.0 Estimated Average Vxqksjb788Sprquunjaa Lab:see note - [facility] LB CBC AUTO DIFF Reviewed date:07/27/2024 11:48:35 AM Interpretation: Performing Lab: Notes/Report: [facility] ,White Blood Count6.64.0-11.0 10 3/uLRed Blood Count4.274.70-6.10 10 6/uL Cwuthzwami11.114.0-18.0 g/iLLgwuicztbu79.642.0-54.0 %Mean Corpuscular Leiprj49.7 80.0-94.0 fLMean Corpuscular Oliudsazwd01.725.9-34.0 pgMean Corpuscular HGB Conc 30.129.9-35.2 g/dLRed Cell Distribution Width23.011.0-15.0 %Platelet Qeggd323 150-450 10 3/uLMean Platelet Volume9.99.5-13.5 fLNeutrophils Percent Auto73.4 43.0-75.0 %Lymphocytes Percent Auto14.420.5-60.0 %Monocytes Percent Auto7.01.7- 12.0 %Eosinophils Percent Auto3.30.9-7.0 %Basophils Percent Auto1.70.2-2.0 % Immature Granulocytes Pct Auto0.20.0-0.5 %Neutrophils Absolute Auto4.81.4-6.5 10 3/uLLymphocytes Absolute Auto1.01.2-3.8 10 3/uLMonocytes Absolute Auto0.50.3- 0.8 10 3/uLEosinophils Absolute Auto0.20.0-0.7 10 3/uLBasophils Absolute Auto0.1 0.0-0.1 10 3/uLImmature Granulocytes Abs Auto0.010.00-0.03 10 3/uLPerforming Lab:see noteML - [facility] LBAMMONIA Reviewed date:07/27/2024 11:48:35 AM Interpretation: Performing Lab: Notes/Report: [facility] ,Ammonia<1011-32 umol/LPerforming Lab:see note - [facility] LBMR head/brain wo con Reviewed date:06/06/2024 07:57:43 PM Interpretation: Performing Lab: Notes/Report: Source Facility: [place] [address] [place] [address] Magnetic Resonance Report Signed Patient: JOHNATHAN JOYA MR#: [id number] : 1955 Acct:[id number] Age/Sex: 68 / M ADM Date: 06/05/24 Loc: ICU 271-[address]: Ramon Sutherland M.D. Ordering Physician: Ramon Sutherland M.D. Date of Service: 06/06/24 Procedure(s): MR head/brain wo con Accession Number(s): [id number] cc: Ramon Sutherland M.D.; Physician,Non-Staff [place] [address] Patient Name: JOHNATHAN JOYA MRN: [id number] date: 1955 Sex: M Assigned Patient Location: ICU Current Patient Location: ICU Accession/Order Number: [id number] Exam Date: 06/06/2024 17:15 Report Date: 06/06/2024 18:11 At the request of: RAMON SUTHERLAND Procedure: MR head/brain wo con EXAM: MRI of the brain without IV contrast. REASON FOR EXAM: Altered mental status COMPARISON: CT scan from yesterday FINDINGS: Motion artifact substantially degrades image quality and severely impairs sensitivity of the exam. No abnormal restricted diffusion or evidence of evolving infarct. No hydrocephalus. No mass effect or midline shift. Mild generalized cerebral and cerebellar volume loss. Remainder unremarkable. MR/MR head/brain wo con IMPRESSION: No evidence of acute ischemic infarct. Exam is otherwise limited by the motion artifact. Electronically authenticated by: MATTHEW CARDOSO Date: 06/06/2024 18:11 Dictated By: Matthew Cardoso M.D. Signed By: 06/06/241813 DD/ 10 TD/TT: Rn Ante Partum:TSH Reviewed date:06/06/2024 07:57:43 PM Interpretation: Performing Lab: Notes/Report: [facility] ,Thyroid Stimulating Hormone3.3550.358-3.740 uIU/mLPerforming Lab:see noteML - [facility] LBT4 Reviewed date:06/06/2024 07:57:43 PM Interpretation: Performing Lab: Notes/Report: [facility] ,T4 Thyroxine5.704.50-12.10 ug/dLPerforming Lab:see noteML - [facility] LBFOLATE Reviewed date:06/06/2024 07:57:43 PM Interpretation: Performing Lab: Notes/Report: [facility] ,Rpxknf03.008.60-58.90 ng/mLPerforming Lab:see noteML - [facility] LB CBC AUTO DIFF Reviewed date:06/06/2024 07:57:43 PM Interpretation: Performing Lab: Notes/Report: [facility] ,White Blood Count7.14.0-11.0 10 3/uLRed Blood Count4.994.70-6.10 10 6/uL Yrascnzcwe32.214.0-18.0 g/dXAjjkqhvfxy00.342.0-54.0 %Mean Corpuscular Bokppj51.7 80.0-94.0 fLMean Corpuscular Ulokwnshev16.425.9-34.0 pgMean Corpuscular HGB Conc 30.029.9-35.2 g/dLRed Cell Distribution Width23.211.0-15.0 %Platelet Ohvpv859 150-450 10 3/uLMean Platelet Vkbmqm91.09.5-13.5 fLNeutrophils Percent Auto86.7 43.0-75.0 %Lymphocytes Percent Auto5.620.5-60.0 %Monocytes Percent Auto6.21.7- 12.0 %Eosinophils Percent Auto0.60.9-7.0 %Basophils Percent Auto0.60.2-2.0 % Immature Granulocytes Pct Auto0.30.0-0.5 %Neutrophils Absolute Auto6.21.4-6.5 10 3/uLLymphocytes Absolute Auto0.41.2-3.8 10 3/uLMonocytes Absolute Auto0.40.3- 0.8 10 3/uLEosinophils Absolute Auto0.00.0-0.7 10 3/uLBasophils Absolute Auto0.0 0.0-0.1 10 3/uLImmature Granulocytes Abs Auto0.020.00-0.03 10 3/uLPerforming Lab:see note - [facility] LBBNP Reviewed date:06/06/2024 07:57:43 PM Interpretation: Performing Lab: Notes/Report: [facility] ,NT Pro B Type Natriuretic Rtqx20214.0<=900.0 pg/mLRESULTS CALLED TO SHAUNA MORE RN AT 1009Performing Lab:see [facility] LBBILIRUBIN CONJUGATED (DIRECT) Reviewed date:06/06/2024 07:57:43 PM Interpretation: Performing Lab: Notes/Report: [facility] ,Bilirubin Direct1.10.0-0.2 mg/dLRESULTS CALLED TO SHAUNA MORE RN 1458 Performing Lab:see [facility] LBAMMONIA Reviewed date:06/06/2024 07:57:43 PM Interpretation: Performing Lab: Notes/Report: [facility] ,Zygqcsf6760-67 umol/LPerforming Lab:see [facility] LBECG 12 lead Reviewed date:06/10/2024 08:54:01 PM Interpretation: Performing Lab: Notes/Report: Source Facility: [facility]-[address] [place] [address] [address] Electrocardiograph Report Signed Patient: JOHNATHAN JOYA MR#: [id number] : 1955 Acct:[id number] Age/Sex: 68 / M ADM Date: 06/05/24 Loc: ICU 271-[address]: Ramon Sutherland M.D. Ordering Physician: Ramon Sutherland M.D. Date of Service: 06/05/24 Procedure(s): ECG 12 lead Accession Number(s): [id number] cc: [facility] Test Date: 2024-06-05 Pat Name: JOHNATHAN JOYA Department: Room: [facility] Gender: Male Hot Patcher: : 1955 Requested By: RAMON SUTHERLAND Order Number: [id number] Reading MD: RODRIGO MOORE Measurements Intervals [place] Rate: 76 P: -92787 [place]: -01905 QRS: -61 QRSD: 98 T: 238 QT: 404 QTc: 434 Interpretive Statements 1210 Atrial fibrillation 2630 Left anterior fascicular block Chronic inferolateral ST/T wave changes, can't exclude ischemia 9150 abnormal ECG Electronically Signed On 06-10-2024 20:38:55 EST by RODRIGO MOORE Dictated By: Rodrigo Moore D.O. Signed By: 06/10/242038 DD/ 58 TD/TT: Rn Ante Partum:Urine Culture - [facility] Reviewed date:12/02/2024 01:01:22 PM Interpretation: Performing Lab: Notes/Report: [facility] ,Urine Culture - [facility]See Below For Report Urine [facility] Testing performed at [facility] O:PANTSP Isolated Urine Culture - [facility] Organism Comments O:STAAUR Isolated Urine Culture - [facility] P[place]ar Count Organism: 1.1 Antibiotic Interpretation KANWAL Status Organism: 1.2 Antibiotic Interpretation KANWAL Status Urine Culture - [id number] [place] [address] Urine Culture - [facility] Testing performed at [facility] O:PANTSP Isolated Urine Culture - [facility] Organism Comments O:STAAUR Isolated Urine Culture - [facility] [place] Count Organism: 1.1 Antibiotic Interpretation KANWAL Status Organism: 1.2 Antibiotic Interpretation KANWAL Status Urine Culture [facility] For [facility] Urine [facility] Testing performed at [facility] O:PANTSP Isolated Urine Culture - [facility] Organism Comments O:STAAUR Isolated Urine Culture - [facility] [place] Count Organism: 1.1 Antibiotic Interpretation KANWAL Status Organism: 1.2 Antibiotic Interpretation KANWAL Status Urine Culture [facility] For [facility] Urine [facility] Testing performed at [facility] O:PANTSP Isolated Urine Culture - [facility] Organism Comments O:STAAUR Isolated Urine Culture - [facility] [place] Count Organism: 1.1 Antibiotic Interpretation KANWAL Status Organism: 1.2 Antibiotic Interpretation KANWAL Status Urine Culture - [facility]50,000 CFU/ML Urine Culture - [facility] Testing performed at [facility] O:PANTSP Isolated Urine Culture - [facility] Organism Comments O:STAAUR Isolated Urine Culture - [facility] [place]ar Count Organism: 1.1 Antibiotic Interpretation KANWAL Status Organism: 1.2 Antibiotic Interpretation KANWAL Status Urine Culture [facility] For [facility] Urine [facility] Testing performed at [facility] O:PANTSP Isolated Urine Culture - [facility] Organism Comments O:STAAUR Isolated [facility] [place] Count Organism: 1.1 Antibiotic Interpretation KANWAL Status Organism: 1.2 Antibiotic Interpretation KANWAL Status [facility] For Report [facility] Testing performed at [facility] O:PANTSP Isolated Urine Culture - [facility] Organism Comments O:STAAUR Isolated Urine Culture - [facility] [place] Count Organism: 1.1 Antibiotic Interpretation KANWAL Status Organism: 1.2 Antibiotic Interpretation KANWAL Status [facility]>100,000 [facility] Testing performed at [facility] O:PANTSP Isolated Urine Culture - [facility] Organism Comments O:STAAUR Isolated Urine Culture - [facility] [place] Count Organism: 1.1 Antibiotic Interpretation KANWAL Status Organism: 1.2 Antibiotic Interpretation KANWAL Status Urine Culture - [facility]ORGANISM #1 SENT TO [facility] FOR SENSITIVITY TESTING. [facility] Testing performed at [facility] O:PANTSP Isolated Urine Culture - [facility] Organism Comments O:STAAUR Isolated Urine Culture - [facility] [place] Count Organism: 1.1 Antibiotic Interpretation KANWAL Status Organism: 1.2 Antibiotic Interpretation KANWAL Status Urine Culture - [facility]CCEFOXITIN = INTERMEDIATE Urine Culture - [facility] Testing performed at [facility] O:PANTSP Isolated Urine Culture - [facility] Organism Comments O:STAAUR Isolated Urine Culture - [facility] [place] Count Organism: 1.1 Antibiotic Interpretation KANWAL Status Organism: 1.2 Antibiotic Interpretation KANWAL Status Urine Culture - [facility]See Below For Report Urine Culture [facility] Testing performed at [facility] O:PANTSP Isolated Urine Culture - [facility] Organism Comments O:STAAUR Isolated Urine Culture - [facility] [place] Count Organism: 1.1 Antibiotic Interpretation KANWAL Status Organism: 1.2 Antibiotic Interpretation KANWAL Status Urine Culture - [facility]MCAmoxicillin/Clavulanate S F Urine Culture - [facility] Testing performed at [facility] O:PANTSP Isolated Urine Culture - [facility] Organism Comments O:STAAUR Isolated Urine Culture - [facility] [place] Count Organism: 1.1 Antibiotic Interpretation KANWAL Status Organism: 1.2 Antibiotic Interpretation KANWAL Status Urine Culture - [facility]CCefpodoxime S F Urine Culture - [facility] Testing performed at [facility] O:PANTSP Isolated Urine Culture - [facility] Organism Comments O:STAAUR Isolated Urine Culture - [facility] [place] Count Organism: 1.1 Antibiotic Interpretation KANWAL Status Organism: 1.2 Antibiotic Interpretation KANWAL Status Urine Culture - FRMCErtapenem S F Urine Culture - [facility] Testing performed at [facility] O:PANTSP Isolated Urine Culture - [facility] Organism Comments O:STAAUR Isolated Urine Culture - [facility] [place] Count Organism: 1.1 Antibiotic Interpretation KANWAL Status Organism: 1.2 Antibiotic Interpretation KANWAL Status Urine Culture - [facility]CLevofloxacin S F Urine Culture - [facility] Testing performed at [facility] O:PANTSP Isolated Urine Culture - [facility] Organism Comments O:STAAUR Isolated Urine Culture - [facility] [place] Count Organism: 1.1 Antibiotic Interpretation KANWAL Status Organism: 1.2 Antibiotic Interpretation KANWAL Status Urine Culture - FR[facility]CTetracycline S F Urine Culture - [facility] Testing performed at [facility] O:PANTSP Isolated Urine Culture - [facility] Organism Comments O:STAAUR Isolated Urine Culture - [facility] [place] Count Organism: 1.1 Antibiotic Interpretation KANWAL Status Organism: 1.2 Antibiotic Interpretation KANWAL Status Urine Culture - [facility]efepime S F Urine Culture - [facility] Testing performed at [facility] O:PANTSP Isolated Urine Culture - [facility] Organism Comments O:STAAUR Isolated Urine Culture - [facility] [place] Count Organism: 1.1 Antibiotic Interpretation KANWAL Status Organism: 1.2 Antibiotic Interpretation KANWAL Status Urine Culture - [facility]See Below For Report Urine Culture - [facility] Testing performed at [facility] O:PANTSP Isolated Urine Culture - [facility] Organism Comments O:STAAUR Isolated Urine Culture - [facility] [place] Count Organism: 1.1 Antibiotic Interpretation KANWAL Status Organism: 1.2 Antibiotic Interpretation KANWAL Status Urine Culture - [facility]CDaptomycin S F Urine Culture - [facility] Testing performed at [facility] O:PANTSP Isolated Urine Culture - [facility] Organism Comments O:STAAUR Isolated Urine Culture - [facility] [place] Count Organism: 1.1 Antibiotic Interpretation KANWAL Status Organism: 1.2 Antibiotic Interpretation KANWAL Status Urine Culture - FR[facility]CLevofloxacin S F Urine Culture - [facility] Testing performed at [facility] O:PANTSP Isolated Urine Culture - [facility] Organism Comments O:STAAUR Isolated Urine Culture - [facility] [place] Count Organism: 1.1 Antibiotic Interpretation KANWAL Status Organism: 1.2 Antibiotic Interpretation KANWAL Status Urine Culture - [facility]CLinezolid S F Urine Culture - [facility] Testing performed at [facility] O:PANTSP Isolated Urine Culture - [facility] Organism Comments O:STAAUR Isolated Urine Culture - [facility] [place] Count Organism: 1.1 Antibiotic Interpretation KANWAL Status Organism: 1.2 Antibiotic Interpretation KANWAL Status Urine Culture - FRMCNitrofurantoin S F Urine Culture - [facility] Testing performed at [facility] O:PANTSP Isolated Urine Culture - [facility] Organism Comments O:STAAUR Isolated Urine Culture - [facility] [place] Count Organism: 1.1 Antibiotic Interpretation KANWAL Status Organism: 1.2 Antibiotic Interpretation KANWAL Status Urine Culture - FRMCOxacillin Kanwal S F Urine Culture - [facility] Testing performed at [facility] O:PANTSP Isolated Urine Culture - [facility] Organism Comments O:STAAUR Isolated Urine Culture - [facility] [place] Count Organism: 1.1 Antibiotic Interpretation KANWAL Status Organism: 1.2 Antibiotic Interpretation KANWAL Status Urine Culture - [facility]CPenicillin R F Urine Culture - [facility] Testing performed at [facility] O:PANTSP Isolated Urine Culture - [facility] Organism Comments O:STAAUR Isolated Urine Culture - [facility] [place] Count Organism: 1.1 Antibiotic Interpretation KANWAL Status Organism: 1.2 Antibiotic Interpretation KANWAL Status Urine Culture - [facility]CTetracycline S F Urine Culture - [facility] Testing performed at [facility] O:PANTSP Isolated Urine Culture - [facility] Organism Comments O:STAAUR Isolated Urine Culture - [facility] [place] Count Organism: 1.1 Antibiotic Interpretation KANWAL Status Organism: 1.2 Antibiotic Interpretation KANWAL Status Urine Culture - FRMCVancomycin S F Urine Culture - [facility] Testing performed at [facility] O:PANTSP Isolated Urine Culture - [facility] Organism Comments O:STAAUR Isolated Urine Culture - [facility] [place] Count Organism: 1.1 Antibiotic Interpretation KANWAL Status Organism: 1.2 Antibiotic Interpretation KANWAL Status Urine Culture - [facility]CCeftaroline S F Urine Culture - [facility] Testing performed at [facility] O:PANTSP Isolated Urine Culture - [facility] Organism Comments O:STAAUR Isolated Urine Culture - [facility] [place] Count Organism: 1.1 Antibiotic Interpretation KANWAL Status Organism: 1.2 Antibiotic Interpretation KANWAL Status Urine Culture - [facility]CCiprofloxacin S F Urine Culture - [facility] Testing performed at [facility] O:PANTSP Isolated Urine Culture - [facility] Organism Comments O:STAAUR Isolated Urine Culture - [facility] [place] Count Organism: 1.1 Antibiotic Interpretation KANWAL Status Organism: 1.2 Antibiotic Interpretation KANWAL Status Urine Culture - FR[facility]CTrimethoprim/Sulfa S F Urine Culture - [facility] Testing performed at [facility] O:PANTSP Isolated Urine Culture - [facility] Organism Comments O:STAAUR Isolated Urine Culture - [facility] [place] Count Organism: 1.1 Antibiotic Interpretation KANWAL Status Organism: 1.2 Antibiotic Interpretation KANWAL Status Performing Lab:see note ML - 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 Reason For Referral No Information Medications Medication SIG (Take, Route, Frequency, Duration) Notes Start Date End Date Status Tamsulosin HCl 0.4 MG 1 capsule Orally Once a da y; Duration: 90 days ActiveAmoxicillin-Pot Clavulanate 875-125 MG1 tablet Orally every 12 hrs; Duration: 10 5ActivePotassium Chloride Nathaly ER 10 MEQ2 tablet with food Oral Once Daily; Duration: 90 daysActiveFurosemide 40 MG1 tablet Orally Once a day; Duration: 90 daysActiveEliquis 5 MG1 tablet Orally Twice Daily; Duration: 90 daysActiveFolic Acid 1 MG1 tablet Orally Once a day; Duration: 90 daysActiveSacubitril-Valsartan 24-26 MG1 tablet Orally Twice a day; Duration: days5ActiveAtorvastatin Calcium 40 MG1 tablet Orally Once a day; Duration: 90 daysActiveIron (Ferrous Sulfate) 325 (65 Fe) MG1 tablet Orally bid; Duration: 90 days5ActiveKetoconazole 2 %1 application Externally bid; Duration: 14 5ActiveLactulose 10 GM/15ML15 mL as needed Orally Once a day; Duration: 90 daysActiveThiamine HCl 100 MG1 tablet Orally Once a day; Duration: 90 daysActivePyridium 200 MG1 tablet after meals Orally Three times a day; Duration: 2 days5ActiveCarvedilol 12.5 MG1 tablet with food Oral Twice a day; Duration: 90 daysActiveMupirocin 2 %1 application Externally Twice a day; Duration: 5 days5ActiveDoxepin HCl 10 MG1 capsule at bedtime Orally Once a day; Duration: 30 day(s)5Active Social History Tobacco Use: Social History Observation Description Date Details (start date - stop date) Former Smoker NA - NA Tobacco Control (Standard) Question Answer Notes Tobacco use: Former smoker How long has it been since you last smoked?Greater than 10 yearsAUDIT-C (Standard) Question Answer Notes Did you have a drink containing alcohol in the p ast year? No Jltbmd1WskxuohgwcgrplOukiiwuu Problems Problem Type SNOMED Code ICD Code Onset Dates Problem Status W/U Status Risk Notes Problem Information temporarily unavaila ble Congestive heart failure (CHF) (428.0) ActiveconfirmedProblemInformation temporarily unavailableAtrial fibrillation (I48.91)ActiveconfirmedProblemInformation temporarily unavailableCHF (congestive heart failure) (I50.9)ActiveconfirmedProblemInformation temporarily unavailable Afib (I48.91)ActiveconfirmedProblemInformation temporarily unavailableAnemia (D64.9)ActiveconfirmedProblemInformation temporarily unavailableBenign essential HTN (I10)ActiveconfirmedProblemInformation temporarily unavailableInsomnia (G47.00)ActiveconfirmedProblemInformation temporarily unavailableChronic kidney disease (CKD) stage G2/A1, mildly decreased glomerular filtration rate (GFR) xvibztn44-81 mL/min/1.73 square meter and albuminuria creatinine ratio less than 30 mg/g (N18.2)ActiveconfirmedProblemInformation temporarily unavailable Congestive heart failure (I50.9)ActiveconfirmedProblemInformation temporarily unavailableAtrial fibrillation with RVR (I48.91)ActiveconfirmedProblem Information temporarily unavailableHyperbilirubinemia (E80.6)Activeconfirmed ProblemInformation temporarily unavailableBladder spasm (N32.89)Activeconfirmed ProblemInformation temporarily unavailableLiver cirrhosis (K74.60)Active confirmedProblemInformation temporarily unavailableAltered mental status (R41.82)ActiveconfirmedProblemInformation temporarily unavailableBP (high blood pressure) (I10)ActiveconfirmedProblemInformation temporarily unavailableRapid atrial fibrillation (I48.91)Activeconfirmed Vital Signs Blood pressure diastolic 82 mm Hg 11/20/2024 Xhvarw33 in11/20/2024lood pressure dzxraqlp355 mm Hg11/20/20246394Lejncr316.8 lbs 11/20/2024BMI20.86 kg/m211/20/2024 Encounters Encounter Location Date Provider Diagnosis [id number] [facility] [place] [address] 07/03/2024 [facility] [facility] [place] [address] [facility] [facility] [place] [address]/[facility] [facility] [place] [address]/Doug HoyInsomnia G47.00[facility] [facility] [place] [address]/[facility] [facility] [place] [address] 11/21/2024[facility] [facility] [place] [address]/[facility] [facility] [place] [address]/[facility] [place] [place] [address]/Doug HoyCongestive heart failure I50.9 ; Atrial fibrillation with RVR I48.91 ; Liver cirrhosis K74.60 ; Altered mental status R41.82 ; Atrial fibrillation I48.91 and BP (high blood pressure) [facility] [place] [address]/Doug HoyBladder spasm N32.89 and Insomnia G47.00[facility] [place] [address]/ Zac HoyBladder spasm N32.89 Assessments Encounter Date Diagnosis (ICD Code) Assessment Notes Treatment Notes Treatment Clinical Notes Section Notes 07/03/2024 Congestive heart failure (ICD-10 - I50.9) 07/03/2024trial fibrillation with RVR (ICD-10 - I48.91)08/02/2024ladder spasm (ICD-10 - N32.89)08/02/2024Insomnia (ICD-10 - G47.00)11/20/2024ladder spasm (ICD-10 - N32.89)11/20/2024Insomnia (ICD-10 - G47.00)07/03/2024Liver cirrhosis (ICD-10 - K74.60)07/03/2024ltered mental status (ICD-10 - R41.82)07/03/2024 Atrial fibrillation (ICD-10 - I48.91)07/03/2024P (high blood pressure) (ICD-10 - I10) Plan Of Treatment Pending Test Test Name Order Date HEMOGLOBIN A1C (GLYCO) 07/03/2024 LIPID PANEL (CHOL/TRIG/HDL/LDL) 07/03/19 25 CBC WITH DIFF (EXP 03/2025) 07/03/2024 Urinalysis Microscopic 11/20/2024 High Sensitivity Troponin 07/03/2024 AMMONIA 07/03/2024 BNP 07/03/2024 CULTURE URINE 11/20/2024 PROTIME 07/03/2024 PTT 07/03/2024 THYROID PANEL (T4/TSH/FREE T3) 5 PSA, SCREENING 07/03/2024 CMP (COMP MET CONWAY) w/eGFR CKD-EPI 2024 Insurance Providers Payer Name Payer Address Payer Phone Subscriber Number Group Number Insured Name Patient Relationship to Insured Coverage Start Date Coverage End Date MEDICARE [place] [address] [address] [id number] Elizabeth Joya - patient is the [id number] 2019[employer] PPO PLUS LOCAL [address]AN[address] [place] [id number] Joya - patient is the [id number] 2019[employer] [address] [place] [id number] GMElizabeth rodriguez - patient is the insured Medical (General) History Medical History History ICD Code Atrial fibrillation I48.91 Congestive heart failure (CHF) 428.0 Liver cirrhosis K74.60 Hospitalization History Reason Date(Month/Year) [facility]- Dehydration, Hallucinations 05/2024
--- OUTSIDE RECORDS SUMMARY | 2025-04-06 13:35 | XMS_ITS | Clinical Summary ---
Author Organization [facility] s tem Address [id number] [address] [place] [address] Care Team Providers Care Trial Court Judge Name Role Phone Services, Primary Care Provider Allergies No known active allergies Medications MedicationSigDispense QuantityRefillsLast FilledStart DateEnd DateStatus apixaban (ELIQUIS) 5 mg tablet Take 1 tablet (5 mg total) by mouth every 12 (twelve) hours. 180 tablet 1Active potassium chloride (K-TAB,KLOR-CON) 10 MEQ CR tablet TAKE 2 TABLETS BY MOUTH EVERY DAY 180 tablet 1052Active atorvastatin (LIPITOR) 40 mg tablet Take 1 tablet (40 mg total) by mouth nightly. 30 tablet 5Active carvediloL (COREG) 12.5 mg tablet Take 1 tablet (12.5 mg total) by mouth in the morning and 1 tablet (12.5 mg total) before bedtime. 60 tablet 5Active folic acid (FOLVITE) 1 mg tablet Take 1 tablet (1 mg total) by mouth in the morning. 30 tablet 5Active furosemide (LASIX) 40 mg tablet Take 1 tablet (40 mg total) by mouth daily. 30 tablet 5Active QUEtiapine (SEROquel) 25 mg tablet Take 1 tablet (25 mg total) by mouth nightly. 30 tablet 5Active tamsulosin (FLOMAX) 0.4 mg capsule Take 1 capsule (0.4 mg total) by mouth nightly. 30 capsule 5Active thiamine HCl (VITAMIN B-1) 100 mg tablet Take 1 tablet (100 mg total) by mouth in the morning. 30 tablet 5Active Active Problems ProblemNoted DateDiagnosed DateAcute lnpvlkmyuxmxnb83/31/1525Khxuieg61/11/2018 Pure hypercholesterolemiaHypokalemiaHypertensive heart disease without heart failureChronic atrial fibrillationAbnormal EKGBradycardia Resolved Problems ProblemNoted DateDiagnosed DateResolved JaduMdloazeauerv55/18/2021 Immunizations ImmunizationAdministration DatesNext DueInfluenza Vaccine, Quadrivalent, Lotniceafd07/15/2021 Family History Medical HistoryRelationNameCommentsNo Known ProblemsFatherNo Known Problems MotherRelationNameStatusCommentsFatherDeceasedMotherDeceased Social History Tobacco UseTypesPacks/DayYears UsedDateSmoking Tobacco: FormerSmokeless Tobacco: Never Tobacco Cessation:Counseling Given: Not Answered Alcohol UseStandard Drinks/WeekCommentsYes7 (1 standard drink = 0.6 oz pure alcohol)[facility] UtilitiesAnswerDate RecordedIn the past 12 months has the [employer], oil, or water [employer] threatened to shut off services in your home?Patient unable to cvewex8906/07/2024UDIT-CAnswerDate RecordedQ1: How often do you have a drink containing alcohol?Patient unable to fynlvy8006/07/2024Q2: How many drinks containing alcohol do you have on a typical day when you are drinking?Patient unable to wflpgu2406/07/2024Q3: How often do you have six or more drinks on one occasion?Patient unable to cichoa2006/07/2024PRAPARE - TransportationAnswerDate RecordedIn the past 12 months, has lack of transportation kept you from medical appointments or from getting medications?Patient unable to shfywo9306/07/2024In the past 12 months, has lack of transportation kept you from meetings, work, or from getting things needed for daily living?Patient unable to hcrfqv5006/07/2024 Housing InstabilityAnswerDate RecordedAre you worried or concerned that in the next two months you may not have stable housing that you own, rent or stay in as a part of a household?Patient unable to xlbktw7306/07/2024hildcareAnswerDate ZtotseglGixozqovrDaekgfc32/12/2019EmploymentAnswerDate RecordedEmploymentUnknown 10/17/2018Hunger ScreeningAnswerDate RecordedWithin the past 12 months we worried whether our food would run out before we got money to buy more.Sometimes True06/07/2024Within the past 12 months the food we bought just didn't last and we didn't have money to get more.Sometimes True06/07/2024Purpose - LifeAnswer Date RecordedPurpose and direction in ndfzQjubtrn67/15/2021ex and Gender InformationValueDate RecordedSex Assigned at BirthNot on fileLegal SexMale 12/11/2014 11:37 AM EDTGender IdentityNot on fileSexual OrientationNot on file Last Filed Vital Signs Vital SignReadingTime TakenCommentsBlood Mpketnda770/9706/12/2024 11:46 AM EST Zmygc362806/12/2024 11:46 AM OJJPguodclqqsj49.9 ??C (98.5 ??F)06/12/2024 11:46 AM ESTRespiratory Igzl903306/12/2024 11:46 AM ESTOxygen Pqplbayaai188%06/12/2024 11:46 AM ESTInhaled Oxygen Concentration--Esstgc14.9 kg (138 lb 10.7 oz) 06/10/2024 4:40 AM LZIDqmvqy212.9 cm (6')06/07/2024 9:25 AM ESTBody Mass Index 18.8106/07/2024 9:25 AM EST Plan of Treatment Health MaintenanceDue DateLast DoneCommentsDepression Jcsgyctsd25/26/1967Tobacco Aozypynwp83/26/1967DTaP,Tdap and Td Vaccines (1 - Tdap)1973Zoster (Shingles) Vaccine (1 of 2)2004RSV ( or age 60+ yrs) (1 - Risk 60- 74 years 1-dose series)2014bdominal Aortic Aneurysm (AAA) Screen 08/01/2019Fall Risk Vahaogeof55/26/2020Influenza Vgtnzxu48/ Adult BMI Rxvywmnqg04 Goals GoalPatient Goal TypeAssociated ProblemsRecent ProgressPatient-Stated?Author Return to home Angelina Marcial RN Note: Evaluation of progress towards goal: Medical Devices Not on file Insurance B[employer]L SHABAZZ [id number] Advance Directives * Full Code (Latest Code Status on File) Date ActivatedDate InactivatedComments06/07/2024 5:32 AM06/12/2024 3:53 PM Care Teams Team MemberRelationshipSpecialtyStart DateEnd Services, [address] [place], [place] PCP - GeneralFamily Medicine01/01/17
[2025-04-06] MEDS: DILTIAZEM HCL 25 MG/5 ML VIAL 20 MG IV (13:45)
[2025-04-06 14:16] LABS: Hematocrit 30.5 % (42.0-54.0); Hemoglobin 8.6 g/dL (14.0-18.0); Mean Corpuscular HGB Conc 28.2 g/dL (29.9-35.2); Mean Corpuscular Hemoglobin 19.6 pg (25.9-34.0); Mean Corpuscular Volume 69.5 fL (80.0-94.0); Platelet Count 484 10^3/uL (150-450); Red Blood Count 4.39 10^6/uL (4.70-6.10); White Blood Count 6.8 10^3/uL (4.0-11.0)
[2025-04-06 14:26] LABS: Anion Gap 15.6; Blood Urea Nitrogen 31.0 mg/dL (7.0-18.0); Calcium 8.8 mg/dL (8.5-10.1); Carbon Dioxide 25.3 mmol/L (21.0-32.0); Chloride 105 mmol/L (98-107); Estimated GFR (African America 42 (>=60 mL/min/1.73m^2); Estimated GFR (Non-African Ame 35 (>=60 mL/min/1.73m^2); Glucose 118 mg/dL (74-106); Potassium 3.9 mmol/L (3.5-5.1); Sodium 142 mmol/L (136-145)
[2025-04-06 14:38] LABS: Basophils Abs Manual 0.00 10^3/uL (0.00-0.10); Basophils Percent Manual 0.0 % (0.2-2.0); Eosinophils Absolute Manual 0.00 10^3/uL (0.00-0.70); Eosinophils Percent Manual 0.0 % (0.9-7.0); Lymphocytes Absolute Manual 0.54 10^3/uL (1.20-3.80); Lymphocytes Percent Manual 8.0 % (20.5-60.0); Monocytes Absolute Manual 0.40 10^3/uL (0.30-0.80); Monocytes Percent Manual 6.0 % (1.7-12.0); Segmented Neut Absolute Manual 5.84 10^3/uL (1.4-6.5); Segmented Neutrophils % Manual 86.0 (43.0-75.0)
[2025-04-06 14:39] LABS: Hypochromasia 1+
[2025-04-06 15:40] LABS: Glucose Urine UA NEGATIVE (NEGATIVE)
--- OUTSIDE RECORDS SUMMARY | 2025-04-06 15:42 | XMS_ITS | CCD ---
Author Organization [facility] Care Team Providers Care Customer Support Executive Name Role Phone MISC, DOCTOR Primary Care Unavailable PAY, PETR Admitting Unavailable PAY, PETR Attending Unavailable PAY, PETR Consulting Unavailable Shaikh Juarez MD Primary Care Provider SHAIKH JUAREZ Attending Unavailable SHAIKH JUAREZ Attending Unavailable SHAIKH JUAREZ Attending Unavailable Services, [facility] Primary Care Provider SERVICES, [facility] Primary Care Unava ilable ANTIONE OZUNA Consulting Unavailable SERVICES, [facility] Primary Care Unava ilable SERVICES, [facility] Care Unava ilable SERVICES, [facility] Care Unava ilable SERVICES, [facility] Care Unava ilable SERVICES, [facility] Care Unava ilable MATTHEW PHILIPPE Admitting Unavailable RAMON SUTHERLAND Referring Unavailable SERVICES, [facility] Care Unava ilable CATRINA MARIE Consulting Unavailable TABATHA LEÓN Attending Unavailable HOPPS VLIZBETH Consulting Unavailable NICOLAS WELLS Consulting Unavailable RICHARDSON BRANDT Consulting Unavailable FREDERICK LUONG Consulting Unavailable Ramon Sutherland Primary Care Physician [phone] Ramon Sutherland MD Attending Provider Ramon Sutherland Attending Unavailable Ramon Sutherland Admitting Unavailable Shaikh Juarez MD Primary Care Provider Jaleel Chacon MD Primary Care Provider Skylar Gustafson NP Unavailable [phone] MD DONAL MCGARRY Attending Unav MD DONAL Gilliam Attending Unav MD DONAL Gilliam Attending Shanthi Morrissey Attending Unavailable MD DONAL MCGARRY Attending KIKI Holder Attending Unavailable KIKI OLIVIER Attending Unavailable KIKI OLIVIER Attending Unavailable Allergies Allergy ClassificationReported Allergen(s)Allergy TypeDate of OnsetReaction(s) Facility (1 source)No Known Medication Allergies; Translations: [No Known Medication Allergies]Propensity to adverse reactions (disorder)[facility] Repository Medications Current Medications MedicationDrug Class(es)DatesSig (Normalized)Sig (Original)acetaminophen 325 mg oral tablet (5 sources)Start: 22-78-8992onjx 1 mg by mouth every four hoursacetaminophen 325 mg Tab mg tab(s), Oral, q4hr, Refills(s) 0 Start Date: 06/25/24 Status: Ordered Medication Dispense Status: Completed Total Allowed Fills: 1 Fills Dispensed: 0 Start: 76-71-1259dgtr 1 tablet by mouth every four hours as fujbee642 mg, oral, Every 4 hours PRN, Temperature greater than 38.3 C, Starting on Mon06/07/24 at 0531, [Warning: Total Acetaminophen not to exceed more than 4 grams (4000 mg) in 24 hours]apixaban 5 mg oral tablet (11 sources)Factor Xa InhibitorStart: 87-26-3012qupz 1 mg by mouth twice daily apixaban 5 mg oral tablet mg tab(s), Oral, BID, Refills(s) 0 Start Date: 06/25/24 Status: Ordered Medication Dispense Status: Completed Total Allowed Fills: 1 Fills Dispensed: 0Start: 31-40-5478uomp 1 tablet by mouth in the morningEliquis 5 MG tablet Take 5 mg by mouth in the morning and 5 mg before bedtime. 0 05/17/2023 ActiveStart: 05-61-6035ocsm 1 tablet by mouth every twelve hours apixaban (ELIQUIS) 5 mg tablet Take 1 tablet (5 mg total) by mouth every 12 (twelve) hours. 180 tablet 3 01/04/2021 Activeatorvastatin 40 mg oral tablet (7 sources)HMG-CoA Reductase InhibitorStart: 60-24-5966wiamidsgoaoh 40 mg Tab 40 mg = 1 tab(s), Refills(s) 0 Start Date: 06/25/24 Status: Ordered Medication Dispense Status: Completed Total Allowed Fills: 1 Fills Dispensed: 0Start: 54-36-9814mapj 1 tablet by mouth once dailyatorvastatin (LIPITOR) 40 mg tablet Take 1 tablet (40 mg total) by mouth nightly. 30 tablet 06/12/2024 Active carvedilol 12.5 mg oral tablet (7 sources)alpha-Adrenergic Manisha, beta-Adrenergic BlockerStart: 06-25-2024 carvedilol 12.5 mg Tab 12.5 mg = 1 tab(s), Refills(s) 0 Start Date: 06/25/24 Status: Ordered Medication Dispense Status: Completed Total Allowed Fills: 1 Fills Dispensed: 0Start: 30-17-3502autv 1 tablet by mouth in the morning, then take 1 tablet by mouth at bedtimecarvediloL (COREG) 12.5 mg tablet Take 1 tablet (12.5 mg total) by mouth in the morning and 1 tablet (12.5 mg total) before bedtime. 60 tablet 06/12/2024 ActivecefTRIAXone 1000 mg injection (2 sources)Cephalosporin AntibacterialStart: 06-07-2024 End: 13-96-7515ikoz 1000 mg intravenously every twenty-four hours1,000 mg, intravenous, at 100 mL/hr, Administer over 30 Minutes, Every 24 hours, First dose (after last modification) on Mon06/12/24 at 1030, For 1 day, Look-alike/sound-alike medication - verify indication for use. Do not co- administer with calcium-containing solutions such as Lactated Ringers., Ind ication: Intra-abdominaldiazePAM 10 mg oral tablet (3 sources)BenzodiazepineStart: 67-50-0966Dxqnye 10 mg Tab 10 mg = 1 tab(s), Oral, Once, PRN for anxiety, take one hour prior to procedure, #1 tab(s), Refills(s) 0, Pharmacy: [facility] [id number], 180, cm, 07/19/24 13:40:00 EDT, Height/Length Dosing, 80, kg, 07/19/24 13:40:00 EDT, Weight Dosing Start Date: 10/15/24 Status: Ordered Medication Dispense Status: Completed Quantity: 1.0 Unit: tab(s) Total Allowed Fills: 1 Fills Dispensed:0docusate sodium 50 mg / sennosides, snf 8.6 mg oral tablet (1 source)Start: 61-46-8388tkau 2 tablets by mouth once daily2 tablet, oral, Nightly, First dose on Mon06/11/24 at 2200folic acid 1 mg oral tablet (7 sources)Start: 33-91-4159fcuge acid 1 mg Tab 1 mg = 1 tab(s), Refills(s) 0 Start Date: 06/25/24 Status: Ordered Medication Dispense Status: Completed Total Allowed Fills: 1 Fills Dispensed: 0Start: 11-93-1263encf 1 tablet by mouth in the morningfolic acid (FOLVITE) 1 mg tablet Take 1 tablet (1 mg total) by mouth in the morning. 30 tablet 06/13/2024 ActiveStart: 63-95-2266lhwp 1 tablet by mouth in the morningfolic acid (FOLVITE) 1 mg tablet Take 1 tablet (1 mg total) by mouth in the morning. 30 tablet 06/13/2024Start: 22-66-9031kbcs 1 mg by mouth once daily1 mg, oral, Daily, First dose on Mon06/07/24 at 0900, Look-alike/sound-alike medication - verify indication for use.furosemide 40 mg oral tablet (9 sources)Loop DiureticStart: 09-33-6038ikjdsqarnz 40 mg Tab 40 mg = 1 tab(s), Refills(s) 0 Start Date: 06/25/24 Status: Ordered Medication Dispense Status: Completed Total Allowed Fills: 1 Fills Dispensed: 0Start: 51-65-2729ticl 1 tablet by mouth once dailyfurosemide (LASIX) 40 mg tablet Take 1 tablet (40 mg total) by mouth daily. 30 tablet 06/13/2024 ActiveStart: 05-36-0269yzae 1 tablet by mouth once dailyfurosemide (LASIX) 40 mg tablet Take 1 tablet (40 mg total) by mouth daily. 30 tablet 06/13/2024Start: 01-40-021477 mg, oral, Daily, First dose on Mon06/11/24 at 0900, HOLD FOR BLOOD PRESSURE LESS THAN 100 MMHG Loo k-alike/sound-alike medication - verify indication for use.Start: 06-08-2024 End: 07-42-4824sbij 40 mg intravenously every twelve hours40 mg, intravenous, Every 12 hours, First dose on Mon06/08/24 at 1100, For 6 doses, Look-alike/sound- alike medication - verify indication for use. IVP rate = 20 mg/minStart: 05-24-2023 End: 97-44-8989vbol 1 tablet by mouth in the morningfurosemide [...] ml glucose 50 mg/ml injection (3 sources)Start: 12-42-7843hexf 70 mg intravenously every hpwb661 mL/hr, intravenous, Continuous PRN, blood glucose less [...] VESICANT (RED) Warning: HYPERTONIC solution.LORazepam (3 sources)BenzodiazepineStart: 26-91-8837gbnq 1 tablet by mouth every four hours as neededLORazepam (ATIVAN) tablet 2 mgStart: 69-20-8528awca 1 tablet by mouth every four hours as neededLORazepam (ATIVAN) tablet 3 mgStart: 06-08-2024 take 1 tablet by mouth every four hours as neededLORazepam (ATIVAN) tablet 1 mg losartan potassium 100 mg oral tablet (3 sources)Angiotensin 2 Receptor BlockerStart: 05-25-2023 End: 05-96-6120isqp 1 tablet by mouth in the morninglosartan (Cozaar) 100 MG tablet Indications: Chronic systolic heart failure (HCC) , Primary hypertension Take 1 tablet (100 mg) by mouth in the morning. 90 tablet 06/28/2023 Ywlekg86 ml magnesium sulfate 40 mg/ml injection (2 [...] needed.melatonin 5 mg oral tablet (1 source)Start: 45-44-4852pgzn 5 mg by mouth once daily5 mg, oral, Nightly, [place] Mon06/07/24 [place] [address] ml metoprolol tartrate 1 mg/ml injection (4 sources)beta-Adrenergic BlockerStart: 69-65-1488bqnn 5 mg intravenously every six hours as needed5 mg, intravenous, Every 6 hours PRN, For heart rate greater than 120, Starting on 06/08/24 at 1711, Look-alike/sound-alike medication - verify indication for use.Start: 05-24-2023 End: 40-50-9700lztm 1 tablet by mouth every twenty-four hours in the morning metoprolol succinate XL (Toprol XL) 100 MG 24 hr tablet Indications: Chronic systolic heart failure(HCC) Take 1 tablet (100 mg) by mouth in the morning. Do not crush or chew.. 90 tablet 06/28/2023 Activemidodrine hydrochloride 5 mg oral tablet (2 sources)alpha-Adrenergic AgonistStart: 23-80-1021qmch 5 mg by mouth three times daily5 mg, oral, 3 times daily, First dose on 06/09/24 at 1400, Hold if blood pressure is greater ijws563 mmHg Look-alike/sound-alike medication - verify indication for use.Start: 06-09-2024 End: 39-07-0494zpgn 5 mg by mouth once5 mg, oral, Once, On 06/09/24 at 1330, For 1 dose, Look-alike/sound-alike medication - verify indication for use. gzyxldra-jcrh-MC-calcium &mins (THERAGRAN-M) 9 mg iron-400 mcg tablet 1 tablet (1 source)Start: 01-89-1123xsjr 1 tablet by mouth once daily as needed1 tablet, oral, Daily PRN, administer instead of IV MVI when patient tolerating oral diet, Startingon Mon06/07/24 at 0620polyethylene glycol 3350 21763 mg powder for oral solution (1 source)Osmotic LaxativeStart: g, oral, Daily PRN, constipation, Starting on Mon06/11/24 at 0753, Look-alike/sound-alike medication - verify indication for use. Dissolve 1 packet (17 gm) in 8 ounces of water, juice, soda, coffeeor tea.Potassium Chloride (8 sources)Start: 34-82-5076mmti 1 dose by mouth twice dailyPotassium Chloride (Ufd-Lsdh-Ibd 10) mEq, Oral, BID, Refills(s) 0 Start Date: 06/25/24 Status: Ordered Medication Dispense Status: Completed Total Allowed Fills: 1 Fills Dispensed: 0Start: 97-50-9318Hnauqlslj Chloride (Zox-Ysar-Qby 10) mEq, Oral, BID, Refills(s) 0 Start Date: 06/25/24 Status: Ordered Repeat number: 1Start: 53-03-4882Szdbekjto Chloride (Gnn-Spyr-Hmr 10) mEq, Oral, BID, Refills(s) 0 Start Date: 06/25/24 Status: OrderedStart: 15-76-7316dttntsssr chloride (K-TAB,KLOR-CON) CR tablet 20-40 mEqStart: 73-54-0155iikigmaja chloride (K-TAB,KLOR-CON) 10 MEQ CR tablet TAKE 2 TABLETS BY MOUTH EVERY DAY 180 tablet 1 09/16/2021 ActiveQUEtiapine 25 mg oral tablet (3 sources)Atypical AntipsychoticStart: 79-63-2354eaqe 1 tablet by mouth once dailyQUEtiapine (SEROquel) 25 mg tablet Take 1 tablet (25 mg total) by mouth nightly. 30 tablet 06/12/2024 Activesacubitril 24 mg / valsartan 26 mg oral tablet (3 sources)Angiotensin 2 Receptor BlockerStart: 34-29-1234vvtk 1 tablet by mouth twice dailyEntresto 24 mg-26 mg oral tablet tab(s), Oral, BID, Refill(s) 0 Start Date: 07/19/24 Status: OrderedMedication Dispense Status: Completed Total Allowed Fills: 1 Fills Dispensed: 0spironolactone 50 mg oral tablet (3 sources)Aldosterone AntagonistStart: 05-24-2023 End: 26-74-8932rzil 1 tablet by mouth in the morningspironolactone (Aldactone) 50 MG tablet Indications: Chronic systolic heart failure (HCC) Take 1 tablet (50 mg) by mouth in the morning. 90 tablet 06/28/2023 Activesulfamethoxazole 800 mg / trimethoprim 160 mg oral tablet (1 source)Dihydrofolate Reductase Inhibitor Antibacterial, Sulfonamide AntimicrobialStart: 10-21-2024 End: 77-74-9852bokw 1 tablet by mouth twice dailyBactrim D.S. 800 mg-160 mg Tab 1 tab(s), Oral, BID for 3 day(s), 6 tab(s), Refill(s) 0, [facility] [id number], 180, cm, 07/19/24 13:40:00 EDT, Height/Length Dosing, 80, kg, 07/19/24 13:40:00 EDT, Weight Dosing Start Date: 10/21/24 Stop Date: 10/24/24 Status: Ordered Quantity: 6.0 Unit: tab(s) Repeat number: 1tamsulosin hydrochloride 0.4 mg oral capsule (7 sources)alpha-Adrenergic BlockerStart: 22-07-0079uuiglyrpch 0.4 mg Cap 0.4 mg = 1 cap(s), Refills(s) 0 Start Date: 06/25/24 Status: Ordered Medication Dispense Status: Completed Total Allowed Fills: 1 Fills Dispensed: 0Start: 42-42-8636fpym 1 capsule by mouth once dailytamsulosin (FLOMAX) 0.4 mg capsule Take 1 capsule (0.4 mg total) by mouth nightly. 30 capsule 06/12/2024 Activethiamine 100 mg oral tablet (7 sources)Start: 89-75-4030deub 1 mg by mouth once dailythiamine 100 mg Tab mg tab(s), Oral, Daily, Refills(s) 0 Start Date: 06/25/24 Status: Ordered Medication Dispense Status: Completed Total Allowed Fills: 1 Fills Dispensed: 0Start: 22-15-0868uvic 1 tablet by mouth in the morningthiamine HCl (VITAMIN B-1) 100 mg tablet Take 1 tablet (100 mg total) by mouth in the morning. 30 tablet 06/13/2024 ActiveStart: 66-22-2324gglk 1 tablet by mouth in the morningthiamine HCl (VITAMIN B-1) 100 mg tablet Take 1 tablet (100 mg total) by mouth in the morning. 30 tablet 06/13/2024Start: 26-45-3733kmab 100 mg by mouth once suefy141 mg, oral, Daily, First dose on Mon06/07/24 at 0630, Look-alike/sound-alike medication - verify indication for use. Completed/Discontinued Medications MedicationDrug Class(es)DatesSig (Normalized)Sig (Original)20 ml albumin human, snf 250 mg/ml injection (2 sources)Human Serum AlbuminStart: [...] (3 sources)Dihydropyridine Calcium Channel BlockerStart: 12-30-2021 End: 79-74-4530dtyz 10 mg by mouth once daily10 mg, oral, Daily, First dose on Mon06/08/24 at 1100, HOLD FOR SYSTOLIC BLOOD PRESSURE LESS THAN 100 MMHG Look-alike/sound-alike medication - verify indication for use. Avoid grapefruit juice.aspirin 81 mg delayed release oral tablet (2 sources)Platelet Aggregation Inhibitor, Nonsteroidal Anti-inflammatory Drug End: 05-18-3208mpab 1 tablet by mouth in the morningaspirin 81 mg Take 1 tablet (81 mg total) by mouth in the morning. 06/12/2024 Discontinued (Stop Taking at Discharge)0.4 ml enoxaparin sodium 100 mg/ml prefilled syringe (1 source)Low Molecular Weight HeparinStart: 06-10-2024 End: 20-54-7514vsffun 40 mg by subcutaneous injection once daily40 mg, subcutaneous, Daily, First dose on Mon06/10/24 at 0900, Look-alike/sound-alike medication - verify indication for use.gadoteridoL (PROHANCE) injection 6.22 mmol 12.44 mL (1 source)Start: 06-10-2024 End: .22 mmol (0.1 mmol/kg 62.2 kg), intravenous, Once in imaging, contrast, MRI, Starting on Mon06/10/24 at 0211, For 1 dose, VESICANT (RED), Indications: magnetic resonance tmusgza279 ml heparin sodium, porcine 50 unt/ml injection [...] mg/ml cartridge (3 sources)beta-Adrenergic BlockerStart: 06-07-2024 End: 45-04-266001 mg, intravenous, Once, On Mon06/07/24 at 2315, For 1 dose, Look-alike/sound-alike medication - verify indication for use.Start: 02-23-2022 End: 09-11-3488xyxb 2 tablets by mouth in the morning, then take 2 tablets by mouth at bedtimelabetaloL (NORMODYNE) 200 mg tablet Take 2 tablets (400 mg total) by mouth in the morning and 2 tablets (400 mg total) before bedtime. 120 tablet 5 02/23/2022 06/12/2024 Discontinued (Stop Taking at Discharge)lactulose 667 mg/ml oral solution (1 source)Osmotic LaxativeStart: 06-07-2024 End: 85-49-264612 g, oral, 2 times daily, First dose on Mon06/07/24 at 1300, HOLD IF PATIENT HAS HAD 2 BOWEL MOVEMENTS IN A DAY Titrate for 2-3 BM per vos775 ml metroNIDAZOLE 5 mg/ml injection (2 sources)Nitroimidazole AntimicrobialStart: 06-07-2024 End: 65-14-1069fjea 500 mg intravenously every twelve gywap045 mg, intravenous, at 100 mL/hr, Administer over 60 Minutes, Every 12 hours, First dose (after last modification) on Mon06/11/24 at 2100, For 1 day, Look-alike/sound-alike medication - verify indication for use., Indication: Intra-abdominalolmesartan medoxomil 40 mg oral tablet (2 sources)Angiotensin 2 Receptor BlockerStart: 08-18-2020 End: 74-84-2409jrgy 1 tablet by mouth once dailyolmesartan (BENICAR) 40 mg tablet Take 1 tablet (40 mg total) by mouth daily. 30 tablet 5 08/18/2020 06/12/2024 Discontinued (Stop Taking at Discharge)1000 ml sodium chloride 9 mg/ml injection (6 sources)Start: 06-10-2024 End: mL, intravenous, Once in imaging, pre/post contrast, MRI, Starting on Mon06/10/24 at 0211, For 1 doseStart: 06-10-2024 End: 84-43-076960 mL, intravenous, Once in imaging, line care, MRI, Starting on Mon06/10/24 at 0211, For 1 doseStart: mL, intravenous, Every 12 hours scheduled, First dose on Mon06/07/24 at 0900Start: mL, intravenous, As needed, line care, before and after each intermittent use, Starting on Mon06/07/24 at 0530Start: 23-40-1433bqra 20 mL intravenously every hour as okelth59 mL/hr, intravenous, Continuous PRN, to maintain patency of lines, Starting on Mon06/07/24 at 0530Start: 53-08-0884pncn 25 mL intravenously every hour as mL, intravenous, at 100 mL/hr, Administer over 15 Minutes, As needed, line care, line care afterIVPB administration, Starting on Mon06/07/24 at 0530 Problems Active Problems Problem ClassificationProblemDateDocumented DateEpisodic/ChronicAcute cerebrovascular disease (4 sources)Cerebrovascular azndwyya24-41-4511MvsozlrWanguml dysrhythmias (12 sources)Unspecified atrial fibrillation; Translations: [Paroxysmal atrial fibrillation]Onset: 255780-75-7181GxgnwasChddiry dysrhythmias (3 sources)Bradycardia; Translations: [Bradycardia, unspecified]Onset: 506517-37-3735OwrqaiyeOptxfzt kidney disease (4 sources)Chronic kidney disease stage 3A ; Translations: [Stage 3a chronic kidney disease (HCC)]Onset: 090759-16-9645YkekynoDstucoslab heart failure; nonhypertensive (6 sources)Chronic systolic heart failure; Translations: [Chronic systolic (congestive) heart failure]Onset: 481879-81-9781YhouxufRrtuimsxd of lipid metabolism (3 sources)Pure hypercholesterolemia; Translations: [Pure hypercholesterolemia, unspecified]42-57-9495GojenlrMshxrkagw of lipid metabolism (1 source)Pure hypercholesterolemia, unspecified; Translations: [PURE HYPERCHOLESTEROLEMIA UNSPEC]Onset: 18-29-5875Ygyjeitaj hypertension (10 sources)Essential (primary) hypertension; Translations: [Essential hypertension]Onset: 12-19-2018 Resolved: 691830-94-9804VsaorsdHsjuxvhxrwzdy symptoms and ill-defined conditions (8 sources)Hematuria, unspecified; Translations: [Retention of urine]Onset: 168674-39-6064OcoxzxurJvdsuetxjyl of prostate (4 sources)Benign prostatic hypertrophy with outflow obstruction; Translations: [Benign prostatic hyperplasia with lower urinary tract symptoms]Onset: 562212-61-6934MiqvqwoMhyuikmqeuiu with complications and secondary hypertension (3 sources)Hypertensive heart disease; Translations: [Hypertensive heart disease without heart failure]97-43-6873AcowiqgCryduwg and fatigue (1 source)Other fatigue; Translations: [OTHER FATIGUE]Onset: 29-42-2135Fcafplwq Mood disorders (4 sources)Depressive utpmmqya28-59-8296WzsxogbBtvdmffksubpon (4 sources)Nincqsjar63-30-1843YhauvwnLuhhw aftercare (1 source)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) use of anticoagulants; Translations: [INTERMEDIATE CURRNT USE ANTICOAGULANTS]Onset: 49-48-3999WnckcmpeLphhx aftercare (1 source)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) use of aspirin; Translations: [PROGRAM SERVICES PLANNER CURRENT USE OF ASPIRIN]Onset: 12-66-4716WzjbqltgApznr aftercare (1 source)Other senior care (current) drug therapy; Translations: [OTH INTERMEDIATE CURRENT DRUG THERAPY]Onset: 92-61-8023NyovpnqhBpwbn and ill-defined heart disease (4 sources)Heart efoomdw28-79-4457FwlpwfaOdedc diseases of kidney and ureters (1 source)Secondary hyperparathyroidism; Translations: [Secondary hyperparathyroidism of renal origin]41-59-4504HwlvqigZwony liver diseases (4 sources)Disease of bbazv27-58-4900JambdelHxsed nervous system disorders (3 sources)Disorder of brain; Translations: [Encephalopathy, unspecified]Onset: 996643-47-5904TqfafyeDfxvq nervous system disorders (1 source)Encephalopathy, unspecified; Translations: [Encephalopathy, unspecified]Onset: 52-76-3400RaupzcuHccas screening for suspected conditions (not mental disorders or infectious disease) (3 sources)Electrocardiogram abnormal; Translations: [Abnormal electrocardiogram [ECG] [EKG]]Onset: 852321-77-2287MyuboanwLtfufixv codes; unclassified (1 source)Pain, unspecified; Translations: [Pain, unspecified]Onset: 06-07-2024 EpisodicUnclassified (1 source)Nadia AMSOnset: 65-25-7764Jgdxtukbjbqo (1 source)Acute EncephalopathyOnset: 70-27-4757Ldnxfhccbwcy (3 sources)Patient encounter ojoknf27-13-1001Dlopazs tract infections (1 source)Acute cystitis with hematuria; Translations: [ACUTE CYSTITIS WITH HEMATURIA]Onset: 76-60-1893Neoptoel Past or Other Problems Problem ClassificationProblemDateDocumented DateEpisodic/Chronic Administrative/social admission (3 sources)Patient encounter status; Translations: [Persons encountering health services in other specified circumstances]Onset: 580301-99-4678Jasvbbiw Deficiency and other anemia (3 sources)Normocytic anemia; Translations: [Anemia, unspecified]Onset: 891514-38-3570HxjtfwjsIlukvysqqy and other anemia (3 sources)Iron deficiency anemia; Translations: [Iron deficiency anemia, unspecified]Onset: 753097-75-4828ZqiusrzjRrpkr and electrolyte disorders (6 sources)Dehydration; Translations: [Hypokalemia]Onset: EpisodicOther diseases of veins and lymphatics (3 sources)Venous insufficiency of leg; Translations: [Venous insufficiency (chronic) (peripheral)]Onset: 436859-77-0610AdxcquhfAdwekte (2 sources)Syncope; Translations: [Syncope and collapse]Onset: 09-15-2017 14-00-7412Ujbwxnyc Results Test NameValueInterpretationReference RangeFacilityUrine Cultureon 11-20-2024 Bacteria identified Cx Nom (U)ORGANISM: Gram Negative Bacilli (O:GNB) Loop Count 50,000 Organism Comments . Send Test to Ref. Lab Sent to Reference Lab for Sensitivity Testing ORGANISM: Staphylococcus aureus (O:STAAUR) Loop Count >100,000 Organism #1 - Pantoea species The organism isolated most closely resembles the identity indicated above. Antibiotic Amoxicillin/Clavulanic Acid S Cefepime S Cefoxitin I Cefpodoxime S Ertapenem S Levofloxacin S Tetracycline S S = Susceptible; I = Intermediate; R = Resistant Performed at: [place] [id number] Network Security Architect: Yohan Gonzalez PhD, Phone: [phone] Aerobic KANWAL Charge (PCMIC38) SUSCEPTIBILITY ORGANISM: O:STAAUR [...] RESISTANT TO ALL B-LACTAM DRUGS. PERFORMED BY: [place] [address] PATHOLOGIST HALF SOLE FITTER RITU DALEY M.D.[facility] Physician GroupComment on above: Performed By: #### CUU #### [place] [address] USAAmbulatory Visit Summaryon 18-11-5911Llcurrhmfs Visit SummaryAmbulatory Visit Summary JOHNATHAN RODNEY :1955 [...] 40 mg Tab) potassium chloride (Potassium Chloride (Ppr-Krmz-Mev 10)) sacubitril-valsartan (Entresto 24 mg-26 mg oral tablet) sulfamethoxazole-trimethoprim (Bactrim D.S. 800 mg-160 mg Tab) tamsulosin (tamsulosin 0.4 mg Cap) thiamine (thiamine 100 mg Tab) Procedures Performed None. What to do next Scheduled Follow-Up Appointments Monday 10:30 AM EDT Where: [facility] Monday 2:45 PM EDT Where: [facility] Medications What How Much When Instructions New sulfamethoxazole-trimethoprim (Bactrim D.S. 800 mg-160 mg Tab) 1 Tablets By Mouth 2 times a dayDuration: 3 Days Pickup at [facility] [id number] Unchanged acetaminophen (acetaminophen 325 mg Tab) By [...] one hour prior to procedure Pickup at [facility] [id number] Unchanged folic acid (folic acid 1 mg Tab) 1 Tablets Unchanged furosemide (furosemide 40 mg Tab) 1 Tablets Unchanged potassium chloride (Potassium Chloride (Uzt-Epnt-Twf 10)) By Mouth 2 times a day Unchanged sacubitril-valsartan (Entresto 24 mg-26 mg oral tablet) By Mouth 2 times a day Unchanged tamsulosin (tamsulosin 0.4 mg Cap) 1 Capsules Unchanged thiamine (thiamine 100 mg Tab) By Mouth Every day Pharmacy Information [facility] [id number]: [address], [place] [id number] [phone] Allergies No Known Medication Allergies Problems Ongoing [...] you for choosing us for your care. [facility] HospitalAmbulatory Visit Summaryon [id number] Visit SummaryAmbulatory Visit Summary JOHNATHAN RODNEY :1955 [...] 40 mg Tab) potassium chloride (Potassium Chloride (Ycv-Qeuk-Qxc 10)) sacubitril-valsartan (Entresto 24 mg-26 mg oral tablet) tamsulosin (tamsulosin 0.4 mg Cap) thiamine (thiamine 100 mg Tab) Procedures Performed None. What to do next Scheduled Follow-Up Appointments Monday. 2024 8:30 AM EDT With: DONAL MCGARRY MD Where: [facility] [address] [place] [address]- Medications What How Much When Instructions Unchanged [...] 1 Tablets Unchanged potassium chloride (Potassium Chloride (Cgi-Kuep-Pxy 10)) By Mouth 2 times a day [...] you for choosing us for your care. [facility] DaytonUrology Office/Clinic Noteon 25-16-2207Zfgvyvm Office/Clinic NoteUrology Office/Clinic Note Chief Complaint f/u HPI Staff 68 year old male patient here to discuss his BPH with obstruction/lower urinary tract symptoms. Pt saw 06/25/24 for DIGESTION OPERATOR appt. Previous Dx: urinary retention, Other obstructive [...] urinary tract symptoms. Pt saw 06/25/24 for DIGESTION OPERATOR appt. Patient is accompanied by daughter today. [...] with voice recognition artificial intelligence software, specifically [employer], [employer] and or [employer]. Substitutions may have occurred due to the [...] mg oral tablet, O (more content not included)...[facility] HospitalComment on above:Result Comment: Electronically Signed By: DONAL MCGARRY MD\.br\Date and Time Signed: 07/19/24 14:25 EDT\.br\Electronically Co-Signed By: Brennan Fish\.br\Date and Time Co- Signed: 07/19/24 13:57 EDTUrology Office/Clinic Noteon 33-70-6391Aosckfz Office/Clinic NoteUrology Office/Clinic Note Chief Complaint F/u to [facility] and [facility] HPI Staff New pt here for hospital f/u due to urinary retention. Never seen in our office before (verified onDataArk). [facility] ER 06/05/24 due to confusion/AMS and not feeling well. No evidence of UTI. Drug screen was positive for cannabinoids. 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 Found to have lactic acidosis causing a-fib and RVR. Was admitted to ICU. Then transferred to [place]. -Catheter was placed 06/05/24 but I cannot find documentation of PVR prior or output when they put the cath in. -Portrait Consultant on admission 2.11 (typical looks in the mid 1s). Improved during hospital stay. -Abd US 06/05/24 showed dilated right renal pelvis and calyces. L side nl. -CT 06/07/24 showed simple 1.6cm LIP cyst. Extensive bilat perinephric edema. No collecting system dilation or evidence of ureteral calc. -Urine cx 1/31/25 neg. Blood cx neg x 2. Currently at [facility] but plan is for dc this [...] E&M of New Patient Moderate 45-59 Min 76975 2. BPH with obstruction/lower urinary tract symptoms [...] E&M of New Patient Moderate 45-59 Min 33006 3. Prostate cancer screening (Z12.5: Encounter for screening for malignant neoplasm of prostate) None on Clinis[employer]. Will check w PCP office. If they don't have any, will need to update (perhaps after arenas removed?) Ordered: E&M of New Patient Moderate 45-59 Min 19554 Other obstructive and reflux uropathy (N13.8: Other obstructive and reflux uropathy) Follow-up With When Contact Information [facility] [address] [place] [place] [address] Business (1) Additional Instructions: our operating room scheduler will be contacting you for follow-up [...] Tab, 40 mg= 1 tab(s) Potassium Chloride (Eol-Jcwn-Gzp 10), Oral, BID tamsulosin 0.4 mg Cap, 0.4 mg= 1 cap(s) thiamine 100 mg Tab, Oral, Daily Allergies No Known Medication Allergies Social History Tobacco Never (less than 100 in lifetime) Tobacco Use:. Never Smokeless Tobacco Use:. Household to (more content not included)...[facility] Comment on above:Result Comment: Electronically Signed By: KIKI OLIVIER PA-C\Date and Time Signed: 06/26/2511:05 ESTAmbulatory Visit Summaryon 26-59-9172Sjyhddgbcw Visit SummaryAmbulatory Visit Summary JOHNATHAN RODNEY :1955 [...] 40 mg Tab) potassium chloride (Potassium Chloride (Jmk-Xdsl-Dhy 10)) tamsulosin (tamsulosin 0.4 mg Cap) thiamine [...] 1 Tablets Unchanged potassium chloride (Potassium Chloride (Ddh-Zviw-Fcm 10)) By Mouth 2 times a day [...] you for choosing us for your care. [facility] HospitalCBC AND AUTO DIFFon 06-12-2024 ABSOLUTE BASOPHIL0.1 X10E9/LNormal0.0-0.2PWilson [address] HospitalComment on above:Performed By: #### 92002-5, 2131-9, PINR, 19882-5, AHP, CMP, THYR, FEPR, CBCA, 51448-4, 02231-2, 1967-11, 2283-12, 2275- #### [facility] ([id number]) [address], [address] [place], [place] [address]ITWIDKSN NEUTROPHIL3.4 X10E9/LNormal1.5-6.6ProFlower HospitalComment on above:Performed By: #### 81922-8, 9, PINR, 99234-1, AHP, CMP, THYR, FEPR, CBCA, 09498-9, 53435-0, 1967-11, 2283-12, 2275-08 #### [facility] ([id number]) [address], [address] [place], [place] [address]Bshxgpkdu/100 WBC (Bld)2.5 %NormalProFlower Hospital Comment on above:Performed By: #### 10050-2, 9, PINR, 68553-4, AHP, CMP, THYR, FEPR, CBCA, 35252-0, 67618-2, 1967-11, 2283-12, 2275-08 #### [facility] ([id number]) [address], [address] [place], [place] [address]Gnirebhoauh (Bld) [#/Vol]0.2 10*3/uLNormal0.0-0.4ProFlower HospitalComment on above:Performed By: #### 86647-2, 9, PINR, 92450- 9, AHP, CMP, THYR, FEPR, CBCA, 62829-5, 79400-1, 1967-11, 2283-12, 2275-08 #### [facility] ([id number]) [address], [address] [place], [place] [address]Dwoxajwqahf/100 WBC (Bld)4.1 %NormalProMedica [facility] Comment on above:Performed By: #### 93936-8, 2131-9, PINR, 78447-4, AHP, CMP, THYR, FEPR, CBCA, 51328-9, 98248-5, 1967-11, 8, 2275-4 #### [facility] ([id number]) [address], [address] [place], [place] [address]Gtviuspiqdq distribution width (RBC) [Ratio]22.9 %High11.5-15.0 [facility] Hospital - CantonComment on above:Performed By: #### 50592-0, 2132-01, PINR, 52822-5, AHP, CMP, THYR, FEPR, CBCA, 56300-4, 68767-0, 1967-11, 2283-12, 2275- #### [facility] ([id number]) [address], [address] [place], [place] [address]IGCAADAY0+AbnormalNONEProMedica [facility] Hospital - CantonComment on above: Performed By: #### 75799-8, 9, PINR, 42547-4, AHP, CMP, THYR, FEPR, CBCA, 99649-3, 02707-7, 1967-11, 2283-12, 2275-4 #### [facility] ([id number]) [address], [address] [place], [place] [address]Nwxwlymoyh (Bld) [Volume fraction]31.1 %Ugd17-48GmxMnpsjo [facility] - CantonComment on above:Performed By: #### 95023-7, 9, PINR, 06478-5, AHP, CMP, THYR, FEPR, CBCA, 76450-3, 73303-3, 1967-11, 2283-12, 2275-4 #### [facility] ([id number]) [address], [address] [place], [place] [address]Hyomgkrpnh (Bld) [Mass/Vol]9.9 g/dLLow13.0-17.0ProFlower HospitalComment on above:Performed By: #### 94050-6, 9, PINR, 67893-3, AHP, CMP, THYR, FEPR, CBCA, 79827-2, 84941-1, 1967-7, 2283-8, 6-4 #### [facility] ([id number]) [address], [address] [place], [place] [address]Clsbcajilnh (Bld) [#/Vol]0.6 10*3/uLLow1.0-3.5ProMedCentervilleComment on above:Performed By: #### 39096-2, 2132-01, PINR, 58195-6, AHP, CMP, THYR, FEPR, CBCA, 15381-8, 23605-9, 1967-11, 2283-12, 2275-4 #### [facility] ([id number]) [address] [facility] [facility], [address] [place], [place] [address]Wlqnlyyvdbh/100 WBC (Bld)13.2 %NormalMagruder Memorial Hospital Comment on above:Performed By: #### 85732-9, 2132-01, PINR, 48498-3, AHP, CMP, THYR, FEPR, CBCA, 68701-4, 19106-9, 1967-11, 2283-12, 2275-4 #### [facility] ([id number]) [address] [facility] [facility], [address] [place], [place] [address]ZIB (RBC) [Entitic mass]23.1 zeOzo41-13EwiXinjneMagruder Memorial Hospital Comment on above:Performed By: #### 27281-7, 2132-01, PINR, 70881-3, AHP, CMP, THYR, FEPR, CBCA, 22657-9, 42161-8, 1967-11, 2283-12, 6-4 #### [facility] ([id number]) [address] [facility] [facility], [address] [place], [place] [address]NLTA (RBC) [Mass/Vol]31.8 g/wCVhs17-55UyiInbxlpMagruder Memorial Hospital Comment on above:Performed By: #### 98084-6, 9, PINR, 58468-7, AHP, CMP, THYR, FEPR, CBCA, 96528-8, 37018-0, 1967-, 2283-, 2275- #### [facility] ([id number]) [address] [facility] [facility], [address] [place], [place] [address]EQV (RBC) [Entitic vol]73 dNRfv30-327XlqWhrrehMagruder Memorial Hospital Comment on above:Performed By: #### 94503-6, 9, PINR, 51391-9, AHP, CMP, THYR, FEPR, CBCA, 20271-1, 80567-8, 1967-, 2283-12, 2275- #### [facility] ([id number]) [address] [facility], [address] [place], [place] [address]Wycakyvwy (Bld) [#/Vol]0.4 10*3/uLNormal0-0.9Magruder Memorial HospitalComment on above:Performed By: #### 63879-1, 9, PINR, 66691-3, AHP, CMP, THYR, FEPR, CBCA, 31945-6, 45275-3, 1967-11, 2283-12, 2275- #### [facility] ([id number]) [address], [address] [place], [place] [address]Pmjakblvu/100 WBC (Bld)8.5 %NormalMagruder Memorial Hospital Comment on above:Performed By: #### 87850-5, 9, PINR, 71629-6, AHP, CMP, THYR, FEPR, CBCA, 90999-7, 12918-5, 1967-11, 2283-12, 2275- #### [facility] ([id number]) [address] [facility], [address] [place], [place] [address]Tctroxwcenl/100 WBC (Bld)71.7 %NormalProChildren'S Hospital For Rehabilitationca [facility] Comment on above:Performed By: #### 06441-0, 9, PINR, 96289-5, AHP, CMP, THYR, FEPR, CBCA, 45818-3, 58974-5, 1967-11, 2283-12, 2275- #### [facility] ([id number]) [address] [facility] [facility], [address] [place], [place] [address]XSFGJWPKZ7+AbnormalNONEProMedica [facility] - CantonComment on above:Performed By: #### 99627-8, 2132-01, PINR, 79056-0, AHP, CMP, THYR, FEPR, CBCA, 73166-8, 96391-6, 1967-11, 2283-12, 2275- #### [facility] ([id number]) [address] [facility], [address] [place], [place] [address]Jrxjmdpo mean volume (Bld) [Entitic vol]8.0 fLNormal7-12 [facility] CantonComment on above:Performed By: #### 60112-7, 2132-01, PINR, 05491-1, AHP, CMP, THYR, FEPR, CBCA, 93301-3, 60024-8, 1967-11, 2283-12, 2275- #### [facility] ([id number]) [address] [facility], [address] [place], [place] [address]Qievnonue (Bld) [#/Vol]226 10*3/iBGercor901-063OxtNepdip [facility] CantonComment on above:Performed By: #### 74126-7, 9, PINR, 00032-3, AHP, CMP, THYR, FEPR, CBCA, 32374-3, 36319-7, 1967-11, 2283-12, 2275- #### [facility] ([id number]) [address] [facility], [address] [place], [place] [address]VOMUVZAJHNFEP7+AbnormalNONEProMedica [facility] Hospital - CantonComment on above:Performed By: #### 31063-4, 2131-9, PINR, 00774-6, AHP, CMP, THYR, FEPR, CBCA, 35841-4, 40525-9, 1967-11, 2283-12, 2275-4 #### [facility] ([id number]) [address] [facility], [address] [place], [place] [address]XQE COUNT4.27 X10E12/LNormal4.10-5.70Pro[facility] Hospital Comment on above:Performed By: #### 03793-9, 9, PINR, 72310-1, AHP, CMP, THYR, FEPR, CBCA, 34700-8, 10354-5, 1967-11, 2283-12, 2275- #### [facility] ([id number]) [address] [facility], [address] [place], [place] [address]RCQATINV7+AbnormalNONEProMedica [facility] Hospital - CantonComment on above: Performed By: #### 30913-2, 9, PINR, 55662-8, AHP, CMP, THYR, FEPR, CBCA, 24695-4, 79259-4, 1967-11, 2283-12, 2275-4 #### [facility] ([id number]) [address] [facility], [address] [place], [place] [address]UEW (Bld) [#/Vol]4.7 10*3/uLNormal4.0-11.0ProFlower HospitalComment on above:Performed By: #### 79900-9, 9, PINR, 85253-3, AHP, CMP, THYR, FEPR, CBCA, 53632-6, 43033-7, 1967-11, 2283-12, 2275-4 #### [facility] ([id number]) [address] [facility], [address] [place], [place] [address]OZN auto differentialon 63-69-3624Kaekunnab (Bld) [#/Vol]0.1 10*3/uLProMedica Health SystemBasophils/100 WBC (Bld)2.5 %ProMedica Health SystemDacrocytes LM Ql (Bld)1+AbnormalNONE^NONEProMedica Health System Eosinophils (Bld) [#/Vol]0.2 10*3/uLProMedica Health SystemEosinophils/100 WBC (Bld)4.1 %ProMedica Health SystemErythrocyte distribution width (RBC) [Ratio] 22.9 %High11.5 - 15.0 %[facility]Medica Health SystemFragments LM Ql (Bld)1+Abnormal NONE^NONEProMedica Health SystemHematocrit (Bld) [Volume fraction]31.1 %Low39 - 49 %[facility]ica Health SystemHemoglobin (Bld) [Mass/Vol]9.9 g/dLLow13.0 - 17.0 g/dLMercy Health St. [facility] Health SystemInterpretation and review of laboratory results AbnormalGuernsey Memorial Hospitalca Health SystemLymphocytes (Bld) [#/Vol]0.6 10*3/uLLowProMarshall Medical Center North Health SystemLymphocytes/100 WBC (Bld)13.2 %[facility] HospitalMCH (RBC) [Entitic mass]23.1 pgLow27 - 34 [facility] HospitalMCHC (RBC) [Mass/Vol] 31.8 g/dLLow32 - 36 g/dLHolzer HospitalMCV (RBC) [Entitic vol]73 fLLow80 - 100 [facility] SystemMonocytes (Bld) [#/Vol]0.4 10*3/uLProMedica Health SystemMonocytes/100 WBC (Bld)8.5 %[facility] Health SystemNeutrophils (Bld) [#/Vol]3.4 10*3/uLProMedica Health SystemNeutrophils/100 WBC (Bld)71.7 % Pro[facility]ica Health SystemOvalocytes LM Ql (Bld)1+AbnormalNONE^NONEProMedica Health SystemPlatelet mean volume (Bld) [Entitic vol]8 fL7 - 12 fLPMercy Health West HospitalPlatelets (Bld) [#/Vol]226 10*3/uLHolzer HospitalPolychromasia LM Ql (Bld)1+AbnormalNONE^NONEHolzer HospitalRBC (Bld) [#/Vol]4.27 10*6/uL [facility] HospitalWBC corrected for nucl RBC Auto (Bld) [#/Vol]4.7ProKaleida HealthCBC AND AUTO DIFFon 06-32-8408YRVNWVUR BASOPHIL0.1 X10E9/LNormal0.0-0.2PWilson [address] HospitalComment on above: Performed By: #### 36831-8, 9, PINR, 09207-1, AHP, CMP, THYR, FEPR, CBCA, 66367-7, 72038-1, 1967-, 2283-12, 2275- #### [facility] ([id number]) [address] [place] [address], [address] [place], [place] [address]Wzgotakws/100 WBC (Bld)1.0 %NormalMagruder Memorial Hospital Comment on above:Performed By: #### 99789-1, 2132-01, PINR, 15562-8, AHP, CMP, THYR, FEPR, CBCA, 32671-1, 49052-8, 1967-, 2283-, 2275-4 #### [facility] ([id number]) [address] [facility], [address] [place], [place] [address]Brvzouycxnv (Bld) [#/Vol]0.3 10*3/uLNormal0.0-0.4Magruder Memorial HospitalComment on above:Performed By: #### 23796-5, 9, PINR, 53873- 9, AHP, CMP, THYR, FEPR, CBCA, 85620-8, 69682-2, 1967-11, 2283-12, 2275- #### [facility] ([id number]) [address], [address] [place], [place] [address]Wrbxkmeakqy/100 WBC (Bld)4.9 %NormalProChildren'S Hospital For Rehabilitationca [facility] Comment on above:Performed By: #### 47584-4, 2131-9, PINR, 30320-9, AHP, CMP, THYR, FEPR, CBCA, 42684-2, 53682-3, 1967-11, 2283-12, 2275- #### [facility] ([id number]) [address], [address] [place], [place] [address]Nunenirnmip distribution width (RBC) [Ratio]23.5 %High11.5-15.0 [facility] Hospital - CantonComment on above:Performed By: #### 31754-3, 2132-01, PINR, 47390-2, AHP, CMP, THYR, FEPR, CBCA, 47831-9, 97203-5, 1967-11, 2283-12, 2275- #### [facility] ([id number]) [address], [address] [place], [place] [address]JOGUPVTX5+AbnormalNONEProMedica Wayland HospitalComment on above: Performed By: #### 21862-1, 9, PINR, 60322-7, AHP, CMP, THYR, FEPR, CBCA, 93706-8, 65738-9, 1967-11, 2283-12, 2275- #### [facility] ([id number]) [address], [address] [place], [place] [address]Kjxxjmvyrp (Bld) [Volume fraction]32.3 %Lpl89-11MkaBvjzzdFlower HospitalComment on above:Performed By: #### 71156-1, 9, PINR, 61952-0, AHP, CMP, THYR, FEPR, CBCA, 90572-9, 49740-5, 1967-11, 2283-12, 2275- #### [facility] ([id number]) [address], [address] [place], [place] [address]Npnogcvjgm (Bld) [Mass/Vol]10.0 g/dLLow13.0-17.0ProFlower HospitalComment on above:Performed By: #### 59494-1, 9, PINR, 52883-0, AHP, CMP, THYR, FEPR, CBCA, 89382-4, 25711-0, 1967-11, 2283-12, 2275-4 #### [facility] ([id number]) [address], [address] [place], [place] [address]SATRSVETQTI5+AbnormalNONEPWilson Street HospitalComment on above:Performed By: #### 43667-1, 2132-01, PINR, 61034-6, AHP, CMP, THYR, FEPR, CBCA, 94795-3, 82690-1, 1967-11, 2283-12, 2275- #### [facility] ([id number]) [address], [address] [place], [place] [address]Pqtxhvptcry (Bld) [#/Vol]0.4 10*3/uLLow1.0-3.5PWilson [address] HospitalComment on above:Performed By: #### 66668-2, 9, PINR, 15559-3, AHP, CMP, THYR, FEPR, CBCA, 31113-0, 41101-1, 1967-11, 2283-12, 2275- #### [facility] ([id number]) [address], [address] [place], [place] [address]Nglnryplojo/100 WBC (Bld)6.9 %NormalProFlower Hospital Comment on above:Performed By: #### 51933-4, 9, PINR, 22287-1, AHP, CMP, THYR, FEPR, CBCA, 21447-6, 12819-6, 1967-11, 2283-12, 2275- #### [facility] ([id number]) [address], [address] [place], [place] [address]PBO (RBC) [Entitic mass]22.7 daQcv82-80KuqNhuhtuMagruder Memorial Hospital Comment on above:Performed By: #### 11532-8, 2-9, PINR, 37512-3, AHP, CMP, THYR, FEPR, CBCA, 11427-8, 99783-5, 1967-11, 2283-12, 2275- #### [facility] ([id number]) [address], [address] [place], [place] [address]BNQX (RBC) [Mass/Vol]31.1 g/mIIjg87-03LiqCjvpdzMagruder Memorial Hospital Comment on above:Performed By: #### 06687-0, 2131-9, PINR, 79279-7, AHP, CMP, THYR, FEPR, CBCA, 75006-2, 11402-6, 1967-11, 2283-12, 2275-08 #### [facility] ([id number]) [address], [address] [place], [place] [address]TDM (RBC) [Entitic vol]73 bXVtj31-701SjtOejsghMagruder Memorial Hospital Comment on above:Performed By: #### 22121-5, 2-9, PINR, 69712-0, AHP, CMP, THYR, FEPR, CBCA, 61991-2, 29795-2, 1967-11, 2283-12, 2275- #### [facility] ([id number]) [address], [address] [place], [place] [address]Mwrbyczue (Bld) [#/Vol]0.4 10*3/uLNormal0-0.9Mag[facility]uder Memorial HospitalComment on above:Performed By: #### 76850-1, 2131-9, PINR, 76968-6, AHP, CMP, THYR, FEPR, CBCA, 79255-9, 12441-6, 1967-11, 2283-12, 2275-08 #### [facility] ([id number]) [address], [address] [place], [place] [address]Ftqcyvymg/100 WBC (Bld)7.8 %NormalProFlower Hospital Comment on above:Performed By: #### 18773-2, 2131-9, PINR, 88737-0, AHP, CMP, THYR, FEPR, CBCA, 97305-2, 55516-9, 1967-11, 2283-12, 2275- #### [facility] ([id number]) [address] [facility], [address] [place], [place] [address]Myqxuohotlz (Bld) [#/Vol]4.5 10*3/uLNormal1.5-6.6ProMedica [facility] Hospital - CantonComment on above:Performed By: #### 50454-6, 9, PINR, 23728- 9, AHP, CMP, THYR, FEPR, CBCA, 13439-6, 87783-1, 1967-11, 2283-12, 2275-08 #### [facility] ([id number]) [address] [facility] [facility], [address] [place], [place] [address]WOPFKALPK2+AbnormalNONEProMedica [facility] Hospital - CantonComment on above:Performed By: #### 53170-7, 9, PINR, 51736-5, AHP, CMP, THYR, FEPR, CBCA, 34396-4, 99938-7, 1967-11, 2283-12, 2275-08 #### [facility] ([id number]) [address] [facility], [address] [place], [place] [address]Qdcyrcgr mean volume (Bld) [Entitic vol]8.7 fLNormal7-12 [facility] Hospital - CantonComment on above:Performed By: #### 09800-5, 2131-9, PINR, 75077-9, AHP, CMP, THYR, FEPR, CBCA, 63168-9, 85112-8, 1967-11, 2283-, 2275- #### [facility] ([id number]) [address] [place] [address], [address] [place], [place] [address]Yztqeromq (Bld) [#/Vol]226 10*3/eYVkbths775-947FuuNmjlmk Wayland HospitalComment on above:Performed By: #### 37441-5, 9, PINR, 02499-0, AHP, CMP, THYR, FEPR, CBCA, 89552-8, 87096-4, 1967-11, 2283-12, 2275- #### [facility] ([id number]) [address] [place] [address], [address] [place], [place] [address]PPYSUHHWSSCAU4+AbnormalNONEProMedica Wayland HospitalComment on above:Performed By: #### 20317-4, 9, PINR, 21698-5, AHP, CMP, THYR, FEPR, CBCA, 63197-7, 68039-8, 1967-11, 2283-12, 2275- #### [facility] ([id number]) [address] [place] [address], [address] [place], [place] [address]IAI COUNT4.42 X10E12/LNormal4.10-5.70Pro[facility] Comment on above:Performed By: #### 42440-0, 9, PINR, 72072-9, AHP, CMP, THYR, FEPR, CBCA, 92289-6, 01716-8, 1967-11, 2283-12, 2275- #### [facility] ([id number]) [address] [place] [address], [address] [place], [place] [address]LZC GANIWRTEFB58.4 %NormalProMedica Wayland HospitalComment on above:Performed By: #### 35737-5, 9, PINR, 52140-9, AHP, CMP, THYR, FEPR, CBCA, 29909-0, 27038-0, 1967-11, 2283-8, 2275-4 #### [facility] ([id number]) [address] [facility] [facility], [address] [place], [place] [address]RGT (Bld) [#/Vol]5.7 10*3/uLNormal4.0-11.0Mag[facility] Memorial HospitalComment on above:Performed By: #### 22311-0, 9, PINR, 48204-6, AHP, CMP, THYR, FEPR, CBCA, 49443-6, 12263-4, 1967-11, 2283-8, 2275- #### [facility] ([id number]) [address] [address], [address] [place], [place] [address]QFB auto differentialon [id number] (Bld) [#/Vol]0.1 10*3/uLHolzer HospitalBasophils/100 WBC (Bld)1 %[facility] Eosinophils (Bld) [#/Vol]0.3 10*3/uLHolzer HospitalEosinophils/100 WBC (Bld)4.9 %[facility] HospitalErythrocyte distribution width (RBC) [Ratio] 23.5 %High11.5 - 15.0 %[facility] HospitalFragments LM Ql (Bld)1+Abnormal NONE^[facility] CenterHematocrit (Bld) [Volume fraction]32.3 %Low39 - 49 %[facility] HospitalHemoglobin (Bld) [Mass/Vol]10 g/dLLow13.0 - 17.0 g/dL [facility] HospitalHypochromia Ql (Bld)1+AbnormalNONE^[facility] SystemInterpretation and review of laboratory resultsAbnormalHolzer HospitalLymphocytes (Bld) [#/Vol]0.4 10*3/uLLowSouthwest General Health Center System Lymphocytes/100 WBC (Bld)6.9 %[facility] HospitalMCH (RBC) [Entitic mass] 22.7 pgLow27 - 34 [facility] HospitalMCHC (RBC) [Mass/Vol]31.1 g/dLLow32 - 36 g/dLHolzer HospitalMCV (RBC) [Entitic vol]73 fLLow80 - 100 fL [facility] HospitalMonocytes (Bld) [#/Vol]0.4 10*3/[facility] Monocytes/100 WBC (Bld)7.8 %[facility] HospitalNeutrophils (Bld) [#/Vol]4.5 10*3/[facility] HospitalOvalocytes LM Ql (Bld)2+AbnormalNONE^[facility] CenterPlatelet mean volume (Bld) [Entitic vol]8.7 fL7 - 12 [facility] SystemPlatelets (Bld) [#/Vol]226 10*3/[facility] Polychromasia LM Ql (Bld)1+AbnormalNONE^[facility] CenterRBC (Bld) [#/Vol]4.42 10*6/[facility] Hospitalegmented neutrophils/100 WBC (Bld) 79.4 %[facility] HospitalWBC corrected for nucl RBC Auto (Bld) [#/Vol]5.7 [facility] CountyCOMPREHENSIVE METABOLIC PANELon [id number] [Mass/Vol]3.4 g/dLNormal3.2-5.3PWilson [address] [facility] Comment on above:Performed By: #### 63866-1, 2132-01, PINR, 39320-4, AHP, CMP, THYR, FEPR, CBCA, 20728-2, 58434-2, 1967-11, 2283-12, 2275- #### [facility] ([id number]) [address] [facility] [facility], [address] [place], [place] [address]LLJ [Catalytic activity/Vol]67 U/NQopfqk38-698IhlUxdpbgMagruder Memorial HospitalComment on above:Performed By: #### 87659-7, 2132-01, PINR, 34271-4, AHP, CMP, THYR, FEPR, CBCA, 56880-8, 31953-6, 1967-11, 2283-12, 2275-08 #### [facility] ([id number]) [address] [facility] [facility], [address] [place], [place] [address]ZJL [Catalytic activity/Vol]21 U/LNormal0-40ProFlower HospitalComment on above:Performed By: #### 69178-4, 9, PINR, 77099-3, AHP, CMP, THYR, FEPR, CBCA, 70724-4, 03662-7, 1967-11, 2283-12, 2275- #### [facility] [facility] ([id number]) [address] [facility], [address] [place], [place] [address]Hcikd gap [Moles/Vol]10 mmol/LNormal5-15ProFlower HospitalComment on above:Performed By: #### 13902-4, 9, PINR, 46788-7, AHP, CMP, THYR, FEPR, CBCA, 55935-8, 31862-5, 1967-11, 2283-12, 2275-08 #### [facility] ([id number]) [address] [facility], [address] [place], [place] [address]JSQ [Catalytic activity/Vol]28 U/LNormal0-41ProFlower HospitalComment on above:Performed By: #### 31838-3, 9, PINR, 51490-9, AHP, CMP, THYR, FEPR, CBCA, 69702-6, 52941-7, 1967-11, 2283-12, 2275- #### [facility] ([id number]) [address] [facility], [address] [place], [place] [address]Uayjraxuu [Mass/Vol]0.7 mg/dLNormal0.3-1.2Pro[facility] Hospital - CantonComment on above:Performed By: #### 45435-3, 9, PINR, 65096-1, AHP, CMP, THYR, FEPR, CBCA, 82521-6, , 1967-11, 2283-12, 2275-08 #### [facility] ([id number]) [address] [facility], [address] [place], [place] [address]Tjnvjsj [Mass/Vol]8.3 mg/dLLow8.5-10.5PWilson [address] [facility] Comment on above:Performed By: #### 18004-5, 9, PINR, 58983-0, AHP, CMP, THYR, FEPR, CBCA, 26863-5, 91429-9, 1967-11, 2283-12, 2275-08 #### [facility] ([id number]) [address] [facility], [address] [place], [place] [address]Ubthknhs [Moles/Vol]105 mmol/FGclxke69-982IbiFiwyuz Toledo HospitalComment on above:Performed By: #### 10476-3, 2132-01, PINR, 53556-9, AHP, CMP, THYR, FEPR, CBCA, 96869-8, 18809-0, 1967-11, 2283-12, 2275-08 #### [facility] ([id number]) [address] [facility], [address] [place], [place] [address]GV9 [Moles/Vol]26 mmol/BRhcwxa47-52ZuxUctfmpWilson [address] [facility] Comment on above:Performed By: #### 27232-2, 9, PINR, 10385-5, AHP, CMP, THYR, FEPR, CBCA, 50141-8, 81741-5, 1967-11, 2283-12, 2275-08 #### [facility] ([id number]) [address] [facility], [address] [place], [place] [address]Horulaahmf [Mass/Vol]1.23 mg/dLNormal0.60-1.30ProFlower HospitalComment on above:Result Comment: METHOD TRACEABLE TO IDMS STANDARD Performed By: #### 89427-5, 2132-01, PINR, 65356-7, AHP, CMP, THYR, FEPR, CBCA, 68425-1, 15646-8, 1967-11, 2283-12, 2275-08 #### [facility] ([id number]) [address] [address] [place], [place] [address]ZIK/1.73 sq M.predicted among non-blacks MDRD (S/P/Bld) [Vol rate/Area]64 mL/min/{1.73_m2}Normal>59ProFlower HospitalComment on above: Result Comment: Reported eGFR is based on the CKD-EPI 2020 equation that does not use a race coefficient.Performed By: #### 97818-3, 2132-01, PINR, 90465-2, AHP, CMP, THYR, FEPR, CBCA, , , 1967-11, 2283-12, 2275-08 #### [facility] ([id number]) [address] [address]Gmdtteo [Mass/Vol]100 mg/aQTevt58-32YdiLceuxjFlower Hospital Comment on above:Performed By: #### 12494-1, 2132-01, PINR, 79772-1, AHP, CMP, THYR, FEPR, CBCA, , 84129-5, 1967-11, 2283-12, 2275-08 #### [facility] ([id number]) [address] [address] [place], [place] [address]Csfmgsvms [Moles/Vol]3.7 mmol/LNormal3.5-5.0ProFlower HospitalComment on above:Performed By: #### 95215-0, 2132-01, PINR, 45781-7, AHP, CMP, THYR, FEPR, CBCA, , , 1967-11, 2283-12, 2275- #### [facility] ([id number]) [address] [facility] [facility] [address] [place], [place] [address]Jjjsnzu [Mass/Vol]6.0 g/dLNormal6.0-8.0[facility] Comment on above:Performed By: #### 04388-8, 2131-9, PINR, 76181-7, AHP, CMP, THYR, FEPR, CBCA, 73147-0, 57591-5, 1967-, 2283-8, 2275-4 #### [facility] ([id number]) [address] [place] [address], [address] [place], [place] [address]Peahhv [Moles/Vol]141 mmol/QGyhnjv097-122FdqRnzdvm Toledo HospitalComment on above:Performed By: #### 98327-5, 2132-01, PINR, 01693-9, AHP, CMP, THYR, FEPR, CBCA, 84803-6, 08781-9, 1967-11, 2283-12, 2275-4 #### [facility] ([id number]) [address] [place] [address], [address] [place], [place] [address]Dvdj nitrogen [Mass/Vol]27 mg/dLNormal5-27ProFlower HospitalComment on above:Performed By: #### 07070-6, 2132-01, PINR, 32940-8, AHP, CMP, THYR, FEPR, CBCA, 41445-6, 96243-7, 1967-11, 2283-12, 2275- #### [facility] ([id number]) [address] [facility], [address] [place], [place] [address]Ntdnxxcbtpmsi metabolic panelon 73-04-7778Heqtilx [Mass/Vol]3.4 g/dL3.2 - 5.3 g/dLProMedica Health SystemALP [Catalytic activity/Vol]67 U/L39 - 130 U/LProMedica Health SystemALT No additional P-5'-P [Catalytic activity/Vol] 21 U/L0 - 40 U/LProMedica Health SystemAnion gap [Moles/Vol]10 mmol/L5 - 15 mmol/LProMedica Health SystemAST [Catalytic activity/Vol]28 U/L0 - 41 U/L [facility]zer HospitalBilirubin [Mass/Vol]0.7 mg/dL0.3 - 1.2 mg/dLSouthwest General Health Center SystemCalcium [Mass/Vol]8.3 mg/dLLow8.5 - 10.5 mg/dLHolzer HospitalChloride [Moles/Vol]105 mmol/L98 - 109 mmol/[facility] SystemCO2 [Moles/Vol]26 mmol/L22 - 32 mmol/[facility] SystemCreatinine [Mass/Vol] 1.23 mg/dL0.60 - 1.30 mg/dLHolzer HospitalComment on above:METHOD TRACEABLE TO IDCT STANDARDeGFR (CKD-EPI)non-race - [facility] HospitalComment on above: Reported eGFR is based on the CKD-EPI 2020 equation that does not use a race coefficient. Glucose [Mass/Vol]100 mg/uQYebc18 - 99 mg/dLHolzer Hospital Interpretation and review of laboratory resultsAbnormalHolzer Hospital Potassium [Moles/Vol]3.7 mmol/L3.5 - 5.0 mmol/[facility] SystemProtein [Mass/Vol]6 g/dL6.0 - 8.0 g/dLAtrium Health Wake Forest Baptist Medical Centerodium [Moles/Vol]141 mmol/L134 - 146 mmol/[facility] SystemUrea nitrogen [Mass/Vol]27 mg/dL5 - 27 mg/dLLifecare Hospital of Chester CountyHEMOGLOBINon 06-11-2024 Hemoglobin (Bld) [Mass/Vol]10.4 g/dLLow13.0-17.0Mag[facility] HospitalComment on above:Performed By: #### 31953-1, 2132-9, PINR, 23632-6, AHP, CMP, THYR, FEPR, CBCA, 25166-4, 06947-0, 1968-7, 2284-8, 2276-4 #### [facility] ([id number]) [address] [facility], [address] [place], [place] [address]Hagqpmbxnvqk 20-40-1736Jnmwbgzjie (Bld) [Mass/Vol]10.4 g/dLLow 13.0 - 17.0 g/dLHolzer HospitalHemoglobin (Bld) [Mass/Vol]on 06-11-2024 Interpretation and review of laboratory resultsAbnormalFriends HospitalPOTASSIUMon 37-68-1919Dgunbdnvf [Moles/Vol]4.0 mmol/L Normal3.5-5.0Mag[facility]uder Memorial HospitalComment on above:Performed By: #### 49520- 0, 2132-01, PINR, 55806-9, AHP, CMP, THYR, FEPR, CBCA, 74969-8, 13924-5, 1967-, 2283-, 2275- #### [facility] ([id number]) [address] [place] [address], [address] [place], [place] [address]Ffnbnujyaqh 17-91-8189Rnuachuur [Moles/Vol]4 mmol/L3.5 - 5.0 mmol/LPrParkview Health Bryan HospitalPotassium [Moles/Vol]on 19-04-8450QqxUjexihHolzer HospitalBASIC METABOLIC PANLon 99-91-9933Onyuq gap [Moles/Vol]9 mmol/LNormal5-15 [facility] HospitalComment on above:Performed By: #### 03558-6, 2132-01, PINR, 07047-8, AHP, CMP, THYR, FEPR, CBCA, 46242-9, 22882-5, 1967-11, 2283-12, 2275-4 #### [facility] ([id number]) [address] [facility], [address] [place], [place] [address]Aluqxxz [Mass/Vol]8.3 mg/dLLow8.5-10.5PWilson [address] [facility] Comment on above:Performed By: #### 16060-5, 2132-01, PINR, 72778-6, AHP, CMP, THYR, FEPR, CBCA, 20216-2, 08586-2, 1967-, 2283-12, 2275-4 #### [facility] ([id number]) [address], [address] [place], [place] [address]Ntemjagi [Moles/Vol]103 mmol/AZfghir44-150QamKiayyt [place] HospitalComment on above:Performed By: #### 89017-6, 2132-01, PINR, 08947-6, AHP, CMP, THYR, FEPR, CBCA, 26734-1, 75567-3, 1967-11, 2283-12, 2275-08 #### [facility] ([id number]) [address], [address] [place], [place] [address]ZB0 [Moles/Vol]28 mmol/YRbeczk14-91HaaTiyzddWilson Street Hospital Comment on above:Performed By: #### 68928-5, 2132-01, PINR, 33854-5, AHP, CMP, THYR, FEPR, CBCA, 54647-6, 14528-1, 1967-11, 2283-12, 2275-08 #### [facility] ([id number]) [address], [address] [place], [place] [address]Ytzjyutcrl [Mass/Vol]1.28 mg/dLNormal0.60-1.30ProFlower HospitalComment on above:Result Comment: METHOD TRACEABLE TO IDMS STANDARD Performed By: #### 52073-3, 2132-01, PINR, 54916-3, AHP, CMP, THYR, FEPR, CBCA, 65989-9, 04948-2, 1967-11, 2283-12, 2275-08 #### [facility] ([id number]) [address], [address] [place], [place] [address]IDS/1.73 sq M.predicted among non-blacks MDRD (S/P/Bld) [Vol rate/Area]61 mL/min/{1.73_m2}Normal>59ProFlower HospitalComment on above: Result Comment: Reported eGFR is based on the CKD-EPI 2020 equation that does not use a race coefficient.Performed By: #### 20235-3, 9, PINR, 39781-1, AHP, CMP, THYR, FEPR, CBCA, 16129-6, 63351-6, 1967-11, 2283-12, 2275-08 #### [facility] ([id number]) [address], [address] [place], [place] [address]Uumodrc [Mass/Vol]103 mg/uIYbce50-61DhaDktpkbFlower Hospital Comment on above:Performed By: #### 16372-2, 2132-01, PINR, 64391-5, AHP, CMP, THYR, FEPR, CBCA, 03120-1, 73159-6, 1967-11, 2283-12, 2275- #### [facility] ([id number]) [address], [address] [place], [place] [address]Zaxxnccrr [Moles/Vol]3.4 mmol/LLow3.5-5.0ProFlower HospitalComment on above:Performed By: #### 11771-0, 2132-01, PINR, 65055-9, AHP, CMP, THYR, FEPR, CBCA, , , 1967-11, 2283-12, 2275-08 #### [facility] ([id number]) [address], [address] [place], [place] [address]Utqisp [Moles/Vol]140 mmol/RJgqmhs645-787JynBjgedb [facility] HospitalComment on above:Performed By: #### 13699-3, 2132-01, PINR, 12067-7, AHP, CMP, THYR, FEPR, CBCA, 39295-4, 00548-1, 1967-11, 2283-12, 2275-08 #### [facility] ([id number]) [address], [address] [place], [place] [address]Iwrv nitrogen [Mass/Vol]22 mg/dLNormal5-27ProFlower HospitalComment on above:Performed By: #### 17226-7, 2132-01, PINR, 79216-9, AHP, CMP, THYR, FEPR, CBCA, 12983-2, 74161-0, 1967-, 2283-, 2275- #### [facility] ([id number]) [address] [facility], [address] [place], [place] [address]Kirai Metabolic Panelon 44-47-9620Hcdbg gap [Moles/Vol]9 mmol/L5 - 15 mmol/LPrCraig Hospital Health SystemCalcium [Mass/Vol]8.3 mg/dLLow8.5 - 10.5 mg/dLSouthwest General Health Center SystemChloride [Moles/Vol]103 mmol/L98 - 109 mmol/L [facility] SystemCO2 [Moles/Vol]28 mmol/L22 - 32 mmol/LPrCraig Hospital Health SystemCreatinine [Mass/Vol]1.28 mg/dL0.60 - 1.30 mg/dLHolzer Hospital Comment on above:METHOD TRACEABLE TO IDMS STANDARDeGFR (CKD-EPI)non-race layoxtljr93- [facility] HospitalComment on above: Reported eGFR is based on the CKD-EPI 2020 equation that does not use a race coefficient. Glucose [Mass/Vol]103 mg/sTIjzp38 - 99 mg/dLHolzer Hospital Interpretation and review of laboratory resultsAbnormalSouthwest General Health Center System Potassium [Moles/Vol]3.4 mmol/LLow3.5 - 5.0 mmol/LProMedica Health SystemSodium [Moles/Vol]140 mmol/L134 - 146 mmol/[facility] Centerica Health SystemUrea nitrogen [Mass/Vol]22 mg/dL5 - 27 mg/dLSouthwest General Health Center SystemHolzer HospitalCBC AND AUTO DIFFon 82-85-1473WARLGLPRIVW8+AbnormalNONEPWilson Street Hospital Comment on above:Performed By: #### 43196-7, 2132-01, PINR, 67677-0, AHP, CMP, THYR, FEPR, CBCA, 15429-1, 44097-3, 1967-, 2283-, 2275- #### [facility] ([id number]) [address], [address] [place], [place] [address]Ekpxbksjeexm Ql (Bld)2+AbnormalProMedica [facility]lower Hospital Comment on above:Performed By: #### 02626-4, 2131-9, PINR, 21446-7, AHP, CMP, THYR, FEPR, CBCA, 95607-1, 52787-6, 1967-11, 2283-12, 2275- #### [facility] ([id number]) [address] [facility], [address] [place], [place] [address]OSBU0+AbnormalNONEPWilson Street HospitalComment on above: Performed By: #### 46393-9, 9, PINR, 03213-4, AHP, CMP, THYR, FEPR, CBCA, 09225-3, 46652-7, 1967-11, 2283-12, 2275- #### [facility] ([id number]) [address] [facility], [address] [place], [place] [address]Hitbkuphvbs (Bld) [#/Vol]0.2 10*3/uLNormal0.0-0.4ProFlower HospitalComment on above:Performed By: #### 44335-6, 9, PINR, 28144- 9, AHP, CMP, THYR, FEPR, CBCA, 37387-1, 66276-6, 1967-11, 2283-12, 2275- #### [facility] ([id number]) [address], [address] [place], [place] [address]Kzatesvujzw/100 WBC (Bld)3.0 %NormalMagruder Memorial Hospital Comment on above:Performed By: #### 96832-6, 9, PINR, 25847-4, AHP, CMP, THYR, FEPR, CBCA, 21157-8, 51523-8, 1967-11, 2283-12, 2275- #### [facility] ([id number]) [address], [address] [place], [place] [address]Wsqzrftzsdq distribution width (RBC) [Ratio]23.3 %High11.5-15.0 [facility] Hospital - CantonComment on above:Performed By: #### 40962-4, 9, PINR, 71319-2, AHP, CMP, THYR, FEPR, CBCA, 20201-1, 63571-6, 1967-11, 2283-12, 2275-08 #### [facility] ([id number]) [address] [facility], [address] [place], [place] [address]VRXARVYH6+AbnormalNONEProMedica Select Medical Specialty Hospital - CantonComment on above: Performed By: #### 39988-9, 2132-01, PINR, 54633-5, AHP, CMP, THYR, FEPR, CBCA, 76022-0, 31593-6, 1967-11, 2283-12, 2275- #### [facility] ([id number]) [address] [facility], [address] [place], [place] [address]Lfnsxdpswb (Bld) [Volume fraction]31.8 %Ycb98-15BukTpxhrrFlower HospitalComment on above:Performed By: #### 63130-5, 2132-01, PINR, 78454-7, AHP, CMP, THYR, FEPR, CBCA, 78221-3, 97428-0, 1967-11, 2283-12, 2275- #### [facility] ([id number]) [address] [facility], [address] [place], [place] [address]Ktxqtpagva (Bld) [Mass/Vol]9.9 g/dLLow13.0-17.0ProFlower HospitalComment on above:Performed By: #### 64231-6, 9, PINR, 81706-9, AHP, CMP, THYR, FEPR, CBCA, 26053-7, 03966-6, 1967-11, 2283-12, 2275-4 #### [facility] ([id number]) [address], [address] [place], [place] [address]BEEJIPQDBJS7+AbnormalNONEPWilson Street HospitalComment on above:Performed By: #### 54714-9, 2131-9, PINR, 07023-9, AHP, CMP, THYR, FEPR, CBCA, 09657-1, 81422-1, 1967-11, 2283-12, 2275- #### [facility] ([id number]) [address], [address] [place], [place] [address]Rdrtqsfcccj (Bld) [#/Vol]0.6 10*3/uLLow1.0-3.5ProMedCentervilleComment on above:Performed By: #### 04998-6, 9, PINR, 07343-1, AHP, CMP, THYR, FEPR, CBCA, 77696-1, 94017-6, 1967-11, 2283-12, 2275- #### [facility] ([id number]) [address], [address] [place], [place] [address]Gvsphcsdtqi/100 WBC (Bld)9.0 %NormalMagruder Memorial Hospital Comment on above:Performed By: #### 13005-1, 9, PINR, 80476-4, AHP, CMP, THYR, FEPR, CBCA, 73064-5, 05727-2, 1967-11, 2283-12, 2275- #### [facility] ([id number]) [address], [address] [place], [place] [address]SLF (RBC) [Entitic mass]22.6 rcBqc68-82UhpJumxnhMagruder Memorial Hospital Comment on above:Performed By: #### 95340-9, 2131-9, PINR, 58521-9, AHP, CMP, THYR, FEPR, CBCA, 26829-8, 60844-6, 1967-11, 2283-12, 2275-08 #### [facility] ([id number]) [address], [address] [place], [place] [address]QXJV (RBC) [Mass/Vol]31.1 g/oFHxc58-09XyxSdlkphMagruder Memorial Hospital Comment on above:Performed By: #### 35025-0, 2131-9, PINR, 85040-9, AHP, CMP, THYR, FEPR, CBCA, 11761-2, 30535-5, 1967-11, 2283-12, 2275-08 #### [facility] ([id number]) [address] [facility], [address] [place], [place] [address]XIK (RBC) [Entitic vol]73 mFUwr75-491MkqYoxixaMagruder Memorial Hospital Comment on above:Performed By: #### 82516-9, 2131-9, PINR, 56362-3, AHP, CMP, THYR, FEPR, CBCA, 22920-0, 49829-3, 1967-11, 2283-12, 2275-08 #### [facility] ([id number]) [address] [facility] [facility], [address] [place], [place] [address]Xhlyhqkkd (Bld) [#/Vol]0.5 10*3/uLNormal0-0.9[facility]uder Memorial HospitalComment on above:Performed By: #### 43316-8, 9, PINR, 00656-4, AHP, CMP, THYR, FEPR, CBCA, 54960-3, 33217-6, 1967-11, 2283-12, 2275-08 #### [facility] ([id number]) [address] [facility], [address] [place], [place] [address]Bkwklrotn/100 WBC (Bld)8.0 %NormalMagruder Memorial Hospital Comment on above:Performed By: #### 88481-8, 2131-9, PINR, 79821-8, AHP, CMP, THYR, FEPR, CBCA, 26549-7, 99027-7, 1967-11, 2283-12, 2275- #### [facility] ([id number]) [address] [facility], [address] [place], [place] [address]Kjacgmajyox (Bld) [#/Vol]5.4 10*3/uLNormal1.5-6.6ProMedica Wayland HospitalComment on above:Performed By: #### 15494-7, 9, PINR, 85711- 9, AHP, CMP, THYR, FEPR, CBCA, 27737-2, 56067-7, 1967-11, 2283-12, 2275-08 #### [facility] ([id number]) [address] [facility], [address] [place], [place] [address]NCBBHPMRD9+AbnormalNONEProMedica Wayland HospitalComment on above:Performed By: #### 57946-9, 9, PINR, 83023-7, AHP, CMP, THYR, FEPR, CBCA, 16654-6, 57137-4, 1967-11, 2283-12, 2275- #### [facility] ([id number]) [address] [facility], [address] [place], [place] [address]Fsfomgoj mean volume (Bld) [Entitic vol]8.7 fLNormal7-12 [facility] Wayland HospitalComment on above:Performed By: #### 61215-6, 9, PINR, 27806-1, AHP, CMP, THYR, FEPR, CBCA, 93498-6, 11857-3, 1967-11, 2283-12, 2275- #### [facility] ([id number]) [address] [place] [address], [address] [place], [place] [address]Quqshoksg (Bld) [#/Vol]243 10*3/iNYdgafa162-818PjoHuulay Wayland HospitalComment on above:Performed By: #### 77232-3, 9, PINR, 03785-1, AHP, CMP, THYR, FEPR, CBCA, 80785-1, 82380-8, 1967-7, 2283-8, 6-4 #### [facility] ([id number]) [address] [place] [address], [address] [place], [place] [address]DVG COUNT4.37 X10E12/LNormal4.10-5.70[facility] Comment on above:Performed By: #### 71130-4, 2132-01, PINR, 03263-5, AHP, CMP, THYR, FEPR, CBCA, 15988-2, 42302-7, 1967-, 8, 2275- #### [facility] ([id number]) [address] [place] [address], [address] [place] [address] LWHFSNJETP86.0 %NormalProFlower HospitalComment on above:Performed By: #### 06874-4, 2132-01, PINR, 21588-9, AHP, CMP, THYR, FEPR, CBCA, 03060-4, 25162-5, 1967-, 2283-12, 2275- #### [facility] ([id number]) [address] [place] [address], [address] [place] [address]WWR (Bld) [#/Vol]6.7 10*3/uLNormal4.0-11.0ProFlower HospitalComment on above:Performed By: #### 25617-3, 2132-01, PINR, 91653-4, AHP, CMP, THYR, FEPR, CBCA, 99920-3, 00565-3, 1967-11, 2283-12, 2275- #### [facility] ([id number]) [address] [place] [address], [address] [place] [address]AWA auto differentialon 53-83-8568Dehvncductmp LM Ql (Bld)2+ AbnormalNONE^NONEProMedica Health SystemAnisocytosis Ql (Bld)2+AbnormalNONE^NONE [facility] SystemBurr cells LM Ql (Bld)1+AbnormalNONE^NONEHolzer HospitalEosinophils (Bld) [#/Vol]0.2 10*3/[facility] Eosinophils/100 WBC (Bld)3 %Holzer HospitalErythrocyte distribution width (RBC) [Ratio]23.3 %High11.5 - 15.0 %[facility] SystemFragments LM Ql (Bld)1+AbnormalNONE^NONEHolzer HospitalHematocrit (Bld) [Volume fraction]31.8 %Low39 - 49 %[facility]zer HospitalHemoglobin (Bld) [Mass/Vol]9.9 g/dLLow13.0 - 17.0 g/dLHolzer HospitalHypochromia Ql (Bld)1+Abnormal NONE^[facility] CenterInterpretation and review of laboratory results AbnormalHolzer HospitalLymphocytes (Bld) [#/Vol]0.6 10*3/uLLowHolzer HospitalLymphocytes/100 WBC (Bld)9 %[facility] HospitalMCH (RBC) [Entitic mass]22.6 pgLow27 - 34 [facility] HospitalMCHC (RBC) [Mass/Vol] 31.1 g/dLLow32 - 36 g/dLHolzer HospitalMCV (RBC) [Entitic vol]73 fLLow80 - 100 [facility] CareMonocytes (Bld) [#/Vol]0.5 10*3/uLHolzer HospitalMonocytes/100 WBC (Bld)8 %[facility] HospitalNeutrophils (Bld) [#/Vol]5.4 10*3/uLHolzer HospitalOvalocytes LM Ql (Bld)2+Abnormal NONE^[facility] CenterPlatelet mean volume (Bld) [Entitic vol]8.7 fL7 - 12 [facility] SystemPlatelets (Bld) [#/Vol]243 10*3/uLHolzer HospitalRBC (Bld) [#/Vol]4.37 10*6/uLAtrium Health Wake Forest Baptist Medical Centeregmented neutrophils/100 WBC (Bld)80 %Holzer HospitalWBC corrected for nucl RBC Auto (Bld) [#/Vol]6.7[facility] SystemLIVER PANELon [id number] [Mass/Vol]3.5 g/dLNormal3.2-5.3PWilson [address] [facility] Comment on above:Performed By: #### 46927-8, 2131-9, PINR, 40030-2, AHP, CMP, THYR, FEPR, CBCA, 12629-7, 86092-6, 1967-11, 2283-12, 6-4 #### [facility] ([id number]) [address], [address] [place], [place] [address]LUW [Catalytic activity/Vol]64 U/AFzezps70-847CxoXpbaup Toledo HospitalComment on above:Performed By: #### 87917-1, 9, PINR, 71323-0, AHP, CMP, THYR, FEPR, CBCA, 85813-5, 02268-6, 1967-11, 2283-12, 2275-4 #### [facility] ([id number]) [address], [address] [place], [place] [address]RMN [Catalytic activity/Vol]19 U/LNormal0-40Mag[facility]uder Memorial HospitalComment on above:Performed By: #### 25755-8, 9, PINR, 36654-9, AHP, CMP, THYR, FEPR, CBCA, 65525-1, 09914-1, 1967-11, 2283-12, 6-4 #### [facility] ([id number]) [address], [address] [place], [place] [address]HTO [Catalytic activity/Vol]25 U/LNormal0-41ProFlower HospitalComment on above:Performed By: #### 99765-0, 9, PINR, 92928-4, AHP, CMP, THYR, FEPR, CBCA, 68143-9, 22007-1, 1967-11, 2283-12, 2275-08 #### [facility] ([id number]) [address], [address] [place], [place] [address]Dqzmvqqkk [Mass/Vol]0.8 mg/dLNormal0.3-1.2PWilson [address] HospitalComment on above:Performed By: #### 25443-1, 2131-9, PINR, 73572-1, AHP, CMP, THYR, FEPR, CBCA, 76295-2, 45441-6, 1967-11, 2283-12, 2275- #### [facility] ([id number]) [facility], [address] [place], [place] [address]Kfolfrnus.direct [Mass/Vol]0.4 mg/dLNormal0.0-0.4ProFlower HospitalComment on above:Performed By: #### 78458-7, 9, PINR, 39027- 9, AHP, CMP, THYR, FEPR, CBCA, 04865-6, 98906-6, 1967-11, 2283-12, 2275- #### [facility] ([id number]) [address] [place] [address], [address] [place], [place] [address]Ykrkkbq [Mass/Vol]5.8 g/dLLow6.0-8.0[facility] Comment on above:Performed By: #### 76843-9, 9, PINR, 65091-6, AHP, CMP, THYR, FEPR, CBCA, 41426-0, 36317-3, 1967-11, 2283-12, 2275- #### [facility] ([id number]) [address] [place] [address], [address] [place], [place] [address]Ytxts panelon [id number] [Mass/Vol]3.5 g/dL3.2 - 5.3 g/dL [facility] SystemALP [Catalytic activity/Vol]64 U/L39 - 130 U/LProMedica University Hospitals [facility] SystemALT No additional P-5'-P [Catalytic activity/Vol]19 U/L0 - 40 U/L [facility] SystemAST [Catalytic activity/Vol]25 U/L0 - 41 U/LPrAshtabula County Medical Center SystemBilirubin [Mass/Vol]0.8 mg/dL0.3 - 1.2 mg/dLHolzer Hospital Bilirubin.direct [Mass/Vol]0.4 mg/dL0.0 - 0.4 mg/dLHolzer Hospital Interpretation and review of laboratory resultsAbnormalProLicking Memorial Hospital Protein [Mass/Vol]5.8 g/dLLow6.0 - 8.0 g/dLLifecare Hospital of Chester CountyMR BRAIN W WO CONTon [id number] BRAIN W WO CONTMR BRAIN W WO [...] Correlate with symptoms. Sequelae of prior right [employer] territory ischemia Finalized by Zac Lucia on 06/10/2024 7:38 AMNormalMagruder Memorial HospitalMR Brain WO and W contrast Dionisio [id number]:MR BRAIN W WO CONT INDICATION: Mental status [...] Correlate with symptoms. Sequelae of prior right [employer]IV[employer] territory ischemia Finalized by Zac Lucia on [...] Correlate with symptoms. Sequelae of prior right [employer]IV[employer] territory ischemia Finalized by Zac Lucia on 06/10/2024 7:38 AM Emergency Service PartnersMR Brain WO and W contrast IVOrdered By: Zac Lucia on [id number] Service Partners Work Phone: MR MRA HEAD WO CONTon [id number] MRA HEAD WO CONTMR MRA HEAD WO [...] segment possibly due to flow dynamics and ddpe-yq-vpybha technique as there appears to be normal contrast enhancement within the V4 segment on the MRA of the neck Basilar artery: Normal. licensed prosthetist: The left COMMUNITY [employer]IVING INSTRUCTOR is normal. Diminished flow related enhancement within the distal right COMMUNITY LIVING INSTRUCTOR distribution likely sequelae of prior right COMMUNITY LIVING INSTRUCTOR infarct. IMPRESSION: 1. 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 2. Diminished flow related enhancement within the proximal right vertebral artery is likely due to flow dynamics and aopd-ic-dvdgiq technique is there is normal-appearing enhancement on the postcontrast MRA of the neck. 3. Otherwise, no high-grade stenosis, occlusion, or evidence of sizable aneurysm. Finalized by Zac Lucia on 06/10/2024 9:32 [facility]MR [facility] CONTon [id number] MRA NECK W WO CONTMR MRA NECK [...] Finalized by Zac Lucia on 06/10/2024 10:36 [facility] MRA Head vessels WO contraston [id number]: MR MRA HEAD WO CONT INDICATION: Stroke [...] segment possibly due to flow dynamics and thys-mi-sovzdq technique as there appears to be normal contrast enhancement within the V4 segment on the MRA of the neck Basilar artery: Normal. licensed prosthetist: The left COMMUNITY LIVING INSTRUCTOR is normal. Diminished flow related enhancement within the distal right COMMUNITY LIVING INSTRUCTOR distribution likely sequelae of prior right COMMUNITY LIVING INSTRUCTOR infarct. IMPRESSION: 1. 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 2. Diminished flow related enhancement within the proximal right vertebral artery is likely due to flow dynamics and gpjb-xo-fvkare technique is there is normal-appearing enhancement on [...] segment possibly due to flow dynamics and ieao-if-ombhrf technique as there appears to be normal contrast enhancement within the V4 segment on the MRA of the neck Basilar artery: Normal. licensed prosthetist: The left COMMUNITY LIVING INSTRUCTOR is normal. Diminished flow related enhancement within the distal right COMMUNITY LIVING INSTRUCTOR distribution likely sequelae of prior right COMMUNITY LIVING INSTRUCTOR infarct. IMPRESSION: 1. 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 2. Diminished flow related enhancement within the proximal right vertebral artery is likely due to flow dynamics and lfkz-js-kektxl technique is there is normal-appearing enhancement on the postcontrast MRA of the neck. 3. Otherwise, no high-grade stenosis, occlusion, or evidence of sizable aneurysm. Finalized by Zac Lucia on 06/10/2024 9:[address] [facility] SystemRadiology Study observation (narrative)Holzer HospitalMR Neck vessels WO and W contrast Dionisio [id number]: MR MRA NECK W WO CONT INDICATION: [...] by Zac Lucia on 06/10/2024 10:36 AM [facility] CountyNo Panel Informationon 06-10-2024 Radiology Study observation (narrative)Holzer HospitalBASI METABOLIC PANLon 73-17-3824Rwdwk gap [Moles/Vol]12 mmol/LNormal5-15ProFlower HospitalComment on above:Performed By: #### 85897-8, 2131-9, PINR, 23750-7, AHP, CMP, THYR, FEPR, CBCA, 66871-8, 01484-6, 1967-11, 2283-12, 2275- #### [facility] ([id number]) [address], [address] [place], [place] [address]Egjyxjw [Mass/Vol]8.7 mg/dLNormal8.5-10.5PWilson [address] HospitalComment on above:Performed By: #### 60557-5, 9, PINR, 62013-0, AHP, CMP, THYR, FEPR, CBCA, 12173-8, 70719-0, 1967-11, 2283-12, 2275- #### [facility] ([id number]) [address], [address] [place], [place] [address]Liukvdrh [Moles/Vol]102 mmol/ZXjpyfs15-493WhmNqhkwt [place] HospitalComment on above:Performed By: #### 19520-7, 2131-9, PINR, 09295-0, AHP, CMP, THYR, FEPR, CBCA, 22424-3, 69499-2, 1967-11, 2283-12, 2275-4 #### [facility] ([id number]) [address], [address] [place], [place] [address]QU5 [Moles/Vol]30 mmol/OHbefuc39-96LxySevskj [facility] Comment on above:Performed By: #### 34906-0, 2131-9, PINR, 40260-4, AHP, CMP, THYR, FEPR, CBCA, 77834-0, 19195-5, 1967-11, 2283-12, 2275- #### [facility] ([id number]) [address], [address] [place], [place] [address]Cgwzkeioxt [Mass/Vol]1.32 mg/dLHigh0.60-1.30ProFlower HospitalComment on above:Result Comment: METHOD TRACEABLE TO IDMS STANDARD Performed By: #### 47711-5, 9, PINR, 21092-1, AHP, CMP, THYR, FEPR, CBCA, 75798-2, 68423-5, 1967-11, 2283-12, 2275-08 #### [facility] ([id number]) [address], [address] [place], [place] [address]GEF/1.73 sq M.predicted among non-blacks MDRD (S/P/Bld) [Vol rate/Area]58 mL/min/{1.73_m2}Low>59ProFlower HospitalComment on above: Result Comment: Reported eGFR is based on the CKD-EPI 2020 equation that does not use a race coefficient.Performed By: #### 01347-4, 2131-9, PINR, 92103-7, AHP, CMP, THYR, FEPR, CBCA, 12930-0, 54332-3, 1967-11, 2283-12, 2275-08 #### [facility] ([id number]) [address], [address] [place], [place] [address]Nmkrkvt [Mass/Vol]99 mg/qEFzgleu77-33XajZxomcsMagruder Memorial Hospital Comment on above:Performed By: #### 30212-0, 2131-9, PINR, 58422-7, AHP, CMP, THYR, FEPR, CBCA, 59552-0, 28075-5, 1967-11, 2283-12, 2275-08 #### [facility] ([id number]) [address] [address], [address] [place], [place] [address]Yxkwtvriv [Moles/Vol]3.5 mmol/LNormal3.5-5.0ProFlower HospitalComment on above:Performed By: #### 38116-9, 2132-01, PINR, 29424-3, AHP, CMP, THYR, FEPR, CBCA, 53667-5, 84877-2, 1967-11, 2283-12, 2275-08 #### [facility] ([id number]) [address], [address] [place], [place] [address]Cpxzhr [Moles/Vol]144 mmol/FFcmtff290-330EacWzojvs [place] HospitalComment on above:Performed By: #### 94122-2, 2132-01, PINR, 29994-7, AHP, CMP, THYR, FEPR, CBCA, 99167-9, 19295-9, 1967-11, 2283-12, 2275-08 #### [facility] ([id number]) [address], [address] [place], [place] [address]Kojt nitrogen [Mass/Vol]18 mg/dLNormal5-27ProFlower HospitalComment on above:Performed By: #### 17116-0, 9, PINR, 27695-5, AHP, CMP, THYR, FEPR, CBCA, 59564-5, 58129-6, 1967-11, 2283-12, 2275-08 #### [facility] ([id number]) [address], [address] [place], [place] [address]Olnsb Metabolic Panelon 31-26-4128Kqkqs gap [Moles/Vol]12 mmol/L 5 - 15 mmol/LProMedica Health SystemCalcium [Mass/Vol]8.7 mg/dL8.5 - 10.5 mg/dL [facility]ica Health SystemChloride [Moles/Vol]102 mmol/L98 - 109 mmol/[facility] SystemCO2 [Moles/Vol]30 mmol/L22 - 32 mmol/[facility] Creatinine [Mass/Vol]1.32 mg/dLHigh0.60 - 1.30 mg/dLHolzer Hospital Comment on above:METHOD TRACEABLE TO IDMS STANDARDeGFR (CKD-EPI)non-race dfjcbqhqh09Cpd- PINCox MonettComment on above: Reported eGFR is based on the CKD-EPI 2020 equation that does not use a race coefficient. Glucose [Mass/Vol]99 mg/dL65 - 99 mg/dLHolzer HospitalInterpretation and review of laboratory resultsAbnormalHolzer HospitalPotassium [Moles/Vol]3.5 mmol/L3.5 - 5.0 mmol/[facility] SystemSodium [Moles/Vol] 144 mmol/L134 - 146 mmol/[facility] SystemUrea nitrogen [Mass/Vol]18 mg/dL5 - 27 mg/dLLifecare Hospital of Chester CountyCBC AND AUTO DIFF on 69-52-9942RLUQLCAB BASOPHIL0.1 X10E9/LNormal0.0-0.2PWilson Street Hospital Comment on above:Performed By: #### 07768-6, 2132-01, PINR, 77874-9, AHP, CMP, THYR, FEPR, CBCA, 78788-5, 12816-1, 1967-, 2283-, 2275- #### [facility] ([id number]) [address] [address], [address] [place], [place] [address]EYFZVCIO NEUTROPHIL5.0 X10E9/LNormal1.5-6.6Magruder Memorial HospitalComment on above:Performed By: #### 15952-0, 2132-01, PINR, 40383-4, AHP, CMP, THYR, FEPR, CBCA, 93618-1, 93595-7, 1967-, 2283-, 2275- #### [facility] ([id number]) [address] [facility], [address] [place], [place] [address]Redcykknzjga Ql (Bld)2+AbnormalNONEProMedica [facility] Comment on above:Performed By: #### 45702-2, 2131-9, PINR, 31270-5, AHP, CMP, THYR, FEPR, CBCA, 88972-8, 61151-3, 1967-7, 2283-8, 6-4 #### [facility] ([id number]) [address] [facility], [address] [place], [place] [address]Ohowdpiei/100 WBC (Bld)0.9 %NormalMagruder Memorial Hospital Comment on above:Performed By: #### 00304-6, 9, PINR, 84516-9, AHP, CMP, THYR, FEPR, CBCA, 12423-5, 58546-5, 1967-, 2283-, 6-4 #### [facility] ([id number]) [address] [facility] [facility] [facility], [address] [place], [place] [address]Vvzvoooiyms (Bld) [#/Vol]0.1 10*3/uLNormal0.0-0.4ProFlower HospitalComment on above:Performed By: #### 24987-9, 9, PINR, 27863- 9, AHP, CMP, THYR, FEPR, CBCA, 49091-1, 21723-6, 1967-11, 2283-12, 6-4 #### [facility] ([id number]) [address] [facility] [facility] [facility], [address] [place], [place] [address]Uxbnnhgtbjr/100 WBC (Bld)1.3 %NormalMagruder Memorial Hospital Comment on above:Performed By: #### 33438-8, 9, PINR, 51609-0, AHP, CMP, THYR, FEPR, CBCA, 25287-6, 97322-3, 1967-11, 2283-12, 6-4 #### [facility] ([id number]) [address], [address] [place], [place] [address]Yhyjdtwnlqd distribution width (RBC) [Ratio]24.1 %High11.5-15.0 [facility] Hospital - CantonComment on above:Performed By: #### 17932-7, 2132-01, PINR, 11709-7, AHP, CMP, THYR, FEPR, CBCA, 89851-0, 51937-7, 1967-11, 2283-12, 2275- #### [facility] ([id number]) [address], [address] [place], [place] [address]ZTXRHAAO3+AbnormalNONEProMedica Select Medical Specialty Hospital - CantonComment on above: Performed By: #### 57143-8, 2132-01, PINR, 43078-9, AHP, CMP, THYR, FEPR, CBCA, 88468-0, 52405-9, 1967-11, 2283-12, 2275- #### [facility] ([id number]) [address] [facility] [facility] [facility], [address] [place], [place] [address]Dwuzjkkbzq (Bld) [Volume fraction]40.9 %Dqplku57-91DmuAizmboFlower HospitalComment on above:Performed By: #### 35924-6, 2132-01, PINR, 9, AHP, CMP, THYR, FEPR, CBCA, 03830-6, 52505-0, 1967-11, 2283-12, 2275- #### [facility] ([id number]) [address], [address] [place], [place] [address]Zqbsebrlbx (Bld) [Mass/Vol]12.6 g/dLLow13.0-17.0ProFlower HospitalComment on above:Performed By: #### 26478-4, 2132-01, PINR, 74946-9, AHP, CMP, THYR, FEPR, CBCA, 75305-2, 18732-9, 1967-11, 2283-12, 2275- #### [facility] ([id number]) [address], [address] [place], [place] [address]GNPBRTSYTIR5+AbnormalNONEPWilson Street HospitalComment on above:Performed By: #### 07803-5, 9, PINR, 78183-4, AHP, CMP, THYR, FEPR, CBCA, 28281-8, 51894-7, 1967-11, 2283-12, 2275- #### [facility] ([id number]) [address], [address] [place], [place] [address]Suzudvzrzte (Bld) [#/Vol]0.5 10*3/uLLow1.0-3.5ProMedCentervilleComment on above:Performed By: #### 56471-4, 2132-01, PINR, 30520-3, AHP, CMP, THYR, FEPR, CBCA, 53338-3, 58123-3, 1967-11, 2283-12, 2275- #### [facility] ([id number]) [address], [address] [place], [place] [address]Wrwfvbqjvcz/100 WBC (Bld)8.4 %NormalMagruder Memorial Hospital Comment on above:Performed By: #### 41948-2, 2132-01, PINR, 95646-6, AHP, CMP, THYR, FEPR, CBCA, 26666-9, 36235-4, 1967-11, 2283-12, 2275- #### [facility] ([id number]) [address], [address] [place], [place] [address]GHK (RBC) [Entitic mass]22.5 paHdc50-77WhsXacmqtMagruder Memorial Hospital Comment on above:Performed By: #### 42603-2, 9, PINR, 25849-6, AHP, CMP, THYR, FEPR, CBCA, 70142-0, 05145-9, 1967-11, 2283-12, 2275- #### [facility] ([id number]) [address], [address] [place], [place] [address]YRGQ (RBC) [Mass/Vol]30.7 g/wQXjg78-98XtgNblzimMagruder Memorial Hospital Comment on above:Performed By: #### 03883-6, 2131-9, PINR, 28819-4, AHP, CMP, THYR, FEPR, CBCA, 69791-8, 67021-7, 1967-11, 2283-12, 2275- #### [facility] ([id number]) [address], [address] [place], [place] [address]KNE (RBC) [Entitic vol]73 bIMnt22-553UybCmqomyMagruder Memorial Hospital Comment on above:Performed By: #### 67913-6, 2131-9, PINR, 42127-6, AHP, CMP, THYR, FEPR, CBCA, 52206-6, 04440-9, 1967-11, 2283-12, 2275- #### [facility] ([id number]) [address], [address] [place], [place] [address]Amnmhhzof (Bld) [#/Vol]0.4 10*3/uLNormal0-0.9Mag[facility]uder Memorial HospitalComment on above:Performed By: #### 77438-2, 2131-9, PINR, 65391-9, AHP, CMP, THYR, FEPR, CBCA, 81500-9, 78258-3, 1967-11, 2283-12, 2275- #### [facility] ([id number]) [address], [address] [place], [place] [address]Uuwnbklmk/100 WBC (Bld)6.3 %NormalMagruder Memorial Hospital Comment on above:Performed By: #### 55502-4, 2131-9, PINR, 04573-1, AHP, CMP, THYR, FEPR, CBCA, 42742-0, 21696-3, 1967-11, 2283-12, 2275-08 #### [facility] ([id number]) [address], [address] [place], [place] [address]Eiqcvoganaw/100 WBC (Bld)83.1 %NormalProFlower Hospital Comment on above:Performed By: #### 01341-1, 2131-9, PINR, 24363-3, AHP, CMP, THYR, FEPR, CBCA, 68693-9, 18148-4, 1967-11, 2283-12, 2275-08 #### [facility] ([id number]) [address], [address] [place], [place] [address]LYKUEASWZ9+AbnormalNONEProMedica Select Medical Specialty Hospital - CantonComment on above:Performed By: #### 50014-6, 2131-9, PINR, 72915-4, AHP, CMP, THYR, FEPR, CBCA, 54880-8, 67864-7, 1967-11, 2283-12, 2275- #### [facility] ([id number]) [address], [address] [place], [place] [address]Zpzyhlfc mean volume (Bld) [Entitic vol]8.8 fLNormal7-12 [facility] Hospital - CantonComment on above:Performed By: #### 78117-1, 2131-9, PINR, 48941-6, AHP, CMP, THYR, FEPR, CBCA, 04385-9, 57913-5, 1967-11, 2283-12, 2275- #### [facility] ([id number]) [address], [address] [place], [place] [address]Irvitceiq (Bld) [#/Vol]271 10*3/eLTpwhqg207-076NcvIswxkh [facility] - CantonComment on above:Performed By: #### 09108-5, 2131-9, PINR, 52848-4, AHP, CMP, THYR, FEPR, CBCA, 37582-4, 49225-7, 1967-11, 2283-12, 2275-08 #### [facility] ([id number]) [address] [facility] [facility], [address] [place], [place] [address]AJU COUNT5.59 X10E12/LNormal4.10-5.70[facility] Comment on above:Performed By: #### 33152-1, 2131-9, PINR, 02604-8, AHP, CMP, THYR, FEPR, CBCA, 24274-3, 78774-3, 1967-, 2283-12, 2275- #### [facility] ([id number]) [address] [facility], [address] [place], [place] [address]UAD (Bld) [#/Vol]6.0 10*3/uLNormal4.0-11.0Mag[facility]uder Memorial HospitalComment on above:Performed By: #### 64045-0, 9, PINR, 49568-5, AHP, CMP, THYR, FEPR, CBCA, 64341-6, 11266-0, 1967-11, 2283-12, 2275-08 #### [facility] ([id number]) [address], [address] [place], [place] [address]UZO auto differentialon 39-53-5056Yphbjynupixa Ql (Bld)2+ AbnormalNONE^NONEProMedica Health SystemBasophils (Bld) [#/Vol]0.1 10*3/uL [facility] SystemBasophils/100 WBC (Bld)0.9 %[facility] Eosinophils (Bld) [#/Vol]0.1 10*3/uLProMedica Health SystemEosinophils/100 WBC (Bld)1.3 %[facility]ica Health SystemErythrocyte distribution width (RBC) [Ratio] 24.1 %High11.5 - 15.0 %[facility]ica Health SystemFragments LM Ql (Bld)1+Abnormal NONE^NONEProMedica Health SystemHematocrit (Bld) [Volume fraction]40.9 %39 - 49 %[facility] Health SystemHemoglobin (Bld) [Mass/Vol]12.6 g/dLLow13.0 - 17.0 g/dL [facility] HospitalHypochromia Ql (Bld)2+AbnormalNONE^[facility] CenterInterpretation and review of laboratory resultsAbnormOhioHealth Mansfield HospitalLymphocytes (Bld) [#/Vol]0.5 10*3/uLHocking Valley Community Hospital Lymphocytes/100 WBC (Bld)8.4 %[facility] Medical CenterH (RBC) [Entitic mass] 22.5 pgLow27 - 34 [facility] HospitalMCHC (RBC) [Mass/Vol]30.7 g/dLLow32 - 36 g/dLHolzer HospitalMCV (RBC) [Entitic vol]73 fLLow80 - 100 fL [facility] HospitalMonocytes (Bld) [#/Vol]0.4 10*3/uLHolzer Hospital Monocytes/100 WBC (Bld)6.3 %[facility] HospitalNeutrophils (Bld) [#/Vol]5 10*3/uLHolzer HospitalNeutrophils/100 WBC (Bld)83.1 %[facility] HospitalOvalocytes LM Ql (Bld)2+AbnormalNONE^[facility] CenterPlatelet mean volume (Bld) [Entitic vol]8.8 fL7 - 12 [facility] CarePlatelets (Bld) [#/Vol]271 10*3/uLHolzer HospitalRBC (Bld) [#/Vol]5.59 10*6/uL [facility] HospitalWBC corrected for nucl RBC Auto (Bld) [#/Vol]6[facility] CountyECG 12 leadon 06-32-7130HQVPGKZRRFGUIP [facility] HospitalPOTASSIUMon 83-88-0450Pcuqforpu [Moles/Vol]3.8 mmol/L Normal3.5-5.0[facility]uder Memorial HospitalComment on above:Performed By: #### 77828- 0, 2132-9, PINR, 72209-7, AHP, CMP, THYR, FEPR, CBCA, 70986-9, 12352-6, 1967-11, 2283-12, 2275-4 #### [facility] ([id number]) [address] [facility] [facility] [facility] [place], [place] [address]Ewyyzggsbiw 26-45-5145Qqwuecptt [Moles/Vol]3.8 mmol/L3.5 - 5.0 mmol/[facility] HospitalPotassium [Moles/Vol]on 36-44-8759PsdZfxjqnHolzer HospitalAPTBanner Ironwood Medical Center 05-04-7851vSTH Coag (PPP) [Time]38 [facility] HospitalaPTT Coag (PPP) [Time]80 [facility] HospitalBASIC METABOLIC PANLon 10-45-9000Emdev gap [Moles/Vol]13 mmol/LNormal5-15[facility] Comment on above:Performed By: #### 50068-5, 2132-01, PINR, 74996-3, AHP, CMP, THYR, FEPR, CBCA, 39504-3, 09294-6, 1967-11, 2283-12, 2275-4 #### [facility] ([id number]) [address] [facility] [facility], [address] [place], [place] [address]Agdlfxi [Mass/Vol]8.3 mg/dLLow8.5-10.[address] [place] [address] Comment on above:Performed By: #### 09418-4, 2132-01, PINR, 31461-1, AHP, CMP, THYR, FEPR, CBCA, 36272-8, 77442-8, 1967-11, 2283-12, 2275-4 #### [facility] ([id number]) [address] [facility] [facility] [facility], [address] [place], [place] [address]Pqoeantx [Moles/Vol]107 mmol/CFxgayv35-658HjlJakgzj [facility] HospitalComment on above:Performed By: #### 93438-0, 2132-01, PINR, 66731-7, AHP, CMP, THYR, FEPR, CBCA, 02412-1, 46807-7, 1967-11, 2283-12, 2275-08 #### [facility] ([id number]) [address], [address] [place], [place] [address]HI8 [Moles/Vol]26 mmol/HDunwnu06-29OnkMszcelWilson Street Hospital Comment on above:Performed By: #### 03195-0, 2131-9, PINR, 96778-3, AHP, CMP, THYR, FEPR, CBCA, 27173-0, 26591-7, 1967-11, 2283-12, 2275-08 #### [facility] ([id number]) [address], [address] [place], [place] [address]Avwvwwxqdo [Mass/Vol]1.58 mg/dLHigh0.60-1.30Mag[facility]uder Memorial HospitalComment on above:Result Comment: METHOD TRACEABLE TO IDMS STANDARD Performed By: #### 63661-1, 9, PINR, 95095-0, AHP, CMP, THYR, FEPR, CBCA, 40032-8, 12193-6, 1967-11, 2283-12, 2275-08 #### [facility] ([id number]) [address], [address] [place], [place] [address]TWW/1.73 sq M.predicted among non-blacks MDRD (S/P/Bld) [Vol rate/Area]47 mL/min/{1.73_m2}Low>59ProFlower HospitalComment on above: Result Comment: Reported eGFR is based on the CKD-EPI 2020 equation that does not use a race coefficient.Performed By: #### 71401-9, 2131-9, PINR, 89150-3, AHP, CMP, THYR, FEPR, CBCA, 83486-9, 99493-3, 1967-11, 2283-12, 2275-08 #### [facility] ([id number]) [address], [address] [place], [place] [address]Rmbkqoi [Mass/Vol]117 mg/eEYnkd60-37VeuSmprykFlower Hospital Comment on above:Performed By: #### 08839-2, 2131-9, PINR, 64243-6, AHP, CMP, THYR, FEPR, CBCA, 45046-1, 59769-1, 1967-11, 2283-12, 2275- #### [facility] ([id number]) [address], [address] [place], [place] [address]Tyvuptjiy [Moles/Vol]3.4 mmol/LLow3.5-5.0ProFlower HospitalComment on above:Performed By: #### 32616-1, 9, PINR, 11051-7, AHP, CMP, THYR, FEPR, CBCA, , 36170-1, 1967-11, 2283-12, 2275-08 #### [facility] ([id number]) [address], [address] [place], [place] [address]Bfblmk [Moles/Vol]146 mmol/ULttkkm414-290DyiTwxkxb [facility] HospitalComment on above:Performed By: #### 52014-7, 9, PINR, 77880-5, AHP, CMP, THYR, FEPR, CBCA, 82863-9, , 1967-11, 2283-12, 2275- #### [facility] ([id number]) [address], [address] [place], [place] [address]Psts nitrogen [Mass/Vol]24 mg/dLNormal5-27ProFlower HospitalComment on above:Performed By: #### 97926-9, 9, PINR, 22169-8, AHP, CMP, THYR, FEPR, CBCA, 48157-9, 80841-7, 1967-11, 2283-12, 2275- #### [facility] ([id number]) [address], [address] [place], [place] [address]Reuhcovq identified Cx Nom (U)on 59-56-4639Pvmywcj comment (Unsp spec) [Interp]NO GROWTH AT <1000 CFU/mLLifecare Hospital of Chester CountyBasic Metabolic Panelon 88-76-6814Fiumr gap [Moles/Vol]13 mmol/L5 - 15 mmol/[facility] SystemCalcium [Mass/Vol]8.3 mg/dLLow8.5 - 10.5 mg/dL [facility]icMer[facility] SystemChloride [Moles/Vol]107 mmol/L98 - 109 mmol/[facility] SystemCO2 [Moles/Vol]26 mmol/L22 - 32 mmol/[facility] Creatinine [Mass/Vol]1.58 mg/dLHigh0.60 - 1.30 mg/dLHolzer Hospital Comment on above:METHOD TRACEABLE TO IDCT STANDARDeGFR (CKD-EPI)non-race [id number] [place], [place] [address]Comment on above: Reported eGFR is based on the CKD-EPI 2020 equation that does not use a race coefficient. Glucose [Mass/Vol]117 mg/pGRaub51 - 99 mg/dLHolzer Hospital Interpretation and review of laboratory resultsAbnormalHolzer Hospital Potassium [Moles/Vol]3.4 mmol/LLow3.5 - 5.0 mmol/[facility] SystemSodium [Moles/Vol]146 mmol/L134 - 146 mmol/[facility] SystemUrea nitrogen [Mass/Vol]24 mg/dL5 - 27 mg/dLHolzer HospitalCT BRAIN WO CONTon 30-83-6880DN BRAIN WO CONTCT BRAIN WO CONT Nonenhanced [...] by Uriel Smith MD on 06/08/2024 8:36 [facility] CT BRAIN WO CONTCT BRAIN WO CONT [...] by Zac Lewis MD on 06/08/2024 11:06 [facility] CenterCT Head WO contraston 15-70-6396Udfaemnzmry CT of the brain dated dated 06/08/2024 [...] Uriel Smith MD on 06/08/2024 8:36 PM [facility] SystemRadiology Study observation (narrative)[facility] SystemCT OF THE HEAD WITHOUT CONTRAST INDICATION: [...] Zac Lewis MD on 06/08/2024 11:06 AM [facility] HospitalRadiology Study observation (narrative)[facility] HospitalCT Head WO contrastOrdered By: Uriel Smith on 03-49-4156QctXvjmkhHolzer Hospital Work Phone: CT Head WO contrastOrdered By: Zac Lewis on 35-61-6705VrlXymptaHolzer Hospital Work Phone: HEMOGLOBINon 45-22-4293Cuxfdvqeyt (Bld) [Mass/Vol]11.3 g/dLLow13.0-17.0Magruder Memorial HospitalComment on above:Performed By: #### 14866-2, 2132-9, PINR, 94117-7, AHP, CMP, THYR, FEPR, CBCA, 59935-7, 01976-5, 1968-7, 2284-8, 2275-08 #### [facility] ([id number]) [address], [address] [place], [place] [address]YKU A1C (GLYCO-HGB)on 92-58-7422Nqhujlh [Mass/Vol]123 mg/dL NormalProFlower HospitalComment on above:Performed By: #### 51963-1, 2132-01, PINR, 35550-6, AHP, CMP, THYR, FEPR, CBCA, , 14038-0, 1967-11, 2283-12, 2275-08 #### [facility] ([id number]) [address], [address] [place], [place] [address]LtS3c (Bld) [Mass fraction]5.9 %High4.4-5.6ProFlower HospitalComment on above:Result Comment: NOTE ADA Guidelines Result HgbA1c Normal : less than 5.7 % Prediabetes : 5.7 % to 6.4 % Diabetes : > 6.4 % Use with caution in patients with abnormal hemoglobin variants as the half-life of red blood cells and in vivo glycation rates are affected.Performed By: #### 84301-6, 2132-01, PINR, 05829-7, AHP, CMP, THYR, FEPR, CBCA, 20918-0, 33717-4, 1967-11, 2283-12, 2275-08 #### [facility] ([id number]) [address] [facility], [address] [place], [place] [address]Sknfljdqasqq 03-95-5572Erfjgpqddt (Bld) [Mass/Vol]11.3 g/dLLow 13.0 - 17.0 g/dLHolzer HospitalHemoglobin (Bld) [Mass/Vol]on 06-08-2024 Interpretation and review of laboratory resultsAbnormalHolzer Hospital Hemoglobin A1con 30-79-1590Ehxgpvt glucose Estimated from glycated hemoglobin (Bld) [Mass/Vol]123 mg/dLHolzer HospitalHbA1c (Bld) [Mass fraction]5.9 % High4.4 - 5.6 %Holzer HospitalComment on above:NOTE ADA Guidelines Result HgbA1c Normal : less than 5.7 % Prediabetes : 5.7 % to 6.4 % Diabetes : > 6.4 % Use with caution in patients with abnormal hemoglobin variants as the half-life of red blood cells and in vivo glycation rates are affected. Interpretation and review of laboratory resultsAbnormalFriends HospitalLIVER PANELon 16-47-0549Hlgnqsx [Mass/Vol]2.9 g/dLLow 3.2-5.3ProMed[facility] Hospital - CantonComment on above:Performed By: #### 55245-3, 9, PINR, 92577-1, AHP, CMP, THYR, FEPR, CBCA, 08653-2, 75477-7, 1967-11, 2283-12, 2275- #### [facility] ([id number]) [address] [place] [address], [address] [place], [place] [address]ECM [Catalytic activity/Vol]65 U/CXzbeaj58-883JboSrzalaMagruder Memorial HospitalComment on above:Performed By: #### 96246-0, 2132-01, PINR, 32295-4, AHP, CMP, THYR, FEPR, CBCA, 72646-9, 50065-7, 1967-11, 2283-12, 2275-4 #### [facility] ([id number]) [address] [place] [address], [address] [place], [place] [address]CSU [Catalytic activity/Vol]20 U/LNormal0-40ProFlower HospitalComment on above:Performed By: #### 23206-9, 9, PINR, 22322-4, AHP, CMP, THYR, FEPR, CBCA, 14146-6, 05311-1, 1967-11, 2283-12, 2275-08 #### [facility] ([id number]) [address] [facility] [facility] [facility], [address] [place], [place] [address]HNP [Catalytic activity/Vol]31 U/LNormal0-41ProFlower HospitalComment on above:Performed By: #### 42859-3, 9, PINR, 37743-3, AHP, CMP, THYR, FEPR, CBCA, 49875-0, 99091-7, 1967-11, 2283-12, 2275-08 #### [facility] ([id number]) [address] [facility], [address] [place], [place] [address]Fzjjxtkdd [Mass/Vol]1.3 mg/dLHigh0.3-1.2ProMedCentervilleComment on above:Performed By: #### 81337-5, 9, PINR, 60196-4, AHP, CMP, THYR, FEPR, CBCA, 32072-6, 79587-9, 1967-11, 2283-12, 2275-08 #### [facility] ([id number]) [address] [facility], [address] [place], [place] [address]Bicuqjybf.direct [Mass/Vol]0.5 mg/dLHigh0.0-0.4ProFlower HospitalComment on above:Performed By: #### 16200-5, 9, PINR, 19452-6, AHP, CMP, THYR, FEPR, CBCA, 41954-1, 06928-3, 1967-11, 2283-12, 2275-08 #### [facility] ([id number]) [address] [facility] [facility] [facility], [address] [place], [place] [address]Rggmybz [Mass/Vol]5.7 g/dLLow6.0-8.0ProFlower Hospital Comment on above:Performed By: #### 55835-6, 9, PINR, 75910-1, AHP, CMP, THYR, FEPR, CBCA, , 92179-9, 1967-11, 2283-12, 2275- #### [facility] ([id number]) [address] [facility], [address] [place], [place] [address]Khebe 1996 panelon 11-85-5132Ttjqdofyxqs [Mass/Vol]135 mg/dLLow 150 - 200 mg/dLSouthwest General Health Center SystemCholesterol in HDL [Mass/Vol]25 mg/dLLow39 - PINF mg/dLHolzer HospitalComment on above: HDL <40 mg/dL - High Risk HDL > or = 40mg/dL- Desirable HDL >60 mg/dL - Negative Risk Cholesterol in LDL [Mass/Vol]96 mg/dLNINF - 130 mg/dLSouthwest General Health Center System Comment on above: LDL <100 mg/dL - Desirable LDL >160 mg/dL - High Risk Cholesterol in VLDL [Mass/Vol]14 mg/dL0 - 30 mg/dLSouthwest General Health Center System Cholesterol.total/Cholesterol in HDL [Mass ratio]5.4 {ratio}High1.0 - 5.0 Holzer HospitalInterpretation and review of laboratory resultsAbnormal Holzer HospitalTriglyceride [Mass/Vol]70 mg/dL27 - 150 mg/dLSouthwest General Health Center SystemSouthwest General Health Center SystemCholesterol [Mass/Vol]135 mg/aQQor425-499 [facility] HospitalComment on above:Performed By: #### 03882-4, 9, PINR, 60140-9, AHP, CMP, THYR, FEPR, CBCA, 76779-7, 91198-3, 1967-11, 8, 2275- #### [facility] ([id number]) [address] [facility], [address] [place], [place] [address]Liqofmnudow in HDL [Mass/Vol]25 mg/dLLow>39ProFlower HospitalComment on above:Result Comment: HDL <40 mg/dL - High Risk HDL > or = 40mg/dL- Desirable HDL >60 mg/dL - Negative Risk Performed By: #### 25300-0, 2132-01, PINR, 51788-4, AHP, CMP, THYR, FEPR, CBCA, , , 1967-11, 2283-12, 2275-08 #### [facility] ([id number]) [address] [facility], [address] [place], [place] [address]Mxqlvrokrmr in LDL [Mass/Vol]96 mg/dLNormal<130ProFlower HospitalComment on above:Result Comment: LDL <100 mg/dL - Desirable LDL >160 mg/dL - High Risk Performed By: #### 27593-6, 9, PINR, 93759-0, AHP, CMP, THYR, FEPR, CBCA, , , 1967-11, 2283-12, 2275-08 #### [facility] ([id number]) [address] [facility], [address] [place], [place] [address]Ubctzmqngff in VLDL [Mass/Vol]14 mg/dLNormal0-30ProC[facility]innati [facility] on above:Performed By: #### 21627-3, 9, PINR, 35874-3, AHP, CMP, THYR, FEPR, CBCA, 19822-5, 20972-4, 1967-11, 2283-12, 2275-08 #### [facility] ([id number]) [address] [facility] [facility], [address] [place], [place] [address]TSOWUQQJBQN:HDL5.4High1.0-5.0ProFlower HospitalComment on above:Performed By: #### 03564-0, 2131-9, PINR, 50668-5, AHP, CMP, THYR, FEPR, CBCA, 45656-9, 24716-8, 1967-11, 8, 2275-4 #### [facility] ([id number]) [address] [facility], [address] [place], [place] [address]Wemtdkezwohe [Mass/Vol]70 mg/jTZojwvz43-370IwzRiutjb Toledo HospitalComment on above:Performed By: #### 69218-5, 9, PINR, 70695-2, AHP, CMP, THYR, FEPR, CBCA, 30982-3, 63240-4, 1967-11, 2283-12, 2275-08 #### [facility] ([id number]) [address] [facility], [address] [place], [place] [address]Hsten panelon 12-10-4978Vqpcqty [Mass/Vol]2.9 g/dLLow3.2 - 5.3 g/dLProMedica Health SystemALP [Catalytic activity/Vol]65 U/L39 - 130 U/L [facility] Health SystemALT No additional P-5'-P [Catalytic activity/Vol]20 U/L0 - 40 U/LProMedica Health SystemAST [Catalytic activity/Vol]31 U/L0 - 41 U/L [facility] Health SystemBilirubin [Mass/Vol]1.3 mg/dLHigh0.3 - 1.2 mg/dLProMedica Health SystemBilirubin.direct [Mass/Vol]0.5 mg/dLHigh0.0 - 0.4 mg/dLProMarshall Medical Center North Health SystemInterpretation and review of laboratory resultsAbnormalProMarshall Medical Center North Health SystemProtein [Mass/Vol]5.7 g/dLLow6.0 - 8.0 g/dLProMemorial Health System [facility] System [facility] SystemMAGNESIUMon 56-50-2071Eglwxytxx [Mass/Vol]2.5 mg/dLNormal 1.8-2.6Magruder Memorial HospitalComment on above:Performed By: #### 54965-5, 2131-9, PINR, 98275-3, AHP, CMP, THYR, FEPR, CBCA, 01845-1, 93211-9, 1967-, 8, 2275- #### [facility] ([id number]) [address], [address] [place], [place] [address]Etpgthmfptj 28-46-6514Iierkckpz [Mass/Vol]2.5 mg/dL1.8 - 2.6 mg/dLHolzer HospitalNo Panel Informationon 67-69-5331MxgWhbjsfLicking Memorial HospitalProMemorial Health System [facility] SystemPLATELET COUNT AND MPVon 90-17-2176Hafxquky mean volume (Bld) [Entitic vol]8.7 fLNormal7-12ProMedCentervilleComment on above:Performed By: #### 06404-1, 2131-9, PINR, 05421-4, AHP, CMP, THYR, FEPR, CBCA, 22428-3, 30216-9, 1967-11, 2283-12, 2275- #### [facility] ([id number]) [address], [address] [place], [place] [address]Wsbgvsqgs (Bld) [#/Vol]277 10*3/eJBeabyi325-862SvyFdrybgMagruder Memorial HospitalComment on above:Performed By: #### 70709-3, 2131-9, PINR, 95432-1, AHP, CMP, THYR, FEPR, CBCA, 97722-8, 58844-5, 1967-11, 2283-12, 2275- #### [facility] ([id number]) [address], [address] [place], [place] [address]VVVTYUERVrs 74-56-1388Crehixruf [Moles/Vol]3.3 mmol/LLow3.5-5.0 [facility] Memorial HospitalComment on above:Performed By: #### 94466-5, 2131-9, PINR, 81841-9, AHP, CMP, THYR, FEPR, CBCA, 71953-4, 87268-3, 1967-7, 2283-8, 6-4 #### [facility] ([id number]) [address], [address] [place], [place] [address]CSONWHD AND INRon 12-09-9435RLR Coag (PPP) [Relative time]1.2 {INR}High0.8-1.1PWilson Street HospitalComment on above:Performed By: #### 86085-9, 2131-9, PINR, 59002-7, AHP, CMP, THYR, FEPR, CBCA, 26317-3, 00351-2, 1967-, 2283-12, 6-4 #### [facility] ([id number]) [address], [address] [place], [place] [address]OK Coag (PPP) [Time]13.[address] Hospital Comment on above:Performed By: #### 45466-9, 2131-9, PINR, 78711-0, AHP, CMP, THYR, FEPR, CBCA, 84629-8, 75983-0, 1967-11, 2283-12, 6-4 #### [facility] ([id number]) [address], [address] [place], [place] [address]Poiqrnoq counton 46-87-8465Anmpjgki mean volume (Bld) [Entitic vol]8.7 fL7 - 12 [facility] SystemPlatelets (Bld) [#/Vol]277 10*3/uL Holzer HospitalPotassiumon 79-42-6940Doilhvhrx [Moles/Vol]3.3 mmol/LLow 3.5 - 5.0 mmol/LProMedCleveland Clinic Akron General SystemPotassium [Moles/Vol]on 06-08-2024 Interpretation and review of laboratory resultsAbMile Bluff Medical CenterProtime & INRon 14-29-2656OPG Coag (PPP) [Relative time] 1.2 {INR}CJW Medical CenterInterpretation and review of laboratory resultsAbnoMaria Parham HealthPT Coag (PPP) [Time]13.9 [facility] Clinics of PennsylvaniaaPTT Coag (PPP) [Time]on 06-08-2024 Interpretation and review of laboratory resultsAbnoOrthopaedic Hospital of Wisconsin - GlendaleaPTT Coag (Bld) [Time]38 [address] StreetCombeaumont hospital on above:Performed By: #### 78466-1, 2131-9, PINR, 08031-1, AHP, CMP, THYR, FEPR, CBCA, 92377-9, 58192-1, 1967-, 2283-8, 2276-4 #### [facility] ([id number]) [address] [facility], [address] [place], [place] [address]Xxwcsbrhpnjbzt and review of laboratory resultsAbJefferson Lansdale HospitalaPTT Coag (Bld) [Time]80 [address] StreetCombeaumont hospital on above:Performed By: #### 07522-4, 2131-9, PINR, 48021-3, AHP, CMP, THYR, FEPR, CBCA, 86072-9, 45608-8, 1967-, 2283-8, 2276-4 #### [facility] ([id number]) [address] [facility] [facility] [place], [place] [address]PMWQA HEPATITIS PANELon 68-28-7731AWPU HCV W/PCR REFLX Non-ReactiveNoCleveland Clinic Akron General Lodi HospitalCombeaumont hospital on above:Result Comment: NEW TEST METHOD NOTE If recent infection suspected, recommend repeat testing (>2 months). Gkiocp-rk-qfvejf ratio is <1.00.Performed By: #### 87414-6, 2-9, PINR, 86756- 9, AHP, CMP, THYR, FEPR, CBCA, 84761-8, 52641-8, 1967-11, 2283-12, 2275- #### [facility] ([id number]) [address] [facility], [address] [place], [place] [address]FQKVBMQKV A IGMNon-ReactiveNormalNRCTMagruder Memorial Hospital Comment on above:Result Comment: NEW TEST METHODPerformed By: #### 91342-7, 2131-9, PINR, 43850-2, AHP, CMP, THYR, FEPR, CBCA, 94603-0, 26108-5, 1967-11, 2283-12, 2275- #### [facility] ([id number]) [address] [facility], [address] [place], [place] [address]BQPHPKQNW B CORE IGMNon-ReactiveNormalNRCTMagruder Memorial HospitalComment on above:Result Comment: NEW TEST METHODPerformed By: #### 88399-1, 2131-9, PINR, 99680-0, AHP, CMP, THYR, FEPR, CBCA, 14620-7, 79704-0, 1967-11, 2283-12, 2275- #### [facility] ([id number]) [address] [facility] [facility] [facility], [address] [place], [place] [address]LRKOSHNQM B SURF AGNon-ReactiveNormalNRCTMagruder Memorial HospitalComment on above:Result Comment: NEW TEST METHODPerformed By: #### 32146-0, 2131-9, PINR, 11509-6, AHP, CMP, THYR, FEPR, CBCA, 54999-2, 24656-8, 1967-11, 2283-12, 2275-08 #### [facility] ([id number]) [address] [facility] [facility], [address] [place], [place] [address]ONKNMNZdi 56-01-6064Ostagtl (P) [Moles/Vol]32 umol/EVzsemw24-18 [facility] Hospital - CantonComment on above:Result Comment: NEW REFERENCE RANGE Performed By: #### 98378-6, 2-9, PINR, 33209-5, AHP, CMP, THYR, FEPR, CBCA, 62844-8, 60372-8, 1967-7, 2284-8, 2276-4 #### [facility] ([id number]) [address] [facility] [facility], [address] [place], [place] [address]PITLhy 08-52-4702rBSA Coag (PPP) [Time]52 [facility] SystemaPTT Coag (PPP) [Time]37 sPrAshtabula County Medical Center SystemAmmoniaon 06-07-2024 Ammonia (P) [Moles/Vol]32 umol/L18 - 72 umol/LProMedica University Hospitals Geauga Medical Center SystemComment on above:NEW REFERENCE RANGEAmmonia (P) [Moles/Vol]on 94-16-0273DomYbctjnHolzer HospitalAnti XA unfractionated heparinon 98-34-6269Xjyvhrk unfractionated Chromogenic method Qn (PPP)0.14LowHolzer HospitalComment on above: Optimal time for testing is 6 hrs post dosage This test is specific for monitoring patients on UFH, and is not recommended for use with other Anti-Xa medications. BILIRUBIN,DIRECTon 80-37-7029Qzvjfarqo.direct [Mass/Vol]0.6 mg/dLHigh0.0-0.4 [facility] HospitalComment on above:Performed By: #### 13055-9, 2131-9, PINR, 88038-5, AHP, CMP, THYR, FEPR, CBCA, 79640-3, 80662-0, 1967-7, 2283-8, 2276-4 #### [facility] ([id number]) [address] [facility] [facility], [address] [place], [place] [address]Npanzggob, directon 82-21-0427Bvsqavgxc.direct [Mass/Vol]0.6 mg/dLHigh0.0 - 0.4 mg/dLHolzer HospitalBilirubin.direct [Mass/Vol]on 02-22-6460Yfnkdidmalkacl and review of laboratory resultsAbnormalProMedica Health SystemProMedica Health SystemCBC AND AUTO DIFFon 54-06-8516IACXSWQS BASOPHIL0.1 X10E9/LNormal0.0-0.2PWilson Street HospitalComment on above: Performed By: #### 70240-8, 2131-9, PINR, 78111-0, AHP, CMP, THYR, FEPR, CBCA, 56558-1, 37740-2, 1967-11, 2283-12, 2275- #### [facility] ([id number]) [address], [address] [place], [place] [address]HNLWBVIH NEUTROPHIL5.7 X10E9/LNormal1.5-6.6ProFlower HospitalComment on above:Performed By: #### 68716-0, 9, PINR, 06561-1, AHP, CMP, THYR, FEPR, CBCA, 37186-6, 12438-1, 1967-11, 2283-12, 2275- #### [facility] ([id number]) [address] [facility] [facility], [address] [place], [place] [address]Wtxbebieyqws Ql (Bld)2+AbnormalNONEPWilson Street Hospital Comment on above:Performed By: #### 21465-4, 9, PINR, 79348-4, AHP, CMP, THYR, FEPR, CBCA, 43081-2, 56285-2, 1967-11, 2283-12, 2275- #### [facility] ([id number]) [address], [address] [place], [place] [address]Ljzsrpgpe/100 WBC (Bld)1.8 %NormalMagruder Memorial Hospital Comment on above:Performed By: #### 80381-6, 9, PINR, 13906-5, AHP, CMP, THYR, FEPR, CBCA, 20097-6, 09317-3, 1967-11, 2283-12, 2275-4 #### [facility] ([id number]) [address] [facility], [address] [place], [place] [address]Hdvroerflfm (Bld) [#/Vol]0.1 10*3/uLNormal0.0-0.4ProFlower HospitalComment on above:Performed By: #### 59446-7, 9, PINR, 36995- 9, AHP, CMP, THYR, FEPR, CBCA, 27134-5, 86740-9, 1967-, 2283-12, 2275-4 #### [facility] ([id number]) [address] [facility], [address] [place], [place] [address]Gvylxnbfwci/100 WBC (Bld)1.0 %NormalProFlower Hospital Comment on above:Performed By: #### 29367-4, 9, PINR, 87982-3, AHP, CMP, THYR, FEPR, CBCA, 94034-6, 49408-8, 1967-11, 2283-12, 2275-4 #### [facility] ([id number]) [address] [facility], [address] [place], [place] [address]Sceqeoxcfdw distribution width (RBC) [Ratio]23.8 %High11.5-15.0 [facility] Hospital - CantonComment on above:Performed By: #### 66345-5, 9, PINR, 20730-3, AHP, CMP, THYR, FEPR, CBCA, 87004-8, 82667-1, 1967-11, 2283-12, 2275- #### [facility] ([id number]) [address] [facility], [address] [place], [place] [address]Ahoplvcdqu (Bld) [Volume fraction]35.2 %Fja27-41FgnSjdizqFlower HospitalComment on above:Performed By: #### 65506-0, 9, PINR, 64012-7, AHP, CMP, THYR, FEPR, CBCA, 49838-0, 12092-5, 1967-11, 8, 2275-4 #### [facility] ([id number]) [address] [facility], [address] [place], [place] [address]Fxuyfbjsbs (Bld) [Mass/Vol]10.9 g/dLLow13.0-17.0Pro[facility] Hospital - CantonComment on above:Performed By: #### 22568-0, 9, PINR, 51841-5, AHP, CMP, THYR, FEPR, CBCA, 75656-4, 01446-4, 1967-11, 2283-12, 2275- #### [facility] ([id number]) [address], [address] [place], [place] [address]IDEWWZMXIPS4+AbnormalNONEProMedCentervilleComment on above:Performed By: #### 72335-0, 2132-01, PINR, 39835-8, AHP, CMP, THYR, FEPR, CBCA, 20929-0, 09873-1, 1967-11, 8, 2275- #### [facility] ([id number]) [address] [facility], [address] [place], [place] [address]Udsqiugalws (Bld) [#/Vol]0.2 10*3/uLLow1.0-3.5Pro[facility] Hospital - CantonComment on above:Performed By: #### 63060-3, 2132-01, PINR, 68206-8, AHP, CMP, THYR, FEPR, CBCA, 35305-7, 16067-1, 1967-11, 2283-12, 2275- #### [facility] ([id number]) [address], [address] [place], [place] [address]Wdhxvmbcgum/100 WBC (Bld)3.0 %NormalProFlower Hospital Comment on above:Performed By: #### 43724-7, 2132-01, PINR, 04208-7, AHP, CMP, THYR, FEPR, CBCA, 46769-5, 56059-9, 1967-, 2283-8, 2276-4 #### [facility] ([id number]) [address] [facility], [address] [place], [place] [address]RRR (RBC) [Entitic mass]22.6 otKji67-15SznTmdpeuMagruder Memorial Hospital Comment on above:Performed By: #### 04379-1, 9, PINR, 49808-4, AHP, CMP, THYR, FEPR, CBCA, 43298-2, 88172-0, 1967-, 2283-8, 2275-4 #### [facility] ([id number]) [address] [place] [address], [address] [place], [place] [address]TLEE (RBC) [Mass/Vol]31.1 g/nFFvm36-71MhtUlspaiMagruder Memorial Hospital Comment on above:Performed By: #### 34572-3, 2132-01, PINR, 13710-8, AHP, CMP, THYR, FEPR, CBCA, 73324-0, 94844-1, 1967-11, 2283-12, 2275- #### [facility] ([id number]) [address] [place] [address], [address] [place], [place] [address]BQG (RBC) [Entitic vol]73 pVRon94-166AttNawkgxMagruder Memorial Hospital Comment on above:Performed By: #### 74063-4, 9, PINR, 79019-5, AHP, CMP, THYR, FEPR, CBCA, 31844-9, 61068-1, 1967-11, 2283-12, 2275-4 #### [facility] ([id number]) [address] [place] [address], [address] [place], [place] [address]Lxlipnltg (Bld) [#/Vol]0.3 10*3/uLNormal0-0.9Mag[facility]uder Memorial HospitalComment on above:Performed By: #### 14376-5, 2132-9, PINR, 75207-2, AHP, CMP, THYR, FEPR, CBCA, 61008-3, 78867-5, 1967-11, 2283-12, 2275- #### [facility] ([id number]) [address], [address] [place], [place] [address]Auowapiiy/100 WBC (Bld)5.2 %NormalMagruder Memorial Hospital Comment on above:Performed By: #### 77175-8, 9, PINR, 73985-2, AHP, CMP, THYR, FEPR, CBCA, 64772-7, 35716-0, 1967-, 2283-12, 2275- #### [facility] ([id number]) [address], [address] [place], [place] [address]Olppezsuqyz/100 WBC (Bld)89.0 %NormalMagruder Memorial Hospital Comment on above:Performed By: #### 99326-9, 9, PINR, 38696-3, AHP, CMP, THYR, FEPR, CBCA, 39465-7, 08508-4, 1967-11, 2283-12, 2275- #### [facility] ([id number]) [address], [address] [place], [place] [address]BJSQJHYRV1+AbnormalNONEProMedica Select Medical Specialty Hospital - CantonComment on above:Performed By: #### 51836-8, 9, PINR, 54282-6, AHP, CMP, THYR, FEPR, CBCA, 58695-9, 03644-3, 1967-11, 2283-12, 2275- #### [facility] ([id number]) [address], [address] [place], [place] [address]Dxabotwn mean volume (Bld) [Entitic vol]8.7 fLNormal7-12 [facility] Hospital - CantonComment on above:Performed By: #### 05577-3, 9, PINR, 49667-5, AHP, CMP, THYR, FEPR, CBCA, 11875-7, 31741-6, 1967-, 2283-8, 2275-4 #### [facility] ([id number]) [address], [address] [place], [place] [address]Oaiufbmsd (Bld) [#/Vol]259 10*3/kTRzpshr897-383KuzDrksex Toledo HospitalComment on above:Performed By: #### 45016-6, 2131-9, PINR, 02458-0, AHP, CMP, THYR, FEPR, CBCA, 41548-7, 13654-1, 1967-, 2283-12, 2275- #### [facility] ([id number]) [address], [address] [place] [address]GRZ COUNT4.84 X10E12/LNormal4.10-5.70[facility] Comment on above:Performed By: #### 79313-9, 2131-9, PINR, 87324-8, AHP, CMP, THYR, FEPR, CBCA, 67520-5, 02632-6, 1967-11, 2283-12, 2275- #### [facility] ([id number]) [address], [address] [place], [place] [address]IMU (Bld) [#/Vol]6.4 10*3/uLNormal4.0-11.0ProFlower HospitalComment on above:Performed By: #### 33080-7, 2131-9, PINR, 71867-9, AHP, CMP, THYR, FEPR, CBCA, 67430-2, 94847-3, 1967-11, 2283-12, 2275-4 #### [facility] ([id number]) [address], [address] [place], [place] [address]CJE auto differentialon [id number] Ql (Bld)2+ AbnormalNONE^NONEProMedica Health SystemBasophils (Bld) [#/Vol]0.1 10*3/uL [facility] HospitalBasophils/100 WBC (Bld)1.8 %[facility] Eosinophils (Bld) [#/Vol]0.1 10*3/uLHolzer HospitalEosinophils/100 WBC (Bld)1 %[facility] HospitalErythrocyte distribution width (RBC) [Ratio]23.8 %High11.5 - 15.0 %[facility] HospitalHematocrit (Bld) [Volume fraction]35.2 %Low39 - 49 %[facility] HospitalHemoglobin (Bld) [Mass/Vol]10.9 g/dLLow13.0 - 17.0 g/dLHolzer HospitalHypochromia Ql (Bld)1+AbnormalNONE^NONE [facility] HospitalInterpretation and review of laboratory resultsAbnormal [facility] HospitalLymphocytes (Bld) [#/Vol]0.2 10*3/uLLowHolzer HospitalLymphocytes/100 WBC (Bld)3 %[facility] HospitalMCH (RBC) [Entitic mass]22.6 pgLow27 - 34 pgPMercy Health West HospitalMCHC (RBC) [Mass/Vol]31.1 g/dL Low32 - 36 g/dLHolzer HospitalMCV (RBC) [Entitic vol]73 fLLow80 - 100 fL [facility] HospitalMonocytes (Bld) [#/Vol]0.3 10*3/uLHolzer Hospital Monocytes/100 WBC (Bld)5.2 %[facility] HospitalNeutrophils (Bld) [#/Vol]5.7 10*3/uLHolzer HospitalNeutrophils/100 WBC (Bld)89 %[facility] HospitalOvalocytes LM Ql (Bld)2+AbnormalNONE^NONEHolzer HospitalPlatelet mean volume (Bld) [Entitic vol]8.7 fL7 - 12 fLPMercy Health West HospitalPlatelets (Bld) [#/Vol]259 10*3/uLSouthwest General Health Center SystemRBC (Bld) [#/Vol]4.84 10*6/uL [facility] HospitalWBC corrected for nucl RBC Auto (Bld) [#/Vol]6.4[facility] Chester CountyCOMPREHENSIVE METABOLIC PANELon 06-07-2024 Albumin [Mass/Vol]2.9 g/dLLow3.2-5.3ProMedCentervilleComment on above: Performed By: #### 81596-2, 2132-01, PINR, 58335-4, AHP, CMP, THYR, FEPR, CBCA, 03433-6, 19536-1, 1967-7, 2283-8, 6-4 #### [facility] ([id number]) [address] [place] [address], [address] [place], [place] [address]AJO [Catalytic activity/Vol]60 U/RFqwcbo66-186BhbUtzpsk [place] HospitalComment on above:Performed By: #### 50707-6, 2132-01, PINR, 45614-4, AHP, CMP, THYR, FEPR, CBCA, 55508-4, 26240-7, 1967-, 8, 2275-4 #### [facility] ([id number]) [address] [place] [address], [address] [place], [place] [address]TOR [Catalytic activity/Vol]21 U/LNormal0-40ProFlower HospitalComment on above:Performed By: #### 37600-7, 2132-01, PINR, 72872-7, AHP, CMP, THYR, FEPR, CBCA, 95188-8, 98955-0, 1967-, 8, 2275-4 #### [facility] ([id number]) [address] [place] [address], [address] [place], [place] [address]Qjias gap [Moles/Vol]11 mmol/LNormal5-15ProFlower HospitalComment on above:Performed By: #### 47644-2, 2132-01, PINR, 53659-0, AHP, CMP, THYR, FEPR, CBCA, 79221-7, 42228-5, 1967-, 2283-8, 2275-4 #### [facility] ([id number]) [address] [facility], [address] [place], [place] [address]UWM [Catalytic activity/Vol]29 U/LNormal0-41ProMediHolzer Medical Center – Jackson HospitalComment on above:Performed By: #### 10730-7, 2132-01, PINR, 35092-1, AHP, CMP, THYR, FEPR, CBCA, 49598-8, 32998-3, 1967-, 2283-8, 2275-4 #### [facility] ([id number]) [address], [address] [place], [place] [address]Gspfkfmpm [Mass/Vol]1.6 mg/dLHigh0.3-1.2ProMedDunlap Memorial Hospital HospitalComment on above:Performed By: #### 58044-7, 2132-01, PINR, 38114-4, AHP, CMP, THYR, FEPR, CBCA, 32064-0, 83410-2, 1967-11, 2283-12, 2275-4 #### [facility] ([id number]) [address] [facility], [address] [place], [place] [address]Wbmlwyr [Mass/Vol]8.6 mg/dLNormal8.5-10.5ProMedDunlap Memorial Hospital HospitalComment on above:Performed By: #### 95107-1, 9, PINR, 29966-4, AHP, CMP, THYR, FEPR, CBCA, 48790-9, 65056-3, 1967-11, 2283-12, 2275-4 #### [facility] ([id number]) [address] [facility], [address] [place], [place] [address]Cuddadnh [Moles/Vol]106 mmol/LCeczzr88-000GriZctgud [place] HospitalComment on above:Performed By: #### 59091-2, 2132-01, PINR, 35082-8, AHP, CMP, THYR, FEPR, CBCA, 56649-4, 23376-0, 1967-11, 8, 2275-08 #### [facility] ([id number]) [address], [address] [place], [place] [address]YC7 [Moles/Vol]27 mmol/MRpuozj31-38IioSqwczuWilson [address] Hospital Comment on above:Performed By: #### 58650-7, 9, PINR, 52640-4, AHP, CMP, THYR, FEPR, CBCA, 96118-5, 51112-7, 1967-11, 2283-12, 2275-08 #### [facility] ([id number]) [address] [facility], [address] [place] [address]Atflmyalvh [Mass/Vol]1.44 mg/dLHigh0.60-1.30ProFlower HospitalComment on above:Result Comment: METHOD TRACEABLE TO IDMS STANDARD Performed By: #### 41472-6, 9, PINR, 62852-1, AHP, CMP, THYR, FEPR, CBCA, 98648-7, 93951-9, 1967-11, 2283-12, 2275-08 #### [facility] ([id number]) [address] [facility], [address] [place] [address]EOG/1.73 sq M.predicted among non-blacks MDRD (S/P/Bld) [Vol rate/Area]53 mL/min/{1.73_m2}Low>59ProFlower HospitalComment on above: Result Comment: Reported eGFR is based on the CKD-EPI 2020 equation that does not use a race coefficient.Performed By: #### 19982-3, 9, PINR, 91550-8, AHP, CMP, THYR, FEPR, CBCA, 31650-7, 56154-6, 1967-11, 2283-12, 2275- #### [facility] ([id number]) [address] [facility] [facility], [address] [place], [place] [address]Ofjcxea [Mass/Vol]91 mg/lWKgxgzj75-16FseTcesrkMagruder Memorial Hospital Comment on above:Performed By: #### 54806-7, 2132-01, PINR, 41971-5, AHP, CMP, THYR, FEPR, CBCA, 03794-3, 24020-2, 1967-11, 2283-12, 2275-4 #### [facility] ([id number]) [address] [facility], [address] [place], [place] [address]Bkmjvuyvo [Moles/Vol]3.3 mmol/LLow3.5-5.0ProFlower HospitalComment on above:Performed By: #### 95621-0, 2132-01, PINR, 13465-8, AHP, CMP, THYR, FEPR, CBCA, 36886-2, , 1967-11, 2283-12, 2275- #### [facility] ([id number]) [address] [facility] [facility], [address] [place], [place] [address]Xjsmnpu [Mass/Vol]5.4 g/dLLow6.0-8.0[facility] Comment on above:Performed By: #### 94928-9, 2132-01, PINR, 12598-1, AHP, CMP, THYR, FEPR, CBCA, 38084-3, 24695-3, 1967-11, 2283-12, 2275-4 #### [facility] ([id number]) [address] [facility] [facility], [address] [place], [place] [address]Cqppkr [Moles/Vol]144 mmol/KNupcru721-618QsfAiopcn [place] HospitalComment on above:Performed By: #### 99013-9, 2132-01, PINR, 59070-0, AHP, CMP, THYR, FEPR, CBCA, 68269-0, 86362-0, 1967-11, 2283-12, 2275-4 #### [facility] ([id number]) [address], [address] [place], [place] [address]Lfcb nitrogen [Mass/Vol]30 mg/dLHigh5-27ProMedica Select Medical Specialty Hospital - CantonComment on above:Performed By: #### 31131-1, 2132-9, PINR, 70855-9, AHP, CMP, THYR, FEPR, CBCA, 00794-3, 49519-7, 1968-7, 2284-8, 2276-4 #### [facility] ([id number]) [address], [address] [place], [place] [address]YT ABDOMEN AND PELVIS WO CONTon 44-61-6937MN ABDOMEN AND PELVIS WO CONTCT ABDOMEN AND [...] by Baldev Hyde MD on 06/07/2024 10:07 [facility] CenterCT [facility]domen and Pelvis WO contraston 48-90-5687NUCYXLXL INFORMATION: Abdominal pain radiating to the back, [...] by Baldev Hyde MD on 06/07/2024 10:07 [facility], Baldev Pride MD - 06/07/2024 CLINICAL INFORMATION: [...] Baldev Hyde MD on 06/07/2024 10:07 AM [facility] PartnersRadiology Study observation (narrative)Emergency Service PartnersCT Abdomen and Pelvis WO contrastOrdered By: Baldev Hyde on 06-07-2024 [employer] Work Phone: CT BRAIN WO CONTon [phone] BRAIN WO CONTCT BRAIN WO CONT CT [...] by Gab Clay MD on 06/07/2024 10:01 [facility] IncCT Head WO contraston 06-07-2024 CT HEAD WITHOUT [...] Gab Clay MD on 06/07/2024 10:[address] [facility] SystemRadiology Study observation (narrative)Holzer HospitalCobalamin (Vitamin B12) [Mass/Vol]on 35-69-3776Gblttzydanccyr and review of laboratory resultsAbnormalAscension St Mary's Hospital SystemComprehensive metabolic panelon 06-07-2024 Albumin [Mass/Vol]2.9 g/dLLow3.2 - 5.3 g/dLProChildren'S Hospital For Rehabilitationca Health SystemALP [Catalytic activity/Vol]60 U/L39 - 130 U/LProMedica Health SystemALT No additional P-5'-P [Catalytic activity/Vol]21 U/L0 - 40 U/LProMedica Health SystemAnion gap [Moles/Vol]11 mmol/L5 - 15 mmol/LProMedica Health SystemAST [Catalytic activity/Vol]29 U/L0 - 41 U/LProMedica Health SystemBilirubin [Mass/Vol]1.6 mg/dLHigh0.3 - 1.2 mg/dLBrattleboro Memorial HospitalMedica Health SystemCalcium [Mass/Vol]8.6 mg/dL8.5 - 10.5 mg/dLMercy Health St. Vincent [facility] Health SystemChloride [Moles/Vol]106 mmol/L98 - 109 mmol/L White HospitaledicMercy Hospital SystemCO2 [Moles/Vol]27 mmol/L22 - 32 mmol/LProMedica Health SystemCreatinine [Mass/Vol]1.44 mg/dLHigh0.60 - 1.30 mg/dLSouthwest General Health Center SystemComment on above:METHOD TRACEABLE TO IDMS STANDARDeGFR (CKD-EPI)non-race lpkxzyoii28Hnn- PINFProMedica Health SystemComment on above: Reported eGFR is based on the CKD-EPI 2020 equation that does not use a race coefficient. Glucose [Mass/Vol]91 mg/dL65 - 99 mg/dLProMemorial Health System Marietta Memorial Hospital SystemPotassium [Moles/Vol]3.3 mmol/LLow3.5 - 5.0 mmol/LProMedica Health SystemProtein [Mass/Vol]5.4 g/dLLow6.0 - 8.0 g/dLProMedisd Health SystemSodium [Moles/Vol]144 mmol/L134 - 146 mmol/LPrCox Bransonica Health SystemUrea nitrogen [Mass/Vol]30 mg/dL High5 - 27 mg/dLHolzer HospitalDRUG SCREEN, URINEon 06-07-2024 AMPHETAMINE/METHAMPNegativeNormalNEGProFlower HospitalComment on above: Result Comment: AMPH/METH screening cut off = 1000 ng/mLPerformed By: #### 65016-0, 9, PINR, 62586-7, AHP, CMP, THYR, FEPR, CBCA, 48051-7, 92007-8, 1967-7, 4-8, 2276-4 #### [facility] ([id number]) [address] [place] [address], [address] [place], [place] [address]QAYCMRLSHCACFhfndameFqxwfpHAACgtDxwcin [place] HospitalComment on above:Result Comment: Barbiturates screening cut off value = 200 ng/mLPerformed By: #### 63456-2, 9, PINR, 90845-5, AHP, CMP, THYR, FEPR, CBCA, 49498-4, 63488-8, 1967-, 2283-8, 2276-4 #### [facility] ([id number]) [address] [place] [address], [address] [place], [place] [address]HWOTHDKFXBIRVFCXbpaubuhMjapyyTSXXnlIxkcxu [place] HospitalComment on above:Result Comment: Benzodiazepines screening cut off value = 200 ng/mL Performed By: #### 42070-7, 9, PINR, 33864-2, AHP, CMP, THYR, FEPR, CBCA, 11173-5, 73085-0, 1967-11, 2283-8, 6-4 #### [facility] ([id number]) [address], [address] [place], [place] [address]OKKMOMBJZVZUAhunvplbZbqdqtgvCFQRicWstrey [place] HospitalComment on above:Result Comment: Confirmation available upon request. Cannabinoids/THC screening cut off value = 50 ng/mLPerformed By: #### 54649-3, 9, PINR, 30521-2, AHP, CMP, THYR, FEPR, CBCA, 62024-0, 41533-6, 1967-, 2283-12, 2275- #### [facility] ([id number]) [address], [address] [place], [place] [address]TRSEIEJ METABOLITENegativeNormalNEGMagruder Memorial Hospital Comment on above:Result Comment: Cocaine screening cut off value = 300 ng/mL Performed By: #### 69093-3, 9, PINR, 13845-9, AHP, CMP, THYR, FEPR, CBCA, 46979-6, 85074-1, 1967-11, 2283-12, 2275- #### [facility] ([id number]) [address], [address] [place], [place] [address]FEXKVJMIpmsmxjgAapcieMUMMzkAnqleu [place] HospitalComment on above:Result Comment: Ecstasy screening cut off value = 500 ng/mL This report is intended for use in clinical monitoring or management of patients.Performed By: #### 29402-1, 2131-9, PINR, 09450-8, AHP, CMP, THYR, FEPR, CBCA, 25446-3, 24303-7, 1967-11, 2283-12, 2275- #### [facility] ([id number]) [address], [address] [place], [place] [address]TMQAROHCPUoqqisocHfrnqnTUDFcoUqiizf Bañuelos HospitalComment on above:Result Comment: Methadone screening cut off value = 300 ng/mL.Performed By: #### 58729-0, 2132-01, PINR, 53157-5, AHP, CMP, THYR, FEPR, CBCA, 47340-2, 27815-8, 1967-7, 2283-8, 2276-4 #### [facility] ([id number]) [address] [facility] [facility] [place], [place] [address]BTBPWXHDheubrzmQjdsbuPVLOlqIivzkt [facility]edo HospitalCombeaumont hospital on above:Result Comment: Opiates screening cut off value = 300 ng/mL NOTE: This test is used for the detection of codeine, hydrocodone (>1000 ng/mL), morphine and hydromorphone (>900 ng/mL) in urine.Performed By: #### 38381-0, 2132-01, PINR, 33848-8, AHP, CMP, THYR, FEPR, CBCA, 63172-5, 44260-3, 1967-, 2283-8, 6-4 #### [facility] ([id number]) [address] [facility] [facility] [facility], [address] [place], [place] [address]UMEGPNZWLUgoxianhHlzbluFHXUpgKbmhwy [facility] HospitalCombeaumont hospital on above:Result Comment: Oxycodone screening cut off value = 300 ng/mL NOTE: This test is used for the detection of oxycodone and oxymorphone in urine.Performed By: #### 31817-5, 2132-01, PINR, 21957-3, AHP, CMP, THYR, FEPR, CBCA, 65799-1, 62894-7, 1967-, 2283-8, 6-4 #### [facility] ([id number]) [address] [facility] [facility], [address] [place], [place] [address]JOPXRVGFTMGERXdvbphydDthrkpUIHMlqIkerwu [facility] HospitalCombeaumont hospital on above:Result Comment: Phencyclidine screening cut off value = 25 ng/mL Performed By: #### 20253-1, 2132-9, PINR, 87249-4, AHP, CMP, THYR, FEPR, CBCA, 24435-2, 13622-2, 1968-7, 2284-8, 2276-4 #### [facility] ([id number]) [address] [place] [address], [address] [place], [place] [address]Tloi Screen, Urineon 58-29-5187Tstuiimpnwmb Screen method >1000 ng/mL Ql (U)NegativeNegative^NegativeProMedica Health [...] Tetrahydrocannabinol Screen method >50 ng/mL Ql (U)PositiveAbnormal Negative^NegativeHolzer HospitalComment on above:Confirmation available upon request. Cannabinoids/THC screening cut off value = 50 ng/mL Holzer HospitalEEGon 58-19-4059Rhnvoa from the original result were not included. [...] or primary neurological disorders. Bertha Oakley MD [employer]ic Verification Engineer Neurology/Neurophysiology IN [employer] MANUALLY TRANSCRIBED RESULTSEEGOrdered By: Bertha Oakley on 75-45-4514DkiEfbmvhHolzer Hospital Work Phone: FERRITINon 63-60-5673Rsneagqf [Mass/Vol]41 ng/mLNormal 24-336ProFlower HospitalComment on above:Performed By: #### 36723-8, 2132-9, PINR, 35429-9, AHP, CMP, THYR, FEPR, CBCA, 87233-4, 82638-4, 1968-7, 2284-8, 2276-4 #### [facility] ([id number]) [address] [facility] [facility], [address] [place], [place] [address]Bpydvnnmti 45-14-8271Uuyumilz [Mass/Vol]41 ng/mL24 - 336 ng/mL Holzer HospitalFerritin [Mass/Vol]on 23-45-7785AcxTfbzdiHolzer Hospital Folateon 14-63-2296Nsmyys [Mass/Vol]22.7 ng/mL5.8 - PINF ng/mLHolzer HospitalComment on above:NEW REFERENCE RANGEFolate [Mass/Vol]on 06-07-2024 Holzer HospitalFOLIC ACID22.7 ng/mLNormal>5.8[facility] Comment on above:Result Comment: NEW REFERENCE RANGEPerformed By: #### 79512-3, 2131-9, PINR, 54109-5, AHP, CMP, THYR, FEPR, CBCA, 98656-2, 18340-5, 1967-, 2283-, 2275- #### [facility] ([id number]) [address] [place] [address], [address] [place], [place] [address]Evmpwdg Glucometer (BldC) [Mass/Vol]on 11-01-7260Tjnscfy [Mass/Vol]86 mg/dL65 - 99 mg/dLLifecare Hospital of Chester County Glucose [Mass/Vol]86 mg/jXNhijxx72-33BztNokdlxMagruder Memorial HospitalHeparin unfractionated Chromogenic method Qn (PPP)on 83-13-8892Cmhakjyiigcyub and review of laboratory resultsAbnormCrozer-Chester Medical CenterANTI XA UFH0.14 IU/mLLow0.30-0.70Magruder Memorial HospitalComment on above:Result Comment: Optimal time for testing is 6 hrs post dosage This test is specific for monitoring patients on UFH, and is not recommended for use with other Anti-Xa medications.Performed By: #### 23491-0, 2-9, PINR, 76255-2, AHP, CMP, THYR, FEPR, CBCA, 20067-1, 12260-1, 1967-11, 2283-12, 2275- #### [facility] ([id number]) [address] [place] [address], [address] [place], [place] [address]Dvyqxwesw panel, acuteon 78-82-1985GKW IgM IA QlNon-Reactive Non-Reactive^Non-ReactiveHolzer HospitalComment on above:NEW TEST METHOD HBV core IgM IA LfJma-HrjxeifjTna-Xyghdsxv^Non-ReactiveHolzer Hospital Comment on above:NEW TEST METHODHBV surface Ag IA QlNon-Reactive Non-Reactive^Non-ReactiveHolzer HospitalComment on above:NEW TEST METHOD HCV Ab IA LoEsb-KyqjbutgCmo-Dwuxowyx^Non-ReactiveHolzer HospitalComment on above:NEW TEST METHOD NOTE If recent infection suspected, recommend repeat testing (>2 months). Bqunyx-ry-bwbycg ratio is <1.00. Holzer HospitalIRON PROFILEon 81-76-0876Kypz [Mass/Vol]16 ug/fTAhh38-248 [facility] Memorial HospitalComment on above:Performed By: #### 27828-1, 2132-01, PINR, 34915-7, AHP, CMP, THYR, FEPR, CBCA, 85340-4, 09100-8, 1967-11, 2283-12, 2275- #### [facility] ([id number]) [address] [facility] [facility] [facility], [address] [place], [place] [address]FVSU BHXIMSH020 ug/zEIuvnmc857-722BcpCrrmnvMagruder Memorial Hospital Comment on above:Performed By: #### 75045-9, 2132-01, PINR, 97881-4, AHP, CMP, THYR, FEPR, CBCA, 29545-0, 15065-1, 1967-11, 2283-12, 2275- #### [facility] ([id number]) [address] [facility] [facility], [address] [place], [place] [address]ZCXQ SATURATION5 % HFDWVCYZVOIgg71-31HxiTimxqp [facility] Comment on above:Performed By: #### 41510-5, 2132-01, PINR, 21860-8, AHP, CMP, THYR, FEPR, CBCA, 69098-1, 34567-3, 1967-11, 2283-12, 2275-4 #### [facility] ([id number]) [address], [address] [place], [place] [address]Vaht and TIBCon 19-13-4155Mxslmubnoegqmk and review of laboratory resultsAbnormalProMemorial Health System Marietta Memorial Hospital SystemIron [Mass/Vol]16 ug/dLLow50 - 212 ug/dLProMemorial Health System Mari[facility] Memorial Hospital SystemIron binding capacity [Mass/Vol]336 ug/dL250 - 425 ug/dLProAkron Children's Hospitaln saturation [Mass fraction]5LowProLicking Memorial HospitalProMemorial Health System Mari[facility] Memorial Hospital SystemMAGNESIUMon 67-65-2511Gjagzvshh [Mass/Vol] 2.7 mg/dLHigh1.8-2.6Mag[facility]uder Memorial HospitalComment on above:Performed By: #### 00849-7, 9, PINR, 10892-6, AHP, CMP, THYR, FEPR, CBCA, 25836-3, 80002-4, 1967-7, 4-8, 2276-4 #### [facility] ([id number]) [address], [address] [place], [place] [address]Arkalnkzd [Mass/Vol]1.5 mg/dLLow1.8-2.6[facility] Comment on above:Performed By: #### 22573-0, 9, PINR, 43698-5, AHP, CMP, THYR, FEPR, CBCA, 40688-5, 35022-6, 1967-, 2283-8, 2276-4 #### [facility] ([id number]) [address], [address] [place], [place] [address] MRCP WITH MRI ABD WO CONTon 05-84-7203ZK MRCP WITH MRI ABD WO CONTMR MRCP [...] by Gab Clay MD on 06/07/2024 8:32 [facility] Abdomen WO contraston 06-07-2024 History: [...] Gab Clay MD on 06/07/2024 8:[address] [facility] HospitalCardiovascular Decisions [facility] HospitalRadiology Study observation (narrative)Holzer HospitalMRCP Abdomen WO contrastOrdered By: Gab Clay on 83-62-3219KmgDxvsck Health System Work Phone: Magnesiumon 10-05-9650Vkagjmtas [Mass/Vol]2.7 mg/dL High1.8 - 2.6 mg/dLGuernsey Memorial HospitalEKOS Corporation [facility] HospitalMagnesium [Mass/Vol]1.5 mg/dLLow1.8 - 2.6 mg/dLProLicking Memorial HospitalNo Panel Informationon 43-38-7115Niktodfeuyddgz and review of laboratory resultsAbnormalAscension St Mary's Hospital SystemInterpretation and review of laboratory resultsAbnormOhioHealth Mansfield HospitalProKaleida HealthPOTASSIUMon 06-07-2024 Potassium [Moles/Vol]3.2 mmol/LLow3.5-5.0Magruder Memorial HospitalComment on above:Performed By: #### 90780-2, 2131-9, PINR, 99186-0, AHP, CMP, THYR, FEPR, CBCA, 80886-2, 85772-3, 1967-11, 2283-12, 2275- #### [facility] ([id number]) [address], [address] [place], [place] [address]WUFYXBU AND INRon 44-56-7135OXK Coag (PPP) [Relative time]1.3 {INR}High0.8-1.1PWilson Street HospitalComment on above:Performed By: #### 93632-2, 2131-9, PINR, 78736-1, AHP, CMP, THYR, FEPR, CBCA, 48191-3, 26173-1, 1967-11, 2283-12, 2275- #### [facility] ([id number]) [address], [address] [place], [place] [address]JT Coag (PPP) [Time]15.[address] Hospital Comment on above:Performed By: #### 90108-0, 2131-9, PINR, 24293-6, AHP, CMP, THYR, FEPR, CBCA, 67994-3, 70213-0, 1967-11, 2283-12, 2275-4 #### [facility] ([id number]) [address], [address] [place], [place] [address]Oubqvketrzg 21-79-2201Ondzvlmug [Moles/Vol]3.2 mmol/LLow3.5 - 5.0 mmol/LProMedica Ascension St. Joseph HospitalProcalcitoninon 14-43-8418Mvrpdmyrdzhmz IA [Mass/Vol]0.27 ng/mLHighNINF - 0.05 ng/mLHolzer HospitalComment on above:NOTE <0.50 ng/mL - Low risk of severe sepsis and/or septic shock. <2.00 ng/mL - Recommend retesting within 6-24 hours. >2.00 ng/mL - High risk of sepsis and/or septic shock. Procalcitonin IA [Mass/Vol]on 84-69-8904Ldnmsdazgvfhpl and review of laboratory resultsAbnormalHolzer HospitalProLicking Memorial HospitalPROCALCITONIN0.27 ng/mLHigh<0.05Magruder Memorial HospitalComment on above:Result Comment: NOTE <0.50 ng/mL - Low risk of severe sepsis and/or septic shock. <2.00 ng/mL - Recommend retesting within 6-24 hours. >2.00 ng/mL - High risk of sepsis and/or septic shock.Performed By: #### 16100- 0, 2132-9, PINR, 99696-4, AHP, CMP, THYR, FEPR, CBCA, 83003-4, 03233-0, 1968-7, 2284-8, 2276-4 #### [facility] ([id number]) [address] [facility], [address] [place], [place] [address]Racjvsu & INRon 01-45-0724BFN Coag (PPP) [Relative time]1.3 {INR}HighHolzer HospitalInterpretation and review of laboratory results AbnormalHolzer HospitalPT Coag (PPP) [Time]15.5 [facility] HospitalTHYROID PROFILEon 80-86-8601Ybzm T4 [Mass/Vol]1.08 ng/dLNormal0.61-1.60 White HospitaledicAultman HospitalComment on above:Performed By: #### 03285-9, 2132-9, PINR, 40003-5, AHP, CMP, THYR, FEPR, CBCA, 06956-5, 35068-5, 1967-, 2283-8, 6-4 #### [facility] ([id number]) [address] [place] [address], [address] [place], [place] [address]QPT8.40 uIU/mLNormal0.49-4.67ProMedica Wayland HospitalComment on above:Performed By: #### 96771-5, 9, PINR, 25995-6, AHP, CMP, THYR, FEPR, CBCA, 93203-0, 36369-9, 1967-, 2283-, 6-4 #### [facility] ([id number]) [address] [place] [address], [address] [place], [place] [address]Ghvrerh profile includes TSH FT4on 20-02-6032Zejv T4 [Mass/Vol] 1.08 ng/dL0.61 - 1.60 ng/dLFrye Regional Medical Center [facility] Qn2.4 m[IU]/LProMedSelect Medical Cleveland Clinic Rehabilitation Hospital, BeachwoodProLicking Memorial HospitalURINALYSISon 05-93-5925Rblxciomc Ql (U) NegativeNormalNEGProPromedica Bay Park Hospital HospitalComment on above:Performed By: #### 74542-6, 9, PINR, 21116-8, AHP, CMP, THYR, FEPR, CBCA, 18778-4, 39717-6, 1967-, 2283-8, 6-4 #### [facility] ([id number]) [address] [place] [address], [address] [place], [place] [address]DLDAO/HGBLargeAbnormalNEGProPromedica Bay Park Hospital HospitalComment on above:Performed By: #### 28681-0, 9, PINR, 07412-1, AHP, CMP, THYR, FEPR, CBCA, 78573-7, 45229-6, 1967-11, 2283-8, 2276-4 #### [facility] ([id number]) [address] [place] [address], [address] [place], [place] [address]Ruyqu (U)YELLOWNormalYELLOWProMedica Select Medical Specialty Hospital - CantonComment on above:Performed By: #### 69097-2, 2131-9, PINR, 00253-6, AHP, CMP, THYR, FEPR, CBCA, 47071-4, 03436-2, 1967-11, 8, 2275-4 #### [facility] ([id number]) [address], [address] [place], [place] [address]Kjarowp Ql (U)NegativeNormalNEGProMedica Wayland HospitalComment on above:Performed By: #### 42813-3, 2131-9, PINR, 52555-0, AHP, CMP, THYR, FEPR, CBCA, 35750-9, 70696-3, 1967-11, 2283-12, 2275- #### [facility] ([id number]) [address] [facility] [facility] [facility], [address] [place], [place] [address]Htgdtnj Ql (U)TraceAbnormalNEGProPromedica Bay Park Hospital HospitalComment on above:Performed By: #### 62075-4, 2131-9, PINR, 19009-6, AHP, CMP, THYR, FEPR, CBCA, 81223-7, 59072-0, 1967-11, 2283-12, 2275- #### [facility] ([id number]) [address] [facility], [address] [place], [place] [address]Lmdyzxvoh esterase Test strip Ql (U)NegativeNormalNEGProChildren'S Hospital For Rehabilitationca Wayland HospitalComment on above:Performed By: #### 65453-1, 2131-9, PINR, 31502- 9, AHP, CMP, THYR, FEPR, CBCA, 29455-4, 54363-5, 1967-11, 2283-12, 2275-4 #### [facility] ([id number]) [address], [address] [place], [place] [address]GHNJOSKCQPDISScftwrusWTPOSkxWsfdvh [facility] - CantonComment on above:Performed By: #### 53061-2, 9, PINR, 67632-5, AHP, CMP, THYR, FEPR, CBCA, 38745-9, 90763-8, 1967-11, 2283-12, 2275-08 #### [facility] ([id number]) [address], [address] [place], [place] [address]Xgbpxgp Ql (U)NegativeNormalNEGProFlower HospitalComment on above:Performed By: #### 58570-0, 9, PINR, 62606-9, AHP, CMP, THYR, FEPR, CBCA, 37444-4, 68946-5, 1967-11, 2283-12, 2275- #### [facility] ([id number]) [address], [address] [place], [place] [address]qW (U)6.5 [pH]Normal5.0-8.5PWilson [address] HospitalComment on above:Performed By: #### 05138-2, 2132-01, PINR, 45833-2, AHP, CMP, THYR, FEPR, CBCA, 63063-5, 11496-7, 1967-11, 2283-12, 2275-08 #### [facility] ([id number]) [address], [address] [place], [place] [address]Gupdxlc Ql (U)30 mg/dLAbnormalNEGProFlower Hospital Comment on above:Performed By: #### 71055-6, 9, PINR, 12750-2, AHP, CMP, THYR, FEPR, CBCA, 08709-5, 10968-9, 1967-11, 2283-12, 2275-08 #### [facility] ([id number]) [address], [address] [place], [place] [address]Y.B.DEVKO438 /hpfHigh0-5PWilson Street HospitalComment on above:Performed By: #### 21138-4, 2132-9, PINR, 77424-5, AHP, CMP, THYR, FEPR, CBCA, 44506-4, 61459-7, 1967-11, 2283-12, 2275- #### [facility] ([id number]) [address], [address] [place], [place] [address]Hvrbmhbq gravity (U) [Rel density]1.158Gszznm7.003-1.035 [facility] hospital on above:Performed By: #### 84325-0, 9, PINR, 95180-7, AHP, CMP, THYR, FEPR, CBCA, 49646-4, 15408-4, 1967-11, 2283-12, 2275-08 #### [facility] ([id number]) [address] [facility], [address] [place], [place] [address]FCJQIGXGKSFJQVFhfnvpMKFNIQnaBxiexw [facility] - CantonComment on above:Performed By: #### 83899-5, 2132-01, PINR, 83376-9, AHP, CMP, THYR, FEPR, CBCA, 03887-4, 61655-4, 1967-11, 2283-12, 2275-08 #### [facility] ([id number]) [address], [address] [place], [place] [address]Dhexbnpntojb (U) [Mass/Vol]mg/dLNormal<1.1PWilson Street HospitalCombeaumont hospital on above:Performed By: #### 73221-9, 9, PINR, 36335-7, AHP, CMP, THYR, FEPR, CBCA, 96339-6, 78303-7, 1967-11, 2283-12, 2275-08 #### [facility] ([id number]) [address], [address] [place], [place] [address]T.B.CELLS2 /hpfNormal0-5PWilson [address] HospitalCombeaumont hospital on above:Performed By: #### 74838-9, 2132-9, PINR, 86733-7, AHP, CMP, THYR, FEPR, CBCA, 52048-3, 78393-3, 1967-11, 8, 2275- #### [facility] [facility] ([id number]) [address], [address] [place], [place] [address]DMZDL CULTUREon 96-88-9394Exgvdpki identified Cx Nom (U)CULTURE RESULTS NO GROWTH AT <1000 CFU/mLNormalMagruder Memorial HospitalComment on above: Performed By: #### 18344-1, 9, PINR, 04378-4, AHP, CMP, THYR, FEPR, CBCA, 75621-3, 55500-1, 1967-11, 2283-12, 2275-08 #### [facility] ([id number]) [address], [address] [place], [place] [address]Ntbvkcnrvxhy 67-75-4472Yvcvnvjwb Ql (U)NegativeNegative^Negative [facility] Hospitaledica Health SystemColor (U)YELLOWYELLOW^YELLOWMercy Health St. [facility] Glucose (U) [Mass/Vol]NegativeNegative^Negative mg/dLSouthwest General Health Center System Hemoglobin Auto test strip Ql (U)LargeAbnormalNegative^NegativeGuernsey Memorial Hospitalca Health SystemInterpretation and review of laboratory resultsAbnormalMercy Health St. [facility] Health SystemKetones (U) [Mass/Vol]TraceAbnormalNegative^Negative mg/dLSouthwest General Health Center SystemLeukocyte esterase Auto test strip Ql (U)NegativeNegative^Negative [facility] SystemMucus Ql (Urine sed)PRESENTAbnormalNONE^NONEMercy Health St. [facility] Health SystemNitrite Auto test strip Ql (U)NegativeNegative^NegativeBrattleboro Memorial HospitalMedica Health SystempH (U)6.5 [pH]5.0 - 8.5PWillis-Knighton [facility] Health SystemProtein (U) [Mass/Vol]30 mg/dLAbnormalNegative^NegativeSouthwest General Health Center SystemRBC Auto (Urine sed) [#/Area]158HighMercy Health St. [facility] Health SystemSpecific gravity Refractometry automated (U) [Rel density]1.0111.003 - 1.035Holzer HospitalTurbidity Ql (U)CLEARCLEAR^CLEARHolzer HospitalUrobilinogen Qn (U)NINCox MonettWBC Auto (Urine sed) [#/Area]2PMercy Fitzgerald HospitalVITAMIN B12on 16-25-9163Rtpecwalu (Vitamin B12) [Mass/Vol]pg/mLHigh 180-914PWilson Street HospitalComment on above:Performed By: #### 60586-9, 2131-9, PINR, 19857-8, AHP, CMP, THYR, FEPR, CBCA, 89293-8, 83810-8, 1967-, 2283-12, 2275-08 #### [facility] ([id number]) [address], [address] [place], [place] [address]Abtjptw B12on 00-28-9886Yxeqfqgsc (Vitamin B12) [Mass/Vol]pg/mL Dbik562 - 914 pg/mLHolzer HospitalaPTT Coag (PPP) [Time]on 06-07-2024 Interpretation and review of laboratory resultsAbnormalHolzer Hospital ProMKettering Health MiamisburgaPTT Coag (Bld) [Time]52 sNzgs76-92NjpBmbznpMagruder Memorial HospitalComment on above:Performed By: #### 56234-5, 9, PINR, 65756-9, AHP, CMP, THYR, FEPR, CBCA, 17141-6, 28717-1, 1967-11, 2283-12, 2275-08 #### [facility] ([id number]) [address], [address] [place], [place] [address]uWFS Coag (Bld) [Time]37 eBlhbzw37-54RwrZcfbxlMagruder Memorial Hospital Comment on above:Performed By: #### 46502-4, 2131-9, PINR, 77420-6, AHP, CMP, THYR, FEPR, CBCA, 57555-3, 45639-4, 1967-11, 2283-12, 2275- #### [facility] ([id number]) [address], [address] [place], [place] [address]EQ EXT VENOUS REFLUX MAUDE LMTDon 32-57-3262J[address] [address] Vein Report Signed Patient: JOHNATHAN RODNEY MR#: [id number] : 1955 Acct:[id number] Age/Sex: 67 / M ADM Date: 07/13/23 Loc: VC Attending Dr: Shaikh Larry Thompson Ordering Physician: Shaikh Jay Juarez Date of Service: 07/13/23 Procedure(s): [facility] EXT Venous Reflux MAUDE LMTD Accession Number(s): [id number] cc: Shaikh Jay Juarez Patient Name: JOHNATHAN RODNEY MR#: [id number] : 1955 Exam Date: 07/13/2023 Ordering Doctor: [...] visualized throughout SSV. Compressibility: Normal Flow: Normal Electrolysist: No perforators visualized. Tech Note: Thrombus visualized in SSV. No patent varicose veins visualized. CONCLUSION: 1. No appreciable abnormal vein dilation or reflux within the lower extremities. Dictated by: Brett Grier M.D. on 07/13/2023 at 14:12 Approved by: Brett Grier M.D. on 07/13/2023 at 14:28 Dictated By: Brett Grier M.D. Signed By: 07/13/23 1430 DD/ 1429 TD/TT: Paralegal Supervisor:TBHRadiology, Radiologist, MD - 07/13/2023 [place] [address] Vein Report Signed Patient: JOHNATHAN RODNEY MR#: [id number] : 1955 Acct:[id number] Age/Sex: 67 / M ADM Date: 07/13/23 Loc: VC Attending Dr: Shaikh Larry Thompson Ordering Physician: Shaikh Jay Juarez Date of Service: 07/13/23 Procedure(s): VC EXT Venous Reflux MAUDE LMTD Accession Number(s): [id number] cc: Shaikh Jay Juarez Patient Name: JOHNATHAN RODNEY MR#: [id number] : 1955 Exam Date: 07/13/2023 Ordering Doctor: [...] visualized throughout SSV. Compressibility: Normal Flow: Normal Electrolysist: No perforators visualized. Tech Note: Thrombus visualized in SSV. No patent varicose veins visualized. CONCLUSION: 1. No appreciable abnormal vein dilation or reflux within the lower extremities. Dictated by: Brett Grier M.D. on 07/13/2023 at 14:12 Approved by: Brett Grier M.D. on 07/13/2023 at 14:28 Dictated By: Brett Grier M.D. Signed By: 07/13/23 1430 DD/ 1429 TD/TT: Paralegal Supervisor: [facility] HospitalRadiology Study observation (narrative)[facility] HospitalVC EXT VENOUS REFLUX MAUDE LMTDOrdered By: Radiologist Radiology on 64-80-5625WIKGSac-Osage Hospital Work Phone: [facility] [phone], [place] [address] Vein Report Signed Patient: JOHNATHAN RODNEY MR#: [id number] : 1955 Acct:[id number] Age/Sex: 67 / M ADM Date: 07/13/23 Loc: Attending Dr: Shaikh Larry Thompson Ordering Physician: Shaikh Jay Juarez Date of Service: 07/13/23 Procedure(s): [facility] Accession Number(s): [id number] cc: Shaikh Jay Juarez Patient Name: JOHNATHAN RODNEY MR#: [id number] : 1955 Exam Date: 07/13/2023 Ordering Doctor: SHAIKH Ember JUAREZ . RADIOLOGY REPORT PROCEDURE: [facility] - OFFICE VISIT INITIAL COMPARISON: [...] Signed By: 07/13/23 1437 DD/ 1436 TD/TT: Paralegal Supervisor:TBHRadiology, Radiologist, - 07/13/2023 [place] [address] Vein Report Signed Patient: JOHNATHAN RODNEY MR#: [id number] : 1955 Acct:[id number] Age/Sex: 67 / M ADM Date: 07/13/23 Loc: VC Attending Dr: Shaikh Larry Thompson Ordering Physician: Shaikh Jay Juarez Date of Service: 07/13/23 Procedure(s): [facility] Facility EST Comprehensive Accession Number(s): [id number] cc: Shaikh Jay Juarez Patient Name: JOHNATHAN RODNEY MR#: [id number] : 1955 Exam Date: 07/13/2023 Ordering Doctor: [...] Signed By: 07/13/23 1437 DD/ 35 TD/TT: Paralegal Supervisor: [facility] HospitalRadiology Study observation (narrative)[facility] FACILITY EST COMPREHENSIVEOrdered By: Radiologist Radiology on 19-14-8928GOOBSac-Osage Hospital Work Phone: aLL CBC WITH AUTO DIFFon 80-75-9096JJEOYRJKS ABSOLUTE AUTO0.1NOMS HealthcareBasophils/100 WBC (Bld)1.4 %0.2 - 2.0 %[facility] Eosinophils/100 WBC (Bld)1.6 %0.9 - 7.0 %[facility] HospitalErythrocyte distribution width (RBC) [Ratio]19.9 %High11.0 - 15.0 %[facility] HospitalHematocrit (Bld) [Volume fraction]39.1 %Low42.0 - 54.0 %[facility] HospitalHemoglobin (Bld) [Mass/Vol]11.6 g/dLLow14.0 - 18.0 g/dLSac-Osage HospitalIMMATURE GRANULOCYTES ABS AUTO0.02NOSaint Luke's Health SystemImmature granulocytes/100 WBC (Bld)0.2 %0.0 - 0.5 %[facility] HospitalInterpretation and review of laboratory resultsAbnormalSac-[facility] Hospital LYMPHOCYTES ABSOLUTE AUTO1.5NOSaint Luke's Health SystemLymphocytes/100 WBC (Bld)16.6 %Low 20.5 - 60.0 %[facility] CenterH (RBC) [Entitic mass]23.7 pgLow25.9 - 34.0 pgNOCapital Region Medical CenterHC (RBC) [Mass/Vol]29.7 g/dLLow29.9 - 35.2 g/dLAudrain Medical CenterV (RBC) [Entitic vol]79.8 fLLow80.0 - 94.0 fLSac-Osage HospitalMONOCYTES ABSOLUTE AUTO0.6NOMS HealthcareMonocytes/100 WBC (Bld)6.6 %1.7 - 12.0 %[facility] Healthcare NEUTROPHILS ABSOLUTE AUTO6.5NOMS HealthcareNeutrophils/100 WBC (Bld)73.6 %43.0 - 75.0 %[facility] HealthcarePlatelet mean volume (Bld) [Entitic vol]9.2 fLLow9.5 - 13.5 fLNOSaint Luke's Health SystemTBH EO #0.1NOMS HealthcareTBH [id number] [facility] Anderson HospitalTBH RBC4.90 NOMS [facility] Anderson HospitalTB WBC8.8NOCT HealthcareCLINISYNCNOMS HealthcareCULTURE URINEon 40-91-6407NWXPTPG URINEIsolate 1 Escherichia coli >100,000 cfu/ml of [...] <=16 S F Trimethoprim/Sulfamethoxazole <=20 S FNormalThe [facility] At SouthwoodsComment on above:Performed By: #### URCX #### [facility] [address] [address] Rahul KarenCARDIAC LEONOR ADMITon 39-10-8819DW [Catalytic activity/Vol]116 U/L Ewtbma83-046Mmw [facility] SouthwoodsComment on above:Performed By: #### LIVER, BMP, CMADM, LIPA #### [facility] [address] [place], [place] [address] Rahul KarenCK.MB [Mass/Vol]1.36 ng/mLNormal<=2.37The [facility] SouthwoodsComment on above:Performed By: #### LIVER, BMP, CMADM, LIPA #### [facility] [address] [place], [place] [address] Rahul KarenINR Coag (Bld) [Relative time]SEE BELOWNormalThWood County Hospital Comment on above:Result Comment: <0.034 ng/ml NEGATIVE 0.034-0.119 INDETERMINATE 0.120 AMI CUT OFFPerformed By: #### LIVER, BMP, CMADM, LIPA #### [facility] [address] [place] [address] Rahul UybotEZD789.0 ng/mLNormal<=121.0The [facility] SouthwoodsComment on above: Performed By: #### LIVER, BMP, CMADM, LIPA #### [facility] [address] [place] [address] Rahul KarenTROP<0.017Normal<=0.034The [facility] SouthwoodsComment on above: Performed By: #### LIVER, BMP, CMADM, LIPA #### [facility] [address] [place] [address] Rahul KarenCBC AUTO DIFFon 38-03-5941Joqjwvclc (Bld) [#/Vol]0.1 103/ulNormal 0.0-0.1The [facility] SouthwoodsComment on above:Performed By: #### CBC #### [facility] [address] [place] [address] Rahul KarenBasophils/100 WBC (Bld)0.7 %Normal0.2-2.0The [facility] Comment on above:Performed By: #### CBC #### [facility] [address] [place] [address] Rahul KarenEosinophils (Bld) [#/Vol]0.0 103/ulNormal0.0-0.7The [facility] SouthwoodsComment on above:Performed By: #### CBC #### [facility] [address] [place] [address] Rahul KarenEosinophils/100 WBC (Bld)0.2 %Critically low0.9-7.0The [facility] SouthwoodsComment on above:Performed By: #### CBC #### [facility] [address] [place] [address] Rahul KarenErythrocyte distribution width (RBC) [Ratio]14.8 %Nxagkt87.0-15.0The [facility] SouthwoodsComment on above:Performed By: #### CBC #### [facility] [address] [place] [address] Rahul KarenHematocrit (Bld) [Volume fraction]52.1 %Codkzh65.0-54.0The [facility] SouthwoodsComment on above:Performed By: #### CBC #### [facility] [address] [place] [address] Rahul KarenHemoglobin (Bld) [Mass/Vol]17.3 g/kGDsyywa08.0-18.0The [facility] SouthwoodsComment on above:Performed By: #### CBC #### [facility] [address] [place] [address] Rahul KarenIG #0.10 10e3/ulCritically high0.00-0.03The [facility] SouthwoodsComment on above:Performed By: #### CBC #### [facility] [address] [place] [address] Rahul KarenIG %0.6 %Critically high0.0-0.5The [facility] SouthwoodsComment on above:Performed By: #### CBC #### [facility] [address] [place] [address] Rahul KarenLymphocytes (Bld) [#/Vol]1.9 103/ulNormal1.2-3.8The [facility] SouthwoodsComment on above:Performed By: #### CBC #### [facility] [address] [place] [address] Rahul KarenLymphocytes/100 WBC (Bld)11.5 %Critically low20.5-60.0The [facility] SouthwoodsComment on above:Performed By: #### CBC #### [facility] [address] [place] [address] Rahul KarenMANUAL DIFF REQNONormalThe [facility] SouthwoodsComment on above: Performed By: #### CBC #### [facility] [address] [place] [address] Rahul KarenMCH (RBC) [Entitic mass]30.0 eaEzllwz13.9-34.0The [facility] Comment on above:Performed By: #### CBC #### [facility] [address] [place] [address] Rahul KarenMCHC (RBC) [Mass/Vol]33.2 g/vQZrofcc33.9-35.2The [facility] Comment on above:Performed By: #### CBC #### [facility] [address] [place] [address] Rahul KarenMCV (RBC) [Entitic vol]90.5 mLDnvdes93.0-94.0The [facility] Comment on above:Performed By: #### CBC #### [facility] [address] [place] [address] Rahul KarenMonocytes (Bld) [#/Vol]1.2 103/ulCritically high0.3-0.8The [facility] SouthwoodsComment on above:Performed By: #### CBC #### [facility] [address] [place] [address] Rahul KarenMonocytes/100 WBC (Bld)7.0 %Normal1.7-12.0The [facility] Comment on above:Performed By: #### CBC #### [facility] [address] [place] [address] Rahul KarenNeutrophils (Bld) [#/Vol]13.3 103/ulCritically high1.4-6.5The [facility] SouthwoodsComment on above:Performed By: #### CBC #### [facility] [address] [place] [address] Rahul KarenNeutrophils/100 WBC (Bld)80.0 %Critically high43.0-75.0The [facility] SouthwoodsComment on above:Performed By: #### CBC #### [facility] [address] [place] [address] Rahul KarenPlatelet mean volume (Bld) [Entitic vol]9.9 fLNormal9.5-13.5The [facility] SouthwoodsComment on above:Performed By: #### CBC #### [facility] [address] [place] [address] Rahul KarenPlatelets (Bld) [#/Vol]366 103/jwBqhyxb660-717Evu [facility] Comment on above:Performed By: #### CBC #### [facility] [address] [place] [address] Rahul KarenRBC (Bld) [#/Vol]5.76 106/ulNormal4.70-6.10The [facility] Comment on above:Performed By: #### CBC #### [facility] [address] [place] [address] Rahul KarenWBC (Bld) [#/Vol]16.6 103/ulCritically high4.0-11.0The [facility] SouthwoodsComment on above:Performed By: #### CBC #### [facility] [address] [place] [address] Rahul KarenER URINE PROFILEon 79-06-0576Seyoietga [Mass/Vol]MODERATENormal NEGATIVEThe [facility] SouthwoodsComment on above:Performed By: #### JANNY SINGLETON #### [facility] [address] [place] [address] Rahul KarenBLOODLARGENormalNEGATIVEKettering Health DaytonComment on above: Performed By: #### JANNY SINGLETON #### [facility] [address] [place] [address] Rahul KarenClarity (U)CLEARNormalThe [facility] SouthwoodsComment on above: Performed By: #### JANNY SINGLETON #### [facility] [address] [place] [address] Rahul KarenColor (U)DK. ORANGENormalYELLOWThe [facility] SouthwoodsComment on above:Performed By: #### JANNY SINGLETON #### [facility] [address] [place] [address] Rahul KarenERUAHDA micrscopic examination will be performed if indicated.Normal The [facility] SouthwoodsComment on above:Performed By: #### JANNY SINGLETON #### [facility] [address] [place] [address] Rahul KarenGlucose [Mass/Vol]NegativeNormalNEGATIVETrihealth Good Samaritan Hospital HospitalComment on above:Performed By: #### JANNY SINGLETON #### [facility] [address] [place] [address] Rahul KarenKetones Ql (U)TRACENormalNEGATIVETrihealth Good Samaritan Hospital HospitalComment on above:Performed By: #### JANNY SINGLETON #### [facility] [address] [place] [address] Rahul KarenNitrite Ql (U)PositiveNormalNEGATIVETrihealth Good Samaritan Hospital HospitalComment on above:Performed By: #### JANNY SINGLETON #### [facility] [address] [place] [address] Rahul KarenpH (Bld)6.3Wehwgx9-4XcnKettering Health DaytonComment on above:Performed By: #### JANNY SINGLETON #### [facility] [address] [place] [address] Rahul KarenProtein (U) [Mass/Vol]mg/dLNormChildren's Hospital for Rehabilitation HospitalComment on above:Performed By: #### JANNY SINGLETON #### [facility] [address] [place] [address] Rahul KarenSPEC GRAVITY1.866Xdiwgp3.005-<=1.025Kettering Health DaytonComment on above:Performed By: #### JANNY SINGLETON #### [facility] [address] [place] [address] Rahul KarenUR MICRO INDINDICATEDNoGuernsey Memorial HospitalComment on above: Performed By: #### JANNY SINGLETON #### [facility] [address] [place] [address] Rahul KarenUrobilinogen Qn (U)2.0 EU/dlNoGuernsey Memorial HospitalComment on above:Performed By: #### JANNY SINGLETON #### [facility] [address] [place] [address] Rahul KarenWBC (Bld) [#/Vol]SMALLNormalNEGATIVEThe [facility] SouthwoodsComment on above:Performed By: #### ERURJAMESRO #### [facility] [address] [place] [address] Rahul KarenLIPASEon 79-92-9864Lmvqjj [Catalytic activity/Vol]160.0 U/LNormal 23.0-300.0The [facility] SouthwoodsComment on above:Performed By: #### LIVER, BMP, CMADM, LIPA #### [facility] [address] [place] [address] Rahul KarenLIVER PROFILEon 85-76-5477Iybdhyr [Mass/Vol]3.8 g/dLNormal3.5-5.0The [facility] SouthwoodsComment on above:Performed By: #### LIVER, BMP, CMADM, LIPA #### [facility] [address] [place] [address] Rahul KarenAlbumin/Globulin [Mass ratio]0.7 {ratio}NormalKettering Health Dayton Comment on above:Performed By: #### LIVER, BMP, CMADM, LIPA #### [facility] [address] [place] [address] Rahul KarenALP [Catalytic activity/Vol]84 U/GDcnyba56-105Iun [facility] Comment on above:Performed By: #### LIVER, BMP, CMADM, LIPA #### [facility] [address] [place] [address] Rahul KarenALT [Catalytic activity/Vol]51 U/GBcswgk40-69Osp [facility] Comment on above:Performed By: #### LIVER, BMP, CMADM, LIPA #### [facility] [address] [place] [address] Rahul KarenAST [Catalytic activity/Vol]22 U/NFdovhg50-63Wjh [facility] Comment on above:Performed By: #### LIVER, BMP, CMADM, LIPA #### [facility] [address] [place] [address] Rahul KarenBILI, CONJUGATED0.3 mg/dLNormal0.0-0.3The [facility] SouthwoodsComment on above:Performed By: #### LIVER, BMP, CMADM, LIPA #### [facility] [address] [address] Rahul KarenBilirubin Ql (U)1.2 mg/dLNormal0.2-1.3The [facility] SouthwoodsComment on above:Performed By: #### LIVER, BMP, CMADM, LIPA #### [facility] [address] [address] Rahul KarenGlobulin (S) [Mass/Vol]5.3 g/dLNormalThe [facility] SouthwoodsComment on above:Performed By: #### LIVER, BMP, CMADM, LIPA #### [facility] [address] [place] [address] Rahul KarenProtein [Mass/Vol]9.1 g/dLCritically high6.1-8.2The [facility] SouthwoodsComment on above:Performed By: #### LIVER, BMP, CMADM, LIPA #### [facility] [address] [place] [address] Rahul KarenPROF CHEM 8 (BAS METB)on 37-66-9899Afxvh gap [Moles/Vol]13.0 mmol/L NormalThe [facility]tering Health Main Campusment on above:Performed By: #### LIVER, BMP, CMADM, LIPA #### [facility] [address] [place] [address] Rahul KarenCalcium [Mass/Vol]8.5 mg/dLNormal8.4-10.2The [facility] Comment on above:Performed By: #### LIVER, BMP, CMADM, LIPA #### [facility] [address] [place] [address] Rahul KarenChloride [Moles/Vol]96 mmol/LCritically otj21-693Ygp [facility] Campusment on above:Performed By: #### LIVER, BMP, CMADM, LIPA #### [facility] [address] [place] [address] Rahul KarenCO2 [Moles/Vol]31.0 mmol/LCritically high22.0-30.0The [facility] Campusment on above:Performed By: #### LIVER, BMP, CMADM, LIPA #### [facility] [address] [place] [address] Rahul KarenCreatinine [Mass/Vol]1.53 mg/dLCritically high0.66-1.25The [facility] SouthwoodsComment on above:Performed By: #### LIVER, BMP, CMADM, LIPA #### [facility] [address] [place] [address] Rahul KarenEGFR-AF WMFKFCMI43 mL/min/1.10f2Ninyfhfprq low>=60The [facility] SouthwoodsComment on above:Performed By: #### LIVER, BMP, CMADM, LIPA #### [facility] [address] [place] [address] Rahul KarenEGFR-NON AF TJRNIUYX67 mL/min/1.15y6Etwpvgwlyd low>=60The [facility] SouthwoodsComment on above:Performed By: #### LIVER, BMP, CMADM, LIPA #### [facility] [address] [place] [address] Rahul KarenGlucose [Mass/Vol]135 mg/dLCritically vcrg09-219Nwi [facility] SouthwoodsComment on above:Performed By: #### LIVER, BMP, CMADM, LIPA #### [facility] [address] [place] [address] Rahul KarenPotassium [Moles/Vol]3.0 mmol/LCritically low3.4-5.0The [facility] Campusment on above:Performed By: #### LIVER, BMP, CMADM, LIPA #### [facility] [address] [place] [address] Rahul KarenSodium [Moles/Vol]137 mmol/UYfgznp443-204Rxi [facility] Comment on above:Performed By: #### LIVER, BMP, CMADM, LIPA #### [facility] [address] [place] [address] Rahul KarenUrea nitrogen [Mass/Vol]14.0 mg/dLNormal9.0-20.0The [facility] HospitalComment on above:Performed By: #### LIVER, BMP, CMADM, LIPA #### [facility] [address] [address] Rahul KarenUrea nitrogen/Creatinine [Mass ratio]9.2 mg/mgNoCherrington Hospital on above:Performed By: #### LIVER, BMP, CMADM, LIPA #### [facility] [address] [address] Rahul KarenPROTIMEon 09-40-8037MMO Coag (PPP) [Relative time]1.14 {INR}Normal The [facility] on above:Performed By: #### PT, PTT #### [facility] [address] [place] [address] Rahul KarenPT Coag (PPP) [Time]PLEASE NOTE: NORMAL RANGE CHANGE 01-23-2014 DUE TO REAGENT LOT CHANGENoCherrington Hospital on above:Performed By: #### PT, PTT #### [facility] [address] [place] [address] Rahul KarenPT Coag (PPP) [Time]11.8 sCritically high9.0-11.6The [facility] on above:Performed By: #### PT, PTT #### [facility] [address] [place] [address] Rahul KarenPT Coag (PPP) [Time]SEE BELOWNoCherrington Hospital on above:Result Comment: DESIRED INR: 2.0 - 3.0 CONDITIONS NOT LISTED BELOW 2.5 - 3.5 FOR PROSTHETIC HEART VALVE REPLACEMENT 2.5 - 3.5 RECURRENT THROMBOSIS Performed By: #### PT, PTT #### [facility] [address] [place] [address] Rahul KarenPTTon 56-59-6352qNSC Coag (Bld) [Time]35.0 xGamtjj28.3-36.2[facility] on above:Performed By: #### PT, PTT #### [facility] [address] [place] [address] Rahul KarenaPTT Coag (Bld) [Time]PLEASE NOTE: NORMAL RANGE CHANGE 04-01-2015 DUE TO REAGENT LOT CHANGEOur Lady of Mercy HospitalComment on above:Performed By: #### PT, PTT #### [facility] [address] [place] [address] Rahul KarenURINE MICROSCOPIC ONLYon 67-54-3854Jngsgzur LM.HPF (Urine sed) [#/Area]MODERATENormalNONE SEENKettering Health DaytonComment on above:Performed By: #### JANNY SINGLETON #### [facility] [address] [place] [address] Rahul KarenCASTNONE SEENWaterlooNONE [facility]Com[facility] on above: Performed By: #### JANNY SINGLETON #### [facility] [address] [place] [address] Rahul KarenCrystals LM Nom (Urine sed)NONE SEENrmalNONE SEENKettering Health DaytonComment on above:Performed By: #### JAMES SINGLETONRO #### [facility] [address] [place] [address] Rahul KarenCULTUREINDICATEDOur Lady of Mercy HospitalComment on above: Performed By: #### JANNY SINGLETON #### [facility] [address] [place] [address] Rahul KarenEpithelial cells LM.HPF (Urine sed) [#/Area]RAREOur Lady of Mercy HospitalCombeaumont hospital on above:Performed By: #### JAMES SINGLETONRO #### [facility] [address] [place] [address] Rahul KarenMUCOUSNONE SEENNormalNONE [facility] CenterCombeaumont hospital on above: Performed By: #### JAMES SINGLETONRO #### [facility] [address] [place] [address] Rahul KarenRBC (U) [#/Vol]44-04Nkguee0-1BvtKettering Health DaytonComment on above: Performed By: #### JAMES SINGLETONRO #### [facility] [address] [place] [address] Rahul NolanWBC (Bld) [#/Vol]>100NormalNONE SEENThe [facility]Comment on above:Performed By: #### JANNY SINGLETON #### [facility] [address] [id number] Rahul Nolan Vital Signs Date TimeVital SignValuePerforming QdjdkoizwZqbvddbs92-92-8018 09:15-0500Blood Pressure LocationJENNIFER CHARLINE [facility]02-18-2025 09:15-0500Body bmylnfxdpxs38.6 [degF]KIKIGERARDO OLIVIER [facility]02-18-2025 09:15-0500Diastolic blood mm[Hg]KIKI CHARLINE [facility]02-18-2025 09:15-0500Heart rate70 /minJENNIFER CHARLINE [facility]02-18-2025 09:15-0500Respiratory rate16 /minJENNIFER CHARLINE [facility]02-18-2025 09:15-0500Systolic blood mm[Hg]KIKI OLIVIER [facility]02-05-2025 11:46-0500Body tinzjwxxjsb61.49 [degF]Tabatha León MD Work Phone: [facility]02-05-2025 11:46-0500Diastolic blood tgdopwpr39 mm[Hg]Tabatha León MD Work Phone: [facility]02-05-2025 11:46-0500Heart rate 82 /minFrcha León MD Work Phone: [facility]02-05-2025 11:46-0500 Respiratory rate16 /minTabatha León MD Work Phone: [facility]-05-2025 11:46-1201LsP2% (BldA) [Mass fraction]100 %Tabatha León MD Work Phone: [facility]02-05-2025 11:46-0500Systolic blood lfspeonu197 mm[Hg]Tabatha León MD Work Phone: [facility]02-03-2025 04:40-0500Body mass index (BMI) [Ratio]18.81 kg/p6FtvzvjiTabatha León MD Work Phone: [facility]02-03-2025 04:40-0500Body lppmho05.9 kgTabatha León MD Work Phone: [facility]01-31-2025 09:25-0500Body nylzbm842.9 cmTabatha León MD Work Phone: [facility] HospitalRofori Corporation Encounters Encounter DateEncounter TypeCare ProviderFacilityStart: 87-29-9911vzfafyekee Shanthi X OrzechFacility:EU [place]Start: 03-05-2025 End: 37-34-9651vizliidbbbFR DONAL URIARTE-AMANKRAFacility:EU [place]Start: 03-05-2025 End: 65-95-6619Paktnog encounter procedureKPETRA URIARTE-DAYANARARA [facility] Start: 02-21-2025 End: 20-13-5975lduubrvgypUU DONAL OAKLEYAH-AMANKRAFacility:EU [place]Start: 02-21-2025 End: 24-47-8635Nloxrgf encounter procedureKPETRA URIARTE-AMANK [facility] Start: 11-20-2024 End: 81-47-9614zgmlerckrjIazjalg M [facility] Work Phone: Start: 11-20-2024 End: 94-94-8353Qnuuduoc ReferredRamon Wilson MD-LAB [facility] Start: 10-21-2024 End: 78-04-0845frmatwncorEBBFKRNV E PERRYFacility:EU [place]Start: 10-21-2024 End: 50-55-6640Jfpazhz encounter procedureJENNIFER E CHARLINE [facility] start: 68-49-2997bzwemzpuytRD DONAL OAKLEYAH-AMANKRA Facility:EU [place]Start: 09-06-2024 End: 42-71-2114jvmseiapxxNN DONAL REARDONANSAH-AMANKRAFacility:EU [place]Start: 08-30-2024 End: 81-72-2992tjxbuzwfkjUUPHCRWR E PERRYFacility:EU [place]ueStart: 07-19-2024 End: 69-25-9595hduxrabeuxLQ DONAL CARONANSAH-AMANKRAFacility:EU [place]Start: 06-25-2024 End: 69-21-7130boyqzstbumYTCVXQHP E PERRYFacility:EU [place]evueStart: 06-25-2024 End: 69-31-5561Jbgpxro encounter procedureJENNIFER E CHARLINE [facility] start: 06-08-2024 End: 16-21-7832Ybnbohota encounterHeather Dima Shelton APRN-[employer]IMMER BUFFING WHEEL Work Phone: [facility] HealthcareStart: 06-07-2024 End: 85-26-8670Arwcmtcmmo and management of inpatientMatthew Philippe MD Work Phone: [facility] 9 AcuteStart: 97-92-6563wpdryopxcgHIMVTSXIVMadison Community Hospital [facility] Start: 06-06-2024 End: 11-07-6356Rnnmtvtpu department patient visitWagner Community [facility] Ambulatory PPGStart: 12-05-2023 End: 65-79-2994azrtmqxmytHSPIDO FAWWAJULIANot AvailableStart: 07-13-2023 End: 05-21-1978Uvlugvmkp Result EncounterSmira Juarez MD Work Phone: noms External Department UnsolicitedStart: 07-13-2023 End: 69-09-2250Fhhbxbyad Result EncounterSmira Juarez MD Work Phone: noms External Department UnsolicitedStart: 06-28-2023 End: 49-61-4600rexgkgiujpTWSJAR FAWWAJULIANot AvailableStart: 63-56-0482Ckicyzaaa Result EncounterSmira Juarez MD Work Phone: noms External Department UnsolicitedStart: 06-22-2023 Clinisync Result EncounterSmira Juarez MD Work Phone: noms External Department UnsolicitedStart: 05-24-2023 End: 72-85-6871munqhyjmloAMLQLC FAWWADNot AvailableStart: 12-14-2018 End: 39-51-9304Kpsuwpr encounter procedureDOCTOR MISCFacility:H1 Procedures DateProcedureProcedure DetailPerforming ClinicianStart: 71-06-0788Prcjz count complete auto&auto difrntl wbcAnia Coryell DO Work Phone: Start: 30-01-7943Svovgqoyr serum plasma/whole blood Tabatha León MD Work Phone: Start: 25-08-8454FYUXEDZYVQR CARE CONSULTAureliano Garduno DO Work Phone: Start: 41-13-7961Rnnublrkurlfm metabolic panel Roseline Reyez MD Work Phone: Start: 92-33-1894Kcvkf metabolic panel calcium total Demetriasarmad Keller DO Work Phone: Start: 33-65-9435Khpgeew function panelAnia Krishna DO Work Phone: [phone]: 16-88-1334Def brain brain stem w/o w/contrast materialRochelle Llamas MD Work Phone: Start: 99-77-6501Rforrurve serum plasma/whole blood Roseline Reyez MD Work Phone: Start: 56-97-5436Fok routine ecg w/least 12 lds trcg only w/o i&rTeradha Reyez MD Work Phone: Start: 26-19-7072Rjlze metabolic panel calcium total Roseline Reyez MD Work Phone: [phone]: 34-29-4151Bfvtjsjuu serum plasma/whole blood Roseline Reyez MD Work Phone: Start: 31-17-4808XEKCRJCTBNE CARE CONSULTAureliano Garduno DO Work Phone: Start: 03-52-5566Qu head/brain w/o contrast material Will Renee WATCH REPAIR TECHNICIAN-TRIMMER BUFFING WHEEL Work Phone: Start: 05-17-26079f rendering w/interp & postprocess supervisionTeradha Reyez MD Work Phone: [phone]: 17-04-0325Qnbwcpqwrqcqvg time partial plasma/whole bloodRoseline Reyez MD Work Phone: Start: 64-04-4046Ojgei metabolic panel calcium total Roseline Reyez MD Work Phone: [phone]: 37-12-6086Pcugh panelTeradha Reyez MD Work Phone: Start: 48-33-32059c rendering w/interp & postprocess supervisionVito Kurtz PA-C Work Phone: [phone]: 34-19-3181Xcboz of magnesiumTeradha Reyez MD Work Phone: [phone]: 36-72-2960Jixt bld gluc mntr dev cleared fda spec home Margarita Philippe MD Work Phone: [phone]: 58-74-6468Cvg abdomen w/o contrast materialAnia Coryell DO Work Phone: Start: 63-67-4391Zw abdomen & pelvis w/o contrast materialMisty Dima GREENWOOD Work Phone: [phone]: 65-69-0863BGSFertm Patel MD Work Phone: Start: 77-25-8790Hulzins bacterial quanttative colony count urineEvleisa Garduno DO Work Phone: [phone]: 45-12-6978Ibjl tst prsmv instrmnt chem analyzers pr dateAureliano Garduno DO Work Phone: [phone]: 53-28-1361Wqgxm dip stick/tablet rgnt auto w/o microscopyEvleisa Garduno DO Work Phone: [phone]: 24-24-5319Lbffe hepatitis panelAureliano Garduno DO Work Phone: [phone]: 21-88-0146Bjhylrwyiglvw metabolic panelAureliano Garduno DO Work Phone: Start: 57-56-9681GNKURDUIIJC CARE CONSULTEvleisa Garduno DO Work Phone: [phone]: 75-10-4546BM FACILITY EST Evelin Juarez MD Work Phone: Start: 76-23-8369RP EXT VENOUS REFLUX MAUDE LMTFer Juarez MD Work Phone: Start: 62-99-8045RZP CBC WITH AUTO DIFFShaikh Larry MCCALL Work Phone: None (qualifier value)KIKI OLIVIER Plan of Treatment DateCare ActivityDetailAuthorStart: 48-04-1540Imlvd BMI ScreeningAdult BMI ScreeningProTrinity Health System Twin City Medical Centertart: 13-18-5492Eqfrl cultureAccess Hospital Daytontart: 58-66-7351Ikunoqmz identified in Urine by CultureUrine [facility] Centertart: 08-68-5132Lnuezsxdf vaccination Influenza VaccineAtrium Health Wake Forest Baptist Medical Centertart: 06-28-2023 End: 83-28-7198Fdkpzdu encounter ellbaypww44/21/2024 1:30 PM EST Office Visit [facility] [address] [place] [address] Shaikh Juarez MD [address] [place] [phone] [facility] IMStart: 02-39-7554Apcocqyws vaccinationInfluenza Vaccine (#1)[facility] HealthcareStart: 89-42-4480Vdxdqihgg aortic aneurysm screening Abdominal Aortic Aneurysm (AAA) ScreenProTrinity Health System Twin City Medical Centertart: 08-01-2019 Fall Risk ScreeningFall Risk ScreeningAtrium Health Wake Forest Baptist Medical Centertart: 2004 Administration of varicella zoster vaccineZoster (Shingles) Vaccine (1 of 2) [facility] SystemStart: 99-47-2211DQqD,Tdap and Td Vaccines (1 - Tdap) DTaP,Tdap and Td Vaccines (1 - Tdap)[facility] SystemStart: 1966 Depression ScreeningDepression ScreeningSouthwest General Health Center SystemStart: 1966 Tobacco ScreeningTobacco ScreeningAtrium Health Wake Forest Baptist Medical Centertart: 1960 Pneumococcal Vaccine: 65+ Years (1 - PCV)Pneumococcal Vaccine: 65+ Years (1 - PCV)[facility] HealthcareStart: 36-57-8967Estbeyqvj for malignant neoplasm of colon [facility] End: 09-94-7031Bvtlx count hemoglobinHemoglobin Lab Routine Every Other Day for 3 Days starting 06/12/2024 until 06/14/2024, 1 completedOneSpot Work Phone: Comment on above:Every Other Day for 3 Days starting 06/12/2024 until 06/14/2024, 1 completedCBC W Auto Differential panel - BloodCBC auto differential Lab Routine Lab max of 3 days, Daily, for lab use only until discontinued starting 06/10/2024, 3 completedOneSpot Work Phone: Comment on above:Lab max of 3 days, Daily, for lab use only until discontinued starting 06/10/2024, 3 completedOxygen Therapy - Maintain SpO2: 90%; *CENTRAL SUPPLY CLERK Guidelines for O2: Yes; Document: \[email or web address]\epic\EPIC_Reference\Orders\Respiratory Care Guidelines\CPG Oxygen 2022.pdfOxygen Therapy - Maintain SpO2: 90%; *CENTRAL SUPPLY CLERK Guidelines for O2: Yes; Document: \[email or web address]\epic\EPIC_Reference\Orders\Respiratory Care Guidelines\CPG Oxygen 2022.pdf Respiratory Care Routine AsNeeded until discontinued starting 06/07/2024[facility] HospitalUsoundComment on above:As Needed until discontinued starting 06/07/2024 End: 64-05-2259Occpubrxn [#/volume] in BloodPlatelet count Lab Routine Every Third Day for 3 Days starting 06/13/2024 until 06/13/2024[facility] Hospital[facility] Comment on above:Every Third Day for 3 Days starting 06/13/2024 until 06/13/2024 End: 07-36-5998Wtbzl oximetry, spot On current oxygen flowPulse oximetry, spot On current oxygen flow Respiratory Care Routine Once for 1 Occurrences starting 06/07/2024 until 06/07/2024One[facility] Work Phone: Comment on above:Once for 1 Occurrences starting 06/07/2024 until 06/07/2024Respiratory Care consult *CENTRAL SUPPLY CLERK Guidelines for Resp Care Consult: Yes; Document: \[email or web address].org\ epic\EPIC_Reference\Orders\Respiratory Care Guidelines\CPG Consult 2020.pdf Respiratory Care consult *CENTRAL SUPPLY CLERK Guidelines for Resp Care Consult: Yes; Document: \[email or web address].org\epic\EPIC_Reference\Orders\Respiratory Care Guidelines\CPG Consult 2020.pdf Respiratory Care Routine Every 12 hour check until discontinued starting 06/07/2024, 4 completedProMarshall Medical Center North Health SystemComment on above:Every 12 hour check until discontinued starting 06/07/2024, 4 completed Immunizations Immunization DateImmunizationNotesCare OptwvswuHygguvex35-29-2933Kquvzkccx Vaccine, Quadrivalent, AdjuvantedHeather Nikita WATCH REPAIR TECHNICIAN-TRIMMER BUFFING WHEEL Work Phone: [facility] Uzecsc13-06-4984lcisqqsqu virus vaccine, unspecified formulationSmira Juarez MD Work Phone: [facility] Payers DatePayer CategoryPayerPolicy [id number] Health [id number] Care Other (unspecified)[place] [id number] [id number] Cross Blue ShieldBCBS Member Subscriber Plan / Payer (Effective 2019-Present) Name: Johnathan Rodney Relation to Subscriber: Spouse Name: TOANPB Date of : 1952 Address: [address] [place] [address] Payer ID: Not on file Type: Not on file Address: [address] [place] [id number] Regional Medical Center Care - Other[facility] Member Subscriber Plan / Payer (Effective 2019-Present) Name: KARMEN RODNEY SR Relation to Subscriber: Spouse Name: PB RODNEY Date of : 1952 (Home) Address: [address] [place] [address] Payer ID: [id number] (NAIC) Type: Not on file Address: [address] [place] [id number] UnknownBCBS BCBS [id number] 2019-Present [phone] [address] [place] [id number] 2020Medicare [id number] [id number] 2020 [id number] 2.840.1.266369.3.57[id number] 2.840.1.117916.3.57[id number] 2.840.1.144844.3.57[id number] 2.16.840.1.770022.3.57[id number] 2.16840.1.799802.3.57[id number] 2.16840.1.588411.3.57[id number] 2.16840.1.162230.3.57[id number] 2.160.1.944412.3.57[id number] 2.16840.1.351221.3.57[id number] 2.0.1.184378.3.57[id number] 2.840.1.366357.3.57[id number] 2.840.1.666651.3.57[id number] 2.0.1.159921.3.57[id number] 2.0.1.042736.3.57[id number] 2.160.1.642499.3.57[id number] 2.16840.1.418519.3.57[id number] 2.16840.1.322112.3.57[id number] 2.16840.1.838297.3.57[id number] 2.16.840.1.262776.3.579.2.727UnknownRegular [id number] iyo7mf4q-2tjk-7642-[id number] 2.16.840.1.286743.3.579.2.531 Social History DateTypeDetailFacilityStart: 05-24-2023 End: 69-03-8862Iledlks smoking status NHISNever smoked tobaccoNOMS Healthcare Start: 05-24-2023 End: 42-02-6453Wzvmvtj use and exposureSmokeless tobacco non-userNOMS Healthcare Start: 55-22-4241Zgejwpm intakeLifetime non-drinker (finding)[facility] Start: 05-24-2023 End: 49-18-1845Txepfbk of Social functionNOMS HealthcareStart: 05-24-2023 End: 27-30-9893Kmocsvm use panelNOMS HealthcareStart: 33-84-2117Vin Assigned At BirthNot on fileNOMS HealthcareStart: 02-23-2022 End: 17-43-3855Gsildxh smoking status NHISEx-smokerProMedica Health System History of tobacco useCurrent smokerProMedica Health SystemStart: 06-07-2024 Alcoholic beverage intakeCurrent drinker of alcohol (finding)ProMedicCardiovascular Decisions SystemStart: 28-01-5910Cfn the AREVS, gas, oil, or water [employer] threatened to shut off services in your home in past 12MoPatient unable to answerProCylon Controls Health SystemStart: 39-17-8436UqcJdhh (finding)[facility] SystemSexual OrientationExecutive [facility] of [facility] start: 10-22-4682Aso Assigned At [facility] Medical Centertart: 17-33-0534Hlgcutlij beverage intakeEx-drinker (finding)[facility]S HealthcareNEGATED: Highlighted rowStart: NINFHistory of tobacco usePassive smokerNOMS Healthcare Goals DatePatient GoalDesired Activity/StatePersonal health goalComment on above: Evaluation of progress towards goal: Functional Status MxdgZfjtpvchxzVtxulwGnwedoru94-73-3873Zdwrrwpxmq StatusN/AExecutive [facility] of [facility] Eduutgrn73-38-6666Aqyopzu Health Questionnaire 2 item (PHQ-2) [Reported][facility] Mental Status DateAssessmentResultFaAurora Medical Center [facility] System Clinical Notes 06-07-2024 to 02-18-2025 Note Date & TljaLsitMbykxjar48-45-5433 Hospital Discharge instructions Follow Up Care 02/18/2025 13:29:19 With:RUSTY MCCALL, DONAL, KEERTHIL Address: When: Unknown [facility] [place] [id number] NotePatient Education Urology Acute Urinary Retention, Male [...] these instructions at home: Medicines ??? Take vtnf-kpt-uutmrqp and prescription medicines only as told by [...] provider. Document Revised: 01/13/2021 Document Reviewed: 01/13/2021 Eventstagr.am Patient Education ? 2023 [employer] 06-26-2024 NotePatient Education Urology Benign Prostatic Hyperplasia [...] Follow these instructions at home: ??? Take juwr-ufv-dejdzxs and prescription medicines only as told by [...] symptoms do not get (more content not included)...[facility]02-05-2025 Nurse Note* Shazia Haynes RN - 06/12/2024 1:50 PM EST Summary: discharge Patient transported to facility by daughter, patient VSS. IV and tele removed. Pt wheeled down to [employer] car. [facility]02-05-2025 Nurse Note* Shazia Haynes RN - 06/12/2024 1:50 PM ESTSummary: discharge Patient transported to facility by daughter, patient VSS. IV and tele removed. Pt wheeled down to [employer] car. * Shazia Haynes RN - 06/11/2024 [...] it kept coiling and would not advance. [employer] messaged person global implementation manager for urology at 0521. Was not read, [...] MANCUSO assistance. At 2119 RN called Vito BENEDITCRLucas with [facility] Team G as primary care team. Stat head CT ordered. Neuro assessment and vitals completed per RN. No neuro changes. Patient still A&O X 4, just slow to say the complete year correctly. Primary updated on assessment and Kiki MANCUSO took patient to CT. - Meaghan Lam RN 06/07/24 9:49 PM documented in [facility]Hol[facility] Plan of care note * Plan [...] at the bedside 7. Instruct patient/ patient appliance service representative about use of safety devices 8. Include patient/ patient appliance service representative in decisions related to safety Outcome: Progressing Note: Evaluation of progress towards goal: Patient free from injury, will continue to provide a clean environment, personal objects in reach, and a well light room Problem: Knowledge Deficit Goal: Patient/patient appliance service representative demonstrates understanding of disease process, treatment [...] be free from fall Description: Interventions: 1. [place] to environment 2. Hourly rounds addressing the [...] non-skid footwear 11. Teach patient and patient appliance service representative to maintain environment for safety and [...] (cane, walker) within reach 19. Request patient appliance service representative bring adaptive equipment/mobility aids from home or obtain and provide as needed 20. Consult pharmacy regarding effects of med's affecting mobility, cognition, and alternatives 21. Obtain physician order for PT if risk factors associated with mobility are present 22. Obtain physician order for OT as appropriate 23. Utilize diversional activities 24. Educate patient and patient appliance service representative how to maintain a safe environment during visitationtimes (notify nurse prior to leaving bedside) 25. Consider appropriateness of medical or non-medical record specialist 26. Set up voiding schedule as appropriate (every 2 hours) Outcome: Progressing Note: Evaluation of progress towards goal: Patient free from injury, will continue to provide a clean environment, personal objects in reach, and a well light room [facility] [employer] Pkmquk47-33-5558 Miscellaneous Notes* Plan of Care - Shazia [...] at the bedside 7. Instruct patient/ patient appliance service representative about use of safety devices 8. Include patient/ patient appliance service representative in decisions related to safety Outcome: Progressing Note: Evaluation of progress towards goal: Patient free from injury, will continue to provide a clean environment, personal objects in reach, and a well light room Problem: Knowledge Deficit Goal: Patient/patient appliance service representative demonstrates understanding of disease process, treatment [...] Score of =/> 25 or indicated by [facility] Rehab Assessment Goal: Patient should be free from fall Description: Interventions: 1. [place] to environment 2. Hourly rounds addressing the [...] non-skid footwear 11. Teach patient and patient appliance service representative to maintain environment for safety and [...] (cane, walker) within reach 19. Request patient appliance service representative bring adaptive equipment/mobility aids from home or obtain and provide as needed 20. Consult pharmacy regarding effects of med's affecting mobility, cognition, and alternatives 21. Obtain physician order for PT if risk factors associated with mobility are present 22. Obtain physician order for OT as appropriate 23. Utilize diversional activities 24. Educate patient and patient appliance service representative how to maintain a safe environment during visitationtimes (notify nurse prior to leaving bedside) 25. Consider appropriateness of medical or non-medical record specialist 26. Set up voiding schedule as appropriate (every 2 hours) Outcome: Progressing Note: Evaluation of progress towards goal: Patient free from injury, will continue to provide a clean environment, personal objects in reach, and a well light room * Discharge Planning Note - MILLIE Call - 06/12/2024 11:21 AM EST DISCHARGE PLANNING NOTE [facility] accepted referral and [facility] will not have a bed available. Social work contacted daughter to inform of above and daughter requested referral to [facility]. Social work sent referral and [facility] is accepting referral. Social work contacted daughter to inquire about NSF preference and she is interested in [facility]. Discharge written, CRF complete. [facility] notified of discharge and CRF sent. [...] Description: INTERVENTIONS: 1. Encourage patient or legal appliance service representative to report early pain and ask [...] per policy 9. Teach patient or legal appliance service representative interventions for comforting Outcome: Progressing Note: [...] at the bedside 7. Instruct patient/ patient appliance service representative about use of safety devices 8. Include patient/ patient appliance service representative in decisions related to safety Outcome: [...] hygiene technique. 7. Identify and instruct patient/patient appliance service representative in use of appropriate isolation precautionsfor identified infection/symptoms. 8. Provide and discuss with patient/patient appliance service representative on educational MDRO sheet. 9. Encourage and monitor nutritional status daily and consult aggregate conveyor operator if indicated. 10. Implement neutropenic guidelines as needed. Outcome: Progressing Note: Evaluation of progress towards goal: Patient currently on IV antibiotics Problem: Knowledge Deficit Goal: Patient/patient appliance service representative demonstrates understanding of disease process, treatment [...] Score of =/> 25 or indicated by [facility] Assessment Goal: Patient should be free from fall Description: Interventions: 1. [place] to environment 2. Hourly rounds addressing the [...] non-skid footwear 11. Teach patient and patient appliance service representative to maintain environment for safety and [...] (cane, walker) within reach 19. Request patient appliance service representative bring adaptive equipment/mobility aids from home or obtain and provide as needed 20. Consult pharmacy regarding effects of med's affecting mobility, cognition, and alternatives 21. Obtain physician order for PT if risk factors associated with mobility are present 22. Obtain physician order for OT as appropriate 23. Utilize diversional activities 24. Educate patient and patient appliance service representative how to maintain a safe environment during visitationtimes (notify nurse prior to leaving bedside) 25. Consider appropriateness of medical or non-medical record specialist 26. Set up voiding schedule as [...] at the bedside 7. Instruct patient/ patient appliance service representative about use of safety devices 8. Include patient/ patient appliance service representative in decisions related to safety Outcome: [...] hygiene technique. 7. Identify and instruct patient/patient appliance service representative in use of appropriate isolation precautionsfor identified infection/symptoms. 8. Provide and discuss with patient/patient appliance service representative on educational MDRO sheet. 9. Encourage and monitor nutritional status daily and consult aggregate conveyor operator if indicated. 10. Implement neutropenic guidelines as needed. Outcome: Progressing Note: Evaluation of progress towards goal: patient is being treated with IV ATB. Problem: Knowledge Deficit Goal: Patient/patient appliance service representative demonstrates understanding of disease process, treatment [...] be free from fall Description: Interventions: 1. [place] to environment 2. Hourly rounds addressing the [...] non-skid footwear 11. Teach patient and patient appliance service representative to maintain environment for safety and [...] (cane, walker) within reach 19. Request patient appliance service representative bring adaptive equipment/mobility aids from home or obtain and provide as needed 20. Consult pharmacy regarding effects of med's affecting mobility, cognition, and alternatives 21. Obtain physician order for PT if risk factors associated with mobility are present 22. Obtain physician order for OT as appropriate 23. Utilize diversional activities 24. Educate patient and patient appliance service representative how to maintain a safe environment during visitationtimes (notify nurse prior to leaving bedside) 25. Consider appropriateness of medical or non-medical record specialist 26. Set up voiding schedule as [...] EST DISCHARGE PLANNING NOTE Referrals sent to [facility]/ [place], [place] (P# ; F# ) and to [facility] in [place] (P#: [phone]; F#: ) * Discharge Planning [...] patient and daughter are requesting referral to [facility] and [facility]. Social work task [facility] to send referral to above facilities- wait acceptance. Patient will not require precert for placement. CN will continue to follow and is available should any further needs arise. - MILLIE CALL 06/11/24 4:11 PM * PT/OT/PHOTORADIO OPERATOR - Horacio Erickson PT - 06/11/2024 3:23 PM EST Physical Therapy Treatment Discharge Recommendations PT Recommendations: [facility] Comments: due to decreased functional [...] mobility, pass Equipment: gait belt, RW, arenas Telemetry/It Service Technician: Yes Oxygen Used: room air Other: High [...] Patient will perform bed mobility with Modified Harvey Dates: Start: 06/09/24 Expected End: 06/23/24 Description: Goal Description: Disciplines: PT Problem: Gait Dates: Start: 06/09/24 Disciplines: PT Goal: Patient will perform gait with Modified Harvey Dates: Start: 06/09/24 Expected End: 06/23/24 Description: [...] Goal: Patient will perform transfers with Modified Harvey Dates: Start: 06/09/24 Expected End: 06/23/24 Description: Goal Description: Disciplines: PT Outcomes Date/Time User Outcome 06/11/24 151 Horacio Erickson PT Progressing Goal Note filed on 06/11/24 151 by Horacio Erickson PT Evaluation of progress towards goal: Physical Therapy Care Plan (Resolved) There are no resolved problems. Principal Problem: Acute encephalopathy * PT/OT/PHOTORADIO OPERATOR - Ana Ventura OTR/Bartolome - 06/11/2024 2:41 PM EST Occupational Therapy Treatment Discharge Recommendations OT Recommendations : [facility] Comments: Recommend SNF for continued [...] JAMEE Mccray Equipment: Gait belt, RW, arenas Telemetry/It Service Technician: Yes Oxygen Used: Room air Other: High [...] Patient will perform bed mobility with Modified Harvey Dates: Start: 06/09/24 Expected End: 07/07/24 Description: Goal Description: Disciplines: OT Problem: Cognition Dates: Start: 06/09/24 Disciplines: OT Goal: Patient's goal is: (specify details) Dates: Start: 06/09/24 Expected End: 07/07/24 Description: Pt will demonstrate good safety awareness 100% of the time Disciplines: OT Problem: Functional Mobility Dates: Start: 06/09/24 Disciplines: OT Goal: Patient will perform functional mobility with Modified Harvey Dates: Start: 06/09/24 Expected End: 07/07/24 Description: [...] Goal: Patient will perform transfers with Modified Harvey Dates: Start: 06/09/24 Expected End: 07/07/24 Description: [...] Description: INTERVENTIONS: 1. Encourage patient or legal appliance service representative to report early pain and ask [...] per policy 9. Teach patient or legal appliance service representative interventions for comforting Outcome: Progressing Note: [...] at the bedside 7. Instruct patient/ patient appliance service representative about use of safety devices 8. Include patient/ patient appliance service representative in decisions related to safety Outcome: [...] hygiene technique. 7. Identify and instruct patient/patient appliance service representative in use of appropriate isolation precautionsfor identified infection/symptoms. 8. Provide and discuss with patient/patient appliance service representative on educational MDRO sheet. 9. Encourage and monitor nutritional status daily and consult aggregate conveyor operator if indicated. 10. Implement neutropenic guidelines as needed. Outcome: Progressing Note: Evaluation of progress towards goal: Patient currently on IV antibiotics Problem: Knowledge Deficit Goal: Patient/patient appliance service representative demonstrates understanding of disease process, treatment [...] be free from fall Description: Interventions: 1. [place] to environment 2. Hourly rounds addressing the [...] non-skid footwear 11. Teach patient and patient appliance service representative to maintain environment for safety and [...] (cane, walker) within reach 19. Request patient appliance service representative bring adaptive equipment/mobility aids from home or obtain and provide as needed 20. Consult pharmacy regarding effects of med's affecting mobility, cognition, and alternatives 21. Obtain physician order for PT if risk factors associated with mobility are present 22. Obtain physician order for OT as appropriate 23. Utilize diversional activities 24. Educate patient and patient appliance service representative how to maintain a safe environment during visitationtimes (notify nurse prior to leaving bedside) 25. Consider appropriateness of medical or non-medical record specialist 26. Set up voiding schedule as [...] supplement as ordered 13. Collaborate with clinical aggregate conveyor operator 14. Include patient/ patient's appliance service representative in decisions related to nutrition Outcome: [...] Description: INTERVENTIONS: 1. Encourage patient or legal appliance service representative to report early pain and ask [...] per policy 9. Teach patient or legal appliance service representative interventions for comforting Outcome: Progressing Note: [...] at the bedside 7. Instruct patient/ patient appliance service representative about use of safety devices 8. Include patient/ patient appliance service representative in decisions related to safety Outcome: [...] hygiene technique. 7. Identify and instruct patient/patient appliance service representative in use of appropriate isolation precautionsfor identified infection/symptoms. 8. Provide and discuss with patient/patient appliance service representative on educational MDRO sheet. 9. Encourage and monitor nutritional status daily and consult aggregate conveyor operator if indicated. 10. Implement neutropenic guidelines as needed. Outcome: Progressing Note: Evaluation of progress towards goal: Patient has remained free from infection during hospitalstay. Patient is afebrile and last WBC was 6.7. Will continue using standard precautions and monitoring for signs and symptoms of infection. Problem: Knowledge Deficit Goal: Patient/patient appliance service representative demonstrates understanding of disease process, treatment [...] supplement as ordered 13. Collaborate with clinical aggregate conveyor operator 14. Include patient/ patient's appliance service representative in decisions related to nutrition Outcome: Progressing Note: Evaluation of progress towards goal: Patient appears to have adequate nutritional intake. Problem: Moderate - High Risk Fall Score Description: Bust[place]ante Fall Score of =/> 25 or indicated by [facility] Assessment Goal: Patient should be free from fall Description: Interventions: 1. [place] to environment 2. Hourly rounds addressing the [...] non-skid footwear 11. Teach patient and patient appliance service representative to maintain environment for safety and [...] (cane, walker) within reach 19. Request patient appliance service representative bring adaptive equipment/mobility aids from home or obtain and provide as needed 20. Consult pharmacy regarding effects of med's affecting mobility, cognition, and alternatives 21. Obtain physician order for PT if risk factors associated with mobility are present 22. Obtain physician order for OT as appropriate 23. Utilize diversional activities 24. Educate patient and patient appliance service representative how to maintain a safe environment during visitationtimes (notify nurse prior to leaving bedside) 25. Consider appropriateness of medical or non-medical record specialist 26. Set up voiding schedule as [...] Description: INTERVENTIONS: 1. Encourage patient or legal appliance service representative to report early pain and ask [...] per policy 9. Teach patient or legal appliance service representative interventions for comforting Outcome: Progressing Note: [...] at the bedside 7. Instruct patient/ patient appliance service representative about use of safety devices 8. Include patient/ patient appliance service representative in decisions related to safety Outcome: [...] hygiene technique. 7. Identify and instruct patient/patient appliance service representative in use of appropriate isolation precautionsfor identified infection/symptoms. 8. Provide and discuss with patient/patient appliance service representative on educational MDRO sheet. 9. Encourage and monitor nutritional status daily and consult aggregate conveyor operator if indicated. 10. Implement neutropenic guidelines as needed. Outcome: Progressing Note: Evaluation of progress towards goal: Scheduling Analyst assessed pt risk for infection in the beginning and throughout shift. Pt remains afebrile. Will continue to monitor. Problem: Knowledge Deficit Goal: Patient/patient appliance service representative demonstrates understanding of disease process, treatment plan,medications, and discharge instructions Description: INTERVENTIONS 1. Complete learning assessment and assess knowledge base 2. Provide teaching at level of understanding 3. Provide teaching via preferred learning method(s) Outcome: Progressing Note: Evaluation of progress towards goal: Scheduling Analyst educated pt on admission disease, medications, treatment, [...] supplement as ordered 13. Collaborate with clinical aggregate conveyor operator 14. Include patient/ patient's appliance service representative in decisions related to nutrition Outcome: [...] Score of =/> 25 or indicated by [facility] Assessment Goal: Patient should be free from fall Description: Interventions: 1. [place] to environment 2. Hourly rounds addressing the [...] non-skid footwear 11. Teach patient and patient appliance service representative to maintain environment for safety and [...] (cane, walker) within reach 19. Request patient appliance service representative bring adaptive equipment/mobility aids from home or obtain and provide as needed 20. Consult pharmacy regarding effects of med's affecting mobility, cognition, and alternatives 21. Obtain physician order for PT if risk factors associated with mobility are present 22. Obtain physician order for OT as appropriate 23. Utilize diversional activities 24. Educate patient and patient appliance service representative how to maintain a safe environment during visitationtimes (notify nurse prior to leaving bedside) 25. Consider appropriateness of medical or non-medical record specialist 26. Set up voiding schedule as appropriate (every 2 hours) Outcome: Progressing Note: Evaluation of progress towards goal: Scheduling Analyst assessed pt fall precautions in the beginning [...] Description: INTERVENTIONS: 1. Encourage patient or legal appliance service representative to report early pain and ask [...] per policy 9. Teach patient or legal appliance service representative interventions for comforting Outcome: Progressing Note: [...] at the bedside 7. Instruct patient/ patient appliance service representative about use of safety devices 8. Include patient/ patient appliance service representative in decisions related to safety Outcome: [...] hygiene technique. 7. Identify and instruct patient/patient appliance service representative in use of appropriate isolation precautionsfor identified infection/symptoms. 8. Provide and discuss with patient/patient appliance service representative on educational MDRO sheet. 9. Encourage and monitor nutritional status daily and consult aggregate conveyor operator if indicated. 10. Implement neutropenic guidelines as [...] be free from fall Description: Interventions: 1. [place] to environment 2. Hourly rounds addressing the [...] non-skid footwear 11. Teach patient and patient appliance service representative to maintain environment for safety and [...] (cane, walker) within reach 19. Request patient appliance service representative bring adaptive equipment/mobility aids from home or obtain and provide as needed 20. Consult pharmacy regarding effects of med's affecting mobility, cognition, and alternatives 21. Obtain physician order for PT if risk factors associated with mobility are present 22. Obtain physician order for OT as appropriate 23. Utilize diversional activities 24. Educate patient and patient appliance service representative how to maintain a safe environment during visitationtimes (notify nurse prior to leaving bedside) 25. Consider appropriateness of medical or non-medical record specialist 26. Set up voiding schedule as [...] wax/wane with mentation. Q4 neuros checked * PT/OT/PHOTORADIO OPERATOR - Ree Hinson OTR/Bartolome - 06/09/2024 12:07 PM EST Occupational Therapy Evaluation Discharge Recommendations OT Recommendations : [facility] Comments: Recommend SNF for continued [...] History: Diagnosis Date Abnormal EKG Atrial fibrillation ([facility]) Back pain Bradycardia Chronic atrial fibrillation ([facility]) Hypertension Hypertensive heart disease without heart failure Hypokalemia Pure hypercholesterolemia Urinary tract infection 01/2019 seen by [facility] No past surgical history on file. [...] mobility guidelines Equipment: Gait belt, RW, arenas Telemetry/It Service Technician: Yes Oxygen Used: Room air Other: High [...] Patient will perform bed mobility with Modified Harvey Dates: Start: 06/09/24 Expected End: 07/07/24 Description: Goal Description: Disciplines: OT Problem: Cognition Dates: Start: 06/09/24 Disciplines: OT Goal: Patient's goal is: (specify details) Dates: Start: 06/09/24 Expected End: 07/07/24 Description: Pt will demonstrate good safety awareness 100% of the time Disciplines: OT Problem: Functional Mobility Dates: Start: 06/09/24 Disciplines: OT Goal: Patient will perform functional mobility with Modified Harvey Dates: Start: 06/09/24 Expected End: 07/07/24 Description: [...] Goal: Patient will perform transfers with Modified Harvey Dates: Start: 06/09/24 Expected End: 07/07/24 Description: Goal Description: Disciplines: OT Occupational Therapy Care Plan (Resolved) There are no resolved problems. Principal Problem: Acute encephalopathy * PT/OT/PHOTORADIO OPERATOR - Sadie Sim PT - 06/09/2024 11:21 AM EST Physical Therapy Evaluation Discharge Recommendations PT Recommendations: [facility] Comments: pt will need SNF [...] status decline resulting from admission 06/07/24 from [place] where he went with afib with RVR and altered mentalstatus. MRI brain without acute findings but chronic infarct post R frontal lobe. Neuro stroke consulted and recommended transfer to [facility]. Diagnosed with acute encphalopathy, afib with RVR [...] hypercholesterolemia Urinary tract infection 01/2019 seen by [facility] No past surgical history on file. [...] to see Equipment: RW, gait belt, catheter Telemetry/It Service Technician: Yes Oxygen Used: room air Other: pt [...] Patient will perform bed mobility with Modified Harvey Dates: Start: 06/09/24 Expected End: 06/23/24 Description: Goal Description: Disciplines: PT Problem: Gait Dates: Start: 06/09/24 Disciplines: PT Goal: Patient will perform gait with Modified Harvey Dates: Start: 06/09/24 Expected End: 06/23/24 Description: [...] Goal: Patient will perform transfers with Modified Harvey Dates: Start: 06/09/24 Expected End: 06/23/24 Description: [...] at the bedside 7. Instruct patient/ patient appliance service representative about use of safety devices 8. Include patient/ patient appliance service representative in decisions related to safety Outcome: Progressing Note: Evaluation of progress towards goal: Patient free from injury, will continue to provide a clean environment, personal objects in reach, and a well light room Problem: Knowledge Deficit Goal: Patient/patient appliance service representative demonstrates understanding of disease process, treatment [...] be free from fall Description: Interventions: 1. [place] to environment 2. Hourly rounds addressing the [...] non-skid footwear 11. Teach patient and patient appliance service representative to maintain environment for safety and [...] (cane, walker) within reach 19. Request patient appliance service representative bring adaptive equipment/mobility aids from home or obtain and provide as needed 20. Consult pharmacy regarding effects of med's affecting mobility, cognition, and alternatives 21. Obtain physician order for PT if risk factors associated with mobility are present 22. Obtain physician order for OT as appropriate 23. Utilize diversional activities 24. Educate patient and patient appliance service representative how to maintain a safe environment during visitationtimes (notify nurse prior to leaving bedside) 25. Consider appropriateness of medical or non-medical record specialist 26. Set up voiding schedule as appropriate (every 2 hours) Outcome: Progressing Note: Evaluation of progress towards goal: Patient free from injury, will continue to provide a clean environment, personal objects in reach, and a well light room * PT/OT/PHOTORADIO OPERATOR - Will Doyle PT - 06/08/2024 11:04 [...] Description: INTERVENTIONS: 1. Encourage patient or legal appliance service representative to report early pain and ask [...] per policy 9. Teach patient or legal appliance service representative interventions for comforting Outcome: Progressing Note: [...] at the bedside 7. Instruct patient/ patient appliance service representative about use of safety devices 8. Include patient/ patient appliance service representative in decisions related to safety Outcome: [...] hygiene technique. 7. Identify and instruct patient/patient appliance service representative in use of appropriate isolation precautionsfor identified infection/symptoms. 8. Provide and discuss with patient/patient appliance service representative on educational MDRO sheet. 9. Encourage and monitor nutritional status daily and consult aggregate conveyor operator if indicated. 10. Implement neutropenic guidelines as needed. Outcome: Progressing Note: Evaluation of progress towards goal: Patient has remained afebrile. WBC and vital signs monitored. Patient has not shown any additional signs of infection at this time. Problem: Knowledge Deficit Goal: Patient/patient appliance service representative demonstrates understanding of disease process, treatment [...] Score of =/> 25 or indicated by [facility] Assessment Goal: Patient should be free from fall Description: Interventions: 1. [place] to environment 2. Hourly rounds addressing the [...] non-skid footwear 11. Teach patient and patient appliance service representative to maintain environment for safety and [...] (cane, walker) within reach 19. Request patient appliance service representative bring adaptive equipment/mobility aids from home or obtain and provide as needed 20. Consult pharmacy regarding effects of med's affecting mobility, cognition, and alternatives 21. Obtain physician order for PT if risk factors associated with mobility are present 22. Obtain physician order for OT as appropriate 23. Utilize diversional activities 24. Educate patient and patient appliance service representative how to maintain a safe environment during visitationtimes (notify nurse prior to leaving bedside) 25. Consider appropriateness of medical or non-medical record specialist 26. Set up voiding schedule as [...] about disease process, medications, and treatment plan. Scheduling Analyst to update patient throughout the shift regarding [...] at the bedside 7. Instruct patient/ patient appliance service representative about use of safety devices 8. Include patient/ patient appliance service representative in decisions related to safety Outcome: Progressing Note: Evaluation of progress towards goal: Patient free from injury, will continue to provide a clean environment, personal objects in reach, and a well light room Problem: Knowledge Deficit Goal: Patient/patient appliance service representative demonstrates understanding of disease process, treatment [...] be free from fall Description: Interventions: 1. [place] to environment 2. Hourly rounds addressing the [...] non-skid footwear 11. Teach patient and patient appliance service representative to maintain environment for safety and [...] (cane, walker) within reach 19. Request patient appliance service representative bring adaptive equipment/mobility aids from home or obtain and provide as needed 20. Consult pharmacy regarding effects of med's affecting mobility, cognition, and alternatives 21. Obtain physician order for PT if risk factors associated with mobility are present 22. Obtain physician order for OT as appropriate 23. Utilize diversional activities 24. Educate patient and patient appliance service representative how to maintain a safe environment during visitationtimes (notify nurse prior to leaving bedside) 25. Consider appropriateness of medical or non-medical record specialist 26. 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 He [...] food box at discharge. documented in this encounterGuernsey Memorial HospitalAppVault [facility] [id number] Progress note* Discharge Planning Note - MILLIE Call - 06/12/2024 11:21 AM EST DISCHARGE PLANNING NOTE [facility] accepted referral and [facility] will not have a bed available. Social work contacted daughter to inform of above and daughter requested referral to [facility] and [facility]. [facility]. Social work contacted daughter to inquire about NSF preference and she is interested in [facility]. Discharge written, CRF complete. [facility] notified of discharge and CRF sent. Daughter will transport patient this afternoon to SNF. RN updated. HENS submitted. - MILLIE CALL 06/12/24 11:23 AM [facility]02-05-[facility] Hospital course Narrative* Tabatha León MD - 06/12/2024 11:06 AM EST Images from the original note were not included. [facility] Physicians Hospitalists Discharge Summary CONFIDENTIAL INFORMATION Patient's Name: Johnathan Rodney Date of : 1955 Age: 68 yrs Gender: male Date of service: 06/12/2024 PCP: Patient Care Team: [facility] as PCP - General (Family Medicine) DATE OF ADMISSION: 06/07/2024 DATE OF DISCHARGE: 06/12/2024 DISCHARGE DIAGNOSES: Principal Problem: Acute encephalopathy CONSULTANTS: Consulting Providers Provider Service Specialty Nicolas Wells MD Z Surgery General Surgery Catrina Marie MD -- Neurology Richardson Brandt DO -- Gastroenterology PCP: Patient Care Team: [facility] as PCP - General (Family Medicine) Hospital Course HPI Johnathan Rodney is a 68 y.o. male medical history significant for atrial fibrillation, hypertension, chronic systolic heart failure, history of alcohol use disorder, who presented to [facility] for evaluation of altered mentation. Patient history [...] was consulted and they recommended transfer to [facility] for evaluation with potential lumbar puncture. Per [...] Your Medications These medications were sent to [facility]/pharmacy #[id number] - [place], [place] - [address] [facility] [address] atorvastatin 40 mg tablet carvediloL 12.5 mg [...] special instructions. Follow up: Lizbeth Horne MD [address] [place], [place] [id number] Schedule an appointment as soon as possible for a visit in 2 week(s) to discuss urinary issues [address] [phone] Greater than 35 minutes were spent on discharging this patient. Electronically SIGNED by Licensed Independent Practitioner: Tabatha León MD [facility] Physician Hospitalists, Department of Internal [...] have escaped final proofreading documented in this encounterHol[facility] Plan of care note * Plan of Care - Kate Benson RN - 06/12/2024 12:49 AM EST Problem: Pain Goal: Patient goal is pain score less than 4, able to rest, and participant in treatment plan as appropriate Description: INTERVENTIONS: 1. Encourage patient or legal appliance service representative to report early pain and ask [...] per policy 9. Teach patient or legal appliance service representative interventions for comforting Outcome: Progressing Note: [...] at the bedside 7. Instruct patient/ patient appliance service representative about use of safety devices 8. Include patient/ patient appliance service representative in decisions related to safety Outcome: [...] hygiene technique. 7. Identify and instruct patient/patient appliance service representative in use of appropriate isolation precautionsfor identified infection/symptoms. 8. Provide and discuss with patient/patient appliance service representative on educational MDRO sheet. 9. Encourage and monitor nutritional status daily and consult aggregate conveyor operator if indicated. 10. Implement neutropenic guidelines as needed. Outcome: Progressing Note: Evaluation of progress towards goal: Patient currently on IV antibiotics Problem: Knowledge Deficit Goal: Patient/patient appliance service representative demonstrates understanding of disease process, treatment [...] Score of =/> 25 or indicated by [facility] Assessment Goal: Patient should be free from fall Description: Interventions: 1. [place] to environment 2. Hourly rounds addressing the [...] non-skid footwear 11. Teach patient and patient appliance service representative to maintain environment for safety and [...] (cane, walker) within reach 19. Request patient appliance service representative bring adaptive equipment/mobility aids from home or obtain and provide as needed 20. Consult pharmacy regarding effects of med's affecting mobility, cognition, and alternatives 21. Obtain physician order for PT if risk factors associated with mobility are present 22. Obtain physician order for OT as appropriate 23. Utilize diversional activities 24. Educate patient and patient appliance service representative how to maintain a safe environment during visitationtimes (notify nurse prior to leaving bedside) 25. Consider appropriateness of medical or non-medical record specialist 26. Set up voiding schedule as [...] of progress towards goal: Neuro status improving. [facility] Plan of care note* Plan of [...] at the bedside 7. Instruct patient/ patient appliance service representative about use of safety devices 8. Include patient/ patient appliance service representative in decisions related to safety Outcome: [...] hygiene technique. 7. Identify and instruct patient/patient appliance service representative in use of appropriate isolation precautionsfor identified infection/symptoms. 8. Provide and discuss with patient/patient appliance service representative on educational MDRO sheet. 9. Encourage and monitor nutritional status daily and consult aggregate conveyor operator if indicated. 10. Implement neutropenic guidelines as needed. Outcome: Progressing Note: Evaluation of progress towards goal: patient is being treated with IV ATB. Problem: Knowledge Deficit Goal: Patient/patient appliance service representative demonstrates understanding of disease process, treatment [...] Score of =/> 25 or indicated by [facility] Assessment Goal: Patient should be free from fall Description: Interventions: 1. [place] to environment 2. Hourly rounds addressing the [...] non-skid footwear 11. Teach patient and patient appliance service representative to maintain environment for safety and [...] (cane, walker) within reach 19. Request patient appliance service representative bring adaptive equipment/mobility aids from home or obtain and provide as needed 20. Consult pharmacy regarding effects of med's affecting mobility, cognition, and alternatives 21. Obtain physician order for PT if risk factors associated with mobility are present 22. Obtain physician order for OT as appropriate 23. Utilize diversional activities 24. Educate patient and patient appliance service representative how to maintain a safe environment during visitationtimes (notify nurse prior to leaving bedside) 25. Consider appropriateness of medical or non-medical record specialist 26. Set up voiding schedule as [...] is improving- patient is alert and oriented [facility] [id number] Progress note* Discharge Planning Note - Keri Madrid - 06/11/2024 4:29 PM EST DISCHARGE PLANNING NOTE Referrals sent to [facility]/ [facility], [place], [place] (P# ; F# ) and to [facility] in [place] (P#: [phone]; F#: ) [facility] [id number] Progress note* Discharge Planning Note - MILLIE [...] patient and daughter are requesting referral to [facility]. Social work task RC to send referral to above facilities- wait acceptance. Patient will not require precert for placement. CN will continue to follow and is available should any further needs arise. - MILLIE CALL 06/11/24 4:11 PM [facility]02-04-2025 Progress note* PT/OT/PHOTORADIO OPERATOR - Horacio Erickson, PT - 06/11/2024 3:23 PM EST Physical Therapy Treatment Discharge Recommendations PT Recommendations: [facility] Comments: due to decreased functional [...] mobility, pass Equipment: gait belt, RW, arenas Telemetry/It Service Technician: Yes Oxygen Used: room air Other: High [...] Patient will perform bed mobility with Modified Harvey Dates: Start: 06/09/24 Expected End: 06/23/24 Description: Goal Description: Disciplines: PT Problem: Gait Dates: Start: 06/09/24 Disciplines: PT Goal: Patient will perform gait with Modified Harvey Dates: Start: 06/09/24 Expected End: 06/23/24 Description: [...] Goal: Patient will perform transfers with Modified Harvey Dates: Start: 06/09/24 Expected End: 06/23/24 Description: Goal Description: Disciplines: PT Outcomes Date/Time User Outcome 06/11/241511 Horacio Erickson PT Progressing Goal Note filed on 06/11/24 151 by Horacio Erickson PT Evaluation of progress towards goal: Physical Therapy Care Plan (Resolved) There are no resolved problems. Principal Problem: Acute encephalopathy [facility]02-04-2025 Progress note* PT/OT/PHOTORADIO OPERATOR - Ana Ventura OTR/L - 06/11/2024 2:41 PM EST Occupational Therapy Treatment Discharge Recommendations OT Recommendations : [facility] Comments: Recommend SNF for continued [...] JAMEE Mccray Equipment: Gait belt, RW, arenas Telemetry/It Service Technician: Yes Oxygen Used: Room air Other: High [...] Patient will perform bed mobility with Modified Harvey Dates: Start: 06/09/24 Expected End: 07/07/24 Description: Goal Description: Disciplines: OT Problem: Cognition Dates: Start: 06/09/24 Disciplines: OT Goal: Patient's goal is: (specify details) Dates: Start: 06/09/24 Expected End: 07/07/24 Description: Pt will demonstrate good safety awareness 100% of the time Disciplines: OT Problem: Functional Mobility Dates: Start: 06/09/24 Disciplines: OT Goal: Patient will perform functional mobility with Modified Harvey Dates: Start: 06/09/24 Expected End: 07/07/24 Description: [...] Goal: Patient will perform transfers with Modified Harvey Dates: Start: 06/09/24 Expected End: 07/07/24 Description: Goal Description: Disciplines: OT Outcomes Date/Time User Outcome 06/11/241517 JERMAN Orr/Bartolome Progressing Goal Note filed on 06/11/241517 by CY Orr Evaluation of progress towards goal: Occupational Therapy Care Plan (Resolved) There are no resolved problems. Principal Problem: Acute encephalopathy [facility] Nurse Note* Shazia Haynes RN - 06/11/2024 2:31 PM ESTSummary: patient behavior Patient declined walking with RN and NA multiple times. Patient declined having food warmed up, RN provided box lunch for patient. Patient continues to talk down to staff. [facility] History of Present illness Narrative* Tabatha [...] or primary neurological disorders. Bertha Oakley MD Asic Verification Engineer Neurology/Neurophysiology [facility] brain without contrast Result Date: [...] appreciable flow related enhancement within the proximal Q7isfrzfw possibly due to flow dynamics and zxdh-gx-vkxwsg technique as there appears to be normal contrast enhancement within the V4 segment on the MRA of the neck Basilar artery: Normal. licensed prosthetist: The left COMMUNITY LIVING INSTRUCTOR is normal. Diminished flow related enhancement within the distal right COMMUNITY LIVING INSTRUCTOR distribution likely sequelae of prior right COMMUNITY LIVING INSTRUCTOR infarct. IMPRESSION: 1. Diminished flow related signal within the right COMMUNITY LIVING INSTRUCTOR is likely chronic and related to known right chronic occipital infarct/encephalomalacia. 2. Diminished flow related enhancement within the proximal right vertebral artery is likely due to flow dynamics and mrjr-as-gvoidk technique is there is normal-appearing enhancement on [...] Correlate with symptoms. Sequelae of prior right COMMUNITY LIVING INSTRUCTOR territory ischemia Finalized by Zac Lucia on [...] was made toensure accuracy; however, inadvertent computerized bakery helper errors may be present. * Eric Dejesus [...] Urology reconsulted for Arenas catheter placement. Eighteen Cymraes Guys tip catheter placed without resistance with return [...] from the original note were not included. [facility] Neurology General Neurology Consultation Progress Note Consult Neurology Service: [phone] Primary Team: Howie Hospitalist Chief Concern and [...] for occult infection. Patient was transferred to [facility] for further evaluation. Interval history: Patient [...] history of alcohol use. PT OT, social organization professor. Delirium precautions. No further inpatient neurology workup needed at this time, our service will sign off Marco A Reddy MD PGY-4, Neurology Resident [facility] 06/10/24 3:05 PM Staffed with: Dr. Bethea This patient is being followed by the Neurology Resident service. Contact attending directly during these hours: Monday to 7:30-8:30 A.M. to Monday 12-1:00 p.m. Primary Neurology service: [phone] Consult neurology service: [phone] Resident Stroke Service: [phone] If the patient belongs to the Stroke [...] agree with resident note. Guilherme Bethea MD Asic Verification Engineer of Neurology [facility] 06/10/24 * Roseline Reyez MD - 06/10/2024 8:33 AM EST Images from the original note were not included. [facility] PHYSICIANS HOSPITALIST PROGRESS NOTE 06/10/2024 Patient Name: [...] metoprolol (LOPRESSOR) IV, 5 mg, Q6H PRN kipndtdn-tyji-WH-calcium &mins, 1 tablet, Daily PRN potassium chloride, [...] Procedure Component Value Units Date/Time Urine culture [[id number]] Collected: 06/07/24 0751 Specimen: Urine Updated: 06/08/24 [...] appreciable flow related enhancement within the proximal I8ylbatra possibly due to flow dynamics and rlhv-ez-yfueka technique as there appears to be normal contrast enhancement within the V4 segment on the MRA of the neck Basilar artery: Normal. licensed prosthetist: The left COMMUNITY LIVING INSTRUCTOR is normal. Diminished flow related enhancement within the distal right COMMUNITY LIVING INSTRUCTOR distribution likely sequelae of prior right COMMUNITY LIVING INSTRUCTOR infarct. IMPRESSION: 1. Diminished flow related signal within the right COMMUNITY LIVING INSTRUCTOR is likely chronic and related to known right chronic occipital infarct/encephalomalacia. 2. Diminished flow related enhancement within the proximal right vertebral artery is likely due to flow dynamics and gjii-sr-cqgmfs technique is there is normal-appearing enhancement on [...] Correlate with symptoms. Sequelae of prior right COMMUNITY LIVING INSTRUCTOR territory ischemia Finalized by Zac Lucia on [...] Electronically signed by: ROSELINE REYEZ MD, KRISTAL, [facility] 06/10/2024 2:29 PM Preferred contact method: #1. Epic chat #2. [facility] team pager Available from 7 am to 7 pm * Will Renee APRN-TRIMMER BUFFING WHEEL - 06/09/2024 5:25 PM EST Images from the original note were not included. [facility] [address] [place] [address], [address] [place] [address] * NEUROSURGERY DAILY PROGRESS NOTE DATE:06/09/2024 PATIENT'S NAME: Jonhathan Rodney PATIENT'S PATIENT'S : 1955 PROCEDURE None [...] Julio- [facility] Please contact via Ideabove first then can utilize Patient touch/VoceraEdge if needed 06/09/24 5:34 PM To find out which JAK is on for the day please go to [employer] and use log in [employer] and search for PTH Neurosurgery (JAK and Phone Number is listed) NIRMALA Beebe 06/09/24 [id number] * Roseline Reyez MD - 06/09/2024 9:45 [...] metoprolol (LOPRESSOR) IV, 5 mg, Q6H PRN olxbhxlt-dtfm-CZ-calcium &mins, 1 tablet, Daily PRN potassium chloride, [...] Procedure Component Value Units Date/Time Urine culture [[id number]] Collected: 06/07/24 0751 Specimen: Urine Updated: 06/08/24 [...] or primary neurological disorders. Bertha Oakley MD Asic Verification Engineer Neurology/Neurophysiology [facility] brain without contrast Result Date: [...] magnesium sulfate magnesium sulfate metoprolol (LOPRESSOR) IV ljalpzau-hmss-FR-calcium &mins potassium chloride OR potassium chloride OR [...] and marijuana use who was transferred to [facility] from OSH with AMS and hyperbilirubinemia. MRCP [...] General Surgery C 6a - 6p Pager: [phone] 6p - 6a Pager: [phone] Cosigned by Nicolas Wells MD at 06/09/2024 [...] General Surgery and Minimally Invasive Surgery [address] [facility], [address] [place] [address] Office: * Marco A Reddy MD - 06/08/2024 5:51 PM EST Images from the original note were not included. [facility] Neurology General Neurology Consultation Progress Note Consult Neurology Service: [phone] Primary Team: [place] Hospitalist Chief Concern and Reason for Consultation: [...] for occult infection. Patient was transferred to [facility] for further evaluation. Interval history: Patient [...] Marco A Reddy MD PGY-4, Neurology Resident [facility] 06/08/24 5:51 PM Staffed with: Dr. Bethea This patient is being followed by the Neurology Resident service. Contact attending directly during these hours: Monday to 7:30-8:30 A.M. to Monday 12-1:00 p.m. Primary Neurology service: [phone] Consult neurology service: [phone] Resident Stroke Service: [phone] If the patient belongs to the Stroke [...] LORazepam OR LORazepam magnesium sulfate magnesium sulfate wdcgidyu-esfy-GG-calcium &mins potassium chloride OR potassium chloride OR [...] or primary neurological disorders. Bertha Oakley MD Asic Verification Engineer Neurology/Neurophysiology [facility] brain without contrast CT HEAD [...] and marijuana use who was transferred to [facility] from OSH with AMS and hyperbilirubinemia. MRCP [...] General Surgery C 6a - 6p Pager: [phone] 6p - 6a Pager: [phone] Cosigned by Nicolas Wells MD at 06/08/2024 [...] FACS General Surgery and Minimally Invasive Surgery [address] [place] [address], [address] [place] [address] Office: * Essence Shelton, WATCH REPAIR TECHNICIAN-TRIMMER BUFFING WHEEL - 06/08/2024 10:31 AM EST [facility] Gastroenterology/Hepatology Progress Note IDENTIFYING DATA PATIENT: [...] mg, PRN magnesium sulfate, 4,000 mg, PRN ayxrquwz-jdyl-KL-calcium &mins, 1 tablet, Daily PRN potassium chloride, [...] use admitted with encephalopathy after presenting to [facility] with altered mental status and hallucinations. 1. [...] standpoint. GI will sign off. NIRMALA Kennedy [facility] Physicians [facility] [address] [place], [place] [address] PH: [phone] NIRMALA Kuhn 06/08/24 1530 * Roseline Reyez MD - 06/08/2024 10:15 AM EST Images from the original note were not included. [facility]ANS HOSPITALIST PROGRESS NOTE 06/08/2024 [...] for Arenas catheter. Alcohol use disorder- on [facility] protocol. Thiamine and folic acid. Marijuana [...] mg, PRN magnesium sulfate, 4,000 mg, PRN bklntyxo-rabf-YA-calcium &mins, 1 tablet, Daily PRN potassium chloride, [...] Procedure Component Value Units Date/Time Urine culture [[id number]] Collected: 06/07/24 0751 Specimen: Urine Updated: 06/08/24812 [...] or primary neurological disorders. Bertha Oakley MD Asic Verification Engineer Neurology/Neurophysiology [facility] brain without contrast Result Date: [...] Preferred contact method: #1. Epic chat #2. [facility] team pager Available from 7 am to 7 pm * Corey Wade MD - 06/08/2024 9:41 AM EST Images from the original note were not included. Jr. Romero Gregor, M.D., Zac Jin M.D., Wilfred Lang M.D., Lizbeth Rader M.D., Melina Burks M.D., Tesfaye Bruno M.D., Sachin Cao M.D., Orlanod Mora M.D, Florentino Ervin M.D. Hospital day: [...] from the original note were not included. [facility] Neurology General Neurology Consultation Progress Note Consult Neurology Service: [phone] Primary Team: VikyKettering Healthist Chief Concern and Reason for Consultation: Altered [...] occult infection. Patient was tra ns[facility]red [facility] for further evaluation. Overnight, no significant [...] light touch throughout. Cerebellar: Able to do bmmfbk-yl-gxjh bilaterally; normal coordination Gait and station: Deferred. [...] secondary to metabolic encephalopathy versus delirium versus PLUG PASTER infection versus seizure. Remote right frontal and [...] Shavonne Holbrook MD PGY-2 Internal Medicine Resident [facility] 06/07/24 12:21 PM Staffed with: Dr. Marie This patient is being followed by the Neurology Resident service. Contact attending directly during these hours: Monday to 7:30-8:30 A.M. to Monday 12-1:00 p.m. Primary Neurology service: [phone] Consult neurology service: [phone] Resident Stroke Service: [phone] If the patient belongs to the Stroke [...] Garza RPH - 06/07/2024 6:12 AM EST [facility] Department of Pharmacy Pharmacist to Physician Communication The dose of metronidazole has been changed per the [facility] approved temporary dosing guidelines, due tothe drug continued drug shortage (adjusted from 500 mg IV every 8 hours to 500 mg IV every 12 hours). If you need additional information, please reach out to a pharmacist at [phone]. Thank you, Tatiana Garza ilya [facility] Plan of care note * Plan of Care - Kate Benson RN - 06/11/2024 2:52 AM EST Problem: Pain Goal: Patient goal is pain score less than 4, able to rest, and participant in treatment plan as appropriate Description: INTERVENTIONS: 1. Encourage patient or legal appliance service representative to report early pain and ask [...] per policy 9. Teach patient or legal appliance service representative interventions for comforting Outcome: Progressing Note: [...] at the bedside 7. Instruct patient/ patient appliance service representative about use of safety devices 8. Include patient/ patient appliance service representative in decisions related to safety Outcome: [...] hygiene technique. 7. Identify and instruct patient/patient appliance service representative in use of appropriate isolation precautionsfor identified infection/symptoms. 8. Provide and discuss with patient/patient appliance service representative on educational MDRO sheet. 9. Encourage and monitor nutritional status daily and consult aggregate conveyor operator if indicated. 10. Implement neutropenic guidelines as needed. Outcome: Progressing Note: Evaluation of progress towards goal: Patient currently on IV antibiotics Problem: Knowledge Deficit Goal: Patient/patient appliance service representative demonstrates understanding of disease process, treatment [...] Score of =/> 25 or indicated by [facility] Assessment Goal: Patient should be free from fall Description: Interventions: 1. [place] to environment 2. Hourly rounds addressing the [...] non-skid footwear 11. Teach patient and patient appliance service representative to maintain environment for safety and [...] (cane, walker) within reach 19. Request patient appliance service representative bring adaptive equipment/mobility aids from home or obtain and provide as needed 20. Consult pharmacy regarding effects of med's affecting mobility, cognition, and alternatives 21. Obtain physician order for PT if risk factors associated with mobility are present 22. Obtain physician order for OT as appropriate 23. Utilize diversional activities 24. Educate patient and patient appliance service representative how to maintain a safe environment during visitationtimes (notify nurse prior to leaving bedside) 25. Consider appropriateness of medical or non-medical record specialist 26. Set up voiding schedule as [...] supplement as ordered 13. Collaborate with clinical aggregate conveyor operator 14. Include patient/ patient's appliance service representative in decisions related to nutrition Outcome: Completed Note: Evaluation of progress towards goal: Nutritional intake is adequate [facility]02-03-2025 Progress note* Discharge Planning Note - MILLIE [...] arise. - MILLIE CALL 06/10/24 11:43 AM [facility] [employer] [id number] Plan of care note* Plan of Care - Georgina Guillaume - 06/10/2024 9:55 AM EST Problem: Pain Goal: Patient goal is pain score less than 4, able to rest, and participant in treatment plan as appropriate Description: INTERVENTIONS: 1. Encourage patient or legal appliance service representative to report early pain and ask [...] per policy 9. Teach patient or legal appliance service representative interventions for comforting Outcome: Progressing Note: [...] at the bedside 7. Instruct patient/ patient appliance service representative about use of safety devices 8. Include patient/ patient appliance service representative in decisions related to safety Outcome: [...] hygiene technique. 7. Identify and instruct patient/patient appliance service representative in use of appropriate isolation precautionsfor identified infection/symptoms. 8. Provide and discuss with patient/patient appliance service representative on educational MDRO sheet. 9. Encourage and monitor nutritional status daily and consult aggregate conveyor operator if indicated. 10. Implement neutropenic guidelines as needed. Outcome: Progressing Note: Evaluation of progress towards goal: Patient has remained free from infection during hospitalstay. Patient is afebrile and last WBC was 6.7. Will continue using standard precautions and monitoring for signs and symptoms of infection. Problem: Knowledge Deficit Goal: Patient/patient appliance service representative demonstrates understanding of disease process, treatment [...] supplement as ordered 13. Collaborate with clinical aggregate conveyor operator 14. Include patient/ patient's appliance service representative in decisions related to nutrition Outcome: Progressing Note: Evaluation of progress towards goal: Patient appears to have adequate nutritional intake. Problem: Moderate - High Risk Fall Score Description: Bustamante Fall Score of =/> 25 or indicated by [facility] Assessment Goal: Patient should be free from fall Description: Interventions: 1. [place] to environment 2. Hourly rounds addressing the [...] non-skid footwear 11. Teach patient and patient appliance service representative to maintain environment for safety and [...] (cane, walker) within reach 19. Request patient appliance service representative bring adaptive equipment/mobility aids from home or obtain and provide as needed 20. Consult pharmacy regarding effects of med's affecting mobility, cognition, and alternatives 21. Obtain physician order for PT if risk factors associated with mobility are present 22. Obtain physician order for OT as appropriate 23. Utilize diversional activities 24. Educate patient and patient appliance service representative how to maintain a safe environment during visitationtimes (notify nurse prior to leaving bedside) 25. Consider appropriateness of medical or non-medical record specialist 26. Set up voiding schedule as [...] - Rebecca Arredondo RN 06/10/24 11:[address] [facility] [employer] [id number] Nurse Note* Rola Burrell RN - 06/10/2024 [...] it kept coiling and would not advance. [employer] messaged person global implementation manager for urology at 0521. Was not read, no response. Then paged urology at 0630. Waiting for response - Rola Burrell RN 06/10/24 6:[address] [facility] [id number] Plan of care note* Plan of Care - Rola Burrell RN - 06/10/2024 1:53 AM EST Problem: Pain Goal: Patient goal is pain score less than 4, able to rest, and participant in treatment plan as appropriate Description: INTERVENTIONS: 1. Encourage patient or legal appliance service representative to report early pain and ask [...] per policy 9. Teach patient or legal appliance service representative interventions for comforting Outcome: Progressing Note: [...] at the bedside 7. Instruct patient/ patient appliance service representative about use of safety devices 8. Include patient/ patient appliance service representative in decisions related to safety Outcome: [...] hygiene technique. 7. Identify and instruct patient/patient appliance service representative in use of appropriate isolation precautionsfor identified infection/symptoms. 8. Provide and discuss with patient/patient appliance service representative on educational MDRO sheet. 9. Encourage and monitor nutritional status daily and consult aggregate conveyor operator if indicated. 10. Implement neutropenic guidelines as needed. Outcome: Progressing Note: Evaluation of progress towards goal: Scheduling Analyst assessed pt risk for infection in the beginning and throughout shift. Pt remains afebrile. Will continue to monitor. Problem: Knowledge Deficit Goal: Patient/patient appliance service representative demonstrates understanding of disease process, treatment plan,medications, and discharge instructions Description: INTERVENTIONS 1. Complete learning assessment and assess knowledge base 2. Provide teaching at level of understanding 3. Provide teaching via preferred learning method(s) Outcome: Progressing Note: Evaluation of progress towards goal: Scheduling Analyst educated pt on admission disease, medications, treatment, [...] supplement as ordered 13. Collaborate with clinical aggregate conveyor operator 14. Include patient/ patient's appliance service representative in decisions related to nutrition Outcome: [...] Moderate - High Risk Fall Score Description: Tamms Fall Score of =/> 25 or indicated by [facility] Assessment Goal: Patient should be free from fall Description: Interventions: 1. [place] to environment 2. Hourly rounds addressing the [...] non-skid footwear 11. Teach patient and patient appliance service representative to maintain environment for safety and [...] (cane, walker) within reach 19. Request patient appliance service representative bring adaptive equipment/mobility aids from home or obtain and provide as needed 20. Consult pharmacy regarding effects of med's affecting mobility, cognition, and alternatives 21. Obtain physician order for PT if risk factors associated with mobility are present 22. Obtain physician order for OT as appropriate 23. Utilize diversional activities 24. Educate patient and patient appliance service representative how to maintain a safe environment during visitationtimes (notify nurse prior to leaving bedside) 25. Consider appropriateness of medical or non-medical record specialist 26. Set up voiding schedule as appropriate (every 2 hours) Outcome: Progressing Note: Evaluation of progress towards goal: Scheduling Analyst assessed pt fall precautions in the beginning [...] mentation waxes and wanes. Neuro assessments Q4hrs. [facility]02-02-[facility] Plan of care note* Plan of Care - Galina Eaton RN - 06/09/2024 6:46 PM EST Problem: Pain Goal: Patient goal is pain score less than 4, able to rest, and participant in treatment plan as appropriate Description: INTERVENTIONS: 1. Encourage patient or legal appliance service representative to report early pain and ask [...] per policy 9. Teach patient or legal appliance service representative interventions for comforting Outcome: Progressing Note: [...] at the bedside 7. Instruct patient/ patient appliance service representative about use of safety devices 8. Include patient/ patient appliance service representative in decisions related to safety Outcome: [...] hygiene technique. 7. Identify and instruct patient/patient appliance service representative in use of appropriate isolation precautionsfor identified infection/symptoms. 8. Provide and discuss with patient/patient appliance service representative on educational MDRO sheet. 9. Encourage and monitor nutritional status daily and consult aggregate conveyor operator if indicated. 10. Implement neutropenic guidelines as [...] Score of =/> 25 or indicated by [facility] Assessment Goal: Patient should be free from fall Description: Interventions: 1. [place] to environment 2. Hourly rounds addressing the [...] non-skid footwear 11. Teach patient and patient appliance service representative to maintain environment for safety and [...] (cane, walker) within reach 19. Request patient appliance service representative bring adaptive equipment/mobility aids from home or obtain and provide as needed 20. Consult pharmacy regarding effects of med's affecting mobility, cognition, and alternatives 21. Obtain physician order for PT if risk factors associated with mobility are present 22. Obtain physician order for OT as appropriate 23. Utilize diversional activities 24. Educate patient and patient appliance service representative how to maintain a safe environment during visitationtimes (notify nurse prior to leaving bedside) 25. Consider appropriateness of medical or non-medical record specialist 26. Set up voiding schedule as [...] goal: wax/wane with mentation. Q4 neuros checked [facility]02-02-2025 Progress note* PT/OT/PHOTORADIO OPERATOR - JERMAN Jay/Bartolome - 06/09/2024 12:07 PM EST Occupational Therapy Evaluation Discharge Recommendations OT Recommendations : [facility] Comments: Recommend SNF for continued [...] History: Diagnosis Date Abnormal EKG Atrial fibrillation ([facility]) Back pain Bradycardia Chronic atrial fibrillation ([facility]) Hypertension Hypertensive heart disease without heart failure Hypokalemia Pure hypercholesterolemia Urinary tract infection 01/2019 seen by [facility] No past surgical history on file. [...] mobility guidelines Equipment: Gait belt, RW, arenas Telemetry/It Service Technician: Yes Oxygen Used: Room air Other: High [...] Patient will perform bed mobility with Modified Harvey Dates: Start: 06/09/24 Expected End: 07/07/24 Description: Goal Description: Disciplines: OT Problem: Cognition Dates: Start: 06/09/24 Disciplines: OT Goal: Patient's goal is: (specify details) Dates: Start: 06/09/24 Expected End: 07/07/24 Description: Pt will demonstrate good safety awareness 100% of the time Disciplines: OT Problem: Functional Mobility Dates: Start: 06/09/24 Disciplines: OT Goal: Patient will perform functional mobility with Modified Harvey Dates: Start: 06/09/24 Expected End: 07/07/24 Description: [...] Goal: Patient will perform transfers with Modified Harvey Dates: Start: 06/09/24 Expected End: 07/07/24 Description: Goal Description: Disciplines: OT Occupational Therapy Care Plan (Resolved) There are no resolved problems. Principal Problem: Acute encephalopathy [facility]02-02-[facility] Progress note* PT/OT/PHOTORADIO OPERATOR - Sadie Sim PT - 06/09/2024 11:21 AM EST Physical Therapy Evaluation Discharge Recommendations PT Recommendations: [facility] Comments: pt will need SNF [...] status decline resulting from admission 06/07/24 from [place] where he went with afib with RVR and altered mentalstatus. MRI brain without acute findings but chronic infarct post R frontal lobe. Neuro stroke consulted and recommended transfer to [facility]. Diagnosed with acute encphalopathy, afib with RVR [...] History: Diagnosis Date Abnormal EKG Atrial fibrillation ([facility]) Back pain Bradycardia Chronic atrial fibrillation ([facility]) Hypertension Hypertensive heart disease without heart failure Hypokalemia Pure hypercholesterolemia Urinary tract infection 01/2019 seen by [facility] No past surgical history on file. [...] to see Equipment: RW, gait belt, catheter Telemetry/It Service Technician: Yes Oxygen Used: room air Other: pt [...] Patient will perform bed mobility with Modified Harvey Dates: Start: 06/09/24 Expected End: 06/23/24 Description: Goal Description: Disciplines: PT Problem: Gait Dates: Start: 06/09/24 Disciplines: PT Goal: Patient will perform gait with Modified Harvey Dates: Start: 06/09/24 Expected End: 06/23/24 Description: [...] Goal: Patient will perform transfers with Modified Harvey Dates: Start: 06/09/24 Expected End: 06/23/24 Description: Goal Description: Disciplines: PT Physical Therapy Care Plan (Resolved) There are no resolved problems. Principal Problem: Acute encephalopathy [employer] [id number] Progress note* Query Response - Vira Abreu, WATCH REPAIR TECHNICIAN-TRIMMER BU[employer]ING WHEEL - 06/09/2024 9:09 AM EST Query Response [...] signed by: Vira SILVESTRE 06/09/2024 9:07 AM [employer] [facility] Work Phone: [phone]) 241-249202-01-2025 Consult note* Will Renee, NIRMALA - 06/08/2024 7:43 PM ESTAssociated Order(s): IP CONSULT TO NEUROSURGERY Images from the original note were not included. [facility] [address] [place] [address], [address] [place] [address] * NEUROSURGERY CONSULT NOTE DATE:06/08/2024 PATIENT'S NAME: Johnathan Rodney PATIENT'S PATIENT'S : 1955 NEUROSURGERY ATTENDING: Cherise REASON FOR CONSULT Bilateral subdural fluid collections HISTORY OF PRESENT ILLNESS Johnathan Rodney is a 68 y.o. male who presented originally to [facility] on 06/07 for altered mental status and [...] Aureliano Garduno DO, Stopped at 06/08/24 1017 amjjqfzx-criw-MX-calcium &mins (THERAGRAN-M) 9 mg iron-400 mcg tablet [...] hypercholesterolemia Urinary tract infection 01/2019 seen by [facility] No past surgical history on file. [...] - Neurosurgery will continue to follow NABILA [facility] Please contact via Ideabove first then can utilize Patient touch/VoceraEdge if needed 06/08/24 8:03 PM To find out which JAK is on for the day please go to [employer] and use log in [employer] and search for PTH Neurosurgery (JAK and Phone Number is listed) - NIRMALA BEEBE 06/08/24 7:44 PM NIRMALA Beebe 06/08/24[address] [facility] [employer] [id number] Consult note* NIRMALA Beebe - 06/08/2024 7:43 PM ESTAssociated Order(s): IP CONSULT TO NEUROSURGERY Images from the original note were not included. [facility] [address] [place] [address], [address] [place] [address] * NEUROSURGERY CONSULT NOTE DATE:06/08/2024 PATIENT'S NAME: Johnathan Rodney PATIENT'S PATIENT'S : 1955 NEUROSURGERY ATTENDING: Cherise REASON FOR CONSULT Bilateral subdural fluid collections HISTORY OF PRESENT ILLNESS Johnathan Rodney is a 68 y.o. male who presented originally to [facility] on 06/07 for altered mental status and [...] Aureliano Garduno DO, Stopped at 06/08/24 1017 vdpnqize-tnti-AK-calcium &mins (THERAGRAN-M) 9 mg iron-400 mcg tablet [...] mL, 3 mL, intravenous, Q12H TONY, Aureliano Garduno DO, 3 mL at 06/07/242020 sodium [...] hypercholesterolemia Urinary tract infection 01/2019 seen by [facility] No past surgical history on file. [...] [facility] Please contact via Ideabove first then can utilize Patient touch/VoceraEdge if needed 06/08/24 8:03 PM To find out which JAK is on for the day please go to [employer] and use log in [employer] and search for PTH Neurosurgery (JAK and Phone Number is listed) - WILL RENEE APRN-TRIMMER BUFFING WHEEL 06/08/24 7:44 PM NIRMALA Beebe 06/08/242003 * KRYSTYNA Mendoza - 06/07/2024 8:59 AM ESTAssociated Order(s): IP CONSULT TO UROLOGY Images from the original note were not included. Urology Consultation Patient: Johnathan Rodney Date of : 1955 CHIEF COMPLAINT: right hydronephrosis HISTORY OF PRESENT ILLNESS: The patient is a 68 y.o. male who presents as a transfer in from [facility]. Paper records available in hard chart. [...] any abdominal pain, no LUTS. According to [place] records, the family says he reportedly had some abdominal pain when he came in. Denies ever seeing a urologist, no hx of nephrolithiasis in the past. Patient's old records, notes and chart reviewed and summarized above. Past Medical History: Past Medical History: Diagnosis Date Abnormal EKG Atrial fibrillation ([facility]) Back pain Bradycardia Chronic atrial fibrillation ([facility]) Hypertension Hypertensive heart disease without heart failure Hypokalemia Pure hypercholesterolemia Urinary tract infection 01/2019 seen by [facility] Past Surgical History: No past surgical [...] LORazepam OR LORazepam magnesium sulfate magnesium sulfate agziajva-lqjp-XP-calcium &mins potassium chloride OR potassium chloride OR [...] MD at 06/10/2024 2:41 PM EST * Richardson Brandt DO - 06/07/2024 8:44 AM ESTAssociated Order(s): IP CONSULT TO GASTROENTEROLOGY [facility] Initial Gastroenterology/Hepatology Consultation Note IDENTIFYING DATA PATIENT: Johnathan Rodney ADMIT DATE: 06/07/2024 TIME OF EVALUATION: 06/07/2024 8:45 AM Reason for Consult: eval for cirrhosis Requesting Physician: Shawanda Yañez HISTORY OF PRESENT ILLNESS Johnathan Rodney is a 68 y.o. male with a PMH of AFib on Eliquis, HTN, CKD, chronic systolic HF, heavy alcohol use, marijuana use admitted with encephalopathy after presenting to [facility] with altered mental status and hallucinations. Patient [...] hypercholesterolemia Urinary tract infection 01/2019 seen by [facility] No past surgical history on file. [...] Katie Laureen, DO, Stopped at 06/07/24 0733 jltnzyaf-waxy-IO-calcium &mins (THERAGRAN-M) 9 mg iron-400 mcg tablet [...] mg, PRN magnesium sulfate, 4,000 mg, PRN bwunpkri-bfkh-NT-calcium &mins, 1 tablet, Daily PRN potassium chloride, [...] at hospital but thinks he is stillin [place], NAD HEENT: Normocephlic, Atraumatic, No sclera icterus [...] - 5 /hpf IMAGING: Abdominal US at [place] on 06/06/2024- showed normal liver ASSESSMENT AND PLAN Johnathan Rodney is a 68 y.o. male with a PMH of AFib on Eliquis, HTN, CKD, chronic systolic HF, heavy alcohol use, marijuana use admitted with encephalopathy after presenting to [facility] with altered mental status and hallucinations. Reported [...] the care of Johnathan Rodney. [facility] [place] [id number] PH: [phone] NIRMALA Jara 06/07/24 1316 NIRMALA Jara 06/07/24 1316 Attending Attestation: Level of Participation Examined and discussed the patient with JAK Agreement I agree with the JAK's management. Attending Note I reviewed the JAK'sdocumentation and agree with the findings, assessment and plan Richardson Brandt D.O. [facility] [address] [address] PH: [phone] * Demetria Keller DO - 06/07/2024 8:12 [...] and marijuana use who was transferred to [facility] from [facility] for encephalopathy with questionable hallucination, and hyperbilirubinemia. [...] History: Diagnosis Date Abnormal EKG Atrial fibrillation ([facility]) Back pain Bradycardia Chronic atrial fibrillation ([facility]) Hypertension Hypertensive heart disease without heart failure Hypokalemia Pure hypercholesterolemia Urinary tract infection 01/2019 seen by [facility] No past surgical history on file. [...] M Laureen, DO, Stopped at 06/07/24 0733 hocykxcs-lwzf-YS-calcium &mins (THERAGRAN-M) 9 mg iron-400 mcg tablet [...] and marijuana use who was transferred to [facility] from [facility] with AMS and hyperbilirubinemia. General [...] 8:12 AM General Surgery C 6a-6p pager #[phone] 6p-6a pager #[phone] Cosigned by Nicolas Wells MD at 06/07/2024 [...] General Surgery and Minimally Invasive Surgery [address], [address] [place] [address] Office: * Marii Potter MD - 06/07/2024 5:36 AM ESTAssociated Order(s): IP CONSULT TO NEUROLOGY Images from the original note were not included. [facility] Neurology General Neurology Consultation Note Consult Neurology Service: [phone] Primary Team: [facility] Chief Complaint and Reason for Consultation: Altered [...] occult infection. Patient was then transferred to [facility] for further evaluation. On initial examination, [...] disease without heart failure Chronic atrial fibrillation ([facility]) Abnormal EKG Bradycardia Syncope 09/15/2017 Resolved Ambulatory Problems Diagnosis Date Noted Hypertension Past Medical History: Diagnosis Date Atrial fibrillation ([facility]) Back pain Urinary tract infection 01/2019 Family [...] pathological reflexes: Ankle clonus absent. Coordination Right: Bxmqrf-qe-aryh normal.Left: Nmtotp-fh-orko normal. Gait Deferred. Objective Pertinent Labs: No results found for this or any previous visit (from the past 72 hours). Imaging: No results found. Other Testing: PROBLEM LIST: Patient Active Problem List Diagnosis Pure hypercholesterolemia Hypokalemia Hypertensive heart disease without heart failure Chronic atrial fibrillation ([facility]) Abnormal EKG Bradycardia Syncope Acute encephalopathy Assessment: [...] Signed by Marii Potter MD Neurology Resident, [facility] Please contact via secure chat Staffed with: Dr. Marie This patient is being followed by the Neurology Resident service. Contact attending directly during these hours: Monday to 7:30-8:30 A.M. to Monday 12-1:00 p.m. Primary Neurology service: [phone] Consult neurology service: [phone] Resident Stroke Service: [phone] If the patient belongs to the Stroke [...] for: EAG Lab Results Component Value Date [id number] >1,500 (H) 06/07/2024 Neurological work up: CT [...] extrapolated by contextual derivation. documented in this encounterBrattleboro Memorial HospitalUsound02-01-2025 Miscellaneous Notes* Telephone Encounter - NIRMALA Kuhn - 06/08/2024 3:31 PM EST Please arrange for outpatient follow-up for a FibroScan. We are asked to see the patient in the hospital for evaluation of possible cirrhosis. * Telephone Encounter - Sana Palmer RN - 06/08/2024 3:31 PM EST Patient currently admitted. documented in this encounterBrattleboro Memorial HospitalUsound02-01-2025 Telephone encounter Note* Telephone Encounter - NIRMALA Kuhn - 06/08/2024 3:31 PM EST Please arrange for outpatient follow-up for a FibroScan. We are asked to see the patient in the hospital for evaluation of possible cirrhosis. [facility] Work Phone: 1(362) 616-904802-01-2025 Telephone encounter Note* Telephone Encounter - Sana Palmer RN - 06/08/2024 3:31 PM EST Patient currently admitted. [facility] Plan of care note* Plan of Care [...] at the bedside 7. Instruct patient/ patient appliance service representative about use of safety devices 8. Include patient/ patient appliance service representative in decisions related to safety Outcome: Progressing Note: Evaluation of progress towards goal: Patient free from injury, will continue to provide a clean environment, personal objects in reach, and a well light room Problem: Knowledge Deficit Goal: Patient/patient appliance service representative demonstrates understanding of disease process, treatment [...] Score of =/> 25 or indicated by [facility] Assessment Goal: Patient should be free from fall Description: Interventions: 1. [place] to environment 2. Hourly rounds addressing the [...] non-skid footwear 11. Teach patient and patient appliance service representative to maintain environment for safety and [...] (cane, walker) within reach 19. Request patient appliance service representative bring adaptive equipment/mobility aids from home or obtain and provide as needed 20. Consult pharmacy regarding effects of med's affecting mobility, cognition, and alternatives 21. Obtain physician order for PT if risk factors associated with mobility are present 22. Obtain physician order for OT as appropriate 23. Utilize diversional activities 24. Educate patient and patient appliance service representative how to maintain a safe environment during visitationtimes (notify nurse prior to leaving bedside) 25. Consider appropriateness of medical or non-medical record specialist 26. Set up voiding schedule as appropriate (every 2 hours) Outcome: Progressing Note: Evaluation of progress towards goal: Patient free from injury, will continue to provide a clean environment, personal objects in reach, and a well light room [facility]02-01-2025 Progress note* PT/OT/PHOTORADIO OPERATOR - Will Doyle PT - 06/08/2024 11:04 AM EST Physical Therapy PT Type of Visit: Medical deferral Reason For Medical Deferral: Medical procedure ongoing, RN deems inappropriate, Imaging results pending (pt had fall last night and is leaving for stat CT on attempt at eval. will hold at this time) [facility]01-31-2025 Nurse Note* Meaghan Lam RN - 06/07/2024 [...] At 2119 RN called Vito BENEDICTRLucas with [facility] Team G as primary care team. Stat head CT ordered. Neuro assessment and vitals completed per RN. No neuro changes. Patient still A&O X 4, just slow to say the complete year correctly. Primary updated on assessment and Kiki MANCUSO took patient to CT. - Meaghan Lam RN 06/07/24 9:49 PM [facility]01-31-2025 Plan of care note* Plan of Care - Meaghan Lam RN - 06/07/2024 9:00 PM EST Problem: Pain Goal: Patient goal is pain score less than 4, able to rest, and participant in treatment plan as appropriate Description: INTERVENTIONS: 1. Encourage patient or legal appliance service representative to report early pain and ask [...] per policy 9. Teach patient or legal appliance service representative interventions for comforting Outcome: Progressing Note: [...] at the bedside 7. Instruct patient/ patient appliance service representative about use of safety devices 8. Include patient/ patient appliance service representative in decisions related to safety Outcome: [...] hygiene technique. 7. Identify and instruct patient/patient appliance service representative in use of appropriate isolation precautionsfor identified infection/symptoms. 8. Provide and discuss with patient/patient appliance service representative on educational MDRO sheet. 9. Encourage and monitor nutritional status daily and consult aggregate conveyor operator if indicated. 10. Implement neutropenic guidelines as needed. Outcome: Progressing Note: Evaluation of progress towards goal: Patient has remained afebrile. WBC and vital signs monitored. Patient has not shown any additional signs of infection at this time. Problem: Knowledge Deficit Goal: Patient/patient appliance service representative demonstrates understanding of disease process, treatment [...] be free from fall Description: Interventions: 1. [place] to environment 2. Hourly rounds addressing the [...] non-skid footwear 11. Teach patient and patient appliance service representative to maintain environment for safety and [...] (cane, walker) within reach 19. Request patient appliance service representative bring adaptive equipment/mobility aids from home or obtain and provide as needed 20. Consult pharmacy regarding effects of med's affecting mobility, cognition, and alternatives 21. Obtain physician order for PT if risk factors associated with mobility are present 22. Obtain physician order for OT as appropriate 23. Utilize diversional activities 24. Educate patient and patient appliance service representative how to maintain a safe environment during visitationtimes (notify nurse prior to leaving bedside) 25. Consider appropriateness of medical or non-medical record specialist 26. Set up voiding schedule as [...] about disease process, medications, and treatment plan. Scheduling Analyst to update patient throughout the shift regarding plan of care. [facility] [id number] Plan of care note* Plan of Care [...] at the bedside 7. Instruct patient/ patient appliance service representative about use of safety devices 8. Include patient/ patient appliance service representative in decisions related to safety Outcome: Progressing Note: Evaluation of progress towards goal: Patient free from injury, will continue to provide a clean environment, personal objects in reach, and a well light room Problem: Knowledge Deficit Goal: Patient/patient appliance service representative demonstrates understanding of disease process, treatment [...] Score of =/> 25 or indicated by [facility] Assessment Goal: Patient should be free from fall Description: Interventions: 1. [place] to environment 2. Hourly rounds addressing the [...] non-skid footwear 11. Teach patient and patient appliance service representative to maintain environment for safety and [...] (cane, walker) within reach 19. Request patient appliance service representative bring adaptive equipment/mobility aids from home or obtain and provide as needed 20. Consult pharmacy regarding effects of med's affecting mobility, cognition, and alternatives 21. Obtain physician order for PT if risk factors associated with mobility are present 22. Obtain physician order for OT as appropriate 23. Utilize diversional activities 24. Educate patient and patient appliance service representative how to maintain a safe environment during visitationtimes (notify nurse prior to leaving bedside) 25. Consider appropriateness of medical or non-medical record specialist 26. Set up voiding schedule as [...] patient is alert to self and location. 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 He [...] goal: Will need food box at discharge. [facility] [id number] Consult note* KRYSTYNA Mendoza - 06/07/2024 8:59 AM ESTAssociated Order(s): IP CONSULT TO UROLOGY Images from the original note were not included. Urology Consultation Patient: Johnathan Rodney Date of : 1955 CHIEF COMPLAINT: right hydronephrosis HISTORY OF PRESENT ILLNESS: The patient is a 68 y.o. male who presents as a transfer in from [facility]. Paper records available in hard chart. [...] any abdominal pain, no LUTS. According to [facility] records, the family says he reportedly had [...] hypercholesterolemia Urinary tract infection 01/2019 seen by [facility] Past Surgical History: No past surgical [...] LORazepam OR LORazepam magnesium sulfate magnesium sulfate uwnreuoq-ydzr-SX-calcium &mins potassium chloride OR potassium chloride OR [...] Information Photos/Images Abd U/s report impression from [facility] 06/07/2024 08:12 Attached To: Hospital Encounter on [...] -f/u on urine cx -Discuss with Dr. iJn covering days KRYSTYNA Mendoza 06/07/24 0942 Cosigned by Zac Jin MD at 06/10/2024 2:41 PM EST [facility] [employer] [facility] Work Phone: 1([phone]) 141-531801-31-2025 Consult note* Richardson Brandt - 06/07/2024 8:44 AM ESTAssociated Order(s): IP CONSULT TO GASTROENTEROLOGY [facility] Initial Gastroenterology/Hepatology Consultation Note [...] use admitted with encephalopathy after presenting to [facility] with altered mental status and hallucinations. Patient [...] hypercholesterolemia Urinary tract infection 01/2019 seen by [facility] No past surgical history on file. [...] M Laureen, DO, Stopped at 06/07/24 0733 rzzepqff-ohvl-TJ-calcium &mins (THERAGRAN-M) 9 mg iron-400 mcg tablet [...] mg, PRN magnesium sulfate, 4,000 mg, PRN dvoziijn-hzlh-JX-calcium &mins, 1 tablet, Daily PRN potassium chloride, [...] - 5 /hpf IMAGING: Abdominal US at [facility] on 06/06/2024- showed normal liver ASSESSMENT AND PLAN Johnathan Rodney is a 68 y.o. male with a PMH of AFib on Eliquis, HTN, CKD, chronic systolic HF, heavy alcohol use, marijuana use admitted with encephalopathy after presenting to [facility] with altered mental status and hallucinations. Reported [...] the care of Johnathan Rodney. NIRMALA Smith [facility] [place] [id number] PH: [phone] NIRMALA Jara 06/07/24 1316 NIRMALA Jara 06/07/24 1316 Attending Attestation: Level of Participation Examined and discussed the patient with JAK Agreement I agree with the JAK's management. Attending Note I reviewed the JAK'sdocumentation and agree with the findings, assessment and plan Richardson Brandt D.O. [facility] [address] [address] PH: [phone] [employer] Work Phone: 1(749) 863-812401-31-2025 Consult note* Demetria Keller DO - 06/07/2024 [...] and marijuana use who was transferred to [facility] from [facility] for encephalopathy with questionable hallucination, and hyperbilirubinemia. [...] History: Diagnosis Date Abnormal EKG Atrial fibrillation ([facility]) Back pain Bradycardia Chronic atrial fibrillation ([facility]) Hypertension Hypertensive heart disease without heart failure Hypokalemia Pure hypercholesterolemia Urinary tract infection 01/2019 seen by [facility] No past surgical history on file. No Known Allergies Current Facility-Administered Medications: acetaminophen (TYLENOL) tablet 650 mg, 650 mg, oral, Q4H PRN, Aureliano Garduno, cefTRIAXone (ROCEPHIN) IVPB 1000 mg/50 mL in iso-osmotic dextrose (20 mg/mL premix), 1,000 mg, intravenous, Q24H, Aureliano Garduno DO dextrose (GLUTOSE) 40 % gel 15 g, 15 g, oral, PRN, Aureliano Garduon, dextrose 5 % (D5W) infusion, 100 mL/hr, [...] M Laureen, DO, Stopped at 06/07/24 0733 xrfqumfw-esai-MZ-calcium &mins (THERAGRAN-M) 9 mg iron-400 mcg tablet [...] and marijuana use who was transferred to [facility] from [facility] with AMS and hyperbilirubinemia. General [...] 8:12 AM General Surgery C 6a-6p pager #[phone] 6p-6a pager #[phone] Cosigned by Nicolas Wells MD at 06/07/2024 [...] etiology. Doubt gallbladder etiology. Nicolas Wells MD, [facility] General Surgery and Minimally Invasive Surgery [address] [place] [address], [address] [place] [address] Office: [facility]01-31-2025 History and physical note* Aureliano Garduno DO - 06/07/2024 6:00 AM EST Images from the original note were not included. [facility] History & Physical Examination H&P Department of Internal Medicine 06/07/2024 Patient Name: Johnathan Rodney : 1955 No chief complaint on file. HPI Johnathan Rodney is a 68 y.o. male medical history significant for atrial fibrillation, hypertension, chronic systolic heart failure, history of alcohol use disorder, who presented to [facility] for evaluation of altered mentation. Patient history [...] was consulted and they recommended transfer to [facility] for evaluation with potential lumbar puncture. Per chart family was concerned about abdominal discomfort the patient was complaining about prior to hospitalization. Past Medical History: Diagnosis Date Abnormal EKG Atrial fibrillation ([facility]) Back pain Bradycardia Chronic atrial fibrillation ([facility]) Hypertension Hypertensive heart disease without heart failure Hypokalemia Pure hypercholesterolemia Urinary tract infection 01/2019 seen by [facility] No past surgical history on file. [...] (THREE) TIMES A DAY.02/04/21 Yes Crow Andino APRN-TRIMMER BUFFING WHEEL labetaloL (NORMODYNE) 200 mg tablet Take 2 [...] MOUTH EVERY DAY 09/16/21 Yes Vanessa Louie APRN-[employer] reports that he has quit smoking. He [...] has been identified and corrected by editing. [facility] Work Phone: 1([phone]) 257-552801-31-2025 History and physical note* Aureliano Garduno DO - 06/07/2024 6:00 AM EST Images from the original note were not included. [facility] History & Physical Examination H&P Department of Internal Medicine 06/07/2024 Patient Name: Johnathan Rodney : 1955 No chief complaint on file. HPI Johnathan Rodney is a 68 y.o. male medical history significant for atrial fibrillation, hypertension, chronic systolic heart failure, history of alcohol use disorder, who presented to [facility] for evaluation of altered mentation. Patient history [...] was consulted and they recommended transfer to [facility] for evaluation with potential lumbar puncture. Per chart family was concerned about abdominal discomfort the patient was complaining about prior to hospitalization. Past Medical History: Diagnosis Date Abnormal EKG Atrial fibrillation ([facility]) Back pain Bradycardia Chronic atrial fibrillation ([facility]-HCC) Hypertension Hypertensive heart disease without heart failure Hypokalemia Pure hypercholesterolemia Urinary tract infection 01/2019 seen by [facility] No past surgical history on file. [...] MOUTH EVERY DAY 09/16/21 Yes Vanessa Louie APRN-[employer]IM[employer] reports that he has quit smoking. He [...] Acute urinary retention 8. Alcohol use disorder [facility] protocol with p.r.n. Ativan, daily multivitamin [...] and corrected by editing. documented in this encounterHolzer Hospital01-31-2025 Consult note* Marii Potter MD - 06/07/2024 5:36 AM ESTAssociated Order(s): IP CONSULT TO NEUROLOGY Images from the original note were not included. [facility] Neurology General Neurology Consultation Note Consult Neurology Service: [phone] Primary Team: [facility] Chief Complaint and Reason for Consultation: Altered [...] occult infection. Patient was then transferred to [facility] for further evaluation. On initial examination, [...] disease without heart failure Chronic atrial fibrillation ([facility]) Abnormal EKG Bradycardia Syncope 09/15/2017 Resolved Ambulatory Problems Diagnosis Date Noted Hypertension Past Medical History: Diagnosis Date Atrial fibrillation ([facility]) Back pain Urinary tract infection 01/2019 Family [...] pathological reflexes: Ankle clonus absent. Coordination Right: Nhyybh-gb-djwc normal.Left: Dvibnk-yu-jaku normal. Gait Deferred. Objective Pertinent Labs: No results found for this or any previous visit (from the past 72 hours). Imaging: No results found. Other Testing: PROBLEM LIST: Patient Active Problem List Diagnosis Pure hypercholesterolemia Hypokalemia Hypertensive heart disease without heart failure Chronic atrial fibrillation ([facility]) Abnormal EKG Bradycardia Syncope Acute encephalopathy Assessment: [...] Signed by Marii Potter MD Neurology Resident, [facility] Please contact via secure chat Staffed with: Dr. Marie This patient is being followed by the Neurology Resident service. Contact attending directly during these hours: Monday to 7:30-8:30 A.M. to Monday 12-1:00 p.m. Primary Neurology service: [phone] Consult neurology service: [phone] Resident Stroke Service: [phone] If the patient belongs to the Stroke [...] for: EAG Lab Results Component Value Date [id number] >1,500 (H) 06/07/2024 Neurological work up: CT [...] meaning can be extrapolated by contextual derivation. [facility] Work Phone: Evaluation + Plan note No data available for this section [facility] evaluation + Plan note Future Appointments Appointment Date:11/01/2024 10:30:00 AM Scheduled Provider: Location:[facility] Appointment Type:Urology CALL PAT FT Appointment Date:11/04/2024 02:45:00 PM Scheduled Provider: Location:[facility] Appointment Type:Urology FT [facility] evaluation + Plan note Future Appointments Appointment Date:03/05/2025 11:00:00 AM Scheduled Provider:DONAL MCGARRY MD Location:[facility] Appointment Type:URO Office Visit [facility] Evaluation note* Diagnosis Acute encephalopathy- Primary documented in this encounter [facility] System[facility] noteNo assessment information available [facility] Work Phone: Hospital Discharge instructionsNot on filedocumented in this encounterHolzer HospitalHospital Discharge instructions No data available for this section [facility] InstructionsNot on filedocumented in this encounter [facility] SystemProgress note No data available for this section [facility] reason for referral (narrative)* Misc (Routine) - Pending ReviewSpecialtyDiagnoses / ProceduresReferred By ContactReferred To Contact Procedures Adult diet Tabatha León MD [address] [place] [phone] Phone: tel: fax: Referral IDStatusReasonStart DateExpiration DateVisits RequestedVisits [id number] Review/ [facility] HospitalReason for referral (narrative)No reason for referral information availableCherrington Hospital Ctr Work Phone: Reason for visit Narrative* Auth/CertSpecialty Diagnoses / ProceduresReferred By ContactReferred To Contact Diagnoses Acute Encephalopathy [address] [address] Referral IDStatusReasonStart DateExpiration DateVisits RequestedVisits [id number] [facility] Summary Purpose Family History [...] section and content) DATE CREATED AUTHOR 12/19/2018 [facility] DATE CREATED AUTHOR AUTHOR'S ORGANIZ ATION 12/07/2023 [facility] EPIC DATE CREATED AUTHOR AUTHOR'S ORGANIZ ATION 06/12/2024 [facility] DATE CREATED AUTHOR AUTHOR'S ORGANIZ ATION 06/14/2024 [facility] DATE CREATED AUTHOR AUTHOR'S ORGANIZ ATION 12/01/2024 [facility] DATE CREATED AUTHOR AUTHOR'S ORGANIZ ATION 03/07/2025 [facility] Care Teams (unrecognized sec tion and content) Team MemberRelationshipSpecialtyStart DateEnd Date Shaikh Juarez MD PCP - GeneralInternal Medicine05/24/23Team MemberRelationshipSpecialtyStart Date End Date [facility] [address] [place], [place] PCP - Generalmily Medicine01/01/17Team MemberRelationshipSpecialtyStart DateEnd Date [facility] [address] [place], [place] [facility]17 Team Status: Inactive Member Role Status Dates Ramon Sutherland MD Attending Provider Active Sta rt: November 20, 2024 End: November 20, 2024Team MemberRelationshipSpecialtyStart DateEnd Date Shaikh Juarez MD PCP - GeneralInternal Medicine Jaleel Chacon MD PCP - GeneralFamily Medicine12/06/23 Skylar Gustafson NP Nurse PractitionerHumboldt County Memorial Hospitally Medicine12/06/23 Scheduled Active and Recently Administ [...] JAMEE) * 1245 (Stop Bag - Provider: Shazia Haynes, JAMEE) enoxaparin (LOVENOX) syringe 40 mg (CANCELED) 40 mg, subcutaneous, Daily, First dose on Mon06/10/24 at 0900, Look-alike/sound-alike medication - verify indication for use. * 0904 (Given - Provider: Rebecca Arredondo RN) * 0857 (Given - Provider: Shazia aHynes, JAMEE) folic acid (FOLVITE) tablet 1 mg 1 mg, oral, Daily, First dose on Mon06/07/24 at 0900, Look-alike/sound-alike medication - verify indication for use. * 0837 (Given - Provider: Rebecca Arredondo RN) * 0857 (Given - Provider: Shazia Haynes, RN) * 0918 (Given - Provider: Sahzia Haynes, RN) furosemide (LASIX) tablet 40 mg [...] 1400, Hold if blood pressure is greater [id number] mmHg Look-alike/sound-alike medication - verify indication for [...] (Given - Provider: Shazia Haynes, JAMEE) Medication Order//[id number]///09/2024 acetaminophen (TYLENOL) tablet 650 mg 650 mg, [...] medication - verify indication for use. * 3162 (Given - Provider: Shazia Haynes RN) oaulxoym-hdir-GL-calcium &mins (THERAGRAN-M) 9 mg iron-400 mcg tablet [...] mEq. Do not crush or chew. * 5685 (Given - Provider: Shazia Haynes RN) potassium [...] BE BASED ON THE PRIMARY CLINICAL RECORDS. [facility] [employer] [facility]. provides no warranty or guarantee of the accuracy or completeness of information in this document.
[2025-04-06 15:56] LABS: Cast Seen? NONE SEEN #/LPF (NONE SEEN); Crystals Seen? Seen #/HPF (None Seen)
[2025-04-06 15:57] LABS: Urine Culture Indicated YES-FRMC
--- NOTE | 2025-04-06 16:12 | ECG_ITS ---
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 Measurements Intervals [place] Rate: 84 P: -20020 KS: -10839 QRS: 27 QRSD: 132 T: 218 QT: 390 QTc: 431 Interpretive Statements 1210 Atrial fibrillation 2450 Right bundle branch block ST & Twave abnormality, possible anterolateral ischemia or digitalis effect ST & Twave abnormality, possible inferior ischemia or digitalis effect 9150 abnormal ECG Compared to ECG 04/06/2025 13:13:43 ST (T wave) deviation is less evident in anterolateral Possible ischemia still present Electronically Signed On 04-06-2025 18:47:35 EST by NENITA BRAN M.D.
[2025-04-06] MEDS: FUROSEMIDE 40 MG/4 ML VIAL IVP (16:31)
[2025-04-06 16:46] LABS: Ferritin 30.0 ng/mL (26.0-388.0)
[2025-04-06 17:17] LABS: Iron 18.0 ug/dL (65.0-175.0); Percent Iron Saturation 4.5 %; Total Iron Binding Capacity 397.0 ug/dL (250.0-450.0)
[2025-04-06] MEDS: CARVEDILOL 12.5 MG TABLET PO (21:15)
[2025-04-06] MEDS: APIXABAN 5 MG TABLET PO (21:15)
[2025-04-06] MEDS: PANTOPRAZOLE SODIUM 40 MG TABLET.DR PO (21:15)
[2025-04-07] VITALS (26 sets, daily range): BP systolic 99–125; BP diastolic 74–90; PULSE 58–112; TEMP 36.5–36.7; O2SAT 93–99
--- NOTE | 2025-04-07 04:47 | PC.NURSE ---
XLG soft BM - sample sent to lab for occult analysis
[2025-04-07 06:08] LABS: Hematocrit 26.0 % (42.0-54.0); Hemoglobin 7.4 g/dL (14.0-18.0); Immature Granulocytes Abs Auto 0.02 10^3/uL (0.00-0.03); Immature Granulocytes Pct Auto 0.3 % (0.0-0.5); Lymphocytes Absolute Auto 0.6 10^3/uL (1.2-3.8); Mean Corpuscular HGB Conc 28.5 g/dL (29.9-35.2); Mean Corpuscular Hemoglobin 19.5 pg (25.9-34.0); Mean Corpuscular Volume 68.6 fL (80.0-94.0); Platelet Count 414 10^3/uL (150-450); Red Blood Count 3.79 10^6/uL (4.70-6.10); White Blood Count 6.0 10^3/uL (4.0-11.0)
[2025-04-07 06:36] LABS: Alanine Aminotransferase 20 U/L (16-63); Albumin Globulin Ratio 0.7; Albumin Level 2.5 g/dL (3.4-5.0); Alkaline Phosphatase 103 U/L (46-116); Anion Gap 12.9; Aspartate Amino Transferase 18 U/L (15-37); Blood Urea Nitrogen 32.0 mg/dL (7.0-18.0); Calcium 8.1 mg/dL (8.5-10.1); Carbon Dioxide 26.0 mmol/L (21.0-32.0); Chloride 109 mmol/L (98-107); Cholesterol 76 mg/dL (<=200); Estimated GFR (African America 43 (>=60 mL/min/1.73m^2); Estimated GFR (Non-African Ame 35 (>=60 mL/min/1.73m^2); Globulin 3.7 g/dL; Glucose 112 mg/dL (74-106); HDL Cholesterol 32 mg/dL (40-60); Magnesium 1.8 mg/dL (1.8-2.4); Potassium 3.9 mmol/L (3.5-5.1); Sodium 144 mmol/L (136-145); Thyroid Stimulating Hormone 2.310 uIU/mL (0.358-3.740); Total Protein 6.2 g/dL (6.4-8.2); Triglycerides 25 mg/dL (<=150); VLDL CHOLESTEROL 5.0 mg/dL
[2025-04-07 06:39] LABS: Folate 11.40 ng/mL (8.60-58.90)
--- NOTE | 2025-04-07 08:00 | ECG_ITS ---
The [facility] Test Date: 2025-04-07 Pat Name: OXANA JOYA Department: Room: 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 Measurements Intervals [place] Rate: 72 P: -33690 DC: -17973 QRS: 23 QRSD: 132 T: 196 QT: 450 QTc: 473 Interpretive Statements 1210 Atrial fibrillation 2450 Right bundle branch block 59521 Twave abnormality, possible anterolateral ischemia or digitalis effect 76639 Twave abnormality, possible inferior ischemia or digitalis effect 7300 Indeterminate axis 9150 abnormal ECG Compared to ECG 04/06/2025 17:20:16 Indeterminate axis now present Possible ischemia still present Electronically Signed On 04-07-2025 7:11:04 EST by NENITA BRAN M.D.
--- NOTE | 2025-04-07 08:40 | CM.NOTE ---
Rounds made with Dr. Kenny, discussed plan of care with pt. PT and OT will evaluate pt for discharge planning.
[2025-04-07] MEDS: FUROSEMIDE 40 MG TABLET PO (08:53)
[2025-04-07] MEDS: THIAMINE MONONITRATE (VIT B1) 100 MG TABLET PO (08:53)
[2025-04-07] MEDS: CARVEDILOL 12.5 MG TABLET PO ×2 (08:53→21:58)
[2025-04-07] MEDS: FOLIC ACID 1 MG TABLET PO (08:53)
[2025-04-07] MEDS: ATORVASTATIN CALCIUM 40 MG TABLET PO (08:53)
[2025-04-07] MEDS: POTASSIUM CHLORIDE 10 MEQ ER TABLET 20 MEQ PO (08:53)
[2025-04-07] MEDS: PANTOPRAZOLE SODIUM 40 MG TABLET.DR PO ×2 (08:53→21:58)
[2025-04-07] MEDS: TAMSULOSIN HCL 0.4 MG CAPSULE PO (08:53)
[2025-04-07] MEDS: PNEUMOC 20-VAL CONJ-DIP CRM/PF 0.5 ML SYRINGE IM (08:54)
[2025-04-07] MEDS: FLU VACC TS2025-26(65YR UP)/PF 180 MCG/0.5 ML SYRINGE IM (08:54)
--- NOTE | 2025-04-07 11:27 | PM.HP ---
HPI H&P: HPI History of Present Illness Chief complaint: A fib dvd Narrative: Mr. Rodney is a 69-year-old gentleman with a known history of A-fib. The patient came in with shortness of breath and not feeling well. He was found to have A-fib with RVR. The patient admitted that he has not been taking his medication as he used to. No chest pain. No abdominal pain. No nausea or vomiting. Patient was started on Cardizem drip. His heart rate came down below 75 around 2 AM. Cardizem drip was discontinued. His hemoglobin is low. Patient denies any bloody stool. Stool Hemoccult is negative. Opioid HPI Opioid Management Most Recent Pain and Opioid Data: Last Pain Scale 2 Today, 09:26 Last Pain Intensity 2 Today, 09:26 Last Pain Assessment Today, 11:15 Last ORT Total Score 0 04/06/25, 15:44 Last ORT Risk Category Low Risk 04/06/25, 15:44 Ur Phencyclidine Scrn, (NEGATIVE) Negative 06/05/24, 17:40 Review of Systems ROS Status of ROS 10 or more systems reviewed and unremarkable except as noted in history and below [facility] Medical History (Updated 04/06/25 @ 15:00 by Ashish Jules MD) Confusion ?R41.0 - Disorientation, unspecified (ICD-10) Atrial fibrillation with RVR ?I48.91 - Unspecified atrial fibrillation (ICD-10) Atrial fibrillation with rapid ventricular response ?I48.91 - Unspecified atrial fibrillation (ICD-10) Edema, peripheral ?R60.0 - Localized edema (ICD-10) CHF (congestive heart failure) ?I50.9 - Heart failure, unspecified (ICD-10) Atrial fibrillation ?I48.91 - Unspecified atrial fibrillation (ICD-10) Hypertension ?I10 - Essential (primary) hypertension (ICD-10) Family History (Updated 05/16/23 @ 17:14 by Yoana Rapp) Father Family history of stroke Social History Smoking status: Never smoker Highest level of school completed/degree received: 9th grade Little interest or pleasure in doing things: several days Feeling down, depressed, or hopeless: several days Do you think of yourself as: straight/heterosexual Gender Identity: male Justinos Home Medications and Allergies Home Medications ?Medication ?Instructions ?Recorded ?Confirmed ?Type apixaban 5 mg tablet (Eliquis) 5 mg PO BID 04/06/25 04/06/25 History atorvastatin 40 mg tablet 40 mg PO DAILY 04/06/25 04/06/25 History carvedilol 12.5 mg tablet 12.5 mg PO BID 04/06/25 04/06/25 History folic acid 1 mg tablet 1 mg PO DAILY 04/06/25 04/06/25 History furosemide 40 mg tablet 40 mg PO DAILY 04/06/25 04/06/25 History lactulose 10 gram/15 mL oral 15 ml PO DAILY 04/06/25 04/06/25 History solution potassium chloride 10 mEq 20 meq PO DAILY 04/06/25 04/06/25 History capsule,extended release tamsulosin 0.4 mg capsule 0.4 mg PO DAILY 04/06/25 04/06/25 History thiamine HCl (vitamin B1) 100 mg 100 mg PO DAILY 04/06/25 04/06/25 History tablet (Vitamin B-1) Allergies Allergy/AdvReac Type Severity Reaction Status Date / Time No Known Drug Allergies Allergy Verified 03/26/23 04:32 Exam Narrative Exam Narrative: [pt is awake and alert. oriented to place, time and person HEENT: [place] conjunctiva and NL buccal mucosa Neck: Supple, no tenderness Endocrine: No Thyromegaly. Vascular: No JVD or carotid bruit. Lymphatic: No cervical lymphadenopathy. Chest: Fine crackles Heart irregular rate and rhythm, no extra sound or murmur. Abd: Soft, no tenderness, no rebound and no rigidity. Increase abd girth therefore clinically I could not exclude the possibility of intra abd mass or organomegaly. LE: No cyanosis or clubbing, no varices. Trace edema Neuro: A A O. Nl speech, comprehension and attention. Nl and symetrical motor and tone examination through out. []] Constitutional Vital Signs, click to edit/add: Last Vital Signs Temp 98.0 F 04/07/25 07:18 Pulse 70 04/07/25 10:00 Resp 18 04/07/25 07:18 BP 121/82 04/07/25 07:18 Pulse Ox 95 04/07/25 09:28 O2 Del Method Room Air 04/07/25 09:28 Results Labs Labs: Short CBC 04/06/25 04/07/25 Range/Units 13:20 05:44 WBC 6.8 6.0 (4.0-11.0) 10^3/uL Hgb 8.6 L 7.4 L (14.0-18.0) g/dL Hct 30.5 L 26.0 L (42.0-54.0) % Plt Count 484 H 414 (150-450) 10^3/uL BMP 04/06/25 04/07/25 13:20 05:44 Sodium 142 144 Potassium 3.9 3.9 Chloride 105 109 H Carbon Dioxide 25.3 26.0 BUN 31.0 H 32.0 H Creatinine 1.93 H 1.89 H Glucose 118 H 112 H Calcium 8.8 8.1 L Liver Function 04/07/25 Range/Units 05:44 Total Bilirubin 1.0 (0.2-1.0) mg/dL AST 18 (15-37) U/L ALT 20 (16-63) U/L Alkaline Phosphatase 103 (46-116) U/L Albumin 2.5 L (3.4-5.0) g/dL Urine 04/06/25 Range/Units 15:00 Urine Color Lt. yellow (YELLOW) Urine Clarity Sl cloudy (CLEAR) Urine pH 6.0 (5.0-9.0) Ur Specific [place] 1.020 (1.005-1.025) Urine Protein 30 A (NEG/TRACE) mg/dL Urine Glucose (UA) Negative (NEGATIVE) mg/dL Assessment and Plan Assessment and Plan (1) Atrial fibrillation with RVR: Plan A-fib with RVR. ST depression. Troponin is negative X2, elevated BNP. Mild element of diastolic heart failure secondary to RVR and patient not taking Lasix at home. Patient admitted that he has not been taking his medication at home for 2 weeks Patient was started on Cardizem drip which was discontinued around 2 AM on 04/07 after his heart rate to drop below 75. I started him on oral Coreg Requested echocardiogram. Holding Eliquis due to anemia with a hemoglobin drop. Replace it with Lovenox adjusted therapeutic dose in case we have to stop her to reverse it. Requested cardiac consultation. Consideration for antiarrhythmic Clinically there is no clinical evidence of acute coronary syndrome or acute plaque rupture. Patient likely has underlying CAD. Consideration for ischemic evaluation to be addressed by cardiology. UTI Urine and blood cultures are pending Started patient on ceftriaxone. Anemia, no evidence of acute blood loss. This could be related to is a CKD. Patient denies any hematemesis or melena. Stool Hemoccult is negative. Requested iron study which came back consistent with iron deficiency. Patient likely has mixed etiology anemia secondary to iron deficiency and CKD. I started patient on intravenous iron infusion. I started patient on PPI. I held his Eliquis and instead started him on Lovenox therapeutic dose adjusted for CKD in case we have to stop it or reverse at the. Check H&H every 8 hours. Patient will likely require to have anemia workup to be done in the outpatient setting to be handled by PCP in collaboration with other needed outpatient providers. This may include but not limited to EGD, colonoscopy, referral to see hematology and other needed age-appropriate cancer screening. CKD stage III dating back all the way to 2022 which is the oldest record we have at [facility] Continue gentle diuresis. Keep patient in euvolemic state Patient will need to follow-up with nephrology. Consideration to initiate SGLT to halt the progression of renal failure. He may need SGLT if echo showed systolic dysfunction. Ongoing alcohol consumption likely according to patient. Suspect element of alcohol dependency. Continue folic and thiamine supplementation to reduce his risk having [place] or [place] Watch for potential withdrawal syndrome. Chronic, subacute medical conditions not listed above, abnormal labs and imaging, incidental findings seen on labs and or imaging. These would need to be addressed. Could be addressed later on or in the outpatient setting by PCP collaboration with other needed outpatient providers when time and condition are appropriate. Urinary Catheter Management Urinary Catheter Management Urethral: Cath placed during this visit: no
--- NOTE | 2025-04-07 11:40 | CM.NOTE ---
Important Message From Medicare discussed with pt, pt verbalizes understanding and signs paper. Original given to pt and copy placed in pt's chart.
[2025-04-07 14:20] LABS: Hematocrit 27.3 % (42.0-54.0); Hemoglobin 7.8 g/dL (14.0-18.0)
[2025-04-07] MEDS: IRON SUCROSE COMPLEX 200 MG in 0.9 % SODIUM CHLORIDE 100 ML 220 MG IV (14:27)
--- NOTE | 2025-04-07 15:35 | SWNOTE1 ---
JEN called and spoke to pt's daughter, Maame, over the phone. JEN explained that SW helps with discharge planning. SW let her know that pt did well with therapy and walked 200 feet without a device and at this point therapy is recommending home health services. Pt's daughter voiced she does do HH as her job. Pt's daughter asked SW about assisted living and if insurance covered AL? SW explained that Medicare and HMO's do not cover assisted living. Medicaid would cover AL, but pt would have to qualify. They would have to complete the application and submit to [employer]. JEN advised that not all AL or LTC facilities accept Medicaid. SW did ask about his finances. She voiced he does have some money in checking and he does own his property, but he would sign that off to her and her brother. SW did explain that Medicaid would go back 5 or 6 years to check on property. SW did let her know that would be the first step is applying. SW to leave Medicaid emiliano in pt's room. JEN explained to pt's daughter that SW will likely not be able to place pt at AL or LTC unless they have the funds to pay out of pocket or can prove that pt qualifies for Medicaid. JEN asked if pt could live with her or her brother for the time being? 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 JEN did mention to her that they could pay for private caregivers and get home health in. She again voiced that if HH is recommended that pt will want her to be the one that does the home health services. At this time it was decided that JEN will leave Medicaid emiliano in room and Maame is going to speak with her brother. JEN offered to speak with both of them tomorrow if needed.
[2025-04-07] MEDS: FUROSEMIDE 20 MG/2 ML VIAL IVP (16:24)
--- NOTE | 2025-04-07 16:25 | CA_ITS ---
Patient Name: OXANA JOYA MR#: [id number] : 1955 Exam Date: 04/07/2025 Ordering Doctor: ALFONSO CHAVEZ ECHOCARDIOGRAM REPORT PROCEDURE: CA ECHO DOPPLER COMPLETE INDICATIONS: A fib, congestive heart failure, hypertension COMPARISON: None. DESCRIPTION: COMPLETE ECHOCARDIOGRAM Real-time transthoracic echocardiography with 2D, M-mode, spectral and color flow Doppler performed. QUALITY: Technical quality was good. LEFT VENTRICLE: Normal chamber size. Moderate concentric left ventricular hypertrophy. There is global hypokinesis. Systolic function is mildly reduced. Estimated left ventricular ejection fraction is 40-45%. LV EF: Mildly reduced left ventricular ejection fraction, (40-50%). DIASTOLIC: Not adequately assessed due to heart rhythm. ATRIAL SEPTUM: Visually appears intact. LEFT ATRIUM: Severe dilatation. RIGHT ATRIUM: Severe dilatation. RIGHT VENTRICLE: Mild dilatation. Mildly reduced right ventricular systolic function. TRICUSPID VALVE: Normal mobility and thickness. No stenosis with mild to moderate regurgitation. Doppler studies reveal mildly (35-45) elevated right sided pressures. RVSP 38 mmHg MITRAL VALVE: Normal mobility and thickness. No evidence of mitral valve stenosis. Mild mitral annular calcification. Mild mitral regurgitation. AORTIC VALVE: Normal trileaflet appearance. Mildly calcified aortic valve. Normal leaflet mobility. No evidence of aortic valve stenosis. Mild aortic regurgitation. AORTIC ROOT: Normal diameter and appearance, measuring 3.8 cm. PULMONIC VALVE: Normal thickness and mobility. No stenosis. No regurgitation. PERICARDIUM: No evidence of pericardial effusion. IVC: IVC is dilated (3.0 cm) with no collapse. PLEURA: CONCLUSION: 1. Moderate concentric left ventricular hypertrophy with mildly reduced systolic function. There is global hypokinesis. Estimated LVEF is 40 to 45%. 2. Mildly dilated right ventricle with mildly reduced systolic function. 3. Severe biatrial dilatation. 4. Mild mitral and aortic regurgitation. 5. Mild to moderate tricuspid regurgitation. 6. Mildly elevated right-sided pressures. Adult Echocardiography Procedure Report Left Ventricle LVEDD (3.7 - 5.6 cm): 5.16 cm LVESD (2.2 - 4.0 cm): 4.21 cm LVIVS thickness (0.6 - 1.2 cm): 1.27 cm LVPW thickness (0.5 - 1.0 cm): 1.37 cm LVOT Max Gradient: 1.20 mm[Hg], 1.06 mm[Hg] LVOT Area (cm2): 0.53 m/s Peak Velocity (LVOT): 0.55 m/s, 0.51 m/s LVOT Diameter 2.17 cm Left Ventricular Ejection Fraction: 40-45 % Left Atrium LA Volume Index (2D A2C): 99.08 ml/m2 Left Atrium Systolic Dimension: 5.16 cm Mitral Valve Mitral Valve E-Wave Peak Velocity: 0.79 m/s Right Ventricle Aorta AO Root Diam: 3.78 cm Aortic Valve AoV Area (Peak Mahin): 1.52 cm2, 1.66 cm2, 1.39 cm2 Peak Velocity(Antegrade Flow): 1.22 m/s, 1.37 m/s Peak Gradient(Antegrade Flow): 5.95 mm[Hg], 7.48 mm[Hg] Tricuspid Valve Peak Velocity (Regurgitant Flow): 2.36 m/s, 2.41 m/s Pulmonic Valve Peak Velocity: 0.67 m/s Peak Gradient: 2.28 mm[Hg], 1.38 mm[Hg] Right Atrium Right Atrium Systolic Pressure: 107.71 ml, 107.71 ml Dictated by: Mkiel Camarillo M.D. on 04/08/2025 at 17:01 Approved by: Mikel Camarillo M.D. on 04/08/2025 at 17:07
--- NOTE | 2025-04-07 18:54 | PM.CACN ---
History of Present Illness History of Present Illness Consult date: 04/07/25 Requesting physician: Iman Kenny Consult reason: atrial fibrillation Chief complaint: A fib dvd Narrative: Mr. Rodney presented to the ER with symptoms of feeling sick . For a month he has had fatigue. Usually he will ride his bike 2 miles and do yard work. Now SOB. He states takes meds, sometimes I skip . He drinks a tall boy of beer a day and no more. Lives alone, his of diabetes and he eats mostly sandwiches. Review of Systems ROS Status of ROS 10 or more systems reviewed and unremarkable except as noted in history and below [facility] Medical History (Updated 04/07/25 @ 19:08 by LOVE MARTINES MD) Confusion ?R41.0 - Disorientation, unspecified (ICD-10) Atrial fibrillation with RVR ?I48.91 - Unspecified atrial fibrillation (ICD-10) Atrial fibrillation with rapid ventricular response ?I48.91 - Unspecified atrial fibrillation (ICD-10) Edema, peripheral ?R60.0 - Localized edema (ICD-10) CHF (congestive heart failure) ?I50.9 - Heart failure, unspecified (ICD-10) Atrial fibrillation ?I48.91 - Unspecified atrial fibrillation (ICD-10) Hypertension ?I10 - Essential (primary) hypertension (ICD-10) Family History (Updated 04/07/25 @ 17:39 by Lottie Bales RN) Father Family history of stroke Sister Family history of cancer Social History Smoking status: Never smoker Highest level of school completed/degree received: 9th grade Little interest or pleasure in doing things: several days Feeling down, depressed, or hopeless: several days Do you think of yourself as: straight/heterosexual Gender Identity: male Meds Home Medications and Allergies Home Medications ?Medication ?Instructions ?Recorded ?Confirmed ?Type apixaban 5 mg tablet (Eliquis) 5 mg PO BID 04/06/25 04/06/25 History atorvastatin 40 mg tablet 40 mg PO DAILY 04/06/25 04/06/25 History carvedilol 12.5 mg tablet 12.5 mg PO BID 04/06/25 04/06/25 History folic acid 1 mg tablet 1 mg PO DAILY 04/06/25 04/06/25 History furosemide 40 mg tablet 40 mg PO DAILY 04/06/25 04/06/25 History lactulose 10 gram/15 mL oral 15 ml PO DAILY 04/06/25 04/06/25 History solution potassium chloride 10 mEq 20 meq PO DAILY 04/06/25 04/06/25 History capsule,extended release tamsulosin 0.4 mg capsule 0.4 mg PO DAILY 04/06/25 04/06/25 History thiamine HCl (vitamin B1) 100 mg 100 mg PO DAILY 04/06/25 04/06/25 History tablet (Vitamin B-1) Allergies Allergy/AdvReac Type Severity Reaction Status Date / Time No Known Drug Allergies Allergy Verified 03/26/23 04:32 Exam Constitutional Vital Signs, click to edit/add: Last Vital Signs Temp 97.7 F 04/07/25 12:27 Pulse 78 04/07/25 17:35 Resp 16 04/07/25 16:27 BP 125/88 04/07/25 16:27 Pulse Ox 95 04/07/25 16:27 O2 Del Method Room Air 04/07/25 16:27 Documenting provider has reviewed patient's vital signs: yes Common normals: no apparent distress, average body habitus and oriented x3 General appearance: cooperative and comfortable Orientation/consciousness: Yes awake, Yes oriented to person, Yes oriented to place and Yes oriented to time Neck & C-Spine Common normals: full ROM Carotids: normal carotid upstroke Chest Common normals: inspection of chest normal Respiratory Common normals: normal respiratory effort Auscultation: clear to auscultation bilaterally Percussion: percussion normal Cardio Common normals: no JVD (5 cm) Rate: other (variable S1) Peripheral pulses: pulses 2+ throughout Extremity Other: pitting edema to knees. On RLE there is a healing wound about 0.5 cm diameter inner lower aspect hit during mowing Neuro Common normals: oriented x3 Sensorium/orientation: awake, alert and oriented to person Results Labs and Meds Lab results: Cardiac Enzymes 04/07/25 Range/Units 05:44 AST 18 (15-37) U/L Lipids 04/07/25 Range/Units 05:44 Triglycerides 25 (<=150) mg/dL Cholesterol 76 (<=200) mg/dL HDL Cholesterol 32 L (40-60) mg/dL Cholesterol/HDL Ratio 2.4 CBC 04/07/25 04/07/25 Range/Units 05:44 14:10 WBC 6.0 (4.0-11.0) 10^3/uL RBC 3.79 L (4.70-6.10) 10^6/uL Hgb 7.4 L 7.8 L (14.0-18.0) g/dL Hct 26.0 L 27.3 L (42.0-54.0) % Plt Count 414 (150-450) 10^3/uL Neut # (Auto) 4.6 (1.4-6.5) 10^3/uL Lymph # (Auto) 0.6 L (1.2-3.8) 10^3/uL Piatt # (Auto) 0.6 (0.3-0.8) 10^3/uL Eos # (Auto) 0.2 (0.0-0.7) 10^3/uL Baso # (Auto) 0.1 (0.0-0.1) 10^3/uL Comprehensive Metabolic Panel 04/07/25 Range/Units 05:44 Sodium 144 (136-145) mmol/L Potassium 3.9 (3.5-5.1) mmol/L Chloride 109 H (98-107) mmol/L Carbon Dioxide 26.0 (21.0-32.0) mmol/L BUN 32.0 H (7.0-18.0) mg/dL Creatinine 1.89 H (0.70-1.30) mg/dL Glucose 112 H (74-106) mg/dL Calcium 8.1 L (8.5-10.1) mg/dL AST 18 (15-37) U/L ALT 20 (16-63) U/L Alkaline Phosphatase 103 (46-116) U/L Total Protein 6.2 L (6.4-8.2) g/dL Albumin 2.5 L (3.4-5.0) g/dL Intake and Output 04/07/25 04/07/25 04/07/25 07:59 15:59 23:59 Intake Total 1060.083 / 1110.083 470 / 520 50 / 520 Output Total 2300 / 3150 2000 / 4100 2100 / 4100 Balance -1239.917 / -2039.917 -1530 / -3580 -2049 / -3580 Intake: Oral 1000 / 1000 360 / 360 IV 60.083 / 110.083 110 / 160 50 / 160 Ceftriaxone 1,000 mg In 0.9 % 50 / 50 Sodium Chloride 50 ml @ 100 mls /hr IV Q24H TONY Rx#:[id number] Iron Sucrose Complex 200 mg In 110 / 110 0.9 % Sodium Chloride 100 ml @ 220 mls/hr IV DAILY TONY Rx#: [id number] dilTIAZem HCL 125 mg In 0.9 % 60.083 / 60.083 Sodium Chloride 100 ml @ 5 MG/ HR 5 mls/hr IV TITR TONY Rx#: [id number] Output: Urine Amount (Catheter) 2300 / 3150 2000 / 4100 2100 / 4100 Urethral 2300 / 3150 2000 / 4100 2100 / 4100 Other: # Bowel Movements 1 Imaging and Cardiology ECG results: other (atrial fibrillation with anterolateral STT wave changes. When compared to prior EKG 06/01, no significant changes seen) EKG Interpretation ECG shows: atrial fibrillation Assessment and Plan Assessment and Plan (1) Atrial fibrillation with RVR: (2) Cardiomyopathy: Qualifiers: Cardiomyopathy type: unspecified Qualified Code(s): I42.9 - Cardiomyopathy, unspecified (3) Heart failure with reduced ejection fraction, NYHA class III: Plan Mr. Rodney has long-standing atrial fibrillation and reduced ejection fraction (EF 40% noted at least once). He has taken meds inconsistently and presents today with shortness of breath and atrial fibrillation with markedly elevated BNP. Medical non-compliance in addition to high salt diet (lives alone) may be contributing factors. Echocardiogram is pending to evaluate EF. Of note, I cannot find where he has had an ischemic evaluation and with long-standing STT wave changes and if EF low, this may be warranted at some point. However, his anemia and CKD make an invasive assessment at increased risk. Would at least check one troponin now which I have ordered.
[2025-04-07 19:29] LABS: Hematocrit 28.2 % (42.0-54.0); Hemoglobin 8.0 g/dL (14.0-18.0)
[2025-04-07] MEDS: ENOXAPARIN SODIUM 40 MG/0.4 ML SYRINGE SUBQ (21:59)
[2025-04-07] MEDS: THIAMINE MONONITRATE (VIT B1) 100 MG TABLET 200 MG PO (21:59)
[2025-04-08] VITALS (22 sets, daily range): BP systolic 95–144; BP diastolic 64–102; PULSE 58–116; TEMP 36.9–37.2; O2SAT 93–99
[2025-04-08 03:07] LABS: Vitamin B12 1014 pg/mL (232-1245)
[2025-04-08 05:52] LABS: Hematocrit 27.6 % (42.0-54.0); Hemoglobin 7.9 g/dL (14.0-18.0); Mean Corpuscular HGB Conc 28.6 g/dL (29.9-35.2); Mean Corpuscular Hemoglobin 19.3 pg (25.9-34.0); Mean Corpuscular Volume 67.3 fL (80.0-94.0); Platelet Count 424 10^3/uL (150-450); Red Blood Count 4.10 10^6/uL (4.70-6.10); White Blood Count 6.8 10^3/uL (4.0-11.0)
[2025-04-08 06:04] LABS: Anion Gap 10.6; Blood Urea Nitrogen 29.0 mg/dL (7.0-18.0); Calcium 8.2 mg/dL (8.5-10.1); Carbon Dioxide 27.8 mmol/L (21.0-32.0); Chloride 105 mmol/L (98-107); Estimated GFR (African America 46 (>=60 mL/min/1.73m^2); Estimated GFR (Non-African Ame 38 (>=60 mL/min/1.73m^2); Glucose 103 mg/dL (74-106); Potassium 3.4 mmol/L (3.5-5.1); Sodium 140 mmol/L (136-145)
--- NOTE | 2025-04-08 07:00 | US_ITS ---
The [address] [address] Patient Name: OXANA JOYA MRN: [id number] date: 1955 Sex: M Assigned Patient Location: Current Patient Location: Accession/Order Number: [id number] Exam Date: 04/08/2025 07:20 Report Date: 04/08/2025 08:29 At the request of: ALFONSO CHAVEZ MD Procedure: US renal BI BILATERAL RENAL AND BLADDER ULTRASOUND CLINICAL HISTORY: Acute on chronic kidney disease. COMPARISON: 06/06/2024 Estimation of renal size is approximately 10.3 cm on the right and 8.3 cm on the left. An echogenic focus with twinkle artifact is seen at the superior pole of the left kidney measuring 3 mm. This might be a stone. No hydronephrosis is identified. A right mid pole renal cyst is present measuring 2.1 x 2.6 x 2.0 cm in size. There is no perinephric fluid. The urinary bladder contains a Arenas catheter and is not distended for evaluation. US/US renal BI IMPRESSION: NO OBSTRUCTIVE UROPATHY. RIGHT RENAL CYST AND POSSIBLE LEFT RENAL STONE. Impression dictated by: An Abbott M.D. 04/08/2025 8:29 AM Dictation Location: [place] [address] Electronically authenticated by: [id number] Y Date: 04/08/2025 08:29
[2025-04-08] MEDS: ATORVASTATIN CALCIUM 40 MG TABLET PO (08:49)
[2025-04-08] MEDS: IRON SUCROSE COMPLEX 200 MG in 0.9 % SODIUM CHLORIDE 100 ML 220 MG IV (08:49)
[2025-04-08] MEDS: ENOXAPARIN SODIUM 40 MG/0.4 ML SYRINGE SUBQ ×2 (08:49→21:44)
[2025-04-08] MEDS: PANTOPRAZOLE SODIUM 40 MG TABLET.DR PO ×2 (08:49→21:43)
[2025-04-08] MEDS: POTASSIUM CHLORIDE 10 MEQ ER TABLET 20 MEQ PO (08:50)
[2025-04-08] MEDS: FOLIC ACID 1 MG TABLET PO (08:50)
[2025-04-08] MEDS: FUROSEMIDE 40 MG TABLET PO (08:50)
[2025-04-08] MEDS: CARVEDILOL 12.5 MG TABLET PO ×2 (08:50→21:43)
[2025-04-08] MEDS: THIAMINE MONONITRATE (VIT B1) 100 MG TABLET 200 MG PO ×2 (08:50→21:43)
[2025-04-08] MEDS: TAMSULOSIN HCL 0.4 MG CAPSULE PO (08:50)
--- NOTE | 2025-04-08 09:15 | CM.NOTE ---
Rounds made with Dr. Kenny, discussed plan of care with pt. No discharge today, continue treatment as ordered.
--- NOTE | 2025-04-08 10:46 | SWNOTE1 ---
SW spoke with pt's daughter, Maame, in pt's room. Another family member in the room as well. Pt was sitting up in the chair and voiced he was feeling good today. SW spoke with them about discharge planning and asked daughter if she decided on any discharge plans for pt. Pt's daughter stated he will be going home with her for the time being. SW offered to set up home health services to come in. JEN advised if we did a home health company that SW can have PT/OT, nurse, possibly an aide, and a SW to assist with resources. Pt's daughter voiced that she does not feel he needs that. She also stated she has a dog that is not very friendly. At this time daughter is refusing any services to come in for patient. SW advised to let SW know if she changes her mind. SW also let her know if she needs any assistance with Medicaid emiliano that she can call SW at anytime. Daughter voiced appreciation.
--- NOTE | 2025-04-08 12:59 | P.PN_ITS ---
Progress Note: Subjective Subjective Interval history: Patient is feeling better. He denies any chest pain. Denies any abdominal pain. Denies any shortness of breath. No hematemesis or melena. Exam Narrative Exam Narrative: [pt is awake and alert. oriented to place, time and person HEENT: [place] conjunctiva and NL buccal mucosa Neck: Supple, no tenderness Endocrine: No Thyromegaly. Vascular: No JVD or carotid bruit. Lymphatic: No cervical lymphadenopathy. Chest: Fine crackles Heart irregular rhythm, heart rate is in the 90s. No extra sound or murmur. Abd: Soft, no tenderness, no rebound and no rigidity. Increase abd girth therefore clinically I could not exclude the possibility of intra abd mass or organomegaly. LE: No cyanosis or clubbing, no varices. Trace edema Neuro: A A O. Nl speech, comprehension and attention. Nl and symetrical motor and tone examination through out. []] Constitutional Vital Signs, click to edit/add: Last Vital Signs Temp 98.4 F 04/08/25 07:54 Pulse 93 H 04/08/25 12:05 Resp 16 04/08/25 12:00 BP 101/64 04/08/25 12:00 Pulse Ox 95 04/08/25 12:00 O2 Del Method Room Air 04/08/25 12:00 Progress Note: Objective Labs Labs: Short CBC 04/07/25 04/07/25 04/08/25 Range/Units 14:10 19:23 05:38 WBC 6.8 (4.0-11.0) 10^3/uL Hgb 7.8 L 8.0 L 7.9 L (14.0-18.0) g/dL Hct 27.3 L 28.2 L 27.6 L (42.0-54.0) % Plt Count 424 (150-450) 10^3/uL BMP 04/08/25 05:38 Sodium 140 Potassium 3.4 L Chloride 105 Carbon Dioxide 27.8 BUN 29.0 H Creatinine 1.78 H Glucose 103 Calcium 8.2 L Progress Note: A&P Assessment and Plan (1) Atrial fibrillation with RVR: (2) Cardiomyopathy: Qualifiers: Cardiomyopathy type: unspecified Qualified Code(s): I42.9 - Cardiomyopathy, unspecified (3) Heart failure with reduced ejection fraction, NYHA class III: Plan A-fib with RVR. ST depression. Troponin is negative X2, elevated BNP. Mild element of diastolic heart failure secondary to RVR and patient not taking Lasix at home. Patient admitted that he has not been taking his medication at home for 2 weeks Patient was started on Cardizem drip which was discontinued around 2 AM on 12/1 after his heart rate to drop below 75. I started him on oral Coreg Requested echocardiogram. Holding Eliquis due to anemia with a hemoglobin drop. Replace it with Lovenox adjusted therapeutic dose in case we have to stop her to reverse it. Requested cardiac consultation. Consideration for antiarrhythmic. Please refer to cardiology note for details. Cardiology is considering ischemic evaluation. Currently patient is chest pain-free. Troponin is flat and negative. UTI Urine and blood cultures are pending. Previous culture was positive for staph and gram-negative organism. Started patient on ceftriaxone pending sensitivity report. Anemia, no evidence of acute blood loss. This could be related to is a CKD. Patient denies any hematemesis or melena. Stool Hemoccult is negative. Requested iron study which came back consistent with iron deficiency. Patient likely has mixed etiology anemia secondary to iron deficiency and CKD. I started patient on intravenous iron infusion. I started patient on PPI. I held his Eliquis and instead started him on Lovenox therapeutic dose adjusted for CKD in case we have to stop it or reverse at the. His hemoglobin has been fairly stable over the last 24 hours. Check H&H daily. Resume Eliquis and discontinue Lovenox if his hemoglobin continues to be stable by tomorrow. Patient will likely require to have anemia workup to be done in the outpatient setting to be handled by PCP in collaboration with other needed outpatient providers. This may include but not limited to EGD, colonoscopy, referral to see hematology and other needed age-appropriate cancer screening. We will arrange for GI follow-up electively given the fact that his stool Hemoccult is negative. CKD stage III dating back all the way to 2022 which is the oldest record we have at [facility] Continue gentle diuresis. Keep patient in euvolemic state Requested ultrasound and all came back negative for obstructive uropathy. Patient will need to follow-up with nephrology. Consideration to initiate SGLT to halt the progression of renal failure. He may need SGLT if echo showed systolic dysfunction. Ongoing alcohol consumption likely according to patient. Suspect element of alcohol dependency. Continue folic and thiamine supplementation to reduce his risk having Warnicke or Korsakoff Watch for potential withdrawal syndrome. Functional impairment. Patient was seen by physical Occupational Therapy team. Patient was able to walk long distance in the hallway. He did not qualify for skilled care. Family is considering applying for Medicaid for long-term residential [facility] living. Meanwhile, patient may go home with home health care. Chronic, subacute medical conditions not listed above, abnormal labs and imaging, incidental findings seen on labs and or imaging. These would need to be addressed. Could be addressed later on or in the outpatient setting by PCP col laboration with other needed outpatient providers when time and condition are appropriate. Urinary Catheter Management Urinary Catheter Management Urethral: Cath placed during this visit: no
[2025-04-09] VITALS (16 sets, daily range): BP systolic 113–145; BP diastolic 66–97; PULSE 72–107; TEMP 36.7–37.1; O2SAT 93–100
[2025-04-09 05:37] LABS: Hematocrit 28.0 % (42.0-54.0); Hemoglobin 8.0 g/dL (14.0-18.0); Mean Corpuscular HGB Conc 28.6 g/dL (29.9-35.2); Mean Corpuscular Hemoglobin 19.5 pg (25.9-34.0); Mean Corpuscular Volume 68.3 fL (80.0-94.0); Platelet Count 437 10^3/uL (150-450); Red Blood Count 4.10 10^6/uL (4.70-6.10); White Blood Count 6.4 10^3/uL (4.0-11.0)
[2025-04-09 05:45] LABS: Anion Gap 8.9; Blood Urea Nitrogen 27.0 mg/dL (7.0-18.0); Calcium 8.3 mg/dL (8.5-10.1); Carbon Dioxide 28.9 mmol/L (21.0-32.0); Chloride 106 mmol/L (98-107); Estimated GFR (African America 50 (>=60 mL/min/1.73m^2); Estimated GFR (Non-African Ame 41 (>=60 mL/min/1.73m^2); Glucose 141 mg/dL (74-106); Potassium 3.8 mmol/L (3.5-5.1); Sodium 140 mmol/L (136-145)
[2025-04-09] MEDS: TAMSULOSIN HCL 0.4 MG CAPSULE PO (08:27)
[2025-04-09] MEDS: LOSARTAN POTASSIUM 25 MG TABLET PO (08:28)
[2025-04-09] MEDS: THIAMINE MONONITRATE (VIT B1) 100 MG TABLET 200 MG PO (08:28)
[2025-04-09] MEDS: PANTOPRAZOLE SODIUM 40 MG TABLET.DR PO (08:28)
[2025-04-09] MEDS: FOLIC ACID 1 MG TABLET PO (08:28)
[2025-04-09] MEDS: CARVEDILOL 12.5 MG TABLET PO (08:28)
[2025-04-09] MEDS: TORSEMIDE 20 MG TABLET PO (08:28)
[2025-04-09] MEDS: IRON SUCROSE COMPLEX 200 MG in 0.9 % SODIUM CHLORIDE 100 ML 220 MG IV (08:28)
[2025-04-09] MEDS: ATORVASTATIN CALCIUM 40 MG TABLET PO (08:28)
[2025-04-09] MEDS: ENOXAPARIN SODIUM 40 MG/0.4 ML SYRINGE SUBQ (08:28)
--- NOTE | 2025-04-09 08:30 | CM.NOTE ---
Rounds made with Dr. Kenny, pt will discharge to home today. Cardiology will consult with pt for plan of care at discharge. Pt will discharge to daughter's home per SW, daughter denies services.
--- NOTE | 2025-04-09 08:55 | CM.NOTE ---
SRINATH spoke with Maura in Cardiology clinic, PLANT WORKER will see pt today for f/u plan of care.
--- NOTE | 2025-04-09 10:21 | PT.DAILY ---
Physical Therapy Daily Note PT Daily Note/Assess Start: 04/07/25 09:26 Freq: Status: Active Protocol: Document 04/09/25 10:12 VIRGIE (Rec: 04/09/25 10:21 [email or web address] [id number]) Physical Therapy Daily Note/Assessment Time In/Time Out Time In 09:10 Time Out 09:35 Pain In Pain N/A Pain Out Pain N/A Subjective Subjective pt supine upon arrival. agreeable to PT. Denies pain currently. Overall feeling better. Anticipatied dc this afternoon when daughter is off work and able to pick him up. Therapeutic Exercise Time Therapeutic Exercise 8 Minutes (minutes) Therapeutic Exercise 1 Units Therapeutic Exercise Treatment Therapeutic Exercise Standing bilat LE strengthening ex complete while Treatment standing at sink. 1-2 UE support to maintain standing balance. Does need occ standing therapeutic rest breaks between ex. Therapeutic Activity Time Therapeutic Activity 15 Minutes (minutes) Therapeutic Activity 1 Units Therapeutic Activity Treatment Bed Mobility Ability Modified Independent Chair Transfer Modified Independent Ability Therapeutic Activity Supine>sit Scarlett with assistance for catheter. Sits EOB Comments to gain bearing - min dizziness initially. Sit>stand Scarlett with assistance for catheter. Pt amb around facility without AD - occ UE support on handrails, RENT COLLECTOR holding catheter bag. Pt will take occ standing standing rest breaks. Pt returned to room for standing ex then sitting in recliner upon completion. Chair alarm is activated and call light is left within reach. Total Physical Therapy Time Total Therapy 23 Minutes Total Physical 2 Therapy Units Summary Daily Note Summary Improved gait endurance- amb roughly 900' around facility with occ standing rest breaks. Planned dc this afternoon.
--- NOTE | 2025-04-09 10:22 | CM.NOTE ---
Julio fordet sent to Dr. Kenny, urine susceptibility for final culture.
--- NOTE | 2025-04-09 10:52 | P.DS_ITS ---
DS: Providers Provider Date of admission: 04/06/25 15:33 Primary care physician: Rajesh Nam MD Consults: 04/06/25 16:12 Occupational Therapy Eval and Treat Routine Reason for consultation: Weakness Physical Therapy Eval and Treat Routine Reason for consultation: Weakness 04/06/25 16:25 Consult to Cardiology Routine Reason for consultation: A fib RVR, St depression DS: Diagnosis Discharge Diagnosis (1) Atrial fibrillation with RVR: (2) Cardiomyopathy: Qualifiers: Cardiomyopathy type: unspecified Qualified Code(s): I42.9 - Cardiomyopathy, unspecified (3) Heart failure with reduced ejection fraction, NYHA class III: Plan As listed above, below and others that are not listed DS: Summary Hospital Course Hospital Course: Mr. Rodney is a 69-year-old gentleman who came in with shortness of breath. He was not taking his medication according to his daughter. He was found to have the following: A-fib with RVR. ST depression. Troponin is negative X2, elevated BNP. Mild element of diastolic heart failure secondary to RVR and patient not taking Lasix at home. Patient admitted that he has not been taking his medication at home for 2 weeks. This episode of tachycardia and diastolic heart failure likely triggered by patient not taking his medication at home rather than failure of current regimen therefore I would not recommend significant adjustment of his preadmission home medications but strongly recommend compliance. Significant elevation of BNP but clinically there is little evidence of overwhelming fluid overload. He is significant elevation of BNP could be related to CKD. Patient was started on Cardizem drip which was discontinued around 2 AM on 12 after his heart rate to drop below 75. I started him on oral Coreg. That kept his heart rate and he checked below 90 Requested echocardiogram. Echocardiogram showed persistent cardiomyopathy. EF is 40% associated with biatrial dilatation, mild mitral and aortic regurgitation. Patient had received 1 dose of intravenous diuresis. Oral diuresis was resumed. 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 Patient is on Coreg as listed above. I added losartan 25 mg daily for cardiomyopathy Patient may need to be started on ARNI and/or MRA and/or SGLT to be addressed by cardiology now or postdischarge in the outpatient clinic. Troponin is negative. No chest pain. No clinical evidence to suggest ACS or acute plaque rupture however I suspect that the patient may have progression of his CAD Patient is on Eliquis and beta-darek. May need ischemic evaluation. The timing of this is to be addressed by cardiology team. Final recommendation in terms of patient needing additional diagnostic and/or therapeutic intervention and/or medication adjustment will be made by cardiology regarding cardiomyopathy, A-fib and suspect underlying CAD. Patient was seen by busperson nurse practitioner who recommended to increase his Coreg up to 25 mg twice daily. She called and prescription to his retail p winif[facility]. Patient is to follow-up with cardiology team postdischarge UTI Urine and blood cultures are pending. Previous culture was positive for staph and gram-negative organism. The staff aureus is more than 100,000 which is MSSA. The gram-negative organism is less than 10,000. Started patient on ceftriaxone pending sensitivity report. Patient will be discharged on doxycycline. Anemia, no evidence of acute blood loss. Mixed etiology anemia. This could be related to is a CKD. Patient denies any hematemesis or melena. Stool Hemoccult is negative. Requested iron study which came back consistent with iron deficiency. Patient likely has mixed etiology anemia secondary to iron deficiency and CKD. I started patient on intravenous iron infusion. Patient will be discharged on oral iron supplementation. I started patient on PPI. Patient will be discharged on oral PPI. Eliquis was placed on hold but his hemoglobin is stable and stool Hemoccult is negative. Resumed Eliquis. Patient will likely require to have anemia workup to be done in the outpatient setting to be handled by PCP in collaboration with other needed outpatient providers. This may include but not limited to EGD, colonoscopy, referral to see hematology and other needed age-appropriate cancer screening. We will arrange for GI follow-up electively given the fact that his stool Hemoccult is negative. Meanwhile I will order weekly CBC for 4 weeks to ensure stability of his hemoglobin. Results to be communicated to PCP. In addition, patient may be eligible to start erythropoietin due to anemia component related to CKD. I will arrange for patient to follow-up with nephrology team. CKD stage III dating back all the way to 2022 which is the oldest record we have at [facility] Continue gentle diuresis. Keep patient in euvolemic state Requested ultrasound and all came back negative for obstructive uropathy. Patient will need to follow-up with nephrology. Consideration to initiate SGLT to halt the progression of renal failure. I will arrange for patient to follow-up with nephrology team. I requested weekly BMP for 4 weeks to monitor his electrolytes and kidney function test, results to be communicated to PCP Ongoing alcohol consumption likely according to patient. Suspect element of alcohol dependency. Continue folic and thiamine supplementation to reduce his risk having Warnicke or Korsakoff Watch for potential withdrawal syndrome. Functional impairment. Patient was seen by physical Occupational Therapy team. Patient was able to walk long distance in the hallway. He did not qualify for skilled care. Family is considering applying for Medicaid for [facility]. Patient did not qualify for skilled care. He is doing very well. Patient will be discharged home with home health care Marijuana use. Patient was instructed not to use marijuana less prescribed for medical reason by medical provider. Chronic, subacute medical conditions not listed above, abnormal labs and imaging, incidental findings seen on labs and or imaging. These would need to be addressed. Could be addressed later on or in the outpatient setting by PCP collaboration with other needed outpatient providers when time and condition are appropriate. Patient has multiple complex medical issues as listed above and others that are not listed. All appear to be stable. Patient has been asymptomatic since admission. No chest pain. No shortness of breath. Vital signs have been stable. Saturation 100% on room air. Heart rate below 90. Patient wants to go home. He is ready physically and psychologically. At this time, I do not have any clear or strong clinical justification to extend inpatient hospitalization. Patient however will require close and frequent monitoring as well as additional work-up, investigation and therapeutic intervention that could take place from this point on post discharge. That is to prevent relapse, decompensation, rehospitalization and other medical implications. Discharge medications as listed are not final or set in stone. Primary care doctor and other out patient providers will need to titrate and adjust medications as soon as the first post discharge visit based on clinical progression, vitals signs, volume status and other related organs function. CBC BMP weekly for 4 weeks to monitor his hemoglobin, electrolytes and kidney function. Results to be communicated to PCP. I instructed patient to ask her primary care doctor to obtain [facility] record entirely to address abnormalities seen on labs and imaging that I have and have not addressed during this hospitalization, follow-up on pending blood work, imaging and pathology is if available and to follow-up on needed medical care in the outpatient setting. Time Spent with Patient Time attestation: Total time spent providing and/or coordinating discharge services: Time spent: greater than 30 minutes Exam Narrative Exam Narrative: [pt is awake and alert. oriented to place, time and person HEENT: [place] conjunctiva and NL buccal mucosa Neck: Supple, no tenderness Endocrine: No Thyromegaly. Vascular: No JVD or carotid bruit. Lymphatic: No cervical lymphadenopathy. Chest: CTA no DTP. Heart IRRR, no extra sound or murmur. Abd: Soft, no tenderness, no rebound and no rigidity. Increase abd girth therefore clinically I could not exclude the possibility of intra abd mass or organomegaly. LE: No cyanosis or clubbing, no varices or edema. No edema Neuro: A A O. Nl speech, comprehension and attention. Nl and symetrical motor and tone examination through out. []] Constitutional Vital Signs, click to edit/add: Last Vital Signs Temp 98.1 F 04/09/25 06:59 Pulse 86 04/09/25 10:00 Resp 16 04/09/25 06:59 BP 145/97 H 04/09/25 06:59 Pulse Ox 100 04/09/25 06:59 O2 Del Method Room Air 04/09/25 06:59 DS: Data Data Completed and Pending Labs on day of discharge: Labs from last 24 hours 04/09/25 04:51 WBC 6.4 RBC 4.10 L Hgb 8.0 L Hct 28.0 L MCV 68.3 L MCH 19.5 L MCHC 28.6 L RDW 22.8 H Plt Count 437 MPV 10.0 Sodium 140 Potassium 3.8 Chloride 106 Carbon Dioxide 28.9 Anion Gap 8.9 BUN 27.0 H Creatinine 1.67 H Est GFR ( Amer) 50 L Est GFR (Non-Af Amer) 41 L BUN/Creatinine Ratio 16.2 Glucose 141 H Calcium 8.3 L Preliminary micro results at discharge 04/06/25 13:57 Blood Culture Result 2 - Preliminary Blood NO GROWTH AT 36-48 HOURS. FINAL TO FOLLOW. 04/06/25 13:47 Blood Culture Result 1 - Preliminary Blood - Right Antecubital NO GROWTH AT 36-48 HOURS. FINAL TO FOLLOW. 04/06/25 15:00 Urine Culture - Preliminary Urine,Clean Catch Pending - Specimen sent to [facility] Discharge Plan Discharge Disposition: Home, Self-Care Condition: Fair Discharge Medications: New pantoprazole 40 mg Tablet,Delayed Release (Dr/Ec) 40 mg PO DAILY Qty: 30 1RF losartan 25 mg Tablet 25 mg PO QD Qty: 60 1RF doxycycline hyclate 100 mg tablet 100 mg PO BID 7 Days Qty: 14 0RF ferrous sulfate 325 mg (65 mg iron) tablet 325 mg PO BID Qty: 60 2RF Continued folic acid 1 mg tablet 1 mg PO DAILY carvedilol 12.5 mg tablet 25 mg PO BID Rx Instructions: must administer with a meal/food furosemide 40 mg tablet 40 mg PO DAILY Eliquis 5 mg tablet 5 mg PO BID tamsulosin 0.4 mg capsule 0.4 mg PO DAILY atorvastatin 40 mg tablet 40 mg PO DAILY lactulose 10 gram/15 mL solution 15 ml PO DAILY thiamine HCl (vitamin B1) [Vitamin B-1] 100 mg tablet 100 mg PO DAILY Changed potassium chloride 10 mEq capsule, extended release 10 meq PO DAILY Qty: 0 0RF Activity: increase activity as tolerated Print Language: Georgian Patient Instructions: Doxycycline (By mouth), Losartan (By mouth), Pantoprazole (By mouth), A-fib (Atrial Fibrillation) (GEN) Activity Restrictions/Additional Instructions: I may not have addressed or treated all of your medical illnesses or the abnormal blood work or imaging studies during this hospitalization. Please ask your primary care provider to obtain [facility] records entirely to follow up on all of the abnormal physical, laboratory, and imaging findings that I have not addressed. Please report to the emergency room if you see any blood in your stool or black- colored stool Please follow-up with the heart doctor, kidney doctor, primary care doctor, GI doctor (stomach and colon specialist so he can have stomach and colon scope ) Appointments are listed below. GI doctor will call you and get your appointment information. Please communicate with your primary care doctor if you do not hear back from the GI doctor within the next week or so I would recommend that you get blood tests ( CBC and BMP ) every week for the next 4 weeks to monitor your kidney function, electrolytes and a blood count. Result of this blood test is to be communicated to Dr. Nam Please take medications as directed. Please avoid using marijuana unless prescribed for a medical reason by medical provider Please return back to the emergency room or seek medical attention if your symptoms worsen or return. Discharging you from [facility] does not mean that your medical care ends here and now. You may still need additional monitoring, work up, investigation, and treatment plan to be handled from this point on by out patient providers including your primary care provider and specialists. For any medication question, please contact your retail pharmacist or your primary care provider. Thank you. Forms: Portal Instructions Follow Up Appointments: Dr Nam Apr@9:30 phone [phone] [facility] cardiology at the [facility] Apr@3:15 [facility] gastroenterology Jun 04 2025 @1:30 [address] [facility] [place]. phone [phone] [facility] Nephrology [address] Jun 11 10:30 Discharge Date/Time: 04/09/25 16:22
--- NOTE | 2025-04-09 11:00 | CM.NOTE ---
CM called [facility] nephrology for f/u appointment. Nephrology office requesting H&P and D/C summary for patient prior to scheduling appt. Nephrology office will call back with date and time.
--- NOTE | 2025-04-09 11:45 | CM.NOTE ---
CM spoke with pt regarding lab work to start on Monday for BMP and CBC weekly, results to be sent to Dr. Nam. RN provided with lab requisition and will go over with daughter at discharge. Lab requisition faxed to lab.
--- NOTE | 2025-04-09 12:06 | OT.DAILY ---
Occupational Therapy Daily Note OT Inpatient Daily Visit Note Start: 04/07/25 09:23 Freq: Status: Active Protocol: Document 04/09/25 12:01 [id number] (Rec: 04/09/25 12:06 [id number]) OT Visit Details Time In/Time Out Time In 11:50 Time Out 12:00 Pain In Pain Level 0 Pain Out Pain Level 0 OT Treatment Plan Subjective Subjective Pt reports I am doing well denies generalized weakness at this time. Objective Objective Pt completed 5x [id number] transfers with SBA for LOB . Pt did not use walker, able to maintain PRINCESS and dynamic standing balance. Pt educated on adaptive equipment for toileting and bathing. Assessment Assessment Pt tolerated treatment well. Agreeable and cooperative. No SOB or fatigue following session, reports he feels comfortable returning home with his daughter. Continue OT POC. Patient Education Patient Education Pt educated on installed grab bars and proper safety techniques, shower chair use and overall safety and transfers within the shower. Verbalized understanding at this time. 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
--- NOTE | 2025-04-09 17:58 | P.CACN_ITS ---
<Statement entered by NENITA BRAN - 04/09/25 20:16> This documentation has been reviewed and approved. History of Present Illness History of Present Illness Chief complaint: A fib dvd Narrative: error [facility] Medical History (Updated 04/07/25 @ 19:08 by LOVE MARTINES MD) Confusion ?R41.0 - Disorientation, unspecified (ICD-10) Atrial fibrillation with RVR ?I48.91 - Unspecified atrial fibrillation (ICD-10) Atrial fibrillation with rapid ventricular response ?I48.91 - Unspecified atrial fibrillation (ICD-10) Edema, peripheral ?R60.0 - Localized edema (ICD-10) CHF (congestive heart failure) ?I50.9 - Heart failure, unspecified (ICD-10) Atrial fibrillation ?I48.91 - Unspecified atrial fibrillation (ICD-10) Hypertension ?I10 - Essential (primary) hypertension (ICD-10) Family History (Updated 04/07/25 @ 17:39 by Lottie Bales RN) Father Family history of stroke Sister Family history of cancer Social History Smoking status: Never smoker Highest level of school completed/degree received: 9th grade Little interest or pleasure in doing things: several days Feeling down, depressed, or hopeless: several days Do you think of yourself as: straight/heterosexual Gender Identity: male Meds Home Medications and Allergies Home Medications ?Medication ?Instructions ?Recorded ?Confirmed ?Type apixaban 5 mg tablet (Eliquis) 5 mg PO BID 04/06/25 History atorvastatin 40 mg tablet 40 mg PO DAILY 04/06/2503/10 History carvedilol 12.5 mg tablet 25 mg PO BID 04/06/25 History folic acid 1 mg tablet 1 mg PO DAILY 04/06/2504/06 History furosemide 40 mg tablet 40 mg PO DAILY 04/06/2503/10 History lactulose 10 gram/15 mL oral 15 ml PO DAILY 04/06/25 1 06/06/24 History solution tamsulosin 0.4 mg capsule 0.4 mg PO DAILY 04/06/25 History thiamine HCl (vitamin B1) 100 mg 100 mg PO DAILY 04/0604/06/25 History tablet (Vitamin B-1) doxycycline hyclate 100 mg tablet 100 mg PO BID 7 days #14 tabs 04/09/25 Rx ferrous sulfate 325 mg (65 mg 325 mg PO BID #60 tabs 1 06/10/24 Rx iron) tablet losartan 25 mg tablet 25 mg PO QD #60 tabs 5 Rx pantoprazole 40 mg tablet,delayed 40 mg PO DAILY #30 t abs 04/09/25 Rx release potassium chloride 10 mEq 10 meq PO DAILY #0 caps 1207/3004/06/25 Rx capsule,extended release Allergies Allergy/AdvReac Type Severity Reaction Status Date / Time No Known Drug Allergies Allergy Verified 03/26/23 04:32 Exam Constitutional Vital Signs, click to edit/add: Last Vital Signs Temp 98.0 F 04/09/25 11:23 Pulse 79 04/09/25 14:00 Resp 16 04/09/25 11:23 BP 119/82 04/09/25 11:23 Pulse Ox 95 04/09/25 11:23 O2 Del Method Room Air 04/09/25 11:23 Results Labs and Meds Lab results: CBC 04/09/25 Range/Units 04:51 WBC 6.4 (4.0-11.0) 10^3/uL RBC 4.10 L (4.70-6.10) 10^6/uL Hgb 8.0 L (14.0-18.0) g/dL Hct 28.0 L (42.0-54.0) % Plt Count 437 (150-450) 10^3/uL Comprehensive Metabolic Panel 04/09/25 Range/Units 04:51 Sodium 140 (136-145) mmol/L Potassium 3.8 (3.5-5.1) mmol/L Chloride 106 (98-107) mmol/L Carbon Dioxide 28.9 (21.0-32.0) mmol/L BUN 27.0 H (7.0-18.0) mg/dL Creatinine 1.67 H (0.70-1.30) mg/dL Glucose 141 H (74-106) mg/dL Calcium 8.3 L (8.5-10.1) mg/dL Intake and Output 04/09/25 04/09/25 04/09/25 07:59 15:59 23:59 Intake Total 110 / 110 Output Total 1999 1250 / 1250 Balance -19990 -1140 / -1140 Intake: IV 110 / 110 Iron Sucrose Complex 200 mg In 110 / 110 0.9 % Sodium Chloride 100 ml @ 220 mls/hr IV DAILY TONY Rx#: [id number] Output: Urine Amount (Catheter) 1999 1250 / 1250 Urethral 1999 1250 / 1250 Other: # Bowel Movements 1 Assessment and Plan Assessment and Plan (1) Atrial fibrillation with RVR: (2) Cardiomyopathy: Qualifiers: Cardiomyopathy type: unspecified Qualified Code(s): I42.9 - Cardiomyopathy, unspecified (3) Heart failure with reduced ejection fraction, NYHA class III:
--- NOTE | 2025-04-09 17:59 | P.CAPN_ITS ---
<Statement entered by NENITA BRAN - 04/09/25 20:15> This documentation has been reviewed and approved. Progress Note: A&P Assessment and Plan (1) Atrial fibrillation with RVR: Assessment and Plan: -Will focus on rate control at this time given pt presented with a.fib and duration of a.fib prior to admission is unknown. -He remains in a.fib on exam. HR overall controlled. Noted to elevate with activity. Recommend increasing coreg to 25mg BID. -Continue Eliquis 5mg BID for stroke prophylaxis. -Follow-up with EP as an outpatient as scheduled for further management. Stressed this to pt as he has missed appts with us in the past. He states understanding. (2) Cardiomyopathy: Assessment and Plan: See below Qualifiers: Cardiomyopathy type: unspecified Qualified Code(s): I42.9 - Cardiomyopathy, unspecified (3) Heart failure with reduced ejection fraction, NYHA class III: Assessment and Plan: -EF appears to be newly reduced with an EF of 40-45%. -May be tachymediated but need to rule out ischemia. -He denies any c/o chest pain. Plan for ischemic evaluation with stress test vs coronary angiogram as an outpatient. Of note, he has anemia that needs investigated along with CKD, therefore stress test may be better option. -GDMT: continue coreg, losartan. He either has CKD or RADHA on admission. Consider addition of Farxiga if renal function improves or stabilizes, can be discussed as an outpatient. -Continue lasix 40mg daily Plan Thank you for the consult. Please let us know if any further questions or concerns. Micki Rosenthal APRN-[facility] RESIDENT [facility] Cardiovascular Medicine Subjective Subjective Principal diagnosis: A.fib with RVR, acute HFrEF Interval history: Patient seen and examined at bedside around lunch time today. He states he is feeling much better. He ambulated the halls today and it made him feel better. He is ready to go home today. He denies c/o CP, dyspnea, orthopnea, PND, LE edema, dizziness/LH, palpitations. Exam Constitutional Vital Signs, click to edit/add: Last Vital Signs Temp 98.0 F 04/09/25 11:23 Pulse 79 04/09/25 14:00 Resp 16 04/09/25 11:23 BP 119/82 04/09/25 11:23 Pulse Ox 95 04/09/25 11:23 O2 Del Method Room Air 04/09/25 11:23 Common normals: no apparent distress, oriented x3 and no limitations HENMT Common normals: normocephalic and head/scalp atraumatic Eye Common normals: EOMs intact bilaterally and conjunctivae normal Neck & C-Spine Common normals: supple and no JVD Respiratory Common normals: normal respiratory effort, no use of accessory muscles and clear to auscultation bilaterally Cardio Rhythm: abnormal rhythm irregularly irregular GI Common normals: Normal to inspection, nondistended, normoactive bowel sounds present Extremity Common normals: normal to inspection, full ROM and no clubbing, cyanosis or edema Urinary Catheter Management Urinary Catheter Management Urethral: Cath placed during this visit: no
== END 2025-04-09 16:22 | disposition home or self-care (01) | DRG 309 ==
LOC: ER 15:00 → MS 15:38
PROVIDERS: Internal Medicine Cardiovascular Disease; Admitting Provider Internal Medicine; Emergency Provider Emergency Medicine; PCP Family Medicine; Visit Provider Internal Medicine
DX: I48.91 Unspecified atrial fibrillation (principal); I13.0 Hypertensive heart and chronic kidney disease with heart failure and stage 1 through stage 4 chronic kidney disease, or unspecified chronic kidney disease; N39.0 Urinary tract infection, site not specified; I50.42 Chronic combined systolic (congestive) and diastolic (congestive) heart failure; D50.9 Iron deficiency anemia, unspecified; D63.1 Anemia in chronic kidney disease; N18.30 Chronic kidney disease, stage 3 unspecified; T50.1X6A Underdosing of loop [high-ceiling] diuretics, initial encounter; Z91.148 Patient's other noncompliance with medication regimen for other reason; I43 Cardiomyopathy in diseases classified elsewhere; I08.0 Rheumatic disorders of both mitral and aortic valves; I25.10 Atherosclerotic heart disease of native coronary artery without angina pectoris; F10.20 Alcohol dependence, uncomplicated; Z79.899 Other long term (current) drug therapy; Z79.01 Long term (current) use of anticoagulants; B95.61 Methicillin susceptible Staphylococcus aureus infection as the cause of diseases classified elsewhere
CPT/HCPCS: 36415; 71045; 76775; 80048; 80053; 80061; 81001; 82607; 82728; 82746; 83540; 83550; 83735; 83880; 84100; 84443; 84484; 85007; 85014; 85018; 85025; 85027; 87040; 87086; 90662; 90677; 93005; 93306; 94761; 96365; 96376; 97110; 97161; 97165; 97530; 97535; 99285; G0328; J0696; J1650; J1756; J1938

== ENCOUNTER 2025-04-17 14:03 | Inpatient (IN) | payer MEDICARE, OTHER, SELFPAY ==
[2025-04-17] VITALS (28 sets, daily range): BP systolic 127–172; BP diastolic 91–122; PULSE 64–135; TEMP 36.6–37; O2SAT 95–100; BMI 27.0; BMI 26.9
--- NOTE | 2025-04-17 14:28 | XR_ITS ---
[place] [id number] Patient Name: OXANA JOYA MRN: [id number] date: 1955 Sex: M Assigned Patient Location: ED.MAIN Current Patient Location: ED.MAIN Accession/Order Number: [id number] Exam Date: 04/17/2025 14:50 Report Date: 04/17/2025 15:04 At the request of: ROBERTO GREENWOOD Procedure: XR chest 1V XR chest 1V 04/17/2025 2:58 PM SIGNS AND SYMPTOMS: ^DYSPNEA ^Y PROTOCOL: Frontal radiograph of the chest COMPARISON: 04/06/2025 FINDINGS: The trachea is midline. There is cardiomegaly. There is a small amount of fluid along the minor fissure. There is perihilar vascular prominence. Calcified granulomas are noted. The bony thorax is intact. XR/XR chest 1V IMPRESSION: Findings suggest congestive heart failure. Impression dictated by: Damien Mane M.D. 04/17/2025 3:04 PM Dictation Location: [place] [address] Electronically authenticated by: [id number] Y Date: 04/17/2025 15:04
--- NOTE | 2025-04-17 14:28 | ECG_ITS ---
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
--- NOTE | 2025-04-17 14:28 | ED.WEAKNESS1 ---
HPI - Weakness General Chief complaint: Weakness Stated complaint: WEAKNESS Time Seen by Provider: 04/17/25 14:28 Source: patient and family Mode of arrival: walk-in Limitations: no limitations History of Present Illness HPI Narrative: Patient was discharged from the hospital. Since discharge, patient has had no appetite, no energy MD Complaint: Reports generalized weakness (No appetite no energy, ) Onset (ago): day(s) Duration: Reports constant Location: Reports generalized Migration: Reports none Severity: severe Relieving factors: Reports none Exacerbating factors: Reports none Associated symptoms: Reports loss of appetite and other (Constant, dry, hacking cough) Related Data Home Medications ?Medication ?Instructions ?Recorded ?Confirmed apixaban 5 mg tablet (Eliquis) 5 mg PO BID 04/06/25 04/17/25 atorvastatin 40 mg tablet 40 mg PO DAILY 04/06/25 04/17/25 carvedilol 12.5 mg tablet 25 mg PO BID 04/06/25 04/17/25 folic acid 1 mg tablet 1 mg PO DAILY 04/06/25 04/17/25 furosemide 40 mg tablet 40 mg PO DAILY 04/06/25 04/17/25 lactulose 10 gram/15 mL oral 15 ml PO DAILY 04/06/25 04/17/25 solution tamsulosin 0.4 mg capsule 0.4 mg PO DAILY 04/06/25 04/17/25 thiamine HCl (vitamin B1) 100 mg 100 mg PO DAILY 04/06/25 04/17/25 tablet (Vitamin B-1) Previous Rx's ?Medication ?Instructions ?Recorded doxycycline hyclate 100 mg tablet 100 mg PO BID 7 days #14 tabs 04/09/25 ferrous sulfate 325 mg (65 mg 325 mg PO BID #60 tabs 04/09/25 iron) tablet losartan 25 mg tablet 25 mg PO QD #60 tabs 04/09/25 pantoprazole 40 mg tablet,delayed 40 mg PO DAILY #30 tabs 04/09/25 release potassium chloride 10 mEq 10 meq PO DAILY #0 caps 04/09/25 capsule,extended release Allergies Allergy/AdvReac Type Severity Reaction Status Date / Time No Known Drug Allergies Allergy Verified 03/26/23 04:32 Review of Systems ROS Status of ROS 10 or more systems reviewed and unremarkable except as noted in history and below Constitutional Reports: fatigue and malaise Respiratory Reports: cough (Dry, hacking cough) PFSH PFSH Medical History Confusion ?R41.0 - Disorientation, unspecified (ICD-10) Atrial fibrillation with RVR ?I48.91 - Unspecified atrial fibrillation (ICD-10) Atrial fibrillation with rapid ventricular response ?I48.91 - Unspecified atrial fibrillation (ICD-10) Edema, peripheral ?R60.0 - Localized edema (ICD-10) CHF (congestive heart failure) ?I50.9 - Heart failure, unspecified (ICD-10) Atrial fibrillation ?I48.91 - Unspecified atrial fibrillation (ICD-10) Hypertension ?I10 - Essential (primary) hypertension (ICD-10) Family History Father Family history of stroke Sister Family history of cancer Social History Smoking status: Never smoker Highest level of school completed/degree received: 9th grade Little interest or pleasure in doing things: not at all Feeling down, depressed, or hopeless: not at all Do you think of yourself as: straight/heterosexual Gender Identity: male Exam Constitutional Vital Signs, click to edit/add: Last Vital Signs Temp 98.3 F 04/17/25 20:00 Pulse 84 04/17/25 20:00 Resp 18 04/17/25 20:00 BP 127/91 04/17/25 20:00 Pulse Ox 95 04/17/25 20:00 O2 Del Method Room Air 04/17/25 20:00 Documenting provider has reviewed patient's vital signs: yes Common normals: no apparent distress, average body habitus, oriented x3 and alert General appearance: cooperative, well kempt and well developed Nutritional appearance: thin Orientation/consciousness: Yes awake, Yes oriented to person, Yes oriented to place and Yes oriented to time HENSD Common normals: normocephalic, head/scalp atraumatic, hearing grossly normal bilaterally, external ears normal, EACs normal, TMs normal bilaterally and external nose normal Head and scalp: normal to inspection Face and sinus: normal facial exam Nose: external nose normal External ear: external ears normal External auditory canal: EACs normal Tympanic membrane: TMs normal bilaterally Mouth: oral and palatal mucosa normal Throat: posterior oropharynx normal Eye Common normals: PERRL, EOMs intact bilaterally, conjunctivae normal and no scleral icterus General eye: normal appearance of both eyes Eyelid: eyelids normal Conjunctiva: conjunctiva(e) normal Sclera: sclerae normal Pupil: PERRL Neck & C-Spine Common normals: full ROM, no lymphadenopathy and supple General: normal visual inspection Lymph Lymphatic: no lymphadenopathy noted Chest Common normals: inspection of chest normal Respiratory Common normals: normal respiratory effort, no retractions, no use of accessory muscles and clear to auscultation bilaterally Effort & inspection: able to speak in complete sentences and symmetric chest movement Auscultation: clear to auscultation bilaterally Cardio Common normals: no JVD, regular rate, regular rhythm, S1 normal heart sound, S2 normal heart sound, no gallops, no clicks, no murmurs, no rub and peripheral pulses 2+ throughout Palpation: normal PMI Rate: regular rate Rhythm: regular rhythm Heart sounds: S1 normal and S2 normal GI Common normals: Normal to inspection, nondistended, normoactive bowel sounds present, soft to palpation, non-tender, no hepatosplenomegaly, no masses and no bruits Inspection: normal to inspection Auscultation: normoactive bowel sounds Back & Pelvis Common normals: no CVA tenderness Extremity Common normals: normal to inspection, full ROM and normal capillary refill Neuro Common normals: oriented x3, CN's II-XII intact bilaterally, moves all extremities, no focal motor deficits, no sensory deficits noted and gait normal Sensorium/orientation: awake, alert, oriented to person, oriented to place and oriented to time Psych Common normals: mental status grossly normal, thought process normal, cooperative, affect normal, speech normal and activity/motor behavior normal Appearance: grossly normal and well kempt Attitude: calm and engaged Activity/motor behavior: appropriate eye contact Speech: normal speech Mood and affect: euthymic mood Thought process: normal thought process Thought content: normal thought content Attention/concentration: attention grossly intact Insight: insight good Judgement: judgment good Course Reevaluation(s) Reevaluation #1: Patient was interviewed and examined. The appropriate ER workup was initiated. White blood count was normal. Hemoglobin 8.6, hematocrit 30.1. Both of these are improved from patient's discharge. MCV is 75.6 which is also improved from patient's discharge. BUN is 22, creatinine is 1.46, which is also improved from patient's discharge. BNP is elevated at 15,762. TSH is 2.928. UA remarkable for protein, moderate blood, trace leukocyte, 10-20 RBCs, 2-5 WBCs, moderate bacteria. While patient was still in the department, we did receive a result of a urine culture that showed a resistant Staph aureus, sensitive to Cipro which is not carried here, but sensitive to Levaquin which is on formulary here. I did discuss this with the hospitalist. He requests that this urine culture result be sent up with the patient so he can review it. Influenza AMB were both negative. However, patient's COVID-19 test did come back positive. Chest x-ray was performed and reveals findings consistent with congestive heart failure. I discussed the results of the workup with the admitting hospitalist. He has accepted the patient. I discussed the results of the workup with the patient and his daughter. He is in agreement to stay in the hospital tonight. The patient will be admitted in stable condition Vital Signs Vital signs: Vital Signs Temperature 98 F 04/17/25 14:13 Pulse Rate 64 04/17/25 14:13 Respiratory Rate 16 04/17/25 14:13 Blood Pressure 163/122 H 04/17/25 14:13 Pulse Oximetry 100 04/17/25 14:13 Oxygen Delivery Method Room Air 04/17/25 14:13 Temperature 98.3 F 04/17/25 20:00 Pulse Rate 84 04/17/25 20:00 Respiratory Rate 18 04/17/25 20:00 Blood Pressure 127/91 04/17/25 20:00 Pulse Oximetry 95 04/17/25 20:00 Oxygen Delivery Method Room Air 04/17/25 20:00 MDM - Weakness MDM Narrative Medical decision making narrative: Symptomatic anemia, RADHA on CKD, acute exacerbation of heart failure, A-fib with RVR, viral illness, bacterial illness, acute lower urinary tract infection Medical Records Attestation: I reviewed the patient's medical records. Lab Data Attestation: I reviewed the patient's lab results. Labs: Lab Results 04/17/25 04/17/25 04/17/25 Range/Units 14:41 14:47 16:26 WBC 5.2 (4.0-11.0) 10^3/uL RBC 3.98 L (4.70-6.10) 10^6/uL Hgb 8.6 L (14.0-18.0) g/dL Hct 30.1 L (42.0-54.0) % MCV 75.6 L (80.0-94.0) fL MCH 21.6 L (25.9-34.0) pg MCHC 28.6 L (29.9-35.2) g/dL RDW 29.4 H (11.0-15.0) % Plt Count 192 (150-450) 10^3/uL MPV 10.1 (9.5-13.5) fL Neut % (Auto) 71.2 (43.0-75.0) % Lymph % (Auto) 14.3 L (20.5-60.0) % [place] % (Auto) 9.9 (1.7-12.0) % Eos % (Auto) 2.3 (0.9-7.0) % Baso % (Auto) 2.1 H (0.2-2.0) % Neut # (Auto) 3.7 (1.4-6.5) 10^3/uL Lymph # (Auto) 0.7 L (1.2-3.8) 10^3/uL [place] # (Auto) 0.5 (0.3-0.8) 10^3/uL Eos # (Auto) 0.1 (0.0-0.7) 10^3/uL Baso # (Auto) 0.1 (0.0-0.1) 10^3/uL Abs Immat Gran (auto) 0.01 (0.00-0.03) 10^3/uL Imm/Tot Granulo (auto) 0.2 (0.0-0.5) % PT 12.7 H (9.0-11.6) sec INR 1.23 Sodium 140 (136-145) mmol/L Potassium 4.0 (3.5-5.1) mmol/L Chloride 108 H (98-107) mmol/L Carbon Dioxide 22.1 (21.0-32.0) mmol/L Anion Gap 13.9 BUN 22.0 H (7.0-18.0) mg/dL Creatinine 1.46 H (0.70-1.30) mg/dL Est GFR ( Amer) 58 L (>=60 mL/min/1.73m^2) Est GFR (Non-Af Amer) 48 L (>=60 mL/min/1.73m^2) BUN/Creatinine Ratio 15.1 Glucose 100 (74-106) mg/dL Lactate 1.1 (0.4-2.0) mmol/L Calcium 8.7 (8.5-10.1) mg/dL Magnesium 2.0 (1.8-2.4) mg/dL Total Bilirubin 0.7 (0.2-1.0) mg/dL AST 24 (15-37) U/L ALT 30 (16-63) U/L Alkaline Phosphatase 111 (46-116) U/L Total Creatine Kinase 61 (39-308) U/L CK-MB (CK-2) 2.35 (<=3.60) ng/mL Myoglobin 50 (16-96) ng/mL Troponin I High Sens 25.3 (4.0-76.1) pg/mL NT-Pro-B Natriuret Pep 58022.0 H* (<=900.0) pg/mL Total Protein 7.5 (6.4-8.2) g/dL Albumin 3.0 L (3.4-5.0) g/dL Globulin 4.5 g/dL Albumin/Globulin Ratio 0.7 Lipase 74.0 (16.0-77.0) U/L TSH 2.928 (0.358-3.740) uIU/mL Urine Color Yellow (YELLOW) Urine Clarity Clear (CLEAR) Urine pH 6.0 (5.0-9.0) Ur Specific [place] 1.025 (1.005-1.025) Urine Protein 30 A (NEG/TRACE) mg/dL Urine Glucose (UA) Negative (NEGATIVE) mg/dL Urine Ketones Negative (NEGATIVE) mg/dL Urine Occult Blood Moderate A (NEGATIVE) Urine Nitrite Negative (NEGATIVE) Urine Bilirubin Negative (NEGATIVE) Urine Urobilinogen 1.0 (0.2-1.0) EU/dL Ur Leukocyte Esterase Trace A (NEGATIVE) Urine RBC 10-20 A (0-2) #/HPF Urine WBC 2-5 A (NONE SEEN) #/HPF Ur Squamous Epith Cells None seen (NONE/RARE) #/LPF Urine Crystals None seen (None Seen) #/HPF Urine Bacteria Moderate A (NONE SEEN) #/HPF Urine Casts None seen (NONE SEEN) #/LPF Urine Mucus None seen (NONE SEEN) Ur Culture Indicated? Yes-[facility] [place] Influenza Type A Ag Negative Influenza Type B Ag Negative SARS-CoV-2 Ag (CV2AG) Positive A (NEGATIVE) Prior to the patient being admitted to the floor, I received a copy of the patient's most recent urine culture. Patient grew out a staph aureus, with resistance to many antibiotics. Sensitivity to Cipro, but Cipro is not available here. Sensitivity to Levaquin which is carried here. I did discuss the result of this report with the admitting hospitalist. The report will accompany the patient to the floor so the hospitalist can review it and initiate appropriate antibiotic coverage. Imaging Data FINDINGS: The trachea is midline. There is cardiomegaly. There is a small amount of fluid along the minor fissure. There is perihilar vascular : Radiologist's impression: ITS Impressions Chest X-Ray 04/17/25 14:28 IMPRESSION: Findings suggest congestive heart failure. Impression dictated by: Damien Mane M.D. 04/17/2025 3:04 PM Dictation Location: [place] [address] Electronically authenticated by: [id number] Y Date: 04/17/2025 15:04 ECG Data Attestation: ?I have reviewed the pertinent ECG results. Interpretation: EKG atrial fibrillation with right bundle branch block rate of 91, QRS 36, QT 398, QTc 447 Discharge Plan Discharge Chief Complaint: Weakness Clinical Impression: COVID-19 virus infection, Symptomatic anemia, Bacterial UTI Heart failure Qualifiers: Heart failure chronicity: acute on chronic Patient Disposition: Admitted As Inpatient Time of Disposition Decision: 17:43 Discharge Date/Time: 04/17/25 17:43
--- OUTSIDE RECORDS SUMMARY | 2025-04-17 14:39 | XMS_ITS | CCD ---
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 Name Role Phone MISC, DOCTOR Primary Care Unavailable PAY, PETR Admitting Unavailable PAY, PETR Attending Unavailable PAY, PETR Consulting Unavailable Shaikh Juarez MD Primary Care Provider [phone] SHAIKH JUAREZ Attending Unavailable SHAIKH JUAREZ Attending Unavailable SHAIKH JUAREZ Attending Unavailable Services, [facility] Primary Care Provider SERVICES, [facility] Primary Care Unava ilable ANTIONE OZUNA Consulting Unavailable SERVICES, [facility] Primary Care Unava ilable SERVICES, [facility] Care Unava ilable SERVICES, [facility] Care Unava ilable SERVICES, [facility] Care Unava ilable SERVICES, [facility] Care Unava ilable MATTHEW PHILIPPE Admitting Unavailable RAMON SUTHERLAND Referring Unavailable SERVICES, [facility] Care Unava ilable CATRINA MARIE Consulting Unavailable TABATHA LEÓN Attending Unavailable HOPPS VLIZBETH Consulting Unavailable NICOLAS WELLS Consulting Unavailable RICHARDSON BRANDT Consulting Unavailable FREDERICK LUONG Consulting Unavailable Ramon Sutherland Primary Care Physician Ramon Sutherland MD Attending Provider Ramon Sutherland Attending Unavailable Ramon Sutherland Admitting Unavailable Shaikh Juarez MD Primary Care Provider Jaleel Chacon MD Primary Care Provider Skylar Gustafson NP Unavailable MD DONAL MCGARRY Attending Unav MD DONAL Gilliam Attending Unav MD DONAL Gilliam Attending Shanthi Morrissey Attending Unavailable MD DONAL MCGARRY Attending KIKI Holder Attending Unavailable KIKI OLIVIER Attending Unavailable KIKI OLIVIER Attending Unavailable Allergies Allergy ClassificationReported Allergen(s)Allergy TypeDate of OnsetReaction(s) Facility (1 source)No Known Medication Allergies; Translations: [No Known Medication Allergies]Propensity to adverse reactions (disorder)[facility] Rep[facility] Medications Current Medications MedicationDrug Class(es)DatesSig (Normalized)Sig (Original)acetaminophen 325 mg oral tablet (5 sources)Start: 78-04-2992iwqr 1 mg by mouth every four hoursacetaminophen 325 mg Tab mg tab(s), Oral, q4hr, Refills(s) 0 Start Date: 06/25/24 Status: Ordered Medication Dispense Status: Completed Total Allowed Fills: 1 Fills Dispensed: 0 Start: 14-68-5611ncda 1 tablet by mouth every four hours as gxpens058 mg, oral, Every 4 hours PRN, Temperature greater than 38.3 C, Starting on Mon06/07/24 at 0531, [Warning: Total Acetaminophen not to exceed more than 4 grams (4000 mg) in 24 hours]apixaban 5 mg oral tablet (11 sources)Factor Xa InhibitorStart: 34-43-5733lfos 1 mg by mouth twice daily apixaban 5 mg oral tablet mg tab(s), Oral, BID, Refills(s) 0 Start Date: 06/25/24 Status: Ordered Medication Dispense Status: Completed Total Allowed Fills: 1 Fills Dispensed: 0Start: 45-83-8464nvtx 1 tablet by mouth in the morningEliquis 5 MG tablet Take 5 mg by mouth in the morning and 5 mg before bedtime. 0 05/17/2023 ActiveStart: 83-78-1640dqum 1 tablet by mouth every twelve hours apixaban (ELIQUIS) 5 mg tablet Take 1 tablet (5 mg total) by mouth every 12 (twelve) hours. 180 tablet 3 01/04/2021 Activeatorvastatin 40 mg oral tablet (7 sources)HMG-CoA Reductase InhibitorStart: 55-70-5271lkjvuwetwsoi 40 mg Tab 40 mg = 1 tab(s), Refills(s) 0 Start Date: 06/25/24 Status: Ordered Medication Dispense Status: Completed Total Allowed Fills: 1 Fills Dispensed: 0Start: 37-65-3128hgtu 1 tablet by mouth once dailyatorvastatin (LIPITOR) 40 mg tablet Take 1 tablet (40 mg total) by mouth nightly. 30 tablet 06/12/2024 Active carvedilol 12.5 mg oral tablet (7 sources)alpha-Adrenergic Manisha, beta-Adrenergic BlockerStart: 06-25-2024 carvedilol 12.5 mg Tab 12.5 mg = 1 tab(s), Refills(s) 0 Start Date: 06/25/24 Status: Ordered Medication Dispense Status: Completed Total Allowed Fills: 1 Fills Dispensed: 0Start: 56-79-8639riqh 1 tablet by mouth in the morning, then take 1 tablet by mouth at bedtimecarvediloL (COREG) 12.5 mg tablet Take 1 tablet (12.5 mg total) by mouth in the morning and 1 tablet (12.5 mg total) before bedtime. 60 tablet 06/12/2024 ActivecefTRIAXone 1000 mg injection (2 sources)Cephalosporin AntibacterialStart: 06-07-2024 End: 80-99-1977qllh 1000 mg intravenously every twenty-four hours1,000 mg, intravenous, at 100 mL/hr, Administer over 30 Minutes, Every 24 hours, First dose (after last modification) on Mon06/12/24 at 1030, For 1 day, Look-alike/sound-alike medication - verify indication for use. Do not co- administer with calcium-containing solutions such as Lactated Ringers., Ind ication: Intra-abdominaldiazePAM 10 mg oral tablet (3 sources)BenzodiazepineStart: 00-91-7529Qadkml 10 mg Tab 10 mg = 1 tab(s), Oral, Once, PRN for anxiety, take one hour prior to procedure, #1 tab(s), Refills(s) 0, Pharmacy: [facility] [id number], 180, cm, 07/19/24 13:40:00 EDT, Height/Length Dosing, 80, kg, 07/19/24 13:40:00 EDT, Weight Dosing Start Date: 10/15/24 Status: Ordered Medication Dispense Status: Completed Quantity: 1.0 Unit: tab(s) Total Allowed Fills: 1 Fills Dispensed:0docusate sodium 50 mg / sennosides, group home 8.6 mg oral tablet (1 source)Start: 68-23-1090zxkf 2 tablets by mouth once daily2 tablet, oral, Nightly, First dose on Mon06/11/24 at 2200folic acid 1 mg oral tablet (7 sources)Start: 81-04-5138ieqsg acid 1 mg Tab 1 mg = 1 tab(s), Refills(s) 0 Start Date: 06/25/24 Status: Ordered Medication Dispense Status: Completed Total Allowed Fills: 1 Fills Dispensed: 0Start: 25-40-6776gost 1 tablet by mouth in the morningfolic acid (FOLVITE) 1 mg tablet Take 1 tablet (1 mg total) by mouth in the morning. 30 tablet 06/13/2024 ActiveStart: 43-96-9627ipqr 1 tablet by mouth in the morningfolic acid (FOLVITE) 1 mg tablet Take 1 tablet (1 mg total) by mouth in the morning. 30 tablet 06/13/2024Start: 72-72-7957tsuu 1 mg by mouth once daily1 mg, oral, Daily, First dose on Mon06/07/24 at 0900, Look-alike/sound-alike medication - verify indication for use.furosemide 40 mg oral tablet (9 sources)Loop DiureticStart: 20-11-2355vohafurajy 40 mg Tab 40 mg = 1 tab(s), Refills(s) 0 Start Date: 06/25/24 Status: Ordered Medication Dispense Status: Completed Total Allowed Fills: 1 Fills Dispensed: 0Start: 95-60-8806rran 1 tablet by mouth once dailyfurosemide (LASIX) 40 mg tablet Take 1 tablet (40 mg total) by mouth daily. 30 tablet 06/13/2024 ActiveStart: 10-52-7027xrto 1 tablet by mouth once dailyfurosemide (LASIX) 40 mg tablet Take 1 tablet (40 mg total) by mouth daily. 30 tablet 06/13/2024Start: 98-76-007248 mg, oral, Daily, First dose on Mon06/11/24 at 0900, HOLD FOR BLOOD PRESSURE LESS THAN 100 MMHG Loo k-alike/sound-alike medication - verify indication for use.Start: 06-08-2024 End: 04-41-4615negw 40 mg intravenously every twelve hours40 mg, intravenous, Every 12 hours, First dose on Mon06/08/24 at 1100, For 6 doses, Look-alike/sound- alike medication - verify indication for use. IVP rate = 20 mg/minStart: 05-24-2023 End: 65-37-0486king 1 tablet by mouth in the morningfurosemide [...] ml glucose 50 mg/ml injection (3 sources)Start: 77-87-4764pexr 70 mg intravenously every pmfs210 mL/hr, intravenous, Continuous PRN, blood glucose less [...] VESICANT (RED) Warning: HYPERTONIC solution.LORazepam (3 sources)BenzodiazepineStart: 41-39-8939qrlz 1 tablet by mouth every four hours as neededLORazepam (ATIVAN) tablet 2 mgStart: 84-27-0193ivqi 1 tablet by mouth every four hours as neededLORazepam (ATIVAN) tablet 3 mgStart: 06-08-2024 take 1 tablet by mouth every four hours as neededLORazepam (ATIVAN) tablet 1 mg losartan potassium 100 mg oral tablet (3 sources)Angiotensin 2 Receptor BlockerStart: 05-25-2023 End: 49-02-7618xufx 1 tablet by mouth in the morninglosartan (Cozaar) 100 MG tablet Indications: Chronic systolic heart failure (HCC) , Primary hypertension Take 1 tablet (100 mg) by mouth in the morning. 90 tablet 06/28/2023 Rccjwy98 ml magnesium sulfate 40 mg/ml injection (2 [...] needed.melatonin 5 mg oral tablet (1 source)Start: 22-93-2448gqkw 5 mg by mouth once daily5 mg, oral, Nightly, [place] Mon06/[place] [address] ml metoprolol tartrate 1 mg/ml injection (4 sources)beta-Adrenergic BlockerStart: 83-29-9233gshs 5 mg intravenously every six hours as needed5 mg, intravenous, Every 6 hours PRN, For heart rate greater than 120, Starting on 06/08/24 at 1711, Look-alike/sound-alike medication - verify indication for use.Start: 05-24-2023 End: 31-15-4973klyh 1 tablet by mouth every twenty-four hours in the morning metoprolol succinate XL (Toprol XL) 100 MG 24 hr tablet Indications: Chronic systolic heart failure(HCC) Take 1 tablet (100 mg) by mouth in the morning. Do not crush or chew.. 90 tablet 06/28/2023 Activemidodrine hydrochloride 5 mg oral tablet (2 sources)alpha-Adrenergic AgonistStart: 96-04-3424rffg 5 mg by mouth three times daily5 mg, oral, 3 times daily, First dose on 06/09/24 at 1400, Hold if blood pressure is greater dbln509 mmHg Look-alike/sound-alike medication - verify indication for use.Start: 06-09-2024 End: 02-94-7333iqzj 5 mg by mouth once5 mg, oral, Once, On 06/09/24 at 1330, For 1 dose, Look-alike/sound-alike medication - verify indication for use. rpgislnq-vyfu-IJ-calcium &mins (THERAGRAN-M) 9 mg iron-400 mcg tablet 1 tablet (1 source)Start: 85-58-7385uits 1 tablet by mouth once daily as needed1 tablet, oral, Daily PRN, administer instead of IV MVI when patient tolerating oral diet, Startingon Mon06/07/24 at 0620polyethylene glycol 3350 23151 mg powder for oral solution (1 source)Osmotic LaxativeStart: g, oral, Daily PRN, constipation, Starting on Mon06/11/24 at 0753, Look-alike/sound-alike medication - verify indication for use. Dissolve 1 packet (17 gm) in 8 ounces of water, juice, soda, coffeeor tea.Potassium Chloride (8 sources)Start: 25-55-5522gxqe 1 dose by mouth twice dailyPotassium Chloride (Ubv-Xvll-Lbb 10) mEq, Oral, BID, Refills(s) 0 Start Date: 06/25/24 Status: Ordered Medication Dispense Status: Completed Total Allowed Fills: 1 Fills Dispensed: 0Start: 65-33-3057Dzsyvqkdd Chloride (Rnv-Dynf-Wgf 10) mEq, Oral, BID, Refills(s) 0 Start Date: 06/25/24 Status: Ordered Repeat number: 1Start: 62-99-7759Qoqrmqatj Chloride (Gmd-Rbwt-Nuc 10) mEq, Oral, BID, Refills(s) 0 Start Date: 06/25/24 Status: OrderedStart: 66-09-5206dzgkndpdo chloride (K-TAB,KLOR-CON) CR tablet 20-40 mEqStart: 01-99-4018qbuenztap chloride (K-TAB,KLOR-CON) 10 MEQ CR tablet TAKE 2 TABLETS BY MOUTH EVERY DAY 180 tablet 1 09/16/2021 ActiveQUEtiapine 25 mg oral tablet (3 sources)Atypical AntipsychoticStart: 51-97-0969lydt 1 tablet by mouth once dailyQUEtiapine (SEROquel) 25 mg tablet Take 1 tablet (25 mg total) by mouth nightly. 30 tablet 06/12/2024 Activesacubitril 24 mg / valsartan 26 mg oral tablet (3 sources)Angiotensin 2 Receptor BlockerStart: 47-32-3510klwu 1 tablet by mouth twice dailyEntresto 24 mg-26 mg oral tablet tab(s), Oral, BID, Refill(s) 0 Start Date: 07/19/24 Status: OrderedMedication Dispense Status: Completed Total Allowed Fills: 1 Fills Dispensed: 0spironolactone 50 mg oral tablet (3 sources)Aldosterone AntagonistStart: 05-24-2023 End: 52-67-9032hlyp 1 tablet by mouth in the morningspironolactone (Aldactone) 50 MG tablet Indications: Chronic systolic heart failure (HCC) Take 1 tablet (50 mg) by mouth in the morning. 90 tablet 06/28/2023 Activesulfamethoxazole 800 mg / trimethoprim 160 mg oral tablet (1 source)Dihydrofolate Reductase Inhibitor Antibacterial, Sulfonamide AntimicrobialStart: 10-21-2024 End: 19-11-4011gvzz 1 tablet by mouth twice dailyBactrim D.S. 800 mg-160 mg Tab 1 tab(s), Oral, BID for 3 day(s), 6 tab(s), Refill(s) 0, [facility] [id number], 180, cm, 07/19/24 13:40:00 EDT, Height/Length Dosing, 80, kg, 07/19/24 13:40:00 EDT, Weight Dosing Start Date: 10/21/24 Stop Date: 10/24/24 Status: Ordered Quantity: 6.0 Unit: tab(s) Repeat number: 1tamsulosin hydrochloride 0.4 mg oral capsule (7 sources)alpha-Adrenergic BlockerStart: 55-86-3682ehijvgjzqo 0.4 mg Cap 0.4 mg = 1 cap(s), Refills(s) 0 Start Date: 06/25/24 Status: Ordered Medication Dispense Status: Completed Total Allowed Fills: 1 Fills Dispensed: 0Start: 85-60-5726corb 1 capsule by mouth once dailytamsulosin (FLOMAX) 0.4 mg capsule Take 1 capsule (0.4 mg total) by mouth nightly. 30 capsule 06/12/2024 Activethiamine 100 mg oral tablet (7 sources)Start: 87-38-6819hjgv 1 mg by mouth once dailythiamine 100 mg Tab mg tab(s), Oral, Daily, Refills(s) 0 Start Date: 06/25/24 Status: Ordered Medication Dispense Status: Completed Total Allowed Fills: 1 Fills Dispensed: 0Start: 12-64-0572ytma 1 tablet by mouth in the morningthiamine HCl (VITAMIN B-1) 100 mg tablet Take 1 tablet (100 mg total) by mouth in the morning. 30 tablet 06/13/2024 ActiveStart: 48-06-8750uerv 1 tablet by mouth in the morningthiamine HCl (VITAMIN B-1) 100 mg tablet Take 1 tablet (100 mg total) by mouth in the morning. 30 tablet 06/13/2024Start: 37-27-7757fsro 100 mg by mouth once yzpbk905 mg, oral, Daily, First dose on Mon06/07/24 at 0630, Look-alike/sound-alike medication - verify indication for use. Completed/Discontinued Medications MedicationDrug Class(es)DatesSig (Normalized)Sig (Original)20 ml albumin human, group home 250 mg/ml injection (2 sources)Human Serum AlbuminStart: [...] (3 sources)Dihydropyridine Calcium Channel BlockerStart: 12-30-2021 End: 10-03-0335croo 10 mg by mouth once daily10 mg, oral, Daily, First dose on Mon06/08/24 at 1100, HOLD FOR SYSTOLIC BLOOD PRESSURE LESS THAN 100 MMHG Look-alike/sound-alike medication - verify indication for use. Avoid grapefruit juice.aspirin 81 mg delayed release oral tablet (2 sources)Platelet Aggregation Inhibitor, Nonsteroidal Anti-inflammatory Drug End: 34-43-9575omyp 1 tablet by mouth in the morningaspirin 81 mg Take 1 tablet (81 mg total) by mouth in the morning. 06/12/2024 Discontinued (Stop Taking at Discharge)0.4 ml enoxaparin sodium 100 mg/ml prefilled syringe (1 source)Low Molecular Weight HeparinStart: 06-10-2024 End: 99-72-9606nbgjvs 40 mg by subcutaneous injection once daily40 mg, subcutaneous, Daily, First dose on Mon06/10/24 at 0900, Look-alike/sound-alike medication - verify indication for use.gadoteridoL (PROHANCE) injection 6.22 mmol 12.44 mL (1 source)Start: 06-10-2024 End: .22 mmol (0.1 mmol/kg 62.2 kg), intravenous, Once in imaging, contrast, MRI, Starting on Mon06/10/24 at 0211, For 1 dose, VESICANT (RED), Indications: magnetic resonance wykqnhn053 ml heparin sodium, porcine 50 unt/ml injection [...] mg/ml cartridge (3 sources)beta-Adrenergic BlockerStart: 06-07-2024 End: 87-87-493314 mg, intravenous, Once, On Mon06/07/24 at 2315, For 1 dose, Look-alike/sound-alike medication - verify indication for use.Start: 02-23-2022 End: 45-83-2273oxfl 2 tablets by mouth in the morning, then take 2 tablets by mouth at bedtimelabetaloL (NORMODYNE) 200 mg tablet Take 2 tablets (400 mg total) by mouth in the morning and 2 tablets (400 mg total) before bedtime. 120 tablet 5 02/23/2022 06/12/2024 Discontinued (Stop Taking at Discharge)lactulose 667 mg/ml oral solution (1 source)Osmotic LaxativeStart: 06-07-2024 End: 81-38-936843 g, oral, 2 times daily, First dose on Mon06/07/24 at 1300, HOLD IF PATIENT HAS HAD 2 BOWEL MOVEMENTS IN A DAY Titrate for 2-3 BM per yni783 ml metroNIDAZOLE 5 mg/ml injection (2 sources)Nitroimidazole AntimicrobialStart: 06-07-2024 End: 55-45-9324dnzg 500 mg intravenously every twelve cepic444 mg, intravenous, at 100 mL/hr, Administer over 60 Minutes, Every 12 hours, First dose (after last modification) on Mon06/11/24 at 2100, For 1 day, Look-alike/sound-alike medication - verify indication for use., Indication: Intra-abdominalolmesartan medoxomil 40 mg oral tablet (2 sources)Angiotensin 2 Receptor BlockerStart: 08-18-2020 End: 65-57-1919vcwc 1 tablet by mouth once dailyolmesartan (BENICAR) 40 mg tablet Take 1 tablet (40 mg total) by mouth daily. 30 tablet 5 08/18/2020 06/12/2024 Discontinued (Stop Taking at Discharge)1000 ml sodium chloride 9 mg/ml injection (6 sources)Start: 06-10-2024 End: mL, intravenous, Once in imaging, pre/post contrast, MRI, Starting on Mon06/10/24 at 0211, For 1 doseStart: 06-10-2024 End: 71-07-411708 mL, intravenous, Once in imaging, line care, MRI, Starting on Mon06/10/24 at 0211, For 1 doseStart: mL, intravenous, Every 12 hours scheduled, First dose on Mon06/07/24 at 0900Start: mL, intravenous, As needed, line care, before and after each intermittent use, Starting on Mon06/07/24 at 0530Start: 63-47-4279yqcd 20 mL intravenously every hour as mL/hr, intravenous, Continuous PRN, to maintain patency of lines, Starting on Mon06/07/24 at 0530Start: 60-14-6009cpyg 25 mL intravenously every hour as drtydo05 mL, intravenous, at 100 mL/hr, Administer over 15 Minutes, As needed, line care, line care afterIVPB administration, Starting on Mon06/07/24 at 0530 Problems Active Problems Problem ClassificationProblemDateDocumented DateEpisodic/ChronicAcute cerebrovascular disease (4 sources)Cerebrovascular oamrobsq44-41-4246YuphirsJwacjnv dysrhythmias (12 sources)Unspecified atrial fibrillation; Translations: [Paroxysmal atrial fibrillation]Onset: 711186-80-1714HbqllnyGkcvheb dysrhythmias (3 sources)Bradycardia; Translations: [Bradycardia, unspecified]Onset: 153143-27-6119LosqvpzfAdlkhka kidney disease (4 sources)Chronic kidney disease stage 3A ; Translations: [Stage 3a chronic kidney disease (HCC)]Onset: 769571-45-0078MgioifxIcilufcrat heart failure; nonhypertensive (6 sources)Chronic systolic heart failure; Translations: [Chronic systolic (congestive) heart failure]Onset: 641004-10-0330ArnimjlOxeglxrqe of lipid metabolism (3 sources)Pure hypercholesterolemia; Translations: [Pure hypercholesterolemia, unspecified]27-97-2286ZdcjxidDrlfgdrao of lipid metabolism (1 source)Pure hypercholesterolemia, unspecified; Translations: [PURE HYPERCHOLESTEROLEMIA UNSPEC]Onset: 86-52-1854Ghrbbyjrz hypertension (10 sources)Essential (primary) hypertension; Translations: [Essential hypertension]Onset: 12-19-2018 Resolved: 917630-40-4332EdhwligQgwbxfakimmwe symptoms and ill-defined conditions (8 sources)Hematuria, unspecified; Translations: [Retention of urine]Onset: 701659-85-9523JbqphoiuBynmeybrpdv of prostate (4 sources)Benign prostatic hypertrophy with outflow obstruction; Translations: [Benign prostatic hyperplasia with lower urinary tract symptoms]Onset: 263551-15-6206EmtdqiyIdqhhpcbbjjb with complications and secondary hypertension (3 sources)Hypertensive heart disease; Translations: [Hypertensive heart disease without heart failure]62-98-6623LpbwptyWijunte and fatigue (1 source)Other fatigue; Translations: [OTHER FATIGUE]Onset: 18-46-6381Wujuvlsq Mood disorders (4 sources)Depressive wbjiuspp68-61-8254WeuidhzRscqzaiqjfotqp (4 sources)Sijtqqqfz96-44-1407CenfciiLbpva aftercare (1 source)buttermaker (current) use of anticoagulants; Translations: [[facility] CURRNT USE ANTICOAGULANTS]Onset: 93-03-1476ZddycgccBqdsn aftercare (1 source)buttermaker (current) use of aspirin; Translations: [MANAGER OF SECURITY CURRENT USE OF ASPIRIN]Onset: 11-85-0422YygdbkofFpiuv aftercare (1 source)Other jail (current) drug therapy; Translations: [OTH [facility] CURRENT DRUG THERAPY]Onset: 87-23-5114VvrrmqtoHunhf and ill-defined heart disease (4 sources)Heart iwhkalk60-25-0201VtccugeCtdfx diseases of kidney and ureters (1 source)Secondary hyperparathyroidism; Translations: [Secondary hyperparathyroidism of renal origin]06-92-0669UtqtbmqJymln liver diseases (4 sources)Disease of -20-2087ZjtajxrAcghe nervous system disorders (3 sources)Disorder of brain; Translations: [Encephalopathy, unspecified]Onset: 657268-66-8075OyuzgmsYqfia nervous system disorders (1 source)Encephalopathy, unspecified; Translations: [Encephalopathy, unspecified]Onset: 71-35-0109CxscrvsRpibi screening for suspected conditions (not mental disorders or infectious disease) (3 sources)Electrocardiogram abnormal; Translations: [Abnormal electrocardiogram [ECG] [EKG]]Onset: 824814-75-0110EewmfdnqSuspfjrn codes; unclassified (1 source)Pain, unspecified; Translations: [Pain, unspecified]Onset: 06-07-2024 EpisodicUnclassified (1 source)Nadia AMSOnset: 52-02-7223Ycrxvjgoxlrz (1 source)Acute EncephalopathyOnset: 59-43-0626Fbdlhoxtqjyd (3 sources)Patient encounter ivruzc04-24-8024Snvbwck tract infections (1 source)Acute cystitis with hematuria; Translations: [ACUTE CYSTITIS WITH HEMATURIA]Onset: 43-14-7745Qolhgcbr Past or Other Problems Problem ClassificationProblemDateDocumented DateEpisodic/Chronic Administrative/social admission (3 sources)Patient encounter status; Translations: [Persons encountering health services in other specified circumstances]Onset: 146927-76-2588Ewhdmqhd Deficiency and other anemia (3 sources)Normocytic anemia; Translations: [Anemia, unspecified]Onset: 917667-14-1149JfowgklkWzvelhjkki and other anemia (3 sources)Iron deficiency anemia; Translations: [Iron deficiency anemia, unspecified]Onset: 981419-10-2064BsdkdwvvPresl and electrolyte disorders (6 sources)Dehydration; Translations: [Hypokalemia]Onset: EpisodicOther diseases of veins and lymphatics (3 sources)Venous insufficiency of leg; Translations: [Venous insufficiency (chronic) (peripheral)]Onset: 213996-44-7625DfpxiznyKwltoqb (2 sources)Syncope; Translations: [Syncope and collapse]Onset: 09-15-2017 02-79-9420Raktofwo Results Test NameValueInterpretationReference RangeFacilityUrine Cultureon 11-20-2024 Bacteria identified Cx Nom (U)ORGANISM: Gram Negative Bacilli (O:GNB) [place] Count 50,000 Organism Comments . Send Test to Ref. Lab Sent to Reference Lab for Sensitivity Testing ORGANISM: Staphylococcus aureus (O:STAAUR) [place] Count >100,000 Organism #1 - Pantoea species The organism isolated most closely resembles the identity indicated above. Antibiotic Amoxicillin/Clavulanic Acid S Cefepime S Cefoxitin I Cefpodoxime S Ertapenem S Levofloxacin S Tetracycline S S = Susceptible; I = Intermediate; R = Resistant Performed at: [place] [id number] [employer]: Yohan Gonzalez PhD, Phone: [phone] Aerobic KANWAL Charge (PCMIC38) SUSCEPTIBILITY ORGANISM: O:STAAUR [...] RESISTANT TO ALL B-LACTAM DRUGS. PERFORMED BY: [place] [address] PATHOLOGIST MECHANICAL CAR CHECKER RITU DALEY M.D.[facility] Physician GroupComment on above: Performed By: #### CUU #### [place] [address] USAAmbulatory Visit Summaryon 68-33-4870Rgaymqutmo Visit SummaryAmbulatory Visit Summary JOHNATHAN RODNEY :1955 [...] 40 mg Tab) potassium chloride (Potassium Chloride (Nba-Ydjf-Fwa 10)) sacubitril-valsartan (Entresto 24 mg-26 mg oral tablet) sulfamethoxazole-trimethoprim (Bactrim D.S. 800 mg-160 mg Tab) tamsulosin (tamsulosin 0.4 mg Cap) thiamine (thiamine 100 mg Tab) Procedures Performed None. What to do next Scheduled Follow-Up Appointments Monday 10:30 AM EDT Where: [facility] Monday 2:45 PM EDT Where: [facility] Medications What How Much When Instructions New sulfamethoxazole-trimethoprim (Bactrim D.S. 800 mg-160 mg Tab) 1 Tablets By Mouth 2 times a dayDuration: 3 Days Pickup at [facility] [id number] Unchanged acetaminophen (acetaminophen 325 mg Tab) By [...] one hour prior to procedure Pickup at [facility] [id number] Unchanged folic acid (folic acid 1 mg Tab) 1 Tablets Unchanged furosemide (furosemide 40 mg Tab) 1 Tablets Unchanged potassium chloride (Potassium Chloride (Xdl-Pqwr-Ypf 10)) By Mouth 2 times a day Unchanged sacubitril-valsartan (Entresto 24 mg-26 mg oral tablet) By Mouth 2 times a day Unchanged tamsulosin (tamsulosin 0.4 mg Cap) 1 Capsules Unchanged thiamine (thiamine 100 mg Tab) By Mouth Every day Pharmacy Information [facility] [id number]: [address], [place] [id number] [phone] Allergies No Known Medication Allergies Problems Ongoing [...] you for choosing us for your care. [facility] CampusAmbulatory Visit Summaryon 59-92-4742Ugqjtiqdvx Visit SummaryAmbulatory Visit Summary JOHNATHAN RODNEY :1955 [...] 40 mg Tab) potassium chloride (Potassium Chloride (Kxn-Tzai-Smu 10)) sacubitril-valsartan (Entresto 24 mg-26 mg oral tablet) tamsulosin (tamsulosin 0.4 mg Cap) thiamine (thiamine 100 mg Tab) Procedures Performed None. What to do next Scheduled Follow-Up Appointments Monday. 2024 8:30 AM EDT With: DONAL MCGARRY MD Where: [facility] [address] [place] [address]- Medications What How Much When Instructions Unchanged [...] 1 Tablets Unchanged potassium chloride (Potassium Chloride (Hcd-Ojti-Fnk 10)) By Mouth 2 times a day [...] you for choosing us for your care. [facility] WestUrology Office/Clinic Noteon 65-26-1715Xcguebj Office/Clinic NoteUrology Office/Clinic Note Chief Complaint f/u HPI Staff 68 year old male patient here to discuss his BPH with obstruction/lower urinary tract symptoms. Pt saw 06/25/24 for [employer] appt. Previous Dx: urinary retention, Other obstructive [...] urinary tract symptoms. Pt saw 06/25/24 for [employer] appt. Patient is accompanied by daughter today. [...] with voice recognition artificial intelligence software, specifically [employer], [employer] and or [employer]. Substitutions may have occurred due to [...] mg oral tablet, O (more content not included)...[facility] CampusComment on above:Result Comment: Electronically Signed By: DONAL MCGARRY MD\.br\Date and Time Signed: 07/19/24 14:25 EDT\.br\Electronically Co-Signed By: Brennan Fish\.br\Date and Time Co- Signed: 07/19/24 13:57 EDTUrology Office/Clinic Noteon [id number] Office/Clinic NoteUrology Office/Clinic Note Chief Complaint F/u to [facility] and [facility] HPI Staff New pt here for hospital f/u due to urinary retention. Never seen in our office before (verified onDataArk). [facility] ER 06/05/24 due to confusion/AMS and not feeling well. No evidence of UTI. Drug screen was positive for cannabinoids. 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 Found to have lactic acidosis causing a-fib and RVR. Was admitted to ICU. Then transferred to [place]. -Catheter was placed 06/05/24 but I cannot find documentation of PVR prior or output when they put the cath in. -Scenery Builder on admission 2.11 (typical looks in the mid 1s). Improved during hospital stay. -Abd US 06/05/24 showed dilated right renal pelvis and calyces. L side nl. -CT 06/07/24 showed simple 1.6cm LIP cyst. Extensive bilat perinephric edema. No collecting system dilation or evidence of ureteral calc. -Urine cx 1/31/25 neg. Blood cx neg x 2. Currently at [facility] but plan is for dc this Monday. [...] E&M of New Patient Moderate 45-59 Min 39643 2. BPH with obstruction/lower urinary tract symptoms [...] E&M of New Patient Moderate 45-59 Min 91871 3. Prostate cancer screening (Z12.5: Encounter for screening for malignant neoplasm of prostate) None on Clinisync. Will check w PCP office. If they don't have any, will need to update (perhaps after arenas removed?) Ordered: E&M of New Patient Moderate 45-59 Min 13575 Other obstructive and reflux uropathy (N13.8: Other obstructive and reflux uropathy) Follow-up With When Contact Information [facility] [address] [place] [address] Business (1) Additional Instructions: our billiard table assembler will be contacting you for follow-up Patient [...] Tab, 40 mg= 1 tab(s) Potassium Chloride (Lmo-Kwpq-Lfg 10), Oral, BID tamsulosin 0.4 mg Cap, 0.4 mg= 1 cap(s) thiamine 100 mg Tab, Oral, Daily Allergies No Known Medication Allergies Social History Tobacco Never (less than 100 in lifetime) Tobacco Use:. Never Smokeless Tobacco Use:. Household to (more content not included)...[facility] Comment on above:Result Comment: Electronically Signed By: KIKI OLIVIER PA-C\Date and Time Signed: 06/26/2511:05 ESTAmbulatory Visit Summaryon 99-86-2730Vigmvlzlvq Visit SummaryAmbulatory Visit Summary JOHNATHAN RODNEY :1955 Visit Date:06/25/2024 Ambulatory Visit Instructions Your Care Team Attending Physician - CAHRLINE CHARLTON, KIKI Pride Primary Care Physician - Ramon Sutherland MD This Is Your Medications List acetaminophen (acetaminophen 325 mg Tab) apixaban (apixaban 5 mg oral tablet) atorvastatin (atorvastatin 40 mg Tab) carvedilol (carvedilol 12.5 mg Tab) folic acid (folic acid 1 mg Tab) furosemide (furosemide 40 mg Tab) potassium chloride (Potassium Chloride (Qep-Gign-Kao 10)) tamsulosin (tamsulosin 0.4 mg Cap) thiamine [...] 1 Tablets Unchanged potassium chloride (Potassium Chloride (Gfg-Aprr-Sqi 10)) By Mouth 2 times a day [...] you for choosing us for your care. [facility] CampusCBC AND AUTO DIFFon 06-12-2024 ABSOLUTE BASOPHIL0.1 X10E9/LNormal0.0-0.2PSelect Medical TriHealth Rehabilitation HospitalComment on above:Performed By: #### 73374-9, 2131-9, PINR, 46323-0, AHP, CMP, THYR, FEPR, CBCA, 90013-0, 01877-9, 1967-11, 2283-12, 2275- #### [facility] ([id number]) [address], [address] [place], [place] [address]IRCNVMZH NEUTROPHIL3.4 X10E9/LNormal1.5-6.6ProCommunity Memorial HospitalComment on above:Performed By: #### 29764-3, 9, PINR, 17055-8, AHP, CMP, THYR, FEPR, CBCA, 26118-5, 51666-4, 1967-11, 2283-12, 2275-08 #### [facility] ([id number]) [address], [address] [place], [place] [address]Ilrjshgyj/100 WBC (Bld)2.5 %NormalProCommunity Memorial Hospital Comment on above:Performed By: #### 05100-4, 9, PINR, 17486-8, AHP, CMP, THYR, FEPR, CBCA, 10035-3, 11688-9, 1967-11, 2283-12, 2275-08 #### [facility] ([id number]) [address], [address] [place], [place] [address]Wbrmmgliwnd (Bld) [#/Vol]0.2 10*3/uLNormal0.0-0.4ProCommunity Memorial HospitalComment on above:Performed By: #### 68803-9, 9, PINR, 61477- 9, AHP, CMP, THYR, FEPR, CBCA, 76384-7, 00822-3, 1967-11, 2283-12, 2275-08 #### [facility] ([id number]) [address], [address] [place], [place] [address]Hkpfjdrjgbl/100 WBC (Bld)4.1 %NormalProMedica [facility] Comment on above:Performed By: #### 15095-9, 2131-9, PINR, 64282-5, AHP, CMP, THYR, FEPR, CBCA, 28162-5, 89673-2, 1967-11, 8, 2275-4 #### [facility] ([id number]) [address], [address] [place], [place] [address]Byefbrgksza distribution width (RBC) [Ratio]22.9 %High11.5-15.0 [facility] Hospital - ColumbusComment on above:Performed By: #### 95587-4, 2132-01, PINR, 77215-5, AHP, CMP, THYR, FEPR, CBCA, 62862-4, 19295-3, 1967-11, 2283-12, 2275- #### [facility] ([id number]) [address], [address] [place], [place] [address]VKMEBVRM8+AbnormalNONEProMedica [facility] Hospital - ColumbusComment on above: Performed By: #### 29282-3, 9, PINR, 66306-0, AHP, CMP, THYR, FEPR, CBCA, 35435-1, 09382-9, 1967-11, 2283-12, 2275-4 #### [facility] ([id number]) [address], [address] [place], [place] [address]Fiecfyrphd (Bld) [Volume fraction]31.1 %Rjz15-14GybMdwtkc [facility] - ColumbusComment on above:Performed By: #### 37385-6, 9, PINR, 01007-7, AHP, CMP, THYR, FEPR, CBCA, 81868-4, 72375-3, 1967-11, 2283-12, 2275-4 #### [facility] ([id number]) [address], [address] [place], [place] [address]Gskepcncll (Bld) [Mass/Vol]9.9 g/dLLow13.0-17.0ProCommunity Memorial HospitalComment on above:Performed By: #### 76736-8, 9, PINR, 99153-4, AHP, CMP, THYR, FEPR, CBCA, 49584-3, 39219-2, 1967-7, 2283-8, 6-4 #### [facility] ([id number]) [address], [address] [place], [place] [address]Zsalwpgmbgj (Bld) [#/Vol]0.6 10*3/uLLow1.0-3.5ProMedWayne HospitalComment on above:Performed By: #### 69897-3, 2132-01, PINR, 30628-3, AHP, CMP, THYR, FEPR, CBCA, 44397-1, 57731-3, 1967-11, 2283-12, 2275-4 #### [facility] ([id number]) [address] [facility], [address] [place], [place] [address]Xlnadktgoja/100 WBC (Bld)13.2 %NormalRegional Medical Center Comment on above:Performed By: #### 64486-2, 2132-01, PINR, 18048-4, AHP, CMP, THYR, FEPR, CBCA, 83628-4, 95460-0, 1967-11, 2283-12, 2275-4 #### [facility] ([id number]) [address] [facility], [address] [place], [place] [address]CBR (RBC) [Entitic mass]23.1 iyEzv01-06AdnEqhaxmRegional Medical Center Comment on above:Performed By: #### 46889-1, 2132-01, PINR, 91334-8, AHP, CMP, THYR, FEPR, CBCA, 54503-4, 48151-8, 1967-11, 2283-12, 6-4 #### [facility] ([id number]) [address] [facility], [address] [place], [place] [address]XKSE (RBC) [Mass/Vol]31.8 g/gCPkh04-41KhnSaqnllRegional Medical Center Comment on above:Performed By: #### 50808-9, 9, PINR, 34185-7, AHP, CMP, THYR, FEPR, CBCA, 62273-6, 06588-0, 1967-, 2283-, 2275- #### [facility] ([id number]) [address] [facility], [address] [place], [place] [address]ARJ (RBC) [Entitic vol]73 fZYwe74-525ZopDshydbRegional Medical Center Comment on above:Performed By: #### 80088-8, 9, PINR, 60225-3, AHP, CMP, THYR, FEPR, CBCA, 09044-6, 38543-2, 1967-, 2283-12, 2275- #### [facility] ([id number]) [address] [facility], [address] [place], [place] [address]Mdbelmsal (Bld) [#/Vol]0.4 10*3/uLNormal0-0.9Regional Medical CenterComment on above:Performed By: #### 15634-9, 9, PINR, 53466-6, AHP, CMP, THYR, FEPR, CBCA, 59221-7, 33056-7, 1967-11, 2283-12, 2275- #### [facility] ([id number]) [address], [address] [place], [place] [address]Etgdsjdcp/100 WBC (Bld)8.5 %NormalRegional Medical Center Comment on above:Performed By: #### 93732-6, 9, PINR, 91025-3, AHP, CMP, THYR, FEPR, CBCA, 78930-6, 33011-2, 1967-11, 2283-12, 2275- #### [facility] ([id number]) [address] [facility], [address] [place], [place] [address]Qbcrslodchk/100 WBC (Bld)71.7 %NormalProKettering Health Springfieldca [facility] Comment on above:Performed By: #### 47850-0, 9, PINR, 93598-2, AHP, CMP, THYR, FEPR, CBCA, 52405-1, 96327-4, 1967-11, 2283-12, 2275- #### [facility] ([id number]) [address] [facility], [address] [place], [place] [address]JIFWFCTJR6+AbnormalNONEProMedica [facility] - ColumbusComment on above:Performed By: #### 32814-2, 2132-01, PINR, 87721-1, AHP, CMP, THYR, FEPR, CBCA, 79782-1, 25673-8, 1967-11, 2283-12, 2275- #### [facility] ([id number]) [address] [facility], [address] [place], [place] [address]Nghegwii mean volume (Bld) [Entitic vol]8.0 fLNormal7-12 [facility] - ColumbusComment on above:Performed By: #### 76214-7, 2132-01, PINR, 39969-1, AHP, CMP, THYR, FEPR, CBCA, 38519-1, 49946-3, 1967-11, 2283-12, 2275- #### [facility] ([id number]) [address] [facility], [address] [place], [place] [address]Jsnspquwk (Bld) [#/Vol]226 10*3/pQBpzjqj096-525JcnCvbjrq [facility] - ColumbusComment on above:Performed By: #### 93459-5, 9, PINR, 44645-0, AHP, CMP, THYR, FEPR, CBCA, 17530-6, 87261-2, 1967-11, 2283-12, 2275- #### [facility] ([id number]) [address] [facility], [address] [place], [place] [address]LCRSJYOLTPJQB5+AbnormalNONEProMedica [facility] Hospital - ColumbusComment on above:Performed By: #### 18085-4, 2131-9, PINR, 02867-6, AHP, CMP, THYR, FEPR, CBCA, 99937-1, 35727-4, 1967-11, 2283-12, 2275-4 #### [facility] ([id number]) [address] [facility], [address] [place], [place] [address]PLK COUNT4.27 X10E12/LNormal4.10-5.70ProCommunity [facility] Comment on above:Performed By: #### 79389-1, 9, PINR, 77580-2, AHP, CMP, THYR, FEPR, CBCA, 92361-8, 84689-2, 1967-11, 2283-12, 2275- #### [facility] ([id number]) [address] [facility], [address] [place], [place] [address]LOELWFJM9+AbnormalNONEProMedica [facility] Hospital - ColumbusComment on above: Performed By: #### 43969-2, 9, PINR, 62058-8, AHP, CMP, THYR, FEPR, CBCA, 50488-4, 67778-1, 1967-11, 2283-12, 2275-4 #### [facility] ([id number]) [address] [facility], [address] [place], [place] [address]TJJ (Bld) [#/Vol]4.7 10*3/uLNormal4.0-11.0ProCommunity Memorial HospitalComment on above:Performed By: #### 20109-0, 9, PINR, 77609-6, AHP, CMP, THYR, FEPR, CBCA, 58853-8, 88220-9, 1967-11, 2283-12, 2275-4 #### [facility] ([id number]) [address] [facility], [address] [place], [place] [address]KIY auto differentialon 04-77-2669Qpekxvqgy (Bld) [#/Vol]0.1 10*3/uLProMedica Health SystemBasophils/100 WBC (Bld)2.5 %ProMedica Health SystemDacrocytes LM Ql (Bld)1+AbnormalNONE^NONEProMedica Health System Eosinophils (Bld) [#/Vol]0.2 10*3/uLProMedica Health SystemEosinophils/100 WBC (Bld)4.1 %ProMedica Health SystemErythrocyte distribution width (RBC) [Ratio] 22.9 %High11.5 - 15.0 %ProMedica Health SystemFragments LM Ql (Bld)1+Abnormal NONE^NONEProMedica Health SystemHematocrit (Bld) [Volume fraction]31.1 %Low39 - 49 %[facility]Medica Health SystemHemoglobin (Bld) [Mass/Vol]9.9 g/dLLow13.0 - 17.0 g/dLPremier Health Atrium Medical Center Health SystemInterpretation and review of laboratory results AbnormalGeorgetown Behavioral Hospitalca Health SystemLymphocytes (Bld) [#/Vol]0.6 10*3/uLLowProClay County Hospital Health SystemLymphocytes/100 WBC (Bld)13.2 %[facility] HospitalMCH (RBC) [Entitic mass]23.1 pgLow27 - 34 [facility] ShawMCHC (RBC) [Mass/Vol] 31.8 g/dLLow32 - 36 g/dLBellevue HospitalMCV (RBC) [Entitic vol]73 fLLow80 - 100 [facility] SystemMonocytes (Bld) [#/Vol]0.4 10*3/uLProMedica Health SystemMonocytes/100 WBC (Bld)8.5 %[facility] Health SystemNeutrophils (Bld) [#/Vol]3.4 10*3/uLProMedica Health SystemNeutrophils/100 WBC (Bld)71.7 % [facility] Health SystemOvalocytes LM Ql (Bld)1+AbnormalNONE^NONEProMedica Health SystemPlatelet mean volume (Bld) [Entitic vol]8 fL7 - 12 fLPProtestant Deaconess HospitalPlatelets (Bld) [#/Vol]226 10*3/uLBellevue HospitalPolychromasia LM Ql (Bld)1+AbnormalNONE^NONEBellevue HospitalRBC (Bld) [#/Vol]4.27 10*6/uL [facility] HospitalWBC corrected for nucl RBC Auto (Bld) [#/Vol]4.7ProEncompass HealthCBC AND AUTO DIFFon 11-47-1839NPNKEUXM BASOPHIL0.1 X10E9/LNormal0.0-0.2PSelect Medical TriHealth Rehabilitation HospitalComment on above: Performed By: #### 72811-6, 9, PINR, 55731-0, AHP, CMP, THYR, FEPR, CBCA, 73444-3, 56307-6, 1967-, 2283-12, 2275- #### [facility] ([id number]) [address] [place] [address], [address] [place], [place] [address]Wrvhgvztu/100 WBC (Bld)1.0 %NormalRegional Medical Center Comment on above:Performed By: #### 59015-9, 2132-01, PINR, 40966-1, AHP, CMP, THYR, FEPR, CBCA, 37763-8, 07895-7, 1967-, 2283-, 2275-4 #### [facility] ([id number]) [address] [facility], [address] [place], [place] [address]Ycvpkcphfse (Bld) [#/Vol]0.3 10*3/uLNormal0.0-0.4Regional Medical CenterComment on above:Performed By: #### 05742-1, 9, PINR, 15974- 9, AHP, CMP, THYR, FEPR, CBCA, 43849-3, 60025-9, 1967-11, 2283-12, 2275- #### [facility] ([id number]) [address], [address] [place], [place] [address]Apkhqzgagnp/100 WBC (Bld)4.9 %NormalProKettering Health Springfieldca [facility] Comment on above:Performed By: #### 00047-3, 2131-9, PINR, 22719-2, AHP, CMP, THYR, FEPR, CBCA, 05619-7, 29952-1, 1967-11, 2283-12, 2275- #### [facility] ([id number]) [address], [address] [place], [place] [address]Ppkomfocpnq distribution width (RBC) [Ratio]23.5 %High11.5-15.0 [facility] Hospital - ColumbusComment on above:Performed By: #### 37263-5, 2132-01, PINR, 17670-3, AHP, CMP, THYR, FEPR, CBCA, 13604-3, 34883-3, 1967-11, 2283-12, 2275- #### [facility] ([id number]) [address], [address] [place], [place] [address]AITFGSRK2+AbnormalNONEProMedica [facility] HospitalComment on above: Performed By: #### 45617-2, 9, PINR, 64373-2, AHP, CMP, THYR, FEPR, CBCA, 56453-7, 95332-6, 1967-11, 2283-12, 2275- #### [facility] ([id number]) [address], [address] [place], [place] [address]Gqmgagfkbw (Bld) [Volume fraction]32.3 %Rdu77-10SdrTbtmtfCommunity Memorial HospitalComment on above:Performed By: #### 39267-2, 9, PINR, 67603-5, AHP, CMP, THYR, FEPR, CBCA, 27995-1, 68728-3, 1967-11, 2283-12, 2275- #### [facility] ([id number]) [address], [address] [place], [place] [address]Wvhqbjuzbq (Bld) [Mass/Vol]10.0 g/dLLow13.0-17.0ProCommunity Memorial HospitalComment on above:Performed By: #### 49082-9, 9, PINR, 33966-0, AHP, CMP, THYR, FEPR, CBCA, 03778-1, 03327-1, 1967-11, 2283-12, 2275-4 #### [facility] ([id number]) [address], [address] [place], [place] [address]CWYBGPCQQDX3+AbnormalNONEPSelect Medical TriHealth Rehabilitation HospitalComment on above:Performed By: #### 61895-9, 2132-01, PINR, 62970-4, AHP, CMP, THYR, FEPR, CBCA, 89707-2, 58894-7, 1967-11, 2283-12, 2275- #### [facility] ([id number]) [address], [address] [place], [place] [address]Iyuxtmjwmdk (Bld) [#/Vol]0.4 10*3/uLLow1.0-3.5PSelect Medical TriHealth Rehabilitation HospitalComment on above:Performed By: #### 64399-5, 9, PINR, 83513-7, AHP, CMP, THYR, FEPR, CBCA, 21506-7, 62050-0, 1967-11, 2283-12, 2275- #### [facility] ([id number]) [address], [address] [place], [place] [address]Gzlxnlbhdlc/100 WBC (Bld)6.9 %NormalProCommunity Memorial Hospital Comment on above:Performed By: #### 42057-1, 9, PINR, 56735-6, AHP, CMP, THYR, FEPR, CBCA, 96332-6, 81241-1, 1967-11, 2283-12, 2275- #### [facility] ([id number]) [address], [address] [place], [place] [address]FED (RBC) [Entitic mass]22.7 taMeb85-25IakIrdzuoRegional Medical Center Comment on above:Performed By: #### 36879-6, 2-9, PINR, 45875-5, AHP, CMP, THYR, FEPR, CBCA, 57232-4, 90072-0, 1967-11, 2283-12, 2275- #### [facility] ([id number]) [address], [address] [place], [place] [address]SHBW (RBC) [Mass/Vol]31.1 g/hVPsh54-87FoyQhduapRegional Medical Center Comment on above:Performed By: #### 43049-4, 2131-9, PINR, 49253-3, AHP, CMP, THYR, FEPR, CBCA, 74556-6, 53668-7, 1967-11, 2283-12, 2275-08 #### [facility] ([id number]) [address], [address] [place], [place] [address]FPU (RBC) [Entitic vol]73 wWJmq09-897RsfGondufRegional Medical Center Comment on above:Performed By: #### 39785-9, 2-9, PINR, 99710-5, AHP, CMP, THYR, FEPR, CBCA, 10992-1, 89708-9, 1967-11, 2283-12, 2275- #### [facility] ([id number]) [address], [address] [place], [place] [address]Xhfmzyswt (Bld) [#/Vol]0.4 10*3/uLNormal0-0.9Regional Medical CenterComment on above:Performed By: #### 35030-1, 2131-9, PINR, 62268-3, AHP, CMP, THYR, FEPR, CBCA, 60191-8, 09692-5, 1967-11, 2283-12, 2275-08 #### [facility] ([id number]) [address], [address] [place], [place] [address]Chrdqjibr/100 WBC (Bld)7.8 %NormalProCommunity Memorial Hospital Comment on above:Performed By: #### 19171-7, 2131-9, PINR, 55584-4, AHP, CMP, THYR, FEPR, CBCA, 79729-9, 72299-3, 1967-11, 2283-12, 2275- #### [facility] ([id number]) [address] [facility], [address] [place], [place] [address]Szymsyylfan (Bld) [#/Vol]4.5 10*3/uLNormal1.5-6.6Pro[facility] - ColumbusComment on above:Performed By: #### 93666-6, 9, PINR, 89471- 9, AHP, CMP, THYR, FEPR, CBCA, 53185-0, 80278-1, 1967-11, 2283-12, 2275-08 #### [facility] ([id number]) [address] [facility], [address] [place], [place] [address]TVSVGYZFR5+AbnormalNONEProMedica [facility] Hospital - ColumbusComment on above:Performed By: #### 30560-1, 9, PINR, 01979-1, AHP, CMP, THYR, FEPR, CBCA, 20450-2, 15255-1, 1967-11, 2283-12, 2275-08 #### [facility] ([id number]) [address] [facility], [address] [place], [place] [address]Ytxaukze mean volume (Bld) [Entitic vol]8.7 fLNormal7-12 [facility] Hospital - ColumbusComment on above:Performed By: #### 39930-5, 2131-9, PINR, 52828-4, AHP, CMP, THYR, FEPR, CBCA, 47507-5, 35536-4, 1967-11, 2283-, 2275- #### [facility] ([id number]) [address] [place] [address], [address] [place], [place] [address]Mwmkfdtsx (Bld) [#/Vol]226 10*3/nKPifzdb404-752EvuZpckyz [facility] HospitalComment on above:Performed By: #### 84054-6, 9, PINR, 23097-3, AHP, CMP, THYR, FEPR, CBCA, 95060-2, 65074-4, 1967-11, 2283-12, 2275- #### [facility] ([id number]) [address] [place] [address], [address] [place], [place] [address]SMUPJTGPCJKEA0+AbnormalNONEProMedica [facility] HospitalComment on above:Performed By: #### 10378-3, 9, PINR, 23830-1, AHP, CMP, THYR, FEPR, CBCA, 16582-7, 07008-2, 1967-11, 2283-12, 2275- #### [facility] ([id number]) [address] [place] [address], [address] [place], [place] [address]UOX COUNT4.42 X10E12/LNormal4.10-5.70ProKettering Health Springfieldca [facility] Comment on above:Performed By: #### 64926-0, 9, PINR, 25555-4, AHP, CMP, THYR, FEPR, CBCA, 83255-7, 10206-4, 1967-11, 2283-12, 2275- #### [facility] ([id number]) [address] [place] [address], [address] [place], [place] [address]ISF OAXKFEIVMK05.4 %NormalProMedica Houston HospitalComment on above:Performed By: #### 22130-5, 9, PINR, 80131-4, AHP, CMP, THYR, FEPR, CBCA, 91659-5, 72759-5, 1967-11, 2283-8, 2275-4 #### [facility] ([id number]) [address], [address] [place], [place] [address]QXW (Bld) [#/Vol]5.7 10*3/uLNormal4.0-11.0Regional Medical CenterComment on above:Performed By: #### 40494-9, 9, PINR, 27048-5, AHP, CMP, THYR, FEPR, CBCA, 07517-1, 82175-6, 1967-11, 2283-8, 2275- #### [facility] ([id number]) [address], [address] [place], [place] [address]LHB auto differentialon 75-90-6888Oapfwsmgr (Bld) [#/Vol]0.1 10*3/uLBellevue HospitalBasophils/100 WBC (Bld)1 %[facility] Eosinophils (Bld) [#/Vol]0.3 10*3/uLBellevue HospitalEosinophils/100 WBC (Bld)4.9 %[facility] HospitalErythrocyte distribution width (RBC) [Ratio] 23.5 %High11.5 - 15.0 %[facility] HospitalFragments LM Ql (Bld)1+Abnormal NONE^[facility] HospitalHematocrit (Bld) [Volume fraction]32.3 %Low39 - 49 %[facility] HospitalHemoglobin (Bld) [Mass/Vol]10 g/dLLow13.0 - 17.0 g/dL [facility] HospitalHypochromia Ql (Bld)1+AbnormalNONE^[facility] SystemInterpretation and review of laboratory resultsAbnormalBellevue HospitalLymphocytes (Bld) [#/Vol]0.4 10*3/uLLowKettering Health Hamilton System Lymphocytes/100 WBC (Bld)6.9 %[facility] HospitalMCH (RBC) [Entitic mass] 22.7 pgLow27 - 34 [facility] ShawMCHC (RBC) [Mass/Vol]31.1 g/dLLow32 - 36 g/dLBellevue HospitalMCV (RBC) [Entitic vol]73 fLLow80 - 100 fL [facility] HospitalMonocytes (Bld) [#/Vol]0.4 10*3/[facility] Monocytes/100 WBC (Bld)7.8 %[facility] HospitalNeutrophils (Bld) [#/Vol]4.5 10*3/[facility] CenterOvalocytes LM Ql (Bld)2+AbnormalNONE^[facility] HospitalPlatelet mean volume (Bld) [Entitic vol]8.7 fL7 - 12 [facility] SystemPlatelets (Bld) [#/Vol]226 10*3/[facility] Polychromasia LM Ql (Bld)1+AbnormalNONE^[facility] HospitalRBC (Bld) [#/Vol]4.42 10*6/[facility] Hospitalegmented neutrophils/100 WBC (Bld) 79.4 %[facility] HospitalWBC corrected for nucl RBC Auto (Bld) [#/Vol]5.7 [facility] CenterCOMPREHENSIVE METABOLIC PANELon 24-75-2366Nqhocea [Mass/Vol]3.4 g/dLNormal3.2-5.3PSelect Medical [facility] Comment on above:Performed By: #### 36505-2, 2132-01, PINR, 04121-6, AHP, CMP, THYR, FEPR, CBCA, 25636-5, 92273-1, 1967-11, 2283-12, 2275- #### [facility] ([id number]) [address], [address] [place], [place] [address]RKF [Catalytic activity/Vol]67 U/CQrxgea16-514ZsqGwysefRegional Medical CenterComment on above:Performed By: #### 01535-1, 2132-01, PINR, 99532-6, AHP, CMP, THYR, FEPR, CBCA, 67885-6, 74986-4, 1967-11, 2283-12, 2275-08 #### [facility] ([id number]) [address], [address] [place], [place] [address]RUO [Catalytic activity/Vol]21 U/LNormal0-40ProCommunity Memorial HospitalComment on above:Performed By: #### 40519-3, 9, PINR, 66387-7, AHP, CMP, THYR, FEPR, CBCA, 46762-6, 44805-5, 1967-11, 2283-12, 2275- #### [facility] ([id number]) [address], [address] [place], [place] [address]Tfikl gap [Moles/Vol]10 mmol/LNormal5-15ProCommunity Memorial HospitalComment on above:Performed By: #### 21162-9, 9, PINR, 43490-6, AHP, CMP, THYR, FEPR, CBCA, 87982-2, 94998-9, 1967-11, 2283-12, 2275-08 #### [facility] ([id number]) [address] [facility], [address] [place], [place] [address]ZGA [Catalytic activity/Vol]28 U/LNormal0-41ProCommunity Memorial HospitalComment on above:Performed By: #### 35335-7, 9, PINR, 48607-9, AHP, CMP, THYR, FEPR, CBCA, 02022-9, 37756-3, 1967-11, 2283-12, 2275- #### [facility] ([id number]) [address] [facility], [address] [place], [place] [address]Mtuyczdej [Mass/Vol]0.7 mg/dLNormal0.3-1.2Pro[facility] Hospital - ColumbusComment on above:Performed By: #### 06258-6, 9, PINR, 37300-2, AHP, CMP, THYR, FEPR, CBCA, 00549-4, , 1967-11, 2283-12, 2275-08 #### [facility] ([id number]) [address] [facility], [address] [place], [place] [address]Akbzczd [Mass/Vol]8.3 mg/dLLow8.5-10.5PSelect Medical [facility] Comment on above:Performed By: #### 52402-8, 9, PINR, 44072-6, AHP, CMP, THYR, FEPR, CBCA, 71203-4, 65300-9, 1967-11, 2283-12, 2275-08 #### [facility] ([id number]) [address] [facility], [address] [place], [place] [address]Vpcueoxh [Moles/Vol]105 mmol/AFwzhrn19-182TqjYnetoj Toledo HospitalComment on above:Performed By: #### 29969-2, 2132-01, PINR, 74402-3, AHP, CMP, THYR, FEPR, CBCA, 52886-2, 75618-3, 1967-11, 2283-12, 2275-08 #### [facility] ([id number]) [address] [facility], [address] [place], [place] [address]AD9 [Moles/Vol]26 mmol/XJexlii44-55YkfMoiznqSelect Medical TriHealth Rehabilitation Hospital Comment on above:Performed By: #### 38674-5, 9, PINR, 60408-8, AHP, CMP, THYR, FEPR, CBCA, 64574-7, 69530-5, 1967-11, 2283-12, 2275-08 #### [facility] ([id number]) [address] [facility], [address] [place], [place] [address]Xkthesjknu [Mass/Vol]1.23 mg/dLNormal0.60-1.30ProCommunity Memorial HospitalComment on above:Result Comment: METHOD TRACEABLE TO IDMS STANDARD Performed By: #### 07776-8, 2132-01, PINR, 00407-3, AHP, CMP, THYR, FEPR, CBCA, 36421-1, 06074-1, 1967-11, 2283-12, 2275-08 #### [facility] ([id number]) [address] [address] [place], [place] [address]GUR/1.73 sq M.predicted among non-blacks MDRD (S/P/Bld) [Vol rate/Area]64 mL/min/{1.73_m2}Normal>59ProCommunity Memorial HospitalComment on above: Result Comment: Reported eGFR is based on the CKD-EPI 2020 equation that does not use a race coefficient.Performed By: #### 64275-2, 2132-01, PINR, 97018-0, AHP, CMP, THYR, FEPR, CBCA, , , 1967-11, 2283-12, 2275-08 #### [facility] ([id number]) [address] [address]Kvyzdeo [Mass/Vol]100 mg/rYBblc94-36ZqrVgbdcjCommunity Memorial Hospital Comment on above:Performed By: #### 48610-7, 2132-01, PINR, 65219-3, AHP, CMP, THYR, FEPR, CBCA, , 59256-5, 1967-11, 2283-12, 2275-08 #### [facility] ([id number]) [address] [address] [place], [place] [address]Dwhhoetsr [Moles/Vol]3.7 mmol/LNormal3.5-5.0ProCommunity Memorial HospitalComment on above:Performed By: #### 81748-3, 2132-01, PINR, 37822-2, AHP, CMP, THYR, FEPR, CBCA, , , 1967-11, 2283-12, 2275- #### [facility] ([id number]) [address] [facility], [facility] [address] [place], [place] [address]Oaoeaog [Mass/Vol]6.0 g/dLNormal6.0-8.0[facility] Comment on above:Performed By: #### 29008-0, 2131-9, PINR, 01857-8, AHP, CMP, THYR, FEPR, CBCA, 44015-8, 14377-0, 1967-, 2283-8, 2275-4 #### [facility] ([id number]) [address] [place] [address], [address] [place], [place] [address]Wwodpg [Moles/Vol]141 mmol/SQimshd804-855MhcNjpjzm Toledo HospitalComment on above:Performed By: #### 75395-5, 2132-01, PINR, 88838-5, AHP, CMP, THYR, FEPR, CBCA, 79759-4, 26665-7, 1967-11, 2283-12, 2275-4 #### [facility] ([id number]) [address] [place] [address], [address] [place], [place] [address]Gehl nitrogen [Mass/Vol]27 mg/dLNormal5-27ProCommunity Memorial HospitalComment on above:Performed By: #### 85967-6, 2132-01, PINR, 40917-7, AHP, CMP, THYR, FEPR, CBCA, 76850-5, 55239-5, 1967-11, 2283-12, 2275- #### [facility] ([id number]) [address] [facility], [address] [place], [place] [address]Swnlegehuxslw metabolic panelon 74-17-4831Rqswwop [Mass/Vol]3.4 g/dL3.2 - 5.3 g/dLProMedica Health SystemALP [Catalytic activity/Vol]67 U/L39 - 130 U/LProMedica Health SystemALT No additional P-5'-P [Catalytic activity/Vol] 21 U/L0 - 40 U/LProMedica Health SystemAnion gap [Moles/Vol]10 mmol/L5 - 15 mmol/LProMedica Health SystemAST [Catalytic activity/Vol]28 U/L0 - 41 U/L [facility] HospitalBilirubin [Mass/Vol]0.7 mg/dL0.3 - 1.2 mg/dLKettering Health Hamilton SystemCalcium [Mass/Vol]8.3 mg/dLLow8.5 - 10.5 mg/dLBellevue HospitalChloride [Moles/Vol]105 mmol/L98 - 109 mmol/[facility] Health SystemCO2 [Moles/Vol]26 mmol/L22 - 32 mmol/[facility] SystemCreatinine [Mass/Vol] 1.23 mg/dL0.60 - 1.30 mg/dLBellevue HospitalComment on above:METHOD TRACEABLE TO IDIN STANDARDeGFR (CKD-EPI)non-race idbyvrsny77- [facility] HospitalComment on above: Reported eGFR is based on the CKD-EPI 2020 equation that does not use a race coefficient. Glucose [Mass/Vol]100 mg/yVDjax78 - 99 mg/dLBellevue Hospital Interpretation and review of laboratory resultsAbnormalBellevue Hospital Potassium [Moles/Vol]3.7 mmol/L3.5 - 5.0 mmol/[facility] SystemProtein [Mass/Vol]6 g/dL6.0 - 8.0 g/dLBlue Ridge Regional Hospitalodium [Moles/Vol]141 mmol/L134 - 146 mmol/[facility] SystemUrea nitrogen [Mass/Vol]27 mg/dL5 - 27 mg/dLSt. Mary Medical CenterHEMOGLOBINon 06-11-2024 Hemoglobin (Bld) [Mass/Vol]10.4 g/dLLow13.0-17.0Regional Medical CenterComment on above:Performed By: #### 51890-8, 2132-9, PINR, 00244-6, AHP, CMP, THYR, FEPR, CBCA, 58747-2, 00487-7, 1968-7, 2284-8, 2276-4 #### [facility] ([id number]) [address] [facility], [address] [place], [place] [address]Khumbqfaxvng 52-07-8960Osqutrscsv (Bld) [Mass/Vol]10.4 g/dLLow 13.0 - 17.0 g/dLBellevue HospitalHemoglobin (Bld) [Mass/Vol]on 06-11-2024 Interpretation and review of laboratory resultsAbnormalClarion HospitalPOTASSIUMon 68-32-3417Znmwemale [Moles/Vol]4.0 mmol/L Normal3.5-5.0Regional Medical CenterComment on above:Performed By: #### 94546- 0, 2132-01, PINR, 14652-7, AHP, CMP, THYR, FEPR, CBCA, 83115-3, 38220-2, 1967-, 2283-, 2275- #### [facility] ([id number]) [address] [place] [address], [address] [place], [place] [address]Clmajpmoefc 34-61-6710Qzcfhnbon [Moles/Vol]4 mmol/L3.5 - 5.0 mmol/LPrBarnesville HospitalPotassium [Moles/Vol]on 80-45-2872TtaDcsdwdBellevue HospitalBASIC METABOLIC PANLon 84-72-9971Hnygq gap [Moles/Vol]9 mmol/LNormal5-15 [facility] Medical CenterComment on above:Performed By: #### 27797-9, 2132-01, PINR, 16911-1, AHP, CMP, THYR, FEPR, CBCA, 31081-9, 33213-4, 1967-11, 2283-12, 2275-4 #### [facility] ([id number]) [address] [facility], [address] [place], [place] [address]Lfksdfw [Mass/Vol]8.3 mg/dLLow8.5-10.5PSelect Medical TriHealth Rehabilitation Hospital Comment on above:Performed By: #### 28863-0, 2132-01, PINR, 77979-7, AHP, CMP, THYR, FEPR, CBCA, 63721-2, 78915-2, 1967-, 2283-12, 2275-4 #### [facility] ([id number]) [address], [address] [place], [place] [address]Epusdpny [Moles/Vol]103 mmol/CVcuobr43-445RjdCthlkp [facility]edo HospitalComment on above:Performed By: #### 90847-7, 2132-01, PINR, 81319-9, AHP, CMP, THYR, FEPR, CBCA, 87711-4, 90826-3, 1967-11, 2283-12, 2275-08 #### [facility] ([id number]) [address], [address] [place], [place] [address]YC7 [Moles/Vol]28 mmol/YCgtbro24-17DnbWalwcgSelect Medical TriHealth Rehabilitation Hospital Comment on above:Performed By: #### 84830-9, 2132-01, PINR, 57132-7, AHP, CMP, THYR, FEPR, CBCA, 91931-0, 24922-0, 1967-11, 2283-12, 2275-08 #### [facility] ([id number]) [address], [address] [place], [place] [address]Ydfukttbxn [Mass/Vol]1.28 mg/dLNormal0.60-1.30ProCommunity Memorial HospitalComment on above:Result Comment: METHOD TRACEABLE TO IDMS STANDARD Performed By: #### 67742-7, 2132-01, PINR, 65847-7, AHP, CMP, THYR, FEPR, CBCA, 32823-1, 95452-3, 1967-11, 2283-12, 2275-08 #### [facility] ([id number]) [address], [address] [place], [place] [address]IAL/1.73 sq M.predicted among non-blacks MDRD (S/P/Bld) [Vol rate/Area]61 mL/min/{1.73_m2}Normal>59ProCommunity Memorial HospitalComment on above: Result Comment: Reported eGFR is based on the CKD-EPI 2020 equation that does not use a race coefficient.Performed By: #### 59587-3, 9, PINR, 81957-6, AHP, CMP, THYR, FEPR, CBCA, 08435-8, 87605-9, 1967-11, 2283-12, 2275-08 #### [facility] ([id number]) [address], [address] [place], [place] [address]Ycyybtv [Mass/Vol]103 mg/zRIasy74-38VutKihbsuCommunity Memorial Hospital Comment on above:Performed By: #### 26410-1, 2132-01, PINR, 77818-9, AHP, CMP, THYR, FEPR, CBCA, 17926-0, 16576-6, 1967-11, 2283-12, 2275- #### [facility] ([id number]) [address], [address] [place], [place] [address]Oquygvlmm [Moles/Vol]3.4 mmol/LLow3.5-5.0ProCommunity Memorial HospitalComment on above:Performed By: #### 21587-1, 2132-01, PINR, 08778-8, AHP, CMP, THYR, FEPR, CBCA, , , 1967-11, 2283-12, 2275-08 #### [facility] ([id number]) [address], [address] [place], [place] [address]Rrecpf [Moles/Vol]140 mmol/AQogswj284-722OxnOmxebv [facility]edo HospitalComment on above:Performed By: #### 66599-3, 2132-01, PINR, 23573-8, AHP, CMP, THYR, FEPR, CBCA, 55036-8, 81374-4, 1967-11, 2283-12, 2275-08 #### [facility] ([id number]) [address], [address] [place], [place] [address]Jdzb nitrogen [Mass/Vol]22 mg/dLNormal5-27ProCommunity Memorial HospitalComment on above:Performed By: #### 16684-4, 2132-01, PINR, 02439-1, AHP, CMP, THYR, FEPR, CBCA, 04976-2, 04754-7, 1967-, 2283-, 2275- #### [facility] ([id number]) [address] [facility], [address] [place], [place] [address]Dcyyl Metabolic Panelon 72-31-8377Ykiye gap [Moles/Vol]9 mmol/L5 - 15 mmol/LPrColorado Acute Long Term Hospital Health SystemCalcium [Mass/Vol]8.3 mg/dLLow8.5 - 10.5 mg/dLKettering Health Hamilton SystemChloride [Moles/Vol]103 mmol/L98 - 109 mmol/L [facility] SystemCO2 [Moles/Vol]28 mmol/L22 - 32 mmol/LPrColorado Acute Long Term Hospital Health SystemCreatinine [Mass/Vol]1.28 mg/dL0.60 - 1.30 mg/dLBellevue Hospital Comment on above:METHOD TRACEABLE TO IDMS STANDARDeGFR (CKD-EPI)non-race zkumypajs55- [facility] HospitalComment on above: Reported eGFR is based on the CKD-EPI 2020 equation that does not use a race coefficient. Glucose [Mass/Vol]103 mg/wPIuiz00 - 99 mg/dLBellevue Hospital Interpretation and review of laboratory resultsAbnormalKettering Health Hamilton System Potassium [Moles/Vol]3.4 mmol/LLow3.5 - 5.0 mmol/LProMedica Health SystemSodium [Moles/Vol]140 mmol/L134 - 146 mmol/[facility] Fallsica Health SystemUrea nitrogen [Mass/Vol]22 mg/dL5 - 27 mg/dLKettering Health Hamilton SystemBellevue HospitalCBC AND AUTO DIFFon 49-30-8985WENGSLMIPJU0+AbnormalNONEPSelect Medical TriHealth Rehabilitation Hospital Comment on above:Performed By: #### 78230-2, 2132-01, PINR, 04179-7, AHP, CMP, THYR, FEPR, CBCA, 47247-8, 40603-8, 1967-, 2283-, 2275- #### [facility] ([id number]) [address], [address] [place], [place] [address]Hmbuvkwmvfly Ql (Bld)2+AbnormalMemorial Health System Comment on above:Performed By: #### 67020-6, 2131-9, PINR, 99105-2, AHP, CMP, THYR, FEPR, CBCA, 70219-1, 57873-4, 1967-11, 2283-12, 2275- #### [facility] ([id number]) [address] [facility], [address] [place], [place] [address]LURX9+AbnormalNONEPSelect Medical TriHealth Rehabilitation HospitalComment on above: Performed By: #### 84444-1, 9, PINR, 36907-8, AHP, CMP, THYR, FEPR, CBCA, 46001-7, 72009-7, 1967-11, 2283-12, 2275- #### [facility] ([id number]) [address] [facility], [address] [place], [place] [address]Csxhdlbwxty (Bld) [#/Vol]0.2 10*3/uLNormal0.0-0.4ProCommunity Memorial HospitalComment on above:Performed By: #### 37254-3, 9, PINR, 63037- 9, AHP, CMP, THYR, FEPR, CBCA, 14326-8, 62094-3, 1967-11, 2283-12, 2275- #### [facility] ([id number]) [address], [address] [place], [place] [address]Hjzwklemupi/100 WBC (Bld)3.0 %NormalRegional Medical Center Comment on above:Performed By: #### 10534-0, 9, PINR, 71831-5, AHP, CMP, THYR, FEPR, CBCA, 50483-7, 08262-6, 1967-11, 2283-12, 2275- #### [facility] ([id number]) [address], [address] [place], [place] [address]Lusoyrltwwu distribution width (RBC) [Ratio]23.3 %High11.5-15.0 [facility] Hospital - ColumbusComment on above:Performed By: #### 30863-2, 9, PINR, 79537-2, AHP, CMP, THYR, FEPR, CBCA, 13384-2, 57682-5, 1967-11, 2283-12, 2275-08 #### [facility] ([id number]) [address] [facility], [address] [place], [place] [address]IDQBYSEG6+AbnormalNONEProMedica Select Medical Specialty Hospital - ColumbusComment on above: Performed By: #### 95443-2, 2132-01, PINR, 77912-1, AHP, CMP, THYR, FEPR, CBCA, 13165-4, 32840-1, 1967-11, 2283-12, 2275- #### [facility] ([id number]) [address] [facility], [address] [place], [place] [address]Bkxxbxvvdm (Bld) [Volume fraction]31.8 %Zyp33-55VyzEgzfwwCommunity Memorial HospitalComment on above:Performed By: #### 10770-5, 2132-01, PINR, 52071-7, AHP, CMP, THYR, FEPR, CBCA, 09417-4, 85859-9, 1967-11, 2283-12, 2275- #### [facility] ([id number]) [address] [facility], [address] [place], [place] [address]Csndynsmfr (Bld) [Mass/Vol]9.9 g/dLLow13.0-17.0ProCommunity Memorial HospitalComment on above:Performed By: #### 78785-6, 9, PINR, 97230-7, AHP, CMP, THYR, FEPR, CBCA, 42051-6, 28030-6, 1967-11, 2283-12, 2275-4 #### [facility] ([id number]) [address], [address] [place], [place] [address]CHAYTPWJOTL6+AbnormalNONEPSelect Medical TriHealth Rehabilitation HospitalComment on above:Performed By: #### 94882-6, 2131-9, PINR, 84397-7, AHP, CMP, THYR, FEPR, CBCA, 26093-9, 64816-5, 1967-11, 2283-12, 2275- #### [facility] ([id number]) [address], [address] [place], [place] [address]Xnkjbqwhkdy (Bld) [#/Vol]0.6 10*3/uLLow1.0-3.5ProMedWayne HospitalComment on above:Performed By: #### 36921-2, 9, PINR, 23180-1, AHP, CMP, THYR, FEPR, CBCA, 31224-3, 49838-8, 1967-11, 2283-12, 2275- #### [facility] ([id number]) [address], [address] [place], [place] [address]Xltsdrdhcej/100 WBC (Bld)9.0 %NormalRegional Medical Center Comment on above:Performed By: #### 88962-1, 9, PINR, 35187-8, AHP, CMP, THYR, FEPR, CBCA, 21274-3, 48336-0, 1967-11, 2283-12, 2275- #### [facility] ([id number]) [address], [address] [place], [place] [address]EIV (RBC) [Entitic mass]22.6 jxZgs20-09IavNuukjyRegional Medical Center Comment on above:Performed By: #### 08320-8, 2131-9, PINR, 50778-5, AHP, CMP, THYR, FEPR, CBCA, 33500-0, 34653-6, 1967-11, 2283-12, 2275-08 #### [facility] ([id number]) [address], [address] [place], [place] [address]BYVL (RBC) [Mass/Vol]31.1 g/mKHjl61-33FtrQwknvoRegional Medical Center Comment on above:Performed By: #### 17935-0, 2131-9, PINR, 79661-8, AHP, CMP, THYR, FEPR, CBCA, 08785-6, 95536-2, 1967-11, 2283-12, 2275-08 #### [facility] ([id number]) [address] [facility], [address] [place], [place] [address]XVT (RBC) [Entitic vol]73 vLSji37-875ZswTgcfvgRegional Medical Center Comment on above:Performed By: #### 45417-9, 2131-9, PINR, 38476-3, AHP, CMP, THYR, FEPR, CBCA, 93737-8, 92612-1, 1967-11, 2283-12, 2275-08 #### [facility] ([id number]) [address] [facility], [address] [place], [place] [address]Srupeapjf (Bld) [#/Vol]0.5 10*3/uLNormal0-0.9Regional Medical CenterComment on above:Performed By: #### 20889-9, 9, PINR, 05656-9, AHP, CMP, THYR, FEPR, CBCA, 74983-8, 75561-5, 1967-11, 2283-12, 2275-08 #### [facility] ([id number]) [address] [facility], [address] [place], [place] [address]Ssfjzonyl/100 WBC (Bld)8.0 %NormalRegional Medical Center Comment on above:Performed By: #### 34848-5, 2131-9, PINR, 14192-4, AHP, CMP, THYR, FEPR, CBCA, 69377-7, 04618-0, 1967-11, 2283-12, 2275- #### [facility] ([id number]) [address] [facility], [address] [place], [place] [address]Kmueyxvxxjk (Bld) [#/Vol]5.4 10*3/uLNormal1.5-6.6ProMedica Houston HospitalComment on above:Performed By: #### 18946-2, 9, PINR, 14003- 9, AHP, CMP, THYR, FEPR, CBCA, 13782-5, 81624-4, 1967-11, 2283-12, 2275-08 #### [facility] ([id number]) [address] [facility], [address] [place], [place] [address]PYFIGXKFJ2+AbnormalNONEProMedica Houston HospitalComment on above:Performed By: #### 53387-5, 9, PINR, 66242-4, AHP, CMP, THYR, FEPR, CBCA, 63956-2, 45967-4, 1967-11, 2283-12, 2275- #### [facility] ([id number]) [address] [facility], [address] [place], [place] [address]Framikwm mean volume (Bld) [Entitic vol]8.7 fLNormal7-12 [facility]ica Houston HospitalComment on above:Performed By: #### 58316-8, 9, PINR, 84279-1, AHP, CMP, THYR, FEPR, CBCA, 73836-5, 12501-9, 1967-11, 2283-12, 2275- #### [facility] ([id number]) [address] [place] [address], [address] [place], [place] [address]Qsdegdxiy (Bld) [#/Vol]243 10*3/yRHyyvvk890-344IljByqyyb Houston HospitalComment on above:Performed By: #### 82920-3, 9, PINR, 34301-3, AHP, CMP, THYR, FEPR, CBCA, 34576-9, 83916-4, 1967-7, 2283-8, 6-4 #### [facility] ([id number]) [address] [place] [address], [address] [place], [place] [address]PTW COUNT4.37 X10E12/LNormal4.10-5.70[facility] Comment on above:Performed By: #### 55993-3, 2132-01, PINR, 02309-1, AHP, CMP, THYR, FEPR, CBCA, 91552-9, 66781-1, 1967-, 8, 2275- #### [facility] ([id number]) [address] [place] [address], [address] [place] [address] KHTRSVONWC11.0 %NormalProCommunity Memorial HospitalComment on above:Performed By: #### 04586-1, 2132-01, PINR, 26042-0, AHP, CMP, THYR, FEPR, CBCA, 00852-4, 98327-9, 1967-, 2283-12, 2275- #### [facility] ([id number]) [address] [place] [address], [address] [place] [address]GLB (Bld) [#/Vol]6.7 10*3/uLNormal4.0-11.0ProCommunity Memorial HospitalComment on above:Performed By: #### 71265-4, 2132-01, PINR, 98775-3, AHP, CMP, THYR, FEPR, CBCA, 96484-1, 63714-8, 1967-11, 2283-12, 2275- #### [facility] ([id number]) [address] [place] [address], [address] [place] [address]KEM auto differentialon 61-31-4012Iywmjtzyezau LM Ql (Bld)2+ AbnormalNONE^NONEProMedica Health SystemAnisocytosis Ql (Bld)2+AbnormalNONE^NONE [facility] SystemBurr cells LM Ql (Bld)1+AbnormalNONE^NONEBellevue HospitalEosinophils (Bld) [#/Vol]0.2 10*3/[facility] Eosinophils/100 WBC (Bld)3 %Bellevue HospitalErythrocyte distribution width (RBC) [Ratio]23.3 %High11.5 - 15.0 %[facility] Hamilton SystemFragments LM Ql (Bld)1+AbnormalNONE^NONEBellevue HospitalHematocrit (Bld) [Volume fraction]31.8 %Low39 - 49 %B[facility]vue HospitalHemoglobin (Bld) [Mass/Vol]9.9 g/dLLow13.0 - 17.0 g/dLBellevue HospitalHypochromia Ql (Bld)1+Abnormal NONE^[facility] HospitalInterpretation and review of laboratory results AbnormalBellevue HospitalLymphocytes (Bld) [#/Vol]0.6 10*3/uLLowBellevue HospitalLymphocytes/100 WBC (Bld)9 %Bellevue HospitalMCH (RBC) [Entitic mass]22.6 pgLow27 - 34 [facility] ShawMCHC (RBC) [Mass/Vol] 31.1 g/dLLow32 - 36 g/dLBellevue HospitalMCV (RBC) [Entitic vol]73 fLLow80 - 100 [facility] CenterMonocytes (Bld) [#/Vol]0.5 10*3/uLBellevue HospitalMonocytes/100 WBC (Bld)8 %B[facility]vue HospitalNeutrophils (Bld) [#/Vol]5.4 10*3/uLBellevue HospitalOvalocytes LM Ql (Bld)2+Abnormal NONE^[facility] HospitalPlatelet mean volume (Bld) [Entitic vol]8.7 fL7 - 12 [facility] SystemPlatelets (Bld) [#/Vol]243 10*3/uLBellevue HospitalRBC (Bld) [#/Vol]4.37 10*6/uLBlue Ridge Regional Hospitalegmented neutrophils/100 WBC (Bld)80 %Bellevue HospitalWBC corrected for nucl RBC Auto (Bld) [#/Vol]6.7[facility] SystemLIVER PANELon 73-72-8012Kccvwfd [Mass/Vol]3.5 g/dLNormal3.2-5.3PSelect Medical [facility] Comment on above:Performed By: #### 36090-2, 2131-9, PINR, 09265-6, AHP, CMP, THYR, FEPR, CBCA, 78504-5, 80644-6, 1967-11, 2283-12, 6-4 #### [facility] ([id number]) [address], [address] [place], [place] [address]INJ [Catalytic activity/Vol]64 U/BWrrmlh21-548YffFbjcjn Toledo HospitalComment on above:Performed By: #### 34205-0, 9, PINR, 93670-2, AHP, CMP, THYR, FEPR, CBCA, 06734-3, 74100-0, 1967-11, 2283-12, 2275-4 #### [facility] ([id number]) [address], [address] [place], [place] [address]ATW [Catalytic activity/Vol]19 U/LNormal0-40[facility] Medical CenterComment on above:Performed By: #### 41682-3, 9, PINR, 24361-1, AHP, CMP, THYR, FEPR, CBCA, 30712-5, 35083-0, 1967-11, 2283-12, 6-4 #### [facility] ([id number]) [address], [address] [place], [place] [address]NBP [Catalytic activity/Vol]25 U/LNormal0-41ProCommunity Memorial HospitalComment on above:Performed By: #### 69090-9, 9, PINR, 47056-0, AHP, CMP, THYR, FEPR, CBCA, 78522-3, 63104-2, 1967-11, 2283-12, 2275-08 #### [facility] ([id number]) [address] [facility] [facility] [address], [address] [place], [place] [address]Emdwffuai [Mass/Vol]0.8 mg/dLNormal0.3-1.2PSelect Medical TriHealth Rehabilitation HospitalComment on above:Performed By: #### 42554-2, 2131-9, PINR, 95877-7, AHP, CMP, THYR, FEPR, CBCA, 06463-6, 27045-8, 1967-11, 2283-12, 2275- #### [facility] ([id number]) [facility], [address] [place], [place] [address]Dxkfuswnl.direct [Mass/Vol]0.4 mg/dLNormal0.0-0.4ProCommunity Memorial HospitalComment on above:Performed By: #### 17270-2, 9, PINR, 84562- 9, AHP, CMP, THYR, FEPR, CBCA, 28012-3, 48596-2, 1967-11, 2283-12, 2275- #### [facility] ([id number]) [address] [place] [address], [address] [place], [place] [address]Xfaegng [Mass/Vol]5.8 g/dLLow6.0-8.0[facility] Comment on above:Performed By: #### 90668-1, 9, PINR, 69908-3, AHP, CMP, THYR, FEPR, CBCA, 30515-6, 37286-0, 1967-11, 2283-12, 2275- #### [facility] ([id number]) [address] [place] [address], [address] [place], [place] [address]Tdmue panelon 05-82-0531Sgeljqb [Mass/Vol]3.5 g/dL3.2 - 5.3 g/dL [facility] SystemALP [Catalytic activity/Vol]64 U/L39 - 130 U/LProMedica Sycamore Medical Center SystemALT No additional P-5'-P [Catalytic activity/Vol]19 U/L0 - 40 U/L [facility] SystemAST [Catalytic activity/Vol]25 U/L0 - 41 U/LPrMemorial Hospital SystemBilirubin [Mass/Vol]0.8 mg/dL0.3 - 1.2 mg/dLBellevue Hospital Bilirubin.direct [Mass/Vol]0.4 mg/dL0.0 - 0.4 mg/dLBellevue Hospital Interpretation and review of laboratory resultsAbnormalProRegency Hospital [facility] East Protein [Mass/Vol]5.8 g/dLLow6.0 - 8.0 g/dLSt. Mary Medical CenterMR BRAIN W WO CONTon [id number] BRAIN W WO CONTMR BRAIN W WO [...] Correlate with symptoms. Sequelae of prior right [employer] territory ischemia Finalized by Zac Lucia on 06/10/2024 7:38 AMNormalRegional Medical CenterMR Brain WO and W contrast Dionisio [id number]:MR BRAIN W WO CONT INDICATION: Mental status [...] Correlate with symptoms. Sequelae of prior right [employer] territory ischemia Finalized by Zac Lucia on [...] Correlate with symptoms. Sequelae of prior right [employer] territory ischemia Finalized by Zac Lucia on 06/10/2024 7:38 AM XocketsMR Brain WO and W contrast IVOrdered By: Zac Lucia on [id number] Work Phone: MR MRA HEAD WO CONTon [id number] MRA HEAD WO CONTMR MRA HEAD WO [...] segment possibly due to flow dynamics and nefh-vd-jctjkp technique as there appears to be normal contrast enhancement within the V4 segment on the MRA of the neck Basilar artery: Normal. psychiatric nursing assistant: The left [employer] is normal. Diminished flow related enhancement within the distal right [employer] distribution likely sequelae of prior right [employer] infarct. IMPRESSION: 1. Diminished flow related signal within the right [employer] is likely chronic and related to known rightchronic occipital infarct/encephalomalacia. 2. Diminished flow related enhancement within the proximal right vertebral artery is likely due to flow dynamics and xcpi-kz-xxtlbl technique is there is normal-appearing enhancement on the postcontrast MRA of the neck. 3. Otherwise, no high-grade stenosis, occlusion, or evidence of sizable aneurysm. Finalized by Zac Lucia on 06/10/2024 9:32 [facility]MR [facility] CONTon 96-35-2410QX MRA NECK W WO CONTMR MRA NECK [...] Finalized by Zac Lucia on 06/10/2024 10:36 [facility] MRA Head vessels WO contraston 75-18-6270YINB: MR MRA HEAD WO CONT INDICATION: Stroke [...] segment possibly due to flow dynamics and oevu-mj-jircno technique as there appears to be normal contrast enhancement within the V4 segment on the MRA of the neck Basilar artery: Normal. psychiatric nursing assistant: The left [employer] is normal. Diminished flow related enhancement within the distal right [employer] distribution likely sequelae of prior right [employer] infarct. IMPRESSION: 1. Diminished flow related signal within the right [employer] is likely chronic and related to known rightchronic occipital infarct/encephalomalacia. 2. Diminished flow related enhancement within the proximal right vertebral artery is likely due to flow dynamics and prmj-yo-ahibvd technique is there is normal-appearing enhancement on [...] segment possibly due to flow dynamics and elif-wl-tfvkfq technique as there appears to be normal contrast enhancement within the V4 segment on the MRA of the neck Basilar artery: Normal. psychiatric nursing assistant: The left [employer] is normal. Diminished flow related enhancement within the distal right [employer] distribution likely sequelae of prior right [employer] infarct. IMPRESSION: 1. Diminished flow related signal within the right [employer] is likely chronic and related to known rightchronic occipital infarct/encephalomalacia. 2. Diminished flow related enhancement within the proximal right vertebral artery is likely due to flow dynamics and ijgk-hp-ppmthi technique is there is normal-appearing enhancement on the postcontrast MRA of the neck. 3. Otherwise, no high-grade stenosis, occlusion, or evidence of sizable aneurysm. Finalized by Zac Lucia on 06/10/2024 9:32 AM [facility] SystemRadiology Study observation (narrative)[facility] HospitalMR Neck vessels WO and W contrast Dionisio 66-79-6972QKWR: MR MRA NECK W WO CONT INDICATION: [...] by Zac Lucia on 06/10/2024 10:[address] [facility] CenterNo Panel Informationon 06-10-2024 Radiology Study observation (narrative)[facility] HospitalBASI METABOLIC PANLon 21-06-9091Qruan gap [Moles/Vol]12 mmol/LNormal5-15ProCommunity Memorial HospitalComment on above:Performed By: #### 55189-4, 2131-9, PINR, 06216-1, AHP, CMP, THYR, FEPR, CBCA, 62086-1, 62655-6, 1967-11, 2283-12, 2275- #### [facility] ([id number]) [address], [address] [place], [place] [address]Sokywuu [Mass/Vol]8.7 mg/dLNormal8.5-10.5PSelect Medical TriHealth Rehabilitation HospitalComment on above:Performed By: #### 22769-7, 9, PINR, 40191-3, AHP, CMP, THYR, FEPR, CBCA, 06061-9, 83794-4, 1967-11, 2283-12, 2275- #### [facility] ([id number]) [address], [address] [place], [place] [address]Kqbtyqzt [Moles/Vol]102 mmol/XFkhcju41-044NmjBqgvgc [facility] HospitalComment on above:Performed By: #### 92856-7, 2131-9, PINR, 35112-8, AHP, CMP, THYR, FEPR, CBCA, 07053-9, 38011-4, 1967-11, 2283-12, 2275-4 #### [facility] ([id number]) [address], [address] [place], [place] [address]MY8 [Moles/Vol]30 mmol/PAzvhtf36-94OrkXujzuy [facility] Comment on above:Performed By: #### 95694-3, 2131-9, PINR, 35226-5, AHP, CMP, THYR, FEPR, CBCA, 09573-0, 37450-9, 1967-11, 2283-12, 2275- #### [facility] ([id number]) [address], [address] [place], [place] [address]Rsxuwlxlca [Mass/Vol]1.32 mg/dLHigh0.60-1.30ProCommunity Memorial HospitalComment on above:Result Comment: METHOD TRACEABLE TO IDMS STANDARD Performed By: #### 02233-3, 9, PINR, 15830-8, AHP, CMP, THYR, FEPR, CBCA, 99544-0, 27158-8, 1967-11, 2283-12, 2275-08 #### [facility] ([id number]) [address], [address] [place], [place] [address]KVW/1.73 sq M.predicted among non-blacks MDRD (S/P/Bld) [Vol rate/Area]58 mL/min/{1.73_m2}Low>59ProCommunity Memorial HospitalComment on above: Result Comment: Reported eGFR is based on the CKD-EPI 2020 equation that does not use a race coefficient.Performed By: #### 30978-5, 2131-9, PINR, 83483-7, AHP, CMP, THYR, FEPR, CBCA, 72756-6, 88268-9, 1967-11, 2283-12, 2275-08 #### [facility] ([id number]) [address], [address] [place], [place] [address]Erlmfhl [Mass/Vol]99 mg/lCIqppou31-59GcwFietolRegional Medical Center Comment on above:Performed By: #### 08788-0, 2131-9, PINR, 37714-2, AHP, CMP, THYR, FEPR, CBCA, 20319-0, 21582-4, 1967-11, 2283-12, 2275-08 #### [facility] ([id number]) [address] [facility], [address] [place], [place] [address]Dukngdvlq [Moles/Vol]3.5 mmol/LNormal3.5-5.0ProCommunity Memorial HospitalComment on above:Performed By: #### 55883-2, 2132-01, PINR, 72234-3, AHP, CMP, THYR, FEPR, CBCA, 76842-1, 89966-0, 1967-11, 2283-12, 2275-08 #### [facility] ([id number]) [address] [facility], [address] [place], [place] [address]Wcciew [Moles/Vol]144 mmol/GAhhrld479-410BqjSszczb [facility]edo HospitalComment on above:Performed By: #### 05157-6, 2132-01, PINR, 72578-0, AHP, CMP, THYR, FEPR, CBCA, 64022-5, 75478-6, 1967-11, 2283-12, 2275-08 #### [facility] ([id number]) [address] [facility], [address] [place], [place] [address]Rwgh nitrogen [Mass/Vol]18 mg/dLNormal5-27ProCommunity Memorial HospitalComment on above:Performed By: #### 46584-5, 9, PINR, 82701-4, AHP, CMP, THYR, FEPR, CBCA, 53463-4, 94577-6, 1967-11, 2283-12, 2275-08 #### [facility] ([id number]) [address] [facility], [address] [place], [place] [address]Fsjon Metabolic Panelon 02-87-2956Fsdpv gap [Moles/Vol]12 mmol/L 5 - 15 mmol/LProMedica Health SystemCalcium [Mass/Vol]8.7 mg/dL8.5 - 10.5 mg/dL ProMedica Health SystemChloride [Moles/Vol]102 mmol/L98 - 109 mmol/[facility] SystemCO2 [Moles/Vol]30 mmol/L22 - 32 mmol/[facility] Creatinine [Mass/Vol]1.32 mg/dLHigh0.60 - 1.30 mg/dLBellevue Hospital Comment on above:METHOD TRACEABLE TO IDMS STANDARDeGFR (CKD-EPI)non-race vhbxslqsy10Vuf- PINMercy Hospital South, formerly St. Anthony's Medical CenterComment on above: Reported eGFR is based on the CKD-EPI 2020 equation that does not use a race coefficient. Glucose [Mass/Vol]99 mg/dL65 - 99 mg/dLBellevue HospitalInterpretation and review of laboratory resultsAbnormalBellevue HospitalPotassium [Moles/Vol]3.5 mmol/L3.5 - 5.0 mmol/[facility] SystemSodium [Moles/Vol] 144 mmol/L134 - 146 mmol/[facility] SystemUrea nitrogen [Mass/Vol]18 mg/dL5 - 27 mg/dLSt. Mary Medical CenterCBC AND AUTO DIFF on 31-00-9465BFORRIQG BASOPHIL0.1 X10E9/LNormal0.0-0.2PSelect Medical TriHealth Rehabilitation Hospital Comment on above:Performed By: #### 62680-3, 2132-01, PINR, 11774-9, AHP, CMP, THYR, FEPR, CBCA, 13139-8, 86715-6, 1967-, 2283-, 2275- #### [facility] ([id number]) [address] [facility], [address] [place], [place] [address]XSSIQBRQ NEUTROPHIL5.0 X10E9/LNormal1.5-6.6Regional Medical CenterComment on above:Performed By: #### 87223-8, 2132-01, PINR, 71195-0, AHP, CMP, THYR, FEPR, CBCA, 07404-7, 65448-9, 1967-, 2283-, 2275- #### [facility] ([id number]) [address] [facility], [address] [place], [place] [address]Sefyvgfozfuv Ql (Bld)2+AbnormalNONEProMedica [facility] Comment on above:Performed By: #### 96206-8, 2131-9, PINR, 77899-3, AHP, CMP, THYR, FEPR, CBCA, 83164-2, 76931-5, 1967-7, 2283-8, 6-4 #### [facility] ([id number]) [address] [facility], [address] [place], [place] [address]Ndqqebjfe/100 WBC (Bld)0.9 %NormalRegional Medical Center Comment on above:Performed By: #### 16089-5, 9, PINR, 66152-4, AHP, CMP, THYR, FEPR, CBCA, 53241-6, 98133-9, 1967-, 2283-, 6-4 #### [facility] ([id number]) [address] [facility], [address] [place], [place] [address]Xdvgyiweejj (Bld) [#/Vol]0.1 10*3/uLNormal0.0-0.4ProCommunity Memorial HospitalComment on above:Performed By: #### 66362-5, 9, PINR, 39968- 9, AHP, CMP, THYR, FEPR, CBCA, 07045-8, 21996-8, 1967-11, 2283-12, 6-4 #### [facility] ([id number]) [address] [facility], [address] [place], [place] [address]Yptuyzsujng/100 WBC (Bld)1.3 %NormalRegional Medical Center Comment on above:Performed By: #### 16541-5, 9, PINR, 54196-8, AHP, CMP, THYR, FEPR, CBCA, 75358-1, 59721-8, 1967-11, 2283-12, 6-4 #### [facility] ([id number]) [address] [facility], [address] [place], [place] [address]Qlqjhpxorsz distribution width (RBC) [Ratio]24.1 %High11.5-15.0 Pro[facility] Hospital - ColumbusComment on above:Performed By: #### 21267-2, 2132-01, PINR, 86501-7, AHP, CMP, THYR, FEPR, CBCA, 36933-0, 62090-8, 1967-11, 2283-12, 2275- #### [facility] ([id number]) [address] [facility], [address] [place], [place] [address]NKVNZDAX0+AbnormalNONEProMedica [facility] Hospital - ColumbusComment on above: Performed By: #### 13053-3, 2132-01, PINR, 59906-9, AHP, CMP, THYR, FEPR, CBCA, 88877-4, 58902-0, 1967-11, 2283-12, 2275- #### [facility] ([id number]) [address] [facility], [address] [place], [place] [address]Xndqktgsbn (Bld) [Volume fraction]40.9 %Cxrmjh34-30SkoAmhuafCommunity Memorial HospitalComment on above:Performed By: #### 11932-3, 2132-01, PINR, 9, AHP, CMP, THYR, FEPR, CBCA, 32246-5, 65413-6, 1967-11, 2283-12, 2275- #### [facility] ([id number]) [address] [facility], [address] [place], [place] [address]Nnaruczvlw (Bld) [Mass/Vol]12.6 g/dLLow13.0-17.0ProCommunity Memorial HospitalComment on above:Performed By: #### 27609-5, 2132-01, PINR, 49002-3, AHP, CMP, THYR, FEPR, CBCA, 55503-5, 90790-2, 1967-11, 2283-12, 2275- #### [facility] ([id number]) [address], [address] [place], [place] [address]KPLFMLCDXCN2+AbnormalNONEPSelect Medical TriHealth Rehabilitation HospitalComment on above:Performed By: #### 84065-9, 9, PINR, 66674-0, AHP, CMP, THYR, FEPR, CBCA, 61475-4, 58351-8, 1967-11, 2283-12, 2275- #### [facility] ([id number]) [address], [address] [place], [place] [address]Dtvbtidzyfq (Bld) [#/Vol]0.5 10*3/uLLow1.0-3.5ProMedWayne HospitalComment on above:Performed By: #### 11203-0, 2132-01, PINR, 37397-0, AHP, CMP, THYR, FEPR, CBCA, 37502-3, 64609-4, 1967-11, 2283-12, 2275- #### [facility] ([id number]) [address], [address] [place], [place] [address]Empwmminknt/100 WBC (Bld)8.4 %NormalRegional Medical Center Comment on above:Performed By: #### 70743-2, 2132-01, PINR, 37424-1, AHP, CMP, THYR, FEPR, CBCA, 51787-8, 30620-5, 1967-11, 2283-12, 2275- #### [facility] ([id number]) [address], [address] [place], [place] [address]HKI (RBC) [Entitic mass]22.5 ruUcg45-82UioHvdraaRegional Medical Center Comment on above:Performed By: #### 58863-2, 9, PINR, 11947-2, AHP, CMP, THYR, FEPR, CBCA, 94403-5, 36488-5, 1967-11, 2283-12, 2275- #### [facility] ([id number]) [address], [address] [place], [place] [address]FYHY (RBC) [Mass/Vol]30.7 g/xDRsc33-40KlaKzkgflRegional Medical Center Comment on above:Performed By: #### 26694-1, 2131-9, PINR, 94117-3, AHP, CMP, THYR, FEPR, CBCA, 76828-6, 31467-7, 1967-11, 2283-12, 2275- #### [facility] ([id number]) [address], [address] [place], [place] [address]FXB (RBC) [Entitic vol]73 kXDre26-397EssPvenxxRegional Medical Center Comment on above:Performed By: #### 70301-8, 2131-9, PINR, 30821-0, AHP, CMP, THYR, FEPR, CBCA, 46936-0, 03724-0, 1967-11, 2283-12, 2275- #### [facility] ([id number]) [address], [address] [place], [place] [address]Xivzeijca (Bld) [#/Vol]0.4 10*3/uLNormal0-0.9Regional Medical CenterComment on above:Performed By: #### 10293-9, 2131-9, PINR, 26254-8, AHP, CMP, THYR, FEPR, CBCA, 73489-3, 74622-8, 1967-11, 2283-12, 2275- #### [facility] ([id number]) [address], [address] [place], [place] [address]Dpagiaute/100 WBC (Bld)6.3 %NormalRegional Medical Center Comment on above:Performed By: #### 74547-9, 2131-9, PINR, 20789-6, AHP, CMP, THYR, FEPR, CBCA, 39957-8, 50163-9, 1967-11, 2283-12, 2275-08 #### [facility] ([id number]) [address], [address] [place], [place] [address]Zbthxmxtgfm/100 WBC (Bld)83.1 %NormalProCommunity Memorial Hospital Comment on above:Performed By: #### 91068-7, 2131-9, PINR, 17435-4, AHP, CMP, THYR, FEPR, CBCA, 31130-4, 40978-6, 1967-11, 2283-12, 2275-08 #### [facility] ([id number]) [address], [address] [place], [place] [address]TSWVJGOOO1+AbnormalNONEProMedica [facility] Hospital - ColumbusComment on above:Performed By: #### 16244-1, 2131-9, PINR, 13297-6, AHP, CMP, THYR, FEPR, CBCA, 42636-1, 84514-0, 1967-11, 2283-12, 2275- #### [facility] ([id number]) [address], [address] [place], [place] [address]Wgmzjrra mean volume (Bld) [Entitic vol]8.8 fLNormal7-12 [facility] Hospital - ColumbusComment on above:Performed By: #### 16717-2, 2131-9, PINR, 12652-0, AHP, CMP, THYR, FEPR, CBCA, 46724-7, 25439-1, 1967-11, 2283-12, 2275- #### [facility] ([id number]) [address], [address] [place], [place] [address]Vmbavfxvj (Bld) [#/Vol]271 10*3/dGZrwqvo890-936EpsKiavhv [facility] - ColumbusComment on above:Performed By: #### 45680-0, 2131-9, PINR, 24304-1, AHP, CMP, THYR, FEPR, CBCA, 08208-2, 62443-7, 1967-11, 2283-12, 2275-08 #### [facility] ([id number]) [address] [facility], [address] [place], [place] [address]YIJ COUNT5.59 X10E12/LNormal4.10-5.70[facility] Comment on above:Performed By: #### 82931-7, 2131-9, PINR, 74354-5, AHP, CMP, THYR, FEPR, CBCA, 39884-8, 58255-5, 1967-, 2283-12, 2275- #### [facility] ([id number]) [address] [facility], [address] [place], [place] [address]SLV (Bld) [#/Vol]6.0 10*3/uLNormal4.0-11.0Regional Medical CenterComment on above:Performed By: #### 97826-5, 9, PINR, 14492-8, AHP, CMP, THYR, FEPR, CBCA, 56244-2, 73040-7, 1967-11, 2283-12, 2275-08 #### [facility] ([id number]) [address] [facility], [address] [place], [place] [address]OOS auto differentialon 94-32-0524Kokcdrogyopl Ql (Bld)2+ AbnormalNONE^NONEProMedica Health SystemBasophils (Bld) [#/Vol]0.1 10*3/uL [facility] SystemBasophils/100 WBC (Bld)0.9 %[facility] Eosinophils (Bld) [#/Vol]0.1 10*3/uLProMedica Health SystemEosinophils/100 WBC (Bld)1.3 %[facility]ica Health SystemErythrocyte distribution width (RBC) [Ratio] 24.1 %High11.5 - 15.0 %ProMedica Health SystemFragments LM Ql (Bld)1+Abnormal NONE^NONEProMedica Health SystemHematocrit (Bld) [Volume fraction]40.9 %39 - 49 %[facility]ica Health SystemHemoglobin (Bld) [Mass/Vol]12.6 g/dLLow13.0 - 17.0 g/dL [facility] HospitalHypochromia Ql (Bld)2+AbnormalNONE^[facility] HospitalInterpretation and review of laboratory resultsAbnormBarberton Citizens HospitalLymphocytes (Bld) [#/Vol]0.5 10*3/uLOhioHealth Van Wert Hospital Lymphocytes/100 WBC (Bld)8.4 %[facility] HospitalH (RBC) [Entitic mass] 22.5 pgLow27 - 34 [facility] ShawMCHC (RBC) [Mass/Vol]30.7 g/dLLow32 - 36 g/dLBellevue HospitalMCV (RBC) [Entitic vol]73 fLLow80 - 100 fL [facility] HospitalMonocytes (Bld) [#/Vol]0.4 10*3/uLBellevue Hospital Monocytes/100 WBC (Bld)6.3 %[facility] HospitalNeutrophils (Bld) [#/Vol]5 10*3/uLBellevue HospitalNeutrophils/100 WBC (Bld)83.1 %[facility] HospitalOvalocytes LM Ql (Bld)2+AbnormalNONE^[facility] HospitalPlatelet mean volume (Bld) [Entitic vol]8.8 fL7 - 12 [facility] CenterPlatelets (Bld) [#/Vol]271 10*3/uLBellevue HospitalRBC (Bld) [#/Vol]5.59 10*6/uL [facility] HospitalWBC corrected for nucl RBC Auto (Bld) [#/Vol]6St. [facility] Medical CenterECG 12 leadon 67-06-1450IEVTYZEMOREKTI [facility] HospitalPOTASSIUMon 46-91-1666Rkyinwgpj [Moles/Vol]3.8 mmol/L Normal3.5-5.0Regional Medical CenterComment on above:Performed By: #### 99872- 0, 2132-9, PINR, 79468-2, AHP, CMP, THYR, FEPR, CBCA, 52548-8, 70991-1, 1967-11, 2283-12, 2275-4 #### [facility] ([id number]) [address] [facility], [address] [place], [place] [address]Rkechftaytl 82-61-2629Ukfdwduny [Moles/Vol]3.8 mmol/L3.5 - 5.0 mmol/[facility] SystemPotassium [Moles/Vol]on 98-29-4065PeeMkhmzgBellevue HospitalAPTDiamond Children'S Medical Center 76-50-3987wCYU Coag (PPP) [Time]38 [facility] Rehabilitation HospitalaPTT Coag (PPP) [Time]80 [facility] HospitalBASIC METABOLIC PANLon 61-76-7832Cylno gap [Moles/Vol]13 mmol/LNormal5-15[facility] Comment on above:Performed By: #### 99340-5, 2132-01, PINR, 58133-5, AHP, CMP, THYR, FEPR, CBCA, 28295-7, 23704-6, 1967-11, 2283-12, 2275-4 #### [facility] ([id number]) [address] [facility], [address] [place], [place] [address]Xgtdzcs [Mass/Vol]8.3 mg/dLLow8.5-10.[address] [place] [address] Comment on above:Performed By: #### 02140-1, 2132-01, PINR, 86837-7, AHP, CMP, THYR, FEPR, CBCA, 26167-1, 53662-0, 1967-11, 2283-12, 2275-4 #### [facility] ([id number]) [address] [facility], [address] [place], [place] [address]Ekoxesor [Moles/Vol]107 mmol/NIfqpzo48-302ZxpIurayd [facility] HospitalComment on above:Performed By: #### 48643-9, 2132-01, PINR, 99089-1, AHP, CMP, THYR, FEPR, CBCA, 63283-1, 18043-7, 1967-11, 2283-12, 2275-08 #### [facility] ([id number]) [address], [address] [place], [place] [address]GK0 [Moles/Vol]26 mmol/ZMlfvfm03-34RxbDbfwauSelect Medical TriHealth Rehabilitation Hospital Comment on above:Performed By: #### 80010-9, 2131-9, PINR, 97375-7, AHP, CMP, THYR, FEPR, CBCA, 19196-5, 56124-2, 1967-11, 2283-12, 2275-08 #### [facility] ([id number]) [address], [address] [place], [place] [address]Dmmmfqvtxg [Mass/Vol]1.58 mg/dLHigh0.60-1.30Reg[facility] Medical CenterComment on above:Result Comment: METHOD TRACEABLE TO IDMS STANDARD Performed By: #### 49783-6, 9, PINR, 59158-1, AHP, CMP, THYR, FEPR, CBCA, 31425-8, 01991-0, 1967-11, 2283-12, 2275-08 #### [facility] ([id number]) [address] [place], [place] [address]KUN/1.73 sq M.predicted among non-blacks MDRD (S/P/Bld) [Vol rate/Area]47 mL/min/{1.73_m2}Low>59ProCommunity Memorial HospitalComment on above: Result Comment: Reported eGFR is based on the CKD-EPI 2020 equation that does not use a race coefficient.Performed By: #### 26908-8, 2131-9, PINR, 02474-1, AHP, CMP, THYR, FEPR, CBCA, 63926-7, 59641-7, 1967-11, 2283-12, 2275-08 #### [facility] ([id number]) [address], [address] [place], [place] [address]Dukuimn [Mass/Vol]117 mg/lLJqts61-80MiiJnupzeCommunity Memorial Hospital Comment on above:Performed By: #### 99596-2, 2131-9, PINR, 51105-9, AHP, CMP, THYR, FEPR, CBCA, 12362-8, 16651-8, 1967-11, 2283-12, 2275- #### [facility] ([id number]) [address], [address] [place], [place] [address]Iiqqzewhu [Moles/Vol]3.4 mmol/LLow3.5-5.0ProCommunity Memorial HospitalComment on above:Performed By: #### 86764-1, 9, PINR, 45151-2, AHP, CMP, THYR, FEPR, CBCA, , 81093-4, 1967-11, 2283-12, 2275-08 #### [facility] ([id number]) [address], [address] [place], [place] [address]Cqxpcj [Moles/Vol]146 mmol/VNsjvpu870-112QpsHvhozn [facility] HospitalComment on above:Performed By: #### 84780-7, 9, PINR, 38729-1, AHP, CMP, THYR, FEPR, CBCA, 75925-2, , 1967-11, 2283-12, 2275- #### [facility] ([id number]) [address], [address] [place], [place] [address]Vvnu nitrogen [Mass/Vol]24 mg/dLNormal5-27ProCommunity Memorial HospitalComment on above:Performed By: #### 61310-2, 9, PINR, 97879-4, AHP, CMP, THYR, FEPR, CBCA, 40084-1, 98784-3, 1967-11, 2283-12, 2275- #### [facility] ([id number]) [address], [address] [place], [place] [address]Cyxgpeli identified Cx Nom (U)on 07-15-6787Bcawdzj comment (Unsp spec) [Interp]NO GROWTH AT <1000 CFU/mLSt. Mary Medical CenterBasic Metabolic Panelon 11-75-3500Pyqlz gap [Moles/Vol]13 mmol/L5 - 15 mmol/[facility] SystemCalcium [Mass/Vol]8.3 mg/dLLow8.5 - 10.5 mg/dL Pro[facility]icGil[facility]ty Healthcare SystemChloride [Moles/Vol]107 mmol/L98 - 109 mmol/[facility] SystemCO2 [Moles/Vol]26 mmol/L22 - 32 mmol/[facility] Creatinine [Mass/Vol]1.58 mg/dLHigh0.60 - 1.30 mg/dLBellevue Hospital Comment on above:METHOD TRACEABLE TO IDIN STANDARDeGFR (CKD-EPI)non-race [id number] [place], [place] [address]Comment on above: Reported eGFR is based on the CKD-EPI 2020 equation that does not use a race coefficient. Glucose [Mass/Vol]117 mg/dBHwwv15 - 99 mg/dLBellevue Hospital Interpretation and review of laboratory resultsAbnormalBellevue Hospital Potassium [Moles/Vol]3.4 mmol/LLow3.5 - 5.0 mmol/[facility] SystemSodium [Moles/Vol]146 mmol/L134 - 146 mmol/[facility] SystemUrea nitrogen [Mass/Vol]24 mg/dL5 - 27 mg/dLBellevue HospitalCT BRAIN WO CONTon 23-14-1314QR BRAIN WO CONTCT BRAIN WO CONT Nonenhanced [...] by Uriel Smith MD on 06/08/2024 8:36 [facility] CT BRAIN WO CONTCT BRAIN WO [...] by Zac Lewis MD on 06/08/2024 11:06 [facility] WO contraston [id number] CT of the brain dated dated 06/08/2024 [...] Uriel Smith MD on 06/08/2024 8:36 PM [facility] SystemRadiology Study observation (narrative)[facility] SystemCT OF THE HEAD WITHOUT CONTRAST INDICATION: [...] Zac Lewis MD on 06/08/2024 11:06 AM [facility] HospitalRadiology Study observation (narrative)[facility] HospitalCT Head WO contrastOrdered By: Uriel Smith on 08-34-0960ZyvQivtwqBellevue Hospital Work Phone: CT Head WO contrastOrdered By: Zac Lewis on 04-96-1068CqkXeztgdBellevue Hospital Work Phone: HEMOGLOBINon [phone] (Bld) [Mass/Vol]11.3 g/dLLow13.0-17.0[facility] Medical CenterComment on above:Performed By: #### 60901-9, 2132-9, PINR, 31256-6, AHP, CMP, THYR, FEPR, CBCA, 04301-5, 94699-1, 1968-7, 2284-8, 2275-08 #### [facility] ([id number]) [address], [address] [place], [place] [address]MZL A1C (GLYCO-HGB)on 89-92-2745Ezylykd [Mass/Vol]123 mg/dL NormalProCommunity Memorial HospitalComment on above:Performed By: #### 70308-5, 2132-01, PINR, 85374-4, AHP, CMP, THYR, FEPR, CBCA, , 40428-5, 1967-11, 2283-12, 2275-08 #### [facility] ([id number]) [address], [address] [place], [place] [address]OsN9u (Bld) [Mass fraction]5.9 %High4.4-5.6ProCommunity Memorial HospitalComment on above:Result Comment: NOTE ADA Guidelines Result HgbA1c Normal : less than 5.7 % Prediabetes : 5.7 % to 6.4 % Diabetes : > 6.4 % Use with caution in patients with abnormal hemoglobin variants as the half-life of red blood cells and in vivo glycation rates are affected.Performed By: #### 57390-9, 2132-01, PINR, 80021-4, AHP, CMP, THYR, FEPR, CBCA, 19992-9, 69391-8, 1967-11, 2283-12, 2275-08 #### [facility] ([id number]) [address], [address] [place], [place] [address]Ahttpnzjbsxm [phone] (Bld) [Mass/Vol]11.3 g/dLLow 13.0 - 17.0 g/dLBellevue HospitalHemoglobin (Bld) [Mass/Vol]on 06-08-2024 Interpretation and review of laboratory resultsAbnormalBellevue Hospital Hemoglobin A1con 67-04-1673Yragkvz glucose Estimated from glycated hemoglobin (Bld) [Mass/Vol]123 mg/dLBellevue HospitalHbA1c (Bld) [Mass fraction]5.9 % High4.4 - 5.6 %Bellevue HospitalComment on above:NOTE ADA Guidelines Result HgbA1c Normal : less than 5.7 % Prediabetes : 5.7 % to 6.4 % Diabetes : > 6.4 % Use with caution in patients with abnormal hemoglobin variants as the half-life of red blood cells and in vivo glycation rates are affected. Interpretation and review of laboratory resultsAbnormalClarion HospitalLIVER PANELon 26-81-2592Hhohnxl [Mass/Vol]2.9 g/dLLow 3.2-5.3[facility] Hospital - ColumbusComment on above:Performed By: #### 28042-4, 9, PINR, 21711-6, AHP, CMP, THYR, FEPR, CBCA, 54677-8, 10217-9, 1967-11, 2283-12, 2275- #### [facility] [facility] ([id number]) [address] [place] [address], [address] [place], [place] [address]MBU [Catalytic activity/Vol]65 U/XOicdky87-457DeuIdkhiaRegional Medical CenterComment on above:Performed By: #### 09061-9, 2132-01, PINR, 74052-2, AHP, CMP, THYR, FEPR, CBCA, 48703-3, 47485-3, 1967-11, 2283-12, 2275-4 #### [facility] ([id number]) [address] [place] [address], [address] [place], [place] [address]CMQ [Catalytic activity/Vol]20 U/LNormal0-40ProCommunity Memorial HospitalComment on above:Performed By: #### 85131-5, 9, PINR, 67442-2, AHP, CMP, THYR, FEPR, CBCA, 20598-3, 39223-1, 1967-11, 2283-12, 2275-08 #### [facility] ([id number]) [address] [facility], [address] [place], [place] [address]FWG [Catalytic activity/Vol]31 U/LNormal0-41ProCommunity Memorial HospitalComment on above:Performed By: #### 84871-9, 9, PINR, 71452-3, AHP, CMP, THYR, FEPR, CBCA, 85059-7, 60035-6, 1967-11, 2283-12, 2275-08 #### [facility] ([id number]) [address] [facility], [address] [place], [place] [address]Bngbtgqgh [Mass/Vol]1.3 mg/dLHigh0.3-1.2ProMedWayne HospitalComment on above:Performed By: #### 34708-9, 9, PINR, 89531-8, AHP, CMP, THYR, FEPR, CBCA, 32518-8, 67084-3, 1967-11, 2283-12, 2275-08 #### [facility] ([id number]) [address] [facility], [address] [place], [place] [address]Bgidirfqp.direct [Mass/Vol]0.5 mg/dLHigh0.0-0.4ProCommunity Memorial HospitalComment on above:Performed By: #### 46825-1, 9, PINR, 27386-4, AHP, CMP, THYR, FEPR, CBCA, 73108-5, 34844-8, 1967-11, 2283-12, 2275-08 #### [facility] ([id number]) [address] [facility], [address] [place], [place] [address]Ehuefzn [Mass/Vol]5.7 g/dLLow6.0-8.0Pro[facility] Comment on above:Performed By: #### 45754-9, 9, PINR, 25806-6, AHP, CMP, THYR, FEPR, CBCA, , 11466-4, 1967-11, 2283-12, 2275- #### [facility] ([id number]) [address] [facility], [address] [place], [place] [address]Rqeym 1996 panelon 93-64-8898Qbvpziemzhl [Mass/Vol]135 mg/dLLow 150 - 200 mg/dLKettering Health Hamilton SystemCholesterol in HDL [Mass/Vol]25 mg/dLLow39 - PINF mg/dLBellevue HospitalComment on above: HDL <40 mg/dL - High Risk HDL > or = 40mg/dL- Desirable HDL >60 mg/dL - Negative Risk Cholesterol in LDL [Mass/Vol]96 mg/dLNINF - 130 mg/dLKettering Health Hamilton System Comment on above: LDL <100 mg/dL - Desirable LDL >160 mg/dL - High Risk Cholesterol in VLDL [Mass/Vol]14 mg/dL0 - 30 mg/dLKettering Health Hamilton System Cholesterol.total/Cholesterol in HDL [Mass ratio]5.4 {ratio}High1.0 - 5.0 [facility] HospitalInterpretation and review of laboratory resultsAbnormal [facility]vue HospitalTriglyceride [Mass/Vol]70 mg/dL27 - 150 mg/dLKettering Health Hamilton SystemKettering Health Hamilton SystemCholesterol [Mass/Vol]135 mg/bBZtq550-432 Regional Medical CenterComment on above:Performed By: #### 11827-5, 9, PINR, 20526-9, AHP, CMP, THYR, FEPR, CBCA, 59327-2, 98336-2, 1967-11, 8, 2275- #### [facility] ([id number]) [address] [facility], [address] [place], [place] [address]Hxlrqaagbfv in HDL [Mass/Vol]25 mg/dLLow>39ProCommunity Memorial HospitalComment on above:Result Comment: HDL <40 mg/dL - High Risk HDL > or = 40mg/dL- Desirable HDL >60 mg/dL - Negative Risk Performed By: #### 60050-8, 2132-01, PINR, 76640-0, AHP, CMP, THYR, FEPR, CBCA, , , 1967-11, 2283-12, 2275-08 #### [facility] ([id number]) [address] [facility], [address] [place], [place] [address]Gwtzlzlosco in LDL [Mass/Vol]96 mg/dLNormal<130ProCommunity Memorial HospitalComment on above:Result Comment: LDL <100 mg/dL - Desirable LDL >160 mg/dL - High Risk Performed By: #### 52459-2, 9, PINR, 21924-9, AHP, CMP, THYR, FEPR, CBCA, , , 1967-11, 2283-12, 2275-08 #### [facility] ([id number]) [address] [facility], [address] [place], [place] [address]Uzmjzksnbcf in VLDL [Mass/Vol]14 mg/dLNormal0-30ProMer[facility] Health [facility] on above:Performed By: #### 93977-7, 9, PINR, 90081-5, AHP, CMP, THYR, FEPR, CBCA, 70938-6, 34571-0, 1967-11, 2283-12, 2275-08 #### [facility] ([id number]) [address] [facility], [address] [place], [place] [address]GDVJVFZUVMC:HDL5.4High1.0-5.0ProCommunity Memorial HospitalComment on above:Performed By: #### 82043-9, 2131-9, PINR, 62516-6, AHP, CMP, THYR, FEPR, CBCA, 29783-8, 83270-6, 1967-11, 8, 2275-4 #### [facility] ([id number]) [address] [facility], [address] [place], [place] [address]Npcjughfnyox [Mass/Vol]70 mg/uWYzmxps36-164QncPnpwqg Toledo HospitalComment on above:Performed By: #### 94692-4, 9, PINR, 62302-3, AHP, CMP, THYR, FEPR, CBCA, 51573-3, 88591-9, 1967-11, 2283-12, 2275-08 #### [facility] ([id number]) [address] [facility], [address] [place], [place] [address]Ptdxr panelon 34-82-9802Exagimn [Mass/Vol]2.9 g/dLLow3.2 - 5.3 g/dLProMedica Health SystemALP [Catalytic activity/Vol]65 U/L39 - 130 U/L [facility]ica Health SystemALT No additional P-5'-P [Catalytic activity/Vol]20 U/L0 - 40 U/LProMedica Health SystemAST [Catalytic activity/Vol]31 U/L0 - 41 U/L [facility] Health SystemBilirubin [Mass/Vol]1.3 mg/dLHigh0.3 - 1.2 mg/dLProMedica Health SystemBilirubin.direct [Mass/Vol]0.5 mg/dLHigh0.0 - 0.4 mg/dLProClay County Hospital Health SystemInterpretation and review of laboratory resultsAbnormalProClay County Hospital Health SystemProtein [Mass/Vol]5.7 g/dLLow6.0 - 8.0 g/dLProVeterans Health Administration System [facility] SystemMAGNESIUMon 88-42-4510Ptlabmmsv [Mass/Vol]2.5 mg/dLNormal 1.8-2.6Regional Medical CenterComment on above:Performed By: #### 62327-9, 2131-9, PINR, 47590-2, AHP, CMP, THYR, FEPR, CBCA, 66949-1, 74054-4, 1967-, 8, 2275- #### [facility] ([id number]) [address], [address] [place], [place] [address]Zgocdixcgke 22-07-2618Zjfdnhcnk [Mass/Vol]2.5 mg/dL1.8 - 2.6 mg/dLBellevue HospitalNo Panel Informationon 43-89-7185NrtFktiplRegency Hospital Cleveland EastProVeterans Health Administration SystemPLATELET COUNT AND MPVon 39-35-2190Ofoiiwjy mean volume (Bld) [Entitic vol]8.7 fLNormal7-12ProMedWayne HospitalComment on above:Performed By: #### 48627-6, 2131-9, PINR, 81531-5, AHP, CMP, THYR, FEPR, CBCA, 71572-0, 07607-2, 1967-11, 2283-12, 2275- #### [facility] ([id number]) [address], [address] [place], [place] [address]Tlsdvfwwm (Bld) [#/Vol]277 10*3/zARrrxqx781-116TmqIzeeowRegional Medical CenterComment on above:Performed By: #### 89603-8, 2131-9, PINR, 21634-4, AHP, CMP, THYR, FEPR, CBCA, 38602-1, 97074-2, 1967-11, 2283-12, 2275- #### [facility] ([id number]) [address], [address] [place], [place] [address]GYGUNSKMFhp 65-94-3802Mcnxhvwyz [Moles/Vol]3.3 mmol/LLow3.5-5.0 Regional Medical CenterComment on above:Performed By: #### 02504-9, 2131-9, PINR, 11777-8, AHP, CMP, THYR, FEPR, CBCA, 02907-1, 48383-7, 1967-7, 2283-8, 6-4 #### [facility] ([id number]) [address], [address] [place], [place] [address]XNXRUEP AND INRon 03-39-1550VDW Coag (PPP) [Relative time]1.2 {INR}High0.8-1.1PSelect Medical TriHealth Rehabilitation HospitalComment on above:Performed By: #### 41090-4, 2131-9, PINR, 26889-2, AHP, CMP, THYR, FEPR, CBCA, 43008-2, 30084-8, 1967-, 2283-12, 6-4 #### [facility] ([id number]) [address], [address] [place], [place] [address]VZ Coag (PPP) [Time]13.9 sHigh9.8-13.2PSelect Medical TriHealth Rehabilitation Hospital Comment on above:Performed By: #### 84936-0, 2131-9, PINR, 69838-8, AHP, CMP, THYR, FEPR, CBCA, 41290-0, 94955-0, 1967-11, 2283-12, 6-4 #### [facility] ([id number]) [address], [address] [place], [place] [address]Dpbrgguk counton 04-89-7489Umsaguiq mean volume (Bld) [Entitic vol]8.7 fL7 - 12 [facility] SystemPlatelets (Bld) [#/Vol]277 10*3/uL [facility]vue HospitalPotassiumon 66-77-5746Qflczitkg [Moles/Vol]3.3 mmol/LLow 3.5 - 5.0 mmol/LProMedLake County Memorial Hospital - West SystemPotassium [Moles/Vol]on 06-08-2024 Interpretation and review of laboratory resultsAbMayo Clinic Health System– NorthlandProtime & INRon 92-40-7130HXS Coag (PPP) [Relative time] 1.2 {INR}[facility] CenterInterpretation and review of laboratory resultsAbnoFormerly [facility], 1928–1983PT Coag (PPP) [Time]13.9 [facility] General HospitalaPTT Coag (PPP) [Time]on 06-08-2024 Interpretation and review of laboratory resultsAbnoMercyhealth Walworth Hospital and Medical CenteraPTT Coag (Bld) [Time]38 [address] Fowler StreetCommarshfield medical center on above:Performed By: #### 71323-5, 2131-9, PINR, 36659-2, AHP, CMP, THYR, FEPR, CBCA, 84720-0, 24804-3, 1967-, 2283-8, 2276-4 #### [facility] ([id number]) [address] [facility], [address] [place], [place] [address]Hqmviqgjixhzcf and review of laboratory resultsAbEncompass Health Rehabilitation Hospital of ReadingaPTT Coag (Bld) [Time]80 [address] Williams StreetCommarshfield medical center on above:Performed By: #### 98407-6, 2131-9, PINR, 54878-9, AHP, CMP, THYR, FEPR, CBCA, 27848-2, 97862-4, 1967-, 2283-8, 2276-4 #### [facility] ([id number]) [address] [facility], [address] [place], [place] [address]VEZJY HEPATITIS PANELon 75-41-8209RAAG HCV W/PCR REFLX Non-ReactiveNoSelect Medical Cleveland Clinic Rehabilitation Hospital, BeachwoodCommarshfield medical center on above:Result Comment: NEW TEST METHOD NOTE If recent infection suspected, recommend repeat testing (>2 months). Rxrwge-ed-djxndn ratio is <1.00.Performed By: #### 48352-8, 2-9, PINR, 65311- 9, AHP, CMP, THYR, FEPR, CBCA, 78684-2, 39828-8, 1967-11, 2283-12, 2275- #### [facility] ([id number]) [address] [facility], [address] [place], [place] [address]JTCCWWIWY A IGMNon-ReactiveNormalNRCTRegional Medical Center Comment on above:Result Comment: NEW TEST METHODPerformed By: #### 47639-1, 2131-9, PINR, 45876-2, AHP, CMP, THYR, FEPR, CBCA, 17068-2, 41939-4, 1967-11, 2283-12, 2275- #### [facility] ([id number]) [address] [facility], [address] [place], [place] [address]YMXMBOBMF B CORE IGMNon-ReactiveNormalNRCTRegional Medical CenterComment on above:Result Comment: NEW TEST METHODPerformed By: #### 38478-7, 2131-9, PINR, 57477-6, AHP, CMP, THYR, FEPR, CBCA, 87660-6, 76359-7, 1967-11, 2283-12, 2275- #### [facility] ([id number]) [address] [facility], [address] [place], [place] [address]IDCFNVBZC B SURF AGNon-ReactiveNormalNRCTRegional Medical CenterComment on above:Result Comment: NEW TEST METHODPerformed By: #### 52471-4, 2131-9, PINR, 75750-5, AHP, CMP, THYR, FEPR, CBCA, 48162-5, 04948-6, 1967-11, 2283-12, 2275-08 #### [facility] ([id number]) [address] [facility], [address] [place], [place] [address]EYVAARRmh 16-26-7481Dnghlkn (P) [Moles/Vol]32 umol/KCcpdcz47-17 [facility] Hospital - ColumbusComment on above:Result Comment: NEW REFERENCE RANGE Performed By: #### 25040-2, 2-9, PINR, 53776-7, AHP, CMP, THYR, FEPR, CBCA, 62952-7, 29005-0, 1967-7, 2284-8, 2276-4 #### [facility] ([id number]) [address] [facility], [address] [place], [place] [address]MTEPsk 31-68-5539hOGU Coag (PPP) [Time]52 [facility] SystemaPTT Coag (PPP) [Time]37 sPrMemorial Hospital SystemAmmoniaon 06-07-2024 Ammonia (P) [Moles/Vol]32 umol/L18 - 72 umol/LProMedica Sycamore Medical Center SystemComment on above:NEW REFERENCE RANGEAmmonia (P) [Moles/Vol]on 82-18-9373MlkFdmmfxBellevue HospitalAnti XA unfractionated heparinon 74-90-6605Xrbpmja unfractionated Chromogenic method Qn (PPP)0.14LowBellevue HospitalComment on above: Optimal time for testing is 6 hrs post dosage This test is specific for monitoring patients on UFH, and is not recommended for use with other Anti-Xa medications. BILIRUBIN,DIRECTon 00-86-9078Tkwsvfbbv.direct [Mass/Vol]0.6 mg/dLHigh0.0-0.4 Regional Medical CenterComment on above:Performed By: #### 06297-4, 2131-9, PINR, 18127-4, AHP, CMP, THYR, FEPR, CBCA, 54311-1, 69719-5, 1967-7, 2283-8, 2276-4 #### [facility] ([id number]) [address] [facility], [address] [place], [place] [address]Ckpwtrock, directon 30-55-2237Onxseywqf.direct [Mass/Vol]0.6 mg/dLHigh0.0 - 0.4 mg/dLBellevue HospitalBilirubin.direct [Mass/Vol]on 55-93-7394Daxvplwdonbfmr and review of laboratory resultsAbnormalProMedica Health SystemProMedica Health SystemCBC AND AUTO DIFFon 28-23-1699HABGWXNZ BASOPHIL0.1 X10E9/LNormal0.0-0.2PSelect Medical TriHealth Rehabilitation HospitalComment on above: Performed By: #### 37250-4, 2131-9, PINR, 44705-5, AHP, CMP, THYR, FEPR, CBCA, 30630-9, 92817-8, 1967-11, 2283-12, 2275- #### [facility] ([id number]) [address], [address] [place], [place] [address]WSSWLCPR NEUTROPHIL5.7 X10E9/LNormal1.5-6.6ProCommunity Memorial HospitalComment on above:Performed By: #### 47554-4, 9, PINR, 44800-5, AHP, CMP, THYR, FEPR, CBCA, 36449-1, 40808-1, 1967-11, 2283-12, 2275- #### [facility] ([id number]) [address] [facility], [address] [place], [place] [address]Vsliwmcujtyl Ql (Bld)2+AbnormalNONEPSelect Medical TriHealth Rehabilitation Hospital Comment on above:Performed By: #### 99839-5, 9, PINR, 94128-0, AHP, CMP, THYR, FEPR, CBCA, 73712-0, 96330-4, 1967-11, 2283-12, 2275- #### [facility] ([id number]) [address], [address] [place], [place] [address]Mvknkmrgp/100 WBC (Bld)1.8 %NormalRegional Medical Center Comment on above:Performed By: #### 32380-8, 9, PINR, 59898-8, AHP, CMP, THYR, FEPR, CBCA, 85330-9, 54531-1, 1967-11, 2283-12, 2275-4 #### [facility] ([id number]) [address] [facility], [address] [place], [place] [address]Ynhctyffqlh (Bld) [#/Vol]0.1 10*3/uLNormal0.0-0.4ProCommunity Memorial HospitalComment on above:Performed By: #### 95826-7, 9, PINR, 27395- 9, AHP, CMP, THYR, FEPR, CBCA, 38077-5, 10482-0, 1967-, 2283-12, 2275-4 #### [facility] ([id number]) [address] [facility], [address] [place], [place] [address]Hllwjenldae/100 WBC (Bld)1.0 %NormalProCommunity Memorial Hospital Comment on above:Performed By: #### 60317-6, 9, PINR, 02508-5, AHP, CMP, THYR, FEPR, CBCA, 00649-8, 88248-1, 1967-11, 2283-12, 2275-4 #### [facility] ([id number]) [address] [facility], [address] [place], [place] [address]Tyusjvohbhw distribution width (RBC) [Ratio]23.8 %High11.5-15.0 [facility] Hospital - ColumbusComment on above:Performed By: #### 70474-1, 9, PINR, 58628-9, AHP, CMP, THYR, FEPR, CBCA, 38644-6, 68550-0, 1967-11, 2283-12, 2275- #### [facility] ([id number]) [address] [facility], [address] [place], [place] [address]Lwoistkstg (Bld) [Volume fraction]35.2 %Jjr43-28QvjUdgnmoCommunity Memorial HospitalComment on above:Performed By: #### 98883-6, 9, PINR, 52382-3, AHP, CMP, THYR, FEPR, CBCA, 04247-5, 82783-7, 1967-11, 8, 2275-4 #### [facility] ([id number]) [address] [facility], [address] [place], [place] [address]Kqcilsbgxl (Bld) [Mass/Vol]10.9 g/dLLow13.0-17.0Pro[facility] Hospital - ColumbusComment on above:Performed By: #### 40795-4, 9, PINR, 05996-7, AHP, CMP, THYR, FEPR, CBCA, 95103-8, 09307-3, 1967-11, 2283-12, 2275- #### [facility] ([id number]) [address] [facility], [address] [place], [place] [address]HHWVUZTIJMF5+AbnormalNONEProMedWayne HospitalComment on above:Performed By: #### 99695-3, 2132-01, PINR, 88395-0, AHP, CMP, THYR, FEPR, CBCA, 85550-0, 39885-3, 1967-11, 8, 2275- #### [facility] ([id number]) [address] [facility], [address] [place], [place] [address]Idjslfmlzpx (Bld) [#/Vol]0.2 10*3/uLLow1.0-3.5Pro[facility] Hospital - ColumbusComment on above:Performed By: #### 29412-8, 2132-01, PINR, 29313-5, AHP, CMP, THYR, FEPR, CBCA, 36724-9, 13777-1, 1967-11, 2283-12, 2275- #### [facility] ([id number]) [address] [facility], [address] [place], [place] [address]Ymlkrqcfefr/100 WBC (Bld)3.0 %NormalProCommunity Memorial Hospital Comment on above:Performed By: #### 65153-0, 2132-01, PINR, 55756-1, AHP, CMP, THYR, FEPR, CBCA, 25006-5, 71025-1, 1967-, 2283-8, 2276-4 #### [facility] ([id number]) [address] [facility], [address] [place], [place] [address]EYV (RBC) [Entitic mass]22.6 gsBqc69-08OccCitdqdRegional Medical Center Comment on above:Performed By: #### 52200-8, 9, PINR, 69602-2, AHP, CMP, THYR, FEPR, CBCA, 18921-5, 76146-9, 1967-, 2283-8, 2275-4 #### [facility] ([id number]) [address] [place] [address], [address] [place], [place] [address]WDTC (RBC) [Mass/Vol]31.1 g/rCIgp70-69TeeJvbxjiRegional Medical Center Comment on above:Performed By: #### 08182-0, 2132-01, PINR, 21216-8, AHP, CMP, THYR, FEPR, CBCA, 42444-7, 86372-9, 1967-11, 2283-12, 2275- #### [facility] ([id number]) [address] [place] [address], [address] [place], [place] [address]ZWB (RBC) [Entitic vol]73 nLBsv90-451EsmRijaglRegional Medical Center Comment on above:Performed By: #### 43228-1, 9, PINR, 96726-4, AHP, CMP, THYR, FEPR, CBCA, 03751-3, 93430-1, 1967-11, 2283-12, 2275-4 #### [facility] ([id number]) [address] [place] [address], [address] [place], [place] [address]Aslimjjwq (Bld) [#/Vol]0.3 10*3/uLNormal0-0.9Regional Medical CenterComment on above:Performed By: #### 53970-2, 2132-9, PINR, 80336-9, AHP, CMP, THYR, FEPR, CBCA, 87344-6, 12165-4, 1967-11, 2283-12, 2275- #### [facility] ([id number]) [address], [address] [place], [place] [address]Hwwhdlfhm/100 WBC (Bld)5.2 %NormalRegional Medical Center Comment on above:Performed By: #### 02239-3, 9, PINR, 58296-8, AHP, CMP, THYR, FEPR, CBCA, 05176-5, 87749-4, 1967-, 2283-12, 2275- #### [facility] ([id number]) [address], [address] [place], [place] [address]Hswnqyledoc/100 WBC (Bld)89.0 %NormalRegional Medical Center Comment on above:Performed By: #### 27246-5, 9, PINR, 54978-7, AHP, CMP, THYR, FEPR, CBCA, 59691-4, 26341-2, 1967-11, 2283-12, 2275- #### [facility] ([id number]) [address], [address] [place], [place] [address]KYISYVLRY2+AbnormalNONEProMedica Select Medical Specialty Hospital - ColumbusComment on above:Performed By: #### 41506-2, 9, PINR, 77421-0, AHP, CMP, THYR, FEPR, CBCA, 61237-8, 67875-7, 1967-11, 2283-12, 2275- #### [facility] ([id number]) [address], [address] [place], [place] [address]Pclxzwox mean volume (Bld) [Entitic vol]8.7 fLNormal7-12 [facility] Hospital - ColumbusComment on above:Performed By: #### 59988-7, 9, PINR, 98395-5, AHP, CMP, THYR, FEPR, CBCA, 32678-5, 39975-0, 1967-, 2283-8, 2275-4 #### [facility] ([id number]) [address], [address] [place], [place] [address]Psfflsflq (Bld) [#/Vol]259 10*3/vDHmuvdn201-406UvoErjoiy Toledo HospitalComment on above:Performed By: #### 78058-4, 2131-9, PINR, 00400-8, AHP, CMP, THYR, FEPR, CBCA, 23482-5, 90100-4, 1967-, 2283-12, 2275- #### [facility] ([id number]) [address], [address] [place] [address]TGQ COUNT4.84 X10E12/LNormal4.10-5.70Pro[facility] Comment on above:Performed By: #### 17086-3, 2131-9, PINR, 61877-9, AHP, CMP, THYR, FEPR, CBCA, 40471-4, 05975-8, 1967-11, 2283-12, 2275- #### [facility] ([id number]) [address], [address] [place], [place] [address]PNP (Bld) [#/Vol]6.4 10*3/uLNormal4.0-11.0ProCommunity Memorial HospitalComment on above:Performed By: #### 03058-1, 2131-9, PINR, 16778-8, AHP, CMP, THYR, FEPR, CBCA, 18598-5, 70134-9, 1967-11, 2283-12, 2275-4 #### [facility] ([id number]) [address], [address] [place], [place] [address]EEU auto differentialon 72-80-1349Xcwvcdxswkpi Ql (Bld)2+ AbnormalNONE^NONEProMedica Health SystemBasophils (Bld) [#/Vol]0.1 10*3/uL [facility] HospitalBasophils/100 WBC (Bld)1.8 %[facility] Eosinophils (Bld) [#/Vol]0.1 10*3/uLBellevue HospitalEosinophils/100 WBC (Bld)1 %B[facility]vue HospitalErythrocyte distribution width (RBC) [Ratio]23.8 %High11.5 - 15.0 %[facility] HospitalHematocrit (Bld) [Volume fraction]35.2 %Low39 - 49 %[facility] HospitalHemoglobin (Bld) [Mass/Vol]10.9 g/dLLow13.0 - 17.0 g/dLBellevue HospitalHypochromia Ql (Bld)1+AbnormalNONE^NONE [facility] HospitalInterpretation and review of laboratory resultsAbnormal [facility] HospitalLymphocytes (Bld) [#/Vol]0.2 10*3/uLLowBellevue HospitalLymphocytes/100 WBC (Bld)3 %[facility] HospitalMCH (RBC) [Entitic mass]22.6 pgLow27 - 34 pgPProtestant Deaconess HospitalMCHC (RBC) [Mass/Vol]31.1 g/dL Low32 - 36 g/dLBellevue HospitalMCV (RBC) [Entitic vol]73 fLLow80 - 100 fL [facility] HospitalMonocytes (Bld) [#/Vol]0.3 10*3/uLBellevue Hospital Monocytes/100 WBC (Bld)5.2 %[facility] HospitalNeutrophils (Bld) [#/Vol]5.7 10*3/uLBellevue HospitalNeutrophils/100 WBC (Bld)89 %[facility] HospitalOvalocytes LM Ql (Bld)2+AbnormalNONE^NONEBellevue HospitalPlatelet mean volume (Bld) [Entitic vol]8.7 fL7 - 12 fLPProtestant Deaconess HospitalPlatelets (Bld) [#/Vol]259 10*3/uLKettering Health Hamilton SystemRBC (Bld) [#/Vol]4.84 10*6/uL [facility] HospitalWBC corrected for nucl RBC Auto (Bld) [#/Vol]6.4St. [facility] Medical CenterCOMPREHENSIVE METABOLIC PANELon 06-07-2024 Albumin [Mass/Vol]2.9 g/dLLow3.2-5.3ProMedWayne HospitalComment on above: Performed By: #### 47332-4, 2132-01, PINR, 82096-7, AHP, CMP, THYR, FEPR, CBCA, 54971-5, 91013-3, 1967-7, 2283-8, 6-4 #### [facility] ([id number]) [address] [place] [address], [address] [place], [place] [address]UWR [Catalytic activity/Vol]60 U/KNbojzu70-855DxvOyvezf Toledo HospitalComment on above:Performed By: #### 75535-8, 2132-01, PINR, 35937-7, AHP, CMP, THYR, FEPR, CBCA, 29504-5, 10156-1, 1967-, 8, 2275-4 #### [facility] ([id number]) [address] [place] [address], [address] [place], [place] [address]ZBU [Catalytic activity/Vol]21 U/LNormal0-40ProCommunity Memorial HospitalComment on above:Performed By: #### 62140-8, 2132-01, PINR, 06385-5, AHP, CMP, THYR, FEPR, CBCA, 63515-2, 49395-9, 1967-, 8, 2275-4 #### [facility] ([id number]) [address] [place] [address], [address] [place], [place] [address]Olaxu gap [Moles/Vol]11 mmol/LNormal5-15ProCommunity Memorial HospitalComment on above:Performed By: #### 98859-2, 2132-01, PINR, 92757-9, AHP, CMP, THYR, FEPR, CBCA, 07289-4, 07558-7, 1967-, 2283-8, 2275-4 #### [facility] ([id number]) [address] [facility], [address] [place], [place] [address]ZHM [Catalytic activity/Vol]29 U/LNormal0-41ProMediSelect Medical Specialty Hospital - [facility] [place] HospitalComment on above:Performed By: #### 22128-1, 2132-01, PINR, 59139-3, AHP, CMP, THYR, FEPR, CBCA, 11169-0, 15441-4, 1967-, 2283-8, 2275-4 #### [facility] ([id number]) [address] [facility], [address] [place], [place] [address]Bxupvkrph [Mass/Vol]1.6 mg/dLHigh0.3-1.2ProMedBerger Hospital HospitalComment on above:Performed By: #### 80877-8, 2132-01, PINR, 15657-2, AHP, CMP, THYR, FEPR, CBCA, 82302-7, 76892-8, 1967-11, 2283-12, 2275-4 #### [facility] ([id number]) [address] [facility], [address] [place], [place] [address]Jxfvfhf [Mass/Vol]8.6 mg/dLNormal8.5-10.5ProMedBerger Hospital HospitalComment on above:Performed By: #### 42260-9, 9, PINR, 64418-6, AHP, CMP, THYR, FEPR, CBCA, 56486-9, 78726-2, 1967-11, 2283-12, 2275-4 #### [facility] ([id number]) [address] [facility], [address] [place], [place] [address]Tinsdlaj [Moles/Vol]106 mmol/SYyfsjo09-992PryIpxaca [place] HospitalComment on above:Performed By: #### 35108-1, 2132-01, PINR, 32123-3, AHP, CMP, THYR, FEPR, CBCA, 90969-8, 72955-6, 1967-11, 8, 2275-08 #### [facility] ([id number]) [address], [address] [place], [place] [address]IY7 [Moles/Vol]27 mmol/XVjkwol34-71UdxNwqackSelect Medical [facility] Comment on above:Performed By: #### 84553-0, 9, PINR, 43806-7, AHP, CMP, THYR, FEPR, CBCA, 37752-4, 65078-6, 1967-11, 2283-12, 2275-08 #### [facility] ([id number]) [address] [facility], [address] [place] [address]Aouedjblmp [Mass/Vol]1.44 mg/dLHigh0.60-1.30ProCommunity Memorial HospitalComment on above:Result Comment: METHOD TRACEABLE TO IDMS STANDARD Performed By: #### 94550-3, 9, PINR, 71696-3, AHP, CMP, THYR, FEPR, CBCA, 49337-4, 74571-7, 1967-11, 2283-12, 2275-08 #### [facility] ([id number]) [address] [facility], [address] [place] [address]MEB/1.73 sq M.predicted among non-blacks MDRD (S/P/Bld) [Vol rate/Area]53 mL/min/{1.73_m2}Low>59ProCommunity Memorial HospitalComment on above: Result Comment: Reported eGFR is based on the CKD-EPI 2020 equation that does not use a race coefficient.Performed By: #### 21791-1, 9, PINR, 42244-9, AHP, CMP, THYR, FEPR, CBCA, 03738-8, 17397-2, 1967-11, 2283-12, 2275- #### [facility] ([id number]) [address] [facility], [address] [place], [place] [address]Bqalqpy [Mass/Vol]91 mg/gERntvbc84-66ArdBkuockRegional Medical Center Comment on above:Performed By: #### 27643-6, 2132-01, PINR, 70122-1, AHP, CMP, THYR, FEPR, CBCA, 74388-3, 35664-2, 1967-11, 2283-12, 2275-4 #### [facility] ([id number]) [address] [facility], [address] [place], [place] [address]Grvdtekti [Moles/Vol]3.3 mmol/LLow3.5-5.0ProCommunity Memorial HospitalComment on above:Performed By: #### 82939-2, 2132-01, PINR, 27119-8, AHP, CMP, THYR, FEPR, CBCA, 01030-8, , 1967-11, 2283-12, 2275- #### [facility] ([id number]) [address] [facility], [address] [place], [place] [address]Rfacfur [Mass/Vol]5.4 g/dLLow6.0-8.0[facility] Comment on above:Performed By: #### 87524-8, 2132-01, PINR, 76452-9, AHP, CMP, THYR, FEPR, CBCA, 40279-2, 41404-4, 1967-11, 2283-12, 2275-4 #### [facility] ([id number]) [address] [facility], [address] [place], [place] [address]Bgugxt [Moles/Vol]144 mmol/VOkavlc698-865YpmUtxcwg Toledo HospitalComment on above:Performed By: #### 35508-8, 2132-01, PINR, 77720-1, AHP, CMP, THYR, FEPR, CBCA, 47025-1, 90453-8, 1967-11, 2283-12, 2275-4 #### [facility] ([id number]) [address], [address] [place], [place] [address]Tfhs nitrogen [Mass/Vol]30 mg/dLHigh5-27ProMedica [facility] Hospital - ColumbusComment on above:Performed By: #### 68928-7, 2132-9, PINR, 83239-5, AHP, CMP, THYR, FEPR, CBCA, 34716-4, 84035-9, 1968-7, 2284-8, 2276-4 #### [facility] ([id number]) [address], [address] [place], [place] [address]ND ABDOMEN AND PELVIS WO CONTon 66-05-5574BR ABDOMEN AND PELVIS WO CONTCT ABDOMEN AND [...] by Baldev Hyde MD on 06/07/2024 10:07 [facility] Pelvis WO contraston 08-65-6284MYPBUFMY INFORMATION: Abdominal pain radiating to the back, [...] Baldev Hyde MD on 06/07/2024 10:07 [facility], Baldev Pride MD - 06/07/2024 CLINICAL INFORMATION: [...] Baldev Hyde MD on 06/07/2024 10:07 AM XocketsRadiology Study observation (narrative)XocketsCT Abdomen and Pelvis WO contrastOrdered By: Baldev Hyde on 06-07-2024 [employer] Work Phone: CT BRAIN WO CONTon [phone] BRAIN WO CONTCT BRAIN WO CONT CT [...] by Gab Clay MD on 06/07/2024 10:01 [facility]on 06-07-2024 CT HEAD [...] Gab Clay MD on 06/07/2024 10:01 PM [facility] SystemRadiology Study observation (narrative)Bellevue HospitalCobalamin (Vitamin B12) [Mass/Vol]on 69-83-6701Wbwphboycaehea and review of laboratory resultsAbnormalMayo Clinic Health System– Northland SystemComprehensive metabolic panelon 06-07-2024 Albumin [Mass/Vol]2.9 g/dLLow3.2 - 5.3 g/dLProKettering Health Springfieldca Health SystemALP [Catalytic activity/Vol]60 U/L39 - 130 U/LProMedica Health SystemALT No additional P-5'-P [Catalytic activity/Vol]21 U/L0 - 40 U/LProMedica Health SystemAnion gap [Moles/Vol]11 mmol/L5 - 15 mmol/LProMedica Health SystemAST [Catalytic activity/Vol]29 U/L0 - 41 U/LProMedica Health SystemBilirubin [Mass/Vol]1.6 mg/dLHigh0.3 - 1.2 mg/dLPorter Medical CenterMedica Health SystemCalcium [Mass/Vol]8.6 mg/dL8.5 - 10.5 mg/dLPremier Health Atrium Medical Center Health SystemChloride [Moles/Vol]106 mmol/L98 - 109 mmol/L [facility] SystemedicGillette Children's Specialty Healthcare SystemCO2 [Moles/Vol]27 mmol/L22 - 32 mmol/LProMedica Health SystemCreatinine [Mass/Vol]1.44 mg/dLHigh0.60 - 1.30 mg/dLKettering Health Hamilton SystemComment on above:METHOD TRACEABLE TO IDMS STANDARDeGFR (CKD-EPI)non-race ixpelebiw06Mxs- PINFProMedica Health SystemComment on above: Reported eGFR is based on the CKD-EPI 2020 equation that does not use a race coefficient. Glucose [Mass/Vol]91 mg/dL65 - 99 mg/dLProVeterans Health Administration SystemPotassium [Moles/Vol]3.3 mmol/LLow3.5 - 5.0 mmol/LProMedica Health SystemProtein [Mass/Vol]5.4 g/dLLow6.0 - 8.0 g/dLProMedimo Health SystemSodium [Moles/Vol]144 mmol/L134 - 146 mmol/LPrCrossroads Regional Medical Centerica Health SystemUrea nitrogen [Mass/Vol]30 mg/dL High5 - 27 mg/dLBellevue HospitalDRUG SCREEN, URINEon 06-07-2024 AMPHETAMINE/METHAMPNegativeNormalNEGProCommunity Memorial HospitalComment on above: Result Comment: AMPH/METH screening cut off = 1000 ng/mLPerformed By: #### 07942-3, 9, PINR, 41556-6, AHP, CMP, THYR, FEPR, CBCA, 54248-8, 03246-1, 1967-7, 4-8, 2276-4 #### [facility] ([id number]) [address] [place] [address], [address] [place], [place] [address]GGYRCUXDDZACNcaztbemPwxcisJJBPiaJexmap Toledo HospitalComment on above:Result Comment: Barbiturates screening cut off value = 200 ng/mLPerformed By: #### 87332-6, 9, PINR, 12703-3, AHP, CMP, THYR, FEPR, CBCA, 41045-3, 93417-8, 1967-, 2283-8, 2276-4 #### [facility] ([id number]) [address] [place] [address], [address] [place], [place] [address]KIZYPOHLZNORRHLUtbelcqiWnnjtyVXAPufXzgflk Toledo HospitalComment on above:Result Comment: Benzodiazepines screening cut off value = 200 ng/mL Performed By: #### 02168-3, 9, PINR, 15271-5, AHP, CMP, THYR, FEPR, CBCA, 70053-6, 54420-9, 1967-11, 2283-8, 6-4 #### [facility] ([id number]) [address], [address] [place], [place] [address]YJABDJJIIBFZImhvpuiaFivrkrcvFXJNxeOdsdkf [place]edo HospitalComment on above:Result Comment: Confirmation available upon request. Cannabinoids/THC screening cut off value = 50 ng/mLPerformed By: #### 36451-8, 9, PINR, 02992-5, AHP, CMP, THYR, FEPR, CBCA, 85439-2, 11626-1, 1967-, 2283-12, 2275- #### [facility] ([id number]) [address], [address] [place], [place] [address]PQYKKLX METABOLITENegativeNormalNEGRegional Medical Center Comment on above:Result Comment: Cocaine screening cut off value = 300 ng/mL Performed By: #### 34524-5, 9, PINR, 12226-0, AHP, CMP, THYR, FEPR, CBCA, 83926-8, 65423-6, 1967-11, 2283-12, 2275- #### [facility] ([id number]) [address], [address] [place], [place] [address]HOGXMTZDqqurnohKtbgalGLHAgdFuggsh [place]edo HospitalComment on above:Result Comment: Ecstasy screening cut off value = 500 ng/mL This report is intended for use in clinical monitoring or management of patients.Performed By: #### 39002-1, 2131-9, PINR, 68775-0, AHP, CMP, THYR, FEPR, CBCA, 55807-8, 58465-6, 1967-11, 2283-12, 2275- #### [facility] ([id number]) [address], [address] [place], [place] [address]JAUYCWLQQCijcblplEschzcYKRCjzRnwrco Bañuelos HospitalComment on above:Result Comment: Methadone screening cut off value = 300 ng/mL.Performed By: #### 41657-4, 2132-01, PINR, 14670-9, AHP, CMP, THYR, FEPR, CBCA, 75003-8, 99070-4, 1967-7, 2283-8, 2276-4 #### [facility] ([id number]) [address] [facility], [address] [place], [place] [address]GIQQIGYGvfhsgdgHaydlhYKCVjeQcpxnu [facility]edo HospitalCommarshfield medical center on above:Result Comment: Opiates screening cut off value = 300 ng/mL NOTE: This test is used for the detection of codeine, hydrocodone (>1000 ng/mL), morphine and hydromorphone (>900 ng/mL) in urine.Performed By: #### 03314-7, 2132-01, PINR, 23271-8, AHP, CMP, THYR, FEPR, CBCA, 14742-3, 19593-9, 1967-, 2283-8, 6-4 #### [facility] ([id number]) [address] [facility], [address] [place], [place] [address]AHHKMVUOIGpdnlymzSgrnfqSLXNplIyegyb [facility] HospitalCommarshfield medical center on above:Result Comment: Oxycodone screening cut off value = 300 ng/mL NOTE: This test is used for the detection of oxycodone and oxymorphone in urine.Performed By: #### 67599-7, 2132-01, PINR, 56871-5, AHP, CMP, THYR, FEPR, CBCA, 17005-8, 51718-9, 1967-, 2283-8, 6-4 #### [facility] ([id number]) [address] [facility], [address] [place], [place] [address]CCGUVVRMIILRMLnbuvehyIqzyudMBVGvwYlywxz [facility] HospitalCommarshfield medical center on above:Result Comment: Phencyclidine screening cut off value = 25 ng/mL Performed By: #### 44152-8, 2132-9, PINR, 06079-9, AHP, CMP, THYR, FEPR, CBCA, 68056-9, 51953-8, 1968-7, 2284-8, 2276-4 #### [facility] ([id number]) [address] [place] [address], [address] [place], [place] [address]Wrsn Screen, Urineon 54-18-9683Unehkygyaklo Screen method >1000 ng/mL Ql (U)NegativeNegative^NegativeProMedica Health [...] Tetrahydrocannabinol Screen method >50 ng/mL Ql (U)PositiveAbnormal Negative^NegativeBellevue HospitalComment on above:Confirmation available upon request. Cannabinoids/THC screening cut off value = 50 ng/mL Bellevue HospitalEEGon 81-58-1399Nsfdkm from the original result were not included. [...] or primary neurological disorders. Bertha Oakley MD [employer] Neurology/Neurophysiology [place] [facility] MANUALLY TRANSCRIBED RESULTSEEGOrdered By: Bertha Oakley on 67-63-1551WahMglclcBellevue Hospital Work Phone: FERRITINon 37-27-2310Jxtkyeba [Mass/Vol]41 ng/mLNormal 24-336ProCommunity Memorial HospitalComment on above:Performed By: #### 18180-7, 2132-9, PINR, 67468-0, AHP, CMP, THYR, FEPR, CBCA, 76445-6, 37587-3, 1968-7, 2284-8, 2276-4 #### [facility] ([id number]) [address] [facility], [address] [place], [place] [address]Uqsvrjxtwc 09-04-4674Bpqljhcn [Mass/Vol]41 ng/mL24 - 336 ng/mL Bellevue HospitalFerritin [Mass/Vol]on 54-61-0042NwuCzfjpjBellevue Hospital Folateon 44-98-0439Luvxoe [Mass/Vol]22.7 ng/mL5.8 - PINF ng/mLBellevue HospitalComment on above:NEW REFERENCE RANGEFolate [Mass/Vol]on 06-07-2024 Belle[facility] HospitalFOLIC ACID22.7 ng/mLNormal>5.8[facility] Comment on above:Result Comment: NEW REFERENCE RANGEPerformed By: #### 29457-2, 2131-9, PINR, 81111-2, AHP, CMP, THYR, FEPR, CBCA, 31345-5, 76190-7, 1967-, 2283-, 2275- #### [facility] ([id number]) [address] [place] [address], [address] [place], [place] [address]Prnjlyu Glucometer (BldC) [Mass/Vol]on 51-88-1328Kjfobtg [Mass/Vol]86 mg/dL65 - 99 mg/dLSt. Mary Medical Center Glucose [Mass/Vol]86 mg/tRYgakhv06-52CfyGsianmRegional Medical CenterHeparin unfractionated Chromogenic method Qn (PPP)on 76-17-5571Kcwkzlcsretmol and review of laboratory resultsAbnormRiddle HospitalANTI XA UFH0.14 IU/mLLow0.30-0.70Reg[facility] Medical CenterComment on above:Result Comment: Optimal time for testing is 6 hrs post dosage This test is specific for monitoring patients on UFH, and is not recommended for use with other Anti-Xa medications.Performed By: #### 09944-6, 2-9, PINR, 17530-4, AHP, CMP, THYR, FEPR, CBCA, 01522-8, 15438-4, 1967-11, 2283-12, 2275- #### [facility] ([id number]) [address] [place] [address], [address] [place], [place] [address]Pczjpizzl panel, acuteon 65-57-3955KYR IgM IA QlNon-Reactive Non-Reactive^Non-ReactiveBellevue HospitalComment on above:NEW TEST METHOD HBV core IgM IA NoWyo-XujzsyvoSbi-Pctwpgnt^Non-ReactiveBellevue Hospital Comment on above:NEW TEST METHODHBV surface Ag IA QlNon-Reactive Non-Reactive^Non-ReactiveBellevue HospitalComment on above:NEW TEST METHOD HCV Ab IA TcUuk-GupxfulfAng-Cqcxuhqu^Non-ReactiveBellevue HospitalComment on above:NEW TEST METHOD NOTE If recent infection suspected, recommend repeat testing (>2 months). Umatoi-ca-hmjybu ratio is <1.00. Bellevue HospitalIRON PROFILEon 91-93-5148Xqld [Mass/Vol]16 ug/nHTix78-412 [facility] Medical CenterComment on above:Performed By: #### 36517-6, 2132-01, PINR, 81205-1, AHP, CMP, THYR, FEPR, CBCA, 30051-8, 77492-5, 1967-11, 2283-12, 2275- #### [facility] ([id number]) [address] [facility], [address] [place], [place] [address]NZJR KHHDBEN616 ug/pOScuysf165-972JjnVoeiroRegional Medical Center Comment on above:Performed By: #### 43011-2, 2132-01, PINR, 80880-1, AHP, CMP, THYR, FEPR, CBCA, 41695-6, 89831-2, 1967-11, 2283-12, 2275- #### [facility] ([id number]) [address] [facility], [address] [place], [place] [address]OXKD SATURATION5 % MDNXTLEOATDgu69-74GdqCvgxvl [facility] Comment on above:Performed By: #### 49619-4, 2132-01, PINR, 78748-7, AHP, CMP, THYR, FEPR, CBCA, 80956-6, 99992-2, 1967-11, 2283-12, 2275-4 #### [facility] ([id number]) [address], [address] [place], [place] [address]Hdax and TIBCon 78-42-7895Mzwhigpkqziifr and review of laboratory resultsAbnormalProVeterans Health Administration SystemIron [Mass/Vol]16 ug/dLLow50 - 212 ug/dLProVeterans Health Administration SystemIron binding capacity [Mass/Vol]336 ug/dL250 - 425 ug/dLProBlanchard Valley Health System Blanchard Valley Hospitaln saturation [Mass fraction]5LowProRegency Hospital Cleveland EastProVeterans Health Administration SystemMAGNESIUMon 33-42-5030Vwmufldae [Mass/Vol] 2.7 mg/dLHigh1.8-2.6[facility] Medical CenterComment on above:Performed By: #### 71913-7, 9, PINR, 38251-1, AHP, CMP, THYR, FEPR, CBCA, 90674-8, 11926-7, 1967-7, 4-8, 2276-4 #### [facility] ([id number]) [address], [address] [place], [place] [address]Kgcyzyswv [Mass/Vol]1.5 mg/dLLow1.8-2.6[facility] Comment on above:Performed By: #### 98042-0, 9, PINR, 84824-4, AHP, CMP, THYR, FEPR, CBCA, 29359-3, 42762-1, 1967-, 2283-8, 2276-4 #### [facility] ([id number]) [address], [address] [place], [place] [address]QX MRCP WITH MRI ABD WO CONTon 77-10-9089SX MRCP WITH MRI ABD WO CONTMR MRCP [...] by Gab Clay MD on 06/07/2024 8:32 [facility] Abdomen WO contraston 06-07-2024 History: Recent with [...] Gab Clay MD on 06/07/2024 8:32 PM [facility] OhioCe[employer] [facility] HospitalRadiology Study observation (narrative)Bellevue HospitalMRCP Abdomen WO contrastOrdered By: Gab Clay on 60-64-2654WuxNbduqd Health System Work Phone: Magnesiumon 46-38-8541Mvpbtdcbd [Mass/Vol]2.7 mg/dL High1.8 - 2.6 mg/dLGeorgetown Behavioral HospitalGecko TV [facility] HospitalMagnesium [Mass/Vol]1.5 mg/dLLow1.8 - 2.6 mg/dLProRegency Hospital Cleveland EastNo Panel Informationon 59-21-0691Onyrbqukozufyr and review of laboratory resultsAbnormalMayo Clinic Health System– Northland SystemInterpretation and review of laboratory resultsAbnormBarberton Citizens HospitalProEncompass HealthPOTASSIUMon 06-07-2024 Potassium [Moles/Vol]3.2 mmol/LLow3.5-5.0Reg[facility] Medical CenterComment on above:Performed By: #### 08725-4, 2131-9, PINR, 09928-6, AHP, CMP, THYR, FEPR, CBCA, 17769-7, 45109-9, 1967-11, 2283-12, 2275- #### [facility] ([id number]) [address], [address] [place], [place] [address]UWXMYUE AND INRon 91-16-8603UOZ Coag (PPP) [Relative time]1.3 {INR}High0.8-1.1PSelect Medical TriHealth Rehabilitation HospitalComment on above:Performed By: #### 21596-9, 2131-9, PINR, 06651-4, AHP, CMP, THYR, FEPR, CBCA, 75328-3, 32868-3, 1967-11, 2283-12, 2275- #### [facility] ([id number]) [address], [address] [place], [place] [address]FA Coag (PPP) [Time]15.5 sHigh9.8-13.2PSelect Medical TriHealth Rehabilitation Hospital Comment on above:Performed By: #### 86897-0, 2131-9, PINR, 50037-6, AHP, CMP, THYR, FEPR, CBCA, 55835-1, 40508-0, 1967-11, 2283-12, 2275-4 #### [facility] ([id number]) [address], [address] [place], [place] [address]Pcedbpctpsm 66-06-5117Apxqoyzfm [Moles/Vol]3.2 mmol/LLow3.5 - 5.0 mmol/LProMedica Rehabilitation Institute Of MichiganProcalcitoninon 28-83-6624Meweaizwuaxzv IA [Mass/Vol]0.27 ng/mLHighNINF - 0.05 ng/mLBellevue HospitalComment on above:NOTE <0.50 ng/mL - Low risk of severe sepsis and/or septic shock. <2.00 ng/mL - Recommend retesting within 6-24 hours. >2.00 ng/mL - High risk of sepsis and/or septic shock. Procalcitonin IA [Mass/Vol]on 15-96-9621Xcmxbiozkpvuym and review of laboratory resultsAbnormalBellevue HospitalProRegency Hospital Cleveland EastPROCALCITONIN0.27 ng/mLHigh<0.05[facility] Medical CenterComment on above:Result Comment: NOTE <0.50 ng/mL - Low risk of severe sepsis and/or septic shock. <2.00 ng/mL - Recommend retesting within 6-24 hours. >2.00 ng/mL - High risk of sepsis and/or septic shock.Performed By: #### 63540- 0, 2132-9, PINR, 07095-6, AHP, CMP, THYR, FEPR, CBCA, 43966-0, 63548-7, 1968-7, 2284-8, 2276-4 #### [facility] ([id number]) [address] [facility], [address] [place], [place] [address]Afarjly & INRon 50-04-0905AYM Coag (PPP) [Relative time]1.3 {INR}HighBellevue HospitalInterpretation and review of laboratory results AbnormalBellevue HospitalPT Coag (PPP) [Time]15.5 [facility] Rehabilitation HospitalTHYROID PROFILEon 42-40-7426Heff T4 [Mass/Vol]1.08 ng/dLNormal0.61-1.60 [facility] SystemedicUniversity [address] John Medical CenterComment on above:Performed By: #### 29935-9, 2132-9, PINR, 59652-4, AHP, CMP, THYR, FEPR, CBCA, 93655-0, 86711-5, 1967-, 2283-8, 6-4 #### [facility] ([id number]) [address] [place] [address], [address] [place], [place] [address]MKU2.40 uIU/mLNormal0.49-4.67ProMedica Houston HospitalComment on above:Performed By: #### 71226-2, 9, PINR, 23199-4, AHP, CMP, THYR, FEPR, CBCA, 69441-8, 87329-4, 1967-, 2283-, 6-4 #### [facility] ([id number]) [address] [place] [address], [address] [place], [place] [address]Rnlyvhq profile includes TSH FT4on 51-28-9333Sxzc T4 [Mass/Vol] 1.08 ng/dL0.61 - 1.60 ng/dLCone Health Alamance Regional Qn2.4 m[IU]/LProMedPremier Health Miami Valley Hospital NorthProRegency Hospital Cleveland EastURINALYSISon 39-52-9494Fugsujzuc Ql (U) NegativeNormalNEGProSt. John Of God Hospital HospitalComment on above:Performed By: #### 96730-7, 9, PINR, 14168-7, AHP, CMP, THYR, FEPR, CBCA, 43558-0, 11325-3, 1967-, 2283-8, 6-4 #### [facility] ([id number]) [address] [place] [address], [address] [place], [place] [address]XJFNC/HGBLargeAbnormalNEGProSt. John Of God Hospital HospitalComment on above:Performed By: #### 56134-8, 9, PINR, 32091-7, AHP, CMP, THYR, FEPR, CBCA, 45345-3, 26743-3, 1967-11, 2283-8, 2276-4 #### [facility] ([id number]) [address] [place] [address], [address] [place], [place] [address]Tpces (U)YELLOWNormalYELLOWProMedica Select Medical Specialty Hospital - ColumbusComment on above:Performed By: #### 47234-9, 2131-9, PINR, 03272-9, AHP, CMP, THYR, FEPR, CBCA, 29845-7, 13382-3, 1967-11, 8, 2275-4 #### [facility] ([id number]) [address], [address] [place], [place] [address]Eeasfem Ql (U)NegativeNormalNEGProMedica Houston HospitalComment on above:Performed By: #### 12856-3, 2131-9, PINR, 83662-2, AHP, CMP, THYR, FEPR, CBCA, 41542-3, 79869-0, 1967-11, 2283-12, 2275- #### [facility] ([id number]) [address] [facility], [address] [place], [place] [address]Ihysbva Ql (U)TraceAbnormalNEGProSt. John Of God Hospital HospitalComment on above:Performed By: #### 95629-1, 2131-9, PINR, 05124-3, AHP, CMP, THYR, FEPR, CBCA, 24082-6, 63662-2, 1967-11, 2283-12, 2275- #### [facility] ([id number]) [address] [facility], [address] [place], [place] [address]Snmjyrjbo esterase Test strip Ql (U)NegativeNormalNEGProKettering Health Springfieldca Houston HospitalComment on above:Performed By: #### 53978-7, 2131-9, PINR, 20723- 9, AHP, CMP, THYR, FEPR, CBCA, 80799-3, 95202-3, 1967-11, 2283-12, 2275-4 #### [facility] ([id number]) [address], [address] [place], [place] [address]XADWXDAKUPKSZAtopruzfCJEEZkxGeqmtz [facility] Hospital - ColumbusComment on above:Performed By: #### 75167-7, 9, PINR, 16041-6, AHP, CMP, THYR, FEPR, CBCA, 25804-9, 94033-5, 1967-11, 2283-12, 2275-08 #### [facility] ([id number]) [address], [address] [place], [place] [address]Mgstyfb Ql (U)NegativeNormalNEGProCommunity Memorial HospitalComment on above:Performed By: #### 14161-9, 9, PINR, 99641-6, AHP, CMP, THYR, FEPR, CBCA, 98722-0, 04909-8, 1967-11, 2283-12, 2275- #### [facility] ([id number]) [address], [address] [place], [place] [address]kT (U)6.5 [pH]Normal5.0-8.5PSelect Medical TriHealth Rehabilitation HospitalComment on above:Performed By: #### 01132-0, 2132-01, PINR, 19919-8, AHP, CMP, THYR, FEPR, CBCA, 53590-3, 98443-4, 1967-11, 2283-12, 2275-08 #### [facility] ([id number]) [address], [address] [place], [place] [address]Monjqbz Ql (U)30 mg/dLAbnormalNEGProCommunity Memorial Hospital Comment on above:Performed By: #### 77385-7, 9, PINR, 19774-0, AHP, CMP, THYR, FEPR, CBCA, 68363-5, 70323-2, 1967-11, 2283-12, 2275-08 #### [facility] ([id number]) [address], [address] [place], [place] [address]C.B.PPKLQ507 /hpfHigh0-5PSelect Medical TriHealth Rehabilitation HospitalComment on above:Performed By: #### 40519-7, 2132-9, PINR, 42157-4, AHP, CMP, THYR, FEPR, CBCA, 34371-1, 70448-6, 1967-11, 2283-12, 2275- #### [facility] ([id number]) [address], [address] [place], [place] [address]Bjixdgtj gravity (U) [Rel density]1.721Cbohuv8.003-1.035 [facility] Hospital - ColumbusCommarshfield medical center on above:Performed By: #### 65095-7, 9, PINR, 40613-4, AHP, CMP, THYR, FEPR, CBCA, 65773-2, 41385-6, 1967-11, 2283-12, 2275-08 #### [facility] ([id number]) [address], [address] [place], [place] [address]GLCCQVTUWTYRIXJycznlLWKKLSipWnrjby [facility] ColumbusComment on above:Performed By: #### 23942-8, 2132-01, PINR, 08888-7, AHP, CMP, THYR, FEPR, CBCA, 56027-6, 87636-5, 1967-11, 2283-12, 2275-08 #### [facility] ([id number]) [address], [address] [place], [place] [address]Pusrohpvamhp (U) [Mass/Vol]mg/dLNormal<1.1PSelect Medical TriHealth Rehabilitation HospitalCommarshfield medical center on above:Performed By: #### 41884-1, 9, PINR, 16788-7, AHP, CMP, THYR, FEPR, CBCA, 83373-6, 11876-5, 1967-11, 2283-12, 2275-08 #### [facility] ([id number]) [address], [address] [place], [place] [address]G.B.CELLS2 /hpfNormal0-5PSelect Medical TriHealth Rehabilitation HospitalCommarshfield medical center on above:Performed By: #### 90938-7, 2132-9, PINR, 27683-5, AHP, CMP, THYR, FEPR, CBCA, 70624-2, 81678-6, 1967-11, 8, 2275- #### [facility] ([id number]) [address], [address] [place], [place] [address]QVTKN CULTUREon 62-29-5679Fcwpeesy identified Cx Nom (U)CULTURE RESULTS NO GROWTH AT <1000 CFU/mLNormalRegional Medical CenterComment on above: Performed By: #### 13147-4, 9, PINR, 86234-0, AHP, CMP, THYR, FEPR, CBCA, 37575-1, 53369-0, 1967-11, 2283-12, 2275-08 #### [facility] ([id number]) [address], [address] [place], [place] [address]Muuruyjzhydg 82-07-4940Ddbksmsyd Ql (U)NegativeNegative^Negative [facility]ed[facility] Health SystemColor (U)YELLOWYELLOW^YELLOWPremier Health Atrium [facility] Health [facility] Glucose (U) [Mass/Vol]NegativeNegative^Negative mg/dLKettering Health Hamilton System Hemoglobin Auto test strip Ql (U)LargeAbnormalNegative^NegativeGeorgetown Behavioral Hospitalca Health SystemInterpretation and review of laboratory resultsAbnormalPremier Health Atrium Medical Center Health SystemKetones (U) [Mass/Vol]TraceAbnormalNegative^Negative mg/dLKettering Health Hamilton SystemLeukocyte esterase Auto test strip Ql (U)NegativeNegative^Negative [facility] SystemMucus Ql (Urine sed)PRESENTAbnormalNONE^NONEPremier Health Atrium [facility] Center Health SystemNitrite Auto test strip Ql (U)NegativeNegative^NegativePorter Medical CenterMedica Health SystempH (U)6.5 [pH]5.0 - 8.5PCypress Pointe Surgical Hospital Health SystemProtein (U) [Mass/Vol]30 mg/dLAbnormalNegative^NegativeKettering Health Hamilton SystemRBC Auto (Urine sed) [#/Area]158HighPremier Health Atrium Medical Center Health SystemSpecific gravity Refractometry automated (U) [Rel density]1.0111.003 - 1.035Bellevue HospitalTurbidity Ql (U)CLEARCLEAR^CLEARBellevue HospitalUrobilinogen Qn (U)NINMercy Hospital South, formerly St. Anthony's Medical CenterWBC Auto (Urine sed) [#/Area]2PHaven Behavioral HealthcareVITAMIN B12on 81-72-9315Inrafgjkx (Vitamin B12) [Mass/Vol]pg/mLHigh 180-914PSelect Medical TriHealth Rehabilitation HospitalComment on above:Performed By: #### 23502-8, 2131-9, PINR, 51234-1, AHP, CMP, THYR, FEPR, CBCA, 80425-4, 71356-5, 1967-, 2283-12, 2275-08 #### [facility] ([id number]) [address], [address] [place], [place] [address]Rpxxfbw B12on 43-70-9316Ocueecjaj (Vitamin B12) [Mass/Vol]pg/mL Mfeo908 - 914 pg/mLBellevue HospitalaPTT Coag (PPP) [Time]on 06-07-2024 Interpretation and review of laboratory resultsAbnormalBellevue Hospital ProMSelect Medical [facility] - DublinaPTT Coag (Bld) [Time]52 kUpfp72-73NxbOyoxgpRegional Medical CenterComment on above:Performed By: #### 18538-4, 9, PINR, 27953-3, AHP, CMP, THYR, FEPR, CBCA, 17925-8, 79200-5, 1967-11, 2283-12, 2275-08 #### [facility] ([id number]) [address], [address] [place], [place] [address]pMHP Coag (Bld) [Time]37 cYvshut30-50UyqQsqudyRegional Medical Center Comment on above:Performed By: #### 27236-2, 2131-9, PINR, 50231-2, AHP, CMP, THYR, FEPR, CBCA, 87798-0, 99255-5, 1967-11, 2283-12, 2275- #### [facility] ([id number]) [address], [address] [place], [place] [address]HZ EXT VENOUS REFLUX MAUDE LMTDon [id number] [address] Vein Report Signed Patient: JOHNATHAN RODNEY MR#: [id number] : 1955 Acct:[id number] Age/Sex: 67 / M ADM Date: 07/13/23 Loc: VC Attending Dr: Shaikh Larry Thompson Ordering Physician: Shaikh Jay Juarez Date of Service: 07/13/23 Procedure(s): VC EXT Venous Reflux MAUDE LMTD Accession Number(s): [id number] cc: Shaikh Jay Juarez Patient Name: JOHNATHAN RODNEY MR#: [id number] : 1955 Exam Date: 07/13/2023 Ordering Doctor: [...] visualized throughout SSV. Compressibility: Normal Flow: Normal Channel Director: No perforators visualized. Tech Note: Thrombus visualized in SSV. No patent varicose veins visualized. CONCLUSION: 1. No appreciable abnormal vein dilation or reflux within the lower extremities. Dictated by: Brett Grier M.D. on 07/13/2023 at 14:12 Approved by: Brett Grier M.D. on 07/13/2023 at 14:28 Dictated By: Brett Grier M.D. Signed By: 07/13/23 1430 DD/ 1429 TD/TT: Baffle Installer:TBHRadiology, Radiologist, MD - 07/13/2023 [place] [address] Vein Report Signed Patient: JOHNATHAN RODNEY MR#: [id number] : 1955 Acct:[id number] Age/Sex: 67 / M ADM Date: 07/13/23 Loc: VC Attending Dr: Shaikh Larry Thompson Ordering Physician: Shaikh Jay Juarez Date of Service: 07/13/23 Procedure(s): VC EXT Venous Reflux MAUDE LMTD Accession Number(s): [id number] cc: Shaikh Jay Juarez Patient Name: JOHNATHAN RODNEY MR#: [id number] : 1955 Exam Date: 07/13/2023 Ordering Doctor: [...] visualized throughout SSV. Compressibility: Normal Flow: Normal Channel Director: No perforators visualized. Tech Note: Thrombus visualized in SSV. No patent varicose veins visualized. CONCLUSION: 1. No appreciable abnormal vein dilation or reflux within the lower extremities. Dictated by: Brett Grier M.D. on 07/13/2023 at 14:12 Approved by: Brett Grier M.D. on 07/13/2023 at 14:28 Dictated By: Brett Grier M.D. Signed By: 07/13/23 1430 DD/ 1429 TD/TT: Baffle Installer: [facility] CenterRadiology Study observation (narrative)[facility] Medical CenterVC EXT VENOUS REFLUX MAUDE LMTDOrdered By: Radiologist Radiology on [id number] Regional Medical Center Work Phone: [facility] COMPREHENSIVE [phone] [address] Vein Report Signed Patient: JOHNATHAN RODNEY MR#: [id number] : 1955 Acct:[id number] Age/Sex: 67 / M ADM Date: 07/13/23 Loc: Attending Dr: Shaikh Larry Thompson Ordering Physician: Shaikh Jay Juarez Date of Service: 07/13/23 Procedure(s): [facility] Accession Number(s): [id number] cc: Shaikh Jay Juarez Patient Name: JOHNATHAN RODNEY MR#: [id number] : 1955 Exam Date: 07/13/2023 Ordering Doctor: SHAIKH Ember JUAREZ . RADIOLOGY REPORT PROCEDURE: [facility] - OFFICE VISIT INITIAL COMPARISON: [...] Signed By: 07/13/23 1437 DD/ 1436 TD/TT: Baffle Installer:TBHRadiology, Radiologist, - 07/13/2023 [place] [address] Vein Report Signed Patient: JOHNATHAN RODNEY MR#: [id number] : 1955 Acct:[id number] Age/Sex: 67 / M ADM Date: 07/13/23 Loc: VC Attending Dr: Shaikh Larry Thompson Ordering Physician: Shaikh Jay Juarez Date of Service: 07/13/23 Procedure(s): VC Facility EST Comprehensive Accession Number(s): [id number] cc: Shaikh Jay Juarez Patient Name: JOHNATHAN RODNEY MR#: [id number] : 1955 Exam Date: 07/13/2023 Ordering Doctor: [...] Signed By: 07/13/23 1437 DD/ 35 TD/TT: Baffle Installer: [facility] Medical CenterRadiology Study observation (narrative)[facility] FACILITY EST COMPREHENSIVEOrdered By: Radiologist Radiology on [id number] Regional Medical Center Work Phone: aLL CBC WITH AUTO DIFFon [id number] ABSOLUTE AUTO0.1NOMS HealthcareBasophils/100 WBC (Bld)1.4 %0.2 - 2.0 %[facility] Eosinophils/100 WBC (Bld)1.6 %0.9 - 7.0 %[facility] Medical CenterErythrocyte distribution width (RBC) [Ratio]19.9 %High11.0 - 15.0 %[facility] Medical CenterHematocrit (Bld) [Volume fraction]39.1 %Low42.0 - 54.0 %[facility] Medical CenterHemoglobin (Bld) [Mass/Vol]11.6 g/dLLow14.0 - 18.0 g/dLNortheast Regional Medical CenterIMMATURE GRANULOCYTES ABS AUTO0.02NODoctors Hospital of SpringfieldImmature granulocytes/100 WBC (Bld)0.2 %0.0 - 0.5 %[facility] Medical CenterInterpretation and review of laboratory resultsAbnormalNortheast Regional Medical Center LYMPHOCYTES ABSOLUTE AUTO1.5NODoctors Hospital of SpringfieldLymphocytes/100 WBC (Bld)16.6 %Low 20.5 - 60.0 %[facility] DivisionH (RBC) [Entitic mass]23.7 pgLow25.9 - 34.0 pgNOCenterPointe HospitalHC (RBC) [Mass/Vol]29.7 g/dLLow29.9 - 35.2 g/dLHCA Midwest DivisionV (RBC) [Entitic vol]79.8 fLLow80.0 - 94.0 fLNortheast Regional Medical CenterMONOCYTES ABSOLUTE AUTO0.6NOMS HealthcareMonocytes/100 WBC (Bld)6.6 %1.7 - 12.0 %[facility] Healthcare NEUTROPHILS ABSOLUTE AUTO6.5NOMS HealthcareNeutrophils/100 WBC (Bld)73.6 %43.0 - 75.0 %[facility] HealthcarePlatelet mean volume (Bld) [Entitic vol]9.2 fLLow9.5 - 13.5 fLNODoctors Hospital of SpringfieldTBH EO #0.1NOMS HealthcareTBH [id number] [facility] Medical CenterTBH RBC4.90 NOMS [facility] Medical CenterTB WBC8.8NOIN HealthcareCLINISYNCNOMS HealthcareCULTURE URINEon 67-50-7966YCQQXMQ URINEIsolate 1 Escherichia coli >100,000 cfu/ml of [...] <=16 S F Trimethoprim/Sulfamethoxazole <=20 S FNormalThe [facility] Medical CenterComment on above:Performed By: #### URCX #### [facility] [address] [address] Rahul KarenCARDIAC LEONOR ADMITon 85-53-3897PY [Catalytic activity/Vol]116 U/L Ruuubw53-112Sqf [facility] CenterComment on above:Performed By: #### LIVER, BMP, CMADM, LIPA #### [facility] [address], [place] [address] Rahul KarenCK.MB [Mass/Vol]1.36 ng/mLNormal<=2.37The [facility] CenterComment on above:Performed By: #### LIVER, BMP, CMADM, LIPA #### [facility] [address], [place] [address] Rahul KarenINR Coag (Bld) [Relative time]SEE BELOWNormalThSelect Medical Specialty Hospital - [facility] Comment on above:Result Comment: <0.034 ng/ml NEGATIVE 0.034-0.119 INDETERMINATE 0.120 AMI CUT OFFPerformed By: #### LIVER, BMP, CMADM, LIPA #### [facility] [address] [place] [address] Rahul KrigwGJI447.0 ng/mLNormal<=121.0The [facility] CenterComment on above: Performed By: #### LIVER, BMP, CMADM, LIPA #### [facility] [address] [place] [address] Rahul KarenTROP<0.017Normal<=0.034The [facility] CenterComment on above: Performed By: #### LIVER, BMP, CMADM, LIPA #### [facility] [address] [place] [address] Rahul KarenCBC AUTO DIFFon 34-36-0915Jhqnixgwa (Bld) [#/Vol]0.1 103/ulNormal 0.0-0.1The [facility] CenterComment on above:Performed By: #### CBC #### [facility] [address] [place] [address] Rahul KarenBasophils/100 WBC (Bld)0.7 %Normal0.2-2.0The [facility] Comment on above:Performed By: #### CBC #### [facility] [address] [place] [address] Rahul KarenEosinophils (Bld) [#/Vol]0.0 103/ulNormal0.0-0.7The [facility] CenterComment on above:Performed By: #### CBC #### [facility] [address] [place] [address] Rahul KarenEosinophils/100 WBC (Bld)0.2 %Critically low0.9-7.0The [facility] CenterComment on above:Performed By: #### CBC #### [facility] [address] [place] [address] Rahul KarenErythrocyte distribution width (RBC) [Ratio]14.8 %Zgaqip32.0-15.0The [facility] CenterComment on above:Performed By: #### CBC #### [facility] [address] [place] [address] Rahul KarenHematocrit (Bld) [Volume fraction]52.1 %Fqlupf87.0-54.0The [facility] CenterComment on above:Performed By: #### CBC #### [facility] [address] [place] [address] Rahul KarenHemoglobin (Bld) [Mass/Vol]17.3 g/oZDmiqtq08.0-18.0The [facility] CenterComment on above:Performed By: #### CBC #### [facility] [address] [place] [address] Rahul KarenIG #0.10 10e3/ulCritically high0.00-0.03The [facility] CenterComment on above:Performed By: #### CBC #### [facility] [address] [place] [address] Rahul KarenIG %0.6 %Critically high0.0-0.5The [facility] CenterComment on above:Performed By: #### CBC #### [facility] [address] [place] [address] Rahul KarenLymphocytes (Bld) [#/Vol]1.9 103/ulNormal1.2-3.8The [facility] CenterComment on above:Performed By: #### CBC #### [facility] [address] [place] [address] Rahul KarenLymphocytes/100 WBC (Bld)11.5 %Critically low20.5-60.0The [facility] CenterComment on above:Performed By: #### CBC #### [facility] [address] [place] [address] Rahul KarenMANUAL DIFF REQNONormalThe [facility] CenterComment on above: Performed By: #### CBC #### [facility] [address] [place] [address] Rahul KarenMCH (RBC) [Entitic mass]30.0 vsTprzjo99.9-34.0The [facility] Comment on above:Performed By: #### CBC #### [facility] [address] [place] [address] Rahul KarenMCHC (RBC) [Mass/Vol]33.2 g/sSLnguut10.9-35.2The [facility] Comment on above:Performed By: #### CBC #### [facility] [address] [place] [address] Rahul KarenMCV (RBC) [Entitic vol]90.5 yNXxjcwn44.0-94.0The [facility] Comment on above:Performed By: #### CBC #### [facility] [address] [place] [address] Rahul KarenMonocytes (Bld) [#/Vol]1.2 103/ulCritically high0.3-0.8The [facility] CenterComment on above:Performed By: #### CBC #### [facility] [address] [place] [address] Rahul KarenMonocytes/100 WBC (Bld)7.0 %Normal1.7-12.0The [facility] Comment on above:Performed By: #### CBC #### [facility] [address] [place] [address] Rahul KarenNeutrophils (Bld) [#/Vol]13.3 103/ulCritically high1.4-6.5The [facility] CenterComment on above:Performed By: #### CBC #### [facility] [address] [place] [address] Rahul KarenNeutrophils/100 WBC (Bld)80.0 %Critically high43.0-75.0The [facility] CenterComment on above:Performed By: #### CBC #### [facility] [address] [place] [address] Rahul KarenPlatelet mean volume (Bld) [Entitic vol]9.9 fLNormal9.5-13.5The [facility] CenterComment on above:Performed By: #### CBC #### [facility] [address] [place] [address] Rahul KarenPlatelets (Bld) [#/Vol]366 103/tcSztyky812-417Wfe [facility] Comment on above:Performed By: #### CBC #### [facility] [address] [place] [address] Rahul KarenRBC (Bld) [#/Vol]5.76 106/ulNormal4.70-6.10The [facility] Comment on above:Performed By: #### CBC #### [facility] [address] [place] [address] Rahul KarenWBC (Bld) [#/Vol]16.6 103/ulCritically high4.0-11.0The [facility] CenterComment on above:Performed By: #### CBC #### [facility] [address] [place] [address] Rahul KarenER URINE PROFILEon 97-38-5679Ormywepti [Mass/Vol]MODERATENormal NEGATIVEThe [facility] CenterComment on above:Performed By: #### JANNY SINGLETON #### [facility] [address] [place] [address] Rahul KarenBLOODLARGENormalNEGATIVEMartin Memorial HospitalComment on above: Performed By: #### JANNY SINGLETON #### [facility] [address] [place] [address] Rahul KarenClarity (U)CLEARNormalThe [facility] CenterComment on above: Performed By: #### JANNY SINGLETON #### [facility] [address] [place] [address] Rahul KarenColor (U)DK. ORANGENormalYELLOWThe [facility] CenterComment on above:Performed By: #### JANNY SINGLETON #### [facility] [address] [place] [address] Rahul KarenERUAHDA micrscopic examination will be performed if indicated.Normal The [facility] CenterComment on above:Performed By: #### JANNY SINGLETON #### [facility] [address] [place] [address] Rahul KarenGlucose [Mass/Vol]NegativeNormalNEGATIVESamaritan North Health Center HospitalComment on above:Performed By: #### JANNY SINGLETON #### [facility] [address] [place] [address] Rahul KarenKetones Ql (U)TRACENormalNEGATIVESamaritan North Health Center HospitalComment on above:Performed By: #### JANNY SINGLETON #### [facility] [address] [place] [address] Rahul KarenNitrite Ql (U)PositiveNormalNEGATIVESamaritan North Health Center HospitalComment on above:Performed By: #### JANNY SINGLETON #### [facility] [address] [place] [address] Rahul KarenpH (Bld)6.3Ijdarp4-1LahMartin Memorial HospitalComment on above:Performed By: #### JANNY SINGLETON #### [facility] [address] [place] [address] Rahul KarenProtein (U) [Mass/Vol]mg/dLNormSamaritan Hospital HospitalComment on above:Performed By: #### JANNY SINGLETON #### [facility] [address] [place] [address] Rahul KarenSPEC GRAVITY1.554Vcbqzv4.005-<=1.025Martin Memorial HospitalComment on above:Performed By: #### JANNY SINGLETON #### [facility] [address] [place] [address] Rahul KarenUR MICRO INDINDICATEDNoNewark HospitalComment on above: Performed By: #### JANNY SINGLETON #### [facility] [address] [place] [address] Rahul KarenUrobilinogen Qn (U)2.0 EU/dlNoNewark HospitalComment on above:Performed By: #### JANNY SINGLETON #### [facility] [address] [place] [address] Rahul KarenWBC (Bld) [#/Vol]SMALLNormalNEGATIVEThe [facility] CenterComment on above:Performed By: #### ERURJAMESRO #### [facility] [address] [place] [address] Rahul KarenLIPASEon 58-87-4797Fwahej [Catalytic activity/Vol]160.0 U/LNormal 23.0-300.0The [facility] CenterComment on above:Performed By: #### LIVER, BMP, CMADM, LIPA #### [facility] [address] [place] [address] Rahul KarenLIVER PROFILEon 79-84-8424Yfbiggw [Mass/Vol]3.8 g/dLNormal3.5-5.0The [facility] CenterComment on above:Performed By: #### LIVER, BMP, CMADM, LIPA #### [facility] [address] [place] [address] Rahul KarenAlbumin/Globulin [Mass ratio]0.7 {ratio}NormalMartin Memorial Hospital Comment on above:Performed By: #### LIVER, BMP, CMADM, LIPA #### [facility] [address] [place] [address] Rahul KarenALP [Catalytic activity/Vol]84 U/REkgenl35-028Qur [facility] Comment on above:Performed By: #### LIVER, BMP, CMADM, LIPA #### [facility] [address] [place] [address] Rahul KarenALT [Catalytic activity/Vol]51 U/RFinnkg22-70Zya [facility] Comment on above:Performed By: #### LIVER, BMP, CMADM, LIPA #### [facility] [address] [place] [address] Rahul KarenAST [Catalytic activity/Vol]22 U/LCsfkup41-50Xdx [facility] Comment on above:Performed By: #### LIVER, BMP, CMADM, LIPA #### [facility] [address] [place] [address] Rahul KarenBILI, CONJUGATED0.3 mg/dLNormal0.0-0.3The [facility] CenterComment on above:Performed By: #### LIVER, BMP, CMADM, LIPA #### [facility] [address] [address] Rahul KarenBilirubin Ql (U)1.2 mg/dLNormal0.2-1.3The [facility] CenterComment on above:Performed By: #### LIVER, BMP, CMADM, LIPA #### [facility] [address] [address] Rahul KarenGlobulin (S) [Mass/Vol]5.3 g/dLNormalThe [facility] CenterComment on above:Performed By: #### LIVER, BMP, CMADM, LIPA #### [facility] [address] [place] [address] Rahul KarenProtein [Mass/Vol]9.1 g/dLCritically high6.1-8.2The [facility] CenterComment on above:Performed By: #### LIVER, BMP, CMADM, LIPA #### [facility] [address] [place] [address] Rahul KarenPROF CHEM 8 (BAS METB)on 76-69-5648Pqhka gap [Moles/Vol]13.0 mmol/L NormalThe White Hospitalment on above:Performed By: #### LIVER, BMP, CMADM, LIPA #### [facility] [address] [place] [address] Rahul KarenCalcium [Mass/Vol]8.5 mg/dLNormal8.4-10.2The [facility] Comment on above:Performed By: #### LIVER, BMP, CMADM, LIPA #### [facility] [address] [place] [address] Rahul KarenChloride [Moles/Vol]96 mmol/LCritically tiy69-012Lug White Hospitalment on above:Performed By: #### LIVER, BMP, CMADM, LIPA #### [facility] [address] [place] [address] Rahul KarenCO2 [Moles/Vol]31.0 mmol/LCritically high22.0-30.0The White Hospitalment on above:Performed By: #### LIVER, BMP, CMADM, LIPA #### [facility] [address] [place] [address] Rahul KarenCreatinine [Mass/Vol]1.53 mg/dLCritically high0.66-1.25The [facility] CenterComment on above:Performed By: #### LIVER, BMP, CMADM, LIPA #### [facility] [address] [place] [address] Rahul KarenEGFR-AF EAORGRHR57 mL/min/1.05i0Ayfcpyeibd low>=60The [facility] CenterComment on above:Performed By: #### LIVER, BMP, CMADM, LIPA #### [facility] [address] [place] [address] Rahul KarenEGFR-NON AF CZCJEMWJ40 mL/min/1.12m6Cvlilgedab low>=60The [facility] CenterComment on above:Performed By: #### LIVER, BMP, CMADM, LIPA #### [facility] [address] [place] [address] Rahul KarenGlucose [Mass/Vol]135 mg/dLCritically nkax21-554Yhu [facility] CenterComment on above:Performed By: #### LIVER, BMP, CMADM, LIPA #### [facility] [address] [place] [address] Rahul KarenPotassium [Moles/Vol]3.0 mmol/LCritically low3.4-5.0The White Hospitalment on above:Performed By: #### LIVER, BMP, CMADM, LIPA #### [facility] [address] [place] [address] Rahul KarenSodium [Moles/Vol]137 mmol/YFzddel037-109Woa [facility] Comment on above:Performed By: #### LIVER, BMP, CMADM, LIPA #### [facility] [address] [place] [address] Rahul KarenUrea nitrogen [Mass/Vol]14.0 mg/dLNormal9.0-20.0The [facility] HospitalComment on above:Performed By: #### LIVER, BMP, CMADM, LIPA #### [facility] [address] [address] Rahul KarenUrea nitrogen/Creatinine [Mass ratio]9.2 mg/mgNoNorwalk Memorial Hospital on above:Performed By: #### LIVER, BMP, CMADM, LIPA #### [facility] [address] [address] Rahul KarenPROTIMEon 31-59-6882DBA Coag (PPP) [Relative time]1.14 {INR}Normal The [facility] on above:Performed By: #### PT, PTT #### [facility] [address] [place] [address] Rahul KarenPT Coag (PPP) [Time]PLEASE NOTE: NORMAL RANGE CHANGE 01-23-2014 DUE TO REAGENT LOT CHANGENoNorwalk Memorial Hospital on above:Performed By: #### PT, PTT #### [facility] [address] [place] [address] Rahul KarenPT Coag (PPP) [Time]11.8 sCritically high9.0-11.6The [facility] on above:Performed By: #### PT, PTT #### [facility] [address] [place] [address] Rahul KarenPT Coag (PPP) [Time]SEE BELOWNoNorwalk Memorial Hospital on above:Result Comment: DESIRED INR: 2.0 - 3.0 CONDITIONS NOT LISTED BELOW 2.5 - 3.5 FOR PROSTHETIC HEART VALVE REPLACEMENT 2.5 - 3.5 RECURRENT THROMBOSIS Performed By: #### PT, PTT #### [facility] [address] [place] [address] Rahul KarenPTTon 38-58-4532pSQR Coag (Bld) [Time]35.0 gKrdoit97.3-36.2The [facility] on above:Performed By: #### PT, PTT #### [facility] [address] [place] [address] Rahul KarenaPTT Coag (Bld) [Time]PLEASE NOTE: NORMAL RANGE CHANGE 04-01-2015 DUE TO REAGENT LOT CHANGETriHealth Bethesda North HospitalComment on above:Performed By: #### PT, PTT #### [facility] [address] [place] [address] Rahul KarenURINE MICROSCOPIC ONLYon 82-85-4637Zmwkyeed LM.HPF (Urine sed) [#/Area]MODERATENormalNONE SEENMartin Memorial HospitalComment on above:Performed By: #### JANNY SINGLETON #### [facility] [address] [place] [address] Rahul KarenCASTNONE SEENGardenaNONE [facility] HospitalCommarshfield medical center on above: Performed By: #### JANNY SINGLETON #### [facility] [address] [place] [address] Rahul KarenCrystals LM Nom (Urine sed)NONE SEENrmalNONE SEENMartin Memorial HospitalComment on above:Performed By: #### JAMES SINGLETONRO #### [facility] [address] [place] [address] Rahul KarenCULTUREINDICATEDTriHealth Bethesda North HospitalComment on above: Performed By: #### JANNY SINGLETON #### [facility] [address] [place] [address] Rahul KarenEpithelial cells LM.HPF (Urine sed) [#/Area]RARETriHealth Bethesda North HospitalCommarshfield medical center on above:Performed By: #### JAMES SINGLETONRO #### [facility] [address] [place] [address] Rahul KarenMUCOUSNONE SEENNormalNONE [facility] HospitalCommarshfield medical center on above: Performed By: #### JAMES SINGLETONRO #### [facility] [address] [place] [address] Rahul KarenRBC (U) [#/Vol]38-52Kpigli1-9YazMartin Memorial HospitalComment on above: Performed By: #### JAMES SINGLETONRO #### [facility] [address] [place] [address] Rahul NolanWBC (Bld) [#/Vol]>100NormalNONE SEENThe [facility] CenterComment on above:Performed By: #### JANNY SINGLETON #### [facility] [address] [id number] Rahul Nolan Vital Signs Date TimeVital SignValuePerforming JdqwbjoylSweomiyf13-13-4555 09:15-0500Blood Pressure LocationJENNIFER CHARLINE [facility]02-18-2025 09:15-0500Body hviusdeovew65.6 [degF]KIKIGERARDO OLIVIER [facility]02-18-2025 09:15-0500Diastolic blood bzohoqap72 mm[Hg]KIKI CHARLINE [facility]02-18-2025 09:15-0500Heart rate70 /minJENNIFER CHARLINE [facility]02-18-2025 09:15-0500Respiratory rate16 /minJENNIFER CHARLINE [facility]02-18-2025 09:15-0500Systolic blood frxkbysn360 mm[Hg]KIKI OLIVIER [facility]02-05-2025 11:46-0500Body epalfdyimuz28.49 [degF]Tabatha León MD Work Phone: [facility]02-05-2025 11:46-0500Diastolic blood mm[Hg]Tabatha León MD Work Phone: [facility]02-05-2025 11:46-0500Heart rate 82 /minFrcha León MD Work Phone: [facility]02-05-2025 11:46-0500 Respiratory rate16 /minTabatha León MD Work Phone: [facility]-2025 11:46-0631QfW1% (BldA) [Mass fraction]100 %Tabatha León MD Work Phone: [facility]02-05-2025 11:46-0500Systolic blood hxzlthax348 mm[Hg]Tabatha León MD Work Phone: [facility]02-03-2025 04:40-0500Body mass index (BMI) [Ratio]18.81 kg/s4QznxfjaTabatha León MD Work Phone: [facility]02-03-2025 04:40-0500Body ynpbis67.9 kgTabatha León MD Work Phone: [facility] Center[facility]FM[facility]ron01-31-2025 09:25-0500Body noupth653.9 cmTabatha León MD Work Phone: [facility] HospitalM[facility] Communications Encounters Encounter DateEncounter TypeCare ProviderFacilityStart: 93-76-9579dsvqqohsmh Shanthi X OrzechFacility:EU [place]kyStart: 03-05-2025 End: 13-20-4685zrtseoxjwdAM DONAL URIARTE-AMANKRAFacility:EU [place]Start: 03-05-2025 End: 34-54-5697Gdfijyy encounter procedureKPETRA URIARTE-DAYANARARA [facility] Start: 02-21-2025 End: 26-63-0296gooszfqlyqTV DONAL OAKLEYAH-AMANKRAFacility:EU [place]Start: 02-21-2025 End: 42-81-7658Zjfdnbe encounter procedureKPETRA URIARTE-AMANK [facility] Start: 11-20-2024 End: 94-59-7040rncvxgrimrScbvzgk [facility] Work Phone: Start: 11-20-2024 End: 52-92-9934Cakckllf ReferredRamon Wilson MD-LAB [facility] Start: 10-21-2024 End: 92-05-9883kpqecvkfywNDSUGWNO E PERRYFacility:EU BellevueStart: 10-21-2024 End: 83-26-2866Xkemgng encounter procedureJENNIFER E CHARLINE [facility] start: 94-02-5749shxqdogakbJK DONAL OAKLEYAH-AMANKRA Facility:EU [place]Start: 09-06-2024 End: 13-14-4878wtfnioenvhJF DONAL REARDONANSAH-AMANKRAFacility:EU [place]Start: 08-30-2024 End: 26-33-2023fqotjfignoAZSBQWRS E PERRYFacility:EU [place]sequencesevueStart: 07-19-2024 End: 03-08-4331njfpgsmlmuFB DONAL CARONANSAH-AMANKRAFacility:EU [place]Start: 06-25-2024 End: 08-83-6855zztfsvhgxfVBZSSJVO E PERRYFacility:EU [place] ConsequencesevueStart: 06-25-2024 End: 01-81-2616Ozqpbts encounter procedureJENNIFER E CHARLINE [facility] start: 06-08-2024 End: 06-47-5255Jwxrbmcfi encounterHeather Dima Shelton APRN-KETTLE GIRL Work Phone: [facility] HealthcareStart: 06-07-2024 End: 32-10-7956Dibwnjyaqd and management of inpatientMatthew Philippe MD Work Phone: [facility] AcuteStart: 09-48-6543iypkobbqzpXKORACGLZMid [facility] Start: 06-06-2024 End: 70-26-7292Pottxfapj department patient visitFreeman Regional Health Services Ambulatory PPGStart: 12-05-2023 End: 33-82-0691zpvmecugycYQFIVD FAWWAJULIANot AvailableStart: 07-13-2023 End: 99-31-9721Uodtvfqft Result EncounterSmira Juarez MD Work Phone: noms External Department UnsolicitedStart: 07-13-2023 End: 52-67-9408Zvchdkjso Result EncounterSmira Juarez MD Work Phone: noms External Department UnsolicitedStart: 06-28-2023 End: 36-96-7369ywavfdzgfzHUZJLA FAWWAJULIANot AvailableStart: 74-44-1771Zmgxskpfd Result EncounterSmira Juarez MD Work Phone: noms External Department UnsolicitedStart: 06-22-2023 Clinisync Result EncounterSmira Juarez MD Work Phone: noms External Department UnsolicitedStart: 05-24-2023 End: 06-64-0052lgiageeoemMVSXWH FAWWADNot AvailableStart: 12-14-2018 End: 98-98-4319Rkgvpgd encounter procedureDOCTOR MISCFacility:H1 Procedures DateProcedureProcedure DetailPerforming ClinicianStart: 17-43-8236Aqdjm count complete auto&auto difrntl wbcAnia Staunton DO Work Phone: Start: 22-86-6569Eqzdyknyv serum plasma/whole blood Tabatha León MD Work Phone: Start: 86-74-4492IZUMUSUWISO CARE CONSULTAureliano Garduno DO Work Phone: Start: 63-37-1890Dfemerfbrwqmj metabolic panel Roseline Reyez MD Work Phone: Start: 70-04-6005Uwyvm metabolic panel calcium total Demetriasarmad Keller DO Work Phone: Start: 78-06-2182Sosavyk function panelAnia Krishna DO Work Phone: [phone]: 46-99-7384Soo brain brain stem w/o w/contrast materialRochelle Llamas MD Work Phone: Start: 92-51-0473Ptfshumff serum plasma/whole blood Roseline Reyez MD Work Phone: Start: 42-15-5221Uhh routine ecg w/least 12 lds trcg only w/o i&rTeradha Reyez MD Work Phone: Start: 20-50-7195Cytrv metabolic panel calcium total Roseline Reyez MD Work Phone: [phone]: 63-45-4821Eoglepkum serum plasma/whole blood Roseline Reyez MD Work Phone: Start: 17-15-8969PCHJXLOXXVT CARE CONSULTAureliano Garduno DO Work Phone: Start: 71-19-7509No head/brain w/o contrast material Will Renee DEPARTMENT STORE DOOR GREETER-[employer]IR[employer] Work Phone: Start: 47-38-75135d rendering w/interp & postprocess supervisionTeradha Reyez MD Work Phone: [phone]: 39-72-5577Olamzimmkesjxt time partial plasma/whole bloodRoseline Reyez MD Work Phone: Start: 54-19-7143Tgqdz metabolic panel calcium total Roseline Reyez MD Work Phone: [phone]: 26-88-7031Fgulu panelTeradha Reyez MD Work Phone: Start: 38-61-12697c rendering w/interp & postprocess supervisionVito Kurtz PA-C Work Phone: [phone]: 96-69-0493Dgbzn of magnesiumTeradha Reyez MD Work Phone: [phone]: 76-58-5212Jpmv bld gluc mntr dev cleared fda spec home Margarita Philippe MD Work Phone: [phone]: 76-78-9347Pel abdomen w/o contrast materialAnia Staunton DO Work Phone: Start: 10-36-5710Ip abdomen & pelvis w/o contrast materialMisty Dima GREENWOOD Work Phone: [phone]: 70-10-0134ZXPLwjwa Patel MD Work Phone: Start: 27-89-7621Qvqnfjg bacterial quanttative colony count urineEvleisa Garduno DO Work Phone: [phone]: 48-08-6006Wvcx tst prsmv instrmnt chem analyzers pr dateAureliano Garduno DO Work Phone: [phone]: 18-36-8688Mzcuq dip stick/tablet rgnt auto w/o microscopyEvleisa Garduno DO Work Phone: [phone]: 39-57-0102Rzfxk hepatitis panelAureliano aGrduno DO Work Phone: [phone]: 70-64-2838Aeagovudxocxc metabolic panelAureliano Garduno DO Work Phone: Start: 75-74-2747ZLWRNDZGWNW CARE CONSULTEvleisa Garduno DO Work Phone: [phone]: 65-12-4072JO FACILITY EST Evelin Juarez MD Work Phone: Start: 45-63-6643QA EXT VENOUS REFLUX MAUDE LMTFer Juarez MD Work Phone: Start: 25-08-3780MUS CBC WITH AUTO DIFFShaikh Larry MCCALL Work Phone: None (qualifier value)KIKI OLIVIER Plan of Treatment DateCare ActivityDetailAuthorStart: 08-54-0279Zjkci BMI ScreeningAdult BMI ScreeningProOhioHealth Southeastern Medical Centertart: 40-46-8392Xssqc cultureUniversity Hospitals Parma Medical Centertart: 23-05-5093Dwgmcjij identified in Urine by CultureUrine [facility] Hospitaltart: 16-81-8725Drxioraym vaccination Influenza VaccineBlue Ridge Regional Hospitaltart: 06-28-2023 End: 24-54-8717Qvyebiu encounter utltatmrx50/21/2024 1:30 PM EST Office Visit [facility] [address] [place] [address] Shaikh Juarez MD [address] [place] [address] [facility] IMStart: 08-72-4958Wcmhsiums vaccinationInfluenza Vaccine (#1)[facility] HealthcareStart: 53-70-7039Rcmzgommd aortic aneurysm screening Abdominal Aortic Aneurysm (AAA) ScreenProOhioHealth Southeastern Medical Centertart: 08-01-2019 Fall Risk ScreeningFall Risk ScreeningBlue Ridge Regional Hospitaltart: 2004 Administration of varicella zoster vaccineZoster (Shingles) Vaccine (1 of 2) [facility] SystemStart: 15-66-1435WYqA,Tdap and Td Vaccines (1 - Tdap) DTaP,Tdap and Td Vaccines (1 - Tdap)[facility] SystemStart: 1966 Depression ScreeningDepression ScreeningKettering Health [facility] SystemStart: 1966 Tobacco ScreeningTobacco ScreeningBlue Ridge Regional Hospitaltart: 1960 Pneumococcal Vaccine: 65+ Years (1 - PCV)Pneumococcal Vaccine: 65+ Years (1 - PCV)[facility] HealthcareStart: 65-49-6888Ghdxqcouy for malignant neoplasm of colon [facility] End: 01-45-7625Ysrsc count hemoglobinHemoglobin Lab Routine Every Other Day for 3 Days starting 06/12/2024 until 06/14/2024, 1 completedGal[facility] Work Phone: Comment on above:Every Other Day for 3 Days starting 06/12/2024 until 06/14/2024, 1 completedCBC W Auto Differential panel - BloodCBC auto differential Lab Routine Lab max of 3 days, Daily, for lab use only until discontinued starting 06/10/2024, 3 completedGal[facility] Work Phone: Comment on above:Lab max of 3 days, Daily, for lab use only until discontinued starting 06/10/2024, 3 completedOxygen Therapy - Maintain SpO2: 90%; *SENIOR FORMULATION SCIENTIST Guidelines for O2: Yes; Document: \[email or web address].[email or web address]\epic\EPIC_Reference\Orders\Respiratory Care Guidelines\CPG Oxygen 2022.pdfOxygen Therapy - Maintain SpO2: 90%; *SENIOR FORMULATION SCIENTIST Guidelines for O2: Yes; Document: \[email or web address].[email or web address]\epic\EPIC_Reference\Orders\Respiratory Care Guidelines\CPG Oxygen 2022.pdf Respiratory Care Routine AsNeeded until discontinued starting 06/07/2024[facility] Medical CenterRFMicronComment on above:As Needed until discontinued starting 06/07/2024 End: 02-26-8358Pykqdneel [#/volume] in BloodPlatelet count Lab Routine Every Third Day for 3 Days starting 06/13/2024 until 06/13/2024[facility] Medical CenterRFMicron Comment on above:Every Third Day for 3 Days starting 06/13/2024 until 06/13/2024 End: 36-60-5204Xymys oximetry, spot On current oxygen flowPulse oximetry, spot On current oxygen flow Respiratory Care Routine Once for 1 Occurrences starting 06/07/2024 until 06/07/2024[facility] Work Phone: Comment on above:Once for 1 Occurrences starting 06/07/2024 until 06/07/2024Respiratory Care consult *SENIOR FORMULATION SCIENTIST Guidelines for Resp Care Consult: Yes; Document: \[email or web address].org\ epic\EPIC_Reference\Orders\Respiratory Care Guidelines\CPG Consult 2020.pdf Respiratory Care consult *SENIOR FORMULATION SCIENTIST Guidelines for Resp Care Consult: Yes; Document: \phsi.[facility].org\epic\EPIC_Reference\Orders\Respiratory Care Guidelines\CPG Consult 2020.pdf Respiratory Care Routine Every 12 hour check until discontinued starting 06/07/2024, 4 completedProClay County Hospital Health SystemComment on above:Every 12 hour check until discontinued starting 06/07/2024, 4 completed Immunizations Immunization DateImmunizationNotesCare ZcuappaqSsqlmhex36-46-5483Lmlwhbdtp Vaccine, Quadrivalent, AdjuvantedHeather Nikita DEPARTMENT STORE DOOR GRE[employer]IR[employer] Work Phone: [facility] Eaigfe71-70-0786xkssxkawk virus vaccine, unspecified formulationSmira Juaerz MD Work Phone: [facility] Payers DatePayer CategoryPayerPolicy [id number] Health [id number] Care Other (unspecified)[place] [id number] [id number] Cross Blue ShieldBCBS Member Subscriber Plan / Payer (Effective 2019-Present) Name: Johnathan Rodney Relation to Subscriber: Spouse Name: TOANPB Date of : 1952 Address: [address] [place] [address] Payer ID: Not on file Type: Not on file Address: [address] [place] [id number] Health University Hospital Care - OtherUNC [facility] Member Subscriber Plan / Payer (Effective 2019-Present) Name: KARMEN RODNEY SR Relation to Subscriber: Spouse Name: PB RODNEY Date of : 1952 (Home) Address: [address] [place] [address] Payer ID: [id number] (NAIC) Type: Not on file Address: [address] [place] [id number]. UnknownBCBS BCBS [id number] 2019-Present [phone] [address] [place] [id number] 2020Medicare [id number] [id number] 2020 [id number] 2.840.1.501433.3.57[id number] 2.840.1.326742.3.57[id number] 2.840.1.124425.3.579.2.[id number] 2.16.840.1.902494.3.57[id number] 2.16840.1.456395.3.579.[id number] 2.16840.1.505139.3.579.[id number] 2.16840.1.878420.3.579.2.4[id number] 2.160.1.516617.3.579.2.[id number] 2.16840.1.422406.3.57[id number] 2.0.1.150450.3.579.2.0[id number] 2.840.1.159903.3.57[id number] 2.840.1.170896.3.57[id number] 2.0.1.224385.3.57[id number] 2.0.1.861572.3.579.2.[id number] 2.160.1.441993.3.57[id number] 2.16840.1.335463.3.57[id number] 2.16840.1.792999.3.57[id number] 2.16840.1.756358.3.579.[id number] 2.16.840.1.377752.3.579.2.727UnknownRegular [id number] pbk5xa4n-7owl-4464-[id number] 2.16.840.1.315408.3.579.2.531 Social History DateTypeDetailFacilityStart: 05-24-2023 End: 14-52-3560Uesfmgt smoking status NHISNever smoked tobaccoNOMS Healthcare Start: 05-24-2023 End: 24-56-0497Smokbtp use and exposureSmokeless tobacco non-userNOMS Healthcare Start: 64-71-5342Vpxpclm intakeLifetime non-drinker (finding)[facility] Start: 05-24-2023 End: 41-82-8142Jcjphgj of Social functionNOMS HealthcareStart: 05-24-2023 End: 09-93-7007Kriackn use panelNOMS HealthcareStart: 58-02-9113Npi Assigned At BirthNot on fileNOMS HealthcareStart: 02-23-2022 End: 82-21-0648Vvetuhu smoking status NHISEx-smokerProMedica Health System History of tobacco useCurrent smokerProMedica Health SystemStart: 06-07-2024 Alcoholic beverage intakeCurrent drinker of alcohol (finding)ProMedicCeDe Group SystemStart: 16-84-1295Vve the [employer], gas, oil, or water [employer] threatened to shut off services in your home in past 12MoPatient unable to answerProThe Hotel Barter Network Health SystemStart: 66-24-5601PjeCjvm (finding)[facility] Health SystemSexual OrientationExec[facility] start: 12-52-0232Qkc Assigned At Memorial Hospitaltart: 90-28-7143Gljqgnydc beverage intakeEx-drinker (finding)NOMS HealthcareNEGATED: Highlighted rowStart: NINFHistory of tobacco usePassive smokerNOMS Healthcare Goals DatePatient GoalDesired Activity/StatePersonal health goalComment on above: Evaluation of progress towards goal: Functional Status WdzgKzfnotyvwrDplzhrZtgvppzm10-80-1575Pijffnclut StatusN/AExecutive [facility]rology of [facility] Gmqhgidk29-77-2337Vqdtaun Health Questionnaire 2 item (PHQ-2) [Reported][facility] Mental Status DateAssessmentResultFaAscension Saint Clare's Hospital System Clinical Notes 06-07-2024 to 02-18-2025 Note Date & CpwpKudfWhpaaruc30-81-4611 Hospital Discharge instructions Follow Up Care 02/18/2025 13:29:19 With:RUSTY MCCALL, DONAL, KEERTHIL Address: When: Unknown [facility] [place] 822406-80-4442 NotePatient Education Urology Acute Urinary Retention, Male [...] these instructions at home: Medicines ??? Take ylri-jqg-pporeqf and prescription medicines only as told by [...] provider. Document Revised: 01/13/2021 Document Reviewed: 01/13/2021 [email or web address] Patient Education ? 2023 [employer].[facility] 06-26-2024 NotePatient Education Urology Benign Prostatic Hyperplasia [...] Follow these instructions at home: ??? Take lejs-mvt-agvqlql and prescription medicines only as told by [...] symptoms do not get (more content not included)...[facility]02-05-2025 Nurse Note* Shazia Haynes RN - 06/12/2024 1:50 PM EST Summary: discharge Patient transported to facility by daughter, patient VSS. IV and tele removed. Pt wheeled [facility] to [facility] car. [facility]02-05-2025 Nurse Note* Shazia Haynes RN - 06/12/2024 1:50 PM ESTSummary: discharge Patient transported to facility by daughter, patient VSS. IV and tele removed. Pt wheeled down to [facility] car. * Shazia Haynes RN - 06/11/2024 [...] it kept coiling and would not advance. [employer] messaged person real estate utilization officer for urology at 0521. Was not read, [...] At 2119 RN called Vito BENEDICTRLucas with [facility] Team G as primary care team. Stat head CT ordered. Neuro assessment and vitals completed per RN. No neuro changes. Patient still A&O X 4, just slow to say the complete year correctly. Primary updated on assessment and Kiki MANCUSO took patient to CT. - Meaghan Lam RN 06/07/24 9:49 PM documented in [facility] Plan of care note * Plan [...] at the bedside 7. Instruct patient/ patient veterans service representative about use of safety devices 8. Include patient/ patient veterans service representative in decisions related to safety Outcome: Progressing Note: Evaluation of progress towards goal: Patient free from injury, will continue to provide a clean environment, personal objects in reach, and a well light room Problem: Knowledge Deficit Goal: Patient/patient veterans service representative demonstrates understanding of disease process, [...] be free from fall Description: Interventions: 1. [place] to environment 2. Hourly rounds addressing the [...] non-skid footwear 11. Teach patient and patient veterans service representative to maintain environment for safety [...] (cane, walker) within reach 19. Request patient veterans service representative bring adaptive equipment/mobility aids from home or obtain and provide as needed 20. Consult pharmacy regarding effects of med's affecting mobility, cognition, and alternatives 21. Obtain physician order for PT if risk factors associated with mobility are present 22. Obtain physician order for OT as appropriate 23. Utilize diversional activities 24. Educate patient and patient veterans service representative how to maintain a safe environment during visitationtimes (notify nurse prior to leaving bedside) 25. Consider appropriateness of medical or non-medical concierge 26. Set up voiding schedule as appropriate (every 2 hours) Outcome: Progressing Note: Evaluation of progress towards goal: Patient free from injury, will continue to provide a clean environment, personal objects in reach, and a well light room [facility] BOARDZ Bodeks82-97-4413 Miscellaneous Notes* Plan of Care - Shazia [...] at the bedside 7. Instruct patient/ patient veterans service representative about use of safety devices 8. Include patient/ patient veterans service representative in decisions related to safety Outcome: Progressing Note: Evaluation of progress towards goal: Patient free from injury, will continue to provide a clean environment, personal objects in reach, and a well light room Problem: Knowledge Deficit Goal: Patient/patient veterans service representative demonstrates understanding of disease process, [...] Score of =/> 25 or indicated by [facility] Assessment Goal: Patient should be free from fall Description: Interventions: 1. [place] to environment 2. Hourly rounds addressing the [...] non-skid footwear 11. Teach patient and patient veterans service representative to maintain environment for safety [...] (cane, walker) within reach 19. Request patient veterans service representative bring adaptive equipment/mobility aids from home or obtain and provide as needed 20. Consult pharmacy regarding effects of med's affecting mobility, cognition, and alternatives 21. Obtain physician order for PT if risk factors associated with mobility are present 22. Obtain physician order for OT as appropriate 23. Utilize diversional activities 24. Educate patient and patient veterans service representative how to maintain a safe environment during visitationtimes (notify nurse prior to leaving bedside) 25. Consider appropriateness of medical or non-medical concierge 26. Set up voiding schedule as appropriate (every 2 hours) Outcome: Progressing Note: Evaluation of progress towards goal: Patient free from injury, will continue to provide a clean environment, personal objects in reach, and a well light room * Discharge Planning Note - MILLIE Call - 06/12/2024 11:21 AM EST DISCHARGE PLANNING NOTE [facility] accepted referral and [facility]. Social work contacted daughter to inform of above and daughter requested referral to [facility]. Social work sent referral and [facility] is accepting referral. Social work contacted daughter to inquire about NSF preference and she is interested in [facility]. Discharge written, CRF complete. [facility] notified of discharge and CRF sent. Daughter [...] Description: INTERVENTIONS: 1. Encourage patient or legal veterans service representative to report early pain and [...] per policy 9. Teach patient or legal veterans service representative interventions for comforting Outcome: Progressing [...] at the bedside 7. Instruct patient/ patient veterans service representative about use of safety devices 8. Include patient/ patient veterans service representative in decisions related to safety [...] hygiene technique. 7. Identify and instruct patient/patient veterans service representative in use of appropriate isolation precautionsfor identified infection/symptoms. 8. Provide and discuss with patient/patient veterans service representative on educational MDRO sheet. 9. Encourage and monitor nutritional status daily and consult cooker helper if indicated. 10. Implement neutropenic guidelines as needed. Outcome: Progressing Note: Evaluation of progress towards goal: Patient currently on IV antibiotics Problem: Knowledge Deficit Goal: Patient/patient veterans service representative demonstrates understanding of disease process, [...] Score of =/> 25 or indicated by [facility] Assessment Goal: Patient should be free from fall Description: Interventions: 1. [place] to environment 2. Hourly rounds addressing the [...] non-skid footwear 11. Teach patient and patient veterans service representative to maintain environment for safety [...] (cane, walker) within reach 19. Request patient veterans service representative bring adaptive equipment/mobility aids from home or obtain and provide as needed 20. Consult pharmacy regarding effects of med's affecting mobility, cognition, and alternatives 21. Obtain physician order for PT if risk factors associated with mobility are present 22. Obtain physician order for OT as appropriate 23. Utilize diversional activities 24. Educate patient and patient veterans service representative how to maintain a safe environment during visitationtimes (notify nurse prior to leaving bedside) 25. Consider appropriateness of medical or non-medical concierge 26. Set up voiding schedule as appropriate [...] at the bedside 7. Instruct patient/ patient veterans service representative about use of safety devices 8. Include patient/ patient veterans service representative in decisions related to safety [...] hygiene technique. 7. Identify and instruct patient/patient veterans service representative in use of appropriate isolation precautionsfor identified infection/symptoms. 8. Provide and discuss with patient/patient veterans service representative on educational MDRO sheet. 9. Encourage and monitor nutritional status daily and consult cooker helper if indicated. 10. Implement neutropenic guidelines as needed. Outcome: Progressing Note: Evaluation of progress towards goal: patient is being treated with IV ATB. Problem: Knowledge Deficit Goal: Patient/patient veterans service representative demonstrates understanding of disease process, [...] be free from fall Description: Interventions: 1. [place] to environment 2. Hourly rounds addressing the [...] non-skid footwear 11. Teach patient and patient veterans service representative to maintain environment for safety [...] (cane, walker) within reach 19. Request patient veterans service representative bring adaptive equipment/mobility aids from home or obtain and provide as needed 20. Consult pharmacy regarding effects of med's affecting mobility, cognition, and alternatives 21. Obtain physician order for PT if risk factors associated with mobility are present 22. Obtain physician order for OT as appropriate 23. Utilize diversional activities 24. Educate patient and patient veterans service representative how to maintain a safe environment during visitationtimes (notify nurse prior to leaving bedside) 25. Consider appropriateness of medical or non-medical concierge 26. Set up voiding schedule as appropriate [...] EST DISCHARGE PLANNING NOTE Referrals sent to [facility]/ [place], [place] (P# ; F# ) and to [facility] in [place] (P#: [phone]; F#: ) * Discharge Planning [...] patient and daughter are requesting referral to [facility] and [facility]. Social work task [facility] to send referral to above facilities- wait acceptance. Patient will not require precert for placement. CN will continue to follow and is available should any further needs arise. - MILLIE CALL 06/11/24 4:11 PM * PT/OT/STREAMING MEDIA SPECIALIST - Horacio Erickson PT - 06/11/2024 3:23 PM EST Physical Therapy Treatment Discharge Recommendations PT Recommendations: Detention Facility SNF/ECF Comments: due to decreased functional [...] mobility, pass Equipment: gait belt, RW, arenas Telemetry/Air Quality Chemist: Yes Oxygen Used: room air Other: High [...] Patient will perform bed mobility with Modified [place] Dates: Start: 06/09/24 Expected End: 06/23/24 Description: Goal Description: Disciplines: PT Problem: Gait Dates: Start: 06/09/24 Disciplines: PT Goal: Patient will perform gait with Modified [place] Dates: Start: 06/09/24 Expected End: 06/23/24 Description: [...] Goal: Patient will perform transfers with Modified [place] Dates: Start: 06/09/24 Expected End: 06/23/24 Description: Goal Description: Disciplines: PT Outcomes Date/Time User Outcome 06/11/24 151 Horacio Erickson PT Progressing Goal Note filed on 06/11/24 151 by Horacio Erickson PT Evaluation of progress towards goal: Physical Therapy Care Plan (Resolved) There are no resolved problems. Principal Problem: Acute encephalopathy * PT/OT/STREAMING MEDIA SPECIALIST - Ana Ventura OTR/Bartolome - 06/11/2024 2:41 PM EST Occupational Therapy Treatment Discharge Recommendations OT Recommendations : Detention Facility SNF/ECF Comments: Recommend SNF for continued [...] JAMEE Mccray Equipment: Gait belt, RW, arenas Telemetry/Air Quality Chemist: Yes Oxygen Used: Room air Other: High [...] Patient will perform bed mobility with Modified [place] Dates: Start: 06/09/24 Expected End: 07/07/24 Description: Goal Description: Disciplines: OT Problem: Cognition Dates: Start: 06/09/24 Disciplines: OT Goal: Patient's goal is: (specify details) Dates: Start: 06/09/24 Expected End: 07/07/24 Description: Pt will demonstrate good safety awareness 100% of the time Disciplines: OT Problem: Functional Mobility Dates: Start: 06/09/24 Disciplines: OT Goal: Patient will perform functional mobility with Modified [place] Dates: Start: 06/09/24 Expected End: 07/07/24 Description: Functional household distances Disciplines: OT Outcomes Date/Time User Outcome 06/11/24 1518 JERAMN Orr/Bartolome Progressing Goal Note filed on 06/11/24 [...] Goal: Patient will perform transfers with Modified [place] Dates: Start: 06/09/24 Expected End: 07/07/24 Description: [...] Description: INTERVENTIONS: 1. Encourage patient or legal veterans service representative to report early pain and [...] per policy 9. Teach patient or legal veterans service representative interventions for comforting Outcome: Progressing [...] at the bedside 7. Instruct patient/ patient veterans service representative about use of safety devices 8. Include patient/ patient veterans service representative in decisions related to safety [...] hygiene technique. 7. Identify and instruct patient/patient veterans service representative in use of appropriate isolation precautionsfor identified infection/symptoms. 8. Provide and discuss with patient/patient veterans service representative on educational MDRO sheet. 9. Encourage and monitor nutritional status daily and consult cooker helper if indicated. 10. Implement neutropenic guidelines as needed. Outcome: Progressing Note: Evaluation of progress towards goal: Patient currently on IV antibiotics Problem: Knowledge Deficit Goal: Patient/patient veterans service representative demonstrates understanding of disease process, [...] be free from fall Description: Interventions: 1. [place] to environment 2. Hourly rounds addressing the [...] non-skid footwear 11. Teach patient and patient veterans service representative to maintain environment for safety [...] (cane, walker) within reach 19. Request patient veterans service representative bring adaptive equipment/mobility aids from home or obtain and provide as needed 20. Consult pharmacy regarding effects of med's affecting mobility, cognition, and alternatives 21. Obtain physician order for PT if risk factors associated with mobility are present 22. Obtain physician order for OT as appropriate 23. Utilize diversional activities 24. Educate patient and patient veterans service representative how to maintain a safe environment during visitationtimes (notify nurse prior to leaving bedside) 25. Consider appropriateness of medical or non-medical concierge 26. Set up voiding schedule as appropriate [...] supplement as ordered 13. Collaborate with clinical cooker helper 14. Include patient/ patient's veterans service representative in decisions related to nutrition [...] Description: INTERVENTIONS: 1. Encourage patient or legal veterans service representative to report early pain and [...] per policy 9. Teach patient or legal veterans service representative interventions for comforting Outcome: Progressing [...] at the bedside 7. Instruct patient/ patient veterans service representative about use of safety devices 8. Include patient/ patient veterans service representative in decisions related to safety [...] hygiene technique. 7. Identify and instruct patient/patient veterans service representative in use of appropriate isolation precautionsfor identified infection/symptoms. 8. Provide and discuss with patient/patient veterans service representative on educational MDRO sheet. 9. Encourage and monitor nutritional status daily and consult cooker helper if indicated. 10. Implement neutropenic guidelines as needed. Outcome: Progressing Note: Evaluation of progress towards goal: Patient has remained free from infection during hospitalstay. Patient is afebrile and last WBC was 6.7. Will continue using standard precautions and monitoring for signs and symptoms of infection. Problem: Knowledge Deficit Goal: Patient/patient veterans service representative demonstrates understanding of disease process, [...] supplement as ordered 13. Collaborate with clinical cooker helper 14. Include patient/ patient's veterans service representative in decisions related to nutrition Outcome: Progressing Note: Evaluation of progress towards goal: Patient appears to have adequate nutritional intake. Problem: Moderate - High Risk Fall Score Description: Bust[place]ante Fall Score of =/> 25 or indicated by [facility] Assessment Goal: Patient should be free from fall Description: Interventions: 1. [place] to environment 2. Hourly rounds addressing the [...] non-skid footwear 11. Teach patient and patient veterans service representative to maintain environment for safety [...] (cane, walker) within reach 19. Request patient veterans service representative bring adaptive equipment/mobility aids from home or obtain and provide as needed 20. Consult pharmacy regarding effects of med's affecting mobility, cognition, and alternatives 21. Obtain physician order for PT if risk factors associated with mobility are present 22. Obtain physician order for OT as appropriate 23. Utilize diversional activities 24. Educate patient and patient veterans service representative how to maintain a safe environment during visitationtimes (notify nurse prior to leaving bedside) 25. Consider appropriateness of medical or non-medical concierge 26. Set up voiding schedule as appropriate [...] Description: INTERVENTIONS: 1. Encourage patient or legal veterans service representative to report early pain and [...] per policy 9. Teach patient or legal veterans service representative interventions for comforting Outcome: Progressing [...] at the bedside 7. Instruct patient/ patient veterans service representative about use of safety devices 8. Include patient/ patient veterans service representative in decisions related to safety [...] hygiene technique. 7. Identify and instruct patient/patient veterans service representative in use of appropriate isolation precautionsfor identified infection/symptoms. 8. Provide and discuss with patient/patient veterans service representative on educational MDRO sheet. 9. Encourage and monitor nutritional status daily and consult cooker helper if indicated. 10. Implement neutropenic guidelines as needed. Outcome: Progressing Note: Evaluation of progress towards goal: Header Dock assessed pt risk for infection in the beginning and throughout shift. Pt remains afebrile. Will continue to monitor. Problem: Knowledge Deficit Goal: Patient/patient veterans service representative demonstrates understanding of disease process, treatment plan,medications, and discharge instructions Description: INTERVENTIONS 1. Complete learning assessment and assess knowledge base 2. Provide teaching at level of understanding 3. Provide teaching via preferred learning method(s) Outcome: Progressing Note: Evaluation of progress towards goal: Header Dock educated pt on admission disease, medications, treatment, [...] supplement as ordered 13. Collaborate with clinical cooker helper 14. Include patient/ patient's veterans service representative in decisions related to nutrition [...] Score of =/> 25 or indicated by [facility] Assessment Goal: Patient should be free from fall Description: Interventions: 1. [place] to environment 2. Hourly rounds addressing the [...] non-skid footwear 11. Teach patient and patient veterans service representative to maintain environment for safety [...] (cane, walker) within reach 19. Request patient veterans service representative bring adaptive equipment/mobility aids from home or obtain and provide as needed 20. Consult pharmacy regarding effects of med's affecting mobility, cognition, and alternatives 21. Obtain physician order for PT if risk factors associated with mobility are present 22. Obtain physician order for OT as appropriate 23. Utilize diversional activities 24. Educate patient and patient veterans service representative how to maintain a safe environment during visitationtimes (notify nurse prior to leaving bedside) 25. Consider appropriateness of medical or non-medical concierge 26. Set up voiding schedule as appropriate (every 2 hours) Outcome: Progressing Note: Evaluation of progress towards goal: Header Dock assessed pt fall precautions in the beginning [...] Description: INTERVENTIONS: 1. Encourage patient or legal veterans service representative to report early pain and [...] per policy 9. Teach patient or legal veterans service representative interventions for comforting Outcome: Progressing [...] at the bedside 7. Instruct patient/ patient veterans service representative about use of safety devices 8. Include patient/ patient veterans service representative in decisions related to safety [...] hygiene technique. 7. Identify and instruct patient/patient veterans service representative in use of appropriate isolation precautionsfor identified infection/symptoms. 8. Provide and discuss with patient/patient veterans service representative on educational MDRO sheet. 9. Encourage and monitor nutritional status daily and consult cooker helper if indicated. 10. Implement neutropenic guidelines as [...] be free from fall Description: Interventions: 1. [place] to environment 2. Hourly rounds addressing the [...] non-skid footwear 11. Teach patient and patient veterans service representative to maintain environment for safety [...] (cane, walker) within reach 19. Request patient veterans service representative bring adaptive equipment/mobility aids from home or obtain and provide as needed 20. Consult pharmacy regarding effects of med's affecting mobility, cognition, and alternatives 21. Obtain physician order for PT if risk factors associated with mobility are present 22. Obtain physician order for OT as appropriate 23. Utilize diversional activities 24. Educate patient and patient veterans service representative how to maintain a safe environment during visitationtimes (notify nurse prior to leaving bedside) 25. Consider appropriateness of medical or non-medical concierge 26. Set up voiding schedule as appropriate [...] wax/wane with mentation. Q4 neuros checked * PT/OT/STREAMING MEDIA SPECIALIST - Ree Hinson OTR/Bartolome - 06/09/2024 12:07 PM EST Occupational Therapy Evaluation Discharge Recommendations OT Recommendations : Detention Facility SNF/ECF Comments: Recommend SNF for continued [...] History: Diagnosis Date Abnormal EKG Atrial fibrillation ([facility]) Back pain Bradycardia Chronic atrial fibrillation ([facility]) Hypertension Hypertensive heart disease without heart failure Hypokalemia Pure hypercholesterolemia Urinary tract infection 01/2019 seen by [facility] No past surgical history on [...] mobility guidelines Equipment: Gait belt, RW, arenas Telemetry/Air Quality Chemist: Yes Oxygen Used: Room air Other: High [...] Patient will perform bed mobility with Modified [place] Dates: Start: 06/09/24 Expected End: 07/07/24 Description: Goal Description: Disciplines: OT Problem: Cognition Dates: Start: 06/09/24 Disciplines: OT Goal: Patient's goal is: (specify details) Dates: Start: 06/09/24 Expected End: 07/07/24 Description: Pt will demonstrate good safety awareness 100% of the time Disciplines: OT Problem: Functional Mobility Dates: Start: 06/09/24 Disciplines: OT Goal: Patient will perform functional mobility with Modified [place] Dates: Start: 06/09/24 Expected End: 07/07/24 Description: [...] Goal: Patient will perform transfers with Modified [place] Dates: Start: 06/09/24 Expected End: 07/07/24 Description: Goal Description: Disciplines: OT Occupational Therapy Care Plan (Resolved) There are no resolved problems. Principal Problem: Acute encephalopathy * PT/OT/STREAMING MEDIA SPECIALIST - Sadie Sim PT - 06/09/2024 11:21 AM EST Physical Therapy Evaluation Discharge Recommendations PT Recommendations: Detention Facility SNF/ECF Comments: pt will need SNF [...] status decline resulting from admission 06/07/24 from [place] where he went with afib with RVR and altered mentalstatus. MRI brain without acute findings but chronic infarct post R frontal lobe. Neuro stroke consulted and recommended transfer to [facility]. Diagnosed with acute encphalopathy, afib with [...] hypercholesterolemia Urinary tract infection 01/2019 seen by [facility] No past surgical history on [...] to see Equipment: RW, gait belt, catheter Telemetry/Air Quality Chemist: Yes Oxygen Used: room air Other: pt [...] Patient will perform bed mobility with Modified [place] Dates: Start: 06/09/24 Expected End: 06/23/24 Description: Goal Description: Disciplines: PT Problem: Gait Dates: Start: 06/09/24 Disciplines: PT Goal: Patient will perform gait with Modified [place] Dates: Start: 06/09/24 Expected End: 06/23/24 Description: [...] Goal: Patient will perform transfers with Modified [place] Dates: Start: 06/09/24 Expected End: 06/23/24 Description: [...] at the bedside 7. Instruct patient/ patient veterans service representative about use of safety devices 8. Include patient/ patient veterans service representative in decisions related to safety Outcome: Progressing Note: Evaluation of progress towards goal: Patient free from injury, will continue to provide a clean environment, personal objects in reach, and a well light room Problem: Knowledge Deficit Goal: Patient/patient veterans service representative demonstrates understanding of disease process, [...] be free from fall Description: Interventions: 1. [place] to environment 2. Hourly rounds addressing the [...] non-skid footwear 11. Teach patient and patient veterans service representative to maintain environment for safety [...] (cane, walker) within reach 19. Request patient veterans service representative bring adaptive equipment/mobility aids from home or obtain and provide as needed 20. Consult pharmacy regarding effects of med's affecting mobility, cognition, and alternatives 21. Obtain physician order for PT if risk factors associated with mobility are present 22. Obtain physician order for OT as appropriate 23. Utilize diversional activities 24. Educate patient and patient veterans service representative how to maintain a safe environment during visitationtimes (notify nurse prior to leaving bedside) 25. Consider appropriateness of medical or non-medical concierge 26. Set up voiding schedule as appropriate (every 2 hours) Outcome: Progressing Note: Evaluation of progress towards goal: Patient free from injury, will continue to provide a clean environment, personal objects in reach, and a well light room * PT/OT/STREAMING MEDIA SPECIALIST - Will Doyle PT - 06/08/2024 11:04 [...] Description: INTERVENTIONS: 1. Encourage patient or legal veterans service representative to report early pain and [...] per policy 9. Teach patient or legal veterans service representative interventions for comforting Outcome: Progressing [...] at the bedside 7. Instruct patient/ patient veterans service representative about use of safety devices 8. Include patient/ patient veterans service representative in decisions related to safety [...] hygiene technique. 7. Identify and instruct patient/patient veterans service representative in use of appropriate isolation precautionsfor identified infection/symptoms. 8. Provide and discuss with patient/patient veterans service representative on educational MDRO sheet. 9. Encourage and monitor nutritional status daily and consult cooker helper if indicated. 10. Implement neutropenic guidelines as needed. Outcome: Progressing Note: Evaluation of progress towards goal: Patient has remained afebrile. WBC and vital signs monitored. Patient has not shown any additional signs of infection at this time. Problem: Knowledge Deficit Goal: Patient/patient veterans service representative demonstrates understanding of disease process, [...] Score of =/> 25 or indicated by [facility] Assessment Goal: Patient should be free from fall Description: Interventions: 1. [place] to environment 2. Hourly rounds addressing the [...] non-skid footwear 11. Teach patient and patient veterans service representative to maintain environment for safety [...] (cane, walker) within reach 19. Request patient veterans service representative bring adaptive equipment/mobility aids from home or obtain and provide as needed 20. Consult pharmacy regarding effects of med's affecting mobility, cognition, and alternatives 21. Obtain physician order for PT if risk factors associated with mobility are present 22. Obtain physician order for OT as appropriate 23. Utilize diversional activities 24. Educate patient and patient veterans service representative how to maintain a safe environment during visitationtimes (notify nurse prior to leaving bedside) 25. Consider appropriateness of medical or non-medical concierge 26. Set up voiding schedule as appropriate [...] about disease process, medications, and treatment plan. Header Dock to update patient throughout the shift regarding [...] at the bedside 7. Instruct patient/ patient veterans service representative about use of safety devices 8. Include patient/ patient veterans service representative in decisions related to safety Outcome: Progressing Note: Evaluation of progress towards goal: Patient free from injury, will continue to provide a clean environment, personal objects in reach, and a well light room Problem: Knowledge Deficit Goal: Patient/patient veterans service representative demonstrates understanding of disease process, [...] be free from fall Description: Interventions: 1. [place] to environment 2. Hourly rounds addressing the [...] non-skid footwear 11. Teach patient and patient veterans service representative to maintain environment for safety [...] (cane, walker) within reach 19. Request patient veterans service representative bring adaptive equipment/mobility aids from home or obtain and provide as needed 20. Consult pharmacy regarding effects of med's affecting mobility, cognition, and alternatives 21. Obtain physician order for PT if risk factors associated with mobility are present 22. Obtain physician order for OT as appropriate 23. Utilize diversional activities 24. Educate patient and patient veterans service representative how to maintain a safe environment during visitationtimes (notify nurse prior to leaving bedside) 25. Consider appropriateness of medical or non-medical concierge 26. 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 [...] food box at discharge. documented in this encounterGeorgetown Behavioral HospitalSocialize [facility] Institute Of [id number] Progress note* Discharge Planning Note - MILLIE Call - 06/12/2024 11:21 AM EST DISCHARGE PLANNING NOTE [facility] accepted referral and [facility] will not have a bed available. Social work contacted daughter to inform of above and daughter requested referral to [facility] and [facility]. [facility]. [facility] work contacted daughter to inquire about NSF preference and she is interested in [facility]. Discharge written, CRF complete. [facility] notified of discharge and CRF sent. Daughter will transport patient this afternoon to SNF. RN updated. HENS submitted. - MILLIE CALL 06/12/24 11:23 AM [facility]02-05-[facility]25 Hospital course Narrative* Tabatha León MD - 06/12/2024 11:06 AM EST Images from the original note were not included. [facility] Physicians Hospitalists Discharge Summary CONFIDENTIAL INFORMATION Patient's Name: Johnathan Rodney Date of : 1955 Age: 68 yrs Gender: male Date of service: 06/12/2024 PCP: Patient Care Team: [facility] as PCP - General (Family Medicine) DATE OF ADMISSION: 06/07/2024 DATE OF DISCHARGE: 06/12/2024 DISCHARGE DIAGNOSES: Principal Problem: Acute encephalopathy CONSULTANTS: Consulting Providers Provider Service Specialty Nicolas Wells MD Z Surgery General Surgery Catrina Marie MD -- Neurology Richardson Brandt DO -- Gastroenterology PCP: Patient Care Team: [facility] as PCP - General (Family Medicine) Hospital Course HPI Johnathan Rodney is a 68 y.o. male medical history significant for atrial fibrillation, hypertension, chronic systolic heart failure, history of alcohol use disorder, who presented to [facility] for evaluation of altered mentation. [...] transfer to [facility] for evaluation with potential lumbar puncture. Per [...] Your Medications These medications were sent to [facility]/pharmacy #[id number] - [place], [place] - [address] [facility] [address] [facility] [address] atorvastatin 40 mg tablet carvediloL 12.5 mg [...] special instructions. Follow up: Lizbeth Horne MD [address] [place], [place] [id number] Schedule an appointment as soon as possible for a visit in 2 week(s) to discuss urinary issues [address] [phone] Greater than 35 minutes were spent on discharging this patient. Electronically SIGNED by Licensed Independent Practitioner: Tabatha León MD [facility] Phys[facility] Hospitalists, Department of Internal [...] have escaped final proofreading documented in this encounterBellevue Hospital02-[facility]25 Plan of care note * Plan of Care - Kate Benson RN - 06/12/2024 12:49 AM EST Problem: Pain Goal: Patient goal is pain score less than 4, able to rest, and participant in treatment plan as appropriate Description: INTERVENTIONS: 1. Encourage patient or legal veterans service representative to report early pain and [...] per policy 9. Teach patient or legal veterans service representative interventions for comforting Outcome: Progressing [...] at the bedside 7. Instruct patient/ patient veterans service representative about use of safety devices 8. Include patient/ patient veterans service representative in decisions related to safety [...] hygiene technique. 7. Identify and instruct patient/patient veterans service representative in use of appropriate isolation precautionsfor identified infection/symptoms. 8. Provide and discuss with patient/patient veterans service representative on educational MDRO sheet. 9. Encourage and monitor nutritional status daily and consult cooker helper if indicated. 10. Implement neutropenic guidelines as needed. Outcome: Progressing Note: Evaluation of progress towards goal: Patient currently on IV antibiotics Problem: Knowledge Deficit Goal: Patient/patient veterans service representative demonstrates understanding of disease process, [...] Score of =/> 25 or indicated by [facility] Assessment Goal: Patient should be free from fall Description: Interventions: 1. [place] to environment 2. Hourly rounds addressing the [...] non-skid footwear 11. Teach patient and patient veterans service representative to maintain environment for safety [...] (cane, walker) within reach 19. Request patient veterans service representative bring adaptive equipment/mobility aids from home or obtain and provide as needed 20. Consult pharmacy regarding effects of med's affecting mobility, cognition, and alternatives 21. Obtain physician order for PT if risk factors associated with mobility are present 22. Obtain physician order for OT as appropriate 23. Utilize diversional activities 24. Educate patient and patient veterans service representative how to maintain a safe environment during visitationtimes (notify nurse prior to leaving bedside) 25. Consider appropriateness of medical or non-medical concierge 26. Set up voiding schedule as appropriate [...] of progress towards goal: Neuro status improving. [facility] Plan of care note* Plan of [...] at the bedside 7. Instruct patient/ patient veterans service representative about use of safety devices 8. Include patient/ patient veterans service representative in decisions related to safety [...] hygiene technique. 7. Identify and instruct patient/patient veterans service representative in use of appropriate isolation precautionsfor identified infection/symptoms. 8. Provide and discuss with patient/patient veterans service representative on educational MDRO sheet. 9. Encourage and monitor nutritional status daily and consult cooker helper if indicated. 10. Implement neutropenic guidelines as needed. Outcome: Progressing Note: Evaluation of progress towards goal: patient is being treated with IV ATB. Problem: Knowledge Deficit Goal: Patient/patient veterans service representative demonstrates understanding of disease process, [...] Score of =/> 25 or indicated by [facility] Assessment Goal: Patient should be free from fall Description: Interventions: 1. [place] to environment 2. Hourly rounds addressing the [...] non-skid footwear 11. Teach patient and patient veterans service representative to maintain environment for safety [...] (cane, walker) within reach 19. Request patient veterans service representative bring adaptive equipment/mobility aids from home or obtain and provide as needed 20. Consult pharmacy regarding effects of med's affecting mobility, cognition, and alternatives 21. Obtain physician order for PT if risk factors associated with mobility are present 22. Obtain physician order for OT as appropriate 23. Utilize diversional activities 24. Educate patient and patient veterans service representative how to maintain a safe environment during visitationtimes (notify nurse prior to leaving bedside) 25. Consider appropriateness of medical or non-medical concierge 26. Set up voiding schedule as appropriate [...] is improving- patient is alert and oriented [facility] [id number] Progress note* Discharge Planning Note - Keri Madrid - 06/11/2024 4:29 PM EST DISCHARGE PLANNING NOTE Referrals sent to [facility]/ [facility], [place], [place] (P# ; F# ) and to [facility] in [place] (P#: [phone]; F#: ) [facility] [id number] Progress note* Discharge Planning Note - MILLIE [...] arise. - MILLIE CALL 06/11/24 4:11 PM [facility]02-04-2025 Progress note* PT/OT/STREAMING MEDIA SPECIALIST - Horacio Erickson, PT - 06/11/2024 3:23 PM EST Physical Therapy Treatment Discharge Recommendations PT Recommendations: Detention Facility SNF/ECF Comments: due to decreased functional [...] mobility, pass Equipment: gait belt, RW, arenas Telemetry/Air Quality Chemist: Yes Oxygen Used: room air Other: High [...] Patient will perform bed mobility with Modified [place] Dates: Start: 06/09/24 Expected End: 06/23/24 Description: Goal Description: Disciplines: PT Problem: Gait Dates: Start: 06/09/24 Disciplines: PT Goal: Patient will perform gait with Modified [place] Dates: Start: 06/09/24 Expected End: 06/23/24 Description: [...] Goal: Patient will perform transfers with Modified [place] Dates: Start: 06/09/24 Expected End: 06/23/24 Description: Goal Description: Disciplines: PT Outcomes Date/Time User Outcome 06/11/241511 Horacio Erickson PT Progressing Goal Note filed on 06/11/24 151 by Horacio Erickson PT Evaluation of progress towards goal: Physical Therapy Care Plan (Resolved) There are no resolved problems. Principal Problem: Acute encephalopathy [facility]02-04-2025 Progress note* PT/OT/STREAMING MEDIA SPECIALIST - Ana Ventura OTR/L - 06/11/2024 2:41 PM EST Occupational Therapy Treatment Discharge Recommendations OT Recommendations : Detention Facility SNF/ECF Comments: Recommend SNF for continued [...] JAMEE Mccray Equipment: Gait belt, RW, arenas Telemetry/Air Quality Chemist: Yes Oxygen Used: Room air Other: High [...] Patient will perform bed mobility with Modified [place] Dates: Start: 06/09/24 Expected End: 07/07/24 Description: Goal Description: Disciplines: OT Problem: Cognition Dates: Start: 06/09/24 Disciplines: OT Goal: Patient's goal is: (specify details) Dates: Start: 06/09/24 Expected End: 07/07/24 Description: Pt will demonstrate good safety awareness 100% of the time Disciplines: OT Problem: Functional Mobility Dates: Start: 06/09/24 Disciplines: OT Goal: Patient will perform functional mobility with Modified [place] Dates: Start: 06/09/24 Expected End: 07/07/24 Description: [...] Goal: Patient will perform transfers with Modified [place] Dates: Start: 06/09/24 Expected End: 07/07/24 Description: Goal Description: Disciplines: OT Outcomes Date/Time User Outcome 06/11/241517 JERMAN Orr/Bartolome Progressing Goal Note filed on 06/11/241517 by CY Orr Evaluation of progress towards goal: Occupational Therapy Care Plan (Resolved) There are no resolved problems. Principal Problem: Acute encephalopathy [facility] Nurse Note* Shazia Haynes RN - 06/11/2024 2:31 PM ESTSummary: patient behavior Patient declined walking with RN and NA multiple times. Patient declined having food warmed up, RN provided box lunch for patient. Patient continues to talk down to staff. [facility] History of Present illness Narrative* Tabatha [...] or primary neurological disorders. Bertha Oakley MD Retort Pre Cooker Neurology/Neurophysiology [facility] brain without contrast Result Date: [...] appreciable flow related enhancement within the proximal Y2hcipuos possibly due to flow dynamics and tqcj-go-lcxuva technique as there appears to be normal contrast enhancement within the V4 segment on the MRA of the neck Basilar artery: Normal. psychiatric nursing assistant: The left MEMBER OF PARLIAMENT is normal. Diminished flow related enhancement within the distal right MEMBER OF PAR[employer]AMENT distribution likely sequelae of prior right MEMBER OF PAR[employer]ENT infarct. IMPRESSION: 1. Diminished flow related signal within the right MEMBER OF PARLIAMENT is likely chronic and related to known right chronic occipital infarct/encephalomalacia. 2. Diminished flow related enhancement within the proximal right vertebral artery is likely due to flow dynamics and gely-uq-yuxtpk technique is there is normal-appearing enhancement on [...] Correlate with symptoms. Sequelae of prior right MEMBER OF PARLIAMENT territory ischemia Finalized by Zac Lucia on [...] was made toensure accuracy; however, inadvertent computerized master welder errors may be present. * Eric Dejesus [...] Urology reconsulted for Arenas catheter placement. Eighteen [place] tip catheter placed without resistance with return [...] from the original note were not included. [facility] Neurology General Neurology Consultation Progress Note Consult Neurology Service: [phone] Primary Team: Howie Hospitalist Chief Concern and [...] for occult infection. Patient was [facility] further evaluation. Interval history: [...] history of alcohol use. PT OT, social services manager. Delirium precautions. No further inpatient neurology workup needed at this time, our service will sign off Marco A Reddy MD PGY-4, Neurology Resident [facility] 06/10/24 3:05 PM Staffed with: Dr. Bethea This patient is being followed by the Neurology Resident service. Contact attending directly during these hours: Monday to 7:30-8:30 A.M. to Monday 12-1:00 p.m. Primary Neurology service: [phone] Consult neurology service: [phone] Resident Stroke Service: [phone] If the patient belongs to the Stroke [...] agree with resident note. Guilherme Bethea MD Retort Pre Cooker of Neurology [facility] 06/10/24 * Roseline Reyez MD - 06/10/2024 8:33 AM EST Images from the original note were not included. [facility] PHYSICIANS HOSPITALIST PROGRESS NOTE 06/10/2024 [...] metoprolol (LOPRESSOR) IV, 5 mg, Q6H PRN xmkgbjot-jrpt-NP-calcium &mins, 1 tablet, Daily PRN potassium chloride, [...] Procedure Component Value Units Date/Time Urine culture [[id number]] Collected: 06/07/24 0751 Specimen: Urine Updated: 06/08/24 [...] appreciable flow related enhancement within the proximal X4lghljpu possibly due to flow dynamics and oxil-ft-vobmie technique as there appears to be normal contrast enhancement within the V4 segment on the MRA of the neck Basilar artery: Normal. psychiatric nursing assistant: The left MEMBER [employer] PAR[employer]AMENT is normal. Diminished flow related enhancement within the distal right MEMBER OF PARLIAMENT distribution likely sequelae of prior right MEMBER OF PARLIAMENT infarct. IMPRESSION: 1. Diminished flow related signal within the right MEMBER OF PARLIAMENT is likely chronic and related to known right chronic occipital infarct/encephalomalacia. 2. Diminished flow related enhancement within the proximal right vertebral artery is likely due to flow dynamics and bazc-hf-htwoke technique is there is normal-appearing enhancement on [...] Correlate with symptoms. Sequelae of prior right MEMBER OF PAR[employer]AMENT territory ischemia Finalized by Zac Lucia on [...] Electronically signed by: ROSELINE REYEZ MD, KRISTAL, [facility] 06/10/2024 2:29 PM Preferred contact method: #1. Epic chat #2. [facility]PH team pager Available from 7 am to 7 pm * Will Renee APRN-KETTLE GIRL - 06/09/2024 5:25 PM EST Images from the original note were not included. [facility] [address] [place] [address], [address] [place] [address] * NEUROSURGERY DAILY PROGRESS NOTE DATE:06/09/2024 PATIENT'S [...] Julio- [facility] Please contact via GILUPI first then can utilize Patient touch/VoceraEdge if needed 06/09/24 5:34 PM To find out which JAK is on for the day please go to Mobile Active Defense and use log in [employer] and search for PTH Neurosurgery (JAK and Phone Number is listed) NIRMALA Beebe 06/09/24 [id number] * Roseline Reyez MD - 06/09/2024 9:45 [...] metoprolol (LOPRESSOR) IV, 5 mg, Q6H PRN egmifaud-rkcs-UW-calcium &mins, 1 tablet, Daily PRN potassium chloride, [...] Procedure Component Value Units Date/Time Urine culture [[id number]] Collected: 06/07/24 0751 Specimen: Urine Updated: 06/08/24 [...] or primary neurological disorders. Bertha Oakley MD Retort Pre Cooker Neurology/Neurophysiology [facility] brain without contrast Result Date: [...] magnesium sulfate magnesium sulfate metoprolol (LOPRESSOR) IV ouspuyyr-veil-TB-calcium &mins potassium chloride OR potassium chloride OR [...] and marijuana use who was transferred to [facility] from OSH with AMS and hyperbilirubinemia. [...] General Surgery C 6a - 6p Pager: [phone] 6p - 6a Pager: [phone] Cosigned by Nicolas Wells MD at 06/09/2024 [...] General Surgery and Minimally Invasive Surgery [address] [facility] [address], [address] [place] [address] Office: * Marco A Reddy MD - 06/08/2024 5:51 PM EST Images from the original note were not included. [facility] Neurology General Neurology Consultation Progress Note Consult Neurology Service: [phone] Primary Team: [facility] Chief Concern and Reason for Consultation: Altered [...] for occult infection. Patient was transferred to [facility] for further evaluation. Interval history: [...] Marco A Reddy MD PGY-4, Neurology Resident [facility] 06/08/24 5:51 PM Staffed with: Dr. Bethea This patient is being followed by the Neurology Resident service. Contact attending directly during these hours: Monday to 7:30-8:30 A.M. to Monday 12-1:00 p.m. Primary Neurology service: [phone] Consult neurology service: [phone] Resident Stroke Service: [phone] If the patient belongs to the Stroke [...] LORazepam OR LORazepam magnesium sulfate magnesium sulfate lojiiwcs-jzvh-XI-calcium &mins potassium chloride OR potassium chloride OR [...] or primary neurological disorders. Bertha Oakley MD Retort Pre Cooker Neurology/Neurophysiology [facility] brain without contrast CT HEAD [...] and marijuana use who was transferred to [facility] from OSH with AMS and hyperbilirubinemia. [...] General Surgery C 6a - 6p Pager: [phone] 6p - 6a Pager: [phone] Cosigned by Nicolas Wells MD at 06/08/2024 [...] FACS General Surgery and Minimally Invasive Surgery [address] [place] [address], [address] [place] [address] Office: * Essence Shelton, DEPARTMENT STORE DOOR GREETER-KETTLE GIRL - 06/08/2024 10:31 AM EST [facility] Gastroenterology/Hepatology Progress Note IDENTIFYING DATA PATIENT: Johnathan [...] mg, PRN magnesium sulfate, 4,000 mg, PRN atywuzfm-rdnn-RL-calcium &mins, 1 tablet, Daily PRN potassium chloride, [...] use admitted with encephalopathy after presenting to [facility] with altered mental status and hallucinations. [...] standpoint. GI will sign off. NIRMALA Kennedy [facility] [address] [place], [place] [address] PH: [phone] NIRMALA Kuhn 06/08/24 1530 * Roseline Reyez MD - 06/08/2024 10:15 AM EST Images from the original note were not included. [facility] PHYSICIANS HOSPITALIST PROGRESS NOTE 06/08/2024 [...] for Arenas catheter. Alcohol use disorder- on [facility] protocol. Thiamine and folic acid. Marijuana and [...] mg, PRN magnesium sulfate, 4,000 mg, PRN qnrahzhu-uuzj-JH-calcium &mins, 1 tablet, Daily PRN potassium chloride, [...] Procedure Component Value Units Date/Time Urine culture [[id number]] Collected: 06/07/24 0751 Specimen: Urine Updated: 06/08/24812 [...] or primary neurological disorders. Bertha Oakley MD Retort Pre Cooker Neurology/Neurophysiology [facility] brain without contrast Result Date: [...] Preferred contact method: #1. Epic chat #2. [facility] team pager Available from 7 am to 7 pm * Corey Wade MD - 06/08/2024 9:41 AM EST Images from the original note were not included. Jr. Romero Gregor, M.D., Zac Jin M.D., Wilfred Lang M.D., Lizbeth Rader M.D., Melina Burks M.D., Tesfaye Bruno M.D., Sachin Cao M.D., Orlando Mora M.D, Florentino Ervni M.D. Hospital day: 1 Chief Complaint: Possible [...] from the original note were not included. [facility] Neurology General Neurology Consultation Progress Note Consult Neurology Service: [phone] Primary Team: [facility] Foundation[facility] Chief Concern and Reason for Consultation: Altered [...] occult infection. Patient was tra nsferred to [facility] for further evaluation. Overnight, no [...] light touch throughout. Cerebellar: Able to do efczfg-il-pvou bilaterally; normal coordination Gait and station: Deferred. [...] secondary to metabolic encephalopathy versus delirium versus RV DETAILER infection versus seizure. Remote right frontal and [...] Shavonne Holbrook MD PGY-2 Internal Medicine Resident [facility] 06/07/24 12:21 PM Staffed with: Dr. Marie This patient is being followed by the Neurology Resident service. Contact attending directly during these hours: Monday to 7:30-8:30 A.M. to Monday 12-1:00 p.m. Primary Neurology service: [phone] Consult neurology service: [phone] Resident Stroke Service: [phone] If the patient belongs to the Stroke [...] Garza RPH - 06/07/2024 6:12 AM EST [facility] Department of Pharmacy Pharmacist to Physician Communication The dose of metronidazole has been changed per the [facility] approved temporary dosing guidelines, due tothe drug continued drug shortage (adjusted from 500 mg IV every 8 hours to 500 mg IV every 12 hours). If you need additional information, please reach out to a pharmacist at [phone]. Thank you, Tatiana Garza ilya documented in this encounterBelle[facility] Hospital02-[facility] Plan of care note * Plan of Care - Kate Benson RN - 06/11/2024 2:52 AM EST Problem: Pain Goal: Patient goal is pain score less than 4, able to rest, and participant in treatment plan as appropriate Description: INTERVENTIONS: 1. Encourage patient or legal veterans service representative to report early pain and [...] per policy 9. Teach patient or legal veterans service representative interventions for comforting Outcome: Progressing [...] at the bedside 7. Instruct patient/ patient veterans service representative about use of safety devices 8. Include patient/ patient veterans service representative in decisions related to safety [...] hygiene technique. 7. Identify and instruct patient/patient veterans service representative in use of appropriate isolation precautionsfor identified infection/symptoms. 8. Provide and discuss with patient/patient veterans service representative on educational MDRO sheet. 9. Encourage and monitor nutritional status daily and consult cooker helper if indicated. 10. Implement neutropenic guidelines as needed. Outcome: Progressing Note: Evaluation of progress towards goal: Patient currently on IV antibiotics Problem: Knowledge Deficit Goal: Patient/patient veterans service representative demonstrates understanding of disease process, [...] Score of =/> 25 or indicated by [facility] Assessment Goal: Patient should be free from fall Description: Interventions: 1. [place] to environment 2. Hourly rounds addressing the [...] non-skid footwear 11. Teach patient and patient veterans service representative to maintain environment for safety [...] (cane, walker) within reach 19. Request patient veterans service representative bring adaptive equipment/mobility aids from home or obtain and provide as needed 20. Consult pharmacy regarding effects of med's affecting mobility, cognition, and alternatives 21. Obtain physician order for PT if risk factors associated with mobility are present 22. Obtain physician order for OT as appropriate 23. Utilize diversional activities 24. Educate patient and patient veterans service representative how to maintain a safe environment during visitationtimes (notify nurse prior to leaving bedside) 25. Consider appropriateness of medical or non-medical concierge 26. Set up voiding schedule as appropriate [...] supplement as ordered 13. Collaborate with clinical cooker helper 14. Include patient/ patient's veterans service representative in decisions related to nutrition Outcome: Completed Note: Evaluation of progress towards goal: Nutritional intake is adequate [employer]ockets02-03-2025 Progress note* Discharge Planning Note - MILLIE [...] arise. - MILLIE CALL 06/10/24 11:43 AM [facility] [employer] [id number] Plan of care note* Plan of Care - Georgina Guillaume - 06/10/2024 9:55 AM EST Problem: Pain Goal: Patient goal is pain score less than 4, able to rest, and participant in treatment plan as appropriate Description: INTERVENTIONS: 1. Encourage patient or legal veterans service representative to report early pain and [...] per policy 9. Teach patient or legal veterans service representative interventions for comforting Outcome: Progressing [...] at the bedside 7. Instruct patient/ patient veterans service representative about use of safety devices 8. Include patient/ patient veterans service representative in decisions related to safety [...] hygiene technique. 7. Identify and instruct patient/patient veterans service representative in use of appropriate isolation precautionsfor identified infection/symptoms. 8. Provide and discuss with patient/patient veterans service representative on educational MDRO sheet. 9. Encourage and monitor nutritional status daily and consult cooker helper if indicated. 10. Implement neutropenic guidelines as needed. Outcome: Progressing Note: Evaluation of progress towards goal: Patient has remained free from infection during hospitalstay. Patient is afebrile and last WBC was 6.7. Will continue using standard precautions and monitoring for signs and symptoms of infection. Problem: Knowledge Deficit Goal: Patient/patient veterans service representative demonstrates understanding of disease process, [...] supplement as ordered 13. Collaborate with clinical cooker helper 14. Include patient/ patient's veterans service representative in decisions related to nutrition Outcome: Progressing Note: Evaluation of progress towards goal: Patient appears to have adequate nutritional intake. Problem: Moderate - High Risk Fall Score Description: [place] Fall Score of =/> 25 or indicated by [facility] Assessment Goal: Patient should be free from fall Description: Interventions: 1. [place] to environment 2. Hourly rounds addressing the [...] non-skid footwear 11. Teach patient and patient veterans service representative to maintain environment for safety [...] (cane, walker) within reach 19. Request patient veterans service representative bring adaptive equipment/mobility aids from home or obtain and provide as needed 20. Consult pharmacy regarding effects of med's affecting mobility, cognition, and alternatives 21. Obtain physician order for PT if risk factors associated with mobility are present 22. Obtain physician order for OT as appropriate 23. Utilize diversional activities 24. Educate patient and patient veterans service representative how to maintain a safe environment during visitationtimes (notify nurse prior to leaving bedside) 25. Consider appropriateness of medical or non-medical concierge 26. Set up voiding schedule as appropriate [...] - Rebecca Arredondo RN 06/10/24 11:38 AM [facility] [employer] [id number] Nurse Note* Rola Burrell RN - 06/10/2024 [...] it kept coiling and would not advance. [employer] messaged person real estate utilization officer for urology at 0521. Was not read, no response. Then paged urology at 0630. Waiting for response - Rola Burrell RN 06/10/24 6:37 AM [facility] [id number] Plan of care note* Plan of Care - Rola Burrell RN - 06/10/2024 1:53 AM EST Problem: Pain Goal: Patient goal is pain score less than 4, able to rest, and participant in treatment plan as appropriate Description: INTERVENTIONS: 1. Encourage patient or legal veterans service representative to report early pain and [...] per policy 9. Teach patient or legal veterans service representative interventions for comforting Outcome: Progressing [...] at the bedside 7. Instruct patient/ patient veterans service representative about use of safety devices 8. Include patient/ patient veterans service representative in decisions related to safety [...] hygiene technique. 7. Identify and instruct patient/patient veterans service representative in use of appropriate isolation precautionsfor identified infection/symptoms. 8. Provide and discuss with patient/patient veterans service representative on educational MDRO sheet. 9. Encourage and monitor nutritional status daily and consult cooker helper if indicated. 10. Implement neutropenic guidelines as needed. Outcome: Progressing Note: Evaluation of progress towards goal: Header Dock assessed pt risk for infection in the beginning and throughout shift. Pt remains afebrile. Will continue to monitor. Problem: Knowledge Deficit Goal: Patient/patient veterans service representative demonstrates understanding of disease process, treatment plan,medications, and discharge instructions Description: INTERVENTIONS 1. Complete learning assessment and assess knowledge base 2. Provide teaching at level of understanding 3. Provide teaching via preferred learning method(s) Outcome: Progressing Note: Evaluation of progress towards goal: Header Dock educated pt on admission disease, medications, treatment, [...] supplement as ordered 13. Collaborate with clinical cooker helper 14. Include patient/ patient's veterans service representative in decisions related to nutrition [...] Moderate - High Risk Fall Score Description: [place] Fall Score of =/> 25 or indicated by [facility] Assessment Goal: Patient should be free from fall Description: Interventions: 1. [place] to environment 2. Hourly rounds addressing the [...] non-skid footwear 11. Teach patient and patient veterans service representative to maintain environment for safety [...] (cane, walker) within reach 19. Request patient veterans service representative bring adaptive equipment/mobility aids from home or obtain and provide as needed 20. Consult pharmacy regarding effects of med's affecting mobility, cognition, and alternatives 21. Obtain physician order for PT if risk factors associated with mobility are present 22. Obtain physician order for OT as appropriate 23. Utilize diversional activities 24. Educate patient and patient veterans service representative how to maintain a safe environment during visitationtimes (notify nurse prior to leaving bedside) 25. Consider appropriateness of medical or non-medical concierge 26. Set up voiding schedule as appropriate (every 2 hours) Outcome: Progressing Note: Evaluation of progress towards goal: [place] assessed pt fall precautions in the beginning [...] mentation waxes and wanes. Neuro assessments Q4hrs. [facility]02-02-2025 Plan of care note* Plan of Care - Galina Eaton RN - 06/09/2024 6:46 PM EST Problem: Pain Goal: Patient goal is pain score less than 4, able to rest, and participant in treatment plan as appropriate Description: INTERVENTIONS: 1. Encourage patient or legal veterans service representative to report early pain and [...] per policy 9. Teach patient or legal veterans service representative interventions for comforting Outcome: Progressing [...] at the bedside 7. Instruct patient/ patient veterans service representative about use of safety devices 8. Include patient/ patient veterans service representative in decisions related to safety [...] hygiene technique. 7. Identify and instruct patient/patient veterans service representative in use of appropriate isolation precautionsfor identified infection/symptoms. 8. Provide and discuss with patient/patient veterans service representative on educational MDRO sheet. 9. Encourage and monitor nutritional status daily and consult cooker helper if indicated. 10. Implement neutropenic guidelines as [...] Score of =/> 25 or indicated by [facility] Assessment Goal: Patient should be free from fall Description: Interventions: 1. [place] to environment 2. Hourly rounds addressing the [...] non-skid footwear 11. Teach patient and patient veterans service representative to maintain environment for safety [...] (cane, walker) within reach 19. Request patient veterans service representative bring adaptive equipment/mobility aids from home or obtain and provide as needed 20. Consult pharmacy regarding effects of med's affecting mobility, cognition, and alternatives 21. Obtain physician order for PT if risk factors associated with mobility are present 22. Obtain physician order for OT as appropriate 23. Utilize diversional activities 24. Educate patient and patient veterans service representative how to maintain a safe environment during visitationtimes (notify nurse prior to leaving bedside) 25. Consider appropriateness of medical or non-medical concierge 26. Set up voiding schedule as appropriate [...] goal: wax/wane with mentation. Q4 neuros checked Xockets02-02-2025 Progress note* PT/OT/STREAMING MEDIA SPECIALIST - JERMAN Jay/Bartolome - 06/09/2024 12:07 PM EST Occupational Therapy Evaluation Discharge Recommendations OT Recommendations : Detention Facility SNF/ECF Comments: Recommend SNF for continued [...] History: Diagnosis Date Abnormal EKG Atrial fibrillation ([facility]) Back pain Bradycardia Chronic atrial fibrillation ([facility]) Hypertension Hypertensive heart disease without heart failure Hypokalemia Pure hypercholesterolemia Urinary tract infection 01/2019 seen by [facility] No past surgical history on [...] mobility guidelines Equipment: Gait belt, RW, arenas Telemetry/Air Quality Chemist: Yes Oxygen Used: Room air Other: High [...] Patient will perform bed mobility with Modified [place] Dates: Start: 06/09/24 Expected End: 07/07/24 Description: Goal Description: Disciplines: OT Problem: Cognition Dates: Start: 06/09/24 Disciplines: OT Goal: Patient's goal is: (specify details) Dates: Start: 06/09/24 Expected End: 07/07/24 Description: Pt will demonstrate good safety awareness 100% of the time Disciplines: OT Problem: Functional Mobility Dates: Start: 06/09/24 Disciplines: OT Goal: Patient will perform functional mobility with Modified [place] Dates: Start: 06/09/24 Expected End: 07/07/24 Description: [...] Goal: Patient will perform transfers with Modified [place] Dates: Start: 06/09/24 Expected End: 07/07/24 Description: Goal Description: Disciplines: OT Occupational Therapy Care Plan (Resolved) There are no resolved problems. Principal Problem: Acute encephalopathy [facility]02-02-2025 Progress note* PT/OT/STREAMING MEDIA SPECIALIST - Sadie Sim PT - 06/09/2024 11:21 AM EST Physical Therapy Evaluation Discharge Recommendations PT Recommendations: Detention Facility SNF/ECF Comments: pt will need SNF [...] status decline resulting from admission 06/07/24 from [place] where he went with afib with RVR and altered mentalstatus. MRI brain without acute findings but chronic infarct post R frontal lobe. Neuro stroke consulted and recommended transfer to [facility]. Diagnosed with acute encphalopathy, afib with [...] History: Diagnosis Date Abnormal EKG Atrial fibrillation ([facility]) Back pain Bradycardia Chronic atrial fibrillation ([facility]) Hypertension Hypertensive heart disease without heart failure Hypokalemia Pure hypercholesterolemia Urinary tract infection 01/2019 seen by [facility] No past surgical history on [...] to see Equipment: RW, gait belt, catheter Telemetry/Air Quality Chemist: Yes Oxygen Used: room air Other: pt [...] Patient will perform bed mobility with Modified [place] Dates: Start: 06/09/24 Expected End: 06/23/24 Description: Goal Description: Disciplines: PT Problem: Gait Dates: Start: 06/09/24 Disciplines: PT Goal: Patient will perform gait with Modified [place] Dates: Start: 06/09/24 Expected End: 06/23/24 Description: [...] Goal: Patient will perform transfers with Modified [place] Dates: Start: 06/09/24 Expected End: 06/23/24 Description: Goal Description: Disciplines: PT Physical Therapy Care Plan (Resolved) There are no resolved problems. Principal Problem: Acute encephalopathy [employer] [id number] Progress note* Query Response - Vira Abreu, DEPARTMENT STORE DOOR GREETER-KETTLE GIRL - 06/09/2024 9:09 AM EST Query Response [...] not r/t GI Electronically signed by: Vira SLIVESTRE 06/09/2024 9:07 AM [employer] [facility] Work Phone: 1(740) 957-609902-01-2025 Consult note* Will Renee, NIRMALA - 06/08/2024 7:43 PM ESTAssociated Order(s): IP CONSULT TO NEUROSURGERY Images from the original note were not included. [facility] [address] [place] [address], [address] [place] [address] * NEUROSURGERY CONSULT NOTE DATE:06/08/2024 PATIENT'S NAME: Johnathan Rodney PATIENT'S PATIENT'S : 1955 NEUROSURGERY ATTENDING: Cherise REASON FOR CONSULT Bilateral subdural fluid collections HISTORY OF PRESENT ILLNESS Johnathan Rodney is a 68 y.o. male who presented originally to [facility] on 06/07 for altered mental status [...] Aureliano Garduno DO, Stopped at 06/08/24 1017 wiclbkzx-fszv-OI-calcium &mins (THERAGRAN-M) 9 mg iron-400 mcg tablet [...] hypercholesterolemia Urinary tract infection 01/2019 seen by [facility] No past surgical history on file. [...] - Neurosurgery will continue to follow NABILA [facility] Please contact via GILUPI first then can utilize Patient touch/VoceraEdge if needed 06/08/24 8:03 PM To find out which JAK is on for the day please go to [employer] and use log in [employer] and search for P[facility] Neurosurgery (JAK and Phone Number is listed) - NIRMALA BEEBE 06/08/24 7:44 PM NIRMALA Beebe 06/08/242003 [facility] [id number] Consult note* NIRMALA Beebe - 06/08/2024 7:43 PM ESTAssociated Order(s): IP CONSULT TO NEUROSURGERY Images from the original note were not included. [facility] [address] [place] [address], [address] [place] [address] * NEUROSURGERY CONSULT NOTE DATE:06/08/2024 PATIENT'S NAME: Johnathan Rodney PATIENT'S PATIENT'S : 1955 NEUROSURGERY ATTENDING: Cherise REASON FOR CONSULT Bilateral subdural fluid collections HISTORY OF PRESENT ILLNESS Johnathan Rodney is a 68 y.o. male who presented originally to [facility] on 06/07 for altered mental status [...] Aureliano Garduno DO, Stopped at 06/08/24 1017 cqtbwact-tzwr-JZ-calcium &mins (THERAGRAN-M) 9 mg iron-400 mcg tablet [...] hypercholesterolemia Urinary tract infection 01/2019 seen by [facility] No past surgical history on [...] Julio- [facility] Please contact via GILUPI first then can utilize Patient touch/VoceraEdge if needed 06/08/24 8:03 PM To find out which JAK is on for the day please go to [employer] and use log in [employer] and search for PTH Neurosurgery (JAK and Phone Number is listed) - WILL RENEE APRN-KETTLE GIRL 06/08/24 7:44 PM NIRMALA Beebe 06/08/242003 * KRYSTYNA Mendoza - 06/07/2024 8:59 AM ESTAssociated Order(s): IP CONSULT TO UROLOGY Images from the original note were not included. Urology Consultation Patient: Johnathan Rodney Date of : 1955 CHIEF COMPLAINT: right hydronephrosis HISTORY OF PRESENT ILLNESS: The patient is a 68 y.o. male who presents as a transfer in from [facility]. Paper records available in hard chart. [...] any abdominal pain, no LUTS. According to [place] records, the family says he reportedly had some abdominal pain when he came in. Denies ever seeing a urologist, no hx of nephrolithiasis in the past. Patient's old records, notes and chart reviewed and summarized above. Past Medical History: Past Medical History: Diagnosis Date Abnormal EKG Atrial fibrillation ([facility]) Back pain Bradycardia Chronic atrial fibrillation ([facility]) Hypertension Hypertensive heart disease without heart failure Hypokalemia Pure hypercholesterolemia Urinary tract infection 01/2019 seen by [facility] Past Surgical History: No past [...] LORazepam OR LORazepam magnesium sulfate magnesium sulfate htjfghuj-obyt-VB-calcium &mins potassium chloride OR potassium chloride OR [...] AM ESTAssociated Order(s): IP CONSULT TO GASTROENTEROLOGY [facility] Initial Gastroenterology/Hepatology Consultation Note IDENTIFYING DATA PATIENT: Johnathan Rodney ADMIT DATE: 06/07/2024 TIME OF EVALUATION: 06/07/2024 8:45 AM Reason for Consult: eval for cirrhosis Requesting Physician: Shawanda Yañez HISTORY OF PRESENT ILLNESS Johnathan Rodney is a 68 y.o. male with a PMH of AFib on Eliquis, HTN, CKD, chronic systolic HF, heavy alcohol use, marijuana use admitted with encephalopathy after presenting to [facility] with altered mental status and hallucinations. [...] hypercholesterolemia Urinary tract infection 01/2019 seen by [facility] No past surgical history on [...] Katie Laureen, DO, Stopped at 06/07/24 0733 vblwxrzz-zxav-MO-calcium &mins (THERAGRAN-M) 9 mg iron-400 mcg tablet [...] mg, PRN magnesium sulfate, 4,000 mg, PRN mekabtcc-tyde-HS-calcium &mins, 1 tablet, Daily PRN potassium chloride, [...] at hospital but thinks he is stillin [place], NAD HEENT: Normocephlic, Atraumatic, No sclera icterus [...] - 5 /hpf IMAGING: Abdominal US at [place] on 06/06/2024- showed normal liver ASSESSMENT AND PLAN Johnathan Rodney is a 68 y.o. male with a PMH of AFib on Eliquis, HTN, CKD, chronic systolic HF, heavy alcohol use, marijuana use admitted with encephalopathy after presenting to [facility] with altered mental status and hallucinations. Reported [...] the care of Johnathan Rodney. [facility]ALA [facility] [place] [id number] PH: [phone] NIRMALA Jara 06/07/24 1316 NIRMALA Jara 06/07/24 1316 Attending Attestation: Level of Participation Examined and discussed the patient with JAK Agreement I agree with the JAK's management. Attending Note I reviewed the JAK'sdocumentation and agree with the findings, assessment and plan Richardson Brandt D.O. [facility] [address] [address] PH: [phone] * Demetria Keller DO - 06/07/2024 8:12 [...] and marijuana use who was transferred to [facility] from [facility] for encephalopathy with questionable hallucination, [...] History: Diagnosis Date Abnormal EKG Atrial fibrillation ([facility]) Back pain Bradycardia Chronic atrial fibrillation ([facility]) Hypertension Hypertensive heart disease without heart failure Hypokalemia Pure hypercholesterolemia Urinary tract infection 01/2019 seen by [facility] No past surgical history on [...] M Laureen, DO, Stopped at 06/07/24 0733 bwiijkud-ylya-CL-calcium &mins (THERAGRAN-M) 9 mg iron-400 mcg tablet [...] and marijuana use who was transferred to [facility] from [facility] with AMS and hyperbilirubinemia. [...] 8:12 AM General Surgery C 6a-6p pager #[phone] 6p-6a pager #[phone] Cosigned by Nicolas Wells MD at 06/07/2024 [...] General Surgery and Minimally Invasive Surgery [address], [address] [place] [address] Office: * Marii Potter MD - 06/07/2024 5:36 AM ESTAssociated Order(s): IP CONSULT TO NEUROLOGY Images from the original note were not included. [facility] General Neurology Consultation Note Consult Neurology Service: [phone] Primary Team: [facility] Chief Complaint and Reason for Consultation: [...] occult infection. [facility]. On initial [...] disease without heart failure Chronic atrial fibrillation ([facility]) Abnormal EKG Bradycardia Syncope 09/15/2017 Resolved Ambulatory Problems Diagnosis Date Noted Hypertension Past Medical History: Diagnosis Date Atrial fibrillation ([facility]) Back pain Urinary tract infection 01/2019 Family [...] pathological reflexes: Ankle clonus absent. Coordination Right: Tabskc-nd-lxcd normal.Left: Yjjlbw-im-edrg normal. Gait Deferred. Objective Pertinent Labs: No results found for this or any previous visit (from the past 72 hours). Imaging: No results found. Other Testing: PROBLEM LIST: Patient Active Problem List Diagnosis Pure hypercholesterolemia Hypokalemia Hypertensive heart disease without heart failure Chronic atrial fibrillation ([facility]) Abnormal EKG Bradycardia Syncope Acute encephalopathy [...] Signed by Marii Potter MD Neurology Resident, [facility] Please contact via secure chat Staffed with: Dr. Marie This patient is being followed by the Neurology Resident service. Contact attending directly during these hours: Monday to 7:30-8:30 A.M. to Monday 12-1:00 p.m. Primary Neurology service: [phone] Consult neurology service: [phone] Resident Stroke Service: [phone] If the patient belongs to the Stroke [...] for: EAG Lab Results Component Value Date [id number] >1,500 (H) 06/07/2024 Neurological work up: CT [...] extrapolated by contextual derivation. documented in this encounterPorter [facility] CenterRFMicron02-01-2025 Miscellaneous Notes* Telephone Encounter - NIRMALA Kuhn - 06/08/2024 3:31 PM EST Please arrange for outpatient follow-up for a FibroScan. We are asked to see the patient in the hospital for evaluation of possible cirrhosis. * Telephone Encounter - Sana Palmer RN - 06/08/2024 3:31 PM EST Patient currently admitted. documented in this encounterPorter Medical CenterRFMicron02-01-2025 Telephone encounter Note* Telephone Encounter - NIRMALA Kuhn - 06/08/2024 3:31 PM EST Please arrange for outpatient follow-up for a FibroScan. We are asked to see the patient in the hospital for evaluation of possible cirrhosis. [employer] Work Phone: 1(904) 909-840002-01-2025 Telephone encounter Note* Telephone Encounter - Sana Palmer RN - 06/08/2024 3:31 PM EST Patient currently admitted. [facility] Plan of care note* Plan of Care [...] at the bedside 7. Instruct patient/ patient veterans service representative about use of safety devices 8. Include patient/ patient veterans service representative in decisions related to safety Outcome: Progressing Note: Evaluation of progress towards goal: Patient free from injury, will continue to provide a clean environment, personal objects in reach, and a well light room Problem: Knowledge Deficit Goal: Patient/patient veterans service representative demonstrates understanding of disease process, [...] Score of =/> 25 or indicated by [facility] Assessment Goal: Patient should be free from fall Description: Interventions: 1. [place] to environment 2. Hourly rounds addressing the [...] non-skid footwear 11. Teach patient and patient veterans service representative to maintain environment for safety [...] (cane, walker) within reach 19. Request patient veterans service representative bring adaptive equipment/mobility aids from home or obtain and provide as needed 20. Consult pharmacy regarding effects of med's affecting mobility, cognition, and alternatives 21. Obtain physician order for PT if risk factors associated with mobility are present 22. Obtain physician order for OT as appropriate 23. Utilize diversional activities 24. Educate patient and patient veterans service representative how to maintain a safe environment during visitationtimes (notify nurse prior to leaving bedside) 25. Consider appropriateness of medical or non-medical concierge 26. Set up voiding schedule as appropriate (every 2 hours) Outcome: Progressing Note: Evaluation of progress towards goal: Patient free from injury, will continue to provide a clean environment, personal objects in reach, and a well light room Xockets02-01-2025 Progress note* PT/OT/STREAMING MEDIA SPECIALIST - Will Doyle PT - 06/08/2024 11:04 AM EST Physical Therapy PT Type of Visit: Medical deferral Reason For Medical Deferral: Medical procedure ongoing, RN deems inappropriate, Imaging results pending (pt had fall last night and is leaving for stat CT on attempt at eval. will hold at this time) Xockets01-31-2025 Nurse Note* Meaghan Lam RN - 06/07/2024 [...] At 2119 RN called Vito BENEDICTRLucas with [facility] Team G as primary care team. Stat head CT ordered. Neuro assessment and vitals completed per RN. No neuro changes. Patient still A&O X 4, just slow to say the complete year correctly. Primary updated on assessment and Kiki MANCUSO took patient to CT. - Meaghan Lam RN 06/07/24 9:49 PM Xockets01-31-2025 Plan of care note* Plan of Care - Meaghan Lam RN - 06/07/2024 9:00 PM EST Problem: Pain Goal: Patient goal is pain score less than 4, able to rest, and participant in treatment plan as appropriate Description: INTERVENTIONS: 1. Encourage patient or legal veterans service representative to report early pain and [...] per policy 9. Teach patient or legal veterans service representative interventions for comforting Outcome: Progressing [...] at the bedside 7. Instruct patient/ patient veterans service representative about use of safety devices 8. Include patient/ patient veterans service representative in decisions related to safety [...] hygiene technique. 7. Identify and instruct patient/patient veterans service representative in use of appropriate isolation precautionsfor identified infection/symptoms. 8. Provide and discuss with patient/patient veterans service representative on educational MDRO sheet. 9. Encourage and monitor nutritional status daily and consult cooker helper if indicated. 10. Implement neutropenic guidelines as needed. Outcome: Progressing Note: Evaluation of progress towards goal: Patient has remained afebrile. WBC and vital signs monitored. Patient has not shown any additional signs of infection at this time. Problem: Knowledge Deficit Goal: Patient/patient veterans service representative demonstrates understanding of disease process, [...] be free from fall Description: Interventions: 1. [place] to environment 2. Hourly rounds addressing the [...] non-skid footwear 11. Teach patient and patient veterans service representative to maintain environment for safety [...] (cane, walker) within reach 19. Request patient veterans service representative bring adaptive equipment/mobility aids from home or obtain and provide as needed 20. Consult pharmacy regarding effects of med's affecting mobility, cognition, and alternatives 21. Obtain physician order for PT if risk factors associated with mobility are present 22. Obtain physician order for OT as appropriate 23. Utilize diversional activities 24. Educate patient and patient veterans service representative how to maintain a safe environment during visitationtimes (notify nurse prior to leaving bedside) 25. Consider appropriateness of medical or non-medical concierge 26. Set up voiding schedule as appropriate [...] about disease process, medications, and treatment plan. Header Dock to update patient throughout the shift regarding plan of care. [facility] [id number] Plan of care note* Plan of Care [...] at the bedside 7. Instruct patient/ patient veterans service representative about use of safety devices 8. Include patient/ patient veterans service representative in decisions related to safety Outcome: Progressing Note: Evaluation of progress towards goal: Patient free from injury, will continue to provide a clean environment, personal objects in reach, and a well light room Problem: Knowledge Deficit Goal: Patient/patient veterans service representative demonstrates understanding of disease process, [...] Score of =/> 25 or indicated by [facility] Assessment Goal: Patient should be free from fall Description: Interventions: 1. [place] to environment 2. Hourly rounds addressing the [...] non-skid footwear 11. Teach patient and patient veterans service representative to maintain environment for safety [...] (cane, walker) within reach 19. Request patient veterans service representative bring adaptive equipment/mobility aids from home or obtain and provide as needed 20. Consult pharmacy regarding effects of med's affecting mobility, cognition, and alternatives 21. Obtain physician order for PT if risk factors associated with mobility are present 22. Obtain physician order for OT as appropriate 23. Utilize diversional activities 24. Educate patient and patient veterans service representative how to maintain a safe environment during visitationtimes (notify nurse prior to leaving bedside) 25. Consider appropriateness of medical or non-medical concierge 26. Set up voiding schedule as appropriate [...] patient is alert to self and location. 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 [...] goal: Will need food box at discharge. [facility] [id number] Consult note* KRYSTYNA Mendoza - 06/07/2024 8:59 AM ESTAssociated Order(s): IP CONSULT TO UROLOGY Images from the original note were not included. Urology Consultation Patient: Johnathan Rodney Date of : 1955 CHIEF COMPLAINT: right hydronephrosis HISTORY OF PRESENT ILLNESS: The patient is a 68 y.o. male who presents as a transfer in from [facility]. Paper records available in hard chart. [...] any abdominal pain, no LUTS. According to [facility] records, the family says he reportedly had [...] hypercholesterolemia Urinary tract infection 01/2019 seen by [facility] Past Surgical History: No past [...] LORazepam OR LORazepam magnesium sulfate magnesium sulfate jedeogip-sbhw-TZ-calcium &mins potassium chloride OR potassium chloride OR [...] Information Photos/Images Abd U/s report impression from [facility] 06/07/2024 08:12 Attached To: Hospital Encounter on [...] Jin MD at 06/10/2024 2:41 PM EST [facility] Work Phone: [phone] 894-118301-31-2025 Consult note* Richardson Brandt - 06/07/2024 8:44 AM ESTAssociated Order(s): IP CONSULT TO GASTROENTEROLOGY [facility] Initial Gastroenterology/Hepatology [...] use admitted with encephalopathy after presenting to [facility] with altered mental status and hallucinations. [...] hypercholesterolemia Urinary tract infection 01/2019 seen by [facility] No past surgical history on [...] mg/mL premix), 2,000 mg, intravenous,PRN, Aureliano M Luareen, DO magnesium sulfate IVPB 4000 mg/100 mL in iso-osmotic water (40 mg/mL premix), 4,000 mg, intravenous, PRN, Aureliano M Laureen, DO metroNIDAZOLE (FLAGYL) IVPB 500 mg/100 mL in iso-osmotic sodium chloride (5 mg/mL premix), 500 mg, intravenous, Q12H, Aureliano M Laureen, DO, Stopped at 06/07/24 0733 lfkxyqxg-ekbo-DN-calcium &mins (THERAGRAN-M) 9 mg iron-400 mcg tablet [...] mg, PRN magnesium sulfate, 4,000 mg, PRN zibkrnxl-zvmx-MO-calcium &mins, 1 tablet, Daily PRN potassium chloride, [...] - 5 /hpf IMAGING: Abdominal US at [facility] on 06/06/2024- showed normal liver ASSESSMENT AND PLAN Johnathan Rodney is a 68 y.o. male with a PMH of AFib on Eliquis, HTN, CKD, chronic systolic HF, heavy alcohol use, marijuana use admitted with encephalopathy after presenting to [facility] with altered mental status and hallucinations. [...] the care of Johnathan Rodney. NIRMALA Smith [facility] [place] [id number] PH: [phone] NIRMALA Jara 06/07/24 1316 NIRMALA Jara 06/07/24 1316 Attending Attestation: Level of Participation Examined and discussed the patient with JAK Agreement I agree with the JAK's management. Attending Note I reviewed the JAK'sdocumentation and agree with the findings, assessment and plan Richardson Brandt D.O. [facility] [address] [address] PH: [phone] [employer] [facility] Work Phone: [phone] Consult note* Demetria Keller DO - 06/07/2024 [...] and marijuana use who was transferred to [facility] from [facility] for encephalopathy with questionable hallucination, [...] History: Diagnosis Date Abnormal EKG Atrial fibrillation ([facility]) Back pain Bradycardia Chronic atrial fibrillation ([facility]) Hypertension Hypertensive heart disease without heart failure Hypokalemia Pure hypercholesterolemia Urinary tract infection 01/2019 seen by [facility] No past surgical history on [...] M Laureen, DO, Stopped at 06/07/24 0733 yyvqntit-zjxb-VM-calcium &mins (THERAGRAN-M) 9 mg iron-400 mcg tablet [...] and marijuana use who was transferred to [facility] from OSH with AMS and hyperbilirubinemia. [...] 8:12 AM General Surgery C 6a-6p pager #[phone] 6p-6a pager #[phone] Cosigned by Nicolas Wells MD at 06/07/2024 [...] etiology. Doubt gallbladder etiology. Nicolas Wells MD, [facility] General Surgery and Minimally Invasive Surgery [address] [place] [address], [address] [place] [address] Office: [facility]01-31-2025 History and physical note* Aureliano Garduno DO - 06/07/2024 6:00 AM EST Images from the original note were not included. [facility] History & Physical Examination H&P Department of Internal Medicine 06/07/2024 Patient Name: Johnathan Rodney : 1955 No chief complaint on file. HPI Johnathan Rodney is a 68 y.o. male medical history significant for atrial fibrillation, hypertension, chronic systolic heart failure, history of alcohol use disorder, who presented to [facility] for evaluation of altered mentation. [...] transfer to [facility] for evaluation with potential lumbar puncture. Per chart family was concerned about abdominal discomfort the patient was complaining about prior to hospitalization. Past Medical History: Diagnosis Date Abnormal EKG Atrial fibrillation ([facility]) Back pain Bradycardia Chronic atrial fibrillation ([facility]) Hypertension Hypertensive heart disease without heart failure Hypokalemia Pure hypercholesterolemia Urinary tract infection 01/2019 seen by [facility] No past surgical history on file. [...] (THREE) TIMES A DAY.02/04/21 Yes Crow Andino APRN-KETTLE GIRL labetaloL (NORMODYNE) 200 mg tablet Take 2 [...] MOUTH EVERY DAY 09/16/21 Yes Vanessa Louie APRN-KETTLE GIRL reports that he has quit smoking. He [...] has been identified and corrected by editing. [employer] Work Phone: [phone] History and physical note* Aureliano Garduno DO - 06/07/2024 6:00 AM EST Images from the original note were not included. [facility] History & Physical Examination H&P Department of Internal Medicine 06/07/2024 Patient Name: Johnathan Rodney : 1955 No chief complaint on file. HPI Johnathan Rodney is a 68 y.o. male medical history significant for atrial fibrillation, hypertension, chronic systolic heart failure, history of alcohol use disorder, who presented to [facility] for evaluation of altered mentation. [...] transfer to [facility] for evaluation with potential lumbar puncture. Per chart family was concerned about abdominal discomfort the patient was complaining about prior to hospitalization. Past Medical History: Diagnosis Date Abnormal EKG Atrial fibrillation ([facility]) Back pain Bradycardia Chronic atrial fibrillation ([facility]) Hypertension Hypertensive heart disease without heart failure Hypokalemia Pure hypercholesterolemia Urinary tract infection 01/2019 seen by [facility] No past surgical history on [...] MOUTH EVERY DAY 09/16/21 Yes Vanessa Louie APRN-KETTLE GIRL reports that he has quit smoking. He [...] Acute urinary retention 8. Alcohol use disorder [facility] protocol with p.r.n. Ativan, daily multivitamin thiamine [...] and corrected by editing. [facility] Consult note* Marii Potter MD - 06/07/2024 5:36 AM ESTAssociated Order(s): IP CONSULT TO NEUROLOGY Images from the original note were not included. [facility] Neurology General Neurology Consultation Note Consult Neurology Service: [phone] Primary Team: [facility] Chief Complaint and Reason for Consultation: [...] occult infection. Patient was [facility] evaluation. On initial [...] disease without heart failure Chronic atrial fibrillation ([facility]) Abnormal EKG Bradycardia Syncope 09/15/2017 Resolved Ambulatory Problems Diagnosis Date Noted Hypertension Past Medical History: Diagnosis Date Atrial fibrillation ([facility]) Back pain Urinary tract infection 01/2019 Family [...] pathological reflexes: Ankle clonus absent. Coordination Right: Lyadld-dm-sjlr normal.Left: Vrgyyl-bt-hzwk normal. Gait Deferred. Objective Pertinent Labs: No results found for this or any previous visit (from the past 72 hours). Imaging: No results found. Other Testing: PROBLEM LIST: Patient Active Problem List Diagnosis Pure hypercholesterolemia Hypokalemia Hypertensive heart disease without heart failure Chronic atrial fibrillation ([facility]) Abnormal EKG Bradycardia Syncope Acute encephalopathy [...] Signed by Marii Potter MD Neurology Resident, [facility] Please contact via secure chat Staffed with: Dr. Marie This patient is being followed by the Neurology Resident service. Contact attending directly during these hours: Monday to 7:30-8:30 A.M. to Monday 12-1:00 p.m. Primary Neurology service: [phone] Consult neurology service: [phone] Resident Stroke Service: [phone] If the patient belongs to the Stroke [...] for: EAG Lab Results Component Value Date [id number] >1,500 (H) 06/07/2024 Neurological work up: CT [...] meaning can be extrapolated by contextual derivation. [employer] Work Phone: Evaluation + Plan note No data available for this section [facility] evaluation + Plan note Future Appointments Appointment Date:11/01/2024 10:30:00 AM Scheduled Provider: Location:[facility] Appointment Type:Urology CALL PAT FT Appointment Date:11/04/2024 02:45:00 PM Scheduled Provider: Location:[facility] Appointment Type:Urology FT [facility] evaluation + Plan note Future Appointments Appointment Date:03/05/2025 11:00:00 AM Scheduled Provider:DONAL MCGARRY MD Location:[facility] Appointment Type:URO Office Visit [facility] Evaluation note* Diagnosis Acute encephalopathy- Primary documented [facility] this encounter [facility] noteNo assessment information available [facility] Work Phone: Hospital Discharge instructionsNot on filedocumented in this encounterBellevue HospitalHospital Discharge instructions No data available for this section [facility] InstructionsNot on filedocumented in this encounter [facility] SystemProgress note No data available for this section [facility] reason for referral (narrative)* Misc (Routine) - Pending ReviewSpecialtyDiagnoses / ProceduresReferred By ContactReferred To Contact Procedures Adult diet Tabatha León MD [address] [place] [id number] Phone: tel: fax: Referral IDStatusReasonStart DateExpiration DateVisits RequestedVisits [id number] Review/ [facility] HospitalReason for referral (narrative)No reason for referral information availableThe [facility] Work Phone: Reason for visit Narrative* Auth/CertSpecialty Diagnoses / ProceduresReferred By ContactReferred To Contact Diagnoses Acute Encephalopathy [address] [address] Referral IDStatusReasonStart DateExpiration DateVisits RequestedVisits [id number] [facility] Summary Purpose Family History [...] section and content) DATE CREATED AUTHOR 12/19/2018 [facility] DATE CREATED AUTHOR AUTHOR'S ORGANIZ ATION 12/07/2023 [facility] EPIC DATE CREATED AUTHOR AUTHOR'S ORGANIZ ATION 06/12/2024 [facility] DATE CREATED AUTHOR AUTHOR'S ORGANIZ ATION 06/14/2024 [facility] DATE CREATED AUTHOR AUTHOR'S ORGANIZ ATION 12/01/2024 [facility] DATE CREATED AUTHOR AUTHOR'S ORGANIZ ATION 03/07/2025 [facility] Care Teams (unrecognized sec tion and content) Team MemberRelationshipSpecialtyStart DateEnd Date Shaikh Juarez MD PCP - GeneralInternal Medicine05/24/23Team MemberRelationshipSpecialtyStart Date End Date [facility] [address] [place], [place] PCP - Generalmily Medicine01/01/17Team MemberRelationshipSpecialtyStart DateEnd Date [facility] [address] [place], [place] [facility] Team Status: Inactive Member Role Status Dates Ramon Sutherland MD Attending Provider Active Sta rt: November 20, 2024 End: November 20, 2024Team MemberRelationshipSpecialtyStart DateEnd Date Shaikh Juarez MD PCP - GeneralInternal Medicine Jaleel Chacon MD PCP - GeneralFamily Medicine12/06/23 Skylar Gustafson NP Nurse Pract[facility]erDec[facility] Hospitally Medicine12/06/23 Scheduled Active and Recently [...] 1400, Hold if blood pressure is greater [id number] mmHg Look-alike/sound-alike medication - verify indication for [...] (Given - Provider: Shazia Haynes, JAMEE) Medication Order//[id number]///09/2024 acetaminophen (TYLENOL) tablet 650 mg 650 mg, [...] medication - verify indication for use. * 2452 (Given - Provider: Shazia Haynes RN) dlbsyoot-btop-WP-calcium &mins (THERAGRAN-M) 9 mg iron-400 mcg tablet [...] mEq. Do not crush or chew. * 5491 (Given - Provider: Shazia Haynes RN) potassium [...] BE BASED ON THE PRIMARY CLINICAL RECORDS. [facility] [employer]. provides no warranty or guarantee of the accuracy or completeness of information in this document.
[2025-04-17 14:57] LABS: Hematocrit 30.1 % (42.0-54.0); Hemoglobin 8.6 g/dL (14.0-18.0); Immature Granulocytes Abs Auto 0.01 10^3/uL (0.00-0.03); Immature Granulocytes Pct Auto 0.2 % (0.0-0.5); Lymphocytes Absolute Auto 0.7 10^3/uL (1.2-3.8); Mean Corpuscular HGB Conc 28.6 g/dL (29.9-35.2); Mean Corpuscular Hemoglobin 21.6 pg (25.9-34.0); Mean Corpuscular Volume 75.6 fL (80.0-94.0); Platelet Count 192 10^3/uL (150-450); Red Blood Count 3.98 10^6/uL (4.70-6.10); White Blood Count 5.2 10^3/uL (4.0-11.0)
[2025-04-17 15:08] LABS: SARS-CoV-2 Ag POSITIVE (NEGATIVE)
[2025-04-17 15:08] LABS: INR 1.23; Prothrombin Time 12.7 sec (9.0-11.6)
[2025-04-17 15:23] LABS: Creatine Kinase 61 U/L (39-308)
[2025-04-17 15:30] LABS: Lactate/Lactic Acid 1.1 mmol/L (0.4-2.0)
[2025-04-17 15:36] LABS: Alanine Aminotransferase 30 U/L (16-63); Albumin Globulin Ratio 0.7; Albumin Level 3.0 g/dL (3.4-5.0); Alkaline Phosphatase 111 U/L (46-116); Anion Gap 13.9; Aspartate Amino Transferase 24 U/L (15-37); Blood Urea Nitrogen 22.0 mg/dL (7.0-18.0); Calcium 8.7 mg/dL (8.5-10.1); Carbon Dioxide 22.1 mmol/L (21.0-32.0); Chloride 108 mmol/L (98-107); Estimated GFR (African America 58 (>=60 mL/min/1.73m^2); Estimated GFR (Non-African Ame 48 (>=60 mL/min/1.73m^2); Globulin 4.5 g/dL; Glucose 100 mg/dL (74-106); Lipase 74.0 U/L (16.0-77.0); Magnesium 2.0 mg/dL (1.8-2.4); Potassium 4.0 mmol/L (3.5-5.1); Sodium 140 mmol/L (136-145); Total Protein 7.5 g/dL (6.4-8.2)
[2025-04-17 16:38] LABS: Glucose Urine UA NEGATIVE (NEGATIVE)
[2025-04-17 16:55] LABS: Cast Seen? NONE SEEN #/LPF (NONE SEEN); Crystals Seen? None Seen #/HPF (None Seen); Urine Culture Indicated YES-FRMC
[2025-04-17 17:01] LABS: Thyroid Stimulating Hormone 2.928 uIU/mL (0.358-3.740)
--- OUTSIDE RECORDS SUMMARY | 2025-04-17 18:00 | XMS_ITS | CCD ---
Author Organization [facility] CliniSymt Care Team Providers Care Propagation Worker Name Role Phone MISC, DOCTOR Primary Care Unavailable PAY, PETR Admitting Unavailable PAY, PETR Attending Unavailable PAY, PETR Consulting Unavailable Shaikh Juarez MD Primary Care Provider [phone] SHAIKH JUAREZ Attending Unavailable SHAIKH JUAREZ Attending Unavailable SHAIKH JUAREZ Attending Unavailable Services, [facility] Primary Care Provider SERVICES, [facility] Primary Care Unava ilable ANTIONE OZUNA Consulting Unavailable SERVICES, [facility] Primary Care Unava ilable SERVICES, [facility] Care Unava ilable SERVICES, [facility] Care Unava ilable SERVICES, [facility] Care Unava ilable SERVICES, [facility] Care Unava ilable MATTHEW PHILIPPE Admitting Unavailable RAMON SUTHERLAND Referring Unavailable SERVICES, [facility] Care Unava ilable CATRINA MARIE Consulting Unavailable TABATHA LEÓN Attending Unavailable HOPPS VLIZBETH Consulting Unavailable NICOLAS WELLS Consulting Unavailable RICHARDSON BRANDT Consulting Unavailable FREDERICK LUONG Consulting Unavailable Ramon Sutherland Primary Care Physician Ramon Sutherland MD Attending Provider [phone] Ramon Sutherland Attending Unavailable Ramon Sutherland Admitting [...] [No Known Medication Allergies]Propensity to adverse reactions (disorder)[facility] Repository Medications Current Medications MedicationDrug Class(es)DatesSig (Normalized)Sig (Original)acetaminophen 325 mg oral tablet (5 sources)Start: 55-71-5313lcet 1 mg by mouth every four hoursacetaminophen 325 mg Tab mg tab(s), Oral, q4hr, Refills(s) 0 Start Date: 06/25/24 Status: Ordered Medication Dispense Status: Completed Total Allowed Fills: 1 Fills Dispensed: 0 Start: 34-93-9490icxs 1 tablet by mouth every four hours as miwsta377 mg, oral, Every 4 hours PRN, Temperature greater than 38.3 C, Starting on Mon06/07/24 at 0531, [Warning: Total Acetaminophen not to exceed more than 4 grams (4000 mg) in 24 hours]apixaban 5 mg oral tablet (11 sources)Factor Xa InhibitorStart: 70-04-0110fler 1 mg by mouth twice daily apixaban 5 mg oral tablet mg tab(s), Oral, BID, Refills(s) 0 Start Date: 06/25/24 Status: Ordered Medication Dispense Status: Completed Total Allowed Fills: 1 Fills Dispensed: 0Start: 30-27-8562cdqt 1 tablet by mouth in the morningEliquis 5 MG tablet Take 5 mg by mouth in the morning and 5 mg before bedtime. 0 05/17/2023 ActiveStart: 14-02-7915irzs 1 tablet by mouth every twelve hours apixaban (ELIQUIS) 5 mg tablet Take 1 tablet (5 mg total) by mouth every 12 (twelve) hours. 180 tablet 3 01/04/2021 Activeatorvastatin 40 mg oral tablet (7 sources)HMG-CoA Reductase InhibitorStart: 55-17-2257dsvyzorqiaxy 40 mg Tab 40 mg = 1 tab(s), Refills(s) 0 Start Date: 06/25/24 Status: Ordered Medication Dispense Status: Completed Total Allowed Fills: 1 Fills Dispensed: 0Start: 39-76-5484fjzu 1 tablet by mouth once dailyatorvastatin (LIPITOR) 40 mg tablet Take 1 tablet (40 mg total) by mouth nightly. 30 tablet 06/12/2024 Active carvedilol 12.5 mg oral tablet (7 sources)alpha-Adrenergic Manisha, beta-Adrenergic BlockerStart: 06-25-2024 carvedilol 12.5 mg Tab 12.5 mg = 1 tab(s), Refills(s) 0 Start Date: 06/25/24 Status: Ordered Medication Dispense Status: Completed Total Allowed Fills: 1 Fills Dispensed: 0Start: 83-40-9723xpgk 1 tablet by mouth in the morning, then take 1 tablet by mouth at bedtimecarvediloL (COREG) 12.5 mg tablet Take 1 tablet (12.5 mg total) by mouth in the morning and 1 tablet (12.5 mg total) before bedtime. 60 tablet 06/12/2024 ActivecefTRIAXone 1000 mg injection (2 sources)Cephalosporin AntibacterialStart: 06-07-2024 End: 26-18-4324dcpn 1000 mg intravenously every twenty-four hours1,000 mg, intravenous, at 100 mL/hr, Administer over 30 Minutes, Every 24 hours, First dose (after last modification) on Mon06/12/24 at 1030, For 1 day, Look-alike/sound-alike medication - verify indication for use. Do not co- administer with calcium-containing solutions such as Lactated Ringers., Ind ication: Intra-abdominaldiazePAM 10 mg oral tablet (3 sources)BenzodiazepineStart: 43-83-1276Yhlurs 10 mg Tab 10 mg = 1 tab(s), Oral, Once, PRN for anxiety, take one hour prior to procedure, #1 tab(s), Refills(s) 0, Pharmacy: [facility] [id number], 180, cm, 07/19/24 13:40:00 EDT, Height/Length Dosing, 80, kg, 07/19/24 13:40:00 EDT, Weight Dosing Start Date: 10/15/24 Status: Ordered Medication Dispense Status: Completed Quantity: 1.0 Unit: tab(s) Total Allowed Fills: 1 Fills Dispensed:0docusate sodium 50 mg / sennosides, mcc 8.6 mg oral tablet (1 source)Start: 25-30-5120wygw 2 tablets by mouth once daily2 tablet, oral, Nightly, First dose on Mon06/11/24 at 2200folic acid 1 mg oral tablet (7 sources)Start: 67-76-9790xzvxt acid 1 mg Tab 1 mg = 1 tab(s), Refills(s) 0 Start Date: 06/25/24 Status: Ordered Medication Dispense Status: Completed Total Allowed Fills: 1 Fills Dispensed: 0Start: 22-98-6046nnbq 1 tablet by mouth in the morningfolic acid (FOLVITE) 1 mg tablet Take 1 tablet (1 mg total) by mouth in the morning. 30 tablet 06/13/2024 ActiveStart: 39-89-9003vzfn 1 tablet by mouth in the morningfolic acid (FOLVITE) 1 mg tablet Take 1 tablet (1 mg total) by mouth in the morning. 30 tablet 06/13/2024Start: 45-31-0932xuir 1 mg by mouth once daily1 mg, oral, Daily, First dose on Mon06/07/24 at 0900, Look-alike/sound-alike medication - verify indication for use.furosemide 40 mg oral tablet (9 sources)Loop DiureticStart: 00-13-7495aihbclvewn 40 mg Tab 40 mg = 1 tab(s), Refills(s) 0 Start Date: 06/25/24 Status: Ordered Medication Dispense Status: Completed Total Allowed Fills: 1 Fills Dispensed: 0Start: 74-23-0913hlfe 1 tablet by mouth once dailyfurosemide (LASIX) 40 mg tablet Take 1 tablet (40 mg total) by mouth daily. 30 tablet 06/13/2024 ActiveStart: 77-74-9297adfu 1 tablet by mouth once dailyfurosemide (LASIX) 40 mg tablet Take 1 tablet (40 mg total) by mouth daily. 30 tablet 06/13/2024Start: 67-89-673988 mg, oral, Daily, First dose on Mon06/11/24 at 0900, HOLD FOR BLOOD PRESSURE LESS THAN 100 MMHG Loo k-alike/sound-alike medication - verify indication for use.Start: 06-08-2024 End: 01-30-6700dcjk 40 mg intravenously every twelve hours40 mg, intravenous, Every 12 hours, First dose on Mon06/08/24 at 1100, For 6 doses, Look-alike/sound- alike medication - verify indication for use. IVP rate = 20 mg/minStart: 05-24-2023 End: 44-37-6322koaz 1 tablet by mouth in the morningfurosemide [...] ml glucose 50 mg/ml injection (3 sources)Start: 04-20-8929ljeb 70 mg intravenously every cnng130 mL/hr, intravenous, Continuous PRN, blood glucose less [...] VESICANT (RED) Warning: HYPERTONIC solution.LORazepam (3 sources)BenzodiazepineStart: 26-90-2656erar 1 tablet by mouth every four hours as neededLORazepam (ATIVAN) tablet 2 mgStart: 95-87-5846sbuq 1 tablet by mouth every four hours as neededLORazepam (ATIVAN) tablet 3 mgStart: 06-08-2024 take 1 tablet by mouth every four hours as neededLORazepam (ATIVAN) tablet 1 mg losartan potassium 100 mg oral tablet (3 sources)Angiotensin 2 Receptor BlockerStart: 05-25-2023 End: 20-55-3105geqm 1 tablet by mouth in the morninglosartan (Cozaar) 100 MG tablet Indications: Chronic systolic heart failure (HCC) , Primary hypertension Take 1 tablet (100 mg) by mouth in the morning. 90 tablet 06/28/2023 Ebvisn46 ml magnesium sulfate 40 mg/ml injection (2 [...] needed.melatonin 5 mg oral tablet (1 source)Start: 62-14-1402tpgb 5 mg by mouth once daily5 mg, oral, Nightly, First dose [place] Mon06/07/24 [place] [address] ml metoprolol tartrate 1 mg/ml injection (4 sources)beta-Adrenergic BlockerStart: 91-01-1870ywkp 5 mg intravenously every six hours as needed5 mg, intravenous, Every 6 hours PRN, For heart rate greater than 120, Starting on 06/08/24 at 1711, Look-alike/sound-alike medication - verify indication for use.Start: 05-24-2023 End: 81-44-5274iixh 1 tablet by mouth every twenty-four hours in the morning metoprolol succinate XL (Toprol XL) 100 MG 24 hr tablet Indications: Chronic systolic heart failure(HCC) Take 1 tablet (100 mg) by mouth in the morning. Do not crush or chew.. 90 tablet 06/28/2023 Activemidodrine hydrochloride 5 mg oral tablet (2 sources)alpha-Adrenergic AgonistStart: 94-05-9173hrgb 5 mg by mouth three times daily5 mg, oral, 3 times daily, First dose on 06/09/24 at 1400, Hold if blood pressure is greater qeiz536 mmHg Look-alike/sound-alike medication - verify indication for use.Start: 06-09-2024 End: 54-73-3332syxw 5 mg by mouth once5 mg, oral, Once, On 06/09/24 at 1330, For 1 dose, Look-alike/sound-alike medication - verify indication for use. ejgekkqe-tsnp-TK-calcium &mins (THERAGRAN-M) 9 mg iron-400 mcg tablet 1 tablet (1 source)Start: 05-77-1966oqkh 1 tablet by mouth once daily as needed1 tablet, oral, Daily PRN, administer instead of IV MVI when patient tolerating oral diet, Startingon Mon06/07/24 at 0620polyethylene glycol 3350 57077 mg powder for oral solution (1 source)Osmotic LaxativeStart: g, oral, Daily PRN, constipation, Starting on Mon06/11/24 at 0753, Look-alike/sound-alike medication - verify indication for use. Dissolve 1 packet (17 gm) in 8 ounces of water, juice, soda, coffeeor tea.Potassium Chloride (8 sources)Start: 58-63-2078mlor 1 dose by mouth twice dailyPotassium Chloride (Zfu-Oijz-Wxy 10) mEq, Oral, BID, Refills(s) 0 Start Date: 06/25/24 Status: Ordered Medication Dispense Status: Completed Total Allowed Fills: 1 Fills Dispensed: 0Start: 21-29-0995Fmwadhbek Chloride (Hwy-Egdt-Mjp 10) mEq, Oral, BID, Refills(s) 0 Start Date: 06/25/24 Status: Ordered Repeat number: 1Start: 22-80-9856Tclgndiqg Chloride (Znr-Pvqr-Dnr 10) mEq, Oral, BID, Refills(s) 0 Start Date: 06/25/24 Status: OrderedStart: 33-52-0259qeggbpvyc chloride (K-TAB,KLOR-CON) CR tablet 20-40 mEqStart: 22-55-4333qfpxdnusz chloride (K-TAB,KLOR-CON) 10 MEQ CR tablet TAKE 2 TABLETS BY MOUTH EVERY DAY 180 tablet 1 09/16/2021 ActiveQUEtiapine 25 mg oral tablet (3 sources)Atypical AntipsychoticStart: 52-58-9462duor 1 tablet by mouth once dailyQUEtiapine (SEROquel) 25 mg tablet Take 1 tablet (25 mg total) by mouth nightly. 30 tablet 06/12/2024 Activesacubitril 24 mg / valsartan 26 mg oral tablet (3 sources)Angiotensin 2 Receptor BlockerStart: 18-86-1335chxc 1 tablet by mouth twice dailyEntresto 24 mg-26 mg oral tablet tab(s), Oral, BID, Refill(s) 0 Start Date: 07/19/24 Status: OrderedMedication Dispense Status: Completed Total Allowed Fills: 1 Fills Dispensed: 0spironolactone 50 mg oral tablet (3 sources)Aldosterone AntagonistStart: 05-24-2023 End: 62-21-4627dwlc 1 tablet by mouth in the morningspironolactone (Aldactone) 50 MG tablet Indications: Chronic systolic heart failure (HCC) Take 1 tablet (50 mg) by mouth in the morning. 90 tablet 06/28/2023 Activesulfamethoxazole 800 mg / trimethoprim 160 mg oral tablet (1 source)Dihydrofolate Reductase Inhibitor Antibacterial, Sulfonamide AntimicrobialStart: 10-21-2024 End: 65-64-4767eosr 1 tablet by mouth twice dailyBactrim D.S. 800 mg-160 mg Tab 1 tab(s), Oral, BID for 3 day(s), 6 tab(s), Refill(s) 0, [facility] [id number], 180, cm, 07/19/24 13:40:00 EDT, Height/Length Dosing, 80, kg, 07/19/24 13:40:00 EDT, Weight Dosing Start Date: 10/21/24 Stop Date: 10/24/24 Status: Ordered Quantity: 6.0 Unit: tab(s) Repeat number: 1tamsulosin hydrochloride 0.4 mg oral capsule (7 sources)alpha-Adrenergic BlockerStart: 45-10-3978avzzpdrcgl 0.4 mg Cap 0.4 mg = 1 cap(s), Refills(s) 0 Start Date: 06/25/24 Status: Ordered Medication Dispense Status: Completed Total Allowed Fills: 1 Fills Dispensed: 0Start: 38-33-7310uecz 1 capsule by mouth once dailytamsulosin (FLOMAX) 0.4 mg capsule Take 1 capsule (0.4 mg total) by mouth nightly. 30 capsule 06/12/2024 Activethiamine 100 mg oral tablet (7 sources)Start: 06-99-0776snzh 1 mg by mouth once dailythiamine 100 mg Tab mg tab(s), Oral, Daily, Refills(s) 0 Start Date: 06/25/24 Status: Ordered Medication Dispense Status: Completed Total Allowed Fills: 1 Fills Dispensed: 0Start: 95-35-1662gvum 1 tablet by mouth in the morningthiamine HCl (VITAMIN B-1) 100 mg tablet Take 1 tablet (100 mg total) by mouth in the morning. 30 tablet 06/13/2024 ActiveStart: 13-51-9412ouvp 1 tablet by mouth in the morningthiamine HCl (VITAMIN B-1) 100 mg tablet Take 1 tablet (100 mg total) by mouth in the morning. 30 tablet 06/13/2024Start: 28-48-6675xtcv 100 mg by mouth once sduhc338 mg, oral, Daily, First dose on Mon06/07/24 at 0630, Look-alike/sound-alike medication - verify indication for use. Completed/Discontinued Medications MedicationDrug Class(es)DatesSig (Normalized)Sig (Original)20 ml albumin human, mcc 250 mg/ml injection (2 sources)Human Serum AlbuminStart: [...] (3 sources)Dihydropyridine Calcium Channel BlockerStart: 12-30-2021 End: 56-15-9046dwyp 10 mg by mouth once daily10 mg, oral, Daily, First dose on Mon06/08/24 at 1100, HOLD FOR SYSTOLIC BLOOD PRESSURE LESS THAN 100 MMHG Look-alike/sound-alike medication - verify indication for use. Avoid grapefruit juice.aspirin 81 mg delayed release oral tablet (2 sources)Platelet Aggregation Inhibitor, Nonsteroidal Anti-inflammatory Drug End: 48-49-9878qust 1 tablet by mouth in the morningaspirin 81 mg Take 1 tablet (81 mg total) by mouth in the morning. 06/12/2024 Discontinued (Stop Taking at Discharge)0.4 ml enoxaparin sodium 100 mg/ml prefilled syringe (1 source)Low Molecular Weight HeparinStart: 06-10-2024 End: 71-71-2849fdanib 40 mg by subcutaneous injection once daily40 mg, subcutaneous, Daily, First dose on Mon06/10/24 at 0900, Look-alike/sound-alike medication - verify indication for use.gadoteridoL (PROHANCE) injection 6.22 mmol 12.44 mL (1 source)Start: 06-10-2024 End: .22 mmol (0.1 mmol/kg 62.2 kg), intravenous, Once in imaging, contrast, MRI, Starting on Mon06/10/24 at 0211, For 1 dose, VESICANT (RED), Indications: magnetic resonance wwkzbky941 ml heparin sodium, porcine 50 unt/ml injection [...] mg/ml cartridge (3 sources)beta-Adrenergic BlockerStart: 06-07-2024 End: 41-68-608623 mg, intravenous, Once, On Mon06/07/24 at 2315, For 1 dose, Look-alike/sound-alike medication - verify indication for use.Start: 02-23-2022 End: 70-75-7835llwj 2 tablets by mouth in the morning, then take 2 tablets by mouth at bedtimelabetaloL (NORMODYNE) 200 mg tablet Take 2 tablets (400 mg total) by mouth in the morning and 2 tablets (400 mg total) before bedtime. 120 tablet 5 02/23/2022 06/12/2024 Discontinued (Stop Taking at Discharge)lactulose 667 mg/ml oral solution (1 source)Osmotic LaxativeStart: 06-07-2024 End: 24-30-700382 g, oral, 2 times daily, First dose on Mon06/07/24 at 1300, HOLD IF PATIENT HAS HAD 2 BOWEL MOVEMENTS IN A DAY Titrate for 2-3 BM per vbf196 ml metroNIDAZOLE 5 mg/ml injection (2 sources)Nitroimidazole AntimicrobialStart: 06-07-2024 End: 70-42-2684kkfg 500 mg intravenously every twelve edndf278 mg, intravenous, at 100 mL/hr, Administer over 60 Minutes, Every 12 hours, First dose (after last modification) on Mon06/11/24 at 2100, For 1 day, Look-alike/sound-alike medication - verify indication for use., Indication: Intra-abdominalolmesartan medoxomil 40 mg oral tablet (2 sources)Angiotensin 2 Receptor BlockerStart: 08-18-2020 End: 37-15-8838xskj 1 tablet by mouth once dailyolmesartan (BENICAR) 40 mg tablet Take 1 tablet (40 mg total) by mouth daily. 30 tablet 5 08/18/2020 06/12/2024 Discontinued (Stop Taking at Discharge)1000 ml sodium chloride 9 mg/ml injection (6 sources)Start: 06-10-2024 End: mL, intravenous, Once in imaging, pre/post contrast, MRI, Starting on Mon06/10/24 at 0211, For 1 doseStart: 06-10-2024 End: 32-56-999255 mL, intravenous, Once in imaging, line care, MRI, Starting on Mon06/10/24 at 0211, For 1 doseStart: mL, intravenous, Every 12 hours scheduled, First dose on Mon06/07/24 at 0900Start: mL, intravenous, As needed, line care, before and after each intermittent use, Starting on Mon06/07/24 at 0530Start: 17-43-3986ndjt 20 mL intravenously every hour as fyuvyf75 mL/hr, intravenous, Continuous PRN, to maintain patency of lines, Starting on Mon06/07/24 at 0530Start: 76-13-0805floz 25 mL intravenously every hour as mL, intravenous, at 100 mL/hr, Administer over 15 Minutes, As needed, line care, line care afterIVPB administration, Starting on Mon06/07/24 at 0530 Problems Active Problems Problem ClassificationProblemDateDocumented DateEpisodic/ChronicAcute cerebrovascular disease (4 sources)Cerebrovascular soqmzxuh77-64-4282PctrqngRyszykm dysrhythmias (12 sources)Unspecified atrial fibrillation; Translations: [Paroxysmal atrial fibrillation]Onset: 150224-06-0594GswbcodPklqegf dysrhythmias (3 sources)Bradycardia; Translations: [Bradycardia, unspecified]Onset: 890748-59-0559TxfpqgnjUmoetzq kidney disease (4 sources)Chronic kidney disease stage 3A ; Translations: [Stage 3a chronic kidney disease (HCC)]Onset: 036518-00-8406OpccxqqGxxhuqhyup heart failure; nonhypertensive (6 sources)Chronic systolic heart failure; Translations: [Chronic systolic (congestive) heart failure]Onset: 146347-33-1802TjjiuviHfaozjaer of lipid metabolism (3 sources)Pure hypercholesterolemia; Translations: [Pure hypercholesterolemia, unspecified]54-40-4424VrbkszfAvczdzeap of lipid metabolism (1 source)Pure hypercholesterolemia, unspecified; Translations: [PURE HYPERCHOLESTEROLEMIA UNSPEC]Onset: 78-32-3536Hnkeqmisx hypertension (10 sources)Essential (primary) hypertension; Translations: [Essential hypertension]Onset: 12-19-2018 Resolved: 784854-84-1055NhnqqlrUashfhkkpbpod symptoms and ill-defined conditions (8 sources)Hematuria, unspecified; Translations: [Retention of urine]Onset: 728742-12-7519YiusksghXhocmtoovuc of prostate (4 sources)Benign prostatic hypertrophy with outflow obstruction; Translations: [Benign prostatic hyperplasia with lower urinary tract symptoms]Onset: 310450-20-3933AvlnruzBxvdylrsawgp with complications and secondary hypertension (3 sources)Hypertensive heart disease; Translations: [Hypertensive heart disease without heart failure]91-64-1512TqqdvexYztgnna and fatigue (1 source)Other fatigue; Translations: [OTHER FATIGUE]Onset: 23-32-7007Rwycmxtb Mood disorders (4 sources)Depressive ugflufgj70-85-6697HmwidryCotbakhgscmcii (4 sources)Tcsikdhzb64-82-6180KwkhkbgZsysd aftercare (1 source)watermaster (current) use of anticoagulants; Translations: [SNF CURRNT USE ANTICOAGULANTS]Onset: 32-35-0510JjqvesrdFbbpu aftercare (1 source)watermaster (current) use of aspirin; Translations: [UX ENGINEER CURRENT USE OF ASPIRIN]Onset: 42-07-3650IqqsqexnOxrbb aftercare (1 source)Other custodial (current) drug therapy; Translations: [OTH SNF CURRENT DRUG THERAPY]Onset: 02-37-9379WiuurrepEarcz and ill-defined heart disease (4 sources)Heart egjeqfv32-38-4068LgpsdjaVsjhp diseases of kidney and ureters (1 source)Secondary hyperparathyroidism; Translations: [Secondary hyperparathyroidism of renal origin]75-86-2835PsqgxejWsraw liver diseases (4 sources)Disease of -12-6666DunsmupPcdhp nervous system disorders (3 sources)Disorder of brain; Translations: [Encephalopathy, unspecified]Onset: 729695-87-0728KtlixjvWifuh nervous system disorders (1 source)Encephalopathy, unspecified; Translations: [Encephalopathy, unspecified]Onset: 43-34-2483VllyiskPkdqs screening for suspected conditions (not mental disorders or infectious disease) (3 sources)Electrocardiogram abnormal; Translations: [Abnormal electrocardiogram [ECG] [EKG]]Onset: 020101-53-8826ZjdxypjqLhpeawat codes; unclassified (1 source)Pain, unspecified; Translations: [Pain, unspecified]Onset: 06-07-2024 EpisodicUnclassified (1 source)Nadia AMSOnset: 17-01-8619Spugipnxygnu (1 source)Acute EncephalopathyOnset: 35-80-7960Tkoxfvchcoxb (3 sources)Patient encounter -52-7032Qukmsoc tract infections (1 source)Acute cystitis with hematuria; Translations: [ACUTE CYSTITIS WITH HEMATURIA]Onset: 14-89-4094Kckcvdcg Past or Other Problems Problem ClassificationProblemDateDocumented DateEpisodic/Chronic Administrative/social admission (3 sources)Patient encounter status; Translations: [Persons encountering health services in other specified circumstances]Onset: 470472-96-8797Dlgbdcpf Deficiency and other anemia (3 sources)Normocytic anemia; Translations: [Anemia, unspecified]Onset: 617598-84-2777CjquxmnuPdcncfdjsl and other anemia (3 sources)Iron deficiency anemia; Translations: [Iron deficiency anemia, unspecified]Onset: 857911-79-6439ZgyczjkwHhpkc and electrolyte disorders (6 sources)Dehydration; Translations: [Hypokalemia]Onset: EpisodicOther diseases of veins and lymphatics (3 sources)Venous insufficiency of leg; Translations: [Venous insufficiency (chronic) (peripheral)]Onset: 939842-02-3508DmlqqiflXzvsmei (2 sources)Syncope; Translations: [Syncope and collapse]Onset: 09-15-2017 66-24-0534Wpnyxzkj Results Test NameValueInterpretationReference RangeFacilityUrine Cultureon 11-20-2024 Bacteria identified Cx Nom (U)ORGANISM: Gram Negative Bacilli (O:GNB) Tiff Count 50,000 Organism Comments . Send Test to Ref. Lab Sent to Reference Lab for Sensitivity Testing ORGANISM: Staphylococcus aureus (O:STAAUR) Tiff Count >100,000 Organism #1 - Pantoea species The organism isolated most closely resembles the identity indicated above. Antibiotic Amoxicillin/Clavulanic Acid S Cefepime S Cefoxitin I Cefpodoxime S Ertapenem S Levofloxacin S Tetracycline S S = Susceptible; I = Intermediate; R = Resistant Performed at: [place] [id number] Sap Bw Consultant: Yohan Gonzalez PhD, Phone: [phone] Aerobic KANWAL Charge (PCMIC38) SUSCEPTIBILITY ORGANISM: O:STAAUR [...] RESISTANT TO ALL B-LACTAM DRUGS. PERFORMED BY: [place] [address] PATHOLOGIST SOFTWARE ENGINEER MOBILE RITU DALEY M.D.[facility] Physician GroupComment on above: Performed By: #### CUU #### [place] [address] USAAmbulatory Visit Summaryon 31-86-1043Mxkjtufcrh Visit SummaryAmbulatory Visit Summary JOHNATHAN RODNEY :1955 [...] 40 mg Tab) potassium chloride (Potassium Chloride (Mbl-Kdhb-Ogy 10)) sacubitril-valsartan (Entresto 24 mg-26 mg oral tablet) sulfamethoxazole-trimethoprim (Bactrim D.S. 800 mg-160 mg Tab) tamsulosin (tamsulosin 0.4 mg Cap) thiamine (thiamine 100 mg Tab) Procedures Performed None. What to do next Scheduled Follow-Up Appointments Monday 10:30 AM EDT Where: [facility] Monday 2:45 PM EDT Where: [facility] Medications What How Much When Instructions New sulfamethoxazole-trimethoprim (Bactrim D.S. 800 mg-160 mg Tab) 1 Tablets By Mouth 2 times a dayDuration: 3 Days Pickup at [facility] [id number] Unchanged acetaminophen (acetaminophen 325 mg Tab) By [...] one hour prior to procedure Pickup at [facility] [id number] Unchanged folic acid (folic acid 1 mg Tab) 1 Tablets Unchanged furosemide (furosemide 40 mg Tab) 1 Tablets Unchanged potassium chloride (Potassium Chloride (Zam-Pmqi-Yri 10)) By Mouth 2 times a day Unchanged sacubitril-valsartan (Entresto 24 mg-26 mg oral tablet) By Mouth 2 times a day Unchanged tamsulosin (tamsulosin 0.4 mg Cap) 1 Capsules Unchanged thiamine (thiamine 100 mg Tab) By Mouth Every day Pharmacy Information [facility] [id number]: [address], [place] [id number] [phone] Allergies No Known Medication Allergies Problems Ongoing [...] you for choosing us for your care. [facility] Summaryon 05-37-4395Nbdmutotuv Visit SummaryAmbulatory Visit Summary JOHNATHAN RODNEY :1955 [...] 40 mg Tab) potassium chloride (Potassium Chloride (Qhc-Gnnh-Imw 10)) sacubitril-valsartan (Entresto 24 mg-26 mg oral tablet) tamsulosin (tamsulosin 0.4 mg Cap) thiamine (thiamine 100 mg Tab) Procedures Performed None. What to do next Scheduled Follow-Up Appointments Monday. 2024 8:30 AM EDT With: DONAL MCGARRY MD Where: [facility] [address] [place] [address]- Medications What How Much When Instructions Unchanged [...] 1 Tablets Unchanged potassium chloride (Potassium Chloride (Fxc-Itgm-Avr 10)) By Mouth 2 times a day [...] you for choosing us for your care. SkipSalem [facility] Medical CenterUrology Office/Clinic Noteon [id number] Office/Clinic NoteUrology Office/Clinic Note Chief Complaint f/u HPI Staff 68 year old male patient here to discuss his BPH with obstruction/lower urinary tract symptoms. Pt saw 06/25/24 for SCRIPT COORDINATOR appt. Previous Dx: urinary retention, Other obstructive [...] urinary tract symptoms. Pt saw 06/25/24 for SCRIPT COORDINATOR appt. Patient is accompanied by daughter today. [...] with voice recognition artificial intelligence software, specifically [employer], [employer] and or [employer]. Substitutions may have occurred due to the [...] mg oral tablet, O (more content not included)...TriHealthComment on above:Result Comment: Electronically Signed By: DONAL MCGARRY MD\.br\Date and Time Signed: 07/19/24 14:25 EDT\.br\Electronically Co-Signed By: Brennan Fish\.br\Date and Time Co- Signed: 07/19/24 13:57 EDTUrology Office/Clinic Noteon [id number] Office/Clinic NoteUrology Office/Clinic Note Chief Complaint F/u to [facility] and [facility] HPI Staff New pt here for hospital f/u due to urinary retention. Never seen in our office before (verified onDataArk). [facility] ER 06/05/24 due to confusion/AMS and not feeling well. No evidence of UTI. Drug screen was positive for cannabinoids. 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 Found to have lactic acidosis causing a-fib and RVR. Was admitted to ICU. Then transferred to [place]. -Catheter was placed 06/05/24 but I cannot find documentation of PVR prior or output when they put the cath in. -Sole Stapler Welt on admission 2.11 (typical looks in the mid 1s). Improved during hospital stay. -Abd US 06/05/24 showed dilated right renal pelvis and calyces. L side nl. -CT 06/07/24 showed simple 1.6cm LIP cyst. Extensive bilat perinephric edema. No collecting system dilation or evidence of ureteral calc. -Urine cx 1/31/25 neg. Blood cx neg x 2. Currently at [facility] but plan is for dc this Monday. [...] E&M of New Patient Moderate 45-59 Min 40225 2. BPH with obstruction/lower urinary tract symptoms [...] E&M of New Patient Moderate 45-59 Min 37624 3. Prostate cancer screening (Z12.5: Encounter for screening for malignant neoplasm of prostate) None on Clinisync. Will check w PCP office. If they don't have any, will need to update (perhaps after arenas removed?) Ordered: E&M of New Patient Moderate 45-59 Min 99172 Other obstructive and reflux uropathy (N13.8: Other obstructive and reflux uropathy) Follow-up With When Contact Information [facility] [address] [place] [address] Business (1) Additional Instructions: our machine shorthand teacher will be contacting you for follow-up Patient [...] Tab, 40 mg= 1 tab(s) Potassium Chloride (Iie-Lcjt-Lcv 10), Oral, BID tamsulosin 0.4 mg Cap, 0.4 mg= 1 cap(s) thiamine 100 mg Tab, Oral, Daily Allergies No Known Medication Allergies Social History Tobacco Never (less than 100 in lifetime) Tobacco Use:. Never Smokeless Tobacco Use:. Household to (more content not included)...[facility] Comment on above:Result Comment: Electronically Signed By: KIKI OLIVIER PA-C\Date and Time Signed: 06/26/2511:05 ESTAmbulatory Visit Summaryon [id number] Visit SummaryAmbulatory Visit Summary JOHNATHAN RODNEY :1955 [...] 40 mg Tab) potassium chloride (Potassium Chloride (Lnq-Puah-Raz 10)) tamsulosin (tamsulosin 0.4 mg Cap) thiamine [...] 1 Tablets Unchanged potassium chloride (Potassium Chloride (Oze-Fvxu-Mfm 10)) By Mouth 2 times a day [...] you for choosing us for your care. [facility]HealthCBC AND AUTO DIFFon 06-12-2024 ABSOLUTE BASOPHIL0.1 X10E9/LNormal0.0-0.2PAvita Health SystemComment on above:Performed By: #### 02948-3, 2131-9, PINR, 05447-0, AHP, CMP, THYR, FEPR, CBCA, 74200-8, 94071-1, 1967-11, 2283-12, 2275- #### [facility] ([id number]) [address], [address] [place], [place] [address]OIEWYNPB NEUTROPHIL3.4 X10E9/LNormal1.5-6.6ProVan Wert County HospitalComment on above:Performed By: #### 43339-7, 9, PINR, 51460-2, AHP, CMP, THYR, FEPR, CBCA, 58769-6, 25742-9, 1967-11, 2283-12, 2275-08 #### [facility] ([id number]) [address], [address] [place], [place] [address]Ydrqoolaw/100 WBC (Bld)2.5 %NormalProVan Wert County Hospital Comment on above:Performed By: #### 13088-4, 9, PINR, 91823-9, AHP, CMP, THYR, FEPR, CBCA, 88455-4, 14473-7, 1967-11, 2283-12, 2275-08 #### [facility] ([id number]) [address], [address] [place], [place] [address]Vurkcfvdtcf (Bld) [#/Vol]0.2 10*3/uLNormal0.0-0.4ProVan Wert County HospitalComment on above:Performed By: #### 51936-8, 9, PINR, 80062- 9, AHP, CMP, THYR, FEPR, CBCA, 97181-0, 26014-1, 1967-11, 2283-12, 2275-08 #### [facility] ([id number]) [address], [address] [place], [place] [address]Dsyfrfreude/100 WBC (Bld)4.1 %NormalProMedica Joint [facility] Comment on above:Performed By: #### 21818-9, 2131-9, PINR, 71185-6, AHP, CMP, THYR, FEPR, CBCA, 52191-1, 60099-7, 1967-11, 8, 2275-4 #### [facility] ([id number]) [address], [address] [place], [place] [address]Gsjcexyesxg distribution width (RBC) [Ratio]22.9 %High11.5-15.0 [facility] Memorial HospitalComment on above:Performed By: #### 10156-4, 2132-01, PINR, 82344-5, AHP, CMP, THYR, FEPR, CBCA, 31107-0, 24373-3, 1967-11, 2283-12, 2275- #### [facility] ([id number]) [address], [address] [place], [place] [address]ZLWGCRVF4+AbnormalNONEProMedica [facility] Township District Memorial HospitalComment on above: Performed By: #### 24496-8, 9, PINR, 27221-0, AHP, CMP, THYR, FEPR, CBCA, 20459-3, 03101-4, 1967-11, 2283-12, 2275-4 #### [facility] ([id number]) [address], [address] [place], [place] [address]Ieanqveqww (Bld) [Volume fraction]31.1 %Fzh80-63WmzUnmvrl [facility] Memorial HospitalComment on above:Performed By: #### 70965-0, 9, PINR, 45528-7, AHP, CMP, THYR, FEPR, CBCA, 92603-2, 59301-8, 1967-11, 2283-12, 2275-4 #### [facility] ([id number]) [address], [address] [place], [place] [address]Mxidztmksv (Bld) [Mass/Vol]9.9 g/dLLow13.0-17.0ProVan Wert County HospitalComment on above:Performed By: #### 13152-9, 9, PINR, 01701-7, AHP, CMP, THYR, FEPR, CBCA, 21698-1, 40878-4, 1967-7, 2283-8, 6-4 #### [facility] ([id number]) [address], [address] [place], [place] [address]Oyxgikxyzhr (Bld) [#/Vol]0.6 10*3/uLLow1.0-3.5ProMedKettering Health DaytonComment on above:Performed By: #### 55338-4, 2132-01, PINR, 61810-0, AHP, CMP, THYR, FEPR, CBCA, 97672-4, 33736-9, 1967-11, 2283-12, 2275-4 #### [facility] ([id number]) [address], [address] [place], [place] [address]Caiyqxxvlrq/100 WBC (Bld)13.2 %NormalMartin Memorial Hospital Comment on above:Performed By: #### 18756-0, 2132-01, PINR, 74162-2, AHP, CMP, THYR, FEPR, CBCA, 83956-8, 96570-6, 1967-11, 2283-12, 2275-4 #### [facility] ([id number]) [address], [address] [place], [place] [address]IAL (RBC) [Entitic mass]23.1 zoHch06-00LhjGyzvueMartin Memorial Hospital Comment on above:Performed By: #### 83056-4, 2132-01, PINR, 55632-9, AHP, CMP, THYR, FEPR, CBCA, 27453-4, 89903-7, 1967-11, 2283-12, 6-4 #### [facility] ([id number]) [address], [address] [place], [place] [address]WEQW (RBC) [Mass/Vol]31.8 g/qOUvb64-71DveLpwkjyMartin Memorial Hospital Comment on above:Performed By: #### 14095-9, 9, PINR, 69212-3, AHP, CMP, THYR, FEPR, CBCA, 73754-6, 01739-4, 1967-, 2283-, 2275- #### [facility] ([id number]) [address], [address] [place], [place] [address]MRQ (RBC) [Entitic vol]73 jBMdz54-455SbgNeiwrmMartin Memorial Hospital Comment on above:Performed By: #### 94605-5, 9, PINR, 26070-1, AHP, CMP, THYR, FEPR, CBCA, 92491-0, 32850-4, 1967-, 2283-12, 2275- #### [facility] ([id number]) [address], [address] [place], [place] [address]Qxcuziwzt (Bld) [#/Vol]0.4 10*3/uLNormal0-0.9Martin Memorial HospitalComment on above:Performed By: #### 30127-9, 9, PINR, 43465-1, AHP, CMP, THYR, FEPR, CBCA, 45677-9, 56067-5, 1967-11, 2283-12, 2275- #### [facility] ([id number]) [address], [address] [place], [place] [address]Acyirflge/100 WBC (Bld)8.5 %NormalMartin Memorial Hospital Comment on above:Performed By: #### 23464-2, 9, PINR, 04201-6, AHP, CMP, THYR, FEPR, CBCA, 21690-1, 91840-7, 1967-11, 2283-12, 2275- #### [facility] ([id number]) [address], [address] [place], [place] [address]Xkqhnwsmztb/100 WBC (Bld)71.7 %NormalProUniversity Hospitals Beachwood Medical Centerca [facility] Comment on above:Performed By: #### 42075-3, 9, PINR, 21829-5, AHP, CMP, THYR, FEPR, CBCA, 21260-2, 26335-9, 1967-11, 2283-12, 2275- #### [facility] ([id number]) [address], [address] [place], [place] [address]MCBBXLVYQ8+AbnormalNONEProMedica [facility] Township District Memorial HospitalComment on above:Performed By: #### 90220-5, 2132-01, PINR, 23518-9, AHP, CMP, THYR, FEPR, CBCA, 31669-9, 86887-5, 1967-11, 2283-12, 2275- #### [facility] ([id number]) [address], [address] [place], [place] [address]Hzlunufs mean volume (Bld) [Entitic vol]8.0 fLNormal7-12 [facility] Memorial HospitalComment on above:Performed By: #### 72395-6, 2132-01, PINR, 79926-3, AHP, CMP, THYR, FEPR, CBCA, 95158-2, 83394-7, 1967-11, 2283-12, 2275- #### [facility] ([id number]) [address], [address] [place], [place] [address]Veyehjvbq (Bld) [#/Vol]226 10*3/sCXqiape131-591MhfHyppwz [facility] HospitalComment on above:Performed By: #### 82203-7, 9, PINR, 22029-3, AHP, CMP, THYR, FEPR, CBCA, 55371-5, 96075-2, 1967-11, 2283-12, 2275- #### [facility] ([id number]) [address], [address] [place], [place] [address]HFNWKFYKTXOJV9+AbnormalNONEProMedica [facility] District Memorial HospitalComment on above:Performed By: #### 76399-6, 2131-9, PINR, 98811-8, AHP, CMP, THYR, FEPR, CBCA, 37566-9, 71510-1, 1967-11, 2283-12, 2275-4 #### [facility] ([id number]) [address], [address] [place], [place] [address]BSP COUNT4.27 X10E12/LNormal4.10-5.70ProVan Wert County Hospital Comment on above:Performed By: #### 55715-0, 9, PINR, 38712-6, AHP, CMP, THYR, FEPR, CBCA, 68547-6, 86962-3, 1967-11, 2283-12, 2275- #### [facility] ([id number]) [address], [address] [place], [place] [address]TKMMKGHS3+AbnormalNONEProMedica [facility] Township District Memorial HospitalComment on above: Performed By: #### 86509-7, 9, PINR, 70379-6, AHP, CMP, THYR, FEPR, CBCA, 13619-4, 47048-4, 1967-11, 2283-12, 2275-4 #### [facility] ([id number]) [address], [address] [place], [place] [address]EBE (Bld) [#/Vol]4.7 10*3/uLNormal4.0-11.0ProVan Wert County HospitalComment on above:Performed By: #### 00947-9, 9, PINR, 32310-6, AHP, CMP, THYR, FEPR, CBCA, 08708-3, 59584-8, 1967-11, 2283-12, 2275-4 #### [facility] ([id number]) [address], [address] [place], [place] [address]RIH auto differentialon 21-11-7169Nrukbhojw (Bld) [#/Vol]0.1 10*3/uLProMedica Health SystemBasophils/100 WBC (Bld)2.5 %ProMedica Health SystemDacrocytes LM Ql (Bld)1+AbnormalNONE^NONEProMedica Health System Eosinophils (Bld) [#/Vol]0.2 10*3/uLProMedica Health SystemEosinophils/100 WBC (Bld)4.1 %ProMedica Health SystemErythrocyte distribution width (RBC) [Ratio] 22.9 %High11.5 - 15.0 %ProMedica Health SystemFragments LM Ql (Bld)1+Abnormal NONE^NONEProMedica Health SystemHematocrit (Bld) [Volume fraction]31.1 %Low39 - 49 %[facility]ica Health SystemHemoglobin (Bld) [Mass/Vol]9.9 g/dLLow13.0 - 17.0 g/dLSelect Medical OhioHealth Rehabilitation Hospital Health SystemInterpretation and review of laboratory results AbnormalMetroHealth Cleveland Heights Medical Centerca Health SystemLymphocytes (Bld) [#/Vol]0.6 10*3/uLLowProEncompass Health Rehabilitation Hospital Of North Alabama Health SystemLymphocytes/100 WBC (Bld)13.2 %[facility] Washington TownshipMCH (RBC) [Entitic mass]23.1 pgLow27 - 34 [facility] MemorialMCHC (RBC) [Mass/Vol] 31.8 g/dLLow32 - 36 g/dLKettering Health Washington TownshipMCV (RBC) [Entitic vol]73 fLLow80 - 100 [facility] SystemMonocytes (Bld) [#/Vol]0.4 10*3/uLProMedica Health SystemMonocytes/100 WBC (Bld)8.5 %[facility] Health SystemNeutrophils (Bld) [#/Vol]3.4 10*3/uLProMedica Health SystemNeutrophils/100 WBC (Bld)71.7 % [facility] Health SystemOvalocytes LM Ql (Bld)1+AbnormalNONE^NONEProMedica Health SystemPlatelet mean volume (Bld) [Entitic vol]8 fL7 - 12 fLPRiverside Methodist HospitalPlatelets (Bld) [#/Vol]226 10*3/uLKettering Health Washington TownshipPolychromasia LM Ql (Bld)1+AbnormalNONE^NONEKettering Health Washington TownshipRBC (Bld) [#/Vol]4.27 10*6/uL [facility] TownshipWBC corrected for nucl RBC Auto (Bld) [#/Vol]4.7ProDepartment of Veterans Affairs Medical Center-PhiladelphiaCBC AND AUTO DIFFon 46-92-4810YSTMARRC BASOPHIL0.1 X10E9/LNormal0.0-0.2PAvita Health SystemComment on above: Performed By: #### 71569-3, 9, PINR, 35206-1, AHP, CMP, THYR, FEPR, CBCA, 59983-7, 11855-7, 1967-, 2283-12, 2275- #### [facility] ([id number]) [address] [place] [address], [address] [place], [place] [address]Foiztgery/100 WBC (Bld)1.0 %NormalMartin Memorial Hospital Comment on above:Performed By: #### 41526-8, 2132-01, PINR, 87544-4, AHP, CMP, THYR, FEPR, CBCA, 75555-4, 41734-8, 1967-, 2283-, 2275-4 #### [facility] ([id number]) [address], [address] [place], [place] [address]Nyolghfzpor (Bld) [#/Vol]0.3 10*3/uLNormal0.0-0.4Martin Memorial HospitalComment on above:Performed By: #### 80096-1, 9, PINR, 32436- 9, AHP, CMP, THYR, FEPR, CBCA, 00454-1, 29144-1, 1967-11, 2283-12, 2275- #### [facility] ([id number]) [address], [address] [place], [place] [address]Adkyynwmpda/100 WBC (Bld)4.9 %NormalProUniversity Hospitals Beachwood Medical Centerca [facility] Comment on above:Performed By: #### 11953-2, 2131-9, PINR, 39491-5, AHP, CMP, THYR, FEPR, CBCA, 99260-0, 00987-8, 1967-11, 2283-12, 2275- #### [facility] ([id number]) [address], [address] [place], [place] [address]Bvtskidjhtd distribution width (RBC) [Ratio]23.5 %High11.5-15.0 [facility] Memorial HospitalComment on above:Performed By: #### 32519-9, 2132-01, PINR, 81122-8, AHP, CMP, THYR, FEPR, CBCA, 45588-3, 94761-8, 1967-11, 2283-12, 2275- #### [facility] ([id number]) [address], [address] [place], [place] [address]NSVJASZJ7+AbnormalNONEProMedica Des Arc HospitalComment on above: Performed By: #### 87470-9, 9, PINR, 44426-7, AHP, CMP, THYR, FEPR, CBCA, 32065-0, 50394-9, 1967-11, 2283-12, 2275- #### [facility] ([id number]) [address], [address] [place], [place] [address]Lebjkcfxkz (Bld) [Volume fraction]32.3 %Pyu29-88CsyDflrprVan Wert County HospitalComment on above:Performed By: #### 81510-2, 9, PINR, 00721-7, AHP, CMP, THYR, FEPR, CBCA, 63601-6, 34306-7, 1967-11, 2283-12, 2275- #### [facility] ([id number]) [address], [address] [place], [place] [address]Ldlrrzwkmh (Bld) [Mass/Vol]10.0 g/dLLow13.0-17.0ProVan Wert County HospitalComment on above:Performed By: #### 74367-1, 9, PINR, 43652-5, AHP, CMP, THYR, FEPR, CBCA, 55494-3, 06079-4, 1967-11, 2283-12, 2275-4 #### [facility] ([id number]) [address], [address] [place], [place] [address]CVHSDNBRBJH5+AbnormalNONEPAvita Health SystemComment on above:Performed By: #### 21554-0, 2132-01, PINR, 06769-1, AHP, CMP, THYR, FEPR, CBCA, 66213-7, 44016-0, 1967-11, 2283-12, 2275- #### [facility] ([id number]) [address], [address] [place], [place] [address]Suumiofbghw (Bld) [#/Vol]0.4 10*3/uLLow1.0-3.5PAvita Health SystemComment on above:Performed By: #### 65275-4, 9, PINR, 79930-2, AHP, CMP, THYR, FEPR, CBCA, 76618-0, 14160-2, 1967-11, 2283-12, 2275- #### [facility] ([id number]) [address], [address] [place], [place] [address]Seuhmaopjkm/100 WBC (Bld)6.9 %NormalProVan Wert County Hospital Comment on above:Performed By: #### 77238-2, 9, PINR, 82894-8, AHP, CMP, THYR, FEPR, CBCA, 04661-5, 91944-1, 1967-11, 2283-12, 2275- #### [facility] ([id number]) [address], [address] [place], [place] [address]IUA (RBC) [Entitic mass]22.7 hrSpt27-71XggVgkdsvMartin Memorial Hospital Comment on above:Performed By: #### 13322-7, 2-9, PINR, 06271-6, AHP, CMP, THYR, FEPR, CBCA, 04187-2, 62001-9, 1967-11, 2283-12, 2275- #### [facility] ([id number]) [address], [address] [place], [place] [address]PDBT (RBC) [Mass/Vol]31.1 g/uYApd71-27YthIbpnkmMartin Memorial Hospital Comment on above:Performed By: #### 64628-7, 2131-9, PINR, 90624-3, AHP, CMP, THYR, FEPR, CBCA, 29728-3, 25303-3, 1967-11, 2283-12, 2275-08 #### [facility] ([id number]) [address], [address] [place], [place] [address]QCF (RBC) [Entitic vol]73 zHQeb79-942RhpQjqdhbMartin Memorial Hospital Comment on above:Performed By: #### 65114-0, 2-9, PINR, 89848-4, AHP, CMP, THYR, FEPR, CBCA, 30963-1, 04144-2, 1967-11, 2283-12, 2275- #### [facility] ([id number]) [address], [address] [place], [place] [address]Myjzgifdo (Bld) [#/Vol]0.4 10*3/uLNormal0-0.9Martin Memorial HospitalComment on above:Performed By: #### 13382-0, 2131-9, PINR, 33532-7, AHP, CMP, THYR, FEPR, CBCA, 25266-3, 33101-5, 1967-11, 2283-12, 2275-08 #### [facility] ([id number]) [address], [address] [place], [place] [address]Flkzxoqgx/100 WBC (Bld)7.8 %NormalProVan Wert County Hospital Comment on above:Performed By: #### 21961-5, 2131-9, PINR, 56030-7, AHP, CMP, THYR, FEPR, CBCA, 44086-5, 86839-2, 1967-11, 2283-12, 2275- #### [facility] ([id number]) [address] [place], [place] [address]Dkffvphpjgv (Bld) [#/Vol]4.5 10*3/uLNormal1.5-6.6ProMedica [facility] Memorial HospitalComment on above:Performed By: #### 47212-0, 9, PINR, 16430- 9, AHP, CMP, THYR, FEPR, CBCA, 60195-6, 26729-9, 1967-11, 2283-12, 2275-08 #### [facility] ([id number]) [address] [place], [place] [address]NFVCRYQGU1+AbnormalNONEProMedica [facility] Township District Memorial HospitalComment on above:Performed By: #### 50942-8, 9, PINR, 04211-1, AHP, CMP, THYR, FEPR, CBCA, 31807-4, 85384-2, 1967-11, 2283-12, 2275-08 #### [facility] ([id number]) [address] [facility] [facility] [address], [address] [place], [place] [address]Azlujtzb mean volume (Bld) [Entitic vol]8.7 fLNormal7-12 [facility] Memorial HospitalComment on above:Performed By: #### 67360-3, 2131-9, PINR, 62647-3, AHP, CMP, THYR, FEPR, CBCA, 90387-4, 32698-4, 1967-11, 2283-, 2275- #### [facility] ([id number]) [address] [place] [address], [address] [place], [place] [address]Eothhjovu (Bld) [#/Vol]226 10*3/uQUkskyq439-807EvyEchdto Des Arc HospitalComment on above:Performed By: #### 30468-9, 9, PINR, 40858-6, AHP, CMP, THYR, FEPR, CBCA, 89738-7, 47390-6, 1967-11, 2283-12, 2275- #### [facility] ([id number]) [address] [place] [address], [address] [place], [place] [address]RVXQPEYBTHIJH8+AbnormalNONEProMedica Des Arc HospitalComment on above:Performed By: #### 43163-0, 9, PINR, 62708-4, AHP, CMP, THYR, FEPR, CBCA, 91751-3, 77371-6, 1967-11, 2283-12, 2275- #### [facility] ([id number]) [address] [place] [address], [address] [place], [place] [address]TGQ COUNT4.42 X10E12/LNormal4.10-5.70ProUniversity Hospitals Beachwood Medical Centerca [facility] Comment on above:Performed By: #### 21513-0, 9, PINR, 35045-1, AHP, CMP, THYR, FEPR, CBCA, 55022-0, 23233-0, 1967-11, 2283-12, 2275- #### [facility] ([id number]) [address] [place] [address], [address] [place], [place] [address]NGA ZTMBAGASYF38.4 %NormalProMedica Des Arc HospitalComment on above:Performed By: #### 32485-2, 9, PINR, 06902-2, AHP, CMP, THYR, FEPR, CBCA, 99039-4, 22237-2, 1967-11, 2283-8, 2275-4 #### [facility] ([id number]) [address], [address] [place], [place] [address]MER (Bld) [#/Vol]5.7 10*3/uLNormal4.0-11.0Martin Memorial HospitalComment on above:Performed By: #### 77367-8, 9, PINR, 41539-4, AHP, CMP, THYR, FEPR, CBCA, 85289-1, 29820-2, 1967-11, 2283-8, 2275- #### [facility] ([id number]) [address], [address] [place], [place] [address]BYA auto differentialon [id number] (Bld) [#/Vol]0.1 10*3/uLKettering Health Washington TownshipBasophils/100 WBC (Bld)1 %[facility] Eosinophils (Bld) [#/Vol]0.3 10*3/uLKettering Health Washington TownshipEosinophils/100 WBC (Bld)4.9 %[facility] TownshipErythrocyte distribution width (RBC) [Ratio] 23.5 %High11.5 - 15.0 %[facility] TownshipFragments LM Ql (Bld)1+Abnormal NONE^[facility] HospitalHematocrit (Bld) [Volume fraction]32.3 %Low39 - 49 %[facility] TownshipHemoglobin (Bld) [Mass/Vol]10 g/dLLow13.0 - 17.0 g/dL [facility] TownshipHypochromia Ql (Bld)1+AbnormalNONE^[facility] SystemInterpretation and review of laboratory resultsAbnormalKettering Health Washington TownshipLymphocytes (Bld) [#/Vol]0.4 10*3/uLLowOhio Valley Hospital System Lymphocytes/100 WBC (Bld)6.9 %[facility] TownshipMCH (RBC) [Entitic mass] 22.7 pgLow27 - 34 [facility] MemorialMCHC (RBC) [Mass/Vol]31.1 g/dLLow32 - 36 g/dLKettering Health Washington TownshipMCV (RBC) [Entitic vol]73 fLLow80 - 100 fL [facility] TownshipMonocytes (Bld) [#/Vol]0.4 10*3/[facility] Monocytes/100 WBC (Bld)7.8 %[facility] TownshipNeutrophils (Bld) [#/Vol]4.5 10*3/[facility] HospitalOvalocytes LM Ql (Bld)2+AbnormalNONE^[facility] HospitalPlatelet mean volume (Bld) [Entitic vol]8.7 fL7 - 12 [facility] SystemPlatelets (Bld) [#/Vol]226 10*3/[facility] Polychromasia LM Ql (Bld)1+AbnormalNONE^[facility] HospitalRBC (Bld) [#/Vol]4.42 10*6/[facility] Hospitalegmented neutrophils/100 WBC (Bld) 79.4 %[facility] TownshipWBC corrected for nucl RBC Auto (Bld) [#/Vol]5.7 [facility] HospitalCOMPREHENSIVE METABOLIC PANELon [id number] [Mass/Vol]3.4 g/dLNormal3.2-5.3PAvita Health System Comment on above:Performed By: #### 91730-5, 2132-01, PINR, 93947-7, AHP, CMP, THYR, FEPR, CBCA, 07772-6, 13485-7, 1967-11, 2283-12, 2275- #### [facility] ([id number]) [address], [address] [place], [place] [address]QGD [Catalytic activity/Vol]67 U/IPemjze11-672HpdHxppbbMartin Memorial HospitalComment on above:Performed By: #### 04198-6, 2132-01, PINR, 62720-5, AHP, CMP, THYR, FEPR, CBCA, 39970-5, 81980-4, 1967-11, 2283-12, 2275-08 #### [facility] ([id number]) [address], [address] [place], [place] [address]AED [Catalytic activity/Vol]21 U/LNormal0-40ProVan Wert County HospitalComment on above:Performed By: #### 08943-8, 9, PINR, 12193-1, AHP, CMP, THYR, FEPR, CBCA, 17020-8, 19560-2, 1967-11, 2283-12, 2275- #### [facility] ([id number]) [address], [address] [place], [place] [address]Seyhn gap [Moles/Vol]10 mmol/LNormal5-15ProVan Wert County HospitalComment on above:Performed By: #### 48710-9, 9, PINR, 84519-3, AHP, CMP, THYR, FEPR, CBCA, 92049-5, 27408-9, 1967-11, 2283-12, 2275-08 #### [facility] ([id number]) [address] [facility], [address] [place], [place] [address]OZE [Catalytic activity/Vol]28 U/LNormal0-41ProVan Wert County HospitalComment on above:Performed By: #### 46276-1, 9, PINR, 62368-7, AHP, CMP, THYR, FEPR, CBCA, 66839-7, 72751-5, 1967-11, 2283-12, 2275- #### [facility] ([id number]) [address] [facility], [address] [place], [place] [address]Nufjkwxyu [Mass/Vol]0.7 mg/dLNormal0.3-1.2ProMed[facility] District Memorial HospitalComment on above:Performed By: #### 69010-8, 9, PINR, 63574-4, AHP, CMP, THYR, FEPR, CBCA, 03785-4, , 1967-11, 2283-12, 2275-08 #### [facility] ([id number]) [address] [facility], [address] [place], [place] [address]Bipkykp [Mass/Vol]8.3 mg/dLLow8.5-10.5PAv[facility] Comment on above:Performed By: #### 98359-8, 9, PINR, 13892-6, AHP, CMP, THYR, FEPR, CBCA, 98203-7, 71610-0, 1967-11, 2283-12, 2275-08 #### [facility] ([id number]) [address] [facility], [address] [place], [place] [address]Cwjlagsm [Moles/Vol]105 mmol/OGvwxvw78-078YizPxgezm Toledo HospitalComment on above:Performed By: #### 09431-0, 2132-01, PINR, 16760-7, AHP, CMP, THYR, FEPR, CBCA, 62071-1, 43393-3, 1967-11, 2283-12, 2275-08 #### [facility] ([id number]) [address] [facility], [address] [place], [place] [address]AJ9 [Moles/Vol]26 mmol/UIgqscw34-69EilUhfvsrAvita Health System Comment on above:Performed By: #### 29238-4, 9, PINR, 94212-5, AHP, CMP, THYR, FEPR, CBCA, 90292-5, 61805-6, 1967-11, 2283-12, 2275-08 #### [facility] ([id number]) [address] [facility], [address] [place], [place] [address]Tnoiaexyla [Mass/Vol]1.23 mg/dLNormal0.60-1.30ProVan Wert County HospitalComment on above:Result Comment: METHOD TRACEABLE TO IDMS STANDARD Performed By: #### 08147-7, 2132-01, PINR, 75325-7, AHP, CMP, THYR, FEPR, CBCA, 80925-6, 42503-3, 1967-11, 2283-12, 2275-08 #### [facility] ([id number]) [address] [address] [place], [place] [address]VVU/1.73 sq M.predicted among non-blacks MDRD (S/P/Bld) [Vol rate/Area]64 mL/min/{1.73_m2}Normal>59ProVan Wert County HospitalComment on above: Result Comment: Reported eGFR is based on the CKD-EPI 2020 equation that does not use a race coefficient.Performed By: #### 08267-6, 2132-01, PINR, 59585-1, AHP, CMP, THYR, FEPR, CBCA, , , 1967-11, 2283-12, 2275-08 #### [facility] ([id number]) [address] [address]Yvrbtch [Mass/Vol]100 mg/lCGchr59-49SktKbvskqVan Wert County Hospital Comment on above:Performed By: #### 39844-3, 2132-01, PINR, 08416-8, AHP, CMP, THYR, FEPR, CBCA, , 53865-1, 1967-11, 2283-12, 2275-08 #### [facility] ([id number]) [address] [address] [place], [place] [address]Qvlwbbxzl [Moles/Vol]3.7 mmol/LNormal3.5-5.0ProVan Wert County HospitalComment on above:Performed By: #### 82487-5, 2132-01, PINR, 64609-0, AHP, CMP, THYR, FEPR, CBCA, , , 1967-11, 2283-12, 2275- #### [facility] ([id number]) [address] [facility], [facility] [address] [place], [place] [address]Maqdfhi [Mass/Vol]6.0 g/dLNormal6.0-8.0[facility] Comment on above:Performed By: #### 06908-6, 2131-9, PINR, 04436-3, AHP, CMP, THYR, FEPR, CBCA, 02272-2, 10010-5, 1967-, 2283-8, 2275-4 #### [facility] ([id number]) [address] [place] [address], [address] [place], [place] [address]Hirbdj [Moles/Vol]141 mmol/KLnlnou024-765KyxZqeqjg [facility] HospitalComment on above:Performed By: #### 44654-5, 2132-01, PINR, 52059-1, AHP, CMP, THYR, FEPR, CBCA, 58564-1, 14793-0, 1967-11, 2283-12, 2275-4 #### [facility] ([id number]) [address] [place] [address], [address] [place], [place] [address]Xvem nitrogen [Mass/Vol]27 mg/dLNormal5-27ProVan Wert County HospitalComment on above:Performed By: #### 21255-7, 2132-01, PINR, 42363-2, AHP, CMP, THYR, FEPR, CBCA, 89943-2, 27749-1, 1967-11, 2283-12, 2275- #### [facility] ([id number]) [address] [facility], [address] [place], [place] [address]Dnoaqhrrlznxl metabolic panelon 78-19-5866Ofgqlul [Mass/Vol]3.4 g/dL3.2 - 5.3 g/dLProMedica Health SystemALP [Catalytic activity/Vol]67 U/L39 - 130 U/LProMedica Health SystemALT No additional P-5'-P [Catalytic activity/Vol] 21 U/L0 - 40 U/LProMedica Health SystemAnion gap [Moles/Vol]10 mmol/L5 - 15 mmol/LProMedica Health SystemAST [Catalytic activity/Vol]28 U/L0 - 41 U/L [facility] TownshipBilirubin [Mass/Vol]0.7 mg/dL0.3 - 1.2 mg/dLOhio Valley Hospital SystemCalcium [Mass/Vol]8.3 mg/dLLow8.5 - 10.5 mg/dLKettering Health Washington TownshipChloride [Moles/Vol]105 mmol/L98 - 109 mmol/[facility] Health SystemCO2 [Moles/Vol]26 mmol/L22 - 32 mmol/[facility] SystemCreatinine [Mass/Vol] 1.23 mg/dL0.60 - 1.30 mg/dLKettering Health Washington TownshipComment on above:METHOD TRACEABLE TO IDTN STANDARDeGFR (CKD-EPI)non-race mkcywgvzo12- [facility] Regional Medical CenterComment on above: Reported eGFR is based on the CKD-EPI 2020 equation that does not use a race coefficient. Glucose [Mass/Vol]100 mg/sAKkfm49 - 99 mg/dLKettering Health Washington Township Interpretation and review of laboratory resultsAbnormalK[facility]tering Health [facility] Township Potassium [Moles/Vol]3.7 mmol/L3.5 - 5.0 mmol/[facility] SystemProtein [Mass/Vol]6 g/dL6.0 - 8.0 g/dLFormerly Hoots Memorial Hospitalodium [Moles/Vol]141 mmol/L134 - 146 mmol/[facility] SystemUrea nitrogen [Mass/Vol]27 mg/dL5 - 27 mg/dLMagee Rehabilitation HospitalHEMOGLOBINon 06-11-2024 Hemoglobin (Bld) [Mass/Vol]10.4 g/dLLow13.0-17.0Martin Memorial HospitalComment on above:Performed By: #### 14845-5, 2132-9, PINR, 26990-2, AHP, CMP, THYR, FEPR, CBCA, 49951-0, 71454-8, 1968-7, 2284-8, 2276-4 #### [facility] ([id number]) [address] [facility], [address] [place], [place] [address]Grtcanppqfgg 49-20-0448Sxsmwlibvh (Bld) [Mass/Vol]10.4 g/dLLow 13.0 - 17.0 g/dLKettering Health Washington TownshipHemoglobin (Bld) [Mass/Vol]on 06-11-2024 Interpretation and review of laboratory resultsAbnormalSt. Mary Medical CenterPOTASSIUMon 32-76-9335Wpakphuuv [Moles/Vol]4.0 mmol/L Normal3.5-5.0Martin Memorial HospitalComment on above:Performed By: #### 06872- 0, 2132-01, PINR, 70099-9, AHP, CMP, THYR, FEPR, CBCA, 97480-7, 86436-4, 1967-, 2283-, 2275- #### [facility] ([id number]) [address] [place] [address], [address] [place], [place] [address]Wzbbedmrjyo 03-35-4829Xxnrcckwb [Moles/Vol]4 mmol/L3.5 - 5.0 mmol/LPrZanesville City HospitalPotassium [Moles/Vol]on 96-94-0284RuiHqlbvlKettering Health Washington TownshipBASIC METABOLIC PANLon 07-25-5621Oeqxr gap [Moles/Vol]9 mmol/LNormal5-15 [facility] HospitalComment on above:Performed By: #### 70846-3, 2132-01, PINR, 20359-1, AHP, CMP, THYR, FEPR, CBCA, 55059-5, 31855-1, 1967-11, 2283-12, 2275-4 #### [facility] ([id number]) [address] [facility], [address] [place], [place] [address]Ornpxul [Mass/Vol]8.3 mg/dLLow8.5-10.5PAvita [facility] Comment on above:Performed By: #### 91373-6, 2132-01, PINR, 61688-3, AHP, CMP, THYR, FEPR, CBCA, 13996-2, 45369-4, 1967-, 2283-12, 2275-4 #### [facility] ([id number]) [address], [address] [place], [place] [address]Ffvxqmqc [Moles/Vol]103 mmol/PSnmcmw47-719UmdAdfwpc [place] HospitalComment on above:Performed By: #### 79392-5, 2132-01, PINR, 09862-0, AHP, CMP, THYR, FEPR, CBCA, 44508-7, 62419-8, 1967-11, 2283-12, 2275-08 #### [facility] ([id number]) [address], [address] [place], [place] [address]TC2 [Moles/Vol]28 mmol/MMhnjmc49-18NzqDtkzurAvita Health System Comment on above:Performed By: #### 99589-6, 2132-01, PINR, 38180-5, AHP, CMP, THYR, FEPR, CBCA, 33627-6, 22966-5, 1967-11, 2283-12, 2275-08 #### [facility] ([id number]) [address], [address] [place], [place] [address]Xkhsjmnmgf [Mass/Vol]1.28 mg/dLNormal0.60-1.30ProVan Wert County HospitalComment on above:Result Comment: METHOD TRACEABLE TO IDMS STANDARD Performed By: #### 36850-1, 2132-01, PINR, 70757-4, AHP, CMP, THYR, FEPR, CBCA, 94557-2, 97880-8, 1967-11, 2283-12, 2275-08 #### [facility] ([id number]) [address], [address] [place], [place] [address]UGB/1.73 sq M.predicted among non-blacks MDRD (S/P/Bld) [Vol rate/Area]61 mL/min/{1.73_m2}Normal>59ProVan Wert County HospitalComment on above: Result Comment: Reported eGFR is based on the CKD-EPI 2020 equation that does not use a race coefficient.Performed By: #### 52521-8, 9, PINR, 37731-0, AHP, CMP, THYR, FEPR, CBCA, 01461-9, 44897-2, 1967-11, 2283-12, 2275-08 #### [facility] ([id number]) [address], [address] [place], [place] [address]Wxlswdi [Mass/Vol]103 mg/gUMewk41-38OqvXijpkvVan Wert County Hospital Comment on above:Performed By: #### 92899-2, 2132-01, PINR, 99739-7, AHP, CMP, THYR, FEPR, CBCA, 26164-5, 68918-3, 1967-11, 2283-12, 2275- #### [facility] ([id number]) [address], [address] [place], [place] [address]Tewfwwqqd [Moles/Vol]3.4 mmol/LLow3.5-5.0ProVan Wert County HospitalComment on above:Performed By: #### 40868-9, 2132-01, PINR, 83387-0, AHP, CMP, THYR, FEPR, CBCA, , , 1967-11, 2283-12, 2275-08 #### [facility] ([id number]) [address], [address] [place], [place] [address]Aozlsz [Moles/Vol]140 mmol/XBsgaab450-686EjiNfsnkq [facility] HospitalComment on above:Performed By: #### 15139-8, 2132-01, PINR, 44568-0, AHP, CMP, THYR, FEPR, CBCA, 53344-0, 30935-3, 1967-11, 2283-12, 2275-08 #### [facility] ([id number]) [address], [address] [place], [place] [address]Uxed nitrogen [Mass/Vol]22 mg/dLNormal5-27ProVan Wert County HospitalComment on above:Performed By: #### 91380-1, 2132-01, PINR, 30023-0, AHP, CMP, THYR, FEPR, CBCA, 32050-3, 07276-6, 1967-, 2283-, 2275- #### [facility] ([id number]) [address] [facility], [address] [place], [place] [address]Tulez Metabolic Panelon 72-43-3824Abntm gap [Moles/Vol]9 mmol/L5 - 15 mmol/LPrConejos County Hospital Health SystemCalcium [Mass/Vol]8.3 mg/dLLow8.5 - 10.5 mg/dLOhio Valley Hospital SystemChloride [Moles/Vol]103 mmol/L98 - 109 mmol/L [facility] SystemCO2 [Moles/Vol]28 mmol/L22 - 32 mmol/LPrConejos County Hospital Health SystemCreatinine [Mass/Vol]1.28 mg/dL0.60 - 1.30 mg/dLKettering Health Washington Township Comment on above:METHOD TRACEABLE TO IDMS STANDARDeGFR (CKD-EPI)non-race qmjbupkkb37- [facility] Medical CenterComment on above: Reported eGFR is based on the CKD-EPI 2020 equation that does not use a race coefficient. Glucose [Mass/Vol]103 mg/qEDwzh75 - 99 mg/dLKettering Health Washington Township Interpretation and review of laboratory resultsAbnormalOhio Valley Hospital System Potassium [Moles/Vol]3.4 mmol/LLow3.5 - 5.0 mmol/LProMedica Health SystemSodium [Moles/Vol]140 mmol/L134 - 146 mmol/[facility] Centerica Health SystemUrea nitrogen [Mass/Vol]22 mg/dL5 - 27 mg/dLOhio Valley Hospital SystemKettering Health Washington TownshipCBC AND AUTO DIFFon 15-25-8533UUIYOYJOOIW8+AbnormalNONEPAvita Health System Comment on above:Performed By: #### 97226-6, 2132-01, PINR, 20362-6, AHP, CMP, THYR, FEPR, CBCA, 92341-1, 81092-6, 1967-, 2283-, 2275- #### [facility] ([id number]) [address], [address] [place], [place] [address]Riwfybuqkfwh Ql (Bld)2+AbnormalBarberton Citizens Hospital Comment on above:Performed By: #### 35615-9, 2131-9, PINR, 49705-7, AHP, CMP, THYR, FEPR, CBCA, 21826-5, 35035-7, 1967-11, 2283-12, 2275- #### [facility] ([id number]) [address] [facility], [address] [place], [place] [address]PJGL2+AbnormalNONEPAvita Health SystemComment on above: Performed By: #### 55624-1, 9, PINR, 38882-7, AHP, CMP, THYR, FEPR, CBCA, 79515-4, 57819-7, 1967-11, 2283-12, 2275- #### [facility] ([id number]) [address] [facility], [address] [place], [place] [address]Sprbsjrglha (Bld) [#/Vol]0.2 10*3/uLNormal0.0-0.4ProVan Wert County HospitalComment on above:Performed By: #### 39331-4, 9, PINR, 04140- 9, AHP, CMP, THYR, FEPR, CBCA, 16488-2, 16891-4, 1967-11, 2283-12, 2275- #### [facility] ([id number]) [address], [address] [place], [place] [address]Flabwokqgeq/100 WBC (Bld)3.0 %NormalMartin Memorial Hospital Comment on above:Performed By: #### 62972-6, 9, PINR, 83558-8, AHP, CMP, THYR, FEPR, CBCA, 64089-4, 29002-4, 1967-11, 2283-12, 2275- #### [facility] ([id number]) [address], [address] [place], [place] [address]Ehaecrzifey distribution width (RBC) [Ratio]23.3 %High11.5-15.0 [facility] Memorial HospitalComment on above:Performed By: #### 96900-9, 9, PINR, 05351-6, AHP, CMP, THYR, FEPR, CBCA, 64654-9, 36247-8, 1967-11, 2283-12, 2275-08 #### [facility] ([id number]) [address] [facility], [address] [place], [place] [address]GXKXIKCR6+AbnormalNONEProMedica Joint Township District Memorial HospitalComment on above: Performed By: #### 94409-5, 2132-01, PINR, 43087-8, AHP, CMP, THYR, FEPR, CBCA, 18766-8, 65209-1, 1967-11, 2283-12, 2275- #### [facility] ([id number]) [address] [facility], [address] [place], [place] [address]Qjbidnopqy (Bld) [Volume fraction]31.8 %Geq86-99EauOghwikVan Wert County HospitalComment on above:Performed By: #### 33687-3, 2132-01, PINR, 59007-1, AHP, CMP, THYR, FEPR, CBCA, 00657-9, 04720-5, 1967-11, 2283-12, 2275- #### [facility] ([id number]) [address] [facility], [address] [place], [place] [address]Omjokdctxg (Bld) [Mass/Vol]9.9 g/dLLow13.0-17.0ProVan Wert County HospitalComment on above:Performed By: #### 24628-8, 9, PINR, 98627-9, AHP, CMP, THYR, FEPR, CBCA, 65120-4, 59251-2, 1967-11, 2283-12, 2275-4 #### [facility] ([id number]) [address], [address] [place], [place] [address]IVCJTXUWMJV6+AbnormalNONEPAvita Health SystemComment on above:Performed By: #### 68003-6, 2131-9, PINR, 16007-1, AHP, CMP, THYR, FEPR, CBCA, 13997-6, 93779-5, 1967-11, 2283-12, 2275- #### [facility] ([id number]) [address], [address] [place], [place] [address]Axbfhzvtfmg (Bld) [#/Vol]0.6 10*3/uLLow1.0-3.5ProMedKettering Health DaytonComment on above:Performed By: #### 80072-8, 9, PINR, 08800-8, AHP, CMP, THYR, FEPR, CBCA, 73915-0, 93298-2, 1967-11, 2283-12, 2275- #### [facility] ([id number]) [address], [address] [place], [place] [address]Ahnctvdnhzf/100 WBC (Bld)9.0 %NormalMartin Memorial Hospital Comment on above:Performed By: #### 74820-7, 9, PINR, 86741-4, AHP, CMP, THYR, FEPR, CBCA, 20990-6, 44290-0, 1967-11, 2283-12, 2275- #### [facility] ([id number]) [address], [address] [place], [place] [address]QSN (RBC) [Entitic mass]22.6 pvFsg20-28FqlWfgtbkMartin Memorial Hospital Comment on above:Performed By: #### 13875-8, 2131-9, PINR, 36232-9, AHP, CMP, THYR, FEPR, CBCA, 43841-8, 24679-8, 1967-11, 2283-12, 2275-08 #### [facility] ([id number]) [address], [address] [place], [place] [address]VRSV (RBC) [Mass/Vol]31.1 g/vSSvm77-33CmfHubnjvMartin Memorial Hospital Comment on above:Performed By: #### 74348-5, 2131-9, PINR, 64768-5, AHP, CMP, THYR, FEPR, CBCA, 21523-1, 25277-2, 1967-11, 2283-12, 2275-08 #### [facility] ([id number]) [address] [facility], [address] [place], [place] [address]BXM (RBC) [Entitic vol]73 uFCbq85-244UqfJhwquiMartin Memorial Hospital Comment on above:Performed By: #### 45128-8, 2131-9, PINR, 36608-4, AHP, CMP, THYR, FEPR, CBCA, 88356-8, 92975-9, 1967-11, 2283-12, 2275-08 #### [facility] ([id number]) [address] [facility], [address] [place], [place] [address]Dizpgbhmv (Bld) [#/Vol]0.5 10*3/uLNormal0-0.9Martin Memorial HospitalComment on above:Performed By: #### 65114-6, 9, PINR, 52703-3, AHP, CMP, THYR, FEPR, CBCA, 80737-9, 57019-8, 1967-11, 2283-12, 2275-08 #### [facility] ([id number]) [address] [facility], [address] [place], [place] [address]Vgdwacmhf/100 WBC (Bld)8.0 %NormalMartin Memorial Hospital Comment on above:Performed By: #### 98620-1, 2131-9, PINR, 04988-4, AHP, CMP, THYR, FEPR, CBCA, 95650-9, 38006-9, 1967-11, 2283-12, 2275- #### [facility] ([id number]) [address] [facility], [address] [place], [place] [address]Lxnogpscfxk (Bld) [#/Vol]5.4 10*3/uLNormal1.5-6.6Pro[facility]ica Des Arc HospitalComment on above:Performed By: #### 82534-4, 9, PINR, 11074- 9, AHP, CMP, THYR, FEPR, CBCA, 64835-7, 79075-6, 1967-11, 2283-12, 2275-08 #### [facility] ([id number]) [address] [facility], [address] [place], [place] [address]UNRQXWFVY5+AbnormalNONEProMedica Des Arc HospitalComment on above:Performed By: #### 10748-9, 9, PINR, 21808-5, AHP, CMP, THYR, FEPR, CBCA, 90328-4, 31277-3, 1967-11, 2283-12, 2275- #### [facility] ([id number]) [address] [facility], [address] [place], [place] [address]Ofhkvohj mean volume (Bld) [Entitic vol]8.7 fLNormal7-12 [facility] Arc HospitalComment on above:Performed By: #### 43134-7, 9, PINR, 42232-1, AHP, CMP, THYR, FEPR, CBCA, 85376-0, 75971-4, 1967-11, 2283-12, 2275- #### [facility] ([id number]) [address] [place] [address], [address] [place], [place] [address]Apympebqc (Bld) [#/Vol]243 10*3/mZVlwkyb217-505YxyEapdoh Des Arc HospitalComment on above:Performed By: #### 33335-7, 9, PINR, 45227-2, AHP, CMP, THYR, FEPR, CBCA, 58524-1, 56833-3, 1967-7, 2283-8, 6-4 #### [facility] ([id number]) [address] [place] [address], [address] [place], [place] [address]NHD COUNT4.37 X10E12/LNormal4.10-5.70[facility] Comment on above:Performed By: #### 30291-1, 2132-01, PINR, 05354-0, AHP, CMP, THYR, FEPR, CBCA, 11819-5, 24982-2, 1967-, 8, 2275- #### [facility] ([id number]) [address] [place] [address], [address] [place] [address]PUF IRZLCCRZTJ60.0 %NormalProVan Wert County HospitalComment on above:Performed By: #### 10608-7, 2132-01, PINR, 06997-1, AHP, CMP, THYR, FEPR, CBCA, 74111-5, 54851-5, 1967-, 2283-12, 2275- #### [facility] ([id number]) [address] [place] [address], [address] [place] [address]ZHJ (Bld) [#/Vol]6.7 10*3/uLNormal4.0-11.0ProVan Wert County HospitalComment on above:Performed By: #### 21478-1, 2132-01, PINR, 11027-6, AHP, CMP, THYR, FEPR, CBCA, 04033-6, 74972-2, 1967-11, 2283-12, 2275- #### [facility] ([id number]) [address] [place] [address], [address] [place] [address]BFG auto differentialon 37-97-1777Mfawiivmvpyo LM Ql (Bld)2+ AbnormalNONE^NONEProMedica Health SystemAnisocytosis Ql (Bld)2+AbnormalNONE^NONE [facility] Health SystemBurr cells LM Ql (Bld)1+AbnormalNONE^NONEKettering Health Washington TownshipEosinophils (Bld) [#/Vol]0.2 10*3/[facility] Eosinophils/100 WBC (Bld)3 %[facility] Washington TownshipErythrocyte distribution width (RBC) [Ratio]23.3 %High11.5 - 15.0 %[facility] Hospital SystemFragments LM Ql (Bld)1+AbnormalNONE^NONEKettering Health Washington TownshipHematocrit (Bld) [Volume fraction]31.8 %Low39 - 49 %[facility] TownshipHemoglobin (Bld) [Mass/Vol]9.9 g/dLLow13.0 - 17.0 g/dLKettering Health Washington TownshipHypochromia Ql (Bld)1+Abnormal NONE^[facility] HospitalInterpretation and review of laboratory results AbnormalKettering Health Washington TownshipLymphocytes (Bld) [#/Vol]0.6 10*3/uLLowKettering Health Washington TownshipLymphocytes/100 WBC (Bld)9 %[facility] TownshipMCH (RBC) [Entitic mass]22.6 pgLow27 - 34 [facility] MemorialMCHC (RBC) [Mass/Vol] 31.1 g/dLLow32 - 36 g/dLKettering Health Washington TownshipMCV (RBC) [Entitic vol]73 fLLow80 - 100 [facility] HospitalMonocytes (Bld) [#/Vol]0.5 10*3/uLKettering Health Washington TownshipMonocytes/100 WBC (Bld)8 %[facility] TownshipNeutrophils (Bld) [#/Vol]5.4 10*3/uLKettering Health Washington TownshipOvalocytes LM Ql (Bld)2+Abnormal NONE^[facility] HospitalPlatelet mean volume (Bld) [Entitic vol]8.7 fL7 - 12 [facility] SystemPlatelets (Bld) [#/Vol]243 10*3/uLKettering Health Washington TownshipRBC (Bld) [#/Vol]4.37 10*6/uLFormerly Hoots Memorial Hospitalegmented neutrophils/100 WBC (Bld)80 %[facility] TownshipWBC corrected for nucl RBC Auto (Bld) [#/Vol]6.7[facility] SystemLIVER PANELon [id number] [Mass/Vol]3.5 g/dLNormal3.2-5.3PAvita Health System Comment on above:Performed By: #### 30571-2, 2131-9, PINR, 21074-9, AHP, CMP, THYR, FEPR, CBCA, 41658-1, 18686-5, 1967-11, 2283-12, 6-4 #### [facility] ([id number]) [address] [place], [place] [address]JPI [Catalytic activity/Vol]64 U/ZNjfwev65-132VsoUoteed Toledo HospitalComment on above:Performed By: #### 26612-1, 9, PINR, 88251-0, AHP, CMP, THYR, FEPR, CBCA, 08581-9, 89014-9, 1967-11, 2283-12, 2275-4 #### [facility] ([id number]) [address], [address] [place], [place] [address]LRN [Catalytic activity/Vol]19 U/LNormal0-40Martin Memorial HospitalComment on above:Performed By: #### 62959-9, 9, PINR, 54005-6, AHP, CMP, THYR, FEPR, CBCA, 36057-0, 89903-4, 1967-11, 2283-12, 6-4 #### [facility] ([id number]) [address] [place], [place] [address]NYH [Catalytic activity/Vol]25 U/LNormal0-41ProVan Wert County HospitalComment on above:Performed By: #### 84406-5, 9, PINR, 45450-7, AHP, CMP, THYR, FEPR, CBCA, 59911-6, 39441-1, 1967-11, 2283-12, 2275-08 #### [facility] ([id number]) [address], [address] [place], [place] [address]Iqyxhcmnn [Mass/Vol]0.8 mg/dLNormal0.3-1.2PAvita Health SystemComment on above:Performed By: #### 55418-5, 2131-9, PINR, 76651-3, AHP, CMP, THYR, FEPR, CBCA, 57991-2, 84963-2, 1967-11, 2283-12, 2275- #### [facility] ([id number]) [facility], [address] [place], [place] [address]Dmiyonpof.direct [Mass/Vol]0.4 mg/dLNormal0.0-0.4ProVan Wert County HospitalComment on above:Performed By: #### 72347-5, 9, PINR, 70261- 9, AHP, CMP, THYR, FEPR, CBCA, 77450-3, 38606-5, 1967-11, 2283-12, 2275- #### [facility] ([id number]) [address] [place] [address], [address] [place], [place] [address]Ulvbcgl [Mass/Vol]5.8 g/dLLow6.0-8.0[facility] Comment on above:Performed By: #### 91091-6, 9, PINR, 03367-1, AHP, CMP, THYR, FEPR, CBCA, 96127-2, 50711-7, 1967-11, 2283-12, 2275- #### [facility] ([id number]) [address] [place] [address], [address] [place], [place] [address]Tqgsu panelon [id number] [Mass/Vol]3.5 g/dL3.2 - 5.3 g/dL [facility] SystemALP [Catalytic activity/Vol]64 U/L39 - 130 U/LProMedica Centerville SystemALT No additional P-5'-P [Catalytic activity/Vol]19 U/L0 - 40 U/L [facility] SystemAST [Catalytic activity/Vol]25 U/L0 - 41 U/LPrMercy Memorial Hospital SystemBilirubin [Mass/Vol]0.8 mg/dL0.3 - 1.2 mg/dLK[facility] Health [facility] Bilirubin.direct [Mass/Vol]0.4 mg/dL0.0 - 0.4 mg/dLK[facility]tering Health [facility] Interpretation and review of laboratory resultsAbnormalProParma Community General Hospital Protein [Mass/Vol]5.8 g/dLLow6.0 - 8.0 g/dLMagee Rehabilitation HospitalMR BRAIN W WO CONTon [id number] BRAIN W WO CONTMR BRAIN W WO [...] Correlate with symptoms. 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 food service lead: The left COW TRIMMER is normal. Diminished flow related enhancement within the distal right COW TRIMMER distribution likely sequelae of prior right COW TRIMMER infarct. IMPRESSION: 1. 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 2. Diminished flow related enhancement within the proximal right vertebral artery is likely due to flow dynamics and injc-dy-jcsjqr technique is there is normal-appearing enhancement on the postcontrast MRA of the neck. 3. Otherwise, no high-grade stenosis, occlusion, or evidence of sizable aneurysm. Finalized by Zac Lucia on 06/10/2024 9:32 [facility] CONTon [id number] MRA NECK W WO CONTMR MRA NECK [...] Finalized by Zac Lucia on 06/10/2024 10:36 [facility] MRA Head vessels WO contraston [id number]: MR MRA HEAD WO CONT INDICATION: Stroke [...] segment possibly due to flow dynamics and waks-rk-wxdece technique as there appears to be normal contrast enhancement within the V4 segment on the MRA of the neck Basilar artery: Normal. food service lead: The left COW TRIMMER is normal. Diminished flow related enhancement within the distal right COW TRIMMER distribution likely sequelae of prior right COW TRIMMER infarct. IMPRESSION: 1. 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 2. Diminished flow related enhancement within the proximal right vertebral artery is likely due to flow dynamics and qdco-oo-vvdsds technique is there is normal-appearing enhancement on [...] segment possibly due to flow dynamics and sert-qc-zogshs technique as there appears to be normal contrast enhancement within the V4 segment on the MRA of the neck Basilar artery: Normal. food service lead: The left COW TRIMMER is normal. Diminished flow related enhancement within the distal right COW TRIMMER distribution likely sequelae of prior right COW TRIMMER infarct. IMPRESSION: 1. 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 2. Diminished flow related enhancement within the proximal right vertebral artery is likely due to flow dynamics and zfvr-af-xxhhcs technique is there is normal-appearing enhancement on the postcontrast MRA of the neck. 3. Otherwise, no high-grade stenosis, occlusion, or evidence of sizable aneurysm. Finalized by Zac Lucia on 06/10/2024 9:[address] [facility] SystemRadiology Study observation (narrative)[facility] TownshipMR Neck vessels WO and W contrast Dionisio [id number]: MR MRA NECK W WO CONT INDICATION: [...] by Zac Lucia on 06/10/2024 10:36 AM [facility]No Panel Informationon 06-10-2024 Radiology Study observation (narrative)[facility] TownshipBASI METABOLIC PANLon 19-68-2883Sabfk gap [Moles/Vol]12 mmol/LNormal5-15ProVan Wert County HospitalComment on above:Performed By: #### 89729-9, 2131-9, PINR, 43177-7, AHP, CMP, THYR, FEPR, CBCA, 72055-0, 40432-0, 1967-11, 2283-12, 2275- #### [facility] ([id number]) [address], [address] [place], [place] [address]Ewumkzg [Mass/Vol]8.7 mg/dLNormal8.5-10.5PAvita Health SystemComment on above:Performed By: #### 58486-4, 9, PINR, 43607-5, AHP, CMP, THYR, FEPR, CBCA, 98211-2, 10574-8, 1967-11, 2283-12, 2275- #### [facility] ([id number]) [address], [address] [place], [place] [address]Sdkxfllz [Moles/Vol]102 mmol/RPngenm30-435CssExxpys [place]edo HospitalComment on above:Performed By: #### 70345-3, 2131-9, PINR, 80032-3, AHP, CMP, THYR, FEPR, CBCA, 42620-7, 65016-2, 1967-11, 2283-12, 2275-4 #### [facility] ([id number]) [address], [address] [place], [place] [address]YU4 [Moles/Vol]30 mmol/PAtqzks06-02VesSuhyie [facility] Comment on above:Performed By: #### 82215-4, 2131-9, PINR, 44595-1, AHP, CMP, THYR, FEPR, CBCA, 75524-7, 61227-7, 1967-11, 2283-12, 2275- #### [facility] ([id number]) [address], [address] [place], [place] [address]Nhhaadfmxf [Mass/Vol]1.32 mg/dLHigh0.60-1.30ProVan Wert County HospitalComment on above:Result Comment: METHOD TRACEABLE TO IDMS STANDARD Performed By: #### 65454-2, 9, PINR, 15366-1, AHP, CMP, THYR, FEPR, CBCA, 47737-2, 83098-9, 1967-11, 2283-12, 2275-08 #### [facility] ([id number]) [address], [address] [place], [place] [address]LOU/1.73 sq M.predicted among non-blacks MDRD (S/P/Bld) [Vol rate/Area]58 mL/min/{1.73_m2}Low>59ProVan Wert County HospitalComment on above: Result Comment: Reported eGFR is based on the CKD-EPI 2020 equation that does not use a race coefficient.Performed By: #### 80469-3, 2131-9, PINR, 93303-0, AHP, CMP, THYR, FEPR, CBCA, 94064-6, 38462-1, 1967-11, 2283-12, 2275-08 #### [facility] ([id number]) [address], [address] [place], [place] [address]Dyxyroc [Mass/Vol]99 mg/iYJhxhxa98-70GnpRdgnwnMartin Memorial Hospital Comment on above:Performed By: #### 89178-6, 2131-9, PINR, 08777-2, AHP, CMP, THYR, FEPR, CBCA, 60319-0, 61598-8, 1967-11, 2283-12, 2275-08 #### [facility] ([id number]) [address], [address] [place], [place] [address]Pwozekjmc [Moles/Vol]3.5 mmol/LNormal3.5-5.0ProVan Wert County HospitalComment on above:Performed By: #### 40184-3, 2132-01, PINR, 46515-4, AHP, CMP, THYR, FEPR, CBCA, 80103-5, 29260-1, 1967-11, 2283-12, 2275-08 #### [facility] ([id number]) [address], [address] [place], [place] [address]Cssdfs [Moles/Vol]144 mmol/WHogqpv963-549LsfCzjraz [place] HospitalComment on above:Performed By: #### 52484-9, 2132-01, PINR, 27840-1, AHP, CMP, THYR, FEPR, CBCA, 04072-3, 27908-8, 1967-11, 2283-12, 2275-08 #### [facility] ([id number]) [address], [address] [place], [place] [address]Ygky nitrogen [Mass/Vol]18 mg/dLNormal5-27ProVan Wert County HospitalComment on above:Performed By: #### 92963-3, 9, PINR, 24457-2, AHP, CMP, THYR, FEPR, CBCA, 27654-4, 46076-0, 1967-11, 2283-12, 2275-08 #### [facility] ([id number]) [address], [address] [place], [place] [address]Oyiau Metabolic Panelon 99-44-0980Mgeyy gap [Moles/Vol]12 mmol/L 5 - 15 mmol/LProMedica Health SystemCalcium [Mass/Vol]8.7 mg/dL8.5 - 10.5 mg/dL ProMedica Health SystemChloride [Moles/Vol]102 mmol/L98 - 109 mmol/[facility] SystemCO2 [Moles/Vol]30 mmol/L22 - 32 mmol/[facility] Creatinine [Mass/Vol]1.32 mg/dLHigh0.60 - 1.30 mg/dLKettering Health [facility] Township Comment on above:METHOD TRACEABLE TO IDMS STANDARDeGFR (CKD-EPI)non-race tvrvrxojz98Xng- PINMissouri Baptist Hospital-SullivanComment on above: Reported eGFR is based on the CKD-EPI 2020 equation that does not use a race coefficient. Glucose [Mass/Vol]99 mg/dL65 - 99 mg/dLKettering Health Washington TownshipInterpretation and review of laboratory resultsAbnormalKettering Health Washington TownshipPotassium [Moles/Vol]3.5 mmol/L3.5 - 5.0 mmol/[facility] SystemSodium [Moles/Vol] 144 mmol/L134 - 146 mmol/[facility] SystemUrea nitrogen [Mass/Vol]18 mg/dL5 - 27 mg/dLMagee Rehabilitation HospitalCBC AND AUTO DIFF on 57-40-0876VDVDZJTP BASOPHIL0.1 X10E9/LNormal0.0-0.2PAvita Health System Comment on above:Performed By: #### 12465-5, 2132-01, PINR, 78381-9, AHP, CMP, THYR, FEPR, CBCA, 40418-7, 84779-3, 1967-, 2283-, 2275- #### [facility] ([id number]) [address], [address] [place], [place] [address]MDUFKKQF NEUTROPHIL5.0 X10E9/LNormal1.5-6.6Martin Memorial HospitalComment on above:Performed By: #### 19580-0, 2132-01, PINR, 32172-8, AHP, CMP, THYR, FEPR, CBCA, 76516-1, 82415-0, 1967-, 2283-, 2275- #### [facility] ([id number]) [address], [address] [place], [place] [address]Ohscenakdfmi Ql (Bld)2+AbnormalNONEProMedica [facility] Comment on above:Performed By: #### 40353-0, 2131-9, PINR, 06626-0, AHP, CMP, THYR, FEPR, CBCA, 30563-5, 31960-7, 1967-7, 2283-8, 6-4 #### [facility] ([id number]) [address], [address] [place], [place] [address]Yuijtaelc/100 WBC (Bld)0.9 %NormalMartin Memorial Hospital Comment on above:Performed By: #### 13782-6, 9, PINR, 61410-1, AHP, CMP, THYR, FEPR, CBCA, 37238-5, 96691-3, 1967-, 2283-, 6-4 #### [facility] ([id number]) [address], [address] [place], [place] [address]Mrdvznwtwer (Bld) [#/Vol]0.1 10*3/uLNormal0.0-0.4ProVan Wert County HospitalComment on above:Performed By: #### 23756-2, 9, PINR, 87382- 9, AHP, CMP, THYR, FEPR, CBCA, 44192-3, 99636-5, 1967-11, 2283-12, 6-4 #### [facility] ([id number]) [address], [address] [place], [place] [address]Eaxxptuldsi/100 WBC (Bld)1.3 %NormalMartin Memorial Hospital Comment on above:Performed By: #### 65575-0, 9, PINR, 74693-5, AHP, CMP, THYR, FEPR, CBCA, 49773-0, 21613-0, 1967-11, 2283-12, 6-4 #### [facility] ([id number]) [address], [address] [place], [place] [address]Lgmwqevztyr distribution width (RBC) [Ratio]24.1 %High11.5-15.0 ProMed[facility] District Memorial HospitalComment on above:Performed By: #### 07502-1, 2132-01, PINR, 18667-3, AHP, CMP, THYR, FEPR, CBCA, 51610-5, 67554-1, 1967-11, 2283-12, 2275- #### [facility] ([id number]) [address], [address] [place], [place] [address]ANKMKRMK7+AbnormalNONEProMedica Joint Township District Memorial HospitalComment on above: Performed By: #### 38231-1, 2132-01, PINR, 07943-6, AHP, CMP, THYR, FEPR, CBCA, 79671-8, 90106-8, 1967-11, 2283-12, 2275- #### [facility] ([id number]) [address], [address] [place], [place] [address]Elswdvjwae (Bld) [Volume fraction]40.9 %Qwfpxt50-62ColXrkmwbVan Wert County HospitalComment on above:Performed By: #### 04039-1, 2132-01, PINR, 9, AHP, CMP, THYR, FEPR, CBCA, 85345-6, 10367-3, 1967-11, 2283-12, 2275- #### [facility] ([id number]) [address], [address] [place], [place] [address]Lnwbuvnulc (Bld) [Mass/Vol]12.6 g/dLLow13.0-17.0ProVan Wert County HospitalComment on above:Performed By: #### 86925-1, 2132-01, PINR, 33723-4, AHP, CMP, THYR, FEPR, CBCA, 31542-8, 28061-0, 1967-11, 2283-12, 2275- #### [facility] ([id number]) [address], [address] [place], [place] [address]POVRREAZIVO8+AbnormalNONEPAvita Health SystemComment on above:Performed By: #### 81842-4, 9, PINR, 98660-3, AHP, CMP, THYR, FEPR, CBCA, 28346-3, 05450-5, 1967-11, 2283-12, 2275- #### [facility] ([id number]) [address], [address] [place], [place] [address]Pilugmttgxo (Bld) [#/Vol]0.5 10*3/uLLow1.0-3.5ProMedKettering Health DaytonComment on above:Performed By: #### 29471-1, 2132-01, PINR, 65727-0, AHP, CMP, THYR, FEPR, CBCA, 93897-7, 11154-8, 1967-11, 2283-12, 2275- #### [facility] ([id number]) [address], [address] [place], [place] [address]Ojyaxkupjzq/100 WBC (Bld)8.4 %NormalMartin Memorial Hospital Comment on above:Performed By: #### 98065-7, 2132-01, PINR, 74958-9, AHP, CMP, THYR, FEPR, CBCA, 11279-1, 56560-0, 1967-11, 2283-12, 2275- #### [facility] ([id number]) [address], [address] [place], [place] [address]UTY (RBC) [Entitic mass]22.5 laPca94-24OjeAkexztMartin Memorial Hospital Comment on above:Performed By: #### 36148-8, 9, PINR, 59268-1, AHP, CMP, THYR, FEPR, CBCA, 38644-0, 21853-3, 1967-11, 2283-12, 2275- #### [facility] ([id number]) [address], [address] [place], [place] [address]BEXW (RBC) [Mass/Vol]30.7 g/kPMhm18-24KywEhrhlrMartin Memorial Hospital Comment on above:Performed By: #### 18074-7, 2131-9, PINR, 59181-1, AHP, CMP, THYR, FEPR, CBCA, 30997-1, 22453-2, 1967-11, 2283-12, 2275- #### [facility] ([id number]) [address], [address] [place], [place] [address]FLZ (RBC) [Entitic vol]73 qYXhr72-891FkvTwzsotMartin Memorial Hospital Comment on above:Performed By: #### 98187-6, 2131-9, PINR, 97892-6, AHP, CMP, THYR, FEPR, CBCA, 66895-5, 25021-3, 1967-11, 2283-12, 2275- #### [facility] ([id number]) [address], [address] [place], [place] [address]Addpvnmuu (Bld) [#/Vol]0.4 10*3/uLNormal0-0.9Martin Memorial HospitalComment on above:Performed By: #### 07323-0, 2131-9, PINR, 80505-1, AHP, CMP, THYR, FEPR, CBCA, 56240-0, 31378-8, 1967-11, 2283-12, 2275- #### [facility] ([id number]) [address], [address] [place], [place] [address]Kjtynettc/100 WBC (Bld)6.3 %NormalMartin Memorial Hospital Comment on above:Performed By: #### 42800-0, 2131-9, PINR, 04343-2, AHP, CMP, THYR, FEPR, CBCA, 04946-1, 05637-7, 1967-11, 2283-12, 2275-08 #### [facility] ([id number]) [address], [address] [place], [place] [address]Abwitxqtohr/100 WBC (Bld)83.1 %NormalProVan Wert County Hospital Comment on above:Performed By: #### 77374-4, 2131-9, PINR, 81039-9, AHP, CMP, THYR, FEPR, CBCA, 76981-1, 61966-1, 1967-11, 2283-12, 2275-08 #### [facility] ([id number]) [address], [address] [place], [place] [address]DHFISUDCD6+AbnormalNONEProMedica Joint Township District Memorial HospitalComment on above:Performed By: #### 30758-9, 2131-9, PINR, 76707-1, AHP, CMP, THYR, FEPR, CBCA, 77290-9, 63638-4, 1967-11, 2283-12, 2275- #### [facility] ([id number]) [address], [address] [place], [place] [address]Befssndg mean volume (Bld) [Entitic vol]8.8 fLNormal7-12 [facility] Memorial HospitalComment on above:Performed By: #### 64949-7, 2131-9, PINR, 03477-9, AHP, CMP, THYR, FEPR, CBCA, 20940-0, 51737-9, 1967-11, 2283-12, 2275- #### [facility] ([id number]) [address], [address] [place], [place] [address]Dayudxycg (Bld) [#/Vol]271 10*3/nABpnaqm176-545NwtChakhx Joint Township District Memorial HospitalComment on above:Performed By: #### 96336-7, 2131-9, PINR, 81113-8, AHP, CMP, THYR, FEPR, CBCA, 05266-4, 83773-4, 1967-11, 2283-12, 2275-08 #### [facility] ([id number]) [address], [address] [place], [place] [address]OQZ COUNT5.59 X10E12/LNormal4.10-5.70[facility] Comment on above:Performed By: #### 97360-8, 2131-9, PINR, 90635-1, AHP, CMP, THYR, FEPR, CBCA, 39748-5, 03523-0, 1967-, 2283-12, 2275- #### [facility] ([id number]) [address] [address], [address] [place], [place] [address]FYY (Bld) [#/Vol]6.0 10*3/uLNormal4.0-11.0Martin Memorial HospitalComment on above:Performed By: #### 32467-0, 9, PINR, 02876-0, AHP, CMP, THYR, FEPR, CBCA, 20269-3, 46007-2, 1967-11, 2283-12, 2275-08 #### [facility] ([id number]) [address], [address] [place], [place] [address]OWX auto differentialon 90-33-0755Boexukgjloor Ql (Bld)2+ AbnormalNONE^NONEProMedica Health SystemBasophils (Bld) [#/Vol]0.1 10*3/uL [facility] SystemBasophils/100 WBC (Bld)0.9 %[facility] Eosinophils (Bld) [#/Vol]0.1 10*3/uLProMedica Health SystemEosinophils/100 WBC (Bld)1.3 %[facility]Medica Health SystemErythrocyte distribution width (RBC) [Ratio] 24.1 %High11.5 - 15.0 %ProMedica Health SystemFragments LM Ql (Bld)1+Abnormal NONE^NONEProMedica Health SystemHematocrit (Bld) [Volume fraction]40.9 %39 - 49 %[facility]ica Health SystemHemoglobin (Bld) [Mass/Vol]12.6 g/dLLow13.0 - 17.0 g/dL [facility] TownshipHypochromia Ql (Bld)2+AbnormalNONE^[facility] HospitalInterpretation and review of laboratory resultsAbnormThe MetroHealth SystemLymphocytes (Bld) [#/Vol]0.5 10*3/uLSalem City Hospital Lymphocytes/100 WBC (Bld)8.4 %[facility]H (RBC) [Entitic mass] 22.5 pgLow27 - 34 [facility] MemorialMCHC (RBC) [Mass/Vol]30.7 g/dLLow32 - 36 g/dLKettering Health Washington TownshipMCV (RBC) [Entitic vol]73 fLLow80 - 100 fL [facility] TownshipMonocytes (Bld) [#/Vol]0.4 10*3/uLK[facility]tering Health Washington Township Monocytes/100 WBC (Bld)6.3 %[facility] TownshipNeutrophils (Bld) [#/Vol]5 10*3/uLKettering Health Washington TownshipNeutrophils/100 WBC (Bld)83.1 %[facility] TownshipOvalocytes LM Ql (Bld)2+AbnormalNONE^[facility]hesda HospitalPlatelet mean volume (Bld) [Entitic vol]8.8 fL7 - 12 [facility] HospitalPlatelets (Bld) [#/Vol]271 10*3/uLKettering Health Washington TownshipRBC (Bld) [#/Vol]5.59 10*6/uL [facility] TownshipWBC corrected for nucl RBC Auto (Bld) [#/Vol]6Magee Rehabilitation HospitalECG 12 leadon 52-47-1738GGRJAVGIAQTAMU [facility] TownshipPOTASSIUMon 41-23-6784Fwqkpeflu [Moles/Vol]3.8 mmol/L Normal3.5-5.0Martin Memorial HospitalComment on above:Performed By: #### 37053- 0, 2132-9, PINR, 62445-3, AHP, CMP, THYR, FEPR, CBCA, 19851-5, 22284-1, 1967-11, 2283-12, 2275-4 #### [facility] ([id number]) [address] [place], [place] [address]Ggrfcdzjzbq 65-77-7091Ovmenoxwu [Moles/Vol]3.8 mmol/L3.5 - 5.0 mmol/[facility] Medical CenterPotassium [Moles/Vol]on 94-09-3560ZgfVkorjzKettering Health Washington TownshipAPTPage Hospital 21-55-5001mMHX Coag (PPP) [Time]38 [facility] HospitalaPTT Coag (PPP) [Time]80 [facility] HospitalBASIC METABOLIC PANLon 98-06-2959Vzhcb gap [Moles/Vol]13 mmol/LNormal5-15[facility] Comment on above:Performed By: #### 17041-3, 2132-01, PINR, 17379-8, AHP, CMP, THYR, FEPR, CBCA, 20602-1, 34587-7, 1967-11, 2283-12, 2275-4 #### [facility] ([id number]) [address], [address] [place], [place] [address]Mbvaeoa [Mass/Vol]8.3 mg/dLLow8.5-10.[address] [place] [address] Comment on above:Performed By: #### 23179-1, 2132-01, PINR, 79348-6, AHP, CMP, THYR, FEPR, CBCA, 61210-6, 64760-5, 1967-11, 2283-12, 2275-4 #### [facility] ([id number]) [address], [address] [place], [place] [address]Nfjtthjf [Moles/Vol]107 mmol/QWwjigi65-180XnfHrigwp [place] HospitalComment on above:Performed By: #### 66015-5, 2132-01, PINR, 65663-7, AHP, CMP, THYR, FEPR, CBCA, 12031-0, 39721-7, 1967-11, 2283-12, 2275-08 #### [facility] ([id number]) [address], [address] [place], [place] [address]CY1 [Moles/Vol]26 mmol/PCijipz13-42ZlbItujknAvita Health System Comment on above:Performed By: #### 56218-2, 2131-9, PINR, 51684-4, AHP, CMP, THYR, FEPR, CBCA, 44069-4, 55995-7, 1967-11, 2283-12, 2275-08 #### [facility] ([id number]) [address], [address] [place], [place] [address]Garsxufoxx [Mass/Vol]1.58 mg/dLHigh0.60-1.30Martin Memorial HospitalComment on above:Result Comment: METHOD TRACEABLE TO IDMS STANDARD Performed By: #### 19445-5, 9, PINR, 31854-6, AHP, CMP, THYR, FEPR, CBCA, 18954-5, 45033-4, 1967-11, 2283-12, 2275-08 #### [facility] ([id number]) [address], [address] [place], [place] [address]EPY/1.73 sq M.predicted among non-blacks MDRD (S/P/Bld) [Vol rate/Area]47 mL/min/{1.73_m2}Low>59ProVan Wert County HospitalComment on above: Result Comment: Reported eGFR is based on the CKD-EPI 2020 equation that does not use a race coefficient.Performed By: #### 85187-9, 2131-9, PINR, 54312-8, AHP, CMP, THYR, FEPR, CBCA, 69558-3, 05903-7, 1967-11, 2283-12, 2275-08 #### [facility] ([id number]) [address], [address] [place], [place] [address]Khfxddw [Mass/Vol]117 mg/xIEfvx81-56XdhXmdlhoVan Wert County Hospital Comment on above:Performed By: #### 04945-1, 2131-9, PINR, 66463-9, AHP, CMP, THYR, FEPR, CBCA, 59141-1, 80551-7, 1967-11, 2283-12, 2275- #### [facility] ([id number]) [address], [address] [place], [place] [address]Nvyzmgusk [Moles/Vol]3.4 mmol/LLow3.5-5.0ProVan Wert County HospitalComment on above:Performed By: #### 23339-6, 9, PINR, 89170-9, AHP, CMP, THYR, FEPR, CBCA, , 55525-1, 1967-11, 2283-12, 2275-08 #### [facility] ([id number]) [address], [address] [place], [place] [address]Wcfpwg [Moles/Vol]146 mmol/UWwfigx210-084ShkJgyuyn [facility] HospitalComment on above:Performed By: #### 01017-7, 9, PINR, 20641-5, AHP, CMP, THYR, FEPR, CBCA, 75917-3, , 1967-11, 2283-12, 2275- #### [facility] ([id number]) [address], [address] [place], [place] [address]Hnar nitrogen [Mass/Vol]24 mg/dLNormal5-27ProVan Wert County HospitalComment on above:Performed By: #### 05042-5, 9, PINR, 09042-5, AHP, CMP, THYR, FEPR, CBCA, 72893-7, 76302-5, 1967-11, 2283-12, 2275- #### [facility] ([id number]) [address], [address] [place], [place] [address]Snuuvuud identified Cx Nom (U)on 36-54-7570Prrunjx comment (Unsp spec) [Interp]NO GROWTH AT <1000 CFU/mLMagee Rehabilitation HospitalBasic Metabolic Panelon 37-05-5116Yamho gap [Moles/Vol]13 mmol/L5 - 15 mmol/[facility] SystemCalcium [Mass/Vol]8.3 mg/dLLow8.5 - 10.5 mg/dL Pro[facility]icBet[facility] SystemChloride [Moles/Vol]107 mmol/L98 - 109 mmol/[facility] SystemCO2 [Moles/Vol]26 mmol/L22 - 32 mmol/[facility] Creatinine [Mass/Vol]1.58 mg/dLHigh0.60 - 1.30 mg/dLKettering Health [facility] Comment on above:METHOD TRACEABLE TO IDTN STANDARDeGFR (CKD-EPI)non-race vzrttrtbj34Uwj[address] [place], [place] [address]Comment on above: Reported eGFR is based on the CKD-EPI 2020 equation that does not use a race coefficient. Glucose [Mass/Vol]117 mg/tAPmsr39 - 99 mg/dLKettering Health [facility] Township Interpretation and review of laboratory resultsAbnormalKettering Health [facility] Potassium [Moles/Vol]3.4 mmol/LLow3.5 - 5.0 mmol/[facility] SystemSodium [Moles/Vol]146 mmol/L134 - 146 mmol/[facility] SystemUrea nitrogen [Mass/Vol]24 mg/dL5 - 27 mg/dLKettering Health Washington TownshipCT BRAIN WO CONTon 57-37-2508SC BRAIN WO CONTCT BRAIN WO CONT Nonenhanced [...] by Uriel Smith MD on 06/08/2024 8:36 [facility] CT BRAIN WO CONTCT BRAIN WO CONT [...] by Zac Lewis MD on 06/08/2024 11:06 [facility]CT [facility] WO contraston 15-96-0390Vmmwkgagjku CT of the brain dated dated 06/08/2024 [...] Uriel Smith MD on 06/08/2024 8:36 PM [facility] SystemRadiology Study observation (narrative)[facility] SystemCT OF THE HEAD WITHOUT CONTRAST [...] Zac Lewis MD on 06/08/2024 11:06 AM [facility] TownshipRadiology Study observation (narrative)[facility] TownshipCT Head WO contrastOrdered By: Uriel Smith on 46-05-9106EowBjuusjKettering Health Washington Township Work Phone: CT Head WO contrastOrdered By: Zac Lewis on 57-38-9200FdyGacvtzKettering Health Washington Township Work Phone: HEMOGLOBINon 31-42-8671Knsrfbtvba (Bld) [Mass/Vol]11.3 g/dLLow13.0-17.0Martin Memorial HospitalComment on above:Performed By: #### 06516-4, 2132-9, PINR, 54608-0, AHP, CMP, THYR, FEPR, CBCA, 73716-2, 06020-4, 1968-7, 2284-8, 2275-08 #### [facility] ([id number]) [address], [address] [place], [place] [address]XNO A1C (GLYCO-HGB)on 52-69-8409Tgxfhsu [Mass/Vol]123 mg/dL NormalProVan Wert County HospitalComment on above:Performed By: #### 21373-5, 2132-01, PINR, 03637-6, AHP, CMP, THYR, FEPR, CBCA, , 00765-4, 1967-11, 2283-12, 2275-08 #### [facility] ([id number]) [address], [address] [place], [place] [address]VvB1l (Bld) [Mass fraction]5.9 %High4.4-5.6ProVan Wert County HospitalComment on above:Result Comment: NOTE ADA Guidelines Result HgbA1c Normal : less than 5.7 % Prediabetes : 5.7 % to 6.4 % Diabetes : > 6.4 % Use with caution in patients with abnormal hemoglobin variants as the half-life of red blood cells and in vivo glycation rates are affected.Performed By: #### 99015-3, 2132-01, PINR, 44831-1, AHP, CMP, THYR, FEPR, CBCA, 28016-0, 20995-3, 1967-11, 2283-12, 2275-08 #### [facility] ([id number]) [address] [facility] [facility] [address], [address] [place], [place] [address]Zcznlovvtsra 79-90-3980Ybqxwlpynh (Bld) [Mass/Vol]11.3 g/dLLow 13.0 - 17.0 g/dLKettering Health Washington TownshipHemoglobin (Bld) [Mass/Vol]on 06-08-2024 Interpretation and review of laboratory resultsAbnormalKettering Health Washington Township Hemoglobin A1con 74-64-7836Jesbyrs glucose Estimated from glycated hemoglobin (Bld) [Mass/Vol]123 mg/dLKettering Health Washington TownshipHbA1c (Bld) [Mass fraction]5.9 % High4.4 - 5.6 %[facility] TownshipComment on above:NOTE ADA Guidelines Result HgbA1c Normal : less than 5.7 % Prediabetes : 5.7 % to 6.4 % Diabetes : > 6.4 % Use with caution in patients with abnormal hemoglobin variants as the half-life of red blood cells and in vivo glycation rates are affected. Interpretation and review of laboratory resultsAbnormalSt. Mary Medical CenterLIVER PANELon 73-96-2622Isquqkx [Mass/Vol]2.9 g/dLLow 3.2-5.3ProMedica Joint Township District Memorial HospitalComment on above:Performed By: #### 45307-7, 9, PINR, 86438-4, AHP, CMP, THYR, FEPR, CBCA, 38908-6, 24617-9, 1967-11, 2283-12, 2275- #### [facility] ([id number]) [address] [place] [address], [address] [place], [place] [address]GHW [Catalytic activity/Vol]65 U/TBnaiqv72-686EqzCthqzeMartin Memorial HospitalComment on above:Performed By: #### 45636-4, 2132-01, PINR, 12169-4, AHP, CMP, THYR, FEPR, CBCA, 11905-6, 94789-1, 1967-11, 2283-12, 2275-4 #### [facility] ([id number]) [address] [place] [address], [address] [place], [place] [address]SSQ [Catalytic activity/Vol]20 U/LNormal0-40ProVan Wert County HospitalComment on above:Performed By: #### 60688-0, 9, PINR, 14486-8, AHP, CMP, THYR, FEPR, CBCA, 12750-2, 47220-7, 1967-11, 2283-12, 2275-08 #### [facility] ([id number]) [address] [facility] [address], [address] [place], [place] [address]LLJ [Catalytic activity/Vol]31 U/LNormal0-41ProVan Wert County HospitalComment on above:Performed By: #### 40797-1, 9, PINR, 70052-4, AHP, CMP, THYR, FEPR, CBCA, 40808-8, 88246-7, 1967-11, 2283-12, 2275-08 #### [facility] ([id number]) [address] [facility], [address] [place], [place] [address]Hxxogluhx [Mass/Vol]1.3 mg/dLHigh0.3-1.2ProMedKettering Health DaytonComment on above:Performed By: #### 88743-1, 9, PINR, 05922-2, AHP, CMP, THYR, FEPR, CBCA, 46980-0, 82999-7, 1967-11, 2283-12, 2275-08 #### [facility] ([id number]) [address] [facility], [address] [place], [place] [address]Yrriffddd.direct [Mass/Vol]0.5 mg/dLHigh0.0-0.4ProVan Wert County HospitalComment on above:Performed By: #### 80056-0, 9, PINR, 74281-9, AHP, CMP, THYR, FEPR, CBCA, 10638-5, 53392-2, 1967-11, 2283-12, 2275-08 #### [facility] ([id number]) [address] [facility] [facility], [address] [place], [place] [address]Kbchdfe [Mass/Vol]5.7 g/dLLow6.0-8.0ProVan Wert County Hospital Comment on above:Performed By: #### 85375-0, 9, PINR, 35806-5, AHP, CMP, THYR, FEPR, CBCA, , 95650-0, 1967-11, 2283-12, 2275- #### [facility] ([id number]) [address] [facility], [address] [place], [place] [address]Fubab 1996 panelon 76-45-8242Tpqsfmrfxcy [Mass/Vol]135 mg/dLLow 150 - 200 mg/dLOhio Valley Hospital SystemCholesterol in HDL [Mass/Vol]25 mg/dLLow39 - PINF mg/dLKettering Health Washington TownshipComment on above: HDL <40 mg/dL - High Risk HDL > or = 40mg/dL- Desirable HDL >60 mg/dL - Negative Risk Cholesterol in LDL [Mass/Vol]96 mg/dLNINF - 130 mg/dLOhio Valley Hospital System Comment on above: LDL <100 mg/dL - Desirable LDL >160 mg/dL - High Risk Cholesterol in VLDL [Mass/Vol]14 mg/dL0 - 30 mg/dLOhio Valley Hospital System Cholesterol.total/Cholesterol in HDL [Mass ratio]5.4 {ratio}High1.0 - 5.0 [facility] TownshipInterpretation and review of laboratory resultsAbnormal [facility] TownshipTriglyceride [Mass/Vol]70 mg/dL27 - 150 mg/dLOhio Valley Hospital SystemOhio Valley Hospital SystemCholesterol [Mass/Vol]135 mg/pYQwf180-580 [facility] HospitalComment on above:Performed By: #### 50179-3, 9, PINR, 96341-2, AHP, CMP, THYR, FEPR, CBCA, 34224-8, 71477-5, 1967-11, 8, 2275- #### [facility] ([id number]) [address] [facility], [address] [place], [place] [address]Kzuyqwstcgh in HDL [Mass/Vol]25 mg/dLLow>39ProVan Wert County HospitalComment on above:Result Comment: HDL <40 mg/dL - High Risk HDL > or = 40mg/dL- Desirable HDL >60 mg/dL - Negative Risk Performed By: #### 84704-1, 2132-01, PINR, 66370-3, AHP, CMP, THYR, FEPR, CBCA, , , 1967-11, 2283-12, 2275-08 #### [facility] ([id number]) [address] [facility], [address] [place], [place] [address]Miqkhkzdnsc in LDL [Mass/Vol]96 mg/dLNormal<130ProVan Wert County HospitalComment on above:Result Comment: LDL <100 mg/dL - Desirable LDL >160 mg/dL - High Risk Performed By: #### 13248-3, 9, PINR, 39550-9, AHP, CMP, THYR, FEPR, CBCA, , , 1967-11, 2283-12, 2275-08 #### [facility] ([id number]) [address] [facility], [address] [place], [place] [address]Fouporktiwb in VLDL [Mass/Vol]14 mg/dLNormal0-30ProTrinity Health System on above:Performed By: #### 13786-8, 9, PINR, 94286-6, AHP, CMP, THYR, FEPR, CBCA, 59375-1, 20816-6, 1967-11, 2283-12, 2275-08 #### [facility] ([id number]) [address] [facility], [address] [place], [place] [address]ASOSOANROAM:HDL5.4High1.0-5.0ProVan Wert County HospitalComment on above:Performed By: #### 67783-0, 2131-9, PINR, 96230-0, AHP, CMP, THYR, FEPR, CBCA, 42319-9, 77889-4, 1967-11, 8, 2275-4 #### [facility] ([id number]) [address] [facility], [address] [place], [place] [address]Yicjudxeakcw [Mass/Vol]70 mg/jOZdjivn69-661MooYdhire Toledo HospitalComment on above:Performed By: #### 04130-1, 9, PINR, 92448-9, AHP, CMP, THYR, FEPR, CBCA, 41028-8, 08504-2, 1967-11, 2283-12, 2275-08 #### [facility] ([id number]) [address] [facility], [address] [place], [place] [address]Evrwe panelon 52-26-4552Qxdsbnx [Mass/Vol]2.9 g/dLLow3.2 - 5.3 g/dLProMedica Health SystemALP [Catalytic activity/Vol]65 U/L39 - 130 U/L [facility] Health SystemALT No additional P-5'-P [Catalytic activity/Vol]20 U/L0 - 40 U/LProMedica Health SystemAST [Catalytic activity/Vol]31 U/L0 - 41 U/L [facility] Health SystemBilirubin [Mass/Vol]1.3 mg/dLHigh0.3 - 1.2 mg/dLProMedica Health SystemBilirubin.direct [Mass/Vol]0.5 mg/dLHigh0.0 - 0.4 mg/dLProEncompass Health Rehabilitation Hospital Of [facility] Alabama Health SystemInterpretation and review of laboratory resultsAbnormalProEncompass Health Rehabilitation Hospital Of [facility] Alabama Health SystemProtein [Mass/Vol]5.7 g/dLLow6.0 - 8.0 g/dLProKindred Hospital Lima System Pro[facility]ica [facility] SystemMAGNESIUMon 26-38-6463Azxtmfxzy [Mass/Vol]2.5 mg/dLNormal 1.8-2.6Martin Memorial HospitalComment on above:Performed By: #### 47400-3, 2131-9, PINR, 34978-8, AHP, CMP, THYR, FEPR, CBCA, 44507-3, 16282-1, 1967-, 8, 2275- #### [facility] ([id number]) [address], [address] [place], [place] [address]Nmyoavtaswx 93-24-4416Kdwqmlnqc [Mass/Vol]2.5 mg/dL1.8 - 2.6 mg/dLKettering Health Washington TownshipNo Panel Informationon 49-99-7357VogJxfsezParma Community General HospitalProKindred Hospital Lima SystemPLATELET COUNT AND MPVon 89-93-1378Notkrwwz mean volume (Bld) [Entitic vol]8.7 fLNormal7-12ProMedKettering Health DaytonComment on above:Performed By: #### 65754-1, 2131-9, PINR, 35117-1, AHP, CMP, THYR, FEPR, CBCA, 93784-1, 00809-3, 1967-11, 2283-12, 2275- #### [facility] ([id number]) [address], [address] [place], [place] [address]Lapsznzfs (Bld) [#/Vol]277 10*3/bPOkojub545-239SynEjadnpMartin Memorial HospitalComment on above:Performed By: #### 25787-3, 2131-9, PINR, 20485-9, AHP, CMP, THYR, FEPR, CBCA, 85578-6, 33018-3, 1967-11, 2283-12, 2275- #### [facility] ([id number]) [address], [address] [place], [place] [address]LCLQRCKXYka 90-60-8342Mbngggcvc [Moles/Vol]3.3 mmol/LLow3.5-5.0 [facility] HospitalComment on above:Performed By: #### 98245-9, 2131-9, PINR, 67731-8, AHP, CMP, THYR, FEPR, CBCA, 52259-3, 14794-8, 1967-7, 2283-8, 6-4 #### [facility] ([id number]) [address], [address] [place], [place] [address]XDSFSAP AND INRon 30-97-4649ZRH Coag (PPP) [Relative time]1.2 {INR}High0.8-1.1PAvita Health SystemComment on above:Performed By: #### 04236-0, 2131-9, PINR, 49477-9, AHP, CMP, THYR, FEPR, CBCA, 42326-3, 99338-1, 1967-, 2283-12, 6-4 #### [facility] ([id number]) [address], [address] [place], [place] [address]TT Coag (PPP) [Time]13.9 sHigh9.8-13.2PAvita Health System Comment on above:Performed By: #### 82178-8, 2131-9, PINR, 97485-4, AHP, CMP, THYR, FEPR, CBCA, 25224-5, 31031-9, 1967-11, 2283-12, 6-4 #### [facility] ([id number]) [address], [address] [place], [place] [address]Cwoxibab counton 79-08-5317Mqzljkjp mean volume (Bld) [Entitic vol]8.7 fL7 - 12 [facility] SystemPlatelets (Bld) [#/Vol]277 10*3/uL [facility] TownshipPotassiumon 86-87-5440Fsrfxyvcx [Moles/Vol]3.3 mmol/LLow 3.5 - 5.0 mmol/LProMedFayette County Memorial Hospital SystemPotassium [Moles/Vol]on 06-08-2024 Interpretation and review of laboratory resultsAbRichland HospitalProtime & INRon 32-28-9282GVU Coag (PPP) [Relative time] 1.2 {INR}[facility] HospitalInterpretation and review of laboratory resultsAbnoUNC HealthPT Coag (PPP) [Time]13.9 Friends HospitalaPTT Coag (PPP) [Time]on 06-08-2024 Interpretation and review of laboratory resultsAbnoFormerly named [facility] & Oak[facility] Care CenteraPTT Coag (Bld) [Time]38 [address] StreetComschoolcraft memorial hospital on above:Performed By: #### 72020-3, 2131-9, PINR, 76255-5, AHP, CMP, THYR, FEPR, CBCA, 25656-2, 31401-6, 1967-, 2283-8, 2276-4 #### [facility] ([id number]) [address] [facility], [address] [place], [place] [address]Tanzjyomeouezg and review of laboratory resultsAbCanonsburg HospitalaPTT Coag (Bld) [Time]80 [address]Comschoolcraft memorial hospital on above:Performed By: #### 78889-9, 2131-9, PINR, 83468-3, AHP, CMP, THYR, FEPR, CBCA, 91308-1, 76345-4, 1967-, 2283-8, 2276-4 #### [facility] ([id number]) [address] [facility], [address] [place], [place] [address]UWAGB HEPATITIS PANELon 77-05-5064XPMK HCV W/PCR REFLX Non-ReactiveNoMcKitrick HospitalComschoolcraft memorial hospital on above:Result Comment: NEW TEST METHOD NOTE If recent infection suspected, recommend repeat testing (>2 months). Rpazrw-ee-kakgyd ratio is <1.00.Performed By: #### 72432-1, 2-9, PINR, 54121- 9, AHP, CMP, THYR, FEPR, CBCA, 51838-4, 17549-7, 1967-11, 2283-12, 2275- #### [facility] ([id number]) [address] [facility], [address] [place], [place] [address]OTCAYNJHJ A IGMNon-ReactiveNormalNRCTMartin Memorial Hospital Comment on above:Result Comment: NEW TEST METHODPerformed By: #### 79617-2, 2131-9, PINR, 48010-0, AHP, CMP, THYR, FEPR, CBCA, 77867-4, 18881-0, 1967-11, 2283-12, 2275- #### [facility] ([id number]) [address] [facility], [address] [place], [place] [address]ZRGKWRYDO B CORE IGMNon-ReactiveNormalNRCTMartin Memorial HospitalComment on above:Result Comment: NEW TEST METHODPerformed By: #### 62522-5, 2131-9, PINR, 74955-4, AHP, CMP, THYR, FEPR, CBCA, 83821-0, 97840-1, 1967-11, 2283-12, 2275- #### [facility] ([id number]) [address] [facility] [place], [place] [address]KRIDLQWNK B SURF AGNon-ReactiveNormalNRCTMartin Memorial HospitalComment on above:Result Comment: NEW TEST METHODPerformed By: #### 00494-5, 2131-9, PINR, 08543-5, AHP, CMP, THYR, FEPR, CBCA, 67275-7, 93503-4, 1967-11, 2283-12, 2275-08 #### [facility] ([id number]) [address] [facility], [address] [place], [place] [address]RSKHHOHam 37-36-2862Hpkyfad (P) [Moles/Vol]32 umol/SNzaqbg45-83 [facility] Memorial HospitalComment on above:Result Comment: NEW REFERENCE RANGE Performed By: #### 26532-0, 2-9, PINR, 79206-4, AHP, CMP, THYR, FEPR, CBCA, 97655-4, 09072-6, 1967-7, 2284-8, 2276-4 #### [facility] ([id number]) [address] [facility] [facility], [address] [place], [place] [address]DAGGsc 68-35-6125pNRP Coag (PPP) [Time]52 [facility] SystemaPTT Coag (PPP) [Time]37 sPrMercy Memorial Hospital SystemAmmoniaon 06-07-2024 Ammonia (P) [Moles/Vol]32 umol/L18 - 72 umol/LProMedica Centerville SystemComment on above:NEW REFERENCE RANGEAmmonia (P) [Moles/Vol]on 34-84-2816PibRherqhKettering Health Washington TownshipAnti XA unfractionated heparinon 21-29-2239Raoscla unfractionated Chromogenic method Qn (PPP)0.14LowKettering Health Washington TownshipComment on above: Optimal time for testing is 6 hrs post dosage This test is specific for monitoring patients on UFH, and is not recommended for use with other Anti-Xa medications. BILIRUBIN,DIRECTon 71-24-1877Lehkkytxa.direct [Mass/Vol]0.6 mg/dLHigh0.0-0.4 [facility] HospitalComment on above:Performed By: #### 06408-3, 2131-9, PINR, 29494-4, AHP, CMP, THYR, FEPR, CBCA, 79240-8, 80762-6, 1967-7, 2283-8, 2276-4 #### [facility] ([id number]) [address] [facility] [facility], [address] [place], [place] [address]Ykptfvjcd, directon 56-25-6331Ifcdpyjaz.direct [Mass/Vol]0.6 mg/dLHigh0.0 - 0.4 mg/dLKettering Health Washington TownshipBilirubin.direct [Mass/Vol]on 83-85-1393Rqysbvtofudaqy and review of laboratory resultsAbnormalProMedica Health SystemProMedica Health SystemCBC AND AUTO DIFFon 92-38-0583SUKXVGFJ BASOPHIL0.1 X10E9/LNormal0.0-0.2PAvita Health SystemComment on above: Performed By: #### 48883-3, 2131-9, PINR, 34933-1, AHP, CMP, THYR, FEPR, CBCA, 84884-1, 37476-3, 1967-11, 2283-12, 2275- #### [facility] ([id number]) [address], [address] [place], [place] [address]GXBMIVBK NEUTROPHIL5.7 X10E9/LNormal1.5-6.6ProVan Wert County HospitalComment on above:Performed By: #### 08791-0, 9, PINR, 52675-7, AHP, CMP, THYR, FEPR, CBCA, 27022-4, 61986-5, 1967-11, 2283-12, 2275- #### [facility] ([id number]) [address] [facility], [address] [place], [place] [address]Vycbtfpqxjzm Ql (Bld)2+AbnormalNONEPAvita Health System Comment on above:Performed By: #### 77489-4, 9, PINR, 83284-0, AHP, CMP, THYR, FEPR, CBCA, 74919-5, 40652-2, 1967-11, 2283-12, 2275- #### [facility] ([id number]) [address], [address] [place], [place] [address]Eliqxtice/100 WBC (Bld)1.8 %NormalMartin Memorial Hospital Comment on above:Performed By: #### 14120-1, 9, PINR, 39602-1, AHP, CMP, THYR, FEPR, CBCA, 61478-1, 68084-6, 1967-11, 2283-12, 2275-4 #### [facility] ([id number]) [address] [facility], [address] [place], [place] [address]Ibwjdslkeql (Bld) [#/Vol]0.1 10*3/uLNormal0.0-0.4ProVan Wert County HospitalComment on above:Performed By: #### 65320-7, 9, PINR, 89206- 9, AHP, CMP, THYR, FEPR, CBCA, 86447-1, 12576-0, 1967-, 2283-12, 2275-4 #### [facility] ([id number]) [address] [facility], [address] [place], [place] [address]Jyqqdoeixhl/100 WBC (Bld)1.0 %NormalProVan Wert County Hospital Comment on above:Performed By: #### 67036-4, 9, PINR, 62553-5, AHP, CMP, THYR, FEPR, CBCA, 55917-4, 29227-1, 1967-11, 2283-12, 2275-4 #### [facility] ([id number]) [address] [facility], [address] [place], [place] [address]Uakmrutwiov distribution width (RBC) [Ratio]23.8 %High11.5-15.0 [facility] Memorial HospitalComment on above:Performed By: #### 13909-3, 9, PINR, 40356-2, AHP, CMP, THYR, FEPR, CBCA, 65490-1, 69752-6, 1967-11, 2283-12, 2275- #### [facility] ([id number]) [address] [facility], [address] [place], [place] [address]Nadbubvpec (Bld) [Volume fraction]35.2 %Xus69-38CkjEcabpkVan Wert County HospitalComment on above:Performed By: #### 48514-2, 9, PINR, 23705-1, AHP, CMP, THYR, FEPR, CBCA, 69974-8, 53461-7, 1967-11, 8, 2275-4 #### [facility] ([id number]) [address] [facility], [address] [place], [place] [address]Mgmbtrkacd (Bld) [Mass/Vol]10.9 g/dLLow13.0-17.0Pro[facility] Memorial HospitalComment on above:Performed By: #### 96905-7, 9, PINR, 56422-1, AHP, CMP, THYR, FEPR, CBCA, 23194-5, 71809-3, 1967-11, 2283-12, 2275- #### [facility] ([id number]) [address] [facility], [address] [place], [place] [address]SIPPPYFRXAR2+AbnormalNONEProMedKettering Health DaytonComment on above:Performed By: #### 51165-0, 2132-01, PINR, 75001-6, AHP, CMP, THYR, FEPR, CBCA, 27838-3, 75556-0, 1967-11, 8, 2275- #### [facility] ([id number]) [address] [facility], [address] [place], [place] [address]Gkqsbnezayc (Bld) [#/Vol]0.2 10*3/uLLow1.0-3.5Pro[facility] District Memorial HospitalComment on above:Performed By: #### 39944-5, 2132-01, PINR, 94937-0, AHP, CMP, THYR, FEPR, CBCA, 98948-7, 96265-4, 1967-11, 2283-12, 2275- #### [facility] ([id number]) [address] [facility], [address] [place], [place] [address]Uwuvpdldcqs/100 WBC (Bld)3.0 %NormalProVan Wert County Hospital Comment on above:Performed By: #### 12431-8, 2132-01, PINR, 31551-0, AHP, CMP, THYR, FEPR, CBCA, 14082-6, 04694-4, 1967-, 2283-8, 2276-4 #### [facility] ([id number]) [address] [facility], [address] [place], [place] [address]ZGR (RBC) [Entitic mass]22.6 xwQyn61-34JqwZnjtyfMartin Memorial Hospital Comment on above:Performed By: #### 70459-4, 9, PINR, 27036-2, AHP, CMP, THYR, FEPR, CBCA, 24997-0, 79721-5, 1967-, 2283-8, 2275-4 #### [facility] ([id number]) [address] [place] [address], [address] [place], [place] [address]YMJZ (RBC) [Mass/Vol]31.1 g/yIHdx40-05DnaOahnovMartin Memorial Hospital Comment on above:Performed By: #### 87411-8, 2132-01, PINR, 45530-1, AHP, CMP, THYR, FEPR, CBCA, 03614-3, 21126-2, 1967-11, 2283-12, 2275- #### [facility] ([id number]) [address] [place] [address], [address] [place], [place] [address]WNZ (RBC) [Entitic vol]73 xVWkr20-955CydUwhnceMartin Memorial Hospital Comment on above:Performed By: #### 61280-4, 9, PINR, 41664-9, AHP, CMP, THYR, FEPR, CBCA, 18320-4, 68216-2, 1967-11, 2283-12, 2275-4 #### [facility] ([id number]) [address] [place] [address], [address] [place], [place] [address]Fgpufatcd (Bld) [#/Vol]0.3 10*3/uLNormal0-0.9Martin Memorial HospitalComment on above:Performed By: #### 20850-1, 2132-9, PINR, 93363-2, AHP, CMP, THYR, FEPR, CBCA, 13567-7, 94716-7, 1967-11, 2283-12, 2275- #### [facility] ([id number]) [address], [address] [place], [place] [address]Shwgiwrox/100 WBC (Bld)5.2 %NormalMartin Memorial Hospital Comment on above:Performed By: #### 93458-4, 9, PINR, 69178-1, AHP, CMP, THYR, FEPR, CBCA, 75633-7, 03548-0, 1967-, 2283-12, 2275- #### [facility] ([id number]) [address], [address] [place], [place] [address]Wgceblexzmy/100 WBC (Bld)89.0 %NormalMartin Memorial Hospital Comment on above:Performed By: #### 59358-7, 9, PINR, 88184-4, AHP, CMP, THYR, FEPR, CBCA, 92825-3, 49604-6, 1967-11, 2283-12, 2275- #### [facility] ([id number]) [address], [address] [place], [place] [address]FZTWDHCSD2+AbnormalNONEProMedica Joint Township District Memorial HospitalComment on above:Performed By: #### 06891-9, 9, PINR, 12961-8, AHP, CMP, THYR, FEPR, CBCA, 77573-2, 70536-4, 1967-11, 2283-12, 2275- #### [facility] ([id number]) [address], [address] [place], [place] [address]Lpccyhhh mean volume (Bld) [Entitic vol]8.7 fLNormal7-12 [facility] HospitalComment on above:Performed By: #### 78437-6, 9, PINR, 06927-3, AHP, CMP, THYR, FEPR, CBCA, 43859-2, 99449-9, 1967-, 2283-8, 2275-4 #### [facility] ([id number]) [address], [address] [place], [place] [address]Beoifyymn (Bld) [#/Vol]259 10*3/oTZmicqq727-690DwpVwynzn [place] HospitalComment on above:Performed By: #### 27053-2, 2131-9, PINR, 63546-4, AHP, CMP, THYR, FEPR, CBCA, 52900-6, 07577-2, 1967-, 2283-12, 2275- #### [facility] ([id number]) [address], [address] [place] [address]DIT COUNT4.84 X10E12/LNormal4.10-5.70ProVan Wert County Hospital Comment on above:Performed By: #### 87127-7, 2131-9, PINR, 48911-7, AHP, CMP, THYR, FEPR, CBCA, 82782-4, 70404-6, 1967-11, 2283-12, 2275- #### [facility] ([id number]) [address], [address] [place], [place] [address]RIG (Bld) [#/Vol]6.4 10*3/uLNormal4.0-11.0ProVan Wert County HospitalComment on above:Performed By: #### 12018-4, 2131-9, PINR, 35132-3, AHP, CMP, THYR, FEPR, CBCA, 03209-4, 01231-0, 1967-11, 2283-12, 2275-4 #### [facility] ([id number]) [address], [address] [place], [place] [address]IJP auto differentialon [id number] Ql (Bld)2+ AbnormalNONE^NONEProMedica Health SystemBasophils (Bld) [#/Vol]0.1 10*3/uL [facility] TownshipBasophils/100 WBC (Bld)1.8 %[facility] Eosinophils (Bld) [#/Vol]0.1 10*3/uLKettering Health Washington TownshipEosinophils/100 WBC (Bld)1 %[facility] TownshipErythrocyte distribution width (RBC) [Ratio]23.8 %High11.5 - 15.0 %[facility] TownshipHematocrit (Bld) [Volume fraction]35.2 %Low39 - 49 %[facility] TownshipHemoglobin (Bld) [Mass/Vol]10.9 g/dLLow13.0 - 17.0 g/dLKettering Health Washington TownshipHypochromia Ql (Bld)1+AbnormalNONE^NONE [facility] TownshipInterpretation and review of laboratory resultsAbnormal [facility] TownshipLymphocytes (Bld) [#/Vol]0.2 10*3/uLLowKettering Health Washington TownshipLymphocytes/100 WBC (Bld)3 %[facility] TownshipMCH (RBC) [Entitic mass]22.6 pgLow27 - 34 pgPRiverside Methodist HospitalMCHC (RBC) [Mass/Vol]31.1 g/dL Low32 - 36 g/dLKettering Health Washington TownshipMCV (RBC) [Entitic vol]73 fLLow80 - 100 fL [facility] TownshipMonocytes (Bld) [#/Vol]0.3 10*3/uLKettering Health Washington Township Monocytes/100 WBC (Bld)5.2 %[facility] TownshipNeutrophils (Bld) [#/Vol]5.7 10*3/uLKettering Health Washington TownshipNeutrophils/100 WBC (Bld)89 %[facility] TownshipOvalocytes LM Ql (Bld)2+AbnormalNONE^NONEKettering Health Washington TownshipPlatelet mean volume (Bld) [Entitic vol]8.7 fL7 - 12 fLPRiverside Methodist HospitalPlatelets (Bld) [#/Vol]259 10*3/uLOhio Valley Hospital SystemRBC (Bld) [#/Vol]4.84 10*6/uL [facility] TownshipWBC corrected for nucl RBC Auto (Bld) [#/Vol]6.4Magee Rehabilitation HospitalCOMPREHENSIVE METABOLIC PANELon 06-07-2024 Albumin [Mass/Vol]2.9 g/dLLow3.2-5.3ProMedKettering Health DaytonComment on above: Performed By: #### 60055-9, 2132-01, PINR, 05161-0, AHP, CMP, THYR, FEPR, CBCA, 31851-0, 73056-5, 1967-7, 2283-8, 6-4 #### [facility] ([id number]) [address] [place] [address], [address] [place], [place] [address]KCO [Catalytic activity/Vol]60 U/BKvzxsf86-261GkcOnwndm [place] HospitalComment on above:Performed By: #### 31661-6, 2132-01, PINR, 28200-5, AHP, CMP, THYR, FEPR, CBCA, 19054-4, 50552-2, 1967-, 8, 2275-4 #### [facility] ([id number]) [address] [place] [address], [address] [place], [place] [address]OAE [Catalytic activity/Vol]21 U/LNormal0-40ProVan Wert County HospitalComment on above:Performed By: #### 43594-3, 2132-01, PINR, 53582-2, AHP, CMP, THYR, FEPR, CBCA, 34325-7, 95962-7, 1967-, 8, 2275-4 #### [facility] LAB ([id number]) [address] [place] [address], [address] [place], [place] [address]Jpbkx gap [Moles/Vol]11 mmol/LNormal5-15ProVan Wert County HospitalComment on above:Performed By: #### 13825-9, 2132-01, PINR, 47864-1, AHP, CMP, THYR, FEPR, CBCA, 72777-1, 07798-7, 1967-, 2283-8, 2275-4 #### [facility] ([id number]) [address] [facility] [facility], [address] [place], [place] [address]YAU [Catalytic activity/Vol]29 U/LNormal0-41ProMediMiami Valley Hospital HospitalComment on above:Performed By: #### 89950-9, 2132-01, PINR, 91565-2, AHP, CMP, THYR, FEPR, CBCA, 70252-1, 66350-4, 1967-, 2283-8, 2275-4 #### [facility] ([id number]) [address] [facility], [address] [place], [place] [address]Rtlixujse [Mass/Vol]1.6 mg/dLHigh0.3-1.2ProMedMercy Health St. Charles Hospital HospitalComment on above:Performed By: #### 46365-6, 2132-01, PINR, 79917-0, AHP, CMP, THYR, FEPR, CBCA, 87582-1, 25123-0, 1967-11, 2283-12, 2275-4 #### [facility] ([id number]) [address] [facility] [facility], [address] [place], [place] [address]Gjfegtq [Mass/Vol]8.6 mg/dLNormal8.5-10.5ProMedMercy Health St. Charles Hospital HospitalComment on above:Performed By: #### 49041-2, 9, PINR, 25233-9, AHP, CMP, THYR, FEPR, CBCA, 63247-4, 56992-3, 1967-11, 2283-12, 2275-4 #### [facility] ([id number]) [address] [facility] [facility], [address] [place], [place] [address]Docvobbd [Moles/Vol]106 mmol/XNzieng16-918NemWgkcse [place]edo HospitalComment on above:Performed By: #### 37853-3, 2132-01, PINR, 47690-1, AHP, CMP, THYR, FEPR, CBCA, 91125-8, 09756-5, 1967-11, 8, 2275-08 #### [facility] ([id number]) [address], [address] [place], [place] [address]GG6 [Moles/Vol]27 mmol/WNyriod63-30SxaAxbrwxAvita Health System Comment on above:Performed By: #### 55262-9, 9, PINR, 51916-4, AHP, CMP, THYR, FEPR, CBCA, 86744-9, 71583-9, 1967-11, 2283-12, 2275-08 #### [facility] ([id number]) [address] [facility] [place] [address]Weisletrds [Mass/Vol]1.44 mg/dLHigh0.60-1.30ProVan Wert County HospitalComment on above:Result Comment: METHOD TRACEABLE TO IDMS STANDARD Performed By: #### 71364-1, 9, PINR, 51922-3, AHP, CMP, THYR, FEPR, CBCA, 08485-2, 25670-8, 1967-11, 2283-12, 2275-08 #### [facility] ([id number]) [address] [facility], [address] [place] [address]ZII/1.73 sq M.predicted among non-blacks MDRD (S/P/Bld) [Vol rate/Area]53 mL/min/{1.73_m2}Low>59ProVan Wert County HospitalComment on above: Result Comment: Reported eGFR is based on the CKD-EPI 2020 equation that does not use a race coefficient.Performed By: #### 08603-7, 9, PINR, 38903-8, AHP, CMP, THYR, FEPR, CBCA, 30662-4, 89177-7, 1967-11, 2283-12, 2275- #### [facility] ([id number]) [address] [facility], [address] [place], [place] [address]Lhqdfqm [Mass/Vol]91 mg/yAUqunta52-75GnnKyufarMartin Memorial Hospital Comment on above:Performed By: #### 68027-4, 2132-01, PINR, 92088-6, AHP, CMP, THYR, FEPR, CBCA, 92864-7, 74775-5, 1967-11, 2283-12, 2275-4 #### [facility] ([id number]) [address] [facility], [address] [place], [place] [address]Chfmmxzbj [Moles/Vol]3.3 mmol/LLow3.5-5.0ProVan Wert County HospitalComment on above:Performed By: #### 65981-2, 2132-01, PINR, 39629-6, AHP, CMP, THYR, FEPR, CBCA, 12575-4, , 1967-11, 2283-12, 2275- #### [facility] ([id number]) [address] [facility], [address] [place], [place] [address]Qyqlfot [Mass/Vol]5.4 g/dLLow6.0-8.0[facility] Comment on above:Performed By: #### 74219-4, 2132-01, PINR, 43669-6, AHP, CMP, THYR, FEPR, CBCA, 43047-7, 25848-9, 1967-11, 2283-12, 2275-4 #### [facility] ([id number]) [address] [facility], [address] [place], [place] [address]Fbgeym [Moles/Vol]144 mmol/BOlnsmo442-022JhbSlhryh [place]edo HospitalComment on above:Performed By: #### 67967-3, 2132-01, PINR, 95035-4, AHP, CMP, THYR, FEPR, CBCA, 66706-5, 25197-1, 1967-11, 2283-12, 2275-4 #### [facility] ([id number]) [address], [address] [place], [place] [address]Weec nitrogen [Mass/Vol]30 mg/dLHigh5-27ProMedica Joint Township District Memorial HospitalComment on above:Performed By: #### 02607-1, 2132-9, PINR, 54770-8, AHP, CMP, THYR, FEPR, CBCA, 92931-7, 91059-2, 1968-7, 2284-8, 2276-4 #### [facility] ([id number]) [address], [address] [place], [place] [address]JM ABDOMEN AND PELVIS WO CONTon 41-06-4762IU ABDOMEN AND PELVIS WO CONTCT ABDOMEN AND [...] by Baldev Hyde MD on 06/07/2024 10:07 [facility]CT [facility] Pelvis WO contraston 09-21-5881JOACTUAI INFORMATION: Abdominal pain radiating to the back, [...] by Baldev Hyde MD on 06/07/2024 10:07 [facility], Baldev Pride MD - 06/07/2024 CLINICAL INFORMATION: [...] Baldev Hyde MD on 06/07/2024 10:07 AM ReichholdRadiology Study observation (narrative)ReichholdCT Abdomen and Pelvis WO contrastOrdered By: Baldev Hyde on 06-07-2024 [employer] Work Phone: CT BRAIN WO CONTon 36-69-0358UV BRAIN WO CONTCT BRAIN WO CONT CT [...] by Gab Clay MD on 06/07/2024 10:01 [facility]on 06-07-2024 CT HEAD WITHOUT [...] Gab Clay MD on 06/07/2024 10:[address] [facility] SystemRadiology Study observation (narrative)[facility] TownshipCobalamin (Vitamin B12) [Mass/Vol]on 82-51-4132Offmoolqgoobbm and review of laboratory resultsAbnormalGundersen St Joseph's Hospital and Clinics SystemComprehensive metabolic panelon 06-07-2024 Albumin [Mass/Vol]2.9 g/dLLow3.2 - 5.3 g/dLProUniversity Hospitals Beachwood Medical Centerca Health SystemALP [Catalytic activity/Vol]60 U/L39 - 130 U/LProMedica Health SystemALT No additional P-5'-P [Catalytic activity/Vol]21 U/L0 - 40 U/LProMedica Health SystemAnion gap [Moles/Vol]11 mmol/L5 - 15 mmol/LProMedica Health SystemAST [Catalytic activity/Vol]29 U/L0 - 41 U/LProMedica Health SystemBilirubin [Mass/Vol]1.6 mg/dLHigh0.3 - 1.2 mg/dLWashington County Tuberculosis HospitalMedica Health SystemCalcium [Mass/Vol]8.6 mg/dL8.5 - 10.5 mg/dLSelect Medical [facility]Health Rehabilitation Hospital Health SystemChloride [Moles/Vol]106 mmol/L98 - 109 mmol/L [facility] HospitaledicBethesda Hospital SystemCO2 [Moles/Vol]27 mmol/L22 - 32 mmol/LProMedica Health SystemCreatinine [Mass/Vol]1.44 mg/dLHigh0.60 - 1.30 mg/dLOhio Valley Hospital SystemComment on above:METHOD TRACEABLE TO IDMS STANDARDeGFR (CKD-EPI)non-race jhfbhcxmv09Pzn- PINFProMedica Health SystemComment on above: Reported eGFR is based on the CKD-EPI 2020 equation that does not use a race coefficient. Glucose [Mass/Vol]91 mg/dL65 - 99 mg/dLProKindred Hospital Lima SystemPotassium [Moles/Vol]3.3 mmol/LLow3.5 - 5.0 mmol/LProMedica Health SystemProtein [Mass/Vol]5.4 g/dLLow6.0 - 8.0 g/dLProMediia Health SystemSodium [Moles/Vol]144 mmol/L134 - 146 mmol/LPrCox Walnut Lawnica Health SystemUrea nitrogen [Mass/Vol]30 mg/dL High5 - 27 mg/dLKettering Health Washington TownshipDRUG SCREEN, URINEon 06-07-2024 AMPHETAMINE/METHAMPNegativeNormalNEGProVan Wert County HospitalComment on above: Result Comment: AMPH/METH screening cut off = 1000 ng/mLPerformed By: #### 77064-3, 9, PINR, 69519-4, AHP, CMP, THYR, FEPR, CBCA, 42228-3, 51890-1, 1967-7, 4-8, 2276-4 #### [facility] ([id number]) [address] [place] [address], [address] [place], [place] [address]SADSSCMRMYSXQvomiminKjxiqcCELWncNtrdvp [place] HospitalComment on above:Result Comment: Barbiturates screening cut off value = 200 ng/mLPerformed By: #### 40868-2, 9, PINR, 63077-5, AHP, CMP, THYR, FEPR, CBCA, 94763-9, 49914-8, 1967-, 2283-8, 2276-4 #### [facility] ([id number]) [address] [place] [address], [address] [place], [place] [address]LXZCKMUCAPRFXVVYnhxqwypXbnlkcGJKKfzSamjrd [place] HospitalComment on above:Result Comment: Benzodiazepines screening cut off value = 200 ng/mL Performed By: #### 16613-8, 9, PINR, 78067-2, AHP, CMP, THYR, FEPR, CBCA, 06015-4, 51513-6, 1967-11, 2283-8, 6-4 #### [facility] ([id number]) [address], [address] [place], [place] [address]ZTZZZTJYUHVOFsckuiajVbdnqfwrUZPXdoEpwgwc [place] HospitalComment on above:Result Comment: Confirmation available upon request. Cannabinoids/THC screening cut off value = 50 ng/mLPerformed By: #### 37451-8, 9, PINR, 68450-7, AHP, CMP, THYR, FEPR, CBCA, 03710-6, 05927-5, 1967-, 2283-12, 2275- #### [facility] ([id number]) [address], [address] [place], [place] [address]UFDFGNE METABOLITENegativeNormalNEGMartin Memorial Hospital Comment on above:Result Comment: Cocaine screening cut off value = 300 ng/mL Performed By: #### 55637-6, 9, PINR, 17161-4, AHP, CMP, THYR, FEPR, CBCA, 54385-3, 73679-9, 1967-11, 2283-12, 2275- #### [facility] ([id number]) [address], [address] [place], [place] [address]MQSZALRQyixgigaNefzxzRFLYzeLdjjmd [place] HospitalComment on above:Result Comment: Ecstasy screening cut off value = 500 ng/mL This report is intended for use in clinical monitoring or management of patients.Performed By: #### 86932-5, 2131-9, PINR, 88124-7, AHP, CMP, THYR, FEPR, CBCA, 67183-0, 32514-7, 1967-11, 2283-12, 2275- #### [facility] ([id number]) [address], [address] [place], [place] [address]GJCPKHQNSSsgdkblrSsaqbjDAKVzlJxeonv Bañuelos HospitalComment on above:Result Comment: Methadone screening cut off value = 300 ng/mL.Performed By: #### 95604-2, 2132-01, PINR, 81937-6, AHP, CMP, THYR, FEPR, CBCA, 06518-0, 31300-8, 1967-7, 2283-8, 2276-4 #### [facility] ([id number]) [address] [facility] [facility] [place], [place] [address]NILCDVBLxoxfptfIgfdxfJVDHapQsxiwz [place] HospitalComschoolcraft memorial hospital on above:Result Comment: Opiates screening cut off value = 300 ng/mL NOTE: This test is used for the detection of codeine, hydrocodone (>1000 ng/mL), morphine and hydromorphone (>900 ng/mL) in urine.Performed By: #### 51111-3, 2132-01, PINR, 48893-9, AHP, CMP, THYR, FEPR, CBCA, 26409-2, 08240-1, 1967-, 2283-8, 6-4 #### [facility] ([id number]) [address] [facility], [address] [place], [place] [address]VAVZYMFWLFgbdrtrgTbhiteEQDRbhRszvmz [place] HospitalComschoolcraft memorial hospital on above:Result Comment: Oxycodone screening cut off value = 300 ng/mL NOTE: This test is used for the detection of oxycodone and oxymorphone in urine.Performed By: #### 37132-6, 2132-01, PINR, 52270-2, AHP, CMP, THYR, FEPR, CBCA, 63263-8, 47887-9, 1967-, 2283-8, 6-4 #### [facility] ([id number]) [address] [facility], [address] [place], [place] [address]RCTOYGZWXHGJFAxejsxchOlyxclBTQHyzBkzrdv [place] HospitalComschoolcraft memorial hospital on above:Result Comment: Phencyclidine screening cut off value = 25 ng/mL Performed By: #### 93023-9, 2132-9, PINR, 14335-2, AHP, CMP, THYR, FEPR, CBCA, 49826-0, 02348-3, 1968-7, 2284-8, 2276-4 #### [facility] ([id number]) [address] [place] [address], [address] [place], [place] [address]Srqa Screen, Urineon 58-35-0372Xibatqvjkfse Screen method >1000 ng/mL Ql (U)NegativeNegative^NegativeProMedica Health [...] Tetrahydrocannabinol Screen method >50 ng/mL Ql (U)PositiveAbnormal Negative^NegativeKettering Health Washington TownshipComment on above:Confirmation available upon request. Cannabinoids/THC screening cut off value = 50 ng/mL [facility] TownshipEEGon 97-00-9658Vlgqag from the original result were not included. [...] or primary neurological disorders. Bertha Oakley MD [employer] Neurology/Neurophysiology [facility] MANUALLY TRANSCRIBED RESULTSEEGOrdered By: Bertha Oakley on 65-39-6427CniZidgwjKettering Health Washington Township Work Phone: FERRITINon 01-15-1902Ookmpvva [Mass/Vol]41 ng/mLNormal 24-336ProVan Wert County HospitalComment on above:Performed By: #### 58662-5, 2132-9, PINR, 17372-7, AHP, CMP, THYR, FEPR, CBCA, 51764-8, 53000-4, 1968-7, 2284-8, 2276-4 #### [facility] ([id number]) [address] [facility], [address] [place], [place] [address]Wopveqppzh 23-49-1910Cpkigjtu [Mass/Vol]41 ng/mL24 - 336 ng/mL [facility] TownshipFerritin [Mass/Vol]on 76-59-2583MuxDijhxbKettering Health Washington Township Folateon 25-61-0306Mwgnhn [Mass/Vol]22.7 ng/mL5.8 - PINF ng/mLKettering Health Washington TownshipComment on above:NEW REFERENCE RANGEFolate [Mass/Vol]on 06-07-2024 [facility] TownshipFOLIC ACID22.7 ng/mLNormal>5.8[facility] Comment on above:Result Comment: NEW REFERENCE RANGEPerformed By: #### 61598-7, 2131-9, PINR, 19944-8, AHP, CMP, THYR, FEPR, CBCA, 99230-4, 53477-3, 1967-, 2283-, 2275- #### [facility] ([id number]) [address] [place] [address], [address] [place], [place] [address]Oeyfjko Glucometer (BldC) [Mass/Vol]on 18-10-5552Fbbjeaf [Mass/Vol]86 mg/dL65 - 99 mg/dLMagee Rehabilitation Hospital Glucose [Mass/Vol]86 mg/mZUiqxvt41-98GpcTjdyowMartin Memorial HospitalHeparin unfractionated Chromogenic method Qn (PPP)on 59-21-3725Lervjxyephpwgv and review of laboratory resultsAbnormEagleville HospitalANTI XA UFH0.14 IU/mLLow0.30-0.70[facility] Memorial HospitalComment on above:Result Comment: Optimal time for testing is 6 hrs post dosage This test is specific for monitoring patients on UFH, and is not recommended for use with other Anti-Xa medications.Performed By: #### 46139-9, 2-9, PINR, 76045-3, AHP, CMP, THYR, FEPR, CBCA, 67681-1, 11021-1, 1967-11, 2283-12, 2275- #### [facility] ([id number]) [address] [place] [address], [address] [place], [place] [address]Vmqbcwwzx panel, acuteon 85-94-6972YAK IgM IA QlNon-Reactive Non-Reactive^Non-ReactiveKettering Health Washington TownshipComment on above:NEW TEST METHOD HBV core IgM IA XwGti-DozibtrhJkp-Hlstfsbv^Non-ReactiveKettering Health Washington Township Comment on above:NEW TEST METHODHBV surface Ag IA QlNon-Reactive Non-Reactive^Non-ReactiveKettering Health Washington TownshipComment on above:NEW TEST METHOD HCV Ab IA IfWvr-FzjfkhybOhc-Rloydqhb^Non-ReactiveKettering Health Washington TownshipComment on above:NEW TEST METHOD NOTE If recent infection suspected, recommend repeat testing (>2 months). Htdbsp-hi-rsgodh ratio is <1.00. [facility] TownshipIRON PROFILEon 22-35-1085Rwyk [Mass/Vol]16 ug/vSOsl73-253 [facility] HospitalComment on above:Performed By: #### 55942-3, 2132-01, PINR, 22174-0, AHP, CMP, THYR, FEPR, CBCA, 75810-8, 22053-2, 1967-11, 2283-12, 2275- #### [facility] ([id number]) [address] [facility], [address] [place], [place] [address]RMQS WLAWLFE977 ug/bRWahadf707-435ThoQgtzusMartin Memorial Hospital Comment on above:Performed By: #### 64170-8, 2132-01, PINR, 40483-9, AHP, CMP, THYR, FEPR, CBCA, 41305-6, 08907-2, 1967-11, 2283-12, 2275- #### [facility] ([id number]) [address] [facility], [address] [place], [place] [address]FTRT SATURATION5 % VDXKZRCXXOYpn43-31SwkSoeldq [facility] Comment on above:Performed By: #### 66824-1, 2132-01, PINR, 78550-8, AHP, CMP, THYR, FEPR, CBCA, 12659-8, 60560-5, 1967-11, 2283-12, 2275-4 #### [facility] ([id number]) [address], [address] [place], [place] [address]Jkxs and TIBCon 57-30-9960Ayzfoqfbacavco and review of laboratory resultsAbnormalProKindred Hospital Lima SystemIron [Mass/Vol]16 ug/dLLow50 - 212 ug/dLProKindred Hospital Lima SystemIron binding capacity [Mass/Vol]336 ug/dL250 - 425 ug/dLProKettering Health – Soin Medical Centern saturation [Mass fraction]5LowProParma Community General HospitalProKindred Hospital Lima SystemMAGNESIUMon 85-08-2481Pmxxentvt [Mass/Vol] 2.7 mg/dLHigh1.8-2.6[facility] HospitalComment on above:Performed By: #### 92216-3, 9, PINR, 00408-6, AHP, CMP, THYR, FEPR, CBCA, 16710-9, 32679-2, 1967-7, 4-8, 2276-4 #### [facility] ([id number]) [address], [address] [place], [place] [address]Ijbgqggnj [Mass/Vol]1.5 mg/dLLow1.8-2.6[facility] Comment on above:Performed By: #### 25931-9, 9, PINR, 96249-0, AHP, CMP, THYR, FEPR, CBCA, 97944-9, 08098-6, 1967-, 2283-8, 2276-4 #### [facility] ([id number]) [address], [address] [place], [place] [address]KO MRCP WITH MRI ABD WO CONTon 51-21-0247CW MRCP WITH MRI ABD WO CONTMR MRCP [...] by Gab Clay MD on 06/07/2024 8:32 [facility] Abdomen WO contraston 06-07-2024 History: [...] Clay MD on 06/07/2024 8:32 PM [facility] HospitalLiquid Health Labs [facility] AlpenaRadiology Study observation (narrative)[facility] TownshipMRCP Abdomen WO contrastOrdered By: Gab Clay on 51-88-5000RcwSrffav Health System Work Phone: Magnesiumon 53-66-4068Ikrnrmkki [Mass/Vol]2.7 mg/dL High1.8 - 2.6 mg/dLMetroHealth Cleveland Heights Medical CenterChlorogen [facility] AlpenaMagnesium [Mass/Vol]1.5 mg/dLLow1.8 - 2.6 mg/dLProParma Community General HospitalNo Panel Informationon 63-97-0260Egyrfrqwiceqyr and review of laboratory resultsAbnormalGundersen St Joseph's Hospital and Clinics SystemInterpretation and review of laboratory resultsAbnormThe MetroHealth SystemProDepartment of Veterans Affairs Medical Center-PhiladelphiaPOTASSIUMon 06-07-2024 Potassium [Moles/Vol]3.2 mmol/LLow3.5-5.0[facility] Memorial HospitalComment on above:Performed By: #### 95966-4, 2131-9, PINR, 65517-1, AHP, CMP, THYR, FEPR, CBCA, 15295-7, 48579-5, 1967-11, 2283-12, 2275- #### [facility] ([id number]) [address], [address] [place], [place] [address]SLHRBXW AND INRon 98-79-5482QCF Coag (PPP) [Relative time]1.3 {INR}High0.8-1.1PAvita Health SystemComment on above:Performed By: #### 68044-2, 2131-9, PINR, 91409-2, AHP, CMP, THYR, FEPR, CBCA, 64839-3, 48049-8, 1967-11, 2283-12, 2275- #### [facility] ([id number]) [address], [address] [place], [place] [address]NM Coag (PPP) [Time]15.5 sHigh9.8-13.2PAvita Health System Comment on above:Performed By: #### 17703-1, 2131-9, PINR, 01494-7, AHP, CMP, THYR, FEPR, CBCA, 68816-0, 14770-4, 1967-11, 2283-12, 2275-4 #### [facility] ([id number]) [address], [address] [place], [place] [address]Ctekmwpfxgz 01-40-0475Guajixeim [Moles/Vol]3.2 mmol/LLow3.5 - 5.0 mmol/LProMedica Corewell Health Butterworth HospitalProcalcitoninon 44-72-3888Vuxwakurccpap IA [Mass/Vol]0.27 ng/mLHighNINF - 0.05 ng/mLKettering Health Washington TownshipComment on above:NOTE <0.50 ng/mL - Low risk of severe sepsis and/or septic shock. <2.00 ng/mL - Recommend retesting within 6-24 hours. >2.00 ng/mL - High risk of sepsis and/or septic shock. Procalcitonin IA [Mass/Vol]on 92-27-3999Umvvluisbjquwf and review of laboratory resultsAbnormalKettering Health Washington TownshipProParma Community General HospitalPROCALCITONIN0.27 ng/mLHigh<0.05Martin [facility] HospitalComment on above:Result Comment: NOTE <0.50 ng/mL - Low risk of severe sepsis and/or septic shock. <2.00 ng/mL - Recommend retesting within 6-24 hours. >2.00 ng/mL - High risk of sepsis and/or septic shock.Performed By: #### 23708- 0, 2132-9, PINR, 78622-5, AHP, CMP, THYR, FEPR, CBCA, 98687-9, 16750-1, 1968-7, 2284-8, 2276-4 #### [facility] ([id number]) [address] [facility] [place], [place] [address]Yskniou & INRon 78-01-9374TLF Coag (PPP) [Relative time]1.3 {INR}HighKettering Health Washington TownshipInterpretation and review of laboratory results AbnormalKettering Health Washington TownshipPT Coag (PPP) [Time]15.5 [facility]iatric HospitalTHYROID PROFILEon 52-66-3572Wypf T4 [Mass/Vol]1.08 ng/dLNormal0.61-1.60 [facility] HospitaledicWayne HealthCare Main CampusComment on above:Performed By: #### 47752-6, 2132-9, PINR, 33503-7, AHP, CMP, THYR, FEPR, CBCA, 07169-3, 10975-7, 1967-, 2283-8, 6-4 #### [facility] ([id number]) [address] [place] [address], [address] [place], [place] [address]GPB1.40 uIU/mLNormal0.49-4.67ProMedica Des Arc HospitalComment on above:Performed By: #### 87368-0, 9, PINR, 86129-8, AHP, CMP, THYR, FEPR, CBCA, 37442-5, 31628-7, 1967-, 2283-, 6-4 #### [facility] ([id number]) [address] [place] [address], [address] [place], [place] [address]Gsxwtyl profile includes TSH FT4on 13-96-7350Rfjk T4 [Mass/Vol] 1.08 ng/dL0.61 - 1.60 ng/dLCaroMont Regional Medical Center Qn2.4 m[IU]/LProMedOhioHealth Shelby HospitalProParma Community General HospitalURINALYSISon 01-77-3075Xuqsgapps Ql (U) NegativeNormalNEGProCenterville HospitalComment on above:Performed By: #### 93391-3, 9, PINR, 06695-2, AHP, CMP, THYR, FEPR, CBCA, 98947-6, 47183-4, 1967-, 2283-8, 6-4 #### [facility] ([id number]) [address] [place] [address], [address] [place], [place] [address]BPLKM/HGBLargeAbnormalNEGProCenterville HospitalComment on above:Performed By: #### 27235-3, 9, PINR, 27797-5, AHP, CMP, THYR, FEPR, CBCA, 77306-7, 24258-7, 1967-11, 2283-8, 2276-4 #### [facility] ([id number]) [address] [place] [address], [address] [place], [place] [address]Vctob (U)YELLOWNormalYELLOWProMedica Joint Township District Memorial HospitalComment on above:Performed By: #### 96781-7, 2131-9, PINR, 50215-0, AHP, CMP, THYR, FEPR, CBCA, 27717-6, 55581-0, 1967-11, 8, 2275-4 #### [facility] ([id number]) [address], [address] [place], [place] [address]Nvquhym Ql (U)NegativeNormalNEGProMedica Des Arc HospitalComment on above:Performed By: #### 33124-1, 2131-9, PINR, 38951-3, AHP, CMP, THYR, FEPR, CBCA, 60514-9, 83840-1, 1967-11, 2283-12, 2275- #### [facility] ([id number]) [address], [address] [place], [place] [address]Wpwlowo Ql (U)TraceAbnormalNEGProCenterville HospitalComment on above:Performed By: #### 95383-6, 2131-9, PINR, 59588-8, AHP, CMP, THYR, FEPR, CBCA, 46732-7, 53829-7, 1967-11, 2283-12, 2275- #### [facility] ([id number]) [address] [place], [place] [address]Ndmwzhqsz esterase Test strip Ql (U)NegativeNormalNEGProUniversity Hospitals Beachwood Medical Centerca Des Arc HospitalComment on above:Performed By: #### 33076-6, 2131-9, PINR, 46782- 9, AHP, CMP, THYR, FEPR, CBCA, 51290-8, 76243-9, 1967-11, 2283-12, 2275-4 #### [facility] ([id number]) [address], [address] [place], [place] [address]CGCEINHNQHRIJUochbqwmDTAGPpxRgxtse [facility] Memorial HospitalComment on above:Performed By: #### 65252-1, 9, PINR, 32796-5, AHP, CMP, THYR, FEPR, CBCA, 23155-7, 46055-5, 1967-11, 2283-12, 2275-08 #### [facility] ([id number]) [address], [address] [place], [place] [address]Yvgzsqm Ql (U)NegativeNormalNEGProVan Wert County HospitalComment on above:Performed By: #### 04491-5, 9, PINR, 13934-3, AHP, CMP, THYR, FEPR, CBCA, 38730-9, 70258-4, 1967-11, 2283-12, 2275- #### [facility] ([id number]) [address], [address] [place], [place] [address]jK (U)6.5 [pH]Normal5.0-8.5PAvita Health SystemComment on above:Performed By: #### 44403-4, 2132-01, PINR, 00782-6, AHP, CMP, THYR, FEPR, CBCA, 47060-8, 96925-9, 1967-11, 2283-12, 2275-08 #### [facility] ([id number]) [address], [address] [place], [place] [address]Rfqwexn Ql (U)30 mg/dLAbnormalNEGProVan Wert County Hospital Comment on above:Performed By: #### 68976-1, 9, PINR, 00154-1, AHP, CMP, THYR, FEPR, CBCA, 97428-1, 14659-6, 1967-11, 2283-12, 2275-08 #### [facility] ([id number]) [address], [address] [place], [place] [address]L.B.SMNUA850 /hpfHigh0-5PAvita Health SystemComment on above:Performed By: #### 83530-3, 2132-9, PINR, 43451-9, AHP, CMP, THYR, FEPR, CBCA, 57056-0, 52432-8, 1967-11, 2283-12, 2275- #### [facility] ([id number]) [address], [address] [place], [place] [address]Zzsmptuh gravity (U) [Rel density]1.110Lnmqsh1.003-1.035 [facility] HospitalComschoolcraft memorial hospital on above:Performed By: #### 73393-4, 9, PINR, 93780-1, AHP, CMP, THYR, FEPR, CBCA, 28544-6, 91649-1, 1967-11, 2283-12, 2275-08 #### [facility] ([id number]) [address], [address] [place], [place] [address]NLSZXORCLYDRUKItsaypUAMRAWkjHildvx [facility] District Memorial HospitalComment on above:Performed By: #### 46084-1, 2132-01, PINR, 23122-9, AHP, CMP, THYR, FEPR, CBCA, 97896-6, 28701-4, 1967-11, 2283-12, 2275-08 #### [facility] ([id number]) [address], [address] [place], [place] [address]Vgohnnvylbsl (U) [Mass/Vol]mg/dLNormal<1.1PAvita Health SystemComschoolcraft memorial hospital on above:Performed By: #### 67473-8, 9, PINR, 02488-0, AHP, CMP, THYR, FEPR, CBCA, 42307-1, 83316-4, 1967-11, 2283-12, 2275-08 #### [facility] ([id number]) [address], [address] [place], [place] [address]D.B.CELLS2 /hpfNormal0-5PAvita Health SystemComschoolcraft memorial hospital on above:Performed By: #### 47513-0, 2132-9, PINR, 14328-9, AHP, CMP, THYR, FEPR, CBCA, 18893-5, 82359-9, 1967-11, 8, 2275- #### [facility] ([id number]) [address], [address] [place], [place] [address]JLDPM CULTUREon 07-52-0959Jcmfydkf identified Cx Nom (U)CULTURE RESULTS NO GROWTH AT <1000 CFU/mLNormalMartin Memorial HospitalComment on above: Performed By: #### 77515-0, 9, PINR, 52522-6, AHP, CMP, THYR, FEPR, CBCA, 45104-4, 92044-1, 1967-11, 2283-12, 2275-08 #### [facility] ([id number]) [address], [address] [place], [place] [address]Auqoyrblzzqc 88-86-2644Fdnixxkty Ql (U)NegativeNegative^Negative [facility] Hospitaledica Health SystemColor (U)YELLOWYELLOW^YELLOWSelect Medical [facility]Health [facility] Health System Glucose (U) [Mass/Vol]NegativeNegative^Negative mg/dLOhio Valley Hospital System Hemoglobin Auto test strip Ql (U)LargeAbnormalNegative^NegativeMetroHealth Cleveland Heights Medical Centerca Health SystemInterpretation and review of laboratory resultsAbnormalSelect Medical [facility] Hospital Health SystemKetones (U) [Mass/Vol]TraceAbnormalNegative^Negative mg/dLOhio Valley Hospital SystemLeukocyte esterase Auto test strip Ql (U)NegativeNegative^Negative [facility] SystemMucus Ql (Urine sed)PRESENTAbnormalNONE^NONESelect Medical [facility] Rehabilitation Hospital Health SystemNitrite Auto test strip Ql (U)NegativeNegative^NegativeWashington County Tuberculosis HospitalMedica Health SystempH (U)6.5 [pH]5.0 - 8.5PNorthshore Psychiatric Hospital Health SystemProtein (U) [Mass/Vol]30 mg/dLAbnormalNegative^NegativeOhio Valley Hospital SystemRBC Auto (Urine sed) [#/Area]158HighSelect Medical [facility]Health Rehabilitation Hospital Health SystemSpecific gravity Refractometry automated (U) [Rel density]1.0111.003 - 1.035Kettering Health Washington TownshipTurbidity Ql (U)CLEARCLEAR^CLEARKettering Health Washington TownshipUrobilinogen Qn (U)NINMissouri Baptist Hospital-SullivanWBC Auto (Urine sed) [#/Area]2PRoxbury Treatment CenterVITAMIN B12on 50-72-4537Gqzfvjtbq (Vitamin B12) [Mass/Vol]pg/mLHigh 180-914PAvita Health SystemComment on above:Performed By: #### 64892-5, 2131-9, PINR, 88620-5, AHP, CMP, THYR, FEPR, CBCA, 17553-8, 45485-4, 1967-, 2283-12, 2275-08 #### [facility] ([id number]) [address], [address] [place], [place] [address]Eroepmh B12on 89-90-0060Vpjucirzu (Vitamin B12) [Mass/Vol]pg/mL Nlhy683 - 914 pg/mLKettering Health Washington TownshipaPTT Coag (PPP) [Time]on 06-07-2024 Interpretation and review of laboratory resultsAbnormalKettering Health Washington Township ProMGuernsey Memorial HospitalaPTT Coag (Bld) [Time]52 zMvit57-82QwdGurctfMartin Memorial HospitalComment on above:Performed By: #### 79818-1, 9, PINR, 13976-7, AHP, CMP, THYR, FEPR, CBCA, 56385-9, 07729-0, 1967-11, 2283-12, 2275-08 #### [facility] ([id number]) [address] [place], [place] [address]lXFQ Coag (Bld) [Time]37 bUxuwea02-21XiaBizwbeMartin Memorial Hospital Comment on above:Performed By: #### 51838-3, 2131-9, PINR, 17547-0, AHP, CMP, THYR, FEPR, CBCA, 51938-5, 56012-1, 1967-11, 2283-12, 2275- #### [facility] ([id number]) [address], [address] [place], [place] [address]CQ EXT VENOUS REFLUX MAUDE LMTDon 78-04-[address]12[address] [address] Vein Report Signed Patient: JOHNATHAN RODNEY MR#: [id number] : 1955 Acct:[id number] Age/Sex: 67 / M ADM Date: 07/13/23 Loc: VC Attending Dr: Shaikh Larry Thompson Ordering Physician: Shaikh Jay Juarez Date of Service: 07/13/23 Procedure(s): VC EXT Venous Reflux MAUDE LMTD Accession Number(s): [id number] cc: Shaikh Jay Juarez Patient Name: JOHNATHAN RODNEY MR#: [id number] : 1955 Exam Date: 07/13/2023 Ordering Doctor: [...] visualized throughout SSV. Compressibility: Normal Flow: Normal [employer] W[employer] Tester: No perforators visualized. Tech Note: Thrombus visualized in SSV. No patent varicose veins visualized. CONCLUSION: 1. No appreciable abnormal vein dilation or reflux within the lower extremities. Dictated by: Brett Grier M.D. on 07/13/2023 at 14:12 Approved by: Brett Grier M.D. on 07/13/2023 at 14:28 Dictated By: Brett Grier M.D. Signed By: 07/13/23 1430 DD/ 1429 TD/TT: Dairy Farmworker:TBHRadiology, Radiologist, MD - 07/13/2023 [place] [address] Vein Report Signed Patient: JOHNATHAN RODNEY MR#: [id number] : 1955 Acct:[id number] Age/Sex: 67 / M ADM Date: 07/13/23 Loc: VC Attending Dr: Shaikh Larry Thompson Ordering Physician: Shaikh Jay Juarez Date of Service: 07/13/23 Procedure(s): VC EXT Venous Reflux MAUDE LMTD Accession Number(s): [id number] cc: Shaikh Jay Juarez Patient Name: JOHNATHAN RODNEY MR#: [id number] : 1955 Exam Date: 07/13/2023 Ordering Doctor: [...] visualized throughout SSV. Compressibility: Normal Flow: Normal [employer] Tester: No perforators visualized. Tech Note: Thrombus visualized in SSV. No patent varicose veins visualized. CONCLUSION: 1. No appreciable abnormal vein dilation or reflux within the lower extremities. Dictated by: Brett Grier M.D. on 07/13/2023 at 14:12 Approved by: Brett Grier M.D. on 07/13/2023 at 14:28 Dictated By: Brett Grier M.D. Signed By: 07/13/23 1430 DD/ 1429 TD/TT: Dairy Farmworker: [facility] HospitalRadiology Study observation (narrative)[facility] HospitalVC EXT VENOUS REFLUX MAUDE LMTDOrdered By: Radiologist Radiology on 61-60-1897BGNQSoutheast Missouri Hospital Work Phone: [facility] [phone] [address] Vein Report Signed Patient: JOHNATHAN RODNEY MR#: [id number] : 1955 Acct:[id number] Age/Sex: 67 / M ADM Date: 07/13/23 Loc: Attending Dr: Shaikh Larry Thompson Ordering Physician: Shaikh Jay Juarez Date of Service: 07/13/23 Procedure(s): [facility] Accession Number(s): [id number] cc: Shaikh Jay Juarez Patient Name: JHONATHAN RODNEY MR#: [id number] : 1955 Exam Date: 07/13/2023 Ordering Doctor: SHAIKH Ember JUAREZ . RADIOLOGY REPORT PROCEDURE: [facility] - OFFICE VISIT [...] Signed By: 07/13/23 1437 DD/ 1436 TD/TT: Dairy Farmworker:TBHRadiology, Radiologist, - 07/13/2023 [place] [address] Vein Report Signed Patient: JOHNATHAN RODNEY MR#: [id number] : 1955 Acct:[id number] Age/Sex: 67 / M ADM Date: 07/13/23 Loc: VC Attending Dr: Shaikh Larry Thompson Ordering Physician: Shaikh Jay Juarez Date of Service: 07/13/23 Procedure(s): VC Facility EST Comprehensive Accession Number(s): [id number] cc: Shaikh Jay Juarez Patient Name: JOHNATHAN RODNEY MR#: [id number] : 1955 Exam Date: 07/13/2023 Ordering Doctor: [...] Signed By: 07/13/23 1437 DD/ 35 TD/TT: Dairy Farmworker: [facility] HospitalRadiology Study observation (narrative)[facility] FACILITY EST COMPREHENSIVEOrdered By: Radiologist Radiology on 27-95-1617DHHUSoutheast Missouri Hospital Work Phone: aLL CBC WITH AUTO DIFFon 03-71-4591FQTHBWKRP ABSOLUTE AUTO0.1NOMS HealthcareBasophils/100 WBC (Bld)1.4 %0.2 - 2.0 %[facility] Eosinophils/100 WBC (Bld)1.6 %0.9 - 7.0 %[facility] HospitalErythrocyte distribution width (RBC) [Ratio]19.9 %High11.0 - 15.0 %[facility] HospitalHematocrit (Bld) [Volume fraction]39.1 %Low42.0 - 54.0 %[facility] HospitalHemoglobin (Bld) [Mass/Vol]11.6 g/dLLow14.0 - 18.0 g/dLSoutheast Missouri HospitalIMMATURE GRANULOCYTES ABS AUTO0.02NOSaint Joseph Health CenterImmature granulocytes/100 WBC (Bld)0.2 %0.0 - 0.5 %[facility] HospitalInterpretation and review of laboratory resultsAbnormalS[facility] Hospital LYMPHOCYTES ABSOLUTE AUTO1.5NOSaint Joseph Health CenterLymphocytes/100 WBC (Bld)16.6 %Low 20.5 - 60.0 %[facility]izens Memorial HealthcareH (RBC) [Entitic mass]23.7 pgLow25.9 - 34.0 pgNOBarnes-Jewish HospitalHC (RBC) [Mass/Vol]29.7 g/dLLow29.9 - 35.2 g/dLCitizens Memorial HealthcareV (RBC) [Entitic vol]79.8 fLLow80.0 - 94.0 fLSoutheast Missouri HospitalMONOCYTES ABSOLUTE AUTO0.6NOMS HealthcareMonocytes/100 WBC (Bld)6.6 %1.7 - 12.0 %[facility] Healthcare NEUTROPHILS ABSOLUTE AUTO6.5NOMS HealthcareNeutrophils/100 WBC (Bld)73.6 %43.0 - 75.0 %[facility] HealthcarePlatelet mean volume (Bld) [Entitic vol]9.2 fLLow9.5 - 13.5 fLNOSaint Joseph Health CenterTBH EO #0.1NOMS HealthcareTBH OTD473EHVW [facility] Gal[facility] HospitalTBH RBC4.90 NOMS [facility] HospitalTB WBC8.8NOTN HealthcareCLINISYNCNOMS HealthcareCULTURE URINEon 11-55-2357RFCMYWW URINEIsolate 1 Escherichia coli >100,000 cfu/ml of [...] <=16 S F Trimethoprim/Sulfamethoxazole <=20 S FNormalThe [facility]ult[facility] County Health CenterComment on above:Performed By: #### URCX #### [facility] [address] [address] Rahul KarenCARDIAC LEONOR ADMITon 84-92-9371JO [Catalytic activity/Vol]116 U/L Barggx72-712Mzq [facility] CenterComment on above:Performed By: #### LIVER, BMP, CMADM, LIPA #### [facility] [address] [place], [place] [address] Rahul KarenCK.MB [Mass/Vol]1.36 ng/mLNormal<=2.37The [facility] Health CenterComment on above:Performed By: #### LIVER, BMP, CMADM, LIPA #### [facility] [address] [place], [place] [address] Rahul KarenINR Coag (Bld) [Relative time]SEE BELOWNormalThFairfield Medical Center Comment on above:Result Comment: <0.034 ng/ml NEGATIVE 0.034-0.119 INDETERMINATE 0.120 AMI CUT OFFPerformed By: #### LIVER, BMP, CMADM, LIPA #### [facility] [address] [place] [address] Rahul IebntBPZ449.0 ng/mLNormal<=121.0The [facility] CenterComment on above: Performed By: #### LIVER, BMP, CMADM, LIPA #### [facility] [address] [place] [address] Rahul KarenTROP<0.017Normal<=0.034The [facility] Health CenterComment on above: Performed By: #### LIVER, BMP, CMADM, LIPA #### [facility] [address] [place] [address] Rahul KarenCBC AUTO DIFFon 24-01-8282Morlkelle (Bld) [#/Vol]0.1 103/ulNormal 0.0-0.1The [facility] Health CenterComment on above:Performed By: #### CBC #### [facility] [address] [place] [address] Rahul KarenBasophils/100 WBC (Bld)0.7 %Normal0.2-2.0The [facility] Comment on above:Performed By: #### CBC #### [facility] [address] [place] [address] Rahul KarenEosinophils (Bld) [#/Vol]0.0 103/ulNormal0.0-0.7The [facility] Health CenterComment on above:Performed By: #### CBC #### [facility] [address] [place] [address] Rahul KarenEosinophils/100 WBC (Bld)0.2 %Critically low0.9-7.0The [facility] Health CenterComment on above:Performed By: #### CBC #### [facility] [address] [place] [address] Rahul KarenErythrocyte distribution width (RBC) [Ratio]14.8 %Paehiu67.0-15.0The [facility] Health CenterComment on above:Performed By: #### CBC #### [facility] [address] [place] [address] Rahul KarenHematocrit (Bld) [Volume fraction]52.1 %Fnfsmf91.0-54.0The [facility] CenterComment on above:Performed By: #### CBC #### [facility] [address] [place] [address] Rauhl KarenHemoglobin (Bld) [Mass/Vol]17.3 g/eUPznpkt66.0-18.0The [facility] CenterComment on above:Performed By: #### CBC #### [facility] [address] [place] [address] Rahul KarenIG #0.10 10e3/ulCritically high0.00-0.03The [facility] CenterComment on above:Performed By: #### CBC #### [facility] [address] [place] [address] Rahul KarenIG %0.6 %Critically high0.0-0.5The [facility] CenterComment on above:Performed By: #### CBC #### [facility] [address] [place] [address] Rahul KarenLymphocytes (Bld) [#/Vol]1.9 103/ulNormal1.2-3.8The [facility] CenterComment on above:Performed By: #### CBC #### [facility] [address] [place] [address] Rahul KarenLymphocytes/100 WBC (Bld)11.5 %Critically low20.5-60.0The [facility] CenterComment on above:Performed By: #### CBC #### [facility] [address] [place] [address] Rahul KarenMANUAL DIFF REQNONormalThe [facility] CenterComment on above: Performed By: #### CBC #### [facility] [address] [place] [address] Rahul KarenMCH (RBC) [Entitic mass]30.0 ryUfytco43.9-34.0The [facility] Comment on above:Performed By: #### CBC #### [facility] [address] [place] [address] Rahul KarenMCHC (RBC) [Mass/Vol]33.2 g/sGJopegu91.9-35.2The [facility] Comment on above:Performed By: #### CBC #### [facility] [address] [place] [address] Rahul KarenMCV (RBC) [Entitic vol]90.5 gCYznced95.0-94.0The [facility] Comment on above:Performed By: #### CBC #### [facility] [address] [place] [address] Rahul KarenMonocytes (Bld) [#/Vol]1.2 103/ulCritically high0.3-0.8The [facility] CenterComment on above:Performed By: #### CBC #### [facility] [address] [place] [address] Rahul KarenMonocytes/100 WBC (Bld)7.0 %Normal1.7-12.0The [facility] Comment on above:Performed By: #### CBC #### [facility] [address] [place] [address] Rahul KarenNeutrophils (Bld) [#/Vol]13.3 103/ulCritically high1.4-6.5The [facility] CenterComment on above:Performed By: #### CBC #### [facility] [address] [place] [address] Rahul KarenNeutrophils/100 WBC (Bld)80.0 %Critically high43.0-75.0The [facility] CenterComment on above:Performed By: #### CBC #### [facility] [address] [place] [address] Rahul KarenPlatelet mean volume (Bld) [Entitic vol]9.9 fLNormal9.5-13.5The [facility] CenterComment on above:Performed By: #### CBC #### [facility] [address] [place] [address] Rahul KarenPlatelets (Bld) [#/Vol]366 103/eiRtvhei408-775Msi [facility] Comment on above:Performed By: #### CBC #### [facility] [address] [place] [address] Rahul KarenRBC (Bld) [#/Vol]5.76 106/ulNormal4.70-6.10The [facility] Comment on above:Performed By: #### CBC #### [facility] [address] [place] [address] Rahul KarenWBC (Bld) [#/Vol]16.6 103/ulCritically high4.0-11.0The [facility] CenterComment on above:Performed By: #### CBC #### [facility] [address] [place] [address] Rahul KarenER URINE PROFILEon 27-98-8627Gozhrsayo [Mass/Vol]MODERATENormal NEGATIVEThe [facility] CenterComment on above:Performed By: #### JANNY SINGLETON #### [facility] [address] [place] [address] Rahul KarenBLOODLARGENormalNEGATIVECoshocton Regional Medical CenterComment on above: Performed By: #### JANNY SINGLETON #### [facility] [address] [place] [address] Rahul KarenClarity (U)CLEARNormalThe [facility] CenterComment on above: Performed By: #### JANNY SINGLETON #### [facility] [address] [place] [address] Rahul KarenColor (U)DK. ORANGENormalYELLOWThe [facility] CenterComment on above:Performed By: #### JANNY SINGLETON #### [facility] [address] [place] [address] Rahul KarenERUAHDA micrscopic examination will be performed if indicated.Normal The [facility] CenterComment on above:Performed By: #### JANNY SINGLETON #### [facility] [address] [place] [address] Rahul KarenGlucose [Mass/Vol]NegativeNormalNEGATIVEBlanchard Valley Health System HospitalComment on above:Performed By: #### JANNY SINGLETON #### [facility] [address] [place] [address] Rahul KarenKetones Ql (U)TRACENormalNEGATIVEBlanchard Valley Health System HospitalComment on above:Performed By: #### JANNY SINGLETON #### [facility] [address] [place] [address] Rahul KarenNitrite Ql (U)PositiveNormalNEGATIVEBlanchard Valley Health System HospitalComment on above:Performed By: #### JANNY SINGLETON #### [facility] [address] [place] [address] Rahul KarenpH (Bld)6.8Lpmgcm6-3FpqCoshocton Regional Medical CenterComment on above:Performed By: #### JANNY SINGLETON #### [facility] [address] [place] [address] Rahul KarenProtein (U) [Mass/Vol]mg/dLNormOhioHealth Hardin Memorial Hospital HospitalComment on above:Performed By: #### JANNY SINGLETON #### [facility] [address] [place] [address] Rahul KarenSPEC GRAVITY1.393Dthjsb9.005-<=1.025Coshocton Regional Medical CenterComment on above:Performed By: #### JANNY SINGLETON #### [facility] [address] [place] [address] Rahul KarenUR MICRO INDINDICATEDNoPomerene HospitalComment on above: Performed By: #### JANNY SINGLETON #### [facility] [address] [place] [address] Rahul KarenUrobilinogen Qn (U)2.0 EU/dlNoPomerene HospitalComment on above:Performed By: #### JANNY SINGLETON #### [facility] [address] [place] [address] Rahul KarenWBC (Bld) [#/Vol]SMALLNormalNEGATIVEThe [facility] CenterComment on above:Performed By: #### ERURJAMESRO #### [facility] [address] [place] [address] Rahul KarenLIPASEon 57-23-3891Ybjvgy [Catalytic activity/Vol]160.0 U/LNormal 23.0-300.0The [facility] CenterComment on above:Performed By: #### LIVER, BMP, CMADM, LIPA #### [facility] [address] [place] [address] Rahul KarenLIVER PROFILEon 27-56-1870Eugxley [Mass/Vol]3.8 g/dLNormal3.5-5.0The [facility] CenterComment on above:Performed By: #### LIVER, BMP, CMADM, LIPA #### [facility] [address] [place] [address] Rahul KarenAlbumin/Globulin [Mass ratio]0.7 {ratio}NormalCoshocton Regional Medical Center Comment on above:Performed By: #### LIVER, BMP, CMADM, LIPA #### [facility] [address] [place] [address] Rahul KarenALP [Catalytic activity/Vol]84 U/KXlrwch28-069Wff [facility] Comment on above:Performed By: #### LIVER, BMP, CMADM, LIPA #### [facility] [address] [place] [address] Rahul KarenALT [Catalytic activity/Vol]51 U/BRtwdkb32-91Thv [facility] Comment on above:Performed By: #### LIVER, BMP, CMADM, LIPA #### [facility] [address] [place] [address] Rahul KarenAST [Catalytic activity/Vol]22 U/CBpximg46-26Veq [facility] Comment on above:Performed By: #### LIVER, BMP, CMADM, LIPA #### [facility] [address] [place] [address] Rahul KarenBILI, CONJUGATED0.3 mg/dLNormal0.0-0.3The [facility] CenterComment on above:Performed By: #### LIVER, BMP, CMADM, LIPA #### [facility] [address] [address] Rahul KarenBilirubin Ql (U)1.2 mg/dLNormal0.2-1.3The [facility] CenterComment on above:Performed By: #### LIVER, BMP, CMADM, LIPA #### [facility] [address] [address] Rahul KarenGlobulin (S) [Mass/Vol]5.3 g/dLNormalThe [facility] CenterComment on above:Performed By: #### LIVER, BMP, CMADM, LIPA #### [facility] [address] [place] [address] Rahul KarenProtein [Mass/Vol]9.1 g/dLCritically high6.1-8.2The [facility] CenterComment on above:Performed By: #### LIVER, BMP, CMADM, LIPA #### [facility] [address] [place] [address] Rahul KarenPROF CHEM 8 (BAS METB)on 03-50-4813Xxvgd gap [Moles/Vol]13.0 mmol/L NormalThe [facility] North Hospitalment on above:Performed By: #### LIVER, BMP, CMADM, LIPA #### [facility] [address] [place] [address] Rahul KarenCalcium [Mass/Vol]8.5 mg/dLNormal8.4-10.2The [facility] Comment on above:Performed By: #### LIVER, BMP, CMADM, LIPA #### [facility] [address] [place] [address] Rahul KarenChloride [Moles/Vol]96 mmol/LCritically jfv78-906Pwr [facility] Hospitalment on above:Performed By: #### LIVER, BMP, CMADM, LIPA #### [facility] [address] [place] [address] Rahul KarenCO2 [Moles/Vol]31.0 mmol/LCritically high22.0-30.0The [facility] Hospitalment on above:Performed By: #### LIVER, BMP, CMADM, LIPA #### [facility] [address] [place] [address] Rahul KarenCreatinine [Mass/Vol]1.53 mg/dLCritically high0.66-1.25The [facility] CenterComment on above:Performed By: #### LIVER, BMP, CMADM, LIPA #### [facility] [address] [place] [address] Rahul KarenEGFR-AF PAXPALHN10 mL/min/1.30z9Jhdiysowcf low>=60The [facility] CenterComment on above:Performed By: #### LIVER, BMP, CMADM, LIPA #### [facility] [address] [place] [address] Rahul KarenEGFR-NON AF FIHOZZSO13 mL/min/1.94h2Qlingsvxfr low>=60The [facility] CenterComment on above:Performed By: #### LIVER, BMP, CMADM, LIPA #### [facility] [address] [place] [address] Rahul KarenGlucose [Mass/Vol]135 mg/dLCritically hsbj28-948Gmh [facility] CenterComment on above:Performed By: #### LIVER, BMP, CMADM, LIPA #### [facility] [address] [place] [address] Rahul KarenPotassium [Moles/Vol]3.0 mmol/LCritically low3.4-5.0The [facility] Hospitalment on above:Performed By: #### LIVER, BMP, CMADM, LIPA #### [facility] [address] [place] [address] Rahul KarenSodium [Moles/Vol]137 mmol/GPnazeq686-886Kbf [facility] Comment on above:Performed By: #### LIVER, BMP, CMADM, LIPA #### [facility] [address] [place] [address] Rahul KarenUrea nitrogen [Mass/Vol]14.0 mg/dLNormal9.0-20.0The [facility] HospitalComment on above:Performed By: #### LIVER, BMP, CMADM, LIPA #### [facility] [address] [address] Rahul KarenUrea nitrogen/Creatinine [Mass ratio]9.2 mg/mgNoOhioHealth Pickerington [facility] on above:Performed By: #### LIVER, BMP, CMADM, LIPA #### [facility] [address] [address] Rahul KarenPROTIMEon 69-06-4310DZP Coag (PPP) [Relative time]1.14 {INR}Normal [facility] on above:Performed By: #### PT, PTT #### [facility] Laboratory [address] [place] [address] Rahul KarenPT Coag (PPP) [Time]PLEASE NOTE: NORMAL RANGE CHANGE 01-23-2014 DUE TO REAGENT LOT CHANGENoOhioHealth Pickerington [facility] Hospital on above:Performed By: #### PT, PTT #### [facility] [address] [place] [address] Rahul KarenPT Coag (PPP) [Time]11.8 sCritically high9.0-11.6[facility] on above:Performed By: #### PT, PTT #### [facility] [address] [place] [address] Rahul KarenPT Coag (PPP) [Time]SEE BELOWNoOhioHealth Pickerington Methodist Hospital on above:Result Comment: DESIRED INR: 2.0 - 3.0 CONDITIONS NOT LISTED BELOW 2.5 - 3.5 FOR PROSTHETIC HEART VALVE REPLACEMENT 2.5 - 3.5 RECURRENT THROMBOSIS Performed By: #### PT, PTT #### [facility] [address] [place] [address] Rahul KarenPTTon 34-37-1749fJRO Coag (Bld) [Time]35.0 nAjbfdc33.3-36.2[facility] on above:Performed By: #### PT, PTT #### [facility] [address] [place] [address] Rahul KarenaPTT Coag (Bld) [Time]PLEASE NOTE: NORMAL RANGE CHANGE 04-01-2015 DUE TO REAGENT LOT CHANGEWilson Street HospitalComment on above:Performed By: #### PT, PTT #### [facility] [address] [place] [address] Rahul KarenURINE MICROSCOPIC ONLYon 43-18-6343Pnpvozrb LM.HPF (Urine sed) [#/Area]MODERATENormalNONE SEENCoshocton Regional Medical CenterComment on above:Performed By: #### JANNY SINGLETON #### [facility] Laboratory [address] [place] [address] Rahul KarenCASTNONE SEENFayettevilleNONE St[address] Francis HospitalComschoolcraft memorial hospital on above: Performed By: #### JANNY SINGLETON #### [facility] [address] [place] [address] Rahul KarenCrystals LM Nom (Urine sed)NONE SEENrmalNONE SEENCoshocton Regional Medical CenterComment on above:Performed By: #### JAMES SINGLETONRO #### [facility] Laboratory [address] [place] [address] [address]CULTUREIND[address]Wilson [address] HospitalComment on above: Performed By: #### JANYN SINGLETON #### [facility] Laboratory [address] [place] [address] Rahul KarenEpithelial cells LM.HPF (Urine sed) [#/Area]RAREWilson Street HospitalComschoolcraft memorial hospital on above:Performed By: #### JAMES SINGLETONRO #### [facility] [address] [place] [address] Rahul KarenMUCOUSNONE SEENNormalNONE St. Francis HospitalComschoolcraft memorial hospital on above: Performed By: #### JAMES SINGLETONRO #### [facility] Laboratory [address] [place] [address] Rahul KarenRBC (U) [#/Vol]77-70Aabtjh7-0CntCoshocton Regional Medical CenterComment on above: Performed By: #### JAMES SINGLETONRO #### [facility] [address] [place] [address] Rahul NolanWBC (Bld) [#/Vol]>100NormalNONE SEENThe [facility] County Health CenterComment on above:Performed By: #### JANNY SINGLETON #### [facility] [address] [id number] Rahul Nolan Vital Signs Date TimeVital SignValuePerforming RnflejgkcDrxnfnkx72-93-4329 09:15-0500Blood Pressure LocationJENNIFER CHARLINE [facility]02-18-2025 09:15-0500Body qilbaobqwce59.6 [degF]KIKIGERARDO OLIVIER [facility]02-18-2025 09:15-0500Diastolic blood nodrpthm94 mm[Hg]KIKI CHARLINE [facility]02-18-2025 09:15-0500Heart rate70 /minJENNIFER CHARLINE [facility]02-18-2025 09:15-0500Respiratory rate16 /minJENNIFER CHARLINE [facility]02-18-2025 09:15-0500Systolic blood uivjtqjn865 mm[Hg]KIKI OLIVIER [facility]02-05-2025 11:46-0500Body tunmrtfdabf96.49 [degF]Tabatha León MD Work Phone: [facility]02-05-2025 11:46-0500Diastolic blood ydduytvb94 mm[Hg]Tabatha León MD Work Phone: [facility]02-05-2025 11:46-0500Heart rate 82 /minFrcha León MD Work Phone: [place]02-05-2025 11:46-0500 Respiratory rate16 /minTabatha León MD Work Phone: [facility]02-05-2025 11:46-4664LrF9% (BldA) [Mass fraction]100 %Tabatha León MD Work Phone: [facility]02-05-2025 11:46-0500Systolic blood sedxlzyz793 mm[Hg]Tabatha León MD Work Phone: [facility]02-03-2025 04:40-0500Body mass index (BMI) [Ratio]18.81 kg/c1FgivmrhTabatha León MD Work Phone: [facility]02-03-2025 04:40-0500Body xdakdl59.9 kgTabatha León MD Work Phone: [facility]01-31-2025 09:25-0500Body .9 cmTabatha León MD Work Phone: [facility] CenterTrion Worlds Encounters Encounter DateEncounter TypeCare ProviderFacilityStart: 81-96-2047gsvpwxxsyv Shanthi X OrzechFacility:EU [place]kyStart: 03-05-2025 End: 52-60-8471tstauculxqXY DONAL URIARTE-AMANKRAFacility:EU [place]kyStart: 03-05-2025 End: 61-34-7623Ixekkhd encounter procedureKPETRA URIARTE-DAYANARARA [facility] Start: 02-21-2025 End: 52-69-3031tqqyyhctipTK DONAL OAKLEYAH-AMANKRAFacility:EU [place]kyStart: 02-21-2025 End: 46-39-5532Ztvumge encounter procedureKPETRA URIARTE-AMANK [facility] Start: 11-20-2024 End: 81-78-5474jwrjhoovyxUkvrhie M [facility] Work Phone: Start: 11-20-2024 End: 01-45-5196Xtxsjjdi ReferredRamon Wilson MD-LAB [facility] Start: 10-21-2024 End: 27-80-0273ulnsophdnzINEZYLSE E PERRYFacility:EU [place]vueStart: 10-21-2024 End: 42-03-8893Xrbikly encounter procedureJENNIFER E CHARLINE [facility] start: 64-67-0267ifakoyxvzbAR DONAL OAKLEYAH-AMANKRA Facility:EU [place]Start: 09-06-2024 End: 26-82-6695glcenopaunAR DONAL REARDONANSAH-AMANKRAFacility:EU [place]Start: 08-30-2024 End: 25-54-0279uvzpyrqdzsOAXUHANY E PERRYFacility:EU [place] HavenevueStart: 07-19-2024 End: 64-10-1621fxppqfsizgJR DONAL CARONANSAH-AMANKRAFacility:EU [place]kyStart: 06-25-2024 End: 10-03-8792ldapnwbhafNHRWZPYW E PERRYFacility:EU [place] HavenevueStart: 06-25-2024 End: 05-13-7029Iqolqlg encounter procedureJENNIFER E CHARLINE [facility] start: 06-08-2024 End: 86-74-4129Rhbyirdxi encounterHeather Dima Shelton APRN-GOLF COURSE KEEPER Work Phone: [facility] HealthcareStart: 06-07-2024 End: 85-21-7991Qnpoqxcjhb and management of inpatientMatthew Philippe MD Work Phone: [facility] AcuteStart: 19-54-7303zqhgexcvryZLUPFWHXQBowdle [facility] Start: 06-06-2024 End: 64-97-4532Swxspqxim department patient visitBrookings Health System Ambulatory PPGStart: 12-05-2023 End: 49-34-4705qujmyniwtsMYJGTT FAWWAJULIANot AvailableStart: 07-13-2023 End: 46-79-3186Rhadmoucm Result EncounterSmira Juarez MD Work Phone: noms External Department UnsolicitedStart: 07-13-2023 End: 41-96-1129Zbeesjkig Result EncounterSmira Juarez MD Work Phone: noms External Department UnsolicitedStart: 06-28-2023 End: 52-26-2667vacbapumolKWAHEO FAWWAJULIANot AvailableStart: 57-88-8340Vafnvepyv Result EncounterSmira Juarez MD Work Phone: noms External Department UnsolicitedStart: 06-22-2023 Clinisync Result EncounterSmira Juarez MD Work Phone: noms External Department UnsolicitedStart: 05-24-2023 End: 91-03-4564kujubayzcyQDDNJN FAWWADNot AvailableStart: 12-14-2018 End: 68-61-8104Xeixbjr encounter procedureDOCTOR MISCFacility:H1 Procedures DateProcedureProcedure DetailPerforming ClinicianStart: 70-39-5118Wwrfh count complete auto&auto difrntl wbcAnia Bell DO Work Phone: Start: 50-39-9054Gahtzylpu serum plasma/whole blood Tabatha León MD Work Phone: Start: 91-96-2825IDFLANJQFFC CARE CONSULTAureliano Garduno DO Work Phone: Start: 13-75-7357Rnjfaoefajqmw metabolic panel Roseline Reyez MD Work Phone: Start: 00-88-4231Qvood metabolic panel calcium total Demetriasarmad Keller DO Work Phone: Start: 74-15-4536Azeeufa function panelAnia Krishna DO Work Phone: [phone]: 35-53-5493Nvb brain brain stem w/o w/contrast materialRochelle Llamas MD Work Phone: Start: 41-47-5638Ianewlnnj serum plasma/whole blood Roseline Reyez MD Work Phone: Start: 51-77-6203Ihx routine ecg w/least 12 lds trcg only w/o i&rTeradha Reyez MD Work Phone: Start: 91-08-6670Wykpz metabolic panel calcium total Roseline Reyez MD Work Phone: [phone]: 88-67-4960Loaaimmxe serum plasma/whole blood Roseline Reyez MD Work Phone: Start: 22-25-9717HTROJMIBPYK CARE CONSULTAureliano Garduno DO Work Phone: Start: 02-80-7256Mn head/brain w/o contrast material Will Renee DIRECTOR [employer]RSE KEEPER Work Phone: Start: 83-92-94640f rendering w/interp & postprocess supervisionTeradha Reyez MD Work Phone: [phone]: 85-04-8655Agtblpqkcsdjoc time partial plasma/whole bloodRoseline Reyez MD Work Phone: Start: 57-79-1050Cqczi metabolic panel calcium total Roseline Reyez MD Work Phone: [phone]: 81-15-6450Hpowz panelTeradha Reyez MD Work Phone: Start: 56-87-10025c rendering w/interp & postprocess supervisionVito Kurtz PA-C Work Phone: [phone]: 20-44-3788Adlqu of magnesiumTeradha Reyez MD Work Phone: [phone]: 19-68-5575Mxzl bld gluc mntr dev cleared fda spec home Margarita Philippe MD Work Phone: [phone]: 91-74-1869Qqp abdomen w/o contrast materialAnia Bell DO Work Phone: Start: 86-53-7488Sl abdomen & pelvis w/o contrast materialMisty Dima GREENWOOD Work Phone: [phone]: 23-97-4215RLQAnqaa Patel MD Work Phone: Start: 00-26-8787Bqkfaqw bacterial quanttative colony count urineEvleisa Garduno DO Work Phone: [phone]: 41-05-9281Bzzv tst prsmv instrmnt chem analyzers pr dateAureliano Garduno DO Work Phone: [phone]: 22-44-6328Stxjz dip stick/tablet rgnt auto w/o microscopyEvleisa Garduno DO Work Phone: [phone]: 32-48-9007Tbehj hepatitis panelAureliano Garduno DO Work Phone: [phone]: 66-80-5334Vtfhwippysoci metabolic panelAureliano Garduno DO Work Phone: Start: 62-33-5562HKRJMHZRWXL CARE CONSULTEvleisa Garduno DO Work Phone: [phone]: 97-48-7523OK FACILITY EST Evelin Juarez MD Work Phone: Start: 38-11-1777BL EXT VENOUS REFLUX MAUDE LMTFer Juarez MD Work Phone: Start: 45-24-9213MCT CBC WITH AUTO DIFFShaikh Larry MCCALL Work Phone: None (qualifier value)KIKI OLIVIER Plan of Treatment DateCare ActivityDetailAuthorStart: 19-25-8932Dfqpl BMI ScreeningAdult BMI ScreeningProPike Community Hospitaltart: 90-86-2216Wuakj cultureWadsworth-Rittman Hospitaltart: 21-48-5883Ozpvhnyi identified in Urine by CultureUrine [facility] Medical Centertart: 11-10-3946Yusqywjqn vaccination Influenza VaccineFormerly Hoots Memorial Hospitaltart: 06-28-2023 End: 97-65-1902Vcqhlnn encounter lzdsegpok87/21/2024 1:30 PM EST Office Visit [facility] [address] [place] [address] Shaikh Juarez MD [address] [place] [phone] [facility] IMStart: 46-57-6619Vfhprhxun vaccinationInfluenza Vaccine (#1)[facility] HealthcareStart: 64-32-1301Wxzkpojhb aortic aneurysm screening Abdominal Aortic Aneurysm (AAA) ScreenProPike Community Hospitaltart: 08-01-2019 Fall Risk ScreeningFall Risk ScreeningFormerly [facility]oots Memorial Hospitaltart: 2004 Administration of varicella zoster vaccineZoster (Shingles) Vaccine (1 of 2) [facility] SystemStart: 73-22-0306NYoM,Tdap and Td Vaccines (1 - Tdap) DTaP,Tdap and Td Vaccines (1 - Tdap)[facility] SystemStart: 1966 Depression ScreeningDepression ScreeningOhio Valley Hospital SystemStart: 1966 Tobacco ScreeningTobacco ScreeningFormerly Hoots Memorial Hospitaltart: 1960 Pneumococcal Vaccine: 65+ Years (1 - PCV)Pneumococcal Vaccine: 65+ Years (1 - PCV)[facility] HealthcareStart: 40-34-8914Tcqvzdhul for malignant neoplasm of colon [facility] End: 18-85-5094Qhafg count hemoglobinHemoglobin Lab Routine Every Other Day for 3 Days starting 06/12/2024 until 06/14/2024, 1 completedBioStable Work Phone: Comment on above:Every Other Day for 3 Days starting 06/12/2024 until 06/14/2024, 1 completedCBC W Auto Differential panel - BloodCBC auto differential Lab Routine Lab max of 3 days, Daily, for lab use only until discontinued starting 06/10/2024, 3 completedBioStable Work Phone: Comment on above:Lab max of 3 days, Daily, for lab use only until discontinued starting 06/10/2024, 3 completedOxygen Therapy - Maintain SpO2: 90%; *MANAGER PRIMARY Guidelines for O2: Yes; Document: \[email or web address]\epic\EPIC_Reference\Orders\Respiratory Care Guidelines\CPG Oxygen 2022.pdfOxygen Therapy - Maintain SpO2: 90%; *MANAGER PRIMARY Guidelines for O2: Yes; Document: \[email or web address]\epic\EPIC_Reference\Orders\Respiratory Care Guidelines\CPG Oxygen 2022.pdf Respiratory Care Routine AsNeeded until discontinued starting 06/07/2024[facility] HospitalSense PlatformComment on above:As Needed until discontinued starting 06/07/2024 End: 64-80-5559Vhuybmnmi [#/volume] in BloodPlatelet count Lab Routine Every Third Day for 3 Days starting 06/13/2024 until 06/13/2024[facility] Comment on above:Every Third Day for 3 Days starting 06/13/2024 until 06/13/2024 End: 22-70-1434Emjhj oximetry, spot On current oxygen flowPulse oximetry, spot On current oxygen flow Respiratory Care Routine Once for 1 Occurrences starting 06/07/2024 until 06/07/2024[employer] Work Phone: Comment on above:Once for 1 Occurrences starting 06/07/2024 until 06/07/2024Respiratory Care consult *MANAGER PRIMARY Guidelines for Resp Care Consult: Yes; Document: \[email or web address]\ epic\EPIC_Reference\Orders\Respiratory Care Guidelines\CPG Consult 2020.pdf Respiratory Care consult *MANAGER PRIMARY Guidelines for Resp Care Consult: Yes; Document: \[email or web address]\epic\EPIC_Reference\Orders\Respiratory Care Guidelines\CPG Consult 2020.pdf Respiratory Care Routine Every 12 hour check until discontinued starting 06/07/2024, 4 completedProEncompass Health Rehabilitation Hospital Of North Alabama Health SystemComment on above:Every 12 hour check until discontinued starting 06/07/2024, 4 completed Immunizations Immunization DateImmunizationNotesCare UvgcrpipMdodgaak83-64-2275Biekzyvyh Vaccine, Quadrivalent, AdjuvantedHeather Nikita DIRECTOR [employer]RSE KEEPER Work Phone: [facility] Mpjptz10-65-7603vblnmcfnl virus vaccine, unspecified formulationSmira Juarez MD Work Phone: [facility] Payers DatePayer CategoryPayerPolicy [id number]-[id number] Health [id number] Care Other (unspecified)[place] [id number] [id number] Cross Blue ShieldBCBS Member Subscriber Plan / Payer (Effective 2019-Present) Name: Johnathan Rodney Relation to Subscriber: Spouse Name: TOANPB Date of : 1952 Address: [address] [place] [address] Payer ID: Not on file Type: Not on file Address: [address] [place] [id number] Psychiatric Care [place] Care - OtherUNC [facility]ALTH Member Subscriber Plan / Payer (Effective 2019-Present) Name: KARMEN RODNEY SR Relation to Subscriber: Spouse Name: PB RODNEY Date of : 1952 (Home) Address: [address] [place] [address] Payer ID: [id number] (NAIC) Type: Not on file Address: [address] [place] [id number]. UnknownBCBS BCBS [id number] 2019-Present [phone] [address] [place] [id number] 2020Medicare [id number] [id number] 2020 [id number] 2.840.1.910040.3.57[id number] 2.840.1.697773.3.579.2.429293-32-9046Tvqafzf5752541 2.840.1.641145.3.579.2.262793-96-3592Vesqtsj8038459 2.16.840.1.036161.3.579.2.715023-98-2134Aomklwx042535793 2.16840.1.657941.3.579.2.896585-91-9137Liacnyi876779067 2.16840.1.719107.3.579.2.788152-29-8538Sopcimt955922584 2.16840.1.610646.3.579.2.178746-92-7305Ymvtsxz618946569 2.160.1.073287.3.579.2.221723-90-6965Uuvhvxm237504879 2.16840.1.814754.3.579.2.[id number] 2.0.1.686529.3.579.2.239[id number] 2.840.1.491688.3.579.2.725002-85-4114Efymjsj01438136 2.840.1.763868.3.579.2.18582-39-2418Pyumjkk03877152 2.0.1.858777.3.579.2.60093-13-4160Wnohukk66731689 2.0.1.337334.3.579.2.91196-18-1473Yxydhfg50305660 2.160.1.511209.3.579.2.94250-75-3851Xiupmxt40843885 2.16840.1.271164.3.579.2.72524-76-0005Axgqhnz85145882 2.16840.1.143806.3.579.2.63373-19-7850Txggsdr46890323 2.16840.1.165119.3.579.2.16853-01-2312Dvotjhf54750010 2.16.840.1.162504.3.579.2.727UnknownRegular [id number] fmw4xu8z-1ict-0124-[id number] 2.16.840.1.663688.3.579.2.531 Social History DateTypeDetailFacilityStart: 05-24-2023 End: 74-55-0135Trfwkmn smoking status NHISNever smoked tobaccoNOMS Healthcare Start: 05-24-2023 End: 43-62-2289Rahlulc use and exposureSmokeless tobacco non-userNOMS Healthcare Start: 43-48-9434Gkqggud intakeLifetime non-drinker (finding)[facility] Start: 05-24-2023 End: 36-57-4846Ewcgtkb of Social functionNOMS HealthcareStart: 05-24-2023 End: 33-95-7655Daloncs use panelNOMS HealthcareStart: 88-17-1572Xgh Assigned At BirthNot on fileNOMS HealthcareStart: 02-23-2022 End: 28-02-3887Qazjavc smoking status NHISEx-smokerProMedica Health System History of tobacco useCurrent smokerProMedica Health SystemStart: 06-07-2024 Alcoholic beverage intakeCurrent drinker of alcohol (finding)ProMedicLiquid Health Labs SystemStart: 96-93-8549Kpu the [employer], gas, oil, or water [employer] threatened to shut off services in your home in past 12MoPatient unable to answerProJob1001 Health SystemStart: 72-92-8578LsxIegc (finding)[facility] SystemSexual OrientationExec[facility] of [facility] start: 88-51-3644Wvs [facility]igned At [facility] Limatart: 36-16-7716Wnbnovcme beverage intakeEx-drinker (finding)NOMS HealthcareNEGATED: Highlighted rowStart: NINFHistory of tobacco usePassive smokerNOMS Healthcare Goals DatePatient GoalDesired Activity/StatePersonal health goalComment on above: Evaluation of progress towards goal: Functional Status CbdaEqhdeyecghDlxfulLpdctqmp64-65-6155Gfseoeyhat StatusN/AExecutive [facility] of [facility] Okbgqzmh98-93-4038Zdmpnac Health Questionnaire 2 item (PHQ-2) [Reported][facility] Mental Status DateAssessmentResultFaDepartment of Veterans Affairs [facility] Clinical Notes 06-07-2024 to 02-18-2025 Note Date & KqixKsidLpislrlw12-63-6636 Hospital Discharge instructions Follow Up Care 02/18/2025 13:29:19 With:RUSTY MCCALL, DONAL, KEERTHIL Address: When: Unknown [facility] [place] [id number] NotePatient Education Urology Acute Urinary Retention, Male [...] these instructions at home: Medicines ??? Take anmh-kxn-ecjxxko and prescription medicines only as told by [...] provider. Document Revised: 01/13/2021 Document Reviewed: 01/13/2021 [employer] Patient Education ? 2023 [employer].[facility] 06-26-2024 NotePatient Education Urology Benign Prostatic Hyperplasia [...] Follow these instructions at home: ??? Take pias-ngl-cjlizto and prescription medicines only as told by [...] symptoms do not get (more content not included)...[facility]02-05-2025 Nurse Note* Shazia Haynes RN - 06/12/2024 1:50 PM EST Summary: discharge Patient transported to facility by daughter, patient VSS. IV and tele removed. Pt wheeled down to Ex[employer] car. [place]02-05-2025 Nurse Note* Shazia Haynes RN - 06/12/2024 1:50 PM ESTSummary: discharge Patient transported to facility by daughter, patient VSS. IV and tele removed. Pt wheeled down to Ex[employer] car. * Shazia Haynes RN - 06/11/2024 [...] it kept coiling and would not advance. [employer] messaged person contract administration manager for urology at 0521. Was not [...] At 2119 RN called Vito BENEDICTRLucas with [facility] Team G as primary care team. Stat head CT ordered. Neuro assessment and vitals completed per RN. No neuro changes. Patient still A&O X 4, just slow to say the complete year correctly. Primary updated on assessment and Kiki MANCUSO took patient to CT. - Meaghan Lam RN 06/07/24 9:49 PM documented in this encounterK[facility]tering [facility]02-05-2025 Plan of care note * Plan of [...] at the bedside 7. Instruct patient/ patient senior human resources representative about use of safety devices 8. Include patient/ patient senior human resources representative in decisions related to safety Outcome: Progressing Note: Evaluation of progress towards goal: Patient free from injury, will continue to provide a clean environment, personal objects in reach, and a well light room Problem: Knowledge Deficit Goal: Patient/patient senior human resources representative demonstrates understanding of disease process, treatment [...] be free from fall Description: Interventions: 1. [place] to environment 2. Hourly rounds addressing the [...] non-skid footwear 11. Teach patient and patient senior human resources representative to maintain environment for safety and [...] (cane, walker) within reach 19. Request patient senior human resources representative bring adaptive equipment/mobility aids from home or obtain and provide as needed 20. Consult pharmacy regarding effects of med's affecting mobility, cognition, and alternatives 21. Obtain physician order for PT if risk factors associated with mobility are present 22. Obtain physician order for OT as appropriate 23. Utilize diversional activities 24. Educate patient and patient senior human resources representative how to maintain a safe environment during visitationtimes (notify nurse prior to leaving bedside) 25. Consider appropriateness of medical or non-medical technicians 26. Set up voiding schedule as appropriate (every 2 hours) Outcome: Progressing Note: Evaluation of progress towards goal: Patient free from injury, will continue to provide a clean environment, personal objects in reach, and a well light room [facility] [email or web address] Dmvkoh91-16-0632 Miscellaneous Notes* Plan of Care - Shazia [...] at the bedside 7. Instruct patient/ patient senior human resources representative about use of safety devices 8. Include patient/ patient senior human resources representative in decisions related to safety Outcome: Progressing Note: Evaluation of progress towards goal: Patient free from injury, will continue to provide a clean environment, personal objects in reach, and a well light room Problem: Knowledge Deficit Goal: Patient/patient senior human resources representative demonstrates understanding of disease process, treatment [...] Score of =/> 25 or indicated by [facility] Assessment Goal: Patient should be free from fall Description: Interventions: 1. [place] to environment 2. Hourly rounds addressing the [...] non-skid footwear 11. Teach patient and patient senior human resources representative to maintain environment for safety and [...] (cane, walker) within reach 19. Request patient senior human resources representative bring adaptive equipment/mobility aids from home or obtain and provide as needed 20. Consult pharmacy regarding effects of med's affecting mobility, cognition, and alternatives 21. Obtain physician order for PT if risk factors associated with mobility are present 22. Obtain physician order for OT as appropriate 23. Utilize diversional activities 24. Educate patient and patient senior human resources representative how to maintain a safe environment during visitationtimes (notify nurse prior to leaving bedside) 25. Consider appropriateness of medical or non-medical technicians 26. Set up voiding schedule as appropriate (every 2 hours) Outcome: Progressing Note: Evaluation of progress towards goal: Patient free from injury, will continue to provide a clean environment, personal objects in reach, and a well light room * Discharge Planning Note - MILLIE Call - 06/12/2024 11:21 AM EST DISCHARGE PLANNING NOTE [facility] accepted referral and [facility] will not have a bed available. Social work contacted daughter to inform of above and daughter requested referral to [facility]. Social work sent referral and [facility] is accepting referral. Social work contacted daughter to inquire about NSF preference and she is interested in [facility]. Discharge written, CRF complete. [facility] notified of discharge and CRF sent. Daughter will transport patient this afternoon to SNF. RN updated. HENS submitted. - MLILIE CALL 06/12/24 11:23 AM * Plan of Care - Kate Benson RN - 06/12/2024 12:49 AM EST Problem: Pain Goal: Patient goal is pain score less than 4, able to rest, and participant in treatment plan as appropriate Description: INTERVENTIONS: 1. Encourage patient or legal senior human resources representative to report early pain and ask [...] per policy 9. Teach patient or legal senior human resources representative interventions for comforting Outcome: Progressing Note: [...] at the bedside 7. Instruct patient/ patient senior human resources representative about use of safety devices 8. Include patient/ patient senior human resources representative in decisions related to safety Outcome: [...] hygiene technique. 7. Identify and instruct patient/patient senior human resources representative in use of appropriate isolation precautionsfor identified infection/symptoms. 8. Provide and discuss with patient/patient senior human resources representative on educational MDRO sheet. 9. Encourage and monitor nutritional status daily and consult senior cyber intelligence analyst if indicated. 10. Implement neutropenic guidelines as needed. Outcome: Progressing Note: Evaluation of progress towards goal: Patient currently on IV antibiotics Problem: Knowledge Deficit Goal: Patient/patient senior human resources representative demonstrates understanding of disease process, treatment [...] Score of =/> 25 or indicated by [facility] Assessment Goal: Patient should be free from fall Description: Interventions: 1. [place] to environment 2. Hourly rounds addressing the [...] non-skid footwear 11. Teach patient and patient senior human resources representative to maintain environment for safety and [...] (cane, walker) within reach 19. Request patient senior human resources representative bring adaptive equipment/mobility aids from home or obtain and provide as needed 20. Consult pharmacy regarding effects of med's affecting mobility, cognition, and alternatives 21. Obtain physician order for PT if risk factors associated with mobility are present 22. Obtain physician order for OT as appropriate 23. Utilize diversional activities 24. Educate patient and patient senior human resources representative how to maintain a safe environment during visitationtimes (notify nurse prior to leaving bedside) 25. Consider appropriateness of medical or non-medical technicians 26. Set up voiding schedule as appropriate [...] at the bedside 7. Instruct patient/ patient senior human resources representative about use of safety devices 8. Include patient/ patient senior human resources representative in decisions related to safety Outcome: [...] hygiene technique. 7. Identify and instruct patient/patient senior human resources representative in use of appropriate isolation precautionsfor identified infection/symptoms. 8. Provide and discuss with patient/patient senior human resources representative on educational MDRO sheet. 9. Encourage and monitor nutritional status daily and consult senior cyber intelligence analyst if indicated. 10. Implement neutropenic guidelines as needed. Outcome: Progressing Note: Evaluation of progress towards goal: patient is being treated with IV ATB. Problem: Knowledge Deficit Goal: Patient/patient senior human resources representative demonstrates understanding of disease process, treatment [...] be free from fall Description: Interventions: 1. [place] to environment 2. Hourly rounds addressing the [...] non-skid footwear 11. Teach patient and patient senior human resources representative to maintain environment for safety and [...] (cane, walker) within reach 19. Request patient senior human resources representative bring adaptive equipment/mobility aids from home or obtain and provide as needed 20. Consult pharmacy regarding effects of med's affecting mobility, cognition, and alternatives 21. Obtain physician order for PT if risk factors associated with mobility are present 22. Obtain physician order for OT as appropriate 23. Utilize diversional activities 24. Educate patient and patient senior human resources representative how to maintain a safe environment during visitationtimes (notify nurse prior to leaving bedside) 25. Consider appropriateness of medical or non-medical technicians 26. Set up voiding schedule as appropriate [...] EST DISCHARGE PLANNING NOTE Referrals sent to [facility]/ [place], [place] (P# ; F# ) and to [facility] in [place] (P#: [phone]; F#: ) * Discharge Planning [...] patient and daughter are requesting referral to [facility] and [facility]. Social work task [facility] to send referral to above facilities- wait acceptance. Patient will not require precert for placement. CN will continue to follow and is available should any further needs arise. - MILLIE CALL 06/11/24 4:11 PM * PT/OT/LABEL PASTER - Horacio Erickson PT - 06/11/2024 3:23 PM EST Physical Therapy Treatment Discharge Recommendations PT Recommendations: Retirement Facility SNF/ECF Comments: due to decreased functional [...] mobility, pass Equipment: gait belt, RW, arenas Telemetry/Shift Supervisor Rn: Yes Oxygen Used: room air Other: High [...] Patient will perform bed mobility with Modified [place] Dates: Start: 06/09/24 Expected End: 06/23/24 Description: Goal Description: Disciplines: PT Problem: Gait Dates: Start: 06/09/24 Disciplines: PT Goal: Patient will perform gait with Modified [place] Dates: Start: 06/09/24 Expected End: 06/23/24 Description: [...] Goal: Patient will perform transfers with Modified [place] Dates: Start: 06/09/24 Expected End: 06/23/24 Description: Goal Description: Disciplines: PT Outcomes Date/Time User Outcome 06/11/24 151 Horacio Erickson PT Progressing Goal Note filed on 06/11/24 151 by Horacio Erickson PT Evaluation of progress towards goal: Physical Therapy Care Plan (Resolved) There are no resolved problems. Principal Problem: Acute encephalopathy * PT/OT/LABEL PASTER - Ana Ventura OTR/[place]olome - 06/11/2024 2:41 PM EST Occupational Therapy Treatment Discharge Recommendations OT Recommendations : Retirement Facility SNF/ECF Comments: Recommend SNF for continued [...] JAMEE Mccray Equipment: Gait belt, RW, arenas Telemetry/Shift Supervisor Rn: Yes Oxygen Used: Room air Other: High [...] Patient will perform bed mobility with Modified Stanton Dates: Start: 06/09/24 Expected End: 07/07/24 Description: Goal Description: Disciplines: OT Problem: Cognition Dates: Start: 06/09/24 Disciplines: OT Goal: Patient's goal is: (specify details) Dates: Start: 06/09/24 Expected End: 07/07/24 Description: Pt will demonstrate good safety awareness 100% of the time Disciplines: OT Problem: Functional Mobility Dates: Start: 06/09/24 Disciplines: OT Goal: Patient will perform functional mobility with Modified Stanton Dates: Start: 06/09/24 Expected End: 07/07/24 Description: [...] Goal: Patient will perform transfers with Modified Stanton Dates: Start: 06/09/24 Expected End: 07/07/24 Description: [...] Description: INTERVENTIONS: 1. Encourage patient or legal senior human resources representative to report early pain and ask [...] per policy 9. Teach patient or legal senior human resources representative interventions for comforting Outcome: Progressing Note: [...] at the bedside 7. Instruct patient/ patient senior human resources representative about use of safety devices 8. Include patient/ patient senior human resources representative in decisions related to safety Outcome: [...] hygiene technique. 7. Identify and instruct patient/patient senior human resources representative in use of appropriate isolation precautionsfor identified infection/symptoms. 8. Provide and discuss with patient/patient senior human resources representative on educational MDRO sheet. 9. Encourage and monitor nutritional status daily and consult senior cyber intelligence analyst if indicated. 10. Implement neutropenic guidelines as needed. Outcome: Progressing Note: Evaluation of progress towards goal: Patient currently on IV antibiotics Problem: Knowledge Deficit Goal: Patient/patient senior human resources representative demonstrates understanding of disease process, treatment [...] be free from fall Description: Interventions: 1. [place] to environment 2. Hourly rounds addressing the [...] non-skid footwear 11. Teach patient and patient senior human resources representative to maintain environment for safety and [...] (cane, walker) within reach 19. Request patient senior human resources representative bring adaptive equipment/mobility aids from home or obtain and provide as needed 20. Consult pharmacy regarding effects of med's affecting mobility, cognition, and alternatives 21. Obtain physician order for PT if risk factors associated with mobility are present 22. Obtain physician order for OT as appropriate 23. Utilize diversional activities 24. Educate patient and patient senior human resources representative how to maintain a safe environment during visitationtimes (notify nurse prior to leaving bedside) 25. Consider appropriateness of medical or non-medical technicians 26. Set up voiding schedule as appropriate [...] as ordered 13. Collaborate with clinical senior cyber intelligence analyst 14. Include patient/ patient's senior human resources representative in decisions related to nutrition Outcome: [...] Description: INTERVENTIONS: 1. Encourage patient or legal senior human resources representative to report early pain and ask [...] per policy 9. Teach patient or legal senior human resources representative interventions for comforting Outcome: Progressing Note: [...] at the bedside 7. Instruct patient/ patient senior human resources representative about use of safety devices 8. Include patient/ patient senior human resources representative in decisions related to safety Outcome: [...] hygiene technique. 7. Identify and instruct patient/patient senior human resources representative in use of appropriate isolation precautionsfor identified infection/symptoms. 8. Provide and discuss with patient/patient senior human resources representative on educational MDRO sheet. 9. Encourage and monitor nutritional status daily and consult senior cyber intelligence analyst if indicated. 10. Implement neutropenic guidelines as needed. Outcome: Progressing Note: Evaluation of progress towards goal: Patient has remained free from infection during hospitalstay. Patient is afebrile and last WBC was 6.7. Will continue using standard precautions and monitoring for signs and symptoms of infection. Problem: Knowledge Deficit Goal: Patient/patient senior human resources representative demonstrates understanding of disease process, treatment [...] as ordered 13. Collaborate with clinical senior cyber intelligence analyst 14. Include patient/ patient's senior human resources representative in decisions related to nutrition Outcome: Progressing Note: Evaluation of progress towards goal: Patient appears to have adequate nutritional intake. Problem: Moderate - High Risk Fall Score Description: [place] Fall Score of =/> 25 or indicated by [facility] Assessment Goal: Patient should be free from fall Description: Interventions: 1. [place] to environment 2. Hourly rounds addressing the [...] non-skid footwear 11. Teach patient and patient senior human resources representative to maintain environment for safety and [...] (cane, walker) within reach 19. Request patient senior human resources representative bring adaptive equipment/mobility aids from home or obtain and provide as needed 20. Consult pharmacy regarding effects of med's affecting mobility, cognition, and alternatives 21. Obtain physician order for PT if risk factors associated with mobility are present 22. Obtain physician order for OT as appropriate 23. Utilize diversional activities 24. Educate patient and patient senior human resources representative how to maintain a safe environment during visitationtimes (notify nurse prior to leaving bedside) 25. Consider appropriateness of medical or non-medical technicians 26. Set up voiding schedule as appropriate [...] Description: INTERVENTIONS: 1. Encourage patient or legal senior human resources representative to report early pain and ask [...] per policy 9. Teach patient or legal senior human resources representative interventions for comforting Outcome: Progressing Note: [...] at the bedside 7. Instruct patient/ patient senior human resources representative about use of safety devices 8. Include patient/ patient senior human resources representative in decisions related to safety Outcome: [...] hygiene technique. 7. Identify and instruct patient/patient senior human resources representative in use of appropriate isolation precautionsfor identified infection/symptoms. 8. Provide and discuss with patient/patient senior human resources representative on educational MDRO sheet. 9. Encourage and monitor nutritional status daily and consult senior cyber intelligence analyst if indicated. 10. Implement neutropenic guidelines as needed. Outcome: Progressing Note: Evaluation of progress towards goal: [employer] assessed pt risk for infection in the beginning and throughout shift. Pt remains afebrile. Will continue to monitor. Problem: Knowledge Deficit Goal: Patient/patient senior human resources representative demonstrates understanding of disease process, treatment plan,medications, and discharge instructions Description: INTERVENTIONS 1. Complete learning assessment and assess knowledge base 2. Provide teaching at level of understanding 3. Provide teaching via preferred learning method(s) Outcome: Progressing Note: Evaluation of progress towards goal: [employer] educated pt on admission disease, medications, treatment, [...] as ordered 13. Collaborate with clinical senior cyber intelligence analyst 14. Include patient/ patient's senior human resources representative in decisions related to nutrition Outcome: [...] Score of =/> 25 or indicated by [facility] Assessment Goal: Patient should be free from fall Description: Interventions: 1. [place] to environment 2. Hourly rounds addressing the [...] non-skid footwear 11. Teach patient and patient senior human resources representative to maintain environment for safety and [...] (cane, walker) within reach 19. Request patient senior human resources representative bring adaptive equipment/mobility aids from home or obtain and provide as needed 20. Consult pharmacy regarding effects of med's affecting mobility, cognition, and alternatives 21. Obtain physician order for PT if risk factors associated with mobility are present 22. Obtain physician order for OT as appropriate 23. Utilize diversional activities 24. Educate patient and patient senior human resources representative how to maintain a safe environment during visitationtimes (notify nurse prior to leaving bedside) 25. Consider appropriateness of medical or non-medical technicians 26. Set up voiding schedule as appropriate (every 2 hours) Outcome: Progressing Note: Evaluation of progress towards goal: [employer] assessed pt fall precautions in the beginning [...] Description: INTERVENTIONS: 1. Encourage patient or legal senior human resources representative to report early pain and ask [...] per policy 9. Teach patient or legal senior human resources representative interventions for comforting Outcome: Progressing Note: [...] at the bedside 7. Instruct patient/ patient senior human resources representative about use of safety devices 8. Include patient/ patient senior human resources representative in decisions related to safety Outcome: [...] hygiene technique. 7. Identify and instruct patient/patient senior human resources representative in use of appropriate isolation precautionsfor identified infection/symptoms. 8. Provide and discuss with patient/patient senior human resources representative on educational MDRO sheet. 9. Encourage and monitor nutritional status daily and consult senior cyber intelligence analyst if indicated. 10. Implement neutropenic guidelines as [...] be free from fall Description: Interventions: 1. [place] to environment 2. Hourly rounds addressing the [...] non-skid footwear 11. Teach patient and patient senior human resources representative to maintain environment for safety and [...] (cane, walker) within reach 19. Request patient senior human resources representative bring adaptive equipment/mobility aids from home or obtain and provide as needed 20. Consult pharmacy regarding effects of med's affecting mobility, cognition, and alternatives 21. Obtain physician order for PT if risk factors associated with mobility are present 22. Obtain physician order for OT as appropriate 23. Utilize diversional activities 24. Educate patient and patient senior human resources representative how to maintain a safe environment during visitationtimes (notify nurse prior to leaving bedside) 25. Consider appropriateness of medical or non-medical technicians 26. Set up voiding schedule as appropriate [...] wax/wane with mentation. Q4 neuros checked * PT/OT/LABEL PASTER - Ree Hinson OTR/[place] - 06/09/2024 12:07 PM EST Occupational Therapy Evaluation Discharge Recommendations OT Recommendations : Retirement Facility SNF/ECF Comments: Recommend SNF for continued [...] History: Diagnosis Date Abnormal EKG Atrial fibrillation ([facility]) Back pain Bradycardia Chronic atrial fibrillation ([facility]) Hypertension Hypertensive heart disease without heart failure Hypokalemia Pure hypercholesterolemia Urinary tract infection 01/2019 seen by [facility] No past surgical history on file. [...] mobility guidelines Equipment: Gait belt, RW, arenas Telemetry/Shift Supervisor Rn: Yes Oxygen Used: Room air Other: High [...] Patient will perform bed mobility with Modified Stanton Dates: Start: 06/09/24 Expected End: 07/07/24 Description: Goal Description: Disciplines: OT Problem: Cognition Dates: Start: 06/09/24 Disciplines: OT Goal: Patient's goal is: (specify details) Dates: Start: 06/09/24 Expected End: 07/07/24 Description: Pt will demonstrate good safety awareness 100% of the time Disciplines: OT Problem: Functional Mobility Dates: Start: 06/09/24 Disciplines: OT Goal: Patient will perform functional mobility with Modified Stanton Dates: Start: 06/09/24 Expected End: 07/07/24 Description: [...] Goal: Patient will perform transfers with Modified Stanton Dates: Start: 06/09/24 Expected End: 07/07/24 Description: Goal Description: Disciplines: OT Occupational Therapy Care Plan (Resolved) There are no resolved problems. Principal Problem: Acute encephalopathy * PT/OT/LABEL PASTER - Sadie Sim PT - 06/09/2024 11:21 AM EST Physical Therapy Evaluation Discharge Recommendations PT Recommendations: Retirement Facility SNF/ECF Comments: pt will need SNF [...] status decline resulting from admission 06/07/24 from [facility] where he went with afib with RVR and altered mentalstatus. MRI brain without acute findings but chronic infarct post R frontal lobe. Neuro stroke consulted and recommended transfer to [facility]. Diagnosed with acute encphalopathy, afib with [...] hypercholesterolemia Urinary tract infection 01/2019 seen by [facility] No past surgical history on file. [...] to see Equipment: RW, gait belt, catheter Telemetry/Shift Supervisor Rn: Yes Oxygen Used: room air Other: pt [...] Patient will perform bed mobility with Modified Stanton Dates: Start: 06/09/24 Expected End: 06/23/24 Description: Goal Description: Disciplines: PT Problem: Gait Dates: Start: 06/09/24 Disciplines: PT Goal: Patient will perform gait with Modified [place] Dates: Start: 06/09/24 Expected End: 06/23/24 Description: [...] Goal: Patient will perform transfers with Modified Stanton Dates: Start: 06/09/24 Expected End: 06/23/24 Description: [...] at the bedside 7. Instruct patient/ patient senior human resources representative about use of safety devices 8. Include patient/ patient senior human resources representative in decisions related to safety Outcome: Progressing Note: Evaluation of progress towards goal: Patient free from injury, will continue to provide a clean environment, personal objects in reach, and a well light room Problem: Knowledge Deficit Goal: Patient/patient senior human resources representative demonstrates understanding of disease process, treatment [...] be free from fall Description: Interventions: 1. [place] to environment 2. Hourly rounds addressing the [...] non-skid footwear 11. Teach patient and patient senior human resources representative to maintain environment for safety and [...] (cane, walker) within reach 19. Request patient senior human resources representative bring adaptive equipment/mobility aids from home or obtain and provide as needed 20. Consult pharmacy regarding effects of med's affecting mobility, cognition, and alternatives 21. Obtain physician order for PT if risk factors associated with mobility are present 22. Obtain physician order for OT as appropriate 23. Utilize diversional activities 24. Educate patient and patient senior human resources representative how to maintain a safe environment during visitationtimes (notify nurse prior to leaving bedside) 25. Consider appropriateness of medical or non-medical technicians 26. Set up voiding schedule as appropriate (every 2 hours) Outcome: Progressing Note: Evaluation of progress towards goal: Patient free from injury, will continue to provide a clean environment, personal objects in reach, and a well light room * PT/OT/LABEL PASTER - Will Doyle PT - 06/08/2024 11:04 [...] Description: INTERVENTIONS: 1. Encourage patient or legal senior human resources representative to report early pain and ask [...] per policy 9. Teach patient or legal senior human resources representative interventions for comforting Outcome: Progressing Note: [...] at the bedside 7. Instruct patient/ patient senior human resources representative about use of safety devices 8. Include patient/ patient senior human resources representative in decisions related to safety Outcome: [...] hygiene technique. 7. Identify and instruct patient/patient senior human resources representative in use of appropriate isolation precautionsfor identified infection/symptoms. 8. Provide and discuss with patient/patient senior human resources representative on educational MDRO sheet. 9. Encourage and monitor nutritional status daily and consult senior cyber intelligence analyst if indicated. 10. Implement neutropenic guidelines as needed. Outcome: Progressing Note: Evaluation of progress towards goal: Patient has remained afebrile. WBC and vital signs monitored. Patient has not shown any additional signs of infection at this time. Problem: Knowledge Deficit Goal: Patient/patient senior human resources representative demonstrates understanding of disease process, treatment [...] Score of =/> 25 or indicated by [facility] Assessment Goal: Patient should be free from fall Description: Interventions: 1. [place] to environment 2. Hourly rounds addressing the [...] non-skid footwear 11. Teach patient and patient senior human resources representative to maintain environment for safety and [...] (cane, walker) within reach 19. Request patient senior human resources representative bring adaptive equipment/mobility aids from home or obtain and provide as needed 20. Consult pharmacy regarding effects of med's affecting mobility, cognition, and alternatives 21. Obtain physician order for PT if risk factors associated with mobility are present 22. Obtain physician order for OT as appropriate 23. Utilize diversional activities 24. Educate patient and patient senior human resources representative how to maintain a safe environment during visitationtimes (notify nurse prior to leaving bedside) 25. Consider appropriateness of medical or non-medical technicians 26. Set up voiding schedule as appropriate [...] about disease process, medications, and treatment plan. [employer] to update patient throughout the shift regarding [...] at the bedside 7. Instruct patient/ patient senior human resources representative about use of safety devices 8. Include patient/ patient senior human resources representative in decisions related to safety Outcome: Progressing Note: Evaluation of progress towards goal: Patient free from injury, will continue to provide a clean environment, personal objects in reach, and a well light room Problem: Knowledge Deficit Goal: Patient/patient senior human resources representative demonstrates understanding of disease process, treatment [...] be free from fall Description: Interventions: 1. [place] to environment 2. Hourly rounds addressing the [...] non-skid footwear 11. Teach patient and patient senior human resources representative to maintain environment for safety and [...] (cane, walker) within reach 19. Request patient senior human resources representative bring adaptive equipment/mobility aids from home or obtain and provide as needed 20. Consult pharmacy regarding effects of med's affecting mobility, cognition, and alternatives 21. Obtain physician order for PT if risk factors associated with mobility are present 22. Obtain physician order for OT as appropriate 23. Utilize diversional activities 24. Educate patient and patient senior human resources representative how to maintain a safe environment during visitationtimes (notify nurse prior to leaving bedside) 25. Consider appropriateness of medical or non-medical technicians 26. 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 documented in this encounterMetroHealth [facility] Centeruserfox [facility] HospitalNbiycf[facility] Progress note* Discharge Planning Note - MILLIE Call - 06/12/2024 11:21 AM EST DISCHARGE PLANNING NOTE [facility] accepted referral and [facility] will not have a bed available. Social work contacted daughter to inform of above and daughter requested referral to [facility] and [facility]. [facility]. [facility] work contacted daughter to inquire about NSF preference and she is interested in [facility]. Discharge written, CRF complete. [place] [facility] notified of discharge and CRF sent. Daughter will transport patient this afternoon to SNF. RN updated. HENS submitted. - MILLIE CALL 06/12/24 11:23 AM [facility]02-05-2025 Hospital course Narrative* Tabatha León MD - 06/12/2024 11:06 AM EST Images from the original note were not included. [facility] Hospitalists Discharge Summary CONFIDENTIAL INFORMATION [...] DO -- Gastroenterology PCP: Patient Care Team: [facility] as PCP - General (Family Medicine) Hospital Course HPI Johnathan Rodney is a 68 y.o. male medical history significant for atrial fibrillation, hypertension, chronic systolic heart failure, history of alcohol use disorder, who presented to [facility] for evaluation of altered mentation. Patient [...] was consulted and they recommended transfer to [facility] for evaluation with potential lumbar puncture. [...] Your Medications These medications were sent to [facility]/pharmacy #[id number] - [place], [place] - [address] [facility] [address] atorvastatin 40 mg tablet carvediloL 12.5 mg [...] special instructions. Follow up: Lizbeth Horne MD [address] [place], [place] [id number] Schedule an appointment as soon as possible for a visit in 2 week(s) to discuss urinary issues [address] [phone] Greater than 35 minutes were spent on discharging this patient. Electronically SIGNED by Licensed Independent Practitioner: Tabatha León MD [facility] Phys[facility] Hospitalists, Department of Internal Medicine [...] have escaped final proofreading documented in this [facility] Plan of care note * Plan of Care - Kate Benson RN - 06/12/2024 12:49 AM EST Problem: Pain Goal: Patient goal is pain score less than 4, able to rest, and participant in treatment plan as appropriate Description: INTERVENTIONS: 1. Encourage patient or legal senior human resources representative to report early pain and ask [...] per policy 9. Teach patient or legal senior human resources representative interventions for comforting Outcome: Progressing Note: [...] at the bedside 7. Instruct patient/ patient senior human resources representative about use of safety devices 8. Include patient/ patient senior human resources representative in decisions related to safety Outcome: [...] hygiene technique. 7. Identify and instruct patient/patient senior human resources representative in use of appropriate isolation precautionsfor identified infection/symptoms. 8. Provide and discuss with patient/patient senior human resources representative on educational MDRO sheet. 9. Encourage and monitor nutritional status daily and consult senior cyber intelligence analyst if indicated. 10. Implement neutropenic guidelines as needed. Outcome: Progressing Note: Evaluation of progress towards goal: Patient currently on IV antibiotics Problem: Knowledge Deficit Goal: Patient/patient senior human resources representative demonstrates understanding of disease process, treatment [...] Score of =/> 25 or indicated by [facility] Assessment Goal: Patient should be free from fall Description: Interventions: 1. [place] to environment 2. Hourly rounds addressing the [...] non-skid footwear 11. Teach patient and patient senior human resources representative to maintain environment for safety and [...] (cane, walker) within reach 19. Request patient senior human resources representative bring adaptive equipment/mobility aids from home or obtain and provide as needed 20. Consult pharmacy regarding effects of med's affecting mobility, cognition, and alternatives 21. Obtain physician order for PT if risk factors associated with mobility are present 22. Obtain physician order for OT as appropriate 23. Utilize diversional activities 24. Educate patient and patient senior human resources representative how to maintain a safe environment during visitationtimes (notify nurse prior to leaving bedside) 25. Consider appropriateness of medical or non-medical technicians 26. Set up voiding schedule as appropriate [...] of progress towards goal: Neuro status improving. [facility]02-04-2025 Plan of care note* Plan of Care [...] at the bedside 7. Instruct patient/ patient senior human resources representative about use of safety devices 8. Include patient/ patient senior human resources representative in decisions related to safety Outcome: [...] hygiene technique. 7. Identify and instruct patient/patient senior human resources representative in use of appropriate isolation precautionsfor identified infection/symptoms. 8. Provide and discuss with patient/patient senior human resources representative on educational MDRO sheet. 9. Encourage and monitor nutritional status daily and consult senior cyber intelligence analyst if indicated. 10. Implement neutropenic guidelines as needed. Outcome: Progressing Note: Evaluation of progress towards goal: patient is being treated with IV ATB. Problem: Knowledge Deficit Goal: Patient/patient senior human resources representative demonstrates understanding of disease process, treatment [...] Score of =/> 25 or indicated by [facility] Assessment Goal: Patient should be free from fall Description: Interventions: 1. [place] to environment 2. Hourly rounds addressing the [...] non-skid footwear 11. Teach patient and patient senior human resources representative to maintain environment for safety and [...] (cane, walker) within reach 19. Request patient senior human resources representative bring adaptive equipment/mobility aids from home or obtain and provide as needed 20. Consult pharmacy regarding effects of med's affecting mobility, cognition, and alternatives 21. Obtain physician order for PT if risk factors associated with mobility are present 22. Obtain physician order for OT as appropriate 23. Utilize diversional activities 24. Educate patient and patient senior human resources representative how to maintain a safe environment during visitationtimes (notify nurse prior to leaving bedside) 25. Consider appropriateness of medical or non-medical technicians 26. Set up voiding schedule as appropriate [...] improving- patient is alert and oriented [facility] [id number] Progress note* Discharge Planning Note - Keri Madrid - 06/11/2024 4:29 PM EST DISCHARGE PLANNING NOTE Referrals sent to [facility]/ [facility], [place], [place] (P# ; F# ) and to [facility] in [place] (P#: [phone]; F#: ) [facility] [id number] Progress note* Discharge Planning Note - MILLIE [...] patient and daughter are requesting referral to [facility]. Social work task RC to send referral to above facilities- wait acceptance. Patient will not require precert for placement. CN will continue to follow and is available should any further needs arise. - MILLIE CALL 06/11/24 4:11 PM [facility]02-04-2025 Progress note* PT/OT/LABEL PASTER - Horacio Erickson, PT - 06/11/2024 3:23 PM EST Physical Therapy Treatment Discharge Recommendations PT Recommendations: Retirement Facility SNF/ECF Comments: due to decreased functional [...] mobility, pass Equipment: gait belt, RW, arenas Telemetry/Shift Supervisor Rn: Yes Oxygen Used: room air Other: High [...] Patient will perform bed mobility with Modified [place] Dates: Start: 06/09/24 Expected End: 06/23/24 Description: Goal Description: Disciplines: PT Problem: Gait Dates: Start: 06/09/24 Disciplines: PT Goal: Patient will perform gait with Modified [place] Dates: Start: 06/09/24 Expected End: 06/23/24 Description: [...] Goal: Patient will perform transfers with Modified [place] Dates: Start: 06/09/24 Expected End: 06/23/24 Description: Goal Description: Disciplines: PT Outcomes Date/Time User Outcome 06/11/241511 Horacio Erickson PT Progressing Goal Note filed on 06/11/24 151 by Horacio Erickson PT Evaluation of progress towards goal: Physical Therapy Care Plan (Resolved) There are no resolved problems. Principal Problem: Acute encephalopathy [facility]02-04-2025 Progress note* PT/OT/LABEL PASTER - Ana Ventura OTR/L - 06/11/2024 2:41 PM EST Occupational Therapy Treatment Discharge Recommendations OT Recommendations : Retirement Facility SNF/ECF Comments: Recommend SNF for continued [...] JAMEE Mccray Equipment: Gait belt, RW, arenas Telemetry/Shift Supervisor Rn: Yes Oxygen Used: Room air Other: High [...] Patient will perform bed mobility with Modified [place] Dates: Start: 06/09/24 Expected End: 07/07/24 Description: Goal Description: Disciplines: OT Problem: Cognition Dates: Start: 06/09/24 Disciplines: OT Goal: Patient's goal is: (specify details) Dates: Start: 06/09/24 Expected End: 07/07/24 Description: Pt will demonstrate good safety awareness 100% of the time Disciplines: OT Problem: Functional Mobility Dates: Start: 06/09/24 Disciplines: OT Goal: Patient will perform functional mobility with Modified [place] Dates: Start: 06/09/24 Expected End: 07/07/24 Description: [...] Goal: Patient will perform transfers with Modified [place] Dates: Start: 06/09/24 Expected End: 07/07/24 Description: Goal Description: Disciplines: OT Outcomes Date/Time User Outcome 06/11/241517 JERMAN Orr/Bartolome Progressing Goal Note filed on 06/11/241517 by CY Orr Evaluation of progress towards goal: Occupational Therapy Care Plan (Resolved) There are no resolved problems. Principal Problem: Acute encephalopathy [facility]02-04-2025 Nurse Note* Shazia Haynes RN - 06/11/2024 2:31 PM ESTSummary: patient behavior Patient declined walking with RN and NA multiple times. Patient declined having food warmed up, RN provided box lunch for patient. Patient continues to talk down to staff. [facility]02-04-2025 History of Present illness Narrative* Tabatha León [...] or primary neurological disorders. Bertha Oakley MD [employer] Collector Neurology/Neurophysiology [facility] brain without contrast Result Date: [...] appreciable flow related enhancement within the proximal D2sallkxc possibly due to flow dynamics and daxr-te-mieepe technique as there appears to be normal contrast enhancement within the V4 segment on the MRA of the neck Basilar artery: Normal. food service lead: The left COW TRIMMER is normal. Diminished flow related enhancement within the distal right COW TRIMMER distribution likely sequelae of prior right COW TRIMMER infarct. IMPRESSION: 1. Diminished flow related signal within the right COW TRIMMER is likely chronic and related to known right chronic occipital infarct/encephalomalacia. 2. Diminished flow related enhancement within the proximal right vertebral artery is likely due to flow dynamics and uynz-du-tezubd technique is there is normal-appearing enhancement on [...] Correlate with symptoms. Sequelae of prior right COW TRIMMER territory ischemia Finalized by Zac Lucia on [...] was made toensure accuracy; however, inadvertent computerized gymnastic teacher errors may be present. * Eric Dejesus [...] Urology reconsulted for Arenas catheter placement. [employer]een [employer] [place] tip catheter placed without resistance with return [...] original note were not included. [facility] Neurology General Neurology Consultation Progress Note Consult Neurology Service: [phone] Primary Team: Howie Hospitalist Chief Concern and [...] for occult infection. Patient was transferred to [facility] for further evaluation. Interval history: [...] his history of alcohol use. PT OT, manager social work. Delirium precautions. No further inpatient neurology workup needed at this time, our service will sign off Marco A Reddy MD PGY-4, Neurology Resident [facility] 06/10/24 3:05 PM Staffed with: Dr. Bethea This patient is being followed by the Neurology Resident service. Contact attending directly during these hours: Monday to 7:30-8:30 A.M. to Monday 12-1:00 p.m. Primary Neurology service: [phone] Consult neurology service: [phone] Resident Stroke Service: [phone] If the patient belongs to the Stroke [...] agree with resident note. Guilherme Bethea MD [employer] Collector of Neurology [facility] 06/10/24 * Roseline Reyez MD - 06/10/2024 8:33 AM EST Images from the original note were not included. [facility] PH[facility]ANS HOSPITALIST PROGRESS NOTE 06/10/2024 Patient Name: [...] metoprolol (LOPRESSOR) IV, 5 mg, Q6H PRN bihnmtcy-xtdj-UU-calcium &mins, 1 tablet, Daily PRN potassium chloride, [...] Procedure Component Value Units Date/Time Urine culture [[id number]] Collected: 06/07/24 0751 Specimen: Urine Updated: 06/08/24 [...] appreciable flow related enhancement within the proximal A1svwaszd possibly due to flow dynamics and pwvk-lx-qbceni technique as there appears to be normal contrast enhancement within the V4 segment on the MRA of the neck Basilar artery: Normal. food service lead: The left COW TRIMMER is normal. Diminished flow related enhancement within the distal right COW TRIMMER distribution likely sequelae of prior right COW TRIMMER infarct. IMPRESSION: 1. Diminished flow related signal within the right COW TRIMMER is likely chronic and related to known right chronic occipital infarct/encephalomalacia. 2. Diminished flow related enhancement within the proximal right vertebral artery is likely due to flow dynamics and zbfp-qn-hraagf technique is there is normal-appearing enhancement on [...] Correlate with symptoms. Sequelae of prior right COW TRIMMER territory ischemia Finalized by Zac Lucia on [...] Electronically signed by: ROSELINE REYEZ MD, KRISTAL, [facility] 06/10/2024 2:29 PM Preferred contact method: #1. Epic chat #2. [facility] team pager Available from 7 am to 7 pm * Will Renee APRN-GOLF COURSE KEEPER - 06/09/2024 5:25 PM EST Images from the original note were not included. [facility] [address] [place] [address], [address] [place] [address] * NEUROSURGERY DAILY PROGRESS NOTE DATE:06/09/2024 PATIENT'S [...] Julio- [facility] Please contact via Concept[employer] first then can utilize Patient touch/VoceraEdge if needed 06/09/24 5:34 PM To find out which JAK is on for the day please go to [employer] and use log in [employer] and search for PTH Neurosurgery (JAK and Phone Number is listed) NIRMALA Beebe 06/09/24 [id number] * Roseline Reyez MD - 06/09/2024 9:45 [...] metoprolol (LOPRESSOR) IV, 5 mg, Q6H PRN vukdwfuh-xvsz-GC-calcium &mins, 1 tablet, Daily PRN potassium chloride, [...] Procedure Component Value Units Date/Time Urine culture [[id number]] Collected: 06/07/24 0751 Specimen: Urine Updated: 06/08/24 [...] or primary neurological disorders. Bertha Oakley MD [employer] Collector Neurology/Neurophysiology [facility] brain without contrast Result Date: [...] magnesium sulfate magnesium sulfate metoprolol (LOPRESSOR) IV xudatjsf-cgat-PS-calcium &mins potassium chloride OR potassium chloride OR [...] and marijuana use who was transferred to [facility] from OSH with AMS and hyperbilirubinemia. [...] General Surgery C 6a - 6p Pager: [phone] 6p - 6a Pager: [phone] Cosigned by Nicolas Wells MD at 06/09/2024 [...] General Surgery and Minimally Invasive Surgery [address], [address] [place] [address] Office: * Marco A Reddy MD - 06/08/2024 5:51 PM EST Images from the original note were not included. [facility] Neurology General Neurology Consultation Progress Note Consult Neurology Service: [phone] Primary Team: [facility] Hospitalist Chief Concern and Reason for Consultation: [...] for occult infection. Patient was transferred to [facility] for further evaluation. Interval history: [...] Marco A Reddy MD PGY-4, Neurology Resident [facility] 06/08/24 5:51 PM Staffed with: Dr. Bethea This patient is being followed by the Neurology Resident service. Contact attending directly during these hours: Monday to 7:30-8:30 A.M. to Monday 12-1:00 p.m. Primary Neurology service: [phone] Consult neurology service: [phone] Resident Stroke Service: [phone] If the patient belongs to the Stroke [...] LORazepam OR LORazepam magnesium sulfate magnesium sulfate jyglzwju-kyju-HL-calcium &mins potassium chloride OR potassium chloride OR [...] or primary neurological disorders. Bertha Oakley MD [employer] Coin Collector Neurology/Neurophysiology [facility] brain without contrast CT HEAD [...] and marijuana use who was transferred to [facility] from OSH with AMS and hyperbilirubinemia. [...] General Surgery C 6a - 6p Pager: [phone] 6p - 6a Pager: [phone] Cosigned by Nicolas Wells MD at 06/08/2024 [...] FACS General Surgery and Minimally Invasive Surgery [address] [place] [address], [address] [place] [address] Office: * Essence Shelton, DIRECTOR [place]-GOLF COURSE KEEPER - 06/08/2024 10:31 AM EST [facility] Gastroenterology/Hepatology Progress Note IDENTIFYING DATA PATIENT: [...] mg, PRN magnesium sulfate, 4,000 mg, PRN efjhctfj-thmi-PY-calcium &mins, 1 tablet, Daily PRN potassium chloride, [...] with encephalopathy after presenting to [facility] with altered mental status and hallucinations. [...] standpoint. GI will sign off. NIRMALA Kennedy [facility] [address] [place], [place] [id number] PH: [phone] NIRMALA Kuhn 06/08/24 1530 * Roseline Reyez MD - 06/08/2024 10:15 AM EST Images from the original note were not included. [facility] HOSPITALIST PROGRESS NOTE 06/08/2024 Patient Name: [...] for Arenas catheter. Alcohol use disorder- on [facility] protocol. Thiamine and folic acid. Marijuana [...] mg, PRN magnesium sulfate, 4,000 mg, PRN yaubuexg-ylnz-VD-calcium &mins, 1 tablet, Daily PRN potassium chloride, [...] Procedure Component Value Units Date/Time Urine culture [[id number]] Collected: 06/07/24 0751 Specimen: Urine Updated: 06/08/24812 [...] or primary neurological disorders. Bertha Oakley MD [employer] Coin Collector Neurology/Neurophysiology [facility] brain without contrast Result Date: [...] Preferred contact method: #1. Epic chat #2. [facility] team pager Available from 7 am [...] original note were not included. [facility] Neurology General Neurology Consultation Progress Note Consult Neurology Service: [phone] Primary Team: [facility] Chief Concern and Reason for [...] occult infection. Patient was tra nsferred to [facility] for further evaluation. Overnight, no [...] light touch throughout. Cerebellar: Able to do yygyhn-lk-aiwb bilaterally; normal coordination Gait and station: Deferred. [...] secondary to metabolic encephalopathy versus delirium versus RADIATION ENGINEER infection versus seizure. Remote right frontal and [...] Shavonne Holbrook MD PGY-2 Internal Medicine Resident [facility] 06/07/24 12:21 PM Staffed with: Dr. Marie This patient is being followed by the Neurology Resident service. Contact attending directly during these hours: Monday to 7:30-8:30 A.M. to Monday 12-1:00 p.m. Primary Neurology service: [phone] Consult neurology service: [phone] Resident Stroke Service: [phone] If the patient belongs to the Stroke [...] Garza RPH - 06/07/2024 6:12 AM EST [facility] Department of Pharmacy Pharmacist to Physician Communication The dose of metronidazole has been changed per the [facility] approved temporary dosing guidelines, due tothe drug continued drug shortage (adjusted from 500 mg IV every 8 hours to 500 mg IV every 12 hours). If you need additional information, please reach out to a pharmacist at [phone]. Thank you, Tatiana Garza ilya documented in [facility] Plan of care note * Plan of Care - Kate Benson RN - 06/11/2024 2:52 AM EST Problem: Pain Goal: Patient goal is pain score less than 4, able to rest, and participant in treatment plan as appropriate Description: INTERVENTIONS: 1. Encourage patient or legal senior human resources representative to report early pain and ask [...] per policy 9. Teach patient or legal senior human resources representative interventions for comforting Outcome: Progressing Note: [...] at the bedside 7. Instruct patient/ patient senior human resources representative about use of safety devices 8. Include patient/ patient senior human resources representative in decisions related to safety Outcome: [...] hygiene technique. 7. Identify and instruct patient/patient senior human resources representative in use of appropriate isolation precautionsfor identified infection/symptoms. 8. Provide and discuss with patient/patient senior human resources representative on educational MDRO sheet. 9. Encourage and monitor nutritional status daily and consult senior cyber intelligence analyst if indicated. 10. Implement neutropenic guidelines as needed. Outcome: Progressing Note: Evaluation of progress towards goal: Patient currently on IV antibiotics Problem: Knowledge Deficit Goal: Patient/patient senior human resources representative demonstrates understanding of disease process, treatment [...] Score of =/> 25 or indicated by [facility] Assessment Goal: Patient should be free from fall Description: Interventions: 1. [place] to environment 2. Hourly rounds addressing the [...] non-skid footwear 11. Teach patient and patient senior human resources representative to maintain environment for safety and [...] (cane, walker) within reach 19. Request patient senior human resources representative bring adaptive equipment/mobility aids from home or obtain and provide as needed 20. Consult pharmacy regarding effects of med's affecting mobility, cognition, and alternatives 21. Obtain physician order for PT if risk factors associated with mobility are present 22. Obtain physician order for OT as appropriate 23. Utilize diversional activities 24. Educate patient and patient senior human resources representative how to maintain a safe environment during visitationtimes (notify nurse prior to leaving bedside) 25. Consider appropriateness of medical or non-medical technicians 26. Set up voiding schedule as appropriate [...] as ordered 13. Collaborate with clinical senior cyber intelligence analyst 14. Include patient/ patient's senior human resources representative in decisions related to nutrition Outcome: Completed Note: Evaluation of progress towards goal: Nutritional intake is adequate [place]02-03-2025 Progress note* Discharge Planning Note - MILLIE [...] arise. - MILLIE CALL 06/10/24 11:43 AM [facility] [employer] [id number] Plan of care note* Plan of Care - Georgina Guillaume - 06/10/2024 9:55 AM EST Problem: Pain Goal: Patient goal is pain score less than 4, able to rest, and participant in treatment plan as appropriate Description: INTERVENTIONS: 1. Encourage patient or legal senior human resources representative to report early pain and ask [...] per policy 9. Teach patient or legal senior human resources representative interventions for comforting Outcome: Progressing Note: [...] at the bedside 7. Instruct patient/ patient senior human resources representative about use of safety devices 8. Include patient/ patient senior human resources representative in decisions related to safety Outcome: [...] hygiene technique. 7. Identify and instruct patient/patient senior human resources representative in use of appropriate isolation precautionsfor identified infection/symptoms. 8. Provide and discuss with patient/patient senior human resources representative on educational MDRO sheet. 9. Encourage and monitor nutritional status daily and consult senior cyber intelligence analyst if indicated. 10. Implement neutropenic guidelines as needed. Outcome: Progressing Note: Evaluation of progress towards goal: Patient has remained free from infection during hospitalstay. Patient is afebrile and last WBC was 6.7. Will continue using standard precautions and monitoring for signs and symptoms of infection. Problem: Knowledge Deficit Goal: Patient/patient senior human resources representative demonstrates understanding of disease process, treatment [...] as ordered 13. Collaborate with clinical senior cyber intelligence analyst 14. Include patient/ patient's senior human resources representative in decisions related to nutrition Outcome: Progressing Note: Evaluation of progress towards goal: Patient appears to have adequate nutritional intake. Problem: Moderate - High Risk Fall Score Description: [place] Fall Score of =/> 25 or indicated by [facility] Assessment Goal: Patient should be free from fall Description: Interventions: 1. [place] to environment 2. Hourly rounds addressing the [...] non-skid footwear 11. Teach patient and patient senior human resources representative to maintain environment for safety and [...] (cane, walker) within reach 19. Request patient senior human resources representative bring adaptive equipment/mobility aids from home or obtain and provide as needed 20. Consult pharmacy regarding effects of med's affecting mobility, cognition, and alternatives 21. Obtain physician order for PT if risk factors associated with mobility are present 22. Obtain physician order for OT as appropriate 23. Utilize diversional activities 24. Educate patient and patient senior human resources representative how to maintain a safe environment during visitationtimes (notify nurse prior to leaving bedside) 25. Consider appropriateness of medical or non-medical technicians 26. Set up voiding schedule as appropriate [...] - Rebecca Arredondo RN 06/10/24 11:38 AM [facility] [email or web address] [id number] Nurse Note* Rola Burrell RN - 06/10/2024 [...] it kept coiling and would not advance. [employer] messaged person contract administration manager for urology at 0521. Was not read, no response. Then paged urology at 0630. Waiting for response - Rola Burrell RN 06/10/24 6:37 AM [facility] [email or web address] [id number] Plan of care note* Plan of Care - Rola Burrell RN - 06/10/2024 1:53 AM EST Problem: Pain Goal: Patient goal is pain score less than 4, able to rest, and participant in treatment plan as appropriate Description: INTERVENTIONS: 1. Encourage patient or legal senior human resources representative to report early pain and ask [...] per policy 9. Teach patient or legal senior human resources representative interventions for comforting Outcome: Progressing Note: [...] at the bedside 7. Instruct patient/ patient senior human resources representative about use of safety devices 8. Include patient/ patient senior human resources representative in decisions related to safety Outcome: [...] hygiene technique. 7. Identify and instruct patient/patient senior human resources representative in use of appropriate isolation precautionsfor identified infection/symptoms. 8. Provide and discuss with patient/patient senior human resources representative on educational MDRO sheet. 9. Encourage and monitor nutritional status daily and consult senior cyber intelligence analyst if indicated. 10. Implement neutropenic guidelines as needed. Outcome: Progressing Note: Evaluation of progress towards goal: [employer] assessed pt risk for infection in the beginning and throughout shift. Pt remains afebrile. Will continue to monitor. Problem: Knowledge Deficit Goal: Patient/patient senior human resources representative demonstrates understanding of disease process, treatment plan,medications, and discharge instructions Description: INTERVENTIONS 1. Complete learning assessment and assess knowledge base 2. Provide teaching at level of understanding 3. Provide teaching via preferred learning method(s) Outcome: Progressing Note: Evaluation of progress towards goal: [employer] educated pt on admission disease, medications, treatment, [...] as ordered 13. Collaborate with clinical senior cyber intelligence analyst 14. Include patient/ patient's senior human resources representative in decisions related to nutrition Outcome: [...] Moderate - High Risk Fall Score Description: [place] Fall Score of =/> 25 or indicated by [facility] Assessment Goal: Patient should be free from fall Description: Interventions: 1. [place] to environment 2. Hourly rounds addressing the [...] non-skid footwear 11. Teach patient and patient senior human resources representative to maintain environment for safety and [...] (cane, walker) within reach 19. Request patient senior human resources representative bring adaptive equipment/mobility aids from home or obtain and provide as needed 20. Consult pharmacy regarding effects of med's affecting mobility, cognition, and alternatives 21. Obtain physician order for PT if risk factors associated with mobility are present 22. Obtain physician order for OT as appropriate 23. Utilize diversional activities 24. Educate patient and patient senior human resources representative how to maintain a safe environment during visitationtimes (notify nurse prior to leaving bedside) 25. Consider appropriateness of medical or non-medical technicians 26. Set up voiding schedule as appropriate (every 2 hours) Outcome: Progressing Note: Evaluation of progress towards goal: [employer] assessed pt fall precautions in the beginning [...] mentation waxes and wanes. Neuro assessments Q4hrs. [facility]02-02-[facility] Plan of care note* Plan of Care - Galina Eaton RN - 06/09/2024 6:46 PM EST Problem: Pain Goal: Patient goal is pain score less than 4, able to rest, and participant in treatment plan as appropriate Description: INTERVENTIONS: 1. Encourage patient or legal senior human resources representative to report early pain and ask [...] per policy 9. Teach patient or legal senior human resources representative interventions for comforting Outcome: Progressing Note: [...] at the bedside 7. Instruct patient/ patient senior human resources representative about use of safety devices 8. Include patient/ patient senior human resources representative in decisions related to safety Outcome: [...] hygiene technique. 7. Identify and instruct patient/patient senior human resources representative in use of appropriate isolation precautionsfor identified infection/symptoms. 8. Provide and discuss with patient/patient senior human resources representative on educational MDRO sheet. 9. Encourage and monitor nutritional status daily and consult senior cyber intelligence analyst if indicated. 10. Implement neutropenic guidelines as [...] Score of =/> 25 or indicated by [facility] Assessment Goal: Patient should be free from fall Description: Interventions: 1. [place] to environment 2. Hourly rounds addressing the [...] non-skid footwear 11. Teach patient and patient senior human resources representative to maintain environment for safety and [...] (cane, walker) within reach 19. Request patient senior human resources representative bring adaptive equipment/mobility aids from home or obtain and provide as needed 20. Consult pharmacy regarding effects of med's affecting mobility, cognition, and alternatives 21. Obtain physician order for PT if risk factors associated with mobility are present 22. Obtain physician order for OT as appropriate 23. Utilize diversional activities 24. Educate patient and patient senior human resources representative how to maintain a safe environment during visitationtimes (notify nurse prior to leaving bedside) 25. Consider appropriateness of medical or non-medical technicians 26. Set up voiding schedule as appropriate [...] goal: wax/wane with mentation. Q4 neuros checked [place]02-02-2025 Progress note* PT/OT/LABEL PASTER - JERMAN Jay/Bartolome - 06/09/2024 12:07 PM EST Occupational Therapy Evaluation Discharge Recommendations OT Recommendations : [facility] SNF/ECF Comments: Recommend SNF for continued [...] History: Diagnosis Date Abnormal EKG Atrial fibrillation ([facility]) Back pain Bradycardia Chronic atrial fibrillation ([facility]) Hypertension Hypertensive heart disease without heart failure Hypokalemia Pure hypercholesterolemia Urinary tract infection 01/2019 seen by [facility] No past surgical history on file. [...] mobility guidelines Equipment: Gait belt, RW, arenas Telemetry/Shift Supervisor Rn: Yes Oxygen Used: Room air Other: High [...] Patient will perform bed mobility with Modified [place] Dates: Start: 06/09/24 Expected End: 07/07/24 Description: Goal Description: Disciplines: OT Problem: Cognition Dates: Start: 06/09/24 Disciplines: OT Goal: Patient's goal is: (specify details) Dates: Start: 06/09/24 Expected End: 07/07/24 Description: Pt will demonstrate good safety awareness 100% of the time Disciplines: OT Problem: Functional Mobility Dates: Start: 06/09/24 Disciplines: OT Goal: Patient will perform functional mobility with Modified [place] Dates: Start: 06/09/24 Expected End: 07/07/24 Description: [...] Goal: Patient will perform transfers with Modified [place] Dates: Start: 06/09/24 Expected End: 07/07/24 Description: Goal Description: Disciplines: OT Occupational Therapy Care Plan (Resolved) There are no resolved problems. Principal Problem: Acute encephalopathy [facility]02-02-20[facility] Progress note* PT/OT/LABEL PASTER - Sadie Sim PT - 06/09/2024 11:21 AM EST Physical Therapy Evaluation Discharge Recommendations PT Recommendations: Retirement Facility SNF/ECF Comments: pt will need SNF [...] status decline resulting from admission 06/07/24 from [facility] where he went with afib with RVR and altered mentalstatus. MRI brain without acute findings but chronic infarct post R frontal lobe. Neuro stroke consulted and recommended transfer to [facility]. Diagnosed with acute encphalopathy, afib with [...] History: Diagnosis Date Abnormal EKG Atrial fibrillation ([facility]) Back pain Bradycardia Chronic atrial fibrillation ([facility]) Hypertension Hypertensive heart disease without heart failure Hypokalemia Pure hypercholesterolemia Urinary tract infection 01/2019 seen by [facility] No past surgical history on file. [...] to see Equipment: RW, gait belt, catheter Telemetry/Shift Supervisor Rn: Yes Oxygen Used: room air Other: pt [...] Patient will perform bed mobility with Modified [place] Dates: Start: 06/09/24 Expected End: 06/23/24 Description: Goal Description: Disciplines: PT Problem: Gait Dates: Start: 06/09/24 Disciplines: PT Goal: Patient will perform gait with Modified [place] Dates: Start: 06/09/24 Expected End: 06/23/24 Description: [...] Goal: Patient will perform transfers with Modified [place] Dates: Start: 06/09/24 Expected End: 06/23/24 Description: Goal Description: Disciplines: PT Physical Therapy Care Plan (Resolved) There are no resolved problems. Principal Problem: Acute encephalopathy [employer] [id number] Progress note* Query Response - Vira Abreu, DIRECTOR [employer] KEEPER - 06/09/2024 9:09 AM EST Query Response [...] signed by: Vira SILVESTRE 06/09/2024 9:07 AM [employer] Work Phone: [phone]) 284-197602-01-2025 Consult note* Will Renee, NIRMALA - 06/08/2024 7:43 PM ESTAssociated Order(s): IP CONSULT TO NEUROSURGERY Images from the original note were not included. [facility] [address] [place] [address], [address] [place] [address] * NEUROSURGERY CONSULT NOTE DATE:06/08/2024 PATIENT'S NAME: Johnathan Rodney PATIENT'S PATIENT'S : 1955 NEUROSURGERY ATTENDING: Cherise REASON FOR CONSULT Bilateral subdural fluid collections HISTORY OF PRESENT ILLNESS Johnathan Rodney is a 68 y.o. male who presented originally to [facility] on 06/07 for altered mental status [...] Aureliano Garduno DO, Stopped at 06/08/24 1017 timljvkq-ennm-EI-calcium &mins (THERAGRAN-M) 9 mg iron-400 mcg tablet [...] - Neurosurgery will continue to follow NABILA [facility] Please contact via [employer] first then can utilize Patient touch/[employer]oceraEdge if needed 06/08/24 8:03 PM To find out which JAK is on for the day please go to [employer] and use log in [employer] and search for PTH Neurosurgery (JAK and Phone Number is listed) - NIRMALA BEEBE 06/08/24 7:44 PM NIRMALA Beebe 06/08/242003 [facility] [email or web address] [id number] Consult note* NIRMALA Beebe - 06/08/2024 7:43 PM ESTAssociated Order(s): IP CONSULT TO NEUROSURGERY Images from the original note were not included. [facility] [address] [place] [address], [address] [place] [address] * NEUROSURGERY CONSULT NOTE DATE:06/08/2024 PATIENT'S NAME: Johnathan Rodney PATIENT'S PATIENT'S : 1955 NEUROSURGERY ATTENDING: Cherise REASON FOR CONSULT Bilateral subdural fluid collections HISTORY OF PRESENT ILLNESS Johnathan Rodney is a 68 y.o. male who presented originally to [facility] on 06/07 for altered mental status [...] Aureliano Garduno DO, Stopped at 06/08/24 1017 debqghqz-iywg-NR-calcium &mins (THERAGRAN-M) 9 mg iron-400 mcg tablet [...] hypercholesterolemia Urinary tract infection 01/2019 seen by [facility] No past surgical history on file. [...] [facility] Please contact via [employer] first then can utilize Patient touch/[employer] if needed 06/08/24 8:03 PM To find out which JAK is on for the day please go to [employer] and use log in [employer] and search for PTH Neurosurgery (JAK and Phone Number is listed) - WILL RENEE APRN-GOLF COURSE KEEPER 06/08/24 7:44 PM NIRMALA Beebe 06/08/242003 * KRYSTYNA Mendoza - 06/07/2024 8:59 AM ESTAssociated Order(s): IP CONSULT TO UROLOGY Images from the original note were not included. Urology Consultation Patient: Johnathan Rodney Date of : 1955 CHIEF COMPLAINT: right hydronephrosis HISTORY OF PRESENT ILLNESS: The patient is a 68 y.o. male who presents as a transfer in from [facility]. Paper records available in hard chart. [...] any abdominal pain, no LUTS. According to [facility] records, the family says he reportedly had some abdominal pain when he came in. Denies ever seeing a urologist, no hx of nephrolithiasis in the past. Patient's old records, notes and chart reviewed and summarized above. Past Medical History: Past Medical History: Diagnosis Date Abnormal EKG Atrial fibrillation ([facility]) Back pain Bradycardia Chronic atrial fibrillation ([facility]) Hypertension Hypertensive heart disease without heart failure Hypokalemia Pure hypercholesterolemia Urinary tract infection 01/2019 seen by [facility] Past Surgical History: No past surgical [...] LORazepam OR LORazepam magnesium sulfate magnesium sulfate jsfvggfa-jlsw-TH-calcium &mins potassium chloride OR potassium chloride OR [...] AM ESTAssociated Order(s): IP CONSULT TO GASTROENTEROLOGY [facility] Initial Gastroenterology/Hepatology Consultation Note IDENTIFYING DATA [...] with encephalopathy after presenting to [facility] with altered mental status and hallucinations. [...] hypercholesterolemia Urinary tract infection 01/2019 seen by [facility] No past surgical history on file. [...] Katie Laureen, DO, Stopped at 06/07/24 0733 ncjfyelo-knad-ZQ-calcium &mins (THERAGRAN-M) 9 mg iron-400 mcg tablet [...] mg, PRN magnesium sulfate, 4,000 mg, PRN egifkqjc-xtwj-OO-calcium &mins, 1 tablet, Daily PRN potassium chloride, [...] at hospital but thinks he is stillin [facility], NAD HEENT: Normocephlic, Atraumatic, No sclera icterus [...] - 5 /hpf IMAGING: Abdominal US at [facility] on 06/06/2024- showed normal liver ASSESSMENT AND PLAN Johnathan Rodney is a 68 y.o. male with a PMH of AFib on Eliquis, HTN, CKD, chronic systolic HF, heavy alcohol use, marijuana use admitted with encephalopathy after presenting to [facility] with altered mental status and hallucinations. Reported [...] the care of Johnathan Rodney. [facility]A [facility] [place] [id number] PH: [phone] NIRMALA Jara 06/07/24 1316 NIRMALA Jara 06/07/24 1316 Attending Attestation: Level of Participation Examined and discussed the patient with JAK Agreement I agree with the JAK's management. Attending Note I reviewed the JAK'sdocumentation and agree with the findings, assessment and plan Richardson Brandt D.O. [facility] [address] [address] PH: [phone] * Demetria Keller DO - 06/07/2024 8:12 [...] and marijuana use who was transferred to [facility] from [facility] for encephalopathy with questionable hallucination, and [...] History: Diagnosis Date Abnormal EKG Atrial fibrillation ([facility]) Back pain Bradycardia Chronic atrial fibrillation ([facility]) Hypertension Hypertensive heart disease without heart failure Hypokalemia Pure hypercholesterolemia Urinary tract infection 01/2019 seen by [facility] No past surgical history on file. [...] M Laureen, DO, Stopped at 06/07/24 0733 dhtedbih-weey-GH-calcium &mins (THERAGRAN-M) 9 mg iron-400 mcg tablet [...] and marijuana use who was transferred to [facility] from [facility] with AMS and hyperbilirubinemia. [...] 8:12 AM General Surgery C 6a-6p pager #[phone] 6p-6a pager #[phone] Cosigned by Nicolas Wells MD at 06/07/2024 [...] General Surgery and Minimally Invasive Surgery [address], [address] [place] [address] Office: * Marii Potter MD - 06/07/2024 5:36 AM ESTAssociated Order(s): IP CONSULT TO NEUROLOGY Images from the original note were not included. [facility] Neurology General Neurology Consultation Note Consult Neurology Service: [phone] Primary Team: [facility] Chief Complaint and Reason for Consultation: [...] occult infection. Patient was then transferred to [facility] for further evaluation. On initial [...] disease without heart failure Chronic atrial fibrillation ([facility]) Abnormal EKG Bradycardia Syncope 09/15/2017 Resolved Ambulatory Problems Diagnosis Date Noted Hypertension Past Medical History: Diagnosis Date Atrial fibrillation ([facility]) Back pain Urinary tract infection 01/2019 [...] pathological reflexes: Ankle clonus absent. Coordination Right: Hvwbhy-qh-ahvf normal.Left: Fnmkky-im-wnip normal. Gait Deferred. Objective Pertinent Labs: No results found for this or any previous visit (from the past 72 hours). Imaging: No results found. Other Testing: PROBLEM LIST: Patient Active Problem List Diagnosis Pure hypercholesterolemia Hypokalemia Hypertensive heart disease without heart failure Chronic atrial fibrillation ([facility]) Abnormal EKG Bradycardia Syncope Acute encephalopathy Assessment: [...] Signed by Marii Potter MD Neurology Resident, [facility] Please contact via secure chat Staffed with: Dr. Marie This patient is being followed by the Neurology Resident service. Contact attending directly during these hours: Monday to 7:30-8:30 A.M. to Monday 12-1:00 p.m. Primary Neurology service: [phone] Consult neurology service: [phone] Resident Stroke Service: [phone] If the patient belongs to the Stroke [...] for: EAG Lab Results Component Value Date [id number] >1,500 (H) 06/07/2024 Neurological work up: CT [...] extrapolated by contextual derivation. documented in this encounterWashington County [facility] HospitalSense Platform02-01-2025 Miscellaneous Notes* Telephone Encounter - NIRMALA Kuhn - 06/08/2024 3:31 PM EST Please arrange for outpatient follow-up for a FibroScan. We are asked to see the patient in the hospital for evaluation of possible cirrhosis. * Telephone Encounter - Sana Palmer RN - 06/08/2024 3:31 PM EST Patient currently admitted. documented in this encounterWashington County Tuberculosis HospitalSense Platform02-01-2025 Telephone encounter Note* Telephone Encounter - NIRMALA Kuhn - 06/08/2024 3:31 PM EST Please arrange for outpatient follow-up for a FibroScan. We are asked to see the patient in the hospital for evaluation of possible cirrhosis. [facility] Work Phone: 1(783) 350-568402-01-2025 Telephone encounter Note* Telephone Encounter - Sana Palmer RN - 06/08/2024 3:31 PM EST Patient currently admitted. [facility] Plan of care note* Plan of Care [...] at the bedside 7. Instruct patient/ patient senior human resources representative about use of safety devices 8. Include patient/ patient senior human resources representative in decisions related to safety Outcome: Progressing Note: Evaluation of progress towards goal: Patient free from injury, will continue to provide a clean environment, personal objects in reach, and a well light room Problem: Knowledge Deficit Goal: Patient/patient senior human resources representative demonstrates understanding of disease process, treatment [...] Score of =/> 25 or indicated by [facility] Assessment Goal: Patient should be free from fall Description: Interventions: 1. [place] to environment 2. Hourly rounds addressing the [...] non-skid footwear 11. Teach patient and patient senior human resources representative to maintain environment for safety and [...] (cane, walker) within reach 19. Request patient senior human resources representative bring adaptive equipment/mobility aids from home or obtain and provide as needed 20. Consult pharmacy regarding effects of med's affecting mobility, cognition, and alternatives 21. Obtain physician order for PT if risk factors associated with mobility are present 22. Obtain physician order for OT as appropriate 23. Utilize diversional activities 24. Educate patient and patient senior human resources representative how to maintain a safe environment during visitationtimes (notify nurse prior to leaving bedside) 25. Consider appropriateness of medical or non-medical technicians 26. Set up voiding schedule as appropriate (every 2 hours) Outcome: Progressing Note: Evaluation of progress towards goal: Patient free from injury, will continue to provide a clean environment, personal objects in reach, and a well light room [facility]02-01-2025 Progress note* PT/OT/LABEL PASTER - Will Doyle PT - 06/08/2024 11:04 AM EST Physical Therapy PT Type of Visit: Medical deferral Reason For Medical Deferral: Medical procedure ongoing, RN deems inappropriate, Imaging results pending (pt had fall last night and is leaving for stat CT on attempt at eval. will hold at this time) [facility]01-31-2025 Nurse Note* Meaghan Lam RN - 06/07/2024 [...] At 2119 RN called Vito BENEDICTRLucas with [facility] Team G as primary care team. Stat head CT ordered. Neuro assessment and vitals completed per RN. No neuro changes. Patient still A&O X 4, just slow to say the complete year correctly. Primary updated on assessment and Kiki MANCUSO took patient to CT. - Meaghan Lam RN 06/07/24 9:49 PM [facility]01-31-2025 Plan of care note* Plan of Care - Meaghan Lam RN - 06/07/2024 9:00 PM EST Problem: Pain Goal: Patient goal is pain score less than 4, able to rest, and participant in treatment plan as appropriate Description: INTERVENTIONS: 1. Encourage patient or legal senior human resources representative to report early pain and ask [...] per policy 9. Teach patient or legal senior human resources representative interventions for comforting Outcome: Progressing Note: [...] at the bedside 7. Instruct patient/ patient senior human resources representative about use of safety devices 8. Include patient/ patient senior human resources representative in decisions related to safety Outcome: [...] hygiene technique. 7. Identify and instruct patient/patient senior human resources representative in use of appropriate isolation precautionsfor identified infection/symptoms. 8. Provide and discuss with patient/patient senior human resources representative on educational MDRO sheet. 9. Encourage and monitor nutritional status daily and consult senior cyber intelligence analyst if indicated. 10. Implement neutropenic guidelines as needed. Outcome: Progressing Note: Evaluation of progress towards goal: Patient has remained afebrile. WBC and vital signs monitored. Patient has not shown any additional signs of infection at this time. Problem: Knowledge Deficit Goal: Patient/patient senior human resources representative demonstrates understanding of disease process, treatment [...] be free from fall Description: Interventions: 1. [place] to environment 2. Hourly rounds addressing the [...] non-skid footwear 11. Teach patient and patient senior human resources representative to maintain environment for safety and [...] (cane, walker) within reach 19. Request patient senior human resources representative bring adaptive equipment/mobility aids from home or obtain and provide as needed 20. Consult pharmacy regarding effects of med's affecting mobility, cognition, and alternatives 21. Obtain physician order for PT if risk factors associated with mobility are present 22. Obtain physician order for OT as appropriate 23. Utilize diversional activities 24. Educate patient and patient senior human resources representative how to maintain a safe environment during visitationtimes (notify nurse prior to leaving bedside) 25. Consider appropriateness of medical or non-medical technicians 26. Set up voiding schedule as appropriate [...] about disease process, medications, and treatment plan. [employer] to update patient throughout the shift regarding plan of care. [facility] [id number] Plan of care note* Plan of Care [...] at the bedside 7. Instruct patient/ patient senior human resources representative about use of safety devices 8. Include patient/ patient senior human resources representative in decisions related to safety Outcome: Progressing Note: Evaluation of progress towards goal: Patient free from injury, will continue to provide a clean environment, personal objects in reach, and a well light room Problem: Knowledge Deficit Goal: Patient/patient senior human resources representative demonstrates understanding of disease process, treatment [...] Score of =/> 25 or indicated by [facility] Assessment Goal: Patient should be free from fall Description: Interventions: 1. [place] to environment 2. Hourly rounds addressing the [...] non-skid footwear 11. Teach patient and patient senior human resources representative to maintain environment for safety and [...] (cane, walker) within reach 19. Request patient senior human resources representative bring adaptive equipment/mobility aids from home or obtain and provide as needed 20. Consult pharmacy regarding effects of med's affecting mobility, cognition, and alternatives 21. Obtain physician order for PT if risk factors associated with mobility are present 22. Obtain physician order for OT as appropriate 23. Utilize diversional activities 24. Educate patient and patient senior human resources representative how to maintain a safe environment during visitationtimes (notify nurse prior to leaving bedside) 25. Consider appropriateness of medical or non-medical technicians 26. Set up voiding schedule as appropriate [...] patient is alert to self and location. 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 [facility] [email or web address] [id number] Consult note* KRYSTYNA Mendoza - 06/07/2024 8:59 AM ESTAssociated Order(s): IP CONSULT TO UROLOGY Images from the original note were not included. Urology Consultation Patient: Johnathan Rodney Date of : 1955 CHIEF COMPLAINT: right hydronephrosis HISTORY OF PRESENT ILLNESS: The patient is a 68 y.o. male who presents as a transfer in from [facility]. Paper records available in hard chart. [...] any abdominal pain, no LUTS. According to [facility] records, the family says he reportedly had [...] hypercholesterolemia Urinary tract infection 01/2019 seen by [facility] Past Surgical History: No past surgical [...] LORazepam OR LORazepam magnesium sulfate magnesium sulfate jlgtzozc-cnhs-ET-calcium &mins potassium chloride OR potassium chloride OR [...] Information Photos/Images Abd U/s report impression from [facility] 06/07/2024 08:12 Attached To: Hospital Encounter on [...] Jin MD at 06/10/2024 2:41 PM EST [facility] [email or web address] Work Phone: 1(658) 719-678101-31-2025 Consult note* Richardson Brandt - 06/07/2024 8:44 AM ESTAssociated Order(s): IP CONSULT TO GASTROENTEROLOGY [facility] Initial Gastroenterology/Hepatology Consultation [...] with encephalopathy after presenting to [facility] with altered mental status and hallucinations. [...] hypercholesterolemia Urinary tract infection 01/2019 seen by [facility] No past surgical history on file. [...] M Laureen, DO, Stopped at 06/07/24 0733 tgdtslfq-hljf-NS-calcium &mins (THERAGRAN-M) 9 mg iron-400 mcg tablet [...] mg, PRN magnesium sulfate, 4,000 mg, PRN jsfyxbzz-noha-CX-calcium &mins, 1 tablet, Daily PRN potassium chloride, [...] - 5 /hpf IMAGING: Abdominal US at [facility] on 06/06/2024- showed normal liver ASSESSMENT AND PLAN Johnathan Rodney is a 68 y.o. male with a PMH of AFib on Eliquis, HTN, CKD, chronic systolic HF, heavy alcohol use, marijuana use admitted with encephalopathy after presenting to [facility] with altered mental status and hallucinations. [...] the care of Johnathan Rodney. NIRMALA Smith [facility] [place] [id number] PH: [phone] NIRMALA Jara 06/07/24 1316 NIRMALA Jara 06/07/24 1316 Attending Attestation: Level of Participation Examined and discussed the patient with JAK Agreement I agree with the JAK's management. Attending Note I reviewed the JAK'sdocumentation and agree with the findings, assessment and plan Richardson Brandt D.O. [facility] [address] [address] PH: [phone] [employer] Work Phone: 1([phone]) 833-242401-31-2025 Consult note* Demetria Keller DO - 06/07/2024 [...] and marijuana use who was transferred to [facility] from [facility] for encephalopathy with questionable hallucination, and [...] History: Diagnosis Date Abnormal EKG Atrial fibrillation ([facility]) Back pain Bradycardia Chronic atrial fibrillation ([facility]) Hypertension Hypertensive heart disease without heart failure Hypokalemia Pure hypercholesterolemia Urinary tract infection 01/2019 seen by [facility] No past surgical history on file. [...] M Laureen, DO, Stopped at 06/07/24 0733 wraambhg-grxp-MH-calcium &mins (THERAGRAN-M) 9 mg iron-400 mcg tablet [...] and marijuana use who was transferred to [facility] from [facility] with AMS and hyperbilirubinemia. [...] 8:12 AM General Surgery C 6a-6p pager #[phone] 6p-6a pager #[phone] Cosigned by Nicolas Wells MD at 06/07/2024 [...] etiology. Doubt gallbladder etiology. Nicolas Wells MD, [facility] General Surgery and Minimally Invasive Surgery [address] [place] [address], [address] [place] [address] Office: [facility]01-31-2025 History and physical note* Aureliano Garduno DO - 06/07/2024 6:00 AM EST Images from the original note were not included. [facility] Hospital[facility] History & Physical Examination H&P Department of Internal Medicine 06/07/2024 Patient Name: Johnathan Rodney : 1955 No chief complaint on file. HPI Johnathan Rodney is a 68 y.o. male medical history significant for atrial fibrillation, hypertension, chronic systolic heart failure, history of alcohol use disorder, who presented to [facility] for evaluation of altered mentation. Patient [...] was consulted and they recommended transfer to [facility] for evaluation with potential lumbar puncture. Per chart family was concerned about abdominal discomfort the patient was complaining about prior to hospitalization. Past Medical History: Diagnosis Date Abnormal EKG Atrial fibrillation ([facility]) Back pain Bradycardia Chronic atrial fibrillation ([facility]) Hypertension Hypertensive heart disease without heart failure [...] (THREE) TIMES A DAY.02/04/21 Yes Crow Andino APRN-GOLF COURSE KEEPER labetaloL (NORMODYNE) 200 mg tablet Take 2 [...] MOUTH EVERY DAY 09/16/21 Yes Vanessa Louie APRN-GOLF COURSE KEEPER reports that he has quit smoking. He [...] has been identified and corrected by editing. [facility] Work Phone: 1([phone]) 276-810601-31-2025 History and physical note* Aureliano Garduno DO - 06/07/2024 6:00 AM EST Images from the original note were not included. [facility] Hospital[facility] History & Physical Examination H&P Department of Internal Medicine 06/07/2024 Patient Name: Johnathan Rodney : 1955 No chief complaint on file. HPI Johnathan Rodney is a 68 y.o. male medical history significant for atrial fibrillation, hypertension, chronic systolic heart failure, history of alcohol use disorder, who presented to [facility] for evaluation of altered mentation. Patient [...] was consulted and they recommended transfer to [facility] for evaluation with potential lumbar puncture. Per chart family was concerned about abdominal discomfort the patient was complaining about prior to hospitalization. Past Medical History: Diagnosis Date Abnormal EKG Atrial fibrillation ([facility]) Back pain Bradycardia Chronic atrial fibrillation ([facility]-H[facility]) Hypertension Hypertensive heart disease without heart failure Hypokalemia Pure hypercholesterolemia Urinary tract infection 01/2019 seen by [facility] No past surgical history on file. [...] MOUTH EVERY DAY 09/16/21 Yes Vanessa Louie APRN-GOLF COURSE KEEPER reports that he has quit smoking. He [...] Acute urinary retention 8. Alcohol use disorder [facility] protocol with p.r.n. Ativan, daily multivitamin [...] and corrected by editing. documented in this [facility]01-31-2025 Consult note* Marii Potter MD - 06/07/2024 5:36 AM ESTAssociated Order(s): IP CONSULT TO NEUROLOGY Images from the original note were not included. [facility] Neurology General Neurology Consultation Note Consult Neurology Service: [phone] Primary Team: [facility] Chief Complaint and Reason for Consultation: [...] occult infection. Patient was then transferred to [facility] for further evaluation. On initial [...] disease without heart failure Chronic atrial fibrillation ([facility]) Abnormal EKG Bradycardia Syncope 09/15/2017 Resolved Ambulatory Problems Diagnosis Date Noted Hypertension Past Medical History: Diagnosis Date Atrial fibrillation ([facility]) Back pain Urinary tract infection 01/2019 Family [...] mL, 3 mL, intravenous, PRN, Aureliano Katie gNLaureen, DO sodium chloride 0.9 % flush 3 [...] pathological reflexes: Ankle clonus absent. Coordination Right: Skqhkb-fb-wlnj normal.Left: Rulaxe-sy-bbci normal. Gait Deferred. Objective Pertinent Labs: No results found for this or any previous visit (from the past 72 hours). Imaging: No results found. Other Testing: PROBLEM LIST: Patient Active Problem List Diagnosis Pure hypercholesterolemia Hypokalemia Hypertensive heart disease without heart failure Chronic atrial fibrillation ([facility]) Abnormal EKG Bradycardia Syncope Acute encephalopathy Assessment: [...] Signed by Marii Potter MD Neurology Resident, [facility] Please contact via secure chat Staffed with: Dr. Marie This patient is being followed by the Neurology Resident service. Contact attending directly during these hours: Monday to 7:30-8:30 A.M. to Monday 12-1:00 p.m. Primary Neurology service: [phone] Consult neurology service: [phone] Resident Stroke Service: [phone] If the patient belongs to the Stroke [...] for: EAG Lab Results Component Value Date [id number] >1,500 (H) 06/07/2024 Neurological work up: CT [...] meaning can be extrapolated by contextual derivation. [facility] Work Phone: Evaluation + Plan note No data available for this section [facility] evaluation + Plan note Future Appointments Appointment Date:11/01/2024 10:30:00 AM Scheduled Provider: Location:[facility] Appointment Type:Urology CALL PAT FT Appointment Date:11/04/2024 02:45:00 PM Scheduled Provider: Location:[facility] Appointment Type:Urology FT [facility] evaluation + Plan note Future Appointments Appointment Date:03/05/2025 11:00:00 AM Scheduled Provider:DONAL MCGARRY MD Location:[facility] Appointment Type:URO Office Visit [facility] Evaluation note* Diagnosis Acute encephalopathy- Primary documented in this encounter [facility] noteNo assessment information available [facility] Work Phone: Hospital Discharge instructionsNot on filedocumented in this encounterKettering Health [facility] TownshipHospital Discharge instructions No data available for this section [facility] InstructionsNot on filedocumented in this encounter [facility] [email or web address] SystemProgress note No data available for this section [facility] reason for referral (narrative)* Misc (Routine) - Pending ReviewSpecialtyDiagnoses / ProceduresReferred By ContactReferred To Contact Procedures Adult diet Tabatha León MD [address] [place] [phone] Phone: tel: fax: Referral IDStatusReasonStart DateExpiration DateVisits RequestedVisits [id number] Review/ [facility] TownshipReason for referral (narrative)No reason for referral information availableRiverview Health Institute Ctr Work Phone: Reason for visit Narrative* Auth/CertSpecialty Diagnoses / ProceduresReferred By ContactReferred To Contact Diagnoses Acute Encephalopathy [address] [address] Referral IDStatusReasonStart DateExpiration DateVisits RequestedVisits [id number] [facility] Summary Purpose Family History [...] section and content) DATE CREATED AUTHOR 12/19/2018 [facility] DATE CREATED AUTHOR AUTHOR'S ORGANIZ ATION 12/07/2023 [facility] EPIC DATE CREATED AUTHOR AUTHOR'S ORGANIZ ATION 06/12/2024 [facility] DATE CREATED AUTHOR AUTHOR'S ORGANIZ ATION 06/14/2024 [facility] DATE CREATED AUTHOR AUTHOR'S ORGANIZ ATION 12/01/2024 [facility] DATE CREATED AUTHOR AUTHOR'S ORGANIZ ATION 03/07/2025 [facility] Care Teams (unrecognized sec tion and content) Team MemberRelationshipSpecialtyStart DateEnd Date Shaikh Juarez MD PCP - GeneralInternal Medicine05/24/23Team MemberRelationshipSpecialtyStart Date End Date [facility] [address] [place], [place] PCP - Generalmily Medicine01/01/17Team MemberRelationshipSpecialtyStart DateEnd Date [facility] [address] [place], [place] PCP - [facility]01/01/17 Team Status: Inactive Member Role Status Dates Ramon Sutherland MD Attending Provider Active Sta rt: November 20, 2024 End: November 20, 2024Team MemberRelationshipSpecialtyStart DateEnd Date Shaikh Juarez MD PCP - GeneralInternal Medicine Jaleel Chacon MD PCP - GeneralFamily Medicine12/06/23 Skylar Gustafson NP Nurse PractitionerRegional Health Services Of Howard Countyly Medicine12/06/23 Scheduled Active and Recently Administ ered [...] 1400, Hold if blood pressure is greater olrk616 mmHg Look-alike/sound-alike medication - verify indication for [...] or chew. * 2028 (Given - Provider: Kaet Bensno RN) * 2057 (Given - Provider: Kate Benson RN) * 2199 (Due) thiamine HCl (VITAMIN B-1) tablet 100 mg 100 mg, oral, Daily, First dose on Mon06/07/24 at 0630, Look-alike/sound-alike medication - verify indication for use. * 0837 (Given - Provider: Rebecca Arredondo RN) * 0858 (Given - Provider: Shazia Haynes, RN) * 0918 (Given - Provider: Shazia Haynes, JAMEE) Medication Order//[id number]///09/2024 acetaminophen (TYLENOL) tablet 650 mg 650 mg, [...] medication - verify indication for use. * 4092 (Given - Provider: Shazia Haynes RN) nedcfyjk-mfhn-TA-calcium &mins (THERAGRAN-M) 9 mg iron-400 mcg tablet [...] mEq. Do not crush or chew. * 6468 (Given - Provider: Shazia Haynes RN) potassium [...] BE BASED ON THE PRIMARY CLINICAL RECORDS. [facility] [address] [facility]. provides no warranty or guarantee of the accuracy or completeness of information in this document.
--- NOTE | 2025-04-17 18:27 | PM.IMHP1 ---
Internal Medicine - H&P: HPI History of Present Illness Chief complaint: COVID+ SYMPTOMATIC ANEMIA HEART FAILURE Narrative: This is a 69-year-old male with past medical history of systolic 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 History obtained from the patient, ED staff, chart review. Patient states that he was here less than a week ago for extensive hospitalization fluting A-fib with RVR with anemia as well as heart failure exacerbation. Patient states that over the last few days he has been having dry cough however this morning woke up very tired and did not feel like doing anything. He states that his weakness is 6 severe enough that he could not leave the bed. He also did not have any appetite. He denies any nausea or vomiting or chest pain or fever or chills or change in urinary or bowel habits. He denies any dizziness or syncope. In the ED, patient was in A-fib with RVR between 100 and 130. His blood pressure was elevated. He was satting 100% on room air he was afebrile. His CBC in the ED included a hemoglobin of 8.6 which is very stable compared to his previous previous labs. His white blood cell count and platelet count were normal. His chemistry showed BUN of 22 creatinine 1.46 improved compared to her previous hospitalization as well. Electrolytes were normal. His proBNP was 15,762, however it was 17,639 when he was discharged on 04/06/2025. Patient did not show any signs of fluid overload on my exam. His chest x-ray was read as fluid overload however it is similar to his last x-ray when he was here. His EKG on presentation in the ED showed A-fib with controlled ventricular response. And right bundle branch block QTc of 447 ms. he was found to have COVID-positive. Patient to be admitted under hospital service for further workup and management Review of Systems ROS Status of ROS 10 or more systems reviewed and unremarkable except as noted in history and below [facility] Medical History (Updated 04/17/25 @ 15:55 by KRYSTYNA Bloom) Confusion ?R41.0 - Disorientation, unspecified (ICD-10) Atrial fibrillation with RVR ?I48.91 - Unspecified atrial fibrillation (ICD-10) Atrial fibrillation with rapid ventricular response ?I48.91 - Unspecified atrial fibrillation (ICD-10) Edema, peripheral ?R60.0 - Localized edema (ICD-10) CHF (congestive heart failure) ?I50.9 - Heart failure, unspecified (ICD-10) Atrial fibrillation ?I48.91 - Unspecified atrial fibrillation (ICD-10) Hypertension ?I10 - Essential (primary) hypertension (ICD-10) Family History (Updated 04/07/25 @ 17:39 by Lottie Bales RN) Father Family history of stroke Sister Family history of cancer Social History Smoking status: Never smoker Highest level of school completed/degree received: 9th grade Little interest or pleasure in doing things: not at all Feeling down, depressed, or hopeless: not at all Do you think of yourself as: straight/heterosexual Gender Identity: male Meds Home Medications and Allergies Home Medications ?Medication ?Instructions ?Recorded ?Confirmed ?Type apixaban 5 mg tablet (Eliquis) 5 mg PO BID 04/06/25 04/17/25 History atorvastatin 40 mg tablet 40 mg PO DAILY 04/06/25 04/17/25 History carvedilol 12.5 mg tablet 25 mg PO BID 04/06/25 04/17/25 History folic acid 1 mg tablet 1 mg PO DAILY 04/06/25 04/17/25 History furosemide 40 mg tablet 40 mg PO DAILY 04/06/25 04/17/25 History lactulose 10 gram/15 mL oral 15 ml PO DAILY 04/06/25 04/17/25 History solution tamsulosin 0.4 mg capsule 0.4 mg PO DAILY 04/06/25 04/17/25 History thiamine HCl (vitamin B1) 100 mg 100 mg PO DAILY 04/06/25 04/17/25 History tablet (Vitamin B-1) doxycycline hyclate 100 mg tablet 100 mg PO BID 7 days #14 tabs 04/09/25 04/17/25 Rx ferrous sulfate 325 mg (65 mg 325 mg PO BID #60 tabs 04/09/25 04/17/25 Rx iron) tablet losartan 25 mg tablet 25 mg PO QD #60 tabs 04/09/25 04/17/25 Rx pantoprazole 40 mg tablet,delayed 40 mg PO DAILY #30 tabs 04/09/25 04/17/25 Rx release potassium chloride 10 mEq 10 meq PO DAILY #0 caps 04/09/25 04/17/25 Rx capsule,extended release Allergies Allergy/AdvReac Type Severity Reaction Status Date / Time No Known Drug Allergies Allergy Verified 03/26/23 04:32 Exam Narrative Exam Narrative: [pt is awake and alert. oriented to place, time and person, ill-appearing but not in acute distress. Very pleasant cooperative on my HEENT: [place] conjunctiva and NL buccal mucosa Neck: Supple, no tenderness, no JVD, no lymphadenopathy, no thyromegaly Head: Atraumatic normocephalic Chest: CTA no DTP, no wheezes no crackles. Patient saturating 100% on room air. He is not in any respiratory distress Heart: Irregular heart rhythm with tachycardia, normal S1 and S2 no murmurs Abd: Soft, no tenderness, no rebound and no rigidity. No signs of acute abdomen. No organomegaly LE: No lower extremity edema, intact peripheral pulses bilateral Neuro: A A O. Nl speech, comprehension and attention. Nl and symetrical motor and tone examination through out Constitutional Vital Signs, click to edit/add: Last Vital Signs Temp 98.4 F 04/17/25 17:31 Pulse 133 H 04/17/25 18:19 Resp 18 04/17/25 17:34 BP 172/115 H 04/17/25 17:34 Pulse Ox 100 04/17/25 14:13 O2 Del Method Room Air 04/17/25 14:13 Internal Medicine - H&P: Reslt Labs Labs: Short CBC 04/17/25 Range/Units 14:47 WBC 5.2 (4.0-11.0) 10^3/uL Hgb 8.6 L (14.0-18.0) g/dL Hct 30.1 L (42.0-54.0) % Plt Count 192 (150-450) 10^3/uL BMP 04/17/25 14:47 Sodium 140 Potassium 4.0 Chloride 108 H Carbon Dioxide 22.1 BUN 22.0 H Creatinine 1.46 H Glucose 100 Calcium 8.7 Cardiac Enzymes 04/17/25 Range/Units 14:47 Total Creatine Kinase 61 (39-308) U/L CK-MB (CK-2) 2.35 (<=3.60) ng/mL Liver Function 04/17/25 Range/Units 14:47 Total Bilirubin 0.7 (0.2-1.0) mg/dL AST 24 (15-37) U/L ALT 30 (16-63) U/L Alkaline Phosphatase 111 (46-116) U/L Albumin 3.0 L (3.4-5.0) g/dL Urine 04/17/25 Range/Units 16:26 Urine Color Yellow (YELLOW) Urine Clarity Clear (CLEAR) Urine pH 6.0 (5.0-9.0) Ur Specific [place] 1.025 (1.005-1.025) Urine Protein 30 A (NEG/TRACE) mg/dL Urine Glucose (UA) Negative (NEGATIVE) mg/dL Assessment and Plan Assessment and Plan (1) COVID-19 virus infection: (2) Heart failure with reduced ejection fraction, NYHA class III: (3) Atrial fibrillation with RVR: Plan Generalized weakness in the setting of viral illness COVID-19 Component of A-fib with RVR contributing to his weakness? Patient is not in any acute exacerbation of his known systolic and diastolic CHF NYHA class III, stage C Debility, functional decline, assess for need for higher level of care? UTI - Admit patient to medical floor with telemetry - Give the patient his p.o. dose of carvedilol, if not controlled we will start him on Cardizem drip for his A-fib with RVR - Otherwise continue with his Eliquis - Start remdesivir, consulted pharmacy to help with dosing of the medication his CKD - Patient is not hypoxic and is not on any oxygen so he does not qualify for dexamethasone - I did reconcile his medications - Will avoid IV fluids for now - Full code, discussed that with him in detail - Answered all the patient's questions
[2025-04-17] MEDS: CARVEDILOL 12.5 MG TABLET 25 MG PO ×2 (18:32→22:50)
[2025-04-17] MEDS: ERTAPENEM SODIUM 1 GM in 0.9 % SODIUM CHLORIDE 50 ML IV (20:28)
[2025-04-17] MEDS: APIXABAN 5 MG TABLET PO (22:50)
[2025-04-17] MEDS: FERROUS SULFATE 325 MG TABLET PO (22:50)
[2025-04-17] MEDS: LOSARTAN POTASSIUM 25 MG TABLET PO (22:50)
[2025-04-17] MEDS: REMDESIVIR 200 MG in 0.9 % SODIUM CHLORIDE 250 ML 250 MG IV (22:51)
[2025-04-18] VITALS (17 sets, daily range): BP systolic 127–154; BP diastolic 85–101; PULSE 58–114; TEMP 36.4–36.8; O2SAT 95–97; BMI 26.7
[2025-04-18 05:47] LABS: Hematocrit 29.4 % (42.0-54.0); Hemoglobin 8.5 g/dL (14.0-18.0); Immature Granulocytes Abs Auto 0.01 10^3/uL (0.00-0.03); Immature Granulocytes Pct Auto 0.3 % (0.0-0.5); Lymphocytes Absolute Auto 0.7 10^3/uL (1.2-3.8); Mean Corpuscular HGB Conc 28.9 g/dL (29.9-35.2); Mean Corpuscular Hemoglobin 21.8 pg (25.9-34.0); Mean Corpuscular Volume 75.4 fL (80.0-94.0); Platelet Count 153 10^3/uL (150-450); Red Blood Count 3.90 10^6/uL (4.70-6.10); White Blood Count 4.0 10^3/uL (4.0-11.0)
[2025-04-18] MEDS: PANTOPRAZOLE SODIUM 40 MG TABLET.DR PO (06:07)
[2025-04-18 06:12] LABS: Alanine Aminotransferase 25 U/L (16-63); Albumin Globulin Ratio 0.7; Albumin Level 2.7 g/dL (3.4-5.0); Alkaline Phosphatase 88 U/L (46-116); Anion Gap 13.2; Aspartate Amino Transferase 17 U/L (15-37); Blood Urea Nitrogen 21.0 mg/dL (7.0-18.0); Calcium 8.6 mg/dL (8.5-10.1); Carbon Dioxide 21.7 mmol/L (21.0-32.0); Chloride 108 mmol/L (98-107); Estimated GFR (African America 52 (>=60 mL/min/1.73m^2); Estimated GFR (Non-African Ame 43 (>=60 mL/min/1.73m^2); Globulin 4.0 g/dL; Glucose 101 mg/dL (74-106); Magnesium 1.8 mg/dL (1.8-2.4); Potassium 3.9 mmol/L (3.5-5.1); Sodium 139 mmol/L (136-145); Total Protein 6.7 g/dL (6.4-8.2)
[2025-04-18] MEDS: APIXABAN 5 MG TABLET PO ×2 (08:35→22:05)
[2025-04-18] MEDS: CARVEDILOL 12.5 MG TABLET 25 MG PO ×2 (08:35→22:05)
[2025-04-18] MEDS: FUROSEMIDE 40 MG TABLET PO (08:35)
[2025-04-18] MEDS: TAMSULOSIN HCL 0.4 MG CAPSULE PO (08:35)
[2025-04-18] MEDS: ATORVASTATIN CALCIUM 40 MG TABLET PO (08:35)
[2025-04-18] MEDS: THIAMINE MONONITRATE (VIT B1) 100 MG TABLET PO (08:35)
[2025-04-18] MEDS: FOLIC ACID 1 MG TABLET PO (08:35)
[2025-04-18] MEDS: LACTULOSE 10 GM/15 ML UD CUP PO (08:35)
[2025-04-18] MEDS: LOSARTAN POTASSIUM 25 MG TABLET PO (08:35)
[2025-04-18] MEDS: FERROUS SULFATE 325 MG TABLET PO ×2 (08:35→22:05)
--- NOTE | 2025-04-18 10:05 | CM.NOTE ---
Rounds made with Dr. Valle, discussed with pt diagnosis and plan of care. No discharge today, plan to discharge tomorrow. PT and OT will evaluate pt for discharge planning.
--- NOTE | 2025-04-18 11:09 | P.IMPN_ITS ---
Progress Note: A&P Assessment and Plan (1) COVID-19 virus infection: (2) Heart failure with reduced ejection fraction, NYHA class III: (3) Atrial fibrillation with RVR: Plan Generalized weakness in the setting of viral illness COVID-19 Component of A-fib with RVR contributing to his weakness? Patient is not in any acute exacerbation of his known systolic and diastolic CHF NYHA class III, stage C Improved functional status UTI due to Staph aureus and pantoea - Admit patient to medical floor with telemetry - Give the patient his p.o. dose of carvedilol, if not controlled we will start him on Cardizem drip for his A-fib with RVR - Otherwise continue with his Eliquis - Start remdesivir, consulted pharmacy to help with dosing of the medication his CKD - Patient is not hypoxic and is not on any oxygen so he does not qualify for dexamethasone - I did reconcile his medications - Will avoid IV fluids for now - Full code, discussed that with him in detail - Answered all the patient's questions 04/18/2025 reviewed the patient's symptoms today as well as his lab work and orders. I discussed the plan with him and his daughter. Patient is independent in the room walking and helping himself. I spoke to nursing team as well PT/OT pending however I do not think the patient will need higher level of care. I did relay that to the patient's daughter and she is okay with the plan. He is on IV remdesivir given his risk factors. He is not hypoxic so I will refrain from giving any dexamethasone for now. Will give another dose of IV remdesivir tomorrow and we can discharge him after that. Discussed the plan in detail with the patient's daughter. Explained to her the disposition plan as well as everything else. She tells me that his catheter was changed last week when he was in the hospital. She says that he follows with a urologist. I explained to her the urine culture results and that he is on IV antibiotic for now. Tomorrow I will switch him to oral antibiotic, most likely will switch him to Augmentin. Internal Medicine - PN: Subj Subjective Interval history: Pt seen and examined at bedside. He states that he feels better today. No events overnight. Labs showing improvement. He is on ertapenem 1 g every 24 hours IV after his urine cultures were reviewed last evening. Exam Narrative Exam Narrative: [pt is awake and alert. oriented to place, time and person, well-nourished, sitting up in chair not in acute distress. Very pleasant cooperative on my exam HEENT: [place] conjunctiva and NL buccal mucosa Neck: Supple, no tenderness, no JVD, no lymphadenopathy, no thyromegaly Head: Atraumatic normocephalic Chest: CTA no DTP, no wheezes no crackles. Patient saturating 100% on room air. He is not in any respiratory distress Heart: Irregular heart rhythm with tachycardia, normal S1 and S2 no murmurs Abd: Soft, no tenderness, no rebound and no rigidity. No signs of acute abdomen. No organomegaly LE: No lower extremity edema, intact peripheral pulses bilateral Neuro: A A O. Nl speech, comprehension and attention. Nl and symetrical motor and tone examination through out Constitutional Vital Signs, click to edit/add: Last Vital Signs Temp 97.8 F 04/18/25 07:56 Pulse 85 04/18/25 09:57 Resp 23 H 04/18/25 07:56 BP 154/101 H 04/18/25 07:56 Pulse Ox 97 04/18/25 07:56 O2 Del Method Room Air 04/18/25 07:56 Internal Medicine - PN: Obj Da Labs Labs: Laboratory Results - last 24 hr 04/17/25 04/17/25 04/17/25 14:41 14:47 16:26 WBC 5.2 RBC 3.98 L Hgb 8.6 L Hct 30.1 L MCV 75.6 L MCH 21.6 L MCHC 28.6 L RDW 29.4 H Plt Count 192 MPV 10.1 Neut % (Auto) 71.2 Lymph % (Auto) 14.3 L [place] % (Auto) 9.9 Eos % (Auto) 2.3 Baso % (Auto) 2.1 H Neut # (Auto) 3.7 Lymph # (Auto) 0.7 L [place] # (Auto) 0.5 Eos # (Auto) 0.1 Baso # (Auto) 0.1 Abs Immat Gran (auto) 0.01 Imm/Tot Granulo (auto) 0.2 PT 12.7 H INR 1.23 Sodium 140 Potassium 4.0 Chloride 108 H Carbon Dioxide 22.1 Anion Gap 13.9 BUN 22.0 H Creatinine 1.46 H Est GFR ( Amer) 58 L Est GFR (Non-Af Amer) 48 L BUN/Creatinine Ratio 15.1 Glucose 100 Lactate 1.1 Calcium 8.7 Magnesium 2.0 Total Bilirubin 0.7 AST 24 ALT 30 Alkaline Phosphatase 111 Total Creatine Kinase 61 CK-MB (CK-2) 2.35 Myoglobin 50 Troponin I High Sens 25.3 NT-Pro-B Natriuret Pep 51301.0 H* Total Protein 7.5 Albumin 3.0 L Globulin 4.5 Albumin/Globulin Ratio 0.7 Lipase 74.0 TSH 2.928 Urine Color Yellow Urine Clarity Clear Urine pH 6.0 Ur Specific [place] 1.025 Urine Protein 30 A Urine Glucose (UA) Negative Urine Ketones Negative Urine Occult Blood Moderate A Urine Nitrite Negative Urine Bilirubin Negative Urine Urobilinogen 1.0 Ur Leukocyte Esterase Trace A Urine RBC 10-20 A Urine WBC 2-5 A Ur Squamous Epith Cells None seen Urine Crystals None seen Urine Bacteria Moderate A Urine Casts None seen Urine Mucus None seen Ur Culture Indicated? Yes-[facility] [place] Influenza Type A Ag Negative Influenza Type B Ag Negative SARS-CoV-2 Ag (CV2AG) Positive A 04/18/25 05:26 WBC 4.0 RBC 3.90 L Hgb 8.5 L Hct 29.4 L MCV 75.4 L MCH 21.8 L MCHC 28.9 L RDW 29.5 H Plt Count 153 MPV 10.1 Neut % (Auto) 68.8 Lymph % (Auto) 18.3 L [place] % (Auto) 7.8 Eos % (Auto) 2.8 Baso % (Auto) 2.0 Neut # (Auto) 2.8 Lymph # (Auto) 0.7 L [place] # (Auto) 0.3 Eos # (Auto) 0.1 Baso # (Auto) 0.1 Abs Immat Gran (auto) 0.01 Imm/Tot Granulo (auto) 0.3 PT INR Sodium 139 Potassium 3.9 Chloride 108 H Carbon Dioxide 21.7 Anion Gap 13.2 BUN 21.0 H Creatinine 1.59 H Est GFR ( Amer) 52 L Est GFR (Non-Af Amer) 43 L BUN/Creatinine Ratio 13.2 Glucose 101 Lactate Calcium 8.6 Magnesium 1.8 Total Bilirubin 0.6 AST 17 ALT 25 Alkaline Phosphatase 88 Total Creatine Kinase CK-MB (CK-2) Myoglobin Troponin I High Sens NT-Pro-B Natriuret Pep Total Protein 6.7 Albumin 2.7 L Globulin 4.0 Albumin/Globulin Ratio 0.7 Lipase TSH Urine Color Urine Clarity Urine pH Ur Specific [place] Urine Protein Urine Glucose (UA) Urine Ketones Urine Occult Blood Urine Nitrite Urine Bilirubin Urine Urobilinogen Ur Leukocyte Esterase Urine RBC Urine WBC Ur Squamous Epith Cells Urine Crystals Urine Bacteria Urine Casts Urine Mucus Ur Culture Indicated? Influenza Type A Ag Influenza Type B Ag SARS-CoV-2 Ag (CV2AG) Urinary Catheter Management Urinary Catheter Management Urethral: Cath placed during this visit: no
--- NOTE | 2025-04-18 12:53 | SWNOTE1 ---
SW reviewed PT/OT notes and pt has no anticipated discharge needs at this time. SW to follow as needed.
--- NOTE | 2025-04-18 14:39 | CM.NOTE ---
Important Message from [employer] was reviewed with the patient. He signed and a copy was placed on the patients chart. Original was returned to the patient.
[2025-04-18] MEDS: 0.9 % SODIUM CHLORIDE 250 ML 10 ML IV (17:15)
[2025-04-18] MEDS: ERTAPENEM SODIUM 1 GM in 0.9 % SODIUM CHLORIDE 50 ML IV (22:04)
[2025-04-19] VITALS (14 sets, daily range): BP systolic 138–156; BP diastolic 86–103; PULSE 65–96; TEMP 36.5–36.7; O2SAT 88–98
[2025-04-19] MEDS: PANTOPRAZOLE SODIUM 40 MG TABLET.DR PO (06:15)
[2025-04-19 06:38] LABS: Hematocrit 30.1 % (42.0-54.0); Hemoglobin 8.7 g/dL (14.0-18.0); Mean Corpuscular HGB Conc 28.9 g/dL (29.9-35.2); Mean Corpuscular Hemoglobin 21.7 pg (25.9-34.0); Mean Corpuscular Volume 75.1 fL (80.0-94.0); Platelet Count 168 10^3/uL (150-450); Red Blood Count 4.01 10^6/uL (4.70-6.10); White Blood Count 4.0 10^3/uL (4.0-11.0)
[2025-04-19 06:53] LABS: Alanine Aminotransferase 22 U/L (16-63); Albumin Globulin Ratio 0.7; Albumin Level 2.6 g/dL (3.4-5.0); Alkaline Phosphatase 92 U/L (46-116); Anion Gap 14.1; Aspartate Amino Transferase 17 U/L (15-37); Blood Urea Nitrogen 23.0 mg/dL (7.0-18.0); Calcium 8.3 mg/dL (8.5-10.1); Carbon Dioxide 23.7 mmol/L (21.0-32.0); Chloride 109 mmol/L (98-107); Estimated GFR (African America 45 (>=60 mL/min/1.73m^2); Estimated GFR (Non-African Ame 37 (>=60 mL/min/1.73m^2); Globulin 3.9 g/dL; Glucose 102 mg/dL (74-106); Magnesium 1.7 mg/dL (1.8-2.4); Potassium 3.8 mmol/L (3.5-5.1); Sodium 143 mmol/L (136-145); Total Protein 6.5 g/dL (6.4-8.2)
[2025-04-19 07:20] LABS: Band Neutrophils Absolute 0.0 10^3/uL (0.0-0.3); Basophils Abs Manual 0.08 10^3/uL (0.00-0.10); Basophils Percent Manual 2.0 % (0.2-2.0); Eosinophils Absolute Manual 0.12 10^3/uL (0.00-0.70); Eosinophils Percent Manual 3.0 % (0.9-7.0); Lymphocytes Absolute Manual 0.80 10^3/uL (1.20-3.80); Lymphocytes Percent Manual 20.0 % (20.5-60.0); Monocytes Absolute Manual 0.16 10^3/uL (0.30-0.80); Monocytes Percent Manual 4.0 % (1.7-12.0); Segmented Neut Absolute Manual 2.80 10^3/uL (1.4-6.5); Segmented Neutrophils % Manual 70.0 (43.0-75.0)
[2025-04-19 07:21] LABS: Anisocytosis 1+; Hypochromasia 2+; Microcytosis 1+; Ovalocytes 1+; Poikilocytosis 1+
[2025-04-19] MEDS: THIAMINE MONONITRATE (VIT B1) 100 MG TABLET PO (08:13)
[2025-04-19] MEDS: TAMSULOSIN HCL 0.4 MG CAPSULE PO (08:13)
[2025-04-19] MEDS: LACTULOSE 10 GM/15 ML UD CUP PO (08:13)
[2025-04-19] MEDS: FUROSEMIDE 40 MG TABLET PO (08:13)
[2025-04-19] MEDS: LOSARTAN POTASSIUM 25 MG TABLET PO (08:13)
[2025-04-19] MEDS: ATORVASTATIN CALCIUM 40 MG TABLET PO (08:13)
[2025-04-19] MEDS: APIXABAN 5 MG TABLET PO (08:14)
[2025-04-19] MEDS: CARVEDILOL 12.5 MG TABLET 25 MG PO (08:14)
[2025-04-19] MEDS: FOLIC ACID 1 MG TABLET PO (08:14)
[2025-04-19] MEDS: FERROUS SULFATE 325 MG TABLET PO (08:14)
--- NOTE | 2025-04-19 10:36 | PM.DS1 ---
DS: Providers Provider Date of admission: 04/17/25 17:40 Primary care physician: Rajesh Nam MD Consults: 04/17/25 18:23 Consult to Pharmacy Routine Consulting Provider: Reason for consultation: remdesivir dosing for 3 days Occupational Therapy Eval and Treat Routine Reason for consultation: placement Physical Therapy Eval and Treat Routine Reason for consultation: placement Anticipated date of discharge: 04/19/25 DS: Diagnosis Discharge Diagnosis (1) COVID-19 virus infection: (2) Heart failure with reduced ejection fraction, NYHA class III: (3) Atrial fibrillation with RVR: Plan As above DS: Summary Hospital Course Hospital Course: This is a 69-year-old male with past medical history of systolic 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 History obtained from the patient, ED staff, chart review. Patient states that he was here less than a week ago for extensive hospitalization fluting A-fib with RVR with anemia as well as heart failure exacerbation. Patient states that over the last few days he has been having dry cough however this morning woke up very tired and did not feel like doing anything. He states that his weakness is 6 severe enough that he could not leave the bed. He also did not have any appetite. He denies any nausea or vomiting or chest pain or fever or chills or change in urinary or bowel habits. He denies any dizziness or syncope. In the ED, patient was in A-fib with RVR between 100 and 130. His blood pressure was elevated. He was satting 100% on room air he was afebrile. His CBC in the ED included a hemoglobin of 8.6 which is very stable compared to his previous previous labs. His white blood cell count and platelet count were normal. His chemistry showed BUN of 22 creatinine 1.46 improved compared to her previous hospitalization as well. Electrolytes were normal. His proBNP was 15,762, however it was 17,639 when he was discharged on 04/06/2025. Patient did not show any signs of fluid overload on my exam. His chest x-ray was read as fluid overload however it is similar to his last x-ray when he was here. His EKG on presentation in the ED showed A-fib with controlled ventricular response. And right bundle branch block QTc of 447 ms. he was found to have COVID-positive. Patient to be admitted under hospital service for further workup and management. Generalized weakness in the setting of viral illness COVID-19 Component of A-fib with RVR contributing to his weakness? Patient is not in any acute exacerbation of his known systolic and diastolic CHF NYHA class III, stage C Debility, functional decline, assess for need for higher level of care? UTI - Admit patient to medical floor with telemetry - Give the patient his p.o. dose of carvedilol, if not controlled we will start him on Cardizem drip for his A-fib with RVR - Otherwise continue with his Eliquis - Start remdesivir, consulted pharmacy to help with dosing of the medication his CKD - Patient is not hypoxic and is not on any oxygen so he does not qualify for dexamethasone - I did reconcile his medications - Will avoid IV fluids for now - Full code, discussed that with him in detail - Answered all the patient's questions Pt has a chronic indwelling mendez for over a year likely due to BPH, his urine culture is from 04/06/2025 is growing staph aureus and pantoea species. Given his weakness and leukocytosis, and after reviewing the MICU, will start ertapenem IV 1 gram q24 hours for now 04/18/2025 reviewed the patient's symptoms today as well as his lab work and orders. I discussed the plan with him and his daughter. Patient is independent in the room walking and helping himself. I spoke to nursing team as well PT/OT pending however I do not think the patient will need higher level of care. I did relay that to the patient's daughter and she is okay with the plan. He is on IV remdesivir given his risk factors. He is not hypoxic so I will refrain from giving any dexamethasone for now. Will give another dose of IV remdesivir tomorrow and we can discharge him after that. Discussed the plan in detail with the patient's daughter. Explained to her the disposition plan as well as everything else. She tells me that his catheter was changed last week when he was in the hospital. She says that he follows with a urologist. I explained to her the urine culture results and that he is on IV antibiotic for now. Tomorrow I will switch him to oral antibiotic, most likely will switch him to Augmentin 04/19/2025 Pt receiving his 3 dose of ertapenem, and his 3rd dose of remdesivir today. He tells me he is doing much better, ambulating, no cough, or fever or chills or nausea or vomiting or SOB. He wants to go home. Pt is on RA, he denies any urinary symptoms. He will be discharged today on Augmentin for another 4 days, to complete 1 week course. Discussed the plan with him today, and Also spoke to his daughter over the phone yesterday, and she is in agreement with the plan. Status at Discharge Overall status at discharge: patient is not back to baseline Time Spent with Patient Time attestation: Total time spent providing and/or coordinating discharge services: Time spent: greater than 30 minutes Exam Constitutional Vital Signs, click to edit/add: Last Vital Signs Temp 97.9 F 04/19/25 08:05 Pulse 83 04/19/25 10:00 Resp 18 04/19/25 08:05 BP 156/103 H 04/19/25 08:05 Pulse Ox 95 04/19/25 08:05 O2 Del Method Room Air 04/19/25 08:05 DS: Data Data Completed and Pending Labs on day of discharge: Labs from last 24 hours 04/19/25 06:26 WBC 4.0 RBC 4.01 L Hgb 8.7 L Hct 30.1 L MCV 75.1 L MCH 21.7 L MCHC 28.9 L RDW 29.4 H Plt Count 168 MPV 10.5 Seg Neuts % (Manual) 70.0 Band Neutrophils % 1.0 Lymphocytes % (Manual) 20.0 L Monocytes % (Manual) 4.0 Eosinophils % (Manual) 3.0 Basophils % (Manual) 2.0 Neutrophils # (Manual) 2.80 Band Neutrophils # 0.0 Lymphocytes # (Manual) 0.80 L Monocytes # (Manual) 0.16 L Eosinophils # (Manual) 0.12 Basophils # (Manual) 0.08 Hypochromasia 2+ Poikilocytosis 1+ Anisocytosis 1+ Microcytosis 1+ Ovalocytes 1+ Sodium 143 Potassium 3.8 Chloride 109 H Carbon Dioxide 23.7 Anion Gap 14.1 BUN 23.0 H Creatinine 1.81 H Est GFR ( Amer) 45 L Est GFR (Non-Af Amer) 37 L BUN/Creatinine Ratio 12.7 Glucose 102 Calcium 8.3 L Magnesium 1.7 L Total Bilirubin 0.6 AST 17 ALT 22 Alkaline Phosphatase 92 Total Protein 6.5 Albumin 2.6 L Globulin 3.9 Albumin/Globulin Ratio 0.7 Discharge Plan Discharge Disposition: Home, Self-Care Discharge Medications: New amoxicillin-pot clavulanate [Augmentin] 500-125 mg tablet 1 tab PO BID 5 Days Qty: 10 0RF Continued folic acid 1 mg tablet 1 mg PO DAILY carvedilol 12.5 mg tablet 25 mg PO BID Rx Instructions: must administer with a meal/food furosemide 40 mg tablet 40 mg PO DAILY Eliquis 5 mg tablet 5 mg PO BID tamsulosin 0.4 mg capsule 0.4 mg PO DAILY atorvastatin 40 mg tablet 40 mg PO DAILY lactulose 10 gram/15 mL solution 15 ml PO DAILY thiamine HCl (vitamin B1) [Vitamin B-1] 100 mg tablet 100 mg PO DAILY pantoprazole 40 mg Tablet,Delayed Release (Dr/Ec) 40 mg PO DAILY Qty: 30 1RF losartan 25 mg Tablet 25 mg PO QD Qty: 60 1RF potassium chloride 10 mEq capsule, extended release 10 meq PO DAILY Qty: 0 0RF ferrous sulfate 325 mg (65 mg iron) tablet 325 mg PO BID Qty: 60 2RF Discontinued doxycycline hyclate 100 mg tablet 100 mg PO BID 7 Days Qty: 14 0RF Print Language: Chadian Forms: Portal Instructions Follow Up Appointments: follow up Dr Nam Apr @1:15 phone [phone] [facility] ([facility])
[2025-04-19] MEDS: MAGNESIUM SULFATE/D5W 1 GM/100 ML PREMIX IV (11:15)
--- NOTE | 2025-04-21 08:23 | CM.NOTE ---
Julio txt sent to Dr. Nam of final urine culture.
--- NOTE | 2025-04-21 14:14 | CM.DCFOLLOWU ---
Person spoke with: Johnathan's daughter How are you feeling? Better How is your pain? Better Did you understand your discharge instructions? Yes Do you have any questions about your discharge instructions? No Were you given any prescriptions at discharge? Yes Were you able to get your prescriptions filled? Yes Do you understand how to take your medications as ordered? Yes Do you have any questions about your follow up appointment and do you plan to keep your follow up appointment? No questions. Yes they plan on keeping the follow up appt. Is there anything else that you would like to discuss? No Questions/Comments/Concerns/Other:
== END 2025-04-19 16:45 | disposition home or self-care (01) | DRG 178 ==
LOC: ER 14:34 → MS 17:57
PROVIDERS: Physician Assistant; Admitting Provider Student in an Organized Health Care Education/Training Program; Emergency Provider Emergency Medicine; PCP Family Medicine; Visit Provider Student in an Organized Health Care Education/Training Program
DX: U07.1 COVID-19 (principal); I13.0 Hypertensive heart and chronic kidney disease with heart failure and stage 1 through stage 4 chronic kidney disease, or unspecified chronic kidney disease; T83.511A Infection and inflammatory reaction due to indwelling urethral catheter, initial encounter; N39.0 Urinary tract infection, site not specified; I50.42 Chronic combined systolic (congestive) and diastolic (congestive) heart failure; I48.91 Unspecified atrial fibrillation; Z79.01 Long term (current) use of anticoagulants; N40.0 Benign prostatic hyperplasia without lower urinary tract symptoms; N18.30 Chronic kidney disease, stage 3 unspecified; B95.61 Methicillin susceptible Staphylococcus aureus infection as the cause of diseases classified elsewhere
CPT/HCPCS: 36415; 71045; 80053; 81001; 81003; 82550; 82553; 83605; 83690; 83735; 83874; 83880; 84443; 84484; 85007; 85025; 85027; 85610; 87086; 87088; 87186; 87804; 87811; 93005; 97165; 99285; J0248; J1335; J3475